=== PATIENT | female | born 1970 | race Caucasian/White ===

== ENCOUNTER → 2019-12-05 13:05 | Outpatient (BNVA) | payer OTHER, SELFPAY | PROVIDERS: PCP Internal Medicine; Referring Provider Internal Medicine; Visit Provider Internal Medicine Gastroenterology | DX: R10.32 Left lower quadrant pain (principal); R19.7 Diarrhea, unspecified; K59.00 Constipation, unspecified; K62.5 Hemorrhage of anus and rectum; K21.9 Gastro-esophageal reflux disease without esophagitis; K22.4 Dyskinesia of esophagus; M79.7 Fibromyalgia | CPT/HCPCS: 99212 ==

== ENCOUNTER 2019-12-11 10:09 | Outpatient (REF) | payer OTHER, SELFPAY | END 2019-12-11 10:10 | disposition home or self-care (01) | LOC: HO.MDS 10:09 | PROVIDERS: PCP Internal Medicine; Visit Provider Internal Medicine Pulmonary Disease | DX: J45.909 Unspecified asthma, uncomplicated (principal) | CPT/HCPCS: 96372 ==

== ENCOUNTER 2019-12-11 10:37 | Outpatient (REF) | payer OTHER, SELFPAY | END 2019-12-11 10:38 | disposition home or self-care (01) | LOC: HO.LAB 10:37 | PROVIDERS: PCP Internal Medicine; Visit Provider Internal Medicine Gastroenterology | DX: Z13.89 Encounter for screening for other disorder (principal) ==

== ENCOUNTER 2019-12-25 11:41 | Outpatient (REF) | payer OTHER, SELFPAY | END 2019-12-25 11:42 | disposition home or self-care (01) | LOC: HO.MDS 11:41 | PROVIDERS: Visit Provider Internal Medicine Pulmonary Disease | DX: J45.909 Unspecified asthma, uncomplicated (principal) | CPT/HCPCS: J2357 ==

== ENCOUNTER → 2019-12-29 09:12 | Outpatient (BNVA) | payer OTHER, SELFPAY | PROVIDERS: PCP Internal Medicine; Referring Provider Internal Medicine; Visit Provider Internal Medicine Gastroenterology | DX: K59.00 Constipation, unspecified (principal); K21.9 Gastro-esophageal reflux disease without esophagitis; K22.4 Dyskinesia of esophagus; R19.7 Diarrhea, unspecified; K86.2 Cyst of pancreas | CPT/HCPCS: 99212 ==

== ENCOUNTER 2020-01-09 | Outpatient (REF) | payer OTHER, SELFPAY | END 2020-01-09 00:01 | disposition home or self-care (01) | LOC: HO.MDS | PROVIDERS: Visit Provider Internal Medicine Pulmonary Disease | DX: J45.40 Moderate persistent asthma, uncomplicated (principal) | CPT/HCPCS: 96372; J2357 ==

== ENCOUNTER 2020-01-12 08:31 | Outpatient (REF) | payer OTHER, SELFPAY ==
[2020-01-12 10:13] LABS: Free T4 (Free Thyroxine) 0.95 ng/dL (0.71-1.85); Thyroid Stimulating Hormone 13.86 uIU/mL (0.32-4.0); Vitamin D 25-OH Total 12.8 ng/mL (>30)
== END 2020-01-12 08:32 | disposition home or self-care (01) ==
LOC: HO.LAB 08:31
PROVIDERS: PCP Internal Medicine; Visit Provider Internal Medicine
DX: E89.0 Postprocedural hypothyroidism (principal); E04.2 Nontoxic multinodular goiter; E55.9 Vitamin D deficiency, unspecified
CPT/HCPCS: 82306; 84439; 84443

== ENCOUNTER 2020-01-26 09:40 | Outpatient (REF) | payer OTHER, SELFPAY | END 2020-01-26 09:41 | disposition home or self-care (01) | LOC: HO.MDS 09:40 | PROVIDERS: Visit Provider Internal Medicine Pulmonary Disease | DX: Z13.89 Encounter for screening for other disorder (principal) ==

== ENCOUNTER 2020-01-29 | Outpatient (REF) | payer OTHER, SELFPAY | END 2020-01-29 00:01 | disposition home or self-care (01) | LOC: HO.MDS | PROVIDERS: PCP Internal Medicine; Visit Provider Internal Medicine Pulmonary Disease | DX: J45.40 Moderate persistent asthma, uncomplicated (principal) | CPT/HCPCS: 96372; J2357 ==

== ENCOUNTER 2020-02-11 | Outpatient (REF) | payer OTHER, SELFPAY | END 2020-02-11 00:01 | disposition home or self-care (01) | LOC: HO.MDS | PROVIDERS: Visit Provider Internal Medicine Pulmonary Disease | DX: J45.40 Moderate persistent asthma, uncomplicated (principal) | CPT/HCPCS: 96372; J2357 ==

== ENCOUNTER 2020-02-26 07:47 | Outpatient (REF) | payer OTHER, SELFPAY ==
[2020-02-26 09:43] LABS: CDIFF Ag Negative (Negative); CDIFF Internal ctrl Dots and bkg OK (V); CDiff Toxin Negative (Negative)
[2020-02-26 09:53] LABS: Free T4 (Free Thyroxine) < 0.40 ng/dL (0.71-1.85); Thyroid Stimulating Hormone 46.36 uIU/mL (0.32-4.0); Vitamin D 25-OH Total 11.5 ng/mL (>30)
[2020-02-26 17:08] LABS: Alanine Aminotransferase 24 U/L (0-31); Albumin Level 4.3 g/dL (3.5-5.0); Alkaline Phosphatase 64 U/L (39-117); Anion Gap 14 (12-20); Aspartate Amino Transferase 24 U/L (5-31); Bilirubin Total 0.3 mg/dL (0.0-1.0); Blood Urea Nitrogen 16 mg/dL (9-16); Calcium 8.9 mg/dL (8.4-10.2); Carbon Dioxide 26 mmol/L (22-29); Chloride 103 mmol/L (96-108); Cholesterol 253 mg/dL; Estimated Glomerular Filt Rate > 60; Glucose Random 83 mg/dL (60-115); HDL Cholesterol 60 mg/dL; LDL Cholesterol Calculated 162 mg/dl; Potassium 4.2 mmol/l (3.3-5.1); Sodium 139 mmol/L (135-145); Total Protein 7.4 g/dL (6.5-8.0); Triglycerides 159 mg/dL
[2020-02-26 17:46] LABS: Folate 11.6 ng/mL (> or = 4.0); Vitamin B12 343 pg/mL (200-900)
== END 2020-02-26 07:48 | disposition home or self-care (01) ==
LOC: HO.MDS 07:47
PROVIDERS: Absent Provider Internal Medicine Gastroenterology; PCP Internal Medicine; Referring Provider Internal Medicine; Visit Provider Internal Medicine Pulmonary Disease
DX: J45.40 Moderate persistent asthma, uncomplicated (principal); R19.7 Diarrhea, unspecified; E89.0 Postprocedural hypothyroidism; E55.9 Vitamin D deficiency, unspecified
CPT/HCPCS: 80053; 80061; 82306; 82607; 82746; 84439; 84443; 87045; 87046; 87324; 87449; 96372; J2357

== ENCOUNTER → 2020-03-02 15:14 | Outpatient (BNVA) | payer OTHER, SELFPAY | PROVIDERS: PCP Internal Medicine; Referring Provider Internal Medicine; Visit Provider Student in an Organized Health Care Education/Training Program | DX: Z76.89 Persons encountering health services in other specified circumstances (principal) ==

== ENCOUNTER → 2020-03-04 10:52 | Outpatient (BNVA) | payer OTHER, SELFPAY | PROVIDERS: PCP Internal Medicine; Referring Provider Internal Medicine; Visit Provider Internal Medicine Gastroenterology | DX: Z76.89 Persons encountering health services in other specified circumstances (principal) ==

== ENCOUNTER → 2020-04-05 08:55 | Outpatient (BNVA) | payer OTHER, SELFPAY | PROVIDERS: PCP Internal Medicine; Visit Provider Internal Medicine | DX: E89.0 Postprocedural hypothyroidism (principal); E04.2 Nontoxic multinodular goiter; E55.9 Vitamin D deficiency, unspecified | CPT/HCPCS: 99212 ==

== ENCOUNTER 2020-04-05 09:40 | Outpatient (REF) | payer OTHER, SELFPAY ==
[2020-04-05 10:59] LABS: Free T4 (Free Thyroxine) 1.98 ng/dL (0.71-1.85); Thyroid Stimulating Hormone 0.06 uIU/mL (0.32-4.0); Vitamin D 25-OH Total 15.8 ng/mL (>30)
[2020-04-06 07:57] LABS: Triiodothyronine T3 Total 146 ng/dL (76-181)
[2020-04-06 11:52] LABS: Immunoglobulin A 334 mg/dL (47-310)
[2020-04-07 11:32] LABS: Transglutaminase Ab IgG 3 U/mL
[2020-04-10 14:17] LABS: Endomysial IgA Antibody Negative (Negative)
== END 2020-04-05 09:41 | disposition home or self-care (01) ==
LOC: HO.10HDL 09:40
PROVIDERS: Visit Provider Internal Medicine
DX: E55.9 Vitamin D deficiency, unspecified (principal); E89.0 Postprocedural hypothyroidism; E04.2 Nontoxic multinodular goiter
CPT/HCPCS: 36415; 82306; 82784; 83516; 84439; 84443; 84480; 86255; 86256

== ENCOUNTER 2020-04-07 07:39 | Outpatient (REF) | payer OTHER, SELFPAY | END 2020-04-07 07:40 | disposition home or self-care (01) | LOC: HO.MDS 07:39 | PROVIDERS: PCP Internal Medicine; Visit Provider Internal Medicine Pulmonary Disease | DX: J45.40 Moderate persistent asthma, uncomplicated (principal) | CPT/HCPCS: 96372; J2357 ==

== ENCOUNTER 2020-04-21 07:27 | Outpatient (REF) | payer OTHER, SELFPAY | END 2020-04-21 07:28 | disposition home or self-care (01) | LOC: HO.MDS 07:27 | PROVIDERS: PCP Internal Medicine; Visit Provider Internal Medicine Pulmonary Disease | DX: J45.50 Severe persistent asthma, uncomplicated (principal) | CPT/HCPCS: 96372; J2357 ==

== ENCOUNTER 2020-04-21 08:13 | Outpatient (REF) | payer OTHER, SELFPAY ==
[2020-04-21 09:02] LABS: MANUAL DIFF FLAG NO
[2020-04-21 09:05] LABS: Basophils Percent Auto 0.3 % (0-2); Eosinophils Absolute Auto 0.2 X10*3/uL (0.0-0.4); Eosinophils Percent Auto 2.7 % (0-4); Hematocrit 43.1 % (37-47); Hemoglobin 14.4 g/dl (12.0-16.0); Imm Gran Abs Auto 0.02 X10*3/uL (0.00-0.03); Imm Gran Pct Auto 0.3 % (0.0-0.4); Lymphocytes Absolute Auto 1.9 X10*3/uL (1.2-4.9); Lymphocytes Percent Auto 24.6 % (20-40); Mean Corpuscular HGB Conc 33.4 g/dl (31.0-35.0); Mean Corpuscular Hemoglobin 30.6 pg (27.0-33.0); Mean Corpuscular Volume 91.5 fL (80-98); Mean Platelet Volume 10.4 fL (9.4-12.3); Monocytes Absolute Auto 0.5 X10*3/uL (0.1-1.2); Monocytes Percent Auto 6.9 % (2-11); Neutrophils Absolute Auto 5.1 X10*3/uL (2.0-8.3); Neutrophils Percent Auto 65.2 % (45-73); Platelet Count 287 X10*3/uL (160-400); Red Blood Count 4.71 X10*6/uL (4.20-5.50); Red Cell Distribution Width 12.1 % (11.0-16.0); White Blood Count 7.8 X10*3/uL (4.8-10.8)
[2020-04-21 09:48] LABS: Alanine Aminotransferase 22 U/L (0-31); Albumin Level 4.4 g/dL (3.5-5.0); Alkaline Phosphatase 62 U/L (39-117); Anion Gap 12 (12-20); Aspartate Amino Transferase 19 U/L (5-31); Bilirubin Total 0.3 mg/dL (0.0-1.0); Blood Urea Nitrogen 12 mg/dL (9-16); Carbon Dioxide 28 mmol/L (22-29); Chloride 104 mmol/L (96-108); Cholesterol 230 mg/dL; Estimated Glomerular Filt Rate > 60; Glucose Random 95 mg/dL (60-115); HDL Cholesterol 54 mg/dL; LDL Cholesterol Calculated 152 mg/dl; Potassium 4.1 mmol/L (3.3-5.1); Sodium 140 mmol/L (135-145); Total Protein 7.7 g/dL (6.5-8.0); Triglycerides 124 mg/dL
[2020-04-21 10:00] LABS: Calcium 9.6 mg/dL (8.4-10.2)
[2020-04-21 10:01] LABS: Estimated Average Glucose 100 mg/dL; Hemoglobin A1c % 5.1 %
[2020-04-21 10:06] LABS: Vitamin D 25-OH Total 14.2 ng/mL (>30)
[2020-04-22 19:33] LABS: Folate 14.7 ng/mL (> or = 4.0); Vitamin B12 416 pg/mL (200-900)
== END 2020-04-21 08:14 | disposition home or self-care (01) ==
LOC: HO.LAB 08:13
PROVIDERS: PCP Internal Medicine; Visit Provider Internal Medicine
DX: E89.0 Postprocedural hypothyroidism (principal); I10 Essential (primary) hypertension; E78.00 Pure hypercholesterolemia, unspecified
CPT/HCPCS: 36415; 80053; 80061; 82306; 82607; 82746; 83036; 85025

== ENCOUNTER → 2020-04-22 08:22 | Outpatient (BNVA) | payer OTHER, SELFPAY | PROVIDERS: PCP Internal Medicine; Visit Provider Internal Medicine Gastroenterology ==

== ENCOUNTER → 2020-04-26 08:44 | Outpatient (BNVA) | payer OTHER, SELFPAY | PROVIDERS: PCP Internal Medicine; Visit Provider Internal Medicine ==

== ENCOUNTER 2020-05-03 13:15 | Outpatient (REF) | payer OTHER, SELFPAY ==
--- NOTE | ~2020-05-03 | MM_ITS ---
EXAMINATION: MM SCREENING DIGITAL BREAST TOMOSYNTHESIS, BILATERAL CLINICAL INFORMATION: Screening. Asymptomatic. Reduction mammoplasty 2008. The lifetime risk of breast cancer based on the Tyrer-Cuzick Model is 6%. COMPARISON: Mammography: 10/15/2018, 10/02/2017, 09/05/2016 TECHNIQUE: Digital breast tomosynthesis is performed in both the craniocaudal and mediolateral oblique views along with computer-aided detection (CAD). Synthesized 2D images are generated from the tomosynthesis. FINDINGS: There are scattered areas of fibroglandular density (ACR BI-RADS breast composition Category b). There is inhomogeneous parenchymal pattern similar to prior studies. Smooth nodularity retroareolar right breast on CC tomography is stable from prior exams. There is no developing density or interval significant mass or architectural abnormality or abnormal calcifications. Skin contours are smooth. MM/MM tomosynthesis screening BI IMPRESSION: No significant changes from prior studies. ASSESSMENT: BI-RADS 2: Benign RECOMMENDATION: Routine annual mammography screening. This patient's information was entered into a reminder system with a target due date for their next mammogram.
== END 2020-05-03 13:16 | disposition home or self-care (01) ==
LOC: HO.MAMMO 13:15
PROVIDERS: PCP Internal Medicine; Visit Provider Internal Medicine
DX: Z12.31 Encounter for screening mammogram for malignant neoplasm of breast (principal)
CPT/HCPCS: 77063; 77067

== ENCOUNTER 2020-05-05 07:30 | Outpatient (REF) | payer OTHER, SELFPAY | END 2020-05-05 07:31 | disposition home or self-care (01) | LOC: HO.MDS 07:30 | PROVIDERS: Visit Provider Internal Medicine Pulmonary Disease | DX: J45.50 Severe persistent asthma, uncomplicated (principal) | CPT/HCPCS: 96372; J2357 ==

== ENCOUNTER 2020-05-19 07:30 | Outpatient (REF) | payer OTHER, SELFPAY | END 2020-05-19 07:31 | disposition home or self-care (01) | LOC: HO.MDS 07:30 | PROVIDERS: PCP Internal Medicine; Visit Provider Internal Medicine Pulmonary Disease | DX: J45.50 Severe persistent asthma, uncomplicated (principal) | CPT/HCPCS: 96372; J2357 ==

== ENCOUNTER 2020-06-03 07:33 | Outpatient (REF) | payer OTHER, SELFPAY | END 2020-06-03 07:34 | disposition home or self-care (01) | LOC: HO.MDS 07:33 | PROVIDERS: PCP Internal Medicine; Visit Provider Internal Medicine Pulmonary Disease | DX: J45.50 Severe persistent asthma, uncomplicated (principal) | CPT/HCPCS: 96372; J2357 ==

== ENCOUNTER 2020-06-17 07:30 | Outpatient (REF) | payer OTHER, SELFPAY | END 2020-06-17 07:31 | disposition home or self-care (01) | LOC: HO.MDS 07:30 | PROVIDERS: PCP Internal Medicine; Visit Provider Internal Medicine Pulmonary Disease | DX: J45.50 Severe persistent asthma, uncomplicated (principal) | CPT/HCPCS: 96372; J2357 ==

== ENCOUNTER 2020-06-18 13:35 | Outpatient (REF) | payer OTHER, SELFPAY ==
--- NOTE | ~2020-06-18 | XR_ITS ---
EXAMINATION: XR elbow LT 2V, XR elbow RT 2V CLINICAL INFORMATION: Reason for Exam M77.11 - Lateral epicondylitis, right elbow COMPARISON: None available at the time of this dictation. TECHNIQUE: Frontal lateral and oblique views of each elbow were obtained total 6 views. FINDINGS: There is no fracture or dislocation. Bone alignments are satisfactory. Surrounding soft tissues are normal. No osteolytic or osteoblastic lesion. XR/XR elbow LT 2V IMPRESSION: Normal radiograph of the elbows.
--- NOTE | ~2020-06-18 | XR_ITS ---
EXAMINATION: XR elbow LT 2V, XR elbow RT 2V CLINICAL INFORMATION: Reason for Exam M77.11 - Lateral epicondylitis, right elbow COMPARISON: None available at the time of this dictation. TECHNIQUE: Frontal lateral and oblique views of each elbow were obtained total 6 views. FINDINGS: There is no fracture or dislocation. Bone alignments are satisfactory. Surrounding soft tissues are normal. No osteolytic or osteoblastic lesion. XR/XR elbow RT 2V IMPRESSION: Normal radiograph of the elbows.
--- NOTE | ~2020-06-18 | XR_ITS ---
EXAMINATION: XR SHOULDER , RIGHT CLINICAL INFORMATION: Pain adhesive capsulitis. COMPARISON: None available at the time of this dictation. TECHNIQUE: AP external rotation, Grashey, scapular Y, and axillary views of the shoulder. FINDINGS: BONES: There is no fracture or dislocation, no osteolytic or osteoblastic lesion. JOINTS: Glenohumeral joint is properly positioned. There is mild degenerative osteoarthritis of the acromioclavicular joint. SOFT TISSUE AND INCLUDED LUNG: Normal. XR/XR shoulder RT min 2V IMPRESSION: Mild degenerative arthritis of AC joint. MRI could be utilized to assess for soft tissue derangements including possible adhesive capsulitis if clinically indicated.
--- NOTE | ~2020-06-18 | XR_ITS ---
EXAMINATION: XR SHOULDER , LEFT CLINICAL INFORMATION: Pain COMPARISON: None available at the time of this dictation. TECHNIQUE: AP external rotation, Grashey, scapular Y, and axillary views of the shoulder. FINDINGS: BONES: There is no fracture or dislocation, no osteolytic or osteoblastic lesion. JOINTS: Glenohumeral joint is properly positioned. There is mild degenerative osteoarthritis of the acromioclavicular joint. SOFT TISSUE AND INCLUDED LUNG: Normal. XR/XR shoulder LT min 2V IMPRESSION: Mild degenerative arthritis of AC joint. MRI could be utilized to assess for adhesive capsulitis.
[2020-06-18 15:23] LABS: Free T4 (Free Thyroxine) 1.01 ng/dL (0.71-1.85); Thyroid Stimulating Hormone 1.93 uIU/mL (0.32-4.0); Vitamin D 25-OH Total 11.2 ng/mL (>30)
[2020-06-19 09:01] LABS: Triiodothyronine T3 Total 89 ng/dL (76-181)
== END 2020-06-18 13:36 | disposition home or self-care (01) ==
LOC: HO.LAB 13:35
PROVIDERS: Absent Provider Internal Medicine; PCP Internal Medicine; Visit Provider Internal Medicine
DX: M77.11 Lateral epicondylitis, right elbow (principal); M77.12 Lateral epicondylitis, left elbow; M75.01 Adhesive capsulitis of right shoulder; M75.02 Adhesive capsulitis of left shoulder; E89.0 Postprocedural hypothyroidism; E04.2 Nontoxic multinodular goiter; E55.9 Vitamin D deficiency, unspecified
CPT/HCPCS: 36415; 73030; 73070; 82306; 84439; 84443; 84480

== ENCOUNTER → 2020-06-21 07:38 | Outpatient (BNVA) | payer OTHER, SELFPAY | PROVIDERS: PCP Internal Medicine; Visit Provider Internal Medicine ==

== ENCOUNTER → 2020-06-30 09:02 | Outpatient (BNVA) | payer OTHER, SELFPAY | PROVIDERS: PCP Internal Medicine; Visit Provider Orthopaedic Surgery | DX: M75.41 Impingement syndrome of right shoulder (principal); M75.42 Impingement syndrome of left shoulder | CPT/HCPCS: 20610; 99202; J1040 ==

== ENCOUNTER 2020-07-01 07:33 | Outpatient (REF) | payer OTHER, SELFPAY | END 2020-07-01 07:34 | disposition home or self-care (01) | LOC: HO.MDS 07:33 | PROVIDERS: PCP Internal Medicine; Visit Provider Internal Medicine Pulmonary Disease | DX: J45.50 Severe persistent asthma, uncomplicated (principal) | CPT/HCPCS: 96372; J2357 ==

== ENCOUNTER 2020-07-14 07:39 | Outpatient (REF) | payer OTHER, SELFPAY | END 2020-07-14 07:40 | disposition home or self-care (01) | LOC: HO.MDS 07:39 | PROVIDERS: PCP Internal Medicine; Visit Provider Internal Medicine Pulmonary Disease | DX: J45.50 Severe persistent asthma, uncomplicated (principal) | CPT/HCPCS: 96372; J2357 ==

== ENCOUNTER 2020-07-30 07:43 | Outpatient (REF) | payer OTHER, SELFPAY | END 2020-07-30 07:44 | disposition home or self-care (01) | LOC: HO.MDS 07:43 | PROVIDERS: PCP Internal Medicine; Visit Provider Internal Medicine Pulmonary Disease | DX: J45.50 Severe persistent asthma, uncomplicated (principal) | CPT/HCPCS: 96372; J2357 ==

== ENCOUNTER 2020-08-06 10:07 | Inpatient (IN) | payer OTHER, SELFPAY ==
[2020-08-06] VITALS (15 sets, daily range): BP systolic 145–214; BP diastolic 85–136; PULSE 62–88; RESP 15–22; TEMP 36.7–37.3; O2SAT 96–99; BMI 33.5; BMI 37.5
--- NOTE | ~2020-08-06 | CT_ITS ---
EXAMINATION: CT HEAD WITHOUT CONTRAST CLINICAL INFORMATION: Headache for 3 days. COMPARISON: None TECHNIQUE: Contiguous axial imaging was performed from the skull base to vertex without intravenous administration of contrast. This CT examination was performed using dose optimization techniques as appropriate, variously including the following: *Automated exposure control *Adjustment of mA and/or kV according to patient size (this includes techniques or standardized protocols for targeted exams where dose is matched to indication/reason for exam; i.e. extremities or head) *Use of iterative reconstruction technique DLP: 688 mGy-cm FINDINGS: There is no evidence of acute intracranial hemorrhage or territorial infarction. No abnormal mass effect or midline shift is seen. [place] to white matter differentiation is well preserved. No extra-axial fluid collections are identified. The ventricles are normal in size. There is no abnormal attenuation within the brain parenchyma. The osseous structures and soft tissues are normal. The mastoid air cells and visualized portions of the paranasal sinuses are well aerated. CT/CT head/brain wo con IMPRESSION: No acute intracranial process seen.
--- NOTE | ~2020-08-06 | CT_ITS ---
EXAMINATION: CT ABDOMEN AND PELVIS WITHOUT CONTRAST CLINICAL INFORMATION: Pain COMPARISON: Previous CT of the abdomen and pelvis January 2019 TECHNIQUE: Multidetector volumetric imaging was performed from the superior aspect of the liver through the pubic symphysis. Sagittal and coronal reformatted images were obtained on the technologist's workstation. This CT examination was performed using dose optimization techniques as appropriate, variously including the following: *Automated exposure control *Adjustment of mA and/or kV according to patient size (this includes techniques or standardized protocols for targeted exams where dose is matched to indication/reason for exam; i.e. extremities or head) *Use of iterative reconstruction technique DLP: 807 mGy-cm FINDINGS: LUNG BASES: The visualized lung bases are unremarkable. LIVER, GALLBLADDER, AND BILIARY TREE: The liver is normal in size, shape, and attenuation. No focal hepatic lesion or biliary ductal dilatation is present. The gallbladder has been removed. PANCREAS: There is fatty infiltration adjacent to the head of the pancreas. This is similar to previous exam January 2019. The pancreas is otherwise unremarkable. SPLEEN: Unremarkable. ADRENAL GLANDS: Unremarkable. KIDNEYS AND URETERS: There are small bilateral renal stones. Kidneys are otherwise unremarkable. BLADDER: Not optimally distended. GASTROINTESTINAL TRACT: The colon is relatively distended and filled with fluid and stool. There is a slight caliber change of the distal sigmoid colon. The distal sigmoid colon appears less dilated Question of mild wall thickening. Appearance is questionable colitis and partial large bowel obstruction. The stomach is slightly distended and fluid-filled. The distal thoracic esophagus is slightly distended and fluid-filled. The small bowel does not appear dilated. The appendix is not seen and has probably been removed. ABDOMINAL WALL: No significant hernia is appreciated. LYMPH NODES: There are small retroperitoneal lymph nodes. No enlarged lymph nodes are seen. VASCULAR: Unremarkable. PELVIC VISCERA: The uterus appears to have been removed. No pelvic mass is seen. OSSEOUS STRUCTURES: Unremarkable. CT/CT abdomen pelvis wo con IMPRESSION: Distended fluid and stool-filled colon. There is a slight caliber change of the distal sigmoid colon which does not appear as dilated as questionable wall thickening. Appearance is suggestive of colitis and partial obstruction. Small bilateral renal stones. Stranding of the fat adjacent to the head of the pancreas similar to previous exams..
--- NOTE | ~2020-08-06 | US_ITS ---
EXAMINATION: ULTRASOUND RENAL DOPPLER CLINICAL INFORMATION: Chest and hypertension COMPARISON: None TECHNIQUE: Routine grayscale imaging and Doppler evaluation of both kidneys and abdominal aorta was performed. FINDINGS: The right kidney measures 13.2 cm in length, 5.02 cm in AP and 5.1 cm wide. There is normal cortical thickness. No echogenic stones, cyst or hydronephrosis seen. Left kidney measures 12.1 cm in length, 5.52 cm in AP and 5.3 cm wide. There is mild hydronephrosis left pelvis. On renal Doppler evaluation, Right kidney: Proximal renal artery velocity measures 38.9 cm/second, mid segment measures 99.5 cm/second, distal segment measures 60.2 cm/second. Renal aortic ratio is 1.0. Average segmental resistive index is 0.6. No suggestion for renal artery stenosis. Mid abdominal aorta velocity measures 98.3 cm/second. Left kidney: Proximal renal artery velocity measures 95.2 cm/second, mid segment measures 43.6 cm/second, distal segment measures 70 cm/second. Renal aortic ratio is 0.96. Average resistive index measures 0.56. No suggestion for renal artery stenosis. US/US renal doppler IMPRESSION: Mild prominence of left renal pelvis question mild hydronephrosis was explained pelvis. Normal bilateral renal Doppler exam
--- NOTE | 2020-08-06 11:03 | ED_ITS ---
HPI - General Adult General Chief complaint: General Medical Stated complaint: HIGH BP Time Seen by Provider: 08/06/20 11:03 Source: patient and old records reviewed Mode of arrival: ambulatory Limitations: no limitations History of Present Illness HPI narrative: 49 yo female with asthma, IBS, HTN, HLD, GERD on metoprolol, lisinopril/HCTZ, hydralazine for her blood pressures no new changes and compliant with low salt diet comes in with c/o headaches and HTN up to 170s at home, no trauma, the entire head is painful, no AC therapy, no fevers, felt her L side of her body was hot and melty yesterday but no weakness, reported hx of TIA complaint: headache, HTN Onset (ago): week(s) Location: head Radiation: non-radiation Severity: severe Quality: aching, crushing, dull and constant Pain Consistency: constant Relieving factors: none Exacerbating factors: none Associated symptoms: other (weird feeling in left side of body) Treatments prior to arrival: none Related Data Home Medications Medication Instructions Recorded Confirmed benzonatate 200 mg capsule 200 mg PO TID PRN 12/05/19 06/21/20 fluticasone 232 mcg-salmeterol 14 1 inh INHALATION BID 12/05/19 06/21/20 mcg/actuation breath activated powdr montelukast 10 mg tablet 10 mg PO BEDTIME 12/05/19 06/21/20 albuterol sulfate 90 mcg/actuation 2 puff INHALATION Q4-6H PRN 12/15/19 06/21/20 aerosol inhaler loratadine 10 mg tablet 10 mg PO DAILY 12/15/19 06/21/20 Previous Rx's Medication Instructions Recorded famotidine 20 mg tablet 20 mg PO BEDTIME PRN 30 Days #30 12/31/19 tab hydralazine 25 mg tablet 25 mg PO BID #180 tab 02/17/20 lisinopril 20 1 tab PO DAILY #90 tab 02/17/20 mg-hydrochlorothiazide 25 mg tablet alprazolam 0.25 mg tablet 0.25 mg PO DAILY #2 tab 03/02/20 bisacodyl 5 mg tablet,delayed 5 mg PO ONCE 1 Days #2 tab 03/04/20 release peg 3350-electrolytes 236 240 ml PO Q10M #4000 ml 03/04/20 gram-22.74 gram-6.74 gram-5.86 gram solution omalizumab 150 mg/mL subcutaneous 300 mg SUBCUT Q2W #4 ml 03/25/20 syringe bisacodyl 5 mg tablet,delayed 10 mg PO ONCE 1 Days #2 tab 03/26/20 release polyethylene glycol 3350 17 238 g PO ONCE 1 Days #238 g 03/26/20 gram/dose oral powder metoprolol tartrate 50 mg tablet 50 mg PO BID #60 tab 04/19/20 omeprazole 20 mg capsule,delayed 20 mg PO DAILY 30 Days #30 cap 04/22/20 release polyethylene glycol 3350 17 17 g PO .COMPLEX 30 Days #238 g 04/22/20 gram/dose oral powder rifaximin 550 mg tablet 550 mg PO TID 14 Days #42 tab 04/22/20 levothyroxine 150 mcg tablet 150 mcg PO DAILY 30 Days #30 tab 05/20/20 amitriptyline 25 mg tablet 25 mg PO BEDTIME 30 Days #30 tab 05/23/20 cholecalciferol (vitamin D3) 50 50 mcg PO DAILY 30 Days #30 cap 06/21/20 mcg (2,000 unit) capsule ergocalciferol (vitamin D2) 1,250 1,250 mcg PO QWEEK 56 Days #8 cap 06/21/20 mcg (50,000 unit) capsule meloxicam 15 mg tablet 15 mg PO DAILY #20 tab 06/22/20 Allergies Allergy/AdvReac Type Severity Reaction Status Date / Time pineapple [PINEAPPLE] Allergy Severe ANAPHYLAXIS Verified 06/30/20 09:13 aspirin [ASA] Allergy Mild UPSET Verified 06/30/20 09:13 STOMACH levofloxacin [From Levaquin] Allergy Mild SWELLING,RASH, Verified 06/30/20 09:13 rash oxycodone [From Percocet] Allergy Mild SOB,RASH Verified 06/30/20 09:13 acetaminophen [Percocet] Allergy Unknown rash Verified 06/30/20 09:13 Iodinated Contrast Media Allergy Unknown SOB,RASH Verified 06/30/20 09:13 [IV Dye, Iodine Containing] Review of Systems Review of Systems: Constitutional : No Fever, No Chills, No Fatigue ENT/Mouth : No sore throat, No Rhinorrhea Eyes: No Eye Pain, No Swelling, No Redness Cardiovascular : No Chest Pain, No SOB, No Dyspnea on Exertion Respiratory : No Cough, No Sputum Gastrointestinal : No Nausea, No Vomiting, No Diarrhea, No abdominal Pain Genitourinary : No Dysuria, No Urinary Frequency, No Hematuria, Musculoskeletal : No joint pain, No Myalgias, No Joint Swelling Skin : No Skin Lesions, No rash Neuro : No Weakness, No Numbness, No Dizziness, positive Headache Psych : No Anxiety/Panic, No Depression Heme/Lymph: No Bruising, No Bleeding,No Lymphadenopathy Endocrine : No Polyuria, No Polydipsia All other systems reviewed and are negative [facility] Past Medical History Attestation statement: The following information was validated with the patient. Medical History Allergic rhinitis Asthma Constipation Esophageal spasm Fibromyalgia GERD (gastroesophageal reflux disease) History of MO (myocardial infarction) History of migraine headaches History of TIA (transient ischemic attack) Hypercholesterolemia Hypertension Hypothyroidism Kidney stones Multinodular thyroid Obesity (BMI 30-39.9) Ovarian cyst Pancreatic cyst Rectal bleeding Sciatic nerve pain Thyroid nodule Vitamin D deficiency Surgical History H/O lithotripsy H/O: hysterectomy History of cholecystectomy (~2003) History of colonoscopy (~11/16/19) History of kidney surgery History of thyroidectomy (~11/2018) Hx of appendectomy Hx of bilateral breast reduction surgery Family History Family History Father Family history of high blood pressure History of high cholesterol Mother History of diabetes mellitus Family history of high blood pressure Family history of asthma History of fibromyalgia Liver disease Social History Social History Household Members: Children Alcohol intake: never Patient Tobacco Use Status: Never used Tobacco Years Smoked: 3 Use of substances other than those prescribed or required for medical reasons: No Substance Use Type: Marijuana Advance Directives: No Advance Directives Information Provided: Yes Current occupational status: disabled Physical Exam Vital Signs: Vital Signs: Last Vital Signs Temp 98.2 F 08/06/20 10:57 Pulse 74 08/06/20 13:07 Resp 22 H 08/06/20 11:52 BP 169/101 H 08/06/20 13:07 Pulse Ox 98 08/06/20 10:57 Body Mass Index 33.5 Appearance: Alert. Oriented X3. in pain mild acute distress. Anxious Eyes: Pupils equal, round and reactive to light. ENT: Pharynx normal. Neck: Normal inspection. Neck supple. CVS: Normal heart rate and rhythm. Pulses normal. Respiratory: No respiratory distress. Breath sounds normal. Abdomen: Soft and non-tender. Skin: Skin warm and dry. Normal skin color. Normal skin turgor. Extremities: No lower extremity edema. No calf ttp Neuro: Oriented X 3. No motor deficit. No sensory deficit. normal neuro exam, normal gait Course Course Course Narrative: BP went down with labetalol to 160s still c/o headache and patient is crying possible headache causing pain at this time will try reglan/benadry/toradol for headache then reassess medications for headache given BP remains 184/105 with persistent headache no focal deficits at this time will need admission and repeat labetalol Medical Decision Making MDM Narrative Medical decision making narrative: 49 yo female with asthma, IBS, HTN, HLD, GERD on metoprolol, lisinopril/HCTZ, hydralazine for her blood pressures no new changes and compliant with low salt diet comes in with c/o headaches and HTN up to 170s at home, no trauma, the entire head is painful, no AC therapy, no fevers, felt her L side of her body was hot and melty yesterday but no [place], reported hx of TIA she has no focal deficits on my exam at this time she has no fevers, no AC therapy given duration and onset doubt NURSING PROFESSOR infection or SAH, could be headaches causing HTN or HTN causing headaches, labs, CT head, IV morphine/ativan for pain, dispo per results and findings, could increase her metoprolol to 75mg if necessary Lab Data Result diagrams: 08/06/20 11:43 08/06/20 11:43 Labs: Lab Results 08/06/20 08/06/20 08/06/20 Range/Units 11:43 11:43 11:43 WBC 9.3 (4.8-10.8) X10*3/uL RBC 4.61 (4.20-5.50) X10*6/uL Hgb 14.1 (12.0-16.0) g/dl Hct 42.0 (37-47) % MCV 91.1 (80-98) fL MCH 30.6 (27.0-33.0) pg MCHC 33.6 (31.0-35.0) g/dl RDW 13.2 (11.0-16.0) % Plt Count 260 (160-400) X10*3/uL MPV 9.9 (9.4-12.3) fL Immature Gran % (Auto) 0.3 (0.0-0.4) % Neut % (Auto) 76.0 H (45-73) % Lymph % (Auto) 15.8 L (20-40) % [place] % (Auto) 6.1 (2-11) % Eos % (Auto) 1.5 (0-4) % Baso % (Auto) 0.3 (0-2) % Lymph # (Auto) 1.5 (1.2-4.9) X10*3/uL [place] # (Auto) 0.6 (0.1-1.2) X10*3/uL Eos # (Auto) 0.1 (0.0-0.4) X10*3/uL Baso # (Auto) 0.0 (0.0-0.2) X10*3/uL Abs Immat Gran (auto) 0.03 (0.00-0.03) X10*3/uL Absolute Neuts (auto) 7.1 (2.0-8.3) X10*3/uL Absolute Nucleated RBC 0.000 (0.0-0.012) X10*3/uL Nucleated RBC % (auto) 0.0 (0.0-0.2) /100WBC PT 11.2 (10.8-13.0) SEC INR 0.9 (0.9-1.1) APTT 37.1 (24.1-38.0) SEC Sodium 140 (135-145) mmol/L Potassium 4.2 (3.3-5.1) mmol/L Chloride 105 (96-108) mmol/L Carbon Dioxide 28 (22-29) mmol/L Anion Gap 11 L (12-20) BUN 15 (9-16) mg/dL Creatinine 0.73 (0.5-1.4) mg/dL Estim Creat Clear Calc 102.5 Estimated GFR > 60 Random Glucose 102 (60-115) mg/dL Calcium 9.2 (8.4-10.2) mg/dL Magnesium 2.1 (1.6-2.6) mg/dL Total Bilirubin 0.5 (0.0-1.0) mg/dL Direct Bilirubin 0.2 (0.0-0.5) mg/dL AST 17 (5-31) U/L ALT 17 (0-31) U/L Alkaline Phosphatase 80 D (39-117) U/L Total Protein 7.7 (6.5-8.0) g/dL Albumin 4.4 (3.5-5.0) g/dL ECG Data Attestation: I personally reviewed and interpreted this ECG as follows: Interpretation: Rate: 69 Rhythm: NSR [place]: normal Normal P waves. Normal [place]OUNG. Normal QRS complex. ST T wave : normal no ROSANNE qTC: normal prior studies: no acute ischemia The study has been interpreted contemporaneously by me. . Critical Care Time Critical Care Time Critical Care Time: Yes Total Critical Care Time: 35 Attestation: repeat IV labetalol, repeat assessments I attest to this time spent taking care of the patient Discharge Plan Discharge Clinical Impression: Hypertensive urgency Headache Qualifiers: Headache type: unspecified Headache chronicity pattern: acute headache Intractability: intractable Qualified Code(s): R51.9 - Headache, unspecified Patient Disposition: Admitted As Inpatient
--- NOTE | 2020-08-06 11:11 | ECG_ITS ---
Test Reason : HIGH BP Blood Pressure : / mmHG Vent. Rate : 069 BPM Atrial Rate : 069 BPM P-R Int : 178 ms QRS Dur : 082 ms QT Int : 430 ms P-R-T Axes : 026 008 027 degrees QTc Int : 460 ms Normal sinus rhythm Normal ECG When compared with ECG of 11-MAR-2019 07:40, No significant change was found Referred By: Meg Hills Electronically Signed By:KAYLIN MCKEON MD
[2020-08-06 11:47] LABS: MANUAL DIFF FLAG NO
[2020-08-06 11:49] LABS: Basophils Percent Auto 0.3 % (0-2); Eosinophils Absolute Auto 0.1 X10*3/uL (0.0-0.4); Eosinophils Percent Auto 1.5 % (0-4); Hemoglobin 14.1 g/dl (12.0-16.0); Imm Gran Abs Auto 0.03 X10*3/uL (0.00-0.03); Imm Gran Pct Auto 0.3 % (0.0-0.4); Lymphocytes Absolute Auto 1.5 X10*3/uL (1.2-4.9); Lymphocytes Percent Auto 15.8 % (20-40); Mean Corpuscular HGB Conc 33.6 g/dl (31.0-35.0); Mean Corpuscular Hemoglobin 30.6 pg (27.0-33.0); Mean Corpuscular Volume 91.1 fL (80-98); Mean Platelet Volume 9.9 fL (9.4-12.3); Monocytes Absolute Auto 0.6 X10*3/uL (0.1-1.2); Monocytes Percent Auto 6.1 % (2-11); Neutrophils Absolute Auto 7.1 X10*3/uL (2.0-8.3); Platelet Count 260 X10*3/uL (160-400); Red Blood Count 4.61 X10*6/uL (4.20-5.50); Red Cell Distribution Width 13.2 % (11.0-16.0); White Blood Count 9.3 X10*3/uL (4.8-10.8)
[2020-08-06] MEDS: ondansetron HCL 4 MG/2 ML VIAL IVPUSH (11:52)
[2020-08-06] MEDS: Morphine Sulfate 4 MG/ML CARTRIDGE IVPUSH (11:52)
[2020-08-06] MEDS: LORazepam 2 MG/ML VIAL 0.5 MG IVPUSH (11:53)
[2020-08-06 11:58] LABS: INTERNATIONAL NORM RATIO 0.9 (0.9-1.1); Prothrombin Time 11.2 SEC (10.8-13.0)
[2020-08-06 12:00] LABS: Partial Thromboplastin Time 37.1 SEC (24.1-38.0)
[2020-08-06 12:10] LABS: Alanine Aminotransferase 17 U/L (0-31); Albumin Level 4.4 g/dL (3.5-5.0); Alkaline Phosphatase 80 U/L (39-117); Anion Gap 11 (12-20); Aspartate Amino Transferase 17 U/L (5-31); Bilirubin Direct 0.2 mg/dL (0.0-0.5); Bilirubin Total 0.5 mg/dL (0.0-1.0); Blood Urea Nitrogen 15 mg/dL (9-16); Calcium 9.2 mg/dL (8.4-10.2); Carbon Dioxide 28 mmol/L (22-29); Chloride 105 mmol/L (96-108); Creatinine Clr Calc Pharmacy 102.5; Estimated Glomerular Filt Rate > 60; Glucose Random 102 mg/dL (60-115); Magnesium 2.1 mg/dL (1.6-2.6); Potassium 4.2 mmol/L (3.3-5.1); Sodium 140 mmol/L (135-145); Total Protein 7.7 g/dL (6.5-8.0)
[2020-08-06] MEDS: Labetalol HCL 100 MG/20 ML VIAL 10 MG IVPUSH ×3 (13:07→17:16)
[2020-08-06] MEDS: diphenhydrAMINE HCL 50 MG/ML VIAL 25 MG IVPUSH (14:39)
[2020-08-06] MEDS: Ketorolac Tromethamine 30 MG/ML VIAL IVPUSH (14:40)
[2020-08-06] MEDS: Metoclopramide HCl 10 MG/2 ML VIAL IVPUSH (14:40)
[2020-08-06 16:09] LABS: IDNOW Serial# 9DD0AD1C
[2020-08-06 16:10] LABS: COVID-19 Test Negative (Negative)
--- NOTE | 2020-08-06 16:42 | PHA.MEDREC ---
Pharmacy Consult ? Medication Reconciliation Pharmacy has completed the medication reconciliation. Patient's report medications do not match with claim history. Called patient's pharmacy [facility] in [facility] to verify that the claim history. Patient reports see need refills for some of her medications that needs a new prescription. The following issues were found while completing a medication reconciliation, that need to be addressed. Patient reports taking the following medications but have not been filled recently: - Lisinopril/HCTZ last filled 01/20/2020 for 30 days - Hydralazine 25mg lasted filled 10/14/2019 for 90 days - [id number] last filled 10/14/2019 for 30 days - Fluticasone 232mcg/Salmeterol 14mcg Inhaler filled 09/2019, reports taking PRN Rose Robles, MylaD
--- NOTE | 2020-08-06 17:00 | PM.IMHP ---
History of Present Illness Date of Service: 08/06/20 Chief Complaint: Hypertension, headache 49-year-old female with past medical history of hypertension, fibromyalgia, hypothyroidism, history of DE, history of TIA among others who presents to the hospital with complaints of headache, elevated blood pressure. Patient reports that she started having a headache this all over her head about 3 days ago and has been checking her blood pressure which has been in 180s over 110s to 130s. Patient reports midsternal chest pain that is shooting in sensation, as well as epigastric pain that feels like burning. Each 1 started about 2 days ago, on and off, lasting about 10-20 minutes. Nonradiating. Patient denies any abdominal pain but has nausea no vomiting. No urinary symptoms. Patient has no fever or chills. She is complaining of mild shortness of breath with no orthopnea or PND. She is also complaining of numbness on the left side of her mouth, no slurred speech, numbness in her left arm. She is feeling generally weak with no specific weakness in arms or legs. She has no urinary symptoms and no lower extremity edema. Although patient reports compliance with her medication, pharmacy review showed that she has not filled any of her blood pressure medications since September of 2019 and some in December of 2019 with no refills. On arrival to the ED patient's blood pressure noted to be 206/127, temp of 99.1?, heart rate of 80, respiratory rate of 19, satting 99% on room air For WBC count of 9.3, hemoglobin of 14.1 otherwise unremarkable. EKG shows normal sinus rhythm with no significant change CT head shows no acute intracranial process Patient's past medical history as below long confirmed with patient Review of Systems Review of Systems: Yes all other systems are reviewed and are negative [facility] Medical History Allergic rhinitis Asthma Constipation Esophageal spasm Fibromyalgia GERD (gastroesophageal reflux disease) History of DE (myocardial infarction) History of migraine headaches History of TIA (transient ischemic attack) Hypercholesterolemia Hypertension Hypothyroidism Kidney stones Multinodular thyroid Obesity (BMI 30-39.9) Ovarian cyst Pancreatic cyst Rectal bleeding Sciatic nerve pain Thyroid nodule Vitamin D deficiency Family History Father Family history of high blood pressure History of high cholesterol Mother History of diabetes mellitus Family history of high blood pressure Family history of asthma History of fibromyalgia Liver disease Surgical History H/O lithotripsy H/O: hysterectomy History of cholecystectomy (~2003) History of colonoscopy (~11/16/19) History of kidney surgery History of thyroidectomy (~11/2018) Hx of appendectomy Hx of bilateral breast reduction surgery Social History Household Members: Children Alcohol intake: never Patient Tobacco Use Status: Never used Tobacco Years Smoked: 3 Use of substances other than those prescribed or required for medical reasons: No Substance Use Type: Marijuana Advance Directives: No Advance Directives Information Provided: Yes Current occupational status: disabled Meds Allergies Allergy/AdvReac Type Severity Reaction Status Date / Time pineapple [PINEAPPLE] Allergy Severe ANAPHYLAXIS Verified 06/30/20 09:13 aspirin [ASA] Allergy Mild UPSET Verified 06/30/20 09:13 STOMACH levofloxacin [From Levaquin] Allergy Mild SWELLING,RASH, Verified 06/30/20 09:13 rash oxycodone [From Percocet] Allergy Mild SOB,RASH Verified 06/30/20 09:13 acetaminophen [Percocet] Allergy Unknown rash Verified 06/30/20 09:13 Iodinated Contrast Media Allergy Unknown SOB,RASH Verified 06/30/20 09:13 [IV Dye, Iodine Containing] Active Medications: Current Medications Generic Name Dose Route Start Last Admin Trade Name Freq PRN Reason Stop Dose Admin Hydralazine HCl 5 mg 08/06/20 16:59 Hydralazine Hcl 20 Mg/Ml Vial IVPUSH Q6H PRN SBP>180, DBP >100 Protocol Pharmacy Consult 1 each 08/06/20 15:30 Consult Rx Perform Med Rec MISCELLANE ONCE PRN Consult order Home Medications Medication Instructions Recorded Confirmed Last Taken Type fluticasone 232 mcg-salmeterol 14 1 inh INHALATION BID PRN 12/05/19 08/06/20 Unknown History mcg/actuation breath activated powdr montelukast 10 mg tablet 10 mg PO BEDTIME 12/05/19 08/06/20 08/05/20 History albuterol sulfate 90 mcg/actuation 2 puff INHALATION Q4-6H PRN 12/15/19 08/06/20 Unknown History aerosol inhaler polyethylene glycol 3350 [Miralax] 17 g PO Q2D 08/06/20 08/06/20 08/05/20 History sucralfate 1 tab PO BID 08/06/20 08/06/20 08/05/20 History Physical Exam Vital Signs and Narrative: Vital Signs: Last Vital Signs Temp 98.2 F 08/06/20 16:39 Pulse 62 08/06/20 16:39 Resp 18 08/06/20 16:39 BP 188/108 H 08/06/20 16:39 Pulse Ox 96 08/06/20 16:39 Body Mass Index 33.5 Const: General: cooperative and no acute distress Orientation/consciousness: patient oriented x3 Eyes: Other: No visual defect General: appearance normal, both eyes and all related structures Visual Gupta: normal visual gupta by confrontation Resp: Effort & Inspection: normal respiratory effort and able to speak in complete sentences Cardio: Rate: regular rate Rhythm: regular rhythm GI: Palpation (GI): Soft to palpation Auscultation: normal bowel sounds Skin: General skin exam: no rashes or lesions noted Neuro: Other: Strength 5/5 in all extremities, no slurred speech, no neurological deficits noted General: patient oriented x3 Cognition (Neuro): normal cognition Extrem: General: Yes normal to inspection and Yes no pedal edema Results Labs CBC and Chem 7: 08/06/20 11:43 08/06/20 11:43 Labs: Laboratory Results - last 24 hr 08/06/20 08/06/20 08/06/20 11:43 11:43 11:43 MCV 91.1 MCH 30.6 MCHC 33.6 RDW 13.2 Plt Count 260 MPV 9.9 Immature Gran % (Auto) 0.3 Neut % (Auto) 76.0 H Lymph % (Auto) 15.8 L [place] % (Auto) 6.1 Eos % (Auto) 1.5 Baso % (Auto) 0.3 Lymph # (Auto) 1.5 [place] # (Auto) 0.6 Eos # (Auto) 0.1 Baso # (Auto) 0.0 Abs Immat Gran (auto) 0.03 Absolute Neuts (auto) 7.1 Absolute Nucleated RBC 0.000 Nucleated RBC % (auto) 0.0 PT 11.2 INR 0.9 APTT 37.1 Anion Gap 11 L Estim Creat Clear Calc 102.5 Estimated GFR > 60 Random Glucose 102 Calcium 9.2 Magnesium 2.1 Total Bilirubin 0.5 Direct Bilirubin 0.2 AST 17 ALT 17 Alkaline Phosphatase 80 D Total Protein 7.7 Albumin 4.4 COVID-19 ([place]) COVID-19 Clin Com 08/06/20 15:43 MCV MCH MCHC RDW Plt Count MPV Immature Gran % (Auto) Neut % (Auto) Lymph % (Auto) [place] % (Auto) Eos % (Auto) Baso % (Auto) Lymph # (Auto) [place] # (Auto) Eos # (Auto) Baso # (Auto) Abs Immat Gran (auto) Absolute Neuts (auto) Absolute Nucleated RBC Nucleated RBC % (auto) PT INR APTT Anion Gap Estim Creat Clear Calc Estimated GFR Random Glucose Calcium Magnesium Total Bilirubin Direct Bilirubin AST ALT Alkaline Phosphatase Total Protein Albumin COVID-19 ([place]) Negative COVID-19 Clin Com See Note Imaging Radiologist's Impressions: Impressions Head CT 08/06/20 11:11 IMPRESSION: No acute intracranial process seen. Assessment and Plan (1) Hypertensive urgency: Status: Acute (2) Headache: Qualifiers: Headache chronicity pattern: acute headache Headache type: unspecified Intractability: intractable Qualified Code(s): R51.9 - Headache, unspecified Status: Acute (3) Atypical chest pain: Status: Acute 49-year-old female with past medical history of hypertension who presents to the hospital with complaints of a headache and elevated blood pressure. # hypertensive urgency - most likely secondary to medication noncompliance as patient has not filled her medications since 2019 - CT of the head negative for any hemorrhagic stroke - patient is complaining of numbness around the mouth, discussed with Neurology, possibly a small ischemic event - at this time will try to bring her blood pressure to map of 100-110 - p.r.n. hydralazine - resume her home medications - will obtain troponin to rule out any cardiac damage - no RUBY # atypical chest pain - complaints of burning and stabbing in the midsternal and epigastric region - EKG shows no acute changes suggestive of ACS - will obtain troponin - monitor on telemetry # headache - secondary to hypertension - treat high blood pressure - Tylenol p.r.n. # hypothyroidism - continue levothyroxine # asthma - no acute exacerbation - continue home inhalers DVT prophylaxis: Lovenox
[2020-08-06] MEDS: hydrALAZINE HCl 20 MG/ML VIAL 5 MG IVPUSH (17:46)
[2020-08-06 18:10] LABS: B Type Natriuretic Peptide 33 pg/mL (<100); Troponin-I High Sensitivity < 3.5 ng/L (<3.5-17.0)
[2020-08-06] MEDS: hydrALAZINE HCl 25 MG TABLET PO (20:42)
[2020-08-06] MEDS: Acetaminophen 325 MG TABLET 650 MG PO (20:42)
[2020-08-06] MEDS: Metoprolol Tartrate 50 MG TABLET PO (20:42)
[2020-08-06] MEDS: Sucralfate 1 GM TABLET PO (20:42)
[2020-08-06] MEDS: Montelukast Sodium 10 MG TABLET PO (20:42)
[2020-08-06] MEDS: Enoxaparin Sodium 40 MG/0.4 ML SYRINGE SUBCUT (20:43)
[2020-08-06] MEDS: 0.9 % Sodium Chloride Flush 3 ML SYRINGE IVFLUSH (20:44)
[2020-08-07] VITALS (9 sets, daily range): BP systolic 144–179; BP diastolic 70–109; PULSE 67–77; RESP 16–18; TEMP 35.5–36.8; O2SAT 94–98
[2020-08-07] MEDS: Acetaminophen 325 MG TABLET 650 MG PO (02:56)
[2020-08-07] MEDS: Omeprazole 20 MG CAPSULE.DR PO (06:40)
[2020-08-07 06:45] LABS: MANUAL DIFF FLAG NO
[2020-08-07 06:59] LABS: Basophils Percent Auto 0.4 % (0-2); Eosinophils Absolute Auto 0.2 X10*3/uL (0.0-0.4); Hematocrit 42.5 % (37-47); Imm Gran Abs Auto 0.02 X10*3/uL (0.00-0.03); Imm Gran Pct Auto 0.3 % (0.0-0.4); Lymphocytes Absolute Auto 2.7 X10*3/uL (1.2-4.9); Lymphocytes Percent Auto 34.7 % (20-40); Mean Corpuscular HGB Conc 32.9 g/dl (31.0-35.0); Mean Corpuscular Hemoglobin 30.4 pg (27.0-33.0); Mean Corpuscular Volume 92.2 fL (80-98); Monocytes Absolute Auto 0.5 X10*3/uL (0.1-1.2); Monocytes Percent Auto 6.4 % (2-11); Neutrophils Absolute Auto 4.3 X10*3/uL (2.0-8.3); Neutrophils Percent Auto 56.2 % (45-73); Platelet Count 260 X10*3/uL (160-400); Red Blood Count 4.61 X10*6/uL (4.20-5.50); Red Cell Distribution Width 13.4 % (11.0-16.0); White Blood Count 7.7 X10*3/uL (4.8-10.8)
[2020-08-07 07:24] LABS: Anion Gap 15 (12-20); Blood Urea Nitrogen 13 mg/dL (9-16); Calcium 9.4 mg/dL (8.4-10.2); Carbon Dioxide 26 mmol/L (22-29); Chloride 102 mmol/L (96-108); Estimated Glomerular Filt Rate > 60; Glucose Random 87 mg/dL (60-115); Potassium 4.2 mmol/L (3.3-5.1); Sodium 139 mmol/L (135-145)
--- NOTE | 2020-08-07 08:31 | MHC.CM.PN ---
PATIENT IS FULLY INDEPENDENT WITH HER ADLS. SHE DROVE SELF HERE, AND WILL TRANSPORT SELF HOME AT DISCHARGE. NO DME FOR AMBULATION AND NO [facility] SERVICES. SHE DOES USE INHALERS, AND REPORTS THAT SHE HAS AMPLE SUPPLY. HCP IS HER MOTHER AND A COPY IS REQUESTED. CASE MANAGEMENT FOLLOWING FOR DISCHARGE NEEDS.
[2020-08-07] MEDS: Levothyroxine Sodium 150 MCG TABLET PO (08:39)
[2020-08-07] MEDS: Metoprolol Tartrate 50 MG TABLET PO ×2 (08:39→21:23)
[2020-08-07] MEDS: hydroCHLOROthiazide 25 MG TABLET PO (08:39)
[2020-08-07] MEDS: Sucralfate 1 GM TABLET PO ×2 (08:39→21:23)
[2020-08-07] MEDS: lisinopriL 20 MG TABLET PO (08:39)
[2020-08-07] MEDS: hydrALAZINE HCl 25 MG TABLET PO (08:39)
[2020-08-07] MEDS: hydrALAZINE HCl 20 MG/ML VIAL 5 MG IVPUSH ×2 (08:40→16:50)
[2020-08-07] MEDS: 0.9 % Sodium Chloride Flush 3 ML SYRINGE IVFLUSH ×2 (08:45→16:50)
[2020-08-07] MEDS: Butalb/Acetamin/Caff 50/325/40 TABLET 1 TAB PO ×2 (09:08→11:48)
[2020-08-07] MEDS: Morphine Sulfate 4 MG/ML CARTRIDGE IVPUSH (13:25)
[2020-08-07] MEDS: ondansetron HCL 4 MG/2 ML VIAL IVPUSH (13:28)
--- NOTE | 2020-08-07 13:59 | P.CNNE_ITS ---
History of Present Illness Data of Consult Service Date: 08/07/20 Primary Care Provider: Tommy Smith MD 49 years old woman with past medical history of migraine and hypertension who came to hospital with complaint of headache and high blood pressure. She said that she was having headache for few days and usually migraines were not that frequent. She checked her blood pressure and noted to be on 170-180 systolic range in came to hospital. At 1 point she was also having a numb feeling left side of her face and arm. Now she was feeling much more comfortable. There was no associated change in mental status cold or fever or chills. Review of Systems Review of Systems: No recent cold or flu-like illness. [facility] Past Medical History Medical History Allergic rhinitis Asthma Constipation Esophageal spasm Fibromyalgia GERD (gastroesophageal reflux disease) History of WI (myocardial infarction) History of migraine headaches History of TIA (transient ischemic attack) Hypercholesterolemia Hypertension Hypothyroidism Kidney stones Multinodular thyroid Obesity (BMI 30-39.9) Ovarian cyst Pancreatic cyst Rectal bleeding Sciatic nerve pain Thyroid nodule Vitamin D deficiency Family History Family History Father Family history of high blood pressure History of high cholesterol Mother History of diabetes mellitus Family history of high blood pressure Family history of asthma History of fibromyalgia Liver disease Surgical History Surgical History H/O lithotripsy H/O: hysterectomy History of cholecystectomy (~2003) History of colonoscopy (~11/16/19) History of kidney surgery History of thyroidectomy (~11/2018) Hx of appendectomy Hx of bilateral breast reduction surgery Social History Social History Household Members: None Housing: House Alcohol intake: never Patient Tobacco Use Status: Never used Tobacco Years Smoked: 3 Use of substances other than those prescribed or required for medical reasons: No Substance Use Type: Marijuana Currently Displaying Signs/Symptoms of Drug Intoxication Withdrawal: No Have you been hit, kicked, punched, or otherwise hurt by someone within the past year? If so, by whom?: No Do you feel safe in your current relationship?: No Current Relationship Is there a partner from a previous relationship who is making you feel unsafe now?: No Are you made to feel afraid or neglected: No Spiritual Healthcare Practices: n/a Yarsani Healthcare Practices: n/a Cultural Healthcare Practices: n/a Advance Directives: No Advance Directives Information Provided: Yes Do you have thoughts of harming others: None Do you have a plan to hurt others: No Plan Recently lost weight without trying: No Eating poorly because of decreased appetite: No Patient : No : No Poor oral hygiene: No service: No Current occupational status: disabled Meds Allergies Allergy/AdvReac Type Severity Reaction Status Date / Time pineapple [PINEAPPLE] Allergy Severe ANAPHYLAXIS Verified 06/30/20 09:13 aspirin [ASA] Allergy Mild UPSET Verified 06/30/20 09:13 STOMACH levofloxacin [From Levaquin] Allergy Mild SWELLING,RASH, Verified 06/30/20 09:13 rash oxycodone [From Percocet] Allergy Mild SOB,RASH Verified 06/30/20 09:13 acetaminophen [Percocet] Allergy Unknown rash Verified 06/30/20 09:13 Iodinated Contrast Media Allergy Unknown SOB,RASH Verified 06/30/20 09:13 [IV Dye, Iodine Containing] Active Medications: Current Medications Generic Name Dose Route Start Last Admin Trade Name Freq PRN Reason Stop Dose Admin Acetaminophen 650 mg 08/06/20 20:11 08/07/20 02:56 Acetaminophen 325 Mg Tablet PO 650 mg Q6H PRN Administration Pain, Mild (Pain Scale 1-3) Albuterol Sulfate 2 puff 08/06/20 20:11 Albuterol Sulfate 90 Mcg 8 Gm Inhaler INHALE Q4H PRN Wheezing Docusate Sodium 100 mg 08/06/20 20:11 Docusate Sodium 100 Mg Capsule PO DAILY PRN Constipation Enoxaparin Sodium 40 mg 08/06/20 21:00 08/06/20 20:43 Enoxaparin Sodium 40 Mg/0.4 Ml Syringe SUBCUT 40 mg Q24H MAURISIO Administration Ergocalciferol 1,250 mcg 08/08/20 09:00 Ergocalciferol (Vitamin D2) 1,250 Mcg Capsule PO Saha@0900 MAURISIO Famotidine 20 mg 08/06/20 20:11 Famotidine 20 Mg Tablet PO BEDTIME PRN acid reflux Fluticasone/Vilanterol 1 puff 08/06/20 08:00 08/07/20 11:48 Fluticasone/Vilanterol 100/25 Blst.W.Dev INHALE Not Given RDAILY [facility] Hydralazine HCl 5 mg 08/06/20 16:59 08/07/20 08:40 Hydralazine Hcl 20 Mg/Ml Vial IVPUSH 5 mg Q6H PRN Administration SBP>180, DBP >100 Protocol Hydralazine HCl 25 mg 08/06/20 21:00 08/07/20 08:39 Hydralazine Hcl 25 Mg Tablet PO 25 mg BID MAURISIO Administration Protocol Hydrochlorothiazide 25 mg 08/07/20 09:00 08/07/20 08:39 Hydrochlorothiazide 25 Mg Tablet PO 25 mg DAILY MAURISIO Administration Levothyroxine Sodium 150 mcg 08/07/20 09:00 08/07/20 08:39 Levothyroxine Sodium 150 Mcg Tablet PO 150 mcg DAILY@0600 MAURISIO Administration Lisinopril 20 mg 08/07/20 09:00 08/07/20 08:39 Lisinopril 20 Mg Tablet PO 20 mg DAILY MAURISIO Administration Metoprolol Tartrate 50 mg 08/06/20 21:00 08/07/20 08:39 Metoprolol Tartrate 50 Mg Tablet PO 50 mg BID MAURISIO Administration Protocol Montelukast Sodium 10 mg 08/06/20 21:00 08/06/20 20:42 Montelukast Sodium 10 Mg Tablet PO 10 mg BEDTIME MAURISIO Administration Omeprazole 20 mg 08/07/20 06:30 08/07/20 06:40 Omeprazole 20 Mg Capsule.Dr PO 20 mg DAILY@0630 [facility] Administration Ondansetron HCl 4 mg 08/06/20 20:11 08/07/20 13:28 Ondansetron Hcl 4 Mg/2 Ml Vial IVPUSH 4 mg Q8H PRN Administration Nausea and Vomiting Pharmacy Consult 1 each 08/06/20 15:30 Consult Rx Perform Med Rec MISCELLANE ONCE PRN Consult order Polyethylene Glycol 17 gm 08/07/20 09:00 08/07/20 08:46 Polyethylene Glycol 3350 17 Gm Powd.Pack PO Not Given Q48H [facility] Sodium Chloride 3 ml 08/07/20 00:00 08/07/20 08:45 0.9 % Sodium Chloride Flush 3 Ml Syringe IVFLUSH 3 ml QSHIFT [facility] Administration Sucralfate 1 gm 08/06/20 21:00 08/07/20 08:39 Sucralfate 1 Gm Tablet PO 1 gm BID MAURISIO Administration Home Medications Medication Instructions Recorded Confirmed Last Taken Type fluticasone 232 mcg-salmeterol 14 1 inh INHALATION BID PRN 12/05/19 08/06/20 Unknown History mcg/actuation breath activated powdr montelukast 10 mg tablet 10 mg PO BEDTIME 12/05/19 08/06/20 08/05/20 History albuterol sulfate 90 mcg/actuation 2 puff INHALATION Q4-6H PRN 12/15/19 08/06/20 Unknown History aerosol inhaler polyethylene glycol 3350 [Miralax] 17 g PO Q2D 08/06/20 08/06/20 08/05/20 History sucralfate 1 tab PO BID 08/06/20 08/06/20 08/05/20 History Physical Exam Vital Signs: Vital Signs: Last Vital Signs Temp 96.9 F 08/07/20 07:46 Pulse 77 08/07/20 07:46 Resp 18 08/07/20 07:46 BP 162/98 H 08/07/20 11:32 Pulse Ox 95 08/07/20 07:46 Body Mass Index 37.5 She was alert and awake with normal spontaneity of speech fluency comprehension and affect. Pupils were equal and reactive to light and extraocular muscles were intact. Visual guerrero are full to confrontation. Face was symmetrical. There was no pronator drift. Mvovaa-mz-krng testing was normal. Deep tendon reflexes were trace with flexor plantars. Results Labs CBC & Chem 7: 08/07/20 06:20 08/07/20 06:20 Labs: Short CBC 08/07/20 Range/Units 06:20 WBC 7.7 (4.8-10.8) X10*3/uL Hgb 14.0 (12.0-16.0) g/dl Hct 42.5 (37-47) % Plt Count 260 (160-400) X10*3/uL BMP 08/07/20 06:20 Sodium 139 Potassium 4.2 Chloride 102 Carbon Dioxide 26 BUN 13 Creatinine 0.73 Calcium 9.[address] was unremarkable. Assessment and Plan (1) Headache: Qualifiers: Headache chronicity pattern: acute headache Headache type: unspecified Intractability: intractable Qualified Code(s): R51.9 - Headache, unspecified Status: Acute 49 years old woman with obesity uncontrolled hypertension and migraine headaches. At this time she was comfortable with almost resolution of symptoms. Blood pressure was still high. I would recommend proper blood pressure controlled and sumatriptan 50 mg p.r.n. for headaches. Procedures Date of Service Date of Service: 08/07/20
--- NOTE | 2020-08-07 14:43 | P.DS_ITS ---
DS: Providers Provider Date of Service: 08/07/20 Date of admission: 08/06/20 16:58 Primary care physician: Tommy Smith MD Consults: 08/06/20 20:11 Consult to Neurology Routine Consulting Provider: [facility] Reason for consultation: hypertensive, numbness in face Has provider been notified: No DS: Diagnosis Discharge Diagnosis (1) Headache: Status: Acute DS: Medications Discharge Medications Home Medications: Home Medications Medication Instructions Recorded Confirmed fluticasone 232 mcg-salmeterol 14 1 inh INHALATION BID PRN 12/05/19 08/06/20 mcg/actuation breath activated powdr montelukast 10 mg tablet 10 mg PO BEDTIME 12/05/19 08/06/20 albuterol sulfate 90 mcg/actuation 2 puff INHALATION Q4-6H PRN 12/15/19 08/06/20 aerosol inhaler polyethylene glycol 3350 [Miralax] 17 g PO Q2D 08/06/20 08/06/20 sucralfate 1 tab PO BID 08/06/20 08/06/20 Previous Rx's Medication Instructions Recorded famotidine 20 mg tablet 20 mg PO BEDTIME PRN 30 Days #30 12/31/19 tab omalizumab 150 mg/mL subcutaneous 300 mg SUBCUT Q2W #4 ml 03/25/20 syringe omeprazole 20 mg capsule,delayed 20 mg PO DAILY 30 Days #30 cap 04/22/20 release levothyroxine 150 mcg tablet 150 mcg PO DAILY 30 Days #30 tab 05/20/20 ergocalciferol (vitamin D2) 1,250 1,250 mcg PO QWEEK 56 Days #8 cap 06/21/20 mcg (50,000 unit) capsule meloxicam 15 mg tablet 15 mg PO DAILY #20 tab 06/22/20 mheiusnlzu-qlzggfztivsvh-ccvx 1 cap PO Q8H PRN #30 cap 08/07/20 [Fioricet] hydralazine 25 mg PO BID #180 tab 08/07/20 lisinopril-hydrochlorothiazide 1 tab PO DAILY #90 tab 08/07/20 metoprolol tartrate 50 mg PO BID #60 tab 08/07/20 DS: Summary Hospital Course Hospital Course: 49-year-old female with past medical history of hypertension, fibromyalgia, hypothyroidism, history of [place], history of TIA among others who presents to the hospital with complaints of headache, elevated blood pressure. Patient reports that she started having a headache this all over her head about 3 days ago and has been checking her blood pressure which has been in 180s over 110s to 130s. Patient reports midsternal chest pain that is shooting in sensation, as well as epigastric pain that feels like burning. Each 1 started about 2 days ago, on and off, lasting about 10-20 minutes. Nonradiating. Patient denies any abdominal pain but has nausea no vomiting. No urinary symptoms. Patient has no fever or chills. She is complaining of mild shortness of breath with no orthopnea or PND. She is also complaining of numbness on the left side of her mouth, no slurred speech, numbness in her left arm. She is feeling generally weak with no specific weakness in arms or legs. She has no urinary symptoms and no lower extremity edema. Although patient reports compliance with her medication, pharmacy review showed that she has not filled any of her blood pressure medications since September of 2019 and some in December of 2019 with no refills. On arrival to the ED patient's blood pressure noted to be 206/127, temp of 99.1?, heart rate of 80, respiratory rate of 19, satting 99% on room air After confronting the patient about her medication she reports that she did not have enough medications and she was rationing her meds and not taking the full dosage. In regards to her hypertensive urgency patient was treated with her home medications and hydralazine p.r.n. with improvement in her blood pressure. Case was discussed with Neurology, recommended no further intervention in regards to imaging. Patient's blood pressure was better controlled with the home medications as well as p.r.n. hydralazine. Patient continued to have headache but will be sent home on Fioricet. No neurological deficits. Patient's blood pressure medication including hydralazine, combination pill hydrochlorothiazide/lisinopril as well as metoprolol were all refilled, sent to the pharmacy with 2 refills each. Patient also encouraged to follow-up with her PCP in 1 week which she says she will do. Patient will be sent home Time Spent with Patient Time attestation: Total time spent providing and/or coordinating discharge services: Discharge coordination time: Greater than 30 minutes Quality: Stroke Does the patient have a stroke diagnosis?: No Physical Exam Vital Signs: Vital Signs: Last Vital Signs Temp 96.9 F 08/07/20 07:46 Pulse 77 08/07/20 07:46 Resp 18 08/07/20 07:46 BP 162/98 H 08/07/20 11:32 Pulse Ox 95 08/07/20 07:46 Body Mass Index 37.5 Const: General: cooperative and no acute distress Orientation/consciousness: patient oriented x3 Resp: Effort & Inspection: normal respiratory effort Cardio: Rate: regular rate Rhythm: regular rhythm GI: Palpation (GI): Soft to palpation Auscultation: normal bowel sounds Skin: General skin exam: no rashes or lesions noted Neuro: Other: No neurological deficits General: patient oriented x3 Cognition (Neuro): normal cognition Extrem: General: Yes normal to inspection and Yes no pedal edema DS: Data Data Completed and Pending Labs on day of discharge: Laboratory Results - last 24 hr 08/06/20 08/06/20 08/07/20 15:43 17:29 06:20 WBC 7.7 RBC 4.61 Hgb 14.0 Hct 42.5 MCV 92.2 MCH 30.4 MCHC 32.9 RDW 13.4 Plt Count 260 MPV 10.0 Immature Gran % (Auto) 0.3 Neut % (Auto) 56.2 Lymph % (Auto) 34.7 Nuckolls % (Auto) 6.4 Eos % (Auto) 2.0 Baso % (Auto) 0.4 Lymph # (Auto) 2.7 Nuckolls # (Auto) 0.5 Eos # (Auto) 0.2 Baso # (Auto) 0.0 Abs Immat Gran (auto) 0.02 Absolute Neuts (auto) 4.3 Absolute Nucleated RBC 0.000 Nucleated RBC % (auto) 0.0 Sodium Potassium Chloride Carbon Dioxide Anion Gap BUN Creatinine Estim Creat Clear Calc Estimated GFR Random Glucose Calcium Troponin I High Sens < 3.5 B-Natriuretic Peptide 33 COVID-19 ([facility]) Negative COVID-19 Clin Com See Note 08/07/20 06:20 WBC RBC Hgb Hct MCV MCH MCHC RDW Plt Count MPV Immature Gran % (Auto) Neut % (Auto) Lymph % (Auto) Nuckolls % (Auto) Eos % (Auto) Baso % (Auto) Lymph # (Auto) Nuckolls # (Auto) Eos # (Auto) Baso # (Auto) Abs Immat Gran (auto) Absolute Neuts (auto) Absolute Nucleated RBC Nucleated RBC % (auto) Sodium 139 Potassium 4.2 Chloride 102 Carbon Dioxide 26 Anion Gap 15 BUN 13 Creatinine 0.73 Estim Creat Clear Calc 109.0 Estimated GFR > 60 Random Glucose 87 Calcium 9.4 Troponin I High Sens B-Natriuretic Peptide COVID-19 ([facility]) COVID-19 Clin Com Discharge Plan Discharge Patient Disposition: Home, Self-Care Discharge Diagnosis: Hypertensive urgency Referrals: Tommy Smith MD [Primary Care Provider] - 1 Week Discharge Medications: New ygikqjtmri-uyoyteynnifwr-xfsq [Fioricet] 50-300-40 mg capsule 1 cap PO Q8H PRN (Reason: headache) Qty: 30 RF: 0 Continued famotidine 20 mg tablet 20 mg PO BEDTIME PRN (Reason: acid reflux) 30 Days Qty: 30 RF: 3 omalizumab [Xolair] 150 mg/mL syringe 300 mg subcut Q2W Qty: 4 RF: 11 levothyroxine 150 mcg tablet 150 mcg PO DAILY 30 Days Qty: 30 RF: 11 meloxicam 15 mg tablet 15 mg PO DAILY Qty: 20 RF: 0 sucralfate 1 gram tablet 1 tab PO BID RF: 0 polyethylene glycol 3350 [Miralax] 17 gram/dose powder 17 g PO Q2D RF: 0 hydralazine 25 mg tablet 25 mg PO BID Qty: 180 RF: 2 metoprolol tartrate 50 mg tablet 50 mg PO BID Qty: 60 RF: 2 lisinopril-hydrochlorothiazide 20-25 mg tablet 1 tab PO DAILY Qty: 90 RF: 2 albuterol sulfate [ProAir HFA] 90 mcg/actuation HFA aerosol inhaler 2 puff inhalation Q4-6H PRN (Reason: Wheezing) RF: 0 fluticasone propion-salmeterol 232-14 mcg/actuation aerosol powdr breath activated 1 inh inhalation BID PRN (Reason: Wheezing) RF: 0 montelukast 10 mg tablet 10 mg PO BEDTIME RF: 0 ergocalciferol (vitamin D2) 1,250 mcg (50,000 unit) capsule 1,250 mcg PO QWEEK 56 Days Qty: 8 RF: 0 omeprazole 20 mg capsule,delayed release(DR/EC) 20 mg PO DAILY 30 Days Qty: 30 RF: 4 Discharge Orders: Discharge Order (Routine); Ordered 08/07/20 Ordered By: Ketan Rodriguez Diet: advance to usual diet Activity on Discharge: As tolerated Stand Alone Forms: Patient Portal Discharge page Care Plan Goals: Compliance with medications, recovery, avoid hospitalization Health Concerns: Hypertension Plan of Treatment: Continue home antihypertensives Assessment: In regards to hypertensions urgency, it is very crucial that you continue being compliant with your hypertension medications in regards to headache, please take Fioricet as needed
--- NOTE | 2020-08-07 14:54 | MHC.CM.PN ---
Addendum entered by Judith Walker 08/08/20 14:32: DISCHARGE CANCELLED Original Note: PATIENT IS DISCHARGED HOME WITH NO SERVICES HER CAR IS IN THE LOT.
--- NOTE | 2020-08-07 15:42 | PC.NURSE ---
0850 169/97 0900 167/100 0915 182/96 1130 162/98 alayna. c/o severe BROWNE today. Fioricet given at 0910 and 1150 with some eff. 1330 morphine 4mg and zofran given with eff. Neymar lunch. Does still c/o numbness around mouth area.
--- NOTE | 2020-08-07 16:04 | P.PNIM_ITS ---
Subjective Subjective Date of Service: 08/07/20 Interval History: At bedside. She continues to have a headache. Her blood pressure is slightly better but continues to be elevated. She denies any neurological symptoms including no numbness tingling, no weakness. I was planning on discharging the patient but as she continues to have elevated blood pressure discharge was canceled. Physical Exam Vital Signs: Vital Signs: Last Vital Signs Temp 98.1 F 08/07/20 15:23 Pulse 70 08/07/20 15:23 Resp 16 08/07/20 15:23 BP 179/103 H 08/07/20 15:23 Pulse Ox 98 08/07/20 15:23 Body Mass Index 37.5 Const: General: cooperative and no acute distress Orientation/consciou sness: patient oriented x3 Resp: Effort & Inspection: normal respiratory effort and able to speak in complete sentences Cardio: Rate: regular rate Rhythm: regular rhythm GI: Palpation (GI): Soft to palpation Auscultation: normal bowel sounds Neuro: General: patient oriented x3 Cognition (Neuro): normal cognition Extrem: General: Yes normal to inspection and Yes no pedal edema Objective Data Current Medications Generic Name Dose Route Start Last Admin Trade Name Freq PRN Reason Stop Dose Admin Acetaminophen 650 mg 08/06/20 20:11 08/07/20 02:56 Acetaminophen 325 Mg Tablet PO 650 mg Q6H PRN Administration Pain, Mild (Pain Scale 1-3) Albuterol Sulfate 2 puff 08/06/20 20:11 Albuterol Sulfate 90 Mcg 8 Gm Inhaler INHALE Q4H PRN Wheezing Docusate Sodium 100 mg 08/06/20 20:11 Docusate Sodium 100 Mg Capsule PO DAILY PRN Constipation Enoxaparin Sodium 40 mg 08/06/20 21:00 08/06/20 20:43 Enoxaparin Sodium 40 Mg/0.4 Ml Syringe SUBCUT 40 mg Q24H MAURISIO Administration Ergocalciferol 1,250 mcg 08/08/20 09:00 Ergocalciferol (Vitamin D2) 1,250 Mcg Capsule PO Saha@0900 MAURISIO Famotidine 20 mg 08/06/20 20:11 Famotidine 20 Mg Tablet PO BEDTIME PRN acid reflux Fluticasone/Vilanterol 1 puff 08/06/20 08:00 08/07/20 11:48 Fluticasone/Vilanterol 100/25 Blst.W.Dev INHALE Not Given RDAILY [facility] Hydralazine HCl 5 mg 08/06/20 16:59 08/07/20 08:40 Hydralazine Hcl 20 Mg/Ml Vial IVPUSH 5 mg Q6H PRN Administration SBP>180, DBP >100 Protocol Hydralazine HCl 25 mg 08/06/20 21:00 08/07/20 08:39 Hydralazine Hcl 25 Mg Tablet PO 25 mg BID MAURISIO Administration Protocol Hydrochlorothiazide 25 mg 08/07/20 09:00 08/07/20 08:39 Hydrochlorothiazide 25 Mg Tablet PO 25 mg DAILY MAURISIO Administration Levothyroxine Sodium 150 mcg 08/07/20 09:00 08/07/20 08:39 Levothyroxine Sodium 150 Mcg Tablet PO 150 mcg DAILY@0600 MAURISIO Administration Lisinopril 20 mg 08/07/20 09:00 08/07/20 08:39 Lisinopril 20 Mg Tablet PO 20 mg DAILY MAURISIO Administration Metoprolol Tartrate 50 mg 08/06/20 21:00 08/07/20 08:39 Metoprolol Tartrate 50 Mg Tablet PO 50 mg BID MAURISIO Administration Protocol Montelukast Sodium 10 mg 08/06/20 21:00 08/06/20 20:42 Montelukast Sodium 10 Mg Tablet PO 10 mg BEDTIME MAURISIO Administration Omeprazole 20 mg 08/07/20 06:30 08/07/20 06:40 Omeprazole 20 Mg Capsule.Dr PO 20 mg DAILY@0630 [facility] Administration Ondansetron HCl 4 mg 08/06/20 20:11 08/07/20 13:28 Ondansetron Hcl 4 Mg/2 Ml Vial IVPUSH 4 mg Q8H PRN Administration Nausea and Vomiting Pharmacy Consult 1 each 08/06/20 15:30 Consult Rx Perform Med Rec MISCELLANE ONCE PRN Consult order Polyethylene Glycol 17 gm 08/07/20 09:00 08/07/20 08:46 Polyethylene Glycol 3350 17 Gm Powd.Pack PO Not Given Q48H [facility] Sodium Chloride 3 ml 08/07/20 00:00 08/07/20 08:45 0.9 % Sodium Chloride Flush 3 Ml Syringe IVFLUSH 3 ml QSHIFT [facility] Administration Sucralfate 1 gm 08/06/20 21:00 08/07/20 08:39 Sucralfate 1 Gm Tablet PO 1 gm BID MAURISIO Administration Labs CBC & Chem 7: 08/07/20 06:20 08/07/20 06:20 Assessment and Plan (1) Hypertensive urgency: Status: Acute (2) Headache: Status: Acute Assessment and Plan: 49-year-old female with past medical history of hypertension who presents to the hospital with complaints of a headache and elevated blood pressure. # hypertensive urgency - most likely secondary to medication noncompliance as patient has not filled her medications since 2019 and reports to me that she has be rationing her meds - CT of the head negative for any hemorrhagic stroke - BP improving but continues to have elevated bp and headache - Will increase her home hydralazine to 50 mg and p.r.n. hydralazine - WIll also order renal doppler US # atypical chest pain - resolved - Came in with complaints of burning and stabbing in the midsternal and ep igastric region - EKG shows no acute changes suggestive of ACS - Troponin - Continue monitoring # headache - secondary to hypertension - Neurology consulted - will order sumatriptan PRN and fioricet PRN - treat high blood pressure # hypothyroidism - continue levothyroxine # asthma - no acute exacerbation - continue home inhalers DVT prophylaxis: Lovenox
[2020-08-07] MEDS: hydrALAZINE HCl 50 MG TABLET PO ×2 (16:50→21:23)
[2020-08-07] MEDS: SUMAtriptan succinate 50 MG TABLET PO (16:56)
[2020-08-07] MEDS: Montelukast Sodium 10 MG TABLET PO (21:23)
[2020-08-07] MEDS: Ketorolac Tromethamine 15 MG/ML VIAL IVPUSH (21:24)
[2020-08-07] MEDS: Enoxaparin Sodium 40 MG/0.4 ML SYRINGE SUBCUT (21:24)
--- NOTE | 2020-08-07 21:32 | PC.NURSE ---
Ptient c/o headache throughout shift. Patient medicated with PRN Imitrex as ordered. Patient states some relief for some time after medication administration. However, patient c/o reoccurring headache about 2 hours after medication administration. Patient states she has had migraines in the past, but this feels different and it is more of a strong pressure. Patient also expressing anxiety about headache reoccurring. MD made aware of headache and anxiety. Patient then medicated with PRN Toradol as ordered. Again at administration patient expressing concern about anxiety. Will continue to monitor.
[2020-08-07] MEDS: LORazepam 0.5 MG TABLET PO (22:36)
[2020-08-08] VITALS (7 sets, daily range): BP systolic 134–160; BP diastolic 81–112; PULSE 74–100; RESP 16–18; TEMP 36.3–36.7; O2SAT 96–99
[2020-08-08] MEDS: 0.9 % Sodium Chloride Flush 3 ML SYRINGE IVFLUSH ×4 (00:24→20:32)
[2020-08-08] MEDS: Ketorolac Tromethamine 15 MG/ML VIAL IVPUSH ×4 (05:42→23:04)
[2020-08-08] MEDS: Omeprazole 20 MG CAPSULE.DR PO (05:44)
[2020-08-08] MEDS: Levothyroxine Sodium 150 MCG TABLET PO (05:44)
[2020-08-08] MEDS: hydroCHLOROthiazide 25 MG TABLET PO (09:15)
[2020-08-08] MEDS: Sucralfate 1 GM TABLET PO ×2 (09:15→20:30)
[2020-08-08] MEDS: hydrALAZINE HCl 50 MG TABLET PO ×3 (09:15→20:31)
[2020-08-08] MEDS: Metoprolol Tartrate 50 MG TABLET PO ×2 (09:15→20:31)
[2020-08-08] MEDS: lisinopriL 20 MG TABLET PO (09:15)
[2020-08-08] MEDS: Ergocalciferol (Vitamin D2) 1,250 MCG CAPSULE 1250 MCG PO (09:28)
[2020-08-08] MEDS: ondansetron HCL 4 MG/2 ML VIAL IVPUSH (11:50)
[2020-08-08] MEDS: NaPROXEN 500 MG TABLET PO (12:35)
--- NOTE | 2020-08-08 13:01 | HO.PM.IMPN ---
Subjective Subjective Date of Service: 08/08/20 Interval History: Patient complaining of headache for 3 day, complains that entire head hurts describe it as pounding relieved with pain medications but then returns back, no visual symptoms complaining of left facial numbness, no speech impairment no dizziness Respiratory no cough, no sputum, no shortness of breath GI no nausea, no vomiting, no abdominal pain no urinary symptoms of urgency or frequency. Physical Exam Vital Signs: Vital Signs: Last Vital Signs Temp 97.3 F 08/08/20 08:00 Pulse 74 08/08/20 08:00 Resp 18 08/08/20 08:00 BP 160/90 H 08/08/20 11:59 Pulse Ox 96 08/08/20 08:00 Body Mass Index 37.5 General no acute distress. Neck is supple no JVD. CVS regular rate rhythm, Respiratory lungs clear to auscultation, no respiratory distress, no wheeze, no rhonchi. Gastrointestinal abdomen soft, nontender, bowel sounds audible, no guarding , no rigidity. Extremities no edema. Neuro nonfocal patient moving all 4 extremity, speech clear, no facial droop normal cranial nerve 2-12. No temporal paresthesias Skin no rash Objective Data Current Medications Generic Name Dose Route Start Last Admin Trade Name Freq PRN Reason Stop Dose Admin Acetaminophen 650 mg 08/06/20 20:11 08/07/20 02:56 Acetaminophen 325 Mg Tablet PO 650 mg Q6H PRN Administration Pain, Mild (Pain Scale 1-3) Acetaminophen/Butalbital/Caffeine 1 tab 08/08/20 12:18 Butalb/Acetamin/Caff 50/325/40 Tablet PO Q6H PRN Headache Albuterol Sulfate 2 puff 08/06/20 20:11 Albuterol Sulfate 90 Mcg 8 Gm Inhaler INHALE Q4H PRN Wheezing Docusate Sodium 100 mg 08/06/20 20:11 Docusate Sodium 100 Mg Capsule PO DAILY PRN Constipation Enoxaparin Sodium 40 mg 08/06/20 21:00 08/07/20 21:24 Enoxaparin Sodium 40 Mg/0.4 Ml Syringe SUBCUT 40 mg Q24H MAURISIO Administration Ergocalciferol 1,250 mcg 08/08/20 09:00 08/08/20 09:28 Ergocalciferol (Vitamin D2) 1,250 Mcg Capsule PO 1,250 mcg Saha@0900 MAURISIO Administration Famotidine 20 mg 08/06/20 20:11 Famotidine 20 Mg Tablet PO BEDTIME PRN acid reflux Fluticasone/Vilanterol 1 puff 08/06/20 08:00 08/08/20 10:55 Fluticasone/Vilanterol 100/25 Blst.W.Dev INHALE Not Given RDAILY [facility] Hydralazine HCl 5 mg 08/06/20 16:59 08/07/20 08:40 Hydralazine Hcl 20 Mg/Ml Vial IVPUSH 5 mg Q6H PRN Administration SBP>180, DBP >100 Protocol Hydralazine HCl 50 mg 08/08/20 15:00 Hydralazine Hcl 50 Mg Tablet PO TID [facility] Protocol Hydrochlorothiazide 25 mg 08/07/20 09:00 08/08/20 09:15 Hydrochlorothiazide 25 Mg Tablet PO 25 mg DAILY MAURISIO Administration Ketorolac Tromethamine 15 mg 08/07/20 20:44 08/08/20 11:50 Ketorolac Tromethamine 15 Mg/Ml Vial IVPUSH 15 mg Q6H PRN Administration Breakthrough Pain Levothyroxine Sodium 150 mcg 08/07/20 09:00 08/08/20 05:44 Levothyroxine Sodium 150 Mcg Tablet PO 150 mcg DAILY@0600 [facility] Administration Lisinopril 20 mg 08/07/20 09:00 08/08/20 09:15 Lisinopril 20 Mg Tablet PO 20 mg DAILY MAURISIO Administration Metoprolol Tartrate 50 mg 08/06/20 21:00 08/08/20 09:15 Metoprolol Tartrate 50 Mg Tablet PO 50 mg BID MAURISIO Administration Protocol Montelukast Sodium 10 mg 08/06/20 21:00 08/07/20 21:23 Montelukast Sodium 10 Mg Tablet PO 10 mg BEDTIME MAURISIO Administration Omeprazole 20 mg 08/07/20 06:30 08/08/20 05:44 Omeprazole 20 Mg Capsule.Dr PO 20 mg DAILY@0630 [facility] Administration Ondansetron HCl 4 mg 08/06/20 20:11 08/08/20 11:50 Ondansetron Hcl 4 Mg/2 Ml Vial IVPUSH 4 mg Q8H PRN Administration Nausea and Vomiting Pharmacy Consult 1 each 08/06/20 15:30 Consult Rx Perform Med Rec MISCELLANE ONCE PRN Consult order Polyethylene Glycol 17 gm 08/07/20 09:00 08/07/20 08:46 Polyethylene Glycol 3350 17 Gm Powd.Pack PO Not Given Q48H MAURISIO Sodium Chloride 3 ml 08/07/20 00:00 08/08/20 09:16 0.9 % Sodium Chloride Flush 3 Ml Syringe IVFLUSH 3 ml QSHIFT MAURISIO Administration Sucralfate 1 gm 08/06/20 21:00 08/08/20 09:15 Sucralfate 1 Gm Tablet PO 1 gm BID MAURISIO Administration Sumatriptan Succinate 50 mg 08/07/20 16:08 08/07/20 16:56 Sumatriptan Succinate 50 Mg Tablet PO 50 mg DAILY PRN Administration Headache Labs CBC & Chem 7: 08/07/20 06:20 08/07/20 06:20 Assessment and Plan (1) Hypertensive urgency: Status: Acute (2) Headache: Status: Acute (3) Hypothyroidism: Status: Acute Assessment and Plan: 49-year-old female with past medical history of hypertension who presents to the hospital with complaints of a headache and elevated blood pressure. # hypertensive urgency - most likely secondary to medication noncompliance as patient has not filled her medications since 2019 and reports to me that she has be rationing her meds - CT of the head negative for any hemorrhagic stroke - BP improving but continues to have elevated bp and headache will increase dose of hydralazine to 50 mg t.i.d. continue beta-raven lisinopril and hydrochlorothiazide - renal doppler US obtained report pending , will obtain nephrology consultation due to persistent elevated did blood pressure on 4 medications # atypical chest pain - resolved - Came in with complaints of burning and stabbing in the midsternal and epigastric region - EKG shows no acute changes suggestive of ACS - Troponin ,3.5 , no further workup warranted # headache - persistent headache despite improvement in blood pressure reading, seems like mixed headache -patient seen by Dr. Siegel he feels headache related to uncontrolled hypertension and migraine headache he recommend sumatriptan PRN Will place patient on as needed Naprosyn and fioricet , treat high blood pressure # hypothyroidism - continue levothyroxine # asthma - no acute exacerbation - continue home inhalers DVT prophylaxis: Lovenox
[2020-08-08] MEDS: Docusate Sodium 100 MG CAPSULE PO (15:46)
[2020-08-08] MEDS: polyethylene glycoL 3350 17 GM POWD.PACK PO (18:15)
[2020-08-08] MEDS: Mineral OiL enema 133 ML ENEMA PR (19:23)
--- NOTE | 2020-08-08 19:48 | PC.NURSE ---
pt was complained of pain in the abdominal area. Pt stated that the pain was due to constipation. She wanted to shower to relieve pain. Pt could not wait for doctors response. Pt took off tele monitor and entered shower. Pt was observed at all times till the monitor was able to be placed back on.
[2020-08-08] MEDS: Montelukast Sodium 10 MG TABLET PO (20:30)
[2020-08-08] MEDS: Enoxaparin Sodium 40 MG/0.4 ML SYRINGE SUBCUT (20:31)
--- NOTE | 2020-08-08 22:18 | PM.EVENT ---
Event Note Date of Service: 08/08/20 Event Note: Abd pain: Ct showed partial SBO and Colitis; s/w Ceftriaxone/Flagyl and General Suregry consult. NPO.
[2020-08-08] MEDS: metroNIDAZOLE/NS 500 MG/100 ML PIGGYBACK 100 MG IV (23:04)
[2020-08-09] VITALS (8 sets, daily range): BP systolic 96–151; BP diastolic 52–81; PULSE 70–108; RESP 16–18; TEMP 36–36.6; O2SAT 95–98; BMI 36.8
[2020-08-09] MEDS: cefTRIAXone sodium 1 GM in 0.9 % Sodium Chloride 50 ML IV ×2 (00:35→22:07)
[2020-08-09] MEDS: Dextrose 5 % and 0.9 % NaCl 1,000 ML 50 ML IVCONT ×2 (00:36→20:54)
[2020-08-09] MEDS: metroNIDAZOLE/NS 500 MG/100 ML PIGGYBACK 100 MG IV ×2 (06:40→14:38)
[2020-08-09] MEDS: Omeprazole 20 MG CAPSULE.DR PO (06:40)
[2020-08-09] MEDS: Levothyroxine Sodium 150 MCG TABLET PO (06:40)
--- NOTE | 2020-08-09 09:13 | P.CONGS_ITS ---
History of Present Illness Consult details Consult date: 08/09/20 Narrative: [age] year female admitted last 08/06/2020 because of hypertensive urgency, referred because of colitis with left-sided abdominal pain. She had complained as well of had a admission. She was actually supposed to be discharged last August 07 but she started to complain of abdominal pain mostly on the left side. A CAT scan was done yesterday which showed thickening when area of the left colon suggestive of colitis. There was some suggestion of stool back up proximally but no mass lesions is seen. She says she did start to have large amount of bowel movements overnight. She feels much better today. She still has some pain on the left side. Review of Systems Constitutional: Constitutional: Denies chills, Denies fever(s) and Reports headache(s) ENT: Reports headache(s) Cardiovascular: Cardiovascular: Denies chest pain, Denies dyspnea and Denies dyspnea on exertion Respiratory: Respiratory: Denies cough, Denies dyspnea and Denies dyspnea on exertion Gastrointestinal: Gastrointestinal: Denies hematochezia, Denies change in bowel habits and Reports constipation Genitourinary: Genitourinary: Denies hematuria Musculoskeletal: Musculoskeletal: Denies back pain and Denies limited range of motion Neurologic: Reports headache(s), Denies focal weakness and Denies convulsions Psychiatric: Psychiatric: Denies depression and Denies mood swings [facility] Past Medical History Medical History (Updated 08/09/20 @ 09:16 by Nelson Murguia MD) Allergic rhinitis Asthma Colitis Constipation Esophageal spasm Fibromyalgia GERD (gastroesophageal reflux disease) History of LA (myocardial infarction) History of migraine headaches History of TIA (transient ischemic attack) Hypercholesterolemia Hypertension Hypothyroidism Kidney stones Multinodular thyroid Obesity (BMI 30-39.9) Ovarian cyst Pancreatic cyst Rectal bleeding Sciatic nerve pain Thyroid nodule Vitamin D deficiency Family History Family History Father Family history of high blood pressure History of high cholesterol Mother History of diabetes mellitus Family history of high blood pressure Family history of asthma History of fibromyalgia Liver disease Surgical History Surgical History H/O lithotripsy H/O: hysterectomy History of cholecystectomy (~2003) History of colonoscopy (~11/16/19) History of kidney surgery History of thyroidectomy (~11/2018) Hx of appendectomy Hx of bilateral breast reduction surgery Social History Social History Household Members: None Housing: House Alcohol intake: never Patient Tobacco Use Status: Never used Tobacco Years Smoked: 3 Use of substances other than those prescribed or required for medical reasons: No Substance Use Type: Marijuana Currently Displaying Signs/Symptoms of Drug Intoxication Withdrawal: No Have you been hit, kicked, punched, or otherwise hurt by someone within the past year? If so, by whom?: No Do you feel safe in your current relationship?: No Current Relationship Is there a partner from a previous relationship who is making you feel unsafe now?: No Are you made to feel afraid or neglected: No Spiritual Healthcare Practices: n/a Quaker Healthcare Practices: n/a Cultural Healthcare Practices: n/a Advance Directives: No Advance Directives Information Provided: Yes Do you have thoughts of harming others: None Do you have a plan to hurt others: No Plan Recently lost weight without trying: No Eating poorly because of decreased appetite: No Patient : No : No Poor oral hygiene: No service: No Current occupational status: disabled Meds Allergies Allergy/AdvReac Type Severity Reaction Status Date / Time pineapple [PINEAPPLE] Allergy Severe ANAPHYLAXIS Verified 06/30/20 09:13 aspirin [ASA] Allergy Mild UPSET Verified 06/30/20 09:13 STOMACH levofloxacin [From Levaquin] Allergy Mild SWELLING,RASH, Verified 06/30/20 09:13 rash oxycodone [From Percocet] Allergy Mild SOB,RASH Verified 06/30/20 09:13 acetaminophen [Percocet] Allergy Unknown rash Verified 06/30/20 09:13 Iodinated Contrast Media Allergy Unknown SOB,RASH Verified 06/30/20 09:13 [IV Dye, Iodine Containing] Active Medications: Current Medications Generic Name Dose Route Start Last Admin Trade Name Freq PRN Reason Stop Dose Admin Acetaminophen 650 mg 08/06/20 20:11 08/07/20 02:56 Acetaminophen 325 Mg Tablet PO 650 mg Q6H PRN Administration Pain, Mild (Pain Scale 1-3) Acetaminophen/Butalbital/Caffeine 1 tab 08/08/20 12:18 Butalb/Acetamin/Caff 50/325/40 Tablet PO Q6H PRN Headache Albuterol Sulfate 2 puff 08/06/20 20:11 Albuterol Sulfate 90 Mcg 8 Gm Inhaler INHALE Q4H PRN Wheezing Docusate Sodium 100 mg 08/06/20 20:11 08/08/20 15:46 Docusate Sodium 100 Mg Capsule PO 100 mg DAILY PRN Administration Constipation Enoxaparin Sodium 40 mg 08/06/20 21:00 08/08/20 20:31 Enoxaparin Sodium 40 Mg/0.4 Ml Syringe SUBCUT 40 mg Q24H MAURISIO Administration Ergocalciferol 1,250 mcg 08/08/20 09:00 08/08/20 09:28 Ergocalciferol (Vitamin D2) 1,250 Mcg Capsule PO 1,250 mcg Saha@0900 MAURISIO Administration Famotidine 20 mg 08/06/20 20:11 Famotidine 20 Mg Tablet PO BEDTIME PRN acid reflux Fluticasone/Vilanterol 1 puff 08/06/20 08:00 08/09/20 07:52 Fluticasone/Vilanterol 100/25 Blst.W.Dev INHALE Not Given RDAILY [facility]ISIO Hydralazine HCl 5 mg 08/06/20 16:59 08/07/20 08:40 Hydralazine Hcl 20 Mg/Ml Vial IVPUSH 5 mg Q6H PRN Administration SBP>180, DBP >100 Protocol Hydralazine HCl 50 mg 08/08/20 15:00 08/08/20 20:31 Hydralazine Hcl 50 Mg Tablet PO 50 mg TID MAURISIO Administration Protocol Hydrochlorothiazide 25 mg 08/07/20 09:00 08/08/20 09:15 Hydrochlorothiazide 25 Mg Tablet PO 25 mg DAILY MAURISIO Administration Ceftriaxone Sodium 1 gm/ 50 mls @ 100 mls/hr 08/08/20 23:00 08/09/20 01:05 Sodium Chloride IV Infused Q24H MAURISIO Infusion Metronidazole 500 mg in 100 mls @ 100 mls/hr 08/08/20 23:00 08/09/20 08:13 Flagyl IV Infused Q8H MAURISIO Infusion Dextrose/Sodium Chloride 1,000 mls @ 50 mls/hr 08/08/20 22:30 08/09/20 01:06 D5ns IVCONT 50 mls/hr .Q20H MAURISIO Infusion Ketorolac Tromethamine 15 mg 08/07/20 20:44 08/08/20 18:15 Ketorolac Tromethamine 15 Mg/Ml Vial IVPUSH 15 mg Q6H PRN Administration Breakthrough Pain Levothyroxine Sodium 150 mcg 08/07/20 09:00 08/09/20 06:40 Levothyroxine Sodium 150 Mcg Tablet PO 150 mcg DAILY@0600 MAURISIO Administration Lisinopril 20 mg 08/07/20 09:00 08/08/20 09:15 Lisinopril 20 Mg Tablet PO 20 mg DAILY MAURISIO Administration Metoprolol Tartrate 50 mg 08/06/20 21:00 08/08/20 20:31 Metoprolol Tartrate 50 Mg Tablet PO 50 mg BID MAURISIO Administration Protocol Montelukast Sodium 10 mg 08/06/20 21:00 08/08/20 20:30 Montelukast Sodium 10 Mg Tablet PO 10 mg BEDTIME MAURISIO Administration Omeprazole 20 mg 08/07/20 06:30 08/09/20 06:40 Omeprazole 20 Mg Capsule.Dr PO 20 mg DAILY@0630 [facility] Administration Ondansetron HCl 4 mg 08/06/20 20:11 08/08/20 11:50 Ondansetron Hcl 4 Mg/2 Ml Vial IVPUSH 4 mg Q8H PRN Administration Nausea and Vomiting Pharmacy Consult 1 each 08/06/20 15:30 Consult Rx Perform Med Rec MISCELLANE ONCE PRN Consult order Polyethylene Glycol 17 gm 08/07/20 09:00 08/07/20 08:46 Polyethylene Glycol 3350 17 Gm Powd.Pack PO Not Given Q48H MAURISIO Sodium Chloride 3 ml 08/07/20 00:00 08/09/20 08:10 0.9 % Sodium Chloride Flush 3 Ml Syringe IVFLUSH Not Given QSHIFT [facility] Sucralfate 1 gm 08/06/20 21:00 08/08/20 20:30 Sucralfate 1 Gm Tablet PO 1 gm BID MAURISIO Administration Sumatriptan Succinate 50 mg 08/07/20 16:08 08/07/20 16:56 Sumatriptan Succinate 50 Mg Tablet PO 50 mg DAILY PRN Administration Headache Home Medications Medication Instructions Recorded Confirmed Last Taken Type fluticasone 232 mcg-salmeterol 14 1 inh INHALATION BID PRN 12/05/19 08/06/20 Unknown History mcg/actuation breath activated powdr montelukast 10 mg tablet 10 mg PO BEDTIME 12/05/19 08/06/20 08/05/20 History albuterol sulfate 90 mcg/actuation 2 puff INHALATION Q4-6H PRN 12/15/19 08/06/20 Unknown History aerosol inhaler polyethylene glycol 3350 [Miralax] 17 g PO Q2D 08/06/20 08/06/20 08/05/20 History sucralfate 1 tab PO BID 08/06/20 08/06/20 08/05/20 History Physical Exam Vital Signs: Vital Signs: Last Vital Signs Temp 96.8 F 08/09/20 07:49 Pulse 90 08/09/20 07:49 Resp 18 08/09/20 07:49 BP 96/52 L 08/09/20 07:49 Pulse Ox 95 08/09/20 07:49 Body Mass Index 37.5 Const: General: comfortable and no acute distress Orientation/conscious ness: patient oriented x3 Neck: Neck: Yes no lymphadenopathy Resp: Auscultation: clear to auscultation bilaterally Cardio: Rhythm: regular rhythm GI: Other: Mild tenderness on the left side of the ABS Palpation (GI): Soft to palpation and no guarding Neuro: General: patient oriented x3 Results Labs Result diagrams: 08/07/20 06:20 08/07/20 06:20 Labs: All other labs normal. Imaging Abdomen CT scan report/results: report reviewed and image reviewed CT scan - pelvis: report reviewed and image reviewed Assessment and Plan (1) Colitis: Status: Acute CT scan findings suggest colitis causing some partial obstruction. Another differential would be diverticulitis. There was no mass lesion that is seen. She is actually passing good amounts of gas stools already as well as gas. She feels much better. She is on antibiotics empirically. She has a very benign exam and clinically feels well. She can be started on clear liquids and we can gradually advance this as she tolerates it. She appears comfortable at this time. She has had a colonoscopy last October [address] Horton with note of diverticulosis of the sigmoid. A follow-up anoscopy was recommended for 5 years. Procedures Date of Service Date of Service: 08/09/20
--- NOTE | 2020-08-09 11:38 | MHC.CM.PN ---
EMR REVIEWED, ABD PAIN IMPROVING, BOWEL FX RETURNING, PT'S DIET WILL BE ADVANCED FROM CLEAR LIQUIDS TOLERATED, CM TO CONT TO FOLLOWD/C NEEDS. D/C PLAN: HOME SELF-CARE, SELF FOR TRANSPORT (CAR IN [facility] LOT)
[2020-08-09] MEDS: Sucralfate 1 GM TABLET PO ×2 (11:41→20:53)
--- NOTE | 2020-08-09 12:15 | HO.PM.IMPN ---
Subjective Subjective Date of Service: 08/09/20 Interval History: Patient complaining of left lower quadrant abdominal pain, no nausea vomiting had multiple bowel movements last night, headache has resolved noted to have low blood pressure this morning. [employer] no headache no dizziness CVS no chest pain, no palpitation GI as above Skin no rash Physical Exam Vital Signs: Vital Signs: Last Vital Signs Temp 96.9 F 08/09/20 11:59 Pulse 104 H 08/09/20 11:59 Resp 18 08/09/20 11:59 BP 98/67 08/09/20 11:59 Pulse Ox 98 08/09/20 11:59 Body Mass Index 37.5 General no acute distress. Neck is supple no JVD. CVS regular rate rhythm, Respiratory lungs clear to auscultation, no respiratory distress, no wheeze, no rhonchi. Gastrointestinal abdomen soft, mild left lower quadrant tenderness, nondistended, bowel sounds audible, no guarding , no rigidity. Extremities no edema. Neuro nonfocal Skin no rash Objective Data Current Medications Generic Name Dose Route Start Last Admin Trade Name Felipeq PRN Reason Stop Dose Admin Acetaminophen 650 mg 08/06/20 20:11 08/07/20 02:56 Acetaminophen 325 Mg Tablet PO 650 mg Q6H PRN Administration Pain, Mild (Pain Scale 1-3) Acetaminophen/Butalbital/Caffeine 1 tab 08/08/20 12:18 Butalb/Acetamin/Caff 50/325/40 Tablet PO Q6H PRN Headache Albuterol Sulfate 2 puff 08/06/20 20:11 Albuterol Sulfate 90 Mcg 8 Gm Inhaler INHALE Q4H PRN Wheezing Docusate Sodium 100 mg 08/06/20 20:11 08/08/20 15:46 Docusate Sodium 100 Mg Capsule PO 100 mg DAILY PRN Administration Constipation Enoxaparin Sodium 40 mg 08/06/20 21:00 08/08/20 20:31 Enoxaparin Sodium 40 Mg/0.4 Ml Syringe SUBCUT 40 mg Q24H MAURISIO Administration Ergocalciferol 1,250 mcg 08/08/20 09:00 08/08/20 09:28 Ergocalciferol (Vitamin D2) 1,250 Mcg Capsule PO 1,250 mcg Saha@0900 MAURISIO Administration Famotidine 20 mg 08/06/20 20:11 Famotidine 20 Mg Tablet PO BEDTIME PRN acid reflux Fluticasone/Vilanterol 1 puff 08/06/20 08:00 08/09/20 07:52 Fluticasone/Vilanterol 100/25 Blst.W.Dev INHALE Not Given RDAILY [facility] Hydralazine HCl 5 mg 08/06/20 16:59 08/07/20 08:40 Hydralazine Hcl 20 Mg/Ml Vial IVPUSH 5 mg Q6H PRN Administration SBP>180, DBP >100 Protocol Hydralazine HCl 50 mg 08/08/20 15:00 08/09/20 10:46 Hydralazine Hcl 50 Mg Tablet PO Not Given TID [facility] Protocol Ceftriaxone Sodium 1 gm/ 50 mls @ 100 mls/hr 08/08/20 23:00 08/09/20 01:05 Sodium Chloride IV Infused Q24H MAURISIO Infusion Metronidazole 500 mg in 100 mls @ 100 mls/hr 08/08/20 23:00 08/09/20 08:13 Flagyl IV Infused Q8H [facility] Infusion Dextrose/Sodium Chloride 1,000 mls @ 50 mls/hr 08/08/20 22:30 08/09/20 01:06 D5ns IVCONT 50 mls/hr .Q20H MAURISIO Infusion Ketorolac Tromethamine 15 mg 08/07/20 20:44 08/08/20 18:15 Ketorolac Tromethamine 15 Mg/Ml Vial IVPUSH 15 mg Q6H PRN Administration Breakthrough Pain Levothyroxine Sodium 150 mcg 08/07/20 09:00 08/09/20 06:40 Levothyroxine Sodium 150 Mcg Tablet PO 150 mcg DAILY@0600 MAURISIO Administration Lisinopril 20 mg 08/07/20 09:00 08/09/20 10:46 Lisinopril 20 Mg Tablet PO Not Given DAILY MAURISIO Metoprolol Tartrate 50 mg 08/06/20 21:00 08/09/20 10:46 Metoprolol Tartrate 50 Mg Tablet PO Not Given BID [facility] Protocol Montelukast Sodium 10 mg 08/06/20 21:00 08/08/20 20:30 Montelukast Sodium 10 Mg Tablet PO 10 mg BEDTIME MAURISIO Administration Omeprazole 20 mg 08/07/20 06:30 08/09/20 06:40 Omeprazole 20 Mg Capsule.Dr PO 20 mg DAILY@0630 MAURISIO Administration Ondansetron HCl 4 mg 08/06/20 20:11 08/08/20 11:50 Ondansetron Hcl 4 Mg/2 Ml Vial IVPUSH 4 mg Q8H PRN Administration Nausea and Vomiting Pharmacy Consult 1 each 08/06/20 15:30 Consult Rx Perform Med Rec MISCELLANE ONCE PRN Consult order Polyethylene Glycol 17 gm 08/07/20 09:00 08/09/20 11:33 Polyethylene Glycol 3350 17 Gm Powd.Pack PO Not Given Q48H MAURISIO Sodium Chloride 3 ml 08/07/20 00:00 08/09/20 08:10 0.9 % Sodium Chloride Flush 3 Ml Syringe IVFLUSH Not Given QSHIFT MAURISIO Sucralfate 1 gm 08/06/20 21:00 08/09/20 11:41 Sucralfate 1 Gm Tablet PO 1 gm BID MAURISIO Administration Sumatriptan Succinate 50 mg 08/07/20 16:08 08/07/20 16:56 Sumatriptan Succinate 50 Mg Tablet PO 50 mg DAILY PRN Administration Headache Labs CBC & Chem 7: 08/07/20 06:20 08/07/20 06:20 Assessment and Plan (1) Colitis: Status: Acute (2) Hypertensive urgency: Status: Acute (3) Headache: Status: Acute Assessment and Plan: 49-year-old female with past medical history of hypertension who presents to the hospital with complaints of a headache and elevated blood pressure. # acute colitis Last night patient developed abdominal pain CT abdomen obtained that showed distal mild colitis and possibility of partial small-bowel obstruction patient started on IV Flagyl and ceftriaxone this morning abdominal examination is benign, patient moving flatus and had bowel movements seen by Dr. Murguia, he agrees with current antibiotic and recommend clear liquid diet Clinically no concern for obstruction, will gradually advanced diet as tolerated follow labs. # hypertensive urgency - admitted with elevated blood pressure most likely secondary to medication noncompliance as patient has not filled her medications since 2019 - CT of the head negative for any hemorrhagic stroke - patient was started on, beta-blockers, lisinopril, hydrochlorothiazide and dose of hydralazine was increased yesterday due to persistently elevated blood pressure but this morning noted to have low blood pressure therefore all blood pressure medications are held likely due to diarrhea and NPO Will gradually reintroduce blood pressure medication will start from beta-blockers , then will introduce lisinopril and hydrochlorothiazide Patient was not on hydralazine at home, due to elevated blood pressure Doppler ultrasound was obtained that showed no renal artery stenosis Nephrology eval is pending for adjustmentment of blood pressure medication. # atypical chest pain - resolved - Came in with complaints of burning and stabbing in the midsternal and epigastric region - EKG shows no acute changes suggestive of ACS - Troponin ,3.5 , no further workup warranted # headache - resolved was likely tension headache, patient seen by Dr. Siegel he feels headache related to uncontrolled hypertension and migraine headache he recommend sumatriptan PRN # hypothyroidism - continue levothyroxine # asthma - no acute exacerbation - continue home inhalers DVT prophylaxis: Lovenox
[2020-08-09] MEDS: 0.9 % Sodium Chloride Flush 3 ML SYRINGE IVFLUSH (15:46)
[2020-08-09] MEDS: ondansetron HCL 4 MG/2 ML VIAL IVPUSH (15:51)
--- NOTE | 2020-08-09 16:31 | PC.NURSE ---
P patient reported small amt of blood on a toilet paper after wiping herself after BM,also developed # 8 left side abdominal pain I Dr. Parr notified E will monitor
[2020-08-09] MEDS: oxyCODONE HCl Immed Release 5 MG TABLET PO (17:13)
[2020-08-09] MEDS: Acetaminophen 325 MG TABLET 650 MG PO ×2 (17:14→23:59)
[2020-08-09] MEDS: Enoxaparin Sodium 40 MG/0.4 ML SYRINGE SUBCUT (20:52)
[2020-08-09] MEDS: Montelukast Sodium 10 MG TABLET PO (20:53)
[2020-08-09] MEDS: Metoprolol Tartrate 50 MG TABLET PO (20:53)
[2020-08-10] VITALS (8 sets, daily range): BP systolic 120–183; BP diastolic 70–99; PULSE 75–100; RESP 16–18; TEMP 36–36.6; O2SAT 97–100
[2020-08-10] MEDS: ondansetron HCL 4 MG/2 ML VIAL IVPUSH
[2020-08-10] MEDS: Omeprazole 20 MG CAPSULE.DR PO (06:05)
[2020-08-10] MEDS: Levothyroxine Sodium 150 MCG TABLET PO (06:05)
[2020-08-10] MEDS: Metoprolol Tartrate 50 MG TABLET PO ×2 (07:25→20:50)
[2020-08-10] MEDS: Sucralfate 1 GM TABLET PO ×2 (07:25→20:50)
[2020-08-10] MEDS: Acetaminophen 325 MG TABLET 650 MG PO ×2 (07:26→20:53)
[2020-08-10] MEDS: lisinopriL 20 MG TABLET PO (07:26)
[2020-08-10] MEDS: metroNIDAZOLE/NS 500 MG/100 ML PIGGYBACK 100 MG IV ×4 (07:26→23:44)
[2020-08-10 07:30] LABS: MANUAL DIFF FLAG NO
[2020-08-10 07:37] LABS: Basophils Percent Auto 0.2 % (0-2); Eosinophils Percent Auto 0.1 % (0-4); Hemoglobin 14.9 g/dl (12.0-16.0); Imm Gran Pct Auto 0.5 % (0.0-0.4); Lymphocytes Absolute Auto 2.2 X10*3/uL (1.2-4.9); Lymphocytes Percent Auto 11.1 % (20-40); Mean Corpuscular HGB Conc 33.9 g/dl (31.0-35.0); Mean Corpuscular Hemoglobin 30.5 pg (27.0-33.0); Mean Platelet Volume 10.9 fL (9.4-12.3); Monocytes Absolute Auto 1.5 X10*3/uL (0.1-1.2); Monocytes Percent Auto 7.6 % (2-11); Neutrophils Absolute Auto 15.9 X10*3/uL (2.0-8.3); Neutrophils Percent Auto 80.5 % (45-73); Platelet Count 278 X10*3/uL (160-400); Red Blood Count 4.89 X10*6/uL (4.20-5.50); Red Cell Distribution Width 13.2 % (11.0-16.0); White Blood Count 19.7 X10*3/uL (4.8-10.8)
[2020-08-10] MEDS: Fluticasone/Vilanterol 100/25 BLST.W.DEV 1 PUFF INHALE (08:08)
[2020-08-10 08:32] LABS: Anion Gap 17 (12-20); Calcium 9.1 mg/dL (8.4-10.2); Carbon Dioxide 23 mmol/L (22-29); Chloride 100 mmol/L (96-108); Creatinine Clr Calc Pharmacy 78.8; Estimated Glomerular Filt Rate 59; Glucose Random 91 mg/dL (60-115); Sodium 136 mmol/L (135-145)
[2020-08-10 08:57] LABS: Blood Urea Nitrogen 31 mg/dL (9-16)
--- NOTE | 2020-08-10 10:17 | PM.PNNEP ---
Subjective Subjective Date of Service: 08/10/20 Interval history: c/o abdominal discomfort BP noted Physical Exam Vital Signs: Vital Signs: Last Vital Signs Temp 97.7 F 08/10/20 07:19 Pulse 96 08/10/20 08:11 Resp 18 08/10/20 07:19 BP 183/99 H 08/10/20 07:19 Pulse Ox 99 08/10/20 07:19 Body Mass Index 36.8 Const: General: awake Orientation/consciousness: patient oriented x3 Neck: Neck: Yes supple Resp: Auscultation: no rhonchi Cardio: Palpation: no palpable S3 Heart sounds: no rubs GI: Palpation (GI): Soft to palpation and Tenderness to palpation present (GI) Neuro: General: patient oriented x3 Motor exam (neuro): No Asterixis during motor activity present Objective Data Labs CBC & Chem 7: 08/10/20 06:52 08/10/20 06:52 Labs: Laboratory Results - last 24 hr 08/10/20 08/10/20 06:52 06:52 WBC 19.7 H RBC 4.89 Hgb 14.9 Hct 44.0 MCV 90.0 MCH 30.5 MCHC 33.9 RDW 13.2 Plt Count 278 MPV 10.9 Immature Gran % (Auto) 0.5 H Neut % (Auto) 80.5 H Lymph % (Auto) 11.1 L [place] % (Auto) 7.6 Eos % (Auto) 0.1 Baso % (Auto) 0.2 Lymph # (Auto) 2.2 [place] # (Auto) 1.5 H Eos # (Auto) 0.0 Baso # (Auto) 0.0 Abs Immat Gran (auto) 0.10 H Absolute Neuts (auto) 15.9 H Absolute Nucleated RBC 0.000 Nucleated RBC % (auto) 0.0 Sodium 136 Potassium 4.0 Chloride 100 Carbon Dioxide 23 Anion Gap 17 BUN 31 H D Creatinine 1.00 Estim Creat Clear Calc 78.8 Estimated GFR 59 Random Glucose 91 Calcium 9.1 Assessment & Plan Assessment and plan (1) Hypertensive urgency: Status: Acute Assessment and Plan: Agree with current medications Can ADD PO Hydralazine 25 mg TID Avoid Intravenous anti hypertensives. Keep I > O Check PA/PRA. (Ordered) Time Spent With Patient Time: Total time spent is greater than 50% in coordination of care (as documented) at patient's floor/unit and/or counseling patient: Procedures Date of Service Date of Service: 08/10/20
[2020-08-10] MEDS: Morphine Sulfate 4 MG/ML CARTRIDGE 3 MG IVPUSH (11:05)
--- NOTE | 2020-08-10 12:20 | HO.PM.IMPN ---
Subjective Subjective Date of Service: 08/10/20 Interval History: seen and examined this AM having severe abdominal pain, mainly in the LLQ denies nausea/vomiting denies ortez ROS General - no fevers or chills Cardiovascular - no chest pain Respiratory - no shortness of breath or cough Abdominal- +abdominal pain, mucous and blood in BM Physical Exam Vital Signs: Vital Signs: Last Vital Signs Temp 96.8 F 08/10/20 11:29 Pulse 75 08/10/20 11:29 Resp 16 08/10/20 11:29 BP 123/77 08/10/20 11:29 Pulse Ox 100 08/10/20 11:29 Body Mass Index 36.8 Const: Other: General - no acute distress, appears comfortable Cardiovascular - regular rate and rhythm, S1-S2 Lungs - normal respiratory effort, clear to auscultation bilaterally, no wheezing Abdomen - +TTP LLQ without rebound or guarding Extremities - no edema bilaterally Neuro - awake and alert, no focal deficits Objective Data Current Medications Generic Name Dose Route Start Last Admin Trade Name Dora PRN Reason Stop Dose Admin Acetaminophen 650 mg 08/06/20 20:11 08/10/20 07:26 Acetaminophen 325 Mg Tablet PO 650 mg Q6H PRN Administration Pain, Mild (Pain Scale 1-3) Acetaminophen/Butalbital/Caffeine 1 tab 08/08/20 12:18 Butalb/Acetamin/Caff 50/325/40 Tablet PO Q6H PRN Headache Albuterol Sulfate 2 puff 08/06/20 20:11 Albuterol Sulfate 90 Mcg 8 Gm Inhaler INHALE Q4H PRN Wheezing Docusate Sodium 100 mg 08/06/20 20:11 08/08/20 15:46 Docusate Sodium 100 Mg Capsule PO 100 mg DAILY PRN Administration Constipation Enoxaparin Sodium 40 mg 08/06/20 21:00 08/09/20 20:52 Enoxaparin Sodium 40 Mg/0.4 Ml Syringe SUBCUT 40 mg Q24H MAURISIO Administration Ergocalciferol 1,250 mcg 08/08/20 09:00 08/08/20 09:28 Ergocalciferol (Vitamin D2) 1,250 Mcg Capsule PO 1,250 mcg Saha@0900 MAURISIO Administration Famotidine 20 mg 08/06/20 20:11 Famotidine 20 Mg Tablet PO BEDTIME PRN acid reflux Fluticasone/Vilanterol 1 puff 08/06/20 08:00 08/10/20 08:08 Fluticasone/Vilanterol 100/25 Blst.W.Dev INHALE 1 puff RDAILY MAURISIO Administration Ceftriaxone Sodium 1 gm/ 50 mls @ 100 mls/hr 08/08/20 23:00 08/09/20 22:43 Sodium Chloride IV Infused Q24H MAURISIO Infusion Dextrose/Sodium Chloride 1,000 mls @ 50 mls/hr 08/08/20 22:30 08/09/20 20:54 D5ns IVCONT 50 mls/hr .Q20H MAURISIO Administration Metronidazole 500 mg in 100 mls @ 100 mls/hr 08/10/20 00:00 08/10/20 08:49 Flagyl IV Infused Q8H MAURISIO Infusion Levothyroxine Sodium 150 mcg 08/07/20 09:00 08/10/20 06:05 Levothyroxine Sodium 150 Mcg Tablet PO 150 mcg DAILY@0600 MAURISIO Administration Lisinopril 20 mg 08/07/20 09:00 08/10/20 07:26 Lisinopril 20 Mg Tablet PO 20 mg DAILY MAURISIO Administration Metoprolol Tartrate 50 mg 08/06/20 21:00 08/10/20 07:25 Metoprolol Tartrate 50 Mg Tablet PO 50 mg BID MAURISIO Administration Protocol Montelukast Sodium 10 mg 08/06/20 21:00 08/09/20 20:53 Montelukast Sodium 10 Mg Tablet PO 10 mg BEDTIME MAURISIO Administration Morphine Sulfate 3 mg 08/10/20 10:54 08/10/20 11:05 Morphine Sulfate 4 Mg/Ml Cartridge IVPUSH 3 mg Q3H PRN Administration Pain, Severe (Pain Scale 7-10) Omeprazole 20 mg 08/07/20 06:30 08/10/20 06:05 Omeprazole 20 Mg Capsule.Dr PO 20 mg DAILY@0630 MAURISIO Administration Ondansetron HCl 4 mg 08/06/20 20:11 08/10/20 00:00 Ondansetron Hcl 4 Mg/2 Ml Vial IVPUSH 4 mg Q8H PRN Administration Nausea and Vomiting Pharmacy Consult 1 each 08/06/20 15:30 Consult Rx Perform Med Rec MISCELLANE ONCE PRN Consult order Sodium Chloride 3 ml 08/07/20 00:00 08/10/20 07:28 0.9 % Sodium Chloride Flush 3 Ml Syringe IVFLUSH Not Given QSHIFT MAURISIO Sucralfate 1 gm 08/06/20 21:00 08/10/20 07:25 Sucralfate 1 Gm Tablet PO 1 gm BID MAURISIO Administration Sumatriptan Succinate 50 mg 08/07/20 16:08 08/07/20 16:56 Sumatriptan Succinate 50 Mg Tablet PO 50 mg DAILY PRN Administration Headache Labs CBC & Chem 7: 08/10/20 06:52 08/10/20 06:52 Labs: Laboratory Results - last 24 hr 08/10/20 08/10/20 06:52 06:52 WBC 19.7 H RBC 4.89 Hgb 14.9 Hct 44.0 MCV 90.0 MCH 30.5 MCHC 33.9 RDW 13.2 Plt Count 278 MPV 10.9 Immature Gran % (Auto) 0.5 H Neut % (Auto) 80.5 H Lymph % (Auto) 11.[address] [place] % (Auto) 7.6 Eos % (Auto) 0.1 Baso % (Auto) 0.2 Lymph # (Auto) 2.2 [place] # (Auto) 1.5 H Eos # (Auto) 0.0 Baso # (Auto) 0.0 Abs Immat Gran (auto) 0.10 H Absolute Neuts (auto) 15.9 H Absolute Nucleated RBC 0.000 Nucleated RBC % (auto) 0.0 Sodium 136 Potassium 4.0 Chloride 100 Carbon Dioxide 23 Anion Gap 17 BUN 31 H D Creatinine 1.00 Estim Creat Clear Calc 78.8 Estimated GFR 59 Random Glucose 91 Calcium 9.1 Assessment and Plan (1) Colitis: Status: Acute (2) Hypertensive urgency: Status: Acute (3) Headache: Status: Acute Assessment and Plan: 49-year-old female with past medical history of hypertension who presents to the hospital with complaints of a headache and elevated blood pressure. 1. Acute Colitis iv rocephin and flagyl start IV morphine for pain, tylenol not working continue with clear liquids, slowly advance to full per gen surg recs 2. hypertensive urgency due to non-compliance with home meds BP improved with current regime but susequently dropped -- likely secondary to her colitis causing dehydration. This AM, rebounded to the 180s again and Bp meds restarted 3. atypical chest pain - resolved - Came in with complaints of burning and stabbing in the midsternal and epigastric region - EKG shows no acute changes suggestive of ACS - Troponin ,3.5 , no further workup warranted 4. headache - resolved was likely tension headache, patient seen by Dr. Siegel he feels headache related to uncontrolled hypertension and migraine headache he recommend sumatriptan PRN 5. hypothyroidism - continue levothyroxine 6. asthma - no acute exacerbation - continue home inhalers DVT prophylaxis: Lovenox
[2020-08-10] MEDS: Dextrose 5 % and 0.9 % NaCl 1,000 ML 50 ML IVCONT (14:01)
--- NOTE | 2020-08-10 14:04 | P.PNGS_ITS ---
Subjective Subjective Date of Service: 08/11/20 Interval history: States she is more tender in the epigastric area No nausea No fever Has flatus- says she has had loose stools since yesterday Physical Exam Vital Signs: Vital Signs: Last Vital Signs Temp 96.8 F 08/10/20 11:29 Pulse 75 08/10/20 11:29 Resp 16 08/10/20 11:29 BP 123/77 08/10/20 11:29 Pulse Ox 100 08/10/20 11:29 Body Mass Index 36.8 Const: Other: Laboratory Results - last 24 hr 08/10/20 08/10/20 06:52 06:52 WBC 19.7 H RBC 4.89 Hgb 14.9 Hct 44.0 MCV 90.0 MCH 30.5 MCHC 33.9 RDW 13.2 Plt Count 278 MPV 10.9 Immature Gran % (A uto) 0.5 H Neut % (Auto) 80.5 H Lymph % (Auto) 11.1 L [place] % (Auto) 7.6 Eos % (Auto) 0.1 Baso % (Auto) 0.2 Lymph # (Auto) 2.2 [place] # (Auto) 1.5 H Eos # (Auto) 0.0 Baso # (Auto) 0.0 Abs Immat Gran (au to) 0.10 H Absolute Neuts (au to) 15.9 H Absolute Nucleated RBC 0.000 Nucleated RBC % (a uto) 0.0 Sodium 136 Potassium 4.0 Chloride 100 Carbon Dioxide 23 Anion Gap 17 BUN 31 H D Creatinine 1.00 Estim Creat Clear Calc 78.8 Estimated GFR 59 Random Glucose 91 Calcium 9.1 Complains of pain Resp: Effort & Inspection: normal respiratory effort Cardio: Rhythm: regular rhythm GI: Other: Tender, seems to be mostly on the epigastric area Inspection: No distended Palpation (GI): Soft to palpation Progress Note: A&P Assessment and plan (1) Colitis: Status: Acute Assessment and Plan: CT suggestive of colitis in the sigmoid - no surrounding inflammatory changes Has had bowel movements Also with suggestion of pancreatitis on CT scan - inflammatory changes on the pancreatic head noted White count elevated Check LFTs and amylase lipase - ordered Stool for C diff Pain control Abdominal otherwise known toxic looking but asking for pain meds Fall Risk Details Current Medications: Current Medications Generic Name Dose Route Start Last Admin Trade Name Freq PRN Reason Stop Dose Admin Acetaminophen 650 mg 08/06/20 20:11 08/10/20 07:26 Acetaminophen 325 Mg Tablet PO 650 mg Q6H PRN Administration Pain, Mild (Pain Scale 1-3) Acetaminophen/Butalbital/Caffeine 1 tab 08/08/20 12:18 Butalb/Acetamin/Caff 50/325/40 Tablet PO Q6H PRN Headache Albuterol Sulfate 2 puff 08/06/20 20:11 Albuterol Sulfate 90 Mcg 8 Gm Inhaler INHALE Q4H PRN Wheezing Docusate Sodium 100 mg 08/06/20 20:11 08/08/20 15:46 Docusate Sodium 100 Mg Capsule PO 100 mg DAILY PRN Administration Constipation Enoxaparin Sodium 40 mg 08/06/20 21:00 08/09/20 20:52 Enoxaparin Sodium 40 Mg/0.4 Ml Syringe SUBCUT 40 mg Q24H MAURISIO Administration Ergocalciferol 1,250 mcg 08/08/20 09:00 08/08/20 09:28 Ergocalciferol (Vitamin D2) 1,250 Mcg Capsule PO 1,250 mcg Saha@0900 MAURISIO Administration Famotidine 20 mg 08/06/20 20:11 Famotidine 20 Mg Tablet PO BEDTIME PRN acid reflux Fluticasone/Vilanterol 1 puff 08/06/20 08:00 08/10/20 08:08 Fluticasone/Vilanterol 100/25 Blst.W.Dev INHALE 1 puff RDAILY MAURISIO Administration Ceftriaxone Sodium 1 gm/ 50 mls @ 100 mls/hr 08/08/20 23:00 08/09/20 22:43 Sodium Chloride IV Infused Q24H MAURISIO Infusion Dextrose/Sodium Chloride 1,000 mls @ 50 mls/hr 08/08/20 22:30 08/10/20 14:01 D5ns IVCONT 50 mls/hr .Q20H MAURISIO Administration Metronidazole 500 mg in 100 mls @ 100 mls/hr 08/10/20 00:00 08/10/20 08:49 Flagyl IV Infused Q8H MAURISIO Infusion Levothyroxine Sodium 150 mcg 08/07/20 09:00 08/10/20 06:05 Levothyroxine Sodium 150 Mcg Tablet PO 150 mcg DAILY@0600 MAURISIO Administration Lisinopril 20 mg 08/07/20 09:00 08/10/20 07:26 Lisinopril 20 Mg Tablet PO 20 mg DAILY MAURISIO Administration Metoprolol Tartrate 50 mg 08/06/20 21:00 08/10/20 07:25 Metoprolol Tartrate 50 Mg Tablet PO 50 mg BID MAURISIO Administration Protocol Montelukast Sodium 10 mg 08/06/20 21:00 08/09/20 20:53 Montelukast Sodium 10 Mg Tablet PO 10 mg BEDTIME MAURISIO Administration Morphine Sulfate 3 mg 08/10/20 10:54 08/10/20 11:05 Morphine Sulfate 4 Mg/Ml Cartridge IVPUSH 3 mg Q3H PRN Administration Pain, Severe (Pain Scale 7-10) Omeprazole 20 mg 08/07/20 06:30 08/10/20 06:05 Omeprazole 20 Mg Capsule.Dr PO 20 mg DAILY@0630 MAURISIO Administration Ondansetron HCl 4 mg 08/06/20 20:11 08/10/20 00:00 Ondansetron Hcl 4 Mg/2 Ml Vial IVPUSH 4 mg Q8H PRN Administration Nausea and Vomiting Pharmacy Consult 1 each 08/06/20 15:30 Consult Rx Perform Med Rec MISCELLANE ONCE PRN Consult order Sodium Chloride 3 ml 08/07/20 00:00 08/10/20 07:28 0.9 % Sodium Chloride Flush 3 Ml Syringe IVFLUSH Not Given QSHIFT [facility] Sucralfate 1 gm 08/06/20 21:00 08/10/20 07:25 Sucralfate 1 Gm Tablet PO 1 gm BID MAURISIO Administration Sumatriptan Succinate 50 mg 08/07/20 16:08 08/07/20 16:56 Sumatriptan Succinate 50 Mg Tablet PO 50 mg DAILY PRN Administration Headache Time Spent With Patient Time: Total time spent is greater than 50% in coordination of care (as documented) at patient's floor/unit and/or counseling patient: Time with patient: 25 - 35 minutes Procedures Date of Service Date of Service: 08/10/20
[2020-08-10 14:27] LABS: Alanine Aminotransferase 17 U/L (0-31); Albumin Level 3.9 g/dL (3.5-5.0); Alkaline Phosphatase 57 U/L (39-117); Amylase 65 U/L (28-100); Aspartate Amino Transferase 17 U/L (5-31); Bilirubin Direct 0.2 mg/dL (0.0-0.5); Bilirubin Total 0.4 mg/dL (0.0-1.0); Lipase 9 U/L (8-78); Total Protein 6.7 g/dL (6.5-8.0)
--- NOTE | 2020-08-10 15:25 | PM.EVENT ---
Event Note Date of Service: 08/10/20 Event Note: Patient seen and examined on afternoon rounds Looks comfortable, watching a movie Abdomen remained soft with some diffuse tenderness CT reviewed again with Dr. Estrada - likely colitis of the right colon transverse colon and proximal left colon Inflammatory changes around the pancreatic head appear similar to old CT scan Labs do not suggest pancreatitis Continue treatment for colitis Await stool for C diff Follow labs Will continue to follow closely Discussed plan with patient
[2020-08-10] MEDS: 0.9 % Sodium Chloride Flush 3 ML SYRINGE IVFLUSH ×3 (16:41→23:44)
[2020-08-10 18:50] LABS: CDIFF Ag Negative (Negative); CDIFF Internal ctrl Dots and bkg OK (V); CDiff Toxin Negative (Negative)
[2020-08-10] MEDS: Enoxaparin Sodium 40 MG/0.4 ML SYRINGE SUBCUT (20:49)
[2020-08-10] MEDS: Montelukast Sodium 10 MG TABLET PO (20:50)
[2020-08-10] MEDS: cefTRIAXone sodium 1 GM in 0.9 % Sodium Chloride 50 ML IV (22:28)
[2020-08-11] VITALS (8 sets, daily range): BP systolic 119–176; BP diastolic 56–95; PULSE 63–89; RESP 16–20; TEMP 35.9–36.7; O2SAT 97–99
[2020-08-11] MEDS: Omeprazole 20 MG CAPSULE.DR PO (06:08)
[2020-08-11] MEDS: Levothyroxine Sodium 150 MCG TABLET PO (06:08)
[2020-08-11 07:11] LABS: Hematocrit 37.3 % (37-47); Hemoglobin 12.4 g/dl (12.0-16.0); Mean Corpuscular HGB Conc 33.2 g/dl (31.0-35.0); Mean Corpuscular Hemoglobin 30.5 pg (27.0-33.0); Mean Corpuscular Volume 91.9 fL (80-98); Mean Platelet Volume 10.5 fL (9.4-12.3); Platelet Count 245 X10*3/uL (160-400); Red Blood Count 4.06 X10*6/uL (4.20-5.50); Red Cell Distribution Width 13.4 % (11.0-16.0); White Blood Count 12.7 X10*3/uL (4.8-10.8)
[2020-08-11 07:43] LABS: Anion Gap 10 (12-20); Blood Urea Nitrogen 15 mg/dL (9-16); Carbon Dioxide 25 mmol/L (22-29); Chloride 108 mmol/L (96-108); Creatinine Clr Calc Pharmacy 109.5; Estimated Glomerular Filt Rate > 60; Glucose Random 80 mg/dL (60-115); Potassium 3.7 mmol/L (3.3-5.1); Sodium 139 mmol/L (135-145)
--- NOTE | 2020-08-11 07:58 | PM.PNGS ---
Subjective Subjective Date of Service: 08/11/20 Interval history: Feels much better although says she still has some pain on the upper abdomen Slept better overnight Still having loose stools but says this is improving No fever Physical Exam Vital Signs: Vital Signs: Last Vital Signs Temp 96.9 F 08/11/20 07:24 Pulse 82 08/11/20 07:24 Resp 17 08/11/20 07:24 BP 119/71 08/11/20 07:24 Pulse Ox 98 08/11/20 07:24 Body Mass Index 36.8 Laboratory Results - last 24 hr 08/10/20 08/10/20 08/10/20 06:52 13:10 17:24 WBC RBC Hgb Hct MCV MCH MCHC RDW Plt Count MPV Absolute Nucleated RBC Nucleated RBC % (a uto) Sodium 136 Potassium 4.0 Chloride 100 Carbon Dioxide 23 Anion Gap 17 BUN 31 H D Creatinine 1.00 Estim Creat Clear Calc 78.8 Estimated GFR 59 Random Glucose 91 Calcium 9.1 Total Bilirubin 0.4 Direct Bilirubin 0.2 AST 17 ALT 17 Alkaline Phosphata se 57 D Total Protein 6.7 Albumin 3.9 Amylase 65 Lipase 9 C. difficile Toxin A&B Negative C. difficile Antig en Negative C. difficile Inter pret SEE NOTE 08/11/20 08/11/20 06:10 06:10 WBC 12.7 H RBC 4.06 L Hgb 12.4 Hct 37.3 MCV 91.9 MCH 30.5 MCHC 33.2 RDW 13.4 Plt Count 245 MPV 10.5 Absolute Nucleated RBC 0.000 Nucleated RBC % (a uto) 0.0 Sodium 139 Potassium 3.7 Chloride 108 Carbon Dioxide 25 Anion Gap 10 L BUN 15 D Creatinine 0.72 Estim Creat Clear Calc 109.5 Estimated GFR > 60 Random Glucose 80 Calcium Total Bilirubin Direct Bilirubin AST ALT Alkaline Phosphata se Total Protein Albumin Amylase Lipase C. difficile Toxin A&B C. difficile Antig en C. difficile Inter pret Const: General: comfortable and no acute distress Resp: Effort & Inspection: normal respiratory effort Cardio: Rhythm: regular rhythm GI: Other: Mild tenderness mostly in the upper abdomen Palpation (GI): Soft to palpation, not firm and no guarding Progress Note: A&P Assessment and plan (1) Colitis: Status: Acute Assessment and Plan: Clinically much improved Continue antibiotic C diff test negative Check other stool cultures Looks well today Would keep on clear liquids for now Fall Risk Details Current Medications: Current Medications Generic Name Dose Route Start Last Admin Trade Name Freq PRN Reason Stop Dose Admin Acetaminophen 650 mg 08/06/20 20:11 08/10/20 20:53 Acetaminophen 325 Mg Tablet PO 650 mg Q6H PRN Administration Pain, Mild (Pain Scale 1-3) Acetaminophen/Butalbital/Caffeine 1 tab 08/08/20 12:18 Butalb/Acetamin/Caff 50/325/40 Tablet PO Q6H PRN Headache Albuterol Sulfate 2 puff 08/06/20 20:11 Albuterol Sulfate 90 Mcg 8 Gm Inhaler INHALE Q4H PRN Wheezing Docusate Sodium 100 mg 08/06/20 20:11 08/08/20 15:46 Docusate Sodium 100 Mg Capsule PO 100 mg DAILY PRN Administration Constipation Enoxaparin Sodium 40 mg 08/06/20 21:00 08/10/20 20:49 Enoxaparin Sodium 40 Mg/0.4 Ml Syringe SUBCUT 40 mg Q24H MAURISIO Administration Ergocalciferol 1,250 mcg 08/08/20 09:00 08/08/20 09:28 Ergocalciferol (Vitamin D2) 1,250 Mcg Capsule PO 1,250 mcg Saha@0900 MAURISIO Administration Famotidine 20 mg 08/06/20 20:11 Famotidine 20 Mg Tablet PO BEDTIME PRN acid reflux Fluticasone/Vilanterol 1 puff 08/06/20 08:00 08/10/20 08:08 Fluticasone/Vilanterol 100/25 Blst.W.Dev INHALE 1 puff RDAILY [facility]ISIO Administration Ceftriaxone Sodium 1 gm/ 50 mls @ 100 mls/hr 08/08/20 23:00 08/10/20 23:12 Sodium Chloride IV Infused Q24H [facility]IO Infusion Dextrose/Sodium Chloride 1,000 mls @ 50 mls/hr 08/08/20 22:30 08/10/20 14:01 D5ns IVCONT 50 mls/hr .Q20H [facility]ISIO Administration Metronidazole 500 mg in 100 mls @ 100 mls/hr 08/10/20 00:00 08/11/20 01:03 Flagyl IV Infused Q8H [facility] Infusion Levothyroxine Sodium 150 mcg 08/07/20 09:00 08/11/20 06:08 Levothyroxine Sodium 150 Mcg Tablet PO 150 mcg DAILY@0600 [facility] Administration Lisinopril 20 mg 08/07/20 09:00 08/10/20 07:26 Lisinopril 20 Mg Tablet PO 20 mg DAILY [facility] Administration Metoprolol Tartrate 50 mg 08/06/20 21:00 08/10/20 20:50 Metoprolol Tartrate 50 Mg Tablet PO 50 mg BID MAURISIO Administration Protocol Montelukast Sodium 10 mg 08/06/20 21:00 08/10/20 20:50 Montelukast Sodium 10 Mg Tablet PO 10 mg BEDTIME [facility]IO Administration Morphine Sulfate 3 mg 08/10/20 10:54 08/10/20 11:05 Morphine Sulfate 4 Mg/Ml Cartridge IVPUSH 3 mg Q3H PRN Administration Pain, Severe (Pain Scale 7-10) Omeprazole 20 mg 08/07/20 06:30 08/11/20 06:08 Omeprazole 20 Mg Capsule.Dr PO 20 mg DAILY@0630 MA[facility]IO Administration Ondansetron HCl 4 mg 08/06/20 20:11 08/10/20 00:00 Ondansetron Hcl 4 Mg/2 Ml Vial IVPUSH 4 mg Q8H PRN Administration Nausea and Vomiting Pharmacy Consult 1 each 08/06/20 15:30 Consult Rx Perform Med Rec MISCELLANE ONCE PRN Consult order Sodium Chloride 3 ml 08/07/20 00:00 08/10/20 23:44 0.9 % Sodium Chloride Flush 3 Ml Syringe IVFLUSH 3 ml QSHIFT MAURISIO Administration Sucralfate 1 gm 08/06/20 21:00 08/10/20 20:50 Sucralfate 1 Gm Tablet PO 1 gm BID MAURISIO Administration Sumatriptan Succinate 50 mg 08/07/20 16:08 08/07/20 16:56 Sumatriptan Succinate 50 Mg Tablet PO 50 mg DAILY PRN Administration Headache Time Spent With Patient Time: Total time spent is greater than 50% in coordination of care (as documented) at patient's floor/unit and/or counseling patient: Time with patient: 15 - 24 minutes Progress Note: Quality Stroke Does the patient have a stroke diagnosis?: No VTE Prior VTE?: No VTE Risk Level:: Medical - moderate - high VTE Device Contraindication: N/A - Device Ordered VTE Drug Contraindication: N/A - Med Ordered Procedures Date of Service Date of Service: 08/11/20
[2020-08-11 08:00] LABS: Calcium 8.7 mg/dL (8.4-10.2)
[2020-08-11] MEDS: Fluticasone/Vilanterol 100/25 BLST.W.DEV 1 PUFF INHALE (08:10)
[2020-08-11] MEDS: Acetaminophen 325 MG TABLET 650 MG PO ×2 (08:34→19:48)
[2020-08-11] MEDS: Sucralfate 1 GM TABLET PO ×2 (08:35→22:03)
[2020-08-11] MEDS: Metoprolol Tartrate 50 MG TABLET PO ×2 (08:35→22:03)
[2020-08-11] MEDS: lisinopriL 20 MG TABLET PO (08:35)
[2020-08-11] MEDS: metroNIDAZOLE/NS 500 MG/100 ML PIGGYBACK 100 MG IV ×3 (08:36→22:59)
--- NOTE | 2020-08-11 09:36 | PM.PNNEP ---
Subjective Subjective Date of Service: 08/11/20 Interval history: Events noted Had BM BP better controlled Physical Exam Vital Signs: Vital Signs: Last Vital Signs Temp 96.9 F 08/11/20 07:24 Pulse 85 08/11/20 08:35 Resp 17 08/11/20 07:24 BP 119/71 08/11/20 08:35 Pulse Ox 98 08/11/20 07:24 Body Mass Index 36.8 Const: General: awake Orientation/consciousness: patient oriented x3 Neck: Neck: Yes supple Resp: Auscultation: no rhonchi Cardio: Palpation: no palpable S3 Heart sounds: no rubs GI: Palpation (GI): Soft to palpation and Tenderness to palpation present (GI) Neuro: General: patient oriented x3 Motor exam (neuro): No Asterixis during motor activity present Objective Data Labs CBC & Chem 7: 08/11/20 06:10 08/11/20 06:10 Labs: Laboratory Results - last 24 hr 08/10/20 08/10/20 08/11/20 13:10 17:24 06:10 WBC 12.7 H RBC 4.06 L Hgb 12.4 Hct 37.3 MCV 91.9 MCH 30.5 MCHC 33.2 RDW 13.4 Plt Count 245 MPV 10.5 Absolute Nucleated RBC 0.000 Nucleated RBC % (auto) 0.0 Sodium Potassium Chloride Carbon Dioxide Anion Gap BUN Creatinine Estim Creat Clear Calc Estimated GFR Random Glucose Calcium Total Bilirubin 0.4 Direct Bilirubin 0.2 AST 17 ALT 17 Alkaline Phosphatase 57 D Total Protein 6.7 Albumin 3.9 Amylase 65 Lipase 9 C. difficile Toxin A&B Negative C. difficile Antigen Negative C. difficile Interpret SEE NOTE 08/11/20 06:10 WBC RBC Hgb Hct MCV MCH MCHC RDW Plt Count MPV Absolute Nucleated RBC Nucleated RBC % (auto) Sodium 139 Potassium 3.7 Chloride 108 Carbon Dioxide 25 Anion Gap 10 L BUN 15 D Creatinine 0.72 Estim Creat Clear Calc 109.5 Estimated GFR > 60 Random Glucose 80 Calcium 8.7 Total Bilirubin Direct Bilirubin AST ALT Alkaline Phosphatase Total Protein Albumin Amylase Lipase C. difficile Toxin A&B C. difficile Antigen C. difficile Interpret Assessment & Plan Assessment and plan (1) Colitis: Status: Acute Assessment and Plan: HTN BP better controlled No change i meds today Avoid hypotension Keep IVF for now until she can take adequate PO Time Spent With Patient Time: Total time spent is greater than 50% in coordination of care (as documented) at patient's floor/unit and/or counseling patient: Procedures Date of Service Date of Service: 08/11/20
[2020-08-11] MEDS: Morphine Sulfate 4 MG/ML CARTRIDGE 3 MG IVPUSH (10:11)
[2020-08-11] MEDS: ondansetron HCL 4 MG/2 ML VIAL IVPUSH ×2 (10:20→13:59)
--- NOTE | 2020-08-11 10:56 | P.PNIM_ITS ---
Subjective Subjective Date of Service: 08/11/20 Interval History: seen and examined this AM she feels much better but still having pain ROS General - no fevers or chills Cardiovascular - no chest pain Respiratory - no shortness of breath or cough Abdominal- +abdominal pain and diarrhea Physical Exam Vital Signs: Vital Signs: Last Vital Signs Temp 96.9 F 08/11/20 07:24 Pulse 85 08/11/20 08:35 Resp 17 08/11/20 07:24 BP 119/71 08/11/20 08:35 Pulse Ox 98 08/11/20 07:24 Body Mass Index 36.8 Const: Other: General - no acute distress, appears comfortable Cardiovascular - regular rate and rhythm, S1-S2 Lungs - normal respiratory effort, clear to auscultation bilaterally, no wheezing Abdomen - +TTP LLQ without rebound or guarding Extremities - no edema bilaterally Neuro - awake and alert, no focal deficits Objective Data Current Medications Generic Name Dose Route Start Last Admin Trade Name Freq PRN Reason Stop Dose Admin Acetaminophen 650 mg 08/06/20 20:11 08/11/20 08:34 Acetaminophen 325 Mg Tablet PO 650 mg Q6H PRN Administration Pain, Mild (Pain Scale 1-3) Acetaminophen/Butalbital/Caffeine 1 tab 08/08/20 12:18 Butalb/Acetamin/Caff 50/325/40 Tablet PO Q6H PRN Headache Albuterol Sulfate 2 puff 08/06/20 20:11 Albuterol Sulfate 90 Mcg 8 Gm Inhaler INHALE Q4H PRN Wheezing Docusate Sodium 100 mg 08/06/20 20:11 08/08/20 15:46 Docusate Sodium 100 Mg Capsule PO 100 mg DAILY PRN Administration Constipation Enoxaparin Sodium 40 mg 08/06/20 21:00 08/10/20 20:49 Enoxaparin Sodium 40 Mg/0.4 Ml Syringe SUBCUT 40 mg Q24H MAURISIO Administration Ergocalciferol 1,250 mcg 08/08/20 09:00 08/08/20 09:28 Ergocalciferol (Vitamin D2) 1,250 Mcg Capsule PO 1,250 mcg Saha@0900 MAURISIO Administration Famotidine 20 mg 08/06/20 20:11 Famotidine 20 Mg Tablet PO BEDTIME PRN acid reflux Fluticasone/Vilanterol 1 puff 08/06/20 08:00 08/11/20 08:10 Fluticasone/Vilanterol 100/25 Blst.W.Dev INHALE 1 puff RDAILY MA[facility]ISIO Administration Ceftriaxone Sodium 1 gm/ 50 mls @ 100 mls/hr 08/08/20 23:00 08/10/20 23:12 Sodium Chloride IV Infused Q24H [facility] Infusion Dextrose/Sodium Chloride 1,000 mls @ 50 mls/hr 08/08/20 22:30 08/11/20 10:13 D5ns IVCONT Not Given .Q20H [facility]ISIO Metronidazole 500 mg in 100 mls @ 100 mls/hr 08/10/20 00:00 08/11/20 09:35 Flagyl IV Infused Q8H [facility] Infusion Levothyroxine Sodium 150 mcg 08/07/20 09:00 08/11/20 06:08 Levothyroxine Sodium 150 Mcg Tablet PO 150 mcg DAILY@0600 MAURISIO Administration Lisinopril 20 mg 08/07/20 09:00 08/11/20 08:35 Lisinopril 20 Mg Tablet PO 20 mg DAILY MAURISIO Administration Metoprolol Tartrate 50 mg 08/06/20 21:00 08/11/20 08:35 Metoprolol Tartrate 50 Mg Tablet PO 50 mg BID MAURISIO Administration Protocol Montelukast Sodium 10 mg 08/06/20 21:00 08/10/20 20:50 Montelukast Sodium 10 Mg Tablet PO 10 mg BEDTIME MAURISIO Administration Morphine Sulfate 3 mg 08/10/20 10:54 08/11/20 10:11 Morphine Sulfate 4 Mg/Ml Cartridge IVPUSH 3 mg Q3H PRN Administration Pain, Severe (Pain Scale 7-10) Omeprazole 20 mg 08/07/20 06:30 08/11/20 06:08 Omeprazole 20 Mg Capsule.Dr PO 20 mg DAILY@0630 MAURISIO Administration Ondansetron HCl 4 mg 08/06/20 20:11 08/11/20 10:20 Ondansetron Hcl 4 Mg/2 Ml Vial IVPUSH 4 mg Q8H PRN Administration Nausea and Vomiting Pharmacy Consult 1 each 08/06/20 15:30 Consult Rx Perform Med Rec MISCELLANE ONCE PRN Consult order Sodium Chloride 3 ml 08/07/20 00:00 08/11/20 08:41 0.9 % Sodium Chloride Flush 3 Ml Syringe IVFLUSH Not Given QSHIFT MAURISIO Sucralfate 1 gm 08/06/20 21:00 08/11/20 08:35 Sucralfate 1 Gm Tablet PO 1 gm BID MAURISIO Administration Sumatriptan Succinate 50 mg 08/07/20 16:08 08/07/20 16:56 Sumatriptan Succinate 50 Mg Tablet PO 50 mg DAILY PRN Administration Headache Labs CBC & Chem 7: 08/11/20 06:10 08/11/20 06:10 Labs: Laboratory Results - last 24 hr 08/10/20 08/10/20 08/11/20 13:10 17:24 06:10 WBC 12.7 H RBC 4.06 L Hgb 12.4 Hct 37.3 MCV 91.9 MCH 30.5 MCHC 33.2 RDW 13.4 Plt Count 245 MPV 10.5 Absolute Nucleated RBC 0.000 Nucleated RBC % (auto) 0.0 Sodium Potassium Chloride Carbon Dioxide Anion Gap BUN Creatinine Estim Creat Clear Calc Estimated GFR Random Glucose Calcium Total Bilirubin 0.4 Direct Bilirubin 0.2 AST 17 ALT 17 Alkaline Phosphatase 57 D Total Protein 6.7 Albumin 3.9 Amylase 65 Lipase 9 C. difficile Toxin A&B Negative C. difficile Antigen Negative C. difficile Interpret SEE NOTE 08/11/20 06:10 WBC RBC Hgb Hct MCV MCH MCHC RDW Plt Count MPV Absolute Nucleated RBC Nucleated RBC % (auto) Sodium 139 Potassium 3.7 Chloride 108 Carbon Dioxide 25 Anion Gap 10 L BUN 15 D Creatinine 0.72 Estim Creat Clear Calc 109.5 Estimated GFR > 60 Random Glucose 80 Calcium 8.7 Total Bilirubin Direct Bilirubin AST ALT Alkaline Phosphatase Total Protein Albumin Amylase Lipase C. difficile Toxin A&B C. difficile Antigen C. difficile Interpret Quality Stroke Does the patient have a stroke diagnosis?: No VTE Prior VTE?: No VTE Risk Level:: Medical - moderate - high VTE Device Contraindication: N/A - Device Ordered VTE Drug Contraindication: N/A - Med Ordered Assessment and Plan (1) Colitis: Status: Acute (2) Hypertensive urgency: Status: Acute (3) Headache: Status: Acute Assessment and Plan: 49-year-old female with past medical history of hypertension who presents to the hospital with complaints of a headache and elevated blood pressure. 1. Acute Colitis slowly improving c. diff negative, stool cultures pending, luekocytosis improving iv rocephin and flagyl continue iv fluids and iv pain control, will taper to oral pain meds as t oelrated continue with clear liquids, slowly advance to full per gen surg recs 2. hypertensive urgency due to non-compliance with home meds continue current regime 3. atypical chest pain - resolved - Came in with complaints of burning and stabbing in the midsternal and epigastric region - EKG shows no acute changes suggestive of ACS - Troponin ,3.5 , no further workup warranted 4. headache - resolved was likely tension headache, patient seen by Dr. Siegel he feels headache related to uncontrolled hypertension and migraine headache he recommend sumatriptan PRN 5. hypothyroidism - continue levothyroxine 6. asthma - no acute exacerbation - continue home inhalers DVT prophylaxis: Lovenox
[2020-08-11] MEDS: Dextrose 5 % and 0.9 % NaCl 1,000 ML 50 ML IVCONT (14:00)
--- NOTE | 2020-08-11 14:16 | MHC.CM.PN ---
PER PHYSICIAN ROUNDS, PLAN IS CONTINUE IV ABX AND PAIN MEDICATION, WITH A DC PLAN OF Sunday08/13/20
[2020-08-11] MEDS: cefTRIAXone sodium 1 GM in 0.9 % Sodium Chloride 50 ML IV (22:02)
[2020-08-11] MEDS: Montelukast Sodium 10 MG TABLET PO (22:03)
[2020-08-11] MEDS: Enoxaparin Sodium 40 MG/0.4 ML SYRINGE SUBCUT (22:03)
[2020-08-12] VITALS (21 sets, daily range): BP systolic 144–193; BP diastolic 74–108; PULSE 71–90; RESP 15–70; TEMP 36.2–36.9; O2SAT 96–99; BMI 36.8; BMI 38.6
[2020-08-12] MEDS: Morphine Sulfate 4 MG/ML CARTRIDGE 3 MG IVPUSH (00:05)
[2020-08-12] MEDS: ondansetron HCL 4 MG/2 ML VIAL IVPUSH ×2 (00:05→09:02)
[2020-08-12] MEDS: Omeprazole 20 MG CAPSULE.DR PO (05:48)
[2020-08-12] MEDS: Levothyroxine Sodium 150 MCG TABLET PO (05:48)
[2020-08-12] MEDS: metroNIDAZOLE/NS 500 MG/100 ML PIGGYBACK 100 MG IV ×3 (07:38→23:26)
[2020-08-12] MEDS: Sucralfate 1 GM TABLET PO ×2 (07:41→21:33)
[2020-08-12] MEDS: Acetaminophen 325 MG TABLET 650 MG PO (07:41)
[2020-08-12] MEDS: lisinopriL 20 MG TABLET PO (07:48)
[2020-08-12] MEDS: Metoprolol Tartrate 50 MG TABLET PO ×2 (07:48→21:33)
--- NOTE | 2020-08-12 08:21 | P.PNGS_ITS ---
Subjective Subjective Date of Service: 08/12/20 Interval history: Diarrhea better but still present Says she still has abdominal pain mostly on the No nausea or vomiting Physical Exam Vital Signs: Vital Signs: Last Vital Signs Temp 97.1 F 08/12/20 07:31 Pulse 73 08/12/20 07:48 Resp 20 08/12/20 07:31 BP 188/102 H 08/12/20 07:48 Pulse Ox 98 08/12/20 07:31 Body Mass Index 36.8 Const: General: no acute distress Resp: Effort & Inspection: normal respiratory effort Cardio: Rhythm: regular rhythm GI: Other: Soft, no guarding rebound but the still with tenderness on the left upper quadrant mostly Progress Note: A&P Assessment and plan (1) Colitis: Status: Acute Assessment and Plan: Diarrhea improving but still with pain GI consult? - stool studies to investigate etiology of colitis Keep on clear liquids White count improving She otherwise is not toxic looking Will continue to follow Fall Risk Details Current Medications: Current Medications Generic Name Dose Route Start Last Admin Trade Name Dora PRN Reason Stop Dose Admin Acetaminophen 650 mg 08/06/20 20:11 08/12/20 07:41 Acetaminophen 325 Mg Tablet PO 650 mg Q6H PRN Administration Pain, Mild (Pain Scale 1-3) Acetaminophen/Butalbital/Caffeine 1 tab 08/08/20 12:18 Butalb/Acetamin/Caff 50/325/40 Tablet PO Q6H PRN Headache Albuterol Sulfate 2 puff 08/06/20 20:11 Albuterol Sulfate 90 Mcg 8 Gm Inhaler INHALE Q4H PRN Wheezing Docusate Sodium 100 mg 08/06/20 20:11 08/08/20 15:46 Docusate Sodium 100 Mg Capsule PO 100 mg DAILY PRN Administration Constipation Enoxaparin Sodium 40 mg 08/06/20 21:00 08/11/20 22:03 Enoxaparin Sodium 40 Mg/0.4 Ml Syringe SUBCUT 40 mg Q24H MAURISIO Administration Ergocalciferol 1,250 mcg 08/08/20 09:00 08/08/20 09:28 Ergocalciferol (Vitamin D2) 1,250 Mcg Capsule PO 1,250 mcg Saha@0900 MAURISIO Administration Famotidine 20 mg 08/06/20 20:11 Famotidine 20 Mg Tablet PO BEDTIME PRN acid reflux Fluticasone/Vilanterol 1 puff 08/06/20 08:00 08/11/20 08:10 Fluticasone/Vilanterol 100/25 Blst.W.Dev INHALE 1 puff RDAILY [facility] Administration Ceftriaxone Sodium 1 gm/ 50 mls @ 100 mls/hr 08/08/20 23:00 08/11/20 22:58 Sodium Chloride IV Infused Q24H [facility] Infusion Metronidazole 500 mg in 100 mls @ 100 mls/hr 08/10/20 00:00 08/12/20 07:38 Flagyl IV 100 mls/hr Q8H [facility] Administration Levothyroxine Sodium 150 mcg 08/07/20 09:00 08/12/20 05:48 Levothyroxine Sodium 150 Mcg Tablet PO 150 mcg DAILY@0600 [facility] Administration Lisinopril 20 mg 08/07/20 09:00 08/12/20 07:48 Lisinopril 20 Mg Tablet PO 20 mg DAILY [facility] Administration Metoprolol Tartrate 50 mg 08/06/20 21:00 08/12/20 07:48 Metoprolol Tartrate 50 Mg Tablet PO 50 mg BID [facility] Administration Protocol Montelukast Sodium 10 mg 08/06/20 21:00 08/11/20 22:03 Montelukast Sodium 10 Mg Tablet PO 10 mg BEDTIME [facility] Administration Morphine Sulfate 3 mg 08/10/20 10:54 08/12/20 00:05 Morphine Sulfate 4 Mg/Ml Cartridge IVPUSH 3 mg Q3H PRN Administration Pain, Severe (Pain Scale 7-10) Omeprazole 20 mg 08/07/20 06:30 08/12/20 05:48 Omeprazole 20 Mg Capsule.Dr PO 20 mg DAILY@0630 [facility] Administration Ondansetron HCl 4 mg 08/06/20 20:11 08/12/20 00:05 Ondansetron Hcl 4 Mg/2 Ml Vial IVPUSH 4 mg Q8H PRN Administration Nausea and Vomiting Pharmacy Consult 1 each 08/06/20 15:30 Consult Rx Perform Med Rec MISCELLANE ONCE PRN Consult order Sodium Chloride 3 ml 08/07/20 00:00 08/12/20 07:41 0.9 % Sodium Chloride Flush 3 Ml Syringe IVFLUSH Not Given QSHIFT [facility] Sucralfate 1 gm 08/06/20 21:00 08/12/20 07:41 Sucralfate 1 Gm Tablet PO 1 gm BID MAURISIO Administration Sumatriptan Succinate 50 mg 08/07/20 16:08 08/07/20 16:56 Sumatriptan Succinate 50 Mg Tablet PO 50 mg DAILY PRN Administration Headache Time Spent With Patient Time: Total time spent is greater than 50% in coordination of care (as documented) at patient's floor/unit and/or counseling patient: Time with patient: 15 - 24 minutes Procedures Date of Service Date of Service: 08/12/20 Quality Stroke Does the patient have a stroke diagnosis?: No VTE Prior VTE?: No VTE Risk Level:: Medical - moderate - high VTE Device Contraindication: N/A - Device Ordered VTE Drug Contraindication: N/A - Med Ordered
[2020-08-12] MEDS: Fluticasone/Vilanterol 100/25 BLST.W.DEV 1 PUFF INHALE (08:26)
--- NOTE | 2020-08-12 09:00 | PM.PNNEP ---
Subjective Subjective Date of Service: 08/12/20 Interval history: Events noted HAs diarrhea Hungry No n/v Physical Exam Vital Signs: Vital Signs: Last Vital Signs Temp 97.1 F 08/12/20 07:31 Pulse 87 08/12/20 08:27 Resp 20 08/12/20 07:31 BP 188/102 H 08/12/20 07:48 Pulse Ox 98 08/12/20 07:31 Body Mass Index 36.8 Const: General: alert and awake Orientation/consciousness: patient oriented x3 Neck: Neck: Yes supple Resp: Auscultation: no rhonchi Cardio: Palpation: no palpable S3 Heart sounds: no rubs GI: Palpation (GI): Soft to palpation and Tenderness to palpation present (GI) Neuro: General: patient oriented x3 Motor exam (neuro): No Asterixis during motor activity present Objective Data Labs CBC & Chem 7: 08/11/20 06:10 08/11/20 06:10 Microbiology Microbiology Results: Microbiology 08/11/20 Unknown Stool Stool Culture - Preliminary No growth to date. Assessment & Plan Assessment and plan (1) Colitis: Status: Acute Assessment and Plan: HTN BP noted ADD NORVASC 5 mg DAILY check PA/PRA ( Pending) Avoid hypotension No need for IVF Time Spent With Patient Time: Total time spent is greater than 50% in coordination of care (as documented) at patient's floor/unit and/or counseling patient: Procedures Date of Service Date of Service: 08/12/20 Progress Note: Quality Stroke Does the patient have a stroke diagnosis?: No
--- NOTE | 2020-08-12 11:19 | P.PNIM_ITS ---
Subjective Subjective Date of Service: 08/12/20 Interval History: seen and examined this AM pain persists as does diarrhea - 3 bm, watery already this AM ROS General - no fevers or chills Cardiovascular - no chest pain Respiratory - no shortness of breath or cough Abdominal- +abdominal pain and diarrhea Physical Exam Vital Signs: Vital Signs: Last Vital Signs Temp 97.1 F 08/12/20 07:31 Pulse 87 08/12/20 08:27 Resp 20 08/12/20 07:31 BP 188/102 H 08/12/20 07:48 Pulse Ox 98 08/12/20 07:31 Body Mass Index 36.8 Const: Other: General - no acute distress, appears comfortable Cardiovascular - regular rate and rhythm, S1-S2 Lungs - normal respiratory effort, clear to auscultation bilaterally, no wheezing Abdomen - +TTP LLQ without rebound or guarding Extremities - no edema bilaterally Neuro - awake and alert, no focal deficits Objective Data Current Medications Generic Name Dose Route Start Last Admin Trade Name Freq PRN Reason Stop Dose Admin Acetaminophen 650 mg 08/06/20 20:11 08/12/20 07:41 Acetaminophen 325 Mg Tablet PO 650 mg Q6H PRN Administration Pain, Mild (Pain Scale 1-3) Acetaminophen/Butalbital/Caffeine 1 tab 08/08/20 12:18 Butalb/Acetamin/Caff 50/325/40 Tablet PO Q6H PRN Headache Albuterol Sulfate 2 puff 08/06/20 20:11 Albuterol Sulfate 90 Mcg 8 Gm Inhaler INHALE Q4H PRN Wheezing Docusate Sodium 100 mg 08/06/20 20:11 08/08/20 15:46 Docusate Sodium 100 Mg Capsule PO 100 mg DAILY PRN Administration Constipation Enoxaparin Sodium 40 mg 08/06/20 21:00 08/11/20 22:03 Enoxaparin Sodium 40 Mg/0.4 Ml Syringe SUBCUT 40 mg Q24H MAURISIO Administration Ergocalciferol 1,250 mcg 08/08/20 09:00 08/08/20 09:28 Ergocalciferol (Vitamin D2) 1,250 Mcg Capsule PO 1,250 mcg Saha@0900 MAURISIO Administration Famotidine 20 mg 08/06/20 20:11 Famotidine 20 Mg Tablet PO BEDTIME PRN acid reflux Fluticasone/Vilanterol 1 puff 08/06/20 08:00 08/12/20 08:26 Fluticasone/Vilanterol 100/25 Blst.W.Dev INHALE 1 puff RDAILY MAURISIO Administration Ceftriaxone Sodium 1 gm/ 50 mls @ 100 mls/hr 08/08/20 23:00 08/11/20 22:58 Sodium Chloride IV Infused Q24H MAURISIO Infusion Metronidazole 500 mg in 100 mls @ 100 mls/hr 08/10/20 00:00 08/12/20 08:57 Flagyl IV Infused Q8H [facility] Infusion Levothyroxine Sodium 150 mcg 08/07/20 09:00 08/12/20 05:48 Levothyroxine Sodium 150 Mcg Tablet PO 150 mcg DAILY@0600 MAURISIO Administration Lisinopril 20 mg 08/07/20 09:00 08/12/20 07:48 Lisinopril 20 Mg Tablet PO 20 mg DAILY MAURISOI Administration Metoprolol Tartrate 50 mg 08/06/20 21:00 08/12/20 07:48 Metoprolol Tartrate 50 Mg Tablet PO 50 mg BID MAURISIO Administration Protocol Montelukast Sodium 10 mg 08/06/20 21:00 08/11/20 22:03 Montelukast Sodium 10 Mg Tablet PO 10 mg BEDTIME MAURISIO Administration Morphine Sulfate 3 mg 08/10/20 10:54 08/12/20 00:05 Morphine Sulfate 4 Mg/Ml Cartridge IVPUSH 3 mg Q3H PRN Administration Pain, Severe (Pain Scale 7-10) Omeprazole 20 mg 08/07/20 06:30 08/12/20 05:48 Omeprazole 20 Mg Capsule.Dr PO 20 mg DAILY@0630 MAURISIO Administration Ondansetron HCl 4 mg 08/06/20 20:11 08/12/20 09:02 Ondansetron Hcl 4 Mg/2 Ml Vial IVPUSH 4 mg Q8H PRN Administration Nausea and Vomiting Pharmacy Consult 1 each 08/06/20 15:30 Consult Rx Perform Med Rec MISCELLANE ONCE PRN Consult order Sodium Chloride 3 ml 08/07/20 00:00 08/12/20 07:41 0.9 % Sodium Chloride Flush 3 Ml Syringe IVFLUSH Not Given QSHIFT [facility] Sucralfate 1 gm 08/06/20 21:00 08/12/20 07:41 Sucralfate 1 Gm Tablet PO 1 gm BID MAURISIO Administration Sumatriptan Succinate 50 mg 08/07/20 16:08 08/07/20 16:56 Sumatriptan Succinate 50 Mg Tablet PO 50 mg DAILY PRN Administration Headache Labs CBC & Chem 7: 08/11/20 06:10 08/11/20 06:10 Microbiology Microbiology Results: Microbiology 08/11/20 Unknown Stool Culture - Preliminary Stool No growth to date. Quality Stroke Does the patient have a stroke diagnosis?: No VTE Prior VTE?: No VTE Risk Level:: Medical - moderate - high VTE Device Contraindication: N/A - Device Ordered VTE Drug Contraindication: N/A - Med Ordered Assessment and Plan (1) Colitis: Status: Acute (2) Hypertensive urgency: Status: Acute (3) Headache: Status: Acute Assessment and Plan: 49-year-old female with past medical history of hypertension who presents to the hospital with complaints of a headache and elevated blood pressure. 1. Acute Colitis slowly improving c. diff negative, stool cultures pending, luekocytosis improving, will recheck labs this AM continue iv rocephin day #5 and flagyl day #3 will consult GI as her symptoms appear to be persisting longer than expected continue iv fluids and iv pain control, will taper to oral pain meds as tolerated continue with clear liquids, slowly advance to full per gen surg recs 2. hypertensive urgency due to non-compliance with home meds continue current regime 3. atypical chest pain - resolved - Came in with complaints of burning and stabbing in the midsternal and epiga stric region - EKG shows no acute changes suggestive of ACS - Troponin ,3.5 , no further workup warranted 4. headache - resolved was likely tension headache, patient seen by Dr. Siegel he feels headache related to uncontrolled hypertension and migraine headache he recommend sumatriptan PRN 5. hypothyroidism - continue levothyroxine 6. asthma - no acute exacerbation - continue home inhalers DVT prophylaxis: Lovenox
[2020-08-12 11:46] LABS: Hematocrit 36.3 % (37-47); Hemoglobin 12.2 g/dl (12.0-16.0); Mean Corpuscular HGB Conc 33.6 g/dl (31.0-35.0); Mean Corpuscular Hemoglobin 30.9 pg (27.0-33.0); Mean Corpuscular Volume 91.9 fL (80-98); Mean Platelet Volume 10.1 fL (9.4-12.3); Platelet Count 235 X10*3/uL (160-400); Red Blood Count 3.95 X10*6/uL (4.20-5.50); Red Cell Distribution Width 13.1 % (11.0-16.0); White Blood Count 10.3 X10*3/uL (4.8-10.8)
[2020-08-12] MEDS: amLODIPine Besylate 5 MG TABLET PO (12:37)
--- NOTE | 2020-08-12 12:47 | P.CNGI_ITS ---
History of Present Illness Data of Consult Service Date: 08/12/20 Requesting physician: Jay Draper Primary Care Provider: Tommy Smith MD HPI Reason for consult: Diarrhea 49 YF known to me from previous GI clinic visits seen at [facility] [place] [place] [facility] on 08/06/2020 with headaches elevated blood pressure. HPI narrative: 49 yo female with asthma, IBS, HTN, HLD, GERD on metoprolol, lisinopril/HCTZ, hydralazine for her blood pressures no new changes and compliant with low salt diet comes in with c/o headaches and HTN up to 170s at home, no trauma, the entire head is painful, no AC therapy, no fevers, felt her L side of her body was hot and melty yesterday but no weakness, reported hx of TIA Patient complains of chronic left upper quadrant pain which has become worse during her hospitalization. Pain is 6-10 x 10 in intensity, constant with intermittent worsening She has been sleeping on the left side and has been using warm compresses with minimal improvement. She complains of fever, chills, nausea and denies vomiting. She has a history of diarrhea followed by constipation. She has been having persistent diarrhea for the past 3-4 days with 6-7 watery bowel movements daily. She is also noted blood in the stool with some clots. Patient denies mouth ulcers, skin rash or joint pains. IMAGING STUDIES: 08/08/[address] SCAN SHOWED: GASTROINTESTINAL TRACT: The colon is relatively distended and filled with fluid and stool. There is a slight caliber change of the distal sigmoid colon. The distal sigmoid colon appears less dilated Question of mild wall thickening. Appearance is questionable colitis and partial large bowel obstruction. The stomach is slightly distended and fluid-filled. The distal thoracic esophagus is slightly distended and fluid-filled. The small bowel does not appear dilated. The appendix is not seen and has probably been removed. ABDOMINAL WALL: No significant hernia is appreciated. LYMPH NODES: There are small retroperitoneal lymph nodes. No enlarged lymph nodes are seen. PELVIC VISCERA: The uterus appears to have been removed. No pelvic mass is seen. IMPRESSION: Distended fluid and stool-filled colon. There is a slight caliber change of the distal sigmoid colon which does not appear as dilated as questionable wall thickening. Appearance is suggestive of colitis and partial obstruction. Small bilateral renal stones. Stranding of the fat adjacent to the head of the pancreas similar to previous exams. 01/[address] SCAN SHOWED: 2 mm small radiopaque calculi nonobstructive lower pole right kidney and mid pole left kidney. There are extrarenal kidney pelvises seen. Mild constipation without obstruction. No evidence of panniculitis or diverticulitis. Small hiatal hernia. Fatty lesion anterior body/tail of pancreas junction is stable. ENDOSCOPIC STUDIES: 11/18/19 COLONOSCOPY SHOWED: No polyps were detected Random bx obtained from the colon Moderate diverticulosis seen in the sigmoid colon Moderate hemorrhoids on retroflexed exam. Plan: Patient has an appointment on 12/05/19 in the GI Clinic with Sky Horton M.D.-. Repeat Colonoscopy interval based on path results in 5 years if colon bxs are normal. BIOPSIES SHOWED: A. Colon, random, biopsy: Colonic mucosa within normal limits; negative for active, chronic or microscopic colitis. B. Rectum, biopsy: Colonic mucosa within normal limits; negative for active, chronic or microscopic colitis. 09/2017 COLONOSCOPY SHOWED: Two adenomatous and one hyperplastic polyps removed Patchy erythmea in the descending colon - likely resolving infectious or ischemic colitis - possible source of rectal bleeding. Random biopsies obtained from the right and left colon which were normal. Mild diverticulosis seen in the sigmoid colon Small hemorrhoids on retroflexed exam. Plan: Patient has an appointment on 10/23/17 in the GI Clinic with Sky Horton M.D. Repeat Colonoscopy in 5 years if polyps are adenomatous 02/04/19 EGD SHOWED: Esophagus: GE junction at 32 cms, small hiatal hernia 32 to 35 cms. A 1 cms focal ulcer at GE junction - likely healing MW tear or esophagitis due to GERD. Stomach: Moderate erythema with healing erosions in the gastric body and hemorrhagic erosions in the antrum. Biopsies were obtained. Grade 3 flap valve on retroflexed examination of the cardia. Duodenum: Normal bulb and descending duodenum. Biopsies obtained from 3rd part of duodenum to check for celiac sprue. Had GB surgery several yrs ago. Review of Systems Constitutional: Constitutional: Reports chills, Reports fever(s), Reports headache(s) and Denies weight loss Eyes: Eyes: Denies eye discharge and Denies irritation ENT: Reports Normal hearing present, Denies dysphagia, Denies dizziness and Reports headache(s) Cardiovascular: Cardiovascular: Denies chest pain, Denies leg edema and Denies dyspnea on exertion Respiratory: Respiratory: Denies cough, Denies dyspnea on exertion and Denies wheezing Gastrointestinal: Gastrointestinal: Reports abdominal pain, Denies change in bowel habits, Denies dysphagia, Denies heartburn and Reports diarrhea Genitourinary: Genitourinary: Denies difficulty voiding and Denies dysuria Musculoskeletal: Musculoskeletal: Denies back pain and Denies arthralgias Integumentary/Breasts: Skin/Breast: Denies pruritus, Denies rash and Denies jaundice Neurologic: Reports Normal hearing present, Denies Abnormal speech present, Denies dizziness, Reports headache(s) and Denies seizure-like activity Psychiatric: Psychiatric: Denies anxiety, Denies depression and Denies panic attacks Endocrine: Endocrine: Denies cold intolerance, Denies flushing and Denies heat intolerance Hematologic/Lymphatic: Hematologic/Lymphatic: Denies easy bleeding and Denies easy bruising Allergic/Immunologic: Allergic/Immunologic: Denies wheezing PMFSH Past Medical History Medical History (Updated 08/09/20 @ 09:16 by Nelson Murguia MD) Allergic rhinitis Asthma Colitis Constipation Esophageal spasm Fibromyalgia GERD (gastroesophageal reflux disease) History of NM (myocardial infarction) History of migraine headaches History of TIA (transient ischemic attack) Hypercholesterolemia Hypertension Hypothyroidism Kidney stones Multinodular thyroid Obesity (BMI 30-39.9) Ovarian cyst Pancreatic cyst Rectal bleeding Sciatic nerve pain Thyroid nodule Vitamin D deficiency Family History Family History Father Family history of high blood pressure History of high cholesterol Mother History of diabetes mellitus Family history of high blood pressure Family history of asthma History of fibromyalgia Liver disease Surgical History Surgical History H/O lithotripsy H/O: hysterectomy History of cholecystectomy (~2003) History of colonoscopy (~11/16/19) History of kidney surgery History of thyroidectomy (~11/2018) Hx of appendectomy Hx of bilateral breast reduction surgery Social History Social History Household Members: None Housing: House Alcohol intake: never Patient Tobacco Use Status: Never used Tobacco Years Smoked: 3 Use of substances other than those prescribed or required for medical reasons: No Substance Use Type: Marijuana Currently Displaying Signs/Symptoms of Drug Intoxication Withdrawal: No Have you been hit, kicked, punched, or otherwise hurt by someone within the past year? If so, by whom?: No Do you feel safe in your current relationship?: No Current Relationship Is there a partner from a previous relationship who is making you feel unsafe now?: No Are you made to feel afraid or neglected: No Spiritual Healthcare Practices: n/a Mandaeism Healthcare Practices: n/a Cultural Healthcare Practices: n/a Advance Directives: No Advance Directives Information Provided: Yes Do you have thoughts of harming others: None Do you have a plan to hurt others: No Plan Recently lost weight without trying: No Eating poorly because of decreased appetite: No Patient : No : No Poor oral hygiene: No service: No Current occupational status: disabled Meds Allergies Allergy/AdvReac Type Severity Reaction Status Date / Time pineapple [PINEAPPLE] Allergy Severe ANAPHYLAXIS Verified 06/30/20 09:13 aspirin [ASA] Allergy Mild UPSET Verified 06/30/20 09:13 STOMACH levofloxacin [From Levaquin] Allergy Mild SWELLING,RASH, Verified 06/30/20 09:13 rash oxycodone [From Percocet] Allergy Mild SOB,RASH Verified 06/30/20 09:13 acetaminophen [Percocet] Allergy Unknown rash Verified 06/30/20 09:13 Iodinated Contrast Media Allergy Unknown SOB,RASH Verified 06/30/20 09:13 [IV Dye, Iodine Containing] Active Medications: Current Medications Generic Name Dose Route Start Last Admin Trade Name Freq PRN Reason Stop Dose Admin Acetaminophen 650 mg 08/06/20 20:11 08/12/20 07:41 Acetaminophen 325 Mg Tablet PO 650 mg Q6H PRN Administration Pain, Mild (Pain Scale 1-3) Acetaminophen/Butalbital/Caffeine 1 tab 08/08/20 12:18 Butalb/Acetamin/Caff 50/325/40 Tablet PO Q6H PRN Headache Albuterol Sulfate 2 puff 08/06/20 20:11 Albuterol Sulfate 90 Mcg 8 Gm Inhaler INHALE Q4H PRN Wheezing Amlodipine Besylate 5 mg 08/12/20 12:15 08/12/20 12:37 Amlodipine Besylate 5 Mg Tablet PO 5 mg DAILY MAURISIO Administration Protocol Docusate Sodium 100 mg 08/06/20 20:11 08/08/20 15:46 Docusate Sodium 100 Mg Capsule PO 100 mg DAILY PRN Administration Constipation Enoxaparin Sodium 40 mg 08/06/20 21:00 08/11/20 22:03 Enoxaparin Sodium 40 Mg/0.4 Ml Syringe SUBCUT 40 mg Q24H MAURISIO Administration Ergocalciferol 1,250 mcg 08/08/20 09:00 08/08/20 09:28 Ergocalciferol (Vitamin D2) 1,250 Mcg Capsule PO 1,250 mcg Saha@0900 MAURISIO Administration Famotidine 20 mg 08/06/20 20:11 Famotidine 20 Mg Tablet PO BEDTIME PRN acid reflux Fluticasone/Vilanterol 1 puff 08/06/20 08:00 08/12/20 08:26 Fluticasone/Vilanterol 100/25 Blst.W.Dev INHALE 1 puff RDAILY MAURISIO Administration Ceftriaxone Sodium 1 gm/ 50 mls @ 100 mls/hr 08/08/20 23:00 08/11/20 22:58 Sodium Chloride IV Infused Q24H MAURISIO Infusion Metronidazole 500 mg in 100 mls @ 100 mls/hr 08/10/20 00:00 08/12/20 08:57 Flagyl IV Infused Q8H MAURISIO Infusion Levothyroxine Sodium 150 mcg 08/07/20 09:00 08/12/20 05:48 Levothyroxine Sodium 150 Mcg Tablet PO 150 mcg DAILY@0600 MAURISIO Administration Lisinopril 20 mg 08/07/20 09:00 08/12/20 07:48 Lisinopril 20 Mg Tablet PO 20 mg DAILY MAURISIO Administration Metoprolol Tartrate 50 mg 08/06/20 21:00 08/12/20 07:48 Metoprolol Tartrate 50 Mg Tablet PO 50 mg BID MAURISIO Administration Protocol Montelukast Sodium 10 mg 08/06/20 21:00 08/11/20 22:03 Montelukast Sodium 10 Mg Tablet PO 10 mg BEDTIME MAURISIO Administration Morphine Sulfate 3 mg 08/10/20 10:54 08/12/20 00:05 Morphine Sulfate 4 Mg/Ml Cartridge IVPUSH 3 mg Q3H PRN Administration Pain, Severe (Pain Scale 7-10) Omeprazole 20 mg 08/07/20 06:30 08/12/20 05:48 Omeprazole 20 Mg Capsule.Dr PO 20 mg DAILY@0630 MAURISIO Administration Ondansetron HCl 4 mg 08/06/20 20:11 08/12/20 09:02 Ondansetron Hcl 4 Mg/2 Ml Vial IVPUSH 4 mg Q8H PRN Administration Nausea and Vomiting Pharmacy Consult 1 each 08/06/20 15:30 Consult Rx Perform Med Rec MISCELLANE ONCE PRN Consult order Sodium Chloride 3 ml 08/07/20 00:00 08/12/20 07:41 0.9 % Sodium Chloride Flush 3 Ml Syringe IVFLUSH Not Given QSHIFT MAURISIO Sucralfate 1 gm 08/06/20 21:00 08/12/20 07:41 Sucralfate 1 Gm Tablet PO 1 gm BID MAURISIO Administration Sumatriptan Succinate 50 mg 08/07/20 16:08 08/07/20 16:56 Sumatriptan Succinate 50 Mg Tablet PO 50 mg DAILY PRN Administration Headache Home Medications Medication Instructions Recorded Confirmed Last Taken Type fluticasone 232 mcg-salmeterol 14 1 inh INHALATION BID PRN 12/05/19 08/06/20 Unknown History mcg/actuation breath activated powdr montelukast 10 mg tablet 10 mg PO BEDTIME 12/05/19 08/06/20 08/05/20 History albuterol sulfate 90 mcg/actuation 2 puff INHALATION Q4-6H PRN 12/15/19 08/06/20 Unknown History aerosol inhaler polyethylene glycol 3350 [Miralax] 17 g PO Q2D 08/06/20 08/06/20 08/05/20 History sucralfate 1 tab PO BID 08/06/20 08/06/20 08/05/20 History Physical Exam Vital Signs: Vital Signs: Last Vital Signs Temp 97.1 F 08/12/20 11:28 Pulse 71 08/12/20 12:37 Resp 20 08/12/20 11:28 BP 166/98 H 08/12/20 12:37 Pulse Ox 99 08/12/20 11:28 Body Mass Index 36.8 Const: General: healthy appearing and no acute distress Nutritional Appearance: average body habitus Orientation/consciousness: patient oriented x3 Limitations: no limitations HENMT: Head: Yes normal to inspection Ears: hearing grossly normal bilaterally Mouth: Normal oral and palatal mucosa present Eyes: Sclerae: sclerae normal Pupils: Equal, round and reactive pupils present Neck: Neck: Yes normal visual inspection Chest: Chest palpation & inspection: normal inspection of the chest Resp: Effort & Inspection: normal respiratory effort Auscultation: clear to auscultation bilaterally Cardio: Palpation: normal PMI Rate: regular rate Rhythm: regular rhythm Heart sounds: S1 normal heart sound present, S2 normal heart sound present and no murmurs GI: Palpation (GI): Soft to palpation, Tenderness to palpation present (GI) (LUQ and LLQ) and No hepatosplenomegaly present Auscultation: normal bowel sounds Rectal Exam - Female: deferred Skin: General skin exam: no rashes or lesions noted Neuro: General: patient oriented x3, gait normal and moves all extremities Cranial nerves: Yes Equal, round and reactive pupils present and Yes Normal hearing present Speech: No Abnormal speech present Psych: Appearance: grossly normal Mental Status: mental status grossly normal Results Labs CBC & Chem 7: 08/12/20 11:33 08/11/20 06:10 Labs: Short CBC 08/12/20 Range/Units 11:33 WBC 10.3 (4.8-10.8) X10*3/uL Hgb 12.2 (12.0-16.0) g/dl Hct 36.3 L (37-47) % Plt Count 235 (160-400) X10*3/uL Microbiology Microbiology Results: Microbiology 08/11/20 Unknown Stool Stool Culture - Preliminary No growth to date. Assessment and Plan (1) Colitis: Status: Acute (2) IBS (irritable bowel syndrome): Qualifiers: Irritable bowel syndrome type: with both diarrhea and constipation Qualified Code(s): K58.2 - Mixed irritable bowel syndrome Status: Acute (3) Rectal bleeding: Status: Acute (4) GERD (gastroesophageal reflux disease): Qualifiers: Esophagitis presence: without esophagitis Qualified Code(s): K21.9 - Gastro-esophageal reflux disease without esophagitis Status: Acute (5) Constipation: Qualifiers: Constipation type: slow transit constipation Qualified Code(s): K59.01 - Slow transit constipation Status: Acute 49 yo female with asthma, IBS, HTN, HLD, GERD on metoprolol, lisinopril/HCTZ, hydralazine admitted with headache and elevated blood pressure. She has noted worsening left-sided abdominal and diarrhea for the past 3-[address] scan showed a distended colon filled with fluid and stool with a slight caliber change of the distal sigmoid colon. The distal sigmoid colon appe ared less dilated with a question of mild wall thickening suggestive of colitis. Changes on CT scan a likely due to ischemic colitis versus IBD. Patient has been followed in GI since 2016 for evaluation of abdominal pain, diarrhea alternating with constipation. Of note 10/2019 patient had a colonoscopy which showed diverticulosis and hemorrhoids, no polyps were detected. Biopsies were obtained from the colon which were normal. RECOMMENDATIONS: 1. Proceed with unprepped flexible sigmoidoscopy today for further evaluation. 2. Monitor H & H Procedures Date of Service Date of Service: 08/12/20
[2020-08-12] MEDS: 0.9 % Sodium Chloride Flush 3 ML SYRINGE IVFLUSH (15:26)
--- NOTE | 2020-08-12 17:02 | PM.OP ---
Brief Operative Note Date of Service: 08/12/20 Pre-op diagnosis: Abdominal pain, rectal bleeding, abnormal CT scan of colon Post-op diagnosis: other (Left sided colitis - likely ischemic, diverticulosis) Procedure: FLEXIBLE SIGMOIDOSCOPY TILL DISTAL TRANSVERSE COLON WITH BIOPSIES Consent: Indications for the procedure and potential complications of bleeding, perforation, reaction to medications and missed diagnosis were discussed with the patient and informed consent was obtained. Instrument: Olympus PCF H 190 L variable stiffness pediatric colonoscope Monitoring: Vital signs and clinical assessment, intermittent blood pressure monitoring, continuous EKG monitoring, Pulse oximetry and Carbon Dioxide monitoring were done throughout the procedure. Procedure: The patient was placed in the left lateral decubitis position and pre-procedure medications were administered. After a digital rectal examination of the ano-rectum, the video colonoscope was inserted into the rectum and advanced through the colon to the distal transverse colon. The colonoscope was slowly withdrawn in a retrograde panoramic fashion and the colon mucosa was carefully examined including a retroflexed view of the rectum. Findings and interventions are described below. Procedure Difficulty: Without difficulty Findings: Transverse Colon: Distal TC was examined and appeared normal Descending Colon: Edema and patchy erythema from 50 to 70 cms - random biopsies were obtained. Sigmoid Colon: Edema, erythema, submucosal hemorrhages and pseudomembranes with luminal narrowing from 35 to 50 cms - random biopsies were obtained. Moderate diverticulosis Rectum: Normal Ano-rectum: Perianal skin tags and hypertrophied anal papillae Colon preparation: Good Impression and Post Procedure Diagnosis: Colonoscopy Findings: Edema, erythema, submucosal hemorrhages and pseudomembranes with luminal narrowing from 35 to 50 cms - and Edema and patchy erythema from 50 to 70 cms suggestive of resolving ischemic colitis and less likely IBD No polyps detected Moderate diverticulosis seen in the sigmoid colon Plan: Await pathology results Continue IV antibiotics Advance diet to full liquid as tolerated Above findings were reviewed with the patient. Surgeon: Sky Horton MD Anesthesia: MAC (Maira Lemos CRNA & Dr Valdovinos) Was an Potato Chip Sacking Machine Operator used for this Procedure?: No Potato Chip Sacking Machine Operator: Eunice Villalobos Estimated blood loss (mL): 0 Pathology: other (A. TC bx, B. SC bx - rule out ischemic colitis) Condition: stable Disposition: PACU
--- NOTE | 2020-08-12 17:03 | MHC.SHP ---
Pre-Procedural Eval Section A The patient is an INPATIENT: Yes Changes since office visit: Yes New Medical Problems, Yes Changes in Medication and Yes Patient answered all questions; No Cold of Flu in the past 2 weeks The History & Physical has been completed within 30 days and I have reviewed it.: Yes Section B Chief Complaint: Hypertensive emergency Allergies: Allergies Allergy/AdvReac Type Severity Reaction Status Date / Time pineapple [PINEAPPLE] Allergy Severe ANAPHYLAXIS Verified 06/30/20 09:13 aspirin [ASA] Allergy Mild UPSET Verified 06/30/20 09:13 STOMACH levofloxacin [From Levaquin] Allergy Mild SWELLING,RASH, Verified 06/30/20 09:13 rash oxycodone [From Percocet] Allergy Mild SOB,RASH Verified 06/30/20 09:13 acetaminophen [Percocet] Allergy Unknown rash Verified 06/30/20 09:13 Iodinated Contrast Media Allergy Unknown SOB,RASH Verified 06/30/20 09:13 [IV Dye, Iodine Containing] Plan I have reviewed the history and physical and performed a pertinent physical examination on my patient. No changes have occurred unless specified.
--- NOTE | 2020-08-12 17:04 | P.CONAN_ITS ---
[facility] Active Problems Active Problems: All Active Problems (Updated 08/09/20 @ 09:16 by Nelson vega MD) Colitis (Acute) Atypical chest pain (Acute) Hypertensive urgency (Acute) Headache (Acute) Rotator cuff impingement syndrome (Acute) Lateral epicondylitis of both elbows (Acute) Adhesive capsulitis of both shoulders (Acute) Fall (Acute) IBS (irritable bowel syndrome) (Acute) Abdominal bloating (Acute) Tendinopathy of left rotator cuff (Acute) Obesity (BMI 30-39.9) (Acute) Hypercholesterolemia (Acute) Vitamin D deficiency (Acute) Multinodular thyroid (Acute) Pancreatic cyst (Acute) Constipation (Acute) Hypertension (Acute) Hypothyroidism (Acute) Asthma (Acute) Diarrhea (Acute) Rectal bleeding (Acute) Esophageal spasm (Acute) GERD (gastroesophageal reflux disease) (Acute) Fibromyalgia (Acute) Past Medical History Medical History Allergic rhinitis Asthma Colitis Constipation Esophageal spasm Fibromyalgia GERD (gastroesophageal reflux disease) History of CA (myocardial infarction) History of migraine headaches History of TIA (transient ischemic attack) Hypercholesterolemia Hypertension Hypothyroidism Kidney stones Multinodular thyroid Obesity (BMI 30-39.9) Ovarian cyst Pancreatic cyst Rectal bleeding Sciatic nerve pain Thyroid nodule Vitamin D deficiency Family History Family History Father Family history of high blood pressure History of high cholesterol Mother History of diabetes mellitus Family history of high blood pressure Family history of asthma History of fibromyalgia Liver disease Surgical History Surgical History H/O lithotripsy H/O: hysterectomy History of cholecystectomy (~2003) History of colonoscopy (~11/16/19) History of kidney surgery History of thyroidectomy (~11/2018) Hx of appendectomy Hx of bilateral breast reduction surgery Social History Social History Household Members: None Housing: House Alcohol intake: never Patient Tobacco Use Status: Never used Tobacco Years Smoked: 3 Use of substances other than those prescribed or required for medical reasons: No Substance Use Type: Marijuana Currently Displaying Signs/Symptoms of Drug Intoxication Withdrawal: No Have you been hit, kicked, punched, or otherwise hurt by someone within the past year? If so, by whom?: No Do you feel safe in your current relationship?: No Current Relationship Is there a partner from a previous relationship who is making you feel unsafe now?: No Are you made to feel afraid or neglected: No Spiritual Healthcare Practices: n/a Episcopal Healthcare Practices: n/a Cultural Healthcare Practices: n/a Are you DNR?: No Advance Directives: No Advance Directives Information Provided: Yes Do you have thoughts of harming others: None Do you have a plan to hurt others: No Plan Recently lost weight without trying: No Eating poorly because of decreased appetite: No Patient : No : No Poor oral hygiene: No service: No Current occupational status: disabled Meds Allergies Allergy/AdvReac Type Severity Reaction Status Date / Time pineapple [PINEAPPLE] Allergy Severe ANAPHYLAXIS Verified 06/30/20 09:13 aspirin [ASA] Allergy Mild UPSET Verified 06/30/20 09:13 STOMACH levofloxacin [From Levaquin] Allergy Mild SWELLING,RASH, Verified 06/30/20 09:13 rash oxycodone [From Percocet] Allergy Mild SOB,RASH Verified 06/30/20 09:13 acetaminophen [Percocet] Allergy Unknown rash Verified 06/30/20 09:13 Iodinated Contrast Media Allergy Unknown SOB,RASH Verified 06/30/20 09:13 [IV Dye, Iodine Containing] Active Medications: Current Medications Generic Name Dose Route Start Last Admin Trade Name Freq PRN Reason Stop Dose Admin Acetaminophen 650 mg 08/06/20 20:11 08/12/20 07:41 Acetaminophen 325 Mg Tablet PO 650 mg Q6H PRN Administration Pain, Mild (Pain Scale 1-3) Acetaminophen/Butalbital/Caffeine 1 tab 08/08/20 12:18 Butalb/Acetamin/Caff 50/325/40 Tablet PO Q6H PRN Headache Albuterol Sulfate 2 puff 08/06/20 20:11 Albuterol Sulfate 90 Mcg 8 Gm Inhaler INHALE Q4H PRN Wheezing Amlodipine Besylate 5 mg 08/12/20 12:15 08/12/20 12:37 Amlodipine Besylate 5 Mg Tablet PO 5 mg DAILY MAURISIO Administration Protocol Docusate Sodium 100 mg 08/06/20 20:11 08/08/20 15:46 Docusate Sodium 100 Mg Capsule PO 100 mg DAILY PRN Administration Constipation Enoxaparin Sodium 40 mg 08/06/20 21:00 08/11/20 22:03 Enoxaparin Sodium 40 Mg/0.4 Ml Syringe SUBCUT 40 mg Q24H MAURISIO Administration Ergocalciferol 1,250 mcg 08/08/20 09:00 08/08/20 09:28 Ergocalciferol (Vitamin D2) 1,250 Mcg Capsule PO 1,250 mcg Saha@0900 MAURISIO Administration Famotidine 20 mg 08/06/20 20:11 Famotidine 20 Mg Tablet PO BEDTIME PRN acid reflux Fluticasone/Vilanterol 1 puff 08/06/20 08:00 08/12/20 08:26 Fluticasone/Vilanterol 100/25 Blst.W.Dev INHALE 1 puff RDAILY [facility]ISIO Administration Ceftriaxone Sodium 1 gm/ 50 mls @ 100 mls/hr 08/08/20 23:00 08/11/20 22:58 Sodium Chloride IV Infused Q24H [facility] Infusion Metronidazole 500 mg in 100 mls @ 100 mls/hr 08/10/20 00:00 08/12/20 16:33 Flagyl IV Infused Q8H [facility] Infusion Levothyroxine Sodium 150 mcg 08/07/20 09:00 08/12/20 05:48 Levothyroxine Sodium 150 Mcg Tablet PO 150 mcg DAILY@0600 MAURISIO Administration Lisinopril 20 mg 08/07/20 09:00 08/12/20 07:48 Lisinopril 20 Mg Tablet PO 20 mg DAILY MAURISIO Administration Metoprolol Tartrate 50 mg 08/06/20 21:00 08/12/20 07:48 Metoprolol Tartrate 50 Mg Tablet PO 50 mg BID MAURISIO Administration Protocol Montelukast Sodium 10 mg 08/06/20 21:00 08/11/20 22:03 Montelukast Sodium 10 Mg Tablet PO 10 mg BEDTIME MAURISIO Administration Morphine Sulfate 3 mg 08/10/20 10:54 08/12/20 00:05 Morphine Sulfate 4 Mg/Ml Cartridge IVPUSH 3 mg Q3H PRN Administration Pain, Severe (Pain Scale 7-10) Omeprazole 20 mg 08/07/20 06:30 08/12/20 05:48 Omeprazole 20 Mg Capsule.Dr PO 20 mg DAILY@0630 MAURISIO Administration Ondansetron HCl 4 mg 08/06/20 20:11 08/12/20 09:02 Ondansetron Hcl 4 Mg/2 Ml Vial IVPUSH 4 mg Q8H PRN Administration Nausea and Vomiting Pharmacy Consult 1 each 08/06/20 15:30 Consult Rx Perform Med Rec MISCELLANE ONCE PRN Consult order Sodium Chloride 3 ml 08/07/20 00:00 08/12/20 15:26 0.9 % Sodium Chloride Flush 3 Ml Syringe IVFLUSH 3 ml QSHIFT MAURISIO Administration Sucralfate 1 gm 08/06/20 21:00 08/12/20 07:41 Sucralfate 1 Gm Tablet PO 1 gm BID MAURISIO Administration Sumatriptan Succinate 50 mg 08/07/20 16:08 08/07/20 16:56 Sumatriptan Succinate 50 Mg Tablet PO 50 mg DAILY PRN Administration Headache Home Medications Medication Instructions Recorded Confirmed Last Taken Type fluticasone 232 mcg-salmeterol 14 1 inh INHALATION BID PRN 12/05/19 08/06/20 Unknown History mcg/actuation breath activated pow montelukast 10 mg tablet 10 mg PO BEDTIME 12/05/19 08/06/20 08/05/20 History albuterol sulfate 90 mcg/actuation 2 puff INHALATION Q4-6H PRN 12/15/19 08/06/20 Unknown History aerosol inhaler polyethylene glycol 3350 [Miralax] 17 g PO Q2D 08/06/20 08/06/20 08/05/20 History sucralfate 1 tab PO BID 08/06/20 08/06/20 08/05/20 History Exam Exam Date and Time: August 12, 2020 1704 Height,Weight and Vital Signs: Height 5 ft 4 in Weight 97.5 kg Last Vital Signs Temp 98.3 F 08/12/20 16:29 Pulse 85 08/12/20 16:29 Resp 16 08/12/20 16:29 BP 170/95 H 08/12/20 16:29 Pulse Ox 98 08/12/20 16:29 Pertinent Lab Results Pertinent Lab Results: Laboratory Tests 08/06/20 08/06/20 08/06/20 11:43 11:43 11:43 WBC 9.3 RBC 4.61 Hgb 14.1 Hct 42.0 MCV 91.1 MCH 30.6 MCHC 33.6 RDW 13.2 Plt Count 260 MPV 9.9 Immature Gran % (Auto) 0.3 Neut % (Auto) 76.0 H Lymph % (Auto) 15.8 L [place] % (Auto) 6.1 Eos % (Auto) 1.5 Baso % (Auto) 0.3 Lymph # (Auto) 1.5 [place] # (Auto) 0.6 Eos # (Auto) 0.1 Baso # (Auto) 0.0 Abs Immat Gran (auto) 0.03 Absolute Neuts (auto) 7.1 Absolute Nucleated RBC 0.000 Nucleated RBC % (auto) 0.0 PT 11.2 INR 0.9 APTT 37.1 Sodium 140 Potassium 4.2 Chloride 105 Carbon Dioxide 28 Anion Gap 11 L BUN 15 Creatinine 0.73 Estim Creat Clear Calc 102.5 Estimated GFR > 60 Random Glucose 102 Calcium 9.2 Magnesium 2.1 Total Bilirubin 0.5 Direct Bilirubin 0.2 AST 17 ALT 17 Alkaline Phosphatase 80 D Troponin I High Sens B-Natriuretic Peptide Total Protein 7.7 Albumin 4.4 Amylase Lipase C. difficile Toxin A&B C. difficile Antigen C. difficile Interpret COVID-19 ([facility]) COVID-19 Clin Com 08/06/20 08/06/20 08/07/20 15:43 17:29 06:20 WBC 7.7 RBC 4.61 Hgb 14.0 Hct 42.5 MCV 92.2 MCH 30.4 MCHC 32.9 RDW 13.4 Plt Count 260 MPV 10.0 Immature Gran % (Auto) 0.3 Neut % (Auto) 56.2 Lymph % (Auto) 34.7 [place] % (Auto) 6.4 Eos % (Auto) 2.0 Baso % (Auto) 0.4 Lymph # (Auto) 2.7 [place] # (Auto) 0.5 Eos # (Auto) 0.2 Baso # (Auto) 0.0 Abs Immat Gran (auto) 0.02 Absolute Neuts (auto) 4.3 Absolute Nucleated RBC 0.000 Nucleated RBC % (auto) 0.0 PT INR APTT Sodium Potassium Chloride Carbon Dioxide Anion Gap BUN Creatinine Estim Creat Clear Calc Estimated GFR Random Glucose Calcium Magnesium Total Bilirubin Direct Bilirubin AST ALT Alkaline Phosphatase Troponin I High Sens < 3.5 B-Natriuretic Peptide 33 Total Protein Albumin Amylase Lipase C. difficile Toxin A&B C. difficile Antigen C. difficile Interpret COVID-19 ([facility]) Negative COVID-19 Clin Com See Note 08/07/20 08/10/20 08/10/20 06:20 06:52 06:52 WBC 19.7 H RBC 4.89 Hgb 14.9 Hct 44.0 MCV 90.0 MCH 30.5 MCHC 33.9 RDW 13.2 Plt Count 278 MPV 10.9 Immature Gran % (Auto) 0.5 H Neut % (Auto) 80.5 H Lymph % (Auto) 11.1 L [place] % (Auto) 7.6 Eos % (Auto) 0.1 Baso % (Auto) 0.2 Lymph # (Auto) 2.2 [place] # (Auto) 1.5 H Eos # (Auto) 0.0 Baso # (Auto) 0.0 Abs Immat Gran (auto) 0.10 H Absolute Neuts (auto) 15.9 H Absolute Nucleated RBC 0.000 Nucleated RBC % (auto) 0.0 PT INR APTT Sodium 139 136 Potassium 4.2 4.0 Chloride 102 100 Carbon Dioxide 26 23 Anion Gap 15 17 BUN 13 31 H D Creatinine 0.73 1.00 Estim Creat Clear Calc 109.0 78.8 Estimated GFR > 60 59 Random Glucose 87 91 Calcium 9.4 9.1 Magnesium Total Bilirubin Direct Bilirubin AST ALT Alkaline Phosphatase Troponin I High Sens B-Natriuretic Peptide Total Protein Albumin Amylase Lipase C. difficile Toxin A&B C. difficile Antigen C. difficile Interpret COVID-19 ([facility]) COVID-19 Clin Com 08/10/20 08/10/20 08/11/20 13:10 17:24 06:10 WBC 12.7 H RBC 4.06 L Hgb 12.4 Hct 37.3 MCV 91.9 MCH 30.5 MCHC 33.2 RDW 13.4 Plt Count 245 MPV 10.5 Immature Gran % (Auto) Neut % (Auto) Lymph % (Auto) [place] % (Auto) Eos % (Auto) Baso % (Auto) Lymph # (Auto) [place] # (Auto) Eos # (Auto) Baso # (Auto) Abs Immat Gran (auto) Absolute Neuts (auto) Absolute Nucleated RBC 0.000 Nucleated RBC % (auto) 0.0 PT INR APTT Sodium Potassium Chloride Carbon Dioxide Anion Gap BUN Creatinine Estim Creat Clear Calc Estimated GFR Random Glucose Calcium Magnesium Total Bilirubin 0.4 Direct Bilirubin 0.2 AST 17 ALT 17 Alkaline Phosphatase 57 D Troponin I High Sens B-Natriuretic Peptide Total Protein 6.7 Albumin 3.9 Amylase 65 Lipase 9 C. difficile Toxin A&B Negative C. difficile Antigen Negative C. difficile Interpret SEE NOTE COVID-19 ([facility]) COVID-19 Clin Com 08/11/20 08/12/20 06:10 11:33 WBC 10.3 RBC 3.95 L Hgb 12.2 Hct 36.3 L MCV 91.9 MCH 30.9 MCHC 33.6 RDW 13.1 Plt Count 235 MPV 10.1 Immature Gran % (Auto) Neut % (Auto) Lymph % (Auto) [place] % (Auto) Eos % (Auto) Baso % (Auto) Lymph # (Auto) [place] # (Auto) Eos # (Auto) Baso # (Auto) Abs Immat Gran (auto) Absolute Neuts (auto) Absolute Nucleated RBC 0.000 Nucleated RBC % (auto) 0.0 PT INR APTT Sodium 139 Potassium 3.7 Chloride 108 Carbon Dioxide 25 Anion Gap 10 L BUN 15 D Creatinine 0.72 Estim Creat Clear Calc 109.5 Estimated GFR > 60 Random Glucose 80 Calcium 8.7 Magnesium Total Bilirubin Direct Bilirubin AST ALT Alkaline Phosphatase Troponin I High Sens B-Natriuretic Peptide Total Protein Albumin Amylase Lipase C. difficile Toxin A&B C. difficile Antigen C. difficile Interpret COVID-19 ([facility]) COVID-19 Clin Com Airway Mallampati Class: II TM Dist: >3cm Neck ROM: Full
[2020-08-12] MEDS: fentaNYL citrate/PF 100 MCG/2 ML VIAL 50 MCG IVPUSH ×2 (17:40→17:55)
--- NOTE | 2020-08-12 18:15 | PC.NURSE ---
0755- Pt BP 188/102 manually. Pt given scheduled BP meds. Dr. Draper made aware. No new orders at this time.
--- NOTE | 2020-08-12 18:16 | PC.NURSE ---
1400- Pt having frequent episodes of diarrhea. Liquid mucousy stool, black with blood tinged color. Dr. Draper made aware. No new orders at this time.
[2020-08-12] MEDS: hydrALAZINE HCl 20 MG/ML VIAL 10 MG IVPUSH (19:51)
[2020-08-12] MEDS: Enoxaparin Sodium 40 MG/0.4 ML SYRINGE SUBCUT (21:33)
[2020-08-12] MEDS: Montelukast Sodium 10 MG TABLET PO (21:33)
[2020-08-12] MEDS: cefTRIAXone sodium 1 GM in 0.9 % Sodium Chloride 50 ML IV (22:37)
[2020-08-13] VITALS (10 sets, daily range): BP systolic 129–148; BP diastolic 70–96; PULSE 71–84; RESP 17–20; TEMP 36.1–37.2; O2SAT 96–98
[2020-08-13] MEDS: Levothyroxine Sodium 150 MCG TABLET PO (05:50)
[2020-08-13] MEDS: Omeprazole 20 MG CAPSULE.DR PO (05:50)
[2020-08-13] MEDS: metroNIDAZOLE/NS 500 MG/100 ML PIGGYBACK 100 MG IV ×2 (07:39→15:02)
[2020-08-13] MEDS: Metoprolol Tartrate 50 MG TABLET PO ×2 (07:40→20:13)
[2020-08-13] MEDS: Sucralfate 1 GM TABLET PO ×2 (07:40→20:13)
[2020-08-13] MEDS: amLODIPine Besylate 5 MG TABLET PO (07:41)
[2020-08-13] MEDS: 0.9 % Sodium Chloride Flush 3 ML SYRINGE IVFLUSH ×2 (07:41→15:02)
[2020-08-13] MEDS: lisinopriL 20 MG TABLET PO (07:41)
[2020-08-13] MEDS: Fluticasone/Vilanterol 100/25 BLST.W.DEV 1 PUFF INHALE (08:08)
[2020-08-13] MEDS: ondansetron HCL 4 MG/2 ML VIAL IVPUSH ×2 (08:27→16:09)
[2020-08-13] MEDS: Butalb/Acetamin/Caff 50/325/40 TABLET 1 TAB PO (08:29)
[2020-08-13 09:10] LABS: Hematocrit 38.1 % (37-47); Hemoglobin 12.9 g/dl (12.0-16.0)
--- NOTE | 2020-08-13 09:22 | PM.PNNEP ---
Subjective Subjective Date of Service: 08/13/20 Interval history: Events noted s/p Flex sigmoidoscopy Physical Exam Vital Signs: Vital Signs: Last Vital Signs Temp 96.9 F 08/13/20 07:18 Pulse 81 08/13/20 08:10 Resp 18 08/13/20 07:18 BP 148/82 H 08/13/20 07:41 Pulse Ox 96 08/13/20 07:18 Body Mass Index 38.6 Const: General: alert and awake Orientation/consciousness: patient oriented x3 Neck: Neck: Yes supple Resp: Auscultation: no rhonchi Cardio: Palpation: no palpable S3 Heart sounds: no rubs GI: Palpation (GI): Soft to palpation and Tenderness to palpation present (GI) Neuro: General: patient oriented x3 Motor exam (neuro): No Asterixis during motor activity present Objective Data Labs CBC & Chem 7: 08/13/20 08:19 08/11/20 06:10 Labs: Laboratory Results - last 24 hr 08/12/20 08/13/20 11:33 08:19 WBC 10.3 RBC 3.95 L Hgb 12.2 12.9 Hct 36.3 L 38.1 MCV 91.9 MCH 30.9 MCHC 33.6 RDW 13.1 Plt Count 235 MPV 10.1 Absolute Nucleated RBC 0.000 Nucleated RBC % (auto) 0.0 Microbiology Microbiology Results: Microbiology 08/11/20 Unknown Stool Stool Culture - Preliminary Normal so far. Assessment & Plan Assessment and plan (1) Colitis: Status: Acute Assessment and Plan: HTN BP betteer controlled Keep current meds check PA/PRA ( Pending) Avoid hypotension Ischemic Colitis Migraine Time Spent With Patient Time: Total time spent is greater than 50% in coordination of care (as documented) at patient's floor/unit and/or counseling patient: Procedures Date of Service Date of Service: 08/13/20 Progress Note: Quality Stroke Does the patient have a stroke diagnosis?: No
--- NOTE | 2020-08-13 09:33 | PM.PNGS ---
Subjective Subjective Date of Service: 08/13/20 Interval history: Underwent colonoscopy yesterday - tolerated this well still has pain on left side, although better says she continues to have loose stools Physical Exam Vital Signs: Vital Signs: Last Vital Signs Temp 96.9 F 08/13/20 07:18 Pulse 81 08/13/20 08:10 Resp 18 08/13/20 07:18 BP 148/82 H 08/13/20 07:41 Pulse Ox 96 08/13/20 07:18 Body Mass Index 38.6 Laboratory Results - last 24 hr 08/12/20 08/13/20 11:33 08:19 WBC 10.3 RBC 3.95 L Hgb 12.2 12.9 Hct 36.3 L 38.1 MCV 91.9 MCH 30.9 MCHC 33.6 RDW 13.1 Plt Count 235 MPV 10.1 Absolute Nucleated RBC 0.000 Nucleated RBC % (a uto) 0.0 Const: Other: anxious General: comfortable and no acute distress Resp: Effort & Inspection: normal respiratory effort Cardio: Rhythm: regular rhythm GI: Other: soft, some tenderness on left, no guarding or rebound Progress Note: A&P Assessment and plan (1) Colitis: Status: Acute Assessment and Plan: colonoscopy yesterday suggestive of resolving ischemic colitis in left colon WBC normal now still with some tenderness but slowly improving on clear liquids, slowly advance later today or tomorrow exam remains benign clinically stable Fall Risk Details Current Medications: Current Medications Generic Name Dose Route Start Last Admin Trade Name Felipeq PRN Reason Stop Dose Admin Acetaminophen 650 mg 08/06/20 20:11 08/12/20 07:41 Acetaminophen 325 Mg Tablet PO 650 mg Q6H PRN Administration Pain, Mild (Pain Scale 1-3) Acetaminophen/Butalbital/Caffeine 1 tab 08/08/20 12:18 08/13/20 08:29 Butalb/Acetamin/Caff 50/325/40 Tablet PO 1 tab Q6H PRN Administration Headache Albuterol Sulfate 2 puff 08/06/20 20:11 Albuterol Sulfate 90 Mcg 8 Gm Inhaler INHALE Q4H PRN Wheezing Amlodipine Besylate 5 mg 08/12/20 12:15 08/13/20 07:41 Amlodipine Besylate 5 Mg Tablet PO 5 mg DAILY MAURISIO Administration Protocol Docusate Sodium 100 mg 08/06/20 20:11 08/08/20 15:46 Docusate Sodium 100 Mg Capsule PO 100 mg DAILY PRN Administration Constipation Enoxaparin Sodium 40 mg 08/06/20 21:00 08/12/20 21:33 Enoxaparin Sodium 40 Mg/0.4 Ml Syringe SUBCUT 40 mg Q24H MAURISIO Administration Ergocalciferol 1,250 mcg 08/08/20 09:00 08/08/20 09:28 Ergocalciferol (Vitamin D2) 1,250 Mcg Capsule PO 1,250 mcg Saha@0900 MAURISIO Administration Famotidine 20 mg 08/06/20 20:11 Famotidine 20 Mg Tablet PO BEDTIME PRN acid reflux Fentanyl 50 mcg 08/12/20 17:38 08/12/20 17:55 Fentanyl Citrate/Pf 100 Mcg/2 Ml Vial IVPUSH 50 mcg Q5M PRN Administration Pain, Severe (Pain Scale 7-10) Fluticasone/Vilanterol 1 puff 08/06/20 08:00 08/13/20 08:08 Fluticasone/Vilanterol 100/25 Blst.W.Dev INHALE 1 puff RDAILY [facility] Administration Ceftriaxone Sodium 1 gm/ 50 mls @ 100 mls/hr 08/08/20 23:00 08/12/20 23:28 Sodium Chloride IV Infused Q24H [facility] Infusion Metronidazole 500 mg in 100 mls @ 100 mls/hr 08/10/20 00:00 08/13/20 07:39 Flagyl IV 100 mls/hr Q8H [facility] Administration Levothyroxine Sodium 150 mcg 08/07/20 09:00 08/13/20 05:50 Levothyroxine Sodium 150 Mcg Tablet PO 150 mcg DAILY@0600 [facility]URISIO Administration Lisinopril 20 mg 08/07/20 09:00 08/13/20 07:41 Lisinopril 20 Mg Tablet PO 20 mg DAILY MAURISIO Administration Metoprolol Tartrate 50 mg 08/06/20 21:00 08/13/20 07:40 Metoprolol Tartrate 50 Mg Tablet PO 50 mg BID MAURISIO Administration Protocol Montelukast Sodium 10 mg 08/06/20 21:00 08/12/20 21:33 Montelukast Sodium 10 Mg Tablet PO 10 mg BEDTIME [facility]ISIO Administration Morphine Sulfate 3 mg 08/10/20 10:54 08/12/20 00:05 Morphine Sulfate 4 Mg/Ml Cartridge IVPUSH 3 mg Q3H PRN Administration Pain, Severe (Pain Scale 7-10) Omeprazole 20 mg 08/07/20 06:30 08/13/20 05:50 Omeprazole 20 Mg Capsule.Dr PO 20 mg DAILY@0630 [facility] Administration Ondansetron HCl 4 mg 08/06/20 20:11 08/13/20 08:27 Ondansetron Hcl 4 Mg/2 Ml Vial IVPUSH 4 mg Q8H PRN Administration Nausea and Vomiting Pharmacy Consult 1 each 08/06/20 15:30 Consult Rx Perform Med Rec MISCELLANE ONCE PRN Consult order Sodium Chloride 3 ml 08/07/20 00:00 08/13/20 07:41 0.9 % Sodium Chloride Flush 3 Ml Syringe IVFLUSH 3 ml QSHIFT [facility] Administration Sucralfate 1 gm 08/06/20 21:00 08/13/20 07:40 Sucralfate 1 Gm Tablet PO 1 gm BID [facility] Administration Sumatriptan Succinate 50 mg 08/07/20 16:08 08/07/20 16:56 Sumatriptan Succinate 50 Mg Tablet PO 50 mg DAILY PRN Administration Headache Time Spent With Patient Time: Total time spent is greater than 50% in coordination of care (as documented) at patient's floor/unit and/or counseling patient: Time with patient: 15 - 24 minutes Procedures Date of Service Date of Service: 08/13/20 Quality Stroke Does the patient have a stroke diagnosis?: No VTE Prior VTE?: No VTE Risk Level:: Medical - moderate - high VTE Device Contraindication: N/A - Device Ordered VTE Drug Contraindication: N/A - Med Ordered
--- NOTE | 2020-08-13 10:56 | CONS_ITS ---
DATE OF SERVICE: 08/08/2020 REASON FOR CONSULTATION: I was called to see this patient to assist in the management of hypertension. HISTORY OF PRESENT ILLNESS: To summarize, Glorai is a 49-year-old woman with a history of longstanding hypertension with a history of fibromyalgia and hypothyroidism. She was admitted because of headache and hypertension. At the time of admission, she had a blood pressure of 206/127 on August 06. She was seen by Neurology for migraine. The CT of the head was unremarkable. The blood pressure has been difficult to control during this admission. She is on multiple medications. All the medications were reviewed. MEDICATIONS: Her home medications included fluticasone, albuterol, montelukast. In hospital, she was given IV hydralazine and currently all the current medications were reviewed. ALLERGIES: SHE IS ALLERGIC TO ASPIRIN, LEVOFLOX, OXYCODONE, ACETAMINOPHEN, AND IV CONTRAST DYES. REVIEW OF SYSTEMS: Positive for headache. No shortness of breath. No chest pain. No edema. No urinary symptoms. No fever. No rash. PHYSICAL EXAMINATION: GENERAL: Gloria is a 49-year-old woman, who is sleeping, arousable, comfortable, not in any distress. NECK: Supple. No JVD. LUNGS: Air entry equal. No rales. HEART: S1, S2 heard. No gallop. ABDOMEN: Soft, distended, mild tenderness. No rebound or guarding. NEUROLOGIC: Alert and awake. No asterixis. EXTREMITIES: No edema. No rash. No clubbing. VITAL SIGNS: All the blood pressure readings were reviewed. Today, blood pressure was 151/81 and is dropped to 96/52. Pulse 90 per minute. LABORATORY DATA: Hemoglobin 14.0, platelets 260. Serum electrolytes normal. CO2 of 26, potassium 4.2, BUN 13, creatinine 0.73. Urinalysis is pending; three years ago, there were no blood or protein by dipstick. CT abdomen and pelvis showed small bilateral renal stones, otherwise unremarkable. No obstruction. There was evidence suggestive of colitis versus partial obstruction. Renal ultrasonogram done earlier showed prominent renal pelvis with mild hydronephrosis. The Doppler was reportedly normal. No evidence of renal artery stenosis. IMPRESSION: 49-year-old woman with uncontrolled hypertension and migraine. Gloria has had difficult to control hypertension. There was no evidence of renal artery stenosis based on renal ultrasonogram and renal Doppler. There is no evidence of hypokalemia or alkalosis to suggest hyperaldosteronism. She probably has essential hypertension. Nevertheless, we will complete the workup. Current medications were reviewed. I agree with using lisinopril and hydralazine orally. I would avoid using intravenous agents and avoid rapid drops in blood pressure. We will keep her on a low-sodium diet. She needs weight loss and we will follow her along with the team. Contreras Deutsch MD BPA/MODL / [id number] MTDD
--- NOTE | 2020-08-13 11:05 | HO.PM.IMPN ---
Subjective Subjective Date of Service: 08/13/20 Interval History: seen and examined this AM very slow improvement oral intake still not great ROS General - no fevers or chills Cardiovascular - no chest pain Respiratory - no shortness of breath or cough Abdominal- +abdominal pain and diarrhea Physical Exam Vital Signs: Vital Signs: Last Vital Signs Temp 96.9 F 08/13/20 07:18 Pulse 81 08/13/20 08:10 Resp 18 08/13/20 07:18 BP 148/82 H 08/13/20 07:41 Pulse Ox 96 08/13/20 07:18 Body Mass Index 38.6 Const: Other: General - no acute distress, appears comfortable Cardiovascular - regular rate and rhythm, S1-S2 Lungs - normal respiratory effort, clear to auscultation bilaterally, no wheezing Abdomen - +TTP LLQ without rebound or guarding Extremities - no edema bilaterally Neuro - awake and alert, no focal deficits Objective Data Current Medications Generic Name Dose Route Start Last Admin Trade Name Freq PRN Reason Stop Dose Admin Acetaminophen 650 mg 08/06/20 20:11 08/12/20 07:41 Acetaminophen 325 Mg Tablet PO 650 mg Q6H PRN Administration Pain, Mild (Pain Scale 1-3) Acetaminophen/Butalbital/Caffeine 1 tab 08/08/20 12:18 08/13/20 08:29 Butalb/Acetamin/Caff 50/325/40 Tablet PO 1 tab Q6H PRN Administration Headache Albuterol Sulfate 2 puff 08/06/20 20:11 Albuterol Sulfate 90 Mcg 8 Gm Inhaler INHALE Q4H PRN Wheezing Amlodipine Besylate 5 mg 08/12/20 12:15 08/13/20 07:41 Amlodipine Besylate 5 Mg Tablet PO 5 mg DAILY MAURISIO Administration Protocol Docusate Sodium 100 mg 08/06/20 20:11 08/08/20 15:46 Docusate Sodium 100 Mg Capsule PO 100 mg DAILY PRN Administration Constipation Enoxaparin Sodium 40 mg 08/06/20 21:00 08/12/20 21:33 Enoxaparin Sodium 40 Mg/0.4 Ml Syringe SUBCUT 40 mg Q24H MAURISIO Administration Ergocalciferol 1,250 mcg 08/08/20 09:00 08/08/20 09:28 Ergocalciferol (Vitamin D2) 1,250 Mcg Capsule PO 1,250 mcg Saha@0900 [facility] Administration Famotidine 20 mg 08/06/20 20:11 Famotidine 20 Mg Tablet PO BEDTIME PRN acid reflux Fentanyl 50 mcg 08/12/20 17:38 08/12/20 17:55 Fentanyl Citrate/Pf 100 Mcg/2 Ml Vial IVPUSH 50 mcg Q5M PRN Administration Pain, Severe (Pain Scale 7-10) Fluticasone/Vilanterol 1 puff 08/06/20 08:00 08/13/20 08:08 Fluticasone/Vilanterol 100/25 Blst.W.Dev INHALE 1 puff RDAILY MAURISIO Administration Ceftriaxone Sodium 1 gm/ 50 mls @ 100 mls/hr 08/08/20 23:00 08/12/20 23:28 Sodium Chloride IV Infused Q24H MAURISIO Infusion Metronidazole 500 mg in 100 mls @ 100 mls/hr 08/10/20 00:00 08/13/20 09:32 Flagyl IV Infused Q8H [facility] Infusion Levothyroxine Sodium 150 mcg 08/07/20 09:00 08/13/20 05:50 Levothyroxine Sodium 150 Mcg Tablet PO 150 mcg DAILY@0600 MAURISIO Administration Lisinopril 20 mg 08/07/20 09:00 08/13/20 07:41 Lisinopril 20 Mg Tablet PO 20 mg DAILY MAURISIO Administration Metoprolol Tartrate 50 mg 08/06/20 21:00 08/13/20 07:40 Metoprolol Tartrate 50 Mg Tablet PO 50 mg BID MAURISIO Administration Protocol Montelukast Sodium 10 mg 08/06/20 21:00 08/12/20 21:33 Montelukast Sodium 10 Mg Tablet PO 10 mg BEDTIME MAURISIO Administration Morphine Sulfate 3 mg 08/10/20 10:54 08/12/20 00:05 Morphine Sulfate 4 Mg/Ml Cartridge IVPUSH 3 mg Q3H PRN Administration Pain, Severe (Pain Scale 7-10) Omeprazole 20 mg 08/07/20 06:30 08/13/20 05:50 Omeprazole 20 Mg Capsule.Dr PO 20 mg DAILY@0630 MAURISIO Administration Ondansetron HCl 4 mg 08/06/20 20:11 08/13/20 08:27 Ondansetron Hcl 4 Mg/2 Ml Vial IVPUSH 4 mg Q8H PRN Administration Nausea and Vomiting Pharmacy Consult 1 each 08/06/20 15:30 Consult Rx Perform Med Rec MISCELLANE ONCE PRN Consult order Sodium Chloride 3 ml 08/07/20 00:00 08/13/20 07:41 0.9 % Sodium Chloride Flush 3 Ml Syringe IVFLUSH 3 ml QSHIFT MAURISIO Administration Sucralfate 1 gm 08/06/20 21:00 08/13/20 07:40 Sucralfate 1 Gm Tablet PO 1 gm BID MAURISIO Administration Sumatriptan Succinate 50 mg 08/07/20 16:08 08/07/20 16:56 Sumatriptan Succinate 50 Mg Tablet PO 50 mg DAILY PRN Administration Headache Labs CBC & Chem 7: 08/13/20 08:19 08/11/20 06:10 Labs: Laboratory Results - last 24 hr 08/12/20 08/13/20 11:33 08:19 WBC 10.3 RBC 3.95 L Hgb 12.2 12.9 Hct 36.3 L 38.1 MCV 91.9 MCH 30.9 MCHC 33.6 RDW 13.1 Plt Count 235 MPV 10.1 Absolute Nucleated RBC 0.000 Nucleated RBC % (auto) 0.0 Microbiology Microbiology Results: Microbiology 08/11/20 Unknown Stool Culture - Preliminary Stool Normal so far. Quality Stroke Does the patient have a stroke diagnosis?: No VTE Prior VTE?: No VTE Risk Level:: Medical - moderate - high VTE Device Contraindication: N/A - Device Ordered VTE Drug Contraindication: N/A - Med Ordered Assessment and Plan (1) Colitis: Status: Acute (2) Hypertensive urgency: Status: Acute (3) Headache: Status: Acute Assessment and Plan: 49-year-old female with past medical history of hypertension who presents to the hospital with complaints of a headache and elevated blood pressure. 1. Acute Ischemic Colitis slowly improving c. diff negative, stool cultures negative so far, luekocytosis improving, will recheck labs this AM continue iv rocephin day #6 and flagyl day #4 GI / Gen surg input appreciated 2. hypertensive urgency due to non-compliance with home meds continue current regime 3. atypical chest pain - resolved - Came in with complaints of burning and stabbing in the midsternal and epigastric region - EKG shows no acute changes suggestive of ACS - Troponin ,3.5 , no further workup warranted 4. headache - resolved was likely tension headache, patient seen by Dr. Siegel he feels headache related to uncontrolled hypertension and migraine headache he recommend sumatriptan PRN 5. hypothyroidism - continue levothyroxine 6. asthma - no acute exacerbation - continue home inhalers DVT prophylaxis: Lovenox dispo: home next 1-2 days
[2020-08-13] MEDS: Famotidine/PF 20 MG/2 ML VIAL IVPUSH (11:35)
--- NOTE | 2020-08-13 12:18 | MHC.CM.PN ---
EMR REVIEWED, SIGMOIDOSCOPY ON 08/12/20 SHOWED ESCHEMIC COLITIS, PT STILL HAVING SOME BLEEDING, PLAN TO CONT IV ABX AND SLOWLY ADVANCE DIET TOLERATED, PT ADVANCED TO FULL LIQUIDS 08/12, NO D/C PLANNED FOR TODAY, CM TO CONT TO FOLLOW.
--- NOTE | 2020-08-13 14:17 | HO.POSTANES ---
Post Anesthesia Evaluation Post Anesthesia Evaluation Vital Signs: Vital Signs Temp Pulse Resp BP Pulse Ox 08/13/20 11:34 97.5 F 73 18 146/96 H 97 08/13/20 08:10 81 08/13/20 07:41 74 148/82 H 08/13/20 07:40 74 148/82 H 08/13/20 07:18 96.9 F 84 18 129/74 96 08/13/20 03:33 98.9 F 77 17 143/74 H 97 Anesthesia: Monitored Mental Status: Awake (Headache yesterday, resolved) Pain Control: Satisfactory Nausea/Vomiting: None Hydration: Adequate Anesthesia-Related Issues: No Anes. Related Issues
[2020-08-13] MEDS: Acetaminophen 325 MG TABLET 650 MG PO (15:03)
[2020-08-13] MEDS: Loperamide HCl 2 MG CAPSULE PO (16:09)
[2020-08-13] MEDS: Montelukast Sodium 10 MG TABLET PO (20:13)
[2020-08-13] MEDS: Enoxaparin Sodium 40 MG/0.4 ML SYRINGE SUBCUT (20:13)
[2020-08-13] MEDS: traMADoL HCL 50 MG TABLET PO (20:14)
[2020-08-13] MEDS: cefTRIAXone sodium 1 GM in 0.9 % Sodium Chloride 50 ML IV (22:48)
[2020-08-14] VITALS (9 sets, daily range): BP systolic 142–160; BP diastolic 84–93; PULSE 68–87; RESP 14–18; TEMP 35.7–37; O2SAT 95–98
[2020-08-14] MEDS: Acetaminophen 325 MG TABLET 650 MG PO ×3 (00:08→23:11)
[2020-08-14] MEDS: metroNIDAZOLE/NS 500 MG/100 ML PIGGYBACK 100 MG IV ×3 (00:10→15:14)
[2020-08-14] MEDS: Omeprazole 20 MG CAPSULE.DR PO (06:13)
[2020-08-14] MEDS: Levothyroxine Sodium 150 MCG TABLET PO (06:13)
[2020-08-14] MEDS: Fluticasone/Vilanterol 100/25 BLST.W.DEV 1 PUFF INHALE (07:57)
[2020-08-14] MEDS: Sucralfate 1 GM TABLET PO ×2 (07:58→20:22)
[2020-08-14] MEDS: Metoprolol Tartrate 50 MG TABLET PO ×2 (07:58→20:22)
[2020-08-14] MEDS: lisinopriL 20 MG TABLET PO (07:58)
[2020-08-14] MEDS: amLODIPine Besylate 5 MG TABLET PO (07:58)
[2020-08-14] MEDS: 0.9 % Sodium Chloride Flush 3 ML SYRINGE IVFLUSH ×2 (07:58→15:14)
--- NOTE | 2020-08-14 08:23 | HO.PM.IMPN ---
Subjective Subjective Date of Service: 08/14/20 Interval History: Seem in f/u for abdominal pain related to ischemic colitis, overall better but still has some pain, but still having diarrhea, says she had 4 episodes overnight Review of Systems Gen: no fever Resp: no sob, no cough CV: no chest, no CABRERA, no leg edema GI: No n/v, no abd pain Neuro: No confusion Physical Exam Vital Signs: Vital Signs: Last Vital Signs Temp 97.7 F 08/14/20 07:55 Pulse 82 08/14/20 07:58 Resp 18 08/14/20 07:55 BP 160/93 H 08/14/20 07:55 Pulse Ox 98 08/14/20 07:55 Body Mass Index 38.6 Const: Other: General: AO X 3, no acute distress Resp: CTA bilateral CVS: S1,S2,RRR GI: +BS, mild non-specific tenderness Skin: No rash Neuro: motor grossly intact Psych: appropriate affect Objective Data Current Medications Generic Name Dose Route Start Last Admin Trade Name Freq PRN Reason Stop Dose Admin Acetaminophen 650 mg 08/06/20 20:11 08/14/20 00:08 Acetaminophen 325 Mg Tablet PO 650 mg Q6H PRN Administration Pain, Mild (Pain Scale 1-3) Acetaminophen/Butalbital/Caffeine 1 tab 08/08/20 12:18 08/13/20 08:29 Butalb/Acetamin/Caff 50/325/40 Tablet PO 1 tab Q6H PRN Administration Headache Albuterol Sulfate 2 puff 08/06/20 20:11 Albuterol Sulfate 90 Mcg 8 Gm Inhaler INHALE Q4H PRN Wheezing Amlodipine Besylate 5 mg 08/12/20 12:15 08/14/20 07:58 Amlodipine Besylate 5 Mg Tablet PO 5 mg DAILY MAURISIO Administration Protocol Docusate Sodium 100 mg 08/06/20 20:11 08/08/20 15:46 Docusate Sodium 100 Mg Capsule PO 100 mg DAILY PRN Administration Constipation Enoxaparin Sodium 40 mg 08/06/20 21:00 08/13/20 20:13 Enoxaparin Sodium 40 Mg/0.4 Ml Syringe SUBCUT 40 mg Q24H MAURISIO Administration Ergocalciferol 1,250 mcg 08/08/20 09:00 08/08/20 09:28 Ergocalciferol (Vitamin D2) 1,250 Mcg Capsule PO 1,250 mcg Saha@0900 MAURISIO Administration Famotidine 20 mg 08/06/20 20:11 Famotidine 20 Mg Tablet PO BEDTIME PRN acid reflux Fentanyl 50 mcg 08/12/20 17:38 08/12/20 17:55 Fentanyl Citrate/Pf 100 Mcg/2 Ml Vial IVPUSH 50 mcg Q5M PRN Administration Pain, Severe (Pain Scale 7-10) Fluticasone/Vilanterol 1 puff 08/06/20 08:00 08/14/20 07:57 Fluticasone/Vilanterol 100/25 Blst.W.Dev INHALE 1 puff RDAILY MAURISIO Administration Ceftriaxone Sodium 1 gm/ 50 mls @ 100 mls/hr 08/08/20 23:00 08/13/20 23:53 Sodium Chloride IV Infused Q24H MAURISIO Infusion Metronidazole 500 mg in 100 mls @ 100 mls/hr 08/10/20 00:00 08/14/20 07:59 Flagyl IV 100 mls/hr Q8H MAURISIO Administration Levothyroxine Sodium 150 mcg 08/07/20 09:00 08/14/20 06:13 Levothyroxine Sodium 150 Mcg Tablet PO 150 mcg DAILY@0600 MAURISIO Administration Lisinopril 20 mg 08/07/20 09:00 08/14/20 07:58 Lisinopril 20 Mg Tablet PO 20 mg DAILY MAURISIO Administration Metoprolol Tartrate 50 mg 08/06/20 21:00 08/14/20 07:58 Metoprolol Tartrate 50 Mg Tablet PO 50 mg BID MAURISIO Administration Protocol Montelukast Sodium 10 mg 08/06/20 21:00 08/13/20 20:13 Montelukast Sodium 10 Mg Tablet PO 10 mg BEDTIME MAURISIO Administration Morphine Sulfate 3 mg 08/10/20 10:54 08/12/20 00:05 Morphine Sulfate 4 Mg/Ml Cartridge IVPUSH 3 mg Q3H PRN Administration Pain, Severe (Pain Scale 7-10) Omeprazole 20 mg 08/07/20 06:30 08/14/20 06:13 Omeprazole 20 Mg Capsule.Dr PO 20 mg DAILY@0630 MAURISIO Administration Ondansetron HCl 4 mg 08/06/20 20:11 08/13/20 16:09 Ondansetron Hcl 4 Mg/2 Ml Vial IVPUSH 4 mg Q8H PRN Administration Nausea and Vomiting Pharmacy Consult 1 each 08/06/20 15:30 Consult Rx Perform Med Rec MISCELLANE ONCE PRN Consult order Sodium Chloride 3 ml 08/07/20 00:00 08/14/20 07:58 0.9 % Sodium Chloride Flush 3 Ml Syringe IVFLUSH 3 ml QSHIFT MAURISIO Administration Sucralfate 1 gm 08/06/20 21:00 08/14/20 07:58 Sucralfate 1 Gm Tablet PO 1 gm BID MAURISIO Administration Sumatriptan Succinate 50 mg 08/07/20 16:08 08/07/20 16:56 Sumatriptan Succinate 50 Mg Tablet PO 50 mg DAILY PRN Administration Headache Labs CBC & Chem 7: 08/13/20 08:19 08/11/20 06:10 Labs: Laboratory Results - last 24 hr 08/13/20 08:19 Hgb 12.9 Hct 38.1 Microbiology Microbiology Results: Microbiology 08/11/20 Unknown Stool Culture - Final Stool Quality Stroke Does the patient have a stroke diagnosis?: No VTE Prior VTE?: No VTE Risk Level:: Medical - moderate - high VTE Device Contraindication: N/A - Device Ordered VTE Drug Contraindication: N/A - Med Ordered Assessment and Plan (1) Colitis: Status: Acute (2) Hypertensive urgency: Status: Acute (3) Headache: Status: Acute Assessment and Plan: 49-year-old female with past medical history of hypertension who presents to the hospital with complaints of a headache and elevated blood pressure. 1. Acute Ischemic Colitis slowly improving c. diff negative, stool cultures negative so far, luekocytosis improving, will recheck labs this AM continue iv rocephin day #6 and flagyl day #4 Colonoscopy 06/12 showed evidence of ischemic colits GI / Gen surg input appreciated Advance diet as britt 2. hypertensive urgency due to non-compliance with home meds continue current regime, BP is better now continue monitoring and adjust meds as needed 3. atypical chest pain - resolved - Came in with complaints of burning and stabbing in the midsternal and epigastric region - EKG shows no acute changes suggestive of ACS - Troponin ,3.5 , no further workup warranted 4. headache - resolved was likely tension headache, patient seen by Dr. Siegel he feels headache related to uncontrolled hypertension and migraine headache he recommend sumatriptan PRN 5. hypothyroidism - continue levothyroxine 6. asthma - no acute exacerbation - continue home inhalers DVT prophylaxis: Lovenox dispo: home next 1-2 days
--- NOTE | 2020-08-14 08:42 | PM.PNGS ---
Subjective Subjective Date of Service: 08/14/20 Interval history: Some abdominal pain but improved; passing loose stools Physical Exam Vital Signs: Vital Signs: Last Vital Signs Temp 97.7 F 08/14/20 07:55 Pulse 82 08/14/20 07:58 Resp 18 08/14/20 07:55 BP 160/93 H 08/14/20 07:55 Pulse Ox 98 08/14/20 07:55 Body Mass Index 38.6 Const: General: cooperative, comfortable and no acute distress Resp: Effort & Inspection: normal respiratory effort, no cough and no grunting Cardio: Rate: regular rate Rhythm: regular rhythm GI: Other: softly distended, mild tenderness in the left upper abdomen Percussion: Yes tympanic to percussion Skin: Other: warm and dry Progress Note: A&P Assessment and plan (1) Colitis: Status: Acute Assessment and Plan: 49 year old female with possible ischemic colitis; minimal abdominal pain, LUQ Supportive care. Advance diet Fall Risk Details Current Medications: Current Medications Generic Name Dose Route Start Last Admin Trade Name Freq PRN Reason Stop Dose Admin Acetaminophen 650 mg 08/06/20 20:11 08/14/20 00:08 Acetaminophen 325 Mg Tablet PO 650 mg Q6H PRN Administration Pain, Mild (Pain Scale 1-3) Acetaminophen/Butalbital/Caffeine 1 tab 08/08/20 12:18 08/13/20 08:29 Butalb/Acetamin/Caff 50/325/40 Tablet PO 1 tab Q6H PRN Administration Headache Albuterol Sulfate 2 puff 08/06/20 20:11 Albuterol Sulfate 90 Mcg 8 Gm Inhaler INHALE Q4H PRN Wheezing Amlodipine Besylate 5 mg 08/12/20 12:15 08/14/20 07:58 Amlodipine Besylate 5 Mg Tablet PO 5 mg DAILY MAURISIO Administration Protocol Docusate Sodium 100 mg 08/06/20 20:11 08/08/20 15:46 Docusate Sodium 100 Mg Capsule PO 100 mg DAILY PRN Administration Constipation Enoxaparin Sodium 40 mg 08/06/20 21:00 08/13/20 20:13 Enoxaparin Sodium 40 Mg/0.4 Ml Syringe SUBCUT 40 mg Q24H MAURISIO Administration Ergocalciferol 1,250 mcg 08/08/20 09:00 08/08/20 09:28 Ergocalciferol (Vitamin D2) 1,250 Mcg Capsule PO 1,250 mcg Saha@0900 MAURISIO Administration Famotidine 20 mg 08/06/20 20:11 Famotidine 20 Mg Tablet PO BEDTIME PRN acid reflux Fentanyl 50 mcg 08/12/20 17:38 08/12/20 17:55 Fentanyl Citrate/Pf 100 Mcg/2 Ml Vial IVPUSH 50 mcg Q5M PRN Administration Pain, Severe (Pain Scale 7-10) Fluticasone/Vilanterol 1 puff 08/06/20 08:00 08/14/20 07:57 Fluticasone/Vilanterol 100/25 Blst.W.Dev INHALE 1 puff RDAILY MAURISIO Administration Ceftriaxone Sodium 1 gm/ 50 mls @ 100 mls/hr 08/08/20 23:00 08/13/20 23:53 Sodium Chloride IV Infused Q24H MAURISIO Infusion Metronidazole 500 mg in 100 mls @ 100 mls/hr 08/10/20 00:00 08/14/20 07:59 Flagyl IV 100 mls/hr Q8H MAURISIO Administration Levothyroxine Sodium 150 mcg 08/07/20 09:00 08/14/20 06:13 Levothyroxine Sodium 150 Mcg Tablet PO 150 mcg DAILY@0600 MAURISIO Administration Lisinopril 20 mg 08/07/20 09:00 08/14/20 07:58 Lisinopril 20 Mg Tablet PO 20 mg DAILY MAURISIO Administration Metoprolol Tartrate 50 mg 08/06/20 21:00 08/14/20 07:58 Metoprolol Tartrate 50 Mg Tablet PO 50 mg BID MAURISIO Administration Protocol Montelukast Sodium 10 mg 08/06/20 21:00 08/13/20 20:13 Montelukast Sodium 10 Mg Tablet PO 10 mg BEDTIME MAURISIO Administration Morphine Sulfate 3 mg 08/10/20 10:54 08/12/20 00:05 Morphine Sulfate 4 Mg/Ml Cartridge IVPUSH 3 mg Q3H PRN Administration Pain, Severe (Pain Scale 7-10) Omeprazole 20 mg 08/07/20 06:30 08/14/20 06:13 Omeprazole 20 Mg Capsule.Dr PO 20 mg DAILY@0630 MAURISIO Administration Ondansetron HCl 4 mg 08/06/20 20:11 08/13/20 16:09 Ondansetron Hcl 4 Mg/2 Ml Vial IVPUSH 4 mg Q8H PRN Administration Nausea and Vomiting Pharmacy Consult 1 each 08/06/20 15:30 Consult Rx Perform Med Rec MISCELLANE ONCE PRN Consult order Sodium Chloride 3 ml 08/07/20 00:00 08/14/20 07:58 0.9 % Sodium Chloride Flush 3 Ml Syringe IVFLUSH 3 ml QSHIFT MAURISIO Administration Sucralfate 1 gm 08/06/20 21:00 08/14/20 07:58 Sucralfate 1 Gm Tablet PO 1 gm BID MAURISIO Administration Sumatriptan Succinate 50 mg 08/07/20 16:08 08/07/20 16:56 Sumatriptan Succinate 50 Mg Tablet PO 50 mg DAILY PRN Administration Headache Time Spent With Patient Time: Total time spent is greater than 50% in coordination of care (as documented) at patient's floor/unit and/or counseling patient: Time with patient: 15 - 24 minutes Procedures Date of Service Date of Service: 08/14/20 Quality Stroke Does the patient have a stroke diagnosis?: No VTE Prior VTE?: No VTE Risk Level:: Medical - moderate - high VTE Device Contraindication: N/A - Device Ordered VTE Drug Contraindication: N/A - Med Ordered
[2020-08-14 10:05] LABS: Hematocrit 37.4 % (37-47); Hemoglobin 12.9 g/dl (12.0-16.0); Mean Corpuscular HGB Conc 34.5 g/dl (31.0-35.0); Mean Corpuscular Hemoglobin 31.1 pg (27.0-33.0); Mean Corpuscular Volume 90.1 fL (80-98); Mean Platelet Volume 10.2 fL (9.4-12.3); Platelet Count 275 X10*3/uL (160-400); Red Blood Count 4.15 X10*6/uL (4.20-5.50); Red Cell Distribution Width 12.8 % (11.0-16.0); White Blood Count 10.2 X10*3/uL (4.8-10.8)
--- NOTE | 2020-08-14 16:13 | PM.PNNEP ---
Subjective Subjective Date of Service: 08/14/20 Interval history: BP is better controlled Physical Exam Vital Signs: Vital Signs: Last Vital Signs Temp 96.2 F L 08/14/20 15:54 Pulse 74 08/14/20 15:54 Resp 15 08/14/20 15:54 BP 142/84 H 08/14/20 15:54 Pulse Ox 97 08/14/20 15:54 Body Mass Index 38.6 Const: General: alert and awake Orientation/consciousness: patient oriented x3 Neck: Neck: Yes supple Resp: Auscultation: no rhonchi Cardio: Palpation: no palpable S3 Heart sounds: no rubs GI: Palpation (GI): Soft to palpation and Tenderness to palpation present (GI) Neuro: General: patient oriented x3 Motor exam (neuro): No Asterixis during motor activity present Objective Data Labs CBC & Chem 7: 08/14/20 09:25 08/11/20 06:10 Labs: Laboratory Results - last 24 hr 08/14/20 09:25 WBC 10.2 RBC 4.15 L Hgb 12.9 Hct 37.4 MCV 90.1 MCH 31.1 MCHC 34.5 RDW 12.8 Plt Count 275 MPV 10.2 Absolute Nucleated RBC 0.000 Nucleated RBC % (auto) 0.0 Microbiology Microbiology Results: Microbiology 08/11/20 Unknown Stool Stool Culture - Final Assessment & Plan Assessment and plan (1) Colitis: Status: Acute Assessment and Plan: 49-year-old woman with uncontrolled hypertension and migraine. Pt has had difficult to control hypertension. There was no evidence of renal artery stenosis based on renal ultrasonogram and renal Doppler. There is no evidence of hypokalemia or alkalosis to suggest hyperaldosteronism. She probably has essential hypertension. Current medications were reviewed. I changed lisinopril to Losartan 100 mg daily I would avoid using intravenous agents and avoid rapid drops in blood pressure. We will keep her on a low-sodium diet. She needs weight loss and we will follow her along with the team. Will follow PA/ PRA Time Spent With Patient Time: Total time spent is greater than 50% in coordination of care (as documented) at patient's floor/unit and/or counseling patient: Procedures Date of Service Date of Service: 08/14/20 Progress Note: Quality Stroke Does the patient have a stroke diagnosis?: No
[2020-08-14] MEDS: Enoxaparin Sodium 40 MG/0.4 ML SYRINGE SUBCUT (20:22)
[2020-08-14] MEDS: Montelukast Sodium 10 MG TABLET PO (20:22)
[2020-08-14] MEDS: cefTRIAXone sodium 1 GM in 0.9 % Sodium Chloride 50 ML IV (23:11)
[2020-08-15] VITALS (10 sets, daily range): BP systolic 132–154; BP diastolic 55–92; PULSE 73–96; RESP 15–20; TEMP 35.8–36.6; O2SAT 95–99
[2020-08-15] MEDS: metroNIDAZOLE/NS 500 MG/100 ML PIGGYBACK 100 MG IV ×4 (00:33→23:50)
[2020-08-15] MEDS: Levothyroxine Sodium 150 MCG TABLET PO (06:14)
[2020-08-15] MEDS: Omeprazole 20 MG CAPSULE.DR PO (06:14)
[2020-08-15] MEDS: 0.9 % Sodium Chloride Flush 3 ML SYRINGE IVFLUSH ×3 (07:45→21:06)
[2020-08-15] MEDS: Acetaminophen 325 MG TABLET 650 MG PO ×2 (07:54→15:21)
[2020-08-15] MEDS: Fluticasone/Vilanterol 100/25 BLST.W.DEV 1 PUFF INHALE (08:05)
--- NOTE | 2020-08-15 08:13 | PM.DS ---
DS: Providers Provider Date of Service: 08/28/20 Date of admission: 08/06/20 16:58 Primary care physician: Tommy Smith MD Consults: 08/06/20 20:11 Consult to Neurology Routine Consulting Provider: [facility] Reason for consultation: hypertensive, numbness in face Has provider been notified: No 08/08/20 13:08 Consult to Nephrology Routine Consulting Provider: Toby Aly Reason for consultation: uncontrolled bp Has provider been notified: No 08/08/20 22:14 Consult to General Surgery Routine Consulting Provider: Nelson Murguia Reason for consultation: Abd pain; Colitis; partial SBO 08/12/20 11:18 Consult to Gastroenterology Routine Consulting Provider: Sky Horton Reason for consultation: colitis, not improving on antibiotics DS: Diagnosis Discharge Diagnosis (1) Colitis: Status: Resolved DS: Medications Discharge Medications Home Medications: Home Medications Medication Instructions Recorded Confirmed fluticasone 232 mcg-salmeterol 14 1 inh INHALATION BID PRN 12/05/19 08/06/20 mcg/actuation breath activated powdr montelukast 10 mg tablet 10 mg PO BEDTIME 12/05/19 08/06/20 albuterol sulfate 90 mcg/actuation 2 puff INHALATION Q4-6H PRN 12/15/19 08/06/20 aerosol inhaler polyethylene glycol 3350 [Miralax] 17 g PO Q2D 08/06/20 08/06/20 sucralfate 1 tab PO BID 08/06/20 08/06/20 Previous Rx's Medication Instructions Recorded famotidine 20 mg tablet 20 mg PO BEDTIME PRN 30 Days #30 12/31/19 tab omalizumab 150 mg/mL subcutaneous 300 mg SUBCUT Q2W #4 ml 03/25/20 syringe omeprazole 20 mg capsule,delayed 20 mg PO DAILY 30 Days #30 cap 04/22/20 release levothyroxine 150 mcg tablet 150 mcg PO DAILY 30 Days #30 tab 05/20/20 ergocalciferol (vitamin D2) 1,250 1,250 mcg PO QWEEK 56 Days #8 cap 06/21/20 mcg (50,000 unit) capsule meloxicam 15 mg tablet 15 mg PO DAILY #20 tab 06/22/20 aciiqhejjj-pjdehvvqzsnoo-kmmw 1 cap PO Q8H PRN #30 cap 08/07/20 [Fioricet] hydralazine 25 mg PO BID #180 tab 08/07/20 lisinopril-hydrochlorothiazide 1 tab PO DAILY #90 tab 08/07/20 metoprolol tartrate 50 mg PO BID #60 tab 08/07/20 DS: Summary Hospital Course Hospital Course: 49-year-old female with past medical history of hypertension, fibromyalgia, hypothyroidism, history of MT, history of TIA among others who presents to the hospital with complaints of headache, elevated blood pressure. Patient reports that she started having a headache this all over her head about 3 days ago and has been checking her blood pressure which has been in 180s over 110s to 130s. Patient reports midsternal chest pain that is shooting in sensation, as well as epigastric pain that feels like burning. Each 1 started about 2 days ago, on and off, lasting about 10-20 minutes. Nonradiating. Patient denies any abdominal pain but has nausea no vomiting. No urinary symptoms. Patient has no fever or chills. She is complaining of mild shortness of breath with no orthopnea or PND. She is also complaining of numbness on the left side of her mouth, no slurred speech, numbness in her left arm. She is feeling generally weak with no specific weakness in arms or legs. She has no urinary symptoms and no lower extremity edema. Although patient reports compliance with her medication, pharmacy review showed that she has not filled any of her blood pressure medications since September of 2019 and some in December of 2019 with no refills. On arrival to the ED patient's blood pressure noted to be 206/127, temp of 99.1?, heart rate of 80, respiratory rate of 19, satting 99% on room air..Aparently she has not been taking her medication. After 2 days in the hospital, she developped abdominal pain and CT of the abdomen 08/18 showed partial SBO and colitis and that point was started on antibioitcs with Ceftriaxone and Flagyl and ultimately will have colonoscopy with finding consistent with ischemic colitis. Hospital course by problems: 1. Acute Ischemic Colitis--She has been emprically treated with Ceftriaxone for 7 days and flagyl for 5 days. She has no fever and no Leukocytosis. C dif was negative, she had diarrhea and this has significantly improved. She had colonoscopy by Dr. Horton on 06/12 with finding consistent with ischemic colitis. She has improved and diet has been advanced. She has sufficiencly been treated with ceftriaxone for 7 days and will complete course of flagyl for 7 days as well. 2. hypertensive urgency--Treated initially with IV medication, and is back on oral medication with Lisinopril 20 daily Metoprolol 50 bid and Norvasc 5 but will increase to 10 at discharge due to non-compliance with home meds. continue current regime, BP is better now continue monitoring and adjust meds as needed 3. atypical chest pain - resolved. Came in with complaints of burning and stabbing in the midsternal and epigastric region. EKG shows no acute changes suggestive of ACS. Troponin ,3.5 , no further workup warranted 4. Headache - resolved was likely tension headache, patient seen by Dr. Siegel he feels headache related to uncontrolled hypertension and migraine headache he recommend sumatriptan PRN 5. hypothyroidism - continue levothyroxine 6. asthma - no acute exacerbation. continue home inhalers Attending Attestation: Patient seen and examined independently and I was present during palomo portion of E/M service. Agree with Cuauhtemoc Mcguire NP's history, physical, assessment, and plan. Time Spent with Patient Time attestation: Total time spent providing and/or coordinating discharge services: Discharge coordination time: Greater than 30 minutes Quality: Stroke Does the patient have a stroke diagnosis?: No Physical Exam Vital Signs: Vital Signs: Last Vital Signs Temp 98 F 08/15/20 07:13 Pulse 96 08/15/20 08:06 Resp 19 08/15/20 07:13 BP 139/87 08/15/20 07:13 Pulse Ox 97 08/15/20 07:13 Body Mass Index 38.6 Const: Other: Constitutional Awake and Alert, No apparent distress Neck Supple, No lymphadenopathy Cardiovascular RRR, No M/R/G, S1 S2, No S3 S4, No pedal edema Respiratory Lungs clear, No respiratory distress Gastrointestinal Non tender, Non-distended Skin No rash Neurological Alert & oriented x3 Psychological Appropriate affect DS: Data Data Completed and Pending Pending studies at discharge: Pending at discharge 08/12/20 17:10 Surgical [PTH] Routine Labs on day of discharge: Laboratory Results - last 24 hr 08/14/20 09:25 WBC 10.2 RBC 4.15 L Hgb 12.9 Hct 37.4 MCV 90.1 MCH 31.1 MCHC 34.5 RDW 12.8 Plt Count 275 MPV 10.2 Absolute Nucleated RBC 0.000 Nucleated RBC % (auto) 0.0 Discharge Plan Discharge Anticipated Discharge Date/Time: 08/16/20 10:05 Patient Disposition: Home, Self-Care Discharge Diagnosis: Hypertensive urgency Ischemic colitis Referrals: Tommy Smith MD [Primary Care Provider] - 1 Week Discharge Medications: New trxatzacop-sddmqjybmadgp-ljpf [Fioricet] 50-300-40 mg capsule 1 cap PO Q8H PRN (Reason: pain) 5 Days Qty: 15 RF: 0 amlodipine 10 mg tablet 10 mg PO DAILY Qty: 30 RF: 0 Continued famotidine 20 mg tablet 20 mg PO BEDTIME PRN (Reason: acid reflux) 30 Days Qty: 30 RF: 3 omalizumab [Xolair] 150 mg/mL syringe 300 mg subcut Q2W Qty: 4 RF: 11 levothyroxine 150 mcg tablet 150 mcg PO DAILY 30 Days Qty: 30 RF: 11 sucralfate 1 gram tablet 1 tab PO BID RF: 0 polyethylene glycol 3350 [Miralax] 17 gram/dose powder 17 g PO Q2D RF: 0 metoprolol tartrate 50 mg tablet 50 mg PO BID Qty: 60 RF: 2 albuterol sulfate [ProAir HFA] 90 mcg/actuation HFA aerosol inhaler 2 puff inhalation Q4-6H PRN (Reason: Wheezing) RF: 0 fluticasone propion-salmeterol 232-14 mcg/actuation aerosol powdr breath activated 1 inh inhalation BID PRN (Reason: Wheezing) RF: 0 montelukast 10 mg tablet 10 mg PO BEDTIME RF: 0 omeprazole 20 mg capsule,delayed release(DR/EC) 20 mg PO DAILY 30 Days Qty: 30 RF: 4 Discontinued hydralazine 25 mg tablet 25 mg PO BID Qty: 180 RF: 1 lisinopril-hydrochlorothiazide 20-25 mg tablet 1 tab PO DAILY Qty: 90 RF: 1 meloxicam 15 mg tablet 15 mg PO DAILY Qty: 20 RF: 0 No Action betamethasone valerate 0.1 % cream 1 appl topical BID PRN (Reason: skin irritation) Qty: 45 RF: 0 hydroxyzine HCl 25 mg tablet 25 mg PO TID PRN (Reason: itching) Qty: 21 RF: 0 Discharge Orders: Discharge Order (Routine); Ordered 08/16/20 Ordered By: Vickie Mcguire Diet: advance to usual diet Activity on Discharge: As tolerated Stand Alone Forms: Patient Portal Discharge page Care Plan Goals: Compliance with medications, recovery, avoid hospitalization Health Concerns: Hypertension Ischemic colitis Plan of Treatment: Continue home antihypertensives Follow up with primary care provider as needed and if episodes of bleeding occur Assessment: In regards to hypertensions urgency, it is very crucial that you continue being compliant with your hypertension medications in regards to headache, please take Fioricet as needed I saw and examined the patient and discussed, management and disposition and discharge plan with SHALOM and I agree with Discharge planjoe as written by SHALOM, except as otherwise stated Discharge Date/Time: 08/16/20 12:17
--- NOTE | 2020-08-15 08:31 | P.PNIM_ITS ---
Subjective Subjective Date of Service: 08/15/20 Interval History: Seem in f/u for abdominal pain related to ischemic colitis, overall better still has some pain, diarrhea is better. Review of Systems Gen: no fever Resp: no sob, no cough CV: no chest, no CABRERA, no leg edema GI: No n/v, no abd pain Neuro: No confusion Physical Exam Vital Signs: Vital Signs: Last Vital Signs Temp 98 F 08/15/20 07:13 Pulse 96 08/15/20 08:06 Resp 19 08/15/20 07:13 BP 139/87 08/15/20 07:13 Pulse Ox 97 08/15/20 07:13 Body Mass Index 38.6 Const: Other: Constitutional Awake and Alert, No apparent distress Neck Supple, No lymphadenopathy Cardiovascular RRR, No M/R/G, S1 S2, No S3 S4, No pedal edema Respiratory Lungs clear, No respiratory distress Gastrointestinal mild tenderness, Non-distended Skin No rash Neurological Alert & oriented x3 Psychological Appropriate affect Objective Data Current Medications Generic Name Dose Route Start Last Admin Trade Name Freq PRN Reason Stop Dose Admin Acetaminophen 650 mg 08/06/20 20:11 08/15/20 07:54 Acetaminophen 325 Mg Tablet PO 650 mg Q6H PRN Administration Pain, Mild (Pain Scale 1-3) Acetaminophen/Butalbital/Caffeine 1 tab 08/08/20 12:18 08/13/20 08:29 Butalb/Acetamin/Caff 50/325/40 Tablet PO 1 tab Q6H PRN Administration Headache Albuterol Sulfate 2 puff 08/06/20 20:11 Albuterol Sulfate 90 Mcg 8 Gm Inhaler INHALE Q4H PRN Wheezing Amlodipine Besylate 5 mg 08/12/20 12:15 08/14/20 07:58 Amlodipine Besylate 5 Mg Tablet PO 5 mg DAILY MAURISIO Administration Protocol Docusate Sodium 100 mg 08/06/20 20:11 08/08/20 15:46 Docusate Sodium 100 Mg Capsule PO 100 mg DAILY PRN Administration Constipation Enoxaparin Sodium 40 mg 08/06/20 21:00 08/14/20 20:22 Enoxaparin Sodium 40 Mg/0.4 Ml Syringe SUBCUT 40 mg Q24H MAURISIO Administration Ergocalciferol 1,250 mcg 08/08/20 09:00 08/08/20 09:28 Ergocalciferol (Vitamin D2) 1,250 Mcg Capsule PO 1,250 mcg Saha@0900 MAURISIO Administration Famotidine 20 mg 08/06/20 20:11 Famotidine 20 Mg Tablet PO BEDTIME PRN acid reflux Fentanyl 50 mcg 08/12/20 17:38 08/12/20 17:55 Fentanyl Citrate/Pf 100 Mcg/2 Ml Vial IVPUSH 50 mcg Q5M PRN Administration Pain, Severe (Pain Scale 7-10) Fluticasone/Vilanterol 1 puff 08/06/20 08:00 08/15/20 08:05 Fluticasone/Vilanterol 100/25 Blst.W.Dev INHALE 1 puff RDAILY MAURISIO Administration Metronidazole 500 mg in 100 mls @ 100 mls/hr 08/10/20 00:00 08/15/20 07:45 Flagyl IV 100 mls/hr Q8H MAURISIO Administration Levothyroxine Sodium 150 mcg 08/07/20 09:00 08/15/20 06:14 Levothyroxine Sodium 150 Mcg Tablet PO 150 mcg DAILY@0600 [facility] Administration Lisinopril 20 mg 08/07/20 09:00 08/14/20 07:58 Lisinopril 20 Mg Tablet PO 20 mg DAILY MAURISIO Administration Metoprolol Tartrate 50 mg 08/06/20 21:00 08/14/20 20:22 Metoprolol Tartrate 50 Mg Tablet PO 50 mg BID MAURISIO Administration Protocol Montelukast Sodium 10 mg 08/06/20 21:00 08/14/20 20:22 Montelukast Sodium 10 Mg Tablet PO 10 mg BEDTIME MAURISIO Administration Morphine Sulfate 3 mg 08/10/20 10:54 08/12/20 00:05 Morphine Sulfate 4 Mg/Ml Cartridge IVPUSH 3 mg Q3H PRN Administration Pain, Severe (Pain Scale 7-10) Omeprazole 20 mg 08/07/20 06:30 08/15/20 06:14 Omeprazole 20 Mg Capsule.Dr PO 20 mg DAILY@0630 [facility] Administration Ondansetron HCl 4 mg 08/06/20 20:11 08/13/20 16:09 Ondansetron Hcl 4 Mg/2 Ml Vial IVPUSH 4 mg Q8H PRN Administration Nausea and Vomiting Pharmacy Consult 1 each 08/06/20 15:30 Consult Rx Perform Med Rec MISCELLANE ONCE PRN Consult order Sodium Chloride 3 ml 08/07/20 00:00 08/15/20 07:45 0.9 % Sodium Chloride Flush 3 Ml Syringe IVFLUSH 3 ml QSHIFT MAURISIO Administration Sucralfate 1 gm 08/06/20 21:00 08/14/20 20:22 Sucralfate 1 Gm Tablet PO 1 gm BID MAURISIO Administration Sumatriptan Succinate 50 mg 08/07/20 16:08 08/07/20 16:56 Sumatriptan Succinate 50 Mg Tablet PO 50 mg DAILY PRN Administration Headache Labs CBC & Chem 7: 08/14/20 09:25 08/11/20 06:10 Labs: Laboratory Results - last 24 hr 08/14/20 09:25 WBC 10.2 RBC 4.15 L Hgb 12.9 Hct 37.4 MCV 90.1 MCH 31.1 MCHC 34.5 RDW 12.8 Plt Count 275 MPV 10.2 Absolute Nucleated RBC 0.000 Nucleated RBC % (auto) 0.0 Microbiology Microbiology Results: Microbiology 08/11/20 Unknown Stool Culture - Final Stool Quality Stroke Does the patient have a stroke diagnosis?: No VTE Prior VTE?: No VTE Risk Level:: Medical - moderate - high VTE Device Contraindication: N/A - Device Ordered VTE Drug Contraindication: N/A - Med Ordered Assessment and Plan (1) Colitis: Status: Acute Assessment and Plan: 49-year-old female with past medical history of hypertension who presents to the hospital with complaints of a headache and elevated blood pressure. Acute Ischemic Colitis--She has been emprically treated with Ceftriaxone for 7 days and flagyl for 5 days. She has no fever and no Leukocytosis. C dif was negative, she had diarrhea and this has significantly improved. She had colonoscopy by Dr. Horton on 06/12 with finding consistent with ischemic colitis. She has improved and diet has been advanced. She has sufficiencly been treated with ceftriaxone for 7 days and will complete course of flagyl for 7 days as well. 2. hypertensive urgency--Treated initially with IV medication, and is back on oral medication with Lisinopril 20 daily Metoprolol 50 bid and Norvasc 5 but will increase to 10 today--Nephrology is recommending changing Lisinopril to losartan 20 daily. Compliance is greatly emphasized. Renal doppler was negative for REBECA 3. atypical chest pain - resolved - Came in with complaints of burning and stabbing in the midsternal and epigastric region - EKG shows no acute changes suggestive of ACS - Troponin ,3.5 , no further workup warranted 4. Headache - resolved was likely tension headache, patient seen by Dr. Siegel he feels headache related to uncontrolled hypertension and migraine headache he recommend sumatriptan PRN 5. hypothyroidism - continue levothyroxine 6. asthma - no acute exacerbation - continue home inhalers home later today if tolerate diet
[2020-08-15] MEDS: Metoprolol Tartrate 50 MG TABLET PO ×2 (09:13→21:05)
[2020-08-15] MEDS: amLODIPine Besylate 5 MG TABLET 10 MG PO (09:13)
[2020-08-15] MEDS: Losartan Potassium 50 MG TABLET 100 MG PO (09:13)
[2020-08-15] MEDS: Sucralfate 1 GM TABLET PO ×2 (09:13→21:05)
[2020-08-15] MEDS: Morphine Sulfate 4 MG/ML CARTRIDGE 3 MG IVPUSH (11:04)
[2020-08-15] MEDS: Ergocalciferol (Vitamin D2) 1,250 MCG CAPSULE 1250 MCG PO (11:08)
--- NOTE | 2020-08-15 17:41 | PC.NURSE ---
PT C/O ABDOMINAL PAIN 10 AFTER EATING EGGS AND TOAST THIS MORNING. MEDICATED WITH IV MORPHINE WITH GOOD EFFECT. DR AVALOS NOTIFIED
[2020-08-15] MEDS: traMADoL HCL 50 MG TABLET PO (21:05)
[2020-08-15] MEDS: Montelukast Sodium 10 MG TABLET PO (21:05)
[2020-08-15] MEDS: Enoxaparin Sodium 40 MG/0.4 ML SYRINGE SUBCUT (21:45)
[2020-08-16 04:00] VITALS: BP 149/89; PULSE 83; RESP 18; TEMP 36.2; O2SAT 98
[2020-08-16] MEDS: Levothyroxine Sodium 150 MCG TABLET PO (05:45)
[2020-08-16] MEDS: Omeprazole 20 MG CAPSULE.DR PO (05:45)
[2020-08-16] MEDS: 0.9 % Sodium Chloride Flush 3 ML SYRINGE IVFLUSH (07:25)
[2020-08-16] MEDS: metroNIDAZOLE/NS 500 MG/100 ML PIGGYBACK 100 MG IV (07:26)
[2020-08-16 08:00] VITALS: BP 150/90; PULSE 80; RESP 18; TEMP 36.1; O2SAT 97
[2020-08-16] MEDS: Fluticasone/Vilanterol 100/25 BLST.W.DEV 1 PUFF INHALE (08:02)
[2020-08-16 08:07] VITALS: PULSE 78; O2SAT 98
[2020-08-16] MEDS: Sucralfate 1 GM TABLET PO (08:32)
[2020-08-16] MEDS: Metoprolol Tartrate 50 MG TABLET PO (08:32)
[2020-08-16] MEDS: amLODIPine Besylate 5 MG TABLET 10 MG PO (08:33)
[2020-08-16] MEDS: Losartan Potassium 50 MG TABLET 100 MG PO (08:33)
--- NOTE | 2020-08-16 10:07 | P.DS_ITS ---
DS: Providers Provider Date of Service: 08/16/20 <Vickie Mcguire NP - Last Filed: 08/17/20 16:56> Date of admission: 08/06/20 16:58 <Vickie Mcguire NP - Last Filed: 08/17/20 16:56> Date of discharge: 08/16/20 <Vickie Mcguire NP - Last Filed: 08/17/20 16:56> Primary care physician: Tommy Smith MD <Vickie Mcguire NP - Last Filed: 08/17/20 16:56> Admitting clinician: Ketan Rodriguez <Vickie Mcguire NP - Last Filed: 08/17/20 16:56> Attending physician on admission: Ketan Rodriguez <Vickie Mcguire NP - Last Filed: 08/17/20 16:56> Consults: 08/06/20 20:11 Consult to Neurology Routine Consulting Provider: [facility] Reason for consultation: hypertensive, numbness in face Has provider been notified: No 08/08/20 13:08 Consult to Nephrology Routine Consulting Provider: Toby Aly Reason for consultation: uncontrolled bp Has provider been notified: No 08/08/20 22:14 Consult to General Surgery Routine Consulting Provider: Nelson Murguia Reason for consultation: Abd pain; Colitis; partial SBO 08/12/20 11:18 Consult to Gastroenterology Routine Consulting Provider: Sky Horton Reason for consultation: colitis, not improving on antibiotics <Vickie Mcguire NP - Last Filed: 08/17/20 16:56> Attending physician on discharge: Jay Draper <Vickie Mcguire NP - Last Filed: 08/17/20 16:56> Discharging clinician: Vickie Mcguire <Vickie Mcguire NP - Last Filed: 08/17/20 16:56> DS: Diagnosis Discharge Diagnosis (1) Colitis: Status: Acute <Vickie Mcguire NP - Last Filed: 08/17/20 16:56> DS: Medications Discharge Medications Home Medications: Home Medications Medication Instructions Recorded Confirmed fluticasone 232 mcg-salmeterol 14 1 inh INHALATION BID PRN 12/05/19 08/06/20 mcg/actuation breath activated powdr montelukast 10 mg tablet 10 mg PO BEDTIME 12/05/19 08/06/20 albuterol sulfate 90 mcg/actuation 2 puff INHALATION Q4-6H PRN 12/15/19 08/06/20 aerosol inhaler polyethylene glycol 3350 [Miralax] 17 g PO Q2D 08/06/20 08/06/20 sucralfate 1 tab PO BID 08/06/20 08/06/20 Previous Rx's Medication Instructions Recorded famotidine 20 mg tablet 20 mg PO BEDTIME PRN 30 Days #30 12/31/19 tab omalizumab 150 mg/mL subcutaneous 300 mg SUBCUT Q2W #4 ml 03/25/20 syringe omeprazole 20 mg capsule,delayed 20 mg PO DAILY 30 Days #30 cap 04/22/20 release levothyroxine 150 mcg tablet 150 mcg PO DAILY 30 Days #30 tab 05/20/20 ergocalciferol (vitamin D2) 1,250 1,250 mcg PO QWEEK 56 Days #8 cap 06/21/20 mcg (50,000 unit) capsule sqfpofhwkr-qydyvprmzyjqg-qyzd 1 cap PO Q8H PRN #30 cap 08/07/20 [Fioricet] metoprolol tartrate 50 mg PO BID #60 tab 08/07/20 amlodipine [Norvasc] 10 mg PO DAILY #30 tab 08/15/20 <Vickie Mcguire NP - Last Filed: 08/17/20 16:56> DS: Summary Hospital Course Hospital Course: 49-year-old female with past medical history of hypertension, fibromyalgia, hypothyroidism, history of RI, history of TIA among others who presents to the hospital with complaints of headache, elevated blood pressure. Patient reports that she started having a headache this all over her head about 3 days ago and has been checking her blood pressure which has been in 180s over 110s to 130s. Patient reports midsternal chest pain that is shooting in sensation, as well as epigastric pain that feels like burning. Each 1 started about 2 days ago, on and off, lasting about 10-20 minutes. Nonradiating. Patient denies any abdominal pain but has nausea no vomiting. No urinary symptoms. Patient has no fever or chills. She is complaining of mild shortness of breath with no orthopnea or PND. She is also complaining of numbness on the left side of her mouth, no slurred speech, numbness in her left arm. She is feeling generally weak with no specific weakness in arms or legs. She has no urinary symptoms and no lower extremity edema. Although patient reports compliance with her medication, pharmacy review showed that she has not filled any of her blood pressure medications since September of 2019 and some in December of 2019 with no refills. On arrival to the ED patient's blood pressure noted to be 206/127, temp of 99.1?, heart rate of 80, respiratory rate of 19, satting 99% on room air..Aparently she has not been taking her medication. After 2 days in the hospital, she developped abdominal pain and CT of the abdomen 08/18 showed partial SBO and colitis and that point was started on antibioitcs with Ceftriaxone and Flagyl and ultimately will have colonoscopy with finding consistent with ischemic colitis. Hospital course by problems: 1. Acute Ischemic Colitis--She has been emprically treated with Ceftriaxone for 7 days and flagyl for 5 days. She has no fever and no Leukocytosis. C dif was negative, she had diarrhea and this has significantly improved. She had colonoscopy by Dr. Horton on 06/12 with finding consistent with ischemic colitis. She has improved and diet has been advanced. She has sufficiencly been treated with ceftriaxone for 7 days and will complete course of flagyl for 7 days as well. 2. hypertensive urgency--Treated initially with IV medication, and is back on oral medication with Lisinopril 20 daily Metoprolol 50 bid and Norvasc 5 but will increase to 10 at discharge due to non-compliance with home meds. continue current regime, BP is better now continue monitoring and adjust meds as needed 3. atypical chest pain - resolved. Came in with complaints of burning and stabbing in the midsternal and epigastric region. EKG shows no acute changes suggestive of ACS. Troponin ,3.5 , no further workup warranted 4. Headache - resolved was likely tension headache, patient seen by Dr. Siegel he feels headache related to uncontrolled hypertension and migraine headache he recommend sumatriptan PRN 5. hypothyroidism - continue levothyroxine 6. asthma - no acute exacerbation. continue home inhalers Attending Attestation: Patient seen and examined independently and I was present during palomo portion of E/M service. Agree with Cuauhtemoc Mcguire NP's history, physical, assessment, and plan. <Vickie Mcguire NP - Last Filed: 08/17/20 16:56> Time Spent with Patient Time attestation: Total time spent providing and/or coordinating discharge services: <Vickie Mcguire NP - Last Filed: 08/17/20 16:56> Discharge coordination time: Greater than 30 minutes <Vickie Mcguire NP - Last Filed: 08/17/20 16:56> Quality: Stroke Does the patient have a stroke diagnosis?: No <Vickie Mcguire NP - Last Filed: 08/17/20 16:56> Physical Exam Vital Signs: Vital Signs: Last Vital Signs Temp 97.0 F 08/16/20 08:00 Pulse 78 08/16/20 08:07 Resp 18 08/16/20 08:00 BP 150/90 H 08/16/20 08:00 Pulse Ox 97 08/16/20 08:00 Body Mass Index 38.6 <Vickie Mcguire NP - Last Filed: 08/17/20 16:56> Appearing in no acute distress head is normocephalic atraumatic eyes pupils are PERRLA sclera is anicteric mouth throat mucous membranes are intact and moist neck is supple no lymphadenopathy, no JVD noted lung sounds are clear to auscultation heart regular rate rhythm, clear S1, S2 positive bowel sounds, abdomen is soft, nontender neuro patient is alert x3, no focal deficits <Vickie Mcguire NP - Last Filed: 08/17/20 16:56> DS: Data Data Completed and Pending Pending studies at discharge: Pending at discharge 08/12/20 17:10 Surgical [PTH] Routine <Vickie Mcguire NP - Last Filed: 08/17/20 16:56> Discharge Plan Discharge Anticipated Discharge Date/Time: 08/16/20 10:05 <Vickie Mcguire NP - Last Filed: 08/17/20 16:56> Patient Disposition: Home, Self-Care <Vickie Mcguire NP - Last Filed: 08/17/20 16:56> Discharge Diagnosis: Hypertensive urgency Ischemic colitis <Vickie Mcguire NP - Last Filed: 08/17/20 16:56> Hypertensive urgency Ischemic colitis <Jay Draper MD - Last Filed: 08/18/20 16:27> Referrals: Tommy Smith MD [Primary Care Provider] - 1 Week <Vickie Mcguire NP - Last Filed: 08/17/20 16:56> Discharge Medications: New lsegfvqbsn-pebkqpcjzvuvf-oboy [Fioricet] 50-300-40 mg capsule 1 cap PO Q8H PRN (Reason: pain) 5 Days Qty: 15 RF: 0 amlodipine 10 mg tablet 10 mg PO DAILY Qty: 30 RF: 0 Continued famotidine 20 mg tablet 20 mg PO BEDTIME PRN (Reason: acid reflux) 30 Days Qty: 30 RF: 3 omalizumab [Xolair] 150 mg/mL syringe 300 mg subcut Q2W Qty: 4 RF: 11 levothyroxine 150 mcg tablet 150 mcg PO DAILY 30 Days Qty: 30 RF: 11 sucralfate 1 gram tablet 1 tab PO BID RF: 0 polyethylene glycol 3350 [Miralax] 17 gram/dose powder 17 g PO Q2D RF: 0 metoprolol tartrate 50 mg tablet 50 mg PO BID Qty: 60 RF: 2 albuterol sulfate [ProAir HFA] 90 mcg/actuation HFA aerosol inhaler 2 puff inhalation Q4-6H PRN (Reason: Wheezing) RF: 0 fluticasone propion-salmeterol 232-14 mcg/actuation aerosol powdr breath activated 1 inh inhalation BID PRN (Reason: Wheezing) RF: 0 montelukast 10 mg tablet 10 mg PO BEDTIME RF: 0 ergocalciferol (vitamin D2) 1,250 mcg (50,000 unit) capsule 1,250 mcg PO QWEEK 56 Days Qty: 8 RF: 0 omeprazole 20 mg capsule,delayed release(DR/EC) 20 mg PO DAILY 30 Days Qty: 30 RF: 4 Discontinued hydralazine 25 mg tablet 25 mg PO BID Qty: 180 RF: 1 lisinopril-hydrochlorothiazide 20-25 mg tablet 1 tab PO DAILY Qty: 90 RF: 1 meloxicam 15 mg tablet 15 mg PO DAILY Qty: 20 RF: 0 <Vickie Mcguire NP - Last Filed: 08/17/20 16:56> Discharge Orders: Discharge Order (Routine); Ordered 08/16/20 Ordered By: Vickie Mcguire <Vickie Mcguire NP - Last Filed: 08/17/20 16:56> Diet: advance to usual diet <Vickie Mcguire NP - Last Filed: 08/17/20 16:56> advance to usual diet <Jay Draper MD - Last Filed: 08/18/20 16:27> Activity on Discharge: As tolerated <Vickie Mcguire NP - Last Filed: 08/17/20 16:56> As tolerated <Jay Draper MD - Last Filed: 08/18/20 16:27> Stand Alone Forms: Patient Portal Discharge page <Vickie Mcguire NP - Last Filed: 08/17/20 16:56> Care Plan Goals: Compliance with medications, recovery, avoid hospitalization <Vickie Mcguire NP - Last Filed: 08/17/20 16:56> Health Concerns: Hypertension Ischemic colitis <Vickie Mcguire NP - Last Filed: 08/17/20 16:56> Plan of Treatment: Continue home antihypertensives Follow up with primary care provider as needed and if episodes of bleeding occur <Vickie Mcguire NP - Last Filed: 08/17/20 16:56> Assessment: In regards to hypertensions urgency, it is very crucial that you continue being compliant with your hypertension medications in regards to headache, please take Fioricet as needed <Vickie Mcguire NP - Last Filed: 08/17/20 16:56> Discharge Date/Time: 08/16/20 12:17 <Vickie Mcguire NP - Last Filed: 08/17/20 16:56>
[2020-08-17 15:47] LABS: Renin 4.13 ng/mL/h (0.25-5.82)
== END 2020-08-16 12:17 | disposition home or self-care (01) | DRG 199 ==
LOC: HO.ED 15:32 → HO.EDOVER 17:03 → HO.IMC 19:23 → HO.S3 08-07 02:34
PROVIDERS: Hospitalist; Internal Medicine; Internal Medicine Gastroenterology; Internal Medicine Hypertension Specialist; Surgery; Admitting Provider Internal Medicine; Emergency Provider Emergency Medicine; PCP Internal Medicine; Visit Provider Family Medicine
PROC: 0DJD8ZZ Inspection of Lower Intestinal Tract, Via Natural or Artificial Opening Endoscopic (ICD-10-PCS; CPT 45330; principal; 2020-08-12 17:00)
DX: I16.0 Hypertensive urgency (principal); K55.039 Acute (reversible) ischemia of large intestine, extent unspecified; K57.31 Diverticulosis of large intestine without perforation or abscess with bleeding; E03.9 Hypothyroidism, unspecified; J45.909 Unspecified asthma, uncomplicated; I10 Essential (primary) hypertension; Z91.14 Patient's other noncompliance with medication regimen; I25.2 Old myocardial infarction; R07.89 Other chest pain; Z20.822 Contact with and (suspected) exposure to COVID-19; Z79.51 Long term (current) use of inhaled steroids; Z88.5 Allergy status to narcotic agent; Z88.6 Allergy status to analgesic agent; Z79.890 Hormone replacement therapy; Z79.899 Other long term (current) drug therapy
CPT/HCPCS: 36415; 70450; 74176; 80048; 80076; 82088; 82150; 83690; 83735; 83880; 84244; 84484; 85014; 85018; 85025; 85027; 85610; 85730; 87045; 87046; 87324; 87449; 87635; 88305; 93005; 93975; 94640; 99285; J0696; J1200; J1650; J1885; J2060; J2270; J2405; J2765; J3010

== ENCOUNTER 2020-08-27 16:15 | Outpatient (REF) | payer OTHER, SELFPAY ==
--- NOTE | ~2020-08-27 | US_ITS ---
EXAMINATION: US VENOUS WITH DOPPLER UPPER EXTREMITY, RIGHT CLINICAL INFORMATION: Pain in right forearm COMPARISON: None TECHNIQUE: Ultrasound of the upper extremity is performed using compression sonography and color and pulse Doppler flow with assessment of augmentation of flow. There is also imaging and Doppler assessment of the jugular and subclavian veins. Spectral analysis with color-flow imaging is performed. FINDINGS: Respiratory variation, normal compression, and augmented flow are noted throughout the upper extremity including the axillary, brachial, cubital, and radial and ulnar veins. There is normal flow in the internal jugular and subclavian veins. There is no visible deep or superficial thrombophlebitis. If the patient's symptoms progress, a followup ultrasound in 5 -7 days might be of value to exclude proximal propagation from a nonvisualized distal arm vein. Small fluid collection measuring 1.1 x 1.2 x 1.1 cm at the site of recent IV insertion. US/US venous duplex UE RT IMPRESSION: No DVT demonstrated in the right upper extremity
== END 2020-08-27 16:16 | disposition home or self-care (01) ==
LOC: HO.US 16:15
PROVIDERS: PCP Internal Medicine; Visit Provider Nurse Practitioner Family
DX: M79.631 Pain in right forearm (principal)
CPT/HCPCS: 93971

== ENCOUNTER 2020-08-31 08:37 | Outpatient (REF) | payer OTHER, SELFPAY | END 2020-08-31 08:38 | disposition home or self-care (01) | LOC: HO.MDS 08:37 | PROVIDERS: Visit Provider Internal Medicine Pulmonary Disease | DX: J45.50 Severe persistent asthma, uncomplicated (principal) | CPT/HCPCS: 20610; 96372; 99212; J1040 ==

== ENCOUNTER 2020-09-17 09:52 | Outpatient (REF) | payer OTHER, SELFPAY | END 2020-09-17 09:53 | disposition home or self-care (01) | LOC: HO.MDS 09:52 | PROVIDERS: PCP Internal Medicine; Visit Provider Internal Medicine Pulmonary Disease | DX: J45.50 Severe persistent asthma, uncomplicated (principal) | CPT/HCPCS: 96372; J2357 ==

== ENCOUNTER 2020-10-01 13:51 | Outpatient (REF) | payer OTHER, SELFPAY | END 2020-10-01 13:52 | disposition home or self-care (01) | LOC: HO.MDS 13:51 | PROVIDERS: PCP Internal Medicine; Visit Provider Internal Medicine Pulmonary Disease | DX: J45.50 Severe persistent asthma, uncomplicated (principal) | CPT/HCPCS: 96372; J2357 ==

== ENCOUNTER 2020-10-15 13:37 | Outpatient (REF) | payer OTHER, SELFPAY | END 2020-10-15 13:38 | disposition home or self-care (01) | LOC: HO.MDS 13:37 | PROVIDERS: PCP Internal Medicine; Visit Provider Internal Medicine Pulmonary Disease | DX: J45.40 Moderate persistent asthma, uncomplicated (principal) | CPT/HCPCS: 96372; J2357 ==

== ENCOUNTER → 2020-10-19 12:55 | Outpatient (BNVA) | payer OTHER, SELFPAY | PROVIDERS: Visit Provider Orthopaedic Surgery | DX: M75.42 Impingement syndrome of left shoulder (principal) | CPT/HCPCS: 99212 ==

== ENCOUNTER 2020-11-09 13:22 | Outpatient (REF) | payer OTHER, SELFPAY | END 2020-11-09 13:23 | disposition home or self-care (01) | LOC: HO.MDS 13:22 | PROVIDERS: PCP Internal Medicine; Visit Provider Internal Medicine Pulmonary Disease | DX: J45.50 Severe persistent asthma, uncomplicated (principal) | CPT/HCPCS: 96372; J2357 ==

== ENCOUNTER → 2020-11-18 08:54 | Outpatient (BNVA) | payer OTHER, SELFPAY | PROVIDERS: PCP Internal Medicine; Referring Provider Internal Medicine; Visit Provider Internal Medicine Gastroenterology | DX: Z13.89 Encounter for screening for other disorder (principal) | CPT/HCPCS: 99212 ==

== ENCOUNTER 2020-11-23 13:30 | Outpatient (REF) | payer OTHER, SELFPAY | END 2020-11-23 13:31 | disposition home or self-care (01) | LOC: HO.MDS 13:30 | PROVIDERS: PCP Internal Medicine; Visit Provider Internal Medicine Pulmonary Disease | DX: J45.50 Severe persistent asthma, uncomplicated (principal) | CPT/HCPCS: 96372; J2357 ==

== ENCOUNTER 2020-11-23 14:00 | Outpatient (RCR) | payer OTHER, SELFPAY ==
--- NOTE | 2020-10-28 14:39 | MHC.PT.EP ---
[facility] [place] Office [place] Office [place] Office [address] [phone] F: [phone] F: [phone] F: [phone] F: [phone] Physical Therapy Plan of Care Date of Evaluation: Date of Surgery: N/A Diagnosis: R RTC impingement syndrome Assessment: Pt is a 50 year old female who presents to therapy with signs and symptoms consistent with R frozen shoulder. Self reported limitations include intense pain in the shoulder, inability to put on shirts, brush her teeth, wash or brush her hair, cook and inability to do any of her usual hobbies which are making jewelry/writing. Upon examination, impairments include significant limitations in shoulder ROM in all planes, weakness in shoulder, limitations in cervical rotation/lateral flexion and muscle guarding. Pt will benefit from skilled PT due to her age, general disease prognosis and eagerness to use the shoulder. Pt will like benefit from stretching of the shoulder, strengthening exercises of the shoulder and pt education about general disease prognosis. Pt will be seen 2x/week for 5 weeks and will be reassessed at 5 weeks to see if further treatment is necessary. Frequency and Duration: The patient will be seen 2x/week for 5 weeks Short Term Goals: 1. Pt will be I in HEP in 2 weeks in order to maximize benefits of therapy. 2. Pt will increase R shoulder flexion ROM to at least 90 degrees in 2 weeks in order to be able to dress herself. 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 Pt will increase R shoulder flexion MMT to >3+/5 in 5 weeks in order to be able to cook or brush her hair. 2. Pt will demonstrate SPADI < 110 in 5 weeks in order to demonstrate ability to return to PLOF. Treatment Plan: Modalities to reduce pain, spasms and effusion. Manual therapy to restore motion and function. Therapeutic exercise to improve strength and flexibility. Neuromuscular re-education for posture and balance. Therapeutic activities to return to functional activities of daily living. Electronically signed by: Nohemy Michael PT Please sign and return to therapist. Thank you for your referral.
--- NOTE | 2020-12-02 15:09 | MHC.PT.DC ---
[facility] [place] Office [place] Office [place] Office [address]sie Pat[address] [facility] [phone] F: [phone] F: [phone] F: [phone] F: [phone] Physical Therapy Discharge Report Diagnosis: R RTC impingement syndrome Date of Surgery: N/A Date of Evaluation: 10/28/20 Date of Discharge: 12/02/20 Treatments to Date: 4 Cancellations to Date: 2 No Shows to Date: 5 Discharge Status: Visit Non-compliance Discharge Summary: Pt d/c secondary to noncompliance Electronically signed by: Nohemy Michael PT Please sign and return to therapist. Thank you for your referral.
== END 2020-12-02 15:09 | disposition home or self-care (01) ==
LOC: HO.PT 14:00
PROVIDERS: PCP Internal Medicine; Visit Provider Orthopaedic Surgery
DX: M75.40 Impingement syndrome of unspecified shoulder (principal)
CPT/HCPCS: 97110; 97140; 97162

== ENCOUNTER → 2020-11-25 10:42 | Outpatient (BNVA) | payer OTHER, SELFPAY | PROVIDERS: Visit Provider Orthopaedic Surgery | DX: M24.811 Other specific joint derangements of right shoulder, not elsewhere classified (principal) | CPT/HCPCS: 99212 ==

== ENCOUNTER 2020-12-09 13:19 | Outpatient (REF) | payer OTHER, SELFPAY | END 2020-12-09 13:20 | disposition home or self-care (01) | LOC: HO.MDS 13:19 | PROVIDERS: Visit Provider Internal Medicine Pulmonary Disease | DX: J45.50 Severe persistent asthma, uncomplicated (principal) | CPT/HCPCS: 96372; J2357 ==

== ENCOUNTER 2020-12-13 10:28 | Outpatient (REF) | payer OTHER, SELFPAY ==
--- NOTE | ~2020-12-13 | MM_ITS ---
EXAMINATION: MM DIAGNOSTIC DIGITAL BREAST TOMOSYNTHESIS, BILATERAL US DIAGNOSTIC ULTRASOUND BREAST, BILATERAL CLINICAL INFORMATION: 50-year-old with bilateral areas of palpable concern mid upper outer left breast, mid lower outer right breast and right axilla for approximately 2 months. Tenderness on right. Remote history reduction mammoplasty, 2008. The lifetime risk of breast cancer based on the Tyrer-Cuzick Model is 8%. COMPARISON: Mammography: 05/03/2020, 10/15/2018, 10/02/2017, 09/05/2016 TECHNIQUE: Digital breast tomosynthesis is performed in both the craniocaudal and mediolateral oblique views along with computer-aided detection (CAD). Synthesized 2D images are generated from the tomosynthesis. Additional right MLO view is provided. Ultrasound left and right breast is targeted to the areas of clinical concern. Patient is able to point to the areas of concern at time of imaging. Grayscale imaging and color Doppler are performed without and with harmonics. FINDINGS: There are scattered areas of fibroglandular density (ACR BI-RADS breast composition Category b). Breast parenchymal pattern is similar to prior studies. There is minor scarring consistent with the prior bilateral reduction mammoplasty. There is no interval mass or architectural abnormality or developing density. No abnormal calcifications. There is no skin thickening or coarsening of the Sam's ligaments. The axilla are unremarkable. Targeted ultrasound left breast demonstrates a benign cyst at site of palpable concern 2:00 position mid depth measuring 0.6 x 4.3 cm. There is no solid mass or architectural abnormality or focal duct ectasia. No skin thickening or edema tracking in soft tissue planes. Targeted ultrasound right breast demonstrates smooth tubular structure just beneath the skin at site of clinical concern inferior lateral right breast 8:00 position at margin of breast and chest wall measuring approximately 5 cm in length. There is no compressibility or solid component or associated color flow. Differential considerations include thrombosed superficial vein (Mondor's syndrome) or mild focal duct ectasia. Otherwise, there is no cystic or solid mass. No skin thickening or edema tracking in soft tissue plane. Additional imaging right axilla demonstrates no lymphadenopathy. Results are discussed with the patient at time of visit. [facility] to call report to PCP. MM/MM tomosynthesis diagnostic BI IMPRESSION: 1. No mammographic evidence of malignancy. No significant changes from prior studies. 2. Right ultrasound: 5 cm long avascular anechoic tubular noncompressible structure beneath skin in area of palpable concern and tenderness. Differential considerations include thrombosed superficial vein (Mondor's syndrome) or mild focal duct ectasia. No right axillary adenopathy. 3. Left ultrasound: Small cyst near side of palpable concern 0.6 cm. ASSESSMENT: BI-RADS 2: Benign RECOMMENDATION: 1. Patient should be managed as needed based on the clinical impression. Right breast symptoms could be managed with warm compresses and analgesics/ibuprofen. 2. Otherwise, routine annual screening mammography. This patient's information was entered into a reminder system with a target due date for their next mammogram.
== END 2020-12-13 10:29 | disposition home or self-care (01) ==
LOC: HO.MAMMO 10:28
PROVIDERS: Visit Provider Nurse Practitioner Family
DX: N63.25 Unspecified lump in the left breast, overlapping quadrants (principal); N63.15 Unspecified lump in the right breast, overlapping quadrants; N63.31 Unspecified lump in axillary tail of the right breast
CPT/HCPCS: 76642; 77062; 77066

== ENCOUNTER 2020-12-24 10:56 | Outpatient (REF) | payer OTHER, SELFPAY | END 2020-12-24 10:57 | disposition home or self-care (01) | LOC: HO.MDS 10:56 | PROVIDERS: Visit Provider Internal Medicine Pulmonary Disease | DX: J45.50 Severe persistent asthma, uncomplicated (principal) | CPT/HCPCS: 96372; J2357 ==

== ENCOUNTER 2021-01-07 09:33 | Outpatient (REF) | payer OTHER, SELFPAY | END 2021-01-07 09:34 | disposition home or self-care (01) | LOC: HO.MDS 09:33 | PROVIDERS: Visit Provider Internal Medicine Pulmonary Disease | DX: J45.50 Severe persistent asthma, uncomplicated (principal) | CPT/HCPCS: 96372; J2357 ==

== ENCOUNTER → 2021-01-17 09:44 | Outpatient (BNVA) | payer OTHER, SELFPAY | PROVIDERS: PCP Internal Medicine; Visit Provider Orthopaedic Surgery | DX: M75.121 Complete rotator cuff tear or rupture of right shoulder, not specified as traumatic (principal) | CPT/HCPCS: 99212 ==

== ENCOUNTER 2021-01-25 09:29 | Outpatient (REF) | payer OTHER, SELFPAY | END 2021-01-25 09:30 | disposition home or self-care (01) | LOC: HO.MDS 09:29 | PROVIDERS: Visit Provider Internal Medicine Pulmonary Disease | DX: J45.50 Severe persistent asthma, uncomplicated (principal) | CPT/HCPCS: 96372; J2357 ==

== ENCOUNTER → 2021-02-02 09:21 | Outpatient (BNVA) | payer OTHER, SELFPAY | PROVIDERS: Visit Provider Obstetrics & Gynecology ==

== ENCOUNTER → 2021-02-03 15:07 | Outpatient (BNVA) | payer OTHER, SELFPAY | PROVIDERS: PCP Internal Medicine; Referring Provider Nurse Practitioner Family; Visit Provider Internal Medicine Cardiovascular Disease | DX: Z01.810 Encounter for preprocedural cardiovascular examination (principal); I10 Essential (primary) hypertension | CPT/HCPCS: 99202 ==

== ENCOUNTER → 2021-02-07 08:32 | Outpatient (BNVA) | payer OTHER, SELFPAY | PROVIDERS: Visit Provider Physician Assistant | DX: M75.121 Complete rotator cuff tear or rupture of right shoulder, not specified as traumatic (principal); I10 Essential (primary) hypertension | CPT/HCPCS: 99212 ==

== ENCOUNTER 2021-02-07 09:30 | Outpatient (REF) | payer OTHER, SELFPAY ==
[2021-02-07 10:08] LABS: Hematocrit 45.6 % (37.0-47.0); Hemoglobin 14.9 g/dl (12.0-16.0); Mean Corpuscular HGB Conc 32.7 g/dl (31.0-35.0); Mean Corpuscular Hemoglobin 30.1 pg (27.0-33.0); Mean Corpuscular Volume 92.1 fL (80.0-98.0); Mean Platelet Volume 10.6 fL (9.4-12.3); Platelet Count 320 X10*3/uL (160-400); Red Blood Count 4.95 X10*6/uL (4.20-5.50); Red Cell Distribution Width 12.9 % (11.0-16.0); White Blood Count 8.8 X10*3/uL (4.8-10.8)
[2021-02-07 10:19] LABS: Prothrombin Time 11.4 SEC (9.9-13.0)
[2021-02-07 10:22] LABS: Partial Thromboplastin Time 35.7 SEC (24.1-38.0)
[2021-02-07 10:40] LABS: Anion Gap 16 (12-20); Blood Urea Nitrogen 22 mg/dL (9-16); Calcium 10.3 mg/dL (8.4-10.2); Carbon Dioxide 25 mmol/L (22-29); Chloride 103 mmol/L (96-108); Estimated Glomerular Filt Rate > 60; Glucose Random 91 mg/dL (60-115); Potassium 4.6 mmol/L (3.3-5.1); Sodium 139 mmol/L (135-145)
[2021-02-07 11:03] LABS: Thyroid Stimulating Hormone 23.74 uIU/mL (0.32-4.0)
== END 2021-02-07 09:31 | disposition home or self-care (01) ==
LOC: HO.10HDL 09:30
PROVIDERS: Visit Provider Nurse Practitioner Family
DX: Z01.818 Encounter for other preprocedural examination (principal)
CPT/HCPCS: 36415; 80048; 84443; 85027; 85610; 85730

== ENCOUNTER 2021-02-08 09:25 | Day surgery (SDC) | payer OTHER, SELFPAY ==
[2021-02-02 10:30] VITALS: BP 143/89; PULSE 87; RESP 20; O2SAT 99; BMI 39.8
--- NOTE | 2021-02-02 10:45 | HO.ANESPROP2 ---
Documented by User: Cristy Gunderson NP 02/07/21 10:36 HPI - Anesthesia Eval Consult details Narrative: 50yo F for Right Arthroscopic Rotator Cuff Repair PCP referred to cardiology for clearance d/t new RBBB Cardiac cleared - normal EKG upon review COUNTS INCLUDE 234 BEDS AT THE [facility] Active Problems Active Problems: All Active Problems (Updated 02/02/21 @ 10:24 by Ginger Valenzuela RN) Diarrhea (Acute) Tendinopathy of left rotator cuff (Acute) Abdominal bloating (Acute) Fall (Acute) Lateral epicondylitis of both elbows (Acute) Rotator cuff impingement syndrome (Acute) Rash (Acute) Rotator cuff impingement syndrome of left shoulder (Acute) Chronic constipation (Acute) Lump of axillary tail of right breast (Acute) Lump of right breast (Acute) Lump of left breast (Acute) Internal derangement of right shoulder (Acute) Complete rotator cuff tear or rupture of right shoulder, not specified as traumatic (Acute) Preoperative clearance (Acute) Abnormal finding on EKG (Acute) Right shoulder pain (Acute) Well woman exam (Acute) Right forearm pain (Acute) Obesity (BMI 30-39.9) (Acute) Hypercholesterolemia (Acute) Vitamin D deficiency (Acute) Multinodular thyroid (Acute) Pancreatic cyst (Acute) Hypertension (Acute) Asthma (Acute) Esophageal spasm (Acute) Fibromyalgia (Acute) Past Medical History Medical History Allergic rhinitis Asthma Colitis Constipation Esophageal spasm Fibromyalgia GERD (gastroesophageal reflux disease) History of migraine headaches History of TIA (transient ischemic attack) Hx of flexible sigmoidoscopy Hypercholesterolemia Hypertension Hypertensive urgency Hypothyroidism IBS (irritable bowel syndrome) Kidney stones Multinodular thyroid Obesity (BMI 30-39.9) Ovarian cyst Pancreatic cyst Rectal bleeding Right forearm pain Sciatic nerve pain Thyroid nodule Vitamin D deficiency Family History Family History Father Family history of high blood pressure History of high cholesterol Mother History of diabetes mellitus Family history of high blood pressure Family history of asthma History of fibromyalgia Liver disease Family history of problems with anesthesia: No Surgical History Surgical History H/O lithotripsy H/O: hysterectomy History of breast lump/mass excision History of cholecystectomy (~2003) History of colonoscopy (~11/16/19) History of esophagogastroduodenoscopy (EGD) History of kidney surgery History of thyroidectomy (~11/2018) Hx of appendectomy Hx of bilateral breast reduction surgery Hx of eye surgery Hx of hemorrhoidectomy Hx of tubal ligation History of Problems with Anesthesia: No Social History Social History Household Members: None Housing: House Are you a primary physician assistant primary care to a significant other at home: No Do you presently have visiting nurse or other home services: No Alcohol intake: never Patient Tobacco Use Status: Former Tobacco user Quit Date: 2013 Tobacco use type: Cigarette Years Smoked: 3 e-Cigarette/Vaping Use: Never Used Second Hand Smoke Exposure: No Use of substances other than those prescribed or required for medical reasons: Yes Substance Use Type: Marijuana Substance Use Type Other:: edibles/smokes occasionally-advised to hold Substance Use Frequency: Occasionally Have you been hit, kicked, punched, or otherwise hurt by someone within the past year? If so, by whom?: No Are you DNR?: No Advance Directives: No Advance Directives Information Provided: Yes (informational brochure given per patient request) Advance Directives on File: No Recently lost weight without trying: No Eating poorly because of decreased appetite: No Nutrition Risks: No Nutritional Risk Patient : No FDLMP: hysterectomy Poor oral hygiene: No service: No Current occupational status: disabled Current occupation: right handed Narrative Narrative: No recent illness No CP/SOB with ADL/grocery shopping Meds Allergies Allergy/AdvReac Type Severity Reaction Status Date / Time pineapple [PINEAPPLE] Allergy Severe ANAPHYLAXIS Verified 02/07/21 08:38 adhesive tape Allergy Intermediate Blister Verified 02/07/21 08:38 Iodinated Contrast Media Allergy Intermediate SOB,RASH Verified 02/07/21 08:38 [IV Dye, Iodine Containing] levofloxacin [From Levaquin] Allergy Intermediate swelling/ra Verified 02/07/21 08:38 sh oxycodone [From Percocet] Allergy Intermediate rash/SOB Verified 02/07/21 08:38 aspirin [ASA] AdvReac Mild UPSET Verified 02/07/21 08:38 STOMACH Home Medications Medication Instructions Recorded Confirmed Last Taken Type albuterol sulfate 90 mcg/actuation 2 puff INHALATION Q4-6H PRN 12/15/19 02/03/21 02/08/21 History aerosol inhaler (ProAir HFA) metoprolol tartrate 50 mg tablet 50 mg PO BEDTIME 02/01/21 02/03/21 02/08/21 History metoprolol tartrate 50 mg tablet 100 mg PO QAM 02/01/21 02/03/21 Unknown History polyethylene glycol 3350 17 17 g PO Q2D 02/02/21 02/03/21 Unknown History gram/dose oral powder (Miralax) Exam Exam Date and Time: February 02, 2021 1045 Height,Weight and Vital Signs: Height 5 ft 5 in Weight 108.5 kg Last Vital Signs Pulse 87 02/02/21 10:30 Resp 20 02/02/21 10:30 BP 143/89 H 02/02/21 10:30 Pulse Ox 99 02/02/21 10:30 Pertinent Lab Results Pertinent Lab Results: Laboratory Tests 08/11/20 02/07/21 06:10 09:34 WBC 8.8 Hgb 14.9 Hct 45.6 Plt Count 320 Sodium 139 Potassium 3.7 Chloride 108 Carbon Dioxide 25 BUN 15 D Creatinine 0.72 Narrative Narrative: EKG 01/2021 NSR ?RBBB Airway TM Dist: >3cm Neck ROM: Full Loose/Missing/Broken Teeth: No Heart: RRR Lungs: CTAB Assessment and Plan Assessment Anesthesia Assessment: Anesthesia Plan Discussed and PAT Visit Final Anesthetic Review Family History of Problems with Anesthesia: No History of Problems with Anesthesia: No Documented by User: Gerry Regalado MD 02/08/21 14:49 COUNTS INCLUDE 234 BEDS AT THE [facility] Past Medical History Medical History Allergic rhinitis Asthma Colitis Constipation Esophageal spasm Fibromyalgia GERD (gastroesophageal reflux disease) History of migraine headaches History of TIA (transient ischemic attack) Hx of flexible sigmoidoscopy Hypercholesterolemia Hypertension Hypertensive urgency Hypothyroidism IBS (irritable bowel syndrome) Kidney stones Multinodular thyroid Obesity (BMI 30-39.9) Ovarian cyst Pancreatic cyst Rectal bleeding Right forearm pain Sciatic nerve pain Thyroid nodule Vitamin D deficiency Family History Family History Father Family history of high blood pressure History of high cholesterol Mother History of diabetes mellitus Family history of high blood pressure Family history of asthma History of fibromyalgia Liver disease Surgical History Surgical History H/O lithotripsy H/O: hysterectomy History of breast lump/mass excision History of cholecystectomy (~2003) History of colonoscopy (~11/16/19) History of esophagogastroduodenoscopy (EGD) History of kidney surgery History of thyroidectomy (~11/2018) Hx of appendectomy Hx of bilateral breast reduction surgery Hx of eye surgery Hx of hemorrhoidectomy Hx of tubal ligation Social History Social History Household Members: None Housing: House Are you a primary physician assistant primary care to a significant other at home: No Do you presently have visiting nurse or other home services: No Alcohol intake: never Patient Tobacco Use Status: Former Tobacco user Quit Date: 2013 Tobacco use type: Cigarette Years Smoked: 3 e-Cigarette/Vaping Use: Never Used Second Hand Smoke Exposure: No Use of substances other than those prescribed or required for medical reasons: Yes Substance Use Type: Marijuana Substance Use Type Other:: edibles/smokes occasionally-advised to hold Substance Use Frequency: Occasionally Have you been hit, kicked, punched, or otherwise hurt by someone within the past year? If so, by whom?: No Are you DNR?: No Advance Directives: No Advance Directives Information Provided: Yes (informational brochure given per patient request) Advance Directives on File: No Recently lost weight without trying: No Eating poorly because of decreased appetite: No Nutrition Risks: No Nutritional Risk Patient : No FDLMP: hysterectomy Poor oral hygiene: No service: No Current occupational status: disabled Current occupation: right handed Meds Allergies Allergy/AdvReac Type Severity Reaction Status Date / Time pineapple [PINEAPPLE] Allergy Severe ANAPHYLAXIS Verified 02/07/21 08:38 adhesive tape Allergy Intermediate Blister Verified 02/07/21 08:38 Iodinated Contrast Media Allergy Intermediate SOB,RASH Verified 02/07/21 08:38 [IV Dye, Iodine Containing] levofloxacin [From Levaquin] Allergy Intermediate swelling/ra Verified 02/07/21 08:38 sh oxycodone [From Percocet] Allergy Intermediate rash/SOB Verified 02/07/21 08:38 aspirin [ASA] AdvReac Mild UPSET Verified 02/07/21 08:38 STOMACH Home Medications Medication Instructions Recorded Confirmed Last Taken Type albuterol sulfate 90 mcg/actuation 2 puff INHALATION Q4-6H PRN 12/15/19 02/03/21 02/08/21 History aerosol inhaler (ProAir HFA) metoprolol tartrate 50 mg tablet 50 mg PO BEDTIME 02/01/21 02/03/21 02/08/21 History metoprolol tartrate 50 mg tablet 100 mg PO QAM 02/01/21 02/03/21 Unknown History polyethylene glycol 3350 17 17 g PO Q2D 02/02/21 02/03/21 Unknown History gram/dose oral powder (Miralax) Exam Airway Mallampati Class: I Assessment and Plan Final Anesthetic Review NPO: Yes ASA Class: III Final Preanesthetic Review: No Changes in Pt Med Stat, Meds/Allgs Chart Reviewed, Consent Obtained/Reviewed and Anes Risks/Benef Reviewed Patient Risk: Intermediate Procedure Risk: Intermediate Anesthetic Plan Anesthetic Plan: GA and Regional Block Disposition: Standard PACU
[2021-02-08] VITALS (7 sets, daily range): BP systolic 133–147; BP diastolic 76–101; PULSE 72–81; RESP 15–18; TEMP 36.1–36.6; O2SAT 95–99
[2021-02-08] MEDS: Lactated Ringers 1,000 ML 100 ML IVCONT (10:30)
--- NOTE | 2021-02-08 12:40 | MHC.SHP ---
Pre-Procedural Eval Section A Date of Service: 02/08/21 The patient is an INPATIENT: No Changes since office visit: Yes Patient answered all questions; No Cold of Flu in the past 2 weeks, No New Medical Problems and No Changes in Medication The History & Physical has been completed within 30 days and I have reviewed it.: Yes Section B Chief Complaint: rotator cuff repair Allergies: Allergies Allergy/AdvReac Type Severity Reaction Status Date / Time pineapple [PINEAPPLE] Allergy Severe ANAPHYLAXIS Verified 02/07/21 08:38 adhesive tape Allergy Intermediate Blister Verified 02/07/21 08:38 Iodinated Contrast Media Allergy Intermediate SOB,RASH Verified 02/07/21 08:38 [IV Dye, Iodine Containing] levofloxacin [From Levaquin] Allergy Intermediate swelling/ra Verified 02/07/21 08:38 sh oxycodone [From Percocet] Allergy Intermediate rash/SOB Verified 02/07/21 08:38 aspirin [ASA] AdvReac Mild UPSET Verified 02/07/21 08:38 STOMACH Plan I have reviewed the history and physical and performed a pertinent physical examination on my patient. No changes have occurred unless specified.
--- NOTE | 2021-02-08 15:05 | PM.OP ---
Brief Operative Note Date of Service: 02/08/21 Pre-op diagnosis: right rtc cuff tear Post-op diagnosis: other (1) right retracted rotator cuff tear 2) SLAP tear 3) sub acromial bursitis) Procedure: biceps tenodesis circumerential labral debridement sub acromial bursectomy Implants: Mith and Nephw 5.0 knotless Surgeon: Giovani Stein MD Anesthesia: GETA and regional Was an Insurance Processing Clerk used for this Procedure?: Yes Insurance Processing Clerk: Gilmer Yarbrough Estimated blood loss (mL): 20 IV fluids (mL): 1,000 Pathology: other Condition: stable Disposition: PACU
--- NOTE | 2021-02-08 15:12 | P.OP_ITS ---
Operative Note Operative Note Date of Service: 02/08/21 Narrative: Pre-op diagnosis: right rtc cuff tear Post-op diagnosis: other (1) right retracted rotator cuff tear 2) SLAP tear 3) sub acromial bursitis) Procedure: biceps tenodesis circumerential labral debridement sub acromial bursectomy Implants: Mith and Nephw 5.0 knotless Surgeon: Giovani Stein MD Anesthesia: GETA and regional Was an Manager Credit Risk used for this Procedure?: Yes Manager Credit Risk: Gilmer Yarbrough Estimated blood loss (mL): 20 IV fluids (mL): 1,000 Pathology: other Condition: stable Disposition: PACU Procedure in detail: Patient was brought to the operative room placed in the beach chair position. All bony prominences were well padded she was prepped and draped in standard sterile fashion. Time-out was called to identify proper site proper procedure and proper surgeon IV antibiotics per weight were administered. I began by making a posterolateral stab incision and placed my blunt trocar atraumatically into the glenohumeral joint. I insufflated the joint and established an outside in anterosuperior portal. Immediately evident was a tear at the base of his a biceps attachment. This comprised the superior labrum and involved more than 50% of the tendon. The tendon quality was also poor and the decision was made to tenodese. Two FiberTapes were placed into the biceps tendon prior to tenotomy and then the tendon was attached adjacent to the bicipital groove proximally and just proximal to the subscapularis insertion. A 5.0 and Nephew knotless helical coil was used and I had excellent fixation of the biceps. The subscapularis was examined and intact. I used a shaver to circumferentially debride the labrum which was torn superiorly from approximately 06:00 o'clock to the 1 o'clock position. Once this was done I examined the cuff. There was a supraspinatus tear withsome posterior suff int act. I then entered the subacromial space and established an anterolateral portal. She had florid bursitis which was removed with a shaver and a cautery wand. Anteriorly the supraspinatus was retracted. Once I debrided the scar tissue and bursa I was left with a large gap. The torn tendon was of poor quality with deandre atrophy and retracted to the level of the glenoid. The tear was not mobile. I tried to release anteriorly and medially and posteriorly but I was left with wisps of tissue and not near enough to repair. The teres and the posterior portion of the infraspinatus was intact. The tear was unrepairable. I therefore removed all instrumentation and took my final photographs. Portals were closed with nylon patient was placed into a abduction sling extubated brought to recovery room stable condition there were no known complications.
== END 2021-02-08 17:15 | disposition home or self-care (01) ==
PROVIDERS: Visit Provider Orthopaedic Surgery
PROC: (CPT 29827; principal; 2021-02-08 13:10)
DX: M75.121 Complete rotator cuff tear or rupture of right shoulder, not specified as traumatic (principal); M75.51 Bursitis of right shoulder; S43.431A Superior glenoid labrum lesion of right shoulder, initial encounter; X58.XXXA Exposure to other specified factors, initial encounter; Y93.9 Activity, unspecified; Y92.9 Unspecified place or not applicable; Y99.9 Unspecified external cause status; J45.909 Unspecified asthma, uncomplicated; M79.7 Fibromyalgia; I25.2 Old myocardial infarction; I10 Essential (primary) hypertension; E55.9 Vitamin D deficiency, unspecified; K86.2 Cyst of pancreas; Z86.73 Personal history of transient ischemic attack (TIA), and cerebral infarction without residual deficits; Z88.8 Allergy status to other drugs, medicaments and biological substances; Z91.041 Radiographic dye allergy status
CPT/HCPCS: 29827; 29828; 29807; C1713; J0171; J0690; J1100; J2250; J2405; J3010

== ENCOUNTER → 2021-02-14 09:00 | Outpatient (BNVA) | payer OTHER, SELFPAY | PROVIDERS: PCP Internal Medicine; Visit Provider Physician Assistant | DX: M75.121 Complete rotator cuff tear or rupture of right shoulder, not specified as traumatic (principal) | CPT/HCPCS: 99212 ==

== ENCOUNTER → 2021-03-14 12:40 | Outpatient (BNVA) | payer OTHER, SELFPAY | PROVIDERS: PCP Internal Medicine; Visit Provider Physician Assistant | DX: Z47.89 Encounter for other orthopedic aftercare (principal) | CPT/HCPCS: 99212 ==

== ENCOUNTER → 2021-03-21 10:51 | Outpatient (BNVA) | payer OTHER, SELFPAY | PROVIDERS: Referring Provider Internal Medicine; Visit Provider Internal Medicine Gastroenterology | DX: K22.4 Dyskinesia of esophagus (principal) | CPT/HCPCS: 99212 ==

== ENCOUNTER 2021-03-25 10:43 | Outpatient (REF) | payer OTHER, SELFPAY ==
[2021-03-25 12:26] LABS: CDiff Gene PCR NEGATIVE (Negative)
== END 2021-03-25 10:44 | disposition home or self-care (01) ==
LOC: HO.LNP 10:43
PROVIDERS: Visit Provider Internal Medicine Gastroenterology
DX: R19.7 Diarrhea, unspecified (principal)
CPT/HCPCS: 87493

== ENCOUNTER → 2021-03-30 13:05 | Outpatient (BNVA) | payer OTHER, SELFPAY | PROVIDERS: PCP Internal Medicine; Visit Provider Internal Medicine | DX: E89.0 Postprocedural hypothyroidism (principal); E55.9 Vitamin D deficiency, unspecified | CPT/HCPCS: 99212 ==

== ENCOUNTER → 2021-04-04 13:04 | Outpatient (BNVA) | payer OTHER, SELFPAY | PROVIDERS: PCP Internal Medicine; Visit Provider Nurse Practitioner Family | DX: M79.7 Fibromyalgia (principal); M67.912 Unspecified disorder of synovium and tendon, left shoulder; M75.121 Complete rotator cuff tear or rupture of right shoulder, not specified as traumatic | CPT/HCPCS: 99212 ==

== ENCOUNTER 2021-04-15 10:41 | Outpatient (REF) | payer OTHER, SELFPAY ==
[2021-04-15 12:40] LABS: Free T4 (Free Thyroxine) 1.15 ng/dL (0.71-1.85); Thyroid Stimulating Hormone 2.26 uIU/mL (0.32-4.0)
== END 2021-04-15 10:42 | disposition home or self-care (01) ==
LOC: HO.MDS 10:41
PROVIDERS: Absent Provider Internal Medicine; PCP Internal Medicine; Visit Provider Internal Medicine Pulmonary Disease
DX: J45.50 Severe persistent asthma, uncomplicated (principal); E04.2 Nontoxic multinodular goiter; E89.0 Postprocedural hypothyroidism; E55.9 Vitamin D deficiency, unspecified
CPT/HCPCS: 36415; 82306; 84439; 84443; 96372; J2357

== ENCOUNTER → 2021-04-25 12:43 | Outpatient (BNVA) | payer OTHER, SELFPAY | PROVIDERS: PCP Internal Medicine; Visit Provider Physician Assistant | DX: Z47.89 Encounter for other orthopedic aftercare (principal); M75.02 Adhesive capsulitis of left shoulder | CPT/HCPCS: 99212 ==

== ENCOUNTER 2021-05-02 12:49 | Outpatient (REF) | payer OTHER, SELFPAY | END 2021-05-02 12:50 | disposition home or self-care (01) | LOC: HO.MDS 12:49 | PROVIDERS: Visit Provider Internal Medicine Pulmonary Disease | DX: J45.50 Severe persistent asthma, uncomplicated (principal) | CPT/HCPCS: 96372; J2357 ==

== ENCOUNTER → 2021-05-23 12:46 | Outpatient (BNVA) | payer OTHER, SELFPAY | PROVIDERS: PCP Internal Medicine; Visit Provider Physician Assistant | DX: M75.02 Adhesive capsulitis of left shoulder (principal); M67.912 Unspecified disorder of synovium and tendon, left shoulder | CPT/HCPCS: 99212 ==

== ENCOUNTER 2021-05-30 13:54 | Outpatient (REF) | payer OTHER, SELFPAY | END 2021-05-30 13:55 | disposition home or self-care (01) | LOC: HO.MDS 13:54 | PROVIDERS: Visit Provider Internal Medicine Pulmonary Disease | DX: J45.50 Severe persistent asthma, uncomplicated (principal) | CPT/HCPCS: J2357 ==

== ENCOUNTER 2021-06-20 12:18 | Outpatient (REF) | payer OTHER, SELFPAY | END 2021-06-20 12:19 | disposition home or self-care (01) | LOC: HO.MDS 12:18 | PROVIDERS: Visit Provider Internal Medicine Pulmonary Disease | DX: J45.50 Severe persistent asthma, uncomplicated (principal) | CPT/HCPCS: 96372; J2357 ==

== ENCOUNTER 2021-06-23 14:00 | Outpatient (RCR) | payer OTHER, SELFPAY ==
--- NOTE | 2021-02-14 15:21 | MHC.PT.EP ---
[facility] [place] Office [place] Office [place] Office [address] Elsie Patino [address] [phone] F: [phone] F: [phone] F: [phone] F: [phone] Physical Therapy Plan of Care Date of Evaluation: Date of Surgery: 02/08/21 Diagnosis: S/P RIGHT BICEPS TENODESIS, CIRCUMFERENTIAL LABRAL DEBRIDEMENT, SUB-ACROMIAL BURSECTOMY Assessment: 50 YO FEMALE REF TO PT S/P RT SH BICEPS TENODESIS ON 02/08/21; Pt IS Rt HAND DOMINANT AND PRESENTS TODAY IN HER Rt SH IMMOBILIZER. SHE RATED Rt SH PAIN 10/10 TODAY- SHE IS LIMITED W ADLs- Pt HAS POST OP FINDINGS OF LIMITED ROM Rt SH/ ELBOW, DECR STRENGTH, DECR POSTURE AWARENESS AND SCAP INSTAB, AND Rt SH PAIN. Pt IS A GOOD PT CANDIDATE TO GUIDE HER IN REHAB S/P Rt BICEPS TENODESIS AND EXISTING Rt SUPRASPINATUS TEAR. Frequency and Duration: The patient will be seen 2 x WK x 8 WKS Short Term Goals: Pt'S Rt SH PAIN DECR TO 5/10 IN 2 WKS Pt INDEP SELF CORRECT POSTURE IN 2 WKS ACHIEVE GRADUAL CHURCH OF Rt SH / ELBOW PROM IN 3 WKS Pt DEMON ADEQUATE SCAPULAR FUNCTION IN 2 WKS Skilled Nursing Goals: Pt DEMON FULL AROM Rt SH AND ELBOW AND INDEP W HEP/ PROGR THER EXER IN 8 WKS Pt RESUME REG ADLs TRINH'D IN 8 WKS Pt DEMON INCR STRENGTH Rt SH BY 1/2- 1 GRADE IN 8 WKS Treatment Plan: Modalities to reduce pain, spasms and effusion. Manual therapy to restore motion and function. Therapeutic exercise to improve strength and flexibility. Neuromuscular re-education for posture and balance. Therapeutic activities to return to functional activities of daily living. Electronically signed by: Magy De La TorrePT Please sign and return to therapist. Thank you for your referral.
--- NOTE | 2021-08-08 07:59 | MHC.PT.DC ---
[facility] [place] Office [place] Office [place] Office [address] Elsie Patino [address] [phone] F: [phone] F: [phone] F: [phone] F: [phone] Physical Therapy Discharge Report Diagnosis: S/P RIGHT BICEPS TENODESIS, CIRCUMFERENTIAL LABRAL DEBRIDEMENT, SUB-ACROMIAL BURSECTOMY Date of Surgery: 02/08/21 Date of Evaluation: 02/14/21 Date of Discharge: 08/08/21 Treatments to Date: 12 Cancellations to Date: 11 No Shows to Date: 7 Discharge Status: Improved Function Independent with HEP Patient Elected to Stop Discharge Summary: Pt HAS MADE GAINS IN PT (EVAL 02/14/21) S/P Rt SH SURGERY - SHE HAS A VERY THOROUGH HEP, AT LAST APPT, 45 DAYS AGO, SHE WAS OBSERVED TO HAVE ACCEPTABLE FUNCTIONAL MOBILITY IN RIGHT SHOULDER. AT LAST APPT, THERAPIST OBTAINED 156* Rt SH FLEX. Electronically signed by: Magy De La Torre,PT Please sign and return to therapist. Thank you for your referral.
== END 2021-08-08 08:00 | disposition home or self-care (01) ==
LOC: HO.PT 14:00
PROVIDERS: Visit Provider Physician Assistant
DX: M75.121 Complete rotator cuff tear or rupture of right shoulder, not specified as traumatic (principal)
CPT/HCPCS: 97110; 97140; 97162

== ENCOUNTER → 2021-06-30 10:46 | Outpatient (BNVA) | payer OTHER, SELFPAY | PROVIDERS: PCP Internal Medicine; Visit Provider Internal Medicine Gastroenterology | DX: K59.09 Other constipation (principal); K86.2 Cyst of pancreas; K22.4 Dyskinesia of esophagus; E55.9 Vitamin D deficiency, unspecified; R19.7 Diarrhea, unspecified | CPT/HCPCS: 99212 ==

== ENCOUNTER 2021-07-04 12:02 | Outpatient (REF) | payer OTHER, SELFPAY ==
[2021-07-04 11:27] LABS: Free T4 (Free Thyroxine) 1.01 ng/dL (0.71-1.85); Thyroid Stimulating Hormone 6.77 uIU/mL (0.32-4.0); Vitamin D 25-OH Total 40.8 ng/mL (>30)
== END 2021-07-04 12:03 | disposition home or self-care (01) ==
LOC: HO.MDS 12:02
PROVIDERS: Internal Medicine; Visit Provider Internal Medicine Pulmonary Disease
DX: J45.50 Severe persistent asthma, uncomplicated (principal); E04.2 Nontoxic multinodular goiter; E89.0 Postprocedural hypothyroidism; E55.9 Vitamin D deficiency, unspecified; M75.02 Adhesive capsulitis of left shoulder; M67.912 Unspecified disorder of synovium and tendon, left shoulder; I10 Essential (primary) hypertension; Z87.891 Personal history of nicotine dependence; Z47.1 Aftercare following joint replacement surgery; Z88.6 Allergy status to analgesic agent; Z91.041 Radiographic dye allergy status; Z88.8 Allergy status to other drugs, medicaments and biological substances; Z91.018 Allergy to other foods; Z79.899 Other long term (current) drug therapy
CPT/HCPCS: 36415; 82306; 84439; 84443; 96372; 99212; J2357

== ENCOUNTER → 2021-10-28 09:51 | Outpatient (BNVA) | payer OTHER, SELFPAY | PROVIDERS: PCP Internal Medicine; Visit Provider Internal Medicine Pulmonary Disease | DX: J45.50 Severe persistent asthma, uncomplicated (principal); Z91.09 Other allergy status, other than to drugs and biological substances | CPT/HCPCS: 99212 ==

== ENCOUNTER 2021-11-09 09:00 | Outpatient (REF) | payer OTHER, SELFPAY | END 2021-11-09 09:01 | disposition home or self-care (01) | LOC: HO.MDS 09:00 | PROVIDERS: Visit Provider Internal Medicine Pulmonary Disease | DX: J45.50 Severe persistent asthma, uncomplicated (principal) | CPT/HCPCS: 96372; J2357 ==

== ENCOUNTER → 2021-11-14 08:59 | Outpatient (BNVA) | payer OTHER, SELFPAY | PROVIDERS: PCP Internal Medicine; Visit Provider Orthopaedic Surgery | DX: M75.101 Unspecified rotator cuff tear or rupture of right shoulder, not specified as traumatic (principal) | CPT/HCPCS: 99212 ==

== ENCOUNTER 2021-11-23 13:11 | Outpatient (REF) | payer OTHER, SELFPAY | END 2021-11-23 13:12 | disposition home or self-care (01) | LOC: HO.MDS 13:11 | PROVIDERS: Visit Provider Internal Medicine Pulmonary Disease | DX: J45.50 Severe persistent asthma, uncomplicated (principal) | CPT/HCPCS: 96372; J2357 ==

== ENCOUNTER 2021-12-09 09:45 | Outpatient (REF) | payer OTHER, SELFPAY | END 2021-12-09 09:46 | disposition home or self-care (01) | LOC: HO.MDS 09:45 | PROVIDERS: Visit Provider Internal Medicine Pulmonary Disease | DX: J45.50 Severe persistent asthma, uncomplicated (principal) | CPT/HCPCS: 96372; J2357 ==

== ENCOUNTER 2021-12-20 09:07 | Outpatient (REF) | payer OTHER, SELFPAY ==
--- NOTE | ~2021-12-20 | MM_ITS ---
EXAMINATION: MM SCREENING DIGITAL BREAST TOMOSYNTHESIS, BILATERAL CLINICAL INFORMATION: Screening. Asymptomatic. Status post breast reduction surgery The lifetime risk of breast cancer based on the Tyrer-Cuzick Model is 8.2%. COMPARISON: Mammography: December 13, 2020 and studies dating back to August 05, 2015 TECHNIQUE: Digital breast tomosynthesis is performed in both the craniocaudal and mediolateral oblique views along with computer-aided detection (CAD). Synthesized 2D images are generated from the tomosynthesis. FINDINGS: The breasts are heterogeneously dense, which may obscure small masses (ACR BI-RADS breast composition Category c). There are no significant masses, abnormal calcifications, or other abnormalities. MM/MM tomosynthesis screening BI IMPRESSION: No significant changes from prior exam. ASSESSMENT: BI-RADS 1: Negative RECOMMENDATION: Routine annual mammography screening. This patient's information was entered into a reminder system with a target due date for their next mammogram.
== END 2021-12-20 09:08 | disposition home or self-care (01) ==
LOC: HO.MAMMO 09:07
PROVIDERS: PCP Internal Medicine; Visit Provider Internal Medicine
DX: Z12.31 Encounter for screening mammogram for malignant neoplasm of breast (principal)
CPT/HCPCS: 77063; 77067

== ENCOUNTER 2021-12-21 09:00 | Outpatient (RCR) | payer OTHER, SELFPAY ==
--- NOTE | 2021-12-21 12:53 | MHC.PT.EP ---
[facility] [place] Office [place] Office [place] Office [address] Elsie Patino [address] [phone] F: [phone] F: [phone] F: [phone] F: [phone] Physical Therapy Plan of Care Date of Evaluation: Date of Surgery: 01/30/21 Diagnosis: s/p R RTC repair 01/30/21. Her supraspinatus was inoperable during surgery. She did have labrum debrided and bicep tendon repaired. She had some PT which was challenging but then she had a in the family and stopped PT. She reports she cannot lift her arm very high, is painful, difficulty with ADLs. At times her arm gets numb and tingling in fingers. She has matutinal stiffness with pain in neck/R UT area. Assessment: Patient is 51 y.o female who presents to PT with Rx for R shoulder pain after having surgery 01/30/21 which included RTC repair, however, the supraspinatus was inoperable. She recently started having more pain, limited ROM, weakness and difficulty with ADLs; getting dressed, cooking, cleaning, bathing, lifting, reaching. She will benefit from skilled PT to address impairments and restore as much functional mobility as possible to improve her ADLs. Frequency and Duration: The patient will be seen 1x/week for 4 weeks Short Term Goals: 2 weeks Patient demonstrates consistency with HEP to self manage chronic symptoms. Patient reports reduction in pain level to 4/10 with lying down. Intermediate Goals: 4 weeks Patient presents with increased R shoulder flexion 170 degrees to reach to high cabinet at home. Patient presents with increased R shoulder ER 70 degrees to reach behind back for dressing and bathing. Treatment Plan: Modalities to reduce pain, spasms and effusion. Manual therapy to restore motion and function. Therapeutic exercise to improve strength and flexibility. Neuromuscular re-education for posture and balance. Therapeutic activities to return to functional activities of daily living. Electronically signed by: Haley Goyal, PT, DPT Please sign and return to therapist. Thank you for your referral.
== END 2022-01-23 11:31 | disposition home or self-care (01) ==
LOC: HO.PT 09:00
PROVIDERS: PCP Internal Medicine; Visit Provider Orthopaedic Surgery
DX: Z98.890 Other specified postprocedural states (principal)
CPT/HCPCS: 97110; 97162

== ENCOUNTER 2021-12-23 09:41 | Outpatient (REF) | payer OTHER, SELFPAY | END 2021-12-23 09:42 | disposition home or self-care (01) | LOC: HO.MDS 09:41 | PROVIDERS: Visit Provider Internal Medicine Pulmonary Disease | DX: J45.50 Severe persistent asthma, uncomplicated (principal) | CPT/HCPCS: 96372; J2357 ==

== ENCOUNTER → 2021-12-29 10:03 | Outpatient (BNVA) | payer OTHER, SELFPAY | PROVIDERS: PCP Internal Medicine; Visit Provider Internal Medicine Pulmonary Disease | DX: J45.50 Severe persistent asthma, uncomplicated (principal); Z91.09 Other allergy status, other than to drugs and biological substances | CPT/HCPCS: 99212 ==

== ENCOUNTER 2022-01-06 08:46 | Outpatient (REF) | payer OTHER, SELFPAY ==
[2022-01-06 09:03] LABS: MANUAL DIFF FLAG NO
[2022-01-06 09:10] LABS: Basophils Percent Auto 0.4 % (0-2); Eosinophils Absolute Auto 0.2 X10*3/uL (0.0-0.4); Eosinophils Percent Auto 2.4 % (0-4); Hematocrit 42.4 % (37.0-47.0); Hemoglobin 13.9 g/dl (12.0-16.0); Imm Gran Abs Auto 0.03 X10*3/uL (0.00-0.03); Imm Gran Pct Auto 0.4 % (0.0-0.4); Lymphocytes Absolute Auto 2.4 X10*3/uL (1.2-4.9); Lymphocytes Percent Auto 30.1 % (20-40); Mean Corpuscular HGB Conc 32.8 g/dl (31.0-35.0); Mean Corpuscular Volume 91.6 fL (80.0-98.0); Mean Platelet Volume 9.8 fL (9.4-12.3); Monocytes Absolute Auto 0.5 X10*3/uL (0.1-1.2); Monocytes Percent Auto 6.7 % (2-11); Neutrophils Absolute Auto 4.8 x10*3/uL (2.0-8.3); Platelet Count 277 X10*3/uL (160-400); Red Blood Count 4.63 X10*6/uL (4.20-5.50); Red Cell Distribution Width 13.8 % (11.0-16.0)
[2022-01-06 09:41] LABS: Alanine Aminotransferase 22 U/L (0-31); Albumin Level 4.5 g/dL (3.5-5.0); Alkaline Phosphatase 83 U/L (39-117); Anion Gap 15 (12-20); Aspartate Amino Transferase 20 U/L (5-31); Bilirubin Total 0.5 mg/dL (0.0-1.0); Blood Urea Nitrogen 13 mg/dL (9-16); Calcium 9.7 mg/dL (8.4-10.2); Carbon Dioxide 28 mmol/L (22-29); Chloride 102 mmol/L (96-108); Cholesterol 245 mg/dL; Estimated Glomerular Filt Rate > 60; Glucose Random 96 mg/dL (60-115); HDL Cholesterol 56 mg/dL; LDL Cholesterol Calculated 170 mg/dl; Potassium 4.3 mmol/L (3.3-5.1); Sodium 141 mmol/L (135-145); Triglycerides 97 mg/dL
[2022-01-06 10:02] LABS: Free T4 (Free Thyroxine) 0.98 ng/dL (0.71-1.85); Thyroid Stimulating Hormone 10.18 uIU/mL (0.32-4.0)
[2022-01-06 10:34] LABS: Folate 10.6 ng/mL (> or = 4.0); Vitamin B12 323 pg/mL (200-900)
[2022-01-06 12:47] LABS: Vitamin D 25-OH Total 30.7 ng/mL (>30)
== END 2022-01-06 08:47 | disposition home or self-care (01) ==
LOC: HO.LAB 08:46
PROVIDERS: PCP Internal Medicine; Visit Provider Internal Medicine
DX: E89.0 Postprocedural hypothyroidism (principal); E78.00 Pure hypercholesterolemia, unspecified
CPT/HCPCS: 36415; 80053; 80061; 82306; 82607; 82746; 83735; 84439; 84443; 85025

== ENCOUNTER 2022-01-06 09:03 | Outpatient (REF) | payer OTHER, SELFPAY | END 2022-01-06 09:04 | disposition home or self-care (01) | LOC: HO.MDS 09:03 | PROVIDERS: Visit Provider Internal Medicine Pulmonary Disease | DX: J45.50 Severe persistent asthma, uncomplicated (principal) | CPT/HCPCS: 96372; J2357 ==

== ENCOUNTER 2022-01-23 09:04 | Outpatient (REF) | payer OTHER, SELFPAY | END 2022-01-23 09:05 | disposition home or self-care (01) | LOC: HO.MDS 09:04 | PROVIDERS: Visit Provider Internal Medicine Pulmonary Disease | DX: J45.50 Severe persistent asthma, uncomplicated (principal) | CPT/HCPCS: J2357 ==

== ENCOUNTER 2022-01-30 08:16 | Outpatient (REF) | payer OTHER, SELFPAY ==
[2022-01-30 08:38] LABS: MANUAL DIFF FLAG NO
[2022-01-30 08:51] LABS: Basophils Percent Auto 0.4 % (0-2); Eosinophils Absolute Auto 0.1 X10*3/uL (0.0-0.4); Eosinophils Percent Auto 1.3 % (0-4); Hematocrit 42.6 % (37.0-47.0); Hemoglobin 14.4 g/dl (12.0-16.0); Imm Gran Abs Auto 0.03 X10*3/uL (0.00-0.03); Imm Gran Pct Auto 0.3 % (0.0-0.4); Lymphocytes Absolute Auto 2.2 X10*3/uL (1.2-4.9); Mean Corpuscular HGB Conc 33.8 g/dl (31.0-35.0); Mean Corpuscular Hemoglobin 31.1 pg (27.0-33.0); Monocytes Absolute Auto 0.7 X10*3/uL (0.1-1.2); Monocytes Percent Auto 7.1 % (2-11); Neutrophils Absolute Auto 6.5 x10*3/uL (2.0-8.3); Neutrophils Percent Auto 67.9 % (45-73); Platelet Count 327 X10*3/uL (160-400); Red Blood Count 4.63 X10*6/uL (4.20-5.50); Red Cell Distribution Width 13.2 % (11.0-16.0); White Blood Count 9.5 X10*3/uL (4.8-10.8)
[2022-01-30 09:15] LABS: Alanine Aminotransferase 21 U/L (0-31); Albumin Level 4.5 g/dL (3.5-5.0); Alkaline Phosphatase 92 U/L (39-117); Anion Gap 11 (12-20); Aspartate Amino Transferase 15 U/L (5-31); Bilirubin Total 0.3 mg/dL (0.0-1.0); Blood Urea Nitrogen 18 mg/dL (9-16); C Reactive Protein 0.19 mg/dL (< or = 0.50); Calcium 9.6 mg/dL (8.4-10.2); Carbon Dioxide 28 mmol/L (22-29); Chloride 106 mmol/L (96-108); Estimated Glomerular Filt Rate > 60; Glucose Random 98 mg/dL (60-115); Lipase 11 U/L (8-78); Potassium 4.3 mmol/L (3.3-5.1); Sodium 141 mmol/L (135-145); Total Protein 8.2 g/dL (6.5-8.0)
[2022-01-30 09:53] LABS: Folate 7.6 ng/mL (> or = 4.0); Vitamin B12 350 pg/mL (200-900)
[2022-01-30 19:58] LABS: CDiff Gene PCR NEGATIVE (Negative)
[2022-02-03 05:59] LABS: Zinc 83 mcg/dL (60-130)
== END 2022-01-30 08:17 | disposition home or self-care (01) ==
LOC: HO.LAB 08:16
PROVIDERS: PCP Internal Medicine; Visit Provider Internal Medicine Gastroenterology
DX: K58.0 Irritable bowel syndrome with diarrhea (principal); K22.4 Dyskinesia of esophagus; K86.2 Cyst of pancreas; R14.0 Abdominal distension (gaseous); R13.10 Dysphagia, unspecified; Z79.899 Other long term (current) drug therapy
CPT/HCPCS: 36415; 80053; 82607; 82746; 83690; 84630; 85025; 86140; 87493; 87507; 99212

== ENCOUNTER 2022-02-02 13:27 | Outpatient (REF) | payer OTHER, SELFPAY | END 2022-02-02 13:28 | disposition home or self-care (01) | LOC: HO.LNP 13:27 | PROVIDERS: Visit Provider Internal Medicine Gastroenterology | DX: Z13.89 Encounter for screening for other disorder (principal) | CPT/HCPCS: 87507 ==

== ENCOUNTER 2022-02-22 09:07 | Outpatient (REF) | payer OTHER, SELFPAY | END 2022-02-22 09:08 | disposition home or self-care (01) | LOC: HO.MDS 09:07 | PROVIDERS: Visit Provider Internal Medicine Pulmonary Disease | DX: J45.50 Severe persistent asthma, uncomplicated (principal) | CPT/HCPCS: 96372; J2357 ==

== ENCOUNTER 2022-03-01 11:05 | Outpatient (REF) | payer OTHER, SELFPAY ==
--- NOTE | ~2022-03-01 | XR_ITS ---
EXAMINATION: XR CHEST CLINICAL INFORMATION: Severe persistent asthma, uncomplicated COMPARISON: 06/05/2018 TECHNIQUE: 2 views of the chest were obtained. FINDINGS: Lung volumes are decreased from the prior study. Unchanged asymmetric elevation of the right hemidiaphragm. Mild diffuse coarse interstitial prominence. No focal consolidation or mass. No pleural effusion or pneumothorax. Normal heart size. Degenerative changes of the thoracic spine. XR/XR chest 2V IMPRESSION: Low lung volumes with mild diffuse coarse interstitial prominence. The appearance is consistent with the history of asthma. No focal consolidation to suggest acute consolidative pneumonia.
== END 2022-03-01 11:06 | disposition home or self-care (01) ==
LOC: HO.XRAY 11:05
PROVIDERS: PCP Internal Medicine; Visit Provider Internal Medicine Pulmonary Disease
DX: J45.50 Severe persistent asthma, uncomplicated (principal); Z91.09 Other allergy status, other than to drugs and biological substances
CPT/HCPCS: 71046; 99212

== ENCOUNTER 2022-03-09 09:03 | Outpatient (REF) | payer OTHER, SELFPAY | END 2022-03-09 09:04 | disposition home or self-care (01) | LOC: HO.MDS 09:03 | PROVIDERS: Visit Provider Internal Medicine Pulmonary Disease | DX: J45.50 Severe persistent asthma, uncomplicated (principal) | CPT/HCPCS: 96372; J2357 ==

== ENCOUNTER 2022-03-13 11:05 | Day surgery (SDC) | payer OTHER, SELFPAY ==
[2022-03-13 11:46] VITALS: BMI 33.7
[2022-03-13 11:51] VITALS: BP 123/89; PULSE 90; RESP 16; TEMP 36.4; O2SAT 96
[2022-03-13] MEDS: Lactated Ringers 1,000 ML 50 ML IVCONT (12:10)
--- NOTE | 2022-03-13 12:32 | MHC.SHP ---
Pre-Procedural Eval Section A Date of Service: 03/13/22 The patient is an INPATIENT: No The History & Physical has been completed within 30 days and I have reviewed it.: No Section B Chief Complaint: abdominal pain, diarrhea, rectal bleeding Details of Present Illness: as above Relevant Family History (Specify if Yes): No Relevant Social History: Tobacco Use (former smoker) Present Medications: see Short Stay Collaborative assessment Medical History: Significant History (Asthma Chronic constipation Colitis Constipation Esophageal spasm Fall Fibromyalgia GERD (gastroesophageal reflux disease) History of migraine headaches History of TIA (transient ischemic attack)) History of Previous Operations: Relevant previous surgery/procedure and date(s) (H/O lithotripsy H/O: hysterectomy History of arthroscopic surgery of shoulder History of breast lump/mass excision History of cholecystectomy (~2003) History of colonoscopy (~11/16/19) History of esophagogastroduodenoscopy (EGD)) Allergies: Allergies Allergy/AdvReac Type Severity Reaction Status Date / Time pineapple [PINEAPPLE] Allergy Severe ANAPHYLAXIS Verified 03/01/22 11:07 adhesive tape Allergy Intermediate Blister Verified 03/01/22 11:07 Iodinated Contrast Media Allergy Intermediate SOB,RASH Verified 03/01/22 11:07 [IV Dye, Iodine Containing] levofloxacin [From Levaquin] Allergy Intermediate swelling/ra Verified 03/01/22 11:07 sh oxycodone [From Percocet] Allergy Intermediate rash/SOB Verified 03/01/22 11:07 aspirin [ASA] AdvReac Mild UPSET Verified 03/01/22 11:07 STOMACH Review of Systems Sugical H&P ROS: Negative: Constitution, Cardiovascular and Respiratory and Yes, Specify: Gastrointestinal (abd pain and diarrhea) Exam Surgical H&P Exam: Normal: Heart, Normal: Lungs, Normal: Extremities and Normal: Abdomen Plan Diagnosis/Plan: Unchanged I have reviewed the history and physical and performed a pertinent physical examination on my patient. No changes have occurred unless specified. Time Spent With Patient Time: Total time managing care of this patient today ____ minutes.
--- NOTE | 2022-03-13 12:33 | P.CONAN_ITS ---
[facility] Active Problems Active Problems: All Active Problems (Updated 01/30/22 @ 08:12 by Sky Horton MD) Dysphagia (Acute) Diarrhea (Acute) Irritable bowel syndrome (Acute) Post-surgical hypothyroidism (Acute) History of repair of right rotator cuff (Acute) Environmental allergies (Acute) Depression (Acute) Adhesive capsulitis of left shoulder (Acute) Hypothyroidism (Acute) Diarrhea (Acute) Tendinopathy of left rotator cuff (Acute) Abdominal bloating (Acute) Complete rotator cuff tear or rupture of right shoulder, not specified as traumatic (Acute) Right forearm pain (Acute) Obesity (BMI 30-39.9) (Acute) Hypercholesterolemia (Acute) Vitamin D deficiency (Acute) Multinodular thyroid (Acute) Pancreatic cyst (Acute) Hypertension (Acute) Asthma (Acute) Esophageal spasm (Acute) Fibromyalgia (Acute) Past Medical History Medical History (Updated 01/30/22 @ 08:12 by Sky Horton MD) Abnormal finding on EKG Allergic rhinitis Asthma Chronic constipation Colitis Constipation Esophageal spasm Fall Fibromyalgia GERD (gastroesophageal reflux disease) History of migraine headaches History of TIA (transient ischemic attack) Hx of flexible sigmoidoscopy Hypercholesterolemia Hypertension Hypertensive urgency Hypothyroidism IBS (irritable bowel syndrome) Internal derangement of right shoulder Kidney stones Lateral epicondylitis of both elbows Lump of axillary tail of right breast Lump of left breast Lump of right breast Multinodular thyroid Obesity (BMI 30-39.9) Ovarian cyst Pancreatic cyst Rectal bleeding Rotator cuff impingement syndrome Rotator cuff impingement syndrome of left shoulder Sciatic nerve pain Thyroid nodule Vitamin D deficiency Well woman exam Family History Family History Father Family history of high blood pressure History of high cholesterol Mother History of diabetes mellitus Family history of high blood pressure Family history of asthma History of fibromyalgia Liver disease Family history of problems with anesthesia: No Surgical History Surgical History H/O lithotripsy H/O: hysterectomy History of arthroscopic surgery of shoulder History of breast lump/mass excision History of cholecystectomy (~2003) History of colonoscopy (~11/16/19) History of esophagogastroduodenoscopy (EGD) History of kidney surgery History of thyroidectomy (~11/2018) Hx of appendectomy Hx of bilateral breast reduction surgery Hx of eye surgery Hx of hemorrhoidectomy Hx of tubal ligation History of Problems with Anesthesia: No Social History Social History Household Members: None Housing: House Are you a primary care team coordinator scheduler to a significant other at home: No Do you presently have visiting nurse or other home services: No Alcohol intake: never Patient Tobacco Use Status: Former Tobacco user Quit Date: 2013 Tobacco use type: Cigarette Years Smoked: 3 e-Cigarette/Vaping Use: Never Used Second Hand Smoke Exposure: No Use of substances other than those prescribed or required for medical reasons: No Substance Use Type: Marijuana Are you DNR?: No Advance Directives: No Advance Directives Information Provided: Yes service: No Current occupational status: disabled Current occupation: right handed Cognitive needs: No Hearing needs: No Vision needs: Yes Meds Allergies Allergy/AdvReac Type Severity Reaction Status Date / Time pineapple [PINEAPPLE] Allergy Severe ANAPHYLAXIS Verified 03/01/22 11:07 adhesive tape Allergy Intermediate Blister Verified 03/01/22 11:07 Iodinated Contrast Media Allergy Intermediate SOB,RASH Verified 03/01/22 11:07 [IV Dye, Iodine Containing] levofloxacin [From Levaquin] Allergy Intermediate swelling/ra Verified 03/01/22 11:07 sh oxycodone [From Percocet] Allergy Intermediate rash/SOB Verified 03/01/22 11:07 aspirin [ASA] AdvReac Mild UPSET Verified 03/01/22 11:07 STOMACH Exam Exam Date and Time: March 13, 2022 1233 Height,Weight and Vital Signs: Height 5 ft 5 in Weight 92.079 kg Last Vital Signs Temp 97.6 F 03/13/22 11:51 Pulse 90 03/13/22 11:51 Resp 16 03/13/22 11:51 BP 123/89 03/13/22 11:51 Pulse Ox 96 03/13/22 11:51 O2 Del Method 03/13/22 11:51 Airway Mallampati Class: II TM Dist: >3cm Neck ROM: Full Heart: rrr Lungs: cta Assessment and Plan Assessment Anesthesia Assessment: Anesthesia Plan Discussed and Chart Reviewed Final Anesthetic Review Family History of Problems with Anesthesia: No History of Problems with Anesthesia: No NPO: Yes ASA Class: III Final Preanesthetic Review: No Changes in Pt Med Stat, Meds/Allgs Chart Reviewed and Consent Obtained/Reviewed Patient Risk: Intermediate Procedure Risk: Intermediate Anesthetic Plan Anesthetic Plan: MAC: Disposition: Standard PACU
[2022-03-13 13:25] VITALS: BP 112/90; PULSE 87; RESP 16; TEMP 36.4; O2SAT 96
--- NOTE | 2022-03-13 13:30 | P.BOP_ITS ---
Brief Operative Note Date of Service: 03/13/22 Pre-op diagnosis: Abdominal pain, chronic diarrhea Post-op diagnosis: other ( COLON POLYPS, DIVERTICULOSIS, HEMORRHOIDS) Procedure: COLONOSCOPY TILL CECUM WITH BIOPSIES Surgeon: Sky Horton MD Anesthesia: MAC Was an Patient Service Representative used for this Procedure?: No Estimated blood loss (mL): 0 Pathology: other (A: cecal polyp B: right colon random biopsy C: ascending colon polyp D: left colon biopsy to rule out microscopic colitis) Condition: stable Disposition: PACU
--- NOTE | 2022-03-13 13:30 | W.PM.OPN ---
Operative Note Operative Note Date of Service: 03/13/22 Narrative: Pre-op diagnosis: Abdominal pain, chronic diarrhea Post-op diagnosis:?other ( COLON POLYPS, DIVERTICULOSIS, HEMORRHOIDS) Surgeon: Sky Horton MD Anesthesia:?MAC COLONOSCOPY TILL CECUM WITH BIOPSIES Consent: Indications for the procedure and potential complications of bleeding, perforation, reaction to medications and missed diagnosis were discussed with the patient and informed consent was obtained. Instrument: Olympus PCF H 190 L variable stiffness pediatric colonoscope Monitoring: Vital signs and clinical assessment, intermittent blood pressure monitoring, continuous EKG monitoring, Pulse oximetry and Carbon Dioxide monitoring were done throughout the procedure. Colon withdrawl time was 24 minutes. Procedure: The patient was placed in the left lateral decubitis position and pre-procedure medications were administered. After a digital rectal examination of the ano-rectum, the video colonoscope was inserted into the rectum and advanced through the colon to the cecum. The colonoscope was slowly withdrawn in a retrograde panoramic fashion and the colon mucosa was carefully examined including a retroflexed view of the rectum. Findings and interventions are described below. Procedure Difficulty: Without difficulty Findings: Terminal Ileum: Not evaluated Cecum: A 4-5 mm sessile polyp removed with a cold snare Ascending Colon: Normal Transverse Colon: A 4-5 mm sessile polyp removed with a cold bx Descending Colon: moderate diverticulosis Sigmoid Colon: Moderate diverticulosis Rectum: Normal Ano-rectum: Moderate internal hemorrhoids, hypertrophied anal papillae and perianal skin tag Colon preparation: Good Impression and Post Procedure Diagnosis: Colonoscopy Findings: Two small polyps removed Moderate diverticulosis seen in the []colon Moderate hemorrhoids on retroflexed exam. Plan: Await pathology results Patient has an appointment on 03/16/22 in the GI [facility] with Sky Horton M.D.. Repeat Colonoscopy interval based on path results - in 5 years if polyps are adenomatous and 10 years if polyps are hyperplastic. Colon polyps and diverticulosis handouts were given in the discharge area
[2022-03-13 13:40] VITALS: BP 127/82; PULSE 79; RESP 16; TEMP 36.4; O2SAT 96
[2022-03-13] MEDS: ondansetron HCL 4 MG/2 ML VIAL IVPUSH (13:50)
[2022-03-13 13:55] VITALS: BP 122/79; PULSE 77; RESP 16; O2SAT 95
== END 2022-03-13 14:26 | disposition home or self-care (01) ==
PROVIDERS: PCP Internal Medicine; Visit Provider Internal Medicine Gastroenterology
PROC: 0DJD8ZZ Inspection of Lower Intestinal Tract, Via Natural or Artificial Opening Endoscopic (ICD-10-PCS; CPT 45378; principal; 2022-03-13 12:30)
DX: K62.5 Hemorrhage of anus and rectum (principal); D12.0 Benign neoplasm of cecum; D12.2 Benign neoplasm of ascending colon; K57.30 Diverticulosis of large intestine without perforation or abscess without bleeding; K64.8 Other hemorrhoids; K64.4 Residual hemorrhoidal skin tags; K62.89 Other specified diseases of anus and rectum; K58.0 Irritable bowel syndrome with diarrhea; R14.0 Abdominal distension (gaseous); R13.10 Dysphagia, unspecified; K22.4 Dyskinesia of esophagus; K21.9 Gastro-esophageal reflux disease without esophagitis; K86.2 Cyst of pancreas; I10 Essential (primary) hypertension; E55.9 Vitamin D deficiency, unspecified; M79.7 Fibromyalgia; E66.9 Obesity, unspecified; Z68.38 Body mass index [BMI] 38.0-38.9, adult; J45.909 Unspecified asthma, uncomplicated; Z79.51 Long term (current) use of inhaled steroids; Z79.899 Other long term (current) drug therapy; Z88.1 Allergy status to other antibiotic agents; Z88.8 Allergy status to other drugs, medicaments and biological substances; Z91.040 Latex allergy status; Z91.041 Radiographic dye allergy status; Z90.49 Acquired absence of other specified parts of digestive tract; Z87.442 Personal history of urinary calculi; Z86.73 Personal history of transient ischemic attack (TIA), and cerebral infarction without residual deficits; Z98.890 Other specified postprocedural states; Z87.891 Personal history of nicotine dependence
CPT/HCPCS: 45385; 45380; 88305; J2405

== ENCOUNTER → 2022-03-14 08:49 | Outpatient (BNVA) | payer OTHER, SELFPAY | PROVIDERS: PCP Internal Medicine; Visit Provider Obstetrics & Gynecology | DX: Z13.89 Encounter for screening for other disorder (principal) ==

== ENCOUNTER 2022-03-16 09:58 | Outpatient (REF) | payer OTHER, SELFPAY ==
--- NOTE | ~2022-03-16 | FL_ITS ---
EXAMINATION: FL BARIUM SWALLOW CLINICAL INFORMATION: R13.10 - Dysphagia, unspecified COMPARISON: Chest radiographs 03/01/2022, CT abdomen 08/08/2020, radiographs cervical spine 08/06/2019 TECHNIQUE: Barium swallow examination is performed using fluoroscopic evaluation in addition to multiple fluoroscopic spot views, including cine images during swallowing. The patient is imaged both upright and prone and using both thick and thin sulfate along with effervescent granules. Barium pill also used. Fluoroscopy time: 1.5 minutes DAP: 9.268 Gycm2 Images: 27 FINDINGS: Swallowing function is normal and there is no aspiration. The cervical esophagus has no web or diverticulum or stricture. The cervical thoracic junction appears normal. There are degenerative changes cervical spine with moderate bulky anterior bridging osteophytes C4-C5, C5-C6 and C6-C7. There is no delay in the swallowed bolus through this area. There is prompt transit of the barium pill from mouth to stomach. The thoracic esophagus shows normal motility with no obstruction, stricture, or ulceration. There is a normal esophageal vestibule. There is no hiatal hernia demonstrated. Spontaneous gastroesophageal reflux is seen during fluoroscopy to the level mid thoracic esophagus. A cursory view of the upper abdomen shows no gastric outlet obstruction. FL/FL barium swallow IMPRESSION: -Spontaneous gastroesophageal reflux to the level mid thoracic esophagus. -Bridging anterior osteophytes mid to lower cervical spine. Swelling function unremarkable. -No stricture, ulceration, or hiatal hernia.
== END 2022-03-16 09:59 | disposition home or self-care (01) ==
LOC: HO.XRAY 09:58
PROVIDERS: PCP Internal Medicine; Visit Provider Internal Medicine Gastroenterology
DX: R13.10 Dysphagia, unspecified (principal)
CPT/HCPCS: 74220; 99212

== ENCOUNTER 2022-03-23 09:08 | Outpatient (REF) | payer OTHER, SELFPAY | END 2022-03-23 09:09 | disposition home or self-care (01) | LOC: HO.MDS 09:08 | PROVIDERS: Visit Provider Internal Medicine Pulmonary Disease | DX: J45.50 Severe persistent asthma, uncomplicated (principal) | CPT/HCPCS: 96372; J2357 ==

== ENCOUNTER 2022-04-04 11:53 | Outpatient (REF) | payer OTHER, SELFPAY | END 2022-04-04 11:54 | disposition home or self-care (01) | LOC: HO.LNP 11:53 | PROVIDERS: Visit Provider Obstetrics & Gynecology | DX: N90.89 Other specified noninflammatory disorders of vulva and perineum (principal) | CPT/HCPCS: 56605; 88305; 88312 ==

== ENCOUNTER 2022-04-06 09:54 | Outpatient (REF) | payer OTHER, SELFPAY | END 2022-04-06 09:55 | disposition home or self-care (01) | LOC: HO.MDS 09:54 | PROVIDERS: Visit Provider Internal Medicine Pulmonary Disease | DX: J45.50 Severe persistent asthma, uncomplicated (principal); Z09 Encounter for follow-up examination after completed treatment for conditions other than malignant neoplasm; N90.4 Leukoplakia of vulva | CPT/HCPCS: 96372; 99212; J2357 ==

== ENCOUNTER → 2022-04-11 11:30 | Outpatient (BNVA) | payer OTHER, SELFPAY | PROVIDERS: PCP Internal Medicine; Visit Provider Nurse Practitioner Family | DX: M79.7 Fibromyalgia (principal) | CPT/HCPCS: 99212 ==

== ENCOUNTER 2022-04-20 08:39 | Outpatient (REF) | payer OTHER, SELFPAY ==
[2022-04-20 09:11] LABS: Appearance Urine Cloudy; Color Urine Yellow; Glucose Urine UA Negative (Negative); Leukocyte Esterase Urine Negative (Negative); Nitrite Urine Negative (Negative); Specific Gravity - Urine 1.025 (1.005-1.025); Urine Blood Negative (Negative); Urine Ketones Negative (Negative); Urine Protein Trace mg/dL (Neg-Trace)
[2022-04-20 09:30] LABS: Bacteria Urine Trace (None Seen); Hyaline Casts Urine 0-2 /LPF (0-2); Other Crystals Urine Present; WBC Urine 0-5 /HPF (0-5)
[2022-04-20 09:39] LABS: Alanine Aminotransferase 14 U/L (0-31); Albumin Level 4.1 g/dL (3.5-5.0); Alkaline Phosphatase 80 U/L (39-117); Anion Gap 14 (12-20); Aspartate Amino Transferase 13 U/L (5-31); Bilirubin Total 0.5 mg/dL (0.0-1.0); Blood Urea Nitrogen 12 mg/dL (9-16); Calcium 8.9 mg/dL (8.4-10.2); Carbon Dioxide 26 mmol/L (22-29); Chloride 106 mmol/L (96-108); Cholesterol 257 mg/dL; Estimated Glomerular Filt Rate > 60; Glucose Fasting 96 mg/dL (60-99); HDL Cholesterol 62 mg/dL; LDL Cholesterol Calculated 178 mg/dl; Potassium 4.3 mmol/L (3.3-5.1); Sodium 142 mmol/L (135-145); Total Protein 7.4 g/dL (6.5-8.0); Triglycerides 86 mg/dL
[2022-04-20 09:57] LABS: Free T4 (Free Thyroxine) 0.78 ng/dL (0.71-1.85); Thyroid Stimulating Hormone 49.91 uIU/mL (0.32-4.0)
== END 2022-04-20 08:40 | disposition home or self-care (01) ==
LOC: HO.LAB 08:39
PROVIDERS: Internal Medicine; PCP Internal Medicine; Visit Provider Internal Medicine
DX: E89.0 Postprocedural hypothyroidism (principal); J45.50 Severe persistent asthma, uncomplicated; E78.00 Pure hypercholesterolemia, unspecified; I10 Essential (primary) hypertension
CPT/HCPCS: 36415; 80053; 80061; 81001; 84439; 84443

== ENCOUNTER 2022-04-20 08:56 | Outpatient (REF) | payer OTHER, SELFPAY | END 2022-04-20 08:57 | disposition home or self-care (01) | LOC: HO.MDS 08:56 | PROVIDERS: Visit Provider Internal Medicine Pulmonary Disease | DX: J45.50 Severe persistent asthma, uncomplicated (principal) | CPT/HCPCS: 96372; J2357 ==

== ENCOUNTER → 2022-04-26 12:22 | Outpatient (BNVA) | payer OTHER, SELFPAY | PROVIDERS: PCP Internal Medicine; Visit Provider Obstetrics & Gynecology | DX: L28.0 Lichen simplex chronicus (principal) | CPT/HCPCS: 99212 ==

== ENCOUNTER → 2022-04-28 07:26 | Outpatient (BNVA) | payer OTHER, SELFPAY | PROVIDERS: PCP Internal Medicine; Referring Provider Internal Medicine; Visit Provider Internal Medicine Gastroenterology | DX: K59.09 Other constipation (principal); K58.0 Irritable bowel syndrome with diarrhea; R14.0 Abdominal distension (gaseous); K21.9 Gastro-esophageal reflux disease without esophagitis; K86.2 Cyst of pancreas; M79.7 Fibromyalgia; E55.9 Vitamin D deficiency, unspecified; Z90.49 Acquired absence of other specified parts of digestive tract | CPT/HCPCS: 99212 ==

== ENCOUNTER 2022-05-04 08:57 | Outpatient (REF) | payer OTHER, SELFPAY | END 2022-05-04 08:58 | disposition home or self-care (01) | LOC: HO.MDS 08:57 | PROVIDERS: PCP Internal Medicine; Visit Provider Internal Medicine Pulmonary Disease | DX: J45.50 Severe persistent asthma, uncomplicated (principal); Z91.09 Other allergy status, other than to drugs and biological substances; Z79.899 Other long term (current) drug therapy | CPT/HCPCS: 96372; 99212; J2357 ==

== ENCOUNTER → 2022-05-15 09:06 | Outpatient (BNVA) | payer OTHER, SELFPAY | PROVIDERS: PCP Internal Medicine; Visit Provider Internal Medicine | DX: E89.0 Postprocedural hypothyroidism (principal); E04.2 Nontoxic multinodular goiter | CPT/HCPCS: 99212 ==

== ENCOUNTER 2022-05-15 09:36 | Outpatient (REF) | payer OTHER, SELFPAY ==
[2022-05-15 11:24] LABS: Free T4 (Free Thyroxine) 1.04 ng/dL (0.71-1.85); Thyroid Stimulating Hormone 3.72 uIU/mL (0.32-4.0)
== END 2022-05-15 09:37 | disposition home or self-care (01) ==
LOC: HO.10HDL 09:36
PROVIDERS: Visit Provider Internal Medicine
DX: E89.0 Postprocedural hypothyroidism (principal)
CPT/HCPCS: 36415; 84439; 84443

== ENCOUNTER 2022-05-22 18:13 | Emergency (ER) | payer OTHER, SELFPAY ==
[2022-05-22 18:20] VITALS: BP 154/103; PULSE 110; RESP 18; TEMP 36.7; O2SAT 96; BMI 36.3
--- NOTE | 2022-05-22 18:22 | ECG_ITS ---
Test Reason : HYPERTENSION Blood Pressure : / mmHG Vent. Rate : 106 BPM Atrial Rate : 106 BPM P-R Int : 154 ms QRS Dur : 074 ms QT Int : 362 ms P-R-T Axes : 027 -20 032 degrees QTc Int : 480 ms Sinus tachycardia Inferior infarct , age undetermined Cannot rule out Anterior infarct , age undetermined Abnormal ECG When compared with ECG of 06-AUG-2020 12:16, Vent. rate has increased BY 37 BPM Minimal criteria for Anterior infarct are now Present Inferior infarct is now Present Referred By: Generic ED Physician Electronically Signed By:RUSS CASTILLO
--- NOTE | 2022-05-22 18:22 | ED_ITS ---
HPI - General Adult General Chief complaint: General Medical <SHALOM Tinoco - Last Filed: 06/04/22 11:41> Stated complaint: headache, BP is high, chest pain <SHALOM Tinoco - Last Filed: 06/04/22 11:41> Time Seen by Provider: 05/22/22 22:10 <SHALOM Tinoco - Last Filed: 06/04/22 11:41> Source: patient <Maximiliano Phelps MD - Last Filed: 05/23/22 00:14> Mode of arrival: ambulatory <Maximiliano Phelps MD - Last Filed: 05/23/22 00:14> Limitations: no limitations <Maximiliano Phelps MD - Last Filed: 05/23/22 00:14> History of Present Illness HPI narrative: Patient With history of fibromyalgia, hypertension, migraine comes in for a headache on the left side of the forehead similar that in the past with light sensitivity no nausea no vomiting feels pain in the left jaw also no chest pain or palpitation or shortness of breath feels pain same as in the past patient has a blood pressure elevated 154/103 usual blood pressure according to patient is 150/60s <Maximiliano Phelps MD - Last Filed: 05/23/22 00:14> Related Data Home medications: Previous Rx's Medication Instructions Recorded omalizumab 150 mg/mL subcutaneous 300 mg (2 mL) subcut Q2W #4 mL 03/25/20 syringe (Xolair) magnesium citrate 150 ml PO ONCE 1 day #150 mL 06/30/21 diclofenac sodium 75 mg 75 mg PO BID #60 tabs 07/08/21 tablet,delayed release amlodipine 10 mg tablet 10 mg PO DAILY #90 tabs 11/07/21 Ventolin HFA 90 mcg/actuation 2 puff inhalation Q4-6H PRN 12/29/21 aerosol inhaler (albuterol sulfate) shortness of breath or wheezing 30 days #1 ea metoprolol tartrate 50 mg tablet See Rx Instructions PO .COMPLEX 90 01/06/22 days #270 tabs ipratropium 0.5 mg-albuterol 3 mg 3 ml inhalation Q4-6H PRN wheezing 01/10/22 (2.5 mg base)/3 mL nebulization 30 days #180 mL soln Lactobacillus rhamnosus GG 15 1 cap PO DAILY 50 days #50 caps 03/03/22 billion cell sprinkle capsule (Culturelle) famotidine 20 mg tablet 20 mg PO BEDTIME PRN for acid 03/20/22 reflux 30 days #30 tabs sucralfate 1 gram tablet 1 g PO BID 30 days #60 tabs 03/20/22 fluticasone furoate 200 1 inh inhalation DAILY 30 days #60 03/27/22 mcg-vilanterol 25 mcg/dose ea inhalation powder (Breo Ellipta) umeclidinium 62.5 mcg/actuation 1 inh inhalation DAILY 30 days #30 03/27/22 blister powder for inhalation ea (Incruse Ellipta) pregabalin 50 mg capsule (Lyrica) See Rx Instructions .Route 04/11/22 .COMPLEX #53 caps amitriptyline 25 mg tablet 50 mg PO BEDTIME 30 days #60 tabs 04/28/22 cholecalciferol (vitamin D3) 50 50 mcg PO DAILY 30 days #30 caps 05/04/22 mcg (2,000 unit) capsule pantoprazole 40 mg tablet,delayed 40 mg PO QAM 30 days #30 tabs 05/04/22 release prednisone 10 mg tablet 10 mg PO DAILY #30 tabs 05/10/22 lgyqagyrke-xjsetzmkqygbx-icifmmfq 1 cap PO Q6H PRN headache #20 caps 05/23/22 50 mg-300 mg-40 mg capsule (Fioricet) clobetasol 0.05 % topical cream 1 appl topical BID 4 weeks #45 05/24/22 grams clotrimazole-betamethasone 1 1 appl topical BID 5 days #45 grams 05/24/22 %-0.05 % topical cream hydroxyzine HCl 25 mg tablet 25 mg PO TID PRN for itch #21 tabs 05/24/22 levothyroxine 175 mcg tablet 175 mcg PO DAILY 5 days #5 tabs 05/29/22 atorvastatin 10 mg tablet (Lipitor) 10 mg PO DAILY #30 tabs 05/31/22 sumatriptan succinate 50 mg tablet 50 mg PO .QD PRN migraine headache 05/31/22 (Imitrex) #10 tabs docusate sodium 100 mg capsule 100 mg PO BID #60 caps 06/04/22 <SHALOM Tinoco - Last Filed: 06/04/22 11:41> Allergies/adverse reactions: Allergies Allergy/AdvReac Type Severity Reaction Status Date / Time pineapple [PINEAPPLE] Allergy Severe ANAPHYLAXIS Verified 05/31/22 09:03 adhesive tape Allergy Intermediate Blister Verified 05/31/22 09:03 Iodinated Contrast Media Allergy Intermediate SOB,RASH Verified 05/31/22 09:03 [IV Dye, Iodine Containing] levofloxacin [From Levaquin] Allergy Intermediate swelling/ra Verified 05/31/22 09:03 sh oxycodone [From Percocet] Allergy Intermediate rash/SOB Verified 05/31/22 09:03 aspirin [ASA] AdvReac Mild UPSET Verified 05/31/22 09:03 STOMACH <SHALOM Tinoco - Last Filed: 06/04/22 11:41> Review of Systems Review of Systems: Yes all other systems are reviewed and are negative <Maximiliano Phelps MD - Last Filed: 05/23/22 00:14> [facility] Past Medical History Medical History: Medical History (Updated 05/31/22 @ 09:23 by Barak Junior MD) Abdominal bloating Abnormal finding on EKG Allergic rhinitis Asthma Chronic constipation Colitis Constipation Diarrhea Diarrhea Dysphagia Esophageal spasm Fall Fibromyalgia GERD (gastroesophageal reflux disease) History of migraine headaches History of TIA (transient ischemic attack) Hx of flexible sigmoidoscopy Hypercholesterolemia Hypertension Hypertensive urgency Hypothyroidism IBS (irritable bowel syndrome) Internal derangement of right shoulder Kidney stones Lateral epicondylitis of both elbows Lump of axillary tail of right breast Lump of left breast Lump of right breast Multinodular thyroid Ovarian cyst Pancreatic cyst Rectal bleeding Right forearm pain Rotator cuff impingement syndrome Rotator cuff impingement syndrome of left shoulder Sciatic nerve pain Tendinopathy of left rotator cuff Thyroid nodule Vitamin D deficiency Well woman exam <SHALOM Tinoco - Last Filed: 06/04/22 11:41> Surgical History: Surgical History H/O lithotripsy H/O: hysterectomy History of arthroscopic surgery of shoulder History of breast lump/mass excision History of cholecystectomy (~2003) History of colonoscopy (~11/16/19) History of esophagogastroduodenoscopy (EGD) History of kidney surgery History of thyroidectomy (~11/2018) Hx of appendectomy Hx of bilateral breast reduction surgery Hx of eye surgery Hx of hemorrhoidectomy Hx of tubal ligation <SHALOM Tinoco - Last Filed: 06/04/22 11:41> Family History Family History: Family History Father Family history of high blood pressure History of high cholesterol Mother History of diabetes mellitus Family history of high blood pressure Family history of asthma History of fibromyalgia Liver disease <SHALOM Tinoco - Last Filed: 06/04/22 11:41> Social History Social History: Social History Household Members: None Housing: House Are you a primary customer care associate to a significant other at home: No Do you presently have visiting nurse or other home services: No Alcohol intake: never Patient Tobacco Use Status: Former Tobacco user Quit Date: 2013 Tobacco use type: Cigarette Years Smoked: 3 e-Cigarette/Vaping Use: Never Used Second Hand Smoke Exposure: No Substance Use Type: Marijuana service: No Current occupational status: disabled Current occupation: right handed Cognitive needs: No Hearing needs: No Vision needs: Yes <SHALOM Tinoco - Last Filed: 06/04/22 11:41> Physical Exam ED Vital Signs: Vital Signs - 24 hr 05/22/22 18:20 05/22/22 22:00 Temperature 98.0 F 98.3 F Pulse Rate 110 H 100 Respiratory Rate 18 16 Blood Pressure 154/103 H 135/93 H Pulse Oximetry 96 97 Oxygen Delivery Method Room Air Room Air BMI result Body Mass Index 36.3 <SHALOM Tinoco - Last Filed: 06/04/22 11:41> Vital Signs - 24 hr 05/22/22 18:20 05/22/22 22:00 Temperature 98.0 F 98.3 F Pulse Rate 110 H 100 Respiratory Rate 18 16 Blood Pressure 154/103 H 135/93 H Pulse Oximetry 96 97 Oxygen Delivery Method Room Air Room Air BMI result Body Mass Index 36.3 <Maximiliano Phelps MD - Last Filed: 05/23/22 00:14> Appearance: Alert. Oriented X3. No acute distress. Eyes: PERRLA, No Nystagmus ENT: Pharynx normal. Oral Mucosa moist no temporal artery tenderness Neck: Normal inspection. Neck supple. CVS: Normal heart rate and rhythm. Pulses normal. Respiratory: No respiratory distress. Equal air entry bilateral, no wheezing/rales/rhonchi Abdomen: Soft and nontender. Bowel sounds are present, Skin: Skin warm and dry. Normal skin color. Normal skin turgor. Extremities: No lower extremity edema. No calf tenderness Neuro: Oriented X 3. No motor deficit. No sensory deficit.No cerebellar signs , cranial nerves II-XII intact <Maximiliano Phelps MD - Last Filed: 05/23/22 00:14> Course Course Course Narrative: RME: 31-year-old female presents to the ED for elevated blood pressure at home was systolic 160 with diastolic 114. patient states headache and chest painEKG ordered. negative for neuro deficits. <SHALOM Tinoco - Last Filed: 06/04/22 11:41> Medications Administered Discontinued Medications Generic Name Dose Route Start Last Admin Trade Name Freq PRN Reason Stop Dose Admin Acetaminophen/Butalbital/Caffeine 1 tab 05/22/22 22:17 05/22/22 22:32 Butalb/Acetamin/Caff 50/325/40 Tablet PO 05/22/22 22:18 1 tab ONCE ONE Administration Ibuprofen 600 mg 05/22/22 23:24 05/22/22 23:38 Ibuprofen 600 Mg Tablet PO 05/22/22 23:25 600 mg ONCE ONE Administration Sumatriptan Succinate 6 mg 05/22/22 22:17 05/22/22 22:33 Sumatriptan Succinate 6 Mg/0.5 Ml Vial SUBCUT 05/22/22 22:18 6 mg ONCE ONE Administration <SHALOM Tinoco - Last Filed: 06/04/22 11:41> Medications Administered Discontinued Medications Generic Name Dose Route Start Last Admin Trade Name Freq PRN Reason Stop Dose Admin Acetaminophen/Butalbital/Caffeine 1 tab 05/22/22 22:17 05/22/22 22:32 Butalb/Acetamin/Caff 50/325/40 Tablet PO 05/22/22 22:18 1 tab ONCE ONE Administration Ibuprofen 600 mg 05/22/22 23:24 05/22/22 23:38 Ibuprofen 600 Mg Tablet PO 05/22/22 23:25 600 mg ONCE ONE Administration Sumatriptan Succinate 6 mg 05/22/22 22:17 05/22/22 22:33 Sumatriptan Succinate 6 Mg/0.5 Ml Vial SUBCUT 05/22/22 22:18 6 mg ONCE ONE Administration <Maximiliano Phelps MD - Last Filed: 05/23/22 00:14> Medical Decision Making Medical Decision Making [facility] Narrative: Patient feeling much better after Imitrex and Fioricet headache almost gone discharge patient home on Imitrex and Fioricet <Maximiliano Phelps MD - Last Filed: 05/23/22 00:14> Lab Data [facility] Lab Attestation statement: I reviewed the patient's lab results. <Maximiliano Phelps MD - Last Filed: 05/23/22 00:14> Result Diagrams: 05/22/22 18:36 05/22/22 18:36 <SHALOM Tinoco - Last Filed: 06/04/22 11:41> Labs: Lab Results 05/22/22 05/22/22 05/22/22 Range/Units 18:36 18:36 18:36 WBC 10.1 (4.8-10.8) X10*3/uL RBC 4.61 (4.20-5.50) X10*6/uL Hgb 14.2 (12.0-16.0) g/dl Hct 42.7 (37.0-47.0) % MCV 92.6 (80.0-98.0) fL MCH 30.8 (27.0-33.0) pg MCHC 33.3 (31.0-35.0) g/dl RDW 13.9 (11.0-16.0) % Plt Count 312 (160-400) X10*3/uL MPV 9.6 (9.4-12.3) fL Immature Gran % (Auto) 0.6 H (0.0-0.4) % Neut % (Auto) 63.9 (45-73) % Lymph % (Auto) 26.6 (20-40) % [place] % (Auto) 6.3 (2-11) % Eos % (Auto) 2.1 (0-4) % Baso % (Auto) 0.5 (0-2) % Lymph # (Auto) 2.7 (1.2-4.9) X10*3/uL [place] # (Auto) 0.6 (0.1-1.2) X10*3/uL Eos # (Auto) 0.2 (0.0-0.4) X10*3/uL Baso # (Auto) 0.1 (0.0-0.2) X10*3/uL Abs Immat Gran (auto) 0.06 H (0.00-0.03) X10*3/uL Absolute Neuts (auto) 6.5 (2.0-8.3) x10*3/uL Absolute Nucleated RBC 0.000 (0.0-0.012) X10*3/uL Nucleated RBC % (auto) 0.0 (0.0-0.2) /100WBC PT 9.8 L (10.0-13.1) SEC INR 0.9 (0.9-1.1) Sodium 139 (135-145) mmol/L Potassium 3.8 (3.3-5.1) mmol/L Chloride 105 (96-108) mmol/L Carbon Dioxide 23 (22-29) mmol/L Anion Gap 15 (12-20) BUN 21 H (9-16) mg/dL Creatinine 0.71 (0.5-1.4) mg/dL Estim Creat Clear Calc 115.6 Estimated GFR > 60 Random Glucose 124 H (60-115) mg/dL Calcium 9.4 (8.4-10.2) mg/dL Total Bilirubin 0.3 (0.0-1.0) mg/dL AST 15 (5-31) U/L ALT 23 (0-31) U/L Alkaline Phosphatase 98 (39-117) U/L Troponin I High Sens (<3.5-17.0) ng/L Total Protein 7.4 (6.5-8.0) g/dL Albumin 4.1 (3.5-5.0) g/dL COVID-19 ([facility]) (Negative) COVID-19 Clin Com 05/22/22 05/22/22 Range/Units 18:36 18:36 WBC (4.8-10.8) X10*3/uL RBC (4.20-5.50) X10*6/uL Hgb (12.0-16.0) g/dl Hct (37.0-47.0) % MCV (80.0-98.0) fL MCH (27.0-33.0) pg MCHC (31.0-35.0) g/dl RDW (11.0-16.0) % Plt Count (160-400) X10*3/uL MPV (9.4-12.3) fL Immature Gran % (Auto) (0.0-0.4) % Neut % (Auto) (45-73) % Lymph % (Auto) (20-40) % [place] % (Auto) (2-11) % Eos % (Auto) (0-4) % Baso % (Auto) (0-2) % Lymph # (Auto) (1.2-4.9) X10*3/uL [place] # (Auto) (0.1-1.2) X10*3/uL Eos # (Auto) (0.0-0.4) X10*3/uL Baso # (Auto) (0.0-0.2) X10*3/uL Abs Immat Gran (auto) (0.00-0.03) X10*3/uL Absolute Neuts (auto) (2.0-8.3) x10*3/uL Absolute Nucleated RBC (0.0-0.012) X10*3/uL Nucleated RBC % (auto) (0.0-0.2) /100WBC PT (10.0-13.1) SEC INR (0.9-1.1) Sodium (135-145) mmol/L Potassium (3.3-5.1) mmol/L Chloride (96-108) mmol/L Carbon Dioxide (22-29) mmol/L Anion Gap (12-20) BUN (9-16) mg/dL Creatinine (0.5-1.4) mg/dL Estim Creat Clear Calc Estimated GFR Random Glucose (60-115) mg/dL Calcium (8.4-10.2) mg/dL Total Bilirubin (0.0-1.0) mg/dL AST (5-31) U/L ALT (0-31) U/L Alkaline Phosphatase (39-117) U/L Troponin I High Sens < 3.5 (<3.5-17.0) ng/L Total Protein (6.5-8.0) g/dL Albumin (3.5-5.0) g/dL COVID-19 ([facility]) Negative (Negative) COVID-19 Clin Com See Note <SHALOM Tinoco - Last Filed: 06/04/22 11:41> Lab Results 05/22/22 05/22/22 05/22/22 Range/Units 18:36 18:36 18:36 WBC 10.1 (4.8-10.8) X10*3/uL RBC 4.61 (4.20-5.50) X10*6/uL Hgb 14.2 (12.0-16.0) g/dl Hct 42.7 (37.0-47.0) % MCV 92.6 (80.0-98.0) fL MCH 30.8 (27.0-33.0) pg MCHC 33.3 (31.0-35.0) g/dl RDW 13.9 (11.0-16.0) % Plt Count 312 (160-400) X10*3/uL MPV 9.6 (9.4-12.3) fL Immature Gran % (Auto) 0.6 H (0.0-0.4) % Neut % (Auto) 63.9 (45-73) % Lymph % (Auto) 26.6 (20-40) % [place] % (Auto) 6.3 (2-11) % Eos % (Auto) 2.1 (0-4) % Baso % (Auto) 0.5 (0-2) % Lymph # (Auto) 2.7 (1.2-4.9) X10*3/uL [place] # (Auto) 0.6 (0.1-1.2) X10*3/uL Eos # (Auto) 0.2 (0.0-0.4) X10*3/uL Baso # (Auto) 0.1 (0.0-0.2) X10*3/uL Abs Immat Gran (auto) 0.06 H (0.00-0.03) X10*3/uL Absolute Neuts (auto) 6.5 (2.0-8.3) x10*3/uL Absolute Nucleated RBC 0.000 (0.0-0.012) X10*3/uL Nucleated RBC % (auto) 0.0 (0.0-0.2) /100WBC PT 9.8 L (10.0-13.1) SEC INR 0.9 (0.9-1.1) Sodium 139 (135-145) mmol/L Potassium 3.8 (3.3-5.1) mmol/L Chloride 105 (96-108) mmol/L Carbon Dioxide 23 (22-29) mmol/L Anion Gap 15 (12-20) BUN 21 H (9-16) mg/dL Creatinine 0.71 (0.5-1.4) mg/dL Estim Creat Clear Calc 115.6 Estimated GFR > 60 Random Glucose 124 H (60-115) mg/dL Calcium 9.4 (8.4-10.2) mg/dL Total Bilirubin 0.3 (0.0-1.0) mg/dL AST 15 (5-31) U/L ALT 23 (0-31) U/L Alkaline Phosphatase 98 (39-117) U/L Troponin I High Sens (<3.5-17.0) ng/L Total Protein 7.4 (6.5-8.0) g/dL Albumin 4.1 (3.5-5.0) g/dL COVID-19 ([facility]) (Negative) COVID-19 Clin Com 05/22/22 05/22/22 Range/Units 18:36 18:36 WBC (4.8-10.8) X10*3/uL RBC (4.20-5.50) X10*6/uL Hgb (12.0-16.0) g/dl Hct (37.0-47.0) % MCV (80.0-98.0) fL MCH (27.0-33.0) pg MCHC (31.0-35.0) g/dl RDW (11.0-16.0) % Plt Count (160-400) X10*3/uL MPV (9.4-12.3) fL Immature Gran % (Auto) (0.0-0.4) % Neut % (Auto) (45-73) % Lymph % (Auto) (20-40) % [place] % (Auto) (2-11) % Eos % (Auto) (0-4) % Baso % (Auto) (0-2) % Lymph # (Auto) (1.2-4.9) X10*3/uL [place] # (Auto) (0.1-1.2) X10*3/uL Eos # (Auto) (0.0-0.4) X10*3/uL Baso # (Auto) (0.0-0.2) X10*3/uL Abs Immat Gran (auto) (0.00-0.03) X10*3/uL Absolute Neuts (auto) (2.0-8.3) x10*3/uL Absolute Nucleated RBC (0.0-0.012) X10*3/uL Nucleated RBC % (auto) (0.0-0.2) /100WBC PT (10.0-13.1) SEC INR (0.9-1.1) Sodium (135-145) mmol/L Potassium (3.3-5.1) mmol/L Chloride (96-108) mmol/L Carbon Dioxide (22-29) mmol/L Anion Gap (12-20) BUN (9-16) mg/dL Creatinine (0.5-1.4) mg/dL Estim Creat Clear Calc Estimated GFR Random Glucose (60-115) mg/dL Calcium (8.4-10.2) mg/dL Total Bilirubin (0.0-1.0) mg/dL AST (5-31) U/L ALT (0-31) U/L Alkaline Phosphatase (39-117) U/L Troponin I High Sens < 3.5 (<3.5-17.0) ng/L Total Protein (6.5-8.0) g/dL Albumin (3.5-5.0) g/dL COVID-19 ([facility]) Negative (Negative) COVID-19 Clin Com See Note <Maximiliano Phelps MD - Last Filed: 05/23/22 00:14> Discharge Plan Discharge Clinical Impression: Headache, migraine <SHALOM Tinoco - Last Filed: 06/04/22 11:41> Patient Disposition: Home, Self-Care <SHALOM Tinoco - Last Filed: 06/04/22 11:41> Instructions: Migraine Headache (ED) <SHALOM Tinoco - Last Filed: 06/04/22 11:41> Additional Instructions: Take Imitrex 1 tablet at onset of headache may repeat another tablet in 2 hours maximum 2 tablets in 24 hours Take Fioricet 1 tablet every 6 hours as needed for headache Follow-up with PCP <SHALOM Tinoco - Last Filed: 06/04/22 11:41> Prescriptions: New itaexmfgbr-tyvpevlzufjec-sbsd [Fioricet] 50-300-40 mg capsule 1 cap PO Q6H PRN (Reason: headache) Qty: 20 0RF No Action omalizumab [Xolair] 150 mg/mL syringe 300 mg subcut Q2W Qty: 4 11RF diclofenac sodium 75 mg tablet,delayed release (DR/EC) 75 mg PO BID Qty: 60 2RF amlodipine 10 mg tablet 10 mg PO DAILY Qty: 90 1RF albuterol sulfate [Ventolin HFA] 90 mcg/actuation HFA aerosol inhaler 2 puff inhalation Q4-6H PRN (Reason: shortness of breath or wheezing) 30 Days Qty: 1 6RF metoprolol tartrate 50 mg tablet See Rx Instructions PO .COMPLEX 90 Days Qty: 270 1RF Rx Instructions: Take 2 tablets in the morning and 1 tablet at night PO; ipratropium-albuterol 0.5 mg-3 mg(2.5 mg base)/3 mL solution for nebulization 3 ml inhalation Q4-6H PRN (Reason: wheezing) 30 Days Qty: 180 3RF Culturelle 15 billion cell capsule, sprinkle 1 cap PO DAILY 50 Days Qty: 50 2RF famotidine 20 mg tablet 20 mg PO BEDTIME PRN (Reason: for acid reflux) 30 Days Qty: 30 1RF sucralfate 1 gram tablet 1 g PO BID 30 Days Qty: 60 3RF fluticasone furoate-vilanterol [Breo Ellipta] 200-25 mcg/dose blister with device 1 inh inhalation DAILY 30 Days Qty: 60 6RF Incruse Ellipta 62.5 mcg/actuation blister with device 1 inh inhalation DAILY 30 Days Qty: 30 6RF cholecalciferol (vitamin D3) 50 mcg (2,000 unit) capsule 50 mcg PO DAILY 30 Days Qty: 30 11RF pantoprazole 40 mg tablet,delayed release (DR/EC) 40 mg PO QAM 30 Days Qty: 30 1RF levothyroxine 175 mcg tablet 175 mcg PO DAILY 5 Days Qty: 5 0RF docusate sodium 100 mg capsule 100 mg PO BID Qty: 60 0RF atorvastatin [Lipitor] 10 mg tablet 10 mg PO DAILY Qty: 30 4RF sumatriptan succinate [Imitrex] 50 mg tablet 50 mg PO .QD PRN (Reason: migraine headache) Qty: 10 11RF Rx Instructions: do not exceed 2 doses per 24 hrs prednisone 10 mg tablet 10 mg PO DAILY Qty: 30 0RF Rx Instructions: Take 4 tablets for 3 days then, Take 3 tablets for 3 days then, Take 2 tablets 3 days then, Take 1 tablet 3 days and stop magnesium citrate Solution 150 ml PO ONCE 1 Days Qty: 150 0RF pregabalin [Lyrica] 50 mg capsule See Rx Instructions .ROUTE .COMPLEX Qty: 53 1RF Rx Instructions: take 1 capsule (50mg) po at bedtime for 1 week, then increase to 1 capsule (50mg) po BID as tolerated. amitriptyline 25 mg tablet 50 mg PO BEDTIME 30 Days Qty: 60 2RF hydroxyzine HCl 25 mg tablet 25 mg PO TID PRN (Reason: for itch) Qty: 21 0RF clotrimazole-betamethasone 1-0.05 % cream 1 appl topical BID 5 Days Qty: 45 0RF clobetasol 0.05 % cream 1 appl topical BID 28 Days Qty: 45 1RF Rx Instructions: Then maintenance therapy for 2-3 times per week <SHALOM Tinoco - Last Filed: 06/04/22 11:41> Interventions: ED Discharge Assessment Last Done: 05/23/22 00:20 <SHALOM Tinoco - Last Filed: 06/04/22 11:41> Discharge Date/Time: 05/23/22 00:24 <SHALOM Tinoco - Last Filed: 06/04/22 11:41>
[2022-05-22 18:42] LABS: Basophils Absolute Auto 0.1 X10*3/uL (0.0-0.2); Basophils Percent Auto 0.5 % (0-2); Eosinophils Absolute Auto 0.2 X10*3/uL (0.0-0.4); Eosinophils Percent Auto 2.1 % (0-4); Hematocrit 42.7 % (37.0-47.0); Hemoglobin 14.2 g/dl (12.0-16.0); Imm Gran Abs Auto 0.06 X10*3/uL (0.00-0.03); Imm Gran Pct Auto 0.6 % (0.0-0.4); Lymphocytes Absolute Auto 2.7 X10*3/uL (1.2-4.9); Lymphocytes Percent Auto 26.6 % (20-40); MANUAL DIFF FLAG NO; Mean Corpuscular HGB Conc 33.3 g/dl (31.0-35.0); Mean Corpuscular Hemoglobin 30.8 pg (27.0-33.0); Mean Corpuscular Volume 92.6 fL (80.0-98.0); Mean Platelet Volume 9.6 fL (9.4-12.3); Monocytes Absolute Auto 0.6 X10*3/uL (0.1-1.2); Monocytes Percent Auto 6.3 % (2-11); Neutrophils Absolute Auto 6.5 x10*3/uL (2.0-8.3); Neutrophils Percent Auto 63.9 % (45-73); Platelet Count 312 X10*3/uL (160-400); Red Blood Count 4.61 X10*6/uL (4.20-5.50); Red Cell Distribution Width 13.9 % (11.0-16.0); White Blood Count 10.1 X10*3/uL (4.8-10.8)
[2022-05-22 18:48] LABS: INTERNATIONAL NORM RATIO 0.9 (0.9-1.1); Prothrombin Time 9.8 SEC (10.0-13.1)
[2022-05-22 19:03] LABS: Alanine Aminotransferase 23 U/L (0-31); Albumin Level 4.1 g/dL (3.5-5.0); Alkaline Phosphatase 98 U/L (39-117); Anion Gap 15 (12-20); Aspartate Amino Transferase 15 U/L (5-31); Bilirubin Total 0.3 mg/dL (0.0-1.0); Blood Urea Nitrogen 21 mg/dL (9-16); Calcium 9.4 mg/dL (8.4-10.2); Carbon Dioxide 23 mmol/L (22-29); Chloride 105 mmol/L (96-108); Creatinine Clr Calc Pharmacy 115.6; Estimated Glomerular Filt Rate > 60; Glucose Random 124 mg/dL (60-115); Potassium 3.8 mmol/L (3.3-5.1); Sodium 139 mmol/L (135-145); Total Protein 7.4 g/dL (6.5-8.0)
[2022-05-22 19:07] LABS: COVID-19 Test Negative (Negative); IDNOW Serial# BCCEAD1C
[2022-05-22 19:16] LABS: Troponin-I High Sensitivity < 3.5 ng/L (<3.5-17.0)
[2022-05-22 22:00] VITALS: BP 135/93; PULSE 100; RESP 16; TEMP 36.8; O2SAT 97
[2022-05-22] MEDS: Butalb/Acetamin/Caff 50/325/40 TABLET 1 TAB PO (22:32)
[2022-05-22] MEDS: SUMAtriptan succinate 6 MG/0.5 ML VIAL SUBCUT (22:33)
--- NOTE | 2022-05-22 22:37 | PC.NURSE ---
pt a&o, denies any sob or chest pain, pt medicated per Mar. Light turn down and door closed for comfort.
--- NOTE | 2022-05-22 23:22 | PC.NURSE ---
pt pain level 10/10 still, provider to assess pt. Will medicated per order.
[2022-05-22] MEDS: Ibuprofen 600 MG TABLET PO (23:38)
[2022-05-23] VITALS: BP 150/94; PULSE 97; RESP 16; TEMP 36.8; O2SAT 98
--- NOTE | 2022-05-23 00:14 | MHC.EDTECH ---
pt 0000 rounding done ,vitals sign taken ,pt waiting for discharged paper work .
== END 2022-05-23 00:24 | disposition home or self-care (01) ==
PROVIDERS: Emergency Provider Internal Medicine; PCP Internal Medicine
DX: G43.909 Migraine, unspecified, not intractable, without status migrainosus (principal); R07.89 Other chest pain; I10 Essential (primary) hypertension; F17.210 Nicotine dependence, cigarettes, uncomplicated; Z20.822 Contact with and (suspected) exposure to COVID-19; Z20.828 Contact with and (suspected) exposure to other viral communicable diseases; Z71.6 Tobacco abuse counseling
CPT/HCPCS: 80053; 84484; 85025; 85610; 87635; 93005; 99284; J3030

== ENCOUNTER → 2022-05-24 11:17 | Outpatient (BNVA) | payer OTHER, SELFPAY | PROVIDERS: PCP Internal Medicine; Visit Provider Obstetrics & Gynecology | DX: L28.0 Lichen simplex chronicus (principal); B37.2 Candidiasis of skin and nail | CPT/HCPCS: 99212 ==

== ENCOUNTER 2022-05-24 15:01 | Outpatient (REF) | payer OTHER, SELFPAY | END 2022-05-24 15:02 | disposition home or self-care (01) | LOC: HO.MDS 15:01 | PROVIDERS: Visit Provider Internal Medicine Pulmonary Disease | DX: J45.50 Severe persistent asthma, uncomplicated (principal) | CPT/HCPCS: 96372; J2357 ==

== ENCOUNTER 2022-06-07 09:02 | Outpatient (REF) | payer OTHER, SELFPAY | END 2022-06-07 09:03 | disposition home or self-care (01) | LOC: HO.MDS 09:02 | PROVIDERS: Visit Provider Internal Medicine Pulmonary Disease | DX: J45.50 Severe persistent asthma, uncomplicated (principal) | CPT/HCPCS: 96372; J2357 ==

== ENCOUNTER 2022-06-21 09:04 | Outpatient (REF) | payer OTHER, SELFPAY | END 2022-06-21 09:05 | disposition home or self-care (01) | LOC: HO.MDS 09:04 | PROVIDERS: Visit Provider Internal Medicine Pulmonary Disease | DX: J45.50 Severe persistent asthma, uncomplicated (principal) | CPT/HCPCS: 96372; J2357 ==

== ENCOUNTER → 2022-06-27 11:01 | Outpatient (BNVA) | payer OTHER, SELFPAY | PROVIDERS: PCP Internal Medicine; Visit Provider Obstetrics & Gynecology | DX: L28.0 Lichen simplex chronicus (principal) | CPT/HCPCS: 99212 ==

== ENCOUNTER 2022-07-05 09:02 | Outpatient (REF) | payer OTHER, SELFPAY | END 2022-07-05 09:03 | disposition home or self-care (01) | LOC: HO.MDS 09:02 | PROVIDERS: Visit Provider Internal Medicine Pulmonary Disease | DX: J45.50 Severe persistent asthma, uncomplicated (principal) | CPT/HCPCS: 96372; J2357 ==

== ENCOUNTER 2022-08-18 13:34 | Outpatient (REF) | payer OTHER, SELFPAY | END 2022-08-18 13:35 | disposition home or self-care (01) | LOC: HO.MDS 13:34 | PROVIDERS: Visit Provider Internal Medicine Pulmonary Disease | DX: J45.50 Severe persistent asthma, uncomplicated (principal) | CPT/HCPCS: 96372; J2357 ==

== ENCOUNTER → 2022-08-21 09:20 | Outpatient (BNVA) | payer OTHER, SELFPAY | PROVIDERS: PCP Internal Medicine; Visit Provider Internal Medicine ==

== ENCOUNTER 2022-09-21 10:33 | Outpatient (REF) | payer OTHER, SELFPAY | END 2022-09-21 10:34 | disposition home or self-care (01) | LOC: HO.MDS 10:33 | PROVIDERS: Visit Provider Internal Medicine Pulmonary Disease | DX: J45.50 Severe persistent asthma, uncomplicated (principal) | CPT/HCPCS: 96372; J2357 ==

== ENCOUNTER 2022-09-28 11:44 | Outpatient (AMB) | payer OTHER, SELFPAY ==
[2022-09-28 11:46] VITALS: BP 132/90; PULSE 71; O2SAT 95; BMI 40.0
--- NOTE | 2022-09-28 11:46 | A.OFFPC_ITS ---
Vital Signs 09/28/22 11:46 Height 5 ft 6 in Weight 248 lb BMI 40.0 BP 132/90 H Blood Pressure Location Lt brachial Position Sitting Pulse 71 Pulse Source Pulse Oximeter Temp Source Skin Pulse Oximetry (%) 95 Oxygen Delivery Method Room Air Intake Visit Reasons: 3M F/U Hypercholesterolemia, migraine Management Scientist Required: No Allergies pineapple [PINEAPPLE] Allergy (Severe, Verified 09/28/22 12:09) ANAPHYLAXIS adhesive tape Allergy (Intermediate, Verified 09/28/22 12:09) Blister Iodinated Contrast Media [IV Dye, Iodine Containing] Allergy (Intermediate, Verified 09/28/22 12:09) SOB,RASH levofloxacin [From Levaquin] Allergy (Intermediate, Verified 09/28/22 12:09) swelling/rash oxycodone [From Percocet] Allergy (Intermediate, Verified 09/28/22 12:09) rash/SOB aspirin [ASA] Adverse Reaction (Mild, Verified 09/28/22 12:09) UPSET STOMACH Medication List - Last Reconciled 09/28/22 by NIKHIL Castaneda amitriptyline 50 mg (2 x 25 mg) PO BEDTIME 30 days amlodipine 10 mg PO DAILY atorvastatin (Lipitor) 10 mg PO DAILY rjzinqumlv-fiprprleofqyf-jtbf 50-300-40 mg (Fioricet) 1 cap PO Q6H PRN cholecalciferol (vitamin D3) 50 mcg PO DAILY 30 days clobetasol 0.05% 1 appl topical BID 4 weeks clotrimazole-betamethasone 1-0.05 % 1 appl topical BID 5 days diclofenac sodium 75 mg PO BID docusate sodium 100 mg PO BID famotidine 20 mg PO BEDTIME PRN 30 days fluticasone furoate-vilanterol 200-25 mcg/dose (Breo Ellipta) 1 inh inhalation DAILY 30 days hydroxyzine HCl 25 mg PO TID PRN ipratropium-albuterol 0.5 mg-3 mg(2.5 mg base)/3 mL 3 mL inhalation Q4-6H PRN levothyroxine 175 mcg PO DAILY 5 days magnesium citrate 150 mL PO ONCE 1 day metoprolol tartrate Take 2 tablets in the morning and 1 tablet at night PO; 90 days omalizumab (Xolair) 300 mg (2 mL) subcut Q2W pantoprazole 40 mg PO QAM 30 days polyethylene glycol 3350 (Gavilax) 17 grams PO BID 60 days pregabalin (Lyrica) take 1 capsule (50mg) po at bedtime for 1 week, then increase to 1 capsule (50mg) po BID as tolerated. sucralfate 1 g PO BID 30 days sumatriptan succinate (Imitrex) 50 mg PO .QD PRN umeclidinium 62.5 mcg/actuation (Incruse Ellipta) 1 inh inhalation DAILY 30 days Ventolin HFA 90 mcg/actuation (albuterol sulfate) 2 puffs inhalation Q4-6H PRN 30 days NS Tobacco use date assessed: 09/28/22 Dental Screening Dental Screen Date: 09/28/22 Did you have a dental visit in the last 12 months?: Yes Did you have a dental problem in the last 6 months where you did not have access to dental care?: No Was dental information given to patient?: Patient has dentist HPI 3M F/U Hypercholesterolemia, migraine HPI Details Patient is a 52-year-old female who presents today for a routine follow-up. Patient of Dr. Junior. Medical history significant for fibromyalgia, asthma, hypertension, hypercholesterolemia, GERD, obesity, migraine among o thers. Patient reports that she is compliant with medications and denies side effects. Patient was encouraged to complete blood work that was ordered by PCP. In addition, patient reports right elbow pain for the past 3 weeks, she reports receiving shots into her right elbow for tendinitis in the past, she reports that pain is constant. She did try Tylenol with no much improvement in pain. Denies injury. PENDING SALE TO [facility] Medical History Abdominal bloating Abnormal finding on EKG Allergic rhinitis Asthma Chronic constipation Colitis Constipation Diarrhea Diarrhea Dysphagia Esophageal spasm Fall Fibromyalgia GERD (gastroesophageal reflux disease) History of migraine headaches History of TIA (transient ischemic attack) Hx of flexible sigmoidoscopy Hypercholesterolemia Hypertension Hypertensive urgency Hypothyroidism IBS (irritable bowel syndrome) Internal derangement of right shoulder Kidney stones Lateral epicondylitis of both elbows Lump of axillary tail of right breast Lump of left breast Lump of right breast Multinodular thyroid Ovarian cyst Pancreatic cyst Rectal bleeding Right forearm pain Rotator cuff impingement syndrome Rotator cuff impingement syndrome of left shoulder Sciatic nerve pain Tendinopathy of left rotator cuff Thyroid nodule Vitamin D deficiency Well woman exam Surgical History H/O lithotripsy H/O: hysterectomy History of arthroscopic surgery of shoulder History of breast lump/mass excision History of cholecystectomy (~2003) History of colonoscopy (~11/16/19) History of esophagogastroduodenoscopy (EGD) History of kidney surgery History of thyroidectomy (~11/2018) Hx of appendectomy Hx of bilateral breast reduction surgery Hx of eye surgery Hx of hemorrhoidectomy Hx of tubal ligation Family History Father Family history of high blood pressure History of high cholesterol Mother History of diabetes mellitus Family history of high blood pressure Family history of asthma History of fibromyalgia Liver disease Social History Household Members: None Housing: House Are you a primary urgent care physician assistant to a significant other at home: No Do you presently have visiting nurse or other home services: No Alcohol intake: never Patient Tobacco Use Status: Former Tobacco user Quit Date: 2013 Tobacco use type: Cigarette Years Smoked: 3 e-Cigarette/Vaping Use: Never Used Second Hand Smoke Exposure: No Substance Use Type: Marijuana service: No Current occupational status: disabled Current occupation: right handed Cognitive needs: No Hearing needs: No Vision needs: Yes Female Reproductive History Menstrual Age of Menarche: 14 Questionnaire Thrive Questionnaire Date Thrive assessed: 05/10/22 AUDIT C Alcohol Use Questionnaire (AUDIT-C) 1. How often do you have a drink containing alcohol?: Never Total Score: 0 Score Reviewed/Action Taken: No INDRA-7 AMB Questionnaire INDRA-7 Date INDRA - 7 assessed: 04/19/22 Source: Developed by Drs. Rainer Caldwell, Ashanti Malone, Hank Dewitt and colleagues, with an educational mayco from [employer]. Review of Systems Const Denies body aches, Denies chills, Denies fever(s) and Denies headache(s) Eyes Denies change in vision ENT Denies dizziness, Denies otalgia, Denies headache(s), Denies nasal discharge, Denies sinus pain and Denies sore throat Card Denies chest pain, Denies edema, Denies lightheadedness and Denies dyspnea Resp Denies cough, Denies dyspnea and Denies wheezing GI Denies constipation, Denies diarrhea, Denies nausea and Denies vomiting Denies dysuria Musc Denies myalgias and Reports arthralgias Skin/Breast Denies rash Neuro Denies dizziness and Denies headache(s) Aller/Immun Denies wheezing Physical exam (Primary Care) Vital Signs: Last Vital Signs Pulse 71 09/28/22 11:46 BP 132/90 H 09/28/22 11:46 Pulse Ox 95 09/28/22 11:46 Oxygen Delivery Method Room Air 09/28/22 11:46 BMI result Body Mass Index 40.0 Tobacco/Smoking Status: Tobacco use Status Tobacco use date assessed 09/28/22 09/28/22 11:47 Patient Tobacco Use Status Former Tobacco user 09/28/22 11:47 Tobacco use type Cigarette 09/28/22 11:47 e-Cigarette/Vaping Use Never Used 09/28/22 11:47 Thrive Assessment: Date of Thrive Assessment Date Thrive assessed 05/10/22 09/28/22 11:47 Const General: cooperative and no acute distress Orientation/consciousness: patient oriented x3 HENMT Head: Yes normocephalic and Yes atraumatic Face and sinus: Yes sinuses nontender Mouth: oropharynx normal and moist mucous membranes Throat: Yes posterior oropharynx normal Eyes General: appearance normal, both eyes and all related structures Neck Neck: Yes normal visual inspection and Yes full ROM Resp Effort & Inspection: normal respiratory effort and able to speak in complete sentences Auscultation: clear to auscultation bilaterally, no crackles, no rales, no rhonchi and no wheezes Cardio Rate: regular rate Rhythm: regular rhythm Heart sounds: S1 normal heart sound present and S2 normal heart sound present Peripheral pulses: radial pulses present on the right GI Auscultation: normal bowel sounds Skin General skin exam: no rashes or lesions noted Neuro General: patient oriented x3 Gait exam (Neuro): Normal gait present Extrem General: Yes full ROM and No edema Right upper extremity: elbow/forearm Details: normal to inspection, tenderness (Posterior aspect), swelling (Very mild posterior aspect) and normal ROM; no unusual warmth, no ecchymosis and no crepitus Assessment and Plan Assessment & Plan (1) Right elbow pain: Code(s): M25.521 - Pain in right elbow Plan: Patient did have right elbow x-ray which was normal in 2020 Will refer to occupational therapy Will treat with diclofenac b.i.d. p.r.n. Follow-up if no improvement after OT (2) Migraine: Code(s): G43.909 - Migraine, unspecified, not intractable, without status migrainosus Plan: Stable with current medications Continue to follow-up with neurology (3) Hypercholesterolemia: Comment: no RX Code(s): E78.00 - Pure hypercholesterolemia, unspecified Plan: Patient was encouraged to complete her blood work Continue atorvastatin 10 mg daily Low-cholesterol diet and weight loss (4) Hypertension: Code(s): I10 - Essential (primary) hypertension Qualifiers: Hypertension type: essential hypertension Qualified Code(s): I10 - Essential (primary) hypertension Plan: Goal BP equal or less than 140/90 Continue amlodipine Low-sodium diet and weight loss (5) Obesity: Code(s): E66.9 - Obesity, unspecified Plan: Healthy food choices and exercise as tolerated Orders: Orders OT Evaluation and Treatment Today M25.521 - Pain in right elbow Medications: Changed From diclofenac sodium 75 mg PO BID 60 tabs 2RF M17.11 - Unilateral primary osteoarthritis, right knee, M75.40 - Impingement syndrome of unspecified shoulder To diclofenac sodium 75 mg PO BID PRN 60 tabs 0RF pain M17.11 - Unilateral primary osteoarthritis, right knee, M75.40 - Impingement syndrome of unspecified shoulder Coding Level of Care Code Est Pt Level 4 (76252) Diagnoses Right elbow pain M25.521 Migraine G43.909 Hypercholesterolemia E78.00 Hypertension I10 Hypertension type: essential hypertension Obesity E66.9
== END 2022-09-28 12:30 | disposition home or self-care (01) ==
PROVIDERS: PCP Internal Medicine; Visit Provider Nurse Practitioner Family
DX: M25.521 Pain in right elbow (principal); G43.909 Migraine, unspecified, not intractable, without status migrainosus; E78.00 Pure hypercholesterolemia, unspecified; I10 Essential (primary) hypertension; E66.9 Obesity, unspecified
CPT/HCPCS: 99214

== ENCOUNTER 2022-10-04 09:27 | Outpatient (REF) | payer OTHER, SELFPAY ==
[2022-10-04 11:24] LABS: Alanine Aminotransferase 19 U/L (0-31); Albumin Level 4.1 g/dL (3.5-5.0); Alkaline Phosphatase 68 U/L (39-117); Anion Gap 13 (12-20); Aspartate Amino Transferase 14 U/L (5-31); Bilirubin Total 0.4 mg/dL (0.0-1.0); Blood Urea Nitrogen 12 mg/dL (9-16); Calcium 9.7 mg/dL (8.4-10.2); Carbon Dioxide 26 mmol/L (22-29); Chloride 106 mmol/L (96-108); Cholesterol 186 mg/dL; Estimated Glomerular Filt Rate > 60; Glucose Random 97 mg/dL (60-115); HDL Cholesterol 54 mg/dL; LDL Cholesterol Calculated 115 mg/dl; Potassium 3.6 mmol/L (3.3-5.1); Sodium 141 mmol/L (135-145); Total Protein 8.1 g/dL (6.5-8.0); Triglycerides 87 mg/dL
[2022-10-04 11:38] LABS: Free T4 (Free Thyroxine) 0.98 ng/dL (0.71-1.85)
== END 2022-10-04 09:28 | disposition home or self-care (01) ==
LOC: HO.LAB 09:27
PROVIDERS: Absent Provider Internal Medicine; PCP Internal Medicine; Visit Provider Internal Medicine
DX: E78.00 Pure hypercholesterolemia, unspecified (principal); E04.2 Nontoxic multinodular goiter; E89.0 Postprocedural hypothyroidism
CPT/HCPCS: 36415; 80053; 80061; 84439; 84443

== ENCOUNTER 2022-10-11 08:01 | Outpatient (REF) | payer OTHER, SELFPAY | END 2022-10-11 08:02 | disposition home or self-care (01) | LOC: HO.MDS 08:01 | PROVIDERS: Visit Provider Internal Medicine Pulmonary Disease | DX: J45.50 Severe persistent asthma, uncomplicated (principal) | CPT/HCPCS: 96372; J2357 ==

== ENCOUNTER 2022-11-13 08:21 | Outpatient (REF) | payer OTHER, SELFPAY | END 2022-11-13 08:22 | disposition home or self-care (01) | LOC: HO.MDS 08:21 | PROVIDERS: PCP Internal Medicine; Visit Provider Internal Medicine Pulmonary Disease | DX: J45.50 Severe persistent asthma, uncomplicated (principal) | CPT/HCPCS: 96372; J2357 ==

== ENCOUNTER 2022-11-21 14:35 | Outpatient (AMB) | payer OTHER, SELFPAY ==
[2022-11-21 14:39] VITALS: BP 132/97; PULSE 115; O2SAT 96; BMI 39.1
--- NOTE | 2022-11-21 14:39 | A.OFFVIS_ITS ---
Intake Vital Signs 11/21/22 14:39 Height 5 ft 6 in Weight 242 lb 8.136 oz BMI 39.1 BP 132/97 H Blood Pressure Location Lt brachial Position Sitting Pulse 115 H Pulse Source Doppler Pulse Oximetry (%) 96 Oxygen Delivery Method Room Air Intake Visit Reasons: Asthma Allergies pineapple [PINEAPPLE] Allergy (Severe, Verified 11/21/22 14:41) ANAPHYLAXIS adhesive tape Allergy (Intermediate, Verified 11/21/22 14:41) Blister Iodinated Contrast Media [IV Dye, Iodine Containing] Allergy (Intermediate, Verified 11/21/22 14:41) SOB,RASH levofloxacin [From Levaquin] Allergy (Intermediate, Verified 11/21/22 14:41) swelling/rash oxycodone [From Percocet] Allergy (Intermediate, Verified 11/21/22 14:41) rash/SOB aspirin [ASA] Adverse Reaction (Mild, Verified 11/21/22 14:41) UPSET STOMACH HPI Asthma HPI Details 52-year-old lady with underlying severe persistent allergic asthma and environmental allergies she has been using Xolair, Symbicort and albuterol MDI, with good control of her underlying symptoms. She denies any recent exacerbations. Today she does complain of approximately 1 month history of slowly worsening orthopnea, paroxysmal nocturnal dyspnea, and some leg edema. [facility] Medical History Abdominal bloating Abnormal finding on EKG Allergic rhinitis Asthma Chronic constipation Colitis Constipation Diarrhea Diarrhea Dysphagia Esophageal spasm Fall Fibromyalgia GERD (gastroesophageal reflux disease) History of migraine headaches History of TIA (transient ischemic attack) Hx of flexible sigmoidoscopy Hypercholesterolemia Hypertension Hypertensive urgency Hypothyroidism IBS (irritable bowel syndrome) Internal derangement of right shoulder Kidney stones Lateral epicondylitis of both elbows Lump of axillary tail of right breast Lump of left breast Lump of right breast Multinodular thyroid Ovarian cyst Pancreatic cyst Rectal bleeding Right forearm pain Rotator cuff impingement syndrome Rotator cuff impingement syndrome of left shoulder Sciatic nerve pain Tendinopathy of left rotator cuff Thyroid nodule Vitamin D deficiency Well woman exam Surgical History H/O lithotripsy H/O: hysterectomy History of arthroscopic surgery of shoulder History of breast lump/mass excision History of cholecystectomy (~2003) History of colonoscopy (~11/16/19) History of esophagogastroduodenoscopy (EGD) History of kidney surgery History of thyroidectomy (~11/2018) Hx of appendectomy Hx of bilateral breast reduction surgery Hx of eye surgery Hx of hemorrhoidectomy Hx of tubal ligation Family History Father Family history of high blood pressure History of high cholesterol Mother History of diabetes mellitus Family history of high blood pressure Family history of asthma History of fibromyalgia Liver disease Social History Household Members: None Housing: House Are you a primary career counselor to a significant other at home: No Do you presently have visiting nurse or other home services: No Alcohol intake: never Patient Tobacco Use Status: Former Tobacco user Quit Date: 2013 Tobacco use type: Cigarette Years Smoked: 3 e-Cigarette/Vaping Use: Never Used Second Hand Smoke Exposure: No Substance Use Type: Marijuana service: No Current occupational status: disabled Current occupation: right handed Cognitive needs: No Hearing needs: No Vision needs: Yes Female Reproductive History Menstrual Age of Menarche: 14 Review of Systems Const Denies daytime sleepiness, Denies excessive sweating, Denies fatigue, Denies fever(s), Denies lethargy, Denies malaise, Denies night sweats, Denies snoring and Denies weight loss Eyes Denies blurry vision and Denies itchy eyes ENT Denies nasal congestion, Denies post nasal drip, Denies sinus pain, Denies sinus pressure and Denies other ( Thrush) Card Denies chest pain, Denies pedal edema, Denies dyspnea, Denies orthopnea and Denies paroxysmal nocturnal dyspnea Resp Denies cough, Denies hemoptysis, Denies excessive phlegm production, Denies dyspnea, Denies snoring and Denies wheezing GI Denies abdominal pain and Denies heartburn Musc Denies myalgias, Denies arthralgias and Denies joint swelling Skin/Breast Denies rash Neuro Denies memory loss and Denies seizure-like activity Psych Denies abnormal sleep pattern, Denies anxiety and Denies memory loss Endo Denies excessive sweating, Denies fatigue and Denies heat intolerance Chuy/Lymph Denies easy bruising Aller/Immun Denies itchy eyes, Denies seasonal rhinorrhea and Denies wheezing Physical Exam Vital Signs: Last Vital Signs Pulse 115 H 11/21/22 14:39 BP 132/97 H 11/21/22 14:39 Pulse Ox 96 11/21/22 14:39 Oxygen Delivery Method Room Air 11/21/22 14:39 BMI result Body Mass Index 39.1 Const General: no acute distress and alert Nutritional Appearance: obese Orientation/consciousness: Other orientation findings ( oriented) HEENT Head: Yes atraumatic Eyes General: appearance normal, both eyes and all related structures Sclerae: sclerae normal EOM: EOMs intact bilaterally Neck Neck: Yes supple Lymphatic: no lymphadenopathy noted Resp Effort & Inspection: normal respiratory effort and no use of accessory muscles Auscultation: clear to auscultation bilaterally Cardio Rate: regular rate Rhythm: regular rhythm Heart sounds: no gallops, no murmurs and no rubs Skin General skin exam: other ( warm) Extrem General: No clubbing, No cyanosis and No edema Assessment & Plan Assessment & Plan (1) Asthma: Code(s): J45.909 - Unspecified asthma, uncomplicated Qualifiers: Asthma severity: severe Asthma persistence: persistent Asthma complication type: unspecified Qualified Code(s): J45.50 - Severe persistent asthma, uncomplicated Plan: Well controlled on current regimen of Breo, albuterol MDI, and Xolair. Continue current regimen. (2) Environmental allergies: Code(s): Z91.09 - Other allergy status, other than to drugs and biological substances Plan: Well controlled on Xolair. Continue current regimen. (3) PND (paroxysmal nocturnal dyspnea): Code(s): R06.00 - Dyspnea, unspecified Plan: Patient with slowly worsening orthopnea, paroxysmal nocturnal dyspnea, and some lower extremity edema. Patient has been advised to discuss follow-up with her primary care provider later this week. Coding Level of Care Code Est Pt Level 4 (06785) Diagnoses Severe persistent asthma, unspecified whether complicated J45.50 Asthma severity: severe Asthma persistence: persistent Asthma complication type: unspecified Environmental allergies Z91.09 PND (paroxysmal nocturnal dyspnea) R06.00
== END 2022-11-21 15:03 | disposition home or self-care (01) ==
PROVIDERS: PCP Internal Medicine; Visit Provider Internal Medicine Pulmonary Disease
DX: J45.50 Severe persistent asthma, uncomplicated (principal); Z91.09 Other allergy status, other than to drugs and biological substances; R06.00 Dyspnea, unspecified
CPT/HCPCS: 99214

== ENCOUNTER → 2022-11-21 14:35 | Outpatient (BNVA) | payer OTHER, SELFPAY | PROVIDERS: PCP Internal Medicine; Visit Provider Internal Medicine Pulmonary Disease | DX: J45.50 Severe persistent asthma, uncomplicated (principal); R06.00 Dyspnea, unspecified; Z91.09 Other allergy status, other than to drugs and biological substances | CPT/HCPCS: 99212 ==

== ENCOUNTER 2022-11-27 10:25 | Outpatient (REF) | payer OTHER, SELFPAY | END 2022-11-27 10:26 | disposition home or self-care (01) | LOC: HO.MDS 10:25 | PROVIDERS: Visit Provider Internal Medicine Pulmonary Disease | DX: J45.50 Severe persistent asthma, uncomplicated (principal) | CPT/HCPCS: 96372; J2357 ==

== ENCOUNTER 2022-11-30 13:30 | Outpatient (AMB) | payer OTHER, SELFPAY ==
--- NOTE | 2022-11-30 13:31 | MHC.OFFVIS ---
Intake Vital Signs 11/30/22 13:35 Height 5 ft 6 in Weight 240 lb 4.862 oz BMI 38.8 BP 146/97 H Blood Pressure Location Lt brachial Position Sitting Pulse 87 Intake Visit Reasons: abdominal pain Intake Note: Gloria presents in the office as a follow up patient for abdominal pains. CC: She is having issues - she states she has issues with her thyroid. She is having issues with taking that medication and was told to take it with the stomach medications. 2 months ago she stopped taking her Pantoprazole and now she is unable to drink or eat anything. She is having severe pains in her stomach and severe acid reflux. She is scared because her hair has been falling out as well. Allergies pineapple [PINEAPPLE] Allergy (Severe, Verified 11/30/22 13:35) ANAPHYLAXIS adhesive tape Allergy (Intermediate, Verified 11/30/22 13:35) Blister Iodinated Contrast Media [IV Dye, Iodine Containing] Allergy (Intermediate, Verified 11/30/22 13:35) SOB,RASH levofloxacin [From Levaquin] Allergy (Intermediate, Verified 11/30/22 13:35) swelling/rash oxycodone [From Percocet] Allergy (Intermediate, Verified 11/30/22 13:35) rash/SOB aspirin [ASA] Adverse Reaction (Mild, Verified 11/30/22 13:35) UPSET STOMACH Medication List - Last Reconciled 11/30/22 by Sky Horton MD amitriptyline 50 mg (2 x 25 mg) PO BEDTIME 30 days amlodipine 10 mg PO DAILY atorvastatin (Lipitor) 10 mg PO DAILY budesonide-formoterol 160-4.5 mcg/actuation (Symbicort) 2 puffs inhalation BID wyyllaimma-pvorxgpvtspmy-scmz 50-300-40 mg (Fioricet) 1 cap PO Q6H PRN cholecalciferol (vitamin D3) 50 mcg PO DAILY 30 days clobetasol 0.05% 1 appl topical BID 4 weeks clotrimazole-betamethasone 1-0.05 % 1 appl topical BID 5 days diclofenac sodium 75 mg PO BID PRN docusate sodium 100 mg PO BID famotidine 20 mg PO BEDTIME PRN 30 days fluticasone furoate-vilanterol 200-25 mcg/dose (Breo Ellipta) 1 inh inhalation DAILY 30 days hydroxyzine HCl 25 mg PO TID PRN ipratropium-albuterol 0.5 mg-3 mg(2.5 mg base)/3 mL 3 mL inhalation Q4-6H PRN levothyroxine 175 mcg PO DAILY magnesium citrate 150 mL PO ONCE 1 day metoprolol tartrate Take 2 tablets in the morning and 1 tablet at night PO; 90 days omalizumab (Xolair) 300 mg (2 mL) subcut Q2W pantoprazole 40 mg PO QAM 30 days polyethylene glycol 3350 (Gavilax) 17 grams PO BID 60 days pregabalin (Lyrica) take 1 capsule (50mg) po at bedtime for 1 week, then increase to 1 capsule (50mg) po BID as tolerated. sucralfate 1 g PO BID 30 days sumatriptan succinate mg PO topiramate 50 mg PO BID umeclidinium 62.5 mcg/actuation (Incruse Ellipta) 1 inh inhalation DAILY 30 days Ventolin HFA 90 mcg/actuation (albuterol sulfate) 2 puffs inhalation Q4-6H PRN 30 days NS HPI abdominal pain HPI Details GI Clinic visit for this 52-year-old female for evaluation of diarrhea and abdominal bloating Pt had severe watery diarrhea which lasted for several weeks after her thyroid surgery. Pt was hospitalized at [facility] in 07/[address] with abd pain Abdominal CT scan showed a distended colon filled with fluid and stool with a slight caliber change of the distal sigmoid colon. The distal sigmoid colon appeared less dilated with a question of mild wall thickening suggestive of colitis.? Changes on CT scan a likely due to ischemic colitis versus IBD. LABS IN [facility]: 11/15 REVIEWED. ? Stool studies were negative for C Diff, calprotectin was normal and stool fat was elevated ? Stool electrolytes could not be performed since stool was formed ? Serum gastrin was elevated and normal on repeat testing after holding Omeprazole. ? IMAGING STUDIES: 03/16/22 BARIUM SWALLOW SHOWED: -Spontaneous gastroesophageal reflux to the level mid thoracic esophagus. -Bridging anterior osteophytes mid to lower cervical spine. Swelling function unremarkable. -No stricture, ulceration, or hiatal hernia. 01/[address] SCAN SHOWED: ? 2 mm small radiopaque calculi nonobstructive lower pole right kidney ? and mid pole left kidney. There are extrarenal kidney pelvises seen. ? Mild constipation without obstruction. No evidence of panniculitis or diverticulitis. Small hiatal hernia. ? Fatty lesion anterior body/tail of pancreas junction is stable. 02/15/2018:? ABD MRI SHOWED: Status post cholecystectomy.? No MRI evidence of intra or extrahepatic biliary obstruction, filling defects or stones. Pancreatic metrics incised are normal, no pancreatic mass found. ENDOSCOPIC STUDIES: 03/13/22 COLONOSCOPY SHOWED: Two small adenomatous polyps removed Moderate diverticulosis seen in the []colon Moderate hemorrhoids on retroflexed exam. Plan:? Repeat Colonoscopy in 5 yrs. 11/18/19 COLONOSCOPY SHOWED: ? No polyps were detected ? Random bx obtained from the colon ? Moderate diverticulosis seen in the sigmoid colon ? Moderate hemorrhoids on retroflexed exam. ? Plan: Patient has an appointment on 12/05/19 in the GI Clinic with Sky Horton M.D.-. ? Repeat Colonoscopy interval based on path results in 5 years if colon bxs are normal. ? BIOPSIES SHOWED: ? A. Colon, random, biopsy: Colonic mucosa within normal limits; negative for ? active, chronic or microscopic colitis. ? B. Rectum, biopsy: Colonic mucosa within normal limits; negative for active, chronic or microscopic colitis. ?09/2017 COLONOSCOPY SHOWED: ? Two adenomatous and one hyperplastic polyps removed ? Patchy erythmea in the descending colon - likely resolving infectious or ? ischemic colitis - possible source of rectal bleeding. ? Random biopsies obtained from the right and left colon which were normal. ? Mild diverticulosis seen in the sigmoid colon ? Small hemorrhoids on retroflexed exam. ? Plan: ? Patient has an appointment on 10/23/17 in the GI Clinic with Sky Horton M.D. ? Repeat Colonoscopy in 5 years if polyps are adenomatous ?02/04/19 EGD SHOWED: ? Esophagus: GE junction at 32 cms, small hiatal hernia 32 to 35 cms. A 1 cms focal ulcer at GE junction - likely healing MW tear or esophagitis due to GERD. ? Stomach: Moderate erythema with healing erosions in the gastric body and hemorrhagic erosions in the antrum. Biopsies were obtained. Grade 3 flap valve on retroflexed examination of the cardia. ? Duodenum: Normal bulb and descending duodenum. Biopsies obtained from 3rd part of duodenum to check for celiac sprue. BIOPSIES SHOWED: A. Small bowel, biopsy: Small bowel mucosa within normal limits; preserved villous architecture and no increase in intraepithelial lymphocytes. B. Stomach, antrum, biopsy: Gastric antral mucosa with mild chronic inactive gastritis; negative for Helicobacter pylori, intestinal metaplasia and dysplasia. C. Stomach, body, biopsy: Gastric body mucosa with mild chronic inactive gastritis; negative for Helicobacter pylori, intestinal metaplasia and dysplasia. D. Esophagus, proximal, biopsy: Squamous mucosa within normal limits; negative for inflammation, fungal organisms, intestinal metaplasia and dysplasia. TODAY'S VISIT: Gloria presents in the office as a follow up patient for abdominal pains. CC: She is having issues - she states she has issues with her thyroid. She is having issues with taking that medication and was told to take it with the stomach medications. 2 months ago she stopped taking her Pantoprazole and now she is unable to drink or eat anything. She is having severe pains in her stomach and severe acid reflux. She is scared because her hair has been falling out as well. Continues to have abdominal pain and bloating. Has a lot of abdominal pain. She was advised to take no medication for 2-3 hours after she takes her Levothyroxine and to take Pantoprazole later - and takes it at 2 pm. Complains of nausea and vomiting Has diarrhea with 4-5 watery stools per day - sometimes stool is like powder. Denies recent constipation. Had recurrent vomiting yesterday - containing white foamy saliva Notes increased burping, bloating and left sided abdominal pain. Seen by her billboard poster and advised she has fluid in her lungs PAST VISIT: When she goes to the bathroom to pee, she has the urge to defecate with passage of small dark stool. Still taking Omeprazole - Pantoprazole not available at the pharmacy yet - refill sent. Entire body hurts due to fibromyalgia. Started on a new medication for fibromyalgia Had 5 BMs yesterday - some bright red blood in the begining of the BM BMs also contained mucous. Then some dark stool 2 days before she was constipation with passage of hard stools Diarrhea before that. Abdominal bloating with visible distension Has been taking soup and crackers. Now taking some fruits and vegetables. Also notes dysphagia to solids and liquids - even drinking water. Continues to have heartburn - usually noon to 3 pm. Notes post prandial diarrhea since she had cholecystectomy several years ago. Phone conversation with the patient on 01/23/22: Has not been able to use the bathroom correctly Abdominal pain, a lot of diarrhea. Has abdominal pain whatever she eats. Also notes bloating. Has 6 to 7 watery BMs a day. Unable to schedule FU appt since she was in [place] after her Mom . Left sided abdominal pain and has lost 13 lbs. Has been taking her medications including her thyroid medications. Has tried teas. Able to sip apple juice and unable to tolerate water. Was having rectal bleeding 2-3 weeks ago (blood appeared separate from the stools) Denies any bleeding now. Unable to enjoy Thanksgiving dinner and was not able to eat. Denies recent antibiotic use. Pt advised to have stool test checked for GI pathogens. Patient follow up for abdominal bloating. Patient cc: Nauseas, abdominal pain/bloating, diarrhea/constipation. Denies any other GI issues. Had shoulder surgery for a rotator cuff tear and needs a shoulder replacement in the future. Continues to have constipation and diarrhea. Continues to have abdominal pain. Has incomplete evacuation. Had 10 BMs last week - Stool varies between soft to hard. 2 days a week, has less pain Taking medications and following her diet. Taking Miralax every 2 days and does not seem to be working. PAST VISIT Had a BM at 5 am this am - first BM was hard followed by diarrhea. Has constipation 3 times a week and diarrhea or soft stools rest of the time. Taking Dulcolax twice a day for constpation if she takes the pain medications. ?? ? Woke up at 3 am with abdominal pain and had the urge to have a BM - unable to go and felt the stool was stuck. ?? ? Has not used a suppository in the past. ?? ? Has diarrhea alternating with constipation or regular stools. Has a BM 2-3 times a week.? Takes Miralax every other day. ? Pt states Im still having the same sx and theyre getting worse. I did everything she told me to do and the pain is burning in my stomach. ? If i put anything in my stomach it feels like i ate at a buffet. Even if i drink it makes my stomach feel full. ? Not doing good. ? She went on a clear liquid diet for a day and took bisacodyl and Colyte -??[place] better after doing colon prep for a few days. ? Changed her eating habits - cut back on carbs and meats and drinking water constantly. ? No BMs for a 2-3 days.? Unable to go in the am. ? Pantera looks like she is . ? Has a BM in the afternoon which is like soft serve ice-cream or slimy and then has 1-2 additional BMs which are watery. ? Can have pain and the urge to use the bathroom - when she goes she passes either air, small amount of water or poop. ? Concerned that she is not emptying her rectum ? Avoids straining due to past surgery for hemorrhoids. ? Has abdominal pain.? Unable to eat too hot or too cold foods - eats food at room temperature ?PAST VISIT: ?Stool is different every day. ? Poop has a weird smell and sometimes smells like blood. ? Has 4 BMs a day - starts with hard stools followed by softer stool which become watery. ? ? ? Stool color varies from pale to dark and sometimes green. ? ? ? Has early satiety and nausea after eating ? Belly gets super bloated after eating. ? Hurts and belly gets awful. ? Has difficulty pushing the stool out and has stools have been more painful [facility] Medical History Abdominal bloating Abnormal finding on EKG Allergic rhinitis Asthma Chronic constipation Colitis Constipation Diarrhea Diarrhea Dysphagia Esophageal spasm Fall Fibromyalgia GERD (gastroesophageal reflux disease) History of migraine headaches History of TIA (transient ischemic attack) Hx of flexible sigmoidoscopy Hypercholesterolemia Hypertension Hypertensive urgency Hypothyroidism IBS (irritable bowel syndrome) Internal derangement of right shoulder Kidney stones Lateral epicondylitis of both elbows Lump of axillary tail of right breast Lump of left breast Lump of right breast Multinodular thyroid Ovarian cyst Pancreatic cyst Rectal bleeding Right forearm pain Rotator cuff impingement syndrome Rotator cuff impingement syndrome of left shoulder Sciatic nerve pain Tendinopathy of left rotator cuff Thyroid nodule Vitamin D deficiency Well woman exam Surgical History H/O lithotripsy H/O: hysterectomy History of arthroscopic surgery of shoulder History of breast lump/mass excision History of cholecystectomy (~2003) History of colonoscopy (~11/16/19) History of esophagogastroduodenoscopy (EGD) History of kidney surgery History of thyroidectomy (~11/2018) Hx of appendectomy Hx of bilateral breast reduction surgery Hx of eye surgery Hx of hemorrhoidectomy Hx of tubal ligation Family History Father Family history of high blood pressure History of high cholesterol Mother History of diabetes mellitus Family history of high blood pressure Family history of asthma History of fibromyalgia Liver disease Social History Household Members: None Housing: House Are you a primary acute care nursing assistant to a significant other at home: No Do you presently have visiting nurse or other home services: No Alcohol intake: never Patient Tobacco Use Status: Former Tobacco user Quit Date: 2013 Tobacco use type: Cigarette Years Smoked: 3 e-Cigarette/Vaping Use: Never Used Second Hand Smoke Exposure: No Substance Use Type: Marijuana service: No Current occupational status: disabled Current occupation: right handed Cognitive needs: No Hearing needs: No Vision needs: Yes Female Reproductive History Menstrual Age of Menarche: 14 Review of Systems Const All systems reviewed & are unremarkable except as noted in HPI and below Physical Exam Vital Signs: Last Vital Signs Pulse 87 11/30/22 13:35 BP 146/97 H 11/30/22 13:35 BMI result Body Mass Index 38.8 Const General: healthy appearing and no acute distress Nutritional Appearance: obese Orientation/consciousness: patient oriented x3 Limitations: no limitations HEENT Head: Yes normal to inspection Ears: hearing grossly normal bilaterally Eyes Sclerae: sclerae normal Pupils: Equal, round and reactive pupils present Neck Neck: Yes normal visual inspection Chest Chest palpation & inspection: normal inspection of the chest Resp Effort & Inspection: normal respiratory effort Auscultation: clear to auscultation bilaterally Cardio Palpation: normal PMI Rate: regular rate Rhythm: regular rhythm Heart sounds: S1 normal heart sound present, S2 normal heart sound present and no murmurs GI Palpation (GI): Soft to palpation, Tenderness to palpation present (GI) (Mild left sided abdominal tenderness) and No hepatosplenomegaly present Auscultation: normal bowel sounds Rectal Exam - Female: deferred Skin General skin exam: no rashes or lesions noted Neuro General: patient oriented x3, gait normal and moves all extremities Cranial nerves: Yes Equal, round and reactive pupils present Psych Appearance: grossly normal Mental Status: mental status grossly normal Assessment & Plan Assessment & Plan (1) GERD (gastroesophageal reflux disease): Code(s): K21.9 - Gastro-esophageal reflux disease without esophagitis (2) Irritable bowel syndrome: Code(s): K58.9 - Irritable bowel syndrome without diarrhea (3) Pancreatic cyst: Comment: 8 mm cystic lesion in the pancreas - stable since 2013. Plan is to continue to follow with imaging every 2 years. If size increases to > 1 cms,she will need further evaluation with EUS/MRCP. 02/[address] scan showed Fatty lesion anterior body/tail of pancreas junction is stable. Code(s): K86.2 - Cyst of pancreas (4) Esophageal spasm: Code(s): K22.4 - Dyskinesia of esophagus Plan 52 YF with htn, fibromyalgia, asthma, migraine BROWNE with long history of abdominal pain associated with diarrhea and bloating, constipation alternating with diarrhea with symptoms suggestive of outlet delay. Abdominal pain is likely due to IBS with constipation and diarrhea. Patient notes partial improvement in symptoms with senna, she has not used a suppository or enema in the past.? She tried dicyclomine in the past and was not helpful for abdominal pain. Patient had a colonoscopy on 11/18/19? for evaluation of rectal bleeding which revealed diverticulosis and no polyps.? Random biopsies obtained from the colon were negative for inflammation. 08/2020 Anorectal manometry with balloon expulsion testing at [facility] showed: IMPRESSIONS: Borderline anal hypertension and borderline anal hypocontractility (overall anal sphincter strength lower than average for gender) Abnormal balloon expulsion with normal manometric pattern of rectoanal coordination normal rectal propulsive force and normal anal relaxation with push) This is considered an inconclusive finding that can also be seen in normal controls according to the Wu classification. Mild rectal hypersensitivity suggestive of chronic constipation She complains of constipation x 2-3 days followed by soft/watery stools lasting for half a day. ?Patient was advised to take Miralax every other day for constipation and take Rifaximin x 14 days for suspected SIBO. Takes Miralax intermittently Pt was advised to go on a clear liquid diet and take Mag Citrate to clean out her colon. Then start taking Linzess for constipation. 01/30/22 - pt was advised stool studies, start a probiotic and increase sucralfate to 3-4 times daily 03/16/22 Pt was switched from Omeprazole to Pantoprazole 40 mg twice daily and started on Amitriptyline 25 mg at bedtime. 04/28/22 Amitriptyline dose was increased to 50 mg at bedtime Pt's wt gain is likely related to elevated TSH levels - repeat TSH planned in [address] Humphrey 11/30/22 Pt complains of left sided abd pain, bloating and worsening GERD symptoms after she was advised to take the Pantoprazole later in the day and stop sucralfate due to suspected drug interaction with Levothyroxine. Pt was advised to increase pantoprazole to 40 mg twice daily and amitriptyline to 75 mg at bedtime She will be scheduled for an EGD (last EGD in 2018 showed a small hiatal hernia and gastritis - no HP on bx). FU appt in 6 weeks Medications: Changed From amitriptyline 50 mg (2 x 25 mg) PO BEDTIME 30 days 60 tabs 2RF K58.9 - Irritable bowel syndrome without diarrhea To amitriptyline 75 mg (3 x 25 mg) PO BEDTIME 60 days 180 tabs 2RF K58.9 - Irritable bowel syndrome without diarrhea From pantoprazole 40 mg PO QAM 30 days 30 tabs 1RF K21.9 - Gastro-esophageal reflux disease without esophagitis To pantoprazole 40 mg PO BID 30 days 60 tabs 1RF K21.9 - Gastro-esophageal reflux disease without esophagitis Coding Level of Care Code Est Pt Level 4 (12722) Diagnoses GERD (gastroesophageal reflux disease) K21.9 Irritable bowel syndrome K58.9 Pancreatic cyst K86.2 Esophageal spasm K22.4 Time Spent (min) 32
[2022-11-30 13:35] VITALS: BP 146/97; PULSE 87; BMI 38.8
== END 2022-11-30 14:33 | disposition home or self-care (01) ==
PROVIDERS: PCP Internal Medicine; Visit Provider Internal Medicine Gastroenterology
DX: K21.9 Gastro-esophageal reflux disease without esophagitis (principal); K58.9 Irritable bowel syndrome, unspecified; K86.2 Cyst of pancreas; K22.4 Dyskinesia of esophagus
CPT/HCPCS: 99214

== ENCOUNTER → 2022-11-30 13:30 | Outpatient (BNVA) | payer OTHER, SELFPAY | PROVIDERS: PCP Internal Medicine; Visit Provider Internal Medicine Gastroenterology | DX: K21.9 Gastro-esophageal reflux disease without esophagitis (principal); K58.9 Irritable bowel syndrome, unspecified; K86.2 Cyst of pancreas; K22.4 Dyskinesia of esophagus; Z79.899 Other long term (current) drug therapy | CPT/HCPCS: 99212 ==

== ENCOUNTER 2022-12-11 10:20 | Outpatient (REF) | payer OTHER, SELFPAY | END 2022-12-11 10:21 | disposition home or self-care (01) | LOC: HO.MDS 10:20 | PROVIDERS: Visit Provider Internal Medicine Pulmonary Disease | DX: J45.50 Severe persistent asthma, uncomplicated (principal) | CPT/HCPCS: 96372; J2357 ==

== ENCOUNTER 2022-12-12 12:15 | Outpatient (REF) | payer OTHER, SELFPAY ==
[2022-12-12 14:48] LABS: Free T4 (Free Thyroxine) 0.42 ng/dL (0.71-1.85)
== END 2022-12-12 12:16 | disposition home or self-care (01) ==
LOC: HO.LAB 12:15
PROVIDERS: Absent Provider Internal Medicine Gastroenterology; PCP Internal Medicine; Visit Provider Internal Medicine
DX: E89.0 Postprocedural hypothyroidism (principal); K21.9 Gastro-esophageal reflux disease without esophagitis; R10.9 Unspecified abdominal pain
CPT/HCPCS: 36415; 84439

== ENCOUNTER 2022-12-18 08:19 | Emergency (ER) | payer OTHER, SELFPAY ==
[2022-12-18 08:33] VITALS: BP 191/134; PULSE 104; RESP 18; TEMP 36.2; O2SAT 97; BMI 34.9
[2022-12-18] MEDS: Ondansetron ODT 4 MG TAB.RAPDIS TRANSLINGU (08:40)
[2022-12-18 09:09] LABS: MANUAL DIFF FLAG NO
[2022-12-18 09:10] LABS: Basophils Absolute Auto 0.1 X10*3/uL (0.0-0.2); Basophils Percent Auto 0.5 % (0-2); Eosinophils Absolute Auto 0.2 X10*3/uL (0.0-0.4); Eosinophils Percent Auto 1.2 % (0-4); Hematocrit 46.1 % (37.0-47.0); Hemoglobin 15.9 g/dl (12.0-16.0); Imm Gran Abs Auto 0.04 X10*3/uL (0.00-0.03); Imm Gran Pct Auto 0.3 % (0.0-0.4); Lymphocytes Percent Auto 15.9 % (20-40); Mean Corpuscular HGB Conc 34.5 g/dl (31.0-35.0); Mean Corpuscular Hemoglobin 31.1 pg (27.0-33.0); Mean Corpuscular Volume 90.2 fL (80.0-98.0); Mean Platelet Volume 10.3 fL (9.4-12.3); Monocytes Absolute Auto 0.7 X10*3/uL (0.1-1.2); Monocytes Percent Auto 5.2 % (2-11); Neutrophils Absolute Auto 9.8 x10*3/uL (2.0-8.3); Neutrophils Percent Auto 76.9 % (45-73); Platelet Count 282 X10*3/uL (160-400); Red Blood Count 5.11 X10*6/uL (4.20-5.50); Red Cell Distribution Width 13.5 % (11.0-16.0); White Blood Count 12.8 X10*3/uL (4.8-10.8)
[2022-12-18 09:21] LABS: Appearance Urine Clear; Color Urine Yellow; Glucose Urine UA Negative (Negative); Leukocyte Esterase Urine Negative (Negative); Nitrite Urine Negative (Negative); PH 7.5 (5.0-9.0); Specific Gravity - Urine 1.015 (1.005-1.025); UMIC TRIGGER UACC YES; Urine Blood Negative (Negative); Urine Ketones Negative (Negative); Urine Protein 30 (1+) mg/dL (Neg-Trace)
[2022-12-18 09:22] LABS: Anion Gap 16 (12-20); Blood Urea Nitrogen 8 mg/dL (9-16); Calcium 9.7 mg/dL (8.4-10.2); Carbon Dioxide 23 mmol/L (22-29); Chloride 104 mmol/L (96-108); Creatinine Clr Calc Pharmacy 101.1; Estimated Glomerular Filt Rate > 60; Glucose Random 114 mg/dL (60-115); Potassium 3.4 mmol/L (3.3-5.1); Sodium 140 mmol/L (135-145)
[2022-12-18 09:37] LABS: Bacteria Urine Trace (None Seen); Hyaline Casts Urine 0-2 /LPF (0-2); RBC Urine 0-2 /HPF (0-2); WBC Urine 0-5 /HPF (0-5)
--- NOTE | 2022-12-18 13:40 | ED_ITS ---
HPI - Abdominal Pain General Chief Complaint: Abdominal Pain Stated Complaint: abd pain Time Seen by Provider: 12/18/22 13:28 Source: patient and family (, [place]) Mode of arrival: ambulatory Limitations: no limitations History of Present Illness HPI narrative: 52-year-old female with a history of hyperlipidemia, asthma, GERD, depression, migraines, IBS, fibromyalgia, hypothyroidism who presents emergency department for evaluation of abdominal pain, nausea, vomiting, weakness. The patient states that she had thyroid cancer and had her thyroid removed. 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 Patient states that she was taking omeprazole with her levothyroxine but her doctor changed her to pantoprazole and advised her to take her thyroid medicine at least 3 hours before taking her proton pump inhibitor. She states the since that time, over the past 3 months, she has had constant abdominal pain. She describes the pain is a burning sensation across her upper abdomen. She states that the pain is gotten worse over the past 2 days to the point where she is not able to eat or drink. She states that she vomits multiple times a day whenever she eats. She also states that she has had multiple episodes of diarrhea over the past 2 days. She states she is feeling weak and short of breath. She states that her pain is currently 10/10. Review of systems was negative for fever, chills, rhinorrhea, sore throat, cough, chest pain, frequency, urgency, dysuria Related Data Home Medications Medication Instructions Recorded Confirmed budesonide-formoterol HFA 160 2 puff inhalation BID 11/30/22 11/30/22 mcg-4.5 mcg/actuation aerosol inhaler (Symbicort) sumatriptan succinate 100 mg tablet mg PO 11/30/22 11/30/22 topiramate 50 mg tablet 50 mg PO BID 11/30/22 11/30/22 Previous Rx's Medication Instructions Recorded omalizumab 150 mg/mL subcutaneous 300 mg (2 mL) subcut Q2W #4 mL 03/25/20 syringe (Xolair) magnesium citrate 150 ml PO ONCE 1 day #150 mL 06/30/21 Ventolin HFA 90 mcg/actuation 2 puff inhalation Q4-6H PRN 12/29/21 aerosol inhaler (albuterol sulfate) shortness of breath or wheezing 30 days #1 ea metoprolol tartrate 50 mg tablet See Rx Instructions PO .COMPLEX 90 01/06/22 days #270 tabs famotidine 20 mg tablet 20 mg PO BEDTIME PRN for acid 03/20/22 reflux 30 days #30 tabs sucralfate 1 gram tablet 1 g PO BID 30 days #60 tabs 03/20/22 fluticasone furoate 200 1 inh inhalation DAILY 30 days #60 03/27/22 mcg-vilanterol 25 mcg/dose ea inhalation powder (Breo Ellipta) umeclidinium 62.5 mcg/actuation 1 inh inhalation DAILY 30 days #30 03/27/22 blister powder for inhalation ea (Incruse Ellipta) pregabalin 50 mg capsule (Lyrica) See Rx Instructions .Route 04/11/22 .COMPLEX #53 caps cholecalciferol (vitamin D3) 50 50 mcg PO DAILY 30 days #30 caps 05/04/22 mcg (2,000 unit) capsule [id number]-nhcbuzwzfuotg-fazdnebb 1 cap PO Q6H PRN headache #20 caps 05/23/22 50 mg-300 mg-40 mg capsule (Fioricet) clotrimazole-betamethasone 1 1 appl topical BID 5 days #45 grams 05/24/22 %-0.05 % topical cream hydroxyzine HCl 25 mg tablet 25 mg PO TID PRN for itch #21 tabs 05/24/22 atorvastatin 10 mg tablet (Lipitor) 10 mg PO DAILY #30 tabs 05/31/22 docusate sodium 100 mg capsule 100 mg PO BID #60 caps 06/04/22 polyethylene glycol 3350 17 17 g PO BID 60 days #2,040 grams 08/17/22 gram/dose oral powder (Gavilax) ipratropium 0.5 mg-albuterol 3 mg 3 ml inhalation Q4-6H PRN for 08/18/22 (2.5 mg base)/3 mL nebulization wheezing #180 mL soln diclofenac sodium 75 mg 75 mg PO BID PRN pain #60 tabs 09/28/22 tablet,delayed release levothyroxine 175 mcg tablet 175 mcg PO DAILY #90 tabs 10/16/22 amlodipine 10 mg tablet 10 mg PO DAILY #90 tabs 10/17/22 clobetasol 0.05 % topical cream 1 appl topical BID 4 weeks #45 10/17/22 grams amitriptyline 25 mg tablet 75 mg (3 x 25 mg) PO BEDTIME 60 11/30/22 days #180 tabs pantoprazole 40 mg tablet,delayed 40 mg PO BID 30 days #60 tabs 11/30/22 release aluminum hydrox-magnesium carb 254 10 ml PO QID PRN dyspepsia #355 mL 12/18/22 mg-237.5 mg/5 mL oral suspension (Gaviscon Extra Strength) morphine 15 mg immediate release 15 mg PO Q4-6H PRN pain #10 tabs 12/18/22 tablet omeprazole 20 mg capsule,delayed 40 mg (2 x 20 mg) PO DAILY 30 days 12/18/22 release #60 caps Allergies Allergy/AdvReac Type Severity Reaction Status Date / Time pineapple [PINEAPPLE] Allergy Severe ANAPHYLAXIS Verified 11/30/22 13:35 adhesive tape Allergy Intermediate Blister Verified 11/30/22 13:35 Iodinated Contrast Media Allergy Intermediate SOB,RASH Verified 11/30/22 13:35 [IV Dye, Iodine Containing] levofloxacin [From Levaquin] Allergy Intermediate swelling/ra Verified 11/30/22 13:35 sh oxycodone [From Percocet] Allergy Intermediate rash/SOB Verified 11/30/22 13:35 aspirin [ASA] AdvReac Mild UPSET Verified 11/30/22 13:35 STOMACH Review of Systems Review of Systems Yes all other systems are reviewed and are negative [facility] Past Medical History [facility] Narrative: Social history: She denies tobacco, alcohol and drug use. Medical History Abdominal bloating Abnormal finding on EKG Allergic rhinitis Asthma Chronic constipation Colitis Constipation Diarrhea Diarrhea Dysphagia Esophageal spasm Fall Fibromyalgia GERD (gastroesophageal reflux disease) History of migraine headaches History of TIA (transient ischemic attack) Hx of flexible sigmoidoscopy Hypercholesterolemia Hypertension Hypertensive urgency Hypothyroidism IBS (irritable bowel syndrome) Internal derangement of right shoulder Kidney stones Lateral epicondylitis of both elbows Lump of axillary tail of right breast Lump of left breast Lump of right breast Multinodular thyroid Ovarian cyst Pancreatic cyst Rectal bleeding Right forearm pain Rotator cuff impingement syndrome Rotator cuff impingement syndrome of left shoulder Sciatic nerve pain Tendinopathy of left rotator cuff Thyroid nodule Vitamin D deficiency Well woman exam Surgical History H/O lithotripsy H/O: hysterectomy History of arthroscopic surgery of shoulder History of breast lump/mass excision History of cholecystectomy (~2003) History of colonoscopy (~11/16/19) History of esophagogastroduodenoscopy (EGD) History of kidney surgery History of thyroidectomy (~11/2018) Hx of appendectomy Hx of bilateral breast reduction surgery Hx of eye surgery Hx of hemorrhoidectomy Hx of tubal ligation Family History Family History Father Family history of high blood pressure History of high cholesterol Mother History of diabetes mellitus Family history of high blood pressure Family history of asthma History of fibromyalgia Liver disease Social History Social History Household Members: None Housing: House Are you a primary caretaker to a significant other at home: No Do you presently have visiting nurse or other home services: No Alcohol intake: never Patient Tobacco Use Status: Former Tobacco user Quit Date: 2013 Tobacco use type: Cigarette Years Smoked: 3 Smoked in Last 30 Days: No e-Cigarette/Vaping Use: Never Used Second Hand Smoke Exposure: No Use of substances other than those prescribed or required for medical reasons: Yes Substance Use Type: Marijuana Advance Directives: No Advance Directives Information Provided: No service: No Current occupational status: disabled Current occupation: right handed Cognitive needs: No Hearing needs: No Vision needs: Yes Physical Exam ED Vital Signs: Vital Signs - 24 hr 12/18/22 08:33 12/18/22 14:43 Temperature 97.2 F Pulse Rate 104 H 98 Respiratory Rate 18 18 Blood Pressure 191/134 H 177/120 H Pulse Oximetry 97 99 Oxygen Delivery Method Room Air Room Air BMI result Body Mass Index 34.9 Vital signs revealed an elevated heart rate of 104 and elevated blood pressure of 191/134. Exam: General: Awake, alert , tear, in distress secondary to abdominal pain, elevated BMI 34.9. Head: Normocephalic, atraumatic EENT: PERRL, Lids normal, sclera normal, conjunctiva normal, nose normal , ears normal, throat without erythema or exudates Neck: Supple, no adenopathy, no trachea midline or C-spine tenderness Lung: breath sounds symmetric, no wheezing, rales or rhonchi Chest: symmetric movement, nontender Heart: regular rate and rhythm, normal S1, S2 no murmurs or rubs Abdomen: soft, moderate upper abdominal tenderness, nondistended, normal bowel sounds, no rebound, no involuntary guarding Back: no vertebral tenderness, no CVAT Extremities: no deformities, moves all extremities symmetrically Skin: no rashes, no lesion, normal color and warmth Neuro: Awake, alert, oriented, normal speech, moves all extremities symmetrically Psych: Pleasant, cooperative Medical Decision Making Medical Decision Making MDM Narrative: 52-year-old female with history of hyperlipidemia, asthma, GERD, depression, migraines, irritable bowel syndrome, fibromyalgia, thyroid cancer status post thyroidectomy with hypothyroidism, cholecystectomy, appendectomy who presents to emergency department for evaluation abdominal pain x3 months, worse x2 days with nausea, vomiting and diarrhea over the last 2 days, inability eat secondary to her symptoms. Patient attributes her pain to taking levothyroxine on empty stomach and not taking the medication with her proton pump inhibitor. Vital signs did reveal elevated heart rate and elevated blood pressure, most likely secondary to anxiety and pain. Exam did reveal upper abdominal tenderness with no rebound or involuntary guarding. The following evaluation was ordered: CBC, BMP, liver panel, lipase, urinalysis. Patient received Zofran 4 mg ODT in triage. I ordered normal saline x1 L, Zofran 4 mg IV, and morphine 4 mg IV for her pain. 16:48 Patient's laboratory evaluation was nondiagnostic. Patient got minimal relief the above treatment, she required 2nd dose of morphine 4 mg IV and and Phenergan 12.5 mg IV. Patient is currently feeling better. After discussion, patient felt that she did better on omeprazole therefore advised to stop pantoprazole and started her on omeprazole 40 mg daily. Patient was also prescribed extra-strength Gaviscon 10 cc 4 times a day as needed. I did tell her that she should take her levothyroxine on an empty stomach and not to take these 2 medications until at least 3 hours after her levothyroxine. Patient was also prescribed Zofran ODT 4 mg every 6-8 hours as needed for nausea and vomiting She was advised to take Tylenol for pain and for pain not relieved by Tylenol she was prescribed morphine. Differential Diagnosis Differential Diagnoses: The differential diagnosis associated with the presentation includes Differential diagnosis includes was not limited to gastritis, esophagitis, pancreatitis, viral syndrome Admission/Observation Consideration of admission/observation: Escalation of care including admission/observation considered Lab Data MDM Lab Attestation statement: I reviewed the patient's lab results. My interpretation patient's laboratory evaluation is as follows: WBC elevated 12,800, H&H normal. CMP was normal. Lipase mildly elevated 118. Urinalysis positive for protein, otherwise negative. Microscopic negative for infection. 12/18/22 08:57 12/18/22 08:57 Labs: Lab Results 12/18/22 Range/Units 08:57 WBC 12.8 H (4.8-10.8) X10*3/uL RBC 5.11 (4.20-5.50) X10*6/uL Hgb 15.9 (12.0-16.0) g/dl Hct 46.1 (37.0-47.0) % MCV 90.2 (80.0-98.0) fL MCH 31.1 (27.0-33.0) pg MCHC 34.5 (31.0-35.0) g/dl RDW 13.5 (11.0-16.0) % Plt Count 282 (160-400) X10*3/uL MPV 10.3 (9.4-12.3) fL Immature Gran % (Auto) 0.3 (0.0-0.4) % Neut % (Auto) 76.9 H (45-73) % Lymph % (Auto) 15.9 L (20-40) % [place] % (Auto) 5.2 (2-11) % Eos % (Auto) 1.2 (0-4) % Baso % (Auto) 0.5 (0-2) % Lymph # (Auto) 2.0 (1.2-4.9) X10*3/uL [place] # (Auto) 0.7 (0.1-1.2) X10*3/uL Eos # (Auto) 0.2 (0.0-0.4) X10*3/uL Baso # (Auto) 0.1 (0.0-0.2) X10*3/uL Abs Immat Gran (auto) 0.04 H (0.00-0.03) X10*3/uL Absolute Neuts (auto) 9.8 H (2.0-8.3) x10*3/uL Absolute Nucleated RBC 0.000 (0.0-0.012) X10*3/uL Nucleated RBC % (auto) 0.0 (0.0-0.2) /100WBC Sodium 140 (135-145) mmol/L Potassium 3.4 (3.3-5.1) mmol/L Chloride 104 (96-108) mmol/L Carbon Dioxide 23 (22-29) mmol/L Anion Gap 16 (12-20) BUN 8 L (9-16) mg/dL Creatinine 0.76 (0.5-1.4) mg/dL Estim Creat Clear Calc 101.1 Estimated GFR > 60 Random Glucose 114 (60-115) mg/dL Calcium 9.7 (8.4-10.2) mg/dL Total Bilirubin 0.6 (0.0-1.0) mg/dL Direct Bilirubin 0.2 (0.0-0.5) mg/dL AST 22 (5-31) U/L ALT 27 (0-31) U/L Alkaline Phosphatase 81 (39-117) U/L Total Protein 8.6 H (6.5-8.0) g/dL Albumin 4.5 (3.5-5.0) g/dL Lipase 118 H (8-78) U/L Urine Color Yellow Urine Appearance Clear Urine pH 7.5 (5.0-9.0) Ur Specific [place] 1.015 (1.005-1.025) Urine Protein 30 (1+) H (Neg-Trace) mg/dL Urine Glucose (UA) Negative (Negative) mg/dL Urine Ketones Negative (Negative) mg/dL Urine Blood Negative (Negative) Urine Nitrite Negative (Negative) Ur Leukocyte Esterase Negative (Negative) Urine RBC 0-2 (0-2) /HPF Urine WBC 0-5 (0-5) /HPF Ur Squamous Epith Cells 3-5 (0-2) /HPF Urine Bacteria Trace (None Seen) Hyaline Casts 0-2 (0-2) /LPF Independent Historian Clinical information obtained from an independent historian. History obtained from or confirmed by: Spouse Chronic Conditions Patient?s care impacted by: Hypertension and Other (Hypothyroidism) Medications Administered Discontinued Medications Generic Name Dose Route Start Last Admin Trade Name Freq PRN Reason Stop Dose Admin Sodium Chloride 1,000 mls @ 999 mls/hr 12/18/22 14:01 12/18/22 14:37 Ns IV 12/18/22 15:01 999 mls/hr .Q1H1M STA Administration Promethazine HCl 12.5 mg/ 50.5 mls @ 202 mls/hr 12/18/22 16:00 12/18/22 16:07 Sodium Chloride IV 12/18/22 16:01 202 mls/hr ONCE ONE Administration Morphine Sulfate 4 mg 12/18/22 14:01 12/18/22 14:39 Morphine Sulfate 4 Mg/Ml Cartridge IVPUSH 12/18/22 14:02 4 mg ONCE STA Administration Protocol Morphine Sulfate 4 mg 12/18/22 15:25 12/18/22 15:36 Morphine Sulfate 4 Mg/Ml Cartridge IVPUSH 12/18/22 15:26 4 mg ONCE STA Administration Protocol Ondansetron HCl 4 mg 12/18/22 08:33 12/18/22 08:40 Ondansetron Odt 4 Mg Tab.Rapdis TRANSLINGU 12/18/22 08:34 4 mg ONCE ONE Administration Ondansetron HCl 4 mg 12/18/22 14:01 12/18/22 14:37 Ondansetron Hcl 4 Mg/2 Ml Vial IVPUSH 12/18/22 14:02 4 mg ONCE ONE Administration Discharge Plan Discharge Clinical Impression: Gastritis Qualifiers: Gastritis type: unspecified gastritis Chronicity: acute Gastritis bleeding: w ithout bleeding Qualified Code(s): K29.00 - Acute gastritis without bleeding Nausea & vomiting Qualifiers: Vomiting type: unspecified Qualified Code(s): R11.2 - Nausea with vomiting, unspecified Patient Disposition: Home, Self-Care Instructions: Gastritis (ED) Additional Instructions: Your blood work was unremarkable. Stop the pantoprazole. Take Prilosec (omeprazole) 20 mg pills, 2 pill once a day for 1 month. This medication shuts off your acid production and lets the inflammation in your stomach and esophagus heal. You need to take this medication at least 3 hours after you take your levothyroxine. Take extra-strength Gaviscon 10 mL (2 tsp) 4 times a day as needed for abdominal pain. You need to take this medication at least 3 hours after you take your levothyroxine. Take Zofran ODT 4 mg pills, 1 pill dissolved in your mouth every 8 hours as needed for nausea and vomiting. Take Tylenol (acetaminophen) 500 mg, 2 pills every 6 hours as needed for pain. For pain not relieved by Tylenol take morphine 15 mg pills, 1 pill every 4 hours as needed for pain. This medication will make you sleepy, do not drive or work while taking this medication. Morphine is a narcotic medication and can be addicting. If you are concerned about addiction you can ask the pharmacist for less pills or do not get this prescription filled. Follow-up with your doctor in 2 days. Please return to the emergency department if your symptoms get worse or if you develop any symptoms that are concerning to you. Prescriptions: New omeprazole 20 mg capsule,delayed release(DR/EC) 40 mg PO DAILY 30 Days Qty: 60 0RF Gaviscon Extra Strength 254-237.5 mg/5 mL suspension 10 ml PO QID PRN (Reason: dyspepsia) Qty: 355 0RF morphine 15 mg tablet 15 mg PO Q4-6H PRN (Reason: pain) Qty: 10 0RF Rx Instructions: The patient may ask for partial fill; Partial Fill upon patient request. No Action omalizumab [Xolair] 150 mg/mL syringe 300 mg subcut Q2W Qty: 4 11RF albuterol sulfate [Ventolin HFA] 90 mcg/actuation HFA aerosol inhaler 2 puff inhalation Q4-6H PRN (Reason: shortness of breath or wheezing) 30 Days Qty: 1 6RF metoprolol tartrate 50 mg tablet See Rx Instructions PO .COMPLEX 90 Days Qty: 270 1RF Rx Instructions: Take 2 tablets in the morning and 1 tablet at night PO; famotidine 20 mg tablet 20 mg PO BEDTIME PRN (Reason: for acid reflux) 30 Days Qty: 30 1RF sucralfate 1 gram tablet 1 g PO BID 30 Days Qty: 60 3RF fluticasone furoate-vilanterol [Breo Ellipta] 200-25 mcg/dose blister with device 1 inh inhalation DAILY 30 Days Qty: 60 6RF Incruse Ellipta 62.5 mcg/actuation blister with device 1 inh inhalation DAILY 30 Days Qty: 30 6RF cholecalciferol (vitamin D3) 50 mcg (2,000 unit) capsule 50 mcg PO DAILY 30 Days Qty: 30 11RF docusate sodium 100 mg capsule 100 mg PO BID Qty: 60 0RF polyethylene glycol 3350 [Gavilax] 17 gram/dose powder 17 g PO BID 60 Days Qty: 2040 2RF ipratropium-albuterol 0.5 mg-3 mg(2.5 mg base)/3 mL solution for nebulization 3 ml inhalation Q4-6H PRN (Reason: for wheezing) Qty: 180 3RF levothyroxine 175 mcg tablet 175 mcg PO DAILY Qty: 90 1RF clobetasol 0.05 % cream 1 appl topical BID 28 Days Qty: 45 1RF Rx Instructions: Then maintenance therapy for 2-3 times per week amlodipine 10 mg tablet 10 mg PO DAILY Qty: 90 1RF sqnbbgbjwp-ztvbsznbyesjn-eewu [Fioricet] 50-300-40 mg capsule 1 cap PO Q6H PRN (Reason: headache) Qty: 20 0RF atorvastatin [Lipitor] 10 mg tablet 10 mg PO DAILY Qty: 30 4RF diclofenac sodium 75 mg tablet,delayed release (DR/EC) 75 mg PO BID PRN (Reason: pain) Qty: 60 0RF magnesium citrate Solution 150 ml PO ONCE 1 Days Qty: 150 0RF pregabalin [Lyrica] 50 mg capsule See Rx Instructions .ROUTE .COMPLEX Qty: 53 1RF Rx Instructions: take 1 capsule (50mg) po at bedtime for 1 week, then increase to 1 capsule (50mg) po BID as tolerated. hydroxyzine HCl 25 mg tablet 25 mg PO TID PRN (Reason: for itch) Qty: 21 0RF clotrimazole-betamethasone 1-0.05 % cream 1 appl topical BID 5 Days Qty: 45 0RF topiramate 50 mg tablet 50 mg PO BID sumatriptan succinate 100 mg tablet PO budesonide-formoterol [Symbicort] 160-4.5 mcg/actuation HFA aerosol inhaler 2 puff inhalation BID pantoprazole 40 mg tablet,delayed release (DR/EC) 40 mg PO BID 30 Days Qty: 60 1RF amitriptyline 25 mg tablet 75 mg PO BEDTIME 60 Days Qty: 180 2RF
[2022-12-18 14:08] LABS: Alanine Aminotransferase 27 U/L (0-31); Albumin Level 4.5 g/dL (3.5-5.0); Alkaline Phosphatase 81 U/L (39-117); Aspartate Amino Transferase 22 U/L (5-31); Bilirubin Direct 0.2 mg/dL (0.0-0.5); Bilirubin Total 0.6 mg/dL (0.0-1.0); Lipase 118 U/L (8-78); Total Protein 8.6 g/dL (6.5-8.0)
[2022-12-18] MEDS: 0.9 % Sodium Chloride 1,000 ML 999 ML IV (14:37)
[2022-12-18] MEDS: ondansetron HCL 4 MG/2 ML VIAL IVPUSH (14:37)
[2022-12-18] MEDS: Morphine Sulfate 4 MG/ML CARTRIDGE IVPUSH ×2 (14:39→15:36)
[2022-12-18 14:43] VITALS: BP 177/120; PULSE 98; RESP 18; O2SAT 99
[2022-12-18 17:47] VITALS: BP 154/96; PULSE 85; RESP 16; O2SAT 93
== END 2022-12-18 17:48 | disposition home or self-care (01) ==
PROVIDERS: Emergency Provider Emergency Medicine Emergency Medical Services; PCP Internal Medicine
DX: K29.00 Acute gastritis without bleeding (principal); R11.2 Nausea with vomiting, unspecified; R19.7 Diarrhea, unspecified; Z87.891 Personal history of nicotine dependence; Z79.899 Other long term (current) drug therapy
CPT/HCPCS: 36415; 80048; 80076; 81001; 83690; 85025; 96361; 96365; 96375; 96376; 99284; J2270; J2405; J2550

== ENCOUNTER 2022-12-21 07:30 | Outpatient (AMB) | payer OTHER, SELFPAY ==
--- NOTE | 2022-12-21 07:36 | MHC.OFFVIS ---
Intake Vital Signs 12/21/22 07:40 Height 5 ft 5 in Weight 210 lb BMI 34.9 BP 163/102 H Blood Pressure Location Lt brachial Position Sitting Pulse 98 Intake Visit Reasons: abdominal pain Intake Note: Patient follow up from ED for abdominal pain Patient cc: abdominal pain, 3 days with out any BM due constipation, and some swallowing problems. 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 Accompanied by: Spouse Allergies pineapple [PINEAPPLE] Allergy (Severe, Verified 12/21/22 07:37) ANAPHYLAXIS adhesive tape Allergy (Intermediate, Verified 12/21/22 07:37) Blister Iodinated Contrast Media [IV Dye, Iodine Containing] Allergy (Intermediate, Verified 12/21/22 07:37) SOB,RASH levofloxacin [From Levaquin] Allergy (Intermediate, Verified 12/21/22 07:37) swelling/rash oxycodone [From Percocet] Allergy (Intermediate, Verified 12/21/22 07:37) rash/SOB aspirin [ASA] Adverse Reaction (Mild, Verified 12/21/22 07:37) UPSET STOMACH Medication List - Last Reconciled 12/21/22 by Sky Horton MD aluminum hydrox-magnesium carb 254-237.5 mg/5 mL (Gaviscon Extra Strength) 10 mL PO QID PRN amitriptyline 75 mg (3 x 25 mg) PO BEDTIME 60 days amlodipine 10 mg PO DAILY atorvastatin (Lipitor) 10 mg PO DAILY budesonide-formoterol 160-4.5 mcg/actuation (Symbicort) 2 puffs inhalation BID [id number]-lixtdgnnsobls-wosp 50-300-40 mg (Fioricet) 1 cap PO Q6H PRN cholecalciferol (vitamin D3) 50 mcg PO DAILY 30 days clobetasol 0.05% 1 appl topical BID 4 weeks clotrimazole-betamethasone 1-0.05 % 1 appl topical BID 5 days diclofenac sodium 75 mg PO BID PRN docusate sodium 100 mg PO BID famotidine 20 mg PO BEDTIME PRN 30 days fluticasone furoate-vilanterol 200-25 mcg/dose (Breo Ellipta) 1 inh inhalation DAILY 30 days hydroxyzine HCl 25 mg PO TID PRN ipratropium-albuterol 0.5 mg-3 mg(2.5 mg base)/3 mL 3 mL inhalation Q4-6H PRN levothyroxine 175 mcg PO DAILY magnesium citrate 150 mL PO ONCE 1 day metoprolol tartrate Take 2 tablets in the morning and 1 tablet at night PO; 90 days morphine 15 mg PO Q4-6H PRN omalizumab (Xolair) 300 mg (2 mL) subcut Q2W omeprazole 40 mg (2 x 20 mg) PO DAILY 30 days polyethylene glycol 3350 (Gavilax) 17 grams PO BID 60 days pregabalin (Lyrica) take 1 capsule (50mg) po at bedtime for 1 week, then increase to 1 capsule (50mg) po BID as tolerated. sucralfate 1 g PO BID 30 days sumatriptan succinate mg PO topiramate 50 mg PO BID umeclidinium 62.5 mcg/actuation (Incruse Ellipta) 1 inh inhalation DAILY 30 days Ventolin HFA 90 mcg/actuation (albuterol sulfate) 2 puffs inhalation Q4-6H PRN 30 days NS HPI abdominal pain HPI Details GI Clinic visit for this 52-year-old female for evaluation of diarrhea and abdominal bloating Pt had severe watery diarrhea which lasted for several weeks after her thyroid surgery. Pt was seen at [facility] ED on 12/18/22 with worsening abd pain and labs showed an elevated lipase of 118 LABS IN [facility]: 11/15 REVIEWED. ? Stool studies were negative for C Diff, calprotectin was normal and stool fat was elevated ? Stool electrolytes could not be performed since stool was formed ? Serum gastrin was elevated and normal on repeat testing after holding Omeprazole. ?IMAGING STUDIES: 03/16/22 BARIUM SWALLOW SHOWED: -Spontaneous gastroesophageal reflux to the level mid thoracicesophagus. -Bridging anterior osteophytes mid to lower cervical spine. Swellingfunction unremarkable. -No stricture, ulceration, or hiatal hernia. 01/[address] SCAN SHOWED:? 2 mm small radiopaque calculi nonobstructive lower pole right kidney ? and mid pole left kidney. There are extrarenal kidney pelvises seen. ? Mild constipation without obstruction. No evidence of panniculitis or diverticulitis. Small hiatal hernia. ? Fatty lesion anterior body/tail of pancreas junction is stable. 02/15/2018:? ABD MRI SHOWED:Status post cholecystectomy.? No MRI evidence of intra or extrahepatic biliary obstruction, filling defects or stones. Pancreatic metrics incised are normal, no pancreatic mass found. ENDOSCOPIC STUDIES: 03/13/22 COLONOSCOPY SHOWED: Two small adenomatous polyps removed Moderate diverticulosis seen in the []colon Moderate hemorrhoids on retroflexed exam. Plan:? Repeat Colonoscopy in 5 yrs. 11/18/19 COLONOSCOPY SHOWED:? No polyps were detected ? Random bx obtained from the colon ? Moderate diverticulosis seen in the sigmoid colon ? Moderate hemorrhoids on retroflexed exam. ? Plan: Patient has an appointment on 12/05/19 in the GI Clinic with Sky Horton M.D.-. ? Repeat Colonoscopy interval based on path results in 5 years if colon bxs are normal. ? BIOPSIES SHOWED: ? A. Colon, random, biopsy: Colonic mucosa within normal limits; negative for ? active, chronic or microscopic colitis. ? B. Rectum, biopsy: Colonic mucosa within normal limits; negative for active, chronic or microscopic colitis. ?09/2017 COLONOSCOPY SHOWED: ? Two adenomatous and one hyperplastic polyps removed ? Patchy erythmea in the descending colon - likely resolving infectious or ? ischemic colitis - possible source of rectal bleeding. ? Random biopsies obtained from the right and left colon which were normal. ? Mild diverticulosis seen in the sigmoid colon ? Small hemorrhoids on retroflexed exam. ? Plan: ? Patient has an appointment on 10/23/17 in the GI Clinic with Sky Horton M.D. ? Repeat Colonoscopy in 5 years if polyps are adenomatous ?02/04/19 EGD SHOWED: ? Esophagus: GE junction at 32 cms, small hiatal hernia 32 to 35 cms. A 1 cms focal ulcer at GE junction - likely healing MW tear or esophagitis due to GERD. ? Stomach: Moderate erythema with healing erosions in the gastric body and hemorrhagic erosions in the antrum. Biopsies were obtained. Grade 3 flap valve on retroflexed examination of the cardia. ? Duodenum: Normal bulb and descending duodenum. Biopsies obtained from 3rd part of duodenum to check for celiac sprue. BIOPSIES SHOWED: A. Small bowel, biopsy: Small bowel mucosa within normal limits; preserved villous architecture and no increase in intraepithelial lymphocytes. B. Stomach, antrum, biopsy: Gastric antral mucosa with mild chronic inactive gastritis; negative for Helicobacter pylori, intestinal metaplasia and dysplasia. C. Stomach, body, biopsy: Gastric body mucosa with mild chronic inactive gastritis; negative for Helicobacter pylori, intestinal metaplasia and dysplasia. D. Esophagus, proximal, biopsy: Squamous mucosa within normal limits; negative for inflammation, fungal organisms, intestinal metaplasia and dysplasia. TODAY'S VISIT: Notes worsening burning upper abdominal pain radiating to the back with nausea and vomiting. Feels weak and tired. Only able to drink soups. Worsening pain, bloating and distension when she tries to eat and drink. No BM since 12/15/22 - had a small BM. Attributes to not eating and getting morphine in the ED on 12/18/22. Denies fever, chills and notes sweating. Taking Pantoprazole twice a day which is not helping. PAST VISIT: Gloria presents in the office as a follow up patient for abdominal pains. CC: She is having issues - she states she has issues with her thyroid. She is having issues with taking that medication and was told to take it with the stomach medications. 2 months ago she stopped taking her Pantoprazole and now she is unable to drink or eat anything. She is having severe pains in her stomach and severe acid reflux. She is scared because her hair has been falling out as well. Continues to have abdominal pain and bloating. Has a lot of abdominal pain. She was advised to take no medication for 2-3 hours after she takes her Levothyroxine and to take Pantoprazole later - and takes it at 2 pm. Complains of nausea and vomiting Has diarrhea with 4-5 watery stools per day - sometimes stool is like powder. Denies recent constipation. Had recurrent vomiting yesterday - containing white foamy saliva Notes increased burping, bloating and left sided abdominal pain. Seen by her test rack operator and advised she has fluid in her lungs When she goes to the bathroom to pee, she has the urge to defecate with passage of small dark stool. Still taking Omeprazole - Pantoprazole not available at the pharmacy yet - refill sent. Entire body hurts due to fibromyalgia. Started on a new medication for fibromyalgia [facility] Medical History Dysphagia Diarrhea Well woman exam Abnormal finding on EKG Hx of flexible sigmoidoscopy Internal derangement of right shoulder Lump of left breast Lump of right breast Lump of axillary tail of right breast Chronic constipation Rotator cuff impingement syndrome of left shoulder Right forearm pain Colitis Hypertensive urgency Rotator cuff impingement syndrome Lateral epicondylitis of both elbows Fall IBS (irritable bowel syndrome) Abdominal bloating Tendinopathy of left rotator cuff History of TIA (transient ischemic attack) Hypercholesterolemia Vitamin D deficiency Multinodular thyroid Pancreatic cyst Constipation Thyroid nodule Diarrhea Rectal bleeding Esophageal spasm GERD (gastroesophageal reflux disease) Hypertension Asthma Kidney stones History of migraine headaches Fibromyalgia Allergic rhinitis Sciatic nerve pain Ovarian cyst Hypothyroidism Surgical History History of arthroscopic surgery of shoulder Hx of eye surgery History of breast lump/mass excision Hx of hemorrhoidectomy Hx of tubal ligation History of esophagogastroduodenoscopy (EGD) History of colonoscopy (~11/16/19) H/O: hysterectomy History of thyroidectomy (~11/2018) History of kidney surgery Hx of bilateral breast reduction surgery Hx of appendectomy History of cholecystectomy (~2003) H/O lithotripsy Family History Father Family history of high blood pressure History of high cholesterol Mother History of diabetes mellitus Family history of high blood pressure Family history of asthma History of fibromyalgia Liver disease Social History Household Members: None Housing: House Are you a primary care coordinator to a significant other at home: No Do you presently have visiting nurse or other home services: No Alcohol intake: never Patient Tobacco Use Status: Former Tobacco user Quit Date: 2013 Tobacco use type: Cigarette Years Smoked: 3 e-Cigarette/Vaping Use: Never Used Second Hand Smoke Exposure: No Substance Use Type: Marijuana service: No Current occupational status: disabled Current occupation: right handed Cognitive needs: No Hearing needs: No Vision needs: Yes Female Reproductive History Menstrual Age of Menarche: 14 Review of Systems Const All systems reviewed & are unremarkable except as noted in HPI and below Physical Exam Vital Signs: Last Vital Signs Pulse 98 12/21/22 07:40 BP 163/102 H 12/21/22 07:40 BMI result Body Mass Index 34.9 Const General: healthy appearing Nutritional Appearance: obese Orientation/consciousness: patient oriented x3 Limitations: no limitations HEENT Head: Yes normal to inspection Ears: hearing grossly normal bilaterally Eyes Sclerae: sclerae normal Pupils: Equal, round and reactive pupils present Neck Neck: Yes normal visual inspection Chest Chest palpation & inspection: normal inspection of the chest Resp Effort & Inspection: normal respiratory effort Auscultation: clear to auscultation bilaterally Cardio Palpation: normal PMI Rate: regular rate Rhythm: regular rhythm Heart sounds: S1 normal heart sound present, S2 normal heart sound present and no murmurs GI Inspection: Yes obesity Palpation (GI): Soft to palpation, Tenderness to palpation present (GI) (moderate diffuse upper abdominal tenderness) and No hepatosplenomegaly present Auscultation: normal bowel sounds Rectal Exam - Female: deferred Skin General skin exam: no rashes or lesions noted Neuro General: patient oriented x3, gait normal and moves all extremities Cranial nerves: Yes Equal, round and reactive pupils present Psych Appearance: grossly normal Mental Status: mental status grossly normal Assessment & Plan Assessment & Plan (1) Abdominal pain: Code(s): R10.9 - Unspecified abdominal pain (2) Intermittent constipation: Code(s): K59.09 - Other constipation (3) Obesity: Code(s): E66.9 - Obesity, unspecified (4) GERD (gastroesophageal reflux disease): Code(s): K21.9 - Gastro-esophageal reflux disease without esophagitis (5) Irritable bowel syndrome: Code(s): K58.9 - Irritable bowel syndrome without diarrhea (6) Pancreatic cyst: Comment: 8 mm cystic lesion in the pancreas - stable since 2013. Plan is to continue to follow with imaging every 2 years. If size increases to > 1 cms,she will need further evaluation with EUS/MRCP. 02/[address] scan showed Fatty lesion anterior body/tail of pancreas junction is stable. Code(s): K86.2 - Cyst of pancreas (7) Esophageal spasm: Code(s): K22.4 - Dyskinesia of esophagus (8) Elevated lipase: Code(s): R74.8 - Abnormal levels of other serum enzymes (9) Acute pancreatitis: Code(s): K85.90 - Acute pancreatitis without necrosis or infection, unspecified Plan 52 YF with htn, fibromyalgia, asthma, migraine BROWNE with long history of abdominal pain associated with diarrhea and bloating, constipation alternating with diarrhea with symptoms suggestive of outlet delay. Abdominal pain is likely due to IBS with constipation and diarrhea. Patient notes partial improvement in symptoms with senna, she has not used a suppository or enema in the past.? She tried dicyclomine in the past and was not helpful for abdominal pain. Patient had a colonoscopy on 11/18/19? for evaluation of rectal bleeding which revealed diverticulosis and no polyps.? Random biopsies obtained from the colon were negative for inflammation. 08/2020 [place]orectal manometry with balloon expulsion [place] [facility] [place]: IMPRESSIONS: Borderline anal hypertension and borderline anal hypocontractility (overall anal sphincter strength lower than average for gender) Abnormal balloon expulsion with normal manometric pattern of rectoanal coordination normal rectal propulsive force and normal anal relaxation with push) This is considered an inconclusive finding that can also be seen in normal controls according to the Wu classification. Mild rectal hypersensitivity suggestive of chronic constipation She complains of constipation x 2-3 days followed by soft/watery stools lasting for half a day. ?Patient was advised to take Miralax every other day for constipation and take Rifaximin x 14 days for suspected SIBO. Takes Miralax intermittently Pt was advised to go on a clear liquid diet and take Mag Citrate to clean out her colon. Then start taking Linzess for constipation. 01/30/22 - pt was advised stool studies, start a probiotic and increase sucralfate to 3-4 times daily 03/16/22 Pt was switched from Omeprazole to Pantoprazole 40 mg twice daily and started on Amitriptyline 25 mg at bedtime. 04/28/22 Amitriptyline dose was increased to 50 mg at bedtime Pt's wt gain is likely related to elevated TSH levels - repeat TSH planned in [address] Humphrey 11/30/22 Pt complains of left sided abd pain, bloating and worsening GERD symptoms after she was advised to take the Pantoprazole later in the day and stop sucralfate due to suspected drug interaction with Levothyroxine. Pt was advised to increase pantoprazole to 40 mg twice daily and amitriptyline to 75 mg at bedtime She will be scheduled for an EGD (last EGD in 2019 showed a small hiatal hernia and gastritis - no HP on bx) - scheduled on 12/22/22. 12/21/22 Pt seen with worsening upper abdominal pain, nausea, vomiting and unable to tolerate PO food. Pt had an elevated lipase on 12/18/22 Pt advised to return to the ED for repeat labs, lipase and a CT scan with IV contrast. She will need to be admitted if lipase remains elevated for bowel rest and IVF Repeat lipase was normal. ABD CT SCAN SHOWED: PANCREAS: Edematous appearing pancreas with peripancreatic stranding. This appears more pronounced than the 08/08/2020 examination. No peripancreatic fluid collections. No dilatation of the main pancreatic duct. CT findings were reviewed with the patient. She was advised to proceed with EGD on 12/22/2022 as scheduled. Order placed for MRCP for FU of pancreatitis Of note pt is status post lap macy and had a normal triglyceride level a few months ago. Pt has a FU appt on 01/12/23 Orders: Orders Complete Blood Count Auto Diff Today R10.9 - Unspecified abdominal pain, R74.8 - Abnormal levels of other serum enzymes Lipase Today R10.9 - Unspecified abdominal pain, R74.8 - Abnormal levels of other serum enzymes TSH reflex Free T4 Today E89.0 - Postprocedural hypothyroidism Liver Panel Today R10.9 - Unspecified abdominal pain, R74.8 - Abnormal levels of other serum enzymes C Reactive Protein Today R10.9 - Unspecified abdominal pain, R74.8 - Abnormal levels of other serum enzymes Calcium Today R10.9 - Unspecified abdominal pain, R74.8 - Abnormal levels of other serum enzymes MR abdomen wo/w con Today K85.90 - Acute pancreatitis without necrosis or infection, unspecified, R74.8 - Abnormal levels of other serum enzymes Immunoglobulin G Subclasses Today R10.9 - Unspecified abdominal pain, R74.8 - Abnormal levels of other serum enzymes Coding Level of Care Code Est Pt Level 4 (66740) Diagnoses Abdominal pain R10.9 Intermittent constipation K59.09 Obesity E66.9 GERD (gastroesophageal reflux disease) K21.9 Irritable bowel syndrome K58.9 Pancreatic cyst K86.2 Esophageal spasm K22.4 Elevated lipase R74.8 Acute pancreatitis K85.90 Time Spent (min) 22
[2022-12-21 07:40] VITALS: BP 163/102; PULSE 98; BMI 34.9
== END 2022-12-21 08:18 | disposition home or self-care (01) ==
PROVIDERS: PCP Internal Medicine; Visit Provider Internal Medicine Gastroenterology
DX: R10.9 Unspecified abdominal pain (principal); K59.09 Other constipation; E66.9 Obesity, unspecified; K21.9 Gastro-esophageal reflux disease without esophagitis; K58.9 Irritable bowel syndrome, unspecified; K86.2 Cyst of pancreas; K22.4 Dyskinesia of esophagus; R74.8 Abnormal levels of other serum enzymes; K85.90 Acute pancreatitis without necrosis or infection, unspecified
CPT/HCPCS: 99214

== ENCOUNTER → 2022-12-21 07:30 | Outpatient (BNVA) | payer OTHER, SELFPAY | PROVIDERS: PCP Internal Medicine; Visit Provider Internal Medicine Gastroenterology | DX: K59.09 Other constipation (principal); R10.9 Unspecified abdominal pain; K21.9 Gastro-esophageal reflux disease without esophagitis; K58.9 Irritable bowel syndrome, unspecified; K86.2 Cyst of pancreas; K22.4 Dyskinesia of esophagus; K85.90 Acute pancreatitis without necrosis or infection, unspecified; R74.8 Abnormal levels of other serum enzymes; E66.9 Obesity, unspecified; Z68.34 Body mass index [BMI] 34.0-34.9, adult | CPT/HCPCS: 99212 ==

== ENCOUNTER 2022-12-21 08:19 | Emergency (ER) | payer OTHER, SELFPAY ==
--- NOTE | ~2022-12-21 | CT_ITS ---
EXAMINATION: CT ABDOMEN AND PELVIS WITHOUT CONTRAST CLINICAL INFORMATION: Epigastric pain. COMPARISON: 08/08/2020 TECHNIQUE: Multidetector volumetric imaging was performed from the superior aspect of the liver through the pubic symphysis. Sagittal and coronal reformatted images were obtained on the technologist's workstation. This CT examination was performed using dose optimization techniques as appropriate, variously including the following: *Automated exposure control *Adjustment of mA and/or kV according to patient size (this includes techniques or standardized protocols for targeted exams where dose is matched to indication/reason for exam; i.e. extremities or head) *Use of iterative reconstruction technique DLP: 987 mGy-cm FINDINGS: LUNG BASES: Small pericardial effusion. LIVER, GALLBLADDER, AND BILIARY TREE: The liver is decreased in attenuation. No focal hepatic lesion or biliary ductal dilatation is present. The gallbladder is surgically absent. PANCREAS: Edematous appearing pancreas with peripancreatic stranding. This appears more pronounced than the 08/08/2020 examination. No peripancreatic fluid collections. No dilatation of the main pancreatic duct. SPLEEN: Unremarkable. ADRENAL GLANDS: Unremarkable. KIDNEYS AND URETERS: The kidneys are symmetric in size. Bilateral nonobstructing renal calculi. No hydronephrosis, hydroureter, or calculi seen. No perinephric stranding. BLADDER: Decompressed. GASTROINTESTINAL TRACT: Small hiatal hernia. Small and large bowel loops are of normal caliber. No small bowel obstruction. Appendix may be surgically absent. ABDOMINAL WALL: No significant hernia is appreciated. LYMPH NODES: No pathologic lymphadenopathy. VASCULAR: Normal caliber abdominal aorta. PELVIC VISCERA: Uterus is surgically absent. OSSEOUS STRUCTURES: No destructive bone lesions. CT/CT abdomen pelvis wo IV con IMPRESSION: Findings may represent acute pancreatitis. Advise correlation with pancreatic enzymes. Bilateral nephrolithiasis. No hydronephrosis.
[2022-12-21 08:29] VITALS: BP 188/122; PULSE 105; RESP 20; TEMP 36.9; O2SAT 98; BMI 34.9
[2022-12-21 08:35] VITALS: BP 167/112; PULSE 105; RESP 18; TEMP 36.7; O2SAT 97
--- NOTE | 2022-12-21 08:52 | ED_ITS ---
HPI - Abdominal Pain General Chief Complaint: Abdominal Pain Stated Complaint: sent from for tests Time Seen by Provider: 12/21/22 08:29 Source: patient Mode of arrival: ambulatory Limitations: no limitations History of Present Illness HPI narrative: Patient was seen this past Sunday for epigastric pain that is getting worse. Related Data Home Medications Medication Instructions Recorded Confirmed budesonide-formoterol HFA 160 2 puff inhalation BID 11/30/22 12/21/22 mcg-4.5 mcg/actuation aerosol inhaler (Symbicort) sumatriptan succinate 100 mg tablet mg PO 11/30/22 12/21/22 topiramate 50 mg tablet 50 mg PO BID 11/30/22 12/21/22 Previous Rx's Medication Instructions Recorded omalizumab 150 mg/mL subcutaneous 300 mg (2 mL) subcut Q2W #4 mL 03/25/20 syringe (Xolair) magnesium citrate 150 ml PO ONCE 1 day #150 mL 06/30/21 Ventolin HFA 90 mcg/actuation 2 puff inhalation Q4-6H PRN 12/29/21 aerosol inhaler (albuterol sulfate) shortness of breath or wheezing 30 days #1 ea metoprolol tartrate 50 mg tablet See Rx Instructions PO .COMPLEX 90 01/06/22 days #270 tabs famotidine 20 mg tablet 20 mg PO BEDTIME PRN for acid 03/20/22 reflux 30 days #30 tabs sucralfate 1 gram tablet 1 g PO BID 30 days #60 tabs 03/20/22 fluticasone furoate 200 1 inh inhalation DAILY 30 days #60 03/27/22 mcg-vilanterol 25 mcg/dose ea inhalation powder (Breo Ellipta) umeclidinium 62.5 mcg/actuation 1 inh inhalation DAILY 30 days #30 03/27/22 blister powder for inhalation ea (Incruse Ellipta) pregabalin 50 mg capsule (Lyrica) See Rx Instructions .Route 04/11/22 .COMPLEX #53 caps cholecalciferol (vitamin D3) 50 50 mcg PO DAILY 30 days #30 caps 05/04/22 mcg (2,000 unit) capsule qjroenuoiw-avopxawxqnero-gqanpwab 1 cap PO Q6H PRN headache #20 caps 05/23/22 50 mg-300 mg-40 mg capsule (Fioricet) clotrimazole-betamethasone 1 1 appl topical BID 5 days #45 grams 05/24/22 %-0.05 % topical cream hydroxyzine HCl 25 mg tablet 25 mg PO TID PRN for itch #21 tabs 05/24/22 atorvastatin 10 mg tablet (Lipitor) 10 mg PO DAILY #30 tabs 05/31/22 docusate sodium 100 mg capsule 100 mg PO BID #60 caps 06/04/22 polyethylene glycol 3350 17 17 g PO BID 60 days #2,040 grams 08/17/22 gram/dose oral powder (Gavilax) ipratropium 0.5 mg-albuterol 3 mg 3 ml inhalation Q4-6H PRN for 08/18/22 (2.5 mg base)/3 mL nebulization wheezing #180 mL soln diclofenac sodium 75 mg 75 mg PO BID PRN pain #60 tabs 09/28/22 tablet,delayed release levothyroxine 175 mcg tablet 175 mcg PO DAILY #90 tabs 10/16/22 amlodipine 10 mg tablet 10 mg PO DAILY #90 tabs 10/17/22 clobetasol 0.05 % topical cream 1 appl topical BID 4 weeks #45 10/17/22 grams amitriptyline 25 mg tablet 75 mg (3 x 25 mg) PO BEDTIME 60 11/30/22 days #180 tabs aluminum hydrox-magnesium carb 254 10 ml PO QID PRN dyspepsia #355 mL 12/18/22 mg-237.5 mg/5 mL oral suspension (Gaviscon Extra Strength) morphine 15 mg immediate release 15 mg PO Q4-6H PRN pain #10 tabs 12/18/22 tablet omeprazole 20 mg capsule,delayed 40 mg (2 x 20 mg) PO DAILY 30 days 12/18/22 release #60 caps hyoscyamine sulfate 0.125 mg 0.125 mg PO QID PRN abdominal 12/21/22 tablet (Levsin) discomfort #20 tabs Allergies Allergy/AdvReac Type Severity Reaction Status Date / Time pineapple [PINEAPPLE] Allergy Severe ANAPHYLAXIS Verified 12/21/22 07:37 adhesive tape Allergy Intermediate Blister Verified 12/21/22 07:37 Iodinated Contrast Media Allergy Intermediate SOB,RASH Verified 12/21/22 07:37 [IV Dye, Iodine Containing] levofloxacin [From Levaquin] Allergy Intermediate swelling/ra Verified 12/21/22 07:37 sh oxycodone [From Percocet] Allergy Intermediate rash/SOB Verified 12/21/22 07:37 aspirin [ASA] AdvReac Mild UPSET Verified 12/21/22 07:37 STOMACH Review of Systems Review of Systems Yes all other systems are reviewed and are negative Denies Sensory deficit (Neuro) [facility] Past Medical History Medical History Dysphagia Diarrhea Well woman exam Abnormal finding on EKG Hx of flexible sigmoidoscopy Internal derangement of right shoulder Lump of left breast Lump of right breast Lump of axillary tail of right breast Chronic constipation Rotator cuff impingement syndrome of left shoulder Right forearm pain Colitis Hypertensive urgency Rotator cuff impingement syndrome Lateral epicondylitis of both elbows Fall IBS (irritable bowel syndrome) Abdominal bloating Tendinopathy of left rotator cuff History of TIA (transient ischemic attack) Hypercholesterolemia Vitamin D deficiency Multinodular thyroid Pancreatic cyst Constipation Thyroid nodule Diarrhea Rectal bleeding Esophageal spasm GERD (gastroesophageal reflux disease) Hypertension Asthma Kidney stones History of migraine headaches Fibromyalgia Allergic rhinitis Sciatic nerve pain Ovarian cyst Hypothyroidism Surgical History History of arthroscopic surgery of shoulder Hx of eye surgery History of breast lump/mass excision Hx of hemorrhoidectomy Hx of tubal ligation History of esophagogastroduodenoscopy (EGD) History of colonoscopy (~11/16/19) H/O: hysterectomy History of thyroidectomy (~11/2018) History of kidney surgery Hx of bilateral breast reduction surgery Hx of appendectomy History of cholecystectomy (~2003) H/O lithotripsy Family History Family History Father Family history of high blood pressure History of high cholesterol Mother History of diabetes mellitus Family history of high blood pressure Family history of asthma History of fibromyalgia Liver disease Social History Social History Household Members: None Housing: House Are you a primary animal caregiver to a significant other at home: No Do you presently have visiting nurse or other home services: No Alcohol intake: never Patient Tobacco Use Status: Former Tobacco user Quit Date: 2013 Tobacco use type: Cigarette Years Smoked: 3 e-Cigarette/Vaping Use: Never Used Second Hand Smoke Exposure: No Substance Use Type: Marijuana service: No Current occupational status: disabled Current occupation: right handed Cognitive needs: No Hearing needs: No Vision needs: Yes Physical Exam ED Vital Signs: Vital Signs - 24 hr 12/21/22 08:29 12/21/22 08:35 12/21/22 10:54 Temperature 98.4 F 98.1 F 98.3 F Pulse Rate 105 H 105 H 91 Respiratory Rate 20 18 16 Blood Pressure 188/122 H 167/112 H 172/87 H Pulse Oximetry 98 97 94 Oxygen Delivery Method Room Air Room Air Room Air BMI result Body Mass Index 34.9 Const Other: Obese anxious female Nutritional Appearance: obese Orientation/consciousness: oriented to person and patient oriented x3 Limitations: no limitations HENMT Head: Yes normal to inspection Ears: external ears normal General nose exam: Normal external nose present Mouth: Normal oral and palatal mucosa present and oropharynx normal Throat: Yes posterior oropharynx normal Eyes General: appearance normal, both eyes and all related structures Neck Neck: Yes normal visual inspection Chest Chest palpation & inspection: normal inspection of the chest Resp Auscultation: clear to auscultation bilaterally Cardio Jugular venous distension: no JVD Rate: regular rate Rhythm: regular rhythm Heart sounds: S1 normal heart sound present and S2 normal heart sound present GI Other: soft abdomen with some pain and guarding in the epigastric area Auscultation: normal bowel sounds General: Yes no CVA tenderness Back/Spine/Pelvis Back: no CVA tenderness Skin General skin exam: no rashes or lesions noted Neuro General: oriented to person and patient oriented x3 Cranial nerves: Yes CN's II-XII intact bilaterally Motor exam (neuro): 5/5 motor strength present throughout Sensory Exam: No Sensory deficit (Neuro) Extrem General: Yes normal to inspection Psych Appearance: grossly normal Course Reevaluation(s) Reevaluation #1: Patient medicated, no elevation of lipase, ct scan normal will dc home on levsin for spasms Time: 12:01 Medical Decision Making Differential Diagnosis Differential Diagnoses: The differential diagnosis associated with the presentation includes (pancreatitis, hepatitis, perforated bowel, abdominal abscess all considered) Admission/Observation Consideration of admission/observation: Escalation of care including admission/observation considered (upon arrival patient was considered for admission) Lab Data MDM Lab Attestation statement: I reviewed the patient's lab results. (no WBC elevation, lipase normal) 12/21/22 09:01 12/21/22 09:01 Labs: Lab Results 12/21/22 12/21/22 Range/Units 09:01 09:11 WBC 8.9 (4.8-10.8) X10*3/uL RBC 5.00 (4.20-5.50) X10*6/uL Hgb 15.3 (12.0-16.0) g/dl Hct 45.0 (37.0-47.0) % MCV 90.0 (80.0-98.0) fL MCH 30.6 (27.0-33.0) pg MCHC 34.0 (31.0-35.0) g/dl RDW 13.2 (11.0-16.0) % Plt Count 308 (160-400) X10*3/uL MPV 10.2 (9.4-12.3) fL Immature Gran % (Auto) 0.3 (0.0-0.4) % Neut % (Auto) 66.6 (45-73) % Lymph % (Auto) 23.3 (20-40) % [place] % (Auto) 5.5 (2-11) % Eos % (Auto) 3.9 (0-4) % Baso % (Auto) 0.4 (0-2) % Lymph # (Auto) 2.1 (1.2-4.9) X10*3/uL [place] # (Auto) 0.5 (0.1-1.2) X10*3/uL Eos # (Auto) 0.4 (0.0-0.4) X10*3/uL Baso # (Auto) 0.0 (0.0-0.2) X10*3/uL Abs Immat Gran (auto) 0.03 (0.00-0.03) X10*3/uL Absolute Neuts (auto) 6.0 (2.0-8.3) x10*3/uL Absolute Nucleated RBC 0.000 (0.0-0.012) X10*3/uL Nucleated RBC % (auto) 0.0 (0.0-0.2) /100WBC Sodium 141 (135-145) mmol/L Potassium 3.5 (3.3-5.1) mmol/L Chloride 102 (96-108) mmol/L Carbon Dioxide 25 (22-29) mmol/L Anion Gap 18 (12-20) BUN 14 (9-16) mg/dL Creatinine 0.80 (0.5-1.4) mg/dL Estim Creat Clear Calc 96.0 Estimated GFR > 60 Random Glucose 108 (60-115) mg/dL Calcium 10.2 (8.4-10.2) mg/dL Total Bilirubin 0.4 (0.0-1.0) mg/dL Direct Bilirubin 0.2 (0.0-0.5) mg/dL AST 23 (5-31) U/L ALT 25 (0-31) U/L Alkaline Phosphatase 77 (39-117) U/L Total Protein 8.6 H (6.5-8.0) g/dL Albumin 4.4 (3.5-5.0) g/dL Lipase 14 (8-78) U/L Urine Color Dark Yellow Urine Appearance Clear Urine pH 6.0 (5.0-9.0) Ur Specific Bryant 1.025 (1.005-1.025) Urine Protein 100 (2+) H (Neg-Trace) mg/dL Urine Glucose (UA) Negative (Negative) mg/dL Urine Ketones 40 (Negative) mg/dL Urine Blood Negative (Negative) Urine Nitrite Negative (Negative) Ur Leukocyte Esterase Negative (Negative) Urine RBC 3-5 H (0-2) /HPF Urine WBC 0-5 (0-5) /HPF Ur Squamous Epith Cells 11-20 (0-2) /HPF Urine Bacteria 1+ (None Seen) Hyaline Casts 3-5 (0-2) /LPF Independent Interpretation I performed an independent interpretation of an: CT Scan (normal pancreas, punctate stones in both kidneys with no hydronephrosis) Radiology Impression Discussion of test interpretation with radiology: I have reviewed the radiologist's reading. Independent Historian Clinical information obtained from an independent historian. History obtained from or confirmed by: Friend External Record Review External record reviewed: Prior outpatient labs and Prior outpatient radiology Prescription Management I considered prescription management with: Antibiotic (no source of infection seen) Medications Administered Discontinued Medications Generic Name Dose Route Start Last Admin Trade Name Freq PRN Reason Stop Dose Admin Diphenhydramine HCl 25 mg 12/21/22 08:57 12/21/22 09:21 Diphenhydramine Hcl 50 Mg/Ml Vial IVPUSH 12/21/22 08:58 25 mg ONCE ONE Administration Haloperidol Lactate 5 mg 12/21/22 08:57 12/21/22 09:22 Haloperidol Lactate 5 Mg/Ml Vial IVPUSH 12/21/22 08:58 5 mg ONCE ONE Administration Ketorolac Tromethamine 15 mg 12/21/22 08:57 12/21/22 09:22 Ketorolac Tromethamine 15 Mg/Ml Vial IVPUSH 12/21/22 08:58 15 mg ONCE ONE Administration Ondansetron HCl 4 mg 12/21/22 08:56 12/21/22 09:22 Ondansetron Hcl 4 Mg/2 Ml Vial IVPUSH 12/21/22 08:57 4 mg ONCE ONE Administration Pantoprazole Sodium 40 mg 12/21/22 08:57 12/21/22 09:22 Pantoprazole Sodium 40 Mg/10 Ml Vial IVPUSH 12/21/22 08:58 40 mg ONCE ONE Administration Discharge Plan Discharge Clinical Impression: Abdominal pain Patient Disposition: Home, Self-Care Instructions: Abdominal Pain (ED) Prescriptions: New hyoscyamine sulfate [Levsin] 0.125 mg tablet 0.125 mg PO QID PRN (Reason: abdominal discomfort) Qty: 20 0RF No Action omalizumab [Xolair] 150 mg/mL syringe 300 mg subcut Q2W Qty: 4 11RF albuterol sulfate [Ventolin HFA] 90 mcg/actuation HFA aerosol inhaler 2 puff inhalation Q4-6H PRN (Reason: shortness of breath or wheezing) 30 Days Qty: 1 6RF metoprolol tartrate 50 mg tablet See Rx Instructions PO .COMPLEX 90 Days Qty: 270 1RF Rx Instructions: Take 2 tablets in the morning and 1 tablet at night PO; famotidine 20 mg tablet 20 mg PO BEDTIME PRN (Reason: for acid reflux) 30 Days Qty: 30 1RF sucralfate 1 gram tablet 1 g PO BID 30 Days Qty: 60 3RF fluticasone furoate-vilanterol [Breo Ellipta] 200-25 mcg/dose blister with device 1 inh inhalation DAILY 30 Days Qty: 60 6RF Incruse Ellipta 62.5 mcg/actuation blister with device 1 inh inhalation DAILY 30 Days Qty: 30 6RF cholecalciferol (vitamin D3) 50 mcg (2,000 unit) capsule 50 mcg PO DAILY 30 Days Qty: 30 11RF docusate sodium 100 mg capsule 100 mg PO BID Qty: 60 0RF polyethylene glycol 3350 [Gavilax] 17 gram/dose powder 17 g PO BID 60 Days Qty: 2040 2RF ipratropium-albuterol 0.5 mg-3 mg(2.5 mg base)/3 mL solution for nebulization 3 ml inhalation Q4-6H PRN (Reason: for wheezing) Qty: 180 3RF levothyroxine 175 mcg tablet 175 mcg PO DAILY Qty: 90 1RF clobetasol 0.05 % cream 1 appl topical BID 28 Days Qty: 45 1RF Rx Instructions: Then maintenance therapy for 2-3 times per week amlodipine 10 mg tablet 10 mg PO DAILY Qty: 90 1RF omeprazole 20 mg capsule,delayed release(DR/EC) 40 mg PO DAILY 30 Days Qty: 60 0RF Gaviscon Extra Strength 254-237.5 mg/5 mL suspension 10 ml PO QID PRN (Reason: dyspepsia) Qty: 355 0RF morphine 15 mg tablet 15 mg PO Q4-6H PRN (Reason: pain) Qty: 10 0RF Rx Instructions: The patient may ask for partial fill; Partial Fill upon patient request. zbdllwybct-tsghzxfkxwolw-keit [Fioricet] 50-300-40 mg capsule 1 cap PO Q6H PRN (Reason: headache) Qty: 20 0RF atorvastatin [Lipitor] 10 mg tablet 10 mg PO DAILY Qty: 30 4RF diclofenac sodium 75 mg tablet,delayed release (DR/EC) 75 mg PO BID PRN (Reason: pain) Qty: 60 0RF magnesium citrate Solution 150 ml PO ONCE 1 Days Qty: 150 0RF pregabalin [Lyrica] 50 mg capsule See Rx Instructions .ROUTE .COMPLEX Qty: 53 1RF Rx Instructions: take 1 capsule (50mg) po at bedtime for 1 week, then increase to 1 capsule (50mg) po BID as tolerated. hydroxyzine HCl 25 mg tablet 25 mg PO TID PRN (Reason: for itch) Qty: 21 0RF clotrimazole-betamethasone 1-0.05 % cream 1 appl topical BID 5 Days Qty: 45 0RF topiramate 50 mg tablet 50 mg PO BID sumatriptan succinate 100 mg tablet PO budesonide-formoterol [Symbicort] 160-4.5 mcg/actuation HFA aerosol inhaler 2 puff inhalation BID amitriptyline 25 mg tablet 75 mg PO BEDTIME 60 Days Qty: 180 2RF Referrals: Po,Barak Fair MD [Primary Care Provider] - 5 days
[2022-12-21 09:04] LABS: MANUAL DIFF FLAG NO
[2022-12-21 09:08] LABS: Basophils Percent Auto 0.4 % (0-2); Eosinophils Absolute Auto 0.4 X10*3/uL (0.0-0.4); Eosinophils Percent Auto 3.9 % (0-4); Hemoglobin 15.3 g/dl (12.0-16.0); Imm Gran Abs Auto 0.03 X10*3/uL (0.00-0.03); Imm Gran Pct Auto 0.3 % (0.0-0.4); Lymphocytes Absolute Auto 2.1 X10*3/uL (1.2-4.9); Lymphocytes Percent Auto 23.3 % (20-40); Mean Corpuscular Hemoglobin 30.6 pg (27.0-33.0); Mean Platelet Volume 10.2 fL (9.4-12.3); Monocytes Absolute Auto 0.5 X10*3/uL (0.1-1.2); Monocytes Percent Auto 5.5 % (2-11); Neutrophils Percent Auto 66.6 % (45-73); Platelet Count 308 X10*3/uL (160-400); Red Cell Distribution Width 13.2 % (11.0-16.0); White Blood Count 8.9 X10*3/uL (4.8-10.8)
--- NOTE | 2022-12-21 09:10 | PC.NURSE ---
pt is alert and oriented, skin appropriate for ethnicity, respirations even and unlabored, pt reports entire upper abd pain for months but worse for the last three weeks, with nausea and vomiting intermittent denies diarrhea, pt is being followed by GI specialist, abd is soft but tender, also reporting flank/kidney pain.
[2022-12-21 09:19] LABS: Appearance Urine Clear; Color Urine Dark Yellow; Glucose Urine UA Negative (Negative); Leukocyte Esterase Urine Negative (Negative); Nitrite Urine Negative (Negative); Specific Gravity - Urine 1.025 (1.005-1.025); UMIC TRIGGER UACC YES; Urine Blood Negative (Negative); Urine Ketones 40 mg/dL (Negative); Urine Protein 100 (2+) mg/dL (Neg-Trace)
[2022-12-21 09:21] LABS: Alanine Aminotransferase 25 U/L (0-31); Albumin Level 4.4 g/dL (3.5-5.0); Alkaline Phosphatase 77 U/L (39-117); Anion Gap 18 (12-20); Aspartate Amino Transferase 23 U/L (5-31); Bilirubin Direct 0.2 mg/dL (0.0-0.5); Bilirubin Total 0.4 mg/dL (0.0-1.0); Blood Urea Nitrogen 14 mg/dL (9-16); Calcium 10.2 mg/dL (8.4-10.2); Carbon Dioxide 25 mmol/L (22-29); Chloride 102 mmol/L (96-108); Estimated Glomerular Filt Rate > 60; Glucose Random 108 mg/dL (60-115); Potassium 3.5 mmol/L (3.3-5.1); Sodium 141 mmol/L (135-145); Total Protein 8.6 g/dL (6.5-8.0)
[2022-12-21] MEDS: diphenhydrAMINE HCL 50 MG/ML VIAL 25 MG IVPUSH (09:21)
[2022-12-21] MEDS: Ketorolac Tromethamine 15 MG/ML VIAL IVPUSH (09:22)
[2022-12-21] MEDS: ondansetron HCL 4 MG/2 ML VIAL IVPUSH (09:22)
[2022-12-21] MEDS: Pantoprazole Sodium 40 MG/10 ML VIAL IVPUSH (09:22)
[2022-12-21] MEDS: Haloperidol Lactate 5 MG/ML VIAL IVPUSH (09:22)
[2022-12-21 09:23] LABS: Bacteria Urine 1+ (None Seen); WBC Urine 0-5 /HPF (0-5)
[2022-12-21 09:51] LABS: Lipase 14 U/L (8-78)
--- NOTE | 2022-12-21 10:24 | PC.NURSE ---
pt is currently asleep respirations even and unlabored
[2022-12-21 10:54] VITALS: BP 172/87; PULSE 91; RESP 16; TEMP 36.8; O2SAT 94
[2022-12-21 12:53] VITALS: BP 167/115; PULSE 106; RESP 18; O2SAT 96
[2022-12-21 16:03] LABS: Thyroid Stimulating Hormone 45.79 uIU/mL (0.32-4.0)
== END 2022-12-21 12:54 | disposition home or self-care (01) ==
PROVIDERS: Internal Medicine Gastroenterology; Emergency Provider Emergency Medicine; PCP Internal Medicine
DX: R10.13 Epigastric pain (principal); Z87.891 Personal history of nicotine dependence; Z79.899 Other long term (current) drug therapy
CPT/HCPCS: 36415; 74176; 80053; 81001; 82248; 83690; 84443; 85025; 96374; 96375; 99284; J1200; J1885; J2405

== ENCOUNTER 2022-12-22 12:03 | Day surgery (SDC) | payer OTHER, SELFPAY ==
--- NOTE | 2022-12-20 14:32 | HO.ANESPROP2 ---
HPI - Anesthesia Eval Consult details Narrative: 52yo F for Upper Endoscopy [facility] [place] ED 12/18/22 with gastritis PMFSH Active Problems Active Problems: All Active Problems (Updated 12/19/22 @ 00:01 by Nadia Hester) Abdominal pain (Acute) PND (paroxysmal nocturnal dyspnea) (Acute) Right elbow pain (Acute) Migraine (Acute) Skin candidiasis (Acute) Pruritic rash (Acute) Intermittent constipation (Acute) Lichen simplex chronicus (Acute) Obesity (Acute) GERD (gastroesophageal reflux disease) (Acute) Vulvar lesion (Acute) Irritable bowel syndrome (Acute) Post-surgical hypothyroidism (Acute) History of repair of right rotator cuff (Acute) Environmental allergies (Acute) Depression (Acute) Adhesive capsulitis of left shoulder (Acute) Complete rotator cuff tear or rupture of right shoulder, not specified as traumatic (Acute) Hypercholesterolemia (Acute) Vitamin D deficiency (Acute) Pancreatic cyst (Acute) Hypertension (Acute) Asthma (Acute) Esophageal spasm (Acute) Fibromyalgia (Acute) Past Medical History Medical History Abdominal bloating Abnormal finding on EKG Allergic rhinitis Asthma Chronic constipation Colitis Constipation Diarrhea Diarrhea Dysphagia Esophageal spasm Fall Fibromyalgia GERD (gastroesophageal reflux disease) History of migraine headaches History of TIA (transient ischemic attack) Hx of flexible sigmoidoscopy Hypercholesterolemia Hypertension Hypertensive urgency Hypothyroidism IBS (irritable bowel syndrome) Internal derangement of right shoulder Kidney stones Lateral epicondylitis of both elbows Lump of axillary tail of right breast Lump of left breast Lump of right breast Multinodular thyroid Ovarian cyst Pancreatic cyst Rectal bleeding Right forearm pain Rotator cuff impingement syndrome Rotator cuff impingement syndrome of left shoulder Sciatic nerve pain Tendinopathy of left rotator cuff Thyroid nodule Vitamin D deficiency Well woman exam Family History Family History Father Family history of high blood pressure History of high cholesterol Mother History of diabetes mellitus Family history of high blood pressure Family history of asthma History of fibromyalgia Liver disease Family history of problems with anesthesia: No Surgical History Surgical History H/O lithotripsy H/O: hysterectomy History of arthroscopic surgery of shoulder History of breast lump/mass excision History of cholecystectomy (~2003) History of colonoscopy (~11/16/19) History of esophagogastroduodenoscopy (EGD) History of kidney surgery History of thyroidectomy (~11/2018) Hx of appendectomy Hx of bilateral breast reduction surgery Hx of eye surgery Hx of hemorrhoidectomy Hx of tubal ligation History of Problems with Anesthesia: No Social History Social History Household Members: None Housing: House Are you a primary career and guidance counselor to a significant other at home: No Do you presently have visiting nurse or other home services: No Alcohol intake: never Patient Tobacco Use Status: Former Tobacco user Quit Date: 2013 Tobacco use type: Cigarette Years Smoked: 3 e-Cigarette/Vaping Use: Never Used Second Hand Smoke Exposure: No Substance Use Type: Marijuana service: No Current occupational status: disabled Current occupation: right handed Cognitive needs: No Hearing needs: No Vision needs: Yes Meds Allergies Allergy/AdvReac Type Severity Reaction Status Date / Time pineapple [PINEAPPLE] Allergy Severe ANAPHYLAXIS Verified 11/30/22 13:35 adhesive tape Allergy Intermediate Blister Verified 11/30/22 13:35 Iodinated Contrast Media Allergy Intermediate SOB,RASH Verified 11/30/22 13:35 [IV Dye, Iodine Containing] levofloxacin [From Levaquin] Allergy Intermediate swelling/ra Verified 11/30/22 13:35 sh oxycodone [From Percocet] Allergy Intermediate rash/SOB Verified 11/30/22 13:35 aspirin [ASA] AdvReac Mild UPSET Verified 11/30/22 13:35 STOMACH Home Medications Medication Instructions Recorded Confirmed Last Taken Type budesonide-formoterol HFA 160 2 puff inhalation BID 11/30/22 11/30/22 Unknown History mcg-4.5 mcg/actuation aerosol inhaler (Symbicort) sumatriptan succinate 100 mg tablet mg PO 11/30/22 11/30/22 Unknown History topiramate 50 mg tablet 50 mg PO BID 11/30/22 11/30/22 Unknown History Exam Exam Date and Time: December 20, 2022 1432 Pertinent Lab Results Pertinent Lab Results: Laboratory Tests 12/18/22 08:57 WBC 12.8 H Hgb 15.9 Hct 46.1 Plt Count 282 Sodium 140 Potassium 3.4 Chloride 104 Carbon Dioxide 23 BUN 8 L Creatinine 0.76 Narrative Narrative: EKG 04/2022 Vent. Rate : 106 BPM Atrial Rate : 106 BPM P-R Int : 154 ms QRS Dur : 074 ms QT Int : 362 ms P-R-T Axes : 027 -20 032 degrees QTc Int : 480 ms Sinus tachycardia Inferior infarct , age undetermined Cannot rule out Anterior infarct , age undetermined Abnormal ECG When compared with ECG of 06-AUG-2020 12:16, Vent. rate has increased BY 37 BPM Minimal criteria for Anterior infarct are now Present Inferior infarct is now Present Assessment and Plan Assessment Anesthesia Assessment: Chart Reviewed Final Anesthetic Review Family History of Problems with Anesthesia: No History of Problems with Anesthesia: No
[2022-12-20 14:35] VITALS: BMI 38.7
--- NOTE | 2022-12-22 13:41 | MHC.SHP ---
Pre-Procedural Eval Section A Date of Service: 12/22/22 The patient is an INPATIENT: No Changes since office visit: Yes Patient answered all questions; No Cold of Flu in the past 2 weeks, No New Medical Problems and No Changes in Medication The History & Physical has been completed within 30 days and I have reviewed it.: Yes Section B Chief Complaint: Gastro-esophageal reflux disease without esophagit Allergies: Allergies Allergy/AdvReac Type Severity Reaction Status Date / Time pineapple [PINEAPPLE] Allergy Severe ANAPHYLAXIS Verified 12/21/22 07:37 adhesive tape Allergy Intermediate Blister Verified 12/21/22 07:37 Iodinated Contrast Media Allergy Intermediate SOB,RASH Verified 12/21/22 07:37 [IV Dye, Iodine Containing] levofloxacin [From Levaquin] Allergy Intermediate swelling/ra Verified 12/21/22 07:37 sh oxycodone [From Percocet] Allergy Intermediate rash/SOB Verified 12/21/22 07:37 aspirin [ASA] AdvReac Mild UPSET Verified 12/21/22 07:37 STOMACH Plan Diagnosis/Plan: Unchanged I have reviewed the history and physical and performed a pertinent physical examination on my patient. No changes have occurred unless specified. Time Spent With Patient Time: Total time managing care of this patient today ____ minutes.
--- NOTE | 2022-12-22 13:52 | P.CONAN_ITS ---
[facility] Active Problems Active Problems: All Active Problems (Updated 12/21/22 @ 15:20 by Sky Horton MD) Acute pancreatitis (Acute) Elevated lipase (Acute) Abdominal pain (Acute) PND (paroxysmal nocturnal dyspnea) (Acute) Right elbow pain (Acute) Migraine (Acute) Skin candidiasis (Acute) Pruritic rash (Acute) Intermittent constipation (Acute) Lichen simplex chronicus (Acute) Obesity (Acute) GERD (gastroesophageal reflux disease) (Acute) Vulvar lesion (Acute) Irritable bowel syndrome (Acute) Post-surgical hypothyroidism (Acute) History of repair of right rotator cuff (Acute) Environmental allergies (Acute) Depression (Acute) Adhesive capsulitis of left shoulder (Acute) Complete rotator cuff tear or rupture of right shoulder, not specified as traumatic (Acute) Hypercholesterolemia (Acute) Vitamin D deficiency (Acute) Pancreatic cyst (Acute) Hypertension (Acute) Asthma (Acute) Esophageal spasm (Acute) Fibromyalgia (Acute) Past Medical History Medical History Dysphagia Diarrhea Well woman exam Abnormal finding on EKG Hx of flexible sigmoidoscopy Internal derangement of right shoulder Lump of left breast Lump of right breast Lump of axillary tail of right breast Chronic constipation Rotator cuff impingement syndrome of left shoulder Right forearm pain Colitis Hypertensive urgency Rotator cuff impingement syndrome Lateral epicondylitis of both elbows Fall IBS (irritable bowel syndrome) Abdominal bloating Tendinopathy of left rotator cuff History of TIA (transient ischemic attack) Hypercholesterolemia Vitamin D deficiency Multinodular thyroid Pancreatic cyst Constipation Thyroid nodule Diarrhea Rectal bleeding Esophageal spasm GERD (gastroesophageal reflux disease) Hypertension Asthma Kidney stones History of migraine headaches Fibromyalgia Allergic rhinitis Sciatic nerve pain Ovarian cyst Hypothyroidism Family History Family History Father Family history of high blood pressure History of high cholesterol Mother History of diabetes mellitus Family history of high blood pressure Family history of asthma History of fibromyalgia Liver disease Family history of problems with anesthesia: No Surgical History Surgical History History of arthroscopic surgery of shoulder Hx of eye surgery History of breast lump/mass excision Hx of hemorrhoidectomy Hx of tubal ligation History of esophagogastroduodenoscopy (EGD) History of colonoscopy (~11/16/19) H/O: hysterectomy History of thyroidectomy (~11/2018) History of kidney surgery Hx of bilateral breast reduction surgery Hx of appendectomy History of cholecystectomy (~2003) H/O lithotripsy History of Problems with Anesthesia: No Social History Social History Household Members: None Housing: House Are you a primary animal care worker to a significant other at home: No Do you presently have visiting nurse or other home services: No Alcohol intake: never Patient Tobacco Use Status: Former Tobacco user Quit Date: 2013 Tobacco use type: Cigarette Years Smoked: 3 e-Cigarette/Vaping Use: Never Used Second Hand Smoke Exposure: No Use of substances other than those prescribed or required for medical reasons: Unknown Substance Use Type: Marijuana Substance Use Type Other:: edibles Substance Use Frequency: Weekly Are you DNR?: No Advance Directives: No Advance Directives Information Provided: Yes service: No Current occupational status: disabled Current occupation: right handed Cognitive needs: No Hearing needs: No Vision needs: Yes Meds Allergies Allergy/AdvReac Type Severity Reaction Status Date / Time pineapple [PINEAPPLE] Allergy Severe ANAPHYLAXIS Verified 12/21/22 07:37 adhesive tape Allergy Intermediate Blister Verified 12/21/22 07:37 Iodinated Contrast Media Allergy Intermediate SOB,RASH Verified 12/21/22 07:37 [IV Dye, Iodine Containing] levofloxacin [From Levaquin] Allergy Intermediate swelling/ra Verified 12/21/22 07:37 sh oxycodone [From Percocet] Allergy Intermediate rash/SOB Verified 12/21/22 07:37 aspirin [ASA] AdvReac Mild UPSET Verified 12/21/22 07:37 STOMACH Active Medications: Current Medications Albuterol Sulfate (Albuterol Sulfate (0.083%) 2.5 Mg/3 Ml Vial.Neb) 2.5 mg INHALE ONCE PRN PRN Reason: Shortness of Breath/Wheezing Lactated Ringer's (Lr) 1,000 mls @ 100 mls/hr IVCONT .Q10H [facility] Home Medications Medication Instructions Recorded Confirmed Last Taken Type budesonide-formoterol HFA 160 2 puff inhalation BID 11/30/22 12/21/22 Unknown History mcg-4.5 mcg/actuation aerosol inhaler (Symbicort) sumatriptan succinate 100 mg tablet mg PO 11/30/22 12/21/22 Unknown History topiramate 50 mg tablet 50 mg PO BID 11/30/22 12/21/22 Unknown History Exam Exam Date and Time: December 22, 2022 1352 Height,Weight and Vital Signs: Height 5 ft 6 in Weight 108.862 kg Airway Mallampati Class: III TM Dist: >3cm Heart: rrr Lungs: clear Assessment and Plan Final Anesthetic Review Family History of Problems with Anesthesia: No History of Problems with Anesthesia: No NPO: Yes ASA Class: III Final Preanesthetic Review: No Changes in Pt Med Stat, Meds/Allgs Chart Reviewed, Consent Obtained/Reviewed and Anes Risks/Benef Reviewed Patient Risk: Intermediate Procedure Risk: Low Anesthetic Plan Anesthetic Plan: MAC: Disposition: Standard PACU
[2022-12-22 13:56] VITALS: BP 180/115; PULSE 77; RESP 20; TEMP 36.1; O2SAT 95
--- NOTE | 2022-12-22 14:26 | P.OP_ITS ---
Operative Note Operative Note Date of Service: 12/22/22 Narrative: FLEXIBLE TRANSORAL UPPER GASTROINTESTINAL ENDOSCOPY WITH BIOPSIES Pre-op diagnosis: GERD, abdominal pain Post-op diagnosis: GERD, hiatal hernia, gastritis, duodenal ulcers Endoscopist:? Sky Horton MD Anesthesia:?MAC Consent: Indications for the procedure and potential complications of bleeding, perforation, reaction to medications and missed diagnosis were discussed with the patient and informed consent was obtained. Instrument: Olympus GIF H 190 mid size upper endoscope Monitoring: Vital signs and clinical assessment, continuous EKG monitoring, Pulse oximetry, Carbon Dioxide monitoring and blood pressure monitoring were done throughout the procedure. Procedure: The patient was placed in the left lateral decubitis position and pre-procedure medications were administered and a bite block was placed. The endoscope was inserted into the mouth and advanced under direct vision to the third part of duodenum. A careful inspection was made as the upper endoscope was withdrawn including a retroflexed examination of the proximal stomach; Findings and interventions are described below. Findings: Larynx: Edema of arytenoid cartilages Esophagus: GE junction at 32 cms, hiatal hernia 32 to 36 cms. No esophagitis or Edward's. Biopsies were obtained from distal esophagus to check for esophagitis Stomach: Moderate diffuse gastric erythema. Biopsies were obtained from the gastric antrum and body. Grade 3 flap valve on retroflexed examination of the cardia. Duodenum: Two 2-3 mm superficial ulcers in the bulb and normal descending duodenum. Biopsies were obtained from 3rd part of the duodenum to check for celiac sprue Intervention: Biopsies as noted above Impression and Post Procedure Diagnosis: Endoscopy Findings: LARYNX: Changes suggestive of LPRD ESOPHAGUS: Hiatal hernia STOMACH: Diffuse gastritis DUODENUM: Two 2-3 mm superficial ulcers in the bulb and normal descending duod enum. Plan: Await pathology results Patient has an appointment on 01/12/23 in the GI [facility] with Sky Horton M.D. Above findings were reviewed with the patient and Hiatal Hernia and PUD handouts were given in the discharge area. BIOPSIES SHOWED: A. Small bowel, biopsy: Small bowel mucosa within normal limits; preserved villous architecture and no increased intraepithelial lymphocytes seen. B. Stomach, antrum, biopsy: Gastric antral mucosa with mild reactive gastropathy; negative for Helicobacter pylori, intestinal metaplasia and dysplasia. C. Duodenum, ulcer, biopsy: Superficial fragments of duodenal mucosa within normal limits; preserved villous architecture and no increased intraepithelial lymphocytes seen. D. Stomach, body, biopsy: Gastric body mucosa within normal limits; negative for Helicobacter pylori, intestinal metaplasia and dysplasia. E. Esophagus, distal, biopsy: Squamous mucosa within normal limits; negative for inflammation (including intraepithelial eosinophils), fungal organisms, intestinal metaplasia and dysplasia
[2022-12-22 14:56] VITALS: BP 179/95; PULSE 77; RESP 24; TEMP 36.4; O2SAT 93
[2022-12-22 15:11] VITALS: BP 171/105; PULSE 76; RESP 22; O2SAT 97
[2022-12-22 15:26] VITALS: BP 179/95; PULSE 77; RESP 22; TEMP 36.3; O2SAT 97
== END 2022-12-22 15:48 | disposition home or self-care (01) ==
PROVIDERS: PCP Internal Medicine; Visit Provider Internal Medicine Gastroenterology
PROC: 0DJ08ZZ Inspection of Upper Intestinal Tract, Via Natural or Artificial Opening Endoscopic (ICD-10-PCS; CPT 43235; principal; 2022-12-22 14:10)
DX: K26.9 Duodenal ulcer, unspecified as acute or chronic, without hemorrhage or perforation (principal); K29.60 Other gastritis without bleeding; K21.9 Gastro-esophageal reflux disease without esophagitis; K44.9 Diaphragmatic hernia without obstruction or gangrene; K59.09 Other constipation; I10 Essential (primary) hypertension; J45.909 Unspecified asthma, uncomplicated; E78.00 Pure hypercholesterolemia, unspecified; E55.9 Vitamin D deficiency, unspecified; M79.7 Fibromyalgia; Z79.51 Long term (current) use of inhaled steroids; Z79.899 Other long term (current) drug therapy; L23.1 Allergic contact dermatitis due to adhesives; Z88.1 Allergy status to other antibiotic agents; Z88.8 Allergy status to other drugs, medicaments and biological substances; Z91.041 Radiographic dye allergy status; Z88.5 Allergy status to narcotic agent; Z87.891 Personal history of nicotine dependence
CPT/HCPCS: 43239; 88305; 88342

== ENCOUNTER → 2022-12-22 12:03 | Outpatient (BNV) | payer OTHER, SELFPAY | PROVIDERS: PCP Internal Medicine; Visit Provider Internal Medicine Gastroenterology | DX: K21.9 Gastro-esophageal reflux disease without esophagitis (principal); K29.70 Gastritis, unspecified, without bleeding; K26.9 Duodenal ulcer, unspecified as acute or chronic, without hemorrhage or perforation | CPT/HCPCS: 43239 ==

== ENCOUNTER 2022-12-29 14:00 | Outpatient (REF) | payer OTHER, SELFPAY | END 2022-12-29 14:01 | disposition home or self-care (01) | LOC: HO.MDS 14:00 | PROVIDERS: Visit Provider Internal Medicine Pulmonary Disease | DX: J45.50 Severe persistent asthma, uncomplicated (principal) | CPT/HCPCS: 96372; J2357 ==

== ENCOUNTER 2023-01-05 08:27 | Outpatient (AMB) | payer OTHER, SELFPAY ==
--- NOTE | 2023-01-05 08:39 | A.OFFPC_ITS ---
Vital Signs 01/05/23 08:40 Height 5 ft 6 in Weight 239 lb BMI 38.6 BP 168/98 H Blood Pressure Location Lt brachial Position Sitting Pulse 80 Pulse Source Pulse Oximeter Pulse Oximetry (%) 98 Oxygen Delivery Method Room Air Intake Visit Reasons: 3mon f/u Allergies pineapple [PINEAPPLE] Allergy (Severe, Verified 01/05/23 08:40) ANAPHYLAXIS adhesive tape Allergy (Intermediate, Verified 01/05/23 08:40) Blister Iodinated Contrast Media [IV Dye, Iodine Containing] Allergy (Intermediate, Verified 01/05/23 08:40) SOB,RASH levofloxacin [From Levaquin] Allergy (Intermediate, Verified 01/05/23 08:40) swelling/rash oxycodone [From Percocet] Allergy (Intermediate, Verified 01/05/23 08:40) rash/SOB aspirin [ASA] Adverse Reaction (Mild, Verified 01/05/23 08:40) UPSET STOMACH Tobacco use date assessed: 09/28/22 Dental Screening Dental Screen Date: 01/05/23 Did you have a dental visit in the last 12 months?: Yes Did you have a dental problem in the last 6 months where you did not have access to dental care?: No Was dental information given to patient?: Patient has dentist HPI 3mon f/u HPI Details 52-year-old obese female with GERD hypot hyroidism hypercholesterol E hypertension asthma migraines and constipation coming in for follow-up. May 2022 last seen patient's colonoscopy is up-to-date February 2022. Review of the notes for the Xolair October receives Xolair. Patient also had endoscopy November 2022 showing normal. Patient has complained of diarrhea and abdominal bloating incidentally found right lower pole kidney stones and a fatty lesion in pancreas which is stable since 2013 if increase more than 1 cm will need MRCP. For the IBS. Patient also follows up with Pulmonary for the asthma Breo, albuterol and Xolair. concern on BP , on metoprolol, amlodipine. chest pain intermittent- while sitting no exertion venous no nausea no vomiting patient did indicate that when she stretches out her arms the pain is duplicated. Discussed about chest pains to be sure will get stress test. But discussed that most likely musculoskeletal as well as pulmonary problem. Patient is not sure about inhaler in will call back with the needs of the inhaler she is taking. Meanwhile incidentally found to have bilateral renal calculi will do an ultrasound to define the kidney stones and will get urology evaluation. Discussed about the thyroid that needs to be retested as she has been taking Carafate with it before changes in medication done. [facility] Medical History (Updated 01/05/23 @ 09:27 by Barak Junior MD) Dysphagia Diarrhea Well woman exam Abnormal finding on EKG Hx of flexible sigmoidoscopy Internal derangement of right shoulder Lump of left breast Lump of right breast Lump of axillary tail of right breast Chronic constipation Rotator cuff impingement syndrome of left shoulder Right forearm pain Colitis Hypertensive urgency Rotator cuff impingement syndrome Lateral epicondylitis of both elbows Fall IBS (irritable bowel syndrome) Abdominal bloating Tendinopathy of left rotator cuff History of TIA (transient ischemic attack) Hypercholesterolemia Vitamin D deficiency Multinodular thyroid Pancreatic cyst Constipation Thyroid nodule Diarrhea Rectal bleeding Esophageal spasm GERD (gastroesophageal reflux disease) Hypertension Asthma Kidney stones History of migraine headaches Fibromyalgia Allergic rhinitis Sciatic nerve pain Ovarian cyst Hypothyroidism Surgical History (Updated 12/29/22 @ 11:30 by Pat Jeffery) History of arthroscopic surgery of shoulder Hx of eye surgery History of breast lump/mass excision Hx of hemorrhoidectomy Hx of tubal ligation History of esophagogastroduodenoscopy (EGD) History of colonoscopy (~11/16/19) H/O: hysterectomy History of thyroidectomy (~11/2018) History of kidney surgery Hx of bilateral breast reduction surgery Hx of appendectomy History of cholecystectomy (~2003) H/O lithotripsy Family History Father Family history of high blood pressure History of high cholesterol Mother History of diabetes mellitus Family history of high blood pressure Family history of asthma History of fibromyalgia Liver disease Social History Household Members: None Housing: House Are you a primary critical care educator to a significant other at home: No Do you presently have visiting nurse or other home services: No Alcohol intake: never Patient Tobacco Use Status: Former Tobacco user Quit Date: 2013 Tobacco use type: Cigarette Years Smoked: 3 e-Cigarette/Vaping Use: Never Used Second Hand Smoke Exposure: No Substance Use Type: Marijuana service: No Current occupational status: disabled Current occupation: right handed Cognitive needs: No Hearing needs: No Vision needs: Yes Female Reproductive History Menstrual Age of Menarche: 14 Questionnaire PHQ-9 Over the last 2 weeks, how often have you been bothered by any of the following problems? 1. Little interest or pleasure in doing things: nearly every day 2. Feeling down, depressed, or hopeless: nearly every day 3. Trouble falling or staying asleep, or sleeping too much: nearly every day 4. Feeling tired or having little energy: nearly every day 5. Poor appetite or overeating: not at all 6. Feeling bad about yourself - or that you are a failure or have let yourself or your family down: nearly every day 7. Trouble concentrating on things, such as reading the newspaper or watching television: nearly every day 8. Moving or speaking so slowly that other people could have noticed. Or the opposite - being so fidgety or restless that you have been moving around a lot more than usual: not at all 9. Thoughts that you would be better off or of hurting yourself in some way: not at all Total score: 18 Depression Screening Interpretation: Positive Depression Screening Follow-up: Community Mental Health Worker F/U Depression Screening Done: Yes Source: Developed by Drs. Rainer Caldwell, Ashanti Malone, Hank arguelles nd colleagues, with an educational mayco from [employer]. Thrive Questionnaire Date Thrive assessed: 05/10/22 AUDIT C Alcohol Use Questionnaire (AUDIT-C) 1. How often do you have a drink containing alcohol?: Never Total Score: 0 Score Reviewed/Action Taken: No INDRA-7 AMB Questionnaire INDRA-7 Date INDRA - 7 assessed: 04/19/22 Source: Developed by Drs. Rainer Caldwell, Ashanti Malone, Hank Dewitt and colleagues, with an educational mayco from [employer]. Physical exam (Primary Care) Vital Signs: Last Vital Signs Pulse 80 01/05/23 08:40 BP 168/98 H 01/05/23 08:40 Pulse Ox 98 01/05/23 08:40 Oxygen Delivery Method Room Air 01/05/23 08:40 BMI result Body Mass Index 38.6 Tobacco/Smoking Status: Tobacco use Status Tobacco use date assessed 09/28/22 01/05/23 08:42 Patient Tobacco Use Status Former Tobacco user 01/05/23 08:42 Tobacco use type Cigarette 01/05/23 08:42 e-Cigarette/Vaping Use Never Used 01/05/23 08:42 PHQ-9: PHQ-9 Score PHQ-9: Total score 18 01/05/23 08:42 Depression Screening Interpretation: Positive Depression Screening Follow-up: Community Mental Health Worker F/U Thrive Assessment: Date of Thrive Assessment Date Thrive assessed 05/10/22 01/05/23 08:42 Const General: alert; No acute distress Eyes Conjunctivae: conjunctivae normal Resp Auscultation: clear to auscultation bilaterally Cardio Rate: regular rate Rhythm: regular rhythm GI Inspection: Yes normal to inspection Extrem General: Yes normal to inspection and No edema Assessment and Plan Assessment & Plan (1) Obesity: Code(s): E66.9 - Obesity, unspecified Plan: Diet and exercise (2) GERD (gastroesophageal reflux disease): Code(s): K21.9 - Gastro-esophageal reflux disease without esophagitis Plan: Avoid the foods that causes that usually spicy foods, tomato products, juices, coffee, soda and foods that your sensitive to. After eating do not lie down, allow 3-4 hours before in lie down. And keep the head of bed above 30 degrees to avoid the acid from going up. Patient follows up with Gastroenterology question of interaction with Carafate and levothyroxine and Carafate was discontinued presently on omeprazole and famotidine (3) Post-surgical hypothyroidism: Code(s): E89.0 - Postprocedural hypothyroidism Plan: TSH test in November very high question of absorption due to interaction with medication/thyroid medication. Discussed importance of taking thyroid medication by itself (4) Hypercholesterolemia: Comment: no RX Code(s): E78.00 - Pure hypercholesterolemia, unspecified Plan: Avoid fried foods, chicken skin, eggs, butter margarine, pastries and meat. Be it pork or beef they have a lot of cholesterol September 2022 last blood work LDL goal of less than 130 September 2022 tested 113 (5) Hypertension: Code(s): I10 - Essential (primary) hypertension Qualifiers: Hypertension type: essential hypertension Qualified Code(s): I10 - Essential (primary) hypertension Plan: Continue with blood pressure medication. Decrease salt intake and exercise patient is on amlodipine 10 mg once a day metoprolol 100 mg in the morning 50 mg in the afternoon. Blood pressure remains to be elevated would hold off on increasing the beta raven as the patient has asthma. Lisinopril 10 mg once a day started (6) Asthma: Code(s): J45.909 - Unspecified asthma, uncomplicated Qualifiers: Asthma severity: severe Asthma persistence: persistent Asthma complication type: unspecified Qualified Code(s): J45.50 - Severe persistent asthma, uncomplicated Plan: Patient will call back with clarification on her asthma medication Patient B's being followed up by Pulmonary on Xolair Ventolin Incruse and Breo (7) Intermittent constipation: Code(s): K59.09 - Other constipation Plan: Three rules for constipation 1. Diet need to have a high fiber diet less of meat 2. Increase oral fluids 3. Exercise patient has been prescribed MiraLax (8) Bilateral renal stones: Code(s): N20.0 - Calculus of kidney Plan: Increase oral fluids and ultrasound requested (9) Chest pain: Code(s): R07.9 - Chest pain, unspecified Plan: Will workup the chest pain. Low probability Orders: Orders Free T4 (Free Thyroxine) Today E89.0 - Postprocedural hypothyroidism CA stress test Today R07.9 - Chest pain, unspecified TSH reflex Free T4 12/12/22 E89.0 - Postprocedural hypothyroidism Thyroid Stimulating Hormone Today E89.0 - Postprocedural hypothyroidism US renal BI Today N20.0 - Calculus of kidney Referrals Urology Referral N20.0 - Calculus of kidney Medications: New lisinopril 10 mg PO DAILY 30 tabs 3RF I10 - Essential (primary) hypertension Refilled metoprolol tartrate Take 2 tablets in the morning and 1 tablet at night PO; 90 days 270 tabs 1RF Discontinued [id number] 50-300-40 mg (Fioricet) Discontinued Reason: Ancillary Entered New Order 1 cap PO Q6H PRN 20 caps 0RF headache morphine The patient may ask for partial fill; Partial Fill upon patient request. Discontinued Reason: Doctor's Order 15 mg PO Q4-6H PRN 10 tabs 0RF pain pregabalin (Lyrica) Discontinued Reason: Doctor's Order take 1 capsule (50mg) po at bedtime for 1 week, then increase to 1 capsule (50mg) po BID as tolerated. 53 caps 1RF sucralfate Discontinued Reason: Doctor's Order 1 g PO BID 30 days 60 tabs 3RF hydroxyzine HCl Discontinued Reason: Doctor's Order 25 mg PO TID PRN 21 tabs 0RF for itch R21 - Rash and other nonspecific skin eruption Coding Level of Care Code Est Pt Level 4 (83621) Diagnoses Obesity E66.9 GERD (gastroesophageal reflux disease) K21.9 Post-surgical hypothyroidism E89.0 Hypercholesterolemia E78.00 Essential hypertension I10 Hypertension type: essential hypertension Severe persistent asthma, unspecified whether complicated J45.50 Asthma severity: severe Asthma persistence: persistent Asthma complication type: unspecified Intermittent constipation K59.09 Bilateral renal stones N20.0 Chest pain R07.9 Additional Codes PHQ-9 - 21651 - PHQ-9 Billing: ([id number])
[2023-01-05 08:40] VITALS: BP 168/98; PULSE 80; O2SAT 98; BMI 38.6
== END 2023-01-05 09:33 | disposition home or self-care (01) ==
PROVIDERS: PCP Internal Medicine; Visit Provider Internal Medicine
DX: K21.9 Gastro-esophageal reflux disease without esophagitis (principal); J45.50 Severe persistent asthma, uncomplicated; E66.9 Obesity, unspecified; Z68.38 Body mass index [BMI] 38.0-38.9, adult; E89.0 Postprocedural hypothyroidism; E78.00 Pure hypercholesterolemia, unspecified; I10 Essential (primary) hypertension; K59.09 Other constipation; N20.0 Calculus of kidney; R07.9 Chest pain, unspecified
CPT/HCPCS: 99214

== ENCOUNTER 2023-01-12 07:33 | Outpatient (AMB) | payer OTHER, SELFPAY ==
--- NOTE | 2023-01-12 07:35 | MHC.OFFVIS ---
Intake Vital Signs 01/12/23 07:41 Height 5 ft 6 in Weight 210 lb BMI 33.9 BP 146/94 H Blood Pressure Location Lt brachial Position Sitting Pulse 90 Intake Visit Reasons: Follow up abd pain and GERD Intake Note: Patient follow up abdominal pain and GERD. Patient cc: abdominal pain with bloating, GERD, dysphagia and constipation. 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 Accompanied by: Self / Same As Patient Allergies pineapple [PINEAPPLE] Allergy (Severe, Verified 01/12/23 07:36) ANAPHYLAXIS adhesive tape Allergy (Intermediate, Verified 01/12/23 07:36) Blister Iodinated Contrast Media [IV Dye, Iodine Containing] Allergy (Intermediate, Verified 01/12/23 07:36) SOB,RASH levofloxacin [From Levaquin] Allergy (Intermediate, Verified 01/12/23 07:36) swelling/rash oxycodone [From Percocet] Allergy (Intermediate, Verified 01/12/23 07:36) rash/SOB aspirin [ASA] Adverse Reaction (Mild, Verified 01/12/23 07:36) UPSET STOMACH Medication List - Last Reconciled 01/12/23 by Sky Horton MD aluminum hydrox-magnesium carb 254-237.5 mg/5 mL (Gaviscon Extra Strength) 10 mL PO QID PRN amitriptyline 75 mg (3 x 25 mg) PO BEDTIME 60 days amlodipine 10 mg PO DAILY atorvastatin (Lipitor) 10 mg PO DAILY budesonide-formoterol 160-4.5 mcg/actuation (Symbicort) 2 puffs inhalation BID cholecalciferol (vitamin D3) 50 mcg PO DAILY 30 days clobetasol 0.05% 1 appl topical BID 4 weeks clotrimazole-betamethasone 1-0.05 % 1 appl topical BID 5 days diclofenac sodium 75 mg PO BID PRN docusate sodium 100 mg PO BID famotidine 20 mg PO BEDTIME PRN 30 days fluticasone furoate-vilanterol 200-25 mcg/dose (Breo Ellipta) 1 inh inhalation DAILY 30 days hyoscyamine sulfate (Levsin) 0.125 mg PO QID PRN ipratropium-albuterol 0.5 mg-3 mg(2.5 mg base)/3 mL 3 mL inhalation Q4-6H PRN levothyroxine 175 mcg PO DAILY lisinopril 10 mg PO DAILY magnesium citrate 150 mL PO ONCE 1 day metoprolol tartrate Take 2 tablets in the morning and 1 tablet at night PO; 90 days omalizumab (Xolair) 300 mg (2 mL) subcut Q2W omeprazole 40 mg (2 x 20 mg) PO DAILY 30 days polyethylene glycol 3350 (Gavilax) 17 grams PO BID 60 days umeclidinium 62.5 mcg/actuation (Incruse Ellipta) 1 inh inhalation DAILY 30 days Ventolin HFA 90 mcg/actuation (albuterol sulfate) 2 puffs inhalation Q4-6H PRN 30 days NS HPI Follow up abd pain and GERD HPI Details GI Clinic visit for this 52-year-old female for evaluation of diarrhea and abdominal bloating Pt had severe watery diarrhea which lasted for several weeks after her thyroid surgery. Pt [place] [facility] [place] with worsening abd pain and labs showed an elevated lipase of 118 LABS IN [facility]: 11/15 REVIEWED. ? Stool studies were negative for C Diff, calprotectin was normal and stool fat was elevated ? Stool electrolytes could not be performed since stool was formed ? Serum gastrin was elevated and normal on repeat testing after holding Omeprazole. ?IMAGING STUDIES: 03/16/22 BARIUM SWALLOW SHOWED: -Spontaneous gastroesophageal reflux to the level mid thoracicesophagus. -Bridging anterior osteophytes mid to lower cervical spine. Swellingfunction unremarkable. -No stricture, ulceration, or hiatal hernia. 01/[address] SCAN SHOWED:? 2 mm small radiopaque calculi nonobstructive lower pole right kidney? and mid pole left kidney. There are extrarenal kidney pelvises seen. ? Mild constipation without obstruction. No evidence of panniculitis or diverticulitis. Small hiatal hernia. ? Fatty lesion anterior body/tail of pancreas junction is stable. 02/15/2018:? ABD MRI SHOWED:Status post cholecystectomy.? No MRI evidence of intra or extrahepatic biliary obstruction, filling defects or stones.Pancreatic metrics incised are normal, no pancreatic mass found. ENDOSCOPIC STUDIES: 12/22/22 EGD SHOWED: Endoscopy Findings: LARYNX: Changes suggestive of LPRD ESOPHAGUS: Hiatal hernia STOMACH: Diffuse gastritis DUODENUM: Two 2-3 mm superficial ulcers in the bulb and normal descending duodenum. Plan: Above findings were reviewed with the patient and Hiatal Hernia and PUD handouts were given in the discharge area. BIOPSIES SHOWED: A. Small bowel, biopsy: Small bowel mucosa within normal limits; preserved villous architecture and no increased intraepithelial lymphocytes seen. B. Stomach, antrum, biopsy: Gastric antral mucosa with mild reactive gastropathy; negative for Helicobacter pylori, intestinal metaplasia and dysplasia. C. Duodenum, ulcer, biopsy: Superficial fragments of duodenal mucosa within normal limits; preserved villous architecture and no increased intraepithelial lymphocytes seen. D. Stomach, body, biopsy: Gastric body mucosa within normal limits; negative for Helicobacter pylori, intestinal metaplasia and dysplasia. E. Esophagus, distal, biopsy: Squamous mucosa within normal limits; negative for inflammation (including intraepithelial eosinophils), fungal organisms, intestinal metaplasia and dysplasia 03/13/22 COLONOSCOPY SHOWED: Two small adenomatous polyps removed Moderate diverticulosis seen in the []colon Moderate hemorrhoids on retroflexed exam. Plan:? Repeat Colonoscopy in 5 yrs. 11/18/19 COLONOSCOPY SHOWED:? No polyps were detected? Random bx obtained from the colon ? Moderate diverticulosis seen in the sigmoid colon ? Moderate hemorrhoids on retroflexed exam. ? Plan: Patient has an appointment on 12/05/19 in the GI Clinic with Sky Horton M.D.-. ? Repeat Colonoscopy interval based on path results in 5 years if colon bxs are normal. ? BIOPSIES SHOWED: ? A. Colon, random, biopsy: Colonic mucosa within normal limits; negative for active, chronic or microscopic colitis. ? B. Rectum, biopsy: Colonic mucosa within normal limits; negative for active, chronic or microscopic colitis. ?09/2017 COLONOSCOPY SHOWED: ? Two adenomatous and one hyperplastic polyps removed ? Patchy erythmea in the descending colon - likely resolving infectious or ? ischemic colitis - possible source of rectal bleeding. ? Random biopsies obtained from the right and left colon which were normal. ? Mild diverticulosis seen in the sigmoid colon ? Small hemorrhoids on retroflexed exam. ? Plan: ? Patient has an appointment on 10/23/17 in the GI Clinic with Sky Horton M.D. ? Repeat Colonoscopy in 5 years if polyps are adenomatous ?02/04/19 EGD SHOWED: ? Esophagus: GE junction at 32 cms, small hiatal hernia 32 to 35 cms. A 1 cms focal ulcer at GE junction - likely healing MW tear or esophagitis due to GERD. ? Stomach: Moderate erythema with healing erosions in the gastric body and hemorrhagic erosions in the antrum. Biopsies were obtained. Grade 3 flap valve on retroflexed examination of the cardia. ? Duodenum: Normal bulb and descending duodenum. Biopsies obtained from 3rd part of duodenum to check for celiac sprue. BIOPSIES SHOWED: A. Small bowel, biopsy: Small bowel mucosa within normal limits; preserved villous architecture and no increase in intraepithelial lymphocytes. B. Stomach, antrum, biopsy: Gastric antral mucosa with mild chronic inactive gastritis; negative for Helicobacter pylori, intestinal metaplasia and dysplasia. C. Stomach, body, biopsy: Gastric body mucosa with mild chronic inactive gastritis; negative for Helicobacter pylori, intestinal metaplasia and dysplasia. D. Esophagus, proximal, biopsy: Squamous mucosa within normal limits; negative for inflammation, fungal organisms, intestinal metaplasia and dysplasia. TODAY'S VISIT: Patient cc: abdominal pain with bloating, GERD, dysphagia and constipation. Just found out she has kidney stones in both kidneys EGD and bx results were reviewed with the patient Scheduled for an open MRI at [facility] during the last week of December TSH was elevated and waiting for an appt to see Endocrinology Notes worsening burning upper abdominal pain radiating to the back with nausea and vomiting. Feels weak and tired. Only able to drink soups. Worsening pain, bloating and distension when she tries to eat and drink. No BM since 12/15/22 - had a small BM. Attributes to not eating and getting morphine in the ED on 12/18/22. Denies fever, chills and notes sweating. Taking Pantoprazole twice a day which is not helping. PAST VISIT: Gloria presents in the office as a follow up patient for abdominal pains. CC: She is having issues - she states she has issues with her thyroid. She is having issues with taking that medication and was told to take it with the stomach medications. 2 months ago she stopped taking her Pantoprazole and now she is unable to drink or eat anything. She is having severe pains in her stomach and severe acid reflux. She is scared because her hair has been falling out as well. Continues to have abdominal pain and bloating. Has a lot of abdominal pain. She was advised to take no medication for 2-3 hours after she takes her Levothyroxine and to take Pantoprazole later - and takes it at 2 pm. Complains of nausea and vomiting Has diarrhea with 4-5 watery stools per day - sometimes stool is like powder. Denies recent constipation. Had recurrent vomiting yesterday - containing white foamy saliva Notes increased burping, bloating and left sided abdominal pain. 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 Still taking Omeprazole - Pantoprazole not available at the pharmacy yet - refill sent. Entire body hurts due to fibromyalgia. Started on a new medication for fibromyalgia [facility] Medical History (Updated 01/05/23 @ 09:27 by Barak Junior MD) Dysphagia Diarrhea Well woman exam Abnormal finding on EKG Hx of flexible sigmoidoscopy Internal derangement of right shoulder Lump of left breast Lump of right breast Lump of axillary tail of right breast Chronic constipation Rotator cuff impingement syndrome of left shoulder Right forearm pain Colitis Hypertensive urgency Rotator cuff impingement syndrome Lateral epicondylitis of both elbows Fall IBS (irritable bowel syndrome) Abdominal bloating Tendinopathy of left rotator cuff History of TIA (transient ischemic attack) Hypercholesterolemia Vitamin D deficiency Multinodular thyroid Pancreatic cyst Constipation Thyroid nodule Diarrhea Rectal bleeding Esophageal spasm GERD (gastroesophageal reflux disease) Hypertension Asthma Kidney stones History of migraine headaches Fibromyalgia Allergic rhinitis Sciatic nerve pain Ovarian cyst Hypothyroidism Surgical History (Updated 12/29/22 @ 11:30 by Pat Jeffery) History of arthroscopic surgery of shoulder Hx of eye surgery History of breast lump/mass excision Hx of hemorrhoidectomy Hx of tubal ligation History of esophagogastroduodenoscopy (EGD) History of colonoscopy (~11/16/19) H/O: hysterectomy History of thyroidectomy (~11/2018) History of kidney surgery Hx of bilateral breast reduction surgery Hx of appendectomy History of cholecystectomy (~2003) H/O lithotripsy Family History Father Family history of high blood pressure History of high cholesterol Mother History of diabetes mellitus Family history of high blood pressure Family history of asthma History of fibromyalgia Liver disease Social History Household Members: None Housing: House Are you a primary caretaker to a significant other at home: No Do you presently have visiting nurse or other home services: No Alcohol intake: never Patient Tobacco Use Status: Former Tobacco user Quit Date: 2013 Tobacco use type: Cigarette Years Smoked: 3 e-Cigarette/Vaping Use: Never Used Second Hand Smoke Exposure: No Substance Use Type: Marijuana service: No Current occupational status: disabled Current occupation: right handed Cognitive needs: No Hearing needs: No Vision needs: Yes Female Reproductive History Menstrual Age of Menarche: 14 Review of Systems Const All systems reviewed & are unremarkable except as noted in HPI and below Physical Exam Const General: healthy appearing and no acute distress Nutritional Appearance: obese Orientation/consciousness: patient oriented x3 Limitations: no limitations HEENT Head: Yes normal to inspection Ears: hearing grossly normal bilaterally Eyes Sclerae: sclerae normal Pupils: Equal, round and reactive pupils present Neck Neck: Yes normal visual inspection Chest Chest palpation & inspection: normal inspection of the chest Resp Effort & Inspection: normal respiratory effort Auscultation: clear to auscultation bilaterally Cardio Palpation: normal PMI Rate: regular rate Rhythm: regular rhythm Heart sounds: S1 normal heart sound present, S2 normal heart sound present and no murmurs GI Palpation (GI): Soft to palpation, Tenderness to palpation present (GI) (Mild LUQ tenderness without rebound) and No hepatosplenomegaly present Auscultation: normal bowel sounds Rectal Exam - Female: deferred Skin General skin exam: no rashes or lesions noted Neuro General: patient oriented x3, gait normal and moves all extremities Cranial nerves: Yes Equal, round and reactive pupils present Psych Appearance: grossly normal Mental Status: mental status grossly normal Assessment & Plan Assessment & Plan (1) Acute pancreatitis: Code(s): K85.90 - Acute pancreatitis without necrosis or infection, unspecified (2) Elevated lipase: Code(s): R74.8 - Abnormal levels of other serum enzymes (3) Abdominal pain: Code(s): R10.9 - Unspecified abdominal pain (4) GERD (gastroesophageal reflux disease): Code(s): K21.9 - Gastro-esophageal reflux disease without esophagitis (5) Irritable bowel syndrome: Code(s): K58.9 - Irritable bowel syndrome without diarrhea (6) Esophageal spasm: Code(s): K22.4 - Dyskinesia of esophagus Plan 52 YF with htn, fibromyalgia, asthma, migraine BROWNE with long history of abdominal pain associated with diarrhea and bloating, constipation alternating with diarrhea with symptoms suggestive of outlet delay. Abdominal pain is likely due to IBS with constipation and diarrhea. Patient notes partial improvement in symptoms with senna, she has not used a suppository or enema in the past.? She tried dicyclomine in the past and was not helpful for abdominal pain. Patient had a colonoscopy on 11/18/19? for evaluation of rectal bleeding which revealed diverticulosis and no polyps.? Random biopsies obtained from the colon were negative for inflammation. 08/2020 [place] [facility] [place] IMPRESSIONS: Borderline anal hypertension and borderline anal hypocontractility (overall anal sphincter strength lower than average for gender) Abnormal balloon expulsion with normal manometric pattern of rectoanal coordination normal rectal propulsive force and normal anal relaxation with push) This is considered an inconclusive finding that can also be seen in normal controls according to the Wu classification. Mild rectal hypersensitivity suggestive of chronic constipation She complains of constipation x 2-3 days followed by soft/watery stools lasting for half a day. ?Patient was advised to take Miralax every other day for constipation and take Rifaximin x 14 days for suspected SIBO. Takes Miralax intermittently Pt was advised to go on a clear liquid diet and take Mag Citrate to clean out her colon. Then start taking Linzess for constipation. 01/30/22 - pt was advised stool studies, start a probiotic and increase sucralfate to 3-4 times daily 03/16/22 Pt was switched from Omeprazole to Pantoprazole 40 mg twice daily and started on Amitriptyline 25 mg at bedtime. 04/28/22 Amitriptyline dose was increased to 50 mg at bedtime Pt's wt gain is likely related to elevated TSH levels - repeat TSH planned in [address] Humphrey 11/30/22 Pt complains of left sided abd pain, bloating and worsening GERD symptoms after she was advised to take the Pantoprazole later in the day and stop sucralfate due to suspected drug interaction with Levothyroxine. Pt was advised to increase pantoprazole to 40 mg twice daily and amitriptyline to 75 mg at bedtime She will be scheduled for an EGD (last EGD in 2018 showed a small hiatal hernia and gastritis - no HP on bx) - scheduled on 12/22/22. 12/21/22 Pt seen with worsening upper abdominal pain, nausea, vomiting and unable to tolerate PO food. Pt had an elevated lipase on 12/18/22 Pt advised to return to the ED for repeat labs, lipase and a CT scan with IV contrast. She will need to be admitted if lipase remains elevated for bowel rest and IVF Repeat lipase was normal. ABD CT SCAN SHOWED: PANCREAS: Edematous appearing pancreas with peripancreatic stranding. This appears more pronounced than the 08/08/2020 examination. No peripancreatic fluid collections. No dilatation of the main pancreatic duct. CT findings were reviewed with the patient. 12/22/22 EGD was performed in findings as noted above. Order placed for MRCP for FU of pancreatitis Of note pt is status post lap macy and had a normal triglyceride level a few months ago. Pt advised to schedule an appt with Endocrinology FU appt in 4 weeks to discuss MRI results Coding Level of Care Code Est Pt Level 3 (47674) Diagnoses Acute pancreatitis K85.90 Elevated lipase R74.8 Abdominal pain R10.9 GERD (gastroesophageal reflux disease) K21.9 Irritable bowel syndrome K58.9 Esophageal spasm K22.4 Time Spent (min) 15
[2023-01-12 07:41] VITALS: BP 146/94; PULSE 90; BMI 33.9
== END 2023-01-12 08:49 | disposition home or self-care (01) ==
PROVIDERS: PCP Internal Medicine; Visit Provider Internal Medicine Gastroenterology
DX: K85.90 Acute pancreatitis without necrosis or infection, unspecified (principal); R74.8 Abnormal levels of other serum enzymes; R10.9 Unspecified abdominal pain; K21.9 Gastro-esophageal reflux disease without esophagitis; K58.9 Irritable bowel syndrome, unspecified; K22.4 Dyskinesia of esophagus
CPT/HCPCS: 99213

== ENCOUNTER 2023-01-12 08:05 | Outpatient (REF) | payer OTHER, SELFPAY | END 2023-01-12 08:06 | disposition home or self-care (01) | LOC: HO.MDS 08:05 | PROVIDERS: Visit Provider Internal Medicine Pulmonary Disease | DX: J45.50 Severe persistent asthma, uncomplicated (principal) | CPT/HCPCS: 96372; 99212; J2357 ==

== ENCOUNTER 2023-01-26 14:01 | Outpatient (REF) | payer OTHER, SELFPAY | END 2023-01-26 14:02 | disposition home or self-care (01) | LOC: HO.MDS 14:01 | PROVIDERS: Visit Provider Internal Medicine Pulmonary Disease | DX: J45.50 Severe persistent asthma, uncomplicated (principal) | CPT/HCPCS: 96372; J2357 ==

== ENCOUNTER 2023-02-12 08:30 | Outpatient (REF) | payer OTHER, SELFPAY ==
--- NOTE | ~2023-02-12 | US_ITS ---
EXAMINATION: US RETROPERITONEAL LIMITED (RENAL ONLY) CLINICAL INFORMATION: Calculus of kidney. COMPARISON: CT abdomen and pelvis 12/21/2022. Ultrasound renal Doppler 08/08/2020. MRI abdomen with and without contrast 02/22/2018. Renal ultrasound 06/27/2017. TECHNIQUE: Real-time imaging of the kidneys. FINDINGS: RIGHT KIDNEY: 12.0 x 5.5 x 5.7 cm (SAG x AP x TRV). The kidney is normal in size, contour, and echogenicity. Renal cortical thickness is normal. No calculi or focal parenchymal lesions. Lower pole calculus seen at the time of the 12/21/2022 CT scan is not seen. No hydronephrosis. LEFT KIDNEY: 11.4 x 6.0 x 5.3 cm (SAG x AP x TRV). The kidney is normal in size, contour, and echogenicity. Renal cortical thickness is normal. No focal parenchymal lesions. There is an upper pole echogenic focus measuring 4 mm consistent with a stone. Two stones were seen on the prior CT scan. There is mild hydronephrosis present. Incidental note made of markedly echogenic liver consistent with hepatic steatosis. US/US renal BI IMPRESSION: 1. Left-sided nephrolithiasis with mild hydronephrosis. 2. Incidentally noted hepatic steatosis.
--- NOTE | 2023-02-12 09:13 | CA_ITS ---
Acquisition Time: 2023-02-12 09:41:26 Total Exercise Time: 00:05:00 Test Indications: CP Medications: SEE H Protocol: WINSTON Max HR: 150 BPM 88% of Pred: 170 BPM Max BP: 148/080 mmHG Max Work Load: 6.0 METS Exercise stress test exercise 5 min of Winston protocol (stage 2 2.2mph 11.5% greade) achieving 88% MPHR, with mild SOB, 7-8/10 baseline pressure. 10/10 at peak, without arrhythmias, with no signfiicant change in BPs, without EKG changes. Chest pain returned to baseline with rest.Test reviewed with Jesica Ashley. Referred By: Barak Junior Overread By: Ayah Man
== END 2023-02-12 08:31 | disposition home or self-care (01) ==
LOC: HO.US 08:30
PROVIDERS: PCP Internal Medicine; Visit Provider Internal Medicine
DX: R07.9 Chest pain, unspecified (principal); N20.0 Calculus of kidney
CPT/HCPCS: 76775; 93017; 99212

== ENCOUNTER → 2023-02-12 09:13 | Outpatient (BNV) | payer OTHER, SELFPAY | PROVIDERS: PCP Internal Medicine; Visit Provider Nurse Practitioner | DX: R07.9 Chest pain, unspecified (principal) | CPT/HCPCS: 93016; 93018 ==

== ENCOUNTER 2023-02-12 10:37 | Outpatient (AMB) | payer OTHER, SELFPAY ==
[2023-02-12 10:41] VITALS: BP 130/90; PULSE 93; BMI 38.7
--- NOTE | 2023-02-12 10:41 | MHC.OFFVIS ---
Intake Vital Signs 02/12/23 10:41 Height 5 ft 6 in Weight 240 lb 1.334 oz BMI 38.7 BP 130/90 H Blood Pressure Location Lt brachial Position Sitting Pulse 93 Pulse Source Pulse Oximeter Intake Visit Reasons: thyroid Intake Note: Patient present today for Thyroid follow up visit. Wood Preparation Supervisor Required: No Accompanied by: Self / Same As Patient Allergies pineapple [PINEAPPLE] Allergy (Severe, Verified 02/12/23 10:50) ANAPHYLAXIS adhesive tape Allergy (Intermediate, Verified 02/12/23 10:50) Blister Iodinated Contrast Media [IV Dye, Iodine Containing] Allergy (Intermediate, Verified 02/12/23 10:50) SOB,RASH levofloxacin [From Levaquin] Allergy (Intermediate, Verified 02/12/23 10:50) swelling/rash oxycodone [From Percocet] Allergy (Intermediate, Verified 02/12/23 10:50) rash/SOB aspirin [ASA] Adverse Reaction (Mild, Verified 02/12/23 10:50) UPSET STOMACH Medication List - Last Reconciled 02/12/23 by Rainer Vargas MD aluminum hydrox-magnesium carb 254-237.5 mg/5 mL (Gaviscon Extra Strength) 10 mL PO QID PRN amitriptyline 75 mg (3 x 25 mg) PO BEDTIME 60 days amlodipine 10 mg PO DAILY atorvastatin (Lipitor) 10 mg PO DAILY budesonide-formoterol 160-4.5 mcg/actuation (Symbicort) 2 puffs inhalation BID cholecalciferol (vitamin D3) 50 mcg PO DAILY 30 days clobetasol 0.05% 1 appl topical BID 4 weeks clotrimazole-betamethasone 1-0.05 % 1 appl topical BID 5 days diclofenac sodium 75 mg PO BID PRN docusate sodium 100 mg PO BID famotidine 20 mg PO BEDTIME PRN 30 days fluticasone furoate-vilanterol 200-25 mcg/dose (Breo Ellipta) 1 inh inhalation DAILY 30 days hyoscyamine sulfate (Levsin) 0.125 mg PO QID PRN ipratropium-albuterol 0.5 mg-3 mg(2.5 mg base)/3 mL 3 mL inhalation Q4-6H PRN levothyroxine 200 mcg PO DAILY lisinopril 10 mg PO DAILY magnesium citrate 150 mL PO ONCE 1 day metoprolol tartrate Take 2 tablets in the morning and 1 tablet at night PO; 90 days omalizumab (Xolair) 300 mg (2 mL) subcut Q2W omeprazole 40 mg (2 x 20 mg) PO DAILY 30 days polyethylene glycol 3350 (Gavilax) 17 grams PO BID 60 days umeclidinium 62.5 mcg/actuation (Incruse Ellipta) 1 inh inhalation DAILY 30 days Ventolin HFA 90 mcg/actuation (albuterol sulfate) 2 puffs inhalation Q4-6H PRN 30 days NS HPI HPI Comments History of Present Illness Details 52 YO Female with PMHx HTN, breast cancer in remission who is seen in F/U for postsurgical hypothyroidism after she underwent a total thyroidectomy 12/04/2018 for a multinodular thyroid. Patient last saw Dr. Humphrey on 08/21/2022 Surgery was uncomplicated, but the L inferior parathyroid gland did need to be re-implanted. 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 Postoperative course has been unremarkable, but she did recently develop severe hypothyroidism with TSH >40. She has admitted to poor compliance with her levothyroxine. Now she reports good compliance with levothyroxine 200 mcg PO daily for 1 wk . Most recent labs were at goal. Due now for repeat. She does complain of hair loss, fatigue, weight gain and confusion. She also has Vitamin D deficiency. S he has been compliant with her Vitamin D, and her levels are now at goal. Celiac panel was negative. Labs: Did not do recent labs. [facility] Medical History (Updated 01/05/23 @ 09:27 by Barak Juniro MD) Dysphagia Diarrhea Well woman exam Abnormal finding on EKG Hx of flexible sigmoidoscopy Internal derangement of right shoulder Lump of left breast Lump of right breast Lump of axillary tail of right breast Chronic constipation Rotator cuff impingement syndrome of left shoulder Right forearm pain Colitis Hypertensive urgency Rotator cuff impingement syndrome Lateral epicondylitis of both elbows Fall IBS (irritable bowel syndrome) Abdominal bloating Tendinopathy of left rotator cuff History of TIA (transient ischemic attack) Hypercholesterolemia Vitamin D deficiency Multinodular thyroid Pancreatic cyst Constipation Thyroid nodule Diarrhea Rectal bleeding Esophageal spasm GERD (gastroesophageal reflux disease) Hypertension Asthma Kidney stones History of migraine headaches Fibromyalgia Allergic rhinitis Sciatic nerve pain Ovarian cyst Hypothyroidism Surgical History History of arthroscopic surgery of shoulder Hx of eye surgery History of breast lump/mass excision Hx of hemorrhoidectomy Hx of tubal ligation History of esophagogastroduodenoscopy (EGD) History of colonoscopy (~11/16/19) H/O: hysterectomy History of thyroidectomy (~11/2018) History of kidney surgery Hx of bilateral breast reduction surgery Hx of appendectomy History of cholecystectomy (~2003) H/O lithotripsy Family History Father Family history of high blood pressure History of high cholesterol Mother History of diabetes mellitus Family history of high blood pressure Family history of asthma History of fibromyalgia Liver disease Social History Household Members: None Housing: House Are you a primary field care advocate to a significant other at home: No Do you presently have visiting nurse or other home services: No Alcohol intake: never Patient Tobacco Use Status: Former Tobacco user Quit Date: 2013 Tobacco use type: Cigarette Years Smoked: 3 e-Cigarette/Vaping Use: Never Used Second Hand Smoke Exposure: No Substance Use Type: Marijuana service: No Current occupational status: disabled Current occupation: right handed Cognitive needs: No Hearing needs: No Vision needs: Yes Female Reproductive History Menstrual Age of Menarche: 14 Physical Exam Vital Signs: Last Vital Signs Pulse 93 02/12/23 10:41 BP 130/90 H 02/12/23 10:41 BMI result Body Mass Index 38.7 Const Other: Healed scar status post thyroidectomy Assessment & Plan Assessment & Plan (1) Post-surgical hypothyroidism: Code(s): E89.0 - Postprocedural hypothyroidism Plan: This is a 52-year-old female with a history of post-surgical hypothyroidism. She is currently replaced with 200 mcg levothyroxine. Her most recent TSH level was elevatedpriorto dose increase to 200 ug Plan is to change the generic levothyroxine to branded Tirosint 200 ug which may be better absorbed. Will recheck TSH and free T4 in 6 weeks time and adjust Tirosint accordingly. Orders: Orders Thyroid Stimulating Hormone 6 Weeks E89.0 - Postprocedural hypothyroidism Free T4 (Free Thyroxine) 6 Weeks E89.0 - Postprocedural hypothyroidism Medications: New Tirosint (levothyroxine) 200 mcg PO DAILY 30 caps 5RF NS Discontinued levothyroxine Discontinued Reason: Doctor's Order 200 mcg PO DAILY 30 tabs 5RF Coding Level of Care Code Est Pt Level 3 (06658) Diagnoses Post-surgical hypothyroidism E89.0
== END 2023-02-12 11:21 | disposition home or self-care (01) ==
PROVIDERS: PCP Internal Medicine; Visit Provider Internal Medicine Endocrinology, Diabetes & Metabolism
DX: E89.0 Postprocedural hypothyroidism (principal)
CPT/HCPCS: 99213

== ENCOUNTER 2023-02-13 09:27 | Outpatient (REF) | payer OTHER, SELFPAY | END 2023-02-13 09:28 | disposition home or self-care (01) | LOC: HO.MDS 09:27 | PROVIDERS: Visit Provider Internal Medicine Pulmonary Disease | DX: J45.50 Severe persistent asthma, uncomplicated (principal) | CPT/HCPCS: 96372; J2357 ==

== ENCOUNTER 2023-03-07 12:15 | Outpatient (AMB) | payer OTHER, SELFPAY ==
--- NOTE | 2023-03-07 13:17 | A.OFFVIS_ITS ---
Intake Intake Visit Reasons: Kidney stones Intake Note: NEW Patient presents today to established treatment for Kidney Stones: Meds- None Allergies to Antibiotic- Levofloxacin, (Iodine) Blood Thinner- None Foot Gatherer Required: No Accompanied by: Self / Same As Patient Allergies pineapple [PINEAPPLE] Allergy (Severe, Verified 03/07/23 13:23) ANAPHYLAXIS adhesive tape Allergy (Intermediate, Verified 03/07/23 13:23) Blister Iodinated Contrast Media [IV Dye, Iodine Containing] Allergy (Intermediate, Verified 03/07/23 13:23) SOB,RASH levofloxacin [From Levaquin] Allergy (Intermediate, Verified 03/07/23 13:23) swelling/rash oxycodone [From Percocet] Allergy (Intermediate, Verified 03/07/23 13:23) rash/SOB aspirin [ASA] Adverse Reaction (Mild, Verified 03/07/23 13:23) UPSET STOMACH HPI HPI Comments History of Present Illness Details Gloria is a 52-year-old female who is here for evaluation for kidney stones. The patient states that she has had history of kidney stones and has had prior kidney stone treatments including shockwave lithotripsy. Past Medical history includes asthma, she is followed by Pulmonary, history of thyroid cancer status post thyroid removal, bowel condition. The patient complains of left kidney pain, denies blood in the urine. I have reviewed chart, imagin12/21/22-CTAP--left kidney stones and r ight punctate kidney stone 02/12/23- Renal US --Left kidney stones 4-5 mm I have discussed diet modification to increase fluids, low sodium and low oxalate diet, diet sheet provided. Discussed Left ESWL--risks to include but not limited to, blood in the urine, bruising to the skin, kidney hematoma, possible need for another procedure if a stone fragment obstructs the ureter while passing, possible need to repeat procedure if stone is not completely fragmented. UA- negative Plan:Left ESWL. Needs pulmonary clearance prior [facility] Medical History Dysphagia Diarrhea Well woman exam Abnormal finding on EKG Hx of flexible sigmoidoscopy Internal derangement of right shoulder Lump of left breast Lump of right breast Lump of axillary tail of right breast Chronic constipation Rotator cuff impingement syndrome of left shoulder Right forearm pain Colitis Hypertensive urgency Rotator cuff impingement syndrome Lateral epicondylitis of both elbows Fall IBS (irritable bowel syndrome) Abdominal bloating Tendinopathy of left rotator cuff History of TIA (transient ischemic attack) Hypercholesterolemia Vitamin D deficiency Multinodular thyroid Pancreatic cyst Constipation Thyroid nodule Diarrhea Rectal bleeding Esophageal spasm GERD (gastroesophageal reflux disease) Hypertension Asthma Kidney stones History of migraine headaches Fibromyalgia Allergic rhinitis Sciatic nerve pain Ovarian cyst Hypothyroidism Surgical History History of arthroscopic surgery of shoulder Hx of eye surgery History of breast lump/mass excision Hx of hemorrhoidectomy Hx of tubal ligation History of esophagogastroduodenoscopy (EGD) History of colonoscopy (~11/16/19) H/O: hysterectomy History of thyroidectomy (~11/2018) History of kidney surgery Hx of bilateral breast reduction surgery Hx of appendectomy History of cholecystectomy (~2003) H/O lithotripsy Family History Father Family history of high blood pressure History of high cholesterol Mother History of diabetes mellitus Family history of high blood pressure Family history of asthma History of fibromyalgia Liver disease Social History Household Members: None Housing: House Are you a primary childbirth and infant care teacher to a significant other at home: No Do you presently have visiting nurse or other home services: No Alcohol intake: never Patient Tobacco Use Status: Former Tobacco user Quit Date: 2013 Tobacco use type: Cigarette Years Smoked: 3 e-Cigarette/Vaping Use: Never Used Second Hand Smoke Exposure: No Substance Use Type: Marijuana service: No Current occupational status: disabled Current occupation: right handed Cognitive needs: No Hearing needs: No Vision needs: Yes Female Reproductive History Menstrual Age of Menarche: 14 Review of Systems Const All systems reviewed & are unremarkable except as noted in HPI and below Reports no additional complaints Eyes Reports no additional complaints ENT Reports no additional complaints Card Denies dyspnea Resp Denies cough and Denies dyspnea GI Reports no additional complaints Reports no additional complaints Musc Reports no additional complaints Skin/Breast Denies rash and Denies unusual bruising Neuro Reports no additional complaints Psych Reports no additional complaints Endo Reports no additional complaints Chuy/Lymph Reports no additional complaints Aller/Immun Reports no additional complaints Physical Exam Const General: cooperative, healthy appearing and no acute distress Orientation/consciousness: patient oriented x3 HEENT Head: Yes normal to inspection, Yes normocephalic and Yes atraumatic Eyes Conjunctivae: conjunctivae normal Neck Neck: Yes normal visual inspection and Yes trachea midline Chest Chest palpation & inspection: normal inspection of the chest Resp Effort & Inspection: normal respiratory effort Cardio Rate: regular rate GI Inspection: Yes normal to inspection Palpation (GI): Soft to palpation Skin General skin exam: no rashes or lesions noted Neuro General: patient oriented x3 Extrem General: No edema Psych Appearance: grossly normal Results AMB Urinalysis, Automated UA Leukoctes 0 Frederick/uL Last Edit by YANIRA Hernandez on 03/07/23 13:39 UA Nitrite Negative Last Edit by YANIRA Hernandez on 03/07/23 13:39 UA Urobilinogen 0.2 mg/dL Last Edit by YANIRA Hernandez on 03/07/23 13:3 9 UA Protein 0 mg/dL Last Edit by YANIRA Hernandez on 03/07/23 13:39 UA pH 6.5 Last Edit by YANIRA Hernandez on 03/07/23 13:39 UA Blood 0 Jose Maria/uL Last Edit by [facility] [employer] on 03/07/23 13:39 UA Specific [place] 1.005 Last Edit by YANIRA Hernandez on 03/07/23 13: 39 UA Ketone Negative Last Edit by YANIRA Hernandez on 03/07/23 13:39 UA Bilirubin 0 mg/dL Last Edit by YANIRA Hernandez on 03/07/23 13:39 UA Glucose 0 mg/dL Last Edit by YANIRA Hernandez on 03/07/23 13:39 Results Reviewed Results Reviewed: Laboratory Last Values Urine pH (Auto) 6.5 03/07/23 13:38 Specific [place] (Auto) 1.005 03/07/23 13:38 Urine Protein (Auto) 0 mg/dL 03/07/23 13:38 Glucose (UA)(Auto) 0 mg/dL 03/07/23 13:38 Urine Ketones (Auto) Negative 03/07/23 13:38 Urine Blood (Auto) 0 Jose Maria/uL 03/07/23 13:38 Urine Nitrite (Auto) Negative 03/07/23 13:38 Urine Bilirubin (Auto) 0 mg/dL 03/07/23 13:38 Urine Urobilinogen (Auto) 0.2 mg/dL 03/07/23 13:38 Leukocyte Esterase (Auto) 0 Frederick/uL 03/07/23 13:38 Date of Service: 02/12/23 EXAMINATION: US RETROPERITONEAL LIMITED (RENAL ONLY) CLINICAL INFORMATION: Calculus of kidney. COMPARISON: CT abdomen and pelvis 12/21/2022. Ultrasound renal Doppler 08/08/2020. MRI abdomen with and without contrast 02/22/2018. Renal ultrasound 06/27/2017. TECHNIQUE: Real-time imaging of the kidneys. FINDINGS: RIGHT KIDNEY: 12.0 x 5.5 x 5.7 cm (SAG x AP x TRV). The kidney is normal in size, contour, and echogenicity. Renal cortical thickness is normal. No calculi or focal parenchymal lesions. Lower pole calculus seen at the time of the 12/21/2022 CT scan is not seen. No hydronephrosis. LEFT KIDNEY: 11.4 x 6.0 x 5.3 cm (SAG x AP x TRV). The kidney is normal in size, contour, and echogenicity. Renal cortical thickness is normal. No focal parenchymal lesions. There is an upper pole echogenic focus measuring 4 mm consistent with a stone. Two stones were seen on the prior CT scan. There is mild hydronephrosis present. Incidental note made of markedly echogenic liver consistent with hepatic steatosis. IMPRESSION: 1. Left-sided nephrolithiasis with mild hydronephrosis. 2. Incidentally noted hepatic steatosis. Date of Service: 12/21/22 EXAMINATION: CT ABDOMEN AND PELVIS WITHOUT CONTRAST CLINICAL INFORMATION: Epigastric pain. COMPARISON: 08/08/2020 TECHNIQUE: Multidetector volumetric imaging was performed from the superior aspect of the liver through the pubic symphysis. Sagittal and coronal reformatted images were obtained on the technologist's workstation. This CT examination was performed using dose optimization techniques as appropriate, variously including the following: *Automated exposure control *Adjustment of mA and/or kV according to patient size (this includes techniques or standardized protocols for targeted exams where dose is matched to indication/reason for exam; i.e. extremities or head) *Use of iterative reconstruction technique DLP: 987 mGy-cm FINDINGS: LUNG BASES: Small pericardial effusion. LIVER, GALLBLADDER, AND BILIARY TREE: The liver is decreased in attenuation. No focal hepatic lesion or biliary ductal dilatation is present. The gallbladder is surgically absent. PANCREAS: Edematous appearing pancreas with peripancreatic stranding. This appears more pronounced than the 08/08/2020 examination. No peripancreatic fluid collections. No dilatation of the main pancreatic duct. SPLEEN: Unremarkable. ADRENAL GLANDS: Unremarkable. KIDNEYS AND URETERS: The kidneys are symmetric in size. Bilateral nonobstructing renal calculi. No hydronephrosis, hydroureter, or calculi seen. No perinephric stranding. BLADDER: Decompressed. GASTROINTESTINAL TRACT: Small hiatal hernia. Small and large bowel loops are of normal caliber. No small bowel obstruction. Appendix may be surgically absent. ABDOMINAL WALL: No significant hernia is appreciated. LYMPH NODES: No pathologic lymphadenopathy. VASCULAR: Normal caliber abdominal aorta. PELVIC VISCERA: Uterus is surgically absent. OSSEOUS STRUCTURES: No destructive bone lesions. IMPRESSION: Findings may represent acute pancreatitis. Advise correlation with pancreatic enzymes. Bilateral nephrolithiasis. No hydronephrosis. Assessment & Plan Assessment & Plan (1) Bilateral renal stones: Code(s): N20.0 - Calculus of kidney Plan Left ESWL. Needs pulmonary clearance prior Orders: Orders AMB Urinalysis Automated Today Z13.9 - Encounter for screening, unspecified Patient Instructions: The patient had an opportunity to ask questions regarding treatment plan. All questions were answered. Imaging, Laboratory studies and physical exam results were discussed and reviewed in detail. No major barriers to understanding were identified. The patient expressed understanding and agreement with the above treatment plan. The patient is aware they should contact our office by phone for worsening of their current condition or the appearance of new symptoms. Compliance is encouraged with any medications and followup testing that is ordered. It is a privilege to be allowed the opportunity to participate in the urologic care of your patient. If you have any questions or concerns regarding treatment for the above conditions please do not hesitate to contact me. The office telephone contact is [phone]. This note is constructed in part using voice recognition software. While every effort has been made to ensure accuracy latex ribbon machine operator errors may have been included. Yours sincerely, Blanca Lujan MD Coding Level of Care Code New Pt Level 4 (74092) Diagnoses Bilateral renal stones N20.0
== END 2023-03-07 13:56 | disposition home or self-care (01) ==
PROVIDERS: PCP Internal Medicine; Visit Provider Urology
DX: Z13.9 Encounter for screening, unspecified (principal); N20.0 Calculus of kidney
CPT/HCPCS: 99204

== ENCOUNTER → 2023-03-07 12:15 | Outpatient (BNVA) | payer OTHER, SELFPAY | PROVIDERS: PCP Internal Medicine; Visit Provider Urology | DX: N20.0 Calculus of kidney (principal) | CPT/HCPCS: 81003; 99202 ==

== ENCOUNTER 2023-03-15 08:45 | Outpatient (AMB) | payer OTHER, SELFPAY ==
[2023-03-15 08:47] VITALS: BP 132/96; BMI 36.8
--- NOTE | 2023-03-15 08:47 | MHC.OFFVIS ---
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 Required: No Information Interpreted: non-clinical & clinical Portfolio Analyst: Portfolio Analyst Present (Keturah DOYLE) Accompanied by: Self / Same As Patient Allergies pineapple [PINEAPPLE] Allergy (Severe, Verified 03/15/23 08:57) ANAPHYLAXIS adhesive tape Allergy (Intermediate, Verified 03/15/23 08:57) Blister Iodinated Contrast Media [IV Dye, Iodine Containing] Allergy (Intermediate, Verified 03/15/23 08:57) SOB,RASH levofloxacin [From Levaquin] Allergy (Intermediate, Verified 03/15/23 08:57) swelling/rash oxycodone [From Percocet] Allergy (Intermediate, Verified 03/15/23 08:57) rash/SOB aspirin [ASA] Adverse Reaction (Mild, Verified 03/15/23 08:57) UPSET STOMACH Post menopausal: Yes HPI HPI Comments History of Present Illness Details Presenting for annual exam. Complaining of bilateral pelvic pain last few months with no associated urinary or GI symptoms, in addition, the patient is complaining of left breast tender lump Last Pap/HPV was negative in 09/06 Last Mammogram was BI-RADS 1 in 12/17 Last Colonoscopy was in 03/20 [facility] Medical History Dysphagia Diarrhea Well woman exam Abnormal finding on EKG Hx of flexible sigmoidoscopy Internal derangement of right shoulder Lump of left breast Lump of right breast Lump of axillary tail of right breast Chronic constipation Rotator cuff impingement syndrome of left shoulder Right forearm pain Colitis Hypertensive urgency Rotator cuff impingement syndrome Lateral epicondylitis of both elbows Fall IBS (irritable bowel syndrome) Abdominal bloating Tendinopathy of left rotator cuff History of TIA (transient ischemic attack) Hypercholesterolemia Vitamin D deficiency Multinodular thyroid Pancreatic cyst Constipation Thyroid nodule Diarrhea Rectal bleeding Esophageal spasm GERD (gastroesophageal reflux disease) Hypertension Asthma Kidney stones History of migraine headaches Fibromyalgia Allergic rhinitis Sciatic nerve pain Ovarian cyst Hypothyroidism Surgical History History of arthroscopic surgery of shoulder Hx of eye surgery History of breast lump/mass excision Hx of hemorrhoidectomy Hx of tubal ligation History of esophagogastroduodenoscopy (EGD) History of colonoscopy (~11/16/19) H/O: hysterectomy History of thyroidectomy (~11/2018) History of kidney surgery Hx of bilateral breast reduction surgery Hx of appendectomy History of cholecystectomy (~2003) H/O lithotripsy Family History Father Family history of high blood pressure History of high cholesterol Mother History of diabetes mellitus Family history of high blood pressure Family history of asthma History of fibromyalgia Liver disease Social History (Updated 03/15/23 @ 08:59 by Keturah Marcos CMA) Household Members: Spouse Household Members Other:: daughter Housing: Apartment Are you a primary direct care provider to a significant other at home: No Do you presently have visiting nurse or other home services: No Alcohol intake: current Alcohol intake frequency: holidays/special occasions only Patient Tobacco Use Status: Former Tobacco user Quit Date: 2013 Tobacco use type: Cigarette Years Smoked: 15 e-Cigarette/Vaping Use: Never Used Second Hand Smoke Exposure: No Substance Use Type: Marijuana service: No Current occupational status: disabled Current occupation: right handed Sexual orientation: Straight/Heterosexual Gender identity: Female Cognitive needs: No Hearing needs: No Vision needs: Yes Female Reproductive History Menstrual Age of Menarche: 14 Total pregnancies: 8 Full term: 4 Number of Living Children: 4 Ab spontaneous: 4 Date of Mammogram: 12/20/21 Review of Systems Const All systems reviewed & are unremarkable except as noted in HPI and below Card Reports as per HPI and Reports no additional complaints Resp Reports as per HPI and Reports no additional complaints GI Reports as per HPI and Reports no additional complaints Reports as per HPI Physical Exam Vital Signs: Last Vital Signs BP 132/96 H 03/15/23 08:47 BMI result Body Mass Index 36.8 Const General: cooperative, healthy appearing and comfortable Chest Chest palpation & inspection: normal inspection of the chest Breast/axilla palpation: normal palpation of the breasts (Right breast within normal, left breast lump1 o'clock 8 cm from the nipple ) General: Yes bladder normal to palpation External Female Exam: No lesion Speculum Exam - Vagina: normal appearance of the vagina, normal vaginal discharge and not erythematous Speculum Exam - Cervix: Cervix absent Bimanual exam- vagina & uterus: bladder normal to palpation and uterus absent Bimanual Exam- Adnexa, other: Other (No masses detected) Assessment & Plan Assessment & Plan (1) Well woman exam: Code(s): Z01.419 - Encounter for gynecological examination (general) (routine) without abnormal findings Plan: Co testing not indicated, the patient is status post total abdominal hysterectomy for endometrial hyperplasia no 8. Counseled the patient about the recommended dietary allowance of 1200 mg of Calcium & 600 IU of vitamin D. Mammogram ordered. The patient was instructed to perform monthly self-breast exams and schedule annual exam in a year. All questions answered and the patient verbalized understanding. (2) Breast lump on left side at 1 o'clock position: Comment: 8 cm from the nipple Code(s): N63.21 - Unspecified lump in the left breast, upper outer quadrant Plan: Discussed with the patient the finding on Breast exam (breast lump) .The differential diagnosis includes but not limited to lump/cyst/pre cancer/cancer or dense breast tissue. The work up includes breast US and diagnostic mammogram and referred the patient for surgical breast consult. (3) Pelvic pain: Code(s): R10.2 - Pelvic and perineal pain Plan: Urine dip done in the office was negative. pelvic ultrasound ordered. Discussed with the patient the differential diagnosis of pelvic pain including but not limited to adnexal, pathology, GI the (Irritable bowel syndrome, diverticulitis, others), musculoskeletal, myofascial pain abdominal wall , adhesions, endometriosis, psychological and others causes. Will check results and treat accordingly. All questions answered, the patient verbalized understanding. Instructed the patient to schedule follow-up appointment in 2 weeks Orders: Orders MM tomosynthesis diagnostic BI Today N63.21 - Unspecified lump in the left breast, upper outer quadrant US breast LT complete Today N63.21 - Unspecified lump in the left breast, upper outer quadrant US pelvic and transvaginal Today R10.2 - Pelvic and perineal pain Referrals General Surgery Referral N63.21 - Unspecified lump in the left breast, upper outer quadrant Coding Level of Care Code Est Pt Prev Care 40-64y(85759) Diagnoses Well woman exam Z01.419 Breast lump on left side at 1 o'clock position N63.21 Pelvic pain R10.2
== END 2023-03-15 09:20 | disposition home or self-care (01) ==
LOC: HO.HWS 08:45
PROVIDERS: PCP Internal Medicine; Visit Provider Obstetrics & Gynecology
DX: Z01.419 Encounter for gynecological examination (general) (routine) without abnormal findings (principal); N63.21 Unspecified lump in the left breast, upper outer quadrant; R10.2 Pelvic and perineal pain
CPT/HCPCS: 99396

== ENCOUNTER → 2023-03-15 08:45 | Outpatient (BNVA) | payer OTHER, SELFPAY | PROVIDERS: PCP Internal Medicine; Visit Provider Obstetrics & Gynecology | DX: Z01.419 Encounter for gynecological examination (general) (routine) without abnormal findings (principal); N63.21 Unspecified lump in the left breast, upper outer quadrant; R10.2 Pelvic and perineal pain | CPT/HCPCS: 99396 ==

== ENCOUNTER 2023-03-19 13:17 | Outpatient (REF) | payer OTHER, SELFPAY ==
--- NOTE | ~2023-03-19 | MM_ITS ---
EXAMINATION: MM DIAGNOSTIC DIGITAL BREAST TOMOSYNTHESIS, BILATERAL US BREAST LIMITED, LEFT MAMMOGRAPHY: CLINICAL INFORMATION: 52-year-old female complaining of palpable focus of abnormality in the left breast at the 1:00 axis. Patient has history of bilateral reduction mammoplasty. No history of breast CA. COMPARISON: Mammography: 12/20/2021, 12/13/2020, 05/03/2020, 10/15/2018, 10/02/2017, 09/05/2016 TECHNIQUE: Digital breast tomosynthesis is performed in both the craniocaudal and mediolateral oblique views along with computer-aided detection (CAD). Synthesized 2D images are generated from the tomosynthesis. In addition to standard views, 3-D spot compression views CC and MLO of the palpable region in the left breast 1:00 axis were also performed. FINDINGS: There are scattered areas of fibroglandular density (ACR BI-RADS breast composition Category b). There are bilateral small circumscribed nodules in both breasts, presumably cysts or other benign entities. These are waxing and waning over time. Subjacent to the BB marker on the CC spot compression view is a rounded isodense circumscribed mass measuring 0.7 cm and possibly related to the region of palpable concern. This can also be seen on the MLO spot compression view. This will be investigated with ultrasound. Otherwise, no suspicious masses, suspicious calcifications, or areas of architectural distortion are identified in either breast. Stable somewhat tubular pattern of the underlying parenchyma. ULTRASOUND: CLINICAL INFORMATION: As above. COMPARISON: 12/13/2020 left breast ultrasound, with palpable abnormality in similar location. TECHNIQUE: Targeted sonographic evaluation was performed using a high frequency linear transducer. Left breast was scanned throughout the upper outer quadrant. Selected archived documentation. FINDINGS: LEFT BREAST: There is a mixture of fatty and fibroglandular tissue. No suspicious mass is seen. There is no pathologic acoustic shadowing. There is a simple cyst at the 2:00 axis, 12 cm from the nipple, measuring 6 x 6 x 3 cm, essentially unchanged from 12/13/2020. This appears to represent the palpable focus of concern. Finding is benign. No suspicious findings are identified. MM/MM tomosynthesis diagnostic BI IMPRESSION: There are no findings suspicious for malignancy in either breast. There are no changes from the prior studies. Palpable focus in the 1:00 axis of the left breast appears to relate to a 6 mm, unchanged oval simple cyst in the 2:00 axis, 12 cm from the nipple. This is benign. No further follow-up recommended. Recommend the patient resume routine annual screening. OVERALL ASSESSMENT: Mammography: BI-RADS 2 - Benign Findings Ultrasound: BI-RADS 2 - Benign Findings RECOMMENDATION: 1 year F/U This patient's information was entered into a reminder system with a target due date for their next mammogram.
== END 2023-03-19 13:18 | disposition home or self-care (01) ==
LOC: HO.MAMMO 13:17
PROVIDERS: PCP Internal Medicine; Visit Provider Obstetrics & Gynecology
DX: N63.21 Unspecified lump in the left breast, upper outer quadrant (principal)
CPT/HCPCS: 76642; 77062; 77066

== ENCOUNTER → 2023-03-19 13:30 | Outpatient (BNV) | payer OTHER, SELFPAY | PROVIDERS: PCP Internal Medicine; Visit Provider Radiology Diagnostic Radiology | DX: N63.21 Unspecified lump in the left breast, upper outer quadrant (principal) | CPT/HCPCS: 76642; 77062; 77066 ==

== ENCOUNTER 2023-03-22 08:28 | Outpatient (AMB) | payer OTHER, SELFPAY ==
--- NOTE | 2023-03-22 08:35 | A.OFFVIS_ITS ---
Intake Vital Signs 03/22/23 08:38 Height 5 ft 6 in Weight 224 lb 13.944 oz BMI 36.3 BP 132/83 Blood Pressure Location Lt brachial Position Sitting Pulse 80 Intake Visit Reasons: S/p egd Intake Note: Gloria presents in the office as a follow up egd. CC: She states that she is still having bloating, stomach pains, issues with the pancreas and colon. She states she now has a hernia and ulcers. She is unable to eat or drink because it feels like she feels like acid. She is having nausea as we speak and she is also dealing with her thyroid issues as well. Certified Family Mediator Required: No Allergies pineapple [PINEAPPLE] Allergy (Severe, Verified 05/31/23 08:12) ANAPHYLAXIS adhesive tape Allergy (Intermediate, Verified 05/31/23 08:12) Blister Iodinated Contrast Media [IV Dye, Iodine Containing] Allergy (Intermediate, Verified 05/31/23 08:12) SOB,RASH levofloxacin [From Levaquin] Allergy (Intermediate, Verified 05/31/23 08:12) swelling/rash oxycodone [From Percocet] Allergy (Intermediate, Verified 05/31/23 08:12) rash/SOB aspirin [ASA] Adverse Reaction (Mild, Verified 05/31/23 08:12) UPSET STOMACH Medication List - Last Reconciled 03/22/23 by Sky Horton MD aluminum hydrox-magnesium carb 254-237.5 mg/5 mL (Gaviscon Extra Strength) 10 mL PO QID PRN amitriptyline 75 mg (3 x 25 mg) PO BEDTIME 60 days amlodipine 10 mg PO DAILY atorvastatin (Lipitor) 10 mg PO DAILY budesonide-formoterol 160-4.5 mcg/actuation (Symbicort) 2 puffs inhalation BID cholecalciferol (vitamin D3) 50 mcg PO DAILY 30 days clobetasol 0.05% 1 appl topical BID 4 weeks clotrimazole-betamethasone 1-0.05 % 1 appl topical BID 5 days diclofenac sodium 75 mg PO BID PRN docusate sodium 100 mg PO BID famotidine 20 mg PO BEDTIME PRN 30 days fluticasone furoate-vilanterol 200-25 mcg/dose (Breo Ellipta) 1 inh inhalation DAILY 30 days hyoscyamine sulfate (Levsin) 0.125 mg PO QID PRN ipratropium-albuterol 0.5 mg-3 mg(2.5 mg base)/3 mL 3 mL inhalation Q4-6H PRN levothyroxine 200 mcg PO DAILY lisinopril 10 mg PO DAILY metoprolol tartrate Take 2 tablets in the morning and 1 tablet at night PO; 90 days omalizumab (Xolair) 300 mg (2 mL) subcut Q2W omeprazole 40 mg (2 x 20 mg) PO DAILY 30 days polyethylene glycol 3350 (Gavilax) 17 grams PO BID 60 days Tirosint (levothyroxine) 200 mcg PO DAILY NS umeclidinium 62.5 mcg/actuation (Incruse Ellipta) 1 inh inhalation DAILY 30 days Ventolin HFA 90 mcg/actuation (albuterol sulfate) 2 puffs inhalation Q4-6H PRN 30 days NS HPI S/p egd HPI Details GI Clinic visit for this 52-year-old female for evaluation of diarrhea and abdominal bloating Pt had severe watery diarrhea which lasted for several weeks after her thyroid surgery. Pt was seen at [facility] ED on 12/18/22 with worsening abd pain and labs showed an elevated lipase of 118 [facility]: 11/15 REVIEWED. ? Stool studies were negative for C Diff, calprotectin was normal and stool fat was elevated ? Stool electrolytes could not be performed since stool was formed ? Serum gastrin was elevated and normal on repeat testing after holding Omeprazole. ?IMAGING STUDIES: 03/16/22 BARIUM SWALLOW SHOWED: -Spontaneous gastroesophageal reflux to the level mid thoracicesophagus. -Bridging anterior osteophytes mid to lo wer cervical spine. Swellingfunction unremarkable. -No stricture, ulceration, or hiatal her iman. 01/[address] SCAN SHOWED:? 2 mm small radiopaque calculi nonobstructive lower pole right kidney? and mid pole left kidney. There are extrarenal kidney pelvises seen.? Mild constipation without obstruction. No evidence of panniculitis or diverticulitis. Small hiatal hernia. ? Fatty lesion anterior body/tail of pancreas junction is stable. 02/15/2018:? ABD MRI SHOWED: Status post cholecystectomy.? No MRI evidence of intra or extrahepatic biliary obstruction, filling defects or stones.Pancreatic metrics incised are normal, no pancreatic mass found. ENDOSCOPIC STUDIES: 12/22/22 EGD SHOWED: Endoscopy Findings: LARYNX: Changes suggestive of LPRD ESOPHAGUS: Hiatal hernia STOMACH: Diffuse gastritis DUODENUM: Two 2-3 mm superficial ulcers in the bulb and normal descending duodenum. Plan: Above findings were reviewed with the patient and Hiatal Hernia and PUD handouts were given in the discharge area. BIOPSIES SHOWED: A. Small bowel, biopsy: Small bowel mucosa within normal limits; preserved villous architecture and no increased intraepithelial lymphocytes seen. B. Stomach, antrum, biopsy: Gastric antral mucosa with mild reactive gastrop athy; negative for Helicobacter pylori, intestinal metaplasia and dysplasia. C. Duodenum, ulcer, biopsy: Superficial fragments of duodenal mucosa within normal limits; preserved villous architecture and no increased intraepithelial lymphocytes seen. D. Stomach, body, biopsy: Gastric body mucosa within normal limits; negative for Helicobacter pylori, intestinal metaplasia and dysplasia. E. Esophagus, distal, biopsy: Squamous mucosa within normal limits; negative for inflammation (including intraepithelial eosinophils), fungal organisms, intestinal metaplasia and dysplasia 03/13/22 COLONOSCOPY SHOWED: Two small adenomatous polyps removed Moderate diverticulosis seen in the []colon Moderate hemorrhoids on retroflexed exam. Plan:? Repeat Colonoscopy in 5 yrs. 11/18/19 COLONOSCOPY SHOWED:? No aguilar yps were detected? Random bx obtained from the colon? Moderate diverticulosis seen in the sigmoid colon ? Moderate hemorrhoids on retroflexed exam. ? Plan: Patient has an appointment on 12/05/19 in the GI Clinic with Sky Horton M.D.-. ? Repeat Colonoscopy interval based on path results in 5 years if colon bxs are normal. ? BIOPSIES SHOWED: ? A. Colon, random, biopsy: Colonic mucosa within normal limits; negative for active, chronic or microscopic colitis. ? B. Rectum, biopsy: Colonic mucosa within normal limits; negative for active, chronic or microscopic colitis. ?09/2017 COLONOSCOPY SHOWED: ? Two adenomatous and one hyperplastic polyps removed ? Patchy erythmea in the descending colon - likely resolving infectious or ? ischemic colitis - possible source of rectal bleeding. ? Random biopsies obtained from the right and left colon which were normal. ? Mild diverticulosis seen in the sigmoid colon ? Small hemorrhoids on retroflexed exam. ? Plan: ? Patient has an appointment on 10/23/17 in the GI Clinic with Sky Horton M.D. ? Repeat Colonoscopy in 5 years if polyps are adenomatous ?02/04/19 EGD SHOWED: ? Esophagus: GE junction at 32 cms, small hiatal hernia 32 to 35 cms. A 1 cms focal ulcer at GE junction - likely healing MW tear or esophagitis due to GERD. ? Stomach: Moderate erythema with healing erosions in the gastric body and hemorrhagic erosions in the antrum. Biopsies were obtained. Grade 3 flap valve on retroflexed examination of the cardia. ? Duodenum: Normal bulb and descending duodenum. Biopsies obtained from 3rd part of duodenum to check for celiac sprue. BIOPSIES SHOWED: A. Small bowel, biopsy: Small bowel mucosa within normal limits; preserved villous architecture and no increase in intraepithelial lymphocytes. B. Stomach, antrum, biopsy: Gastric antral mucosa with mild chronic inactive gastritis; negative for Helicobacter pylori, intestinal metaplasia and dysplasia. C. Stomach, body, biopsy: Gastric body mucosa with mild chronic inactive gastritis; negative for Helicobacter pylori, intestinal metaplasia and dysplasia. D. Esophagus, proximal, biopsy: Squamous mucosa within normal limits; negative for inflammation, fungal organisms, intestinal metaplasia and dysplasia. TODAY'S VISIT: CC: She states that she is still having bloating, stomach pains, issues with the pancreas and colon. She states she now has a hernia and ulcers. She is unable to eat or drink because it feels like she feels like acid. She is having nausea as we speak and she is also dealing with her thyroid issues as well. Patient cc: abdominal pain with bloating, GERD, dysphagia and constipation. Just found out she has kidney stones in both kidneys Pt went for an open MRI and unable to have it done due to anxiety attack. She would like an antianxiety medication before the MRI I cant live with this pain any more Abd pain is getting worse. Pain gets worse when she eats or drinks anything. Pain is burning and associated with bloating and distension. Eating better. Eating fruits after freezing them a little bit. Getting excruciating HAs when she gets heartbutn. Taking Omeprazole twice a day. Has been having diarrhea for the past month and no constipation. Goes to pee and has a BM. Having 4 BMs a day with incomplete evacuation. BMs vary between watery and pudding like stools, very stinky, sometimes black and sometimes sarah color and like sand Not eating a lot. PAST VISIT: Notes worsening burning upper abdominal pain radiating to the back with nausea and vomiting. Feels weak and tired. Only able to drink soups. Worsening pain, bloating and distension when she tries to eat and drink. No BM since 12/15/22 - had a small BM. Attributes to not eating and getting morphine in the ED on 12/18/22. Denies fever, chills and notes sweating. Taking Pantoprazole twice a day which is not helping. EGD and bx results were reviewed with the patient Scheduled for an open MRI at [facility] during the last week of December TSH was elevated and waiting for an appt to see Endocrinology Gloria presents in the office as a follow up patient for abdominal pains. CC: She is having issues - she states she has issues with her thyroid. She is having issues with taking that medication and was told to take it with the stomach medications. 2 months ago she stopped taking her Pantoprazole and now she is unable to drink or eat anything. She is having severe pains in her stomach and severe acid reflux. She is scared because her hair has been falling out as well. Continues to have abdominal pain and bloating. Has a lot of abdominal pain. She was advised to take no medication for 2-3 hours after she takes her Levothyroxine and to take Pantoprazole later - and takes it at 2 pm. Complains of nausea and vomiting Has diarrhea with 4-5 watery stools per day - sometimes stool is like powder. Denies recent constipation. Had recurrent vomiting yesterday - containing white foamy saliva Notes increased burping, bloating and left sided abdominal pain. Seen by her lan engineer and advised she has fluid in her lungs When she goes to the bathroom to pee, she has the urge to defecate with passage of small dark stool. Still taking Omeprazole - Pantoprazole not available at the pharmacy yet - refill sent. Entire body hurts due to fibromyalgia. Started on a new medication for fibromyalgia PENDING SALE TO [facility] Medical History (Updated 05/31/23 @ 09:43 by Blanca Lujan MD) Dysphagia Diarrhea Well woman exam Abnormal finding on EKG Hx of flexible sigmoidoscopy Internal derangement of right shoulder Lump of left breast Lump of right breast Lump of axillary tail of right breast Chronic constipation Rotator cuff impingement syndrome of left shoulder Right forearm pain Colitis Hypertensive urgency Rotator cuff impingement syndrome Lateral epicondylitis of both elbows Fall IBS (irritable bowel syndrome) Abdominal bloating Tendinopathy of left rotator cuff History of TIA (transient ischemic attack) Hypercholesterolemia Vitamin D deficiency Multinodular thyroid Pancreatic cyst Constipation Thyroid nodule Diarrhea Rectal bleeding Esophageal spasm GERD (gastroesophageal reflux disease) Hypertension Asthma Kidney stones History of migraine headaches Fibromyalgia Allergic rhinitis Sciatic nerve pain Ovarian cyst Hypothyroidism Surgical History History of arthroscopic surgery of shoulder Hx of eye surgery History of breast lump/mass excision Hx of hemorrhoidectomy Hx of tubal ligation History of esophagogastroduodenoscopy (EGD) History of colonoscopy (~11/16/19) H/O: hysterectomy History of thyroidectomy (~11/2018) History of kidney surgery Hx of bilateral breast reduction surgery Hx of appendectomy History of cholecystectomy (~2003) H/O lithotripsy Family History Father Family history of high blood pressure History of high cholesterol Mother History of diabetes mellitus Family history of high blood pressure Family history of asthma History of fibromyalgia Liver disease Maternal Grandfather Colon cancer Family/Other Breast cancer Social History Household Members: Spouse Household Members Other:: daughter Housing: Apartment Are you a primary aged or disabled care worker to a significant other at home: No Do you presently have visiting nurse or other home services: No Alcohol intake: never Patient Tobacco Use Status: Former Tobacco user Quit Date: 2013 Tobacco use type: Cigarette Years Smoked: 15 e-Cigarette/Vaping Use: Never Used Second Hand Smoke Exposure: No Substance Use Type: Marijuana service: No Current occupational status: disabled Current occupation: right handed Sexual orientation: Straight/Heterosexual Gender identity: Female Cognitive needs: No Hearing needs: No Vision needs: Yes Female Reproductive History Menstrual Age of Menarche: 14 Review of Systems Const All systems reviewed & are unremarkable except as noted in HPI and below Physical Exam Vital Signs: Last Vital Signs Pulse 80 03/22/23 08:38 BP 132/83 03/22/23 08:38 BMI result Body Mass Index 36.3 Const General: no acute distress Nutritional Appearance: obese Orientation/consciousness: patient oriented x3 Limitations: no limitations HEENT Head: Yes normal to inspection Ears: hearing grossly normal bilaterally Eyes Sclerae: sclerae normal Pupils: Equal, round and reactive pupils present Neck Neck: Yes normal visual inspection Chest Chest palpation & inspection: normal inspection of the chest Resp Effort & Inspection: normal respiratory effort Auscultation: clear to auscultation bilaterally Cardio Palpation: normal PMI Rate: regular rate Rhythm: regular rhythm Heart sounds: S1 normal heart sound present, S2 normal heart sound present and no murmurs GI Palpation (GI): Soft to palpation, nontender and No hepatosplenomegaly present Auscultation: normal bowel sounds Rectal Exam - Female: deferred Skin General skin exam: no rashes or lesions noted Neuro General: patient oriented x3, gait normal and moves all extremities Cranial nerves: Yes Equal, round and reactive pupils present Psych Appearance: grossly normal Mental Status: mental status grossly normal Assessment & Plan Assessment & Plan (1) Acute pancreatitis: Code(s): K85.90 - Acute pancreatitis without necrosis or infection, unspecified (2) Elevated lipase: Code(s): R74.8 - Abnormal levels of other serum enzymes (3) Abdominal pain: Code(s): R10.9 - Unspecified abdominal pain (4) Intermittent constipation: Code(s): K59.09 - Other constipation (5) GERD (gastroesophageal reflux disease): Code(s): K21.9 - Gastro-esophageal reflux disease without esophagitis (6) Irritable bowel syndrome: Code(s): K58.9 - Irritable bowel syndrome without diarrhea (7) Pancreatic cyst: Comment: 8 mm cystic lesion in the pancreas - stable since 2013. Plan is to continue to follow with imaging every 2 years. If size increases to > 1 cms,she will need further evaluation with EUS/MRCP. 02/[address] scan showed Fatty lesion anterior body/tail of pancreas junction is stable. Code(s): K86.2 - Cyst of pancreas (8) Chronic diarrhea: Code(s): K52.9 - Noninfective gastroenteritis and colitis, unspecified Plan 52 YF with htn, fibromyalgia, asthma, migraine BROWNE with long history of abdominal pain associated with diarrhea and bloating, constipation alternating with diarrhea with symptoms suggestive of outlet delay. Abdominal pain is likely due to IBS with constipation and diarrhea. Patient notes partial improvement in symptoms with senna, she has not used a suppository or enema in the past.? She tried dicyclomine in the past and was not helpful for abdominal pain. Patient had a colonoscopy on 11/18/19? for evaluation of rectal bleeding which revealed diverticulosis and no polyps.? Random biopsies obtained from the colon were negative for inflammation. 08/2020 Anorectal manometry with balloon expulsion testing at [facility] [place] showed: IMPRESSIONS: Borderline anal hypertension and borderline anal hypocontractility (overall anal sphincter strength lower than average for gender) Abnormal balloon expulsion with normal manometric pattern of rectoanal coordination normal rectal propulsive force and normal anal relaxation with push) This is considered an inconclusive finding that can also be seen in normal c ontrols according to the Wu classification. Mild rectal hypersensitivity suggestive of chronic constipation She complains of constipation x 2-3 days followed by soft/watery stools lasting for half a day. ?Patient was advised to take Miralax every other day for constipation and take Rifaximin x 14 days for suspected SIBO. Takes Miralax intermittently Pt was advised to go on a clear liquid diet and take Mag Citrate to clean out her colon. Then start taking Linzess for constipation. 01/30/22 - pt was advised stool studies, start a probiotic and increase sucralfate to 3-4 times daily 03/16/22 Pt was switched from Omeprazole to Pantoprazole 40 mg twice daily and started on Amitriptyline 25 mg at bedtime. 04/28/22 Amitriptyline dose was increased to 50 mg at bedtime Pt's wt gain is likely related to elevated TSH levels - repeat TSH planned in [address] Humphrey 11/30/22 Pt complains of left sided abd pain, bloating and worsening GERD symptoms after she was advised to take the Pantoprazole later in the day and stop sucralfate due to suspected drug interaction with Levothyroxine. Pt was advised to increase pantoprazole to 40 mg twice daily and amitriptyline to 75 mg at bedtime She will be scheduled for an EGD (last EGD in 2018 showed a small hiatal hernia and gastritis - no HP on bx) - scheduled on 12/22/22. 12/21/22 Pt seen with worsening upper abdominal pain, nausea, vomiting and unable to tolerate PO food. Pt had an elevated lipase on 12/18/22 Pt advised to return to the ED for repeat labs, lipase and a CT scan with IV contrast. She will need to be admitted if lipase remains elevated for bowel rest and IVF Repeat lipase was normal. ABD CT SCAN SHOWED: PANCREAS: Edematous appearing pancreas with peripancreatic stranding. This appears more pronounced than the 08/08/2020 examination. No peripancreatic fluid collections. No dilatation of the main pancreatic duct. CT findings were reviewed with the patient. 12/22/22 EGD was performed in findings as noted above. Order placed for MRCP for FU of pancreatitis Of note pt is status post lap macy and had a normal triglyceride level a few months ago. Pt advised to schedule an appt with Endocrinology 03/22/23 Pt went for an open MRI and unable to have it done due to anxiety attack. She would like an antianxiety medication before the MRI FU appt in 6 weeks Orders: Orders Gastrin 03/22/23 K52.9 - Noninfective gastroenteritis and colitis, unspecified C Reactive Protein 03/23/23 K52.9 - Noninfective gastroenteritis and colitis, unspecified CDiff Gene PCR 03/22/23 K52.9 - Noninfective gastroenteritis and colitis, unspecified Pancreatic Elastase-1 03/22/23 K52.9 - Noninfective gastroenteritis and colitis, unspecified Lipase 03/22/23 K52.9 - Noninfective gastroenteritis and colitis, unspecified GI Panel 03/22/23 K52.9 - Noninfective gastroenteritis and colitis, unspecified Fecal Fat Qualitative 03/22/23 K52.9 - Noninfective gastroenteritis and colitis, unspecified Ova and Parasite 03/22/23 K52.9 - Noninfective gastroenteritis and colitis, unspecified Medications: Changed From famotidine 20 mg PO BEDTIME 30 days PRN 30 tabs 1RF for acid reflux To famotidine 20 mg PO BEDTIME PRN 90 tabs 1RF for acid reflux 90 days From omeprazole 40 mg (2 x 20 mg) PO DAILY 30 days 60 caps 0RF To omeprazole 40 mg (2 x 20 mg) PO DAILY 180 caps 1RF 90 days Discontinued hyoscyamine sulfate Discontinued Reason: Patient no longer taking 0.125 mg PO QID PRN 20 tabs 0RF abdominal discomfort Coding Level of Care Code Est Pt Level 4 (16288) Diagnoses Acute pancreatitis K85.90 Elevated lipase R74.8 Abdominal pain R10.9 Intermittent constipation K59.09 GERD (gastroesophageal reflux disease) K21.9 Irritable bowel syndrome K58.9 Pancreatic cyst K86.2 Chronic diarrhea K52.9 Time Spent (min) 21
[2023-03-22 08:38] VITALS: BP 132/83; PULSE 80; BMI 36.3
== END 2023-03-22 09:34 | disposition home or self-care (01) ==
PROVIDERS: PCP Internal Medicine; Visit Provider Internal Medicine Gastroenterology
DX: K85.90 Acute pancreatitis without necrosis or infection, unspecified (principal); K58.2 Mixed irritable bowel syndrome; K21.9 Gastro-esophageal reflux disease without esophagitis; K86.2 Cyst of pancreas
CPT/HCPCS: 99214

== ENCOUNTER 2023-03-22 13:10 | Outpatient (REF) | payer OTHER, SELFPAY ==
--- NOTE | ~2023-03-22 | US_ITS ---
EXAMINATION: US PELVIS CLINICAL INFORMATION: Pelvic pain. COMPARISON: Pelvic ultrasound dated 09/19/2019; CT abdomen and pelvis dated 12/21/2022.. TECHNIQUE: Ultrasound of the pelvis is performed using both transabdominal and transvaginal transducers along with Doppler. Transvaginal imaging is performed due to inadequate visualization transabdominally. FINDINGS: Uterus: The uterus is surgically absent. The bilateral ovaries are nonvisualized. No adnexal mass is seen. There is no pelvic ascites or fluid collection. US/US pelvic and transvaginal IMPRESSION: 1. The uterus is surgically absent. 2. The bilateral ovaries are nonvisualized. 3. Otherwise, unremarkable examination.
[2023-03-22 13:56] LABS: MANUAL DIFF FLAG NO
[2023-03-22 14:48] LABS: Basophils Percent Auto 0.3 % (0-2); Eosinophils Absolute Auto 0.1 X10*3/uL (0.0-0.4); Eosinophils Percent Auto 1.1 % (0-4); Hematocrit 43.4 % (37.0-47.0); Hemoglobin 14.5 g/dl (12.0-16.0); Imm Gran Abs Auto 0.03 X10*3/uL (0.00-0.03); Imm Gran Pct Auto 0.3 % (0.0-0.4); Lymphocytes Absolute Auto 2.3 X10*3/uL (1.2-4.9); Lymphocytes Percent Auto 25.2 % (20-40); Mean Corpuscular HGB Conc 33.4 g/dl (31.0-35.0); Mean Corpuscular Hemoglobin 31.2 pg (27.0-33.0); Mean Corpuscular Volume 93.3 fL (80.0-98.0); Mean Platelet Volume 10.8 fL (9.4-12.3); Monocytes Absolute Auto 0.6 X10*3/uL (0.1-1.2); Neutrophils Percent Auto 66.1 % (45-73); Platelet Count 282 X10*3/uL (160-400); Red Blood Count 4.65 X10*6/uL (4.20-5.50); Red Cell Distribution Width 13.4 % (11.0-16.0); White Blood Count 9.1 X10*3/uL (4.8-10.8)
[2023-03-22 15:35] LABS: Alanine Aminotransferase 26 U/L (0-31); Albumin Level 4.1 g/dL (3.5-5.0); Alkaline Phosphatase 74 U/L (39-117); Aspartate Amino Transferase 20 U/L (5-31); Bilirubin Direct 0.1 mg/dL (0.0-0.5); Bilirubin Total 0.3 mg/dL (0.0-1.0); C Reactive Protein 0.16 mg/dL (< or = 0.50); Calcium 9.5 mg/dL (8.4-10.2); Lipase 9 U/L (8-78); Total Protein 7.8 g/dL (6.5-8.0)
[2023-03-22 15:50] LABS: TSH reflex Free T4 0.71 uIU/mL (0.32-4.0)
[2023-03-22 16:02] LABS: Folate 8.1 ng/mL (> or = 4.0)
[2023-03-23 14:14] LABS: Immunoglobulin A 373 mg/dL (47-310)
[2023-03-23 15:28] LABS: Immunoglobulin G Subclass 1 590 mg/dL (382-929); Immunoglobulin G Subclass 2 375 mg/dL (241-700); Immunoglobulin G Subclass 3 16 mg/dL (22-178); Immunoglobulin G Subclass 4 166.8 mg/dL (4-86); Immunoglobulin G Total 1214 mg/dL (600-1640)
[2023-03-24 17:08] LABS: Gastrin 183 pg/mL (<=100)
== END 2023-03-22 13:11 | disposition home or self-care (01) ==
LOC: HO.US 13:10
PROVIDERS: Internal Medicine Gastroenterology; PCP Internal Medicine; Referring Provider Internal Medicine Endocrinology, Diabetes & Metabolism; Visit Provider Obstetrics & Gynecology
DX: K21.9 Gastro-esophageal reflux disease without esophagitis (principal); R10.2 Pelvic and perineal pain; E89.0 Postprocedural hypothyroidism; R14.0 Abdominal distension (gaseous); K85.90 Acute pancreatitis without necrosis or infection, unspecified; K59.09 Other constipation; K58.0 Irritable bowel syndrome with diarrhea; K86.2 Cyst of pancreas; K52.9 Noninfective gastroenteritis and colitis, unspecified; K58.1 Irritable bowel syndrome with constipation; R74.8 Abnormal levels of other serum enzymes; Z79.899 Other long term (current) drug therapy
CPT/HCPCS: 36415; 76830; 76856; 80076; 82310; 82746; 82784; 82941; 83690; 84443; 85025; 86140; 99212

== ENCOUNTER 2023-03-23 09:59 | Outpatient (REF) | payer OTHER, SELFPAY ==
[2023-03-23 11:05] LABS: C Reactive Protein 0.25 mg/dL (< or = 0.50); Lipase 10 U/L (8-78)
== END 2023-03-23 10:00 | disposition home or self-care (01) ==
LOC: HO.LAB 09:59
PROVIDERS: PCP Internal Medicine; Visit Provider Internal Medicine Gastroenterology
DX: K21.9 Gastro-esophageal reflux disease without esophagitis (principal); R10.9 Unspecified abdominal pain; K52.9 Noninfective gastroenteritis and colitis, unspecified; R74.8 Abnormal levels of other serum enzymes
CPT/HCPCS: 36415; 83690; 86140

== ENCOUNTER 2023-03-26 10:43 | Outpatient (AMB) | payer OTHER, SELFPAY ==
--- NOTE | 2023-03-26 10:45 | MHC.OFFVIS ---
Intake Vital Signs 03/26/23 10:53 Height 5 ft 6 in Weight 226 lb BMI 36.5 BP 144/85 H Blood Pressure Location Rt brachial Position Sitting Pulse 120 H Intake Visit Reasons: lump in the left breast, upper outer quadrant Intake Note: Patient is seen in office for evaluation and treatment of a left breast lump. Pt c/o; reports pain, reports discomfort, report Hx breast reduction 2008. Manager Credit Collections Required: No Education Officer: Education Officer offered & declined Accompanied by: Self / Same As Patient Allergies pineapple [PINEAPPLE] Allergy (Severe, Verified 03/26/23 10:50) ANAPHYLAXIS adhesive tape Allergy (Intermediate, Verified 03/26/23 10:50) Blister Iodinated Contrast Media [IV Dye, Iodine Containing] Allergy (Intermediate, Verified 03/26/23 10:50) SOB,RASH levofloxacin [From Levaquin] Allergy (Intermediate, Verified 03/26/23 10:50) swelling/rash oxycodone [From Percocet] Allergy (Intermediate, Verified 03/26/23 10:50) rash/SOB aspirin [ASA] Adverse Reaction (Mild, Verified 03/26/23 10:50) UPSET STOMACH Medication List - Last Reconciled 03/26/23 by Nelson Murguia MD aluminum hydrox-magnesium carb 254-237.5 mg/5 mL (Gaviscon Extra Strength) 10 mL PO QID PRN amitriptyline 75 mg (3 x 25 mg) PO BEDTIME 60 days amlodipine 10 mg PO DAILY atorvastatin (Lipitor) 10 mg PO DAILY budesonide-formoterol 160-4.5 mcg/actuation (Symbicort) 2 puffs inhalation BID cholecalciferol (vitamin D3) 50 mcg PO DAILY 30 days clobetasol 0.05% 1 appl topical BID 4 weeks clotrimazole-betamethasone 1-0.05 % 1 appl topical BID 5 days diclofenac sodium 75 mg PO BID PRN docusate sodium 100 mg PO BID famotidine 20 mg PO BEDTIME PRN 90 days fluticasone furoate-vilanterol 200-25 mcg/dose (Breo Ellipta) 1 inh inhalation DAILY 30 days ipratropium-albuterol 0.5 mg-3 mg(2.5 mg base)/3 mL 3 mL inhalation Q4-6H PRN levothyroxine 200 mcg PO DAILY lisinopril 10 mg PO DAILY lorazepam 1 mg PO ONCE PRN metoprolol tartrate Take 2 tablets in the morning and 1 tablet at night PO; 90 days omalizumab (Xolair) 300 mg (2 mL) subcut Q2W omeprazole 40 mg (2 x 20 mg) PO DAILY 90 days polyethylene glycol 3350 (Gavilax) 17 grams PO BID 60 days Tirosint (levothyroxine) 200 mcg PO DAILY NS umeclidinium 62.5 mcg/actuation (Incruse Ellipta) 1 inh inhalation DAILY 30 days Ventolin HFA 90 mcg/actuation (albuterol sulfate) 2 puffs inhalation Q4-6H PRN 30 days NS HPI lump in the left breast, upper outer quadrant HPI Details 52-year-old female referred for a lump on the left breast. She says that she has felt what she thinks is a lump on her left breast in the upper part. She says that he has noticed this for almost 3 months now. She also has had this history of pain on both breasts diffusely is left more than the right for years now. She has a history of breast reduction surgery. She had menarche at age of 10. Her 1st was the age of 18. She had 8 pregnancies and 4 of these were carried 2 full-term. She mentions 1 of her sisters daughters had breast cancer at age of 30. She also says that maternal aunt had breast cancer in her 50s [facility] Medical History Dysphagia Diarrhea Well woman exam Abnormal finding on EKG Hx of flexible sigmoidoscopy Internal derangement of right shoulder Lump of left breast Lump of right breast Lump of axillary tail of right breast Chronic constipation Rotator cuff impingement syndrome of left shoulder Right forearm pain Colitis Hypertensive urgency Rotator cuff impingement syndrome Lateral epicondylitis of both elbows Fall IBS (irritable bowel syndrome) Abdominal bloating Tendinopathy of left rotator cuff History of TIA (transient ischemic attack) Hypercholesterolemia Vitamin D deficiency Multinodular thyroid Pancreatic cyst Constipation Thyroid nodule Diarrhea Rectal bleeding Esophageal spasm GERD (gastroesophageal reflux disease) Hypertension Asthma Kidney stones History of migraine headaches Fibromyalgia Allergic rhinitis Sciatic nerve pain Ovarian cyst Hypothyroidism Surgical History History of arthroscopic surgery of shoulder Hx of eye surgery History of breast lump/mass excision Hx of hemorrhoidectomy Hx of tubal ligation History of esophagogastroduodenoscopy (EGD) History of colonoscopy (~11/16/19) H/O: hysterectomy History of thyroidectomy (~11/2018) History of kidney surgery Hx of bilateral breast reduction surgery Hx of appendectomy History of cholecystectomy (~2003) H/O lithotripsy Family History Father Family history of high blood pressure History of high cholesterol Mother History of diabetes mellitus Family history of high blood pressure Family history of asthma History of fibromyalgia Liver disease Maternal Grandfather Colon cancer Family/Other Breast cancer Social History Household Members: Spouse Household Members Other:: daughter Housing: Apartment Are you a primary healthcare receptionist to a significant other at home: No Do you presently have visiting nurse or other home services: No Alcohol intake: current Alcohol intake frequency: holidays/special occasions only Patient Tobacco Use Status: Former Tobacco user Quit Date: 2013 Tobacco use type: Cigarette Years Smoked: 15 e-Cigarette/Vaping Use: Never Used Second Hand Smoke Exposure: No Substance Use Type: Marijuana service: No Current occupational status: disabled Current occupation: right handed Sexual orientation: Straight/Heterosexual Gender identity: Female Cognitive needs: No Hearing needs: No Vision needs: Yes Female Reproductive History Menstrual Age of Menarche: 10 Total pregnancies: 4 Number of Living Children: 4 Ab spontaneous: 4 Review of Systems Const Denies chills and Denies fever(s) Card Denies chest pain, Denies dyspnea and Denies dyspnea on exertion Resp Denies cough, Denies dyspnea and Denies dyspnea on exertion GI Denies hematochezia and Denies change in bowel habits Denies hematuria Musc Denies back pain and Denies limited range of motion Neuro Denies focal weakness and Denies convulsions Psych Denies depression and Denies mood swings Physical Exam Vital Signs: Last Vital Signs Pulse 120 H 03/26/23 10:53 BP 144/85 H 03/26/23 10:53 BMI result Body Mass Index 36.5 Const General: comfortable and no acute distress Orientation/consciousness: patient oriented x3 Neck Neck: Yes no lymphadenopathy Chest Other: No palpable breast masses, no axillary lymphadenopathy, she has a reduction scar on both breasts Resp Auscultation: clear to auscultation bilaterally Cardio Rhythm: regular rhythm GI Palpation (GI): Soft to palpation, nontender and no guarding Neuro General: patient oriented x3 Assessment & Plan Assessment & Plan (1) Breast lump on left side at 1 o'clock position: Comment: 8 cm from the nipple Code(s): N63.21 - Unspecified lump in the left breast, upper outer quadrant Plan: She describes having a lump on the left breast in the upper part. I do not particularly feel his at this time. She was sent for an ultrasound and mammogram. This does not reveal any suspicious findings. There may be a small simple cyst on the area where she is pointing to but this appears benign I have recommended for her to make sure that she continues with regular screening mammograms. I explained to her about the findings She can follow up on a p.r.n. basis I also asked her to make sure that she knows of whether her niece with a breast cancer had genetic testing or not. If this was positive, I would recommend proceeding with genetic testing for the patient as well. Coding Level of Care Code Est Pt Level 3 (99009) Diagnoses Breast lump on left side at 1 o'clock position N63.21
[2023-03-26 10:53] VITALS: BP 144/85; PULSE 120; BMI 36.5
== END 2023-03-26 11:36 | disposition home or self-care (01) ==
PROVIDERS: PCP Internal Medicine; Referring Provider Obstetrics & Gynecology; Visit Provider Surgery
DX: N63.21 Unspecified lump in the left breast, upper outer quadrant (principal)
CPT/HCPCS: 99213

== ENCOUNTER → 2023-03-26 10:43 | Outpatient (BNVA) | payer OTHER, SELFPAY | PROVIDERS: PCP Internal Medicine; Referring Provider Obstetrics & Gynecology; Visit Provider Surgery | DX: N63.21 Unspecified lump in the left breast, upper outer quadrant (principal) | CPT/HCPCS: 99212 ==

== ENCOUNTER 2023-04-03 09:11 | Outpatient (REF) | payer OTHER, SELFPAY | END 2023-04-03 09:12 | disposition home or self-care (01) | LOC: HO.MDS 09:11 | PROVIDERS: Visit Provider Internal Medicine Pulmonary Disease | DX: J45.50 Severe persistent asthma, uncomplicated (principal); Z01.811 Encounter for preprocedural respiratory examination; Z91.09 Other allergy status, other than to drugs and biological substances | CPT/HCPCS: 96372; 99212; J2357 ==

== ENCOUNTER 2023-04-03 10:30 | Outpatient (AMB) | payer OTHER, SELFPAY ==
--- NOTE | 2023-04-03 10:33 | A.OFFVIS_ITS ---
Intake Vital Signs 04/03/23 10:34 Height 5 ft 6 in Weight 227 lb 1.218 oz BMI 36.6 BP 118/82 Blood Pressure Location Rt brachial Position Sitting Pulse 102 H Pulse Source Doppler Pulse Oximetry (%) 96 Oxygen Delivery Method Room Air Intake Visit Reasons: Left ESWL on 04/04/23-urology/Asthma Allergies pineapple [PINEAPPLE] Allergy (Severe, Verified 04/03/23 10:37) ANAPHYLAXIS adhesive tape Allergy (Intermediate, Verified 04/03/23 10:37) Blister Iodinated Contrast Media [IV Dye, Iodine Containing] Allergy (Intermediate, Verified 04/03/23 10:37) SOB,RASH levofloxacin [From Levaquin] Allergy (Intermediate, Verified 04/03/23 10:37) swelling/rash oxycodone [From Percocet] Allergy (Intermediate, Verified 04/03/23 10:37) rash/SOB aspirin [ASA] Adverse Reaction (Mild, Verified 04/03/23 10:37) UPSET STOMACH HPI Left ESWL on 04/04/23-urology/Asthma HPI Details 52-year-old lady with underlying severe persistent allergic asthma and environmental allergies she has been using Xolair, Symbicort and albuterol MDI, with good control of her underlying symptoms. She denies any recent exacerbations. Patient has had COVID approximately 1 months prior, now she has recovered to baseline. She is scheduled for lithotripsy. [facility] Medical History Dysphagia Diarrhea Well woman exam Abnormal finding on EKG Hx of flexible sigmoidoscopy Internal derangement of right shoulder Lump of left breast Lump of right breast Lump of axillary tail of right breast Chronic constipation Rotator cuff impingement syndrome of left shoulder Right forearm pain Colitis Hypertensive urgency Rotator cuff impingement syndrome Lateral epicondylitis of both elbows Fall IBS (irritable bowel syndrome) Abdominal bloating Tendinopathy of left rotator cuff History of TIA (transient ischemic attack) Hypercholesterolemia Vitamin D deficiency Multinodular thyroid Pancreatic cyst Constipation Thyroid nodule Diarrhea Rectal bleeding Esophageal spasm GERD (gastroesophageal reflux disease) Hypertension Asthma Kidney stones History of migraine headaches Fibromyalgia Allergic rhinitis Sciatic nerve pain Ovarian cyst Hypothyroidism Surgical History History of arthroscopic surgery of shoulder Hx of eye surgery History of breast lump/mass excision Hx of hemorrhoidectomy Hx of tubal ligation History of esophagogastroduodenoscopy (EGD) History of colonoscopy (~11/16/19) H/O: hysterectomy History of thyroidectomy (~11/2018) History of kidney surgery Hx of bilateral breast reduction surgery Hx of appendectomy History of cholecystectomy (~2003) H/O lithotripsy Family History Father Family history of high blood pressure History of high cholesterol Mother History of diabetes mellitus Family history of high blood pressure Family history of asthma History of fibromyalgia Liver disease Maternal Grandfather Colon cancer Family/Other Breast cancer Social History Household Members: Spouse Household Members Other:: daughter Housing: Apartment Are you a primary healthcare applications analyst to a significant other at home: No Do you presently have visiting nurse or other home services: No Alcohol intake: current Alcohol intake frequency: holidays/special occasions only Patient Tobacco Use Status: Former Tobacco user Quit Date: 2013 Tobacco use type: Cigarette Years Smoked: 15 e-Cigarette/Vaping Use: Never Used Second Hand Smoke Exposure: No Substance Use Type: Marijuana service: No Current occupational status: disabled Current occupation: right handed Sexual orientation: Straight/Heterosexual Gender identity: Female Cognitive needs: No Hearing needs: No Vision needs: Yes Female Reproductive History Menstrual Age of Menarche: 10 Review of Systems Const Denies daytime sleepiness, Denies excessive sweating, Denies fatigue, Denies fever(s), Denies lethargy, Denies malaise, Denies night sweats, Denies snoring and Denies weight loss Eyes Denies blurry vision and Denies itchy eyes ENT Denies nasal congestion, Denies post nasal drip, Denies sinus pain, Denies sinus pressure and Denies other ( Thrush) Card Denies chest pain, Denies pedal edema, Denies dyspnea, Denies orthopnea and Denies paroxysmal nocturnal dyspnea Resp Denies cough, Denies hemoptysis, Denies excessive phlegm production, Denies dyspnea, Denies snoring and Denies wheezing GI Denies abdominal pain and Denies heartburn Musc Denies myalgias, Denies arthralgias and Denies joint swelling Skin/Breast Denies rash Neuro Denies memory loss and Denies seizure-like activity Psych Denies abnormal sleep pattern, Denies anxiety and Denies memory loss Endo Denies excessive sweating, Denies fatigue and Denies heat intolerance Chuy/Lymph Denies easy bruising Aller/Immun Denies itchy eyes, Denies seasonal rhinorrhea and Denies wheezing Physical Exam Vital Signs: Last Vital Signs Pulse 102 H 04/03/23 10:34 BP 118/82 04/03/23 10:34 Pulse Ox 96 04/03/23 10:34 Oxygen Delivery Method Room Air 04/03/23 10:34 BMI result Body Mass Index 36.6 Const General: no acute distress and alert Nutritional Appearance: obese Orientation/consciousness: Other orientation findings ( oriented) HEENT Head: Yes atraumatic Eyes General: appearance normal, both eyes and all related structures Sclerae: sclerae normal EOM: EOMs intact bilaterally Neck Neck: Yes supple Lymphatic: no lymphadenopathy noted Resp Effort & Inspection: normal respiratory effort and no use of accessory muscles Auscultation: clear to auscultation bilaterally Cardio Rate: regular rate Rhythm: regular rhythm Heart sounds: no gallops, no murmurs and no rubs Skin General skin exam: other ( warm) Extrem General: No clubbing, No cyanosis and No edema Assessment & Plan Assessment & Plan (1) Asthma: Code(s): J45.909 - Unspecified asthma, uncomplicated Qualifiers: Asthma severity: severe Asthma persistence: persistent Asthma complication type: unspecified Qualified Code(s): J45.50 - Severe persistent asthma, uncomplicated Plan: Well controlled on Xolair, Breo, duo nebs, and albuterol MDI. Continue current regimen. (2) Environmental allergies: Code(s): Z91.09 - Other allergy status, other than to drugs and biological substances Plan: Well controlled on Xolair. Continue current regimen. (3) Encounter for preoperative pulmonary examination: Code(s): Z01.811 - Encounter for preprocedural respiratory examination Plan: At this time patient is at low risk for pulmonary perioperative complications for the proposed lithotripsy either under general anesthesia, or monitored anesthesia care. Coding Level of Care Code Est Pt Level 4 (34074) Diagnoses Severe persistent asthma, unspecified whether complicated J45.50 Asthma severity: severe Asthma persistence: persistent Asthma complication type: unspecified Environmental allergies Z91.09 Encounter for preoperative pulmonary examination Z01.811
[2023-04-03 10:34] VITALS: BP 118/82; PULSE 102; O2SAT 96; BMI 36.6
== END 2023-04-03 10:49 | disposition home or self-care (01) ==
PROVIDERS: PCP Internal Medicine; Visit Provider Internal Medicine Pulmonary Disease
DX: J45.50 Severe persistent asthma, uncomplicated (principal); Z91.09 Other allergy status, other than to drugs and biological substances; Z01.811 Encounter for preprocedural respiratory examination
CPT/HCPCS: 99214

== ENCOUNTER 2023-04-04 06:57 | Day surgery (SDC) | payer OTHER, SELFPAY ==
[2023-04-02 10:13] VITALS: BMI 38.6
--- NOTE | 2023-04-03 09:11 | P.CONAN_ITS ---
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 (Acute) Chronic diarrhea (Acute) Pelvic pain (Acute) Breast lump on left side at 1 o'clock position (Acute) Chest pain (Acute) Bilateral renal stones (Acute) Acute pancreatitis (Acute) Elevated lipase (Acute) Abdominal pain (Acute) PND (paroxysmal nocturnal dyspnea) (Acute) Right elbow pain (Acute) Migraine (Acute) Skin candidiasis (Acute) Pruritic rash (Acute) Intermittent constipation (Acute) Lichen simplex chronicus (Acute) Obesity (Acute) GERD (gastroesophageal reflux disease) (Acute) Vulvar lesion (Acute) Irritable bowel syndrome (Acute) Post-surgical hypothyroidism (Acute) History of repair of right rotator cuff (Acute) Environmental allergies (Acute) Depression (Acute) Adhesive capsulitis of left shoulder (Acute) Complete rotator cuff tear or rupture of right shoulder, not specified as traumatic (Acute) Hypercholesterolemia (Acute) Vitamin D deficiency (Acute) Pancreatic cyst (Acute) Hypertension (Acute) Asthma (Acute) Esophageal spasm (Acute) Fibromyalgia (Acute) Past Medical History Medical History Dysphagia Diarrhea Well woman exam Abnormal finding on EKG Hx of flexible sigmoidoscopy Internal derangement of right shoulder Lump of left breast Lump of right breast Lump of axillary tail of right breast Chronic constipation Rotator cuff impingement syndrome of left shoulder Right forearm pain Colitis Hypertensive urgency Rotator cuff impingement syndrome Lateral epicondylitis of both elbows Fall IBS (irritable bowel syndrome) Abdominal bloating Tendinopathy of left rotator cuff History of TIA (transient ischemic attack) Hypercholesterolemia Vitamin D deficiency Multinodular thyroid Pancreatic cyst Constipation Thyroid nodule Diarrhea Rectal bleeding Esophageal spasm GERD (gastroesophageal reflux disease) Hypertension Asthma Kidney stones History of migraine headaches Fibromyalgia Allergic rhinitis Sciatic nerve pain Ovarian cyst Hypothyroidism Family History Family History Father Family history of high blood pressure History of high cholesterol Mother History of diabetes mellitus Family history of high blood pressure Family history of asthma History of fibromyalgia Liver disease Maternal Grandfather Colon cancer Family/Other Breast cancer Family history of problems with anesthesia: No Surgical History Surgical History History of arthroscopic surgery of shoulder Hx of eye surgery History of breast lump/mass excision Hx of hemorrhoidectomy Hx of tubal ligation History of esophagogastroduodenoscopy (EGD) History of colonoscopy (~11/16/19) H/O: hysterectomy History of thyroidectomy (~11/2018) History of kidney surgery Hx of bilateral breast reduction surgery Hx of appendectomy History of cholecystectomy (~2003) H/O lithotripsy History of Problems with Anesthesia: No Social History Social History Household Members: Spouse Household Members Other:: daughter Housing: Apartment Are you a primary home health care physician to a significant other at home: No Do you presently have visiting nurse or other home services: No Alcohol intake: current Alcohol intake frequency: holidays/special occasions only Patient Tobacco Use Status: Former Tobacco user Quit Date: 2013 Tobacco use type: Cigarette Years Smoked: 15 e-Cigarette/Vaping Use: Never Used Second Hand Smoke Exposure: No Substance Use Type: Marijuana service: No Current occupational status: disabled Current occupation: right handed Sexual orientation: Straight/Heterosexual Gender identity: Female Cognitive needs: No Hearing needs: No Vision needs: Yes Meds Allergies Allergy/AdvReac Type Severity Reaction Status Date / Time pineapple [PINEAPPLE] Allergy Severe ANAPHYLAXIS Verified 03/26/23 10:50 adhesive tape Allergy Intermediate Blister Verified 03/26/23 10:50 Iodinated Contrast Media Allergy Intermediate SOB,RASH Verified 03/26/23 10:50 [IV Dye, Iodine Containing] levofloxacin [From Levaquin] Allergy Intermediate swelling/ra Verified 03/26/23 10:50 sh oxycodone [From Percocet] Allergy Intermediate rash/SOB Verified 03/26/23 10:50 aspirin [ASA] AdvReac Mild UPSET Verified 03/26/23 10:50 STOMACH Home Medications Medication Instructions Recorded Confirmed Last Taken Type budesonide-formoterol HFA 160 2 puff inhalation BID 11/30/22 03/26/23 Unknown History mcg-4.5 mcg/actuation aerosol inhaler (Symbicort) levothyroxine 175 mcg tablet 200 mcg PO DAILY 03/22/23 03/26/23 Unknown History Exam Height,Weight and Vital Signs: Height 5 ft 6 in Weight 108.409 kg Pertinent Lab Results Pertinent Lab Results: Laboratory Tests 12/21/22 03/22/23 09:01 13:55 WBC 9.1 Hgb 14.5 Hct 43.4 Plt Count 282 Sodium 141 Potassium 3.5 Chloride 102 Carbon Dioxide 25 BUN 14 Creatinine 0.80 Narrative Narrative: Exercise Stress 01/2023 Protocol: [place] Max HR: 150 BPM 88% of Pred: 170 BPM Max BP: 148/080 mmHG Max Work Load: 6.0 METS Exercise stress test exercise 5 min of Winston protocol (stage 2 2.2mph 11.5% greade) achieving 88% MPHR, with mild SOB, 7-8/10 baseline pressure. 10/10 at peak, without arrhythmias, with no signfiicant change in BPs, without EKG changes. Chest pain returned to baseline with rest.Test reviewed with Jesica Ashley. EKG 04/2022 Vent. Rate : 106 BPM Atrial Rate : 106 BPM P-R Int : 154 ms QRS Dur : 074 ms QT Int : 362 ms P-R-T Axes : 027 -20 032 degrees QTc Int : 480 ms Sinus tachycardia Inferior infarct , age undetermined Cannot rule out Anterior infarct , age undetermined Abnormal ECG When compared with ECG of 06-AUG-2020 12:16, Vent. rate has increased BY 37 BPM Minimal criteria for Anterior infarct are now Present Inferior infarct is now Present Assessment and Plan Assessment Anesthesia Assessment: Chart Reviewed Final Anesthetic Review Family History of Problems with Anesthesia: No History of Problems with Anesthesia: No
--- NOTE | ~2023-04-04 | XR_ITS ---
EXAMINATION: XR ABDOMEN KUB CLINICAL INDICATION: Pre-ESWL. COMPARISON: Renal ultrasound dated 02/12/2023; CT abdomen and pelvis dated 12/21/2022. TECHNIQUE: 3 AP views of the abdomen and pelvis are submitted. FINDINGS: The bowel gas pattern is normal with no evidence of ileus or obstruction. A 4 mm calculus is redemonstrated at the lower pole of the right kidney. There are right upper quadrant surgical clips. The bones are unremarkable. XR/XR KUB IMPRESSION: A 4 mm right renal lower pole calculus is redemonstrated.
[2023-04-04 07:14] VITALS: BMI 38.4
[2023-04-04 07:32] VITALS: BP 148/100; PULSE 103; RESP 16; TEMP 36.3; O2SAT 97
[2023-04-04] MEDS: Lactated Ringers 500 ML 999 ML IV (07:34)
--- NOTE | 2023-04-04 08:06 | HO.ANESPROP2 ---
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 (Acute) Chronic diarrhea (Acute) Pelvic pain (Acute) Breast lump on left side at 1 o'clock position (Acute) Chest pain (Acute) Bilateral renal stones (Acute) Acute pancreatitis (Acute) Elevated lipase (Acute) Abdominal pain (Acute) PND (paroxysmal nocturnal dyspnea) (Acute) Right elbow pain (Acute) Migraine (Acute) Skin candidiasis (Acute) Pruritic rash (Acute) Intermittent constipation (Acute) Lichen simplex chronicus (Acute) Obesity (Acute) GERD (gastroesophageal reflux disease) (Acute) Vulvar lesion (Acute) Irritable bowel syndrome (Acute) Post-surgical hypothyroidism (Acute) History of repair of right rotator cuff (Acute) Environmental allergies (Acute) Depression (Acute) Adhesive capsulitis of left shoulder (Acute) Complete rotator cuff tear or rupture of right shoulder, not specified as traumatic (Acute) Hypercholesterolemia (Acute) Vitamin D deficiency (Acute) Pancreatic cyst (Acute) Hypertension (Acute) Asthma (Acute) Esophageal spasm (Acute) Fibromyalgia (Acute) Past Medical History Medical History Dysphagia Diarrhea Well woman exam Abnormal finding on EKG Hx of flexible sigmoidoscopy Internal derangement of right shoulder Lump of left breast Lump of right breast Lump of axillary tail of right breast Chronic constipation Rotator cuff impingement syndrome of left shoulder Right forearm pain Colitis Hypertensive urgency Rotator cuff impingement syndrome Lateral epicondylitis of both elbows Fall IBS (irritable bowel syndrome) Abdominal bloating Tendinopathy of left rotator cuff History of TIA (transient ischemic attack) Hypercholesterolemia Vitamin D deficiency Multinodular thyroid Pancreatic cyst Constipation Thyroid nodule Diarrhea Rectal bleeding Esophageal spasm GERD (gastroesophageal reflux disease) Hypertension Asthma Kidney stones History of migraine headaches Fibromyalgia Allergic rhinitis Sciatic nerve pain Ovarian cyst Hypothyroidism Functional capacity: independent ambulation Family History Family History Father Family history of high blood pressure History of high cholesterol Mother History of diabetes mellitus Family history of high blood pressure Family history of asthma History of fibromyalgia Liver disease Maternal Grandfather Colon cancer Family/Other Breast cancer Family history of problems with anesthesia: No Surgical History Surgical History History of arthroscopic surgery of shoulder Hx of eye surgery History of breast lump/mass excision Hx of hemorrhoidectomy Hx of tubal ligation History of esophagogastroduodenoscopy (EGD) History of colonoscopy (~11/16/19) H/O: hysterectomy History of thyroidectomy (~11/2018) History of kidney surgery Hx of bilateral breast reduction surgery Hx of appendectomy History of cholecystectomy (~2003) H/O lithotripsy History of Problems with Anesthesia: No Social History Social History Household Members: Spouse Household Members Other:: daughter Housing: Apartment Are you a primary animal care provider to a significant other at home: No Do you presently have visiting nurse or other home services: No Alcohol intake: current Alcohol intake frequency: does not drink Patient Tobacco Use Status: Former Tobacco user Quit Date: 2013 Tobacco use type: Cigarette Years Smoked: 15 e-Cigarette/Vaping Use: Never Used Second Hand Smoke Exposure: No Use of substances other than those prescribed or required for medical reasons: Yes Substance Use Type: Marijuana Are you DNR?: No Advance Directives: No Advance Directives Information Provided: Yes Advance Directives on File: No service: No Current occupational status: disabled Current occupation: right handed Sexual orientation: Straight/Heterosexual Gender identity: Female Cognitive needs: No Hearing needs: No Vision needs: Yes Meds Allergies Allergy/AdvReac Type Severity Reaction Status Date / Time pineapple [PINEAPPLE] Allergy Severe ANAPHYLAXIS Verified 04/03/23 10:37 adhesive tape Allergy Intermediate Blister Verified 04/03/23 10:37 Iodinated Contrast Media Allergy Intermediate SOB,RASH Verified 04/03/23 10:37 [IV Dye, Iodine Containing] levofloxacin [From Levaquin] Allergy Intermediate swelling/ra Verified 04/03/23 10:37 sh oxycodone [From Percocet] Allergy Intermediate rash/SOB Verified 04/03/23 10:37 aspirin [ASA] AdvReac Mild UPSET Verified 04/03/23 10:37 STOMACH Active Medications: Current Medications Albuterol Sulfate (Albuterol Sulfate (0.083%) 2.5 Mg/3 Ml Vial.Neb) 2.5 mg INHALE ONCE PRN PRN Reason: Shortness of Breath/Wheezing Lactated Ringer's (Lr) 1,000 mls @ 100 mls/hr IVCONT .Q10H MAURISIO Home Medications Medication Instructions Recorded Confirmed Last Taken Type budesonide-formoterol HFA 160 2 puff inhalation BID 11/30/22 03/26/23 Unknown History mcg-4.5 mcg/actuation aerosol inhaler (Symbicort) levothyroxine 175 mcg tablet 200 mcg PO DAILY 03/22/23 03/26/23 Unknown History Exam Height,Weight and Vital Signs: Height 5 ft 6 in Weight 108.04 kg Last Vital Signs Temp 97.4 F 04/04/23 07:32 Pulse 103 H 04/04/23 07:32 Resp 16 04/04/23 07:32 BP 148/100 H 04/04/23 07:32 Pulse Ox 97 04/04/23 07:32 O2 Del Method Room Air 04/04/23 07:32 Airway Mallampati Class: III TM Dist: >3cm Neck ROM: Full Heart: RRR Lungs: CTA Assessment and Plan Assessment Anesthesia Assessment: Anesthesia Plan Discussed Final Anesthetic Review Family History of Problems with Anesthesia: No History of Problems with Anesthesia: No NPO: Yes ASA Class: III Final Preanesthetic Review: Meds/Allgs Chart Reviewed, Consent Obtained/Reviewed and Anes Risks/Benef Reviewed Patient Risk: Low Procedure Risk: Low Anesthetic Plan Anesthetic Plan: GA Disposition: Standard PACU
[2023-04-04] MEDS: Lactated Ringers 1,000 ML 100 ML IVCONT (08:35)
--- NOTE | 2023-04-04 08:43 | MHC.SHP ---
Pre-Procedural Eval Section A - 24 Hr Update-Section A only Date of Service: 04/04/23 The patient is an INPATIENT: No The patient has been examined within 24 hours of the surgical procedure. The History & Physical has been completed within 30 days and I have reviewed it.: Yes Section B - Complete if H&P > 30 days Chief Complaint: Calculus of kidney Allergies: Allergies Allergy/AdvReac Type Severity Reaction Status Date / Time pineapple [PINEAPPLE] Allergy Severe ANAPHYLAXIS Verified 04/03/23 10:37 adhesive tape Allergy Intermediate Blister Verified 04/03/23 10:37 Iodinated Contrast Media Allergy Intermediate SOB,RASH Verified 04/03/23 10:37 [IV Dye, Iodine Containing] levofloxacin [From Levaquin] Allergy Intermediate swelling/ra Verified 04/03/23 10:37 sh oxycodone [From Percocet] Allergy Intermediate rash/SOB Verified 04/03/23 10:37 aspirin [ASA] AdvReac Mild UPSET Verified 04/03/23 10:37 STOMACH Plan Diagnosis/Plan: Unchanged I have reviewed the history and physical and performed a pertinent physical examination on my patient. No changes have occurred unless specified. Left ESWL. Discussed risks to include but not limited to, blood in the urine, bruising to the skin, kidney hematoma, possible need for another procedure if a stone fragment obstructs the ureter while passing, possible need to repeat procedure if stone is not completely fragmented. Time Spent With Patient Time: Total time managing care of this patient today ____ minutes.
--- NOTE | 2023-04-04 09:22 | W.PM.OPN ---
Operative Note Operative Note Date of Service: 04/04/23 Narrative: PreOperative Diagnosis:? ? Left Renal stone Post Operative Diagnosis:?Left? Renal stone Procedure:?Left? ESWL Surgeon:?Dr Blanca Lujan Anesthesia:? General Indications for procedure: The patient understands there is a risk of bruising or hematoma to the kidney, infection, and stone migration following the procedure and subsequent intervention may be required.? - Imaging Left kidney stone mid- upper pole 4x6 mm stone Procedure: After informed consent was verified the patient was brought to the operating room and placed in a supine position.? Anesthesia was performed per protocol. Safety pause time-out was performed. Imaging was displayed in the room and laterality confirmed. ESWL was performed.?The stone was visualized on ultrasound.? Shockwave lithotripsy was performed, after the first 300 shocks a pause for 3 minutes was done.? A total of 2500 shocks to a maximum of power of 18 with a maximum rate of 120 hertz.? Some fragmentation of the stone was appreciated. The patient tolerated the procedure well and was transferred to the recovery area upon completion. Complications: None
[2023-04-04 09:25] VITALS: BP 139/96; PULSE 107; RESP 16; TEMP 36.1; O2SAT 94
[2023-04-04 09:40] VITALS: BP 164/88; PULSE 87; RESP 18; O2SAT 98
--- NOTE | 2023-04-04 11:18 | HO.POSTANES ---
Post Anesthesia Evaluation Post Anesthesia Evaluation Date of Service: 04/04/23 Vital Signs: Vital Signs Temp Pulse Resp BP Pulse Ox O2 Del Method 04/04/23 09:40 87 18 164/88 H 98 Room Air 04/04/23 09:25 97 F 107 H 16 139/96 H 94 Room Air 04/04/23 07:32 97.4 F 103 H 16 148/100 H 97 Room Air Anesthesia: General LMA Mental Status: Awake Pain Control: Satisfactory Nausea/Vomiting: None Hydration: Adequate Anesthesia-Related Issues: No Anes. Related Issues
== END 2023-04-04 10:58 | disposition home or self-care (01) ==
PROVIDERS: PCP Internal Medicine; Visit Provider Urology
PROC: (CPT 50590; principal; 2023-04-04 08:40)
DX: N20.0 Calculus of kidney (principal); Z87.442 Personal history of urinary calculi; I10 Essential (primary) hypertension; E78.00 Pure hypercholesterolemia, unspecified
CPT/HCPCS: 50590; 74018; J0131; J0690; J1940; J2250; J2405; J2704; J3010

== ENCOUNTER → 2023-04-04 06:57 | Outpatient (BNV) | payer OTHER, SELFPAY | PROVIDERS: PCP Internal Medicine; Visit Provider Urology | DX: N20.0 Calculus of kidney (principal) | CPT/HCPCS: 50590 ==

== ENCOUNTER 2023-04-25 08:51 | Outpatient (AMB) | payer OTHER, SELFPAY ==
[2023-04-25 08:55] VITALS: BP 148/82; PULSE 94; O2SAT 98; BMI 36.0
--- NOTE | 2023-04-25 08:55 | A.OFFPC_ITS ---
Vital Signs 04/25/23 08:55 Height 5 ft 6 in Weight 223 lb BMI 36.0 BP 148/82 H Blood Pressure Location Lt brachial Position Sitting Pulse 94 Pulse Source Pulse Oximeter Pulse Oximetry (%) 98 Oxygen Delivery Method Room Air Intake Visit Reasons: 3 month f/u Allergies pineapple [PINEAPPLE] Allergy (Severe, Verified 04/25/23 08:55) ANAPHYLAXIS adhesive tape Allergy (Intermediate, Verified 04/25/23 08:55) Blister Iodinated Contrast Media [IV Dye, Iodine Containing] Allergy (Intermediate, Verified 04/25/23 08:55) SOB,RASH levofloxacin [From Levaquin] Allergy (Intermediate, Verified 04/25/23 08:55) swelling/rash oxycodone [From Percocet] Allergy (Intermediate, Verified 04/25/23 08:55) rash/SOB aspirin [ASA] Adverse Reaction (Mild, Verified 04/25/23 08:55) UPSET STOMACH Tobacco use date assessed: 04/25/23 Dental Screening Dental Screen Date: 04/25/23 Did you have a dental visit in the last 12 months?: Yes Did you have a dental problem in the last 6 months where you did not have access to dental care?: No Was dental information given to patient?: Patient has dentist HPI 3 month f/u HPI Details 52-year-old obese female with postsurgic al hypothyroidism hypercholesterolemia hypertension GERD asthma coming in for follow-up last seen in December 2022. Up-to-date with colonoscopy mammogram is due review of the notes patient had an MR of the abdomen without contrast March 2023 no mass lesions pancreas is unremarkable without obvious acute pancreatitis or pseudocyst MRCP is within normal limits in March also had left ESWL for left renal stone by Dr.Archer plaza. Patient also had a follow-up with surgeon regarding the lump in the left breast in which an ultrasound and mammogram was requested negative results as for the postsurgical hypothyroidism patient follows up with endocrinology plan of changing generic levothyroxine to the branded Tirosint 200 mcg which may be better absorbed. [facility] Medical History Dysphagia Diarrhea Well woman exam Abnormal finding on EKG Hx of flexible sigmoidoscopy Internal derangement of right shoulder Lump of left breast Lump of right breast Lump of axillary tail of right breast Chronic constipation Rotator cuff impingement syndrome of left shoulder Right forearm pain Colitis Hypertensive urgency Rotator cuff impingement syndrome Lateral epicondylitis of both elbows Fall IBS (irritable bowel syndrome) Abdominal bloating Tendinopathy of left rotator cuff History of TIA (transient ischemic attack) Hypercholesterolemia Vitamin D deficiency Multinodular thyroid Pancreatic cyst Constipation Thyroid nodule Diarrhea Rectal bleeding Esophageal spasm GERD (gastroesophageal reflux disease) Hypertension Asthma Kidney stones History of migraine headaches Fibromyalgia Allergic rhinitis Sciatic nerve pain Ovarian cyst Hypothyroidism Surgical History History of arthroscopic surgery of shoulder Hx of eye surgery History of breast lump/mass excision Hx of hemorrhoidectomy Hx of tubal ligation History of esophagogastroduodenoscopy (EGD) History of colonoscopy (~11/16/19) H/O: hysterectomy History of thyroidectomy (~11/2018) History of kidney surgery Hx of bilateral breast reduction surgery Hx of appendectomy History of cholecystectomy (~2003) H/O lithotripsy Family History Father Family history of high blood pressure History of high cholesterol Mother History of diabetes mellitus Family history of high blood pressure Family history of asthma History of fibromyalgia Liver disease Maternal Grandfather Colon cancer Family/Other Breast cancer Social History Household Members: Spouse Household Members Other:: daughter Housing: Apartment Are you a primary health care assistant to a significant other at home: No Do you presently have visiting nurse or other home services: No Alcohol intake: current Alcohol intake frequency: does not drink Patient Tobacco Use Status: Former Tobacco user Quit Date: 2013 Tobacco use type: Cigarette Years Smoked: 15 e-Cigarette/Vaping Use: Never Used Second Hand Smoke Exposure: No Substance Use Type: Marijuana service: No Current occupational status: disabled Current occupation: right handed Sexual orientation: Straight/Heterosexual Gender identity: Female Cognitive needs: No Hearing needs: No Vision needs: Yes Female Reproductive History Menstrual Age of Menarche: 10 Questionnaire PHQ-9 Over the last 2 weeks, how often have you been bothered by any of the following problems? 1. Little interest or pleasure in doing things: nearly every day 2. Feeling down, depressed, or hopeless: nearly every day 3. Trouble falling or staying asleep, or sleeping too much: nearly every day 4. Feeling tired or having little energy: nearly every day 5. Poor appetite or overeating: not at all 6. Feeling bad about yourself - or that you are a failure or have let yourself or your family down: nearly every day 7. Trouble concentrating on things, such as reading the newspaper or watching television: nearly every day 8. Moving or speaking so slowly that other people could have noticed. Or the opposite - being so fidgety or restless that you have been moving around a lot more than usual: not at all 9. Thoughts that you would be better off or of hurting yourself in some way: not at all Total score: 18 Depression Screening Interpretation: Positive Depression Screening Follow-up: Community Mental Health Worker F/U Depression Screening Done: Yes Source: Developed by Drs. Rainer Caldwell, Ashanti Malone, Hank Dewitt and colleagues, with an educational mayco from [employer]. Thrive Questionnaire Date Thrive assessed: 04/25/23 I am a: Patient What is your living situation today?: I have a steady place to live Within the past 12 months, did the food you bought not last and you didn't have the money to get more?: Never true Within the past 12 months, did you worry whether your food would run out before you got money to buy more?: Never true Do you have trouble paying for medicines?: No Do you have trouble getting transportation to medical appointments?: No Do you have trouble paying your heating and electricity bill?: No Do you have trouble taking care of your child, family member or friend?: No Do you have trouble with day-to-day activities such as bathing, preparing meals, shopping, managing finances, etc.?: No Are you currently unemployed and looking for a job?: No Are you interested in more education?: No Currently or been in a relationship where the following occur: no concerns reported THRIVE Score: 0 AUDIT C Alcohol Use Questionnaire (AUDIT-C) 1. How often do you have a drink containing alcohol?: Never Total Score: 0 Score Reviewed/Action Taken: No INDRA-7 AMB Questionnaire INDRA-7 Date INDRA - 7 assessed: 04/25/23 Feeling nervous, anxious, or on edge: 0 = Not at all Not being able to stop or control worryin = Not at all Worrying too much about different things: 0 = Not at all Trouble relaxin = Not at all Being so restless that it is hard to sit still: 0 = Not at all Becoming easily annoyed or irritable: 0 = Not at all Feeling afraid as if something awful might happen: 0 = Not at all Total INDRA-7 score (0-4 normal; 5-9 mild; 10-14 moderate; 15-21 severe): 0 Source: Developed by Drs. Rainer Caldwell, Ashanti Malone, Hank Dewitt and colleagues, with an educational mayco from [employer]. Physical exam (Primary Care) Vital Signs: Last Vital Signs Pulse 94 04/25/23 08:55 BP 148/82 H 04/25/23 08:55 Pulse Ox 98 04/25/23 08:55 Oxygen Delivery Method Room Air 04/25/23 08:55 BMI result Body Mass Index 36.0 Tobacco/Smoking Status: Tobacco use Status Tobacco use date assessed 04/25/23 04/25/23 09:01 Patient Tobacco Use Status Former Tobacco user 04/25/23 09:01 Tobacco use type Cigarette 04/25/23 09:01 e-Cigarette/Vaping Use Never Used 04/25/23 09:01 PHQ-9: PHQ-9 Score PHQ-9: Total score 18 04/25/23 09:01 Depression Screening Interpretation: Positive Depression Screening Follow-up: Community Mental Health Worker F/U Thrive Assessment: Date of Thrive Assessment Date Thrive assessed 04/25/23 04/25/23 09:01 Currently or been in a relationship where the following occur: no concerns reported Const General: alert; No acute distress Eyes Conjunctivae: conjunctivae normal Resp Auscultation: clear to auscultation bilaterally Cardio Rate: regular rate Rhythm: regular rhythm GI Inspection: Yes normal to inspection Extrem General: Yes normal to inspection and No edema Assessment and Plan Assessment & Plan (1) Bilateral renal stones: Code(s): N20.0 - Calculus of kidney Plan: Left ESWL March 2023 (2) Abdominal pain: Code(s): R10.9 - Unspecified abdominal pain Plan: MRI done revealing negative results (3) Obesity: Code(s): E66.9 - Obesity, unspecified Plan: Diet and exercise (4) GERD (gastroesophageal reflux disease): Code(s): K21.9 - Gastro-esophageal reflux disease without esophagitis Plan: Avoid the foods that causes that usually spicy foods, tomato products, juices, coffee, soda and foods that your sensitive to. After eating do not lie down, allow 3-4 hours before in lie down. And keep the head of bed above 30 degrees to avoid the acid from going up. (5) Post-surgical hypothyroidism: Code(s): E89.0 - Postprocedural hypothyroidism Plan: Patient follows up with endocrinology and has been placed on the branded Tirosint 200 mcg once a day (6) Hypertension: Code(s): I10 - Essential (primary) hypertension Qualifiers: Hypertension type: essential hypertension Qualified Code(s): I10 - Essential (primary) hypertension Plan: Continue with blood pressure medication. Decrease salt intake and exercise on amlodipine 10 mg once a day lisinopril 10 mg once a day metoprolol tartrate (7) Asthma: Code(s): J45.909 - Unspecified asthma, uncomplicated Qualifiers: Asthma severity: severe Asthma persistence: persistent Asthma complication type: unspecified Qualified Code(s): J45.50 - Severe persistent asthma, uncomplicated Plan: Continue with the inhalers follows up with Pulmonary Medications: Changed From metoprolol tartrate Take 2 tablets in the morning and 1 tablet at night PO; 90 days 270 tabs 1RF I10 - Essential (primary) hypertension To metoprolol tartrate 100 mg PO BID 180 tabs 1RF 90 days I10 - Essential (primary) hypertension Coding Level of Care Code Est Pt Level 4 (62873) Diagnoses Bilateral renal stones N20.0 Abdominal pain R10.9 Obesity E66.9 GERD (gastroesophageal reflux disease) K21.9 Post-surgical hypothyroidism E89.0 Essential hypertension I10 Hypertension type: essential hypertension Severe persistent asthma, unspecified whether complicated J45.50 Asthma severity: severe Asthma persistence: persistent Asthma complication type: unspecified Additional Codes PHQ-9 - 68560 - PHQ-9 Billing: ([id number])
== END 2023-04-25 09:30 | disposition home or self-care (01) ==
PROVIDERS: PCP Internal Medicine; Visit Provider Internal Medicine
DX: N20.0 Calculus of kidney (principal); J45.50 Severe persistent asthma, uncomplicated; E66.9 Obesity, unspecified; Z68.36 Body mass index [BMI] 36.0-36.9, adult; R10.9 Unspecified abdominal pain; K21.9 Gastro-esophageal reflux disease without esophagitis; E89.0 Postprocedural hypothyroidism; I10 Essential (primary) hypertension
CPT/HCPCS: 99214

== ENCOUNTER 2023-05-03 10:51 | Outpatient (AMB) | payer OTHER, SELFPAY ==
--- NOTE | 2023-05-03 11:05 | MHC.OFFVIS ---
Intake Vital Signs 05/03/23 11:06 Height 5 ft 6 in Weight 218 lb BMI 35.2 BP 141/104 H Blood Pressure Location Lt brachial Position Sitting Pulse 105 H Intake Visit Reasons: 6 week follow up Abdominal pain Intake Note: Patient follow up for Abdominal pain and lab results. Patient cc: N/V, abdominal pain with bloating, acid reflex with burning sensation, between constipation and diarrhea, and some swallowing problems. 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 Required: No Accompanied by: Self / Same As Patient Allergies pineapple [PINEAPPLE] Allergy (Severe, Verified 05/31/23 08:12) ANAPHYLAXIS adhesive tape Allergy (Intermediate, Verified 05/31/23 08:12) Blister Iodinated Contrast Media [IV Dye, Iodine Containing] Allergy (Intermediate, Verified 05/31/23 08:12) SOB,RASH levofloxacin [From Levaquin] Allergy (Intermediate, Verified 05/31/23 08:12) swelling/rash oxycodone [From Percocet] Allergy (Intermediate, Verified 05/31/23 08:12) rash/SOB aspirin [ASA] Adverse Reaction (Mild, Verified 05/31/23 08:12) UPSET STOMACH HPI 6 week follow up Abdominal pain HPI Details GI Clinic visit for this 52-year-old female for evaluation of diarrhea and abdominal bloating Pt had severe watery diarrhea which lasted for several weeks after her thyroid surgery. Pt was seen at [facility] on 12/18/22 with worsening abd pain and labs showed an elevated lipase of 118 LABS IN [facility]: 11/15 REVIEWED. ? Stool studies were negative for C Diff, calprotectin was normal and stool fat was elevated ? Stool electrolytes could not be performed since stool was formed ? Serum gastrin was elevated and normal on repeat testing after holding Omeprazole. ?IMAGING STUDIES: 03/16/22 BARIUM SWALLOW SHOWED: -Spontaneous gastroesophageal reflux to the level mid thoracicesophagus. -Bridging anterior osteophytes mid to lower cervical spine. Swellingfunction unremarkable. -No stricture, ulceration, or hiatal hernia. 01/[address] SCAN SHOWED:? 2 mm small radiopaque calculi nonobstructive lower pole right kidney? and mid pole left kidney. There are extrarenal kidney pelvises seen.? Mild constipation without obstruction. No evidence of panniculitis or diverticulitis. Small hiatal hernia.? Fatty lesion anterior body/tail of pancreas junction is stable. 02/15/2018:? ABD MRI SHOWED:Status post cholecystectomy.? No MRI evidence of intra or extrahepatic biliary obstruction, filling defects or stones.Pancreatic metrics incised are normal, no pancreatic mass found ENDOSCOPIC STUDIES: 12/22/22 EGD SHOWED:Endoscopy Findings: LARYNX: Changes suggestive of LPRD ESOPHAGUS: Hiatal hernia STOMACH: Diffuse gastritis DUODENUM: Two 2-3 mm superficial ulcers in the bulb and normal descending duodenum. Plan: Above findings were reviewed with the patient and Hiatal Hernia and PUD handouts were given in the discharge area. BIOPSIES SHOWED: A. Small bowel, biopsy: Small bowel mucosa within normal limits; preserved villous architecture and no increased intraepithelial lymphocytes seen. B. Stomach, antrum, biopsy: Gastric antral mucosa with mild reactive gastropathy; negative for Helicobacter pylori, intestinal metaplasia and dysplasia. C. Duodenum, ulcer, biopsy: Superficial fragments of duodenal mucosa within normal limits; preserved villous architecture and no increased intraepithelial lymphocytes seen. D. Stomach, body, biopsy: Gastric body mucosa within normal limits; negative for Helicobacter pylori, intestinal metaplasia and dysplasia. E. Esophagus, distal, biopsy: Squamous mucosa within normal limits; negative for inflammation (including intraepithelial eosinophils), fungal organisms, intestinal metaplasia and dysplasia 03/13/22 COLONOSCOPY SHOWED:Two small adenomatous polyps removed Moderate diverticulosis seen in the []colon Moderate hemorrhoids on retroflexed exam. Plan:? Repeat Colonoscopy in 5 yrs. 11/18/19 COLONOSCOPY SHOWED:? No polyps were detected? Random bx obtained from the colon? Moderate diverticulosis seen in the sigmoid colon? Moderate hemorrhoids on retroflexed exam. ? Plan: Patient has an appointment on 12/05/19 in the GI Clinic with Sky Horton M.D.-. ? Repeat Colonoscopy interval based on path results in 5 years if colon bxs are normal. ? BIOPSIES SHOWED: ? A. Colon, random, biopsy: Colonic mucosa within normal limits; negative for active, chronic or microscopic colitis. ? B. Rectum, biopsy: Colonic mucosa within normal limits; negative for active, chronic or microscopic colitis. ?09/2017 COLONOSCOPY SHOWED: ? Two adenomatous and one hyperplastic polyps removed ? Patchy erythmea in the descending colon - likely resolving infectious or ? ischemic colitis - possible source of rectal bleeding. ? Random biopsies obtained from the right and left colon which were normal. ? Mild diverticulosis seen in the sigmoid colon ? Small hemorrhoids on retroflexed exam. ? Plan: ? Patient has an appointment on 10/23/17 in the GI Clinic with Sky Horton M.D. ? Repeat Colonoscopy in 5 years if polyps are adenomatous ?02/04/19 EGD SHOWED: ? Esophagus: GE junction at 32 cms, small hiatal hernia 32 to 35 cms. A 1 cms focal ulcer at GE junction - likely healing MW tear or esophagitis due to GERD. ? Stomach: Moderate erythema with healing erosions in the gastric body and hemorrhagic erosions in the antrum. Biopsies were obtained. Grade 3 flap valve on retroflexed examination of the cardia. ? Duodenum: Normal bulb and descending duodenum. Biopsies obtained from 3rd part of duodenum to check for celiac sprue. BIOPSIES SHOWED: A. Small bowel, biopsy: Small bowel mucosa within normal limits; preserved villous architecture and no increase in intraepithelial lymphocytes. B. Stomach, antrum, biopsy: Gastric antral mucosa with mild chronic inactive gastritis; negative for Helicobacter pylori, intestinal metaplasia and dysplasia. C. Stomach, body, biopsy: Gastric body mucosa with mild chronic inactive gastritis; negative for Helicobacter pylori, intestinal metaplasia and dysplasia. D. Esophagus, proximal, biopsy: Squamous mucosa within normal limits; negative for inflammation, fungal organisms, intestinal metaplasia and dysplasia. TODAY'S VISIT: Patient cc: N/V, abdominal pain with bloating, acid reflex with burning sensation, between constipation and diarrhea, and some swallowing problems. Lab and MRI results reviewed. Vaguely recall being treated with steroids in the past (? 2006). Complains of nausea and postprandial vomiting. Has been loosing weight. Unable to go to gatherings since she always has pain. She states she now has a hernia and ulcers. She is unable to eat or drink because it feels like a lot of acid. She is having nausea as we speak and she is also dealing with her thyroid issues as well. PAST VISITS: Patient cc: abdominal pain with bloating, GERD, dysphagia and constipation. Just found out she has kidney stones in both kidneys Pt went for an open MRI and unable to have it done due to anxiety attack. She would like an antianxiety medication before the MRI I cant live with this pain any more Abd pain is getting worse. Pain gets worse when she eats or drinks anything. Pain is burning and associated with bloating and distension. Eating better. Eating fruits after freezing them a little bit. Getting excruciating HAs when she gets heartbutn. Taking Omeprazole twice a day. Has been having diarrhea for the past month and no constipation. Goes to [facility] and has a BM. Having 4 BMs a day with incomplete evacuation. BMs vary between watery and pudding like stools, very stinky, sometimes black and sometimes sarah color and like sand Not eating a lot and has lost 6 lbs over the past month. Notes worsening burning upper abdominal pain radiating to the back with nausea and vomiting. Feels weak and tired. Only able to drink soups. Worsening pain, bloating and distension when she tries to eat and drink. No BM since 12/15/22 - had a small BM. Attributes to not eating and getting morphine in the ED on 12/18/22. Denies fever, chills and notes sweating. Taking Pantoprazole twice a day which is not helping. EGD and bx results were reviewed with the patient Scheduled for an open MRI at [facility] during the last week of December TSH was elevated and waiting for an appt to see Endocrinology Gloria presents in the office as a follow up patient for abdominal pains. CC: She is having issues - she states she has issues with her thyroid. She is having issues with taking that medication and was told to take it with the stomach medications. 2 months ago she stopped taking her Pantoprazole and now she is unable to drink or eat anything. She is having severe pains in her stomach and severe acid reflux. She is scared because her hair has been falling out as well. Continues to have abdominal pain and bloating. Has a lot of abdominal pain. She was advised to take no medication for 2-3 hours after she takes her Levothyroxine and to take Pantoprazole later - and takes it at 2 pm. Complains of nausea and vomiting Has diarrhea with 4-5 watery stools per day - sometimes stool is like powder. Denies recent constipation. Had recurrent vomiting yesterday - containing white foamy saliva Notes increased burping, bloating and left sided abdominal pain. Seen by her pre parole counseling aide and advised she has fluid in her lungs When she goes to the bathroom to pee, she has the urge to defecate with passage of small dark stool. Still taking Omeprazole - Pantoprazole not available at the pharmacy yet - refill sent. Entire body hurts due to fibromyalgia. Started on a new medication for fibromyalgia [facility] Medical History (Updated 05/31/23 @ 09:43 by Blanca Lujan MD) Dysphagia Diarrhea Well woman exam Abnormal finding on EKG Hx of flexible sigmoidoscopy Internal derangement of right shoulder Lump of left breast Lump of right breast Lump of axillary tail of right breast Chronic constipation Rotator cuff impingement syndrome of left shoulder Right forearm pain Colitis Hypertensive urgency Rotator cuff impingement syndrome Lateral epicondylitis of both elbows Fall IBS (irritable bowel syndrome) Abdominal bloating Tendinopathy of left rotator cuff History of TIA (transient ischemic attack) Hypercholesterolemia Vitamin D deficiency Multinodular thyroid Pancreatic cyst Constipation Thyroid nodule Diarrhea Rectal bleeding Esophageal spasm GERD (gastroesophageal reflux disease) Hypertension Asthma Kidney stones History of migraine headaches Fibromyalgia Allergic rhinitis Sciatic nerve pain Ovarian cyst Hypothyroidism Surgical History History of arthroscopic surgery of shoulder Hx of eye surgery History of breast lump/mass excision Hx of hemorrhoidectomy Hx of tubal ligation History of esophagogastroduodenoscopy (EGD) History of colonoscopy (~11/16/19) H/O: hysterectomy History of thyroidectomy (~11/2018) History of kidney surgery Hx of bilateral breast reduction surgery Hx of appendectomy History of cholecystectomy (~2003) H/O lithotripsy Family History Father Family history of high blood pressure History of high cholesterol Mother History of diabetes mellitus Family history of high blood pressure Family history of asthma History of fibromyalgia Liver disease Maternal Grandfather Colon cancer Family/Other Breast cancer Social History Household Members: Spouse Household Members Other:: daughter Housing: Apartment Are you a primary care companion to a significant other at home: No Do you presently have visiting nurse or other home services: No Alcohol intake: never Patient Tobacco Use Status: Former Tobacco user Quit Date: 2013 Tobacco use type: Cigarette Years Smoked: 15 e-Cigarette/Vaping Use: Never Used Second Hand Smoke Exposure: No Substance Use Type: Marijuana service: No Current occupational status: disabled Current occupation: right handed Sexual orientation: Straight/Heterosexual Gender identity: Female Cognitive needs: No Hearing needs: No Vision needs: Yes Female Reproductive History Menstrual Age of Menarche: 10 Review of Systems Const All systems reviewed & are unremarkable except as noted in HPI and below Physical Exam Vital Signs: Last Vital Signs Pulse 105 H 05/03/23 11:06 BP 141/104 H 05/03/23 11:06 BMI result Body Mass Index 35.2 Const General: no acute distress Nutritional Appearance: obese Orientation/consciousness: patient oriented x3 Limitations: no limitations HEENT Head: Yes normal to inspection Ears: hearing grossly normal bilaterally Eyes Sclerae: sclerae normal Pupils: Equal, round and reactive pupils present Neck Neck: Yes normal visual inspection Chest Chest palpation & inspection: normal inspection of the chest Resp Effort & Inspection: normal respiratory effort Auscultation: clear to auscultation bilaterally Cardio Palpation: normal PMI Rate: regular rate Rhythm: regular rhythm Heart sounds: S1 normal heart sound present, S2 normal heart sound present and no murmurs GI Palpation (GI): Soft to palpation, nontender and No hepatosplenomegaly present Auscultation: normal bowel sounds Rectal Exam - Female: deferred Skin General skin exam: no rashes or lesions noted Neuro General: patient oriented x3, gait normal and moves all extremities Cranial nerves: Yes Equal, round and reactive pupils present Psych Appearance: grossly normal Mental Status: mental status grossly normal Assessment & Plan Assessment & Plan (1) 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 Abdominal pain is likely due to IBS with constipation and diarrhea. Patient notes partial improvement in symptoms with senna, she has not used a suppository or enema in the past.? She tried dicyclomine in the past and was not helpful for abdominal pain. Patient had a colonoscopy on 11/18/19? for evaluation of rectal bleeding which revealed diverticulosis and no polyps.? Random biopsies obtained from the colon were negative for inflammation. 08/2020 Anorectal manometry with balloon expulsion testing at [facility] [place] showed: IMPRESSIONS: Borderline anal hypertension and borderline anal hypocontractility (overall anal sphincter strength lower than average for gender) Abnormal balloon expulsion with normal manometric pattern of rectoanal coordination normal rectal propulsive force and normal anal relaxation with push) This is considered an inconclusive finding that can also be seen in normal controls according to the Wu classification. Mild rectal hypersensitivity suggestive of chronic constipation She complains of constipation x 2-3 days followed by soft/watery stools lasting for half a day. ?Patient was advised to take Miralax every other day for constipation and take Rifaximin x 14 days for suspected SIBO. Takes Miralax intermittently Pt was advised to go on a clear liquid diet and take Mag Citrate to clean out her colon. Then start taking Linzess for constipation. 01/30/22 - pt was advised stool studies, start a probiotic and increase sucralfate to 3-4 times daily 03/16/22 Pt was switched from Omeprazole to Pantoprazole 40 mg twice daily and started on Amitriptyline 25 mg at bedtime. 04/28/22 Amitriptyline dose was increased to 50 mg at bedtime Pt's wt gain is likely related to elevated TSH levels - repeat TSH planned in [address] Humphrey 11/30/22 Pt complains of left sided abd pain, bloating and worsening GERD symptoms after she was advised to take the Pantoprazole later in the day and stop sucralfate due to suspected drug interaction with Levothyroxine. Pt was advised to increase pantoprazole to 40 mg twice daily and amitriptyline to 75 mg at bedtime She will be scheduled for an EGD (last EGD in 2019 showed a small hiatal hernia and gastritis - no HP on bx) - scheduled on 12/22/22. 12/21/22 Pt seen with worsening upper abdominal pain, nausea, vomiting and unable to tolerate PO food. Pt had an elevated lipase on 12/18/22 Pt advised to return to the ED for repeat labs, lipase and a CT scan with IV contrast. She will need to be admitted if lipase remains elevated for bowel rest and IVF Repeat lipase was normal. ABD CT SCAN SHOWED: PANCREAS: Edematous appearing pancreas with peripancreatic stranding. This appears more pronounced than the 08/08/2020 examination. No peripancreatic fluid collections. No dilatation of the main pancreatic duct. CT findings were reviewed with the patient. 12/22/22 EGD was performed in findings as noted above. Order placed for MRCP for FU of pancreatitis Of note pt is status post lap macy and had a normal triglyceride level a few months ago. Pt advised to schedule an appt with Endocrinology 05/03/23 Lab and MRI results reviewed. Vaguely recall being treated with steroids in the past (? 2006). Complains of nausea and postprandial vomiting. Has been loosing weight. IgG4 level was elevated at 166.8 Additional lab, urine and stool test were ordered and not done yet - pt advised to complete FU appt in 6 weeks ADDENDUM: 05/17/23 Pt called an lab results reviewed: Having watery stools for the past two weeks with bowel accidents Notes post prandial diarrhea which is very smelly. Stool appears greasy and sometime pale with white dots. No one is sick at home. Having 1 meal a day (rice, beans, chicken, eggs and toast) and keeps loosing weight. Started on antibiotics for suspected SIBO and has been taking it without improvement in symptoms. Pt with long hx of Abd pain, diarrhea alternating with constipation initially diagnosed with IBS Enlarged pancreas on past CT and MRI showed a normal pancreas Elevated Ig G4 levels without other clinical signs of Ig G4 related disease Pt requesting a 2nd opinion and referred to Dr Alegre (regarding possible treatment for ? 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
[2023-05-03 11:06] VITALS: BP 141/104; PULSE 105; BMI 35.2
== END 2023-05-03 12:57 | disposition home or self-care (01) ==
PROVIDERS: PCP Internal Medicine; Visit Provider Internal Medicine Gastroenterology
DX: R76.8 Other specified abnormal immunological findings in serum (principal)
CPT/HCPCS: 99214

== ENCOUNTER → 2023-05-03 10:51 | Outpatient (BNVA) | payer OTHER, SELFPAY | PROVIDERS: PCP Internal Medicine; Visit Provider Internal Medicine Gastroenterology | DX: R76.8 Other specified abnormal immunological findings in serum (principal) | CPT/HCPCS: 99212 ==

== ENCOUNTER 2023-05-08 11:07 | Outpatient (REF) | payer OTHER, SELFPAY ==
[2023-05-08 13:05] LABS: Estimated Average Glucose 105 mg/dL; Hemoglobin A1c % 5.3 % (<6.0)
[2023-05-08 13:09] LABS: Appearance Urine Cloudy; Color Urine Dark Yellow; Glucose Urine UA Negative (Negative); Leukocyte Esterase Urine Negative (Negative); Nitrite Urine Negative (Negative); PH 5.5 (5.0-9.0); Specific Gravity - Urine 1.025 (1.005-1.025); Urine Blood Negative (Negative); Urine Ketones 15 mg/dL (Negative); Urine Protein Trace mg/dL (Neg-Trace)
[2023-05-08 13:12] LABS: Bacteria Urine Trace (None Seen); Hyaline Casts Urine 0-2 /LPF (0-2); RBC Urine 0-2 /HPF (0-2); WBC Urine 0-5 /HPF (0-5)
[2023-05-08 13:13] LABS: Amylase 73 U/L (28-100)
[2023-05-09 20:57] LABS: Complement C3 194 mg/dL (83-193)
[2023-05-10 21:43] LABS: Prot Elec - Alpha1 0.4 g/dL (0.2-0.3); Prot Elec - Beta 1 0.5 g/dL (0.4-0.6); Prot Elec - Beta 2 0.7 g/dL (0.2-0.5); Prot Elec - Gamma 1.2 g/dL (0.8-1.7); Prot Elec - Total Protein 7.7 g/dL (6.1-8.1)
[2023-05-11 08:59] LABS: Carbohydrate Antigen 19-9 21 U/mL (<34)
[2023-05-16 18:14] LABS: IgE Antibody (Anti-IgE IgG) 4860 ng/mL (<168)
[2023-05-16 19:48] LABS: Pancreatic Elastase-1 393 mcg/g
== END 2023-05-08 11:08 | disposition home or self-care (01) ==
LOC: HO.LAB 11:07
PROVIDERS: Absent Provider Internal Medicine Endocrinology, Diabetes & Metabolism; PCP Internal Medicine; Visit Provider Internal Medicine Gastroenterology
DX: R76.8 Other specified abnormal immunological findings in serum (principal)
CPT/HCPCS: 36415; 81001; 82150; 82378; 82656; 83036; 83520; 84165; 86160; 86301

== ENCOUNTER 2023-05-10 01:41 | Emergency (ER) | payer OTHER, SELFPAY ==
--- NOTE | 2023-05-10 | ECG_ITS ---
Test Reason : ABD PAIN Blood Pressure : / mmHG Vent. Rate : 084 BPM Atrial Rate : 084 BPM P-R Int : 164 ms QRS Dur : 080 ms QT Int : 380 ms P-R-T Axes : 018 -14 028 degrees QTc Int : 449 ms Normal sinus rhythm Inferior infarct (cited on or before 22-MAY-2022) Abnormal ECG When compared with ECG of 22-MAY-2022 18:40, No significant change was found Referred By: Generic ED Physician Electronically Signed By:KAYLIN MCKEON MD
--- NOTE | ~2023-05-10 | CT_ITS ---
EXAMINATION: CT ABDOMEN AND PELVIS WITHOUT CONTRAST CLINICAL INFORMATION: Abdominal pain and distention. COMPARISON: None available. TECHNIQUE: Multidetector volumetric imaging was performed from the superior aspect of the liver through the pubic symphysis. Sagittal and coronal reformatted images were obtained on the technologist's workstation. This CT examination was performed using dose optimization techniques as appropriate, variously including the following: *Automated exposure control *Adjustment of mA and/or kV according to patient size (this includes techniques or standardized protocols for targeted exams where dose is matched to indication/reason for exam; i.e. extremities or head) *Use of iterative reconstruction technique DLP: 862 mGy-cm FINDINGS: LUNG BASES: The visualized lung bases are unremarkable. LIVER, GALLBLADDER, AND BILIARY TREE: The liver is normal in size, shape, and attenuation. No focal hepatic lesion or biliary ductal dilatation is present. There has been a prior cholecystectomy. PANCREAS: Unremarkable. SPLEEN: Unremarkable. ADRENAL GLANDS: Unremarkable. KIDNEYS AND URETERS: The kidneys are normal in size, shape, and attenuation. There are scattered bilateral renal calculi measuring up to 5 mm lower pole right kidney. There is no hydronephrosis. BLADDER: Unremarkable. GASTROINTESTINAL TRACT: There is a small hiatal hernia. The large and small bowel are within normal limits. The appendix is not seen. ABDOMINAL WALL: No significant hernia is appreciated. LYMPH NODES: Normal. VASCULAR: Unremarkable. PELVIC VISCERA: Unremarkable. OSSEOUS STRUCTURES: There is diffuse thoracolumbar disc degenerative change with prominent posterior osteophytes of the lower thoracic spine with spinal canal narrowing at multiple levels.. CT/CT abdomen pelvis wo IV con IMPRESSION: 1. No acute intra-abdominal abnormality. 2. Bilateral nonobstructing renal calculi. 3. Diffuse thoracolumbar disc degenerative change with prominent posterior osteophytes of the lower thoracic spine with spinal canal narrowing at multiple levels. Fleischner guidelines were followed.
[2023-05-10 01:54] VITALS: BP 137/90; PULSE 95; RESP 17; TEMP 36.7; O2SAT 99; BMI 33.7
[2023-05-10 02:22] LABS: MANUAL DIFF FLAG NO
[2023-05-10 02:23] LABS: Basophils Percent Auto 0.3 % (0-2); Eosinophils Absolute Auto 0.2 X10*3/uL (0.0-0.4); Eosinophils Percent Auto 1.6 % (0-4); Hematocrit 40.9 % (37.0-47.0); Hemoglobin 14.1 g/dl (12.0-16.0); Imm Gran Abs Auto 0.04 X10*3/uL (0.00-0.03); Imm Gran Pct Auto 0.4 % (0.0-0.4); Lymphocytes Absolute Auto 2.6 X10*3/uL (1.2-4.9); Lymphocytes Percent Auto 27.2 % (20-40); Mean Corpuscular HGB Conc 34.5 g/dl (31.0-35.0); Mean Corpuscular Hemoglobin 30.6 pg (27.0-33.0); Mean Corpuscular Volume 88.7 fL (80.0-98.0); Monocytes Absolute Auto 0.8 X10*3/uL (0.1-1.2); Monocytes Percent Auto 8.4 % (2-11); Neutrophils Absolute Auto 5.9 x10*3/uL (2.0-8.3); Neutrophils Percent Auto 62.1 % (45-73); Platelet Count 248 X10*3/uL (160-400); Red Blood Count 4.61 X10*6/uL (4.20-5.50); Red Cell Distribution Width 12.8 % (11.0-16.0); White Blood Count 9.5 X10*3/uL (4.8-10.8)
[2023-05-10 02:39] LABS: Alanine Aminotransferase 36 U/L (0-31); Albumin Level 4.1 g/dL (3.5-5.0); Alkaline Phosphatase 84 U/L (39-117); Anion Gap 14 (12-20); Aspartate Amino Transferase 33 U/L (5-31); Bilirubin Total 0.2 mg/dL (0.0-1.0); Blood Urea Nitrogen 15 mg/dL (9-16); Calcium 9.7 mg/dL (8.4-10.2); Carbon Dioxide 22 mmol/L (22-29); Chloride 109 mmol/L (96-108); Creatinine Clr Calc Pharmacy 121.5; Estimated Glomerular Filt Rate > 60; Glucose Random 96 mg/dL (60-115); Lipase 8 U/L (8-78); Potassium 3.6 mmol/L (3.3-5.1); Sodium 141 mmol/L (135-145); Total Protein 7.6 g/dL (6.5-8.0)
[2023-05-10 02:50] LABS: Troponin-I High Sensitivity < 2.7 ng/L (<3.5-17.0)
[2023-05-10 03:23] VITALS: BP 152/102; PULSE 91; RESP 18; TEMP 36.8; O2SAT 98
[2023-05-10 03:31] LABS: Appearance Urine Cloudy; Color Urine Dark Yellow; Glucose Urine UA Negative (Negative); Leukocyte Esterase Urine Negative (Negative); Nitrite Urine Negative (Negative); PH 5.5 (5.0-9.0); Specific Gravity - Urine 1.025 (1.005-1.025); UMIC TRIGGER UACC YES; Urine Blood Trace (Negative); Urine Ketones Trace mg/dL (Negative); Urine Protein Negative (Neg-Trace)
--- NOTE | 2023-05-10 03:31 | MHC.EDTECH ---
Patient changed into hospital attire,ambulated to the bathroom with a steady gait,urine sample collected and sent to lab.Hourly rounds and vitals completed. Call tyler in reach
[2023-05-10 03:44] LABS: Bacteria Urine 1+ (None Seen); Calcium Oxalate Crystals Urine Present; Hyaline Casts Urine 0-2 /LPF (0-2); RBC Urine 0-2 /HPF (0-2); WBC Urine 0-5 /HPF (0-5)
--- NOTE | 2023-05-10 04:09 | ED_ITS ---
HPI - Abdominal Pain General Chief Complaint: Abdominal Pain Stated Complaint: Abd pain Time Seen by Provider: 05/10/23 04:08 Source: patient Mode of arrival: ambulatory Limitations: no limitations History of Present Illness HPI narrative: Patient's history of chronic abdominal pain with IBS and pancreatitis history comes here for 5 hours of diffuse abdominal pain associated with nausea and vomiting patient had a bowel movement in the ER which has been simin like since yesterday. Patient feel abdominal bloated patient been followed by purchasing assistant patient has stool sample tested 2 days ago had history of high fat in the stool before Related Data Home Medications Medication Instructions Recorded Confirmed budesonide-formoterol HFA 160 2 puff inhalation BID 11/30/22 03/26/23 mcg-4.5 mcg/actuation aerosol inhaler (Symbicort) levothyroxine 175 mcg tablet 200 mcg PO DAILY 03/22/23 03/26/23 Previous Rx's Medication Instructions Recorded omalizumab 150 mg/mL subcutaneous 300 mg (2 mL) subcut Q2W #4 mL 03/25/20 syringe (Xolair) Ventolin HFA 90 mcg/actuation 2 puff inhalation Q4-6H PRN 12/29/21 aerosol inhaler (albuterol sulfate) shortness of breath or wheezing 30 days #1 ea fluticasone furoate 200 1 inh inhalation DAILY 30 days #60 03/27/22 mcg-vilanterol 25 mcg/dose ea inhalation powder (Breo Ellipta) umeclidinium 62.5 mcg/actuation 1 inh inhalation DAILY 30 days #30 03/27/22 blister powder for inhalation ea (Incruse Ellipta) cholecalciferol (vitamin D3) 50 50 mcg PO DAILY 30 days #30 caps 05/04/22 mcg (2,000 unit) capsule clotrimazole-betamethasone 1 1 appl topical BID 5 days #45 grams 05/24/22 %-0.05 % topical cream atorvastatin 10 mg tablet (Lipitor) 10 mg PO DAILY #30 tabs 05/31/22 docusate sodium 100 mg capsule 100 mg PO BID #60 caps 06/04/22 polyethylene glycol 3350 17 17 g PO BID 60 days #2,040 grams 08/17/22 gram/dose oral powder (Gavilax) ipratropium 0.5 mg-albuterol 3 mg 3 ml inhalation Q4-6H PRN for 08/18/22 (2.5 mg base)/3 mL nebulization wheezing #180 mL soln diclofenac sodium 75 mg 75 mg PO BID PRN pain #60 tabs 09/28/22 tablet,delayed release clobetasol 0.05 % topical cream 1 appl topical BID 4 weeks #45 10/17/22 grams amitriptyline 25 mg tablet 75 mg (3 x 25 mg) PO BEDTIME 60 11/30/22 days #180 tabs aluminum hydrox-magnesium carb 254 10 ml PO QID PRN dyspepsia #355 mL 12/18/22 mg-237.5 mg/5 mL oral suspension (Gaviscon Extra Strength) lisinopril 10 mg tablet 10 mg PO DAILY #30 tabs 01/05/23 Tirosint 200 mcg capsule 200 mcg PO DAILY #30 caps 02/12/23 (levothyroxine) famotidine 20 mg tablet 20 mg PO BEDTIME PRN for acid 03/22/23 reflux 90 days #90 tabs omeprazole 20 mg capsule,delayed 40 mg (2 x 20 mg) PO DAILY 90 days 03/22/23 release #180 caps lorazepam 1 mg tablet 1 mg PO ONCE PRN anxiety #2 tabs 03/23/23 tramadol 50 mg tablet 50 mg PO Q8H PRN pain #10 tabs 04/04/23 amlodipine 10 mg tablet 10 mg PO DAILY #90 tabs 04/18/23 metoprolol tartrate 100 mg tablet 100 mg PO BID 90 days #180 tabs 04/25/23 Allergies Allergy/AdvReac Type Severity Reaction Status Date / Time pineapple [PINEAPPLE] Allergy Severe ANAPHYLAXIS Verified 05/10/23 01:54 adhesive tape Allergy Intermediate Blister Verified 05/10/23 01:54 Iodinated Contrast Media Allergy Intermediate SOB,RASH Verified 05/10/23 01:54 [IV Dye, Iodine Containing] levofloxacin [From Levaquin] Allergy Intermediate swelling/ra Verified 05/10/23 01:54 sh oxycodone [From Percocet] Allergy Intermediate rash/SOB Verified 05/10/23 01:54 aspirin [ASA] AdvReac Mild UPSET Verified 05/10/23 01:54 STOMACH Review of Systems Review of Systems Yes all other systems are reviewed and are negative PMFSH Past Medical History Medical History Dysphagia Diarrhea Well woman exam Abnormal finding on EKG Hx of flexible sigmoidoscopy Internal derangement of right shoulder Lump of left breast Lump of right breast Lump of axillary tail of right breast Chronic constipation Rotator cuff impingement syndrome of left shoulder Right forearm pain Colitis Hypertensive urgency Rotator cuff impingement syndrome Lateral epicondylitis of both elbows Fall IBS (irritable bowel syndrome) Abdominal bloating Tendinopathy of left rotator cuff History of TIA (transient ischemic attack) Hypercholesterolemia Vitamin D deficiency Multinodular thyroid Pancreatic cyst Constipation Thyroid nodule Diarrhea Rectal bleeding Esophageal spasm GERD (gastroesophageal reflux disease) Hypertension Asthma Kidney stones History of migraine headaches Fibromyalgia Allergic rhinitis Sciatic nerve pain Ovarian cyst Hypothyroidism Surgical History History of arthroscopic surgery of shoulder Hx of eye surgery History of breast lump/mass excision Hx of hemorrhoidectomy Hx of tubal ligation History of esophagogastroduodenoscopy (EGD) History of colonoscopy (~11/16/19) H/O: hysterectomy History of thyroidectomy (~11/2018) History of kidney surgery Hx of bilateral breast reduction surgery Hx of appendectomy History of cholecystectomy (~2003) H/O lithotripsy Family History Family History Father Family history of high blood pressure History of high cholesterol Mother History of diabetes mellitus Family history of high blood pressure Family history of asthma History of fibromyalgia Liver disease Maternal Grandfather Colon cancer Family/Other Breast cancer Social History Social History Household Members: Spouse Household Members Other:: daughter Housing: Apartment Are you a primary childcare provider to a significant other at home: No Do you presently have visiting nurse or other home services: No Alcohol intake: never Patient Tobacco Use Status: Former Tobacco user Quit Date: 2013 Tobacco use type: Cigarette Years Smoked: 15 Smoked in Last 30 Days: No e-Cigarette/Vaping Use: Never Used Second Hand Smoke Exposure: No Use of substances other than those prescribed or required for medical reasons: Yes Substance Use Type: Marijuana Advance Directives: No Advance Directives Information Provided: Yes Patient : No service: No Current occupational status: disabled Current occupation: right handed Sexual orientation: Straight/Heterosexual Gender identity: Female Cognitive needs: No Hearing needs: No Vision needs: Yes Physical Exam ED Vital Signs: Vital Signs - 24 hr 05/10/23 01:54 05/10/23 03:23 05/10/23 05:00 Temperature 98.1 F 98.2 F Pulse Rate 95 91 Respiratory Rate 17 18 18 Blood Pressure 137/90 H 152/102 H Pulse Oximetry 99 98 Oxygen Delivery Method Room Air Room Air 05/10/23 06:08 Temperature 97.8 F Pulse Rate 80 Respiratory Rate 18 Blood Pressure 144/97 H Pulse Oximetry 98 Oxygen Delivery Method Room Air BMI result Body Mass Index 33.7 Appearance: Alert. Oriented X3. In moderate distress. Eyes: PERRLA, No Nystagmus ENT: Pharynx normal. Oral Mucosa moist Neck: Normal inspection. Neck supple. CVS: Normal heart rate and rhythm. Pulses normal. Respiratory: No respiratory distress. Equal air entry bilateral, no wheezing/rales/rhonchi Abdomen: Soft and diffuse tenderness mid abdomen no hernia palpable. Bowel sounds are present, no mass palpable, no CVA tenderness Skin: Skin warm and dry. Normal skin color. Normal skin turgor. Extremities: No lower extremity edema. No calf tenderness Neuro: Oriented X 3. Medical Decision Making Lab Data MDM Lab Attestation statement: I reviewed the patient's lab results. 05/10/23 02:18 05/10/23 02:18 Labs: Lab Results 05/10/23 05/10/23 Range/Units 02:18 03:23 WBC 9.5 (4.8-10.8) X10*3/uL RBC 4.61 (4.20-5.50) X10*6/uL Hgb 14.1 (12.0-16.0) g/dl Hct 40.9 (37.0-47.0) % MCV 88.7 (80.0-98.0) fL MCH 30.6 (27.0-33.0) pg MCHC 34.5 (31.0-35.0) g/dl RDW 12.8 (11.0-16.0) % Plt Count 248 (160-400) X10*3/uL MPV 10.0 (9.4-12.3) fL Immature Gran % (Auto) 0.4 (0.0-0.4) % Neut % (Auto) 62.1 (45-73) % Lymph % (Auto) 27.2 (20-40) % Falls % (Auto) 8.4 (2-11) % Eos % (Auto) 1.6 (0-4) % Baso % (Auto) 0.3 (0-2) % Lymph # (Auto) 2.6 (1.2-4.9) X10*3/uL Falls # (Auto) 0.8 (0.1-1.2) X10*3/uL Eos # (Auto) 0.2 (0.0-0.4) X10*3/uL Baso # (Auto) 0.0 (0.0-0.2) X10*3/uL Abs Immat Gran (auto) 0.04 H (0.00-0.03) X10*3/uL Absolute Neuts (auto) 5.9 (2.0-8.3) x10*3/uL Absolute Nucleated RBC 0.000 (0.0-0.012) X10*3/uL Nucleated RBC % (auto) 0.0 (0.0-0.2) /100WBC Sodium 141 (135-145) mmol/L Potassium 3.6 (3.3-5.1) mmol/L Chloride 109 H (96-108) mmol/L Carbon Dioxide 22 (22-29) mmol/L Anion Gap 14 (12-20) BUN 15 (9-16) mg/dL Creatinine 0.62 (0.5-1.4) mg/dL Estim Creat Clear Calc 121.5 Estimated GFR > 60 Random Glucose 96 (60-115) mg/dL Calcium 9.7 (8.4-10.2) mg/dL Total Bilirubin 0.2 (0.0-1.0) mg/dL AST 33 H (5-31) U/L ALT 36 H (0-31) U/L Alkaline Phosphatase 84 (39-117) U/L Troponin I High Sens < 2.7 (<3.5-17.0) ng/L Total Protein 7.6 (6.5-8.0) g/dL Albumin 4.1 (3.5-5.0) g/dL Lipase 8 (8-78) U/L Urine Color Dark Yellow Urine Appearance Cloudy Urine pH 5.5 (5.0-9.0) Ur Specific [place] 1.025 (1.005-1.025) Urine Protein Negative (Neg-Trace) mg/dL Urine Glucose (UA) Negative (Negative) mg/dL Urine Ketones Trace (Negative) mg/dL Urine Blood Trace H (Negative) Urine Nitrite Negative (Negative) Ur Leukocyte Esterase Negative (Negative) Urine RBC 0-2 (0-2) /HPF Urine WBC 0-5 (0-5) /HPF Ur Squamous Epith Cells 6-10 (0-2) /HPF Calcium Oxalate Crystal Present Urine Bacteria 1+ (None Seen) Hyaline Casts 0-2 (0-2) /LPF Medications Administered Discontinued Medications Generic Name Dose Route Start Last Admin Trade Name Freq PRN Reason Stop Dose Admin Sodium Chloride 1,000 mls @ 999 mls/hr 05/10/23 04:34 05/10/23 06:02 Ns IV 05/10/23 05:34 Infused .Q1H1M ONE Infusion Morphine Sulfate 4 mg 05/10/23 04:34 05/10/23 05:00 Morphine Sulfate 4 Mg/Ml Cartridge IVPUSH 05/10/23 04:35 4 mg ONCE ONE Administration Protocol Ondansetron HCl 4 mg 05/10/23 04:34 05/10/23 05:00 Ondansetron Hcl 4 Mg/2 Ml Vial IVPUSH 05/10/23 04:35 4 mg ONCE ONE Administration Discharge Plan Discharge Clinical Impression: Irritable bowel syndrome Patient Disposition: Home, Self-Care Instructions: Irritable Bowel Syndrome (ED) Additional Instructions: Avoid fried food Food restrictions as advised follow fodmap diet Follow-up with your purchasing assistant Take dicyclomine as prescribed by purchasing assistant Prescriptions: No Action omalizumab [Xolair] 150 mg/mL syringe 300 mg subcut Q2W Qty: 4 11RF albuterol sulfate [Ventolin HFA] 90 mcg/actuation HFA aerosol inhaler 2 puff inhalation Q4-6H PRN (Reason: shortness of breath or wheezing) 30 Days Qty: 1 6RF fluticasone furoate-vilanterol [Breo Ellipta] 200-25 mcg/dose blister with device 1 inh inhalation DAILY 30 Days Qty: 60 6RF Incruse Ellipta 62.5 mcg/actuation blister with device 1 inh inhalation DAILY 30 Days Qty: 30 6RF cholecalciferol (vitamin D3) 50 mcg (2,000 unit) capsule 50 mcg PO DAILY 30 Days Qty: 30 11RF docusate sodium 100 mg capsule 100 mg PO BID Qty: 60 0RF polyethylene glycol 3350 [Gavilax] 17 gram/dose powder 17 g PO BID 60 Days Qty: 2040 2RF ipratropium-albuterol 0.5 mg-3 mg(2.5 mg base)/3 mL solution for nebulization 3 ml inhalation Q4-6H PRN (Reason: for wheezing) Qty: 180 3RF clobetasol 0.05 % cream 1 appl topical BID 28 Days Qty: 45 1RF Rx Instructions: Then maintenance therapy for 2-3 times per week lorazepam 1 mg tablet 1 mg PO ONCE PRN (Reason: anxiety) Qty: 2 0RF Rx Instructions: Take 30 mins before procedure, may repeat x 1 if needed amlodipine 10 mg tablet 10 mg PO DAILY Qty: 90 1RF Gaviscon Extra Strength 254-237.5 mg/5 mL suspension 10 ml PO QID PRN (Reason: dyspepsia) Qty: 355 0RF tramadol 50 mg tablet 50 mg PO Q8H PRN (Reason: pain) Qty: 10 0RF atorvastatin [Lipitor] 10 mg tablet 10 mg PO DAILY Qty: 30 4RF metoprolol tartrate 100 mg tablet 100 mg PO BID 90 Days Qty: 180 1RF diclofenac sodium 75 mg tablet,delayed release (DR/EC) 75 mg PO BID PRN (Reason: pain) Qty: 60 0RF lisinopril 10 mg tablet 10 mg PO DAILY Qty: 30 3RF clotrimazole-betamethasone 1-0.05 % cream 1 appl topical BID 5 Days Qty: 45 0RF levothyroxine 175 mcg tablet 200 mcg PO DAILY omeprazole 20 mg capsule,delayed release(DR/EC) 40 mg PO DAILY 90 Days Qty: 180 1RF famotidine 20 mg tablet 20 mg PO BEDTIME PRN (Reason: for acid reflux) 90 Days Qty: 90 1RF budesonide-formoterol [Symbicort] 160-4.5 mcg/actuation HFA aerosol inhaler 2 puff inhalation BID amitriptyline 25 mg tablet 75 mg PO BEDTIME 60 Days Qty: 180 2RF levothyroxine [Tirosint] 200 mcg capsule 200 mcg PO DAILY Qty: 30 5RF
[2023-05-10 05:00] VITALS: RESP 18
[2023-05-10] MEDS: 0.9 % Sodium Chloride 1,000 ML 999 ML IV (05:00)
[2023-05-10] MEDS: ondansetron HCL 4 MG/2 ML VIAL IVPUSH (05:00)
[2023-05-10] MEDS: Morphine Sulfate 4 MG/ML CARTRIDGE IVPUSH (05:00)
[2023-05-10 06:08] VITALS: BP 144/97; PULSE 80; RESP 18; TEMP 36.6; O2SAT 98
--- NOTE | 2023-05-10 06:09 | MHC.EDTECH ---
Hourly rounds and vitals completed,call tyler in reach
== END 2023-05-10 06:50 | disposition home or self-care (01) ==
PROVIDERS: Emergency Provider Internal Medicine; PCP Internal Medicine
DX: K58.9 Irritable bowel syndrome, unspecified (principal); R10.30 Lower abdominal pain, unspecified; R11.2 Nausea with vomiting, unspecified; Z79.899 Other long term (current) drug therapy
CPT/HCPCS: 36415; 74176; 80053; 81001; 83690; 84484; 85025; 93005; 96361; 96374; 96375; 99284; 99285; J2270; J2405

== ENCOUNTER → 2023-05-10 02:10 | Outpatient (BNV) | payer OTHER, SELFPAY | PROVIDERS: Emergency Provider Internal Medicine; PCP Internal Medicine; Visit Provider Internal Medicine Cardiovascular Disease | DX: R10.9 Unspecified abdominal pain (principal) | CPT/HCPCS: 93010 ==

== ENCOUNTER 2023-05-14 13:37 | Outpatient (REF) | payer OTHER, SELFPAY ==
[2023-05-14 13:37] VITALS: BP 150/105; PULSE 83; RESP 20; TEMP 36.4; O2SAT 97
[2023-05-14] MEDS: Omalizumab 150 MG/ML SYRINGE 300 MG SUBCUT (13:42)
== END 2023-05-14 13:38 | disposition home or self-care (01) ==
LOC: HO.MDS 13:37
PROVIDERS: Visit Provider Internal Medicine Pulmonary Disease
DX: J45.50 Severe persistent asthma, uncomplicated (principal)
CPT/HCPCS: 96372; J2357

== ENCOUNTER 2023-05-14 14:32 | Outpatient (REF) | payer OTHER, SELFPAY ==
--- NOTE | ~2023-05-14 | US_ITS ---
EXAMINATION: US RETROPERITONEAL LIMITED (RENAL ONLY) CLINICAL INFORMATION: Calculus of kidney. COMPARISON: CT abdomen and pelvis 05/10/2023. X-ray KUB 04/04/2023. Renal ultrasound 02/12/2023 and 08/08/2020. MRI abdomen 02/14/2018. TECHNIQUE: Real-time imaging of the kidneys. FINDINGS: RIGHT KIDNEY: 12.6 x 4.8 x 5.7 cm (SAG x AP x TRV). The kidney is normal in size, contour, and echogenicity. Renal cortical thickness is normal. No focal parenchymal lesions. Nonobstructing 5 mm stone. LEFT KIDNEY: 11.7 x 5.7 x 4.7 cm (SAG x AP x TRV). The kidney is normal in size, contour, and echogenicity. Renal cortical thickness is normal. No focal parenchymal lesions. Mild hydronephrosis. No proximal obstructing stone. Nonobstructing 3 mm stone is noted. US/US renal BI IMPRESSION: * Mild left hydronephrosis. No proximal obstructing stone. * Bilateral nonobstructing nephrolithiasis.
== END 2023-05-14 14:33 | disposition home or self-care (01) ==
LOC: HO.US 14:32
PROVIDERS: PCP Internal Medicine; Visit Provider Urology
DX: N20.0 Calculus of kidney (principal)
CPT/HCPCS: 76775

== ENCOUNTER 2023-05-31 08:10 | Outpatient (AMB) | payer OTHER, SELFPAY ==
--- NOTE | 2023-05-31 08:10 | A.OFFVIS_ITS ---
Intake Intake Visit Reasons: Post op/US follow up Intake Note: Patient presents today for a telehealth follow up on: Post op/US Meds- None Allergies to Antibiotic- Levofloxacin Blood Thinner- None Cable Supervisor Required: No Allergies pineapple [PINEAPPLE] Allergy (Severe, Verified 05/31/23 08:12) ANAPHYLAXIS adhesive tape Allergy (Intermediate, Verified 05/31/23 08:12) Blister Iodinated Contrast Media [IV Dye, Iodine Containing] Allergy (Intermediate, Verified 05/31/23 08:12) SOB,RASH levofloxacin [From Levaquin] Allergy (Intermediate, Verified 05/31/23 08:12) swelling/rash oxycodone [From Percocet] Allergy (Intermediate, Verified 05/31/23 08:12) rash/SOB aspirin [ASA] Adverse Reaction (Mild, Verified 05/31/23 08:12) UPSET STOMACH Medication List - Last Reconciled 05/31/23 by Blanca Lujan MD aluminum hydrox-magnesium carb 254-237.5 mg/5 mL (Gaviscon Extra Strength) 10 mL PO QID PRN amitriptyline 75 mg (3 x 25 mg) PO BEDTIME 60 days amlodipine 10 mg PO DAILY atorvastatin (Lipitor) 10 mg PO DAILY budesonide-formoterol 160-4.5 mcg/actuation (Symbicort) 2 puffs inhalation BID cholecalciferol (vitamin D3) 50 mcg PO DAILY 30 days clobetasol 0.05% 1 appl topical BID 4 weeks clotrimazole-betamethasone 1-0.05 % 1 appl topical BID 5 days diclofenac sodium 75 mg PO BID PRN docusate sodium 100 mg PO BID famotidine 20 mg PO BEDTIME PRN 90 days fluticasone furoate-vilanterol 200-25 mcg/dose (Breo Ellipta) 1 inh inhalation DAILY 30 days ipratropium-albuterol 0.5 mg-3 mg(2.5 mg base)/3 mL 3 mL inhalation Q4-6H PRN levothyroxine 200 mcg PO DAILY lisinopril 10 mg PO DAILY lorazepam 1 mg PO ONCE PRN metoprolol tartrate 100 mg PO BID 90 days omalizumab (Xolair) 300 mg (2 mL) subcut Q2W omeprazole 40 mg (2 x 20 mg) PO DAILY 90 days polyethylene glycol 3350 (Gavilax) 17 grams PO BID 60 days pyridoxine (vitamin B6) 100 mg PO DAILY Tirosint (levothyroxine) 200 mcg PO DAILY NS tramadol 50 mg PO Q8H PRN umeclidinium 62.5 mcg/actuation (Incruse Ellipta) 1 inh inhalation DAILY 30 days Ventolin HFA 90 mcg/actuation (albuterol sulfate) 2 puffs inhalation Q4-6H PRN 30 days NS HPI HPI Comments History of Present Illness Details 05/31/2023--Gloria is being followed for k idney stones. She had left ESWL on 04/04/2023. She presents for telehealth visit. Video attempted. The patient states she still gets intermittent pain in the left kidney area. She also states her urine appears dark and she thinks it may have blood. The patient is concerned as to her continuing to make kidney stones. She states she is being evaluated for a pancreatic problem. I have discussed recent renal ultrasound and CT scan results. Renal ultrasound 05/14/2023--3 mm left kidney stone, 5mm right kidney stone. CT scan 05/10/2023 bilateral punctate stones largest 4 mm right kidney. Plan discussed will start vitamin B6 100 mg daily, refer to nephrology for workup due to kidney stones. In regards to her complains regarding her urine I will have the nurses reach out to her to have her leave a urine specimen at the lab so that I can evaluate this. We will monitor kidneys renal ultrasound in 6 months. Review of chart: 03/07/2023--Gloria is a 52-year-old femal e who is here for evaluation for kidney stones. The patient states that she has had history of kidney stones and has had prior kidney stone treatments including shockwave lithotripsy. Past Medical history includes asthma, she is followed by Pulmonary, history of thyroid cancer status post thyroid removal, bowel condition. The patient complains of left kidney pain, denies blood in the urine. I have reviewed chart, imagin12/21/22-CTAP--left kidney stones and r ight punctate kidney stone 02/12/23- Renal US --Left kidney stones 4-5 mm I have discussed diet modification to increase fluids, low sodium and low oxalate diet, diet sheet provided. Discussed Left ESWL--risks to include but not limited to, blood in the urine, bruising to the skin, kidney hematoma, possible need for another procedure if a stone fragment obstructs the ureter while passing, possible need to repeat procedure if stone is not completely fragmented. UA- negative. Plan:Left ESWL. Needs pulmonary clearance prior 05/31/2023--Plan discussed will start hiren min B6 100 mg daily, refer to nephrology for workup due to kidney stones. In regards to her complains regarding her urine I will have the nurses reach out to her to have her leave a urine specimen at the lab so that I can evaluate this. We will monitor kidneys renal ultrasound in 6 months. [facility] Medical History (Updated 05/31/23 @ 09:43 by Blanca Lujan MD) Dysphagia Diarrhea Well woman exam Abnormal finding on EKG Hx of flexible sigmoidoscopy Internal derangement of right shoulder Lump of left breast Lump of right breast Lump of axillary tail of right breast Chronic constipation Rotator cuff impingement syndrome of left shoulder Right forearm pain Colitis Hypertensive urgency Rotator cuff impingement syndrome Lateral epicondylitis of both elbows Fall IBS (irritable bowel syndrome) Abdominal bloating Tendinopathy of left rotator cuff History of TIA (transient ischemic attack) Hypercholesterolemia Vitamin D deficiency Multinodular thyroid Pancreatic cyst Constipation Thyroid nodule Diarrhea Rectal bleeding Esophageal spasm GERD (gastroesophageal reflux disease) Hypertension Asthma Kidney stones History of migraine headaches Fibromyalgia Allergic rhinitis Sciatic nerve pain Ovarian cyst Hypothyroidism Surgical History History of arthroscopic surgery of shoulder Hx of eye surgery History of breast lump/mass excision Hx of hemorrhoidectomy Hx of tubal ligation History of esophagogastroduodenoscopy (EGD) History of colonoscopy (~11/16/19) H/O: hysterectomy History of thyroidectomy (~11/2018) History of kidney surgery Hx of bilateral breast reduction surgery Hx of appendectomy History of cholecystectomy (~2003) H/O lithotripsy Family History Father Family history of high blood pressure History of high cholesterol Mother History of diabetes mellitus Family history of high blood pressure Family history of asthma History of fibromyalgia Liver disease Maternal Grandfather Colon cancer Family/Other Breast cancer Social History Household Members: Spouse Household Members Other:: daughter Housing: Apartment Are you a primary care analyst to a significant other at home: No Do you presently have visiting nurse or other home services: No Alcohol intake: never Patient Tobacco Use Status: Former Tobacco user Quit Date: 2013 Tobacco use type: Cigarette Years Smoked: 15 e-Cigarette/Vaping Use: Never Used Second Hand Smoke Exposure: No Substance Use Type: Marijuana service: No Current occupational status: disabled Current occupation: right handed Sexual orientation: Straight/Heterosexual Gender identity: Female Cognitive needs: No Hearing needs: No Vision needs: Yes Female Reproductive History Menstrual Age of Menarche: 10 Results Reviewed Results Reviewed: Date of Service: 05/14/23 EXAMINATION: US RETROPERITONEAL LIMITED (RENAL ONLY) CLINICAL INFORMATION: Calculus of kidney. COMPARISON: CT abdomen and pelvis 05/10/2023. X-ray KUB 04/04/2023. Renal ultrasound 02/12/2023 and 08/08/2020. MRI abdomen 02/14/2018. TECHNIQUE: Real-time imaging of the kidneys. FINDINGS: RIGHT KIDNEY: 12.6 x 4.8 x 5.7 cm (SAG x AP x TRV). The kidney is normal in size, contour, and echogenicity. Renal cortical thickness is normal. No focal parenchymal lesions. Nonobstructing 5 mm stone. LEFT KIDNEY: 11.7 x 5.7 x 4.7 cm (SAG x AP x TRV). The kidney is normal in size, contour, and echogenicity. Renal cortical thickness is normal. No focal parenchymal lesions. Mild hydronephrosis. No proximal obstructing stone. Nonobstructing 3 mm stone is noted. IMPRESSION: * Mild left hydronephrosis. No proximal obstructing stone. * Bilateral nonobstructing nephrolithiasis. Date of Service: 05/10/23 EXAMINATION: CT ABDOMEN AND PELVIS WITHOUT CONTRAST CLINICAL INFORMATION: Abdominal pain and distention. COMPARISON: None available. TECHNIQUE: Multidetector volumetric imaging was performed from the superior aspect of the liver through the pubic symphysis. Sagittal and coronal reformatted images were obtained on the technologist's workstation. This CT examination was performed using dose optimization techniques as appropriate, variously including the following: *Automated exposure control *Adjustment of mA and/or kV according to patient size (this includes techniques or standardized protocols for targeted exams where dose is matched to indication/reason for exam; i.e. extremities or head) *Use of iterative reconstruction technique DLP: 862 mGy-cm FINDINGS: LUNG BASES: The visualized lung bases are unremarkable. LIVER, GALLBLADDER, AND BILIARY TREE: The liver is normal in size, shape, and attenuation. No focal hepatic lesion or biliary ductal dilatation is present. There has been a prior cholecystectomy. PANCREAS: Unremarkable. SPLEEN: Unremarkable. ADRENAL GLANDS: Unremarkable. KIDNEYS AND URETERS: The kidneys are normal in size, shape, and attenuation. There are scattered bilateral renal calculi measuring up to 5 mm lower pole right kidney. There is no hydronephrosis. BLADDER: Unremarkable. GASTROINTESTINAL TRACT: There is a small hiatal hernia. The large and small bowel are within normal limits. The appendix is not seen. ABDOMINAL WALL: No significant hernia is appreciated. LYMPH NODES: Normal. VASCULAR: Unremarkable. PELVIC VISCERA: Unremarkable. OSSEOUS STRUCTURES: There is diffuse thoracolumbar disc degenerative change with prominent posterior osteophytes of the lower thoracic spine with spinal canal narrowing at multiple levels.. IMPRESSION: 1. No acute intra-abdominal abnormality. 2. Bilateral nonobstructing renal calculi. 3. Diffuse thoracolumbar disc degenerative change with prominent posterior osteophytes of the lower thoracic spine with spinal canal narrowing at multiple levels. Assessment & Plan Assessment & Plan (1) Kidney stones: Code(s): N20.0 - Calculus of kidney Plan Plan discussed will start vitamin B6 100 mg daily, refer to nephrology for workup due to kidney stones. In regards to her complains regarding her urine I will have the nurses reach out to her to have her leave a urine specimen at the lab so that I can evaluate this. We will monitor kidneys renal ultrasound in 6 months. Orders: Orders 2 US renal BI 6 Months N20.0 - Calculus of kidney Referrals Nephrology Referral N20.0 - Calculus of kidney Medications: New pyridoxine (vitamin B6) 100 mg PO DAILY 90 tabs 3RF Patient Instructions: The patient had an opportunity to ask questions regarding treatment plan. All questions were answered. Imaging, Laboratory studies were discussed and reviewed in detail. No major barriers to understanding were identified. The patient expressed understanding and agreement with the above treatment plan. The patient is aware they should contact our office by phone for worsening of their current condition or the appearance of new symptoms. Compliance is encouraged with any medications and followup testing that is ordered. It is a privilege to be allowed the opportunity to participate in the urologic care of your patient. If you have any questions or concerns regarding treatment for the above conditions please do not hesitate to contact me. The office t elephone contact is [phone]. This note is constructed in part using voice recognition software. While every effort has been made to ensure accuracy carpet cleaner errors may have been included. Yours sincerely, Blanca Lujan MD Telehealth Telehealth Location of provider rendering services: practice address Location of patient: address on file Patient Identification confirmed using: Name, : Yes Telehealth method: voice only Patient verbally consented to treatment: Yes Patient verbally consented to billing insurance company: Yes Patient informed of any privacy concerns related to visit: Yes Minutes spent on Phone/Video with Pt.: 18 Coding Level of Care Code Tele Est Pt Level 4 (99829) Diagnoses Kidney stones N20.0
== END 2023-05-31 09:54 | disposition home or self-care (01) ==
LOC: HO.HUSH 08:10
PROVIDERS: PCP Internal Medicine; Visit Provider Urology
DX: N20.0 Calculus of kidney (principal)
CPT/HCPCS: 99024

== ENCOUNTER → 2023-05-31 08:10 | Outpatient (BNVA) | payer OTHER, SELFPAY | PROVIDERS: PCP Internal Medicine; Visit Provider Urology ==

== ENCOUNTER 2023-06-01 09:45 | Outpatient (REF) | payer OTHER, SELFPAY ==
[2023-06-01 11:37] LABS: MANUAL DIFF FLAG NO
[2023-06-01 11:44] LABS: Basophils Percent Auto 0.4 % (0-2); Eosinophils Absolute Auto 0.2 X10*3/uL (0.0-0.4); Eosinophils Percent Auto 2.1 % (0-4); Hematocrit 45.7 % (37.0-47.0); Hemoglobin 15.5 g/dl (12.0-16.0); Imm Gran Abs Auto 0.03 X10*3/uL (0.00-0.03); Imm Gran Pct Auto 0.4 % (0.0-0.4); Lymphocytes Absolute Auto 1.8 X10*3/uL (1.2-4.9); Lymphocytes Percent Auto 25.7 % (20-40); Mean Corpuscular HGB Conc 33.9 g/dl (31.0-35.0); Mean Corpuscular Hemoglobin 30.5 pg (27.0-33.0); Mean Corpuscular Volume 89.8 fL (80.0-98.0); Mean Platelet Volume 10.5 fL (9.4-12.3); Monocytes Absolute Auto 0.4 X10*3/uL (0.1-1.2); Monocytes Percent Auto 6.1 % (2-11); Neutrophils Absolute Auto 4.6 x10*3/uL (2.0-8.3); Neutrophils Percent Auto 65.3 % (45-73); Platelet Count 288 X10*3/uL (160-400); Red Blood Count 5.09 X10*6/uL (4.20-5.50); Red Cell Distribution Width 12.5 % (11.0-16.0)
[2023-06-01 12:25] LABS: Erythrocyte Sedimentation Rate 19 MM/HR (0-20)
[2023-06-01 12:54] LABS: Rheumatoid Factor < 13.0 IU/mL (<15.0)
[2023-06-01 12:55] LABS: Alanine Aminotransferase 23 U/L (0-31); Albumin Level 4.2 g/dL (3.5-5.0); Alkaline Phosphatase 79 U/L (39-117); Anion Gap 13 (12-20); Aspartate Amino Transferase 19 U/L (5-31); Bilirubin Total 0.4 mg/dL (0.0-1.0); Blood Urea Nitrogen 16 mg/dL (9-16); C Reactive Protein 0.23 mg/dL (< or = 0.50); Calcium 9.7 mg/dL (8.4-10.2); Carbon Dioxide 25 mmol/L (22-29); Chloride 108 mmol/L (96-108); Estimated Glomerular Filt Rate > 60; Glucose Random 99 mg/dL (60-115); Potassium 3.7 mmol/L (3.3-5.1); Sodium 142 mmol/L (135-145); Total Protein 8.2 g/dL (6.5-8.0)
[2023-06-01 13:09] LABS: Free T4 (Free Thyroxine) 1.31 ng/dL (0.71-1.85)
[2023-06-01 13:15] LABS: Ferritin 309 ng/mL (10-250); Thyroid Stimulating Hormone 0.08 uIU/mL (0.32-4.0); Vitamin D 25-OH Total 28.5 ng/mL (>30)
[2023-06-01 13:21] LABS: Folate 9.8 ng/mL (> or = 4.0); Vitamin B12 372 pg/mL (200-900)
[2023-06-01 13:44] LABS: Appearance Urine Cloudy; Color Urine Dark Yellow; Glucose Urine UA Negative (Negative); Leukocyte Esterase Urine Negative (Negative); Nitrite Urine Negative (Negative); Specific Gravity - Urine 1.025 (1.005-1.025); UMIC TRIGGER UA YES; Urine Blood Trace (Negative); Urine Ketones Negative (Negative); Urine Protein Negative (Neg-Trace)
[2023-06-01 14:27] LABS: Bacteria Urine 3+ (None Seen); Hyaline Casts Urine 0-2 /LPF (0-2); RBC Urine 0-2 /HPF (0-2); WBC Urine 0-5 /HPF (0-5)
[2023-06-04 11:43] LABS: Anti Nuclear Antibody Screen NEGATIVE (NEGATIVE)
[2023-06-04 21:03] LABS: Myeloperoxidase Antibody <1.0 AI; Proteinase 3 PR3 Antibodies <1.0 AI
[2023-06-04 21:29] LABS: Lyme Abs Screen <0.90 index
[2023-06-05 04:38] LABS: IgA 467 mg/dL (47-310); IgG 1483 mg/dL (600-1640); IgM 66 mg/dL (50-300)
[2023-06-05 12:43] LABS: Cyclic Citrullinated Peptide <16 UNITS
[2023-06-05 13:04] LABS: Mitochondrial Antibodies NEGATIVE (NEGATIVE)
[2023-06-05 14:39] LABS: Angiotensin Converting Enzyme 45.3 U/L (9-67)
[2023-06-05 15:53] LABS: Zinc 79 mcg/dL (60-130)
[2023-06-05 16:58] LABS: A. Phagocytophilum Ab IgG <1:64 (<1:64); A. Phagocytophilum Ab IgM <1:20 (<1:20); E. Chaffeensis Ab IgG <1:64 (<1:64); E. Chaffeensis Ab IgM <1:20 (<1:20)
[2023-06-05 18:30] LABS: Nicotinamide <20 ng/mL; Vit B3 - Nicotinic Acid <20 ng/mL
[2023-06-05 18:49] LABS: Vitamin B5 (Pantothenic Acid) <40 ng/mL (<275)
[2023-06-06 10:19] LABS: Vitamin K1 302 pg/mL (130-1500)
[2023-06-06 12:17] LABS: Vitamin B1 8 nmol/L (8-30)
[2023-06-06 13:18] LABS: Metanephrine, Free 50 pg/mL (<=57); Normetanephrines, Free 173 pg/mL (<=148); Total Metanephrine, Free 223 pg/mL (<=205)
[2023-06-06 13:47] LABS: Liver Kidney Microsomal Ab <=20.0 U (<=20.0)
[2023-06-06 16:03] LABS: Vitamin B6 6.7 ng/mL (2.1-21.7)
[2023-06-06 16:29] LABS: Vitamin A 37 mcg/dL (38-98)
[2023-06-07 04:44] LABS: Alpha-Tocopherol 10.7 mg/L (5.7-19.9); Beta-Gamma Tocopherol 1.5 mg/L (<=4.3)
[2023-06-07 11:03] LABS: Vitamin C 0.7 mg/dL (0.3-2.7)
[2023-06-07 13:13] LABS: Smooth Muscle Antibody <20 U (<20)
[2023-06-08 16:44] LABS: Aldolase 4.2 U/L (<=8.1)
[2023-06-09 13:43] LABS: Histamine Plasma <1.5 ng/mL (< OR = 1.8); Soluble Liver Ag Autoantibody <20.1 U (0.0-20.0)
[2023-06-12 16:43] LABS: Hu Antibody Screen, IFA Serum NEGATIVE (NEGATIVE)
== END 2023-06-01 09:46 | disposition home or self-care (01) ==
LOC: HO.LAB 09:45
PROVIDERS: Absent Provider Urology; PCP Internal Medicine; Referring Provider Internal Medicine Endocrinology, Diabetes & Metabolism; Visit Provider Internal Medicine Gastroenterology
DX: K52.9 Noninfective gastroenteritis and colitis, unspecified (principal); R76.8 Other specified abnormal immunological findings in serum; R79.82 Elevated C-reactive protein (CRP); D82.4 Hyperimmunoglobulin E [IgE] syndrome; K75.81 Nonalcoholic steatohepatitis (NASH); R79.89 Other specified abnormal findings of blood chemistry; N20.0 Calculus of kidney; E89.0 Postprocedural hypothyroidism; Z91.018 Allergy to other foods
CPT/HCPCS: 36415; 80053; 81001; 82085; 82164; 82180; 82306; 82550; 82607; 82728; 82746; 82784; 83088; 83520; 83835; 84181; 84207; 84425; 84439; 84443; 84446; 84590; 84591; 84597; 84630; 85025; 85652; 86003; 86015; 86021; 86038; 86140; 86200; 86255; 86256; 86376; 86381; 86431; 86617; 86618; 86666; 87086; 99212

== ENCOUNTER 2023-06-01 09:45 | Outpatient (AMB) | payer OTHER, SELFPAY ==
--- NOTE | 2023-06-01 09:47 | A.OFFVIS_ITS ---
Vital Signs 06/01/23 09:51 Height 5 ft 5 in Weight 211 lb 10.3 oz BMI 35.2 BP 152/97 H Blood Pressure Location Lt brachial Position Sitting Pulse 99 Intake Visit Reasons: Clifford Patient - 2nd opinion Intake Note: Gloria presents in the office as a Dr horton patient for a 2nd opinion. CC: She states that everything is still going on and she is having pains, bloating, tingling in the stomach. She has nausea and vomiting. Constantly when she spits she has thick saliva. She has lost a lot of weight due to this condition. 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: No Allergies pineapple [PINEAPPLE] Allergy (Severe, Verified 06/14/23 08:12) ANAPHYLAXIS adhesive tape Allergy (Intermediate, Verified 06/14/23 08:12) Blister Iodinated Contrast Media [IV Dye, Iodine Containing] Allergy (Intermediate, Verified 06/14/23 08:12) SOB,RASH levofloxacin [From Levaquin] Allergy (Intermediate, Verified 06/14/23 08:12) swelling/rash oxycodone [From Percocet] Allergy (Intermediate, Verified 06/14/23 08:12) rash/SOB aspirin [ASA] Adverse Reaction (Mild, Verified 06/14/23 08:12) UPSET STOMACH HPI HPI Clifford Patient - 2nd opinion: Details: 52 yr old f here for f/u--second opinion, normally sees Dr Horton Symptoms started when she was 31 yrs old that she recalls burning upper abdomen, bloating, nausea, vomiting, abn bowel habit she had her gallbladder removed due to stones, she felt good for few years but the symptoms all came back Now she has tingling in her upper abdomen, with pain and going up to her throat the pain can go into the left arm she has a lot of headaches as well she has bad taste in mouth sometimes can be worse with food and water she can have nausea, vomiting as well she can have post prandial diarrhea, no blood in stool stool is stinky no greasiness to the stool, once was like that not now she takes tylenol, not on nsaids non smoker, non drinker, mother had liver and kidney problems LABS: rasied igG4, marked raised IgE and IgA, nml renal function, mild raised AST,ALT --nml panc elastase Multiple imaging studies on file incl MRI and CT scans, most recent CT 04/21 with nml Liver, pancreas, degen thoracolumbar changes EXAM: GENERAL: The patient is well developed and nontoxic. VITAL SIGNS:see workflow HEENT: Nonicteric sclerae, PERRLA, EOMI. Oropharynx clear. Moist mucous membranes. Conjunctivae appear well perfused. No thyroid mass. CHEST: Chest wall is nontender. HEART: Regular rate and rhythm without murmurs. LUNGS: Clear to auscultation bilaterally. ABDOMEN: Soft, positive bowel sounds, nontender, no organomegaly.no flank tenderness SKIN: No rash, no excessive bruising, petechiae, or purpura. NEUROLOGIC: Cranial nerves II-XII intact without motor/sensory deficit. Psych: normal affect A/P: 1/ Multiple GI sx for prolonged duration with marked raised IgE ,IgA, abn LFT e.g IgG4 disorder, Hyper IgE, CTD, mast cell d/o, PLAN: 1/ repeat EGD and colonoscopy with bx for amyloid, iGG4, mast cell --PCR for T whipplei, flow cytometry 2/ check RAST testing 3/ might need immunology referral 4/ check lyme and paraneoplastic ab 5/ other tests to consider duplex r/o MALS 6/ might need pain referral r/o radiculopathy spinal orgin [facility] Medical History (Updated 06/01/23 @ 10:18 by Saritha Alegre MD) Dysphagia Diarrhea Well woman exam Abnormal finding on EKG Hx of flexible sigmoidoscopy Internal derangement of right shoulder Lump of left breast Lump of right breast Lump of axillary tail of right breast Chronic constipation Rotator cuff impingement syndrome of left shoulder Right forearm pain Colitis Hypertensive urgency Rotator cuff impingement syndrome Lateral epicondylitis of both elbows Fall IBS (irritable bowel syndrome) Abdominal bloating Tendinopathy of left rotator cuff History of TIA (transient ischemic attack) Hypercholesterolemia Vitamin D deficiency Multinodular thyroid Pancreatic cyst Constipation Thyroid nodule Diarrhea Rectal bleeding Esophageal spasm GERD (gastroesophageal reflux disease) Hypertension Asthma Kidney stones History of migraine headaches Fibromyalgia Allergic rhinitis Sciatic nerve pain Ovarian cyst Hypothyroidism Surgical History History of arthroscopic surgery of shoulder Hx of eye surgery History of breast lump/mass excision Hx of hemorrhoidectomy Hx of tubal ligation History of esophagogastroduodenoscopy (EGD) History of colonoscopy (~11/16/19) H/O: hysterectomy History of thyroidectomy (~11/2018) History of kidney surgery Hx of bilateral breast reduction surgery Hx of appendectomy History of cholecystectomy (~2003) H/O lithotripsy Family History Father Family history of high blood pressure History of high cholesterol Mother History of diabetes mellitus Family history of high blood pressure Family history of asthma History of fibromyalgia Liver disease Maternal Grandfather Colon cancer Family/Other Breast cancer Social History Household Members: Spouse Household Members Other:: daughter Housing: Apartment Are you a primary technical healthcare consultant to a significant other at home: No Do you presently have visiting nurse or other home services: No Alcohol intake: never Patient Tobacco Use Status: Former Tobacco user Quit Date: 2013 Tobacco use type: Cigarette Years Smoked: 15 e-Cigarette/Vaping Use: Never Used Second Hand Smoke Exposure: No Substance Use Type: Marijuana service: No Current occupational status: disabled Current occupation: right handed Sexual orientation: Straight/Heterosexual Gender identity: Female Cognitive needs: No Hearing needs: No Vision needs: Yes Female Reproductive History Menstrual Age of Menarche: 10 Physical Exam Vital Signs: Last Vital Signs Pulse 99 06/01/23 09:51 BP 152/97 H 06/01/23 09:51 BMI result Body Mass Index 35.2 Assessment & Plan Assessment & Plan (1) Chronic diarrhea: Code(s): K52.9 - Noninfective gastroenteritis and colitis, unspecified Category: Medical Plan: PLAN: 1/ repeat EGD and colonoscopy with bx for amyloid, iGG4, mast cell --PCR for T whipplei, flow cytometry 2/ check RAST testing 3/ might need immunology referral 4/ check lyme and paraneoplastic ab 5/ other tests to consider duplex r/o MALS 6/ might need pain referral r/o radiculopathy spinal orgin (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: Code(s): R76.8 - Other specified abnormal immunological findings in serum Category: Medical Plan: PLAN: 1/ repeat EGD and colonoscopy with bx for amyloid, iGG4, mast cell --PCR for T whipplei, flow cytometry 2/ check RAST testing 3/ might need immunology referral 4/ check lyme and paraneoplastic ab 5/ other tests to consider duplex r/o MALS 6/ might need pain referral r/o radiculopathy spinal orgin (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 - Hyperimmunoglobulin E [IgE] syndrome Category: Medical Plan: PLAN: 1/ repeat EGD and colonoscopy with bx for amyloid, iGG4, mast cell --PCR for T whipplei, flow cytometry 2/ check RAST testing 3/ might need immunology referral 4/ check lyme and paraneoplastic ab 5/ other tests to consider duplex r/o MALS 6/ might need pain referral r/o radiculopathy spinal orgin Orders: Orders Vitamin D 25-OH Total 06/01/23 R76.8 - Other specified abnormal immunological findings in serum, K52.9 - Noninfective gastroenteritis and colitis, unspecified, D82.4 - Hyperimmunoglobulin E [IgE] syndrome Vitamin C 06/01/23 R76.8 - Other specified abnormal immunological findings in serum, K52.9 - Noninfective gastroenteritis and colitis, unspecified, D82.4 - Hyperimmunoglobulin E [IgE] syndrome Vitamin B6 06/01/23 R76.8 - Other specified abnormal immunological findings in serum, K52.9 - Noninfective gastroenteritis and colitis, unspecified, D82.4 - Hyperimmunoglobulin E [IgE] syndrome Vitamin B5 (Pantothenic Acid) 06/01/23 R76.8 - Other specified abnormal immunological findings in serum, K52.9 - Noninfective gastroenteritis and colitis, unspecified, D82.4 - Hyperimmunoglobulin E [IgE] syndrome Histamine Plasma 06/01/23 R76.8 - Other specified abnormal immunological fi ndings in serum, K52.9 - Noninfective gastroenteritis and colitis, unspecified, D82.4 - Hyperimmunoglobulin E [IgE] syndrome Tryptase 06/01/23 R19.7 - Diarrhea, unspecified, R76.8 - Other specified abnormal immunological findings in serum, K52.9 - Noninfective gastroenteritis and colitis, unspecified, D82.4 - Hyperimmunoglobulin E [IgE] syndrome Angiotensin Converting Enzyme 06/01/23 R76.8 - Other specified abnormal immunological findings in serum, K52.9 - Noninfective gastroenteritis and colitis, unspecified, D82.4 - Hyperimmunoglobulin E [IgE] syndrome ANCA Vasculitides 06/01/23 R76.8 - Other specified abnormal immunological findings in serum, K52.9 - Noninfective gastroenteritis and colitis, unspecified, D82.4 - Hyperimmunoglobulin E [IgE] syndrome C Reactive Protein 06/01/23 R76.8 - Other specified abnormal immunological findings in serum, K52.9 - Noninfective gastroenteritis and colitis, unspecified, D82.4 - Hyperimmunoglobulin E [IgE] syndrome Comprehensive Met. Panel 06/01/23 K75.81 - Nonalcoholic steatohepatitis (JOSEPH), R76.8 - Other specified abnormal immunological findings in serum, K52.9 - Noninfective gastroenteritis and colitis, unspecified, D82.4 - Hyperimmunoglobulin E [IgE] syndrome Creatine Kinase Total 06/01/23 R76.8 - Other specified abnormal immunological findings in serum, K52.9 - Noninfective gastroenteritis and colitis, unspecified, D82.4 - Hyperimmunoglobulin E [IgE] syndrome Erythrocyte Sedimentation Rate 06/01/23 R76.8 - Other specified abnormal immunological findings in serum, K52.9 - Noninfective gastroenteritis and colitis, unspecified, D82.4 - Hyperimmunoglobulin E [IgE] syndrome Lyme IgG/IgM w/reflex to WB 06/01/23 R76.8 - Other specified abnormal immunological findings in serum, K52.9 - Noninfective gastroenteritis and col itis, unspecified, D82.4 - Hyperimmunoglobulin E [IgE] syndrome Ehrlichia Anaplasma Ab Panel 06/01/23 R76.8 - Other specified abnormal immunological findings in serum, K52.9 - Noninfective gastroenteritis and colitis, unspecified, D82.4 - Hyperimmunoglobulin E [IgE] syndrome Lactoferrin, Fecal, Quant. 06/01/23 K51.50 - Left sided colitis without complications, R76.8 - Other specified abnormal immunological findings in serum, K52.9 - Noninfective gastroenteritis and colitis, unspecified, D82.4 - Hyperimmunoglobulin E [IgE] syndrome HU Antibody 06/01/23 R76.8 - Other specified abnormal immunological findings in serum, K52.9 - Noninfective gastroenteritis and colitis, unspecified, D82.4 - Hyperimmunoglobulin E [IgE] syndrome Aldolase 06/01/23 D82.4 - Hyperimmunoglobulin E [IgE] syndrome Zinc 06/01/23 R76.8 - Other specified abnormal immunological findings in serum, K52.9 - Noninfective gastroenteritis and colitis, unspecified, D82.4 - Hyperimmunoglobulin E [IgE] syndrome Vitamin E 06/01/23 R76.8 - Other specified abnormal immunological findings in serum, K52.9 - Noninfective gastroenteritis and colitis, unspecified, D82.4 - Hyperimmunoglobulin E [IgE] syndrome Vitamin K1 06/01/23 R76.8 - Other specified abnormal immunological findings in serum, K52.9 - Noninfective gastroenteritis and colitis, unspecified, D82.4 - Hyperimmunoglobulin E [IgE] syndrome Vitamin B3 (Niacin) 06/01/23 R76.8 - Other specified abnormal immunological findings in serum, K52.9 - Noninfective gastroenteritis and colitis, unspecified, D82.4 - Hyperimmunoglobulin E [IgE] syndrome Vitamin B1 06/01/23 R76.8 - Other specified abnormal immunological findings in serum, K52.9 - Noninfective gastroenteritis and colitis, unspecified, D82.4 - Hyperimmunoglobulin E [IgE] syndrome Vitamin B12 and Folate 06/01/23 R76.8 - Other specified abnormal immunological findings in serum, K52.9 - Noninfective gastroenteritis and colitis, unspecified, D82.4 - Hyperimmunoglobulin E [IgE] syndrome Ferritin 06/01/23 R76.8 - Other specified abnormal immunological findings in serum, K52.9 - Noninfective gastroenteritis and colitis, unspecified, D82.4 - Hyperimmunoglobulin E [IgE] syndrome Immunoglobulins,IgG IgA IgM 06/01/23 R76.8 - Other specified abnormal immunological findings in serum, K52.9 - Noninfective gastroenteritis and colitis, unspecified, D82.4 - Hyperimmunoglobulin E [IgE] syndrome Soluble Liver Ag Autoantibody 06/01/23 R76.8 - Other specified abnormal i mmunological findings in serum, K52.9 - Noninfective gastroenteritis and colitis, unspecified, D82.4 - Hyperimmunoglobulin E [IgE] syndrome Smooth Muscle Antibody 06/01/23 R76.8 - Other specified abnormal immunological findings in serum, K52.9 - Noninfective gastroenteritis and colitis, unspecified, D82.4 - Hyperimmunoglobulin E [IgE] syndrome JUAN Reflex Titer and Pattern 06/01/23 R79.82 - Elevated C-reactive protein (CRP), R76.8 - Other specified abnormal immunological findings in serum, K52.9 - Noninfective gastroenteritis and colitis, unspecified, D82.4 - Hyperimmunoglobulin E [IgE] syndrome Complete Blood Count Auto Diff 06/01/23 R76.8 - Other specified abnormal immunological findings in serum, K52.9 - Noninfective gastroenteritis and colitis, unspecified, D82.4 - Hyperimmunoglobulin E [IgE] syndrome GI Panel 06/01/23 R19.7 - Diarrhea, unspecified, R76.8 - Other specified abn ormal immunological findings in serum, K52.9 - Noninfective gastroenteritis and colitis, unspecified, D82.4 - Hyperimmunoglobulin E [IgE] syndrome Giardia Ag Stool EIA 06/01/23 R76.8 - Other specified abnormal immunological findings in serum, K52.9 - Noninfective gastroenteritis and colitis, unspecified, D82.4 - Hyperimmunoglobulin E [IgE] syndrome Metanephrines, Plasma 06/01/23 R76.8 - Other specified abnormal immunological findings in serum, K52.9 - Noninfective gastroenteritis and colitis, unspecified, D82.4 - Hyperimmunoglobulin E [IgE] syndrome Mitochondrial Antibody 06/01/23 R79.89 - Other specified abnormal findings of blood chemistry, R76.8 - Other specified abnormal immunological findings in serum, K52.9 - Noninfective gastroenteritis and colitis, unspecified, D82.4 - Hyperimmunoglobulin E [IgE] syndrome Vitamin A 06/01/23 R76.8 - Other specified abnormal immunological findings in serum, K52.9 - Noninfective gastroenteritis and colitis, unspecified, D82.4 - Hyperimmunoglobulin E [IgE] syndrome Liver Kidney Microsomal Ab 06/01/23 R76.8 - Other specified abnormal immunological findings in serum, K52.9 - Noninfective gastroenteritis and colitis, unspecified, D82.4 - Hyperimmunoglobulin E [IgE] syndrome Rast Allergen 06/01/23 Z91.018 - Allergy to other foods, R76.8 - Other specified abnormal immunological findings in serum, K52.9 - Noninfective gastroenteritis and colitis, unspecified, D82.4 - Hyperimmunoglobulin E [IgE] syndrome Rheumatoid Factor 06/01/23 R76.8 - Other specified abnormal immunological findings in serum, K52.9 - Noninfective gastroenteritis and colitis, unspecifi ed, D82.4 - Hyperimmunoglobulin E [IgE] syndrome Cyclic Citrullinated Peptide 06/01/23 R76.8 - Other specified abnormal immunological findings in serum, K52.9 - Noninfective gastroenteritis and colitis, unspecified, D82.4 - Hyperimmunoglobulin E [IgE] syndrome Medications: New sodium,potassium,mag sulfates 17.5-3.13-1.6 gram (Suprep Bowel Prep Kit) DILUTE; drink 1/2 at 6-8 pm and half at 11 PM- 1AM 354 mL 0RF
[2023-06-01 09:51] VITALS: BP 152/97; PULSE 99; BMI 35.2
== END 2023-06-01 10:34 | disposition home or self-care (01) ==
PROVIDERS: PCP Internal Medicine; Visit Provider Internal Medicine Gastroenterology
DX: K52.9 Noninfective gastroenteritis and colitis, unspecified (principal); R76.8 Other specified abnormal immunological findings in serum; D82.4 Hyperimmunoglobulin E [IgE] syndrome
CPT/HCPCS: 99214

== ENCOUNTER 2023-06-04 12:28 | Outpatient (AMB) | payer OTHER, SELFPAY ==
--- NOTE | 2023-06-04 13:01 | MHC.OFFVIS ---
Intake Vital Signs 06/04/23 13:02 Height 5 ft 5 in Weight 216 lb 14.958 oz BMI 36.1 BP 132/92 H Blood Pressure Location Rt brachial Position Sitting Pulse 88 Pulse Source Palpation Intake Visit Reasons: f/u post-surgical hypothyroidism Intake Note: Patient presents today for Post-Surgical Hypothyroidism follow up. Mammography Technician Required: No Accompanied by: Self / Same As Patient Allergies pineapple [PINEAPPLE] Allergy (Severe, Verified 06/04/23 13:06) ANAPHYLAXIS adhesive tape Allergy (Intermediate, Verified 06/04/23 13:06) Blister Iodinated Contrast Media [IV Dye, Iodine Containing] Allergy (Intermediate, Verified 06/04/23 13:06) SOB,RASH levofloxacin [From Levaquin] Allergy (Intermediate, Verified 06/04/23 13:06) swelling/rash oxycodone [From Percocet] Allergy (Intermediate, Verified 06/04/23 13:06) rash/SOB aspirin [ASA] Adverse Reaction (Mild, Verified 06/04/23 13:06) UPSET STOMACH Medication List - Last Reconciled 06/04/23 by Judith Fisher RN aluminum hydrox-magnesium carb 254-237.5 mg/5 mL (Gaviscon Extra Strength) 10 mL PO QID PRN amitriptyline 75 mg (3 x 25 mg) PO BEDTIME 60 days amlodipine 10 mg PO DAILY atorvastatin (Lipitor) 10 mg PO DAILY budesonide-formoterol 160-4.5 mcg/actuation (Symbicort) 2 puffs inhalation BID cholecalciferol (vitamin D3) 50 mcg PO DAILY 30 days clobetasol 0.05% 1 appl topical BID 4 weeks clotrimazole-betamethasone 1-0.05 % 1 appl topical BID 5 days diclofenac sodium 75 mg PO BID PRN docusate sodium 100 mg PO BID famotidine 20 mg PO BEDTIME PRN 90 days fluticasone furoate-vilanterol 200-25 mcg/dose (Breo Ellipta) 1 inh inhalation DAILY 30 days ipratropium-albuterol 0.5 mg-3 mg(2.5 mg base)/3 mL 3 mL inhalation Q4-6H PRN levothyroxine 200 mcg PO DAILY lisinopril 10 mg PO DAILY lorazepam 1 mg PO ONCE PRN metoprolol tartrate 100 mg PO BID 90 days omalizumab (Xolair) 300 mg (2 mL) subcut Q2W omeprazole 40 mg (2 x 20 mg) PO DAILY 90 days polyethylene glycol 3350 (Gavilax) 17 grams PO BID 60 days pyridoxine (vitamin B6) 100 mg PO DAILY pyridoxine (vitamin B6) 100 mg PO DAILY sodium,potassium,mag sulfates 17.5-3.13-1.6 gram (Suprep Bowel Prep Kit) DILUTE; drink 1/2 at 6-8 pm and half at 11 PM- 1AM sumatriptan succinate 100 mg PO DIRECTED Tirosint (levothyroxine) 200 mcg PO DAILY NS topiramate 50 mg PO BID tramadol 50 mg PO Q8H PRN umeclidinium 62.5 mcg/actuation (Incruse Ellipta) 1 inh inhalation DAILY 30 days Ventolin HFA 90 mcg/actuation (albuterol sulfate) 2 puffs inhalation Q4-6H PRN 30 days NS HPI HPI Comments History of Present Illness Details 52 YO Female with PMHx HTN, breast cancer in remission who is seen in F/U for postsurgical hypothyroidism after she underwent a total thyroidectomy 12/04/2018 for a multinodular thyroid. Patient last saw Dr. Humphrey on 08/21/2022 Surgery was uncomplicated, but the L inferior parathyroid gland did need to be re-implanted. 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 Postoperative course has been unremarkable, but she did recently develop severe hypothyroidism with TSH >40. She has admitted to poor compliance with her levothyroxine. Now she reports good compliance with levothyroxine 200 mcg PO daily for 1 wk . Most recent labs were at goal. Due now for repeat. She does complain of hair loss, fatigue, weight gain and confusion. She also has Vitamin D deficiency. S he has been compliant with her Vitamin D, and her levels are now at goal. Celiac panel was negative. Labs: Did not do recent labs. [facility] Medical History (Updated 06/01/23 @ 10:18 by Saritha Alegre MD) Dysphagia Diarrhea Well woman exam Abnormal finding on EKG Hx of flexible sigmoidoscopy Internal derangement of right shoulder Lump of left breast Lump of right breast Lump of axillary tail of right breast Chronic constipation Rotator cuff impingement syndrome of left shoulder Right forearm pain Colitis Hypertensive urgency Rotator cuff impingement syndrome Lateral epicondylitis of both elbows Fall IBS (irritable bowel syndrome) Abdominal bloating Tendinopathy of left rotator cuff History of TIA (transient ischemic attack) Hypercholesterolemia Vitamin D deficiency Multinodular thyroid Pancreatic cyst Constipation Thyroid nodule Diarrhea Rectal bleeding Esophageal spasm GERD (gastroesophageal reflux disease) Hypertension Asthma Kidney stones History of migraine headaches Fibromyalgia Allergic rhinitis Sciatic nerve pain Ovarian cyst Hypothyroidism Surgical History History of arthroscopic surgery of shoulder Hx of eye surgery History of breast lump/mass excision Hx of hemorrhoidectomy Hx of tubal ligation History of esophagogastroduodenoscopy (EGD) History of colonoscopy (~11/16/19) H/O: hysterectomy History of thyroidectomy (~11/2018) History of kidney surgery Hx of bilateral breast reduction surgery Hx of appendectomy History of cholecystectomy (~2003) H/O lithotripsy Family History Father Family history of high blood pressure History of high cholesterol Mother History of diabetes mellitus Family history of high blood pressure Family history of asthma History of fibromyalgia Liver disease Maternal Grandfather Colon cancer Family/Other Breast cancer Social History Household Members: Spouse Household Members Other:: daughter Housing: Apartment Are you a primary child care center assistant director to a significant other at home: No Do you presently have visiting nurse or other home services: No Alcohol intake: never Patient Tobacco Use Status: Former Tobacco user Quit Date: 2013 Tobacco use type: Cigarette Years Smoked: 15 e-Cigarette/Vaping Use: Never Used Second Hand Smoke Exposure: No Substance Use Type: Marijuana service: No Current occupational status: disabled Current occupation: right handed Sexual orientation: Straight/Heterosexual Gender identity: Female Cognitive needs: No Hearing needs: No Vision needs: Yes Female Reproductive History Menstrual Age of Menarche: 10 Physical Exam Vital Signs: Last Vital Signs Pulse 88 06/04/23 13:02 BP 132/92 H 06/04/23 13:02 BMI result Body Mass Index 36.1 Const Other: Healed scar status post thyroidectomy Assessment & Plan Assessment & Plan (1) Post-surgical hypothyroidism: Code(s): E89.0 - Postprocedural hypothyroidism Plan: This is a 52-year-old female with a history of post-surgical hypothyroidism. She is currently replaced with 200 mcgTirosint . Her most recent TSH level was suppressed could be due to weight loss recently Plan is to decrease Tirosint to 175 ug Will recheck TSH and free T4 in 6 weeks time and adjust Tirosint accordingly. Orders: Orders Free T4 (Free Thyroxine) 6 Weeks E89.0 - Postprocedural hypothyroidism Thyroid Stimulating Hormone 6 Weeks E89.0 - Postprocedural hypothyroidism Medications: New Tirosint (levothyroxine) 175 mcg PO DAILY 30 caps 5RF NS Discontinued Tirosint (levothyroxine) Discontinued Reason: Doctor's Order 200 mcg PO DAILY 30 caps 5RF NS levothyroxine Discontinued Reason: Doctor's Order 200 mcg PO DAILY Coding Level of Care Code Est Pt Level 3 (58576) Diagnoses Post-surgical hypothyroidism E89.0
[2023-06-04 13:02] VITALS: BP 132/92; PULSE 88; BMI 36.1
== END 2023-06-04 13:25 | disposition home or self-care (01) ==
PROVIDERS: PCP Internal Medicine; Visit Provider Internal Medicine Endocrinology, Diabetes & Metabolism
DX: E89.0 Postprocedural hypothyroidism (principal)
CPT/HCPCS: 99213

== ENCOUNTER → 2023-06-04 12:28 | Outpatient (BNVA) | payer OTHER, SELFPAY | PROVIDERS: PCP Internal Medicine; Visit Provider Internal Medicine Endocrinology, Diabetes & Metabolism | DX: E89.0 Postprocedural hypothyroidism (principal) | CPT/HCPCS: 99212 ==

== ENCOUNTER 2023-06-14 08:09 | Outpatient (AMB) | payer OTHER, SELFPAY ==
--- NOTE | 2023-06-14 08:13 | A.OFFVIS_ITS ---
Vital Signs 06/14/23 08:26 Height 5 ft 5 in Weight 210 lb BMI 34.9 BP 129/71 Blood Pressure Location Lt brachial Position Sitting Pulse 77 Intake Visit Reasons: abdominal pain Intake Note: Patient follow up for diarrhea ad abdominal pain Patient cc: abdominal pain/bloating, between diarrhea and constipation, Nauseas and Vomit, acid reflex with burning sensation and some swallowing problems. Also patient have lab/ CT and Renal US results Member Service Representative Required: No Accompanied by: Self / Same As Patient Allergies pineapple (PINEAPPLE) Allergy (Severe, Verified 10/29/24 09:37) ANAPHYLAXIS adhesive tape Allergy (Intermediate, Verified 10/29/24 09:37) Blister Iodinated Contrast Media (IV Dye, Iodine Containing) Allergy (Intermediate, Verified 10/29/24 09:37) SOB,RASH levofloxacin (From Levaquin) Allergy (Intermediate, Verified 10/29/24 09:37) swelling/rash oxycodone (From Percocet) Allergy (Intermediate, Verified 10/29/24 09:37) rash/SOB aspirin (ASA) Adverse Reaction (Mild, Verified 10/29/24 09:37) UPSET STOMACH Medication List - Last Reconciled 06/14/23 by Sky Horton MD aluminum hydrox-magnesium carb 254-237.5 mg/5 mL (Gaviscon Extra Strength) 10 mL PO QID PRN amitriptyline 75 mg (3 x 25 mg) PO BEDTIME 60 days amlodipine 10 mg PO DAILY atorvastatin (Lipitor) 10 mg PO DAILY budesonide-formoterol 160-4.5 mcg/actuation (Symbicort) 2 puffs inhalation BID cholecalciferol (vitamin D3) 50 mcg PO DAILY 30 days clobetasol 0.05% 1 appl topical BID 4 weeks clotrimazole-betamethasone 1-0.05 % 1 appl topical BID 5 days diclofenac sodium 75 mg PO BID PRN docusate sodium 100 mg PO BID famotidine 20 mg PO BEDTIME PRN 90 days fluticasone furoate-vilanterol 200-25 mcg/dose (Breo Ellipta) 1 inh inhalation DAILY 30 days ipratropium-albuterol 0.5 mg-3 mg(2.5 mg base)/3 mL 3 mL inhalation Q4-6H PRN lisinopril 10 mg PO DAILY lorazepam 1 mg PO ONCE PRN metoprolol tartrate 100 mg PO BID 90 days omalizumab (Xolair) 300 mg (2 mL) subcut Q2W omeprazole 40 mg (2 x 20 mg) PO DAILY 90 days polyethylene glycol 3350 (Gavilax) 17 grams PO BID 60 days pyridoxine (vitamin B6) 100 mg PO DAILY pyridoxine (vitamin B6) 100 mg PO DAILY sodium,potassium,mag sulfates 17.5-3.13-1.6 gram (Suprep Bowel Prep Kit) DILUTE; drink 1/2 at 6-8 pm and half at 11 PM- 1AM sumatriptan succinate 100 mg PO DIRECTED Tirosint (levothyroxine) 175 mcg PO DAILY NS topiramate 50 mg PO BID tramadol 50 mg PO Q8H PRN umeclidinium 62.5 mcg/actuation (Incruse Ellipta) 1 inh inhalation DAILY 30 days Ventolin HFA 90 mcg/actuation (albuterol sulfate) 2 puffs inhalation Q4-6H PRN 30 days NS HPI HPI abdominal pain: Details: GI Clinic visit for this 52-year-old female for evaluation of diarrhea and abdominal bloating Pt had severe watery diarrhea which lasted for several weeks after her thyroid surgery. Pt was seen at [facility] on 12/18/22 with worsening abd pain and labs showed an elevated lipase of 118 LABS IN [facility]: 11/15 REVIEWED. ? Stool studies were negative for C Diff, calprotectin was normal and stool fat was elevated ? Stool electrolytes could not be performed since stool was formed ? Serum gastrin was elevated and normal on repeat testing after holding Omeprazole. ?IMAGING STUDIES: 03/16/22 BARIUM SWALLOW SHOWED: -Spontaneous gastroesophageal reflux to the level mid thoracicesophagus. -Bridging anterior osteophytes mid to lower cervical spine. Swellingfunction unremarkable. -No stricture, ulceration, or hiatal hernia. 01/[address] SCAN SHOWED:? 2 mm small radiopaque calculi nonobstructive lower pole right kidney? and mid pole left kidney. There are extrarenal kidney pelvises seen.? Mild constipation without obstruction. No evidence of panniculitis or diverticulitis. Small hiatal hernia.? Fatty lesion anterior body/tail of pancreas junction is stable. 02/15/2018:? ABD MRI SHOWED:Status post cholecystectomy.? No MRI evidence of intra or extrahepatic biliary obstruction, filling defects or stones.Pancreatic metrics incised are normal, no pancreatic mass found ENDOSCOPIC STUDIES: 12/22/22 EGD SHOWED:Endoscopy Findings:LARYNX: Changes suggestive of LPRD ESOPHAGUS: Hiatal hernia STOMACH: Diffuse gastritis DUODENUM: Two 2-3 mm superficial ulcers in the bulb and normal descending duodenum. Plan: Above findings were reviewed with the patient and Hiatal Hernia and PUD handouts were given in the discharge area. BIOPSIES SHOWED: A. Small bowel, biopsy: Small bowel mucosa within normal limits; preserved villous architecture and no increased intraepithelial lymphocytes seen. B. Stomach, antrum, biopsy: Gastric antral mucosa with mild reactive gastropathy; negative for Helicobacter pylori, intestinal metaplasia and dysplasia. C. Duodenum, ulcer, biopsy: Superficial fragments of duodenal mucosa within normal limits; preserved villous architecture and no increased intraepithelial lymphocytes seen. D. Stomach, body, biopsy: Gastric body mucosa within normal limits; negative for Helicobacter pylori, intestinal metaplasia and dysplasia. E. Esophagus, distal, biopsy: Squamous mucosa within normal limits; negative for inflammation (including intraepithelial eosinophils), fungal organisms, intestinal metaplasia and dysplasia 03/13/22 COLONOSCOPY SHOWED:Two small adenomatous polyps removed Moderate diverticulosis seen in the sigmoid colon Moderate hemorrhoids on retroflexed exam. Plan:? Repeat Colonoscopy in 5 yrs. 11/18/19 COLONOSCOPY SHOWED:? No polyps were detected? Random bx obtained from the colon? Moderate diverticulosis seen in the sigmoid colon? Moderate hemorrhoids on retroflexed exam.? Plan: Patient has an appointment on 12/05/19 in the GI Clinic with Mindy Alberto. ? Repeat Colonoscopy interval based on path results in 5 years if colon bxs are normal. ? BIOPSIES SHOWED: ? A. Colon, random, biopsy: Colonic mucosa within normal limits; negative for active, chronic or microscopic colitis. ? B. Rectum, biopsy: Colonic mucosa within normal limits; negative for active, chronic or microscopic colitis. ?09/2017 COLONOSCOPY SHOWED: ? Two adenomatous and one hyperplastic polyps removed ? Patchy erythmea in the descending colon - likely resolving infectious or ? ischemic colitis - possible source of rectal bleeding. ? Random biopsies obtained from the right and left colon which were normal. ? Mild diverticulosis seen in the sigmoid colon ? Small hemorrhoids on retroflexed exam. ? Plan: ? Patient has an appointment on 10/23/17 in the GI Clinic with Sky Horton M.D. ? Repeat Colonoscopy in 5 years if polyps are adenomatous ?02/04/19 EGD SHOWED: ? Esophagus: GE junction at 32 cms, small hiatal hernia 32 to 35 cms. A 1 cms focal ulcer at GE junction - likely healing MW tear or esophagitis due to GERD. ? Stomach: Moderate erythema with healing erosions in the gastric body and hemorrhagic erosions in the antrum. Biopsies were obtained. Grade 3 flap valve on retroflexed examination of the cardia. ? Duodenum: Normal bulb and descending duodenum. Biopsies obtained from 3rd part of duodenum to check for celiac sprue. BIOPSIES SHOWED: A. Small bowel, biopsy: Small bowel mucosa within normal limits; preserved villous architecture and no increase in intraepithelial lymphocytes. B. Stomach, antrum, biopsy: Gastric antral mucosa with mild chronic inactive gastritis; negative for Helicobacter pylori, intestinal metaplasia and dysplasia. C. Stomach, body, biopsy: Gastric body mucosa with mild chronic inactive gastritis; negative for Helicobacter pylori, intestinal metaplasia and dysplasia. D. Esophagus, proximal, biopsy: Squamous mucosa within normal limits; negative for inflammation, fungal organisms, intestinal metaplasia and dysplasia. TODAY'S VISIT: Patient cc: abdominal pain/bloating, between diarrhea and constipation, Nauseas and Vomit, acid reflex with burning sensation and some swallowing problems Loosing weight too fast, loosing hair, cant keep anything in her stomach. Unable to eat without vomiting or diarrhea. Constant abdominal pain. Has diarrhea alternating with constipation. No BM x 3 days Advised GFD. Pt states she tried a GFD in the past ? for 1-2 years and willing to try it again. PAST VISITS: Lab and MRI results reviewed. Vaguely recall being treated with steroids in the past (? 2006). Complains of nausea and postprandial vomiting. Has been loosing weight. Unable to go to gatherings since she always has pain. She states she now has a hernia and ulcers. She is unable to eat or drink because it feels like a lot of acid. She is having nausea as we speak and she is also dealing with her thyroid issues as well. Patient cc: abdominal pain with bloating, GERD, dysphagia and constipation. Just found out she has kidney stones in both kidneys Pt went for an open MRI and unable to have it done due to anxiety attack. She would like an antianxiety medication before the MRI I cant live with this pain any more Abd pain is getting worse. Pain gets worse when she eats or drinks anything. Pain is burning and associated with bloating and distension. Eating better. Eating fruits after freezing them a little bit. Getting excruciating HAs when she gets heartbutn. Taking Omeprazole twice a day. Has been having diarrhea for the past month and no constipation. Goes to pee and has a BM. Having 4 BMs a day with incomplete evacuation. BMs vary between watery and pudding like stools, very stinky, sometimes black and sometimes sarah color and like sand Not eating a lot and has lost 6 lbs over the past month. Notes worsening burning upper abdominal pain radiating to the back with nausea and vomiting. Feels weak and tired. Only able to drink soups. Worsening pain, bloating and distension when she tries to eat and drink. No BM since 12/15/22 - had a small BM. Attributes to not eating and getting morphine in the ED on 12/18/22. Denies fever, chills and notes sweating. Taking Pantoprazole twice a day which is not helping. EGD and bx results were reviewed with the patient Scheduled for an open MRI at [facility] during the last week of December TSH was elevated and waiting for an appt to see Endocrinology Gloria presents in the office as a follow up patient for abdominal pains. CC: She is having issues - she states she has issues with her thyroid. She is having issues with taking that medication and was told to take it with the stomach medications. 2 months ago she stopped taking her Pantoprazole and now she is unable to drink or eat anything. She is having severe pains in her stomach and severe acid reflux. She is scared because her hair has been falling out as well. Continues to have abdominal pain and bloating. Has a lot of abdominal pain. She was advised to take no medication for 2-3 hours after she takes her Levothyroxine and to take Pantoprazole later - and takes it at 2 pm. Complains of nausea and vomiting Has diarrhea with 4-5 watery stools per day - sometimes stool is like powder. Denies recent constipation. Had recurrent vomiting yesterday - containing white foamy saliva Notes increased burping, bloating and left sided abdominal pain. Seen by her import coordinator and advised she has fluid in her lungs When she goes to the bathroom to pee, she has the urge to defecate with passage of small dark stool. Still taking Omeprazole - Pantoprazole not available at the pharmacy yet - refill sent. Entire body hurts due to fibromyalgia. Started on a new medication for fibromyalgia [facility] Medical History Migraines Dysphagia Hx of flexible sigmoidoscopy Internal derangement of right shoulder Lump of left breast Chronic constipation Rotator cuff impingement syndrome of left shoulder Colitis Rotator cuff impingement syndrome Lateral epicondylitis of both elbows IBS (irritable bowel syndrome) Tendinopathy of left rotator cuff History of TIA (transient ischemic attack) Hypercholesterolemia Vitamin D deficiency Multinodular thyroid Pancreatic cyst Thyroid nodule GERD (gastroesophageal reflux disease) Hypertension Asthma Kidney stones Fibromyalgia Allergic rhinitis Sciatic nerve pain Ovarian cyst Hypothyroidism Surgical History History of carpal tunnel release (09/25/24) History of arthroscopic surgery of shoulder Hx of eye surgery History of breast lump/mass excision Hx of hemorrhoidectomy Hx of tubal ligation History of esophagogastroduodenoscopy (EGD) History of colonoscopy (~11/16/19) H/O: hysterectomy History of thyroidectomy (~11/2018) History of kidney surgery Hx of bilateral breast reduction surgery Hx of appendectomy History of cholecystectomy (~2003) H/O lithotripsy (04/30/24) Family History Father Family history of high blood pressure History of high cholesterol Mother History of diabetes mellitus Family history of high blood pressure Family history of asthma History of fibromyalgia Liver disease Maternal Grandfather Colon cancer Family/Other Breast cancer Maternal Aunt Breast cancer Family/Other Breast cancer Social History Household Members: Spouse Household Members Other:: daughter Housing: Apartment Are you a primary cna caregiver to a significant other at home: No Do you presently have visiting nurse or other home services: No Alcohol intake: never Patient Tobacco Use Status: Former Tobacco user Tobacco use type: Cigarette Years Smoked: 15 e-Cigarette/Vaping Use: Never Used Second Hand Smoke Exposure: Yes Substance Use Type: Marijuana service: No Current occupational status: disabled Current occupation: right handed Sexual orientation: Straight/Heterosexual Gender identity: Female Cognitive needs: No Hearing needs: No Vision needs: Yes Female Reproductive History Menstrual Age of Menarche: 10 Physical Exam Vital Signs: Last Vital Signs Pulse 77 06/14/23 08:26 BP 129/71 06/14/23 08:26 BMI result Body Mass Index 34.9 Const General: healthy appearing, no acute distress and anxious Nutritional Appearance: obese Orientation/consciousness: patient oriented x3 Limitations: no limitations HEENT Head: Yes normal to inspection Ears: hearing grossly normal bilaterally Eyes Sclerae: sclerae normal Pupils: Equal, round and reactive pupils present Neck Neck: Yes normal visual inspection Chest Chest palpation & inspection: normal inspection of the chest Resp Effort & Inspection: normal respiratory effort Auscultation: clear to auscultation bilaterally Cardio Palpation: normal PMI Rate: regular rate Rhythm: regular rhythm Heart sounds: S1 normal heart sound present, S2 normal heart sound present and no murmurs GI Palpation (GI): Soft to palpation, nontender and No hepatosplenomegaly present Auscultation: normal bowel sounds Rectal Exam - Female: deferred Skin General skin exam: no rashes or lesions noted Neuro General: patient oriented x3, gait normal and moves all extremities Cranial nerves: Yes Equal, round and reactive pupils present Psych Appearance: grossly normal Mental Status: mental status grossly normal Assessment & Plan Assessment & Plan (1) Irritable bowel syndrome: Code(s): K58.9 - Irritable bowel syndrome, unspecified Category: Medical (2) GERD (gastroesophageal reflux disease): Code(s): K21.9 - Gastro-esophageal reflux disease without esophagitis Category: Medical (3) Intermittent constipation: Code(s): K59.09 - Other constipation Category: Medical (4) Abdominal pain: Code(s): R10.9 - Unspecified abdominal pain Category: Medical (5) Elevated lipase: Code(s): R74.8 - Abnormal levels of other serum enzymes Category: Medical (6) 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 Abdominal pain is likely due to IBS with constipation and diarrhea. Patient notes partial improvement in symptoms with senna, she has not used a suppository or enema in the past.? She tried dicyclomine in the past and was not helpful for abdominal pain. Patient had a colonoscopy on 11/18/19? for evaluation of rectal bleeding which revealed diverticulosis and no polyps.? Random biopsies obtained from the colon were negative for inflammation. 08/2020 Anorectal manometry with balloon expulsion testing at [facility] showed: IMPRESSIONS: Borderline anal hypertension and borderline anal hypocontractility (overall anal sphincter strength lower than average for gender) Abnormal balloon expulsion with normal manometric pattern of rectoanal coordination normal rectal propulsive force and normal anal relaxation with push) This is considered an inconclusive finding that can also be seen in normal controls according to the Wu classification. Mild rectal hypersensitivity suggestive of chronic constipation She complains of constipation x 2-3 days followed by soft/watery stools lasting for half a day. ?Patient was advised to take Miralax every other day for constipation and take Rifaximin x 14 days for suspected SIBO. Takes Miralax intermittently Pt was advised to go on a clear liquid diet and take Mag Citrate to clean out her colon. Then start taking Linzess for constipation. 01/30/22 - pt was advised stool studies, start a probiotic and increase sucralfate to 3-4 times daily 03/16/22 Pt was switched from Omeprazole to Pantoprazole 40 mg twice daily and started on Amitriptyline 25 mg at bedtime. 04/28/22 Amitriptyline dose was increased to 50 mg at bedtime Pt's wt gain is likely related to elevated TSH levels - repeat TSH planned in [address] Humphrey 11/30/22 Pt complains of left sided abd pain, bloating and worsening GERD symptoms after she was advised to take the Pantoprazole later in the day and stop sucralfate due to suspected drug interaction with Levothyroxine. Pt was advised to increase pantoprazole to 40 mg twice daily and amitriptyline to 75 mg at bedtime She will be scheduled for an EGD (last EGD in 2018 showed a small hiatal hernia and gastritis - no HP on bx) - scheduled on 12/22/22. 12/21/22 Pt seen with worsening upper abdominal pain, nausea, vomiting and unable to tolerate PO food. Pt had an elevated lipase on 12/18/22 Pt advised to return to the ED for repeat labs, lipase and a CT scan with IV contrast. She will need to be admitted if lipase remains elevated for bowel rest and IVF Repeat lipase was normal. ABD CT SCAN SHOWED: PANCREAS: Edematous appearing pancreas with peripancreatic stranding. This appears more pronounced than the 08/08/2020 examination. No peripancreatic fluid collections. No dilatation of the main pancreatic duct. CT findings were reviewed with the patient. 12/22/22 EGD was performed in findings as noted above. Order placed for MRCP for FU of pancreatitis Of note pt is status post lap macy and had a normal triglyceride level a few months ago. Pt advised to schedule an appt with Endocrinology 05/03/23 Lab and MRI results reviewed. Vaguely recall being treated with steroids in the past (? 2006). Complains of nausea and postprandial vomiting. Has been loosing weight. IgG4 level was elevated at 166.8 Additional lab, urine and stool test were ordered and not done yet - pt advised to complete ADDENDUM: 05/17/23 Pt called an lab results reviewed: Having watery stools for the past two weeks with bowel accidents Notes post prandial diarrhea which is very smelly. Stool appears greasy and sometime pale with white dots. No one is sick at home. Having 1 meal a day (rice, beans, chicken, eggs and toast) and keeps loosing weight. Started on antibiotics for suspected SIBO and has been taking it without improvement in symptoms. Pt with long hx of Abd pain, diarrhea alternating with constipation initially diagnosed with IBS Enlarged pancreas on past CT and MRI showed a normal pancreas Elevated Ig G4 levels without other clinical signs of Ig G4 related disease 06/01/[address] Alegre for a 2nd opinion and additional labs were ordered and pt scheduled for EGD and colon 06/14/23 Loosing weight too fast, loosing hair, cant keep anything in her stomach. Unable to eat without vomiting or diarrhea. Constant abdominal pain. Has diarrhea alternating with constipation. No BM x 3 days Advised GFD - states she tried a GFD in the past ? for 1-2 years and willing to try it again. 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
[2023-06-14 08:26] VITALS: BP 129/71; PULSE 77; BMI 34.9
== END 2023-06-14 10:58 | disposition home or self-care (01) ==
PROVIDERS: PCP Internal Medicine; Visit Provider Internal Medicine Gastroenterology
DX: K58.9 Irritable bowel syndrome, unspecified (principal); K21.9 Gastro-esophageal reflux disease without esophagitis; K59.09 Other constipation; R10.9 Unspecified abdominal pain; R74.8 Abnormal levels of other serum enzymes; R76.8 Other specified abnormal immunological findings in serum; K63.8219 Small intestinal bacterial overgrowth, unspecified; R19.7 Diarrhea, unspecified
CPT/HCPCS: 99499

== ENCOUNTER → 2023-06-14 08:09 | Outpatient (BNVA) | payer OTHER, SELFPAY | PROVIDERS: PCP Internal Medicine; Visit Provider Internal Medicine Gastroenterology ==

== ENCOUNTER 2023-07-05 08:21 | Outpatient (AMB) | payer OTHER, SELFPAY ==
--- NOTE | 2023-07-05 08:22 | MHC.OFFVIS ---
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 Required: No Information Interpreted: non-clinical & clinical Accompanied by: Self / Same As Patient Allergies pineapple [PINEAPPLE] Allergy (Severe, Verified 07/05/23 08:24) ANAPHYLAXIS adhesive tape Allergy (Intermediate, Verified 07/05/23 08:24) Blister Iodinated Contrast Media [IV Dye, Iodine Containing] Allergy (Intermediate, Verified 07/05/23 08:24) SOB,RASH levofloxacin [From Levaquin] Allergy (Intermediate, Verified 07/05/23 08:24) swelling/rash oxycodone [From Percocet] Allergy (Intermediate, Verified 07/05/23 08:24) rash/SOB aspirin [ASA] Adverse Reaction (Mild, Verified 07/05/23 08:24) UPSET STOMACH Post menopausal: Yes HPI Comments Details: Presenting for follow-up ultrasound for pelvic pain. Urine dip last visit in 03/21 was negative. The patient described bilateral lower pelvic pain radiating to the flank, no nausea or vomiting, no fever or chills , no vaginal bleeding 03/22/2023 pelvic ultrasound showed the following: Uterus: The uterus is surgically absent. The bilateral ovaries are nonvisualized. No adnexal mass is seen. There is no pelvic ascites or fluid collection. On 05/10/2023 CT scan of abdomen pelvis showed the following: IMPRESSION: 1. No acute intra-abdominal abnormality. 2. Bilateral nonobstructing renal calculi. 3. Diffuse thoracolumbar disc degenerative change with prominent posterior osteophytes of the lower thoracic spine with spinal canal narrowing at multiple levels. The pelvic viscera portion of the CT scan was unremarkable On 05/25/2023 renal ultrasound showed the following: IMPRESSION: * Mild left hydronephrosis. No proximal obstructing stone. * Bilateral nonobstructing nephrolithiasis. The patient has an appointment with Urology today [facility] Medical History Dysphagia Diarrhea Well woman exam Abnormal finding on EKG Hx of flexible sigmoidoscopy Internal derangement of right shoulder Lump of left breast Lump of right breast Lump of axillary tail of right breast Chronic constipation Rotator cuff impingement syndrome of left shoulder Right forearm pain Colitis Hypertensive urgency Rotator cuff impingement syndrome Lateral epicondylitis of both elbows Fall IBS (irritable bowel syndrome) Abdominal bloating Tendinopathy of left rotator cuff History of TIA (transient ischemic attack) Hypercholesterolemia Vitamin D deficiency Multinodular thyroid Pancreatic cyst Constipation Thyroid nodule Diarrhea Rectal bleeding Esophageal spasm GERD (gastroesophageal reflux disease) Hypertension Asthma Kidney stones History of migraine headaches Fibromyalgia Allergic rhinitis Sciatic nerve pain Ovarian cyst Hypothyroidism Surgical History History of arthroscopic surgery of shoulder Hx of eye surgery History of breast lump/mass excision Hx of hemorrhoidectomy Hx of tubal ligation History of esophagogastroduodenoscopy (EGD) History of colonoscopy (~11/16/19) H/O: hysterectomy History of thyroidectomy (~11/2018) History of kidney surgery Hx of bilateral breast reduction surgery Hx of appendectomy History of cholecystectomy (~2003) H/O lithotripsy Family History Father Family history of high blood pressure History of high cholesterol Mother History of diabetes mellitus Family history of high blood pressure Family history of asthma History of fibromyalgia Liver disease Maternal Grandfather Colon cancer Family/Other Breast cancer Social History Household Members: Spouse Household Members Other:: daughter Housing: Apartment Are you a primary assistant child care teacher to a significant other at home: No Do you presently have visiting nurse or other home services: No Alcohol intake: never Patient Tobacco Use Status: Former Tobacco user Quit Date: 2013 Tobacco use type: Cigarette Years Smoked: 15 e-Cigarette/Vaping Use: Never Used Second Hand Smoke Exposure: No Substance Use Type: Marijuana service: No Current occupational status: disabled Current occupation: right handed Sexual orientation: Straight/Heterosexual Gender identity: Female Cognitive needs: No Hearing needs: No Vision needs: Yes Female Reproductive History Menstrual Age of Menarche: 10 Review of Systems Const All systems reviewed & are unremarkable except as noted in HPI and below Reports as per HPI and Reports no additional complaints GI Reports no additional complaints Reports no additional complaints Physical Exam Vital Signs: Last Vital Signs BP 110/70 07/05/23 08:24 BMI result Body Mass Index 34.8 Assessment & Plan Assessment & Plan (1) Pelvic pain: Comment: Bilateral nonobstructing renal calculi with left hydronephrosis Code(s): R10.2 - Pelvic and perineal pain Category: Medical Plan: Discussed with the patient the results the pelvic ultrasound, renal ultrasound and CT scan showing bilateral nonobstructing kidney stones with left hydronephrosis, recommended follow-up with Urology, if kidney stones are treated and pelvic pain persists to contact our office for further management. All questions answered, the patient verbalized understand Coding Level of Care Code Est Pt Level 3 (75847) Diagnoses Pelvic pain R10.2
[2023-07-05 08:24] VITALS: BP 110/70; BMI 34.8
== END 2023-07-05 08:32 | disposition home or self-care (01) ==
LOC: HO.HWS 08:21
PROVIDERS: PCP Internal Medicine; Visit Provider Obstetrics & Gynecology
DX: R10.2 Pelvic and perineal pain (principal)
CPT/HCPCS: 99213

== ENCOUNTER → 2023-07-05 08:21 | Outpatient (BNVA) | payer OTHER, SELFPAY | PROVIDERS: PCP Internal Medicine; Visit Provider Obstetrics & Gynecology | DX: R10.2 Pelvic and perineal pain (principal) | CPT/HCPCS: 99212 ==

== ENCOUNTER 2023-07-05 09:45 | Outpatient (AMB) | payer OTHER, SELFPAY ==
[2023-07-05 10:10] VITALS: BP 128/92; PULSE 93; O2SAT 96; BMI 35.8
--- NOTE | 2023-07-05 10:10 | HO.NEPHOV_ITS ---
Vital Signs 07/05/23 10:10 Height 5 ft 5 in Weight 215 lb BMI 35.8 BP 128/92 H Blood Pressure Location Rt brachial Position Sitting Pulse 93 Pulse Source Pulse Oximeter Pulse Oximetry (%) 96 Oxygen Delivery Method Room Air Intake Visit Reasons: Internal referral- DX Kidney stones/ Confirmed Help Desk Analyst Required: No Accompanied by: Self / Same As Patient Allergies pineapple [PINEAPPLE] Allergy (Severe, Verified 07/05/23 10:12) ANAPHYLAXIS adhesive tape Allergy (Intermediate, Verified 07/05/23 10:12) Blister Iodinated Contrast Media [IV Dye, Iodine Containing] Allergy (Intermediate, Verified 07/05/23 10:12) SOB,RASH levofloxacin [From Levaquin] Allergy (Intermediate, Verified 07/05/23 10:12) swelling/rash oxycodone [From Percocet] Allergy (Intermediate, Verified 07/05/23 10:12) rash/SOB aspirin [ASA] Adverse Reaction (Mild, Verified 07/05/23 10:12) UPSET STOMACH HPI Comments Details: Ivonne is a 52-year-old woman with a history of renal stones. She is multiple medical problems including migraine. She has been on Topamax for quite some time. Recently she had imaging studies which showed 5 mm stone on the right kidney and and a 3 mm stone in the left kidney. There was mild left-sided hydronephrosis She has been followed by urologist as well She complains of back pain. She has some burning while urinating. No hematuria. She has not passed any kidney stones. No fever no rash. No edema. [facility] Medical History Dysphagia Diarrhea Well woman exam Abnormal finding on EKG Hx of flexible sigmoidoscopy Internal derangement of right shoulder Lump of left breast Lump of right breast Lump of axillary tail of right breast Chronic constipation Rotator cuff impingement syndrome of left shoulder Right forearm pain Colitis Hypertensive urgency Rotator cuff impingement syndrome Lateral epicondylitis of both elbows Fall IBS (irritable bowel syndrome) Abdominal bloating Tendinopathy of left rotator cuff History of TIA (transient ischemic attack) Hypercholesterolemia Vitamin D deficiency Multinodular thyroid Pancreatic cyst Constipation Thyroid nodule Diarrhea Rectal bleeding Esophageal spasm GERD (gastroesophageal reflux disease) Hypertension Asthma Kidney stones History of migraine headaches Fibromyalgia Allergic rhinitis Sciatic nerve pain Ovarian cyst Hypothyroidism Surgical History History of arthroscopic surgery of shoulder Hx of eye surgery History of breast lump/mass excision Hx of hemorrhoidectomy Hx of tubal ligation History of esophagogastroduodenoscopy (EGD) History of colonoscopy (~11/16/19) H/O: hysterectomy History of thyroidectomy (~11/2018) History of kidney surgery Hx of bilateral breast reduction surgery Hx of appendectomy History of cholecystectomy (~2003) H/O lithotripsy Family History Father Family history of high blood pressure History of high cholesterol Mother History of diabetes mellitus Family history of high blood pressure Family history of asthma History of fibromyalgia Liver disease Maternal Grandfather Colon cancer Family/Other Breast cancer Social History Household Members: Spouse Household Members Other:: daughter Housing: Apartment Are you a primary care transition coordinator to a significant other at home: No Do you presently have visiting nurse or other home services: No Alcohol intake: never Patient Tobacco Use Status: Former Tobacco user Quit Date: 2013 Tobacco use type: Cigarette Years Smoked: 15 e-Cigarette/Vaping Use: Never Used Second Hand Smoke Exposure: No Substance Use Type: Marijuana service: No Current occupational status: disabled Current occupation: right handed Sexual orientation: Straight/Heterosexual Gender identity: Female Cognitive needs: No Hearing needs: No Vision needs: Yes Female Reproductive History Menstrual Age of Menarche: 10 Physical Exam Vital Signs: Last Vital Signs Pulse 93 07/05/23 10:10 BP 128/92 H 07/05/23 10:10 Pulse Ox 96 07/05/23 10:10 Oxygen Delivery Method Room Air 07/05/23 10:10 BMI result Body Mass Index 35.8 Const General: comfortable Nutritional Appearance: well nourished Orientation/consciousness: patient oriented x3 HEENT Head: No normal to inspection Mouth: moist mucous membranes Neck Neck: Yes supple and Yes no JVD Resp Auscultation: clear to auscultation bilaterally, no rales and rub present Cardio Jugular venous distension: no JVD Palpation: no palpable S3 and no palpable S4 Heart sounds: no rubs GI Palpation (GI): Soft to palpation and nontender Percussion: No Fluid wave present General: Yes no CVA tenderness Back/Spine/Pelvis Back: no CVA tenderness Skin General skin exam: no rashes or lesions noted Neuro General: patient oriented x3 Extrem General: Yes no pedal edema and No clubbing Results Reviewed Results Reviewed: 05/14/2023 RIGHT KIDNEY: 12.6 x 4.8 x 5.7 cm (SAG x AP x TRV). The kidney is normal in size, contour, and echogenicity. Renal cortical thickness is normal. No focal parenchymal lesions. Nonobstructing 5 mm stone. LEFT KIDNEY: 11.7 x 5.7 x 4.7 cm (SAG x AP x TRV). The kidney is normal in size, contour, and echogenicity. Renal cortical thickness is normal. No focal parenchymal lesions. Mild hydronephrosis. No proximal obstructing stone. Nonobstructing 3 mm stone is noted. US/US renal BI IMPRESSION: * Mild left hydronephrosis. No proximal obstructing stone. * Bilateral nonobstructing nephrolithiasis. Nephrology Results: Hgb 15.5 g/dl (12.0-16.0) 06/01/23 WBC 7.0 X10*3/uL (4.8-10.8) 06/01/23 Plt Count 288 X10*3/uL (160-400) 06/01/23 Sodium 142 mmol/L (135-145) 06/01/23 Potassium 3.7 mmol/L (3.3-5.1) 06/01/23 Chloride 108 mmol/L (96-108) 06/01/23 Carbon Dioxide 25 mmol/L (22-29) 06/01/23 BUN 16 mg/dL (9-16) 06/01/23 Creatinine 0.62 mg/dL (0.5-1.4) 06/01/23 Calcium 9.7 mg/dL (8.4-10.2) 06/01/23 Urine Protein Negative mg/dL (Neg-Trace) 06/01/23 Renal US 05/14/23 Assessment & Plan Assessment & Plan (1) Kidney stones: Code(s): N20.0 - Calculus of kidney Category: Medical Plan 52-year-old woman with a history of migraine who has been on Topamax has had multiple renal stones. I have initiated a workup for nephrolithiasis including a 24 urine collection. Topamax could be a contributing factor by inhibiting carbonic anhydrase and can precipitate forming stones. Recommendation Discontinue Topamax. Stay on low-sodium diet. Increase p.o. fluid intake to maintain urine output of 2 L. Increase citrate ingestion. She could take Tylenol p.r.n. for back pain. Returned to the office after the baseline workup is completed and further management will be based on the outcome of the 24 hour urine collection. Orders: Orders Oxalate, 24 Hr Today N20.0 - Calculus of kidney Calcium, 24 Hr Ur Today N20.0 - Calculus of kidney Citric Acid 24hr Urine Today N20.0 - Calculus of kidney Uric Acid, 24Hr Urine Group Today N20.0 - Calculus of kidney Creatinine, 24 Hr Group Today N20.0 - Calculus of kidney Vitamin D 25-OH (D2 and D3) Today N20.0 - Calculus of kidney Parathyroid Hormone Intact Today N20.0 - Calculus of kidney Sodium, 24Hr Urine Group Today N20.0 - Calculus of kidney Uric Acid Today N20.0 - Calculus of kidney Medications: Discontinued tramadol Discontinued Reason: Doctor's Order 50 mg PO Q8H PRN 10 tabs 0RF pain Coding Level of Care Code New Pt Level 4 (54330) Diagnoses Kidney stones N20.0
== END 2023-07-05 10:48 | disposition home or self-care (01) ==
PROVIDERS: PCP Internal Medicine; Visit Provider Internal Medicine Hypertension Specialist
DX: N20.0 Calculus of kidney (principal)
CPT/HCPCS: 99204

== ENCOUNTER → 2023-07-05 09:45 | Outpatient (BNVA) | payer OTHER, SELFPAY | PROVIDERS: PCP Internal Medicine; Visit Provider Internal Medicine Hypertension Specialist | DX: N20.0 Calculus of kidney (principal) | CPT/HCPCS: 99202 ==

== ENCOUNTER 2023-07-12 12:00 | Outpatient (REF) | payer OTHER, SELFPAY ==
[2023-07-12 13:54] LABS: Free T4 (Free Thyroxine) 0.79 ng/dL (0.71-1.85); Thyroid Stimulating Hormone 1.71 uIU/mL (0.32-4.0)
[2023-07-12 13:54] LABS: Total Volume 24 Hour Urine 1225 mL
[2023-07-12 14:37] LABS: Creatinine, 24Hr Urine 1.7 G/Day (1.0-2.0); Creatinine, mg/dL 134.94; Sodium 24 Hr Urine 118.8 mmol/Day (40-220)
[2023-07-12 14:43] LABS: Creatinine, 24Hr Urine 1.6 G/Day (1.0-2.0); Creatinine, mg/dL 132.87; Uric Acid, 24 Hr Urine 606.4 mg/Day (250-750); Uric Acid, mg/dL 49.5 mg/dL
[2023-07-13 18:39] LABS: Calcium, 24 Hr Urine 130 mg/24 h; Calcium/Creatinine Ratio 81 mg/g creat (30-275)
[2023-07-16 16:13] LABS: Vitamin D 25-OH, D2 <4 ng/mL; Vitamin D 25-OH, D3 19 ng/mL; Vitamin D 25-OH, Total 19 ng/mL (30-100)
[2023-07-17 04:54] LABS: 24hr Urine Total Volume 1225 mL; Oxalic Acid 24 Urine 49.9 mg/24 h (3.6-38.0)
[2023-07-22 22:13] LABS: Citric Acid, 24hr Urine 590 mg/24 h (100-1300); Citric Acid/Creat Ratio 24U 364 mg/g creat (180-1070)
== END 2023-07-12 12:01 | disposition home or self-care (01) ==
LOC: HO.10HDL 12:00
PROVIDERS: Internal Medicine Endocrinology, Diabetes & Metabolism; Visit Provider Internal Medicine Hypertension Specialist
DX: N20.0 Calculus of kidney (principal); E89.0 Postprocedural hypothyroidism
CPT/HCPCS: 36415; 82306; 82340; 82507; 83945; 83970; 84300; 84439; 84443; 84560

== ENCOUNTER 2023-07-24 11:44 | Outpatient (AMB) | payer OTHER, SELFPAY ==
[2023-07-24 11:47] VITALS: BP 134/92; BMI 36.3
--- NOTE | 2023-07-24 11:47 | HO.NEPHOV ---
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: No Accompanied by: Self / Same As Patient Allergies pineapple [PINEAPPLE] Allergy (Severe, Verified 07/24/23 11:49) ANAPHYLAXIS adhesive tape Allergy (Intermediate, Verified 07/24/23 11:49) Blister Iodinated Contrast Media [IV Dye, Iodine Containing] Allergy (Intermediate, Verified 07/24/23 11:49) SOB,RASH levofloxacin [From Levaquin] Allergy (Intermediate, Verified 07/24/23 11:49) swelling/rash oxycodone [From Percocet] Allergy (Intermediate, Verified 07/24/23 11:49) rash/SOB aspirin [ASA] Adverse Reaction (Mild, Verified 07/24/23 11:49) UPSET STOMACH HPI Comments Details: Ivonne is a 52-year-old woman with a history of renal stones. She is multiple medical problems including migraine. She has been on Topamax for quite some time. Recently she had imaging studies which showed 5 mm stone on the right kidney and and a 3 mm stone in the left kidney. There was mild left-sided hydronephrosis She has been followed by urologist as well She complains of back pain. She has some burning while urinating. No hematuria. She has not passed any kidney stones. No fever no rash. No edema. [facility] Medical History Dysphagia Diarrhea Well woman exam Abnormal finding on EKG Hx of flexible sigmoidoscopy Internal derangement of right shoulder Lump of left breast Lump of right breast Lump of axillary tail of right breast Chronic constipation Rotator cuff impingement syndrome of left shoulder Right forearm pain Colitis Hypertensive urgency Rotator cuff impingement syndrome Lateral epicondylitis of both elbows Fall IBS (irritable bowel syndrome) Abdominal bloating Tendinopathy of left rotator cuff History of TIA (transient ischemic attack) Hypercholesterolemia Vitamin D deficiency Multinodular thyroid Pancreatic cyst Constipation Thyroid nodule Diarrhea Rectal bleeding Esophageal spasm GERD (gastroesophageal reflux disease) Hypertension Asthma Kidney stones History of migraine headaches Fibromyalgia Allergic rhinitis Sciatic nerve pain Ovarian cyst Hypothyroidism Surgical History History of arthroscopic surgery of shoulder Hx of eye surgery History of breast lump/mass excision Hx of hemorrhoidectomy Hx of tubal ligation History of esophagogastroduodenoscopy (EGD) History of colonoscopy (~11/16/19) H/O: hysterectomy History of thyroidectomy (~11/2018) History of kidney surgery Hx of bilateral breast reduction surgery Hx of appendectomy History of cholecystectomy (~2003) H/O lithotripsy Family History Father Family history of high blood pressure History of high cholesterol Mother History of diabetes mellitus Family history of high blood pressure Family history of asthma History of fibromyalgia Liver disease Maternal Grandfather Colon cancer Family/Other Breast cancer Social History Household Members: Spouse Household Members Other:: daughter Housing: Apartment Are you a primary rn care transition to a significant other at home: No Do you presently have visiting nurse or other home services: No Alcohol intake: never Patient Tobacco Use Status: Former Tobacco user Quit Date: 2013 Tobacco use type: Cigarette Years Smoked: 15 e-Cigarette/Vaping Use: Never Used Second Hand Smoke Exposure: No Substance Use Type: Marijuana service: No Current occupational status: disabled Current occupation: right handed Sexual orientation: Straight/Heterosexual Gender identity: Female Cognitive needs: No Hearing needs: No Vision needs: Yes Female Reproductive History Menstrual Age of Menarche: 10 Physical Exam Vital Signs: Last Vital Signs BP 134/92 H 07/24/23 11:47 BMI result Body Mass Index 36.3 Results Reviewed Nephrology Results: Hgb 15.5 g/dl (12.0-16.0) 06/01/23 WBC 7.0 X10*3/uL (4.8-10.8) 06/01/23 Plt Count 288 X10*3/uL (160-400) 06/01/23 Sodium 142 mmol/L (135-145) 06/01/23 Potassium 3.7 mmol/L (3.3-5.1) 06/01/23 Chloride 108 mmol/L (96-108) 06/01/23 Carbon Dioxide 25 mmol/L (22-29) 06/01/23 BUN 16 mg/dL (9-16) 06/01/23 Creatinine 0.62 mg/dL (0.5-1.4) 06/01/23 Calcium 9.7 mg/dL (8.4-10.2) 06/01/23 PTH Intact 52.0 pg/mL (8.7-77.1) 07/12/23 Urine Protein Negative mg/dL (Neg-Trace) 06/01/23 Assessment & Plan Assessment & Plan (1) Kidney stones: Code(s): N20.0 - Calculus of kidney Category: Medical Plan 52-year-old woman with a history of migraine who has been on Topamax has had multiple renal stones. I have initiated a workup for nephrolithiasis including a 24 urine collection. Topamax could be a contributing factor by inhibiting carbonic anhydrase and can precipitate forming stones. Discontinue Topamax. Stay on low-sodium diet. Increase p.o. fluid intake to maintain urine output of 2 L. Increase citrate ingestion. Decrease Oxalate intake- Gave instructions She could take Tylenol p.r.n. for back pain. Mild left hydro on sonogram in April 2023 Shall obtain a follow up sonogram Orders: Orders US renal BI 3 Months N20.0 - Calculus of kidney Coding Level of Care Code Est Pt Level 4 (85780) Diagnoses Kidney stones N20.0
== END 2023-07-24 12:07 | disposition home or self-care (01) ==
PROVIDERS: PCP Internal Medicine; Visit Provider Internal Medicine Hypertension Specialist
DX: N20.0 Calculus of kidney (principal)
CPT/HCPCS: 99214

== ENCOUNTER → 2023-07-24 11:44 | Outpatient (BNVA) | payer OTHER, SELFPAY | PROVIDERS: PCP Internal Medicine; Visit Provider Internal Medicine Hypertension Specialist | DX: N20.0 Calculus of kidney (principal) | CPT/HCPCS: 99212 ==

== ENCOUNTER 2023-08-02 08:29 | Outpatient (AMB) | payer OTHER, SELFPAY ==
--- NOTE | 2023-08-02 08:46 | A.OFFVIS_ITS ---
Vital Signs 08/02/23 08:51 Height 5 ft 5 in Weight 198 lb BMI 32.9 BP 141/100 H Blood Pressure Location Lt brachial Position Sitting Pulse 103 H Intake Visit Reasons: diarrhea Intake Note: Patient follow up for diarrhea. Patient cc: abdominal pain/bloating, GERD with burning sensation,between diarrhea and constipation, water is coming with burps and she can not breath when that happened to her, also she is not eating well due the abdominal pain/loosing weight. 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: No Accompanied by: Self / Same As Patient Allergies pineapple (PINEAPPLE) Allergy (Severe, Verified 10/30/24 08:35) ANAPHYLAXIS adhesive tape Allergy (Intermediate, Verified 10/30/24 08:35) Blister Iodinated Contrast Media (IV Dye, Iodine Containing) Allergy (Intermediate, Verified 10/30/24 08:35) SOB,RASH levofloxacin (From Levaquin) Allergy (Intermediate, Verified 10/30/24 08:35) swelling/rash oxycodone (From Percocet) Allergy (Intermediate, Verified 10/30/24 08:35) rash/SOB aspirin (ASA) Adverse Reaction (Mild, Verified 10/30/24 08:35) UPSET STOMACH Medication List - Last Reconciled 08/02/23 by Sky Horton MD aluminum hydrox-magnesium carb 254-237.5 mg/5 mL (Gaviscon Extra Strength) 10 mL PO QID PRN amlodipine 10 mg PO DAILY atorvastatin (Lipitor) 10 mg PO DAILY budesonide-formoterol 160-4.5 mcg/actuation (Symbicort) 2 puffs inhalation BID cholecalciferol (vitamin D3) (Vitamin D3) 50 mcg PO DAILY clobetasol 0.05% 1 appl topical BID 4 weeks clotrimazole-betamethasone 1-0.05 % 1 appl topical BID 5 days diclofenac sodium 75 mg PO BID PRN docusate sodium 100 mg PO BID famotidine 20 mg PO BEDTIME PRN 90 days fluticasone furoate-vilanterol 200-25 mcg/dose (Breo Ellipta) 1 inh inhalation DAILY 30 days ipratropium-albuterol 0.5 mg-3 mg(2.5 mg base)/3 mL 3 mL inhalation Q4-6H PRN lisinopril 10 mg PO DAILY lorazepam 1 mg PO ONCE PRN metoprolol tartrate 100 mg PO BID 90 days omalizumab (Xolair) 300 mg (2 mL) subcut Q2W omeprazole 40 mg (2 x 20 mg) PO DAILY polyethylene glycol 3350 (Gavilax) 17 grams PO BID 60 days pyridoxine (vitamin B6) 100 mg PO DAILY sodium,potassium,mag sulfates 17.5-3.13-1.6 gram (Suprep Bowel Prep Kit) DILUTE; drink 1/2 at 6-8 pm and half at 11 PM- 1AM Tirosint (levothyroxine) 175 mcg PO DAILY NS umeclidinium 62.5 mcg/actuation (Incruse Ellipta) 1 inh inhalation DAILY 30 days Ventolin HFA 90 mcg/actuation (albuterol sulfate) 2 puffs inhalation Q4-6H PRN 30 days NS HPI HPI diarrhea: Details: GI Clinic visit for this 52-year-old female for evaluation of diarrhea and abdominal bloating Pt had severe watery diarrhea which lasted for several weeks after her thyroid surgery. [place] [facility] [place] with worsening abd pain and labs showed an elevated lipase of 118 LABS [facility]: 11/15 REVIEWED. ? Stool studies were negative for C Diff, calprotectin was normal and stool fat was elevated ? Stool electrolytes could not be performed since stool was formed ? Serum gastrin was elevated and normal on repeat testing after holding Omeprazole. ?IMAGING STUDIES: 03/16/22 BARIUM SWALLOW SHOWED: -Spontaneous gastroesophageal reflux to the level mid thoracicesophagus. -Bridging anterior osteophytes mid to lower cervical spine. Swellingfunction unremarkable. -No stricture, ulceration, or hiatal hernia. 01/[address] SCAN SHOWED:? 2 mm small radiopaque calculi nonobstructive lower pole right kidney? and mid pole left kidney. There are extrarenal kidney pelvises seen.? Mild constipation without obstruction. No evidence of panniculitis or diverticulitis. Small hiatal hernia.? Fatty lesion anterior body/tail of pancreas junction is stable. 02/15/2018:? ABD MRI SHOWED:Status post cholecystectomy.? No MRI evidence of intra or extrahepatic biliary obstruction, filling defects or stones.Pancreatic metrics incised are normal, no pancreatic mass found ENDOSCOPIC STUDIES: 12/22/22 EGD SHOWED:Endoscopy Findings:LARYNX: Changes suggestive of LPRD ESOPHAGUS: Hiatal hernia STOMACH: Diffuse gastritis DUODENUM: Two 2-3 mm superficial ulcers in the bulb and normal descending duodenum. Plan: Above findings were reviewed with the patient and Hiatal Hernia and PUD handouts were given in the discharge area. BIOPSIES SHOWED: A. Small bowel, biopsy: Small bowel mucosa within normal limits; preserved villous architecture and no increased intraepithelial lymphocytes seen. B. Stomach, antrum, biopsy: Gastric antral mucosa with mild reactive gastropathy; negative for Helicobacter pylori, intestinal metaplasia and dysplasia. C. Duodenum, ulcer, biopsy: Superficial fragments of duodenal mucosa within normal limits; preserved villous architecture and no increased intraepithelial lymphocytes seen. D. Stomach, body, biopsy: Gastric body mucosa within normal limits; negative for Helicobacter pylori, intestinal metaplasia and dysplasia. E. Esophagus, distal, biopsy: Squamous mucosa within normal limits; negative for inflammation (including intraepithelial eosinophils), fungal organisms, intestinal metaplasia and dysplasia 03/13/22 COLONOSCOPY SHOWED: Two small adenomatous polyps removed Moderate diverticulosis seen in the sigmoid colon Moderate hemorrhoids on retroflexed exam. Plan:? Repeat Colonoscopy in 5 yrs. 11/18/19 COLONOSCOPY SHOWED:? No polyps were detected? Random bx obtained from the colon? Moderate diverticulosis seen in the sigmoid colon? Moderate hemorrhoids on retroflexed exam.? Plan: Patient has an appointment on 12/05/19 in the GI Clinic with Sky Horton. Repeat Colonoscopy interval based on path results in 5 years if colon bxs are normal BIOPSIES SHOWED: ? A. Colon, random, biopsy: Colonic mucosa within normal limits; negative f or active, chronic or microscopic colitis. ? B. Rectum, biopsy: Colonic mucosa within normal limits; negative for active, chronic or microscopic colitis. ?09/2017 COLONOSCOPY SHOWED: ? Two adenomatous and one hyperplastic polyps removed ? Patchy erythmea in the descending colon - likely resolving infectious or ? ischemic colitis - possible source of rectal bleeding. ? Random biopsies obtained from the right and left colon which were normal. ? Mild diverticulosis seen in the sigmoid colon ? Small hemorrhoids on retroflexed exam. ? Plan: ? Patient has an appointment on 10/23/17 in the GI Clinic with Sky Horton M.D. ? Repeat Colonoscopy in 5 years if polyps are adenomatous ?02/04/19 EGD SHOWED: ? Esophagus: GE junction at 32 cms, small hiatal hernia 32 to 35 cms. A 1 cms focal ulcer at GE junction - likely healing MW tear or esophagitis due to GERD. ? Stomach: Moderate erythema with healing erosions in the gastric body and hemorrhagic erosions in the antrum. Biopsies were obtained. Grade 3 flap valve on retroflexed examination of the cardia. ? Duodenum: Normal bulb and descending duodenum. Biopsies obtained from 3rd part of duodenum to check for celiac sprue. BIOPSIES SHOWED: A. Small bowel, biopsy: Small bowel mucosa within normal limits; preserved villous architecture and no increase in intraepithelial lymphocytes. B. Stomach, antrum, biopsy: Gastric antral mucosa with mild chronic inactive gastritis; negative for Helicobacter pylori, intestinal metaplasia and dysplasia. C. Stomach, body, biopsy: Gastric body mucosa with mild chronic inactive gastritis; negative for Helicobacter pylori, intestinal metaplasia and dysplasia. D. Esophagus, proximal, biopsy: Squamous mucosa within normal limits; negative for inflammation, fungal organisms, intestinal metaplasia and dysplasia. TODAY'S VISIT: Patient cc: abdominal pain/bloating, GERD with burning sensation,between diarrhea and constipation, water is coming with burps and she can not breath when that happened to her, also she is not eating well due the abdominal pain/loosing weight. Denies any change in symptoms Constantly burping associated with regurgitation of liquids and feels like she is drowning Taking Omeprazole and is working a little bit. Hardly eat since has nausea and abdominal pain when she eats Horrible nausea Has diarrhea alternating with constipation. Denies having a normal BM in years Unable to sleep at night due to regurgitation. Sleeping side ways with the pillow elevated. PAST VISITS: Nauseas and Vomit, acid reflex with burning sensation and some swallowing problems Loosing weight too fast, loosing hair, cant keep anything in her stomach. Unable to eat without vomiting or diarrhea. Constant abdominal pain. Has diarrhea alternating with constipation. No BM x 3 days Advised GFD. Pt states she tried a GFD in the past ? for 1-2 years and willing to try it again. PAST VISITS: Lab and MRI results reviewed. Vaguely recall being treated with steroids in the past (? 2006). Complains of nausea and postprandial vomiting. Has been loosing weight. Unable to go to gatherings since she always has pain. She states she now has a hernia and ulcers. She is unable to eat or drink because it feels like a lot of acid. She is having nausea as we speak and she is also dealing with her thyroid issues as well. Pt went for an open MRI and unable to have it done due to anxiety attack. She would like an antianxiety medication before the MRI I cant live with this pain any more Abd pain is getting worse. Pain gets worse when she eats or drinks anything. Pain is burning and associated with bloating and distension. Eating better. Eating fruits after freezing them a little bit. Getting excruciating HAs when she gets heartbutn. Taking Omeprazole twice a day. Has been having diarrhea for the past month and no constipation. Goes to pee and has a BM. Having 4 BMs a day with incomplete evacuation. BMs vary between watery and pudding like stools, very stinky, sometimes black and sometimes sarah color and like sand Not eating a lot and has lost 6 lbs over the past month. Notes worsening burning upper abdominal pain radiating to the back with nausea and vomiting. Feels weak and tired. Only able to drink soups. Worsening pain, bloating and distension when she tries to eat and drink. No BM since 12/15/22 - had a small BM. Attributes to not eating and getting morphine in the ED on 12/18/22. Denies fever, chills and notes sweating. Taking Pantoprazole twice a day which is not helping. EGD and bx results were reviewed with the patient Scheduled for an open MRI at [facility] during the last week of December TSH was elevated and waiting for an appt to see Endocrinology Gloria presents in the office as a follow up patient for abdominal pains. CC: She is having issues - she states she has issues with her thyroid. She is having issues with taking that medication and was told to take it with the stomach medications. 2 months ago she stopped taking her Pantoprazole and now she is unable to drink or eat anything. She is having severe pains in her stomach and severe acid reflux. She is scared because her hair has been falling out as wel [facility] Medical History Migraines Dysphagia Hx of flexible sigmoidoscopy Internal derangement of right shoulder Lump of left breast Chronic constipation Rotator cuff impingement syndrome of left shoulder Colitis Rotator cuff impingement syndrome Lateral epicondylitis of both elbows IBS (irritable bowel syndrome) Tendinopathy of left rotator cuff History of TIA (transient ischemic attack) Hypercholesterolemia Vitamin D deficiency Multinodular thyroid Pancreatic cyst Thyroid nodule GERD (gastroesophageal reflux disease) Hypertension Asthma Kidney stones Fibromyalgia Allergic rhinitis Sciatic nerve pain Ovarian cyst Hypothyroidism Surgical History History of carpal tunnel release (09/25/24) History of arthroscopic surgery of shoulder Hx of eye surgery History of breast lump/mass excision Hx of hemorrhoidectomy Hx of tubal ligation History of esophagogastroduodenoscopy (EGD) History of colonoscopy (~11/16/19) H/O: hysterectomy History of thyroidectomy (~11/2018) History of kidney surgery Hx of bilateral breast reduction surgery Hx of appendectomy History of cholecystectomy (~2003) H/O lithotripsy (04/30/24) Family History Father Family history of high blood pressure History of high cholesterol Mother History of diabetes mellitus Family history of high blood pressure Family history of asthma History of fibromyalgia Liver disease Maternal Grandfather Colon cancer Family/Other Breast cancer Maternal Aunt Breast cancer Family/Other Breast cancer Social History Household Members: Spouse Household Members Other:: daughter Housing: Apartment Are you a primary care connector to a significant other at home: No Do you presently have visiting nurse or other home services: No Alcohol intake: never Patient Tobacco Use Status: Former Tobacco user Tobacco use type: Cigarette Years Smoked: 15 e-Cigarette/Vaping Use: Never Used Second Hand Smoke Exposure: Yes Substance Use Type: Marijuana service: No Current occupational status: disabled Current occupation: right handed Sexual orientation: Straight/Heterosexual Gender identity: Female Cognitive needs: No Hearing needs: No Vision needs: Yes Female Reproductive History Menstrual Age of Menarche: 10 Review of Systems Const All systems reviewed & are unremarkable except as noted in HPI and below Physical Exam Vital Signs: Last Vital Signs Pulse 103 H 08/02/23 08:51 BP 141/100 H 08/02/23 08:51 BMI result Body Mass Index 32.9 Const General: healthy appearing and no acute distress Nutritional Appearance: obese Orientation/consciousness: patient oriented x3 Limitations: no limitations HEENT Head: Yes normal to inspection Ears: hearing grossly normal bilaterally Eyes Sclerae: sclerae normal Pupils: Equal, round and reactive pupils present Neck Neck: Yes normal visual inspection Chest Chest palpation & inspection: normal inspection of the chest Resp Effort & Inspection: normal respiratory effort Auscultation: clear to auscultation bilaterally Cardio Palpation: normal PMI Rate: regular rate Rhythm: regular rhythm Heart sounds: S1 normal heart sound present, S2 normal heart sound present and no murmurs GI Palpation (GI): Soft to palpation, nontender and No hepatosplenomegaly present Auscultation: normal bowel sounds Rectal Exam - Female: deferred Skin General skin exam: no rashes or lesions noted Neuro General: patient oriented x3, gait normal and moves all extremities Cranial nerves: Yes Equal, round and reactive pupils present Psych Appearance: grossly normal Mental Status: mental status grossly normal Assessment & Plan Assessment & Plan (1) Elevated immunoglobulin A: Code(s): R76.8 - Other specified abnormal immunological findings in serum Category: Medical (2) Abdominal pain: Code(s): R10.9 - Unspecified abdominal pain Category: Medical (3) 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: Code(s): R76.8 - Other specified abnormal immunological findings in serum Category: Medical Plan 52 YF with htn, fibromyalgia, asthma, migraine BROWNE with long history of abdominal pain associated with diarrhea and bloating, constipation alternating with diarrhea with symptoms suggestive of outlet delay. Abdominal pain is likely due to IBS with constipation and diarrhea. Patient notes partial improvement in symptoms with senna, she has not used a suppository or enema in the past.? She tried dicyclomine in the past and was not helpful for abdominal pain. Patient had a colonoscopy on 11/18/19? for evaluation of rectal bleeding which revealed diverticulosis and no polyps.? Random biopsies obtained from the colon were negative for inflammation. 08/2020 Anorectal manometry with balloon expulsion testing [place] [facility] [place] showed: IMPRESSIONS: Borderline anal hypertension and borderline anal hypocontractility (overall anal sphincter strength lower than average for gender) Abnormal balloon expulsion with normal manometric pattern of rectoanal coordination normal rectal propulsive force and normal anal relaxation with push) This is considered an inconclusive finding that can also be seen in normal controls according to the Wu classification. Mild rectal hypersensitivity suggestive of chronic constipation She complains of constipation x 2-3 days followed by soft/watery stools lasting for half a day. ?Patient was advised to take Miralax every other day for constipation and take Rifaximin x 14 days for suspected SIBO. Takes Miralax intermittently Pt was advised to go on a clear liquid diet and take Mag Citrate to clean out her colon. Then start taking Linzess for constipation. 01/30/22 - pt was advised stool studies, start a probiotic and increase sucralfate to 3-4 times daily 03/16/22 Pt was switched from Omeprazole to Pantoprazole 40 mg twice daily and started on Amitriptyline 25 mg at bedtime. 04/28/22 Amitriptyline dose was increased to 50 mg at bedtime Pt's wt gain is likely related to elevated TSH levels - repeat TSH planned in [address] Humphrey 11/30/22 Pt complains of left sided abd pain, bloating and worsening GERD symptoms after she was advised to take the Pantoprazole later in the day and stop sucralfate due to suspected drug interaction with Levothyroxine. Pt was advised to increase pantoprazole to 40 mg twice daily and amitriptyline to 75 mg at bedtime She will be scheduled for an EGD (last EGD in 2018 showed a small hiatal hernia and gastritis - no HP on bx) - scheduled on 12/22/22. 12/21/22 Pt seen with worsening upper abdominal pain, nausea, vomiting and unable to tolerate PO food. Pt had an elevated lipase on 12/18/22 Pt advised to return to the ED for repeat labs, lipase and a CT scan with IV contrast. She will need to be admitted if lipase remains elevated for bowel rest and IVF Repeat lipase was normal. ABD CT SCAN SHOWED: PANCREAS: Edematous appearing pancreas with peripancreatic stranding. This appears more pronounced than the 08/08/2020 examination. No peripancreatic fluid collections. No dilatation of the main pancreatic duct. CT findings were reviewed with the patient. 10/27/23 EGD was performed in findings as noted above. Order placed for MRCP for FU of pancreatitis Of note pt is status post lap macy and had a normal triglyceride level a few months ago. Pt advised to schedule an appt with Endocrinology 05/03/23 Lab and MRI results reviewed. Vaguely recall being treated with steroids in the past (? 2006). Complains of nausea and postprandial vomiting. Has been loosing weight. IgG4 level was elevated at 166.8 Additional lab, urine and stool test were ordered and not done yet - pt advised to complete FU appt in 6 weeks ADDENDUM: 05/17/23 Pt called an lab results reviewed: Having watery stools for the past two weeks with bowel accidents Notes post prandial diarrhea which is very smelly. Stool appears greasy and sometime pale with white dots. No one is sick at home. Having 1 meal a day (rice, beans, chicken, eggs and toast) and keeps loosing weight. Started on antibiotics for suspected SIBO and has been taking it without improvement in symptoms. Pt with long hx of Abd pain, diarrhea alternating with constipation initially diagnosed with IBS Enlarged pancreas on past CT and MRI showed a normal pancreas Elevated Ig G4 levels without other clinical signs of Ig G4 related disease 06/01/[address] Alegre for a 2nd opinion and additional labs were ordered and pt scheduled for EGD and colon 06/14/23 Loosing weight too fast, loosing hair, cant keep anything in her stomach. Unable to eat without vomiting or diarrhea. Constant abdominal pain. Has diarrhea alternating with constipation. No BM x 3 days Advised GFD - states she tried a GFD in the past ? for 1-2 years and willing to try it again. 08/02/23 Constantly burping associated with regurgitation of liquids and feels like she is drowning Taking Omeprazole and is working a little bit. Hardly eat since has nausea and abdominal pain when she eats Ref to Hem Onc for evaluation of elevated Ig A levels FU appt in 6 weeks Orders: Orders Metanephrines, Plasma 08/03/23 R10.9 - Unspecified abdominal pain, R76.8 - Other specified abnormal immunological findings in serum Ferritin 08/03/23 R10.9 - Unspecified abdominal pain Immunoglobulin G Subclasses 08/03/23 R76.8 - Other specified abnormal immunological findings in serum, R10.9 - Unspecified abdominal pain C Reactive Protein 08/03/23 R10.9 - Unspecified abdominal pain Referrals Hematology & Oncology Referral R76.8 - Other specified abnormal immunological findings in serum Medications: New pantoprazole 40 mg PO DAILY 30 tabs 3RF 30 days Discontinued omeprazole Discontinued Reason: Ancillary Entered New Order 40 mg (2 x 20 mg) PO DAILY 180 caps 1RF Coding Level of Care Code Est Pt Level 4 (82459) Diagnoses Elevated immunoglobulin A R76.8 Abdominal pain R10.9 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 R76.8 Time Spent (min) 19
[2023-08-02 08:51] VITALS: BP 141/100; PULSE 103; BMI 32.9
== END 2023-08-02 09:26 | disposition home or self-care (01) ==
PROVIDERS: PCP Internal Medicine; Visit Provider Internal Medicine Gastroenterology
DX: R76.8 Other specified abnormal immunological findings in serum (principal); R10.9 Unspecified abdominal pain
CPT/HCPCS: 99499

== ENCOUNTER → 2023-08-02 08:29 | Outpatient (BNVA) | payer OTHER, SELFPAY | PROVIDERS: PCP Internal Medicine; Visit Provider Internal Medicine Gastroenterology ==

== ENCOUNTER 2023-08-03 08:29 | Outpatient (REF) | payer OTHER, SELFPAY ==
[2023-08-03 09:48] LABS: C Reactive Protein 0.17 mg/dL (< or = 0.50); Uric Acid 4.6 mg/dL (2.4-5.7)
[2023-08-03 10:04] LABS: Ferritin 233 ng/mL (10-250)
[2023-08-06 16:48] LABS: Immunoglobulin G Subclass 1 590 mg/dL (382-929); Immunoglobulin G Subclass 2 410 mg/dL (241-700); Immunoglobulin G Subclass 3 18 mg/dL (22-178); Immunoglobulin G Subclass 4 202.1 mg/dL (4-86); Immunoglobulin G Total 1295 mg/dL (600-1640)
[2023-08-11 06:49] LABS: Metanephrine, Free 30 pg/mL (<=57); Normetanephrines, Free 92 pg/mL (<=148); Total Metanephrine, Free 122 pg/mL (<=205)
== END 2023-08-03 08:30 | disposition home or self-care (01) ==
LOC: HO.LAB 08:29
PROVIDERS: Internal Medicine Hypertension Specialist; PCP Internal Medicine; Visit Provider Internal Medicine Gastroenterology
DX: N20.0 Calculus of kidney (principal); R10.9 Unspecified abdominal pain; R76.8 Other specified abnormal immunological findings in serum
CPT/HCPCS: 36415; 82728; 82784; 83835; 84550; 86140

== ENCOUNTER 2023-08-22 09:30 | Outpatient (AMB) | payer OTHER, SELFPAY ==
--- NOTE | 2023-08-22 09:36 | A.OFFVIS_ITS ---
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 Allergies pineapple [PINEAPPLE] Allergy (Severe, Verified 08/02/23 08:45) ANAPHYLAXIS adhesive tape Allergy (Intermediate, Verified 08/02/23 08:45) Blister Iodinated Contrast Media [IV Dye, Iodine Containing] Allergy (Intermediate, Verified 08/02/23 08:45) SOB,RASH levofloxacin [From Levaquin] Allergy (Intermediate, Verified 08/02/23 08:45) swelling/rash oxycodone [From Percocet] Allergy (Intermediate, Verified 08/02/23 08:45) rash/SOB aspirin [ASA] Adverse Reaction (Mild, Verified 08/02/23 08:45) UPSET STOMACH Medication List - Last Reconciled 08/22/23 by Chepe Aragon MD aluminum hydrox-magnesium carb 254-237.5 mg/5 mL (Gaviscon Extra Strength) 10 mL PO QID PRN amlodipine 10 mg PO DAILY atorvastatin (Lipitor) 10 mg PO DAILY budesonide-formoterol 160-4.5 mcg/actuation (Symbicort) 2 puffs inhalation BID cholecalciferol (vitamin D3) (Vitamin D3) 50 mcg PO DAILY clobetasol 0.05% 1 appl topical BID 4 weeks clotrimazole-betamethasone 1-0.05 % 1 appl topical BID 5 days diclofenac sodium 75 mg PO BID PRN docusate sodium 100 mg PO BID famotidine 20 mg PO BEDTIME PRN 90 days fluticasone furoate-vilanterol 200-25 mcg/dose (Breo Ellipta) 1 inh inhalation DAILY 30 days ipratropium-albuterol 0.5 mg-3 mg(2.5 mg base)/3 mL 3 mL inhalation Q4-6H PRN lisinopril 10 mg PO DAILY lorazepam 1 mg PO ONCE PRN metoprolol tartrate 100 mg PO BID 90 days omalizumab (Xolair) 300 mg (2 mL) subcut Q2W pantoprazole 40 mg PO DAILY 30 days polyethylene glycol 3350 (Gavilax) 17 grams PO BID 60 days pyridoxine (vitamin B6) 100 mg PO DAILY sodium,potassium,mag sulfates 17.5-3.13-1.6 gram (Suprep Bowel Prep Kit) DILUTE; drink 1/2 at 6-8 pm and half at 11 PM- 1AM Tirosint (levothyroxine) 175 mcg PO DAILY NS umeclidinium 62.5 mcg/actuation (Incruse Ellipta) 1 inh inhalation DAILY 30 days Ventolin HFA 90 mcg/actuation (albuterol sulfate) 2 puffs inhalation Q4-6H PRN 30 days NS HPI Comments Details: Gloria is here for evaluation of chest pain. Previously seen by Dr. Mooney in 2020. She states she gets random episodes of chest pain with and without exertion. Mostly in the left side. At the time, she also feels numbness in the left arm left side of the face. Not documented to have any coronary disease. Seems somewhat atypical without any clear-cut exertional type patterns and she actually feels his more at rest than during exertion. Many comorbidities listed and also with polypharmacy. [facility] Medical History Dysphagia Diarrhea Well woman exam Abnormal finding on EKG Hx of flexible sigmoidoscopy Internal derangement of right shoulder Lump of left breast Lump of right breast Lump of axillary tail of right breast Chronic constipation Rotator cuff impingement syndrome of left shoulder Right forearm pain Colitis Hypertensive urgency Rotator cuff impingement syndrome Lateral epicondylitis of both elbows Fall IBS (irritable bowel syndrome) Abdominal bloating Tendinopathy of left rotator cuff History of TIA (transient ischemic attack) Hypercholesterolemia Vitamin D deficiency Multinodular thyroid Pancreatic cyst Constipation Thyroid nodule Diarrhea Rectal bleeding Esophageal spasm GERD (gastroesophageal reflux disease) Hypertension Asthma Kidney stones History of migraine headaches Fibromyalgia Allergic rhinitis Sciatic nerve pain Ovarian cyst Hypothyroidism Surgical History History of arthroscopic surgery of shoulder Hx of eye surgery History of breast lump/mass excision Hx of hemorrhoidectomy Hx of tubal ligation History of esophagogastroduodenoscopy (EGD) History of colonoscopy (~11/16/19) H/O: hysterectomy History of thyroidectomy (~11/2018) History of kidney surgery Hx of bilateral breast reduction surgery Hx of appendectomy History of cholecystectomy (~2003) H/O lithotripsy Family History Father Family history of high blood pressure History of high cholesterol Mother History of diabetes mellitus Family history of high blood pressure Family history of asthma History of fibromyalgia Liver disease Maternal Grandfather Colon cancer Family/Other Breast cancer Social History Household Members: Spouse Household Members Other:: daughter Housing: Apartment Are you a primary professional healthcare representative to a significant other at home: No Do you presently have visiting nurse or other home services: No Alcohol intake: never Patient Tobacco Use Status: Former Tobacco user Tobacco use type: Cigarette Years Smoked: 15 e-Cigarette/Vaping Use: Never Used Second Hand Smoke Exposure: No Substance Use Type: Marijuana service: No Current occupational status: disabled Current occupation: right handed Sexual orientation: Straight/Heterosexual Gender identity: Female Cognitive needs: No Hearing needs: No Vision needs: Yes Female Reproductive History Menstrual Age of Menarche: 10 Review of Systems Const Denies weakness ENT Denies dizziness Card Denies chest pain, Denies chest pain with activity, Denies syncope, Denies rapid heart rate, Denies pedal edema, Denies edema, Denies leg edema, Denies lighthea dedness, Denies palpitations, Denies dyspnea, Denies dyspnea on exertion and Denies orthopnea Resp Denies cough, Denies dyspnea and Denies dyspnea on exertion GI Denies hematochezia and Denies change in stool character Musc Denies abnormal gait, Denies muscle cramps, Denies muscle weakness, Denies numbness, Denies radiating pain into limb and Denies tingling Neuro Denies abnormal gait, Denies dizziness, Denies syncope, Denies numbness, Denies tingling and Denies weakness Endo Denies palpitations Physical Exam Vital Signs: Last Vital Signs Pulse 89 08/22/23 09:37 BP 142/78 H 08/22/23 09:37 BMI result Body Mass Index 34.5 Const General: comfortable and no acute distress Orientation/consciousness: patient oriented x3 HEENT Other: Unremarkable Head: Yes normal to inspection Neck Neck: Yes normal visual inspection Chest Chest palpation & inspection: normal inspection of the chest Resp Auscultation: clear to auscultation bilaterally Cardio Palpation: normal PMI Heart sounds: S1 normal heart sound present, S2 normal heart sound present, no gallops, no murmurs and no rubs GI Palpation (GI): Soft to palpation Back/Spine/Pelvis Other: unremarkable Skin General skin exam: no rashes or lesions noted Neuro General: patient oriented x3 Extrem General: Yes normal to inspection Psych Mental Status: mental status grossly normal Assessment & Plan Assessment & Plan (1) Precordial chest pain: Code(s): R07.2 - Precordial pain Category: Medical Plan In the baseline EKG, underlying rhythm is sinus at 84/Min; cannot exclude old inferior infarct but can also be from body habitus; normal MT and corrected QT. Overall, atypical symptoms but seems recurrent. Will pursue further workup with an echocardiogram/stress test. Follow-up after the above. Total time spent including review of data, counseling, documentation, coordination of care-31 minutes. Orders: Orders CA echo transthoracic complete Today R07.2 - Precordial pain CA echo stress exercise Today R07.2 - Precordial pain Coding Level of Care Code Est Pt Level 4 (86712) Diagnoses Precordial chest pain R07.2
[2023-08-22 09:37] VITALS: BP 142/78; PULSE 89; BMI 34.5
== END 2023-08-22 10:05 | disposition home or self-care (01) ==
PROVIDERS: PCP Internal Medicine; Visit Provider Internal Medicine
DX: R07.2 Precordial pain (principal)
CPT/HCPCS: 99214

== ENCOUNTER → 2023-08-22 09:30 | Outpatient (BNVA) | payer OTHER, SELFPAY | PROVIDERS: PCP Internal Medicine; Visit Provider Internal Medicine | DX: R07.2 Precordial pain (principal) | CPT/HCPCS: 99212 ==

== ENCOUNTER → 2023-08-28 09:00 | Outpatient (BNV) | payer OTHER, SELFPAY | PROVIDERS: PCP Internal Medicine; Visit Provider Internal Medicine Medical Oncology | DX: D47.2 Monoclonal gammopathy (principal) | CPT/HCPCS: 99204; 99213 ==

== ENCOUNTER 2023-08-28 10:21 | Outpatient (AMB) | payer OTHER, SELFPAY ==
[2023-08-28 10:23] VITALS: BP 134/68; PULSE 75; O2SAT 98; BMI 35.4
--- NOTE | 2023-08-28 10:23 | A.OFFPC_ITS ---
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 Research Test Engine Operator Required: No Allergies pineapple [PINEAPPLE] Allergy (Severe, Verified 08/28/23 10:45) ANAPHYLAXIS adhesive tape Allergy (Intermediate, Verified 08/28/23 10:45) Blister Iodinated Contrast Media [IV Dye, Iodine Containing] Allergy (Intermediate, Verified 08/28/23 10:45) SOB,RASH levofloxacin [From Levaquin] Allergy (Intermediate, Verified 08/28/23 10:45) swelling/rash oxycodone [From Percocet] Allergy (Intermediate, Verified 08/28/23 10:45) rash/SOB aspirin [ASA] Adverse Reaction (Mild, Verified 08/28/23 10:45) UPSET STOMACH Medication List - Last Reconciled 08/28/23 by Francisca Logan PA-C aluminum hydrox-magnesium carb 254-237.5 mg/5 mL (Gaviscon Extra Strength) 10 mL PO QID PRN amlodipine 10 mg PO DAILY atorvastatin (Lipitor) 10 mg PO DAILY budesonide-formoterol 160-4.5 mcg/actuation (Symbicort) 2 puffs inhalation BID cholecalciferol (vitamin D3) (Vitamin D3) 50 mcg PO DAILY clobetasol 0.05% 1 appl topical BID 4 weeks clotrimazole-betamethasone 1-0.05 % 1 appl topical BID 5 days diclofenac sodium 75 mg PO BID PRN docusate sodium 100 mg PO BID famotidine 20 mg PO BEDTIME PRN 90 days fluticasone furoate-vilanterol 200-25 mcg/dose (Breo Ellipta) 1 inh inhalation DAILY 30 days ipratropium-albuterol 0.5 mg-3 mg(2.5 mg base)/3 mL 3 mL inhalation Q4-6H PRN lisinopril 10 mg PO DAILY lorazepam 1 mg PO ONCE PRN metoprolol tartrate 100 mg PO BID 90 days omalizumab (Xolair) 300 mg (2 mL) subcut Q2W pantoprazole 40 mg PO DAILY 30 days polyethylene glycol 3350 (Gavilax) 17 grams PO BID 60 days pyridoxine (vitamin B6) 100 mg PO DAILY sodium,potassium,mag sulfates 17.5-3.13-1.6 gram (Suprep Bowel Prep Kit) DILUTE; drink 1/2 at 6-8 pm and half at 11 PM- 1AM Tirosint (levothyroxine) 175 mcg PO DAILY NS umeclidinium 62.5 mcg/actuation (Incruse Ellipta) 1 inh inhalation DAILY 30 days Ventolin HFA 90 mcg/actuation (albuterol sulfate) 2 puffs inhalation Q4-6H PRN 30 days NS Tobacco use date assessed: 04/25/23 Dental Screening Dental Screen Date: 04/25/23 HPI Left Hand Pain HPI Details 52-year-old obese female with past medic al history of postsurgical hypothyroidism, asthma, hypertension, hypercholesterolemia, and GERD last seen by Dr. Junior 04/25/2023 coming in today for an acute problem. In review of the notes, patient was recently seen by cardiology for atypical chest pain and stress echo and transthoracic echo ordered.? Patient is also followed by Gastroenterology 08/02/2023 for IBS an elevated IgG 4 levels started on pantoprazole and referred to Hematology Oncology. Patient was also seen by Nephrology 07/05/2023 for kidney stone and left-sided hydronephrosis.? Advised to discontinue Topamax, increase fluid intake and follow up.? Patient is also followed by Endocrinology for postsurgical hypothyroidism, increased Tirosint due to suppressed levels of TSH.? Today she comes in for acute on chronic left hand pain. History of injury to the left hand 7 years ago with increasing pain and swelling over the last 4 months. Pain sometimes radiates through the wrist to the elbow. The pain is primarily located over the base of the thumb, thumb and the index finger. She does occasionally have numbness and tingling in those 2 digits which is intermittent. She does not identify an inciting event, and does not have any alleviating or provoking factors. She does endorse some pain with movement of the thumb as well as limited mobility. She has never had x-rays of the left hand. She denies any fevers, body aches,or chills. She has been taking Tylenol as needed for pain and is not able to take NSAIDs. [facility] Medical History Dysphagia Diarrhea Well woman exam Abnormal finding on EKG Hx of flexible sigmoidoscopy Internal derangement of right shoulder Lump of left breast Lump of right breast Lump of axillary tail of right breast Chronic constipation Rotator cuff impingement syndrome of left shoulder Right forearm pain Colitis Hypertensive urgency Rotator cuff impingement syndrome Lateral epicondylitis of both elbows Fall IBS (irritable bowel syndrome) Abdominal bloating Tendinopathy of left rotator cuff History of TIA (transient ischemic attack) Hypercholesterolemia Vitamin D deficiency Multinodular thyroid Pancreatic cyst Constipation Thyroid nodule Diarrhea Rectal bleeding Esophageal spasm GERD (gastroesophageal reflux disease) Hypertension Asthma Kidney stones History of migraine headaches Fibromyalgia Allergic rhinitis Sciatic nerve pain Ovarian cyst Hypothyroidism Surgical History History of arthroscopic surgery of shoulder Hx of eye surgery History of breast lump/mass excision Hx of hemorrhoidectomy Hx of tubal ligation History of esophagogastroduodenoscopy (EGD) History of colonoscopy (~11/16/19) H/O: hysterectomy History of thyroidectomy (~11/2018) History of kidney surgery Hx of bilateral breast reduction surgery Hx of appendectomy History of cholecystectomy (~2003) H/O lithotripsy Family History Father Family history of high blood pressure History of high cholesterol Mother History of diabetes mellitus Family history of high blood pressure Family history of asthma History of fibromyalgia Liver disease Maternal Grandfather Colon cancer Family/Other Breast cancer Social History Household Members: Spouse Household Members Other:: daughter Housing: Apartment Are you a primary rn palliative care to a significant other at home: No Do you presently have visiting nurse or other home services: No Alcohol intake: never Patient Tobacco Use Status: Former Tobacco user Tobacco use type: Cigarette Years Smoked: 15 e-Cigarette/Vaping Use: Never Used Second Hand Smoke Exposure: No Substance Use Type: Marijuana service: No Current occupational status: disabled Current occupation: right handed Sexual orientation: Straight/Heterosexual Gender identity: Female Cognitive needs: No Hearing needs: No Vision needs: Yes Female Reproductive History Menstrual Age of Menarche: 10 Questionnaire Thrive Questionnaire Date Thrive assessed: 04/25/23 I am a: Patient What is your living situation today?: I have a steady place to live Within the past 12 months, did the food you bought not last and you didn't have the money to get more?: Never true Within the past 12 months, did you worry whether your food would run out before you got money to buy more?: Never true Do you have trouble paying for medicines?: No Do you have trouble getting transportation to medical appointments?: No Do you have trouble paying your heating and electricity bill?: No Do you have trouble taking care of your child, family member or friend?: No Do you have trouble with day-to-day activities such as bathing, preparing meals, shopping, managing finances, etc.?: No Are you currently unemployed and looking for a job?: No Are you interested in more education?: No THRIVE Score: 0 AUDIT C Alcohol Use Questionnaire (AUDIT-C) 1. How often do you have a drink containing alcohol?: Never Total Score: 0 Score Reviewed/Action Taken: No INDRA-7 AMB Questionnaire INDRA-7 Date INDRA - 7 assessed: 04/25/23 Source: Developed by Drs. Rainer Caldwell, Ashanti Malone, Hank Dewitt and colleagues, with an educational mayco from [employer]. Review of Systems Const Denies body aches, Denies chills and Denies fever(s) Eyes Reports no additional complaints ENT Reports no additional complaints Card Reports no additional complaints and Denies chest pain Resp Reports no additional complaints Musc Details: Left hand pain and swelling that radiates to the wrist and elbow occasionally. Mild numbness and tingling intermittently. Neuro Reports no additional complaints Physical exam (Primary Care) Vital Signs: Last Vital Signs Pulse 75 08/28/23 10:23 BP 134/68 08/28/23 10:23 Pulse Ox 98 08/28/23 10:23 Oxygen Delivery Method Room Air 08/28/23 10:23 BMI result Body Mass Index 35.4 Tobacco/Smoking Status: Tobacco use Status Tobacco use date assessed 04/25/23 08/28/23 10:29 Patient Tobacco Use Status Former Tobacco user 08/28/23 10:29 Tobacco use type Cigarette 07/02/24 10:29 e-Cigarette/Vaping Use Never Used 08/28/23 10:29 Thrive Assessment: Date of Thrive Assessment Date Thrive assessed 04/25/23 08/28/23 10:29 Const General: cooperative, healthy appearing, comfortable and no acute distress Orientation/consciousness: patient oriented x3 HENMT Head: Yes normal to inspection Eyes General: appearance normal, both eyes and all related structures Conjunctivae: conjunctivae normal Neck Neck: Yes normal visual inspection Resp Effort & Inspection: normal respiratory effort Auscultation: clear to auscultation bilaterally, no crackles, no rales, no rhonchi and no wheezes Cardio Rate: regular rate Rhythm: regular rhythm Skin General skin exam: no rashes or lesions noted Neuro General: patient oriented x3, gait normal and moves all extremities Extrem Other: Tenderness and mild swelling over left thenar eminence and limited mobility with passive and active range of motion of left thumb. No redness or warmth of hands, wrists, or elbows bilaterally. Psych Appearance: grossly normal Mental Status: mental status grossly normal Speech and movement: Normal speech and movement present Insight: Good insight present (Psych) Judgement: Good judgement present (Psych) Assessment and Plan Assessment & Plan (1) Hand pain: Code(s): M79.643 - Pain in unspecified hand Qualifiers: Laterality: left Qualified Code(s): M79.642 - Pain in left hand Plan: No evidence of infection in the hand or thumb at this time. No redness or warmth and around the hand. No history of gout. X-ray of the left hand ordered and Prednisone taper sent to pharmacy to help with inflammation. Patient agrees to reach out or follow-up if hand becomes swollen, warm, red as this may be an infectious process. We will follow up with patient after x-ray or sooner if symptoms worsen. Orders: Orders XR hand LT min 3V Today M79.643 - Pain in unspecified hand Medications: New prednisone Take 4 tablets on 1st and 2nd day. Take 3 tablets on 3rd and 4th day. Take 2 tablets on 5th and 6 day period and take 1 tablet on days 7 and 8. 10 mg PO DIRECTED 20 tabs 0RF Coding Level of Care Code Est Pt Level 4 (69227) Diagnoses Pain of left hand M79.642 Laterality: left
== END 2023-08-28 11:03 | disposition home or self-care (01) ==
PROVIDERS: PCP Internal Medicine
DX: M79.642 Pain in left hand (principal)
CPT/HCPCS: 99214

== ENCOUNTER → 2023-09-11 09:13 | Outpatient (REF) | payer OTHER, SELFPAY ==
--- NOTE | 2023-09-11 09:16 | CA_ITS ---
Transthoracic Echocardiogram Patient (Last, First, Middle): Gloria Norton, Gender: Female Date of : 1970 Age: 53 Procedure Date: 09/11/2023 Procedure Type: Transthoracic Echocardiogram Location: OP Height: 165.1 cm Weight: 90.27 kg BSA: 1.97 m2 Heart Rate: 84 bpm BP: 125 / 85 mmHg Story Writer: KAI Burgess MD: Chepe Aragon MD Branch Operation Evaluation Manager: Mainor Mooney MD Symptoms: R07.2 - Precordial pain Study Quality: Adequate ECG Rhythm: Sinus tachycardia Conclusions: - 1. Normal LV ejection fraction of 60 65% with mild LVH with impaired relaxation filling pattern 2. Normal cardiac valvular Doppler 3. No gross pericardial effusion Findings Left Ventricle Normal left ventricular size and systolic function. There is mildly increased left ventricular wall thickness. The visually estimated ejection fraction is between 60-65%. Spectral Doppler is indicative of an impaired relaxation filling pattern. E/E prime ratio is between 8 and 15 consistent with indeterminate filling pressures. There is moderate septal asymmetric hypertrophy. Right Ventricle The right ventricle was not well visualized. Atria The left atrium is normal in size. Interatrial shunt cannot be excluded. The right atrium was not well visualized. Aortic Valve The aortic valve was not well visualized. There is no aortic valve stenosis. There is no aortic valve regurgitation. Mitral Valve Likely normal mitral valve structure and function. There is trace mitral valve regurgitation. There is no mitral valve stenosis. Pulmonic Valve The pulmonic valve was not well visualized. Tricuspid Valve The tricuspid valve was not well visualized. Tricuspid regurgitation envelope is inadequate for calculation of right ventricular systolic pressure. Great Vessels The aorta was not well visualized. The pulmonary artery was not well visualized. There is no dilatation of the ascending aorta measuring 3.00 cm. Venous The inferior vena cava was not well visualized. Pericardium/Pleural There is no evidence of pericardial effusion. Prior Study Comparison No significant change compared to prior study dated: 06/12/2018. Measurements 2D Linear Measurements IVSd: 1.54 0.6-0.9/0.6-1.0 cm LVIDd: 3.07 3.9-5.3/4.2-5.9 cm LVIDd Index: 1.56 2.4-3.2/2.2-3.1 cm/m2 LVIDs: 2.28 2.0-3.6 cm LVPWd: 1.33 0.7-1.1 cm LA Diam: 3.20 2.7-3.8/3.0-4.0 cm LAIDs Index: 1.62 1.5-2.3 cm/m2 LV Mass: 187.88 67-162/88-224 g LV Mass Index: 95.37 43-95/49-115 g/m2 LVOT Diam: 2.10 3.0+(-)1.3 cm 2D Systolic Function EF 4C: 63.90 >55% EF 2C: 64.40 >55% EF BiP: 64.30 >55% Mitral Valve E'Lateral: 6.42 E'Medial: 6.09 Aortic Valve AoV Pk Watson: 1.08 AoV Mn Watson: 0.77 AoV VTI: 0.20 AoV Pk Grad: 5.00 Aov Mn Grad: 3.00 NATE Cont.VTI: 3.36 LVOT LVOT Pk Watson: 1.03 LVOT Mn Watson: 0.73 LVOT VTI: 0.19 LVOT Pk Grad: 4.00 LVOT Mn Grad: 2.00 LVOT Diam: 2.10 LVOT Area: 3.46 Diastolic Function E'Medial: 6.09 E' Laterial: 6.42 Right Ventricle TAPSE (mm): 10.60 TVS' Watson: 9.03 Tricuspid Valve RA Press: 8.00 Great Vessels Aorta Sinus of Valsalva: 3.10 2.0-3.5 cm Ao Asc: 3.00 2.1-3.4 cm Pulmonary Valve PV Pk Watson: 0.83 Peak PV Grad: 3.00 Updated in Other Vendor System with Status of Final Mainor Mooney MD electronically signed on 09/11/2023 4:40:55 PM with status of Final
== END ==
LOC: HO.CARD 09:13
PROVIDERS: PCP Internal Medicine; Visit Provider Internal Medicine
DX: R07.2 Precordial pain (principal)
CPT/HCPCS: 93306

== ENCOUNTER → 2023-09-11 09:16 | Outpatient (BNV) | payer OTHER, SELFPAY | PROVIDERS: PCP Internal Medicine; Visit Provider Internal Medicine Cardiovascular Disease | DX: I42.2 Other hypertrophic cardiomyopathy (principal) | CPT/HCPCS: 93306 ==

== ENCOUNTER 2023-09-12 11:01 | Outpatient (REF) | payer OTHER, SELFPAY ==
[2023-09-12 12:18] LABS: Creatinine, mg/dL 38.28
[2023-09-12 13:48] LABS: Creatinine, 24Hr Urine 0.7 G/Day (1.0-2.0); Total Volume 24 Hour Urine 1850 mL
== END 2023-09-12 11:02 | disposition home or self-care (01) ==
LOC: HO.LNP 11:01
PROVIDERS: Visit Provider Internal Medicine Hypertension Specialist
DX: N20.0 Calculus of kidney (principal)
CPT/HCPCS: 82570

== ENCOUNTER 2023-09-14 08:41 | Outpatient (REF) | payer OTHER, SELFPAY ==
--- NOTE | ~2023-09-14 | XR_ITS ---
EXAMINATION: XR HAND, LEFT CLINICAL INFORMATION: Left hand injury 7 years ago. COMPARISON: None available. TECHNIQUE: PA, lateral, and oblique views of the left hand. FINDINGS: Mild multifocal osteoarthritis the left hand is characterized by marginal osteophytes and mild joint space narrowing, most notably in the DIP joints as well as the thumb CMC joint. No erosions. Bone mineralization is normal. Mild periostitis is noted at the thumb metacarpal, chronic in appearance Soft tissues are unremarkable. No soft tissue calcifications. XR/XR hand LT min 3V IMPRESSION: Mild multifocal osteoarthritis in the left hand, most notably at the DIP joints. No acute osseous findings.
== END 2023-09-14 08:42 | disposition home or self-care (01) ==
LOC: HO.XRAY 08:41
PROVIDERS: PCP Internal Medicine
DX: M79.642 Pain in left hand (principal)
CPT/HCPCS: 73130

== ENCOUNTER 2023-10-03 12:37 | Outpatient (AMB) | payer OTHER, SELFPAY ==
--- NOTE | 2023-10-03 12:53 | A.OFFVIS_ITS ---
Vital Signs 10/03/23 12:56 Height 5 ft 5 in Weight 215 lb BMI 35.8 Intake Visit Reasons: Vaginal rash Social And Human Services Assistant Required: No Information Interpreted: non-clinical & clinical Entry Level: Entry Level Present Accompanied by: Self / Same As Patient Allergies pineapple [PINEAPPLE] Allergy (Severe, Verified 10/03/23 12:58) ANAPHYLAXIS adhesive tape Allergy (Intermediate, Verified 10/03/23 12:58) Blister Iodinated Contrast Media [IV Dye, Iodine Containing] Allergy (Intermediate, Verified 10/03/23 12:58) SOB,RASH levofloxacin [From Levaquin] Allergy (Intermediate, Verified 10/03/23 12:58) swelling/rash oxycodone [From Percocet] Allergy (Intermediate, Verified 10/03/23 12:58) rash/SOB aspirin [ASA] Adverse Reaction (Mild, Verified 10/03/23 12:58) UPSET STOMACH HPI Comments Details: Presenting complaining of bilateral inguinal and suprapubic skin irritation and itching no vaginal discharge , no foul odor , no vulvovaginal irritation or itching PFSH Medical History Dysphagia Diarrhea Well woman exam Abnormal finding on EKG Hx of flexible sigmoidoscopy Internal derangement of right shoulder Lump of left breast Lump of right breast Lump of axillary tail of right breast Chronic constipation Rotator cuff impingement syndrome of left shoulder Right forearm pain Colitis Hypertensive urgency Rotator cuff impingement syndrome Lateral epicondylitis of both elbows Fall IBS (irritable bowel syndrome) Abdominal bloating Tendinopathy of left rotator cuff History of TIA (transient ischemic attack) Hypercholesterolemia Vitamin D deficiency Multinodular thyroid Pancreatic cyst Constipation Thyroid nodule Diarrhea Rectal bleeding Esophageal spasm GERD (gastroesophageal reflux disease) Hypertension Asthma Kidney stones History of migraine headaches Fibromyalgia Allergic rhinitis Sciatic nerve pain Ovarian cyst Hypothyroidism Surgical History History of arthroscopic surgery of shoulder Hx of eye surgery History of breast lump/mass excision Hx of hemorrhoidectomy Hx of tubal ligation History of esophagogastroduodenoscopy (EGD) History of colonoscopy (~11/16/19) H/O: hysterectomy History of thyroidectomy (~11/2018) History of kidney surgery Hx of bilateral breast reduction surgery Hx of appendectomy History of cholecystectomy (~2003) H/O lithotripsy Family History Father Family history of high blood pressure History of high cholesterol Mother History of diabetes mellitus Family history of high blood pressure Family history of asthma History of fibromyalgia Liver disease Maternal Grandfather Colon cancer Family/Other Breast cancer Social History Household Members: Spouse Household Members Other:: daughter Housing: Apartment Are you a primary manager home healthcare to a significant other at home: No Do you presently have visiting nurse or other home services: No Alcohol intake: never Patient Tobacco Use Status: Former Tobacco user Tobacco use type: Cigarette Years Smoked: 15 e-Cigarette/Vaping Use: Never Used Second Hand Smoke Exposure: No Substance Use Type: Marijuana service: No Current occupational status: disabled Current occupation: right handed Sexual orientation: Straight/Heterosexual Gender identity: Female Cognitive needs: No Hearing needs: No Vision needs: Yes Female Reproductive History Menstrual Age of Menarche: 10 Review of Systems Const All systems reviewed & are unremarkable except as noted in HPI and below Physical Exam Vital Signs: BMI result Body Mass Index 35.8 General: Yes no CVA tenderness External Female Exam: normal external appearance and normal appearance of the urethra Speculum Exam - Vagina: normal appearance of the vagina, normal palpation, no lesions and no masses Speculum Exam - Cervix: normal appearance of the cervix, normal palpation, no lesions, no masses and nontender Bimanual exam- vagina & uterus: normal bimanual exam, normal palpation, uterine size normal, normal palpation, uterine shape normal, No Cervical tenderness present and non-tender Bimanual Exam- Adnexa, other: normal adnexae Back/Spine/Pelvis Back: no CVA tenderness Skin Other: Bilateral inguinal fungal screen infection and suprapubic Assessment & Plan Assessment & Plan (1) Skin candidiasis: Comment: Of bilateral inguinal and suprapubic area Code(s): B37.2 - Candidiasis of skin and nail Category: Medical Plan: The patient was instructed to keep the area dry, use hair blower after showering, use baby powder without Talc and Desitin cream in addition to applying lotrisone cream BID x5 days Medications: New clotrimazole-betamethasone 1-0.05 % 1 appl topical BID 5 days 45 grams 0RF Coding Level of Care Code Est Pt Level 3 (45816) Diagnoses Skin candidiasis B37.2
[2023-10-03 12:56] VITALS: BMI 35.8
== END 2023-10-03 13:39 | disposition home or self-care (01) ==
PROVIDERS: PCP Internal Medicine; Visit Provider Obstetrics & Gynecology
DX: B37.2 Candidiasis of skin and nail (principal)
CPT/HCPCS: 99213

== ENCOUNTER → 2023-10-03 12:37 | Outpatient (BNVA) | payer OTHER, SELFPAY | PROVIDERS: PCP Internal Medicine; Visit Provider Obstetrics & Gynecology | DX: B37.2 Candidiasis of skin and nail (principal) | CPT/HCPCS: 99212 ==

== ENCOUNTER 2023-10-04 12:31 | Outpatient (AMB) | payer OTHER, SELFPAY ==
[2023-10-04 12:54] VITALS: BP 122/88; PULSE 66; BMI 36.1
--- NOTE | 2023-10-04 12:54 | MHC.OFFVIS ---
Vital Signs 10/04/23 12:54 Height 5 ft 5 in Weight 217 lb 2.485 oz BMI 36.1 BP 122/88 Blood Pressure Location Lt brachial Position Sitting Pulse 66 Pulse Source Pulse Oximeter Intake Visit Reasons: f/u post-surgical hypothyroidism-confirmed Intake Note: Patient present today for post surgical Hypothyroidism follow up visit. Occupational Health Technician Required: No Occupational Health Technician Services: Occupational Health Technician Offered & Declined Accompanied by: Self / Same As Patient Allergies pineapple [PINEAPPLE] Allergy (Severe, Verified 10/04/23 12:58) ANAPHYLAXIS adhesive tape Allergy (Intermediate, Verified 10/04/23 12:58) Blister Iodinated Contrast Media [IV Dye, Iodine Containing] Allergy (Intermediate, Verified 10/04/23 12:58) SOB,RASH levofloxacin [From Levaquin] Allergy (Intermediate, Verified 10/04/23 12:58) swelling/rash oxycodone [From Percocet] Allergy (Intermediate, Verified 10/04/23 12:58) rash/SOB aspirin [ASA] Adverse Reaction (Mild, Verified 10/04/23 12:58) UPSET STOMACH Medication List - Last Reconciled 10/04/23 by Rainer Vargas MD aluminum hydrox-magnesium carb 254-237.5 mg/5 mL (Gaviscon Extra Strength) 10 mL PO QID PRN amlodipine 10 mg PO DAILY atorvastatin (Lipitor) 10 mg PO DAILY budesonide-formoterol 160-4.5 mcg/actuation (Symbicort) 2 puffs inhalation BID cholecalciferol (vitamin D3) (Vitamin D3) 50 mcg PO DAILY clobetasol 0.05% 1 appl topical BID 4 weeks clotrimazole-betamethasone 1-0.05 % 1 appl topical BID 5 days clotrimazole-betamethasone 1-0.05 % 1 appl topical BID 5 days diclofenac sodium 75 mg PO BID PRN docusate sodium 100 mg PO BID famotidine 20 mg PO BEDTIME PRN 90 days fluticasone furoate-vilanterol 200-25 mcg/dose (Breo Ellipta) 1 inh inhalation DAILY 30 days ipratropium-albuterol 0.5 mg-3 mg(2.5 mg base)/3 mL 3 mL inhalation Q4-6H PRN lisinopril 10 mg PO DAILY lorazepam 1 mg PO ONCE PRN metoprolol tartrate 100 mg PO BID 90 days omalizumab (Xolair) 300 mg (2 mL) subcut Q2W pantoprazole 40 mg PO DAILY 30 days polyethylene glycol 3350 (Gavilax) 17 grams PO BID 60 days prednisone 10 mg PO DIRECTED pyridoxine (vitamin B6) 100 mg PO DAILY sodium,potassium,mag sulfates 17.5-3.13-1.6 gram (Suprep Bowel Prep Kit) DILUTE; drink 1/2 at 6-8 pm and half at 11 PM- 1AM Tirosint (levothyroxine) 175 mcg PO DAILY NS umeclidinium 62.5 mcg/actuation (Incruse Ellipta) 1 inh inhalation DAILY 30 days Ventolin HFA 90 mcg/actuation (albuterol sulfate) 2 puffs inhalation Q4-6H PRN 30 days NS HPI Comments Details: 53 YO Female with PMHx HTN, breast cancer in remission who is seen in F/U for postsurgical hypothyroidism after she underwent a total thyroidectomy 12/04/2018 for a multinodular thyroid. Surgery was uncomplicated, but the L inferior parathyroid gland did need to be re-implanted. 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 Postoperative course has been unremarkable, but she did recently develop severe hypothyroidism with TSH >40. She has admitted to poor compliance with her levothyroxine. Now she reports good compliance with levothyroxine 200 mcg PO daily for 1 wk . Most recent labs were at goal. Due now for repeat. She does complain of hair loss, fatigue, weight gain and confusion. She also has Vitamin D deficiency. S he has been compliant with her Vitamin D, and her levels are now at goal. Celiac panel was negative. Labs: Did not do recent labs. [facility] Medical History Dysphagia Diarrhea Well woman exam Abnormal finding on EKG Hx of flexible sigmoidoscopy Internal derangement of right shoulder Lump of left breast Lump of right breast Lump of axillary tail of right breast Chronic constipation Rotator cuff impingement syndrome of left shoulder Right forearm pain Colitis Hypertensive urgency Rotator cuff impingement syndrome Lateral epicondylitis of both elbows Fall IBS (irritable bowel syndrome) Abdominal bloating Tendinopathy of left rotator cuff History of TIA (transient ischemic attack) Hypercholesterolemia Vitamin D deficiency Multinodular thyroid Pancreatic cyst Constipation Thyroid nodule Diarrhea Rectal bleeding Esophageal spasm GERD (gastroesophageal reflux disease) Hypertension Asthma Kidney stones History of migraine headaches Fibromyalgia Allergic rhinitis Sciatic nerve pain Ovarian cyst Hypothyroidism Surgical History History of arthroscopic surgery of shoulder Hx of eye surgery History of breast lump/mass excision Hx of hemorrhoidectomy Hx of tubal ligation History of esophagogastroduodenoscopy (EGD) History of colonoscopy (~11/16/19) H/O: hysterectomy History of thyroidectomy (~11/2018) History of kidney surgery Hx of bilateral breast reduction surgery Hx of appendectomy History of cholecystectomy (~2003) H/O lithotripsy Family History Father Family history of high blood pressure History of high cholesterol Mother History of diabetes mellitus Family history of high blood pressure Family history of asthma History of fibromyalgia Liver disease Maternal Grandfather Colon cancer Family/Other Breast cancer Social History Household Members: Spouse Household Members Other:: daughter Housing: Apartment Are you a primary day care attendant to a significant other at home: No Do you presently have visiting nurse or other home services: No Alcohol intake: never Patient Tobacco Use Status: Former Tobacco user Tobacco use type: Cigarette Years Smoked: 15 e-Cigarette/Vaping Use: Never Used Second Hand Smoke Exposure: No Substance Use Type: Marijuana service: No Current occupational status: disabled Current occupation: right handed Sexual orientation: Straight/Heterosexual Gender identity: Female Cognitive needs: No Hearing needs: No Vision needs: Yes Female Reproductive History Menstrual Age of Menarche: 10 Physical Exam Vital Signs: Last Vital Signs Pulse 66 10/04/23 12:54 BP 122/88 10/04/23 12:54 BMI result Body Mass Index 36.1 Const Other: Healed scar status post thyroidectomy Assessment & Plan Assessment & Plan (1) Post-surgical hypothyroidism: Code(s): E89.0 - Postprocedural hypothyroidism Category: Medical Plan: This is a 52-year-old female with a history of post-surgical hypothyroidism. She is currently replaced with 175 mcgTirosint . Plan is to continue the current management. At this point, patient returned to the care of her primary care provider returned back to endocrinology as needed Coding Level of Care Code Est Pt Level 3 (10763) Diagnoses Post-surgical hypothyroidism E89.0
== END 2023-10-04 14:06 | disposition home or self-care (01) ==
PROVIDERS: PCP Internal Medicine; Visit Provider Internal Medicine Endocrinology, Diabetes & Metabolism
DX: E89.0 Postprocedural hypothyroidism (principal)
CPT/HCPCS: 99213

== ENCOUNTER → 2023-10-04 12:31 | Outpatient (BNVA) | payer OTHER, SELFPAY | PROVIDERS: PCP Internal Medicine; Visit Provider Internal Medicine Endocrinology, Diabetes & Metabolism | DX: E89.0 Postprocedural hypothyroidism (principal) | CPT/HCPCS: 99212 ==

== ENCOUNTER 2023-10-22 11:01 | Outpatient (REF) | payer OTHER, SELFPAY ==
--- NOTE | ~2023-10-22 | US_ITS ---
EXAMINATION: US BILATERAL KIDNEYS CLINICAL INFORMATION: Calculus of kidney. COMPARISON: Renal ultrasound 05/14/2023 TECHNIQUE: Real-time imaging of the kidneys. FINDINGS: RIGHT KIDNEY: 12.9 x 5.8 x 7.1 cm (SAG x AP x TRV). The kidney is normal in size, contour, and echogenicity. Renal cortical thickness is normal. No focal parenchymal lesions or hydronephrosis. 1.0 cm lower pole nonobstructive calculus. LEFT KIDNEY: 12.2 x 6.1 x 5.0 cm (SAG x AP x TRV). The kidney is normal in size, contour, and echogenicity. Renal cortical thickness is normal. There is mild lower pole caliectasis versus a parapelvic cyst which appears similar to prior. 7 mm nonobstructing calculus in the mid kidney. US/US renal BI IMPRESSION: Nonobstructing bilateral renal calculi. Mild left lower pole caliectasis versus a parapelvic cyst appears similar to prior. Electronically signed by: Jim Mendez MD 10/31/2023 04:13 PM EDT
== END 2023-10-22 11:02 | disposition home or self-care (01) ==
LOC: HO.US 11:01
PROVIDERS: PCP Internal Medicine; Visit Provider Internal Medicine Hypertension Specialist
DX: N20.0 Calculus of kidney (principal)
CPT/HCPCS: 76775

== ENCOUNTER → 2023-11-06 10:44 | Outpatient (REF) | payer OTHER, SELFPAY ==
--- NOTE | 2023-11-06 10:47 | CA_ITS ---
Acquisition Time: 2023-11-06 10:40:54 Total Exercise Time: 00:05:56 Test Indications: Chest Pain Medications: SEE H Protocol: ANDRES Max HR: 187 BPM 110% of Pred: 169 BPM Max BP: 204/110 mmHG Max Work Load: 7.0 METS Exercise stress test exercise 5 min 56 sec of Andres protocol achieivng approx 88% MPHR, with 3/10. chest tightnessbaseline, 5/10 at peak, with mild SOB, without arrhythmias, with resting HTN, hypertnesive response, with brisk HR response, without EKG changes. Echo images obtained by tech at rest and immediately post peak exercise,. Definity contrast used. Chest pain, blood pressure, and breathing returned to baseline,Test reviewed with Dr. Ross. Referred By: Chepe Aragon Overread By: Ayah Man
== END ==
LOC: HO.CARD 10:44
PROVIDERS: PCP Internal Medicine; Visit Provider Internal Medicine
DX: R07.2 Precordial pain (principal)
CPT/HCPCS: 93350; Q9957

== ENCOUNTER → 2023-11-06 10:47 | Outpatient (BNV) | payer OTHER, SELFPAY | PROVIDERS: PCP Internal Medicine; Visit Provider Nurse Practitioner | DX: I10 Essential (primary) hypertension (principal); R07.9 Chest pain, unspecified | CPT/HCPCS: 93016; 93018; 93350; 93352 ==

== ENCOUNTER 2023-11-15 08:45 | Outpatient (REF) | payer OTHER, SELFPAY ==
[2023-11-15 12:34] LABS: TSH reflex Free T4 0.51 uIU/mL (0.32-4.0); Thyroid Stimulating Hormone 0.51 uIU/mL (0.32-4.0)
== END 2023-11-15 08:46 | disposition home or self-care (01) ==
LOC: HO.LAB 08:45
PROVIDERS: Absent Provider Internal Medicine Gastroenterology; PCP Internal Medicine; Referring Provider Internal Medicine Gastroenterology; Visit Provider Nurse Practitioner Family
DX: E89.0 Postprocedural hypothyroidism (principal)
CPT/HCPCS: 36415; 84443; 93005; 99212

== ENCOUNTER 2023-11-15 08:45 | Outpatient (AMB) | payer OTHER, SELFPAY ==
--- NOTE | 2023-11-15 08:57 | MHC.OFFVIS ---
Vital Signs 11/15/23 08:59 Height 5 ft 5 in Weight 220 lb BMI 36.6 BP 152/100 H Blood Pressure Location Lt brachial Position Sitting Pulse 88 Intake Visit Reasons: 3 month follow up Intake Note: Patient follow up for abdominal pain Patient cc: adominal pain with bloating, Nauseas, GERD, everything that she ate she will vomit or get diarrhea, and difficulty swallowing. [employer] Required: No Accompanied by: Self / Same As Patient Allergies pineapple (PINEAPPLE) Allergy (Severe, Verified 06/04/25 11:37) ANAPHYLAXIS adhesive tape Allergy (Intermediate, Verified 06/04/25 11:37) Blister Iodinated Contrast Media (IV Dye, Iodine Containing) Allergy (Intermediate, Verified 06/04/25 11:37) SOB,RASH levofloxacin (From Levaquin) Allergy (Intermediate, Verified 06/04/25 11:37) swelling/rash oxycodone (From Percocet) Allergy (Intermediate, Verified 06/04/25 11:37) rash/SOB aspirin (ASA) Adverse Reaction (Mild, Verified 06/04/25 11:37) UPSET STOMACH Medication List - Last Reconciled 11/15/23 by Sky Horton MD aluminum hydrox-magnesium carb 254-237.5 mg/5 mL (Gaviscon Extra Strength) 10 mL PO QID PRN amlodipine 10 mg PO DAILY atorvastatin (Lipitor) 10 mg PO DAILY budesonide-formoterol 160-4.5 mcg/actuation (Symbicort) 2 puffs inhalation BID cholecalciferol (vitamin D3) (Vitamin D3) 50 mcg PO DAILY clobetasol 0.05% 1 appl topical BID 4 weeks clotrimazole-betamethasone 1-0.05 % 1 appl topical BID 5 days clotrimazole-betamethasone 1-0.05 % 1 appl topical BID 5 days diclofenac sodium 75 mg PO BID PRN docusate sodium 100 mg PO BID famotidine 20 mg PO BEDTIME PRN 90 days fluticasone furoate-vilanterol 200-25 mcg/dose (Breo Ellipta) 1 inh inhalation DAILY 30 days ipratropium-albuterol 0.5 mg-3 mg(2.5 mg base)/3 mL 3 mL inhalation Q4-6H PRN lisinopril 10 mg PO DAILY lorazepam 1 mg PO ONCE PRN metoprolol tartrate 100 mg PO BID 90 days omalizumab (Xolair) 300 mg (2 mL) subcut Q2W omeprazole 20 mg PO BID polyethylene glycol 3350 (Gavilax) 17 grams PO BID 60 days pyridoxine (vitamin B6) 100 mg PO DAILY sodium,potassium,mag sulfates 17.5-3.13-1.6 gram (Suprep Bowel Prep Kit) DILUTE; drink 1/2 at 6-8 pm and half at 11 PM- 1AM Tirosint (levothyroxine) 175 mcg PO DAILY NS topiramate 50 mg PO BID umeclidinium 62.5 mcg/actuation (Incruse Ellipta) 1 inh inhalation DAILY 30 days Ventolin HFA 90 mcg/actuation (albuterol sulfate) 2 puffs inhalation Q4-6H PRN 30 days NS HPI HPI 3 month follow up: Details: GI Clinic visit for this 52-year-old female for evaluation of diarrhea and abdominal bloating Pt had severe watery diarrhea which lasted for several weeks after her thyroid surgery. Pt was seen at [facility] on 12/18/22 with worsening abd pain and labs showed an elevated lipase of 118 TODAY'S VISIT: Patient reports adominal pain with bloating, Nauseas, GERD, everything that she ate she will vomit or get diarrhea, and difficulty swallowing. Not good, stomach hurts, intermittent watery diarrhea which is yellow in color Watery diarrhea for a few days and then constipation Has diarrhea 4 days per week (5 times a day) and constipation for the rest of the week Has not had a normal BM in the past several months Takes soups when she has the diarrhea and avoids taking solids. Continues to have constant nausea, bloating and burping. PAST VISITS: Denies any change in symptoms Constantly burping associated with regurgitation of liquids and feels like she is drowning Taking Omeprazole and is working a little bit. Hardly eat since has nausea and abdominal pain when she eats Horrible nausea Has diarrhea alternating with constipation. Denies having a normal BM in years Unable to sleep at night due to regurgitation. Sleeping side ways with the pillow elevated. Patient cc: abdominal pain/bloating, GERD with burning sensation,between diarrhea and constipation, water is coming with burps and she can not breath when that happened to her, also she is not eating well due the abdominal pain/loosing weight. Nauseas and Vomit, acid reflex with burning sensation and some swallowing problems Loosing weight too fast, loosing hair, cant keep anything in her stomach. Unable to eat without vomiting or diarrhea. Constant abdominal pain. Has diarrhea alternating with constipation. No BM x 3 days Advised GFD. Pt states she tried a GFD in the past ? for 1-2 years and willing to try it again LABS IN [facility]: 11/15 REVIEWED. ? Stool studies were negative for C Diff, calprotectin was normal and stool fat was elevated ? Stool electrolytes could not be performed since stool was formed ? Serum gastrin was elevated and normal on repeat testing after holding Omeprazole. ?IMAGING STUDIES: 03/16/22 BARIUM SWALLOW SHOWED: -Spontaneous gastroesophageal reflux to the level mid thoracicesophagus. -Bridging anterior osteophytes mid to lower cervical spine. Swellingfunction unremarkable. -No stricture, ulceration, or hiatal hernia. 01/[address] SCAN SHOWED:? 2 mm small radiopaque calculi nonobstructive lower pole right kidney? and mid pole left kidney. There are extrarenal kidney pelvises seen.? Mild constipation without obstruction. No evidence of panniculitis or diverticulitis. Small hiatal hernia.? Fatty lesion anterior body/tail of pancreas junction is stable. 02/15/2018:? ABD MRI SHOWED:Status post cholecystectomy.? No MRI evidence of intra or extrahepatic biliary obstruction, filling defects or stones.Pancreatic metrics incised are normal, no pancreatic mass found ENDOSCOPIC STUDIES: 12/22/22 EGD SHOWED:Endoscopy Findings:LARYNX: Changes suggestive of LPRD ESOPHAGUS: Hiatal hernia STOMACH: Diffuse gastritis DUODENUM: Two 2-3 mm superficial ulcers in the bulb and normal descending duodenum. Plan: Above findings were reviewed with the patient and Hiatal Hernia and PUD handouts were given in the discharge area. . [facility] Medical History Migraines Dysphagia Hx of flexible sigmoidoscopy Internal derangement of right shoulder Lump of left breast Chronic constipation Rotator cuff impingement syndrome of left shoulder Colitis Rotator cuff impingement syndrome Lateral epicondylitis of both elbows IBS (irritable bowel syndrome) Tendinopathy of left rotator cuff Multinodular thyroid Thyroid nodule GERD (gastroesophageal reflux disease) Allergic rhinitis Sciatic nerve pain Ovarian cyst Surgical History History of ureteroscopy Hx of cystoscopy History of carpal tunnel release (09/25/24) History of arthroscopic surgery of shoulder Hx of eye surgery History of breast lump/mass excision Hx of hemorrhoidectomy Hx of tubal ligation History of esophagogastroduodenoscopy (EGD) History of colonoscopy (~11/16/19) H/O: hysterectomy History of thyroidectomy (~11/2018) Hx of bilateral breast reduction surgery Hx of appendectomy History of cholecystectomy (~2003) H/O lithotripsy (04/30/24) Family History Father Family history of high blood pressure History of high cholesterol Mother History of diabetes mellitus Family history of high blood pressure Family history of asthma History of fibromyalgia Liver disease Maternal Grandfather Colon cancer Family/Other Breast cancer Maternal Aunt Breast cancer Family/Other Breast cancer Social History Household Members: Spouse Household Members Other:: daughter Housing: Apartment Are you a primary resident care assistant to a significant other at home: No Do you presently have visiting nurse or other home services: No Alcohol intake: never Patient Tobacco Use Status: Former Tobacco user Tobacco use type: Cigarette Years Smoked: 15 e-Cigarette/Vaping Use: Never Used Second Hand Smoke Exposure: Yes Substance Use Type: Marijuana service: No Current occupational status: disabled Current occupation: right handed Sexual orientation: Straight/Heterosexual Gender identity: Female Cognitive needs: No Hearing needs: No Vision needs: Yes Female Reproductive History Menstrual Age of Menarche: 10 Review of Systems Const All systems reviewed & are unremarkable except as noted in HPI and below Physical Exam Vital Signs: Last Vital Signs Pulse 88 11/15/23 08:59 BP 152/100 H 11/15/23 08:59 BMI result Body Mass Index 36.6 Const General: healthy appearing, no acute distress and anxious Nutritional Appearance: obese Orientation/consciousness: patient oriented x3 HEENT Head: Yes normal to inspection Ears: hearing grossly normal bilaterally Eyes Sclerae: sclerae normal Pupils: Equal, round and reactive pupils present Neck Neck: Yes normal visual inspection Chest Chest palpation & inspection: normal inspection of the chest Resp Effort & Inspection: normal respiratory effort Auscultation: clear to auscultation bilaterally Cardio Palpation: normal PMI Rate: regular rate Rhythm: regular rhythm Heart sounds: S1 normal heart sound present, S2 normal heart sound present and no murmurs GI Palpation (GI): Soft to palpation, nontender and No hepatosplenomegaly present Auscultation: normal bowel sounds Rectal Exam - Female: deferred Skin General skin exam: no rashes or lesions noted Neuro General: patient oriented x3, gait normal and moves all extremities Cranial nerves: Yes Equal, round and reactive pupils present Psych Appearance: grossly normal Mental Status: mental status grossly normal Assessment & Plan Assessment & Plan (1) Irritable bowel syndrome: Code(s): K58.9 - Irritable bowel syndrome, unspecified Category: Medical (2) GERD (gastroesophageal reflux disease): Code(s): K21.9 - Gastro-esophageal reflux disease without esophagitis Category: Medical (3) Elevated lipase: Code(s): R74.8 - Abnormal levels of other serum enzymes Category: Medical (4) Chronic diarrhea: Code(s): K52.9 - Noninfective gastroenteritis and colitis, unspecified Category: Medical (5) 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 Abdominal pain is likely due to IBS with constipation and diarrhea. Patient notes partial improvement in symptoms with senna, she has not used a suppository or enema in the past.? She tried dicyclomine in the past and was not helpful for abdominal pain. Patient had a colonoscopy on 11/18/19? for evaluation of rectal bleeding which revealed diverticulosis and no polyps.? Random biopsies obtained from the colon were negative for inflammation. 08/2020 Anorectal manometry with balloon expulsion testing at [facility] [place] showed: IMPRESSIONS: Borderline anal hypertension and borderline anal hypocontractility (overall anal sphincter strength lower than average for gender) Abnormal balloon expulsion with normal manometric pattern of rectoanal coordination normal rectal propulsive force and normal anal relaxation with push) This is considered an inconclusive finding that can also be seen in normal controls according to the Wu classification. Mild rectal hypersensitivity suggestive of chronic constipation She complains of constipation x 2-3 days followed by soft/watery stools lasting for half a day. ?Patient was advised to take Miralax every other day for constipation and take Rifaximin x 14 days for suspected SIBO. Takes Miralax intermittently Pt was advised to go on a clear liquid diet and take Mag Citrate to clean out her colon. Then start taking Linzess for constipation. 01/30/22 - pt was advised stool studies, start a probiotic and increase sucralfate to 3-4 times daily 03/16/22 Pt was switched from Omeprazole to Pantoprazole 40 mg twice daily and started on Amitriptyline 25 mg at bedtime. 04/28/22 Amitriptyline dose was increased to 50 mg at bedtime Pt's wt gain is likely related to elevated TSH levels - repeat TSH planned in [address] Humphrey 11/30/22 Pt complains of left sided abd pain, bloating and worsening GERD symptoms after she was advised to take the Pantoprazole later in the day and stop sucralfate due to suspected drug interaction with Levothyroxine. Pt was advised to increase pantoprazole to 40 mg twice daily and amitriptyline to 75 mg at bedtime She will be scheduled for an EGD (last EGD in 2018 showed a small hiatal hernia and gastritis - no HP on bx) - scheduled on 12/22/22. 12/21/22 Pt seen with worsening upper abdominal pain, nausea, vomiting and unable to tolerate PO food. Pt had an elevated lipase on 12/18/22 Pt advised to return to the ED for repeat labs, lipase and a CT scan with IV contrast. She will need to be admitted if lipase remains elevated for bowel rest and IVF Repeat lipase was normal. ABD CT SCAN SHOWED: PANCREAS: Edematous appearing pancreas with peripancreatic stranding. This appears more pronounced than the 08/08/2020 examination. No peripancreatic fluid collections. No dilatation of the main pancreatic duct. CT findings were reviewed with the patient. 12/22/22 EGD was performed in findings as noted above. Order placed for MRCP for FU of pancreatitis Of note pt is status post lap macy and had a normal triglyceride level a few months ago. Pt advised to schedule an appt with Endocrinology 05/03/23 Lab and MRI results reviewed. Vaguely recall being treated with steroids in the past (? 2006). Complains of nausea and postprandial vomiting. Has been loosing weight. IgG4 level was elevated at 166.8 Additional lab, urine and stool test were ordered and not done yet - pt advised to complete FU appt in 6 weeks ADDENDUM: 05/17/23 Pt called an lab results reviewed: Having watery stools for the past two weeks with bowel accidents Notes post prandial diarrhea which is very smelly. Stool appears greasy and sometime pale with white dots. No one is sick at home. Having 1 meal a day (rice, beans, chicken, eggs and toast) and keeps loosing weight. Started on antibiotics for suspected SIBO and has been taking it without improvement in symptoms. Pt with long hx of Abd pain, diarrhea alternating with constipation initially diagnosed with IBS Enlarged pancreas on past CT and MRI showed a normal pancreas Elevated Ig G4 levels without other clinical signs of Ig G4 related disease 06/01/[address] Alegre for a 2nd opinion and additional labs were ordered and pt scheduled for EGD and colon 11/15/23 Not good, stomach hurts, intermittent watery diarrhea which is yellow in color Watery diarrhea for a few days and then constipation Has diarrhea 4 days per week (5 times a day) and constipation for the rest of the week Has not had a normal BM in the past several months Takes soups when she has the diarrhea and avoids taking solids. Continues to have constant nausea, bloating and burping. 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
[2023-11-15 08:59] VITALS: BP 152/100; PULSE 88; BMI 36.6
== END 2023-11-15 11:16 | disposition home or self-care (01) ==
PROVIDERS: PCP Internal Medicine; Visit Provider Internal Medicine Gastroenterology
DX: K58.9 Irritable bowel syndrome, unspecified (principal); K21.9 Gastro-esophageal reflux disease without esophagitis; R74.8 Abnormal levels of other serum enzymes; K52.9 Noninfective gastroenteritis and colitis, unspecified; R76.8 Other specified abnormal immunological findings in serum; K63.8219 Small intestinal bacterial overgrowth, unspecified; R19.7 Diarrhea, unspecified
CPT/HCPCS: 99499

== ENCOUNTER 2023-11-15 08:45 | Outpatient (AMB) | payer OTHER, SELFPAY ==
[2023-11-15 08:47] VITALS: BP 144/92; PULSE 106; BMI 36.6
--- NOTE | 2023-11-15 08:47 | A.OFFVIS_ITS ---
Vital Signs 11/15/23 08:47 Height 5 ft 5 in Weight 220 lb 0.341 oz BMI 36.6 BP 144/92 H Blood Pressure Location Lt brachial Position Sitting Pulse 106 H Pulse Source Monitor Intake Visit Reasons: 3m follow up Allergies pineapple [PINEAPPLE] Allergy (Severe, Verified 11/15/23 08:56) ANAPHYLAXIS adhesive tape Allergy (Intermediate, Verified 11/15/23 08:56) Blister Iodinated Contrast Media [IV Dye, Iodine Containing] Allergy (Intermediate, Verified 11/15/23 08:56) SOB,RASH levofloxacin [From Levaquin] Allergy (Intermediate, Verified 11/15/23 08:56) swelling/rash oxycodone [From Percocet] Allergy (Intermediate, Verified 11/15/23 08:56) rash/SOB aspirin [ASA] Adverse Reaction (Mild, Verified 11/15/23 08:56) UPSET STOMACH Medication List - Last Reconciled 11/15/23 by RYAN JonesC aluminum hydrox-magnesium carb 254-237.5 mg/5 mL (Gaviscon Extra Strength) 10 mL PO QID PRN amlodipine 10 mg PO DAILY atorvastatin (Lipitor) 10 mg PO DAILY budesonide-formoterol 160-4.5 mcg/actuation (Symbicort) 2 puffs inhalation BID cholecalciferol (vitamin D3) (Vitamin D3) 50 mcg PO DAILY clobetasol 0.05% 1 appl topical BID 4 weeks clotrimazole-betamethasone 1-0.05 % 1 appl topical BID 5 days clotrimazole-betamethasone 1-0.05 % 1 appl topical BID 5 days diclofenac sodium 75 mg PO BID PRN docusate sodium 100 mg PO BID famotidine 20 mg PO BEDTIME PRN 90 days fluticasone furoate-vilanterol 200-25 mcg/dose (Breo Ellipta) 1 inh inhalation DAILY 30 days ipratropium-albuterol 0.5 mg-3 mg(2.5 mg base)/3 mL 3 mL inhalation Q4-6H PRN lisinopril 10 mg PO DAILY lorazepam 1 mg PO ONCE PRN metoprolol tartrate 100 mg PO BID 90 days omalizumab (Xolair) 300 mg (2 mL) subcut Q2W omeprazole 20 mg PO BID polyethylene glycol 3350 (Gavilax) 17 grams PO BID 60 days pyridoxine (vitamin B6) 100 mg PO DAILY sodium,potassium,mag sulfates 17.5-3.13-1.6 gram (Suprep Bowel Prep Kit) DILUTE; drink 1/2 at 6-8 pm and half at 11 PM- 1AM Tirosint (levothyroxine) 175 mcg PO DAILY NS topiramate 50 mg PO BID umeclidinium 62.5 mcg/actuation (Incruse Ellipta) 1 inh inhalation DAILY 30 days Ventolin HFA 90 mcg/actuation (albuterol sulfate) 2 puffs inhalation Q4-6H PRN 30 days NS HPI HPI 3m follow up: Details: Gloria is a 53-year-old female with past medical history of obesity, hypertension, hyperlipidemia who reported chest discomfort on last visit. She underwent a stress test and echocardiogram and now presents for follow-up. Today she reports that she still has episodes where her chest feels tight. This can happen at rest and with activity. She reports having high anxiety and stress levels. She is actually tearful at this visit. She has some shortness of breath with exertion which is not new. No shortness of breath at rest, PND, orthopnea or edema. She has been noticing some heart palpitations and feels that her heart rate is fast all the time. This is causing her much concern. She tells me that twice when having intercourse with her she lost her vision for less than a minute. This is making her very afraid. She says she had a TIA years ago. She has had no weakness of her extremities or mobility issues. [facility] Medical History (Updated 11/15/23 @ 11:14 by Lisa Lilly, [employer]) Dysphagia Diarrhea Well woman exam Abnormal finding on EKG Hx of flexible sigmoidoscopy Internal derangement of right shoulder Lump of left breast Lump of right breast Lump of axillary tail of right breast Chronic constipation Rotator cuff impingement syndrome of left shoulder Right forearm pain Colitis Hypertensive urgency Rotator cuff impingement syndrome Lateral epicondylitis of both elbows Fall IBS (irritable bowel syndrome) Abdominal bloating Tendinopathy of left rotator cuff History of TIA (transient ischemic attack) Hypercholesterolemia Vitamin D deficiency Multinodular thyroid Pancreatic cyst Constipation Thyroid nodule Diarrhea Rectal bleeding Esophageal spasm GERD (gastroesophageal reflux disease) Hypertension Asthma Kidney stones History of migraine headaches Fibromyalgia Allergic rhinitis Sciatic nerve pain Ovarian cyst Hypothyroidism Surgical History History of arthroscopic surgery of shoulder Hx of eye surgery History of breast lump/mass excision Hx of hemorrhoidectomy Hx of tubal ligation History of esophagogastroduodenoscopy (EGD) History of colonoscopy (~11/16/19) H/O: hysterectomy History of thyroidectomy (~11/2018) History of kidney surgery Hx of bilateral breast reduction surgery Hx of appendectomy History of cholecystectomy (~2003) H/O lithotripsy Family History Father Family history of high blood pressure History of high cholesterol Mother History of diabetes mellitus Family history of high blood pressure Family history of asthma History of fibromyalgia Liver disease Maternal Grandfather Colon cancer Family/Other Breast cancer Social History Household Members: Spouse Household Members Other:: daughter Housing: Apartment Are you a primary care nurse rn to a significant other at home: No Do you presently have visiting nurse or other home services: No Alcohol intake: never Patient Tobacco Use Status: Former Tobacco user Tobacco use type: Cigarette Years Smoked: 15 e-Cigarette/Vaping Use: Never Used Second Hand Smoke Exposure: No Substance Use Type: Marijuana service: No Current occupational status: disabled Current occupation: right handed Sexual orientation: Straight/Heterosexual Gender identity: Female Cognitive needs: No Hearing needs: No Vision needs: Yes Female Reproductive History Menstrual Age of Menarche: 10 Review of Systems Const All systems reviewed & are unremarkable except as noted in HPI and below Eyes Reports change in vision (twice during intercourse) ENT Denies dizziness Card Reports chest pain, Denies chest pain at rest, Denies chest pain with activity, Reports rapid heart rate, Denies pedal edema, Denies edema, Denies leg edema, Denies lightheadedness, Denies palpitations, Reports dyspnea, Denies dyspnea on exertion and Denies orthopnea Resp Denies cough, Reports dyspnea and Denies dyspnea on exertion GI Denies hematochezia and Denies change in stool character Musc Denies abnormal gait, Denies limited range of motion, Denies muscle cramps, Denies muscle weakness, Reports numbness (numb feeling on left side at times - no weakness or mobility issues), Denies radiating pain into limb, Denies stiffness and Denies tingling Neuro Denies abnormal gait, Denies dizziness, Reports numbness (numb feeling on left side at times - no weakness or mobility issues) and Denies tingling Endo Denies palpitations Physical Exam Vital Signs: Last Vital Signs Pulse 106 H 11/15/23 08:47 BP 144/92 H 11/15/23 08:47 BMI result Body Mass Index 36.6 Office Procedures EKG Details: Today, read by me, sinus tachycardia, rate 106, QTC 475 milliseconds [id number], Complete Assessment & Plan Assessment & Plan (1) Precordial chest pain: Code(s): R07.2 - Precordial pain Category: Medical Plan: Atypical sounding chest discomfort that is occurring at rest and with activity. EKG done last visit showed sinus rhythm with average heart rate 84. Echocardiogram done 09/11/2023 showing EF 60-65%, mild LVH, impaired relaxation, no valve abnormalities. Exercise stress echocardiogram done 11/06/2023 with exercise 6 minutes, report of mild chest tightness, no EKG or echo evidence of ischemia. Test results reviewed with her. Offered reassurance. She admits to being highly anxious over her health condition. Offered reassurance that current symptom is not likely to be cardiac in nature. (2) Palpitations: Code(s): R00.2 - Palpitations Category: Medical Plan: Patient reports heart palpitations like her heart is going fast all the time. EKG done today is showing sinus tachycardia, rate 106. She has normal [place], QRS and QTC intervals. She is on metoprolol tartrate 100 mg b.i.d.. Will check a Holter monitor to assess average heart rates and rhythm. TSH being checked today. She does describe TIA in the past. She also reports vision change during intercourse x2. Will be assessing for presence of PAF. (3) Hypertension: Code(s): I10 - Essential (primary) hypertension Category: Medical Qualifiers: Hypertension type: essential hypertension Qualified Code(s): I10 - Essential (primary) hypertension Plan: Elevated at this visit. Patient admits to being anxious and is tearful. This can account for the elevated blood pressure at this time. No medication changes made. (4) Alteration in vision: Code(s): H54.7 - Unspecified visual loss Category: Medical Plan: Patient reports brief loss of vision x2 during intercourse with her . She has not had vision changes at any other times. No speech or mobility issues. Carotid bruit not noted on exam however carotid pulsation is audible will check a carotid ultrasound to ensure no significant stenosis. Will forward this note to her PCP (5) [place] of T[place] (transient ischemic attack): [place] [facility] [place]-no residual Code(s): Z86.73 - Personal history of transient ischemic attack (TIA), and cerebral infarction without residual deficits Category: Medical Plan: As above (6) Preop cardiovascular exam: Code(s): Z01.810 - Encounter for preprocedural cardiovascular examination Category: Medical Plan: Preop for upper and lower endoscopy on 11/22/2023. She can proceed with a low to intermediate cardiac risk. Holter does not need to be completed prior to this test. Call/consult Cardiology if needed. Plan Time spent on chart review, documentation, interview and assessment Orders: Orders ECG 5 day holter monitor Today R00.2 - Palpitations US carotid duplex BI Today H54.7 - Unspecified visual loss, Z86.73 - Personal history of transient ischemic attack (TIA), and cerebral infarction without residual deficits Coding Level of Care Code Est Pt Level 4 (69587) Diagnoses Precordial chest pain R07.2 Palpitations R00.2 Essential hypertension I10 Hypertension type: essential hypertension Alteration in vision H54.7 History of TIA (transient ischemic attack) Z86.73 Preop cardiovascular exam Z01.810 CPT Codes EKG - CPT: [id number], Complete ([id number])
== END 2023-11-15 09:35 | disposition home or self-care (01) ==
PROVIDERS: PCP Internal Medicine; Visit Provider Nurse Practitioner Family
DX: R07.2 Precordial pain (principal); R00.2 Palpitations; I10 Essential (primary) hypertension; H54.7 Unspecified visual loss; Z86.73 Personal history of transient ischemic attack (TIA), and cerebral infarction without residual deficits; Z01.810 Encounter for preprocedural cardiovascular examination
CPT/HCPCS: 93010; 99214

== ENCOUNTER 2023-11-22 10:16 | Day surgery (SDC) | payer OTHER, SELFPAY ==
--- NOTE | 2023-10-09 11:30 | HO.ANESPROP2 ---
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 (Acute) Chronic diarrhea (Acute) Pelvic pain (Acute) Breast lump on left side at 1 o'clock position (Acute) Chest pain (Acute) Bilateral renal stones (Acute) Acute pancreatitis (Acute) Elevated lipase (Acute) Abdominal pain (Acute) PND (paroxysmal nocturnal dyspnea) (Acute) Right elbow pain (Acute) Migraine (Acute) Skin candidiasis (Acute) Pruritic rash (Acute) Intermittent constipation (Acute) Lichen simplex chronicus (Acute) Obesity (Acute) GERD (gastroesophageal reflux disease) (Acute) Vulvar lesion (Acute) Irritable bowel syndrome (Acute) Post-surgical hypothyroidism (Acute) History of repair of right rotator cuff (Acute) Environmental allergies (Acute) Depression (Acute) Adhesive capsulitis of left shoulder (Acute) Complete rotator cuff tear or rupture of right shoulder, not specified as traumatic (Acute) Hypercholesterolemia (Acute) Vitamin D deficiency (Acute) Pancreatic cyst (Acute) Hypertension (Acute) Asthma (Acute) Esophageal spasm (Acute) Fibromyalgia (Acute) Past Medical History Medical History Dysphagia Diarrhea Well woman exam Abnormal finding on EKG Hx of flexible sigmoidoscopy Internal derangement of right shoulder Lump of left breast Lump of right breast Lump of axillary tail of right breast Chronic constipation Rotator cuff impingement syndrome of left shoulder Right forearm pain Colitis Hypertensive urgency Rotator cuff impingement syndrome Lateral epicondylitis of both elbows Fall IBS (irritable bowel syndrome) Abdominal bloating Tendinopathy of left rotator cuff History of TIA (transient ischemic attack) Hypercholesterolemia Vitamin D deficiency Multinodular thyroid Pancreatic cyst Constipation Thyroid nodule Diarrhea Rectal bleeding Esophageal spasm GERD (gastroesophageal reflux disease) Hypertension Asthma Kidney stones History of migraine headaches Fibromyalgia Allergic rhinitis Sciatic nerve pain Ovarian cyst Hypothyroidism Family History Family History Father Family history of high blood pressure History of high cholesterol Mother History of diabetes mellitus Family history of high blood pressure Family history of asthma History of fibromyalgia Liver disease Maternal Grandfather Colon cancer Family/Other Breast cancer Family history of problems with anesthesia: No Surgical History Surgical History History of arthroscopic surgery of shoulder Hx of eye surgery History of breast lump/mass excision Hx of hemorrhoidectomy Hx of tubal ligation History of esophagogastroduodenoscopy (EGD) History of colonoscopy (~11/16/19) H/O: hysterectomy History of thyroidectomy (~11/2018) History of kidney surgery Hx of bilateral breast reduction surgery Hx of appendectomy History of cholecystectomy (~2003) H/O lithotripsy History of Problems with Anesthesia: No Social History Social History Household Members: Spouse Household Members Other:: daughter Housing: Apartment Are you a primary rn care transition to a significant other at home: No Do you presently have visiting nurse or other home services: No Alcohol intake: never Patient Tobacco Use Status: Former Tobacco user Tobacco use type: Cigarette Years Smoked: 15 e-Cigarette/Vaping Use: Never Used Second Hand Smoke Exposure: No Substance Use Type: Marijuana service: No Current occupational status: disabled Current occupation: right handed Sexual orientation: Straight/Heterosexual Gender identity: Female Cognitive needs: No Hearing needs: No Vision needs: Yes Meds Allergies Allergy/AdvReac Type Severity Reaction Status Date / Time pineapple [PINEAPPLE] Allergy Severe ANAPHYLAXIS Verified 10/04/23 12:58 adhesive tape Allergy Intermediate Blister Verified 10/04/23 12:58 Iodinated Contrast Media Allergy Intermediate SOB,RASH Verified 10/04/23 12:58 [IV Dye, Iodine Containing] levofloxacin [From Levaquin] Allergy Intermediate swelling/ra Verified 10/04/23 12:58 sh oxycodone [From Percocet] Allergy Intermediate rash/SOB Verified 10/04/23 12:58 aspirin [ASA] AdvReac Mild UPSET Verified 10/04/23 12:58 STOMACH Home Medications ?Medication ?Instructions ?Recorded ?Confirmed ?Last Taken ?Type budesonide-formoterol HFA 160 2 puff inhalation BID 11/30/22 08/28/23 Unknown History mcg-4.5 mcg/actuation aerosol inhaler (Symbicort) Exam Pertinent Lab Results Pertinent Lab Results: Laboratory Tests 08/28/23 10:12 WBC 9.0 Hgb 14.8 Hct 43.8 Plt Count 284 Sodium 141 Potassium 3.9 Chloride 108 Carbon Dioxide 24 BUN 15 Creatinine 0.77 Narrative Narrative: ECHO 08/2023 Conclusions: - 1. Normal LV ejection fraction of 60 65% with mild LVH with impaired relaxation filling pattern 2. Normal cardiac valvular Doppler 3. No gross pericardial effusion EKG 05/2023 Vent. Rate : 084 BPM Atrial Rate : 084 BPM P-R Int : 164 ms QRS Dur : 080 ms QT Int : 380 ms P-R-T Axes : 018 -14 028 degrees QTc Int : 449 ms Normal sinus rhythm Inferior infarct (cited on or before 22-MAY-2022) Abnormal ECG When compared with ECG of 22-MAY-2022 18:40, No significant change was found Assessment and Plan Assessment Anesthesia Assessment: Chart Reviewed Final Anesthetic Review Family History of Problems with Anesthesia: No History of Problems with Anesthesia: No
--- NOTE | 2023-11-21 11:47 | HO.ANESPROP2 ---
Documented by User: Cristy Gunderson NP 11/21/23 11:48 HPI - Anesthesia Eval Consult details Narrative: 53yo F for Upper Endoscopy and Colonoscopy FOR[facility], [facility] Active Problems Active Problems: All Active Problems Preop cardiovascular exam (Acute) History of TIA (transient ischemic attack) (Acute) Alteration in vision (Acute) Palpitations (Acute) Thumb tendonitis (Acute) MGUS (monoclonal gammopathy of unknown significance) (Acute) Hand pain (Acute) Precordial chest pain (Acute) Elevated immunoglobulin A (Acute) Hyper-IgE syndrome (Acute) Kidney stones (Acute) Acute diarrhea (Acute) Small intestinal bacterial overgrowth (Acute) Encounter for preoperative pulmonary examination (Acute) 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 (Acute) Chronic diarrhea (Acute) Pelvic pain (Acute) Breast lump on left side at 1 o'clock position (Acute) Chest pain (Acute) Bilateral renal stones (Acute) Acute pancreatitis (Acute) Elevated lipase (Acute) Abdominal pain (Acute) PND (paroxysmal nocturnal dyspnea) (Acute) Right elbow pain (Acute) Migraine (Acute) Skin candidiasis (Acute) Pruritic rash (Acute) Intermittent constipation (Acute) Lichen simplex chronicus (Acute) Obesity (Acute) GERD (gastroesophageal reflux disease) (Acute) Vulvar lesion (Acute) Irritable bowel syndrome (Acute) Post-surgical hypothyroidism (Acute) History of repair of right rotator cuff (Acute) Environmental allergies (Acute) Depression (Acute) Adhesive capsulitis of left shoulder (Acute) Complete rotator cuff tear or rupture of right shoulder, not specified as traumatic (Acute) Hypercholesterolemia (Acute) Vitamin D deficiency (Acute) Pancreatic cyst (Acute) Hypertension (Acute) Asthma (Acute) Esophageal spasm (Acute) Fibromyalgia (Acute) Past Medical History Medical History Dysphagia Diarrhea Well woman exam Abnormal finding on EKG Hx of flexible sigmoidoscopy Internal derangement of right shoulder Lump of left breast Lump of right breast Lump of axillary tail of right breast Chronic constipation Rotator cuff impingement syndrome of left shoulder Right forearm pain Colitis Hypertensive urgency Rotator cuff impingement syndrome Lateral epicondylitis of both elbows Fall IBS (irritable bowel syndrome) Abdominal bloating Tendinopathy of left rotator cuff History of TIA (transient ischemic attack) Hypercholesterolemia Vitamin D deficiency Multinodular thyroid Pancreatic cyst Constipation Thyroid nodule Diarrhea Rectal bleeding Esophageal spasm GERD (gastroesophageal reflux disease) Hypertension Asthma Kidney stones History of migraine headaches Fibromyalgia Allergic rhinitis Sciatic nerve pain Ovarian cyst Hypothyroidism Family History Family History Father Family history of high blood pressure History of high cholesterol Mother History of diabetes mellitus Family history of high blood pressure Family history of asthma History of fibromyalgia Liver disease Maternal Grandfather Colon cancer Family/Other Breast cancer Family history of problems with anesthesia: No Surgical History Surgical History History of arthroscopic surgery of shoulder Hx of eye surgery History of breast lump/mass excision Hx of hemorrhoidectomy Hx of tubal ligation History of esophagogastroduodenoscopy (EGD) History of colonoscopy (~11/16/19) H/O: hysterectomy History of thyroidectomy (~11/2018) History of kidney surgery Hx of bilateral breast reduction surgery Hx of appendectomy History of cholecystectomy (~2003) H/O lithotripsy History of Problems with Anesthesia: No Social History Social History Household Members: Spouse Household Members Other:: daughter Housing: Apartment Are you a primary rn palliative care to a significant other at home: No Do you presently have visiting nurse or other home services: No Alcohol intake: never Patient Tobacco Use Status: Former Tobacco user Tobacco use type: Cigarette Years Smoked: 15 e-Cigarette/Vaping Use: Never Used Second Hand Smoke Exposure: No Substance Use Type: Marijuana Have you been hit, kicked, punched, or otherwise hurt by someone within the past year? If so, by whom?: No Are you DNR?: No Advance Directives: No Advance Directives Information Provided: Yes Nutrition Risks: No Nutritional Risk service: No Current occupational status: disabled Current occupation: right handed Sexual orientation: Straight/Heterosexual Gender identity: Female Cognitive needs: No Hearing needs: No Vision needs: Yes Meds Allergies Allergy/AdvReac Type Severity Reaction Status Date / Time pineapple [PINEAPPLE] Allergy Severe ANAPHYLAXIS Verified 11/15/23 08:56 adhesive tape Allergy Intermediate Blister Verified 11/15/23 08:56 Iodinated Contrast Media Allergy Intermediate SOB,RASH Verified 11/15/23 08:56 [IV Dye, Iodine Containing] levofloxacin [From Levaquin] Allergy Intermediate swelling/ra Verified 11/15/23 08:56 sh oxycodone [From Percocet] Allergy Intermediate rash/SOB Verified 11/15/23 08:56 aspirin [ASA] AdvReac Mild UPSET Verified 11/15/23 08:56 STOMACH Home Medications ?Medication ?Instructions ?Recorded ?Confirmed ?Last Taken ?Type budesonide-formoterol HFA 160 2 puff inhalation BID 11/30/22 11/15/23 Unknown History mcg-4.5 mcg/actuation aerosol inhaler (Symbicort) omeprazole 20 mg capsule,delayed 20 mg PO BID 11/15/23 11/15/23 11/22/23 History release topiramate 50 mg tablet 50 mg PO BID 11/15/23 11/15/23 Unknown History levothyroxine 175 mcg tablet 175 mcg PO DAILY 11/22/23 11/22/23 11/22/23 History Assessment and Plan Assessment Anesthesia Assessment: Chart Reviewed Final Anesthetic Review Family History of Problems with Anesthesia: No History of Problems with Anesthesia: No Documented by User: May Cardona MD 11/22/23 11:46 PMFSH Past Medical History Medical History Dysphagia Diarrhea Well woman exam Abnormal finding on EKG Hx of flexible sigmoidoscopy Internal derangement of right shoulder Lump of left breast Lump of right breast Lump of axillary tail of right breast Chronic constipation Rotator cuff impingement syndrome of left shoulder Right forearm pain Colitis Hypertensive urgency Rotator cuff impingement syndrome Lateral epicondylitis of both elbows Fall IBS (irritable bowel syndrome) Abdominal bloating Tendinopathy of left rotator cuff History of TIA (transient ischemic attack) Hypercholesterolemia Vitamin D deficiency Multinodular thyroid Pancreatic cyst Constipation Thyroid nodule Diarrhea Rectal bleeding Esophageal spasm GERD (gastroesophageal reflux disease) Hypertension Asthma Kidney stones History of migraine headaches Fibromyalgia Allergic rhinitis Sciatic nerve pain Ovarian cyst Hypothyroidism Family History Family History Father Family history of high blood pressure History of high cholesterol Mother History of diabetes mellitus Family history of high blood pressure Family history of asthma History of fibromyalgia Liver disease Maternal Grandfather Colon cancer Family/Other Breast cancer Surgical History Surgical History History of arthroscopic surgery of shoulder Hx of eye surgery History of breast lump/mass excision Hx of hemorrhoidectomy Hx of tubal ligation History of esophagogastroduodenoscopy (EGD) History of colonoscopy (~11/16/19) H/O: hysterectomy History of thyroidectomy (~11/2018) History of kidney surgery Hx of bilateral breast reduction surgery Hx of appendectomy History of cholecystectomy (~2003) H/O lithotripsy Social History Social History Household Members: Spouse Household Members Other:: daughter Housing: Apartment Are you a primary rn palliative care to a significant other at home: No Do you presently have visiting nurse or other home services: No Alcohol intake: never Patient Tobacco Use Status: Former Tobacco user Tobacco use type: Cigarette Years Smoked: 15 e-Cigarette/Vaping Use: Never Used Second Hand Smoke Exposure: No Substance Use Type: Marijuana Have you been hit, kicked, punched, or otherwise hurt by someone within the past year? If so, by whom?: No Are you DNR?: No Advance Directives: No Advance Directives Information Provided: Yes Nutrition Risks: No Nutritional Risk service: No Current occupational status: disabled Current occupation: right handed Sexual orientation: Straight/Heterosexual Gender identity: Female Cognitive needs: No Hearing needs: No Vision needs: Yes Meds Allergies Allergy/AdvReac Type Severity Reaction Status Date / Time pineapple [PINEAPPLE] Allergy Severe ANAPHYLAXIS Verified 11/15/23 08:56 adhesive tape Allergy Intermediate Blister Verified 11/15/23 08:56 Iodinated Contrast Media Allergy Intermediate SOB,RASH Verified 11/15/23 08:56 [IV Dye, Iodine Containing] levofloxacin [From Levaquin] Allergy Intermediate swelling/ra Verified 11/15/23 08:56 sh oxycodone [From Percocet] Allergy Intermediate rash/SOB Verified 11/15/23 08:56 aspirin [ASA] AdvReac Mild UPSET Verified 11/15/23 08:56 STOMACH Home Medications ?Medication ?Instructions ?Recorded ?Confirmed ?Last Taken ?Type budesonide-formoterol HFA 160 2 puff inhalation BID 11/30/22 11/15/23 Unknown History mcg-4.5 mcg/actuation aerosol inhaler (Symbicort) omeprazole 20 mg capsule,delayed 20 mg PO BID 11/15/23 11/15/23 11/22/23 History release topiramate 50 mg tablet 50 mg PO BID 11/15/23 11/15/23 Unknown History levothyroxine 175 mcg tablet 175 mcg PO DAILY 11/22/23 11/22/23 11/22/23 History Exam Airway Mallampati Class: II TM Dist: >3cm Neck ROM: Full Heart: rrr Lungs: cta Assessment and Plan Assessment Anesthesia Assessment: Anesthesia Plan Discussed Final Anesthetic Review NPO: Yes ASA Class: III Final Preanesthetic Review: No Changes in Pt Med Stat, Meds/Allgs Chart Reviewed, Consent Obtained/Reviewed and Anes Risks/Benef Reviewed Patient Risk: Intermediate Procedure Risk: Low Anesthetic Plan Anesthetic Plan: MAC: Disposition: Standard PACU
[2023-11-22 10:45] VITALS: BP 159/92; PULSE 80; RESP 20; TEMP 36.1; O2SAT 97; BMI 35.7
[2023-11-22] MEDS: Lactated Ringers 1,000 ML 100 ML IVCONT (11:06)
--- NOTE | 2023-11-22 11:59 | P.HPSUR_ITS ---
Pre-Procedural Eval Section A - 24 Hr Update-Section A only Date of Service: 11/22/23 Section B - Complete if H&P > 30 days Chief Complaint: Other specified abnormal immunological findings in Relevant Family History (Specify if Yes): No Relevant Social History: None Present Medications: see Short Stay Collaborative assessment Medical History: Significant History (Dysphagia Diarrhea Well woman exam Abno rmal finding on EKG Hx of flexible sigmoidoscopy Internal derangement of right shoulder Lump of left breast Lump of right breast Lump of axillary tail of right breast Chronic constipation Rotator cuff impingement syndrome of left shoulder Right forearm pain Col) History of Previous Operations: Relevant previous surgery/procedure and date(s) (History of arthroscopic surgery of shoulder Hx of eye surgery History of breast lump/mass excision Hx of hemorrhoidectomy Hx of tubal ligation History of esophagogastroduodenoscopy (EGD) History of colonoscopy (~11/16/19) H/O: hyste rectomy History of thyroidectomy (~11/2018) History of kidney surger) Allergies: Allergies Allergy/AdvReac Type Severity Reaction Status Date / Time pineapple [PINEAPPLE] Allergy Severe ANAPHYLAXIS Verified 11/15/23 08:56 adhesive tape Allergy Intermediate Blister Verified 11/15/23 08:56 Iodinated Contrast Media Allergy Intermediate SOB,RASH Verified 11/15/23 08:56 [IV Dye, Iodine Containing] levofloxacin [From Levaquin] Allergy Intermediate swelling/ra Verified 11/15/23 08:56 sh oxycodone [From Percocet] Allergy Intermediate rash/SOB Verified 11/15/23 08:56 aspirin [ASA] AdvReac Mild UPSET Verified 11/15/23 08:56 STOMACH Review of Systems Sugical H&P ROS: Negative: Constitution, Cardiovascular, Respiratory, Neurological, Psychiatric, Hem-Onc, Allergic/Immunologic, Gastrointestinal, Genitourinary, Musculoskeletal, Integumentary, Endocrine and Eyes/Ears/Nose/Throat Exam Surgical H&P Exam: Normal: HEENT, Normal: Heart, Normal: Lungs, Normal: Extremities, Normal: Abdomen, Normal: Skin and Normal: Neurological Plan Diagnosis/Plan: Unchanged I have reviewed the history and physical and performed a pertinent physical examination on my patient. No changes have occurred unless specified. Time Spent With Patient Time: Total time managing care of this patient today ____ minutes.
--- NOTE | 2023-11-22 12:44 | HO.OPN-COLON ---
Colonoscopy Operative Note Operative Note Date of Service: 11/22/23 Narrative: Operative Information Procedure Description: EGD, Colonoscopy Indication: abn bowel habit, abdominal pain Anesthesia: MAC FLEXIBLE TRANSORAL UPPER GASTROINTESTINAL ENDOSCOPY AND COLONOSCOPY PROCEDURE NOTE UPPER ENDOSCOPY Consent: Indications for the procedure and potential complications of bleeding, perforation, reaction to medications and missed diagnosis were discussed with the patient and informed consent was obtained. Instrument: Olympus GIF H 190 J mid size upper endoscope Monitoring: Vital signs and clinical assessment, continuous EKG monitoring, Pulse oximetry, Carbon Dioxide monitoring and blood pressure monitoring were done throughout the procedure. Procedure: The patient was placed in the left lateral decubitis position and pre-procedure medications were administered and a bite block was placed. The endoscope was inserted into the mouth and advanced under direct vision to the third part of duodenum. A careful inspection was made as the upper endoscope was withdrawn including a retroflexed examination of the proximal stomach; Findings and interventions are described below. Findings: Larynx:normal Esophagus: GE junction at 32 cm, diaphragm hiatus at 35 cm, consistent with 3 cm sliding hiatal hernia, erosive esophagitis noted, LA grade A --esophageal inlet patch noted Stomach: Patchy erythema. Biopsies were obtained. Grade 2 flap valve on retroflexed examination of the cardia. Duodenum: Normal bulb and descending duodenum, bx taken Intervention: Biopsies as noted above, COLONOSCOPY Instrument: Olympus variable stiffness pediatric scope 190L Colonoscopy Monitoring: Vital signs and clinical assessment, continuous EKG monitoring, Pulse oximetry, Carbon Dioxide monitoring and blood pressure monitoring were done throughout the procedure. Colon withdrawal time was 10 minutes. Procedure: The patient was placed in the left lateral decubitis position and pre-procedure medications were administered. After a digital rectal examination of the ano-rectum, the video colonoscope was inserted into the rectum and advanced through the colon to the cecum/TI. The colonoscope was slowly withdrawn in a retrograde panoramic fashion and the colon mucosa was carefully examined including a retroflexed view of the rectum. Findings and interventions are described below. Procedure Difficulty:moderate Findings: Terminal Ileum-normal, random bx taken Random colon bx taken Cecum:normal Ascending Colon: normal Transverse Colon -normal Descending Colon:normal Sigmoid Colon: normal Rectum: Retroflexion with small internal hemorrhoids, grade I with skin tags Anorectum - normal Colon preparation: [place] Bowel Preparation Scale Right colon; 1-2 Transverse colon: 2 Left colon; 1-2 (0 = Unprepared colon segment with mucosa not seen due to solid stool that cannot be cleared. 1 = Portion of mucosa of the colon segment seen, but other areas of the colon segment not well seen due to staining, residual stool and/or opaque liquid. 2 = Minor amount of residual staining, small fragments of stool and/or opaque liquid, but mucosa of colon segment seen well. 3 = Entire mucosa of colon segment seen well with no residual staining, small fragments of stool or opaque liquid) Impression and Post Procedure Diagnosis: Endoscopy Findings: Colonoscopy Findings: internal hemorrhoids with skin tags Plan: Await Pathology results Repeat Colonoscopy in 1 year due to areas of fair prep or earlier if clinically indicated High fiber diet leaflet avoid straining at stool, epsom salts and sitz bath, anusol supps or cream reflux precautions if H pylori pos then treat Above findings were reviewed with the patient and relevant handouts were provided if indicated.
[2023-11-22 13:10] VITALS: BP 120/80; PULSE 75; RESP 16; TEMP 36.1; O2SAT 97
[2023-11-22 13:25] VITALS: BP 141/98; PULSE 80; RESP 16; TEMP 36.1; O2SAT 98
[2023-11-22 14:09] LABS: CDiff Gene PCR NEGATIVE (Negative)
[2023-11-22 14:56] LABS: Adenovirus F 40/41 Not Detected (Not Detect.); Astrovirus Not Detected (Not Detect.); Campylobacter Not Detected (Not Detect.); Cryptosporidium Not Detected (Not Detect.); Cyclospora cayetanensis Not Detected (Not Detect.); E. coli EAEC Not Detected (Not Detect.); E. coli EPEC Not Detected (Not Detect.); E. coli ETEC Not Detected (Not Detect.); E. coli STEC Not Detected (Not Detect.); Entamoeba histolytica Not Detected (Not Detect.); Giardia lamblia Not Detected (Not Detect.); Norovirus GI/GII Not Detected (Not Detect.); Plesiomonas shigelloides Not Detected (Not Detect.); Rotavirus A Not Detected (Not Detect.); Salmonella Not Detected (Not Detect.); Sapovirus Not Detected (Not Detect.); Shigella sp./EIEC Not Detected (Not Detect.); Vibrio Not Detected (Not Detect.); Vibrio Cholerae Not Detected (Not Detect.); Yersinia enterocolitica Not Detected (Not Detect.)
[2023-11-28 14:23] LABS: Lactoferrin, Fecal, Quant. <6.25 mcg/mL (<7.25)
== END 2023-11-22 13:56 | disposition home or self-care (01) ==
PROVIDERS: PCP Internal Medicine; Visit Provider Internal Medicine Gastroenterology
PROC: (CPT 43249; principal; 2023-11-22 13:50)
DX: K29.70 Gastritis, unspecified, without bleeding (principal); K22.10 Ulcer of esophagus without bleeding; K44.9 Diaphragmatic hernia without obstruction or gangrene; R76.8 Other specified abnormal immunological findings in serum; K52.9 Noninfective gastroenteritis and colitis, unspecified; K21.9 Gastro-esophageal reflux disease without esophagitis; D82.4 Hyperimmunoglobulin E [IgE] syndrome; K64.0 First degree hemorrhoids; K64.4 Residual hemorrhoidal skin tags; I10 Essential (primary) hypertension; E78.00 Pure hypercholesterolemia, unspecified; J45.909 Unspecified asthma, uncomplicated; Z79.02 Long term (current) use of antithrombotics/antiplatelets; Z79.899 Other long term (current) drug therapy; Z86.010 Personal history of colon polyps; Z87.891 Personal history of nicotine dependence
CPT/HCPCS: 43249; 43239; 45380; 83631; 87493; 87507; 88305; 88313; 88341; 88342; C1726; J1596; J2704

== ENCOUNTER → 2023-11-22 10:16 | Outpatient (BNV) | payer OTHER, SELFPAY | PROVIDERS: PCP Internal Medicine; Visit Provider Internal Medicine Gastroenterology | DX: R19.4 Change in bowel habit (principal); K64.8 Other hemorrhoids; K64.4 Residual hemorrhoidal skin tags; K20.90 Esophagitis, unspecified without bleeding; Q39.8 Other congenital malformations of esophagus; K29.70 Gastritis, unspecified, without bleeding | CPT/HCPCS: 43239; 45380 ==

== ENCOUNTER 2023-11-23 13:40 | Outpatient (AMB) | payer OTHER, SELFPAY ==
--- NOTE | 2023-11-23 13:47 | MHC.OFFVIS ---
Vital Signs 11/23/23 13:48 Height 5 ft 5 in Weight 200 lb BMI 33.3 Handedness Right Intake Visit Reasons: New Prob - left hand pain Intake Note: Gloria is a 53 year old right hand dominant female who presents today for a new problem visit with complaints of left hand pain that started approximately 7 years ago. Patient reports her left thumb was hyper-extended, popped it back in herself but no proper treatment was given to her she says. She reports over the last 2 year her symptoms have been exacerbating. She said she was advised to take anti-inflammatory but these did not give her relief. Patient reports stabbing/sharp pain at base of her thumb and entire thumb of left hand that is radiating up into her elbow. She expresses the base of her thumb swells up and gets very hot. She reports her thumb locks a lot. Patient does not want to get an injection without knowing what is going on inside her thumb. She would be willing to try a brace. Allergies pineapple [PINEAPPLE] Allergy (Severe, Verified 11/23/23 13:49) ANAPHYLAXIS adhesive tape Allergy (Intermediate, Verified 11/23/23 13:49) Blister Iodinated Contrast Media [IV Dye, Iodine Containing] Allergy (Intermediate, Verified 11/23/23 13:49) SOB,RASH levofloxacin [From Levaquin] Allergy (Intermediate, Verified 11/23/23 13:49) swelling/rash oxycodone [From Percocet] Allergy (Intermediate, Verified 11/23/23 13:49) rash/SOB aspirin [ASA] Adverse Reaction (Mild, Verified 11/23/23 13:49) UPSET STOMACH HPI HPI New Prob - left hand pain: Details: Patient is a 53-year-old female who presents for evaluation of the left hand and thumb pain, ongoing for approximately 2-1/2 years. The patient reports that this pain is primarily at the base of her left thumb, but does radiate into the radial styloid and circumferentially around the left wrist. The patient also states that occasionally this pain radiates into the left elbow. The patient reports that the base of her left thumb does get red and swollen occasionally. Patient states that this makes it difficult for her to lift anything in her left hand. The patient also endorses bilateral hand numbness and tingling, ongoing for approximately 9 years. The patient reports that these symptoms are intermittent, but daily, and worse at night. The patient states that this symptoms affect all fingers, primarily the thumb, middle finger, and small finger. No other acute complaints or concerns at this time [facility] Medical History Dysphagia Diarrhea Well woman exam Abnormal finding on EKG Hx of flexible sigmoidoscopy Internal derangement of right shoulder Lump of left breast Lump of right breast Lump of axillary tail of right breast Chronic constipation Rotator cuff impingement syndrome of left shoulder Right forearm pain Colitis Hypertensive urgency Rotator cuff impingement syndrome Lateral epicondylitis of both elbows Fall IBS (irritable bowel syndrome) Abdominal bloating Tendinopathy of left rotator cuff History of TIA (transient ischemic attack) Hypercholesterolemia Vitamin D deficiency Multinodular thyroid Pancreatic cyst Constipation Thyroid nodule Diarrhea Rectal bleeding Esophageal spasm GERD (gastroesophageal reflux disease) Hypertension Asthma Kidney stones History of migraine headaches Fibromyalgia Allergic rhinitis Sciatic nerve pain Ovarian cyst Hypothyroidism Surgical History History of arthroscopic surgery of shoulder Hx of eye surgery History of breast lump/mass excision Hx of hemorrhoidectomy Hx of tubal ligation History of esophagogastroduodenoscopy (EGD) History of colonoscopy (~11/16/19) H/O: hysterectomy History of thyroidectomy (~11/2018) History of kidney surgery Hx of bilateral breast reduction surgery Hx of appendectomy History of cholecystectomy (~2003) H/O lithotripsy Family History Father Family history of high blood pressure History of high cholesterol Mother History of diabetes mellitus Family history of high blood pressure Family history of asthma History of fibromyalgia Liver disease Maternal Grandfather Colon cancer Family/Other Breast cancer Social History Household Members: Spouse Household Members Other:: daughter Housing: Apartment Are you a primary personal care home administrator to a significant other at home: No Do you presently have visiting nurse or other home services: No Alcohol intake: never Patient Tobacco Use Status: Former Tobacco user Tobacco use type: Cigarette Years Smoked: 15 e-Cigarette/Vaping Use: Never Used Second Hand Smoke Exposure: No Substance Use Type: Marijuana service: No Current occupational status: disabled Current occupation: right handed Sexual orientation: Straight/Heterosexual Gender identity: Female Cognitive needs: No Hearing needs: No Vision needs: Yes Female Reproductive History Menstrual Age of Menarche: 10 Review of Systems Const All systems reviewed & are unremarkable except as noted in HPI and below Physical Exam Vital Signs: BMI result Body Mass Index 33.3 Extrem Other: Patient is alert, oriented, and in no acute distress. Neuro: Diminished sensation of the tip of the left thumb Normal sensation of the tips of all other digits of the left hand at this time Vascular: Cap refill brisk Pain: Patient reports significant tenderness to palpation about the basal joint of the left thumb Patient also reports tenderness to palpation of the radial styloid Patient reports more minor tenderness to palpation diffusely throughout the left wrist, but states that it is more focal at the radial styloid and left 1st CMC joint ROM: Patient has limited range of motion about the thumb due to pain, but there is no mechanical obstruction noted on passive range of motion Patient is able to flex and extend all other digits of the left hand fully without difficulty Skin: No lacerations or abrasions. General: Mild edema noted about the left basal joint No ecchymosis, erythema, or evidence of infection. Positive Gabriel test on the left Psych: Appears grossly normal Affect normal Attitude cooperative Results Reviewed Results Reviewed: X-rays obtained in the office today and independently reviewed by me, Dale Roa PA-C, demonstrate [id number] arthritis of the 1st CMC joint of the left hand. Assessment & Plan Assessment & Plan (1) Hand pain: Code(s): M79.643 - Pain in unspecified hand Category: Medical Qualifiers: Laterality: left Qualified Code(s): M79.642 - Pain in left hand (2) De Quervain's tenosynovitis, left: Code(s): M65.4 - Radial styloid tenosynovitis [de Quervain] Category: Medical (3) Arthritis of carpometacarpal (CMC) joint of left thumb: Code(s): M18.12 - Unilateral primary osteoarthritis of first carpometacarpal joint, left hand Category: Medical (4) Numbness and tingling in both hands: Code(s): R20.0 - Anesthesia of skin; R20.2 - Paresthesia of skin Category: Medical Plan 1. CMC arthritis of left thumb 2. De Quervain tenosynovitis, left Patient is educated about this condition Patient is educated about the treatment options available Patient is educated that the mainstay of treatment for both basal joint arthritis and de Quervain tenosynovitis are injections, but the patient states that she would like to avoid all injections at this time Patient is provided with Coban to wrap around the left thumb and wrist, and is informed that we will call her when we have a comfort cool thumb spica brace in her size Patient is amenable to this plan Patient is also referred to occupational hand therapy for range of motion, strengthening, stabilization of the left hand Patient will follow-up as needed with any acute concerns 3. Bilateral hand numbness and tingling Symptoms intermittent, but daily, worse at night At this time, the patient is referred for EMG and nerve conduction study to assess the health of bilateral upper extremities Patient is amenable to this plan Patient will follow-up after nerve conduction study for results review and discussion of further treatment options, sooner with any acute concerns Orders: Orders OT Evaluation and Treatment Today M79.642 - Pain in left hand NE electromyogram (EMG) Today R20.0 - Anesthesia of skin, R20.2 - Paresthesia of skin NE nerve conduction velocity Today R20.0 - Anesthesia of skin, R20.2 - Paresthesia of skin Coding Level of Care Code New Pt Level 3 (32305) Diagnoses Pain of left hand M79.642 Laterality: left De Quervain's tenosynovitis, left M65.4 Arthritis of carpometacarpal (CMC) joint of left thumb M18.12 Numbness and tingling in both hands R20.0; R20.2
[2023-11-23 13:48] VITALS: BMI 33.3
== END 2023-11-23 14:26 | disposition home or self-care (01) ==
PROVIDERS: PCP Internal Medicine
DX: M65.4 Radial styloid tenosynovitis [de Quervain] (principal); M18.12 Unilateral primary osteoarthritis of first carpometacarpal joint, left hand; R20.0 Anesthesia of skin; R20.2 Paresthesia of skin
CPT/HCPCS: 99203

== ENCOUNTER → 2023-11-23 13:40 | Outpatient (BNVA) | payer OTHER, SELFPAY | PROVIDERS: PCP Internal Medicine | DX: M79.642 Pain in left hand (principal); M65.4 Radial styloid tenosynovitis [de Quervain]; M18.12 Unilateral primary osteoarthritis of first carpometacarpal joint, left hand; R20.2 Paresthesia of skin; R20.0 Anesthesia of skin | CPT/HCPCS: 99202 ==

== ENCOUNTER 2023-11-26 09:38 | Outpatient (REF) | payer OTHER, SELFPAY ==
--- NOTE | ~2023-11-26 | US_ITS ---
EXAMINATION: US EXTRACRANIAL CAROTID DUPLEX, BILATERAL CLINICAL INFORMATION: Unspecified visual loss COMPARISON: None available. TECHNIQUE: Real-time ultrasound and Doppler techniques (integrating B-mode 2-D vascular images, Doppler spectral analysis and color-flow Doppler imaging) were utilized to interrogate the extracranial carotid arteries, the vertebral arteries and proximal subclavian arteries bilaterally. The degree of stenosis is determined by criteria similar to NASCET. FINDINGS: Right Side: 1. There is no atherosclerotic plaque seen in the bifurcation/proximal ICA region. 2. The common carotid artery PSV proximally is 72 cm/s and distally 76 cm/s. 3. The proximal internal carotid artery velocities are 70 cm/s systolic and 27 cm/s diastolic. 4. The proximal external carotid artery PSV is 91 cm/s. 5. The vertebral artery shows antegrade flow. 6. The subclavian artery waveforms are normal. Left Side: 1. There is mild atherosclerotic plaque seen in the bifurcation/proximal ICA region. 2. The common carotid artery PSV proximally is 92 cm/s and distally 93 cm/s. 3. The proximal internal carotid artery velocities are 62 cm/s systolic and 23 cm/s diastolic. 4. The proximal external carotid artery PSV is 65 cm/s. 5. The vertebral artery shows antegrade flow. 6. The subclavian artery waveforms are normal. US/US carotid duplex BI IMPRESSION: 1. RIGHT: Normal right internal carotid artery without atherosclerotic plaque or hemodynamically significant stenosis. 2. LEFT: Minimal, non-hemodynamically significant stenosis of the proximal left internal carotid artery corresponding to a 0-49% stenosis by velocity criteria. Electronically signed by: Alonzo Draper DO 11/26/2023 04:52 PM EDT
== END 2023-11-26 09:39 | disposition home or self-care (01) ==
LOC: HO.US 09:38
PROVIDERS: PCP Internal Medicine; Visit Provider Nurse Practitioner Family
DX: H54.7 Unspecified visual loss (principal); Z86.73 Personal history of transient ischemic attack (TIA), and cerebral infarction without residual deficits
CPT/HCPCS: 93880

== ENCOUNTER → 2023-12-04 10:27 | Outpatient (REF) | payer OTHER, SELFPAY ==
--- NOTE | 2023-12-04 10:30 | HM_ITS ---
* Total monitoring time 5 days. * Underlying rhythm is sinus with an average rate of 93/Min. * No significant ectopy or tachyarrhythmias. * No significant pauses or AV blocks. * Patient marker used in association with sinus rhythm and sinus tachycardia. * Symptoms in patient diary including tiredness, fatigue, dizziness, lightheaded, headache correlates with sinus rhythm. MTDD
== END ==
LOC: HO.CARD 10:27
PROVIDERS: PCP Internal Medicine; Visit Provider Nurse Practitioner Family
DX: R00.2 Palpitations (principal)
CPT/HCPCS: 93242

== ENCOUNTER → 2023-12-04 10:30 | Outpatient (BNV) | payer OTHER, SELFPAY | PROVIDERS: PCP Internal Medicine; Visit Provider Internal Medicine | DX: R00.0 Tachycardia, unspecified (principal) | CPT/HCPCS: 93244 ==

== ENCOUNTER 2023-12-11 08:51 | Emergency (ER) | payer OTHER, SELFPAY ==
--- NOTE | ~2023-12-11 | CT_ITS ---
EXAMINATION: CT HEAD WITHOUT CONTRAST CLINICAL INFORMATION: Severe headache, blurred vision COMPARISON: None available. TECHNIQUE: Contiguous axial imaging was performed from the skull base to vertex without intravenous administration of contrast. This CT examination was performed using dose optimization techniques as appropriate, variously including the following: *Automated exposure control *Adjustment of mA and/or kV according to patient size (this includes techniques or standardized protocols for targeted exams where dose is matched to indication/reason for exam; i.e. extremities or head) *Use of iterative reconstruction technique DLP: Except 87 mGy-cm FINDINGS: The ventricles and sulci are normal in size and configuration. No acute hemorrhage, mass effect or shift is evident. Cedillo-white differentiation is maintained. In the posterior fossa, the brainstem, cerebellum and fourth ventricle image normally. The orbits and calvarium are intact. The paranasal sinuses and mastoid air cells are well pneumatized and clear. CT/CT head/brain wo IV con IMPRESSION: 1. Unremarkable noncontrast brain CT. No acute hemorrhage, mass effect or shift. Electronically signed by: Rolando Ch MD 12/11/2023 10:52 AM EDT
--- NOTE | ~2023-12-11 | CT_ITS ---
EXAMINATION: Mastoid CT without contrast CLINICAL INFORMATION: Ear pain and bilateral mastoid pain COMPARISON: CT head same date TECHNIQUE: Contiguous axial imaging of the head was performed without the administration of IV contrast. Axial multidetector volumetric images were also obtained through the facial bones without contrast from the frontal sinuses through the mandible. Multiplanar reconstructed images in coronal and sagittal orientations were submitted. DOSE: 247 mGy-cm FINDINGS: MAXILLOFACIAL: The right mastoid air cells are clear. The right external auditory canal and middle ear is clear. The right middle ear ossicles are well delineated. The scutum is preserved. The attic is well aerated. The left mastoid air cells are clear. The left external auditory canal and middle ear is clear. The left middle ear ossicles are preserved as is the scutum. The left attic is well aerated. Bony structures are intact. No evidence for mass effect on the right or left internal auditory canals. The sphenoid sinuses clear. There is mild mucoperiosteal thickening in the ethmoid sinuses. The frontal sinuses are clear. There is minimal mucosal thickening within the inferior right maxillary sinus. The right and left TMJs appear normal. Zygomatic arches are intact. Orbits and retrobulbar regions are intact. CT/CT mastoid IMPRESSION: Unremarkable exam. Electronically signed by: Bentley Renner MD 12/11/2023 04:40 PM EDT
[2023-12-11 09:22] VITALS: BP 189/105; PULSE 90; RESP 16; TEMP 36.9; O2SAT 100; BMI 36.2
[2023-12-11 09:53] LABS: MANUAL DIFF FLAG NO
[2023-12-11 09:54] LABS: Basophils Absolute Auto 0.1 X10*3/uL (0.0-0.2); Basophils Percent Auto 0.7 % (0-2); Eosinophils Absolute Auto 0.2 X10*3/uL (0.0-0.4); Eosinophils Percent Auto 2.9 % (0-4); Hematocrit 43.4 % (37.0-47.0); Hemoglobin 14.9 g/dl (12.0-16.0); Imm Gran Abs Auto 0.02 X10*3/uL (0.00-0.03); Imm Gran Pct Auto 0.2 % (0.0-0.4); Lymphocytes Absolute Auto 2.2 X10*3/uL (1.2-4.9); Lymphocytes Percent Auto 26.9 % (20-40); Mean Corpuscular HGB Conc 34.3 g/dl (31.0-35.0); Mean Corpuscular Hemoglobin 31.3 pg (27.0-33.0); Mean Corpuscular Volume 91.2 fL (80.0-98.0); Mean Platelet Volume 9.7 fL (9.4-12.3); Monocytes Absolute Auto 0.6 X10*3/uL (0.1-1.2); Monocytes Percent Auto 6.7 % (2-11); Neutrophils Absolute Auto 5.1 x10*3/uL (2.0-8.3); Neutrophils Percent Auto 62.6 % (45-73); Platelet Count 286 X10*3/uL (160-400); Red Blood Count 4.76 X10*6/uL (4.20-5.50); Red Cell Distribution Width 12.7 % (11.0-16.0); White Blood Count 8.2 X10*3/uL (4.8-10.8)
--- NOTE | 2023-12-11 10:04 | ED_ITS ---
HPI - Ear Problem General Chief complaint: Ear Problems Stated complaint: Discomfort both ears Time Seen by Provider: 12/11/23 12:48 Source: patient, RN notes reviewed and old records reviewed Mode of arrival: ambulatory Limitations: no limitations History of Present Illness ED Provider: MCKENNA RICHARDS PA-C HPI Narrative: 53 year old female with pmhx significant for HTN and migraines presents to the ED today for evaluation of bilateral ear pain (left x2 years and right x1 week). Admits to clear drainage from the ears. Reports associated right frontal headache and scalp tenderness which started at the same time as her right ear pain. Endorses intermittent blurred vision as well. Trialing Tylenol at home without improvement. Denies trauma/ injury. Admits to recent elevated blood pressures. 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 Currently takes amlodipine, metoprolol and lisinopril for this. Reports taking these medications this morning. Denies dizziness, hearing changes, fever, chills, eye pain, chest pain, sob, palptiations. No hx of DM. Related Data Home Medications ?Medication ?Instructions ?Recorded ?Confirmed budesonide-formoterol HFA 160 2 puff inhalation BID 11/30/22 11/15/23 mcg-4.5 mcg/actuation aerosol inhaler (Symbicort) omeprazole 20 mg capsule,delayed 20 mg PO BID 11/15/23 11/15/23 release topiramate 50 mg tablet 50 mg PO BID 11/15/23 11/15/23 levothyroxine 175 mcg tablet 175 mcg PO DAILY 11/22/23 11/22/23 Previous Rx's ?Medication ?Instructions ?Recorded omalizumab 150 mg/mL subcutaneous 300 mg (2 mL) subcut Q2W #4 mL 03/25/20 syringe (Xolair) Ventolin HFA 90 mcg/actuation 2 puff inhalation Q4-6H PRN 12/29/21 aerosol inhaler (albuterol sulfate) shortness of breath or wheezing 30 days #1 ea fluticasone furoate 200 1 inh inhalation DAILY 30 days #60 03/27/22 mcg-vilanterol 25 mcg/dose ea inhalation powder (Breo Ellipta) umeclidinium 62.5 mcg/actuation 1 inh inhalation DAILY 30 days #30 03/27/22 blister powder for inhalation ea (Incruse Ellipta) atorvastatin 10 mg tablet (Lipitor) 10 mg PO DAILY #30 tabs 05/31/22 docusate sodium 100 mg capsule 100 mg PO BID #60 caps 06/04/22 ipratropium 0.5 mg-albuterol 3 mg 3 ml inhalation Q4-6H PRN for 08/18/22 (2.5 mg base)/3 mL nebulization wheezing #180 mL soln lorazepam 1 mg tablet 1 mg PO ONCE PRN anxiety #2 tabs 03/23/23 pyridoxine (vitamin B6) 100 mg 100 mg PO DAILY #90 tabs 05/31/23 tablet cholecalciferol (vitamin D3) 50 50 mcg PO DAILY #90 caps 07/24/23 mcg (2,000 unit) capsule (Vitamin D3) amlodipine 10 mg tablet 10 mg PO DAILY #90 tabs 09/16/23 famotidine 20 mg tablet 20 mg PO BEDTIME PRN for acid 10/03/23 reflux 90 days #90 tabs lisinopril 10 mg tablet 10 mg PO DAILY #90 tabs 10/03/23 metoprolol tartrate 100 mg tablet 100 mg PO BID 90 days #180 tabs 10/03/23 Tirosint 175 mcg capsule 175 mcg PO DAILY #30 caps 11/12/23 (levothyroxine) boklrllz-pjkrnbpde-cshhysuvt 3.5 4 drp otic (ear) right Q8H 7 days 12/11/23 mg-10,000 unit/mL-1 % ear #10 mL drops,susp Allergies Allergy/AdvReac Type Severity Reaction Status Date / Time pineapple [PINEAPPLE] Allergy Severe ANAPHYLAXIS Verified 12/11/23 09:30 adhesive tape Allergy Intermediate Blister Verified 12/11/23 09:30 Iodinated Contrast Media Allergy Intermediate SOB,RASH Verified 12/11/23 09:30 [IV Dye, Iodine Containing] levofloxacin [From Levaquin] Allergy Intermediate swelling/ra Verified 12/11/23 09:30 sh oxycodone [From Percocet] Allergy Intermediate rash/SOB Verified 12/11/23 09:30 aspirin [ASA] AdvReac Mild UPSET Verified 12/11/23 09:30 STOMACH Review of Systems 2 Review of Systems: Constitutional: No fever, chills, fatigue, night sweats, weight changes ENT/Mouth: No hearing loss, nasal congestion, sinus pain, rhinorrhea, sore throat, +b/l ear pain/ drainage Eyes: No eye pain, swelling, redness,discharge, +blurred vision Cardio: No chest pain, palpitations, CABRERA, orthopnea, peripheral edema Pulm: No SOB, cough, sputum, wheezing, dyspnea, hemoptysis GI: No nausea, vomiting, hematemesis, abdominal pain, diarrhea, constipation, hematochezia, melena : No irregular bleeding, dysuria, frequency, urgency, hesitancy, hematuria, flank pain, urinary flow changes, urinary incontinence or retention MSK: No back pain, neck pain, joint pain, myalgias Skin: No lesions, rashes Neuro: No weakness, numbness, paresthesias, LOC, dizziness, +headache Psych: No anxiety/panic, depression, SI/HI, AH/VH All other systems reviewed and are negative. [facility], [facility] Past Medical History Attestation statement: The following information was validated with the patient. Source: old records reviewed and nursing notes reviewed Medical History Dysphagia Diarrhea Well woman exam Abnormal finding on EKG Hx of flexible sigmoidoscopy Internal derangement of right shoulder Lump of left breast Lump of right breast Lump of axillary tail of right breast Chronic constipation Rotator cuff impingement syndrome of left shoulder Right forearm pain Colitis Hypertensive urgency Rotator cuff impingement syndrome Lateral epicondylitis of both elbows Fall IBS (irritable bowel syndrome) Abdominal bloating Tendinopathy of left rotator cuff History of TIA (transient ischemic attack) Hypercholesterolemia Vitamin D deficiency Multinodular thyroid Pancreatic cyst Constipation Thyroid nodule Diarrhea Rectal bleeding Esophageal spasm GERD (gastroesophageal reflux disease) Hypertension Asthma Kidney stones History of migraine headaches Fibromyalgia Allergic rhinitis Sciatic nerve pain Ovarian cyst Hypothyroidism Surgical History History of arthroscopic surgery of shoulder Hx of eye surgery History of breast lump/mass excision Hx of hemorrhoidectomy Hx of tubal ligation History of esophagogastroduodenoscopy (EGD) History of colonoscopy (~11/16/19) H/O: hysterectomy History of thyroidectomy (~11/2018) History of kidney surgery Hx of bilateral breast reduction surgery Hx of appendectomy History of cholecystectomy (~2003) H/O lithotripsy Family History Family History Father Family history of high blood pressure History of high cholesterol Mother History of diabetes mellitus Family history of high blood pressure Family history of asthma History of fibromyalgia Liver disease Maternal Grandfather Colon cancer Family/Other Breast cancer Social History Social History Household Members: Spouse Household Members Other:: daughter Housing: Apartment Are you a primary caregivers homecare to a significant other at home: No Do you presently have visiting nurse or other home services: No Alcohol intake: never Patient Tobacco Use Status: Former Tobacco user Tobacco use type: Cigarette Years Smoked: 15 e-Cigarette/Vaping Use: Never Used Second Hand Smoke Exposure: No Substance Use Type: Marijuana Advance Directives: No Advance Directives Information Provided: Yes service: No Current occupational status: disabled Current occupation: right handed Sexual orientation: Straight/Heterosexual Gender identity: Female Cognitive needs: No Hearing needs: No Vision needs: Yes Physical Exam 2 Vital Signs: Vital Signs: Last Vital Signs Temp 97.3 F 12/11/23 16:40 Pulse 76 12/11/23 16:40 Resp 16 12/11/23 16:40 BP 147/91 H 12/11/23 16:40 Pulse Ox 96 12/11/23 16:40 O2 Del Method Room Air 12/11/23 16:40 BMI result Body Mass Index 36.2 hypertensive, vitals wnl General: Well appearing, in no acute distress. Skin: Warm, dry, intact. No rashes or lesions. Head: Normocephalic, atraumatic. EENT: Conjunctiva clear. PERRLA. EOM intact w/o entrapment or pain. Moist mucous membranes. +hearing intact, ?bilateral mastoid tenderness without overlying erythema or warmth. Bilateral TMs intact without perforation or visible drainage in the canals. Right distal, superior EAC is erythematous. Neck: Supple without LAD? Cardiac: Chest wall symmetric. RRR Lungs: Normal respiratory effort without accessory muscle use. CTA bilaterally. Ext: Upper and lower extremities atraumatic, without tenderness, deformity, swelling or erythema. Full ROM throughout. Neuro: AOx3. Normal speech. Ambulating with steady gait. Psych: Appropriate mood and affect. Responds appropriately to questions. Course Course Course Narrative: This is a Rapid Medical Examination (RME) performed by Rocco Hyatt PA-C in triage. Full HPI, ROS, assessment and treatment plan per primary provider in the Main ED. 53 yo female presenting for evaluation of bilateral ear pain, L x2 years and R x1 week with reports of bilateral clear drainage. +bilateral mastoid tenderness on exam without overlying erythema or warmth. Bilateral TMs intact without perforation or visible drainage in the canals. Right distal, superior EAC is erythematous. BP elevated 189/100. c/o headache and blurred vision. Plan: CT head/mastoid, labs Reevaluation(s) Reevaluation #1: 1602 -- CBC without leukocytosis or left shift. No anemia. H&H stable. Inflammatory markers including ESR and CRP WNL > giant cell arteritis unlikely. Chemistry without acute electrolyte abnormality requiring intervention. She tested negative for strep throat. CT head without intracranial bleed or mass. > patient treated with migraine cocktail (Toradol, Reglan, Benadryl). CT mastoid pending - low suspicion for mastoiditis. Exam is more consistent with an otitis externa. > hypertensive to 189/105 on arrival. 10mg amolidpine administered with improvement to 147/91. > migraine cocktail administered w/ improvement in BROWNE. 1633 -- patient states that she can no longer wait for her CT results. discussed risks of her leaving the ED without receiving these results, including but not limited to, worsening pain, infection, and even . she verbalizes understanding and would like to sign out AMA. exam consistent with otitis externa - will send ciprodex to pharmacy for treatment. Discussed worrisome signs and symptoms and when to return to the ED. Medications Administered Discontinued Medications Generic Name Dose Route Start Last Admin Trade Name Felipeq PRN Reason Stop Dose Admin Amlodipine Besylate 10 mg 12/11/23 13:53 12/11/23 14:02 Amlodipine Besylate 10 Mg Tablet PO 12/11/23 13:54 10 mg ONCE ONE Administration Protocol Diphenhydramine HCl 50 mg 12/11/23 13:14 12/11/23 13:28 Diphenhydramine Hcl 50 Mg/Ml Vial IVPUSH 12/11/23 13:15 50 mg ONCE ONE Administration Ketorolac Tromethamine 15 mg 12/11/23 13:14 12/11/23 13:30 Ketorolac Tromethamine 15 Mg/Ml Vial IVPUSH 12/11/23 13:15 15 mg ONCE ONE Administration Metoclopramide HCl 10 mg 12/11/23 13:14 12/11/23 13:29 Metoclopramide Hcl 10 Mg/2 Ml Vial IVPUSH 12/11/23 13:15 10 mg ONCE ONE Administration Medical Decision Making Medical Decision Making [facility] Narrative: 53 year old female with pmhx significant for HTN and migraines presents to the ED today for evaluation of bilateral ear pain (left x2 years and right x1 week). Hypertensive, afebrile. On exam, hearing intact, ?bilateral mastoid tenderness without overlying erythema or warmth. Bilateral TMs intact without perforation or visible drainage in the canals. Right distal, superior EAC is erythematous. Differential diagnosis includes hypertension, hypertensive urgency, hypertensive emergency, otitis externa, otitis media, mastoiditis, giant cell arteritis, general headache, tension headache, migraine, sinusitis, strep throat Plan for labs, imaging, pain control, re-evaluation. Differential Diagnosis Differential Diagnoses: The differential diagnosis associated with the presentation includes as above Admission/Observation not indicated. Lab Data [facility] Lab Attestation statement: I reviewed the patient's lab results. as above. 12/11/23 09:50 12/11/23 09:50 Labs: Lab Results 12/11/23 12/11/23 Range/Units 09:50 13:23 WBC 8.2 (4.8-10.8) X10*3/uL RBC 4.76 (4.20-5.50) X10*6/uL Hgb 14.9 (12.0-16.0) g/dl Hct 43.4 (37.0-47.0) % MCV 91.2 (80.0-98.0) fL MCH 31.3 (27.0-33.0) pg MCHC 34.3 (31.0-35.0) g/dl RDW 12.7 (11.0-16.0) % Plt Count 286 (160-400) X10*3/uL MPV 9.7 (9.4-12.3) fL Immature Gran % (Auto) 0.2 (0.0-0.4) % Neut % (Auto) 62.6 (45-73) % Lymph % (Auto) 26.9 (20-40) % [place] % (Auto) 6.7 (2-11) % Eos % (Auto) 2.9 (0-4) % Baso % (Auto) 0.7 (0-2) % Lymph # (Auto) 2.2 (1.2-4.9) X10*3/uL [place] # (Auto) 0.6 (0.1-1.2) X10*3/uL Eos # (Auto) 0.2 (0.0-0.4) X10*3/uL Baso # (Auto) 0.1 (0.0-0.2) X10*3/uL Abs Immat Gran (auto) 0.02 (0.00-0.03) X10*3/uL Absolute Neuts (auto) 5.1 (2.0-8.3) x10*3/uL Absolute Nucleated RBC 0.000 (0.0-0.012) X10*3/uL Nucleated RBC % (auto) 0.0 (0.0-0.2) /100WBC ESR 20 (0-20) MM/HR Sodium 141 (135-145) mmol/L Potassium 4.0 (3.3-5.1) mmol/L Chloride 106 (96-108) mmol/L Carbon Dioxide 26 (22-29) mmol/L Anion Gap 13 (12-20) BUN 12 (9-16) mg/dL Creatinine 0.74 (0.5-1.4) mg/dL Estim Creat Clear Calc 104.6 Estimated GFR > 60 Random Glucose 85 (60-115) mg/dL Calcium 9.9 (8.4-10.2) mg/dL C-Reactive Protein < 0.10 (< or = 0.50) mg/dL S. pyogenes GrpA SAWYER Negative (Negative) Independent Interpretation I performed an independent interpretation of an: CT Scan Interpretation: ct head/ brain without mass or bleed, agree with radiologist's interpretation. Radiology Impression Discussion of test interpretation with radiology: I have reviewed the radiologist's reading. Radiologist Impression: EXAMINATION: CT HEAD WITHOUT CONTRAST CLINICAL INFORMATION: Severe headache, blurred vision COMPARISON: None available. TECHNIQUE: Contiguous axial imaging was performed from the skull base to vertex without intravenous administration of contrast. This CT examination was performed using dose optimization techniques as appropriate, variously including the following: *Automated exposure control *Adjustment of mA and/or kV according to patient size (this includes techniques or standardized protocols for targeted exams where dose is matched to indication/reason for exam; i.e. extremities or head) *Use of iterative reconstruction technique DLP: Except 87 mGy-cm FINDINGS: The ventricles and sulci are normal in size and configuration. No acute hemorrhage, mass effect or shift is evident. Cedillo-white differentiation is maintained. In the posterior fossa, the brainstem, cerebellum and fourth ventricle image normally. The orbits and calvarium are intact. The paranasal sinuses and mastoid air cells are well pneumatized and clear. CT/CT head/brain wo IV con IMPRESSION: 1. Unremarkable noncontrast brain CT. No acute hemorrhage, mass effect or shift. Electronically signed by: Rolando Ch MD 12/11/2023 10:52 AM EDT RP EXAMINATION: Mastoid CT without contrast CLINICAL INFORMATION: Ear pain and bilateral mastoid pain COMPARISON: CT head same date TECHNIQUE: Contiguous axial imaging of the head was performed without the administration of IV contrast. Axial multidetector volumetric images were also obtained through the facial bones without contrast from the frontal sinuses through the mandible. Multiplanar reconstructed images in coronal and sagittal orientations were submitted. DOSE: 247 mGy-cm FINDINGS: MAXILLOFACIAL: The right mastoid air cells are clear. The right external auditory canal and middle ear is clear. The right middle ear ossicles are well delineated. The scutum is preserved. The attic is well aerated. The left mastoid air cells are clear. The left external auditory canal and middle ear is clear. The left middle ear ossicles are preserved as is the scutum. The left attic is well aerated. Bony structures are intact. No evidence for mass effect on the right or left internal auditory canals. The sphenoid sinuses clear. There is mild mucoperiosteal thickening in the ethmoid sinuses. The frontal sinuses are clear. There is minimal mucosal thickening within the inferior right maxillary sinus. The right and left TMJs appear normal. Zygomatic arches are intact. Orbits and retrobulbar regions are intact. CT/CT mastoid IMPRESSION: Unremarkable exam. Electronically signed by: Bentley Renner MD 12/11/2023 04:40 PM EDT External Record Review External record reviewed: Inpatient record Prescription Management I considered prescription management with: Pain Medication and Antibiotic (ciprodex) Chronic Conditions Patient?s care impacted by: Hypertension Social Determinants Patient?s care significantly limited by Social Determinants of Health including: Other Social Determinant of Health Critical Care Time Critical Care Time Critical Care Time: No Discharge Plan Discharge Clinical Impression: Acute otitis externa of right ear Patient Disposition: Left Against Medical Advice Instructions: Otitis Externa (ED) Additional Instructions: Your blood work today is reassuring. The CT scan of your head does not show bleed or mass. You were choosing to leave the ED today prior to obtaining results of your mastoid CT. Your current physical exam findings are consistent with an external ear infection of your right ear. I have sent combination antibiotic/steroid ear drops to your pharmacy for you to use over the next week. You have also been provided with a referral to an ear, nose, and throat doctor. you may call them to establish care. they will not call you. Return with new or worsening symptoms. In the case of an emergency call 911. Prescriptions: New sskmilib-pkunqknnd-SF 3.5-10,000-1 mg/mL-unit/mL-% drops,suspension 4 drp otic (ear) right Q8H 7 Days Qty: 10 0RF No Action omalizumab [Xolair] 150 mg/mL syringe 300 mg subcut Q2W Qty: 4 11RF albuterol sulfate [Ventolin HFA] 90 mcg/actuation HFA aerosol inhaler 2 puff inhalation Q4-6H PRN (Reason: shortness of breath or wheezing) 30 Days Qty: 1 6RF fluticasone furoate-vilanterol [Breo Ellipta] 200-25 mcg/dose blister with device 1 inh inhalation DAILY 30 Days Qty: 60 6RF Incruse Ellipta 62.5 mcg/actuation blister with device 1 inh inhalation DAILY 30 Days Qty: 30 6RF docusate sodium 100 mg capsule 100 mg PO BID Qty: 60 0RF ipratropium-albuterol 0.5 mg-3 mg(2.5 mg base)/3 mL solution for nebulization 3 ml inhalation Q4-6H PRN (Reason: for wheezing) Qty: 180 3RF lorazepam 1 mg tablet 1 mg PO ONCE PRN (Reason: anxiety) Qty: 2 0RF Rx Instructions: Take 30 mins before procedure, may repeat x 1 if needed cholecalciferol (vitamin D3) [Vitamin D3] 50 mcg (2,000 unit) capsule 50 mcg PO DAILY Qty: 90 3RF amlodipine 10 mg tablet 10 mg PO DAILY Qty: 90 1RF famotidine 20 mg tablet 20 mg PO BEDTIME PRN (Reason: for acid reflux) 90 Days Qty: 90 1RF metoprolol tartrate 100 mg tablet 100 mg PO BID 90 Days Qty: 180 1RF lisinopril 10 mg tablet 10 mg PO DAILY Qty: 90 1RF levothyroxine [Tirosint] 175 mcg capsule 175 mcg PO DAILY Qty: 30 1RF levothyroxine 175 mcg tablet 175 mcg PO DAILY atorvastatin [Lipitor] 10 mg tablet 10 mg PO DAILY Qty: 30 4RF pyridoxine (vitamin B6) 100 mg tablet 100 mg PO DAILY Qty: 90 3RF topiramate 50 mg tablet 50 mg PO BID omeprazole 20 mg capsule,delayed release(DR/EC) 20 mg PO BID budesonide-formoterol [Symbicort] 160-4.5 mcg/actuation HFA aerosol inhaler 2 puff inhalation BID Referrals: Derrick Rivera [Physician] - Po,Barak Fair MD [Primary Care Provider] - Stand Alone Forms: Against Medical Advice Interventions: ED Discharge Assessment Last Done: 12/11/23 16:40 Discharge Date/Time: 12/11/23 16:40 Print Language: Uzbek
[2023-12-11 10:13] LABS: Anion Gap 13 (12-20); Blood Urea Nitrogen 12 mg/dL (9-16); Calcium 9.9 mg/dL (8.4-10.2); Carbon Dioxide 26 mmol/L (22-29); Chloride 106 mmol/L (96-108); Creatinine Clr Calc Pharmacy 104.6; Estimated Glomerular Filt Rate > 60; Glucose Random 85 mg/dL (60-115); Sodium 141 mmol/L (135-145)
[2023-12-11] MEDS: diphenhydrAMINE HCL 50 MG/ML VIAL IVPUSH (13:28)
[2023-12-11] MEDS: Metoclopramide HCl 10 MG/2 ML VIAL IVPUSH (13:29)
[2023-12-11] MEDS: Ketorolac Tromethamine 15 MG/ML VIAL IVPUSH (13:30)
[2023-12-11 13:38] LABS: IDNOW Serial# 58CA691E; Strep A Nucleic Acid Negative (Negative)
[2023-12-11 13:42] LABS: C Reactive Protein < 0.10 mg/dL (< or = 0.50)
[2023-12-11] MEDS: amLODIPine Besylate 10 MG TABLET PO (14:02)
[2023-12-11 14:15] LABS: Erythrocyte Sedimentation Rate 20 MM/HR (0-20)
[2023-12-11 14:17] VITALS: BP 147/91; PULSE 76; RESP 16; TEMP 36.3; O2SAT 96
[2023-12-11 16:40] VITALS: BP 147/91; PULSE 76; RESP 16; TEMP 36.3; O2SAT 96
== END 2023-12-11 16:40 | disposition left against medical advice (07) ==
PROVIDERS: Physician Assistant Medical; Emergency Provider Emergency Medicine Emergency Medical Services; PCP Internal Medicine
DX: H60.501 Unspecified acute noninfective otitis externa, right ear (principal); H92.03 Otalgia, bilateral; R51.9 Headache, unspecified; H53.8 Other visual disturbances; Z79.899 Other long term (current) drug therapy; Z87.891 Personal history of nicotine dependence
CPT/HCPCS: 36415; 70450; 70481; 80048; 85025; 85652; 86140; 87651; 96374; 96375; 99283; 99284; J1200; J1885; J2765

== ENCOUNTER 2023-12-12 10:30 | Outpatient (REF) | payer OTHER, SELFPAY | END 2023-12-12 10:31 | disposition home or self-care (01) | LOC: HO.US 10:30 | PROVIDERS: PCP Internal Medicine; Visit Provider Urology | DX: Z13.89 Encounter for screening for other disorder (principal) ==

== ENCOUNTER 2023-12-19 09:02 | Outpatient (REF) | payer OTHER, SELFPAY ==
--- NOTE | 2023-12-19 09:05 | EMG_ITS ---
Chief complaint: Left worse than right hand pain Reason for referral: Evaluate for Carpal Tunnel Syndrome Referred by: Dale RAUSCH Procedure done: Bilateral upper extremities NCS/EMG Precautions and/or limitations: None The limb temperature was monitored continuously and remained between 32-36 degrees C during the performance of the NCS. ?Stim Site NR Onset (ms) Norm Onset (ms) Peak (ms) Norm Peak (ms) O-P Amp (?V) Norm O-P Amp Site1 Site2 Delta-0 (ms) Dist (cm) Watson (m/s) Norm Watson (m/s) Left Median Anti Sensory (2nd Digit) Wrist ? 2.5 3.2 <3.6 35.0 >10 Wrist 2nd Digit 2.5 14.0 56 Right Median Anti Sensory (2nd Digit) Wrist ? 2.4 3.4 <3.6 30.4 >10 Wrist 2nd Digit 2.4 14.0 58 Left Ulnar Anti Sensory (5th Digit) Wrist ? 2.6 3.3 <3.7 25.2 >15.0 Wrist 5th Digit 2.6 14.0 54 Right Ulnar Anti Sensory (5th Digit) Wrist ? 2.2 2.8 <3.7 25.7 >15.0 Wrist 5th Digit 2.2 14.0 64 Motor Summary Table ?Stim Site NR Onset (ms) Norm Onset (ms) O-P Amp (mV) Norm O-P Amp iAmp (mV) Amp (1st) (%) Site1 Site2 Delta-0 (ms) Dist (cm) Watson (m/s) Norm Watson (m/s) Left Median Motor (Abd Poll Brev) Wrist ? 3.1 <3.9 11.3 >4.5 13.5 100.0 Elbow Wrist 4.0 20.5 51 >45 Elbow ? 7.1 10.3 12.4 91.2 Right Median Motor (Abd Poll Brev) Wrist ? 3.4 <3.9 15.8 >4.5 18.5 100.0 Elbow Wrist 4.1 22.0 54 >45 Elbow ? 7.5 14.3 17.2 90.5 Left Ulnar Motor (Abd Dig Minimi) Wrist ? 2.9 <3.0 7.0 >5 8.6 100.0 B Elbow Wrist 3.3 17.5 53 >45 B Elbow ? 6.2 6.7 8.0 95.7 A Elbow B Elbow 1.4 10.0 71 >45 A Elbow ? 7.6 7.5 9.2 107.1 Right Ulnar Motor (Abd Dig Minimi) Wrist ? 2.7 <3.0 8.1 >5 10.3 100.0 B Elbow Wrist 3.6 18.5 51 >45 B Elbow ? 6.3 8.3 10.4 102.5 A Elbow B Elbow 1.5 10.0 67 >45 A Elbow ? 7.8 9.0 11.2 111.1 Comparison Summary Table ?Stim Site NR Peak (ms) Norm Peak (ms) P-T Amp (?V) Site1 Site2 Delta-P (ms) Norm Delta (ms) Right Median/Radial Dig I Comparison (Digit 1 - 10cm) Median ? 2.8 <2.9 31.6 Median Radial 0.5 Radial ? 2.3 <2.8 18.7 EMG ?Side Muscle Nerve Root Ins Act Fibs Psw Amp Dur Poly Recrt Int Pat Comment Right 1stDorInt Ulnar C8-T1 Nml Nml Nml Nml Nml 0 Nml Complete Right FlexCarRad Median C6-7 Nml Nml Nml Nml Nml 0 Nml Complete Right Biceps Musculocut C5-6 Nml Nml Nml Nml Nml 0 Nml Complete Right Triceps Radial C6-7-8 Nml Nml Nml Nml Nml 0 Nml Complete Right Deltoid Axillary C5-6 Nml Nml Nml Nml Nml 0 Nml Complete Left 1stDorInt Ulnar C8-T1 Nml Nml Nml Nml Nml 0 Nml Complete Left FlexCarRad Median C6-7 Nml Nml Nml Nml Nml 0 Nml Complete Left Biceps Musculocut C5-6 Nml Nml Nml Nml Nml 0 Nml Complete Left Triceps Radial C6-7-8 Nml Nml Nml Nml Nml 0 Nml Complete Left Deltoid Axillary C5-6 Nml Nml Nml Nml Nml 0 Nml Complete FINDINGS: All motor and sensory nerves tested showed normal latencies, amplitudes and conduction velocities. Concentric needle EMG was performed in selected muscles of the bilateral upper extremities. Study did not reveal signs of electric abnormalities as shown in the table above. IMPRESSION: 1. This is a normal study. 2. There is no electrodiagnostic evidence for median neuropathy, ulnar neuropathy, brachial plexopathy, or cervical radiculopathy. Thank you for your kind referral. Jacqueline Hope MD, CHASITY Board Certified, [place] [employer] and [employer] (ABPMR) Board Certified, [place] Board [employer] Electro[employer]ostic [employer] (ABEM) CODIN [phone] x 2 MTDD
== END 2023-12-19 09:03 | disposition home or self-care (01) ==
LOC: HO.NEURO 09:02
PROVIDERS: PCP Internal Medicine
DX: R20.0 Anesthesia of skin (principal); R20.2 Paresthesia of skin
CPT/HCPCS: 95886; 95911

== ENCOUNTER → 2023-12-19 09:05 | Outpatient (BNV) | payer OTHER, SELFPAY | PROVIDERS: PCP Internal Medicine; Visit Provider Physical Medicine & Rehabilitation | DX: M79.641 Pain in right hand (principal); M79.642 Pain in left hand; R20.0 Anesthesia of skin; R20.2 Paresthesia of skin | CPT/HCPCS: 95886; 95911 ==

== ENCOUNTER 2024-01-07 09:02 | Outpatient (AMB) | payer OTHER, SELFPAY ==
--- NOTE | 2024-01-07 09:05 | MHC.OFFVIS ---
Vital Signs 01/07/24 09:11 Height 5 ft 5 in Weight 227 lb 1.218 oz BMI 37.8 BP 144/88 H Blood Pressure Location Lt brachial Position Sitting Pulse 97 Pulse Source Pulse Oximeter Intake Visit Reasons: f/u post-surgical hypothyroidism-confirmed Intake Note: Patient present today for post surgical Hypothyroidism follow up visit. Patient c/o she has been experiencing more fatigue and problems with vision. Multimedia Coordinator Required: No Accompanied by: Grandchild Allergies pineapple [PINEAPPLE] Allergy (Severe, Verified 01/07/24 09:13) ANAPHYLAXIS adhesive tape Allergy (Intermediate, Verified 01/07/24 09:13) Blister Iodinated Contrast Media [IV Dye, Iodine Containing] Allergy (Intermediate, Verified 01/07/24 09:13) SOB,RASH levofloxacin [From Levaquin] Allergy (Intermediate, Verified 01/07/24 09:13) swelling/rash oxycodone [From Percocet] Allergy (Intermediate, Verified 01/07/24 09:13) rash/SOB aspirin [ASA] Adverse Reaction (Mild, Verified 01/07/24 09:13) UPSET STOMACH Medication List - Last Reconciled 01/07/24 by Rainer Vargas MD amlodipine 10 mg PO DAILY atorvastatin (Lipitor) 10 mg PO DAILY budesonide-formoterol 160-4.5 mcg/actuation (Symbicort) 2 puffs inhalation BID cholecalciferol (vitamin D3) (Vitamin D3) 50 mcg PO DAILY docusate sodium 100 mg PO BID famotidine 20 mg PO BEDTIME PRN 90 days fluticasone furoate-vilanterol 200-25 mcg/dose (Breo Ellipta) 1 inh inhalation DAILY 30 days ipratropium-albuterol 0.5 mg-3 mg(2.5 mg base)/3 mL 3 mL inhalation Q4-6H PRN levothyroxine 175 mcg PO DAILY lisinopril 10 mg PO DAILY lorazepam 1 mg PO ONCE PRN metoprolol tartrate 100 mg PO BID 90 days qulwplbe-zzrjmeijl-JS 3.5-10,000-1 mg/mL-unit/mL-% 4 drps otic (ear) right Q8H 7 days omalizumab (Xolair) 300 mg (2 mL) subcut Q2W omeprazole 20 mg PO BID pyridoxine (vitamin B6) 100 mg PO DAILY Tirosint (levothyroxine) 175 mcg PO DAILY NS topiramate 50 mg PO BID umeclidinium 62.5 mcg/actuation (Incruse Ellipta) 1 inh inhalation DAILY 30 days Ventolin HFA 90 mcg/actuation (albuterol sulfate) 2 puffs inhalation Q4-6H PRN 30 days NS HPI Comments Details: 53 YO Female with PMHx HTN, breast cancer in remission who is seen in F/U for postsurgical hypothyroidism after she underwent a total thyroidectomy 12/04/2018 for a multinodular thyroid. Surgery was uncomplicated, but the L inferior parathyroid gland did need to be re-implanted. 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 Postoperative course has been unremarkable, but she did recently develop severe hypothyroidism with TSH >40. She has admitted to poor compliance with her levothyroxine. Now she reports good compliance with levothyroxine 200 mcg PO daily for 1 wk . Most recent labs were at goal. Due now for repeat. She does complain of hair loss, fatigue, weight gain and confusion. She also has Vitamin D deficiency. S he has been compliant with her Vitamin D, and her levels are now at goal. Celiac panel was negative. Labs: Did not do recent labs. [facility] Medical History (Updated 12/26/23 @ 08:51 by Tara Calhoun MD) Dysphagia Diarrhea Well woman exam Abnormal finding on EKG Hx of flexible sigmoidoscopy Internal derangement of right shoulder Lump of left breast Lump of right breast Lump of axillary tail of right breast Chronic constipation Rotator cuff impingement syndrome of left shoulder Right forearm pain Colitis Hypertensive urgency Rotator cuff impingement syndrome Lateral epicondylitis of both elbows Fall IBS (irritable bowel syndrome) Abdominal bloating Tendinopathy of left rotator cuff History of TIA (transient ischemic attack) Hypercholesterolemia Vitamin D deficiency Multinodular thyroid Pancreatic cyst Constipation Thyroid nodule Diarrhea Rectal bleeding Esophageal spasm GERD (gastroesophageal reflux disease) Hypertension Asthma Kidney stones History of migraine headaches Fibromyalgia Allergic rhinitis Sciatic nerve pain Ovarian cyst Hypothyroidism Surgical History History of arthroscopic surgery of shoulder Hx of eye surgery History of breast lump/mass excision Hx of hemorrhoidectomy Hx of tubal ligation History of esophagogastroduodenoscopy (EGD) History of colonoscopy (~09/20/20) H/O: hysterectomy History of thyroidectomy (~11/2018) History of kidney surgery Hx of bilateral breast reduction surgery Hx of appendectomy History of cholecystectomy (~2003) H/O lithotripsy Family History Father Family history of high blood pressure History of high cholesterol Mother History of diabetes mellitus Family history of high blood pressure Family history of asthma History of fibromyalgia Liver disease Maternal Grandfather Colon cancer Family/Other Breast cancer Social History Household Members: Spouse Household Members Other:: daughter Housing: Apartment Are you a primary manager wound care to a significant other at home: No Do you presently have visiting nurse or other home services: No Alcohol intake: never Patient Tobacco Use Status: Former Tobacco user Tobacco use type: Cigarette Years Smoked: 15 e-Cigarette/Vaping Use: Never Used Second Hand Smoke Exposure: No Substance Use Type: Marijuana service: No Current occupational status: disabled Current occupation: right handed Sexual orientation: Straight/Heterosexual Gender identity: Female Cognitive needs: No Hearing needs: No Vision needs: Yes Female Reproductive History Menstrual Age of Menarche: 10 Physical Exam Const Other: Healed scar status post thyroidectomy Assessment & Plan Assessment & Plan (1) Post-surgical hypothyroidism: Code(s): E89.0 - Postprocedural hypothyroidism Category: Medical Plan: This is a 52-year-old female with a history of post-surgical hypothyroidism. She is currently replaced with 175 mcgTirosint . She appears to be clinically and biochemically euthyroid Plan is to continue the current management. At this point, patient returned to the care of her primary care provider returned back to endocrinology as needed. She should discuss with her primary care provider her issues about fatigue and visual changes which are probably not related to thyroid assuming the thyroid function studies checked today are normal Orders: Orders Free T4 (Free Thyroxine) Today E89.0 - Postprocedural hypothyroidism Thyroid Stimulating Hormone Today E89.0 - Postprocedural hypothyroidism Coding Level of Care Code Est Pt Level 3 (07637) Diagnoses Post-surgical hypothyroidism E89.0
[2024-01-07 09:11] VITALS: BP 144/88; PULSE 97; BMI 37.8
== END 2024-01-07 09:22 | disposition home or self-care (01) ==
PROVIDERS: PCP Internal Medicine; Visit Provider Internal Medicine Endocrinology, Diabetes & Metabolism
DX: E89.0 Postprocedural hypothyroidism (principal)
CPT/HCPCS: 99213

== ENCOUNTER 2024-01-07 09:02 | Outpatient (REF) | payer OTHER, SELFPAY ==
[2024-01-07 11:59] LABS: Free T4 (Free Thyroxine) 1.77 ng/dL (0.71-1.85); Thyroid Stimulating Hormone 0.36 uIU/mL (0.32-4.0)
== END 2024-01-07 09:03 | disposition home or self-care (01) ==
LOC: HO.LAB 09:02
PROVIDERS: PCP Internal Medicine; Visit Provider Internal Medicine Endocrinology, Diabetes & Metabolism
DX: E89.0 Postprocedural hypothyroidism (principal)
CPT/HCPCS: 36415; 84439; 84443; 99212

== ENCOUNTER 2024-01-17 11:00 | Outpatient (AMB) | payer OTHER, SELFPAY ==
--- NOTE | 2024-01-17 11:05 | A.OFFVIS_ITS ---
Vital Signs 01/17/24 11:10 Height 5 ft 5 in Weight 227 lb BMI 37.8 BP 152/90 H Blood Pressure Location Lt brachial Position Sitting Pulse 89 Intake Visit Reasons: s/p double (GERD) Intake Note: Patient follow up for diarrhea/ EGD-Colonoscopy results Patient cc: abdominal pain/bloating, diarrhea, swallowing problem, acid reflex with burning sensation. Remote Encoding Operations Supervisor Required: No Accompanied by: Self / Same As Patient Allergies pineapple (PINEAPPLE) Allergy (Severe, Verified 06/04/25 11:37) ANAPHYLAXIS adhesive tape Allergy (Intermediate, Verified 06/04/25 11:37) Blister Iodinated Contrast Media (IV Dye, Iodine Containing) Allergy (Intermediate, Verified 06/04/25 11:37) SOB,RASH levofloxacin (From Levaquin) Allergy (Intermediate, Verified 06/04/25 11:37) swelling/rash oxycodone (From Percocet) Allergy (Intermediate, Verified 06/04/25 11:37) rash/SOB aspirin (ASA) Adverse Reaction (Mild, Verified 06/04/25 11:37) UPSET STOMACH Medication List - Last Reconciled 01/17/24 by Sky Horton MD amlodipine 10 mg PO DAILY atorvastatin (Lipitor) 10 mg PO DAILY budesonide-formoterol 160-4.5 mcg/actuation (Symbicort) 2 puffs inhalation BID cholecalciferol (vitamin D3) (Vitamin D3) 50 mcg PO DAILY docusate sodium 100 mg PO BID famotidine 20 mg PO BEDTIME PRN 90 days fluticasone furoate-vilanterol 200-25 mcg/dose (Breo Ellipta) 1 inh inhalation D AILY 30 days ipratropium-albuterol 0.5 mg-3 mg(2.5 mg base)/3 mL 3 mL inhalation Q4-6H PRN lisinopril 10 mg PO DAILY lorazepam 1 mg PO ONCE PRN metoprolol tartrate 100 mg PO BID 90 days obquiyoi-snalyzoot-MJ 3.5-10,000-1 mg/mL-unit/mL-% 4 drps otic (ear) right Q8H 7 days omalizumab (Xolair) 300 mg (2 mL) subcut Q2W omeprazole 20 mg PO BID pyridoxine (vitamin B6) 100 mg PO DAILY Tirosint (levothyroxine) 175 mcg PO DAILY NS topiramate 50 mg PO BID umeclidinium 62.5 mcg/actuation (Incruse Ellipta) 1 inh inhalation DAILY 30 days Ventolin HFA 90 mcg/actuation (albuterol sulfate) 2 puffs inhalation Q4-6H PRN 30 days NS HPI HPI s/p double (GERD): Details: GI Clinic visit for this 52-year-old female for evaluation of diarrhea and abdominal bloating Pt had severe watery diarrhea which lasted for several weeks after her thyroid surgery. Pt was seen at [facility] ED on 12/18/22 with worsening abd pain and labs showed an elevated lipase of 118 TODAY'S VISIT: Patient reports abdominal pain/bloating, diarrhea, swallowing problem, acid reflex with burning sensation. EGD and colon results were reviewed. Not feeling good - stomach has been hurting more and more. Continues to have diarrhea 5-6 times a day - has diarrhea when she goes to pee Every time she eats, she has to go to the bathroom Noted difficulty swallowing while drinking a smoothie. Poopo is sarah - coffee grain material in the poop on toilet paper - green Had a lot of pain that day. Has gained weight - attributes to thyroid issues. Has to see the nurse every 2 weeks to have her blood pressure checked. PAST VISITS: Not good, stomach hurts, intermittent watery diarrhea which is yellow in color Watery diarrhea for a few days and then constipation Has diarrhea 4 days per week (5 times a day) and constipation for the rest of the week Has not had a normal BM in the past several months Takes soups when she has the diarrhea and avoids taking solids. Continues to have constant nausea, bloating and burping. PAST VISITS: Denies any change in symptoms Constantly burping associated with regurgitation of liquids and feels like she is drowning Taking Omeprazole and is working a little bit. Hardly eat since has nausea and abdominal pain when she eats Horrible nausea Has diarrhea alternating with constipation. Denies having a normal BM in years Unable to sleep at night due to regurgitation. Sleeping side ways with the pillow elevated. Patient cc: abdominal pain/bloating, GERD with burning sensation,between diarrhea and constipation, water is coming with burps and she can not breath when that happened to her, also she is not eating well due the abdominal pain/loosing weight. Nauseas and Vomit, acid reflex with burning sensation and some swallowing problems Loosing weight too fast, loosing hair, cant keep anything in her stomach. Unable to eat without vomiting or diarrhea. Constant abdominal pain. Has diarrhea alternating with constipation. No BM x 3 days Advised GFD. Pt states she tried a GFD in the past ? for 1-2 years and willing to try it again [facility] [place] (f. [employer]: 11/15 REVIEWED. ? Stool studies were negative for C Diff, calprotectin was normal and stool fat was elevated ? Stool electrolytes could not be performed since stool was formed ? Serum gastrin was elevated and normal on repeat testing after holding Omeprazole. ?IMAGING STUDIES: 03/16/22 BARIUM SWALLOW SHOWED: -Spontaneous gastroesophageal reflux to the level mid thoracicesophagus. -Bridging anterior osteophytes mid to lower cervical spine. Swellingfunction unremarkable. -No stricture, ulceration, or hiatal hernia. 01/[address] SCAN SHOWED:? 2 mm small radiopaque calculi nonobstructive lower pole right kidney? and mid pole left kidney. There are extrarenal kidney pelvises seen.? Mild constipation without obstruction. No evidence of panniculitis or diverticulitis. Small hiatal hernia.? Fatty lesion anterior body/tail of pancreas junction is stable. 02/15/2018:? ABD MRI SHOWED:Status post cholecystectomy.? No MRI evidence of intra or extrahepatic biliary obstruction, filling defects or stones.Pancreatic metrics incised are normal, no pancreatic mass found ENDOSCOPIC STUDIES: 11/22/23 EGD AND COLON SHOWED: Endoscopy Findings: Esophagus: GE junction at 32 cm, diaphragm hiatus at 35 cm, consistent with 3 cm sliding hiatal hernia, erosive esophagitis noted, LA grade A --esophageal inlet patch noted Stomach: Patchy erythema. Biopsies were obtained. Grade 2 flap valve on retroflexed examination of the cardia. Duodenum: Normal bulb and descending duodenum, bx taken Colonoscopy Findings: internal hemorrhoids with skin tags Plan: Await Pathology results Repeat Colonoscopy in 1 year due to areas of fair prep or earlier if clinically indicated High fiber diet leaflet avoid straining at stool, epsom salts and sitz bath, anusol supps or cream reflux precautions if H pylori pos then treat amyloids, IGG4 staining and mast cells was negative 12/22/22 EGD SHOWED: Endoscopy Findings:LARYNX: Changes suggestive of LPRD ESOPHAGUS: Hiatal hernia STOMACH: Diffuse gastritis DUODENUM: Two 2-3 mm superficial ulcers in the bulb and normal descending duodenum. Plan: Above findings were reviewed with the patient and Hiatal Hernia and PUD handouts were given in the discharge area [facility] Medical History Migraines Dysphagia Hx of flexible sigmoidoscopy Internal derangement of right shoulder Lump of left breast Chronic constipation Rotator cuff impingement syndrome of left shoulder Colitis Rotator cuff impingement syndrome Lateral epicondylitis of both elbows IBS (irritable bowel syndrome) Tendinopathy of left rotator cuff Multinodular thyroid Thyroid nodule GERD (gastroesophageal reflux disease) Allergic rhinitis Sciatic nerve pain Ovarian cyst Surgical History History of ureteroscopy Hx of cystoscopy History of carpal tunnel release (09/25/24) History of arthroscopic surgery of shoulder Hx of eye surgery History of breast lump/mass excision Hx of hemorrhoidectomy Hx of tubal ligation History of esophagogastroduodenoscopy (EGD) History of colonoscopy (~11/16/19) H/O: hysterectomy History of thyroidectomy (~11/2018) Hx of bilateral breast reduction surgery Hx of appendectomy History of cholecystectomy (~2003) H/O lithotripsy (04/30/24) Family History Father Family history of high blood pressure History of high cholesterol Mother History of diabetes mellitus Family history of high blood pressure Family history of asthma History of fibromyalgia Liver disease Maternal Grandfather Colon cancer Family/Other Breast cancer Maternal Aunt Breast cancer Family/Other Breast cancer Social History Household Members: Spouse Household Members Other:: daughter Housing: Apartment Are you a primary childcare provider to a significant other at home: No Do you presently have visiting nurse or other home services: No Alcohol intake: never Patient Tobacco Use Status: Former Tobacco user Tobacco use type: Cigarette Years Smoked: 15 e-Cigarette/Vaping Use: Never Used Second Hand Smoke Exposure: Yes Substance Use Type: Marijuana service: No Current occupational status: disabled Current occupation: right handed Sexual orientation: Straight/Heterosexual Gender identity: Female Cognitive needs: No Hearing needs: No Vision needs: Yes Female Reproductive History Menstrual Age of Menarche: 10 Review of Systems Const All systems reviewed & are unremarkable except as noted in HPI and below Physical Exam Vital Signs: Last Vital Signs Pulse 89 01/17/24 11:10 BP 152/90 H 01/17/24 11:10 BMI result Body Mass Index 37.8 Const General: no acute distress and anxious Nutritional Appearance: obese Orientation/consciousness: patient oriented x3 Limitations: no limitations HEENT Head: Yes normal to inspection Ears: hearing grossly normal bilaterally Eyes Sclerae: sclerae normal Pupils: Equal, round and reactive pupils present Neck Neck: Yes normal visual inspection Chest Chest palpation & inspection: normal inspection of the chest Resp Effort & Inspection: normal respiratory effort Auscultation: clear to auscultation bilaterally Cardio Palpation: normal PMI Rate: regular rate Rhythm: regular rhythm Heart sounds: S1 normal heart sound present, S2 normal heart sound present and no murmurs GI Palpation (GI): Soft to palpation, nontender and No hepatosplenomegaly present Auscultation: normal bowel sounds Rectal Exam - Female: deferred Skin General skin exam: no rashes or lesions noted Neuro General: patient oriented x3, gait normal and moves all extremities Cranial nerves: Yes Equal, round and reactive pupils present Psych Appearance: grossly normal Mental Status: mental status grossly normal Assessment & Plan Assessment & Plan (1) Pancreatic cyst: Comment: 8 mm cystic lesion in the pancreas - stable since 2013. Plan is to continue to follow with imaging every 2 years. If size increases to > 1 cms,she will need further evaluation with EUS/MRCP. 02/[address] scan showed Fatty lesion anterior body/tail of pancreas junction is stable. 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 Abdominal pain is likely due to IBS with constipation and diarrhea. Patient notes partial improvement in symptoms with senna, she has not used a suppository or enema in the past.? She tried dicyclomine in the past and was not helpful for abdominal pain. Patient had a colonoscopy on 11/18/19? for evaluation of rectal bleeding which revealed diverticulosis and no polyps.? Random biopsies obtained from the colon were negative for inflammation. 08/2020 Anorectal manometry with balloon expulsion testing at [facility] showed: IMPRESSIONS: Borderline anal hypertension and borderline anal hypocontractility (overall anal sphincter strength lower than average for gender) Abnormal balloon expulsion with normal manometric pattern of rectoanal coordination normal rectal propulsive force and normal anal relaxation with push) This is considered an inconclusive finding that can also be seen in normal controls according to the Wu classification. Mild rectal hypersensitivity suggestive of chronic constipation She complains of constipation x 2-3 days followed by soft/watery stools lasting for half a day. ?Patient was advised to take Miralax every other day for constipation and take Rifaximin x 14 days for suspected SIBO. Takes Miralax intermittently Pt was advised to go on a clear liquid diet and take Mag Citrate to clean out her colon. Then start taking Linzess for constipation. 01/30/22 - pt was advised stool studies, start a probiotic and increase sucralfate to 3-4 times daily 03/16/22 Pt was switched from Omeprazole to Pantoprazole 40 mg twice daily and started on Amitriptyline 25 mg at bedtime. 04/28/22 Amitriptyline dose was increased to 50 mg at bedtime Pt's wt gain is likely related to elevated TSH levels - repeat TSH planned in [address] Humphrey 11/30/22 Pt complains of left sided abd pain, bloating and worsening GERD symp toms after she was advised to take the Pantoprazole later in the day and stop sucralfate due to suspected drug interaction with Levothyroxine. Pt was advised to increase pantoprazole to 40 mg twice daily and amitriptyline to 75 mg at bedtime She will be scheduled for an EGD (last EGD in 2018 showed a small hiatal hernia and gastritis - no HP on bx) - scheduled on 12/22/22. 12/21/22 Pt seen with worsening upper abdominal pain, nausea, vomiting and unable to tolerate PO food. Pt had an elevated lipase on 12/18/22 Pt advised to return to the ED for repeat labs, lipase and a CT scan with IV contrast. She will need to be admitted if lipase remains elevated for bowel rest and IVF Repeat lipase was normal. ABD CT SCAN SHOWED: PANCREAS: Edematous appearing pancreas with peripancreatic stranding. This appears more pronounced than the 08/08/2020 examination. No peripancreatic fluid collections. No dilatation of the main pancreatic duct. CT findings were reviewed with the patient. 12/22/22 EGD was performed in findings as noted above. Order placed for MRCP for FU of pancreatitis Of note pt is status post lap macy and had a normal triglyceride level a few months ago. Pt advised to schedule an appt with Endocrinology 05/03/23 Lab and MRI results reviewed. Vaguely recall being treated with steroids in the past (? 2006). Complains of nausea and postprandial vomiting. Has been loosing weight. IgG4 level was elevated at 166.8 Additional lab, urine and stool test were ordered and not done yet - pt advised to complete ADDENDUM: 05/17/23 Pt called an lab results reviewed: Having watery stools for the past two weeks with bowel accidents Notes post prandial diarrhea which is very smelly. Stool appears greasy and sometime pale with white dots. No one is sick at home. Having 1 meal a day (rice, beans, chicken, eggs and toast) and keeps loosing weight. Started on antibiotics for suspected SIBO and has been taking it without impro vement in symptoms. Pt with long hx of Abd pain, diarrhea alternating with constipation initially diagnosed with IBS Enlarged pancreas on past CT and MRI showed a normal pancreas Elevated Ig G4 levels without other clinical signs of Ig G4 related disease 06/01/[address] Alegre for a 2nd opinion and additional labs were ordered and pt scheduled for EGD and colon 11/15/23 Not good, stomach hurts, intermittent watery diarrhea which is yellow in color Watery diarrhea for a few days and then constipation Has diarrhea 4 days per week (5 times a day) and constipation for the rest of the week Has not had a normal BM in the past several months Takes soups when she has the diarrhea and avoids taking solids. Continues to have constant nausea, bloating and burping. 11/22/23 EGD and Colon performed by Dr Alegre showed: EGD: Esophagus: GE junction at 32 cm, diaphragm hiatus at 35 cm, consistent with 3 cm sliding hiatal hernia, erosive esophagitis noted, LA grade A --esophageal inlet patch noted Balloon dilation was performed Stomach: Patchy erythema. Biopsies were obtained. Grade 2 flap valve on retroflexed examination of the cardia. Duodenum: Normal bulb and descending duodenum, bx taken Colonoscopy Findings: internal hemorrhoids with skin tags Plan: Await Pathology results Repeat Colonoscopy in 1 year due to areas of fair prep or earlier if clinically indicated High fiber diet leaflet avoid straining at stool, epsom salts and sitz bath, anusol supps or cream reflux precautions if H pylori pos then treat 01/17/24 EGD and colon results were reviewed with the patient Continues to have diarrhea 5-6 times a day - has diarrhea when she goes to pee Every time she eats, she has to go to the bathroom Noted difficulty swallowing while drinking a smoothie. Poopo is sarah - coffee grain material in the poop on toilet paper - green Had a lot of pain that day. Has gained weight - attributes to thyroid issues. 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
[2024-01-17 11:10] VITALS: BP 152/90; PULSE 89; BMI 37.8
== END 2024-01-17 12:59 | disposition home or self-care (01) ==
PROVIDERS: PCP Internal Medicine; Visit Provider Internal Medicine Gastroenterology
DX: K86.2 Cyst of pancreas (principal); K58.9 Irritable bowel syndrome, unspecified; K21.9 Gastro-esophageal reflux disease without esophagitis; R10.9 Unspecified abdominal pain; R74.8 Abnormal levels of other serum enzymes; K52.9 Noninfective gastroenteritis and colitis, unspecified; R76.8 Other specified abnormal immunological findings in serum; K63.8219 Small intestinal bacterial overgrowth, unspecified
CPT/HCPCS: 99499

== ENCOUNTER 2024-01-21 11:17 | Outpatient (AMB) | payer OTHER, SELFPAY ==
--- NOTE | 2024-01-21 11:18 | HO.NEPHOV_ITS ---
Vital Signs 01/21/24 11:19 Height 5 ft 5 in Weight 225 lb BMI 37.4 BP 148/98 H Blood Pressure Location Lt brachial Position Sitting Intake Visit Reasons: 6 mon follow up/ LVM Wheel Roller Required: No Accompanied by: Self / Same As Patient Allergies pineapple [PINEAPPLE] Allergy (Severe, Verified 01/21/24 11:20) ANAPHYLAXIS adhesive tape Allergy (Intermediate, Verified 01/21/24 11:20) Blister Iodinated Contrast Media [IV Dye, Iodine Containing] Allergy (Intermediate, Verified 01/21/24 11:20) SOB,RASH levofloxacin [From Levaquin] Allergy (Intermediate, Verified 01/21/24 11:20) swelling/rash oxycodone [From Percocet] Allergy (Intermediate, Verified 01/21/24 11:20) rash/SOB aspirin [ASA] Adverse Reaction (Mild, Verified 01/21/24 11:20) UPSET STOMACH HPI Comments Details: Ivonne is a 52-year-old woman with a history of renal stones. She is multiple medical problems including migraine. She has been on Topamax for quite some time. Recently she had imaging studies which showed 5 mm stone on the right kidney and and a 3 mm stone in the left kidney. There was mild left-sided hydronephrosis She has been followed by urologist as well She complains of back pain. She has some burning while urinating. No hematuria. She has not passed any kidney stones. No fever no rash. No edema. 01/21/24 c/o back pain on and off NO urinary symptoms follow up in Feb 2024 with [facility] Medical History (Updated 12/26/23 @ 08:51 by Tara Calhoun MD) Dysphagia Diarrhea Well woman exam Abnormal finding on EKG Hx of flexible sigmoidoscopy Internal derangement of right shoulder Lump of left breast Lump of right breast Lump of axillary tail of right breast Chronic constipation Rotator cuff impingement syndrome of left shoulder Right forearm pain Colitis Hypertensive urgency Rotator cuff impingement syndrome Lateral epicondylitis of both elbows Fall IBS (irritable bowel syndrome) Abdominal bloating Tendinopathy of left rotator cuff History of TIA (transient ischemic attack) Hypercholesterolemia Vitamin D deficiency Multinodular thyroid Pancreatic cyst Constipation Thyroid nodule Diarrhea Rectal bleeding Esophageal spasm GERD (gastroesophageal reflux disease) Hypertension Asthma Kidney stones History of migraine headaches Fibromyalgia Allergic rhinitis Sciatic nerve pain Ovarian cyst Hypothyroidism Surgical History History of arthroscopic surgery of shoulder Hx of eye surgery History of breast lump/mass excision Hx of hemorrhoidectomy Hx of tubal ligation History of esophagogastroduodenoscopy (EGD) History of colonoscopy (~11/16/19) H/O: hysterectomy History of thyroidectomy (~11/2018) History of kidney surgery Hx of bilateral breast reduction surgery Hx of appendectomy History of cholecystectomy (~2003) H/O lithotripsy Family History Father Family history of high blood pressure History of high cholesterol Mother History of diabetes mellitus Family history of high blood pressure Family history of asthma History of fibromyalgia Liver disease Maternal Grandfather Colon cancer Family/Other Breast cancer Social History Household Members: Spouse Household Members Other:: daughter Housing: Apartment Are you a primary patient care technician instructor to a significant other at home: No Do you presently have visiting nurse or other home services: No Alcohol intake: never Patient Tobacco Use Status: Former Tobacco user Tobacco use type: Cigarette Years Smoked: 15 e-Cigarette/Vaping Use: Never Used Second Hand Smoke Exposure: No Substance Use Type: Marijuana service: No Current occupational status: disabled Current occupation: right handed Sexual orientation: Straight/Heterosexual Gender identity: Female Cognitive needs: No Hearing needs: No Vision needs: Yes Female Reproductive History Menstrual Age of Menarche: 10 Physical Exam Vital Signs: Last Vital Signs BP 148/98 H 01/21/24 11:19 BMI result Body Mass Index 37.4 Comfortable Neck supple no JVD. Lungs entry equal no rales. Heart S1-S2 heard no gallop or rub. Abdomen soft nontender. Neuro alert awake oriented. No asterixis. Extremities no edema. Results Reviewed Nephrology Results: Hgb 15.1 g/dl (12.0-16.0) 12/26/23 WBC 8.7 X10*3/uL (4.8-10.8) 12/26/23 Plt Count 274 X10*3/uL (160-400) 12/26/23 Sodium 142 mmol/L (135-145) 12/26/23 Potassium 3.8 mmol/L (3.3-5.1) 12/26/23 Chloride 107 mmol/L (96-108) 12/26/23 Carbon Dioxide 25 mmol/L (22-29) 12/26/23 BUN 16 mg/dL (9-16) 12/26/23 Creatinine 0.75 mg/dL (0.5-1.4) 12/26/23 Calcium 9.5 mg/dL (8.4-10.2) 12/26/23 Assessment & Plan Assessment & Plan (1) Kidney stones: Code(s): N20.0 - Calculus of kidney Category: Medical Plan 52-year-old woman with a history of migraine who has been on Topamax has had multiple renal stones. I have initiated a workup for nephrolithiasis including a 24 urine collection. Topamax could be a contributing factor by inhibiting carbonic anhydrase and can precipitate forming stones. Discontinue Topamax. Stay on low-sodium diet. Increase p.o. fluid intake to maintain urine output of 2 L. Increase citrate ingestion. Decrease Oxalate intake- Gave instructions She could take Tylenol p.r.n. for back pain. Mild left hydro on sonogram in April 2023 follow up sonogram in Sep was unremarkable Follow up with in Feb with [facility] Coding Level of Care Code Est Pt Level 4 (83962) Diagnoses Kidney stones N20.0
[2024-01-21 11:19] VITALS: BP 148/98; BMI 37.4
== END 2024-01-21 11:34 | disposition home or self-care (01) ==
PROVIDERS: PCP Internal Medicine; Visit Provider Internal Medicine Hypertension Specialist
DX: N20.0 Calculus of kidney (principal)
CPT/HCPCS: 99214

== ENCOUNTER → 2024-01-21 11:17 | Outpatient (BNVA) | payer OTHER, SELFPAY | PROVIDERS: PCP Internal Medicine; Visit Provider Internal Medicine Hypertension Specialist | DX: N20.0 Calculus of kidney (principal) | CPT/HCPCS: 99212 ==

== ENCOUNTER 2024-01-31 14:50 | Outpatient (AMB) | payer OTHER, SELFPAY ==
--- NOTE | 2024-01-31 14:55 | A.OFFPC_ITS ---
Vital Signs 01/31/24 14:56 Height 5 ft 5 in Weight 222 lb 8 oz BMI 37.0 BP 150/100 H Blood Pressure Location Lt brachial Position Sitting Pulse 83 Pulse Source Pulse Oximeter Pulse Oximetry (%) 97 Oxygen Delivery Method Room Air Intake Visit Reasons: LiquidOnEarLotsOfPainHeadaches Intake Note: Patient is here today for follow up on Fluid in right ear and headaches. Undercar Specialist Required: No Molder Foam Rubber: Not Required per policy Accompanied by: Self / Same As Patient Allergies pineapple [PINEAPPLE] Allergy (Severe, Verified 01/31/24 15:07) ANAPHYLAXIS adhesive tape Allergy (Intermediate, Verified 01/31/24 15:07) Blister Iodinated Contrast Media [IV Dye, Iodine Containing] Allergy (Intermediate, Verified 01/31/24 15:07) SOB,RASH levofloxacin [From Levaquin] Allergy (Intermediate, Verified 01/31/24 15:07) swelling/rash oxycodone [From Percocet] Allergy (Intermediate, Verified 01/31/24 15:07) rash/SOB aspirin [ASA] Adverse Reaction (Mild, Verified 01/31/24 15:07) UPSET STOMACH Medication List - Last Reconciled 01/31/24 by Donis Barron PA-C amlodipine 10 mg PO DAILY atorvastatin (Lipitor) 10 mg PO DAILY budesonide-formoterol 160-4.5 mcg/actuation (Symbicort) 2 puffs inhalation BID cholecalciferol (vitamin D3) (Vitamin D3) 50 mcg PO DAILY docusate sodium 100 mg PO BID famotidine 20 mg PO BEDTIME PRN 90 days fluticasone furoate-vilanterol 200-25 mcg/dose (Breo Ellipta) 1 inh inhalation DAILY 30 days ipratropium-albuterol 0.5 mg-3 mg(2.5 mg base)/3 mL 3 mL inhalation Q4-6H PRN szfbyl-vwrkgkdb-jmocfak 10,000-32,000 -42,000 unit (Zenpep) 1 cap PO TID 30 days lisinopril 10 mg PO DAILY lorazepam 1 mg PO ONCE PRN metoprolol tartrate 100 mg PO BID 90 days omalizumab (Xolair) 300 mg (2 mL) subcut Q2W omeprazole 20 mg PO BID pyridoxine (vitamin B6) 100 mg PO DAILY rabeprazole 20 mg PO DAILY 90 days Tirosint (levothyroxine) 175 mcg PO DAILY NS topiramate 50 mg PO BID umeclidinium 62.5 mcg/actuation (Incruse Ellipta) 1 inh inhalation DAILY 30 days Ventolin HFA 90 mcg/actuation (albuterol sulfate) 2 puffs inhalation Q4-6H PRN 30 days NS Tobacco use date assessed: 01/31/24 Dental Screening Dental Screen Date: 04/25/23 HPI LiquidOnEarLotsOfPainHeadaches HPI Details The patient is a 53-year-old female presenting with chronic pain, depression, and persistent ear issues. She has a history of fibromyalgia, which has significantly worsened over the past three years, coinciding with the of her niece and mother, leading to severe depression and anxiety. The fibromyalgia results in chronic pain throughout her body, including headaches and muscle pain, and she reports multiple unsuccessful medication trials, including gabapentin and other unspecified treatments, without sustained relief. The patient's depression, compounded by considerable personal loss, exacerbates her pain and disrupts her sleep. Her chronic ear issue began approximately two years ago, characterized by bilateral ear pain, pressure, and chronic drainage varying in color. Previous CT imaging of her head and mastoid regions did not uncover specific pathologies, and past antibiotic treatments provided minimal relief. She reports a history of otitis externa without improvement. She has a history of hypertension, which remains poorly controlled despite current medications including amlodipine, lisinopril, and metoprolol. This may be exacerbated by her chronic pain. She also reports a family history of cardiovascular diseases, including her mother's from hypertension-related complications and her father's pacemaker implantation. Additional medical issues include IBS, diagnosed due to persistent gastrointestinal symptoms and previous diagnosis of Crohn's disease, though not currently confirmed in records. The patient mentions GERD, treated with various medications, resulting in ongoing dyspeptic symptoms. She also has hypothyroidism, contributing to weight management challenges. [facility] Medical History (Updated 02/04/24 @ 07:34 by Donis Barron PA-C) Dysphagia Diarrhea Well woman exam Abnormal finding on EKG Hx of flexible sigmoidoscopy Internal derangement of right shoulder Lump of left breast Lump of right breast Lump of axillary tail of right breast Chronic constipation Rotator cuff impingement syndrome of left shoulder Right forearm pain Colitis Hypertensive urgency Rotator cuff impingement syndrome Lateral epicondylitis of both elbows Fall IBS (irritable bowel syndrome) Abdominal bloating Tendinopathy of left rotator cuff History of TIA (transient ischemic attack) Hypercholesterolemia Vitamin D deficiency Multinodular thyroid Pancreatic cyst Constipation Thyroid nodule Diarrhea Rectal bleeding Esophageal spasm GERD (gastroesophageal reflux disease) Hypertension Asthma Kidney stones History of migraine headaches Fibromyalgia Allergic rhinitis Sciatic nerve pain Ovarian cyst Hypothyroidism Surgical History History of arthroscopic surgery of shoulder Hx of eye surgery History of breast lump/mass excision Hx of hemorrhoidectomy Hx of tubal ligation History of esophagogastroduodenoscopy (EGD) History of colonoscopy (~11/16/19) H/O: hysterectomy History of thyroidectomy (~11/2018) History of kidney surgery Hx of bilateral breast reduction surgery Hx of appendectomy History of cholecystectomy (~2003) H/O lithotripsy Family History Father Family history of high blood pressure History of high cholesterol Mother History of diabetes mellitus Family history of high blood pressure Family history of asthma History of fibromyalgia Liver disease Maternal Grandfather Colon cancer Family/Other Breast cancer Social History Household Members: Spouse Household Members Other:: daughter Housing: Apartment Are you a primary home health care respiratory therapist to a significant other at home: No Do you presently have visiting nurse or other home services: No Alcohol intake: never Patient Tobacco Use Status: Former Tobacco user Tobacco use type: Cigarette Years Smoked: 15 e-Cigarette/Vaping Use: Never Used Second Hand Smoke Exposure: Yes Substance Use Type: Marijuana service: No Current occupational status: disabled Current occupation: right handed Sexual orientation: Straight/Heterosexual Gender identity: Female Cognitive needs: No Hearing needs: No Vision needs: Yes Female Reproductive History Menstrual Age of Menarche: 10 Questionnaire Thrive Questionnaire Date Thrive assessed: 04/25/23 INDRA-7 AMB Questionnaire INDRA-7 Date INDRA - 7 assessed: 04/25/23 Source: Developed by Drs. Rainer Caldwell, Ashanti Malone, Hank Dewitt and colleagues, with an educational mayco from [employer]. Review of Systems Const Denies headache(s) Eyes Denies loss of vision ENT Denies vertigo, Denies dizziness, Denies headache(s), Reports neck pain and Denies sore throat Card Denies chest pain, Denies leg edema and Denies lightheadedness Resp Denies cough, Denies hemoptysis and Denies wheezing GI Denies abdominal pain, Denies melena, Denies constipation, Denies diarrhea and Denies vomiting Denies urinary frequency, Denies dysuria and Denies urinary urgency Musc Reports back pain, Denies arthralgias, Denies joint swelling, Reports muscle weakness, Reports neck pain, Denies numbness, Reports stiffness and Denies tingling Neuro Denies Abnormal speech present, Denies behavioral changes, Denies vertigo, Denies dizziness, Denies headache(s), Denies loss of vision, Denies memory loss, Denies numbness and Denies tingling Psych Denies anxiety, Denies behavioral changes, Denies depression, Denies memory loss and Denies panic attacks Chuy/Lymph Denies easy bleeding and Denies easy bruising Aller/Immun Denies wheezing Physical exam (Primary Care) Vital Signs: Last Vital Signs Pulse 83 01/31/24 14:56 BP 150/100 H 01/31/24 14:56 Pulse Ox 97 01/31/24 14:56 Oxygen Delivery Method Room Air 01/31/24 14:56 BMI result Body Mass Index 37.0 Tobacco/Smoking Status: Tobacco use Status Tobacco use date assessed 01/31/24 01/31/24 14:58 Patient Tobacco Use Status Former Tobacco user 01/31/24 14:58 Tobacco use type Cigarette 01/31/24 14:58 e-Cigarette/Vaping Use Never Used 01/31/24 14:58 Thrive Assessment: Date of Thrive Assessment Date Thrive assessed 04/25/23 01/31/24 14:58 Const General: healthy appearing, no acute distress, alert and awake Nutritional Appearance: well nourished Orientation/consciousness: oriented to person, oriented to place and oriented to time HENMT Ears: TM's normal bilaterally General nose exam: Normal nasal mucous membranes and turbinates present Eyes Conjunctivae: conjunctivae normal Sclerae: sclerae normal Pupils: Equal, round and reactive pupils present Neck Neck: Yes no lymphadenopathy and Yes no JVD Thyroid: Thyroid normal Carotids: no bruits Resp Effort & Inspection: normal respiratory effort and not tachypneic Auscultation: no crackles, no rales, no rhonchi and no wheezes Cardio Rate: regular rate Rhythm: regular rhythm Heart sounds: no murmurs and normal S1 and S2 GI Palpation (GI): Soft to palpation, nontender, no hepatomegaly and no splenomegaly Auscultation: normal bowel sounds Skin General skin exam: no rashes or lesions noted and dry skin Neuro General: oriented to person, oriented to place and oriented to time Cranial nerves: Yes Equal, round and reactive pupils present Speech: No Abnormal speech present Gait exam (Neuro): Normal gait present Motor exam (neuro): no tremor noted Extrem Right upper extremity: full ROM Left upper extremity: full ROM Right lower extremity: full ROM; no edema Left lower extremity: full ROM; no edema Psych Mental Status: mental status grossly normal Speech and movement: Normal speech and movement present Affect: normal affect Attitude: cooperative Thought process: Normal thought process present Coding Level of Care Code Est Pt Level 4 (76605) Diagnoses Essential hypertension I10 Hypertension type: essential hypertension Severe persistent asthma, unspecified whether complicated J45.50 Asthma complication type: unspecified Asthma persistence: persistent Asthma severity: severe Fibromyalgia M79.7 Congestion of both ears H93.8X3 Laterality: bilateral Disorder of both eustachian tubes H69.93 Laterality: bilateral MDD (major depressive disorder), recurrent episode, moderate F33.1 Abrasion of nose, initial encounter S00.31XA Encounter type: initial encounter Assessment & Plan Assessment & Plan (1) Hypertension: Code(s): I10 - Essential (primary) hypertension Category: Medical Qualifiers: Hypertension type: essential hypertension Qualified Code(s): I10 - Essential (primary) hypertension Plan: Patient's blood pressure elevated today in office. Seems to been elevated at previous MD visits. Will increase her lisinopril dose for better blood pressure control. Blood pressure elevations likely secondary to her chronic pain and anxiety. Will work on these issues as well. (2) Asthma: Code(s): J45.909 - Unspecified asthma, uncomplicated Category: Medical Qualifiers: Asthma complication type: unspecified Asthma persistence: persistent Asthma severity: severe Qualified Code(s): J45.50 - Severe persistent asthma, uncomplicated (3) Fibromyalgia: Code(s): M79.7 - Fibromyalgia Category: Medical Plan: As per HPI patient continues to have chronic pain in the setting of uncontrolled anxiety and depression. Will work on her mental health by trying to get her into cognitive behavioral therapy. She seems to be going through grief at this moment as she had mentioned to family deaths recently. Also will trial a muscle relaxer (tizanidine) on an as needed basis for her muscular pain. (4) Ear congestion: Code(s): H93.8X9 - Other specified disorders of ear, unspecified ear Category: Medical Qualifiers: Laterality: bilateral Qualified Code(s): H93.8X3 - Other specified disorders of ear, bilateral Plan: Physical exam of bilateral ears benign. Seems that she is having some kind of a Eustachian tube dysfunction. Advised on antihistamine therapy, Eustachian tube dysfunction exercises and will try a alternative nasal spray. (5) Eustachian tube disorder: Code(s): H69.90 - Unspecified Eustachian tube disorder, unspecified ear Category: Medical Qualifiers: Laterality: bilateral Qualified Code(s): H69.93 - Unspecified Eustach viktoria tube disorder, bilateral Plan: As above (6) MDD (major depressive disorder), recurrent episode, moderate: Code(s): F33.1 - Major depressive disorder, recurrent, moderate Category: Medical Plan: As per HPI patient's seems to be suffering with depression. She is willing to speak with a mental health therapist and eventually a psychiatrist in near future. (7) Nasal abrasion: Code(s): S00.31XA - Abrasion of nose, initial encounter Category: Medical Qualifiers: Encounter type: initial encounter Qualified Code(s): S00.31XA - Abrasion of nose, initial encounter Plan: As below Plan - Continue current management for fibromyalgia and initiate trial of tizanidine as a muscle relaxant for pain control. - Recommend mental health therapy for depression and anxiety management. - ENT referral provided for further evaluation of chronic ear issues. - Prescribe nasal ipratropium spray and an antibiotic ointment for nasal scabbing. - Adjust lisinopril dosage as part of hypertension management. - Suggest dietary modifications and antacid therapy for GERD symptoms. - Continuous monitoring of thyroid levels, adjusting therapy as needed. - No ear drops to be used unless advised by ENT specialist. Orders: Referrals Counseling Referral F33.1 - Major depressive disorder, recurrent, moderate Medications: New lisinopril 30 mg PO DAILY 30 days 30 tabs 2RF I10 - Essential (primary) hypertension tizanidine 2 mg PO BID 30 days PRN 60 tabs 0RF muscle spasticity M79.7 - Fibromyalgia mupirocin 2% 1 appl topical BID 30 days 22 grams 0RF S00.31XA - Abrasion of nose, initial encounter ipratropium bromide administer into each nostril 2 sprays intranasal TID 30 days 15 mL 3RF H69.93 - Unspecified Eustachian tube disorder, bilateral
[2024-01-31 14:56] VITALS: BP 150/100; PULSE 83; O2SAT 97; BMI 37.0
== END 2024-01-31 15:41 | disposition home or self-care (01) ==
PROVIDERS: PCP Physician Assistant; Visit Provider Physician Assistant
DX: I10 Essential (primary) hypertension (principal); F33.1 Major depressive disorder, recurrent, moderate; J45.50 Severe persistent asthma, uncomplicated; M79.7 Fibromyalgia; H93.8X3 Other specified disorders of ear, bilateral; H69.93 Unspecified Eustachian tube disorder, bilateral; S00.31XA Abrasion of nose, initial encounter

== ENCOUNTER → 2024-01-31 14:50 | Outpatient (BNVA) | payer OTHER, SELFPAY | PROVIDERS: PCP Physician Assistant; Visit Provider Physician Assistant | DX: I10 Essential (primary) hypertension (principal); J45.50 Severe persistent asthma, uncomplicated; M79.7 Fibromyalgia; H93.8X3 Other specified disorders of ear, bilateral; H69.93 Unspecified Eustachian tube disorder, bilateral; F33.1 Major depressive disorder, recurrent, moderate; S00.31XA Abrasion of nose, initial encounter | CPT/HCPCS: 99212 ==

== ENCOUNTER 2024-02-13 15:00 | Outpatient (AMB) | payer OTHER, SELFPAY ==
--- NOTE | 2024-02-13 15:01 | MHC.OFFVIS ---
Vital Signs 02/13/24 15:03 Height 5 ft 5 in Weight 231 lb BMI 38.4 BP 122/86 Blood Pressure Location Rt brachial Position Sitting Pulse 100 Pulse Source Doppler Pulse Oximetry (%) 96 Oxygen Delivery Method Room Air Intake Visit Reasons: Asthma Allergies pineapple [PINEAPPLE] Allergy (Severe, Verified 01/31/24 15:07) ANAPHYLAXIS adhesive tape Allergy (Intermediate, Verified 01/31/24 15:07) Blister Iodinated Contrast Media [IV Dye, Iodine Containing] Allergy (Intermediate, Verified 01/31/24 15:07) SOB,RASH levofloxacin [From Levaquin] Allergy (Intermediate, Verified 01/31/24 15:07) swelling/rash oxycodone [From Percocet] Allergy (Intermediate, Verified 01/31/24 15:07) rash/SOB aspirin [ASA] Adverse Reaction (Mild, Verified 01/31/24 15:07) UPSET STOMACH HPI HPI Asthma: Details: 53-year-old lady with underlying severe persistent allergic asthma and environmental allergies she has been using Xolair, Incruse, and albuterol MDI, now with slowly worsening control. Though, she denies acute exacerbations. [facility], [facility] Medical History (Updated 02/11/24 @ 15:33 by Pravin Odonnell MD) Dysphagia Diarrhea Well woman exam Abnormal finding on EKG Hx of flexible sigmoidoscopy Internal derangement of right shoulder Lump of left breast Lump of right breast Lump of axillary tail of right breast Chronic constipation Rotator cuff impingement syndrome of left shoulder Right forearm pain Colitis Hypertensive urgency Rotator cuff impingement syndrome Lateral epicondylitis of both elbows Fall IBS (irritable bowel syndrome) Abdominal bloating Tendinopathy of left rotator cuff History of TIA (transient ischemic attack) Hypercholesterolemia Vitamin D deficiency Multinodular thyroid Pancreatic cyst Constipation Thyroid nodule Diarrhea Rectal bleeding Esophageal spasm GERD (gastroesophageal reflux disease) Hypertension Asthma Kidney stones History of migraine headaches Fibromyalgia Allergic rhinitis Sciatic nerve pain Ovarian cyst Hypothyroidism Surgical History History of arthroscopic surgery of shoulder Hx of eye surgery History of breast lump/mass excision Hx of hemorrhoidectomy Hx of tubal ligation History of esophagogastroduodenoscopy (EGD) History of colonoscopy (~11/16/19) H/O: hysterectomy History of thyroidectomy (~11/2018) History of kidney surgery Hx of bilateral breast reduction surgery Hx of appendectomy History of cholecystectomy (~2003) H/O lithotripsy Family History Father Family history of high blood pressure History of high cholesterol Mother History of diabetes mellitus Family history of high blood pressure Family history of asthma History of fibromyalgia Liver disease Maternal Grandfather Colon cancer Family/Other Breast cancer Social History Household Members: Spouse Household Members Other:: daughter Housing: Apartment Are you a primary healthcare consulting manager to a significant other at home: No Do you presently have visiting nurse or other home services: No Alcohol intake: never Patient Tobacco Use Status: Former Tobacco user Tobacco use type: Cigarette Years Smoked: 15 e-Cigarette/Vaping Use: Never Used Second Hand Smoke Exposure: Yes Substance Use Type: Marijuana service: No Current occupational status: disabled Current occupation: right handed Sexual orientation: Straight/Heterosexual Gender identity: Female Cognitive needs: No Hearing needs: No Vision needs: Yes Female Reproductive History Menstrual Age of Menarche: 10 Review of Systems Const Denies daytime sleepiness, Denies excessive sweating, Denies fatigue, Denies fever(s), Denies lethargy, Denies malaise, Denies night sweats, Denies snoring and Denies weight loss Eyes Denies blurry vision and Denies itchy eyes ENT Denies nasal congestion, Denies post nasal drip, Denies sinus pain, Denies sinus pressure and Denies other ( Thrush) Card Denies chest pain, Denies pedal edema, Denies dyspnea, Denies orthopnea and Denies paroxysmal nocturnal dyspnea Resp Denies cough, Denies hemoptysis, Denies excessive phlegm production, Denies dyspnea, Denies snoring and Denies wheezing GI Denies abdominal pain and Denies heartburn Musc Denies myalgias, Denies arthralgias and Denies joint swelling Skin/Breast Denies rash Neuro Denies memory loss and Denies seizure-like activity Psych Denies abnormal sleep pattern, Denies anxiety and Denies memory loss Endo Denies excessive sweating, Denies fatigue and Denies heat intolerance Chuy/Lymph Denies easy bruising Aller/Immun Denies itchy eyes, Denies seasonal rhinorrhea and Denies wheezing Physical Exam Vital Signs: Last Vital Signs Pulse 100 02/13/24 15:03 BP 122/86 02/13/24 15:03 Pulse Ox 96 02/13/24 15:03 Oxygen Delivery Method Room Air 02/13/24 15:03 BMI result Body Mass Index 38.4 Const General: no acute distress and alert Nutritional Appearance: not obese Orientation/consciousness: Other orientation findings ( oriented) HEENT Head: Yes atraumatic Eyes General: appearance normal, both eyes and all related structures Sclerae: sclerae normal EOM: EOMs intact bilaterally Neck Neck: Yes supple Lymphatic: no lymphadenopathy noted Resp Effort & Inspection: normal respiratory effort and no use of accessory muscles Auscultation: clear to auscultation bilaterally Cardio Rate: regular rate Rhythm: regular rhythm Heart sounds: no gallops, no murmurs and no rubs Skin General skin exam: other ( warm) Extrem General: No clubbing, No cyanosis and No edema Assessment & Plan Assessment & Plan (1) Severe persistent asthma: Code(s): J45.50 - Severe persistent asthma, uncomplicated Category: Medical Plan: Worsening control on Xolair, Incruse, and albuterol MDI. Will change Incruse to Trelegy. (2) Environmental allergies: Code(s): Z91.09 - Other allergy status, other than to drugs and biological substances Category: Medical Plan: Well controlled on Xolair. Continue current regimen. Medications: New ufrqoutqrqb-hgeyhdzmw-bjekjffc 200-62.5-25 mcg (Trelegy Ellipta) 1 inh inhalation DAILY 1 ea 6RF Discontinued umeclidinium 62.5 mcg/actuation (Incruse Ellipta) Discontinued Reason: Doctor's Order 1 inh inhalation DAILY 30 days 30 ea 6RF Coding Level of Care Code Est Pt Level 4 (86992) Diagnoses Severe persistent asthma J45.50 Environmental allergies Z91.09
[2024-02-13 15:03] VITALS: BP 122/86; PULSE 100; O2SAT 96; BMI 38.4
== END 2024-02-13 15:29 | disposition home or self-care (01) ==
PROVIDERS: PCP Internal Medicine; Visit Provider Internal Medicine Pulmonary Disease
DX: J45.50 Severe persistent asthma, uncomplicated (principal); Z91.09 Other allergy status, other than to drugs and biological substances
CPT/HCPCS: 99214

== ENCOUNTER → 2024-02-13 15:00 | Outpatient (BNVA) | payer OTHER, SELFPAY | PROVIDERS: PCP Internal Medicine; Visit Provider Internal Medicine Pulmonary Disease | DX: J45.50 Severe persistent asthma, uncomplicated (principal); Z91.09 Other allergy status, other than to drugs and biological substances | CPT/HCPCS: 99212 ==

== ENCOUNTER 2024-02-18 14:31 | Outpatient (AMB) | payer OTHER, SELFPAY ==
--- NOTE | 2024-02-18 14:31 | A.OFFVIS_ITS ---
Vital Signs 02/18/24 14:32 Height 5 ft 5 in Weight 228 lb 6.382 oz BMI 38.0 BP 134/90 H Blood Pressure Location Lt brachial Position Sitting Pulse 76 Pulse Source Monitor Intake Visit Reasons: 2-3m follow up Airways Control Specialist Required: No Allergies pineapple [PINEAPPLE] Allergy (Severe, Verified 02/18/24 14:34) ANAPHYLAXIS adhesive tape Allergy (Intermediate, Verified 02/18/24 14:34) Blister Iodinated Contrast Media [IV Dye, Iodine Containing] Allergy (Intermediate, Verified 02/18/24 14:34) SOB,RASH levofloxacin [From Levaquin] Allergy (Intermediate, Verified 02/18/24 14:34) swelling/rash oxycodone [From Percocet] Allergy (Intermediate, Verified 02/18/24 14:34) rash/SOB aspirin [ASA] Adverse Reaction (Mild, Verified 02/18/24 14:34) UPSET STOMACH Medication List - Last Reconciled 02/18/24 by YOSSI Jones amlodipine 10 mg PO DAILY atorvastatin (Lipitor) 10 mg PO DAILY cholecalciferol (vitamin D3) (Vitamin D3) 50 mcg PO DAILY diphenhydramine HCl (Benadryl Allergy) 25 mg orally one tablet this evening and one tablet tomorrow am; docusate sodium 100 mg PO BID famotidine 20 mg PO BEDTIME PRN 90 days [id number]-[id number]-hddghecw 200-62.5-25 mcg (Trelegy Ellipta) 1 inh inhalatio n DAILY ipratropium bromide 2 sprays intranasal TID 30 days ipratropium-albuterol 0.5 mg-3 mg(2.5 mg base)/3 mL 3 mL inhalation Q4-6H PRN [id number]-ilblocx 10,000-32,000 -42,000 unit (Zenpep) 1 cap PO TID 30 days lisinopril 30 mg PO DAILY 30 days lorazepam 1 mg PO ONCE PRN metoprolol tartrate 100 mg PO BID 90 days mupirocin 2% 1 appl topical BID 30 days omalizumab (Xolair) 300 mg (2 mL) subcut Q2W omeprazole 20 mg PO BID prednisone 20 mg orally one tablet this evening and one tablet tomorrow am; pyridoxine (vitamin B6) 100 mg PO DAILY rabeprazole 20 mg PO DAILY 90 days Tirosint (levothyroxine) 175 mcg PO DAILY NS tizanidine 2 mg PO BID PRN 30 days topiramate 50 mg PO BID Ventolin HFA 90 mcg/actuation (albuterol sulfate) 2 puffs inhalation Q4-6H PRN 30 days NS HPI HPI 2-3m follow up: Details: Gloria is a 53-year-old female with past medical history of obesity, hypertension, hyperlipidemia who has undergone evaluation for chest discomfort and heart palpitations without significant findings. On last visit she reported 2 episodes of brief vision loss and underwent a carotid ultrasound which showed no significant stenosis. Today she reports that she did notice heart palpitations when she wore the heart monitor. She will feel her heart beating strong and fast. She has not had any very rapid rates or irregular rhythms, fluttering noted. She states her palpitations are preceded by discomfort in her mid chest. She tells me she has fibromyalgia and believes this may be contributing to her chest discomfort. No chest discomfort or palpitations brought on by physical activity. No concerning shortness of breath, no PND, orthopnea or edema. No presyncope, syncope, falls. She does state that she has had her episodes of visual loss 15-20 times since last visit. She states the last episode happened 5 days ago and lasted approximately 20 seconds. The episodes can occur at any time and have no associated symptoms. She describes it occurring in both eyes simultaneously. She reports having high anxiety and stress levels and states she can not do an MRI. She has a contrast dye allergy and will need to be premedicated prior to a CT scan. Discussed ER evaluation and she declines. She says she had a TIA years ago. She has had no weakness of her extremities or mobility issues. [facility] Medical History Dysphagia Diarrhea Well woman exam Abnormal finding on EKG Hx of flexible sigmoidoscopy Internal derangement of right shoulder Lump of left breast Lump of right breast Lump of axillary tail of right breast Chronic constipation Rotator cuff impingement syndrome of left shoulder Right forearm pain Colitis Hypertensive urgency Rotator cuff impingement syndrome Lateral epicondylitis of both elbows Fall IBS (irritable bowel syndrome) Abdominal bloating Tendinopathy of left rotator cuff History of TIA (transient ischemic attack) Hypercholesterolemia Vitamin D deficiency Multinodular thyroid Pancreatic cyst Constipation Thyroid nodule Diarrhea Rectal bleeding Esophageal spasm GERD (gastroesophageal reflux disease) Hypertension Asthma Kidney stones History of migraine headaches Fibromyalgia Allergic rhinitis Sciatic nerve pain Ovarian cyst Hypothyroidism Surgical History History of arthroscopic surgery of shoulder Hx of eye surgery History of breast lump/mass excision Hx of hemorrhoidectomy Hx of tubal ligation History of esophagogastroduodenoscopy (EGD) History of colonoscopy (~11/16/19) H/O: hysterectomy History of thyroidectomy (~11/2018) History of kidney surgery Hx of bilateral breast reduction surgery Hx of appendectomy History of cholecystectomy (~2003) H/O lithotripsy Family History Father Family history of high blood pressure History of high cholesterol Mother History of diabetes mellitus Family history of high blood pressure Family history of asthma History of fibromyalgia Liver disease Maternal Grandfather Colon cancer Family/Other Breast cancer Social History Household Members: Spouse Household Members Other:: daughter Housing: Apartment Are you a primary healthcare liaison to a significant other at home: No Do you presently have visiting nurse or other home services: No Alcohol intake: never Patient Tobacco Use Status: Former Tobacco user Tobacco use type: Cigarette Years Smoked: 15 e-Cigarette/Vaping Use: Never Used Second Hand Smoke Exposure: Yes Substance Use Type: Marijuana service: No Current occupational status: disabled Current occupation: right handed Sexual orientation: Straight/Heterosexual Gender identity: Female Cognitive needs: No Hearing needs: No Vision needs: Yes Female Reproductive History Menstrual Age of Menarche: 10 Review of Systems Const All systems reviewed & are unremarkable except as noted in HPI and below Eyes Reports change in vision and Reports loss of vision (intermittent episodes) ENT Denies dizziness Card Denies chest pain, Denies chest pain at rest, Denies chest pain with activity, Denies rapid heart rate, Denies pedal edema, Denies edema, Denies leg edema, Denies lightheadedness, Reports palpitations, Denies dyspnea, Denies dyspnea on exertion and Denies orthopnea Resp Denies cough, Denies dyspnea and Denies dyspnea on exertion GI Denies hematochezia and Denies change in stool character Musc Denies abnormal gait, Denies limited range of motion, Denies muscle cramps, Denies muscle weakness, Denies numbness, Denies radiating pain into limb, Denies stiffness and Denies tingling Neuro Denies abnormal gait, Denies dizziness, Reports loss of vision (intermittent episodes), Denies numbness and Denies tingling Endo Reports palpitations Physical Exam Vital Signs: Last Vital Signs Pulse 76 02/18/24 14:32 BP 134/90 H 02/18/24 14:32 BMI result Body Mass Index 38.0 Const General: cooperative, healthy appearing, comfortable and no acute distress Orientation/consciousness: patient oriented x3 Neck Neck: Yes normal visual inspection and Yes no JVD Carotids: normal carotid upstroke Resp Effort & Inspection: normal respiratory effort Auscultation: clear to auscultation bilaterally, no crackles, no rales, no rhonchi and no wheezes Cardio Jugular venous distension: no JVD Rate: regular rate Rhythm: regular rhythm Heart sounds: S1 normal heart sound present, S2 normal heart sound present, no murmurs and no rubs Neuro General: patient oriented x3 Extrem General: Yes normal to inspection, No no pedal edema and No calf tenderness Psych Appearance: grossly normal Mental Status: mental status grossly normal Speech and movement: Normal speech and movement present Office Procedures EKG Details: Today, read by me SR, rate 76, QTc 456ms [id number], Complete Assessment & Plan Assessment & Plan (1) Alteration in vision: Code(s): H54.7 - Unspecified visual loss Category: Medical Plan: On last visit, 11/15/2023, Patient reports brief loss of vision x2 during intercourse with her . No speech or mobility issues. Carotid bruit not noted on exam. A carotid ultrasound was done on 11/26/2023 showing normal right ICA, minimal, non hemodynamically significant stenosis of the proximal left ICA, 0-49% stenosis. Today she reports that since her last visit she has had 15-20 more episodes of brief vision loss. She says her vision goes black in each eye, last episode occurring 5 days ago and lasting 20 seconds. She has not sought any medical attention for this since I last saw her. To me, her description sounds like amaurosis fugax. The urgency of this issue was discussed with her in detail and she states understanding. The risk of CVA, permanent vision loss reviewed. Recommended ER evaluation with imaging today and she declines. She is very anxious and tearful. Stat outpatient MRA of the head and neck was ordered however patient refuses. She says with her anxiety she absolutely can not do an MRI/MRA. I did offer to order an anti anxiety medication but she did not feel it would be helpful. Will plan for a CTA of the head and neck ideally to be done today however she has a contrast dye allergy. I will order the test to be done stat, tomorrow a.m. and plan for allergy premedication prior to testing. She is agreeable to this plan. Test ordered and does need to go through the insurance prior authorization prior to it being scheduled. I requested the test to be done tomorrow a.m.. Informed her that if she has another episode she is to seek emergency medical care [facility]OL[facility]. Will plan to call her with test results once available. (2) AF (amaurosis fugax): Code(s): G45.3 - Amaurosis fugax Category: Medical Plan: Suspected as above. (3) History of TIA (transient ischemic attack): Comment: 07/2020 @ [facility] [place]-due to uncontrolled HTN per patient-no residual Code(s): Z86.73 - Personal history of transient ischemic attack (TIA), and cerebral infarction without residual deficits Category: Medical Plan: As above (4) Palpitations: Code(s): R00.2 - Palpitations Category: Medical Plan: Reports of heart palpitations like her heart is going fast. She is on metop rolol tartrate 100 mg b.i.d.. EKG done last visit showed sinus tachycardia, rate 106. She has normal OH, QRS and QTC intervals. Labs done 01/07/2024 showed TSH 0.36, free T4 1.77. Holter monitor done on 12/04/2023 for 5 days showed sinus rhythm with average heart rate 93, no significant ectopy seen. Test results reviewed with her. She continues to report rapid heartbeats. No fluttering or irregular beats suggestive of AFib. She does describe TIA in the past and now with reports of intermittent vision loss. CTA of the head and neck ordered as above. Pending results. She may need further testing for the occurrence of PAF. At this time it seems that she has symptoms with sinus rhythm/sinus tachycardia. She may even have inappropriate sinus tach however it is unclear as she is on a large dose of metoprolol. Reviewed good hydration, getting adequate rest, limiting caffeine and anxiety control. (5) Precordial chest pain: Code(s): R07.2 - Precordial pain Category: Medical Plan: Reports of Atypical sounding chest discomfort that is occurring at rest and with activity. Echocardiogram done 09/11/2023 showing EF 60-65%, mild LVH, impaired relaxation, no valve abnormalities. Exercise stress echocardiogram done 11/06/2023 with exercise 6 minutes, report of mild chest tightness, no EKG or echo evidence of ischemia. Her EKGs have not shown any signs of ischemia. Today she reports that her chest discomfort precedes her heart palpitations. She also has issues with fibromyalgia which may be contributing to precordial chest pain. Test results reviewed with her again. Offered reassurance. (6) Hypertension: Code(s): I10 - Essential (primary) hypertension Category: Medical Qualifiers: Hypertension type: essential hypertension Qualified Code(s): I10 - Essential (primary) hypertension Plan: Mild elevation today. No med changes made at this time. Plan Time spent on chart review, documentation, interview and assessment Orders: Orders AMB EKG-In Office Today R00.2 - Palpitations CT angio head neck Today G45.3 - Amaurosis fugax Medications: New prednisone 20 mg orally one tablet this evening and one tablet tomorrow am; 2 tabs 0RF premedication - contast allergy diphenhydramine HCl (Benadryl Allergy) 25 mg orally one tablet this evening and one tablet tomorrow am; 2 tabs 0RF Premedication - contrast allergy Coding Level of Care Code Est Pt Level 4 (26554) Complex EM visit Add On G2211 Diagnoses Alteration in vision H54.7 AF (amaurosis fugax) G45.3 History of TIA (transient ischemic attack) Z86.73 Palpitations R00.2 Precordial chest pain R07.2 Essential hypertension I10 Hypertension type: essential hypertension CPT Codes EKG - CPT: 23490-[id number], Complete ([id number]) Time Spent (min) 36
[2024-02-18 14:32] VITALS: BP 134/90; PULSE 76; BMI 38.0
== END 2024-02-18 15:29 | disposition home or self-care (01) ==
PROVIDERS: PCP Internal Medicine; Visit Provider Nurse Practitioner Family
DX: G45.3 Amaurosis fugax (principal); Z86.73 Personal history of transient ischemic attack (TIA), and cerebral infarction without residual deficits; R00.2 Palpitations; R07.2 Precordial pain; I10 Essential (primary) hypertension
CPT/HCPCS: 93010; 99214; G2211

== ENCOUNTER → 2024-02-18 14:31 | Outpatient (BNVA) | payer OTHER, SELFPAY | PROVIDERS: PCP Internal Medicine; Visit Provider Nurse Practitioner Family | DX: H54.7 Unspecified visual loss (principal); G45.3 Amaurosis fugax; R00.2 Palpitations; R07.2 Precordial pain; I10 Essential (primary) hypertension; Z86.73 Personal history of transient ischemic attack (TIA), and cerebral infarction without residual deficits | CPT/HCPCS: 93005; 99212 ==

== ENCOUNTER 2024-02-19 13:13 | Outpatient (REF) | payer OTHER, SELFPAY ==
--- NOTE | ~2024-02-19 | CT_ITS ---
EXAMINATION: CTA head and neck with and without contrast CLINICAL INFORMATION: Amaurosis fugax COMPARISON: CT head on 12/11/2023 TECHNIQUE: Test bolus sequences followed by intravenous administration of 70 mL of Omnipaque 350 contrast. Helical imaging was performed in the axial plane from the skull vertex to the thoracic inlet. Delayed postcontrast imaging of the head was also performed. The data was processed at the genetic technologist workstation for generation of MIP sequences. Angled MIPs and volume rendered reformatted images were also generated at an offline 3D workstation. Stenoses are assessed in accordance with NASCET criteria unless otherwise indicated. This CT examination was performed using dose optimization techniques as appropriate, variously including the following: *Automated exposure control *Adjustment of mA and/or kV according to patient size (this includes techniques or standardized protocols for targeted exams where dose is matched to indication/reason for exam; i.e. extremities or head) *Use of iterative reconstruction technique DLP: 2514 mGy-cm FINDINGS: BRAIN: No acute intracranial hemorrhage or infarct. The pinon-white matter differentiation is preserved. No midline shift or hydrocephalus. No acute extra-axial fluid collections. The osseous structures are unremarkable. No orbital pathology. The paranasal sinuses and mastoid air cells are clear. CTA NECK: Common origin of the innominate and left common carotid arteries, normal variant. The innominate and bilateral subclavian arteries are patent. The origins and cervical segments of the common carotid arteries as well as the common carotid artery bifurcations are patent bilaterally. The cervical segments of the internal carotid arteries are also patent bilaterally. The origins and cervical segments of the vertebral arteries are patent bilaterally. No hemodynamically significant stenosis, dissection, or aneurysm. The visualized branches of the external carotid arteries are unremarkable. CTA HEAD: Anterior circulation: The petrous, cavernous, and supraclinoid segments of the internal carotid arteries are patent bilaterally. The major branches of the anterior and middle cerebral arteries as well as anterior communicating artery complex are patent. No large vessel occlusion, saccular aneurysm, or dissection. Posterior circulation: The intracranial vertebral arteries are patent bilaterally. The basilar artery is normal in course and caliber. The posterior cerebral and superior cerebellar arteries arise normally from the basilar summit. No aneurysm. On delayed imaging, the venous structures demonstrate normal contrast opacification. No filling defect. No abnormal intracranial enhancement. Soft tissues: No suspicious neck mass or cervical adenopathy. Lungs: Clear. Bones: No acute osseous abnormality. No lytic or blastic osseous lesions. Degenerative changes of the visualized spine. CT/CT angio head neck IMPRESSION: 1. CT head demonstrates no acute intracranial hemorrhage or edematous infarct. 2. CTA head demonstrates no large vessel occlusion, saccular aneurysm, or dissection. 3. CTA neck demonstrates no hemodynamically significant stenosis, dissection, or aneurysm. Electronically signed by: Samanta Hampton MD 02/19/2024 03:18 PM EVAN [facility]ODRUFF
[2024-02-19] MEDS: iohexoL 350 MG/ML 100 ML INFUS..BTL IV (14:48)
--- NOTE | 2024-02-19 14:54 | HE.PHANOTE ---
RE OMNIPAQ AND IODINATED CONTRAST MEDIA ALLERGY SPOKE TO JC IN CT SCAN. PT WAS PREMEDICATED FOR ALLERGY BY PROVIDER. TOLERATED DOSE WELL. ADMINISTRATION OF UNVERIFIED ORDER WAS VERIFIED TO ALLOW FOR DOCUMENTATION BY NURSING.
[2024-02-22 07:16] LABS: Creatinine POC 0.8 mg/dL (0.5-1.4); GFR POC > 60
== END 2024-02-19 13:14 | disposition home or self-care (01) ==
LOC: HO.CT 13:13
PROVIDERS: PCP Internal Medicine; Visit Provider Nurse Practitioner Family
DX: G45.3 Amaurosis fugax (principal)
CPT/HCPCS: 70496; 70498; 82565; Q9967

== ENCOUNTER 2024-03-03 11:22 | Outpatient (AMB) | payer OTHER, SELFPAY ==
--- NOTE | 2024-03-02 17:32 | A.OFFVIS_ITS ---
Intake Visit Reasons: 7m/US Intake Note: Patient is Present for Follow Up US Urology Medication: Vitamin B6 Antibiotic Allergies: Levofloxacin Blood Thinners: None Livestock Breeder Required: No Accompanied by: Self / Same As Patient Allergies pineapple [PINEAPPLE] Allergy (Severe, Verified 03/03/24 11:42) ANAPHYLAXIS adhesive tape Allergy (Intermediate, Verified 03/03/24 11:42) Blister Iodinated Contrast Media [IV Dye, Iodine Containing] Allergy (Intermediate, Verified 03/03/24 11:42) SOB,RASH levofloxacin [From Levaquin] Allergy (Intermediate, Verified 03/03/24 11:42) swelling/rash oxycodone [From Percocet] Allergy (Intermediate, Verified 03/03/24 11:42) rash/SOB aspirin [ASA] Adverse Reaction (Mild, Verified 03/03/24 11:42) UPSET STOMACH HPI Comments Details: 03/03/24--Gloria is being followed for kidney stones. She had left ESWL on 04/04/2023. LV 05/31/23 --she was referred to Nephrology Renal US 10/22/23--IR RIGHT KIDNEY: No focal parenchymal lesions or hydronephrosis. 1.0 cm lower pole nonobstructive calculus. LEFT KIDNEY: mild lower pole caliectasis versus a parapelvic cyst which appears similar to prior. 7 mm nonobstructing calculus in the mid kidney. Review of chart: 05/31/2023--Gloria is being followed for kidney stones. She had left ESWL on 04/04/2023. She presents for telehealth visit. Video attempted. The patient states she still gets intermittent pain in the left kidney area. She also states her urine appears dark and she thinks it may have blood. The patient is concerned as to her continuing to make kidney stones. She states she is being evaluated for a pancreatic problem. I have discussed recent renal ultrasound and CT scan results. Renal ultrasound 05/14/2023--3 mm left kidney stone, 5mm r ight kidney stone. CT scan 05/10/2023 bilateral punctate stones largest 4 mm right kidney. Plan discussed will start vitamin B6 100 mg daily, refer to nephrology for workup due to kidney stones. In regards to her complains regarding her urine I will have the nurses reach out to her to have her leave a urine specimen at the lab so that I can evaluate this. We will monitor kidneys renal ultrasound in 6 months. 03/07/2023--Gloria is a 52-year-old female who is here for evaluation for kidney stones. The patient states that she has had history of kidney stones and has had prior kidney stone treatments including shockwave lithotripsy. Past Medical history includes asthma, she is followed by Pulmonary, history of thyroid cancer status post thyroid removal, bowel condition. The patient complains of left kidney pain, denies blood in the urine. I have reviewed chart, imagin12/21/22-CTAP--left kidney stones and right punctate kidney stone 02/12/23- Renal US --Left kidney stones 4-5 mm I have discussed diet modification to increase fluids, low sodium and low oxalate diet, diet sheet provided. Discussed Left ESWL--risks to include but not limited to, blood in the urine, bruising to the skin, kidney hematoma, possible need for another procedure if a stone fragment obstructs the ureter while passing, possible need to repeat procedure if stone is not completely fragmented. UA- negative. Plan:Left ESWL. Needs pulmonary clearance prior 05/31/2023--Plan discussed will start vitamin B6 100 mg daily, refer to nephrology for workup due to kidney stones. In regards to her complains regarding her urine I will have the nurses reach out to her to have her leave a urine specimen at the lab so that I can evaluate this. We will monitor kidneys renal ultrasound in 6 months. [facility] Medical History Dysphagia Diarrhea Well woman exam Abnormal finding on EKG Hx of flexible sigmoidoscopy Internal derangement of right shoulder Lump of left breast Lump of right breast Lump of axillary tail of right breast Chronic constipation Rotator cuff impingement syndrome of left shoulder Right forearm pain Colitis Hypertensive urgency Rotator cuff impingement syndrome Lateral epicondylitis of both elbows Fall IBS (irritable bowel syndrome) Abdominal bloating Tendinopathy of left rotator cuff History of TIA (transient ischemic attack) Hypercholesterolemia Vitamin D deficiency Multinodular thyroid Pancreatic cyst Constipation Thyroid nodule Diarrhea Rectal bleeding Esophageal spasm GERD (gastroesophageal reflux disease) Hypertension Asthma Kidney stones History of migraine headaches Fibromyalgia Allergic rhinitis Sciatic nerve pain Ovarian cyst Hypothyroidism Surgical History History of arthroscopic surgery of shoulder Hx of eye surgery History of breast lump/mass excision Hx of hemorrhoidectomy Hx of tubal ligation History of esophagogastroduodenoscopy (EGD) History of colonoscopy (~11/16/19) H/O: hysterectomy History of thyroidectomy (~11/2018) History of kidney surgery Hx of bilateral breast reduction surgery Hx of appendectomy History of cholecystectomy (~2003) H/O lithotripsy Family History Father Family history of high blood pressure History of high cholesterol Mother History of diabetes mellitus Family history of high blood pressure Family history of asthma History of fibromyalgia Liver disease Maternal Grandfather Colon cancer Family/Other Breast cancer Social History Household Members: Spouse Household Members Other:: daughter Housing: Apartment Are you a primary health care aide to a significant other at home: No Do you presently have visiting nurse or other home services: No Alcohol intake: never Patient Tobacco Use Status: Former Tobacco user Tobacco use type: Cigarette Years Smoked: 15 e-Cigarette/Vaping Use: Never Used Second Hand Smoke Exposure: Yes Substance Use Type: Marijuana service: No Current occupational status: disabled Current occupation: right handed Sexual orientation: Straight/Heterosexual Gender identity: Female Cognitive needs: No Hearing needs: No Vision needs: Yes Female Reproductive History Menstrual Age of Menarche: 10 Results AMB Urinalysis, Automated UA Leukoctes 0 [place]/uL Last Edit by YANIRA Steen on 03/03/24 11:48 UA Nitrite Negative Last Edit by YANIRA Steen on 03/03/24 11:48 UA Urobilinogen 0.2 mg/dL Last Edit by YANIRA Steen on 03/03/24 11:4 8 UA Protein 15 mg/dL Last Edit by YANIRA Steen on 03/03/24 11:48 UA pH 6.0 Last Edit by YANIRA Steen on 03/03/24 11:48 UA Blood 0 [place]/uL Last Edit by YANIRA Steen on 03/03/24 11:48 UA Specific [place] 1.020 Last Edit by YANIRA Steen on 03/03/24 11: 48 UA Ketone Negative Last Edit by YANIRA Steen on 03/03/24 11:48 UA Bilirubin 0 mg/dL Last Edit by YANIRA Steen on 03/03/24 11:48 UA Glucose 0 mg/dL Last Edit by YANIRA Steen on 03/03/24 11:48 Results Reviewed Results Reviewed: Date of Service: 10/22/23 US BILATERAL KIDNEYS CLINICAL INFORMATION: Calculus of kidney. COMPARISON: Renal ultrasound 05/14/2023 TECHNIQUE: Real-time imaging of the kidneys. FINDINGS: RIGHT KIDNEY: 12.9 x 5.8 x 7.1 cm (SAG x AP x TRV). The kidney is normal in size, contour, and echogenicity. Renal cortical thickness is normal. No focal parenchymal lesions or hydronephrosis. 1.0 cm lower pole nonobstructive calculus. LEFT KIDNEY: 12.2 x 6.1 x 5.0 cm (SAG x AP x TRV). The kidney is normal in size, contour, and echogenicity. Renal cortical thickness is normal. There is mild lower pole caliectasis versus a parapelvic cyst which appears similar to prior. 7 mm nonobstructing calculus in the mid kidney. IMPRESSION: Nonobstructing bilateral renal calculi. Mild left lower pole caliectasis versus a parapelvic cyst appears similar to prior. Date of Service: 05/14/23 EXAMINATION: US RETROPERITONEAL LIMITED (RENAL ONLY) CLINICAL INFORMATION: Calculus of kidney. COMPARISON: CT abdomen and pelvis 05/10/2023. X-ray KUB 04/04/2023. Renal ultrasound 02/12/2023 and 08/08/2020. MRI abdomen 02/14/2018. TECHNIQUE: Real-time imaging of the kidneys. FINDINGS: RIGHT KIDNEY: 12.6 x 4.8 x 5.7 cm (SAG x AP x TRV). The kidney is normal in size, contour, and echogenicity. Renal cortical thickness is normal. No focal parenchymal lesions. Nonobstructing 5 mm stone. LEFT KIDNEY: 11.7 x 5.7 x 4.7 cm (SAG x AP x TRV). The kidney is normal in size, contour, and echogenicity. Renal cortical thickness is normal. No focal parenchymal lesions. Mild hydronephrosis. No proximal obstructing stone. Nonobstructing 3 mm stone is noted. IMPRESSION: * Mild left hydronephrosis. No proximal obstructing stone. * Bilateral nonobstructing nephrolithiasis. Date of Service: 05/10/23 EXAMINATION: CT ABDOMEN AND PELVIS WITHOUT CONTRAST CLINICAL INFORMATION: Abdominal pain and distention. COMPARISON: None available. TECHNIQUE: Multidetector volumetric imaging was performed from the superior aspect of the liver through the pubic symphysis. Sagittal and coronal reformatted images were obtained on the technologist's workstation. This CT examination was performed using dose optimization techniques as appropriate, variously including the following: *Automated exposure control *Adjustment of mA and/or kV according to patient size (this includes techniques or standardized protocols for targeted exams where dose is matched to indication/reason for exam; i.e. extremities or head) *Use of iterative reconstruction technique DLP: 862 mGy-cm FINDINGS: LUNG BASES: The visualized lung bases are unremarkable. LIVER, GALLBLADDER, AND BILIARY TREE: The liver is normal in size, shape, and attenuation. No focal hepatic lesion or biliary ductal dilatation is present. There has been a prior cholecystectomy. PANCREAS: Unremarkable. SPLEEN: Unremarkable. ADRENAL GLANDS: Unremarkable. KIDNEYS AND URETERS: The kidneys are normal in size, shape, and attenuation. There are scattered bilateral renal calculi measuring up to 5 mm lower pole right kidney. There is no hydronephrosis. BLADDER: Unremarkable. GASTROINTESTINAL TRACT: There is a small hiatal hernia. The large and small bowel are within normal limits. The appendix is not seen. ABDOMINAL WALL: No significant hernia is appreciated. LYMPH NODES: Normal. VASCULAR: Unremarkable. PELVIC VISCERA: Unremarkable. OSSEOUS STRUCTURES: There is diffuse thoracolumbar disc degenerative change with prominent posterior osteophytes of the lower thoracic spine with spinal canal narrowing at multiple levels.. IMPRESSION: 1. No acute intra-abdominal abnormality. 2. Bilateral nonobstructing renal calculi. 3. Diffuse thoracolumbar disc degenerative change with prominent posterior osteophytes of the lower thoracic spine with spinal canal narrowing at multiple levels. Assessment & Plan Assessment & Plan Orders: Orders AMB Urinalysis Automated Today Z13.9 - Encounter for screening, unspecified Coding
== END 2024-03-03 12:14 | disposition home or self-care (01) ==
PROVIDERS: PCP Internal Medicine; Visit Provider Urology
DX: Z13.9 Encounter for screening, unspecified (principal)

== ENCOUNTER → 2024-03-03 11:22 | Outpatient (BNVA) | payer OTHER, SELFPAY | PROVIDERS: PCP Internal Medicine; Visit Provider Urology | DX: N20.0 Calculus of kidney (principal) | CPT/HCPCS: 81003; 99212 ==

== ENCOUNTER → 2024-03-10 10:03 | Outpatient (REF) | payer OTHER, SELFPAY | LOC: HO.CARD 10:03 | PROVIDERS: PCP Internal Medicine; Visit Provider Nurse Practitioner Family | DX: R00.2 Palpitations (principal); H54.7 Unspecified visual loss | CPT/HCPCS: 93270 ==

== ENCOUNTER → 2024-03-10 10:06 | Outpatient (BNV) | payer OTHER, SELFPAY | PROVIDERS: PCP Internal Medicine; Visit Provider Internal Medicine Cardiovascular Disease | DX: R00.0 Tachycardia, unspecified (principal) | CPT/HCPCS: 93272 ==

== ENCOUNTER 2024-03-11 10:26 | Outpatient (REF) | payer OTHER, SELFPAY ==
--- NOTE | ~2024-03-11 | XR_ITS ---
CLINICAL HISTORY: S99.922A - Unspecified injury of left foot, initial encounter 3 view left foot Comparison: None Findings: No fractures or dislocations. Posterior and plantar calcaneal enthesophytes are present. No radiopaque foreign body. IMPRESSION: 1. No acute osseous abnormality is identified. This document has been electronically signed by: Raina Dias on 03/19/2024 09:52:10
[2024-03-11 12:05] LABS: Hematocrit 43.1 % (37.0-47.0); Hemoglobin 14.9 g/dl (12.0-16.0); Mean Corpuscular HGB Conc 34.6 g/dl (31.0-35.0); Mean Corpuscular Hemoglobin 31.1 pg (27.0-33.0); Platelet Count 266 X10*3/uL (160-400); Red Blood Count 4.79 X10*6/uL (4.20-5.50); Red Cell Distribution Width 13.3 % (11.0-16.0); White Blood Count 9.7 X10*3/uL (4.8-10.8)
[2024-03-11 12:43] LABS: Anion Gap 14 (12-20); Blood Urea Nitrogen 12 mg/dL (9-16); Carbon Dioxide 26 mmol/L (22-29); Chloride 104 mmol/L (96-108); Estimated Glomerular Filt Rate > 60; Glucose Random 112 mg/dL (60-115); Iron 78 mcg/dL (30-160); Percent Iron Saturation 27 % (15-50); Potassium 3.7 mmol/L (3.3-5.1); Sodium 140 mmol/L (135-145); Total Iron Binding Capacity 292 mcg/dL (228-428); Unsaturated Iron Binding 214 ug/dL
[2024-03-11 12:58] LABS: TSH reflex Free T4 20.67 uIU/mL (0.32-4.0)
[2024-03-11 14:53] LABS: Free T4 (Free Thyroxine) 0.82 ng/dL (0.71-1.85)
== END 2024-03-11 10:27 | disposition home or self-care (01) ==
LOC: HO.XRAY 10:26
PROVIDERS: PCP Internal Medicine; Visit Provider Physician Assistant
DX: S99.922A Unspecified injury of left foot, initial encounter (principal); R23.3 Spontaneous ecchymoses; I10 Essential (primary) hypertension; M79.7 Fibromyalgia; F33.1 Major depressive disorder, recurrent, moderate; E89.0 Postprocedural hypothyroidism; D50.9 Iron deficiency anemia, unspecified; X58.XXXA Exposure to other specified factors, initial encounter; Y93.9 Activity, unspecified; Y92.9 Unspecified place or not applicable; Y99.9 Unspecified external cause status
CPT/HCPCS: 36415; 73620; 80048; 83540; 84439; 84443; 85027; 90471; 96127; 99212

== ENCOUNTER 2024-03-11 10:26 | Outpatient (AMB) | payer OTHER, SELFPAY ==
--- NOTE | 2024-03-11 10:27 | MHC.PC.OV ---
Vital Signs 03/11/24 10:46 Height 5 ft 5 in Weight 210 lb BMI 34.9 BP 178/120 H Blood Pressure Location Lt brachial Position Sitting Pulse 100 Pulse Source Palpation Temp 97.1 F Temp Source Temporal Artery Scan Intake Visit Reasons: 4 week f/u Industrial Hygienist Required: No Accompanied by: Self / Same As Patient Allergies pineapple [PINEAPPLE] Allergy (Severe, Verified 03/11/24 10:47) ANAPHYLAXIS adhesive tape Allergy (Intermediate, Verified 03/11/24 10:47) Blister Iodinated Contrast Media [IV Dye, Iodine Containing] Allergy (Intermediate, Verified 03/11/24 10:47) SOB,RASH levofloxacin [From Levaquin] Allergy (Intermediate, Verified 03/11/24 10:47) swelling/rash oxycodone [From Percocet] Allergy (Intermediate, Verified 03/11/24 10:47) rash/SOB aspirin [ASA] Adverse Reaction (Mild, Verified 03/11/24 10:47) UPSET STOMACH Tobacco use date assessed: 03/11/24 Dental Screening Dental Screen Date: 03/11/24 Did you have a dental visit in the last 12 months?: Yes Did you have a dental problem in the last 6 months where you did not have access to dental care?: No Was dental information given to patient?: Patient has dentist HPI 4 week f/u HPI Details The patient is a 53-year-old female presenting with chronic pain, depression, and persistent ear issues. She has a history of fibromyalgia, which has significantly worsened over the past three years, coinciding with the of her niece and mother, leading to severe depression and anxiety. The fibromyalgia results in chronic pain throughout her body, including headaches and muscle pain, and she reports multiple unsuccessful medication trials, including gabapentin and other unspecified treatments, without sustained relief. The patient's depression, compounded by considerable personal loss, exacerbates her pain and disrupts her sleep. Concern--> reports having easy bruisability lately. She does show me a bruise over her right foot and a few small bruises over her hand. She does have thyroid disease and has not been taking her thyroid medication over the last few weeks. Will recheck TSH. She also reports injuring her right great toe recently working in her basement. She does have some decreased range of motion and ecchymosis of the right great toe on physical exam today She has a history of hypertension, which remains poorly controlled despite current medications including amlodipine, lisinopril, and metoprolol. This may be exacerbated by her chronic pain. She also reports a family history of cardiovascular diseases, including her mother's from hypertension-related complications and her father's pacemaker implantation. We have increased her lisinopril to 30 mg though seems blood pressure still remain high. PLAN: Will start maximal dose of lisinopril and add on hydrochlorothiazide for better blood pressure control. Is followed by craft demonstrator and currently has a 30 day Holter monitor on to evaluate for arrhythmia. [facility] Medical History Dysphagia Diarrhea Well woman exam Abnormal finding on EKG Hx of flexible sigmoidoscopy Internal derangement of right shoulder Lump of left breast Lump of right breast Lump of axillary tail of right breast Chronic constipation Rotator cuff impingement syndrome of left shoulder Right forearm pain Colitis Hypertensive urgency Rotator cuff impingement syndrome Lateral epicondylitis of both elbows Fall IBS (irritable bowel syndrome) Abdominal bloating Tendinopathy of left rotator cuff History of TIA (transient ischemic attack) Hypercholesterolemia Vitamin D deficiency Multinodular thyroid Pancreatic cyst Constipation Thyroid nodule Diarrhea Rectal bleeding Esophageal spasm GERD (gastroesophageal reflux disease) Hypertension Asthma Kidney stones History of migraine headaches Fibromyalgia Allergic rhinitis Sciatic nerve pain Ovarian cyst Hypothyroidism Surgical History History of arthroscopic surgery of shoulder Hx of eye surgery History of breast lump/mass excision Hx of hemorrhoidectomy Hx of tubal ligation History of esophagogastroduodenoscopy (EGD) History of colonoscopy (~11/16/19) H/O: hysterectomy History of thyroidectomy (~11/2018) History of kidney surgery Hx of bilateral breast reduction surgery Hx of appendectomy History of cholecystectomy (~2003) H/O lithotripsy Family History Father Family history of high blood pressure History of high cholesterol Mother History of diabetes mellitus Family history of high blood pressure Family history of asthma History of fibromyalgia Liver disease Maternal Grandfather Colon cancer Family/Other Breast cancer Social History Household Members: Spouse Household Members Other:: daughter Housing: Apartment Are you a primary urgent care physician assistant to a significant other at home: No Do you presently have visiting nurse or other home services: No Alcohol intake: never Patient Tobacco Use Status: Former Tobacco user Tobacco use type: Cigarette Years Smoked: 15 e-Cigarette/Vaping Use: Never Used Second Hand Smoke Exposure: Yes Substance Use Type: Marijuana service: No Current occupational status: disabled Current occupation: right handed Sexual orientation: Straight/Heterosexual Gender identity: Female Cognitive needs: No Hearing needs: No Vision needs: Yes Female Reproductive History Menstrual Age of Menarche: 10 Questionnaire PHQ-9 Over the last 2 weeks, how often have you been bothered by any of the following problems? 1. Little interest or pleasure in doing things: nearly every day 2. Feeling down, depressed, or hopeless: nearly every day 3. Trouble falling or staying asleep, or sleeping too much: nearly every day 4. Feeling tired or having little energy: nearly every day 5. Poor appetite or overeating: not at all 6. Feeling bad about yourself - or that you are a failure or have let yourself or your family down: nearly every day 7. Trouble concentrating on things, such as reading the newspaper or watching television: nearly every day 8. Moving or speaking so slowly that other people could have noticed. Or the opposite - being so fidgety or restless that you have been moving around a lot more than usual: not at all 9. Thoughts that you would be better off or of hurting yourself in some way: not at all Total score: 18 Depression Screening Interpretation: Positive Depression Screening Follow-up: Existing condition and Community Mental Health Worker F/U Depression Screening Done: Yes 48239 - PHQ-9 Billing: Yes Source: Developed by Drs. Rainer Caldwell, Ashanti Malone, Hank Dewitt and colleagues, with an educational mayco from [employer]. Thrive Questionnaire Date Thrive assessed: 03/11/24 I am a: Patient What is your living situation today?: I have a steady place to live Within the past 12 months, did the food you bought not last and you didn't have the money to get more?: Never true Within the past 12 months, did you worry whether your food would run out before you got money to buy more?: Never true Do you have trouble paying for medicines?: No Do you have trouble getting transportation to medical appointments?: No Do you have trouble paying your heating and electricity bill?: No Do you have trouble taking care of your child, family member or friend?: No Do you have trouble with day-to-day activities such as bathing, preparing meals, shopping, managing finances, etc.?: No Are you currently unemployed and looking for a job?: No Are you interested in more education?: No Please select the resources that you would like help with: None Currently or been in a relationship where the following occur: No concerns reported THRIVE Score: 0 AUDIT C Alcohol Use Questionnaire (AUDIT-C) 1. How often do you have a drink containing alcohol?: Never 3. How often do you have six or more drinks on one occasion?: Never Total Score: 0 Score Reviewed/Action Taken: No INDRA-7 AMB Questionnaire INDRA-7 Date INDRA - 7 assessed: 03/11/24 Feeling nervous, anxious, or on edge: 0 = Not at all Not being able to stop or control worryin = Not at all Worrying too much about different things: 0 = Not at all Trouble relaxin = Not at all Being so restless that it is hard to sit still: 0 = Not at all Becoming easily annoyed or irritable: 0 = Not at all Feeling afraid as if something awful might happen: 0 = Not at all Total INDRA-7 score (0-4 normal; 5-9 mild; 10-14 moderate; 15-21 severe): 0 Source: Developed by Drs. Rainer Caldwell, Ashanti Malone, Hank Dewitt and colleagues, with an educational mayco from [employer]. INDRA-7 Assessment Billing INDRA-7 Assessment Tool: INDRA-7 Assessment 19628 Physical exam (Primary Care) Vital Signs: Last Vital Signs Temp 97.1 F 03/11/24 10:46 Pulse 100 03/11/24 10:46 BP 178/120 H 03/11/24 10:46 BMI result Body Mass Index 34.9 Tobacco/Smoking Status: Tobacco use Status Tobacco use date assessed 03/11/24 03/11/24 10:49 Patient Tobacco Use Status Former Tobacco user 03/11/24 10:27 Tobacco use type Cigarette 03/11/24 10:27 e-Cigarette/Vaping Use Never Used 03/11/24 10:27 PHQ-9: PHQ-9 Score PHQ-9: Total score 18 03/12/24 10:52 Depression Screening Interpretation: Positive Depression Screening Follow-up: Existing condition and Community Mental Health Worker F/U Thrive Assessment: Date of Thrive Assessment Date Thrive assessed 03/11/24 03/11/24 10:49 Currently or been in a relationship where the following occur: No concerns reported Office Procedures Flu Questionnaire Does the patient have a severe egg allergy?: No Immunizations Fluarix Triv [id number] (PF) 45 mcg (15 mcg x 3)/0.5 mL IM syringe Performing Provider: Donis Barron PA-C [facility] Documented (not given) by: EMY Martinez on 03/11/24 10:51 Reason Not Given: Patient Refused Coding Level of Care Code Est Pt Level 4 (19414) Diagnoses Injury of left great toe, initial encounter S99.922A Encounter type: initial encounter Easy bruisability R23.3 Essential hypertension I10 Hypertension type: essential hypertension Fibromyalgia M79.7 MDD (major depressive disorder), recurrent episode, moderate F33.1 Additional Codes INDRA-7 Assessment Billing - INDRA-7 Assessment Tool: INDRA-7 Assessment 54715 ([id number]) PHQ-9 - 26151 - PHQ-9 Billing: Yes ([id number]) Assessment & Plan Assessment & Plan (1) Injury of left great toe: Code(s): S99.922A - Unspecified injury of left foot, initial encounter Category: Medical Qualifiers: Encounter type: initial encounter Qualified Code(s): S99.922A - Unspecified injury of left foot, initial encounter Plan: Will get x-ray to evaluate for a broken toe. (2) Easy bruisability: Code(s): R23.3 - Spontaneous ecchymoses Category: Medical Plan: Unclear etiology to patient's easy bruisability though could be related to her thyroid disease. Will recheck her TSH. (3) Hypertension: Code(s): I10 - Essential (primary) hypertension Category: Medical Qualifiers: Hypertension type: essential hypertension Qualified Code(s): I10 - Essential (primary) hypertension Plan: Patient's blood pressure elevated today in office. Seems to been elevated at previous MD visits. Will increase her lisinopril dose for better blood pressure control. Blood pressure elevations likely secondary to her chronic pain and anxiety. Will work on these issues as well. (4) Fibromyalgia: Code(s): M79.7 - Fibromyalgia Category: Medical Plan: As per HPI patient continues to have chronic pain in the setting of uncontrolled anxiety and depression. Will work on her mental health by trying to get her into cognitive behavioral therapy. She seems to be going through grief at this moment as she had mentioned to family deaths recently. We have trialed tizanidine for her pain though has not been effective. She is willing to try alternative muscle relaxer to help her pain. (5) MDD (major depressive disorder), recurrent episode, moderate: Code(s): F33.1 - Major depressive disorder, recurrent, moderate Category: Medical Plan: As per HPI patient's seems to be suffering with depression. She is willing to speak with a mental health therapist and eventually a psychiatrist in near future. Orders: Orders Influenza [id number] Immunization 03/11/24 Z23 - Encounter for immunization TSH reflex Free T4 03/11/24 E89.0 - Postprocedural hypothyroidism XR foot LT 2V 03/11/24 S99.922A - Unspecified injury of left foot, initial encounter Complete Blood Count no Diff 03/11/24 E89.0 - Postprocedural hypothyroidism IRON PROFILE 03/11/24 D50.9 - Iron deficiency anemia, unspecified, E89.0 - Postprocedural hypothyroidism Basic Metabolic Panel 03/11/24 E89.0 - Postprocedural hypothyroidism Medications: New baclofen 10 mg PO BID 20 tabs 0RF 10 days M79.7 - Fibromyalgia hydrochlorothiazide 12.5 mg PO DAILY 90 tabs 1RF 90 days I10 - Essential (primary) hypertension lisinopril 40 mg PO DAILY 90 tabs 1RF 90 days I10 - Essential (primary) hypertension Discontinued lisinopril Discontinued Reason: Doctor's Order 30 mg PO DAILY 30 days 30 tabs 2RF I10 - Essential (primary) hypertension tizanidine Discontinued Reason: Doctor's Order 2 mg PO BID 30 days PRN 60 tabs 3RF muscle spasticity M79.7 - Fibromyalgia
[2024-03-11 10:46] VITALS: BP 178/120; PULSE 100; TEMP 36.2; BMI 34.9
== END 2024-03-11 11:35 | disposition home or self-care (01) ==
PROVIDERS: PCP Physician Assistant; Visit Provider Physician Assistant
DX: S99.922A Unspecified injury of left foot, initial encounter (principal); R23.3 Spontaneous ecchymoses; F33.1 Major depressive disorder, recurrent, moderate; I10 Essential (primary) hypertension; M79.7 Fibromyalgia

== ENCOUNTER → 2024-03-11 11:58 | Outpatient (BNV) | payer OTHER, SELFPAY | PROVIDERS: PCP Internal Medicine; Visit Provider Radiology Vascular & Interventional Radiology | DX: S99.922A Unspecified injury of left foot, initial encounter (principal) | CPT/HCPCS: 73620 ==

== ENCOUNTER 2024-04-17 07:31 | Outpatient (AMB) | payer OTHER, SELFPAY ==
--- NOTE | 2024-04-17 07:42 | A.OFFVIS_ITS ---
Vital Signs 04/17/24 07:49 Height 5 ft 5 in Weight 224 lb 13.944 oz BMI 37.4 BP 171/107 H Blood Pressure Location Lt brachial Position Sitting Pulse 80 Intake Visit Reasons: 3 mo f/u GERD, abd pain and diarrhea Intake Note: Patient 3 mo f/u GERD, abd pain and diarrhea. Patient cc: nauseas with vomiting, abdominal pain with bloating and headaches, acid reflex with burning sensation, between constipation with some accident on her self with diarrhea and some swallowing difficulty. 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 Accompanied by: Self / Same As Patient Allergies pineapple (PINEAPPLE) Allergy (Severe, Verified 06/04/25 11:37) ANAPHYLAXIS adhesive tape Allergy (Intermediate, Verified 06/04/25 11:37) Blister Iodinated Contrast Media (IV Dye, Iodine Containing) Allergy (Intermediate, Verified 06/04/25 11:37) SOB,RASH levofloxacin (From Levaquin) Allergy (Intermediate, Verified 06/04/25 11:37) swelling/rash oxycodone (From Percocet) Allergy (Intermediate, Verified 06/04/25 11:37) rash/SOB aspirin (ASA) Adverse Reaction (Mild, Verified 06/04/25 11:37) UPSET STOMACH Medication List - Last Reconciled 04/17/24 by Sky Horton MD amlodipine 10 mg PO DAILY atorvastatin (Lipitor) 10 mg PO DAILY baclofen 10 mg PO BID 10 days cholecalciferol (vitamin D3) (Vitamin D3) 50 mcg PO DAILY diphenhydramine HCl (Benadryl Allergy) 25 mg orally one tablet this evening and one tablet tomorrow am; docusate sodium 100 mg PO BID famotidine 20 mg PO BEDTIME PRN tsibhneaocz-orioudpoi-uxxxecbe 200-62.5-25 mcg (Trelegy Ellipta) 1 inh inhalat ion DAILY hydrochlorothiazide 12.5 mg PO DAILY 90 days ipratropium bromide 2 sprays intranasal TID 30 days ipratropium-albuterol 0.5 mg-3 mg(2.5 mg base)/3 mL 3 mL inhalation Q4-6H PRN lisinopril 40 mg PO DAILY 90 days lisinopril 40 mg PO DAILY 90 days lorazepam 1 mg PO ONCE PRN metoprolol tartrate 100 mg PO BID 90 days mupirocin 2% 1 appl topical BID 30 days omalizumab (Xolair) 300 mg (2 mL) subcut Q2W omeprazole 40 mg (2 x 20 mg) PO DAILY pyridoxine (vitamin B6) 100 mg PO DAILY rabeprazole 20 mg PO DAILY 90 days Tirosint (levothyroxine) 175 mcg PO DAILY 90 days NS topiramate 50 mg PO BID Ventolin HFA 90 mcg/actuation (albuterol sulfate) 2 puffs inhalation Q4-6H PRN 30 days NS HPI HPI 3 mo f/u GERD, abd pain and diarrhea: Details: GI Clinic visit for this 53-year-old female for evaluation of diarrhea and abdominal bloating Pt had severe watery diarrhea which lasted for several weeks after her thyroid surgery. Pt was seen at [facility] ED on 12/18/22 with worsening abd pain and labs showed an elevated lipase of 118 TODAY'S VISIT: Patient cc: nauseas with vomiting, abdominal pain with bloating and headaches, acid reflex with burning sensation, between constipation with some accident on her self with diarrhea and some swallowing difficulty. Having BROWNE - gets pounding HAs when she has axid reflux. Had a 30 day heart monitor. Lost her paternal aunt a month ago - (had a stroke and a heart attack last year and was bedridden. Also had stomach issues and a feeding tube) Pt is not feeling well for the past year. Has bad diarrhea 4 - 5 times - watery stool followed by soft stool and then watery stool again. Takes Gatorade and pedialyte. Had abd pain after she had ketchup. Has nasty burps and whole mouth barajas when they come up. Taking Omeprazole twice a day for GERD Epigastric pain radiating to LUQ and back. PAST EGD and colon results were reviewed. Not feeling good - stomach has been hurting more and more. Continues to have diarrhea 5-6 times a day - has diarrhea when she goes to pee Every time she eats, she has to go to the bathroom Noted difficulty swallowing while drinking a smoothie. Poop is sarah - coffee grain material in the poop on toilet paper - green Had a lot of pain that day. Has gained weight - attributes to thyroid issues. Has to see the nurse every 2 weeks to have her blood pressure checked. PAST VISITS: Not good, stomach hurts, intermittent watery diarrhea which is yellow in color Watery diarrhea for a few days and then constipation Has diarrhea 4 days per week (5 times a day) and constipation for the rest of the week Has not had a normal BM in the past several months Takes soups when she has the diarrhea and avoids taking solids. Continues to have constant nausea, bloating and burping. PAST VISITS: Denies any change in symptoms Constantly burping associated with regurgitation of liquids and feels like she is drowning Taking Omeprazole and is working a little bit. Hardly eat since has nausea and abdominal pain when she eats Horrible nausea Has diarrhea alternating with constipation. Denies having a normal BM in years Unable to sleep at night due to regurgitation. Sleeping side ways with the pillow elevated. Patient cc: abdominal pain/bloating, GERD with burning sensation,between diarrhea and constipation, water is coming with burps and she can not breath when that happened to her, also she is not eating well due the abdominal pain/loosing weight. Nauseas and Vomit, acid reflex with burning sensation and some swallowing p roblems Loosing weight too fast, loosing hair, cant keep anything in her stomach. Unable to eat without vomiting or diarrhea. Constant abdominal pain. Has diarrhea alternating with constipation. No BM x 3 days Advised GFD. Pt states she tried a GFD in the past ? for 1-2 years and willing to try it again LABS IN Molecular Imaging: 11/15 REVIEWED. ? Stool studies were negative for C Diff, calprotectin was normal and stool fat was elevated ? Stool electrolytes could not be performed since stool was formed ? Serum gastrin was elevated and normal on repeat testing after holding Omeprazole. ?IMAGING STUDIES: 03/16/22 BARIUM SWALLOW SHOWED: -Spontaneous gastroesophageal reflux to the level mid thoracicesophagus. -Bridging anterior osteophytes mid to lower cervical spine. Swellingfunction unremarkable. -No stricture, ulceration, or hiatal hernia. 01/[address] SCAN SHOWED:? 2 mm small radiopaque calculi nonobstructive lower pole right kidney? and mid pole left kidney. There are extrarenal kidney pelvises seen.? Mild constipation without obstruction. No evidence of panniculitis or diverticulitis. Small hiatal hernia.? Fatty lesion anterior body/tail of pancreas junction is stable. 02/15/2018:? ABD MRI SHOWED:Status post cholecystectomy.? No MRI evidence of intra or extrahepatic biliary obstruction, filling defects or stones.Pancreatic metrics incised are normal, no pancreatic mass found ENDOSCOPIC STUDIES: 11/22/23 EGD AND COLON SHOWED: Endoscopy Findings: Esophagus: GE junction at 32 cm, diaphragm hiatus at 35 cm, consistent with 3 cm sliding hiatal hernia, erosive esophagitis noted, LA grade A --esophageal inlet patch noted Stomach: Patchy erythema. Biopsies were obtained. Grade 2 flap valve on retroflexed examination of the cardia. Duodenum: Normal bulb and descending duodenum, bx taken Colonoscopy Findings: internal hemorrhoids with skin tags Plan: Await Pathology results Repeat Colonoscopy in 1 year due to areas of fair prep or earlier if clinically indicated High fiber diet leaflet avoid straining at stool, epsom salts and sitz bath, anusol supps or cream reflux precautions if H pylori pos then treat amyloids, IGG4 staining and mast cells was negative 12/22/22 EGD SHOWED: Endoscopy Findings:LARYNX: Changes suggestive of LPRD ESOPHAGUS: Hiatal hernia STOMACH: Diffuse gastritis DUODENUM: Two 2-3 mm superficial ulcers in the bulb and normal descending duodenum. Plan: Above findings were reviewed with the patient and Hiatal Hernia and PUD handouts were given in the discharge area [facility] Medical History Migraines Dysphagia Hx of flexible sigmoidoscopy Internal derangement of right shoulder Lump of left breast Chronic constipation Rotator cuff impingement syndrome of left shoulder Colitis Rotator cuff impingement syndrome Lateral epicondylitis of both elbows IBS (irritable bowel syndrome) Tendinopathy of left rotator cuff Multinodular thyroid Thyroid nodule GERD (gastroesophageal reflux disease) Allergic rhinitis Sciatic nerve pain Ovarian cyst Surgical History History of ureteroscopy Hx of cystoscopy History of carpal tunnel release (09/25/24) History of arthroscopic surgery of shoulder Hx of eye surgery History of breast lump/mass excision Hx of hemorrhoidectomy Hx of tubal ligation History of esophagogastroduodenoscopy (EGD) History of colonoscopy (~11/16/19) H/O: hysterectomy History of thyroidectomy (~11/2018) Hx of bilateral breast reduction surgery Hx of appendectomy History of cholecystectomy (~2003) H/O lithotripsy (04/30/24) Family History Father Family history of high blood pressure History of high cholesterol Mother History of diabetes mellitus Family history of high blood pressure Family history of asthma History of fibromyalgia Liver disease Maternal Grandfather Colon cancer Family/Other Breast cancer Maternal Aunt Breast cancer Family/Other Breast cancer Social History Household Members: Spouse Household Members Other:: daughter Housing: Apartment Are you a primary child adolescent care to a significant other at home: No Do you presently have visiting nurse or other home services: No Alcohol intake: never Patient Tobacco Use Status: Former Tobacco user Tobacco use type: Cigarette Years Smoked: 15 e-Cigarette/Vaping Use: Never Used Second Hand Smoke Exposure: Yes Substance Use Type: Marijuana service: No Current occupational status: disabled Current occupation: right handed Sexual orientation: Straight/Heterosexual Gender identity: Female Cognitive needs: No Hearing needs: No Vision needs: Yes Female Reproductive History Menstrual Age of Menarche: 10 Review of Systems Const All systems reviewed & are unremarkable except as noted in HPI and below Physical Exam Vital Signs: Last Vital Signs Pulse 80 04/17/24 07:49 BP 171/107 H 04/17/24 07:49 BMI result Body Mass Index 37.4 Const General: healthy appearing and no acute distress Nutritional Appearance: obese Orientation/consciousness: patient oriented x3 Limitations: no limitations HEENT Head: Yes normal to inspection Ears: hearing grossly normal bilaterally Eyes Sclerae: sclerae normal Pupils: Equal, round and reactive pupils present Neck Neck: Yes normal visual inspection Chest Chest palpation & inspection: normal inspection of the chest Resp Effort & Inspection: normal respiratory effort Auscultation: clear to auscultation bilaterally Cardio Palpation: normal PMI Rate: regular rate Rhythm: regular rhythm Heart sounds: S1 normal heart sound present, S2 normal heart sound present and no murmurs GI Palpation (GI): Soft to palpation, Tenderness to palpation present (GI) (moderate epigastric tenderness without rebound) and No hepatosplenomegaly present Auscultation: normal bowel sounds Rectal Exam - Female: deferred Skin General skin exam: no rashes or lesions noted Neuro General: patient oriented x3, gait normal and moves all extremities Cranial nerves: Yes Equal, round and reactive pupils present Psych Appearance: grossly normal Mental Status: mental status grossly normal Assessment & Plan Assessment & Plan (1) Small intestinal bacterial overgrowth: Code(s): K63.8219 - Small intestinal bacterial overgrowth, unspecified Category: Medical (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: Code(s): R76.8 - Other specified abnormal immunological findings in serum Category: Medical (3) Chronic diarrhea: Code(s): K52.9 - Noninfective gastroenteritis and colitis, unspecified Category: Medical (4) Elevated lipase: Code(s): R74.8 - Abnormal levels of other serum enzymes Category: Medical (5) Abdominal pain: Code(s): R10.9 - Unspecified abdominal pain Category: Medical (6) Intermittent constipation: Code(s): K59.09 - Other constipation Category: Medical (7) GERD (gastroesophageal reflux disease): Code(s): K21.9 - Gastro-esophageal reflux disease without esophagitis Category: Medical (8) Irritable bowel syndrome: Code(s): K58.9 - Irritable bowel syndrome, unspecified Category: Medical (9) Pancreatic cyst: Comment: 8 mm cystic lesion in the pancreas - stable since 2013. Plan is to continue to follow with imaging every 2 years. If size increases to > 1 cms,she will need further evaluation with EUS/MRCP. 02/[address] scan showed Fatty lesion anterior body/tail of pancreas junction is stable. Code(s): K86.2 - Cyst of pancreas Category: Medical (10) Nausea: Code(s): R11.0 - Nausea Category: Medical Plan 53 YF with htn, fibromyalgia, asthma, migraine BROWNE with long history of abdominal pain associated with diarrhea and bloating, constipation alternating with diarrhea with symptoms suggestive of outlet delay. Abdominal pain is likely due to IBS with constipation and diarrhea. Patient notes partial improvement in symptoms with senna, she has not used a suppository or enema in the past.? She tried dicyclomine in the past and was not helpful for abdominal pain. Patient had a colonoscopy on 11/18/19? for evaluation of rectal bleeding which revealed diverticulosis and no polyps.? Random biopsies obtained from the colon were negative for inflammation. 08/2020 Anorectal manometry with balloon expulsion testing at [facility] showed: IMPRESSIONS: Borderline anal hypertension and borderline anal hypocontractility (overall anal sphincter strength lower than average for gender) Abnormal balloon expulsion with normal manometric pattern of rectoanal coordination normal rectal propulsive force and normal anal relaxation with push) This is considered an inconclusive finding that can also be seen in normal controls according to the Wu classification. Mild rectal hypersensitivity suggestive of chronic constipation She complains of constipation x 2-3 days followed by soft/watery stools lasting for half a day. ?Patient was advised to take Miralax every other day for constipation and take Rifaximin x 14 days for suspected SIBO. Takes Miralax intermittently Pt was advised to go on a clear liquid diet and take Mag Citrate to clean out her colon. Then start taking Linzess for constipation. 01/30/22 - pt was advised stool studies, start a probiotic and increase sucralfate to 3-4 times daily 03/16/22 Pt was switched from Omeprazole to Pantoprazole 40 mg twice daily and started on Amitriptyline 25 mg at bedtime. 04/28/22 Amitriptyline dose was increased to 50 mg at bedtime Pt's wt gain is likely related to elevated TSH levels - repeat TSH planned in [address] Humphrey 11/30/22 Pt complains of left sided abd pain, bloating and worsening GERD symptoms after she was advised to take the Pantoprazole later in the day and stop sucralfate due to suspected drug interaction with Levothyroxine. Pt was advised to increase pantoprazole to 40 mg twice daily and amitriptyline to 75 mg at bedtime She will be scheduled for an EGD (last EGD in 2018 showed a small hiatal hernia and gastritis - no HP on bx) - scheduled on 12/22/22. 12/21/22 Pt seen with worsening upper abdominal pain, nausea, vomiting and unable to tolerate PO food. Pt had an elevated lipase on 12/18/22 Pt advised to return to the ED for repeat labs, lipase and a CT scan with IV contrast. She will need to be admitted if lipase remains elevated for bowel rest and IVF Repeat lipase was normal. ABD CT SCAN SHOWED: PANCREAS: Edematous appearing pancreas with peripancreatic stranding. This appears more pronounced than the 08/08/2020 examination. No peripancreatic fluid collections. No dilatation of the main pancreatic duct. CT findings were reviewed with the patient. 12/22/22 EGD was performed in findings as noted above. Order placed for MRCP for FU of pancreatitis Of note pt is status post lap macy and had a normal triglyceride level a few months ago. Pt advised to schedule an appt with Endocrinology 05/03/23 Lab and MRI results reviewed. Vaguely recall being treated with steroids in the past (? 2006). Complains of nausea and postprandial vomiting. Has been loosing weight. IgG4 level was elevated at 166.8 Additional lab, urine and stool test were ordered and not done yet - pt advised to complete FU appt in 6 weeks ADDENDUM: 05/17/23 Pt called an lab results reviewed: Having watery stools for the past two weeks with bowel accidents Notes post prandial diarrhea which is very smelly. Stool appears greasy and sometime pale with white dots. No one is sick at home. Having 1 meal a day (rice, beans, chicken, eggs and toast) and keeps loosing weight. Started on antibiotics for suspected SIBO and has been taking it without improvement in symptoms. Pt with long hx of Abd pain, diarrhea alternating with constipation initially diagnosed with IBS Enlarged pancreas on past CT and MRI showed a normal pancreas Elevated Ig G4 levels without other clinical signs of Ig G4 related disease 06/01/[address] Alegre for a 2nd opinion and additional labs were ordered and pt scheduled for EGD and colon 11/15/23 Not good, stomach hurts, intermittent watery diarrhea which is yellow in color Watery diarrhea for a few days and then constipation Has diarrhea 4 days per week (5 times a day) and constipation for the rest of the week Has not had a normal BM in the past several months Takes soups when she has the diarrhea and avoids taking solids. Continues to have constant nausea, bloating and burping. 11/22/23 EGD and Colon performed by Dr Alegre showed: EGD: Esophagus: GE junction at 32 cm, diaphragm hiatus at 35 cm, consistent with 3 cm sliding hiatal hernia, erosive esophagitis noted, LA grade A --esophageal inlet patch noted Balloon dilation was performed Stomach: Patchy erythema. Biopsies were obtained. Grade 2 flap valve on retroflexed examination of the cardia. Duodenum: Normal bulb and descending duodenum, bx taken Colonoscopy Findings: internal hemorrhoids with skin tags Plan: Await Pathology results Repeat Colonoscopy in 1 year due to areas of fair prep or earlier if clinically indicated High fiber diet leaflet avoid straining at stool, epsom salts and sitz bath, anusol supps or cream reflux precautions if H pylori pos then treat 01/17/24 EGD and colon results were reviewed with the patient Continues to have diarrhea 5-6 times a day - has diarrhea when she goes to pee Every time she eats, she has to go to the bathroom Noted difficulty swallowing while drinking a smoothie. Poopo is sarah - coffee grain material in the poop on toilet paper - green Had a lot of pain that day. Has gained weight - attributes to thyroid issues. Pt advised a trail of pancreatic enzymes and Rabeprazole 04/17/24 [place] of antibiotics for suspected SIBO Going to [place] in April (GS is graduating from the [employer]) FU in 3 months Medications: New amoxicillin-pot clavulanate 875-125 mg 1 tab PO Q12H 20 tabs 0RF 10 days K63.8219 - Small intestinal bacterial overgrowth, unspecified ondansetron 4 mg PO Q8H PRN 30 tabs 1RF nausea and vomiting 30 days R11.0 - Nausea Refilled lisinopril 40 mg PO DAILY 90 tabs 1RF 90 days I10 - Essential (primary) hypertension Coding Level of Care Code Est Pt Level 4 (56217) Diagnoses Small intestinal bacterial overgrowth K63.8219 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
[2024-04-17 07:49] VITALS: BP 171/107; PULSE 80; BMI 37.4
== END 2024-04-17 08:21 | disposition home or self-care (01) ==
PROVIDERS: PCP Internal Medicine; Visit Provider Internal Medicine Gastroenterology
DX: K63.8219 Small intestinal bacterial overgrowth, unspecified (principal); R76.8 Other specified abnormal immunological findings in serum; K52.9 Noninfective gastroenteritis and colitis, unspecified; R74.8 Abnormal levels of other serum enzymes; R10.9 Unspecified abdominal pain; K59.09 Other constipation; K21.9 Gastro-esophageal reflux disease without esophagitis; K58.9 Irritable bowel syndrome, unspecified; K86.2 Cyst of pancreas; R11.0 Nausea
CPT/HCPCS: 99499

== ENCOUNTER 2024-04-17 07:31 | Outpatient (AMB) | payer OTHER, SELFPAY ==
--- OUTSIDE RECORDS SUMMARY | 2024-04-17 07:33 | XMS_ITS | Encounter Summary ---
Author Organization [facility] Address [address] [place] [address] Care Team Providers Care Game Technician Name Role Phone Tommy Smith MD Primary Care Provider Joanne vailable Reason for Visit * Reason Onset Date Comments APPOINTMENT 02/05/2019 Encounter Details Date Type Department Care Team Description 02/05/2019 Telephone Internal Medicine - [address], [address] [place] [address] Tommy Smith MD APPOINTMENT Social History Tobacco Use Types Packs/Day Years Used Date Smoking Tobacco: Former Smokeless Tobacco: Never Alcohol Use Standard Drinks/Week Comments Not Asked 0 (1 standard drink = 0.6 oz pur e alcohol) Sex Assigned at Date Recorded Not on file documented as of this encounter Miscellaneous Notes * Telephone Encounter - Edelmira Baez - 02/05/2019 2:32 PM EST Pt called re: message left to reschedule cx appt from Alfredo-Called and spoke with Violet for next Consult time. Patient thought appt was with Percy Vargas.P.A. She was unaware he left. documented in this encounter Plan of Treatment Not on file documented as of this encounter Visit Diagnoses Not on filedocumented in this encounter Care Teams Game Technician Relationship Specialty Start Date End Date Tommy Smith MD PCP - General Internal Medicine 06/28/18 documented as of this encounter
--- OUTSIDE RECORDS SUMMARY | 2024-04-17 07:33 | XMS_ITS | Encounter Summary ---
Author Organization [facility] Address [address] [place] [address] Care Team Providers Care Cytopathologist Name Role Phone Tommy Smith MD Primary Care Provider Joanne vailable Reason for Visit * Reason Comments E-prescribe Rx Request Encounter Details Date Type Department Care Team Description 09/12/2020 Refill Pulmonology - [place] [address] [facility] [address] [place] [phone] Nguyen Morrison MD [address] [place] [phone] E-prescribe Rx Request Social History Tobacco Use Types Packs/Day Years Used Date Smoking Tobacco: Former Smokeless Tobacco: Never Alcohol Use Standard Drinks/Week Comments Not Asked 0 (1 standard drink = 0.6 oz pur e alcohol) Sex Assigned at Date Recorded Not on file documented as of this encounter Miscellaneous Notes * Telephone Encounter - Becca Nayak - 11/03/2020 1:26 PM EDT Patient would like script to be: E-PRESCRIBED/FAXED TO PHARMACY WHEN WAS THE PATIENT'S LAST APPOINTMENT WITH THE PRESCRIBING PROVIDER? 06/28/2018 Does patient have an upcoming appointment? No. Spoke with patient 11/03/20 she informed me that she is now [place] and does not wish to schedule here. (THE MEDICATION REQUESTED IS ON THE MED LIST ABOVE) All of the medications requested were on the CURRENT MEDS list Did you check the Pharmacy information above?: YES Patient wants: 30 -day supply Is this a mail order prescription request ? NO Patients current insurance carrier is: Payor: [employer] FFS / Plan: [employer]ok / Product Type: MEDICAID RISK documented in this encounter Plan of Treatment Not on file documented as of this encounter Visit Diagnoses Diagnosis Moderate persistent asthma without complication Unspecified asthma Cough Allergic rhinitis, unspecified seasonality, unspecified trigger documented in this encounter Care Teams Cytopathologist Relationship Specialty Start Date End Date Tommy Smith MD PCP - General Internal Medicine 06/28/18 documented as of this encounter
--- OUTSIDE RECORDS SUMMARY | 2024-04-17 07:33 | XMS_ITS | Encounter Summary ---
Author Organization [facility] Address [address] [place] [address] Care Team Providers Care Furs Salesperson Name Role Phone Tommy Smith MD Primary Care Provider Joanne vailable Reason for Visit * Reason Comments E-prescribe Rx Request Encounter Details Date Type Department Care Team Description 01/14/2019 Refill Pulmonology - [place] [address] [facility] [address] [place] [phone] Wil Vargas PA-C [address] [facility] [address] [place] [phone] E-prescribe Rx Request Social History Tobacco Use Types Packs/Day Years Used Date Smoking Tobacco: Former Smokeless Tobacco: Never Alcohol Use Standard Drinks/Week Comments Not Asked 0 (1 standard drink = 0.6 oz pur e alcohol) Sex Assigned at Date Recorded Not on file documented as of this encounter Miscellaneous Notes * Telephone Encounter - Nuvia Taylor - 01/14/2019 3:50 PM EST Patient would like script to be: E-PRESCRIBED/FAXED TO PHARMACY When was the patients last office visit in Adult Medicine?: 06/28/18 with Sam When was the last time the patient saw their PCP? Unknown Does patient have an upcoming appointment? Yes 02/04/[address] mcdonald (THE MEDICATION IS NOT ON THE MED LIST AND IS IDENTIFIED BELOW): {MED LIST:16273) Med name: benzonatate (TESSALON) 200 MG capsule Dosage: 200 mg # of tablets: 30 Local pharmacy with request for 30 -day supply Instructions: Take 1 Cap by mouth 3 times daily as needed for Cough for up to 30 days. Did you check the pharmacy information above?: YES Patients current insurance carrier: Payor: [employer] FFS / Plan: [employer] / Product Type: MEDICAID RISK documented in this encounter Plan of Treatment Not on file documented as of this encounter Visit Diagnoses Diagnosis Moderate persistent asthma without complication Unspecified asthma Cough Allergic rhinitis, unspecified seasonality, unspecified trigger documented in this encounter Care Teams Furs Salesperson Relationship Specialty Start Date End Date Tommy Smith MD PCP - General Internal Medicine 06/28/18 documented as of this encounter
--- OUTSIDE RECORDS SUMMARY | 2024-04-17 07:33 | XMS_ITS | Encounter Summary ---
Author Organization [facility] Address [address] [place] [address] Care Team Providers Care Multimedia Editor Name Role Phone Tommy Smith MD Primary Care Provider Joanne vailable Reason for Visit * Reason Comments E-prescribe Rx Request Encounter Details Date Type Department Care Team Description 09/14/2020 Refill Pulmonology - [place] [address] [facility] [address] [place] [phone] Nguyen Morrison MD [address] [place] [phone] E-prescribe Rx Request Social History Tobacco Use Types Packs/Day Years Used Date Smoking Tobacco: Former Smokeless Tobacco: Never Alcohol Use Standard Drinks/Week Comments Not Asked 0 (1 standard drink = 0.6 oz pur e alcohol) Sex Assigned at Date Recorded Not on file documented as of this encounter Miscellaneous Notes * Telephone Encounter - Nuvia Garcia - 09/15/2020 2:03 PM EDT Disregard this request. Patient is seeing another provider. documented in this encounter Plan of Treatment Not on file documented as of this encounter Visit Diagnoses Diagnosis Moderate persistent asthma without complication Unspecified asthma Cough Allergic rhinitis, unspecified seasonality, unspecified trigger documented in this encounter Care Teams Multimedia Editor Relationship Specialty Start Date End Date Tommy Smith MD PCP - General Internal Medicine 06/28/18 documented as of this encounter
--- OUTSIDE RECORDS SUMMARY | 2024-04-17 07:33 | XMS_ITS | Encounter Summary ---
Author Organization [facility] Address [address] [place] [address] Care Team Providers Care Monitor Technician Name Role Phone Tommy Smith MD Primary Care Provider Joanne vailable Reason for Visit * Reason Comments E-prescribe Rx Request Encounter Details Date Type Department Care Team Description 11/12/2020 Refill Pulmonology - [place] [address] [facility] [address] [place] [address] Nguyen Morrison MD [address] [place] [phone] E-prescribe Rx Request Social History Tobacco Use Types Packs/Day Years Used Date Smoking Tobacco: Former Smokeless Tobacco: Never Alcohol Use Standard Drinks/Week Comments Not Asked 0 (1 standard drink = 0.6 oz pur e alcohol) Sex Assigned at Date Recorded Not on file documented as of this encounter Miscellaneous Notes * Telephone Encounter - Isaura Montalvo - 11/12/2020 3:24 PM EDT Patient would like script to be: E-PRESCRIBED/FAXED TO PHARMACY WHEN WAS THE PATIENT'S LAST APPOINTMENT IN ADULT MEDICINE? 06/05/18 WHEN WAS THE LAST TIME THE PATIENT SAW THEIR PCP? Same as above Does patient have an upcoming appointment? NO (THE MEDICATION REQUESTED IS ON THE MED LIST ABOVE) All of the medications requested were on the CURRENT MEDS list Did you check the Pharmacy information above?: YES Patient wants: 30 -day supply Is this a mail order prescription request ? NO If the refill is from a FAXED refill request what is the RX # listed on the fax? N/A Patients current insurance carrier is: Payor: [employer] FFS / Plan: [employer] / Product Type: MEDICAID RISK documented in this encounter Plan of Treatment Not on file documented as of this encounter Visit Diagnoses Diagnosis Moderate persistent asthma without complication Unspecified asthma Cough Allergic rhinitis, unspecified seasonality, unspecified trigger documented in this encounter Care Teams Monitor Technician Relationship Specialty Start Date End Date Tommy Smith MD PCP - General Internal Medicine 06/28/18 documented as of this encounter
--- OUTSIDE RECORDS SUMMARY | 2024-04-17 07:33 | XMS_ITS | Encounter Summary ---
Author Organization [facility] Address [address] [place] [address] Care Team Providers Care Senior Clinical Data Coordinator Name Role Phone Tommy Smith MD Primary Care Provider Joanne vailable Reason for Visit * Reason Comments E-prescribe Rx Request Encounter Details Date Type Department Care Team Description 10/07/2020 Refill Pulmonology - [place] [address] [facility] [address] [place] [phone] Nguyen Morrison MD [address] [place] [phone] E-prescribe Rx Request Social History Tobacco Use Types Packs/Day Years Used Date Smoking Tobacco: Former Smokeless Tobacco: Never Alcohol Use Standard Drinks/Week Comments Not Asked 0 (1 standard drink = 0.6 oz pur e alcohol) Sex Assigned at Date Recorded Not on file documented as of this encounter Plan of Treatment Not on file documented as of this encounter Visit Diagnoses Diagnosis Moderate persistent asthma without complication Unspecified asthma Cough Allergic rhinitis, unspecified seasonality, unspecified trigger documented in this encounter Care Teams Senior Clinical Data Coordinator Relationship Specialty Start Date End Date Tommy Smith MD PCP - General Internal Medicine 06/28/18 documented as of this encounter
--- OUTSIDE RECORDS SUMMARY | 2024-04-17 07:33 | XMS_ITS | Encounter Summary ---
Author Organization [facility] Address [address] [facility] [place] [address] Care Team Providers Care Aircraft Captain Name Role Phone Naomi Bains MD Primary Care Provider Tommy Sellers MD Primary Care Provider Joanne vailable Encounter Details Date Type Department Care Team Description 06/10/2018 Release of Information Medical Records [address] [place] [id number] Abstract, Provider Social History Tobacco Use Types Packs/Day Years [...] on filedocumented in this encounter Care Teams Aircraft Captain Relationship Specialty Start Date End Date Naomi Bains MD PCP - General Family Practice 05/27/18 06/27/18 Tommy Smith MD PCP - General Internal Medicine 06/28/18 documented as of this encounter
[2024-04-17 09:06] VITALS: BP 148/110; PULSE 88; BMI 37.3
--- NOTE | 2024-04-17 09:06 | A.OFFVIS_ITS ---
Vital Signs 04/17/24 09:06 Height 5 ft 5 in Weight 224 lb BMI 37.3 BP 148/110 H Blood Pressure Location Lt brachial Position Sitting Pulse 88 Pulse Source Pulse Oximeter Intake Visit Reasons: 2 mth f/up [facility] Required: No Allergies pineapple [PINEAPPLE] Allergy (Severe, Verified 04/17/24 09:08) ANAPHYLAXIS adhesive tape Allergy (Intermediate, Verified 04/17/24 09:08) Blister Iodinated Contrast Media [IV Dye, Iodine Containing] Allergy (Intermediate, Verified 04/17/24 09:08) SOB,RASH levofloxacin [From Levaquin] Allergy (Intermediate, Verified 04/17/24 09:08) swelling/rash oxycodone [From Percocet] Allergy (Intermediate, Verified 04/17/24 09:08) rash/SOB aspirin [ASA] Adverse Reaction (Mild, Verified 04/17/24 09:08) UPSET STOMACH Medication List - Last Reconciled 04/17/24 by Lisa Lilly NP-C amlodipine 10 mg PO DAILY atorvastatin (Lipitor) 10 mg PO DAILY baclofen 10 mg PO BID 10 days cholecalciferol (vitamin D3) (Vitamin D3) 50 mcg PO DAILY diphenhydramine HCl (Benadryl Allergy) 25 mg orally one tablet this evening and one tablet tomorrow am; docusate sodium 100 mg PO BID famotidine 20 mg PO BEDTIME PRN [id number] 200-62.5-25 mcg (Trelegy Ellipta) 1 inh inhalation DAILY hydrochlorothiazide 12.5 mg PO DAILY 90 days ipratropium bromide 2 sprays intranasal TID 30 days ipratropium-albuterol 0.5 mg-3 mg(2.5 mg base)/3 mL 3 mL inhalation Q4-6H PRN lisinopril 40 mg PO DAILY 90 days lorazepam 1 mg PO ONCE PRN metoprolol tartrate 100 mg PO BID 90 days mupirocin 2% 1 appl topical BID 30 days omalizumab (Xolair) 300 mg (2 mL) subcut Q2W omeprazole 40 mg (2 x 20 mg) PO DAILY pyridoxine (vitamin B6) 100 mg PO DAILY rabeprazole 20 mg PO DAILY 90 days topiramate 50 mg PO BID Ventolin HFA 90 mcg/actuation (albuterol sulfate) 2 puffs inhalation Q4-6H PRN 30 days NS HPI HPI 2 mth f/up: Details: Gloria is a 53-year-old female with past medical history of obesity, hypertension, hyperlipidemia who has undergone evaluation for chest discomfort and heart palpitations without significant findings who has been reporting episodes of brief vision loss and blurred vision. She did undergo a carotid ultrasound and CTA of the head and neck without acute findings. Today she reports that she is still having issues with her vision. She still notices brief loss of vision in both eyes lasting seconds, now occurring daily. She says her vision seems more blurry overall. She has been under high stress and recently lost her aunt and had to travel to [place] for her services. She wore a cardiac event monitor and mailed it back in last week. She recalls noticing heart palpitations when she had the monitor on. She has random vague chest discomfort which she believes is related to her fibromyalgia. No chest discomfort or palpitations brought on by physical activity. No concerning shortness of breath, no PND, orthopnea or edema. No presyncope, syncope, falls. She has had no weakness of her extremities or mobility issues. She is very concerned as she has been without her thyroid medication for the last 2 months. She has tells me the recycling specialist will no longer see her. She has not been able to get an appointment with the eye doctor. [facility] Medical History (Updated 04/17/24 @ 12:18 by Lisa Lilly, RETURNER-C) Hypothyroidism Dysphagia Diarrhea Well woman exam Abnormal finding on EKG Hx of flexible sigmoidoscopy Internal derangement of right shoulder Lump of left breast Lump of right breast Lump of axillary tail of right breast Chronic constipation Rotator cuff impingement syndrome of left shoulder Right forearm pain Colitis Hypertensive urgency Rotator cuff impingement syndrome Lateral epicondylitis of both elbows Fall IBS (irritable bowel syndrome) Abdominal bloating Tendinopathy of left rotator cuff History of TIA (transient ischemic attack) Hypercholesterolemia Vitamin D deficiency Multinodular thyroid Pancreatic cyst Constipation Thyroid nodule Diarrhea Rectal bleeding Esophageal spasm GERD (gastroesophageal reflux disease) Hypertension Asthma Kidney stones History of migraine headaches Fibromyalgia Allergic rhinitis Sciatic nerve pain Ovarian cyst Surgical History History of arthroscopic surgery of shoulder Hx of eye surgery History of breast lump/mass excision Hx of hemorrhoidectomy Hx of tubal ligation History of esophagogastroduodenoscopy (EGD) History of colonoscopy (~11/16/19) H/O: hysterectomy History of thyroidectomy (~11/2018) History of kidney surgery Hx of bilateral breast reduction surgery Hx of appendectomy History of cholecystectomy (~2003) H/O lithotripsy Family History Father Family history of high blood pressure History of high cholesterol Mother History of diabetes mellitus Family history of high blood pressure Family history of asthma History of fibromyalgia Liver disease Maternal Grandfather Colon cancer Family/Other Breast cancer Social History Household Members: Spouse Household Members Other:: daughter Housing: Apartment Are you a primary care management assistant to a significant other at home: No Do you presently have visiting nurse or other home services: No Alcohol intake: never Patient Tobacco Use Status: Former Tobacco user Tobacco use type: Cigarette Years Smoked: 15 e-Cigarette/Vaping Use: Never Used Second Hand Smoke Exposure: Yes Substance Use Type: Marijuana service: No Current occupational status: disabled Current occupation: right handed Sexual orientation: Straight/Heterosexual Gender identity: Female Cognitive needs: No Hearing needs: No Vision needs: Yes Female Reproductive History Menstrual Age of Menarche: 10 Review of Systems Const All systems reviewed & are unremarkable except as noted in HPI and below Reports headache(s) and Reports malaise Eyes Details: brief loss of vision - episodes daily Reports blurry vision ENT Denies dizziness and Reports headache(s) Card Details: palpitations Denies chest pain, Denies chest pain at rest, Denies chest pain with activity, Denies rapid heart rate, Denies pedal edema, Denies edema, Denies leg edema, Denies lightheadedness, Denies palpitations, Denies dyspnea, Denies dyspnea on exertion and Denies orthopnea Resp Denies cough, Denies dyspnea and Denies dyspnea on exertion GI Denies hematochezia and Denies change in stool character Musc Denies abnormal gait, Denies limited range of motion, Denies muscle cramps, Denies muscle weakness, Denies numbness, Denies radiating pain into limb, Denies stiffness and Denies tingling Neuro Denies abnormal gait, Denies dizziness, Reports headache(s), Denies numbness and Denies tingling Endo Denies palpitations Physical Exam Vital Signs: Last Vital Signs Pulse 88 04/17/24 09:06 BP 148/110 H 04/17/24 09:06 BMI result Body Mass Index 37.3 Const General: cooperative, healthy appearing, comfortable and no acute distress Orientation/consciousness: patient oriented x3 HEENT Head: Yes normal to inspection Neck Neck: Yes normal visual inspection Carotids: normal carotid upstroke Resp Effort & Inspection: normal respiratory effort Auscultation: clear to auscultation bilaterally, no rales, no rhonchi and no wheezes Cardio Rate: regular rate Rhythm: regular rhythm Heart sounds: S1 normal heart sound present, S2 normal heart sound present, no gallops, no murmurs and no rubs Neuro General: patient oriented x3 Extrem General: Yes normal to inspection and No no pedal edema Psych Appearance: grossly normal Mental Status: mental status grossly normal Speech and movement: Normal speech and movement present Assessment & Plan Assessment & Plan (1) Alteration in vision: Code(s): H54.7 - Unspecified visual loss Category: Medical Plan: On visit, 11/15/2023 she reported an episode of brief visual loss, each eye, lasting seconds. No speech or mobility issues. A carotid ultrasound was done on 11/26/2023 showing normal right ICA, minimal, non hemodynamically significant stenosis of the proximal left ICA, 0-49% stenosis. On last visit she reported increasing number of episodes. There was concern this may be amaurosis fugax and A CTA of the head and neck was done 02/19/2024 showing no acute abnormalities. Once those results were reviewed with her it was recommended th at she follow-up with her family engagement specialist. Today she reports that she has not seen her family engagement specialist yet. She said no one has called her yet with an appointment. Her episodes and now are occurring daily and she says her vision is blurry. She says she has seen Dr. Smith in the past. Will reach out to his office and fax this note from today, requesting that patient be evaluated soon for her reported eye symptoms. Informed her that if she has any new or concerning symptoms she should seek emergency medical care [facility]. (2) History of TIA (transient ischemic attack): Comment: 07/2020 @ [facility] [place]due to uncontrolled HTN per patient-no residual Code(s): Z86.73 - Personal history of transient ischemic attack (TIA), and cerebral infarction without residual deficits Category: Medical Plan: As above (3) Palpitations: Code(s): R00.2 - Palpitations Category: Medical Plan: Prior Reports of heart palpitations like her heart is going fast. She is on metoprolol tartrate 100 mg b.i.d.. EKG done last visit showed sinus tachycardia, rate 106. She has normal [place], QRS and QTC intervals. Labs done 01/07/2024 showed TSH 0.36, free T4 1.77. Holter monitor done on 12/04/2023 for 5 days showed sinus rhythm with average heart rate 93, no significant ectopy seen. Today she reports that she has had ongoing episodes of heart palpitations. She recently wore a cardiac event monitor and had palpitations while wearing it. Those test results are not available at this visit. Plan to call her when results are reviewed. Will have her continue on current metoprolol dose. Reviewed good hydration, getting adequate rest, limiting caffeine and anxiety control. (4) Precordial chest pain: Code(s): R07.2 - Precordial pain Category: Medical Plan: Prior Reports of Atypical sounding chest discomfort that is occurring at rest and with activity. Echocardiogram done 09/11/2023 showing EF 60-65%, mild LVH, impaired relaxation, no valve abnormalities. Exercise stress echocardiogram done 11/06/2023 with exercise 6 minutes, report of mild chest tightness, no EKG or echo evidence of ischemia. Her EKGs have not shown any signs of ischemia. Today she reports no anginal sounding chest discomfort. She also has issues with fibromyalgia which may be contributing to precordial chest pain. No further testing needed at this time. (5) Hypertension: Code(s): I10 - Essential (primary) hypertension Category: Medical Qualifiers: Hypertension type: essential hypertension Qualified Code(s): I10 - Essential (primary) hypertension Plan: Elevated at this visit. She tells me that she has been under high stress with the loss of a family member and recent travel. She also is very worried that she is off her thyroid medication for the last 2 months. She has been taking her meds as directed. Will continue metoprolol, amlodipine, lisinopril. Will increase hydrochlorothiazide to 25 mg daily. (6) Hypothyroidism: Code(s): E03.9 - Hypothyroidism, unspecified Category: Medical Qualifiers: Hypothyroidism type: postoperative Qualified Code(s): E89.0 - Postprocedural hypothyroidism Plan: Patient tells me she has a history of thyroidectomy. She says she has been wi thout her thyroid medication for 2 months since she is no longer following with Dr. Vargas for endocrinology. Labs done on 03/11/2024 showed TSH 20.67. Will forward this note and send message to her PCP regarding restart of her thyroid medication. Plan Time spent on chart review, documentation, interview and assessment Coding Level of Care Code Est Pt Level 4 (34056) Complex EM visit Add On G2211 Diagnoses Alteration in vision H54.7 History of TIA (transient ischemic attack) Z86.73 Palpitations R00.2 Precordial chest pain R07.2 Essential hypertension I10 Hypertension type: essential hypertension Postoperative hypothyroidism E89.0 Hypothyroidism type: postoperative Time Spent (min) 30
== END 2024-04-17 09:46 | disposition home or self-care (01) ==
PROVIDERS: PCP Internal Medicine; Visit Provider Nurse Practitioner Family
DX: H54.7 Unspecified visual loss (principal); Z86.73 Personal history of transient ischemic attack (TIA), and cerebral infarction without residual deficits; R00.2 Palpitations; R07.2 Precordial pain; I10 Essential (primary) hypertension; E89.0 Postprocedural hypothyroidism
CPT/HCPCS: 99214; G2211

== ENCOUNTER → 2024-04-17 07:31 | Outpatient (BNVA) | payer OTHER, SELFPAY | PROVIDERS: PCP Internal Medicine; Visit Provider Internal Medicine Gastroenterology | DX: Z13.89 Encounter for screening for other disorder (principal) | CPT/HCPCS: 99212 ==

== ENCOUNTER 2024-04-23 09:15 | Outpatient (AMB) | payer OTHER, SELFPAY ==
[2024-04-23 09:17] VITALS: BP 160/110; PULSE 76; O2SAT 97; BMI 37.0
--- NOTE | 2024-04-23 09:17 | A.OFFPC_ITS ---
Vital Signs 04/23/24 09:17 04/23/24 10:04 Height 5 ft 5 in Weight 222 lb 6 oz BMI 37.0 BP 160/110 H 150/90 H Blood Pressure Location Lt brachial Position Sitting Pulse 76 Pulse Source Pulse Oximeter Pulse Oximetry (%) 97 Oxygen Delivery Method Room Air Intake Visit Reasons: 6 Week F/U Java Flex Developer Required: No Accompanied by: Self / Same As Patient Allergies pineapple [PINEAPPLE] Allergy (Severe, Verified 04/23/24 09:34) ANAPHYLAXIS adhesive tape Allergy (Intermediate, Verified 04/23/24 09:34) Blister Iodinated Contrast Media [IV Dye, Iodine Containing] Allergy (Intermediate, Verified 04/23/24 09:34) SOB,RASH levofloxacin [From Levaquin] Allergy (Intermediate, Verified 04/23/24 09:34) swelling/rash oxycodone [From Percocet] Allergy (Intermediate, Verified 04/23/24 09:34) rash/SOB aspirin [ASA] Adverse Reaction (Mild, Verified 04/23/24 09:34) UPSET STOMACH Medication List - Last Reconciled 04/23/24 by Donis Barron PA-C amlodipine 10 mg PO DAILY amoxicillin-pot clavulanate 875-125 mg 1 tab PO Q12H 10 days atorvastatin (Lipitor) 10 mg PO DAILY baclofen 10 mg PO BID 10 days cholecalciferol (vitamin D3) (Vitamin D3) 50 mcg PO DAILY diphenhydramine HCl (Benadryl Allergy) 25 mg orally one tablet this evening and one tablet tomorrow am; docusate sodium 100 mg PO BID famotidine 20 mg PO BEDTIME PRN lliqhrgdedc-chtetrzob-frkkukxn 200-62.5-25 mcg (Trelegy Ellipta) 1 inh inhalation DAILY hydrochlorothiazide 25 mg PO DAILY ipratropium bromide 2 sprays intranasal TID 30 days ipratropium-albuterol 0.5 mg-3 mg(2.5 mg base)/3 mL 3 mL inhalation Q4-6H PRN levothyroxine (Tirosint) 175 mcg PO DAILY lisinopril 40 mg PO DAILY 90 days lorazepam 1 mg PO ONCE PRN metoprolol tartrate 100 mg PO BID 90 days mupirocin 2% 1 appl topical BID 30 days omalizumab (Xolair) 300 mg (2 mL) subcut Q2W omeprazole 40 mg (2 x 20 mg) PO DAILY ondansetron 4 mg PO Q8H PRN 30 days pyridoxine (vitamin B6) 100 mg PO DAILY rabeprazole 20 mg PO DAILY 90 days topiramate 50 mg PO BID Ventolin HFA 90 mcg/actuation (albuterol sulfate) 2 puffs inhalation Q4-6H PRN 30 days NS Tobacco use date assessed: 04/23/24 Dental Screening Dental Screen Date: 04/23/24 Did you have a dental visit in the last 12 months?: Yes Did you have a dental problem in the last 6 months where you did not have access to dental care?: No Was dental information given to patient?: Patient has dentist HPI 6 Week F/U HPI Details The patient is a 53-year-old female presenting for 6 week follow-up visit. Patient has a past medical history significant for hypothyroidism, major depressive disorder, obesity, GERD, irritable bowel syndrome, hypertension Concern--> vision issues--> The patient also details significant issues with her vision, necessitating urgent ophthalmological evaluation following transient vision loss and blurry vision episodes. Previous surgical intervention for strabismus is noteworthy. CT head and neck in January of 2024 without any vascular issues She has a history of fibromyalgia, which has significantly worsened over the past three years, coinciding with the of her niece and mother, leading to severe depression and anxiety. The fibromyalgia results in chronic pain throughout her body, including headaches and muscle pain, and she reports multiple unsuccessful medication trials, including gabapentin and other unspecified treatments, without sustained relief. The patient's depression, compounded by considerable personal loss, exacerbates her pain and disrupts her sleep. Hypothyroidism: Most recent TSH elevated at 20. She does report she has been out of thyroid medication for quite some time. Has lost follow up with her resolution specialist. She was on levothyroxine tablets in the past though had absorption issues due to her GI gastritis. She was changed to capsules which were much more effective. Now needs prior authorization through insurance explaining this so that she can get capsules of her levothyroxine. Nephrolithiasis: Kidney stone management remains a concern, with hematuria persisting despite pending analytic results and imminent lithotripsy. Recent diagnostic evaluations, including 24-hour urine collection and Holter monitor application, have not yet been concluded with tangible results. She has a history of hypertension, which remains poorly controlled despite current medications including amlodipine, lisinopril, and metoprolol. This may be exacerbated by her chronic pain. She also reports a family history of cardiovascular diseases, including her mother's from hypertension-related complications and her father's pacemaker implantation. Her lisinopril and hydrochlorothiazide has been increased to maximal doses. Laboratory Tests 01/07/24 03/11/24 09:43 11:52 RBC 4.79 TSH 0.36 20.67 H PFSH Medical History Hypothyroidism Dysphagia Diarrhea Well woman exam Abnormal finding on EKG Hx of flexible sigmoidoscopy Internal derangement of right shoulder Lump of left breast Lump of right breast Lump of axillary tail of right breast Chronic constipation Rotator cuff impingement syndrome of left shoulder Right forearm pain Colitis Hypertensive urgency Rotator cuff impingement syndrome Lateral epicondylitis of both elbows Fall IBS (irritable bowel syndrome) Abdominal bloating Tendinopathy of left rotator cuff History of TIA (transient ischemic attack) Hypercholesterolemia Vitamin D deficiency Multinodular thyroid Pancreatic cyst Constipation Thyroid nodule Diarrhea Rectal bleeding Esophageal spasm GERD (gastroesophageal reflux disease) Hypertension Asthma Kidney stones History of migraine headaches Fibromyalgia Allergic rhinitis Sciatic nerve pain Ovarian cyst Surgical History History of arthroscopic surgery of shoulder Hx of eye surgery History of breast lump/mass excision Hx of hemorrhoidectomy Hx of tubal ligation History of esophagogastroduodenoscopy (EGD) History of colonoscopy (~11/16/19) H/O: hysterectomy History of thyroidectomy (~11/2018) History of kidney surgery Hx of bilateral breast reduction surgery Hx of appendectomy History of cholecystectomy (~2003) H/O lithotripsy Family History Father Family history of high blood pressure History of high cholesterol Mother History of diabetes mellitus Family history of high blood pressure Family history of asthma History of fibromyalgia Liver disease Maternal Grandfather Colon cancer Family/Other Breast cancer Social History Household Members: Spouse Household Members Other:: daughter Housing: Apartment Are you a primary manager respiratory care to a significant other at home: No Do you presently have visiting nurse or other home services: No Alcohol intake: never Patient Tobacco Use Status: Former Tobacco user Tobacco use type: Cigarette Years Smoked: 15 e-Cigarette/Vaping Use: Never Used Second Hand Smoke Exposure: Yes Substance Use Type: Marijuana service: No Current occupational status: disabled Current occupation: right handed Sexual orientation: Straight/Heterosexual Gender identity: Female Cognitive needs: No Hearing needs: No Vision needs: Yes Female Reproductive History Menstrual Age of Menarche: 10 Questionnaire PHQ-9 Over the last 2 weeks, how often have you been bothered by any of the following problems? 1. Little interest or pleasure in doing things: nearly every day 2. Feeling down, depressed, or hopeless: nearly every day 3. Trouble falling or staying asleep, or sleeping too much: nearly every day 4. Feeling tired or having little energy: nearly every day 5. Poor appetite or overeating: not at all 6. Feeling bad about yourself - or that you are a failure or have let yourself or your family down: nearly every day 7. Trouble concentrating on things, such as reading the newspaper or watching television: nearly every day 8. Moving or speaking so slowly that other people could have noticed. Or the opposite - being so fidgety or restless that you have been moving around a lot more than usual: not at all 9. Thoughts that you would be better off or of hurting yourself in some way: not at all Total score: 18 Depression Screening Interpretation: Positive Depression Screening Follow-up: Existing condition and Community Mental Health Worker F/U Depression Screening Done: Yes 84766 - PHQ-9 Billing: Yes Source: Developed by Drs. Rainer Caldwell, Ashanti Malone, Hank Dewitt and colleagues, with an educational mayco from [employer]. Thrive Questionnaire Date Thrive assessed: 04/23/24 I am a: Patient What is your living situation today?: I have a steady place to live Within the past 12 months, did the food you bought not last and you didn't have the money to get more?: Never true Within the past 12 months, did you worry whether your food would run out before you got money to buy more?: Never true Do you have trouble paying for medicines?: No Do you have trouble getting transportation to medical appointments?: No Do you have trouble paying your heating and electricity bill?: No Do you have trouble taking care of your child, family member or friend?: No Do you have trouble with day-to-day activities such as bathing, preparing meals, shopping, managing finances, etc.?: No Are you currently unemployed and looking for a job?: No Are you interested in more education?: No Please select the resources that you would like help with: None Currently or been in a relationship where the following occur: No concerns reported THRIVE Score: 0 AUDIT C Alcohol Use Questionnaire (AUDIT-C) 1. How often do you have a drink containing alcohol?: Never 3. How often do you have six or more drinks on one occasion?: Never Total Score: 0 INDRA-7 AMB Questionnaire INDRA-7 Date INDRA - 7 assessed: 04/23/24 Feeling nervous, anxious, or on edge: 0 = Not at all Not being able to stop or control worryin = Not at all Worrying too much about different things: 0 = Not at all Trouble relaxin = Not at all Being so restless that it is hard to sit still: 0 = Not at all Becoming easily annoyed or irritable: 0 = Not at all Feeling afraid as if something awful might happen: 0 = Not at all Total INDRA-7 score (0-4 normal; 5-9 mild; 10-14 moderate; 15-21 severe): 0 Source: Developed by Drs. Rainer Caldwell, Ashanti Malone, Hank Dewitt and colleagues, with an educational mayco from [employer]. INDRA-7 Assessment Billing INDRA-7 Assessment Tool: INDRA-7 Assessment 77771 Review of Systems Const Denies headache(s) Eyes Denies loss of vision ENT Denies vertigo, Denies dizziness, Denies headache(s) and Denies sore throat Card Denies chest pain, Denies leg edema and Denies lightheadedness Resp Denies cough, Denies hemoptysis and Denies wheezing GI Denies abdominal pain, Denies melena, Denies constipation, Denies diarrhea and Denies vomiting Denies urinary frequency, Denies dysuria and Denies urinary urgency Musc Denies arthralgias, Denies joint swelling, Denies numbness and Denies tingling Neuro Denies Abnormal speech present, Denies behavioral changes, Denies vertigo, Denies dizziness, Denies headache(s), Denies loss of vision, Denies memory loss, Denies numbness and Denies tingling Psych Denies anxiety, Denies behavioral changes, Denies depression, Denies memory loss and Denies panic attacks Chuy/Lymph Denies easy bleeding and Denies easy bruising Aller/Immun Denies wheezing Physical exam (Primary Care) Vital Signs: Last Vital Signs Pulse 76 04/23/24 09:17 BP 150/90 H 04/23/24 10:04 Pulse Ox 97 04/23/24 09:17 Oxygen Delivery Method Room Air 04/23/24 09:17 BMI result Body Mass Index 37.0 Tobacco/Smoking Status: Tobacco use Status Tobacco use date assessed 04/23/24 04/23/24 09:20 Patient Tobacco Use Status Former Tobacco user 04/23/24 09:20 Tobacco use type Cigarette 04/23/24 09:20 e-Cigarette/Vaping Use Never Used 04/23/24 09:20 PHQ-9: PHQ-9 Score PHQ-9: Total score 18 04/23/24 10:06 Depression Screening Interpretation: Positive Depression Screening Follow-up: Ex isting condition and Community Mental Health Worker F/U Thrive Assessment: Date of Thrive Assessment Date Thrive assessed 04/23/24 04/23/24 09:20 Currently or been in a relationship where the following occur: No concerns reported Const General: healthy appearing, no acute distress, alert and awake Nutritional Appearance: well nourished Orientation/consciousness: oriented to person, oriented to place and oriented to time HENMT Ears: TM's normal bilaterally General nose exam: Normal nasal mucous membranes and turbinates present Eyes Conjunctivae: conjunctivae normal Sclerae: sclerae normal Pupils: Equal, round and reactive pupils present Neck Neck: Yes no lymphadenopathy and Yes no JVD Thyroid: Thyroid normal Carotids: no bruits Resp Effort & Inspection: normal respiratory effort and not tachypneic Auscultation: no crackles, no rales, no rhonchi and no wheezes Cardio Rate: regular rate Rhythm: regular rhythm Heart sounds: no murmurs and normal S1 and S2 GI Palpation (GI): Soft to palpation, nontender, no hepatomegaly and no splenomegaly Auscultation: normal bowel sounds Skin General skin exam: no rashes or lesions noted and dry skin Neuro General: oriented to person, oriented to place and oriented to time Cranial nerves: Yes Equal, round and reactive pupils present Speech: No Abnormal speech present Gait exam (Neuro): Normal gait present Motor exam (neuro): no tremor noted Extrem Right upper extremity: full ROM Left upper extremity: full ROM Right lower extremity: full ROM; no edema Left lower extremity: full ROM; no edema Psych Mental Status: mental status grossly normal Speech and movement: Normal speech and movement present Affect: normal affect Attitude: cooperative Thought process: Normal thought process present Coding Level of Care Code Est Pt Level 4 (67991) Diagnoses Blurred vision, bilateral H53.8 Alteration in vision H54.7 Essential hypertension I10 Hypertension type: essential hypertension Postoperative hypothyroidism E89.0 Hypothyroidism type: postoperative Additional Codes INDRA-7 Assessment Billing - INDRA-7 Assessment Tool: INDRA-7 Assessment 26989 ([id number]) PHQ-9 - 87969 - PHQ-9 Billing: Yes ([id number]) Assessment & Plan Assessment & Plan (1) Blurred vision, bilateral: Code(s): H53.8 - Other visual disturbances Category: Medical (2) Alteration in vision: Code(s): H54.7 - Unspecified visual loss Category: Medical Plan: Patient reports acute vision loss particularly when exerting herself. She has not seen an eye doctor in quite some time and would like an urgent evaluation for this. She is seeing a delivery associate. CT head and neck----> 1. CT head demonstrates no acute intracranial hemorrhage or edematous infarct. 2. CTA head demonstrates no large vessel occlusion, saccular aneurysm, or dissection. 3. CTA neck demonstrates no hemodynamically significant stenosis, dissection, or aneurysm. (3) Hypertension: Code(s): I10 - Essential (primary) hypertension Category: Medical Qualifiers: Hypertension type: essential hypertension Qualified Code(s): I10 - Essential (primary) hypertension Plan: Elevated at this visit. She tells me that she has been under high stress with the loss of a family member and recent travel. She also is very worried that she is off her thyroid medication for the last 2 months. She has been taking her meds as directed. Will continue metoprolol, amlodipine, lisinopril. Will increase hydrochlorothiazide to 25 mg daily. (4) Hypothyroidism: Code(s): E03.9 - Hypothyroidism, unspecified Category: Medical Qualifiers: Hypothyroidism type: postoperative Qualified Code(s): E89.0 - Postprocedural hypothyroidism Plan: Patient has lost followed up with her resolution specialist. Repeat testing of her thyroid showing TSH of 20. She does seem some symptomatic with the easy bruising and fatigue ect.. Now needs PCP to fill her thyroid medication. She was on capsules of levothyroxine as she was not able to absorb tablets of levothyroxine due to her gastritis and GERD. Has been having trouble getting capsules due to needing prior authorization for the capsules of levothyroxine. Plan Time spent on chart review, documentation, interview and assessment Orders: Referrals Ophthalmology Referral H53.8 - Other visual disturbances
[2024-04-23 10:04] VITALS: BP 150/90
--- OUTSIDE RECORDS SUMMARY | 2024-04-23 10:21 | XMS_ITS | Encounter Summary ---
Author Organization [facility] Address [address] [place] [address] Care Team Providers Care Slicer Machine Operator Name Role Phone Tommy Smith MD Primary Care Provider Joanne vailable Reason for Visit * Reason Comments E-prescribe Rx Request Encounter Details Date Type Department Care Team Description 08/11/2019 Refill Pulmonology - [place] [address] [place] [address] Nguyen Morrison MD [address] [place] [address] E-prescribe Rx Request Social History Tobacco Use Types Packs/Day Years Used Date Smoking Tobacco: Former Smokeless Tobacco: Never Alcohol Use Standard Drinks/Week Comments Not Asked 0 (1 standard drink = 0.6 oz pur e alcohol) Sex Assigned at Date Recorded Not on file documented as of this encounter Miscellaneous Notes * Telephone Encounter - Nuvia Taylor - 08/20/2019 9:14 AM EDT Patient would like script to be: E-PRESCRIBED/FAXED TO PHARMACY When was the patients last office visit in Adult Medicine?: 06/28/2018 WITH BRITTANY When was the last time the patient saw their PCP? N/A Does patient have an upcoming appointment? Yes 08/28/[address] GREGG (THE MEDICATION IS NOT ON THE MED LIST AND IS IDENTIFIED BELOW): {MED LIST:01442) Med name: benzonatate (TESSALON) 200 MG capsule Dosage: 200 MG # of tablets: 30 CAP Local pharmacy with request for 30 -day supply Instructions: TAKE 1 CAP BY MOUTH 3 TIMES DAILY NEEDED FOR COUGH Did you check the pharmacy information above?: YES Patients current insurance carrier: Payor: Ayannah FFS / Plan: [employer] / Product Type: MEDICAID RISK documented in this encounter Plan of Treatment Not on file documented as of this encounter Visit Diagnoses Diagnosis Moderate persistent asthma without complication Unspecified asthma Cough Allergic rhinitis, unspecified seasonality, unspecified trigger documented in this encounter Care Teams Slicer Machine Operator Relationship Specialty Start Date End Date Tommy Smith MD PCP - General Internal Medicine 06/28/18 documented as of this encounter
--- OUTSIDE RECORDS SUMMARY | 2024-04-23 10:21 | XMS_ITS | Clinical Summary ---
Author Organization [facility] Facility Address [address] [place] [address], [place] [address] Care Team Providers Care Computer Processing Scheduler Name Role Phone Naomi Bains MD Primary Care Provider [phone] Family History Medical History Relation Comments Hypertension Father Diabetes Mother Heart disease Mother Hypertension Mother Relation Status Comments Father Unknown Mother Unknown Social History Tobacco Use Types Packs/Day Years Used Date Smoking Tobacco: Former Alcohol Use Standard Drinks/Week Comments No 0 (1 standard drink = 0.6 oz pur e alcohol) Comments Unknown Sex and Gender Information Value Date Recorded Sex Assigned at Not on file Legal Sex Female 5:07 PM EST Gender Identity Not on file Sexual Orientation Not on file Plan of Treatment Health Maintenance Due Date Last Done Comments Breast Cancer Screening 1972 Pneumococcal Vaccine: Pediat rics (0 to 5 Years) and At-Risk Patients (6 to 64 Years) (1 of 2 - PCV) 1978 Hepatitis B Vaccine (1 of 3 - 19+ 3-dose series) 08/29 Colorectal Cancer Screening: Annual FOBT 2021 Colorectal Cancer Screening: Colonoscopy 2021 Colorectal Cancer Screening: Sigmoidoscopy 2021 Influenza Vaccine (#1) 2023 [place] [address] [facility] MEDICAID [facility] MEDICAID Care Teams Computer Processing Scheduler Relationship Specialty Start Date End Date Naomi Bains MD [address] [place] [id number] PCP - General 03/08/20
--- OUTSIDE RECORDS SUMMARY | 2024-04-23 10:21 | XMS_ITS | Clinical Summary ---
Author Organization [facility] Address [address] [place] [address] Care Team Providers Care Landmen Name Role Phone Tommy Smith MD Primary Care Provider Joanne vailable Allergies Active Allergy Reactions Severity Noted Date Comments Aspirin 11/13/2012 Abdominal discomfort Levofloxacin 11/13/2012 Medications Medication Sig Dispensed Refills Start Date End Date Status Loratadine (CLARITIN) 10 MG CAPS Take by mouth. 0 Active amlodipine (NORVASC) 10 MG tablet Take 10 mg by mouth daily. 0 Active Fluticasone Propionate (FLONASE NA) by Nasal route. 0 Active ALBUTEROL SULFATE 108 (90 BASE) MCG/ACT AERS Inhale 2 Puffs into the lungs every 4 hours as needed. 0 Active metoprolol (LOPRESSOR) 100 MG tablet Take 100 mg by mouth 2 times daily. 0 Active omeprazole (PRILOSEC) 20 MG capsule Take 20 mg by mouth daily. 0 Active pravastatin (PRAVACHOL) 40 MG tablet Take 40 mg by mouth daily. 0 Active fluticasone (FLOVENT HFA) 220 MCG/ACT inhaler Inhale 1 Puff into the lungs 2 times daily. 0 Active tramadol (ULTRAM) 50 MG tabletIndications:Mo derate persistent asthma without complication,Cough,A llergic rhinitis, unspecified seasonality, unspecified trigger Take 50 mg by mouth every 6 hours as needed. 0 Active hydrALAZINE (APRESOLINE) 25 MG tabletIndications:Mo derate persistent asthma without complication,Cough,A llergic rhinitis, unspecified seasonality, unspecified trigger Take 25 mg by mouth 2 times daily. 0 Active fluticasone-salmeter ol (ADVAIR DISKUS) 500-50 MCG/DOSE diskus inhalerIndications:M oderate persistent asthma without complication,Cough,A llergic rhinitis, unspecified seasonality, unspecified trigger Inhale 1 Puff into the lungs every 12 hours for 90 days. Rinse mouth with water 1 Inhaler 5 06/05/2018 Active predniSONE (DELTASONE) 20 MG tabletIndications:Mo derate persistent asthma without complication,Cough,A llergic rhinitis, unspecified seasonality, unspecified trigger 40mg PO QD for 4 days, then 20mg PO QD x 3 days 11 Tab 0 06/05/2018 Active ALBUTEROL SULFATE (VENTOLIN HFA) 108 (90 BASE) MCG/ACT Aero SolnIndications:Mode rate persistent asthma without complication,Cough,A llergic rhinitis, unspecified seasonality, unspecified trigger Inhale 2 Puffs into the lungs 4 times daily as needed for Wheezing or Shortness of Breath. 1 Inhaler 6 06/05/2018 Active fluticasone 50 MCG/ACT nasal sprayIndications:Mod erate persistent asthma without complication,Cough,A llergic rhinitis, unspecified seasonality, unspecified trigger TAKE 2 PUFFS EACH NOSTRIL ONCE PER DAY 1 Bottle 3 08/12/2018 Active benzonatate (TESSALON) 200 MG capsuleIndications:M oderate persistent asthma without complication,Cough,A llergic rhinitis, unspecified seasonality, unspecified trigger TAKE 1 CAP BY MOUTH 3 TIMES DAILY NEEDED FOR COUGH 30 Cap 3 08/20/2019 Active montelukast (SINGULAIR) 10 MG tabletIndications:Mo derate persistent asthma without complication,Cough,A llergic rhinitis, unspecified seasonality, unspecified trigger TAKE 1 TABLET BY MOUTH AT BEDTIME 30 tablet 5 11/12/2020 Active Active Problems Problem Noted Date H/O: hysterectomy 06/05/2018 Hypertension 11/13/2012 Hyperlipidemia LDL goal < 130 11/13/2012 Overview: IMO update Allergic rhinitis, cause unspecified Asthma 11/13/2012 Fatty liver 11/13/2012 Calculus of kidney 11/13/2012 Hemidiaphragmatic eventration, right Migraines 11/13/2012 Social History Tobacco Use Types Packs/Day Years Used Date Smoking Tobacco: Former Smokeless Tobacco: Never Alcohol Use Standard Drinks/Week Comments Not Asked 0 (1 standard drink = 0.6 oz pur e alcohol) Sex Assigned at Date Recorded Not on file Last Filed Vital Signs Vital Sign Reading Time Taken Comments Blood Pressure 130/90 06/28/2018 9:08 AM EDT Pulse 126 06/28/2018 9:08 AM EDT Temperature - - Respiratory Rate 12 06/28/2018 9:08 AM EDT Oxygen Saturation 92% 06/28/2018 9:08 AM EDT Inhaled Oxygen Concentration - - Weight 97.6 kg (215 lb 3.2 oz) 06/28/2018 9:08 A M EDT Height 163.8 cm (5' 4.5 ) 06/28/2018 9:08 AM EDT Body Mass Index 36.37 06/28/2018 9:08 AM EDT Plan of Treatment Health Maintenance Due Date Last Done Comments Covid-19 Vaccine (#1) 03/01/1973 DTAP/TDAP/TD (1 - Tdap) 08/30/1991 PNEUMOCOCCAL VACCINE FOR HIG H RISK PATIENTS (#1) 08/30/1991 CHOLESTEROL SCREENING 1992 CERVICAL CANCER SCREENING 1993 BASELINE HEALTH EXAM 40-64 2012 MAMMOGRAM 2012 COLON CANCER SCREENING 2022 SHINGLES VACCINE (1 of 2) 2022 INFLUENZA (#1) 2023 BMI CHECK/ADVISE 02/27/2024 06/28/2018, 06/05/2018 DEPRESSION SCREENING/FOLLOWUP 02/27/2024 SOCIAL NEEDS SCREENING 02/27/2024 Care Teams Landmen Relationship Specialty Start Date End Date Tommy Smith MD PCP - General Internal Medicine 06/28/18
--- OUTSIDE RECORDS SUMMARY | 2024-04-23 10:21 | XMS_ITS | Encounter Summary ---
Author Organization [facility] Address [address] [place] [address] Care Team Providers Care Information Writer Name Role Phone Tommy Smith MD Primary Care Provider Joanne vailable Reason for Visit * Reason Comments E-prescribe Rx Request Encounter Details Date Type Department Care Team Description 01/14/2019 Refill Pulmonology - [place] [address] [place] [phone] Wil Vargas PA-C [address] [place] [phone] E-prescribe Rx Request Social History Tobacco Use [...] MED LIST AND IS IDENTIFIED BELOW): {MED LIST:73825) Med name: benzonatate (TESSALON) 200 MG capsule Dosage: 200 mg # of tablets: 30 Local pharmacy with request for 30 -day supply Instructions: Take 1 Cap by mouth 3 times daily as needed for Cough for up to 30 days. Did you check the pharmacy information above?: YES Patients current insurance carrier: Payor: [employer] / Plan: [employer] / Product Type: MEDICAID RISK documented in this encounter Plan of Treatment Not on file documented as of this encounter Visit Diagnoses Diagnosis Moderate persistent asthma without complication Unspecified asthma Cough Allergic rhinitis, unspecified seasonality, unspecified trigger documented in this encounter Care Teams Information Writer Relationship Specialty Start Date End Date Tommy Smith MD PCP - General Internal Medicine 06/28/18 documented as of this encounter
--- OUTSIDE RECORDS SUMMARY | 2024-04-23 10:21 | XMS_ITS | Encounter Summary ---
Author Organization [facility] Address [address] [place] [address] Care Team Providers Care Clarity Specialists Name Role Phone Tommy Smith MD Primary Care Provider Joanne vailable Reason for Visit * Reason Onset Date Comments APPOINTMENT 02/05/2019 Encounter Details Date Type Department Care Team Description 02/05/2019 Telephone Internal Medicine - [address], [address] [place] [address] Tommy Smith MD APPOINTMENT Social History Tobacco [...] on filedocumented in this encounter Care Teams Clarity Specialists Relationship Specialty Start Date End Date Tommy Smith MD PCP - General Internal Medicine 06/28/18 documented as of this encounter
--- OUTSIDE RECORDS SUMMARY | 2024-04-23 10:21 | XMS_ITS | Encounter Summary ---
Author Organization [facility] Address [address] [place] [address] Care Team Providers Care Manager Welding Name Role Phone Tommy Smith MD Primary Care Provider Joanne vailable Reason for Visit * Reason Comments E-prescribe Rx Request Encounter Details Date Type Department Care Team Description 10/07/2020 Refill Pulmonology - [place] [address] [facility] [address] [place] [phone] Nguyen Morrison MD [address] [place] [phone] E-prescribe Rx Request Social History Tobacco Use [...] trigger documented in this encounter Care Teams Manager Welding Relationship Specialty Start Date End Date Tommy Smith MD PCP - General Internal Medicine 06/28/18 documented as of this encounter
--- OUTSIDE RECORDS SUMMARY | 2024-04-23 10:22 | XMS_ITS | Encounter Summary ---
Author Organization [facility] Address [address] [place] [address] Care Team Providers Care Route Sales Person Name Role Phone Tommy Smith MD Primary Care Provider Joanne vailable Reason for Visit * Reason Comments E-prescribe Rx Request Encounter Details Date Type Department Care Team Description 09/12/2020 Refill Pulmonology - [place] [address] [facility] [address] [place] [phone] Nguyen Morrison MD [address] [place] [phone] E-prescribe Rx Request Social History Tobacco Use [...] she is now seeing a [place]Antonia [place] and does not wish to schedule here. (THE MEDICATION REQUESTED IS ON THE MED LIST ABOVE) All of the medications requested were on the CURRENT MEDS list Did you check the Pharmacy information above?: YES Patient wants: 30 -day supply Is this a mail order prescription request ? NO Patients current insurance carrier is: Payor: [employer]FS / Plan: [employer] / Product Type: MEDICAID RISK documented in this encounter Plan of Treatment Not on file documented as of this encounter Visit Diagnoses Diagnosis Moderate persistent asthma without complication Unspecified asthma Cough Allergic rhinitis, unspecified seasonality, unspecified trigger documented in this encounter Care Teams Route Sales Person Relationship Specialty Start Date End Date Tommy Smith MD PCP - General Internal Medicine 06/28/18 documented as of this encounter
--- OUTSIDE RECORDS SUMMARY | 2024-04-23 10:22 | XMS_ITS | Encounter Summary ---
Author Organization [facility] Address [address] [place] [address] Care Team Providers Care Conduit Reamer Operator Name Role Phone Tommy Smith MD Primary Care Provider Joanne vailable Reason for Visit * Reason Comments E-prescribe Rx Request Encounter Details Date Type Department Care Team Description 08/11/2019 Refill Pulmonology - [place] [address] [facility] [address] [place] [phone] Wil Vargas PA-C [address] [facility] [address] [place] [phone] E-prescribe Rx Request Social History Tobacco Use Types Packs/Day Years Used Date Smoking Tobacco: Former Smokeless Tobacco: Never Alcohol Use Standard Drinks/Week Comments Not Asked 0 (1 standard drink = 0.6 oz pur e alcohol) Sex Assigned at Date Recorded Not on file documented as of this encounter Miscellaneous Notes * Telephone Encounter - Elena Naik - 08/19/2019 2:46 PM EDT Sabrina- 06/28/18 Next- 08/28/[address] uFentes. * Telephone Encounter - Garima Uriarte - 08/19/2019 2:08 PM EDT Patient would like script to be: E-PRESCRIBED/FAXED TO PHARMACY WHEN WAS THE PATIENT'S LAST APPOINTMENT WITH THE PRESCRIBING PROVIDER? 06/28/18 Does patient have an upcoming appointment? Yes 08/28/19 (THE MEDICATION REQUESTED IS ON THE MED LIST ABOVE) All of the medications requested were on the CURRENT MEDS list Did you check the Pharmacy information above?: YES Patient wants: 30 -day supply Is this a mail order prescription request ? NO Patients current insurance carrier is: Payor: [employer] FFS / Plan: [employer] / Product Type: MEDICAID RISK * Telephone Encounter - Elena Naik - 08/13/2019 3:38 PM EDT Patient needs an appt before medication can be refilled, please schedule. Thank you * Telephone Encounter - Brenda Howard - 08/13/2019 2:31 PM EDT Sabrina 06.28.2018 No upcoming 90 day documented in this encounter Plan of Treatment Not on file documented as of this encounter Visit Diagnoses Diagnosis Moderate persistent asthma without complication Unspecified asthma Cough Allergic rhinitis, unspecified seasonality, unspecified trigger documented in this encounter Care Teams Conduit Reamer Operator Relationship Specialty Start Date End Date Tommy Smith MD PCP - General Internal Medicine 06/28/18 documented as of this encounter
== END 2024-04-23 10:13 | disposition home or self-care (01) ==
PROVIDERS: PCP Physician Assistant; Visit Provider Physician Assistant
DX: H53.8 Other visual disturbances (principal); H54.7 Unspecified visual loss; I10 Essential (primary) hypertension; E89.0 Postprocedural hypothyroidism

== ENCOUNTER → 2024-04-23 09:15 | Outpatient (BNVA) | payer OTHER, SELFPAY | PROVIDERS: PCP Physician Assistant; Visit Provider Physician Assistant | DX: H53.8 Other visual disturbances (principal); H54.7 Unspecified visual loss; I10 Essential (primary) hypertension; E89.0 Postprocedural hypothyroidism | CPT/HCPCS: 96127; 99212 ==

== ENCOUNTER → 2024-04-30 06:10 | Outpatient (BNV) | payer OTHER, SELFPAY | PROVIDERS: PCP Internal Medicine; Visit Provider Radiology Diagnostic Radiology | DX: N20.0 Calculus of kidney (principal) | CPT/HCPCS: 74018 ==

== ENCOUNTER 2024-04-30 07:46 | Day surgery (SDC) | payer OTHER, SELFPAY ==
[2024-04-28 11:45] VITALS: BMI 37.3
--- NOTE | ~2024-04-30 | XR_ITS ---
EXAMINATION: XR ABDOMEN KUB CLINICAL INDICATION: left renal stone COMPARISON: April 04, 2023. TECHNIQUE: AP view of the abdomen. FINDINGS: There is gas throughout the intestine. There is stool in the right hemicolon and rectum. No intestinal dilatation. No air-fluid levels. Vascular clips in the right upper quadrant and right mid abdomen likely prior cholecystectomy. Multilevel thoracolumbar spondylosis. XR/XR KUB IMPRESSION: No intestinal obstruction pattern. Electronically signed by: Shaheed Bryant MD 04/30/2024 08:15 AM EVAN WOODRUFF
[2024-04-30 08:20] VITALS: BP 147/90; PULSE 69; RESP 16; TEMP 36.3; O2SAT 95; BMI 36.6
[2024-04-30] MEDS: Lactated Ringers 1,000 ML 100 ML IVCONT (08:45)
[2024-04-30] MEDS: Lactated Ringers 500 ML 999 ML IV (08:45)
--- NOTE | 2024-04-30 09:11 | HO.ANESPROP2 ---
Documented by User: Cristy Gunderson NP 04/29/24 10:15 HPI - Anesthesia Eval Consult details Narrative: 53yo F for Left Lithotripsy ESW Follows [facility] Cardiology for palps, atypical CP - all w/u negative. Per last office visit note, pt having vision problems - negative carotid US and head CTA. Awaiting opthamology visit. PMFSH Active Problems Active Problems: All Active Problems Blurred vision, bilateral (Acute) Nausea (Acute) Easy bruisability (Acute) Injury of left great toe (Acute) Severe persistent asthma (Acute) Nasal abrasion (Acute) MDD (major depressive disorder), recurrent episode, moderate (Acute) Eustachian tube disorder (Acute) Ear congestion (Acute) Numbness and tingling in both hands (Acute) Arthritis of carpometacarpal (CMC) joint of left thumb (Acute) De Quervain's tenosynovitis, left (Acute) Preop cardiovascular exam (Acute) Alteration in vision (Acute) Palpitations (Acute) Thumb tendonitis (Acute) MGUS (monoclonal gammopathy of unknown significance) (Acute) Hand pain (Acute) Precordial chest pain (Acute) Elevated immunoglobulin A (Acute) Hyper-IgE syndrome (Acute) Acute diarrhea (Acute) Small intestinal bacterial overgrowth (Acute) Encounter for preoperative pulmonary examination (Acute) 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 (Acute) Chronic diarrhea (Acute) Pelvic pain (Acute) Breast lump on left side at 1 o'clock position (Acute) Chest pain (Acute) Bilateral renal stones (Acute) Acute pancreatitis (Acute) Elevated lipase (Acute) Abdominal pain (Acute) PND (paroxysmal nocturnal dyspnea) (Acute) Right elbow pain (Acute) Migraine (Acute) Skin candidiasis (Acute) Pruritic rash (Acute) Intermittent constipation (Acute) Lichen simplex chronicus (Acute) Obesity (Acute) GERD (gastroesophageal reflux disease) (Acute) Vulvar lesion (Acute) Irritable bowel syndrome (Acute) Post-surgical hypothyroidism (Acute) History of repair of right rotator cuff (Acute) Environmental allergies (Acute) Depression (Acute) Adhesive capsulitis of left shoulder (Acute) Complete rotator cuff tear or rupture of right shoulder, not specified as traumatic (Acute) Hypothyroidism (Acute) History of TIA (transient ischemic attack) (Acute) Kidney stones (Acute) Hypercholesterolemia (Acute) Vitamin D deficiency (Acute) Pancreatic cyst (Acute) Hypertension (Acute) Asthma (Acute) Esophageal spasm (Acute) Fibromyalgia (Acute) Past Medical History Medical History (Updated 04/29/24 @ 09:33 by Libby Pérez RN) Dysphagia Well woman exam Abnormal finding on EKG Hx of flexible sigmoidoscopy Internal derangement of right shoulder Lump of left breast Lump of right breast Lump of axillary tail of right breast Chronic constipation Rotator cuff impingement syndrome of left shoulder Right forearm pain Colitis Hypertensive urgency Rotator cuff impingement syndrome Lateral epicondylitis of both elbows Fall IBS (irritable bowel syndrome) Abdominal bloating Tendinopathy of left rotator cuff History of TIA (transient ischemic attack) Hypercholesterolemia Vitamin D deficiency Multinodular thyroid Pancreatic cyst Thyroid nodule Diarrhea Rectal bleeding Esophageal spasm GERD (gastroesophageal reflux disease) Hypertension Asthma Kidney stones History of migraine headaches Fibromyalgia Allergic rhinitis Sciatic nerve pain Ovarian cyst Hypothyroidism Family History Family History Father Family history of high blood pressure History of high cholesterol Mother History of diabetes mellitus Family history of high blood pressure Family history of asthma History of fibromyalgia Liver disease Maternal Grandfather Colon cancer Family/Other Breast cancer Family history of problems with anesthesia: No Surgical History Surgical History History of arthroscopic surgery of shoulder Hx of eye surgery History of breast lump/mass excision Hx of hemorrhoidectomy Hx of tubal ligation History of esophagogastroduodenoscopy (EGD) History of colonoscopy (~11/16/19) H/O: hysterectomy History of thyroidectomy (~11/2018) History of kidney surgery Hx of bilateral breast reduction surgery Hx of appendectomy History of cholecystectomy (~2003) H/O lithotripsy History of Problems with Anesthesia: No Social History Social History Household Members: Spouse Household Members Other:: daughter Housing: Apartment Are you a primary acute care registered nurse to a significant other at home: No Do you presently have visiting nurse or other home services: No Alcohol intake: never Patient Tobacco Use Status: Former Tobacco user Tobacco use type: Cigarette Years Smoked: 15 e-Cigarette/Vaping Use: Never Used Second Hand Smoke Exposure: Yes Use of substances other than those prescribed or required for medical reasons: Yes Substance Use Type: Marijuana Substance Use Type Other:: LAST USED 2 DAYS AGO; 3X/WK Advance Directives: No Advance Directives Information Provided: Yes service: No Current occupational status: disabled Current occupation: right handed Sexual orientation: Straight/Heterosexual Gender identity: Female Cognitive needs: No Hearing needs: No Vision needs: Yes Meds Allergies Allergy/AdvReac Type Severity Reaction Status Date / Time pineapple [PINEAPPLE] Allergy Severe ANAPHYLAXIS Verified 04/30/24 08:47 adhesive tape Allergy Intermediate Blister Verified 04/30/24 08:47 Iodinated Contrast Media Allergy Intermediate SOB,RASH Verified 04/30/24 08:47 [IV Dye, Iodine Containing] levofloxacin [From Levaquin] Allergy Intermediate swelling/ra Verified 04/30/24 08:47 sh oxycodone [From Percocet] Allergy Intermediate rash/SOB Verified 04/30/24 08:47 aspirin [ASA] AdvReac Mild UPSET Verified 04/30/24 08:47 STOMACH Home Medications ?Medication ?Instructions ?Recorded ?Confirmed ?Last Taken ?Type topiramate 50 mg tablet 50 mg PO BID 11/15/23 04/30/24 Unknown History Exam Height,Weight and Vital Signs: Height 5 ft 5 in Weight 101.605 kg Pertinent Lab Results Pertinent Lab Results: Laboratory Tests 03/11/24 11:52 WBC 9.7 Hgb 14.9 Hct 43.1 Plt Count 266 Sodium 140 Potassium 3.7 Chloride 104 Carbon Dioxide 26 BUN 12 Creatinine 0.72 Narrative Narrative: EKG 01/2024 NSR @ 76 Low volt QRS Stress ECHO 10/2023 Protocol: [place] Max HR: 187 BPM 110% of Pred: 169 BPM Max BP: 204/110 mmHG Max Work Load: 7.0 METS Exercise stress test exercise 5 min 56 sec of Winston protocol achieivng approx 88% MPHR, with 3/10. chest tightnessbaseline, 5/10 at peak, with mild SOB, without arrhythmias, with resting HTN, hypertnesive response, with brisk HR response, without EKG changes. Echo images obtained by tech at rest and immediately post peak exercise,. Definity contrast used. Chest pain, blood pressure, and breathing returned to baseline,Test reviewed with Dr. Ross. Exercise echocardiogram was reviewed. At rest, there is normal LVEF and wall motion. With peak exercise, there is appropriate augmentation of wall thickening and contractility. There is normal decrease in end-systolic volumes. No clear evidence of exercise induced diastolic dysfunction or pulmonary hypertension. Overall, normal study. ECHO 08/2023 Conclusions: - 1. Normal LV ejection fraction of 60 65% with mild LVH with impaired relaxation filling pattern 2. Normal cardiac valvular Doppler 3. No gross pericardial effusion carotid ultrasound was done on 11/26/2023 showing normal right ICA, minimal, non hemodynamically significant stenosis of the proximal left ICA, 0-49% stenosis. CTA of the head and neck was done 02/19/2024 showing no acute abnormalities Assessment and Plan Assessment Anesthesia Assessment: Chart Reviewed Final Anesthetic Review Family History of Problems with Anesthesia: No History of Problems with Anesthesia: No Documented by User: Libby Munoz DO 04/30/24 09:13 [facility] Past Medical History Medical History (Updated 04/29/24 @ 09:33 by Libby Pérez RN) Dysphagia Well woman exam Abnormal finding on EKG Hx of flexible sigmoidoscopy Internal derangement of right shoulder Lump of left breast Lump of right breast Lump of axillary tail of right breast Chronic constipation Rotator cuff impingement syndrome of left shoulder Right forearm pain Colitis Hypertensive urgency Rotator cuff impingement syndrome Lateral epicondylitis of both elbows Fall IBS (irritable bowel syndrome) Abdominal bloating Tendinopathy of left rotator cuff History of TIA (transient ischemic attack) Hypercholesterolemia Vitamin D deficiency Multinodular thyroid Pancreatic cyst Thyroid nodule Diarrhea Rectal bleeding Esophageal spasm GERD (gastroesophageal reflux disease) Hypertension Asthma Kidney stones History of migraine headaches Fibromyalgia Allergic rhinitis Sciatic nerve pain Ovarian cyst Hypothyroidism Family History Family History Father Family history of high blood pressure History of high cholesterol Mother History of diabetes mellitus Family history of high blood pressure Family history of asthma History of fibromyalgia Liver disease Maternal Grandfather Colon cancer Family/Other Breast cancer Family history of problems with anesthesia: No Surgical History Surgical History History of arthroscopic surgery of shoulder Hx of eye surgery History of breast lump/mass excision Hx of hemorrhoidectomy Hx of tubal ligation History of esophagogastroduodenoscopy (EGD) History of colonoscopy (~11/16/19) H/O: hysterectomy History of thyroidectomy (~11/2018) History of kidney surgery Hx of bilateral breast reduction surgery Hx of appendectomy History of cholecystectomy (~2003) H/O lithotripsy History of Problems with Anesthesia: No Social History Social History Household Members: Spouse Household Members Other:: daughter Housing: Apartment Are you a primary acute care registered nurse to a significant other at home: No Do you presently have visiting nurse or other home services: No Alcohol intake: never Patient Tobacco Use Status: Former Tobacco user Tobacco use type: Cigarette Years Smoked: 15 e-Cigarette/Vaping Use: Never Used Second Hand Smoke Exposure: Yes Use of substances other than those prescribed or required for medical reasons: Yes Substance Use Type: Marijuana Substance Use Type Other:: LAST USED 2 DAYS AGO; 3X/WK Advance Directives: No Advance Directives Information Provided: Yes service: No Current occupational status: disabled Current occupation: right handed Sexual orientation: Straight/Heterosexual Gender identity: Female Cognitive needs: No Hearing needs: No Vision needs: Yes Meds Allergies Allergy/AdvReac Type Severity Reaction Status Date / Time pineapple [PINEAPPLE] Allergy Severe ANAPHYLAXIS Verified 04/30/24 08:47 adhesive tape Allergy Intermediate Blister Verified 04/30/24 08:47 Iodinated Contrast Media Allergy Intermediate SOB,RASH Verified 04/30/24 08:47 [IV Dye, Iodine Containing] levofloxacin [From Levaquin] Allergy Intermediate swelling/ra Verified 04/30/24 08:47 sh oxycodone [From Percocet] Allergy Intermediate rash/SOB Verified 04/30/24 08:47 aspirin [ASA] AdvReac Mild UPSET Verified 04/30/24 08:47 STOMACH Home Medications ?Medication ?Instructions ?Recorded ?Confirmed ?Last Taken ?Type topiramate 50 mg tablet 50 mg PO BID 11/15/23 04/30/24 Unknown History Exam Exam Date and Time: 04/30/24 0912 Height,Weight and Vital Signs: Vital Signs Temperature 97.3 F 04/30/24 08:20 Pulse Rate 69 04/30/24 08:20 Respiratory Rate 16 04/30/24 08:20 Blood Pressure 147/90 H 04/30/24 08:20 Pulse Oximetry 95 04/30/24 08:20 Oxygen Delivery Method Room Air 04/30/24 08:20 Temperature 97.3 F 04/30/24 08:20 Pulse Rate 69 04/30/24 08:20 Respiratory Rate 16 04/30/24 08:20 Blood Pressure 147/90 H 04/30/24 08:20 Pulse Oximetry 95 04/30/24 08:20 Oxygen Delivery Method Room Air 04/30/24 08:20 Height 5 ft 5 in Weight 101.605 kg Airway Mallampati Class: II TM Dist: >3cm Neck ROM: Full Loose/Missing/Broken Teeth: No (patient denies any loose or broken teeth) Heart: S1S2 Lungs: CTAB Assessment and Plan Assessment Anesthesia Assessment: Anesthesia Plan Discussed and Chart Reviewed Final Anesthetic Review Family History of Problems with Anesthesia: No History of Problems with Anesthesia: No NPO: Yes ASA Class: III Final Preanesthetic Review: No Changes in Pt Med Stat, Meds/Allgs Chart Reviewed, Consent Obtained/Reviewed and Anes Risks/Benef Reviewed Patient Risk: Intermediate Procedure Risk: Low Anesthetic Plan Anesthetic Plan: MAC: and Agree w/ Assess. and Plan Disposition: Standard PACU
--- NOTE | 2024-04-30 09:19 | W.PM.OPN ---
Operative Note Operative Note Date of Service: 04/30/24 Narrative: PreOperative Diagnosis:? ? Left Renal stone Post Operative Diagnosis:?Left? Renal stone Procedure:?Left? ESWL Surgeon:?Dr Blanca Lujan Anesthesia:? Monitored IV Sedation Indications for procedure: The patient understands there is a risk of bruising or hematoma to the kidney, infection, and stone migration following the procedure and subsequent intervention may be required.? - Imaging 9 x 9 mm stone left kidney lower pole Procedure: After informed consent was verified the patient was brought to the operating room and placed in a supine position.? Anesthesia was performed per protocol. Safety pause time-out was performed. Imaging was displayed in the room and laterality confirmed. ESWL was performed.?The stone was visualized on both fluoroscopy and ultrasound.? Shockwave lithotripsy was performed, with a maximum rate of 120 hertz. After the first 300 shocks a pause for 3 minutes was completed.? A total of 2500 shocks to a maximum of power of 20 (after 1200 shocks) with a maximum rate of 120 hertz.? Some fragmentation of the stone was appreciated. The patient tolerated the procedure well and was transferred to the recovery area upon completion. Complications: None
--- NOTE | 2024-04-30 09:19 | MHC.SHP ---
Pre-Procedural Eval Section A - 24 Hr Update-Section A only Date of Service: 04/30/24 The patient is an INPATIENT: No The patient has been examined within 24 hours of the surgical procedure. The History & Physical has been completed within 30 days and I have reviewed it.: Yes Section B - Complete if H&P > 30 days Chief Complaint: Calculus of kidney Allergies: Allergies Allergy/AdvReac Type Severity Reaction Status Date / Time pineapple [PINEAPPLE] Allergy Severe ANAPHYLAXIS Verified 04/30/24 08:47 adhesive tape Allergy Intermediate Blister Verified 04/30/24 08:47 Iodinated Contrast Media Allergy Intermediate SOB,RASH Verified 04/30/24 08:47 [IV Dye, Iodine Containing] levofloxacin [From Levaquin] Allergy Intermediate swelling/ra Verified 04/30/24 08:47 sh oxycodone [From Percocet] Allergy Intermediate rash/SOB Verified 04/30/24 08:47 aspirin [ASA] AdvReac Mild UPSET Verified 04/30/24 08:47 STOMACH Plan Diagnosis/Plan: Unchanged I have reviewed the history and physical and performed a pertinent physical examination on my patient. No changes have occurred unless specified. Left ESWL. Discussed risks to include but not limited to, blood in the urine, bruising to the skin, kidney hematoma, possible need for another procedure if a stone fragment obstructs the ureter while passing, possible need to repeat procedure if stone is not completely fragmented. Time Spent With Patient Time: Total time managing care of this patient today ____ minutes.
[2024-04-30] MEDS: ceFAZolin Sodium/Dextrose,Iso 2 GM/50 ML PIGGYBACK IV (09:25)
[2024-04-30 09:57] VITALS: BP 127/87; PULSE 64; RESP 24; TEMP 36.1; O2SAT 94
[2024-04-30 10:02] VITALS: BP 137/89; PULSE 63; RESP 19; O2SAT 96
[2024-04-30] MEDS: Haloperidol Lactate 5 MG/ML VIAL 1 MG IVPUSH (10:15)
[2024-04-30 10:17] VITALS: BP 155/97; PULSE 67; RESP 18; TEMP 36.1; O2SAT 99
== END 2024-04-30 11:18 | disposition home or self-care (01) ==
PROVIDERS: PCP Internal Medicine; Visit Provider Urology
PROC: (CPT 50590; principal; 2024-04-30 09:50)
DX: N20.0 Calculus of kidney (principal); Z87.442 Personal history of urinary calculi; I10 Essential (primary) hypertension; J45.909 Unspecified asthma, uncomplicated; R14.0 Abdominal distension (gaseous); K21.9 Gastro-esophageal reflux disease without esophagitis; K22.4 Dyskinesia of esophagus; Z86.73 Personal history of transient ischemic attack (TIA), and cerebral infarction without residual deficits; M79.7 Fibromyalgia; Z79.51 Long term (current) use of inhaled steroids; Z79.899 Other long term (current) drug therapy; Z88.1 Allergy status to other antibiotic agents; Z91.041 Radiographic dye allergy status; Z88.5 Allergy status to narcotic agent; L23.1 Allergic contact dermatitis due to adhesives; Z90.49 Acquired absence of other specified parts of digestive tract; Z98.890 Other specified postprocedural states; Z87.891 Personal history of nicotine dependence
CPT/HCPCS: 50590; 74018; J0131; J0690; J1100; J1630; J1885; J1940; J2003; J2250; J2405; J2704

== ENCOUNTER → 2024-04-30 07:46 | Outpatient (BNV) | payer OTHER, SELFPAY | PROVIDERS: PCP Internal Medicine; Visit Provider Urology | DX: N20.0 Calculus of kidney (principal) | CPT/HCPCS: 50590 ==

== ENCOUNTER 2024-05-01 13:19 | Outpatient (AMB) | payer OTHER, SELFPAY ==
[2024-05-01 13:31] VITALS: BP 148/92; PULSE 98; O2SAT 98; BMI 37.6
--- NOTE | 2024-05-01 13:31 | MHC.OFFVIS ---
Vital Signs 05/01/24 13:31 Height 5 ft 5 in Weight 225 lb 15.581 oz BMI 37.6 BP 148/92 H Blood Pressure Location Rt brachial Position Sitting Pulse 98 Pulse Source Doppler Pulse Oximetry (%) 98 Oxygen Delivery Method Room Air Intake Visit Reasons: Asthma Allergies pineapple [PINEAPPLE] Allergy (Severe, Verified 04/30/24 08:47) ANAPHYLAXIS adhesive tape Allergy (Intermediate, Verified 04/30/24 08:47) Blister Iodinated Contrast Media [IV Dye, Iodine Containing] Allergy (Intermediate, Verified 04/30/24 08:47) SOB,RASH levofloxacin [From Levaquin] Allergy (Intermediate, Verified 04/30/24 08:47) swelling/rash oxycodone [From Percocet] Allergy (Intermediate, Verified 04/30/24 08:47) rash/SOB aspirin [ASA] Adverse Reaction (Mild, Verified 04/30/24 08:47) UPSET STOMACH HPI HPI Asthma: Details: 53-year-old lady with underlying severe persistent allergic asthma and environmental allergies. After the last office visit patient continued on Xolair, however her insurance did not cover her inhaled bronchodilators, thus her symptoms are suboptimally controlled. She also has been complain of sleep issues that started after her insurance stopped covering her thyroid medication. [facility] Medical History (Updated 04/29/24 @ 09:33 by Libby Pérez RN) Dysphagia Well woman exam Abnormal finding on EKG Hx of flexible sigmoidoscopy Internal derangement of right shoulder Lump of left breast Lump of right breast Lump of axillary tail of right breast Chronic constipation Rotator cuff impingement syndrome of left shoulder Right forearm pain Colitis Hypertensive urgency Rotator cuff impingement syndrome Lateral epicondylitis of both elbows Fall IBS (irritable bowel syndrome) Abdominal bloating Tendinopathy of left rotator cuff History of TIA (transient ischemic attack) Hypercholesterolemia Vitamin D deficiency Multinodular thyroid Pancreatic cyst Thyroid nodule Diarrhea Rectal bleeding Esophageal spasm GERD (gastroesophageal reflux disease) Hypertension Asthma Kidney stones History of migraine headaches Fibromyalgia Allergic rhinitis Sciatic nerve pain Ovarian cyst Hypothyroidism Surgical History History of arthroscopic surgery of shoulder Hx of eye surgery History of breast lump/mass excision Hx of hemorrhoidectomy Hx of tubal ligation History of esophagogastroduodenoscopy (EGD) History of colonoscopy (~11/16/19) H/O: hysterectomy History of thyroidectomy (~11/2018) History of kidney surgery Hx of bilateral breast reduction surgery Hx of appendectomy History of cholecystectomy (~2003) H/O lithotripsy Family History Father Family history of high blood pressure History of high cholesterol Mother History of diabetes mellitus Family history of high blood pressure Family history of asthma History of fibromyalgia Liver disease Maternal Grandfather Colon cancer Family/Other Breast cancer Social History Household Members: Spouse Household Members Other:: daughter Housing: Apartment Are you a primary healthcare recruiter to a significant other at home: No Do you presently have visiting nurse or other home services: No Alcohol intake: never Patient Tobacco Use Status: Former Tobacco user Tobacco use type: Cigarette Years Smoked: 15 e-Cigarette/Vaping Use: Never Used Second Hand Smoke Exposure: Yes Substance Use Type: Marijuana service: No Current occupational status: disabled Current occupation: right handed Sexual orientation: Straight/Heterosexual Gender identity: Female Cognitive needs: No Hearing needs: No Vision needs: Yes Female Reproductive History Menstrual Age of Menarche: 10 Review of Systems Const Reports daytime sleepiness, Denies excessive sweating, Reports fatigue, Denies fever(s), Reports lethargy, Denies malaise, Denies night sweats, Denies snoring and Denies weight loss Eyes Denies blurry vision and Denies itchy eyes ENT Denies nasal congestion, Denies post nasal drip, Denies sinus pain, Denies sinus pressure and Denies other ( Thrush) Card Denies chest pain, Denies pedal edema, Denies dyspnea, Denies orthopnea and Denies paroxysmal nocturnal dyspnea Resp Denies cough, Denies hemoptysis, Denies excessive phlegm production, Denies dyspnea, Denies snoring and Denies wheezing GI Denies abdominal pain and Denies heartburn Musc Denies myalgias, Denies arthralgias and Denies joint swelling Skin/Breast Denies rash Neuro Denies memory loss and Denies seizure-like activity Psych Denies abnormal sleep pattern, Denies anxiety and Denies memory loss Endo Denies excessive sweating, Reports fatigue and Denies heat intolerance Chuy/Lymph Denies easy bruising Aller/Immun Denies itchy eyes, Denies seasonal rhinorrhea and Denies wheezing Physical Exam Vital Signs: Last Vital Signs Pulse 98 05/01/24 13:31 BP 148/92 H 05/01/24 13:31 Pulse Ox 98 05/01/24 13:31 Oxygen Delivery Method Room Air 05/01/24 13:31 BMI result Body Mass Index 37.6 Const General: no acute distress and alert Nutritional Appearance: obese Orientation/consciousness: Other orientation findings ( oriented) HEENT Head: Yes atraumatic Eyes General: appearance normal, both eyes and all related structures Sclerae: sclerae normal EOM: EOMs intact bilaterally Neck Neck: Yes supple Lymphatic: no lymphadenopathy noted Resp Effort & Inspection: normal respiratory effort and no use of accessory muscles Auscultation: clear to auscultation bilaterally Cardio Rate: regular rate Rhythm: regular rhythm Heart sounds: no gallops, no murmurs and no rubs Skin General skin exam: other ( warm) Extrem General: No clubbing, No cyanosis and No edema Assessment & Plan Assessment & Plan (1) Severe persistent asthma: Code(s): J45.50 - Severe persistent asthma, uncomplicated Category: Medical Plan: Suboptimal control of inhaled bronchodilators. Continue Xolair, restart AirDuo. Continue duo nebs and albuterol MDI (2) Environmental allergies: Code(s): Z91.09 - Other allergy status, other than to drugs and biological substances Category: Medical Plan: Well controlled on Xolair. Continue current regimen. Coding Level of Care Code Est Pt Level 4 (78118) Diagnoses Severe persistent asthma J45.50 Environmental allergies Z91.09
--- OUTSIDE RECORDS SUMMARY | 2024-05-01 16:08 | XMS_ITS | Clinical Summary ---
Author Organization [facility] Address [address] [place] [address], [place] [address] Care Team Providers Care Union Representative Name Role Phone Naomi Bains MD Primary Care Provider Family History Medical History Relation Comments Hypertension [...] Influenza Vaccine (#1) 2023 [place] [address] [facility] MEDICAID [facility] MEDICAID Care Teams Union Representative Relationship Specialty Start Date End Date Naomi Bains MD [address] [place] [id number] PCP - General 03/08/20
--- OUTSIDE RECORDS SUMMARY | 2024-05-01 16:08 | XMS_ITS | Encounter Summary ---
Author Organization [facility] Address [address] [facility] [place] [address] Care Team Providers Care Sound Cutter Name Role Phone Tej Fitch MD Primary Care Provider [phone] Radha Camarillo Primary Care Provider Nikki Bullock Primary Care Provi carlos Naomi Bond MD Primary Care Provider U Tommy Sellers MD Primary Care Provider Joanne vailable Encounter Details Date Type Department Care Team Description 07/10/2012 Elevator Starter Report Medical Records [address] [place] [address] Marcel Arriaga MD Social History Tobacco Use Types Packs/Day Years Used Date Smoking Tobacco: Never Assessed Sex Assigned at Date Recorded Not on file documented as of this encounter Plan of Treatment Not on file documented as of this encounter Visit Diagnoses Not on filedocumented in this encounter Care Teams Sound Cutter Relationship Specialty Start Date End Date Tej Fitch MD [address] [id number] PCP - General 12/12/07 11/03/12 Radha Camarillo [address] [place] [id number] PCP - General Family Practice 11/04/12 11/25/13 Nikki Mayfield FNP [address] [place] [id number] PCP - General Family Practice 11/26/13 05/26/18 Naomi Bains MD [address] [place] [id number] PCP - General Family Practice 05/27/18 06/27/18 Tommy Smith MD [address] [place] [id number] PCP - General Internal Medicine 06/28/18 documented as of this encounter
--- OUTSIDE RECORDS SUMMARY | 2024-05-01 16:08 | XMS_ITS | Clinical Summary ---
Author Organization [facility] Address [address] [facility] [place] [address] Care Team Providers Care Automotive Salesperson Name Role Phone Tommy Smith MD [...] 02/27/2024 SOCIAL NEEDS SCREENING 02/27/2024 Care Teams Automotive Salesperson Relationship Specialty Start Date End Date Tommy Smith MD PCP - General Internal Medicine 06/28/18
--- OUTSIDE RECORDS SUMMARY | 2024-05-01 16:08 | XMS_ITS | Encounter Summary ---
Author Organization [facility] Address [address] [facility] [place] [address] Care Team Providers Care Stonecutter Assistant Name Role Phone Naomi Bains MD Primary Care Provider Tommy Sellers MD Primary Care Provider Joanne vailable Encounter Details Date Type Department Care Team Description 06/10/2018 Release of Information Medical Records [address] [place] [id number] Abstract, Provider Social History Tobacco Use Types [...] on filedocumented in this encounter Care Teams Stonecutter Assistant Relationship Specialty Start Date End Date Naomi Bains MD PCP - General Family Practice 05/27/18 06/27/18 Tommy Smith MD PCP - General Internal Medicine 06/28/18 documented as of this encounter
--- OUTSIDE RECORDS SUMMARY | 2024-05-01 16:08 | XMS_ITS | Encounter Summary ---
Author Organization [facility] Address [address] [facility] [place] [address] Care Team Providers Care Supervisor Electronic Coils Name Role Phone Tommy Smith MD Primary Care Provider Joanne vailable Reason for Visit * Reason Comments E-prescribe Rx Request Encounter Details Date Type Department Care Team Description 08/11/2019 Refill Pulmonology - [place] [address] [facility] [address] [place] [address] Nguyen Morrison MD [address] [place] [address] E-prescribe Rx Request Social History [...] MED LIST AND IS IDENTIFIED BELOW): {MED LIST:03433) Med name: benzonatate (TESSALON) 200 MG capsule Dosage: 200 MG # of tablets: 30 CAP Local pharmacy with request for 30 -day supply Instructions: TAKE 1 CAP BY MOUTH 3 TIMES DAILY NEEDED FOR COUGH Did you check the pharmacy information above?: YES Patients current insurance carrier: Payor: [employer] FFS / Plan: [employer] / Product Type: MEDICAID RISK documented in this encounter Plan of Treatment Not on file documented as of this encounter Visit Diagnoses Diagnosis Moderate persistent asthma without complication Unspecified asthma Cough Allergic rhinitis, unspecified seasonality, unspecified trigger documented in this encounter Care Teams Supervisor Electronic Coils Relationship Specialty Start Date End Date Tommy Smith MD PCP - General Internal Medicine 06/28/18 documented as of this encounter
--- OUTSIDE RECORDS SUMMARY | 2024-05-01 16:08 | XMS_ITS | Encounter Summary ---
Author Organization [facility] Address [address] [facility] [place] [address] Care Team Providers Care Rumper Name Role Phone Tommy Smith MD Primary Care Provider Joanne vailable Reason for Visit * Reason Comments E-prescribe Rx Request Encounter Details Date Type Department Care Team Description 10/07/2020 Refill Pulmonology - [place] [address] [facility] [address] [place] [phone] Nguyen Morrison MD [address] [place] [phone] E-prescribe Rx Request Social History Tobacco Use [...] trigger documented in this encounter Care Teams Rumper Relationship Specialty Start Date End Date Tommy Smith MD PCP - General Internal Medicine 06/28/18 documented as of this encounter
--- OUTSIDE RECORDS SUMMARY | 2024-05-01 16:08 | XMS_ITS | Encounter Summary ---
Author Organization [facility] Address [address] [place] [address] Care Team Providers Care Garage Mechanic Name Role Phone Tommy Smith MD Primary Care Provider Joanne vailable Reason for Visit * Reason Onset Date Comments APPOINTMENT 11/03/2020 Encounter Details Date Type Department Care Team Description 11/03/2020 Telephone Pulmonology - [place] [address] [facility] [address] [place] [address] Tommy Smith MD APPOINTMENT Social History Tobacco Use Types Packs/Day Years Used Date Smoking Tobacco: Former Smokeless Tobacco: Never Alcohol Use Standard Drinks/Week Comments Not Asked 0 (1 standard drink = 0.6 oz pur e alcohol) Sex Assigned at Date Recorded Not on file documented as of this encounter Miscellaneous Notes * Telephone Encounter - Becca Nayak - 11/03/2020 1:24 PM EDT Spoke to patient, last seen in this office was 06/28/2018 (Wil Vargas). She has informed me that she is now seeing another DrAntonia In [place] so does not wish to schedule an appointment here. documented in this encounter Plan of Treatment Not on file documented as of this encounter Visit Diagnoses Not on filedocumented in this encounter Care Teams Garage Mechanic Relationship Specialty Start Date End Date Tommy Smith MD PCP - General Internal Medicine 06/28/18 documented as of this encounter
== END 2024-05-01 14:01 | disposition home or self-care (01) ==
PROVIDERS: PCP Internal Medicine; Visit Provider Internal Medicine Pulmonary Disease
DX: J45.50 Severe persistent asthma, uncomplicated (principal); Z91.09 Other allergy status, other than to drugs and biological substances
CPT/HCPCS: 99214

== ENCOUNTER → 2024-05-01 13:19 | Outpatient (BNVA) | payer OTHER, SELFPAY | PROVIDERS: PCP Internal Medicine; Visit Provider Internal Medicine Pulmonary Disease | DX: J45.50 Severe persistent asthma, uncomplicated (principal); Z91.09 Other allergy status, other than to drugs and biological substances; Z87.891 Personal history of nicotine dependence | CPT/HCPCS: 99212 ==

== ENCOUNTER 2024-05-20 15:34 | Outpatient (AMB) | payer OTHER, SELFPAY ==
[2024-05-20 15:42] VITALS: BP 142/90; PULSE 114; O2SAT 97; BMI 37.8
--- NOTE | 2024-05-20 15:42 | A.OFFVIS_ITS ---
Vital Signs 05/20/24 15:42 Height 5 ft 5 in Weight 227 lb 1.218 oz BMI 37.8 BP 142/90 H Blood Pressure Location Rt brachial Position Sitting Pulse 114 H Pulse Source Pulse Oximeter Pulse Oximetry (%) 97 Oxygen Delivery Method Room Air Intake Visit Reasons: Hypothyroidism Intake Note: Patient present here today for a follow-up on Hypothyroidism: Lipcoat Sprayer Required: No Accompanied by: Self / Same As Patient Allergies pineapple [PINEAPPLE] Allergy (Severe, Verified 05/20/24 15:44) ANAPHYLAXIS adhesive tape Allergy (Intermediate, Verified 05/20/24 15:44) Blister Iodinated Contrast Media [IV Dye, Iodine Containing] Allergy (Intermediate, Verified 05/20/24 15:44) SOB,RASH levofloxacin [From Levaquin] Allergy (Intermediate, Verified 05/20/24 15:44) swelling/rash oxycodone [From Percocet] Allergy (Intermediate, Verified 05/20/24 15:44) rash/SOB aspirin [ASA] Adverse Reaction (Mild, Verified 05/20/24 15:44) UPSET STOMACH Medication List - Last Reconciled 05/20/24 by Irina Beckford MD amlodipine 10 mg PO DAILY atorvastatin (Lipitor) 10 mg PO DAILY baclofen 10 mg PO BID 10 days cholecalciferol (vitamin D3) (Vitamin D3) 50 mcg PO DAILY diphenhydramine HCl (Benadryl Allergy) 25 mg orally one tablet this evening and one tablet tomorrow am; docusate sodium 100 mg PO BID famotidine 20 mg PO BEDTIME PRN fluticasone propion-salmeterol 232-14 mcg/actuation (AirDuo RespiClick) 1 inh inhalation BID hydrochlorothiazide 25 mg PO DAILY ipratropium bromide 2 sprays intranasal TID 30 days ipratropium-albuterol 0.5 mg-3 mg(2.5 mg base)/3 mL 3 mL inhalation Q4-6H PRN levothyroxine (Tirosint) 175 mcg PO DAILY lisinopril 40 mg PO DAILY 90 days lorazepam 1 mg PO ONCE PRN metoprolol tartrate 100 mg PO BID 90 days mupirocin 2% 1 appl topical BID 30 days omalizumab (Xolair) 300 mg (2 mL) subcut Q2W omeprazole 40 mg (2 x 20 mg) PO DAILY ondansetron 4 mg PO Q8H PRN 30 days pyridoxine (vitamin B6) 100 mg PO DAILY topiramate 50 mg PO BID tramadol 50 mg PO Q8H PRN Ventolin HFA 90 mcg/actuation (albuterol sulfate) 2 puffs inhalation Q4-6H PRN 30 days NS HPI Comments Details: 53 YO Female with PMHx HTN, breast cancer in remission who is seen in F/U for postsurgical hypothyroidism after she underwent a total thyroidectomy 12/04/2018 for a multinodular thyroid. HPI from prior visits Surgery was uncomplicated, but the L inferior parathyroid gland did need to be re-implanted. 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 Interval history Has been out of levothyroxine 175 mcg daily for the past 4 months Apparently insurance has not approved her capsule prescription which is why she has been out , per pharmacy she needs a PA and her PCP staff was under the impression she doesnt need PA She couldnt tolerate the tablets in the past due to severe acid reflux and indigestion , she does not get these symptoms with the capsule Currently complaining of severe tiredness, sleepiness, weight gain, constipation ,sometimes loose stools. HAir loss . Physical exam General: sitting comfortably in no acute distress HEENT: normocephalic/atraumatic, Neck: supple, symmetrical Cardiac: normal heart sounds Pulm: normal breath sounds B/L, no added breath sounds Abd: not distended, no tenderness Extremities: no edema, no signs of myxedema Laboratory Tests 03/11/24 11:52 TSH 20.67 H Free T4 0.82 PFSH Medical History Dysphagia Well woman exam Abnormal finding on EKG Hx of flexible sigmoidoscopy Internal derangement of right shoulder Lump of left breast Lump of right breast Lump of axillary tail of right breast Chronic constipation Rotator cuff impingement syndrome of left shoulder Right forearm pain Colitis Hypertensive urgency Rotator cuff impingement syndrome Lateral epicondylitis of both elbows Fall IBS (irritable bowel syndrome) Abdominal bloating Tendinopathy of left rotator cuff History of TIA (transient ischemic attack) Hypercholesterolemia Vitamin D deficiency Multinodular thyroid Pancreatic cyst Thyroid nodule Diarrhea Rectal bleeding Esophageal spasm GERD (gastroesophageal reflux disease) Hypertension Asthma Kidney stones History of migraine headaches Fibromyalgia Allergic rhinitis Sciatic nerve pain Ovarian cyst Hypothyroidism Surgical History History of arthroscopic surgery of shoulder Hx of eye surgery History of breast lump/mass excision Hx of hemorrhoidectomy Hx of tubal ligation History of esophagogastroduodenoscopy (EGD) History of colonoscopy (~11/16/19) H/O: hysterectomy History of thyroidectomy (~11/2018) History of kidney surgery Hx of bilateral breast reduction surgery Hx of appendectomy History of cholecystectomy (~2003) H/O lithotripsy Family History Father Family history of high blood pressure History of high cholesterol Mother History of diabetes mellitus Family history of high blood pressure Family history of asthma History of fibromyalgia Liver disease Maternal Grandfather Colon cancer Family/Other Breast cancer Social History Household Members: Spouse Household Members Other:: daughter Housing: Apartment Are you a primary medical care manager to a significant other at home: No Do you presently have visiting nurse or other home services: No Alcohol intake: never Patient Tobacco Use Status: Former Tobacco user Tobacco use type: Cigarette Years Smoked: 15 e-Cigarette/Vaping Use: Never Used Second Hand Smoke Exposure: Yes Substance Use Type: Marijuana service: No Current occupational status: disabled Current occupation: right handed Sexual orientation: Straight/Heterosexual Gender identity: Female Cognitive needs: No Hearing needs: No Vision needs: Yes Female Reproductive History Menstrual Age of Menarche: 10 Physical Exam Vital Signs: Last Vital Signs Pulse 114 H 05/20/24 15:42 BP 142/90 H 05/20/24 15:42 Pulse Ox 97 05/20/24 15:42 Oxygen Delivery Method Room Air 05/20/24 15:42 BMI result Body Mass Index 37.8 Assessment & Plan Assessment & Plan (1) Post-surgical hypothyroidism: Code(s): E89.0 - Postprocedural hypothyroidism Category: Medical Plan: 53-year-old female with postsurgical hypothyroidism who has been out of her medication for the past 4 months, used to be on levothyroxine 175 mcg previously. She has not tolerated the levothyroxine tablets in the past, due to worsening acid reflux with a history of gastritis and she could not tolerate taking the tablets. She does well with the capsules. Apparently there has been issues with the insurance approval which is why she has been out of her medication. I explained to her that we will try to get PA done as soon as possible. Last set of labs from February 2024 as expected showed TSH elevated at 20. Free T4 0.82. Plan: -represcribed levothyroxine 175 mcg capsule daily -TSH and free T4 to be done in 6 weeks after starting the medication -follow up in 8 weeks Plan See above Orders: Orders Thyroid Stimulating Hormone 6 Weeks E89.0 - Postprocedural hypothyroidism Free T4 (Free Thyroxine) 6 Weeks E89.0 - Postprocedural hypothyroidism Medications: Refilled levothyroxine (Tirosint) 175 mcg PO DAILY 90 caps 3RF E89.0 - Postprocedural hypothyroidism Coding Level of Care Code Est Pt Level 3 (22462) Diagnoses Post-surgical hypothyroidism E89.0
--- OUTSIDE RECORDS SUMMARY | 2024-05-20 19:23 | XMS_ITS | Clinical Summary ---
Author Organization [facility] Facility Address [address] [place] [address], [place] [address] Care Team Providers Care Project Manager Finance Name Role Phone Naomi Bains MD Primary [...] Influenza Vaccine (#1) 2023 [place] [id number] [facility] MEDICAID [facility] MEDICAID Care Teams Project Manager Finance Relationship Specialty Start Date End Date Naomi Bains MD [address] [place] [phone] PCP - General 03/08/20
== END 2024-05-20 16:15 | disposition home or self-care (01) ==
LOC: HO.ENCR 15:35
PROVIDERS: PCP Internal Medicine; Visit Provider Student in an Organized Health Care Education/Training Program
DX: E89.0 Postprocedural hypothyroidism (principal)
CPT/HCPCS: 99213

== ENCOUNTER → 2024-05-20 15:34 | Outpatient (BNVA) | payer OTHER, SELFPAY | PROVIDERS: PCP Internal Medicine; Visit Provider Student in an Organized Health Care Education/Training Program | DX: E89.0 Postprocedural hypothyroidism (principal) | CPT/HCPCS: 99212 ==

== ENCOUNTER 2024-05-21 09:13 | Outpatient (AMB) | payer OTHER, SELFPAY ==
[2024-05-21 09:25] VITALS: BP 144/100; BMI 37.8
--- NOTE | 2024-05-21 09:25 | A.OFFVIS_ITS ---
Vital Signs 05/21/24 09:25 Height 5 ft 5 in Weight 227 lb BMI 37.8 BP 144/100 H Intake Visit Reasons: CODE ENFORCEMENT OFFICER annual exam/DO NOT RS Nuclear Medicine Tech Required: No Information Interpreted: non-clinical & clinical Railroad Police Officer: Railroad Police Officer Present (Keturah DOYLE) Accompanied by: Self / Same As Patient Allergies pineapple [PINEAPPLE] Allergy (Severe, Verified 05/21/24 09:33) ANAPHYLAXIS adhesive tape Allergy (Intermediate, Verified 05/21/24 09:33) Blister Iodinated Contrast Media [IV Dye, Iodine Containing] Allergy (Intermediate, Verified 05/21/24 09:33) SOB,RASH levofloxacin [From Levaquin] Allergy (Intermediate, Verified 05/21/24 09:33) swelling/rash oxycodone [From Percocet] Allergy (Intermediate, Verified 05/21/24 09:33) rash/SOB aspirin [ASA] Adverse Reaction (Mild, Verified 05/21/24 09:33) UPSET STOMACH Post menopausal: Yes HPI Comments Details: Presenting for annual exam. Complaining of pelvic pain more on the left side no associated urinary or GI symptoms no vaginal discharge or bleeding. In addition the patient is complaining of left breast lump of few weeks' duration Last Pap/HPV was negative in 09/14, the patient is status post hysterectomy for endometrial hyperplasia in Last Mammogram was BI-RADS 2 in 03/21 Last Colonoscopy in 11/19 , the recommendation was to repeat in 1 year [facility] Medical History (Updated 05/21/24 @ 09:44 by Giuseppe Garduno MD) Well woman exam Dysphagia Abnormal finding on EKG Hx of flexible sigmoidoscopy Internal derangement of right shoulder Lump of left breast Lump of right breast Lump of axillary tail of right breast Chronic constipation Rotator cuff impingement syndrome of left shoulder Right forearm pain Colitis Hypertensive urgency Rotator cuff impingement syndrome Lateral epicondylitis of both elbows Fall IBS (irritable bowel syndrome) Abdominal bloating Tendinopathy of left rotator cuff History of TIA (transient ischemic attack) Hypercholesterolemia Vitamin D deficiency Multinodular thyroid Pancreatic cyst Thyroid nodule Diarrhea Rectal bleeding Esophageal spasm GERD (gastroesophageal reflux disease) Hypertension Asthma Kidney stones History of migraine headaches Fibromyalgia Allergic rhinitis Sciatic nerve pain Ovarian cyst Hypothyroidism Surgical History History of arthroscopic surgery of shoulder Hx of eye surgery History of breast lump/mass excision Hx of hemorrhoidectomy Hx of tubal ligation History of esophagogastroduodenoscopy (EGD) History of colonoscopy (~11/16/19) H/O: hysterectomy History of thyroidectomy (~11/2018) History of kidney surgery Hx of bilateral breast reduction surgery Hx of appendectomy History of cholecystectomy (~2003) H/O lithotripsy Family History Father Family history of high blood pressure History of high cholesterol Mother History of diabetes mellitus Family history of high blood pressure Family history of asthma History of fibromyalgia Liver disease Maternal Grandfather Colon cancer Family/Other Breast cancer Social History Household Members: Spouse Household Members Other:: daughter Housing: Apartment Are you a primary manager care to a significant other at home: No Do you presently have visiting nurse or other home services: No Alcohol intake: never Patient Tobacco Use Status: Former Tobacco user Tobacco use type: Cigarette Years Smoked: 15 e-Cigarette/Vaping Use: Never Used Second Hand Smoke Exposure: Yes Substance Use Type: Marijuana service: No Current occupational status: disabled Current occupation: right handed Sexual orientation: Straight/Heterosexual Gender identity: Female Cognitive needs: No Hearing needs: No Vision needs: Yes Female Reproductive History Menstrual Age of Menarche: 10 Menopause type: surgical Date of last pap smear: 09/16/19 Date of Mammogram: 03/19/23 Review of Systems Const All systems reviewed & are unremarkable except as noted in HPI and below Card Reports as per HPI and Reports no additional complaints Resp Reports as per HPI and Reports no additional complaints GI Reports as per HPI and Reports no additional complaints Reports as per HPI Physical Exam Vital Signs: BMI result Body Mass Index 37.8 Const General: cooperative, healthy appearing and comfortable Chest Chest palpation & inspection: normal inspection of the chest and normal palpation of entire chest wall Breast/axilla inspection: inspection of breasts abnormal (R breast wnl, L breast 0.5 cm lump tender 3 o'clock 3 cm from the nipple) General: Yes bladder normal to palpation External Female Exam: No lesion Speculum Exam - Vagina: normal appearance of the vagina, normal vaginal discharge and not erythematous Speculum Exam - Cervix: Cervix absent Bimanual exam- vagina & uterus: bladder normal to palpation and uterus absent Bimanual Exam- Adnexa, other: Other (No masses detected) Assessment & Plan Assessment & Plan (1) Well woman exam: Code(s): Z01.419 - Encounter for gynecological examination (general) (routine) without abnormal findings Category: Medical Plan: Co testing not indicated since the patient is status post hysterectomy for benign disease with no history of abnormal Pap smears. Counseled the patient about the recommended dietary allowance of 1200 mg of Calcium & 600 IU of vitamin D. The patient was referred to GI for screening colonoscopy . The patient was instructed to perform monthly self-breast exams and schedule annual exam in a year. All questions answered and the patient verbalized understanding. (2) Pelvic pain: Comment: Bilateral nonobstructing renal calculi with left hydronephrosis Code(s): R10.2 - Pelvic and perineal pain Category: Medical Plan: Pelvic ultrasound ordered. Discussed with the patient the differential diagnosis of pelvic pain including but not limited to adnexal, uterine masses, pelvic infections (PID), GI the (Irritable bowel syndrome, diverticulitis, others), musculoskeletal, myofascial pain abdominal wall , adhesions, endometriosis, psychological and others causes. Will check results and treat accordingly. All questions answered, the patient verbalized understanding. Instructed the patient to schedule an ultrasound and a follow-up appointment in 2 weeks. All questions answered, the patient verbalized understanding and agreed with the plan. (3) Breast lump on left side at 3 o'clock position: Comment: L breast 0.5 cm lump tender 3 o'clock 3 cm from the nipple Code(s): N63.25 - Unspecified lump in the left breast, overlapping quadrants Category: Medical Plan: Discussed with the patient the finding on Breast exam (breast lump) .The differential diagnosis includes but not limited to lump/cyst/pre cancer/cancer or dense breast tissue. The work up includes breast US and diagnostic mammogram and referred the patient for surgical breast consult. Orders: Orders MM tomosynthesis screening BI Today Z12.31 - Encounter for screening mammogram for malignant neoplasm of breast MM tomosynthesis diagnostic BI Today N63.25 - Unspecified lump in the left breast, overlapping quadrants US breast LT limited Today N63.25 - Unspecified lump in the left breast, overlapping quadrants US pelvic and transvaginal Today R10.2 - Pelvic and perineal pain Referrals Gastroenterology Referral Z12.11 - Encounter for screening for malignant neoplasm of colon General Surgery Referral N63.25 - Unspecified lump in the left breast, overlapping quadrants Coding Level of Care Code Est Pt Level 3 (33490) Est Pt Prev Care 40-64y(54842) Diagnoses Well woman exam Z01.419 Pelvic pain R10.2 Breast lump on left side at 3 o'clock position N63.25
--- OUTSIDE RECORDS SUMMARY | 2024-05-21 10:07 | XMS_ITS | Clinical Summary ---
Author Organization [facility] Facility Address [address] [place] [address], [place] [address] Care Team Providers Care Mobility Developer Name Role Phone Naomi Bains MD Primary Care Provider [phone] Family History Medical History Relation Comments Hypertension [...] Influenza Vaccine (#1) [address]23 [place] [id number] [facility] MEDICAID [facility] MEDICAID Care Teams Mobility Developer Relationship Specialty Start Date End Date Naomi Bains MD [address] [place] [phone] PCP - General 03/08/20
== END 2024-05-21 10:06 | disposition home or self-care (01) ==
LOC: HO.HWS 09:14
PROVIDERS: PCP Internal Medicine; Visit Provider Obstetrics & Gynecology
DX: Z01.419 Encounter for gynecological examination (general) (routine) without abnormal findings (principal); R10.2 Pelvic and perineal pain; N63.25 Unspecified lump in the left breast, overlapping quadrants
CPT/HCPCS: 99213; 99396; 99459

== ENCOUNTER → 2024-05-21 09:13 | Outpatient (BNVA) | payer OTHER, SELFPAY | PROVIDERS: PCP Internal Medicine; Visit Provider Obstetrics & Gynecology | DX: Z01.419 Encounter for gynecological examination (general) (routine) without abnormal findings (principal); R10.2 Pelvic and perineal pain; N63.25 Unspecified lump in the left breast, overlapping quadrants | CPT/HCPCS: 99212; 99396; 99459 ==

== ENCOUNTER 2024-06-04 08:18 | Outpatient (REF) | payer OTHER, SELFPAY ==
--- NOTE | ~2024-06-04 | US_ITS ---
EXAMINATION: US KIDNEY BILATERAL HISTORY: N20.0 - Calculus of kidney TECHNIQUE: Real-time grayscale ultrasound imaging of the kidneys was performed and images were reviewed. COMPARISON: Comparison is made with the prior examination dated 10/22/2023. FINDINGS: Right kidney: The right kidney measures 12.9 x 6.3 x 5.4 cm. Renal parenchymal echotexture and thickness are normal. There are no masses. There is fullness of the renal pelvis without hydronephrosis. No calculi are identified. Left Kidney: The left kidney measures 13.4 x 6.6 x 5.6 cm. Renal parenchymal echotexture and thickness are normal. There are no masses. Again seen is mild hydronephrosis. No calculi are identified. Imaging of the urinary bladder demonstrates bilateral ureteral jets. US/US renal BI IMPRESSION: Mild fullness of the right renal pelvis. Mild left hydronephrosis. No calculi are identified. Electronically signed by: Rainer Munson MD 06/04/2024 10:10 AM EDT
--- OUTSIDE RECORDS SUMMARY | 2024-06-04 08:30 | XMS_ITS | Clinical Summary ---
Author Organization [facility] Facility Address [address] [place] [address], [place] [address] Care Team Providers Care Asphalt Tamping Machine Operator Name Role Phone Naomi Bains MD Primary [...] Colorectal Cancer Screening: Sigmoidoscopy 2021 Influenza Vaccine (Season Ended) [address] [place] [address] [facility] MEDICAID [facility] MEDICAID Care Teams Asphalt Tamping Machine Operator Relationship Specialty Start Date End Date Naomi Bains MD [address] [place] [phone] PCP - General 03/08/20
== END 2024-06-04 08:19 | disposition home or self-care (01) ==
LOC: HO.US 08:18
PROVIDERS: PCP Internal Medicine; Visit Provider Urology
DX: N20.0 Calculus of kidney (principal)
CPT/HCPCS: 76775

== ENCOUNTER → 2024-06-04 08:26 | Outpatient (BNV) | payer OTHER, SELFPAY | PROVIDERS: PCP Internal Medicine; Visit Provider Radiology Diagnostic Radiology | DX: N13.30 Unspecified hydronephrosis (principal) | CPT/HCPCS: 76775 ==

== ENCOUNTER 2024-06-13 15:42 | Outpatient (AMB) | payer OTHER, SELFPAY ==
--- NOTE | 2024-06-13 14:23 | A.OFFVIS_ITS ---
Intake Visit Reasons: ESWL, follow up/KUB Intake Note: Patient is Present for a Follow Up/ESWL/KUB Urology Medication: Vitamin B6 Antibiotic Allergies: Levofloxacin Blood Thinners: None Newspaper Or Periodical Editor Required: No Accompanied by: Self / Same As Patient Allergies pineapple [PINEAPPLE] Allergy (Severe, Verified 06/13/24 16:10) ANAPHYLAXIS adhesive tape Allergy (Intermediate, Verified 06/13/24 16:10) Blister Iodinated Contrast Media [IV Dye, Iodine Containing] Allergy (Intermediate, Verified 06/13/24 16:10) SOB,RASH levofloxacin [From Levaquin] Allergy (Intermediate, Verified 06/13/24 16:10) swelling/rash oxycodone [From Percocet] Allergy (Intermediate, Verified 06/13/24 16:10) rash/SOB aspirin [ASA] Adverse Reaction (Mild, Verified 06/13/24 16:10) UPSET STOMACH HPI Comments Details: 06/13/24-- s/p ESWL--04/30/24 for approximately 9x9mm left lower pole stone renal US 06/04/24-- no renal calculi History of Present Illness Urinary Symptoms Review Results - Ultrasound indicates successful stone passage Discussion Notes We discussed the post-procedural state, confirming that the ultrasound shows successful passage of the stones, as expected. I explained that while medical evidence confirms progress, she might still experience symptoms such as mild hematuria. We plan for a 24-hour urine collection to determine any modifications needed in her diet to prevent future stones. During her follow-up, it is important to bring in any stones she might pass for further analysis. We also discussed the possibility that some stones might still be in the bladder, continuing her symptoms. I will see her again in about 10 weeks for re- evaluation and to plan further management based on additional data from the urine collection and stone analysis. We reviewed the urine collection process, including [employer] pickup services and written documentation requirements at length to ensure compliance. Plan For the management of nephrolithiasis, I will continue observing the resolution of symptoms, particularly hematuria, which should subside with time. A 24-hour urine collection will help identify dietary modifications needed to prevent futu re stones. During her follow-up, the analysis of any passed stones she collects will provide insights into their characteristics. Evaluating the possibility of stones in the bladder is part of the plan. A re-evaluation in ten weeks will help assess her progress and adjust the treatment plan accordingly. Patient Instructions Patient was informed and verbally consented to the use of an ambient scribe for clinic note documentation during this visit. 03/03/24--Gloria is being followed for kidney stones. She had left ESWL on 04/04/2023. LV 05/31/23 --she was referred to Nephrology Renal US 10/22/23-- RIGHT KIDNEY: No focal parenchymal lesions or hydronephrosis. 1.0 cm lower pole nonobstructive calculus. LEFT KIDNEY: mild lower pole caliectasis versus a parapelvic cyst which appears similar to prior. 7 mm nonobstructing calculus in the mid kidney. 05/31/2023--Gloria is being followed for kidney stones. She had left ESWL on 04/04/2023. She presents for telehealth visit. Video attempted. The patient states she still gets intermittent pain in the left kidney area. She also states her urine appears dark and she thinks it may have blood. The patient is concerned as to her continuing to make kidney stones. She states she is being evaluated for a pancreatic problem. I have discussed recent renal ultrasound and CT scan results. Renal ultrasound 05/14/2023--3 mm left kidney stone, 5mm right kidney stone. CT scan 05/10/2023 bilateral punctate stones largest 4 mm right kidney. Plan discussed will start vitamin B6 100 mg daily, refer to nephrology for workup due to kidney stones. In regards to her complains regarding her urine I will have the nurses reach out to her to have her leave a urine specimen at the lab so that I can evaluate this. We will monitor kidneys renal ultrasound in 6 months. 03/07/2023--Gloria is a 52-year-old female who is here for evaluation for kidney stones. The patient states that she has had history of kidney stones and has had prior kidney stone treatments including shockwave lithotripsy. Past Medical history includes asthma, she is followed by Pulmonary, history of thyroid cancer status post thyroid removal, bowel condition. The patient complains of left kidney pain, denies blood in the urine. I have reviewed chart, imagin12/21/22-CTAP--left kidney stones and right punctate kidney stone 02/12/23- Renal US --Left kidney stones 4-5 mm I have discussed diet modification to increase fluids, low sodium and low oxalate diet, diet sheet provided. Discussed Left ESWL--risks to include but not limited to, blood in the urine, bruising to the skin, kidney hematoma, possible need for another procedure if a stone fragment obstructs the ureter while passing, possible need to repeat procedure if stone is not completely fragmented. UA- negative. Plan:Left ESWL. Needs pulmonary clearance prior 05/31/2023--Plan discussed will start vitamin B6 100 mg daily, refer to nephrology for workup due to kidney stones. In regards to her complains regarding her urine I will have the nurses reach out to her to have her leave a urine specimen at the lab so that I can evaluate this. We will monitor kidneys renal ultrasound in 6 months. [facility] Medical History Well woman exam Dysphagia Abnormal finding on EKG Hx of flexible sigmoidoscopy Internal derangement of right shoulder Lump of left breast Lump of right breast Lump of axillary tail of right breast Chronic constipation Rotator cuff impingement syndrome of left shoulder Right forearm pain Colitis Hypertensive urgency Rotator cuff impingement syndrome Lateral epicondylitis of both elbows Fall IBS (irritable bowel syndrome) Abdominal bloating Tendinopathy of left rotator cuff History of TIA (transient ischemic attack) Hypercholesterolemia Vitamin D deficiency Multinodular thyroid Pancreatic cyst Thyroid nodule Diarrhea Rectal bleeding Esophageal spasm GERD (gastroesophageal reflux disease) Hypertension Asthma Kidney stones History of migraine headaches Fibromyalgia Allergic rhinitis Sciatic nerve pain Ovarian cyst Hypothyroidism Surgical History History of arthroscopic surgery of shoulder Hx of eye surgery History of breast lump/mass excision Hx of hemorrhoidectomy Hx of tubal ligation History of esophagogastroduodenoscopy (EGD) History of colonoscopy (~11/16/19) H/O: hysterectomy History of thyroidectomy (~11/2018) History of kidney surgery Hx of bilateral breast reduction surgery Hx of appendectomy History of cholecystectomy (~2003) H/O lithotripsy Family History Father Family history of high blood pressure History of high cholesterol Mother History of diabetes mellitus Family history of high blood pressure Family history of asthma History of fibromyalgia Liver disease Maternal Grandfather Colon cancer Family/Other Breast cancer Social History Household Members: Spouse Household Members Other:: daughter Housing: Apartment Are you a primary manager home healthcare to a significant other at home: No Do you presently have visiting nurse or other home services: No Alcohol intake: never Patient Tobacco Use Status: Former Tobacco user Tobacco use type: Cigarette Years Smoked: 15 e-Cigarette/Vaping Use: Never Used Second Hand Smoke Exposure: Yes Substance Use Type: Marijuana service: No Current occupational status: disabled Current occupation: right handed Sexual orientation: Straight/Heterosexual Gender identity: Female Cognitive needs: No Hearing needs: No Vision needs: Yes Female Reproductive History Menstrual Age of Menarche: 10 Results AMB Urinalysis, Automated UA Leukoctes 0 Frederick/uL Last Edit by Nandini Herrera on 06/13/24 16:38 UA Nitrite Negative Last Edit by Nandini Herrera on 06/13/24 16:38 UA Urobilinogen 0.2 mg/dL Last Edit by Nandini Herrera on 06/13/24 16:38 UA Protein 15 mg/dL Last Edit by Nandini Herrera on 06/13/24 16:38 UA pH 5.5 Last Edit by Nandini Herrera on 06/13/24 16:38 UA Blood 200 Jose Maria/uL Last Edit by Nandini Herrera on 06/13/24 16:38 UA Specific Grawn 1.020 Last Edit by Nandini Herrera on 06/13/24 16:38 UA Ketone Negative Last Edit by Nandini Herrera on 06/13/24 16:38 UA Bilirubin 0 mg/dL Last Edit by Nandini Herrera on 06/13/24 16:38 UA Glucose 0 mg/dL Last Edit by Nandini Herrera on 06/13/24 16:38 Results Reviewed Results Reviewed: Date of Service: 06/04/24 EXAMINATION: US KIDNEY BILATERAL HISTORY: N20.0 - Calculus of kidney TECHNIQUE: Real-time grayscale ultrasound imaging of the kidneys was performed and images were reviewed. COMPARISON: Comparison is made with the prior examination dated 10/22/2023. FINDINGS: Right kidney: The right kidney measures 12.9 x 6.3 x 5.4 cm. Renal parenchymal echotexture and thickness are normal. There are no masses. There is fullness of the renal pelvis without hydronephrosis. No calculi are identified. Left Kidney: The left kidney measures 13.4 x 6.6 x 5.6 cm. Renal parenchymal echotexture and thickness are normal. There are no masses. Again seen is mild hydronephrosis. No calculi are identified. Imaging of the urinary bladder demonstrates bilateral ureteral jets. IMPRESSION: Mild fullness of the right renal pelvis. Mild left hydronephrosis. No calculi are identified. Date of Service: 10/22/23 US BILATERAL KIDNEYS CLINICAL INFORMATION: Calculus of kidney. COMPARISON: Renal ultrasound 05/14/2023 TECHNIQUE: Real-time imaging of the kidneys. FINDINGS: RIGHT KIDNEY: 12.9 x 5.8 x 7.1 cm (SAG x AP x TRV). The kidney is normal in size, contour, and echogenicity. Renal cortical thickness is normal. No focal parenchymal lesions or hydronephrosis. 1.0 cm lower pole nonobstructive calculus. LEFT KIDNEY: 12.2 x 6.1 x 5.0 cm (SAG x AP x TRV). The kidney is normal in size, contour, and echogenicity. Renal cortical thickness is normal. There is mild lower pole caliectasis versus a parapelvic cyst which appears similar to prior. 7 mm nonobstructing calculus in the mid kidney. IMPRESSION: Nonobstructing bilateral renal calculi. Mild left lower pole caliectasis versus a parapelvic cyst appears similar to prior. Date of Service: 05/14/23 EXAMINATION: US RETROPERITONEAL LIMITED (RENAL ONLY) CLINICAL INFORMATION: Calculus of kidney. COMPARISON: CT abdomen and pelvis 05/10/2023. X-ray KUB 04/04/2023. Renal ultrasound 02/12/2023 and 08/08/2020. MRI abdomen 02/14/2018. TECHNIQUE: Real-time imaging of the kidneys. FINDINGS: RIGHT KIDNEY: 12.6 x 4.8 x 5.7 cm (SAG x AP x TRV). The kidney is normal in size, contour, and echogenicity. Renal cortical thickness is normal. No focal parenchymal lesions. Nonobstructing 5 mm stone. LEFT KIDNEY: 11.7 x 5.7 x 4.7 cm (SAG x AP x TRV). The kidney is normal in size, contour, and echogenicity. Renal cortical thickness is normal. No focal parenchymal lesions. Mild hydronephrosis. No proximal obstructing stone. Nonobstructing 3 mm stone is noted. IMPRESSION: * Mild left hydronephrosis. No proximal obstructing stone. * Bilateral nonobstructing nephrolithiasis. Date of Service: 05/10/23 EXAMINATION: CT ABDOMEN AND PELVIS WITHOUT CONTRAST CLINICAL INFORMATION: Abdominal pain and distention. COMPARISON: None available. TECHNIQUE: Multidetector volumetric imaging was performed from the superior aspect of the liver through the pubic symphysis. Sagittal and coronal reformatted images were obtained on the technologist's workstation. This CT examination was performed using dose optimization techniques as appropriate, variously including the following: *Automated exposure control *Adjustment of mA and/or kV according to patient size (this includes techniques or standardized protocols for targeted exams where dose is matched to indication/reason for exam; i.e. extremities or head) *Use of iterative reconstruction technique DLP: 862 mGy-cm FINDINGS: LUNG BASES: The visualized lung bases are unremarkable. LIVER, GALLBLADDER, AND BILIARY TREE: The liver is normal in size, shape, and attenuation. No focal hepatic lesion or biliary ductal dilatation is present. There has been a prior cholecystectomy. PANCREAS: Unremarkable. SPLEEN: Unremarkable. ADRENAL GLANDS: Unremarkable. KIDNEYS AND URETERS: The kidneys are normal in size, shape, and attenuation. There are scattered bilateral renal calculi measuring up to 5 mm lower pole right kidney. There is no hydronephrosis. BLADDER: Unremarkable. GASTROINTESTINAL TRACT: There is a small hiatal hernia. The large and small bowel are within normal limits. The appendix is not seen. ABDOMINAL WALL: No significant hernia is appreciated. LYMPH NODES: Normal. VASCULAR: Unremarkable. PELVIC VISCERA: Unremarkable. OSSEOUS STRUCTURES: There is diffuse thoracolumbar disc degenerative change with prominent posterior osteophytes of the lower thoracic spine with spinal canal narrowing at multiple levels.. IMPRESSION: 1. No acute intra-abdominal abnormality. 2. Bilateral nonobstructing renal calculi. 3. Diffuse thoracolumbar disc degenerative change with prominent posterior osteophytes of the lower thoracic spine with spinal canal narrowing at multiple levels. Assessment & Plan Assessment & Plan Orders: Orders AMB Urinalysis Automated Today Z13.9 - Encounter for screening, unspecified Coding
--- OUTSIDE RECORDS SUMMARY | 2024-06-13 15:45 | XMS_ITS | Clinical Summary ---
Author Organization [facility] Facility Address [address] [place] [address] Care Team Providers Care Strategic Debriefing Specialist Name Role Phone Naomi Bains MD Primary Care Provider [phone] Family History Medical History Relation Comments Hypertension [...] Last Done Comments Breast Cancer Screening 1972 Hepatitis B Vaccine (1 of 3 - 19+ 3-dose series) 08/29 Pneumococcal Vaccine: 50+ Years (1 of 2 - PCV) 992 Colorectal Cancer Screening: Annual FOBT 2021 Colorectal Cancer Screening: Colonoscopy 2021 Colorectal Cancer Screening: Sigmoidoscopy 2021 Influenza Vaccine (Season Ended) [address] [place] [id number] [facility] Medicaid [facility] Medicaid Care Teams Strategic Debriefing Specialist Relationship Specialty Start Date End Date Naomi Bains MD [address] [place] [address] PCP - General 03/08/20
== END 2024-06-13 16:26 | disposition home or self-care (01) ==
LOC: HO.HUSH 15:43
PROVIDERS: PCP Internal Medicine; Visit Provider Urology
DX: Z13.9 Encounter for screening, unspecified (principal)

== ENCOUNTER → 2024-06-13 15:42 | Outpatient (BNVA) | payer OTHER, SELFPAY | PROVIDERS: PCP Internal Medicine; Visit Provider Urology | DX: N20.0 Calculus of kidney (principal); Z98.890 Other specified postprocedural states | CPT/HCPCS: 81003; 99212 ==

== ENCOUNTER 2024-06-19 13:19 | Outpatient (AMB) | payer OTHER, SELFPAY ==
[2024-06-19 13:32] VITALS: BP 148/87; PULSE 107; O2SAT 100; BMI 36.6
--- NOTE | 2024-06-19 13:32 | A.OFFVIS_ITS ---
Vital Signs 06/19/24 13:32 Height 5 ft 5 in Weight 220 lb BMI 36.6 BP 148/87 H Blood Pressure Location Lt brachial Position Sitting Pulse 107 H Pulse Source Doppler Pulse Oximetry (%) 100 Oxygen Delivery Method Room Air Intake Visit Reasons: asthma Allergies pineapple [PINEAPPLE] Allergy (Severe, Verified 06/19/24 13:37) ANAPHYLAXIS adhesive tape Allergy (Intermediate, Verified 06/19/24 13:37) Blister Iodinated Contrast Media [IV Dye, Iodine Containing] Allergy (Intermediate, Verified 06/19/24 13:37) SOB,RASH levofloxacin [From Levaquin] Allergy (Intermediate, Verified 06/19/24 13:37) swelling/rash oxycodone [From Percocet] Allergy (Intermediate, Verified 06/19/24 13:37) rash/SOB aspirin [ASA] Adverse Reaction (Mild, Verified 06/19/24 13:37) UPSET STOMACH HPI HPI asthma: Details: 53-year-old lady with underlying severe persistent allergic asthma and environmental allergies. She has been using Xolair, however recently she was not able to obtain her AirDuo and her symptom control suboptimal. Though, she denies acute exacerbations. Patient also complains of underlying obstructive sleep apnea symptoms and is interested in further evaluation. [facility] Medical History Well woman exam Dysphagia Abnormal finding on EKG Hx of flexible sigmoidoscopy Internal derangement of right shoulder Lump of left breast Lump of right breast Lump of axillary tail of right breast Chronic constipation Rotator cuff impingement syndrome of left shoulder Right forearm pain Colitis Hypertensive urgency Rotator cuff impingement syndrome Lateral epicondylitis of both elbows Fall IBS (irritable bowel syndrome) Abdominal bloating Tendinopathy of left rotator cuff History of TIA (transient ischemic attack) Hypercholesterolemia Vitamin D deficiency Multinodular thyroid Pancreatic cyst Thyroid nodule Diarrhea Rectal bleeding Esophageal spasm GERD (gastroesophageal reflux disease) Hypertension Asthma Kidney stones History of migraine headaches Fibromyalgia Allergic rhinitis Sciatic nerve pain Ovarian cyst Hypothyroidism Surgical History History of arthroscopic surgery of shoulder Hx of eye surgery History of breast lump/mass excision Hx of hemorrhoidectomy Hx of tubal ligation History of esophagogastroduodenoscopy (EGD) History of colonoscopy (~11/16/19) H/O: hysterectomy History of thyroidectomy (~11/2018) History of kidney surgery Hx of bilateral breast reduction surgery Hx of appendectomy History of cholecystectomy (~2003) H/O lithotripsy Family History Father Family history of high blood pressure History of high cholesterol Mother History of diabetes mellitus Family history of high blood pressure Family history of asthma History of fibromyalgia Liver disease Maternal Grandfather Colon cancer Family/Other Breast cancer Social History Household Members: Spouse Household Members Other:: daughter Housing: Apartment Are you a primary rn progressive care unit to a significant other at home: No Do you presently have visiting nurse or other home services: No Alcohol intake: never Patient Tobacco Use Status: Former Tobacco user Tobacco use type: Cigarette Years Smoked: 15 e-Cigarette/Vaping Use: Never Used Second Hand Smoke Exposure: Yes Substance Use Type: Marijuana service: No Current occupational status: disabled Current occupation: right handed Sexual orientation: Straight/Heterosexual Gender identity: Female Cognitive needs: No Hearing needs: No Vision needs: Yes Female Reproductive History Menstrual Age of Menarche: 10 Review of Systems Const Denies daytime sleepiness, Denies excessive sweating, Denies fatigue, Denies fever(s), Denies lethargy, Denies malaise, Denies night sweats, Denies snoring and Denies weight loss Eyes Denies blurry vision and Denies itchy eyes ENT Denies nasal congestion, Denies post nasal drip, Denies sinus pain, Denies sinus pressure and Denies other ( Thrush) Card Denies chest pain, Denies pedal edema, Denies dyspnea, Denies orthopnea and Denies paroxysmal nocturnal dyspnea Resp Reports cough, Denies hemoptysis, Denies excessive phlegm production, Denies dyspnea, Denies snoring and Denies wheezing GI Denies abdominal pain and Denies heartburn Musc Denies myalgias, Denies arthralgias and Denies joint swelling Skin/Breast Denies rash Neuro Denies memory loss and Denies seizure-like activity Psych Denies abnormal sleep pattern, Denies anxiety and Denies memory loss Endo Denies excessive sweating, Denies fatigue and Denies heat intolerance Chuy/Lymph Denies easy bruising Aller/Immun Denies itchy eyes, Denies seasonal rhinorrhea and Denies wheezing Physical Exam Vital Signs: Last Vital Signs Pulse 107 H 06/19/24 13:32 BP 148/87 H 06/19/24 13:32 Pulse Ox 100 06/19/24 13:32 Oxygen Delivery Method Room Air 06/19/24 13:32 BMI result Body Mass Index 36.6 Const General: no acute distress and alert Nutritional Appearance: obese Orientation/consciousness: Other orientation findings ( oriented) HEENT Head: Yes atraumatic Eyes General: appearance normal, both eyes and all related structures Sclerae: sclerae normal EOM: EOMs intact bilaterally Neck Neck: Yes supple Lymphatic: no lymphadenopathy noted Resp Effort & Inspection: normal respiratory effort and no use of accessory muscles Auscultation: clear to auscultation bilaterally Cardio Rate: regular rate Rhythm: regular rhythm Heart sounds: no gallops, no murmurs and no rubs Skin General skin exam: other ( warm) Extrem General: No clubbing, No cyanosis and No edema Assessment & Plan Assessment & Plan (1) JULISA (obstructive sleep apnea): Code(s): G47.33 - Obstructive sleep apnea (adult) (pediatric) Category: Medical Plan: Unrestful sleep, fatigue, daytime somnolence. Hoffman Sleepiness Scale score of 15. Will obtain home sleep study. (2) Severe persistent asthma: Code(s): J45.50 - Severe persistent asthma, uncomplicated Category: Medical Plan: Suboptimal control as patient was not able to obtain AirDuo, will switch to Symbicort. Continue Xolair, duo nebs, and albuterol MDI. (3) Environmental allergies: Code(s): Z91.09 - Other allergy status, other than to drugs and biological substances Category: Medical Plan: Significantly improved control on Xolair. Continue current regimen. Orders: Orders RT home sleep study 07/19/24 G47.33 - Obstructive sleep apnea (adult) (pediatric) Medications: New budesonide-formoterol 160-4.5 mcg/actuation (Symbicort) 2 puffs inhalation BID 10.2 grams 6RF Discontinued fluticasone propion-salmeterol 232-14 mcg/actuation (AirDuo RespiClick) Discontinued Reason: Doctor's Order 1 inh inhalation BID 1 ea 6RF Coding Level of Care Code Est Pt Level 4 (38731) Complex EM visit Add On G2211 Diagnoses JULISA (obstructive sleep apnea) G47.33 Severe persistent asthma J45.50 Environmental allergies Z91.09
--- OUTSIDE RECORDS SUMMARY | 2024-06-19 15:40 | XMS_ITS | Encounter Summary ---
Author Organization [facility] Address [address] [facility] [place] [address] Care Team Providers Care Public Interviewer Name Role Phone Naomi Bains MD Primary Care Provider Tommy Sellers MD Primary Care Provider Joanne vailable Encounter Details Date Type Department Care Team Description 06/10/2018 Release of Information Medical Records [address] [place] [id number] Abstract, Provider Social History Tobacco Use Types [...] on filedocumented in this encounter Care Teams Public Interviewer Relationship Specialty Start Date End Date Naomi Bains MD PCP - General Family Practice 05/27/18 06/27/18 Tommy Smith MD PCP - General Internal Medicine 06/28/18 documented as of this encounter
--- OUTSIDE RECORDS SUMMARY | 2024-06-19 15:40 | XMS_ITS | Encounter Summary ---
Author Organization [facility] Address [address] [place] [address] Care Team Providers Care Heel Dipper Name Role Phone Tommy Smith MD Primary Care Provider Joanne vailable Reason for Visit * Reason Onset Date Comments APPOINTMENT 02/05/2019 Encounter Details Date Type Department Care Team Description 02/05/2019 Telephone Internal Medicine - [address], [address] [place] [address] Tommy Smith MD APPOINTMENT Social History Tobacco [...] on filedocumented in this encounter Care Teams Heel Dipper Relationship Specialty Start Date End Date Tommy Smith MD PCP - General Internal Medicine 06/28/18 documented as of this encounter
--- OUTSIDE RECORDS SUMMARY | 2024-06-19 15:40 | XMS_ITS | Clinical Summary ---
Author Organization [facility] Address [address] [facility] [place] [address] Care Team Providers Care Efficiency Analyst Name Role Phone Tommy Smith MD Primary [...] 2022 SHINGLES VACCINE (1 of 2) 2022 BMI CHECK/ADVISE 02/27/2024 06/28/2018, 06/05/2018 DEPRESSION SCREENING/FOLLOWUP 02/27/2024 SOCIAL NEEDS SCREENING 02/27/2024 INFLUENZA (Season Ended) 2024 Care Teams Efficiency Analyst Relationship Specialty Start Date End Date Tommy Smith MD PCP - General Internal Medicine 06/28/18
--- OUTSIDE RECORDS SUMMARY | 2024-06-19 15:40 | XMS_ITS | Clinical Summary ---
Author Organization [facility] Facility Address [address] [place] [address] Care Team Providers Care Photographer Aerial Name Role Phone Naomi Bains MD Primary [...] Influenza Vaccine (Season Ended) [address] [place] [id number] [facility] Medicaid [facility] Medicaid Care Teams Photographer Aerial Relationship Specialty Start Date End Date Naomi Bains MD [address] [place] [address] PCP - General 03/08/20
--- OUTSIDE RECORDS SUMMARY | 2024-06-19 15:40 | XMS_ITS | Encounter Summary ---
Author Organization [facility] Address [address] [place] [address] Care Team Providers Care Lay Up Operator Name Role Phone Tommy Smith MD Primary Care Provider Joanne vailable Reason for Visit * Reason Comments E-prescribe Rx Request Encounter Details Date Type Department Care Team Description 08/11/2019 Refill Pulmonology - [place] [address] [facility] [address] [place] [phone] Wil Vargas PA-C [address] [facility] [address] [place] [phone] E-prescribe Rx Request Social History Tobacco Use [...] Sabrina- 06/28/18 Next- 08/28/[address] Fuentes. * Telephone Encounter - Garima Uriarte - [...] NO Patients current insurance carrier is: Payor: [employer] FFS / Plan: [employer] / Product Type: MEDICAID RISK * Telephone [...] trigger documented in this encounter Care Teams Lay Up Operator Relationship Specialty Start Date End Date Tommy Smith MD PCP - General Internal Medicine 06/28/18 documented as of this encounter
--- OUTSIDE RECORDS SUMMARY | 2024-06-19 15:40 | XMS_ITS | Encounter Summary ---
Author Organization [facility] Address [address] [facility] [address] Care Team Providers Care Sofa Inspector Name Role Phone Tej Fitch MD Primary Care Provider [phone] Radha Camarillo Primary Care Provider Nikki Bullock Primary Care Provi carlos Naomi Bond MD Primary Care Provider U Tommy Sellers MD Primary Care Provider Joanne vailable Encounter Details Date Type Department Care Team Description 07/10/2012 Liner Checker Report Medical Records [address] [place] [address] Marcel Arriaga MD Social History Tobacco Use Types Packs/Day Years Used Date Smoking Tobacco: Never Assessed Sex Assigned at Date Recorded Not on file documented as of this encounter Plan of Treatment Not on file documented as of this encounter Visit Diagnoses Not on filedocumented in this encounter Care Teams Sofa Inspector Relationship Specialty Start Date End Date Tej Fitch MD [address] [phone] PCP - General 12/12/07 11/03/12 Radha Camarillo [address] [place] [address] PCP - General Family Practice 11/04/12 11/25/13 Nikki Mayfield FNP [address] [place] [address] PCP - General Family Practice 11/26/13 05/26/18 Naomi Bains MD [address] [place] [address] PCP - General Family Practice 05/27/18 06/27/18 Tommy Smith MD [address] [place] [address] PCP - General Internal Medicine 06/28/18 documented as of this encounter
--- OUTSIDE RECORDS SUMMARY | 2024-06-19 15:40 | XMS_ITS | Encounter Summary ---
Author Organization [facility] Address [address] [place] [address] Care Team Providers Care Driller And Broacher Name Role Phone Tommy Smith MD Primary Care Provider Joanne vailable Reason for Visit * Reason Onset Date Comments APPOINTMENT 11/03/2020 Encounter Details Date Type Department Care Team Description 11/03/2020 Telephone Pulmonology - [place] [address] [facility] [address] [place] [address] Tommy Smith MD APPOINTMENT Social [...] she is now seeing another DrAntonia In [place] so does not wish to schedule an appointment here. documented in this encounter Plan of Treatment Not on file documented as of this encounter Visit Diagnoses Not on filedocumented in this encounter Care Teams Driller And Broacher Relationship Specialty Start Date End Date Tommy Smith MD PCP - General Internal Medicine 06/28/18 documented as of this encounter
--- OUTSIDE RECORDS SUMMARY | 2024-06-19 15:40 | XMS_ITS | Encounter Summary ---
Author Organization [facility] Address [address] [facility] [place] [address] Care Team Providers Care Electronic Train Control Technician Name Role Phone Tommy Smith MD Primary Care Provider Joanne vailable Reason for Visit * Reason Comments E-prescribe Rx Request Encounter Details Date Type Department Care Team Description 09/14/2020 Refill Pulmonology - [place] [address] [facility] [address] [place] [phone] Nguyen Morrison MD [address] [place] [phone] E-prescribe Rx Request Social History Tobacco Use [...] trigger documented in this encounter Care Teams Electronic Train Control Technician Relationship Specialty Start Date End Date Tommy Smith MD PCP - General Internal Medicine 06/28/18 documented as of this encounter
--- OUTSIDE RECORDS SUMMARY | 2024-06-19 15:40 | XMS_ITS | Encounter Summary ---
Author Organization [facility] Address [address] [place] [address] Care Team Providers Care Oracle Manufacturing Consultant Name Role Phone Tommy Smith MD Primary Care Provider Joanne vailable Reason for Visit * Reason Comments E-prescribe Rx Request Encounter Details Date Type Department Care Team Description 09/12/2020 Refill Pulmonology - [place] [address] [facility] [address] [place] [phone] Nguyen Morrison MD [address] [place] [phone] E-prescribe Rx Request Social History Tobacco Use [...] she is now seeing a DrAntonia In [place] and does not wish to schedule here. (THE MEDICATION REQUESTED IS ON THE MED LIST ABOVE) All of the medications requested were on the CURRENT MEDS list Did you check the Pharmacy information above?: YES Patient wants: 30 -day supply Is this a mail order prescription request ? NO Patients current insurance carrier is: Payor: [employer] FFS / Plan: [employer] / Product Type: MEDICAID RISK documented in this encounter Plan of Treatment Not on file documented as of this encounter Visit Diagnoses Diagnosis Moderate persistent asthma without complication Unspecified asthma Cough Allergic rhinitis, unspecified seasonality, unspecified trigger documented in this encounter Care Teams Oracle Manufacturing Consultant Relationship Specialty Start Date End Date Tommy Smith MD PCP - General Internal Medicine 06/28/18 documented as of this encounter
== END 2024-06-19 13:52 | disposition home or self-care (01) ==
LOC: HO.HPS 13:19
PROVIDERS: PCP Internal Medicine; Visit Provider Internal Medicine Pulmonary Disease
DX: G47.33 Obstructive sleep apnea (adult) (pediatric) (principal); J45.50 Severe persistent asthma, uncomplicated; Z91.09 Other allergy status, other than to drugs and biological substances
CPT/HCPCS: 99214; G2211

== ENCOUNTER → 2024-06-19 13:19 | Outpatient (BNVA) | payer OTHER, SELFPAY | PROVIDERS: PCP Internal Medicine; Visit Provider Internal Medicine Pulmonary Disease | DX: G47.33 Obstructive sleep apnea (adult) (pediatric) (principal); J45.50 Severe persistent asthma, uncomplicated; Z87.891 Personal history of nicotine dependence; Z91.09 Other allergy status, other than to drugs and biological substances | CPT/HCPCS: 99212 ==

== ENCOUNTER 2024-06-23 10:37 | Outpatient (AMB) | payer OTHER, SELFPAY ==
--- NOTE | 2024-06-23 10:47 | A.OFFPC_ITS ---
Vital Signs 3 06/23/24 10:55 Height 5 ft 5 in Weight 218 lb BMI 36.3 BP 138/86 Blood Pressure Location Lt brachial Position Sitting Intake Visit Reasons: f/u hypothyroid Intake Note: Patient here for a follow up Hypothyroid Screen Roller Required: No Accompanied by: Self / Same As Patient Allergies pineapple [PINEAPPLE] Allergy (Severe, Verified 06/23/24 11:17) ANAPHYLAXIS adhesive tape Allergy (Intermediate, Verified 06/23/24 11:17) Blister Iodinated Contrast Media [IV Dye, Iodine Containing] Allergy (Intermediate, Verified 06/23/24 11:17) SOB,RASH levofloxacin [From Levaquin] Allergy (Intermediate, Verified 06/23/24 11:17) swelling/rash oxycodone [From Percocet] Allergy (Intermediate, Verified 06/23/24 11:17) rash/SOB aspirin [ASA] Adverse Reaction (Mild, Verified 06/23/24 11:17) UPSET STOMACH Medication List - Last Reconciled 06/23/24 by Donis Barron PA-C amlodipine 10 mg PO DAILY atorvastatin (Lipitor) 10 mg PO DAILY budesonide-formoterol 160-4.5 mcg/actuation (Symbicort) 2 puffs inhalation BID cholecalciferol (vitamin D3) (Vitamin D3) 50 mcg PO DAILY diphenhydramine HCl (Benadryl Allergy) 25 mg orally one tablet this evening and one tablet tomorrow am; docusate sodium 100 mg PO BID famotidine 20 mg PO BEDTIME PRN hydrochlorothiazide 25 mg PO DAILY ipratropium bromide 2 sprays intranasal TID 30 days ipratropium-albuterol 0.5 mg-3 mg(2.5 mg base)/3 mL 3 mL inhalation Q4-6H PRN levothyroxine (Tirosint) 175 mcg PO DAILY lisinopril 40 mg PO DAILY 90 days lorazepam 1 mg PO ONCE PRN metoprolol tartrate 100 mg PO BID 90 days mupirocin 2% 1 appl topical BID 30 days omalizumab (Xolair) 300 mg (2 mL) subcut Q2W omeprazole 40 mg (2 x 20 mg) PO DAILY ondansetron 4 mg PO Q8H PRN 30 days pyridoxine (vitamin B6) 100 mg PO DAILY topiramate 50 mg PO BID tramadol 50 mg PO Q8H PRN Ventolin HFA 90 mcg/actuation (albuterol sulfate) 2 puffs inhalation Q4-6H PRN 30 days NS Tobacco use date assessed: 04/23/24 Dental Screening Dental Screen Date: 04/23/24 HPI f/u hypothyroid 2 HPI0 Details The patient is a 53-year-old female presenting for a follow-up visit week follow-up visit. Patient has a past medical history significant for hypothyroidism, major depressive disorder, obesity, GERD, irritable bowel syndrome, hypertension Concern--> Left hand pain: Patient reports Left hand pain and dysfunction are paramount, where she recalls a mild arthritis diagnosis in the left hand and tendinitis for both hands from August last year. Persistent swelling and restriction in functionality lead to difficulty grasping, with episodes of dropping objects. Attempts at physical therapy have been ceased due to previous inadequate outcomes tied to shoulder pain and ineffective brace fit requiring patient-mediated resolution. Chronic shoulder pain stems from a lack of completed operative intervention along with a year since effective cortisone management, equating to exacerbated concerns for untreated discomfort. .. Asthma: a two-week persistent, non-productive cough has evolved, contributing to somnolence and forced reliance on specifically formulated [id number] remedies for cough relief. Ear discomfort, particularly on the right, accompanies the cough, revealing previous intervention for swimmer?s ear, but current similar blockage sensations, including periodic clear drainage, remain distressing contributors to her visit priority. .. Hypertension: Patient's blood pressure acceptable today in office. She continues on multiple different antihypertensives including amlodipine, lisinopril, hydrochlorothiazide and metoprolol. She has a history of fibromyalgia, which has significantly worsened over the past three years, coinciding with the of her niece and mother, leading to severe depression and anxiety. The fibromyalgia results in chronic pain throughout her body, including headaches and muscle pain, and she reports multiple unsuccessful medication trials, including gabapentin and other unspecified treatments, without sustained relief. The patient's depression, compounded by considerable personal loss, exacerbates her pain and disrupts her sleep. Hypothyroidism: Most recent TSH elevated at 20. She has establish care with endocrinology in his recently started new dose levothyroxine capsules . She was on levothyroxine tablets in the past though had absorption issues due to her GI gastritis. She was changed to capsules which were much more effective. Now needs prior authorization through insurance explaining this so that she can get capsules of her levothyroxine. [facility] Medical History Well woman exam Dysphagia Abnormal finding on EKG Hx of flexible sigmoidoscopy Internal derangement of right shoulder Lump of left breast Lump of right breast Lump of axillary tail of right breast Chronic constipation Rotator cuff impingement syndrome of left shoulder Right forearm pain Colitis Hypertensive urgency Rotator cuff impingement syndrome Lateral epicondylitis of both elbows Fall IBS (irritable bowel syndrome) Abdominal bloating Tendinopathy of left rotator cuff History of TIA (transient ischemic attack) Hypercholesterolemia Vitamin D deficiency Multinodular thyroid Pancreatic cyst Thyroid nodule Diarrhea Rectal bleeding Esophageal spasm GERD (gastroesophageal reflux disease) Hypertension Asthma Kidney stones History of migraine headaches Fibromyalgia Allergic rhinitis Sciatic nerve pain Ovarian cyst Hypothyroidism Surgical History History of arthroscopic surgery of shoulder Hx of eye surgery History of breast lump/mass excision Hx of hemorrhoidectomy Hx of tubal ligation History of esophagogastroduodenoscopy (EGD) History of colonoscopy (~11/16/19) H/O: hysterectomy History of thyroidectomy (~11/2018) History of kidney surgery Hx of bilateral breast reduction surgery Hx of appendectomy History of cholecystectomy (~2003) H/O lithotripsy Family History Father Family history of high blood pressure History of high cholesterol Mother History of diabetes mellitus Family history of high blood pressure Family history of asthma History of fibromyalgia Liver disease Maternal Grandfather Colon cancer Family/Other Breast cancer Social History Household Members: Spouse Household Members Other:: daughter Housing: Apartment Are you a primary pediatric critical care nurse to a significant other at home: No Do you presently have visiting nurse or other home services: No Alcohol intake: never Patient Tobacco Use Status: Former Tobacco user Tobacco use type: Cigarette Years Smoked: 15 e-Cigarette/Vaping Use: Never Used Second Hand Smoke Exposure: Yes Substance Use Type: Marijuana service: No Current occupational status: disabled Current occupation: right handed Sexual orientation: Straight/Heterosexual Gender identity: Female Cognitive needs: No Hearing needs: No Vision needs: Yes Female Reproductive History Menstrual Age of Menarche: 10 Questionnaire PHQ-9 Over the last 2 weeks, how often have you been bothered by any of the following problems? 1. Little interest or pleasure in doing things: not at all 2. Feeling down, depressed, or hopeless: not at all 3. Trouble falling or staying asleep, or sleeping too much: not at all 4. Feeling tired or having little energy: not at all 5. Poor appetite or overeating: not at all 6. Feeling bad about yourself - or that you are a failure or have let yourself or your family down: not at all 7. Trouble concentrating on things, such as reading the newspaper or watching television: not at all 8. Moving or speaking so slowly that other people could have noticed. Or the opposite - being so fidgety or restless that you have been moving around a lot more than usual: not at all 9. Thoughts that you would be better off or of hurting yourself in some way: not at all Total score: 0 Depression Screening Interpretation: Negative Depression Screening Done: Yes Source: Developed by Drs. Rainer Caldwell, Ashanti Malone, Hank Dewitt and colleagues, with an educational mayco from [employer]. Thrive Questionnaire Date Thrive assessed: 04/23/24 I am a: Patient What is your living situation today?: I choose not to answer this question Within the past 12 months, did the food you bought not last and you didn't have the money to get more?: I choose not to answer this question Within the past 12 months, did you worry whether your food would run out before you got money to buy more?: I choose not to answer this question Do you have trouble paying for medicines?: I choose not to answer this question Do you have trouble getting transportation to medical appointments?: I choose not to answer this question Do you have trouble paying your heating and electricity bill?: I choose not to answer this question Do you have trouble taking care of your child, family member or friend?: I choose not to answer this question Do you have trouble with day-to-day activities such as bathing, preparing meals, shopping, managing finances, etc.?: I choose not to answer this question Are you currently unemployed and looking for a job?: I choose not to answer this question Are you interested in more education?: I choose not to answer this question Please select the resources that you would like help with: None Currently or been in a relationship where the following occur: I choose not to answer THRIVE Score: 0 AUDIT C Alcohol Use Questionnaire (AUDIT-C) 1. How often do you have a drink containing alcohol?: Never Total Score: 0 INDRA-7 AMB Questionnaire INDRA-7 Date INDRA - 7 assessed: 04/23/24 Feeling nervous, anxious, or on edge: 0 = Not at all Not being able to stop or control worryin = Not at all Worrying too much about different things: 0 = Not at all Trouble relaxin = Not at all Being so restless that it is hard to sit still: 0 = Not at all Becoming easily annoyed or irritable: 0 = Not at all Feeling afraid as if something awful might happen: 0 = Not at all Total INDRA-7 score (0-4 normal; 5-9 mild; 10-14 moderate; 15-21 severe): 0 Source: Developed by Drs. Rainer Caldwell, Ashanti Malone, Hank Dewitt and colleagues, with an educational mayco from [employer]. Physical exam (Primary Care) Vital Signs: Last Vital Signs BP 138/86 06/23/24 10:55 BMI result Body Mass Index 36.3 BMI Assessment/Plan discussion: High BMI High, discussed plan: lifestyle, weight reduction, dietary and physical activity Tobacco/Smoking Status: Tobacco use Status Tobacco use date assessed 04/23/24 06/23/24 10:53 Patient Tobacco Use Status Former Tobacco user 06/23/24 10:53 Tobacco use type Cigarette 06/23/24 10:53 e-Cigarette/Vaping Use Never Used 06/23/24 10:53 PHQ-9: PHQ-9 Score PHQ-9: Total score 0 06/23/24 11:41 Depression Screening Interpretation: Negative Thrive Assessment: Date of Thrive Assessment Date Thrive assessed 04/23/24 06/23/24 10:53 Currently or been in a relationship where the following occur: I choose not to answer Extrem Hand/finger images: 2 1. NOTED MILD EDEMA HAS COMPARED TO RIGHT THENAR REGION, TENDERNESS TO PALPATION IN THIS REGION WELL. Coding Level of Care Code Est Pt Level 4 (25351) Diagnoses Arthritis of carpometacarpal (CMC) joint of left thumb M18.12 Severe persistent asthma with acute exacerbation J45.51 Asthma complication type: with acute exacerbation Dysfunction of left eustachian tube H69.92 Laterality: left Essential hypertension I10 Hypertension type: essential hypertension Postoperative hypothyroidism E89.0 Hypothyroidism type: postoperative Assessment & Plan Assessment & Plan (1) Arthritis of carpometacarpal (CMC) joint of left thumb: Code(s): M18.12 - Unilateral primary osteoarthritis of first carpometacarpal joint, left hand Category: Medical Plan: Appropriate analgesic and anti-inflammatory routes planned, MRI sanctioned to correlate structural integrity and define hand pain alleviation tactics. Did discuss the possible need of occupational therapy to help her hand strength and dexterity though she declines at this time (2) Severe persistent asthma: Code(s): J45.50 - Severe persistent asthma, uncomplicated Category: Medical Qualifiers: Asthma complication type: with acute exacerbation Qualified Code(s): J 45.51 - Severe persistent asthma with (acute) exacerbation Plan: Implementation of corticosteroid regimen amid inhaler reassignment taking shape against inflammatory backdrop, bolstered by non-immunologic flare context. (3) Eustachian tube dysfunction: Code(s): H69.90 - Unspecified Eustachian tube disorder, unspecified ear Category: Medical Qualifiers: Laterality: left Qualified Code(s): H69.92 - Unspecified Eustachian tube disorder, left ear Plan: Steroid administration alluded to systolic concerns, fortified by existing nasal passage aids aimed at fluid management equilibrium. (4) Hypertension: Code(s): I10 - Essential (primary) hypertension Category: Medical Qualifiers: Hypertension type: essential hypertension Qualified Code(s): I10 - Essential (primary) hypertension Plan: Patient's blood pressure acceptable today in office. At last visit we increased her hydrochlorothiazide to 25 mg.. Will continue metoprolol, amlodipine, lisinopril and hydrochlorothiazide with goal blood pressure to be below 140/90. (5) Hypothyroidism: Code(s): E03.9 - Hypothyroidism, unspecified Category: Medical Qualifiers: Hypothyroidism type: postoperative Qualified Code(s): E89.0 - Postprocedural hypothyroidism Plan: She has reestablish care with endocrinology. She has recently started capsules of levothyroxine which she reports some sores better in her GI system Most recent TSH was 20. She does seem some symptomatic with the easy bruising and fatigue ect.. Now needs PCP to fill her thyroid medication. She was on capsules of levothyroxine as she was not able to absorb tablets of levothyroxine due to her gastritis and GERD. Orders: Orders 2 MR wrist LT wo con 06/23/24 Donis Barron PA-C M18.12 - Unilateral primary osteoarthritis of first carpometacarpal joint, left hand NE nerve conduction velocity 06/23/24 SHALOM Thomas R20.0 - Anesthesia of skin, R20.2 - Paresthesia of skin MR hand LT wo con 06/23/24 Donis Barron PA-C M18.12 - Unilateral primary osteoarthritis of first carpometacarpal joint, left hand NE electromyogram (EMG) 06/23/24 SHALOM Thomas R20.0 - Anesthesia of skin, R20.2 - Paresthesia of skin Referrals 2 Orthopedics Referral Donis Barron PA-C M18.12 - Unilateral primary osteoarthritis of first carpometacarpal joint, left hand Medications: New 2 prednisone take 3 tabs x 3 days , take 2 tabs x 3 days , take 1 tabs x 3 days. 10 mg PO DIRECTED 18 tabs 0RF 9 days Donis Barron PA-C J45.50 - Severe persistent asthma, uncomplicated diclofenac sodium 50 mg PO DAILY 30 tabs 0RF 30 days Donis Barron PA-C M18.12 - Unilateral primary osteoarthritis of first carpometacarpal joint, left hand
[2024-06-23 10:55] VITALS: BP 138/86; BMI 36.3
--- OUTSIDE RECORDS SUMMARY | 2024-06-23 12:34 | XMS_ITS | Encounter Summary ---
Author Organization [facility] Address [address] [place] [address] Care Team Providers Care Dual Hose Cementer Name Role Phone Tommy Smith MD Primary Care Provider Joanne vailable Reason for Visit * Reason Comments E-prescribe Rx Request Encounter Details Date Type Department Care Team Description 01/14/2019 Refill Pulmonology - [place] [address] [facility] [address] [place] [phone] Wil Vargas PA-C [address] [facility] [address] [place] [phone] E-prescribe Rx Request Social History Tobacco Use [...] MED LIST AND IS IDENTIFIED BELOW): {MED LIST:56933) Med name: benzonatate (TESSALON) 200 MG capsule Dosage: 200 mg # of tablets: 30 Local pharmacy with request for 30 -day supply Instructions: Take 1 Cap by mouth 3 times daily as needed for Cough for up to 30 days. Did you check the pharmacy information above?: YES Patients current insurance carrier: Payor: [employer] FFS / Plan: [employer] / Product Type: MEDICAID RISK documented in this encounter Plan of Treatment Not on file documented as of this encounter Visit Diagnoses Diagnosis Moderate persistent asthma without complication Unspecified asthma Cough Allergic rhinitis, unspecified seasonality, unspecified trigger documented in this encounter Care Teams Dual Hose Cementer Relationship Specialty Start Date End Date Tommy Smith MD PCP - General Internal Medicine 06/28/18 documented as of this encounter
--- OUTSIDE RECORDS SUMMARY | 2024-06-23 12:34 | XMS_ITS | Encounter Summary ---
Author Organization [facility] Address [address] [place] [address] Care Team Providers Care Practice Specialist Name Role Phone Tommy Smith MD Primary Care Provider Joanne vailable Reason for Visit * Reason Comments E-prescribe Rx Request Encounter Details Date Type Department Care Team Description 11/12/2020 Refill Pulmonology - [place] [address] [facility] [address] [place] [address] Nguyen Morrison MD [address] [place] [phone] E-prescribe Rx Request Social History Tobacco Use [...] N/A Patients current insurance carrier is: Payor: [employer] FFS / Plan: [employer] / Product Type: MEDICAID RISK documented in this encounter Plan of Treatment Not on file documented as of this encounter Visit Diagnoses Diagnosis Moderate persistent asthma without complication Unspecified asthma Cough Allergic rhinitis, unspecified seasonality, unspecified trigger documented in this encounter Care Teams Practice Specialist Relationship Specialty Start Date End Date Tommy Smith MD PCP - General Internal Medicine 06/28/18 documented as of this encounter
--- OUTSIDE RECORDS SUMMARY | 2024-06-23 12:34 | XMS_ITS | Clinical Summary ---
Author Organization [facility] Address [address] [facility] [place] [address] Care Team Providers Care Manager Continuous Improvement Name Role Phone Tommy Smith MD Primary [...] 02/27/2024 INFLUENZA (Season Ended) 2024 Care Teams Manager Continuous Improvement Relationship Specialty Start Date End Date Tommy Smith MD PCP - General Internal Medicine 06/28/18
--- OUTSIDE RECORDS SUMMARY | 2024-06-23 12:34 | XMS_ITS | Clinical Summary ---
Author Organization [facility] Address [address] [place] [id number] Care Team Providers Care Hogshead Dumper Name Role Phone Naomi Bains MD Primary [...] Vaccine (Season Ended) [address] [place] [id number] [facility] Medicaid [facility] Medicaid Care Teams Hogshead Dumper Relationship Specialty Start Date End Date Naomi Bains MD [address] [place] [id number] PCP - General 03/08/20
--- OUTSIDE RECORDS SUMMARY | 2024-06-23 12:34 | XMS_ITS | Encounter Summary ---
Author Organization [facility] Address [address] [facility] [place] [address] Care Team Providers Care Home School Teacher Name Role Phone Tommy Smith MD Primary Care Provider Joanne vailable Reason for Visit * Reason Comments E-prescribe Rx Request Encounter Details Date Type Department Care Team Description 09/12/2020 Refill Pulmonology - [place] [address] [facility] [address] [place] [phone] Nguyen Morrison MD [address] [place] [phone] E-prescribe Rx Request Social History Tobacco Use [...] she is now seeing a DrAntonia In [place] and does not wish to schedule here. (THE MEDICATION REQUESTED IS ON THE MED LIST ABOVE) All of the medications requested were on the CURRENT MEDS list Did you check the Pharmacy information above?: YES Patient wants: 30 -day supply Is this a mail order prescription request ? NO Patients current insurance carrier is: Payor: [employer] FFS / Plan: [employer] / Product Type: MEDICAID RISK documented in this encounter Plan of Treatment Not on file documented as of this encounter Visit Diagnoses Diagnosis Moderate persistent asthma without complication Unspecified asthma Cough Allergic rhinitis, unspecified seasonality, unspecified trigger documented in this encounter Care Teams Home School Teacher Relationship Specialty Start Date End Date Tommy Smith MD PCP - General Internal Medicine 06/28/18 documented as of this encounter
--- OUTSIDE RECORDS SUMMARY | 2024-06-23 12:34 | XMS_ITS | Encounter Summary ---
Author Organization [facility] Address [address] [facility] [place] [address] Care Team Providers Care Circular Sawyer Stone Name Role Phone Tommy Smith MD Primary Care Provider Joanne vailable Reason for Visit * Reason Comments E-prescribe Rx Request Encounter Details Date Type Department Care Team Description 09/14/2020 Refill Pulmonology - [place] [address] [facility] [address] [place] [phone] Nguyen Morrison MD [address] [place] [phone] E-prescribe Rx Request Social History Tobacco Use [...] trigger documented in this encounter Care Teams Circular Sawyer Stone Relationship Specialty Start Date End Date Tommy Smith MD PCP - General Internal Medicine 06/28/18 documented as of this encounter
== END 2024-06-23 11:42 | disposition home or self-care (01) ==
LOC: HO.HMCH 10:38
PROVIDERS: PCP Physician Assistant; Visit Provider Physician Assistant
DX: M18.12 Unilateral primary osteoarthritis of first carpometacarpal joint, left hand (principal); J45.51 Severe persistent asthma with (acute) exacerbation; H69.92 Unspecified Eustachian tube disorder, left ear; I10 Essential (primary) hypertension; E89.0 Postprocedural hypothyroidism

== ENCOUNTER → 2024-06-23 10:37 | Outpatient (BNVA) | payer OTHER, SELFPAY | PROVIDERS: PCP Physician Assistant; Visit Provider Physician Assistant | DX: M18.12 Unilateral primary osteoarthritis of first carpometacarpal joint, left hand (principal); J45.51 Severe persistent asthma with (acute) exacerbation; H69.92 Unspecified Eustachian tube disorder, left ear; I10 Essential (primary) hypertension; E89.0 Postprocedural hypothyroidism; Z79.899 Other long term (current) drug therapy | CPT/HCPCS: 99212 ==

== ENCOUNTER 2024-06-25 10:31 | Outpatient (REF) | payer OTHER, SELFPAY ==
--- NOTE | ~2024-06-25 | US_ITS ---
EXAMINATION: US PELVIS TRANSABDOMINAL AND TRANSVAGINAL HISTORY: R10.2 - Pelvic and perineal pain COMPARISON: Comparison is made with the prior examination dated 03/22/2023. TECHNIQUE: Transabdominal and endovaginal real-time 2D pinon-scale ultrasound was performed. FINDINGS: Uterus: The uterus is surgically absent. Right ovary: The right ovary is not identified. Left ovary: The left ovary is not identified. Pelvic fluid: none. US/US pelvic and transvaginal IMPRESSION: Status post hysterectomy. The ovaries are not identified. Electronically signed by: Rainer Munson MD 06/26/2024 07:12 AM EDT
--- OUTSIDE RECORDS SUMMARY | 2024-06-25 11:53 | XMS_ITS | Encounter Summary ---
Author Organization [facility] Address [address] [place] [address] Care Team Providers Care Cut Press Operator Name Role Phone Tommy Smith MD Primary Care Provider Joanne vailable Reason for Visit * Reason Onset Date Comments APPOINTMENT 11/03/2020 Encounter Details Date Type Department Care Team Description 11/03/2020 Telephone Pulmonology - [place] [address] [facility] [address] [place] [address] Tommy Smith MD APPOINTMENT Social [...] she is now seeing another DrAntonia In [place] so does not wish to schedule an appointment here. documented in this encounter Plan of Treatment Not on file documented as of this encounter Visit Diagnoses Not on filedocumented in this encounter Care Teams Cut Press Operator Relationship Specialty Start Date End Date Tommy Smith MD PCP - General Internal Medicine 06/28/18 documented as of this encounter
--- OUTSIDE RECORDS SUMMARY | 2024-06-25 11:53 | XMS_ITS | Encounter Summary ---
Author Organization [facility] Address [address] [facility] [place] [address] Care Team Providers Care Director Water And Waste Services Name Role Phone Tommy Smith MD Primary Care Provider Joanne vailable Reason for Visit * Reason Comments E-prescribe Rx Request Encounter Details Date Type Department Care Team Description 10/07/2020 Refill Pulmonology - [place] [address] [facility] [address] [place] [phone] Nguyen Morrison MD [address] [place] [phone] E-prescribe Rx Request Social History Tobacco Use [...] trigger documented in this encounter Care Teams Director Water And Waste Services Relationship Specialty Start Date End Date Tommy Smith MD PCP - General Internal Medicine 06/28/18 documented as of this encounter
--- OUTSIDE RECORDS SUMMARY | 2024-06-25 11:53 | XMS_ITS | Encounter Summary ---
Author Organization [facility] Address [address] [place] [address] Care Team Providers Care Supervisory Examiner Name Role Phone Tommy Smith MD Primary Care Provider Joanne vailable Reason for Visit * Reason Comments E-prescribe Rx Request Encounter Details Date Type Department Care Team Description 08/11/2019 Refill Pulmonology - [place] [address] [facility] [address] [place] [phone] Wil Vargas PA-C [address] [facility] [address] [place] [phone] E-prescribe Rx Request Social History Tobacco Use [...] NO Patients current insurance carrier is: Payor: [employer] FFS / Plan: [employer] / Product Type: MEDICAID RISK * Telephone [...] trigger documented in this encounter Care Teams Supervisory Examiner Relationship Specialty Start Date End Date Tommy Smith MD PCP - General Internal Medicine 06/28/18 documented as of this encounter
--- OUTSIDE RECORDS SUMMARY | 2024-06-25 11:53 | XMS_ITS | Clinical Summary ---
Author Organization [facility] Address [address] [place] [address] Care Team Providers Care Attendant Campground Name Role Phone Naomi Bains MD Primary [...] Vaccine (Season Ended) [address] [place] [id number] [facility] Medicaid [facility] Medicaid Care Teams Attendant Campground Relationship Specialty Start Date End Date Naomi Bains MD [address] [place] [address] PCP - General 03/08/20
--- OUTSIDE RECORDS SUMMARY | 2024-06-25 11:53 | XMS_ITS | Encounter Summary ---
Author Organization [facility] Address [address] [place] [address] Care Team Providers Care Regional Marketing Director Name Role Phone Tommy Smith MD Primary Care Provider Joanne vailable Reason for Visit * Reason Comments E-prescribe Rx Request Encounter Details Date Type Department Care Team Description 09/14/2020 Refill Pulmonology - [place] 175 [facility] [address] [place] [phone] Nguyen Morrison MD [address] [place] [phone] E-prescribe Rx Request Social History Tobacco Use [...] trigger documented in this encounter Care Teams Regional Marketing Director Relationship Specialty Start Date End Date Tommy Smith MD PCP - General Internal Medicine 06/28/18 documented as of this encounter
--- OUTSIDE RECORDS SUMMARY | 2024-06-25 11:53 | XMS_ITS | Encounter Summary ---
Author Organization [facility] Address [address] [place] [address] Care Team Providers Care Architectural Representative Name Role Phone Tommy Smith MD Primary Care Provider Joanne vailable Reason for Visit * Reason Onset Date Comments APPOINTMENT 02/05/2019 Encounter Details Date Type Department Care Team Description 02/05/2019 Telephone Internal Medicine - [address], [address] [place] [address] Tommy Smith MD APPOINTMENT Social History Tobacco [...] on filedocumented in this encounter Care Teams Architectural Representative Relationship Specialty Start Date End Date Tommy Smith MD PCP - General Internal Medicine 06/28/18 documented as of this encounter
--- OUTSIDE RECORDS SUMMARY | 2024-06-25 11:53 | XMS_ITS | Clinical Summary ---
Author Organization [facility] Address [address] [facility] [place] [address] Care Team Providers Care Ceramic Worker Name Role Phone Tommy Smith MD Primary [...] 02/27/2024 INFLUENZA (Season Ended) 2024 Care Teams Ceramic Worker Relationship Specialty Start Date End Date Tommy Smith MD PCP - General Internal Medicine 06/28/18
--- OUTSIDE RECORDS SUMMARY | 2024-06-25 11:53 | XMS_ITS | Encounter Summary ---
Author Organization [facility] Address [address] [place] [address] Care Team Providers Care Program Clerk Name Role Phone Tej Fitch MD Primary Care Provider [phone] Radha Camarillo Primary Care Provider Nikki Bullock Primary Care Provi carlos Naomi Bond MD Primary Care Provider U Tommy Sellers MD Primary Care Provider Joanne vailable Encounter Details Date Type Department Care Team Description 07/10/2012 Packager Or Packer And Weigher Report Medical Records [address] [place] [address] Marcel Arriaga MD Social History Tobacco Use Types Packs/Day Years Used Date Smoking Tobacco: Never Assessed Sex Assigned at Date Recorded Not on file documented as of this encounter Plan of Treatment Not on file documented as of this encounter Visit Diagnoses Not on filedocumented in this encounter Care Teams Program Clerk Relationship Specialty Start Date End Date Tej Fitch MD [address] [id number] PCP - General 12/12/07 11/03/12 Radha Camarillo [address] [place] [address] PCP - General Family Practice 11/04/12 11/25/13 Nikki Mayfield FNP [address] [place] [address] PCP - General Family Practice 11/26/13 05/26/18 Naomi Bains MD [address] [place] [address] PCP - General Family Practice 05/27/18 06/27/18 Tommy Smith MD [address] [place] [address] PCP - General Internal Medicine 06/28/18 documented as of this encounter
== END 2024-06-25 10:32 | disposition home or self-care (01) ==
LOC: HO.US 10:31
PROVIDERS: PCP Internal Medicine; Visit Provider Obstetrics & Gynecology
DX: R10.2 Pelvic and perineal pain (principal)
CPT/HCPCS: 76830; 76856

== ENCOUNTER → 2024-06-25 10:35 | Outpatient (BNV) | payer OTHER, SELFPAY | PROVIDERS: PCP Internal Medicine; Visit Provider Radiology Diagnostic Radiology | DX: R10.2 Pelvic and perineal pain (principal) | CPT/HCPCS: 76830; 76856 ==

== ENCOUNTER → 2024-06-26 13:00 | Outpatient (BNV) | payer OTHER, SELFPAY | PROVIDERS: PCP Internal Medicine; Visit Provider Internal Medicine | DX: N63.25 Unspecified lump in the left breast, overlapping quadrants (principal) | CPT/HCPCS: 76642; 77062; 77066 ==

== ENCOUNTER 2024-06-26 13:29 | Outpatient (REF) | payer OTHER, SELFPAY ==
--- NOTE | ~2024-06-26 | MM_ITS ---
EXAMINATION: MM DIAGNOSTIC DIGITAL BREAST TOMOSYNTHESIS, BILATERAL Limited left breast ultrasound. CLINICAL INFORMATION: Left palpable lumps. COMPARISON: Mammography: Comparison is made with relevant prior exams. TECHNIQUE: Digital breast mammography with tomosynthesis is performed in both the craniocaudal and mediolateral oblique views along with computer-aided detection (CAD). FINDINGS: There are scattered areas of fibroglandular density (ACR BI-RADS breast composition Category b). Bilateral reduction mammoplasty changes. Right: There are no significant masses, abnormal calcifications, or other abnormalities. Left: BB markers in the upper outer breast posterior depth without underlying abnormality at site of palpable lumps. No suspicious masses calcifications or other abnormal findings. Targeted color Doppler ultrasound scanning in the area the patient's palpable lumps demonstrates a previously seen hypoechoic oval solid mass versus complicated cyst at 2:00 12 cm from the nipple measuring 5 x 6 x 2 mm which is not significantly changed from prior ultrasounds dating back to 12/13/2020 and therefore benign. Otherwise scanning in the upper outer quadrant in the area the patient's palpable lumps demonstrates normal fibroglandular breast tissue. Results are provided to the patient at time of visit by the technologist. MM/MM tomosynthesis diagnostic BI IMPRESSION: Right: Benign. Left: 1. Solid mass versus complicated cyst at 2:00 12 cm from nipple not significantly changed from prior ultrasounds dating back for 2020 and therefore benign. 2. No other mammographic or sonographic abnormality to correlate with the patient's palpable lumps in the upper outer quadrant. Recommend clinical evaluation and follow-up. ASSESSMENT: BI-RADS BI-RADS 2 - Benign Findings RECOMMENDATION: 1. Patient should be managed based on the clinical impression. 2. Otherwise, routine annual screening mammography. This patient's information was entered into a reminder system with a target due date for their next mammogram. Electronically signed by: Ariane Sims DO 06/26/2024 02:50 PM EDT
--- OUTSIDE RECORDS SUMMARY | 2024-06-26 15:50 | XMS_ITS | Clinical Summary ---
Author Organization [facility] Address [address] [place] [address] Care Team Providers Care Training And Development Coordinator Name Role Phone Naomi Bains MD Primary [...] (Season Ended) [address] [place] [id number] [facility] [place] [address] [facility] [place] [address] Care Teams Training And Development Coordinator Relationship Specialty Start Date End Date Naomi Bains MD [address] [place] [address] PCP - General 03/08/20
== END 2024-06-26 13:30 | disposition home or self-care (01) ==
LOC: HO.MAMMO 13:29
PROVIDERS: PCP Internal Medicine; Visit Provider Obstetrics & Gynecology
DX: N63.25 Unspecified lump in the left breast, overlapping quadrants (principal)
CPT/HCPCS: 76642; 77062; 77066

== ENCOUNTER 2024-07-07 09:40 | Outpatient (AMB) | payer OTHER, SELFPAY ==
[2024-07-07 09:35] VITALS: BP 136/100; BMI 37.1
--- NOTE | 2024-07-07 09:35 | HO.NEPHOV_ITS ---
Vital Signs 07/07/24 09:35 Height 5 ft 5 in Weight 223 lb BMI 37.1 BP 136/100 H Blood Pressure Location Lt brachial Position Sitting Intake Visit Reasons: Kidney stones/Conf Firer Kiln Required: No Accompanied by: Self / Same As Patient Allergies pineapple [PINEAPPLE] Allergy (Severe, Verified 07/07/24 09:36) ANAPHYLAXIS adhesive tape Allergy (Intermediate, Verified 07/07/24 09:36) Blister Iodinated Contrast Media [IV Dye, Iodine Containing] Allergy (Intermediate, Verified 07/07/24 09:36) SOB,RASH levofloxacin [From Levaquin] Allergy (Intermediate, Verified 07/07/24 09:36) swelling/rash oxycodone [From Percocet] Allergy (Intermediate, Verified 07/07/24 09:36) rash/SOB aspirin [ASA] Adverse Reaction (Mild, Verified 07/07/24 09:36) UPSET STOMACH HPI Comments Details: Ivonne is a middle aged woman with a history of renal stones. She is multiple medical problems including migraine. She has been on Topamax for quite some time. Recently she had imaging studies which showed 5 mm stone on the right kidney and and a 3 mm stone in the left kidney. There was mild left-sided hydronephrosis She has been followed by urologist as well She complains of back pain. She has some burning while urinating. No hematuria. She has not passed any kidney stones. No fever no rash. No edema. 01/21/24 ;c/o back pain on and off ;NO urinary symptoms ; follow up in Feb 2024 with USG 07/07/24 Still with back pain ; s/p ESWL in April 2024 Says she is not taking Topiramate anymore [facility] Medical History Well woman exam Dysphagia Abnormal finding on EKG Hx of flexible sigmoidoscopy Internal derangement of right shoulder Lump of left breast Lump of right breast Lump of axillary tail of right breast Chronic constipation Rotator cuff impingement syndrome of left shoulder Right forearm pain Colitis Hypertensive urgency Rotator cuff impingement syndrome Lateral epicondylitis of both elbows Fall IBS (irritable bowel syndrome) Abdominal bloating Tendinopathy of left rotator cuff History of TIA (transient ischemic attack) Hypercholesterolemia Vitamin D deficiency Multinodular thyroid Pancreatic cyst Thyroid nodule Diarrhea Rectal bleeding Esophageal spasm GERD (gastroesophageal reflux disease) Hypertension Asthma Kidney stones History of migraine headaches Fibromyalgia Allergic rhinitis Sciatic nerve pain Ovarian cyst Hypothyroidism Surgical History History of arthroscopic surgery of shoulder Hx of eye surgery History of breast lump/mass excision Hx of hemorrhoidectomy Hx of tubal ligation History of esophagogastroduodenoscopy (EGD) History of colonoscopy (~11/16/19) H/O: hysterectomy History of thyroidectomy (~11/2018) History of kidney surgery Hx of bilateral breast reduction surgery Hx of appendectomy History of cholecystectomy (~2003) H/O lithotripsy Family History Father Family history of high blood pressure History of high cholesterol Mother History of diabetes mellitus Family history of high blood pressure Family history of asthma History of fibromyalgia Liver disease Maternal Grandfather Colon cancer Family/Other Breast cancer Social History Household Members: Spouse Household Members Other:: daughter Housing: Apartment Are you a primary critical care nurse practitioner to a significant other at home: No Do you presently have visiting nurse or other home services: No Alcohol intake: never Patient Tobacco Use Status: Former Tobacco user Tobacco use type: Cigarette Years Smoked: 15 e-Cigarette/Vaping Use: Never Used Second Hand Smoke Exposure: Yes Substance Use Type: Marijuana service: No Current occupational status: disabled Current occupation: right handed Sexual orientation: Straight/Heterosexual Gender identity: Female Cognitive needs: No Hearing needs: No Vision needs: Yes Female Reproductive History Menstrual Age of Menarche: 10 Physical Exam Vital Signs: Last Vital Signs BP 136/100 H 07/07/24 09:35 BMI result Body Mass Index 37.1 Comfortable Neck supple no JVD. Lungs entry equal no rales. Heart S1-S2 heard no gallop or rub. Abdomen soft nontender. Neuro alert awake oriented. No asterixis. Extremities no edema. Results Reviewed Nephrology Results: Hgb 13.7 g/dl (12.0-16.0) 06/24/24 WBC 8.0 X10*3/uL (4.8-10.8) 06/24/24 Plt Count 282 X10*3/uL (160-400) 06/24/24 Sodium 140 mmol/L (135-145) 06/24/24 Potassium 3.9 mmol/L (3.3-5.1) 06/24/24 Chloride 107 mmol/L (96-108) 06/24/24 Carbon Dioxide 24 mmol/L (22-29) 06/24/24 BUN 16 mg/dL (9-16) 06/24/24 Creatinine 0.64 mg/dL (0.5-1.4) 06/24/24 Calcium 9.2 mg/dL (8.4-10.2) 06/24/24 Assessment & Plan Assessment & Plan (1) Kidney stones: Code(s): N20.0 - Calculus of kidney Category: Medical (2) Hypertension: Code(s): I10 - Essential (primary) hypertension Category: Medical Qualifiers: Hypertension type: essential hypertension Qualified Code(s): I10 - Essential (primary) hypertension Plan Middle aged woman with a history of migraine who has been on Topamax has had multiple renal stones. Topamax could be a contributing factor by inhibiting carbonic anhydrase and can precipitate forming stones. Discontinued Topamax. Stay on low-sodium diet. Increase p.o. fluid intake to maintain urine output of 2 L. Increase citrate ingestion. Decrease Oxalate intake- (Gave instructions) She could take Tylenol p.r.n. for back pain. Mild left hydro on sonogram in April 2023 REpeat USG in May 2024 shows mild fullness follow up sonogram in Sep was unremarkable Follow up with HTN Meds reviewed Discussed weight loss Waiting to start CPAP in August Orders: Orders UA and rflx microscopic 6 Months I10 - Essential (primary) hypertension Basic Metabolic Panel 6 Months I10 - Essential (primary) hypertension Coding Level of Care Code Est Pt Level 4 (21213) Diagnoses Kidney stones N20.0 Essential hypertension I10 Hypertension type: essential hypertension
--- OUTSIDE RECORDS SUMMARY | 2024-07-07 10:00 | XMS_ITS | Clinical Summary ---
Author Organization [facility] Facility Address [address] [place] [address] Care Team Providers Care Skein Winder Name Role Phone Naomi Bains MD Primary Care Provider [phone] Family History Medical History Relation Comments Hypertension [...] Vaccine (Season Ended) [address] [place] [id number] [facility] Medicaid [facility] Medicaid Care Teams Skein Winder Relationship Specialty Start Date End Date Naomi Bains MD [address] [place] [address] PCP - General 03/08/20
--- OUTSIDE RECORDS SUMMARY | 2024-07-07 10:00 | XMS_ITS | Clinical Summary ---
Author Organization [facility] Address [address] [facility] [place] [address] Care Team Providers Care Toe Puller Name Role Phone Tommy Smith MD Primary [...] 02/27/2024 INFLUENZA (Season Ended) 2024 Care Teams Toe Puller Relationship Specialty Start Date End Date Tommy Smith MD PCP - General Internal Medicine 06/28/18
--- OUTSIDE RECORDS SUMMARY | 2024-07-07 10:00 | XMS_ITS | Encounter Summary ---
Author Organization [facility] Address [address] [facility] [place] [address] Care Team Providers Care Concrete Inspector Name Role Phone Tommy Smith MD Primary Care Provider Joanne vailable Reason for Visit * Reason Comments E-prescribe Rx Request Encounter Details Date Type Department Care Team Description 09/14/2020 Refill Pulmonology - [place] 175 [facility] [address] [place] [phone] Nguyen Morrison MD [address] [place] [phone] E-prescribe Rx Request Social History Tobacco Use [...] trigger documented in this encounter Care Teams Concrete Inspector Relationship Specialty Start Date End Date Tommy Smith MD PCP - General Internal Medicine 06/28/18 documented as of this encounter
--- OUTSIDE RECORDS SUMMARY | 2024-07-07 10:00 | XMS_ITS | Encounter Summary ---
Author Organization [facility] Address [address] [place] [address] Care Team Providers Care Carpet Measurer Name Role Phone Tommy Smith MD Primary Care Provider Joanne vailable Reason for Visit * Reason Onset Date Comments APPOINTMENT 02/05/2019 Encounter Details Date Type Department Care Team Description 02/05/2019 Telephone Internal Medicine - [address], [address] [place] [address] Tommy Smith MD APPOINTMENT Social History Tobacco [...] cx appt from Alfredo-Called and spoke with Violte for next Consult time. Patient thought appt was with Percy Vargas.P.A. She was unaware he left. documented in this encounter Plan of Treatment Not on file documented as of this encounter Visit Diagnoses Not on filedocumented in this encounter Care Teams Carpet Measurer Relationship Specialty Start Date End Date Tommy Smith MD PCP - General Internal Medicine 06/28/18 documented as of this encounter
--- OUTSIDE RECORDS SUMMARY | 2024-07-07 10:00 | XMS_ITS | Encounter Summary ---
Author Organization [facility] Address [address] [place] [address] Care Team Providers Care Float Remover Name Role Phone Tommy Smith MD Primary Care Provider Joanne vailable Reason for Visit * Reason Comments E-prescribe Rx Request Encounter Details Date Type Department Care Team Description 08/11/2019 Refill Pulmonology - [place] 175 [facility] [address] [place] [phone] Nguyen Morrison MD [address] [place] [address] E-prescribe Rx Request Social History [...] MED LIST AND IS IDENTIFIED BELOW): {MED LIST:65133) Med name: benzonatate (TESSALON) 200 MG capsule Dosage: 200 MG # of tablets: 30 CAP Local pharmacy with request for 30 -day supply Instructions: TAKE 1 CAP BY MOUTH 3 TIMES DAILY NEEDED FOR COUGH Did you check the pharmacy information above?: YES Patients current insurance carrier: Payor: [employer] FFS / Plan: amBX / Product Type: MEDICAID RISK documented in this encounter Plan of Treatment Not on file documented as of this encounter Visit Diagnoses Diagnosis Moderate persistent asthma without complication Unspecified asthma Cough Allergic rhinitis, unspecified seasonality, unspecified trigger documented in this encounter Care Teams Float Remover Relationship Specialty Start Date End Date Tommy Smith MD PCP - General Internal Medicine 06/28/18 documented as of this encounter
--- OUTSIDE RECORDS SUMMARY | 2024-07-07 10:00 | XMS_ITS | Encounter Summary ---
Author Organization [facility] Address [address] [facility] [place] [address] Care Team Providers Care Peanut Sorter Name Role Phone Tommy Smith MD Primary Care Provider Jonane vailable Reason for Visit * Reason Comments E-prescribe Rx Request Encounter Details Date Type Department Care Team Description 10/07/2020 Refill Pulmonology - [place] 175 [facility] [address] [place] [phone] Nguyen Morrison MD [address] [place] [phone] E-prescribe Rx Request Social History Tobacco Use [...] trigger documented in this encounter Care Teams Peanut Sorter Relationship Specialty Start Date End Date Tommy Smith MD PCP - General Internal Medicine 06/28/18 documented as of this encounter
--- OUTSIDE RECORDS SUMMARY | 2024-07-07 10:00 | XMS_ITS | Encounter Summary ---
Author Organization [facility] Address [address] [facility] [place] [address] Care Team Providers Care Warehouse Assistant Name Role Phone Tej Fitch MD Primary Care Provider [phone] Radha Camarillo Primary Care Provider Nikki Bullock Primary Care Provi carlos Naomi Bond MD Primary Care Provider U Tommy Sellers MD Primary Care Provider Joanne vailable Encounter Details Date Type Department Care Team Description 07/10/2012 Web Portal Developer Report Medical Records [address] [place] [address] Marcel Arriaga MD Social History Tobacco Use Types Packs/Day Years Used Date Smoking Tobacco: Never Assessed Sex Assigned at Date Recorded Not on file documented as of this encounter Plan of Treatment Not on file documented as of this encounter Visit Diagnoses Not on filedocumented in this encounter Care Teams Warehouse Assistant Relationship Specialty Start Date End Date Tej Fitch MD [address] [phone] PCP - General 12/12/07 11/03/12 Radha Camarillo [address] [place] [address] PCP - General Family Practice 11/04/12 11/25/13 Nikki Mayfield FNP [address] [place] [address] PCP - General Family Practice 11/26/13 05/26/18 Naomi Bains MD [address] [place] [address] PCP - General Family Practice 05/27/18 06/27/18 Tommy Smith MD [address] [place] [address] PCP - General Internal Medicine 06/28/18 documented as of this encounter
== END 2024-07-07 09:53 | disposition home or self-care (01) ==
LOC: HO.HKA 09:40
PROVIDERS: PCP Physician Assistant; Visit Provider Internal Medicine Hypertension Specialist
DX: N20.0 Calculus of kidney (principal); I10 Essential (primary) hypertension
CPT/HCPCS: 99214

== ENCOUNTER → 2024-07-07 09:40 | Outpatient (BNVA) | payer OTHER, SELFPAY | PROVIDERS: PCP Physician Assistant; Visit Provider Internal Medicine Hypertension Specialist | DX: N20.0 Calculus of kidney (principal); I10 Essential (primary) hypertension | CPT/HCPCS: 99212 ==

== ENCOUNTER 2024-07-08 08:22 | Outpatient (AMB) | payer OTHER, SELFPAY ==
--- NOTE | 2024-07-08 08:31 | A.OFFVIS_ITS ---
Vital Signs 07/08/24 08:54 Height 5 ft 5 in Weight 225 lb 2 oz BMI 37.5 BP 165/99 H Blood Pressure Location Lt brachial Position Sitting Pulse 95 Intake Visit Reasons: lump in the left breast 3 o'clock Intake Note: Patient is seen in office for evaluation of a left breast lump @ 3 o'clock. Pt c/o: felt multiple lumps in the left breast, increase in quantity, painful, denies redness, discoloration, discharge, had breast reduction in the past, yes to breast feeding with no complications, first child age of 18 yrs old, yes fm hx breast cancer us/mm:06/26/24 Heel Seat Trimmer Required: No Candy Department Manager: Candy Department Manager Present Accompanied by: Self / Same As Patient Allergies pineapple [PINEAPPLE] Allergy (Severe, Verified 07/08/24 08:53) ANAPHYLAXIS adhesive tape Allergy (Intermediate, Verified 07/08/24 08:53) Blister Iodinated Contrast Media [IV Dye, Iodine Containing] Allergy (Intermediate, Verified 07/08/24 08:53) SOB,RASH levofloxacin [From Levaquin] Allergy (Intermediate, Verified 07/08/24 08:53) swelling/rash oxycodone [From Percocet] Allergy (Intermediate, Verified 07/08/24 08:53) rash/SOB aspirin [ASA] Adverse Reaction (Mild, Verified 07/08/24 08:53) UPSET STOMACH Medication List - Last Reconciled 07/08/24 by Jeffrey Raines MD amlodipine 10 mg PO DAILY atorvastatin (Lipitor) 10 mg PO DAILY budesonide-formoterol 160-4.5 mcg/actuation (Symbicort) 2 puffs inhalation BID cholecalciferol (vitamin D3) (Vitamin D3) 50 mcg PO DAILY diclofenac sodium 50 mg PO DAILY 30 days diphenhydramine HCl (Benadryl Allergy) 25 mg orally one tablet this evening and one tablet tomorrow am; docusate sodium 100 mg PO BID famotidine 20 mg PO BEDTIME PRN hydrochlorothiazide 25 mg PO DAILY ipratropium bromide 2 sprays intranasal TID 30 days ipratropium-albuterol 0.5 mg-3 mg(2.5 mg base)/3 mL 3 mL inhalation Q4-6H PRN levothyroxine (Tirosint) 175 mcg PO DAILY lisinopril 40 mg PO DAILY 90 days lorazepam 1 mg PO ONCE PRN metoprolol tartrate 100 mg PO BID 90 days mupirocin 2% 1 appl topical BID 30 days omalizumab (Xolair) 300 mg (2 mL) subcut Q2W omeprazole 40 mg (2 x 20 mg) PO DAILY ondansetron 4 mg PO Q8H PRN 30 days prednisone 10 mg PO DIRECTED 9 days pyridoxine (vitamin B6) 100 mg PO DAILY tramadol 50 mg PO Q8H PRN Ventolin HFA 90 mcg/actuation (albuterol sulfate) 2 puffs inhalation Q4-6H PRN 30 days NS HPI Comments Details: 53-year-old female patient presenting for evaluation of a palpable lump noted in the left breast in the 03:00 location. She 1st noted the lump several months ago on self-examination and noted tenderness with palpation. This was confirmed on a recent polymerization supervisor exam by Dr. Garduno. The lump was noted in the 3 o'clock position approximately 3 cm from the nipple. She underwent mammogram and ultrasound on 06/26/2024. This revealed bilateral reduction mammoplasty changes with no significant masses, abnormal calcifications or other abnormalities in the right side. On the left side a BB marker in the left upper outer breast posterior depth without underlying abnormality at the site of the palpable lumps. A targeted ultrasound in the area of the palpable lump demonstrated a previously seen hypoechoic oval solid mass versus complicated cyst in the 2 o'clock position approximately 12 cm from the nipple measuring 5 x 6 x 2 mm with out significant change since 12/13/2020. This was felt to be benign. Patient reports bilateral reduction mammoplasties performed in 2008. This was complicated by wound separation in the right breast without infection. Reports tenderness in both breasts with palpation. She also has occasional whitish discharge crustiness in bilateral nipples. She is 8 para 4 menarche age 10, 1st at 18. Family history is significant for a maternal aunt with breast cancer as well as a niece. [facility] Medical History Well woman exam Dysphagia Abnormal finding on EKG Hx of flexible sigmoidoscopy Internal derangement of right shoulder Lump of left breast Lump of right breast Lump of axillary tail of right breast Chronic constipation Rotator cuff impingement syndrome of left shoulder Right forearm pain Colitis Hypertensive urgency Rotator cuff impingement syndrome Lateral epicondylitis of both elbows Fall IBS (irritable bowel syndrome) Abdominal bloating Tendinopathy of left rotator cuff History of TIA (transient ischemic attack) Hypercholesterolemia Vitamin D deficiency Multinodular thyroid Pancreatic cyst Thyroid nodule Diarrhea Rectal bleeding Esophageal spasm GERD (gastroesophageal reflux disease) Hypertension Asthma Kidney stones History of migraine headaches Fibromyalgia Allergic rhinitis Sciatic nerve pain Ovarian cyst Hypothyroidism Surgical History History of arthroscopic surgery of shoulder Hx of eye surgery History of breast lump/mass excision Hx of hemorrhoidectomy Hx of tubal ligation History of esophagogastroduodenoscopy (EGD) History of colonoscopy (~11/16/19) H/O: hysterectomy History of thyroidectomy (~11/2018) History of kidney surgery Hx of bilateral breast reduction surgery Hx of appendectomy History of cholecystectomy (~2003) H/O lithotripsy Family History Father Family history of high blood pressure History of high cholesterol Mother History of diabetes mellitus Family history of high blood pressure Family history of asthma History of fibromyalgia Liver disease Maternal Grandfather Colon cancer Family/Other Breast cancer Maternal Aunt Breast cancer Family/Other Breast cancer Social History Household Members: Spouse Household Members Other:: daughter Housing: Apartment Are you a primary career placement specialist to a significant other at home: No Do you presently have visiting nurse or other home services: No Alcohol intake: never Patient Tobacco Use Status: Former Tobacco user Tobacco use type: Cigarette Years Smoked: 15 e-Cigarette/Vaping Use: Never Used Second Hand Smoke Exposure: Yes Substance Use Type: Marijuana service: No Current occupational status: disabled Current occupation: right handed Sexual orientation: Straight/Heterosexual Gender identity: Female Cognitive needs: No Hearing needs: No Vision needs: Yes Female Reproductive History Menstrual Age of Menarche: 10 Age of menopause: 31 Total pregnancies: 7 Number of Living Children: 4 Ab spontaneous: 3 Review of Systems Const All systems reviewed & are unremarkable except as noted in HPI and below Physical Exam Vital Signs: Last Vital Signs Pulse 95 07/08/24 08:54 BP 165/99 H 07/08/24 08:54 BMI result Body Mass Index 37.5 Const General: cooperative and no acute distress Nutritional Appearance: well nourished Orientation/consciousness: patient oriented x3 Limitations: no limitations HEENT Head: Yes normocephalic and Yes atraumatic Ears: hearing grossly normal bilaterally Chest Other: Bilateral reduction mammoplasty scars which are all well healed. There is thickening of the scar bilaterally especially in the inframammary crease. Right breast: Diffuse fibrocystic change with tenderness but no suspicious skin changes, nipple discharge, palpable mass or enlarged lymph nodes Left breast: Diffuse fibrocystic change with slightly increased tenderness compared to the right side. Area described by the patient in the 3 o'clock position appears fibrocystic without a discrete mass noted. Site is very tender to palpation but no evidence of abscess or cyst formation. No other suspicious palpable mass, skin change, nipple discharge or enlarged lymph nodes. Resp Effort & Inspection: normal respiratory effort, no audible wheezes, no cough and no respiratory distress Cardio Jugular venous distension: no JVD GI Inspection: Yes normal to inspection Skin Other: Warm, dry, no rash Neuro General: patient oriented x3 Extrem General: Yes no clubbing, cyanosis or edema Assessment & Plan Assessment & Plan (1) Breast lump on left side at 3 o'clock position: Comment: L breast 0.5 cm lump tender 3 o'clock 3 cm from the nipple Code(s): N63.25 - Unspecified lump in the left breast, overlapping quadrants Category: Medical Plan 53-year-old female patient with a palpable breast lump noted in the 3 o'clock position of the left breast approximately 3 cm from the nipple noted on self- examination but confirmed on physical examination as well. Recent workup with mammogram and ultrasound revealed no suspicious changes. A stable cyst/nodule noted in the 2 o'clock position approximately 12 cm from the nipple has not changed since 2020 when 1st noted. This was felt to be benign. On examination bilateral breast tenderness is elicited on examination with bilateral fi brocystic change noted diffusely. Some of this may be scar tissue from the prior reduction mammoplasty although most appears to be mainly fibrocystic change. No suspicious findings were noted on my examination. I recommended continued self-examination and yearly mammograms. She is welcome to return as needed. Coding Level of Care Code New Pt Level 4 (03705) Diagnoses Breast lump on left side at 3 o'clock position N63.25
--- OUTSIDE RECORDS SUMMARY | 2024-07-08 08:33 | XMS_ITS | Clinical Summary ---
Author Organization [facility] Address [address] [place] [id number] Care Team Providers Care Catering Cook Name Role Phone Naomi Bains MD Primary [...] Vaccine (Season Ended) [address] [place] [id number] [facility] Medicaid [facility] Medicaid Care Teams Catering Cook Relationship Specialty Start Date End Date Naomi Bains MD [address] [place] [id number] PCP - General 03/08/20
--- OUTSIDE RECORDS SUMMARY | 2024-07-08 08:34 | XMS_ITS | Encounter Summary ---
Author Organization [facility] Address [address] [facility] [place] [address] Care Team Providers Care Hotel Front Office Manager Name Role Phone Naomi Bains MD Primary Care Provider Tommy Sellers MD Primary Care Provider Joanne vailable Encounter Details Date Type Department Care Team Description 06/10/2018 Release of Information Medical Records [address] [place] [id number] Abstract, Provider Social History Tobacco Use Types [...] on filedocumented in this encounter Care Teams Hotel Front Office Manager Relationship Specialty Start Date End Date Naomi Bains MD PCP - General Family Practice 05/27/18 06/27/18 Tommy Smith MD PCP - General Internal Medicine 06/28/18 documented as of this encounter
--- OUTSIDE RECORDS SUMMARY | 2024-07-08 08:34 | XMS_ITS | Encounter Summary ---
Author Organization [facility] Address [address] [facility] [place] [address] Care Team Providers Care Real Estate Professor Name Role Phone Tommy Smith MD Primary Care Provider Joanne vailable Reason for Visit * Reason Comments E-prescribe Rx Request Encounter Details Date Type Department Care Team Description 01/14/2019 Refill Pulmonology - [place] [address] [facility] [address] [place] [phone] Wil Vargas PA-C [address] [facility] [address] [place] [phone] E-prescribe Rx Request Social History Tobacco Use [...] MED LIST AND IS IDENTIFIED BELOW): {MED LIST:68361) Med name: benzonatate (TESSALON) 200 MG capsule Dosage: 200 mg # of tablets: 30 Local pharmacy with request for 30 -day supply Instructions: Take 1 Cap by mouth 3 times daily as needed for Cough for up to 30 days. Did you check the pharmacy information above?: YES Patients current insurance carrier: Payor: [employer] FFS / Plan: [employer] / Product Type: MEDICAID RISK documented in this encounter Plan of Treatment Not on file documented as of this encounter Visit Diagnoses Diagnosis Moderate persistent asthma without complication Unspecified asthma Cough Allergic rhinitis, unspecified seasonality, unspecified trigger documented in this encounter Care Teams Real Estate Professor Relationship Specialty Start Date End Date Tommy Smith MD PCP - General Internal Medicine 06/28/18 documented as of this encounter
--- OUTSIDE RECORDS SUMMARY | 2024-07-08 08:34 | XMS_ITS | Encounter Summary ---
Author Organization [facility] Address [address] [facility] [place] [address] Care Team Providers Care Claims Adjudicator Name Role Phone Tommy Smith MD Primary Care Provider Joanne vailable Reason for Visit * Reason Onset Date Comments APPOINTMENT 11/03/2020 Encounter Details Date Type Department Care Team Description 11/03/2020 Telephone Pulmonology - [place] [address] [facility] [address] [place] [address] Tommy Smith MD APPOINTMENT Social [...] she is now seeing another Dr[place]ia [place] so does not wish to schedule an appointment here. documented in this encounter Plan of Treatment Not on file documented as of this encounter Visit Diagnoses Not on filedocumented in this encounter Care Teams Claims Adjudicator Relationship Specialty Start Date End Date Tommy Smith MD PCP - General Internal Medicine 06/28/18 documented as of this encounter
--- OUTSIDE RECORDS SUMMARY | 2024-07-08 08:34 | XMS_ITS | Encounter Summary ---
Author Organization [facility] Address [address] [place] [address] Care Team Providers Care Machining Manager Name Role Phone Tommy Smith MD Primary Care Provider Joanne vailable Reason for Visit * Reason Comments E-prescribe Rx Request Encounter Details Date Type Department Care Team Description 11/12/2020 Refill Pulmonology - [place] [address] [facility] [address] [place] [address] Nguyen Morrison MD [address] [place] [phone] E-prescribe Rx Request Social History Tobacco Use [...] N/A Patients current insurance carrier is: Payor: [employer] FFS / Plan: [employer]/ [employer] / Product Type: MEDICAID RISK documented in this encounter Plan of Treatment Not on file documented as of this encounter Visit Diagnoses Diagnosis Moderate persistent asthma without complication Unspecified asthma Cough Allergic rhinitis, unspecified seasonality, unspecified trigger documented in this encounter Care Teams Machining Manager Relationship Specialty Start Date End Date Tommy Smith MD PCP - General Internal Medicine 06/28/18 documented as of this encounter
--- OUTSIDE RECORDS SUMMARY | 2024-07-08 08:34 | XMS_ITS | Encounter Summary ---
Author Organization [facility] Address [address] [place] [address] Care Team Providers Care Tennis Coach Name Role Phone Tommy Smith MD Primary Care Provider Joanne vailable Reason for Visit * Reason Comments E-prescribe Rx Request Encounter Details Date Type Department Care Team Description 08/11/2019 Refill Pulmonology - [place] [address] [facility] [address] [place] [phone] Wil Vargas PA-C [address] [facility] [address] [place] [phone] E-prescribe Rx Request Social History Tobacco Use [...] Sabrina- 06/28/18 Next- 08/28/[address] Fuentse. * Telephone Encounter - Garima Uriarte - [...] NO Patients current insurance carrier is: Payor: [employer] FFS / Plan: [employer] / Product Type: MEDICAID RISK * Telephone [...] trigger documented in this encounter Care Teams Tennis Coach Relationship Specialty Start Date End Date Tommy Smith MD PCP - General Internal Medicine 06/28/18 documented as of this encounter
--- OUTSIDE RECORDS SUMMARY | 2024-07-08 08:34 | XMS_ITS | Encounter Summary ---
Author Organization [facility] Address [address] [place] [address] Care Team Providers Care Commercial Collections Specialist Name Role Phone Tommy Smith MD Primary Care Provider Joanne vailable Reason for Visit * Reason Comments E-prescribe Rx Request Encounter Details Date Type Department Care Team Description 09/14/2020 Refill Pulmonology - [place] [address] [facility] [address] [place] [phone] Nguyen Morrison MD [address] [place] [phone] E-prescribe Rx Request Social History Tobacco Use [...] trigger documented in this encounter Care Teams Commercial Collections Specialist Relationship Specialty Start Date End Date Tommy Smith MD PCP - General Internal Medicine 06/28/18 documented as of this encounter
--- OUTSIDE RECORDS SUMMARY | 2024-07-08 08:34 | XMS_ITS | Encounter Summary ---
Author Organization [facility] Address [address] [place] [address] Care Team Providers Care Continuous Towel Roller Name Role Phone Tommy Smith MD Primary Care Provider Joanne vailable Reason for Visit * Reason Onset Date Comments APPOINTMENT 02/05/2019 Encounter Details Date Type Department Care Team Description 02/05/2019 Telephone Internal Medicine - [address], [address] [place] [address] Tommy Smith MD APPOINTMENT Social History Tobacco [...] on filedocumented in this encounter Care Teams Continuous Towel Roller Relationship Specialty Start Date End Date Tommy Smith MD PCP - General Internal Medicine 06/28/18 documented as of this encounter
[2024-07-08 08:54] VITALS: BP 165/99; PULSE 95; BMI 37.5
== END 2024-07-08 09:49 | disposition home or self-care (01) ==
LOC: HO.HGS 08:23
PROVIDERS: PCP Internal Medicine; Referring Provider Obstetrics & Gynecology; Visit Provider Surgery
DX: N63.25 Unspecified lump in the left breast, overlapping quadrants (principal)
CPT/HCPCS: 99204

== ENCOUNTER → 2024-07-08 08:22 | Outpatient (BNVA) | payer OTHER, SELFPAY | PROVIDERS: PCP Internal Medicine; Referring Provider Obstetrics & Gynecology; Visit Provider Surgery | DX: N63.25 Unspecified lump in the left breast, overlapping quadrants (principal) | CPT/HCPCS: 99202 ==

== ENCOUNTER 2024-07-22 08:53 | Outpatient (AMB) | payer OTHER, SELFPAY ==
[2024-07-22 08:58] VITALS: BP 152/110; PULSE 91; O2SAT 96; BMI 37.8
--- NOTE | 2024-07-22 08:58 | MHC.OFFVIS ---
Vital Signs 07/22/24 08:58 Height 5 ft 5 in Weight 227 lb 1.218 oz BMI 37.8 BP 152/110 H Blood Pressure Location Lt brachial Position Sitting Pulse 91 Pulse Source Pulse Oximeter Pulse Oximetry (%) 96 Oxygen Delivery Method Room Air Intake Visit Reasons: Hypothyroidism Intake Note: Patient present today for Hypothyroidism office visit. Simulation Engineer Required: No Accompanied by: Self / Same As Patient Allergies pineapple [PINEAPPLE] Allergy (Severe, Verified 07/22/24 09:02) ANAPHYLAXIS adhesive tape Allergy (Intermediate, Verified 07/22/24 09:02) Blister Iodinated Contrast Media [IV Dye, Iodine Containing] Allergy (Intermediate, Verified 07/22/24 09:02) SOB,RASH levofloxacin [From Levaquin] Allergy (Intermediate, Verified 07/22/24 09:02) swelling/rash oxycodone [From Percocet] Allergy (Intermediate, Verified 07/22/24 09:02) rash/SOB aspirin [ASA] Adverse Reaction (Mild, Verified 07/22/24 09:02) UPSET STOMACH HPI Comments Details: 53 YO Female with PMHx HTN, breast cancer in remission who is seen in F/U for postsurgical hypothyroidism after she underwent a total thyroidectomy 12/04/2018 for a multinodular thyroid. HPI from prior visits Surgery was uncomplicated, but the L inferior parathyroid gland did need to be re-implanted. 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 Interval history Now on levothyroxine 175 mcg daily for the past 8 weeks Forgot to do blood work She couldnt tolerate the tablets in the past due to severe acid reflux and indigestion , she does not get these symptoms with the capsule Reports improved tiredness, sleepiness, constipation improved. Physical exam General: sitting comfortably in no acute distress HEENT: normocephalic/atraumatic, Neck: supple, symmetrical Cardiac: normal heart sounds Pulm: normal breath sounds B/L, no added breath sounds Abd: not distended, no tenderness Extremities: no edema, no signs of myxedema Laboratory Tests 03/11/24 11:52 TSH 20.67 H Free T4 0.82 PFSH Medical History Well woman exam Dysphagia Abnormal finding on EKG Hx of flexible sigmoidoscopy Internal derangement of right shoulder Lump of left breast Lump of right breast Lump of axillary tail of right breast Chronic constipation Rotator cuff impingement syndrome of left shoulder Right forearm pain Colitis Hypertensive urgency Rotator cuff impingement syndrome Lateral epicondylitis of both elbows Fall IBS (irritable bowel syndrome) Abdominal bloating Tendinopathy of left rotator cuff History of TIA (transient ischemic attack) Hypercholesterolemia Vitamin D deficiency Multinodular thyroid Pancreatic cyst Thyroid nodule Diarrhea Rectal bleeding Esophageal spasm GERD (gastroesophageal reflux disease) Hypertension Asthma Kidney stones History of migraine headaches Fibromyalgia Allergic rhinitis Sciatic nerve pain Ovarian cyst Hypothyroidism Surgical History History of arthroscopic surgery of shoulder Hx of eye surgery History of breast lump/mass excision Hx of hemorrhoidectomy Hx of tubal ligation History of esophagogastroduodenoscopy (EGD) History of colonoscopy (~11/16/19) H/O: hysterectomy History of thyroidectomy (~11/2018) History of kidney surgery Hx of bilateral breast reduction surgery Hx of appendectomy History of cholecystectomy (~2003) H/O lithotripsy Family History Father Family history of high blood pressure History of high cholesterol Mother History of diabetes mellitus Family history of high blood pressure Family history of asthma History of fibromyalgia Liver disease Maternal Grandfather Colon cancer Family/Other Breast cancer Maternal Aunt Breast cancer Family/Other Breast cancer Social History Household Members: Spouse Household Members Other:: daughter Housing: Apartment Are you a primary child care cook to a significant other at home: No Do you presently have visiting nurse or other home services: No Alcohol intake: never Patient Tobacco Use Status: Former Tobacco user Tobacco use type: Cigarette Years Smoked: 15 e-Cigarette/Vaping Use: Never Used Second Hand Smoke Exposure: Yes Substance Use Type: Marijuana service: No Current occupational status: disabled Current occupation: right handed Sexual orientation: Straight/Heterosexual Gender identity: Female Cognitive needs: No Hearing needs: No Vision needs: Yes Female Reproductive History Menstrual Age of Menarche: 10 Assessment & Plan Assessment & Plan (1) Post-surgical hypothyroidism: Code(s): E89.0 - Postprocedural hypothyroidism Category: Medical Plan: 53-year-old female with postsurgical hypothyroidism who had been out of her medication for 4 months, now back on levothyroxine 175 mcg capsule daily. Reports improved symptoms.. She has not tolerated the levothyroxine tablets in the past, due to worsening acid reflux with a history of gastritis and she could not tolerate taking the tablets. She does well with the capsules. Last set of labs from February 2024 as expected showed TSH elevated at 20. Free T4 0.82. This was when she was out of the medication. She is due for blood work, forgot to do it prior to this appointment. Plan: -continue levothyroxine 175 mcg capsule daily -TSH and free T4 to be done now, we will reach out with the results -follow up in 5 months Plan See above Coding Level of Care Code Est Pt Level 3 (93956) Diagnoses Post-surgical hypothyroidism E89.0
--- OUTSIDE RECORDS SUMMARY | 2024-07-22 09:17 | XMS_ITS | Clinical Summary ---
Author Organization [facility] Facility Address [address] [place] [address] Care Team Providers Care Retail Equipment Associate Name Role Phone Naomi Bains MD Primary [...] Vaccine (Season Ended) 2024 [place] [id number] [facility] Medicaid [facility] Medicaid Care Teams Retail Equipment Associate Relationship Specialty Start Date End Date Naomi Bains MD [address] [place] [address] PCP - General 03/08/20
== END 2024-07-22 09:20 | disposition home or self-care (01) ==
LOC: HO.ENCR 08:54
PROVIDERS: PCP Internal Medicine; Visit Provider Student in an Organized Health Care Education/Training Program
DX: E89.0 Postprocedural hypothyroidism (principal)
CPT/HCPCS: 99213

== ENCOUNTER 2024-07-22 09:32 | Outpatient (REF) | payer OTHER, SELFPAY ==
[2024-07-22 11:06] LABS: Free T4 (Free Thyroxine) 0.75 ng/dL (0.71-1.85); Thyroid Stimulating Hormone 22.65 uIU/mL (0.32-4.0)
== END 2024-07-22 09:33 | disposition home or self-care (01) ==
LOC: HO.10HDL 09:32
PROVIDERS: Visit Provider Student in an Organized Health Care Education/Training Program
DX: E89.0 Postprocedural hypothyroidism (principal)
CPT/HCPCS: 36415; 84439; 84443; 99212

== ENCOUNTER 2024-08-04 09:18 | Outpatient (AMB) | payer OTHER, SELFPAY ==
[2024-08-04 09:20] VITALS: BP 146/102; BMI 37.8
--- NOTE | 2024-08-04 09:20 | MHC.OFFVIS ---
Vital Signs 08/04/24 09:20 Height 5 ft 5 in Weight 227 lb BMI 37.8 BP 146/102 H Intake Visit Reasons: ultrasound results Allergies pineapple [PINEAPPLE] Allergy (Severe, Verified 07/22/24 09:02) ANAPHYLAXIS adhesive tape Allergy (Intermediate, Verified 07/22/24 09:02) Blister Iodinated Contrast Media [IV Dye, Iodine Containing] Allergy (Intermediate, Verified 07/22/24 09:02) SOB,RASH levofloxacin [From Levaquin] Allergy (Intermediate, Verified 07/22/24 09:02) swelling/rash oxycodone [From Percocet] Allergy (Intermediate, Verified 07/22/24 09:02) rash/SOB aspirin [ASA] Adverse Reaction (Mild, Verified 07/22/24 09:02) UPSET STOMACH HPI Comments Details: Presenting for follow-up regarding her pelvic pain. Still complaining of left breast pain The following workup was done so far: Urinalysis was negative Pelvic ultrasound showed the following: IMPRESSION: Status post hysterectomy. The ovaries are not identified. Left breast diagnostic mammogram with ultrasound showed the following: IMPRESSION: Right: Benign. Left: 1. Solid mass versus complicated cyst at 2:00 12 cm from nipple not significantly changed from prior ultrasounds dating back for 2020 and therefore benign. 2. No other mammographic or sonographic abnormality to correlate with the patient's palpable lumps in the upper outer quadrant. Recommend clinical evaluation and follow-up. ASSESSMENT: BI-RADS BI-RADS 2 - Benign Findings The patient had a consult with Dr. Raines [facility] Medical History Well woman exam Dysphagia Abnormal finding on EKG Hx of flexible sigmoidoscopy Internal derangement of right shoulder Lump of left breast Lump of right breast Lump of axillary tail of right breast Chronic constipation Rotator cuff impingement syndrome of left shoulder Right forearm pain Colitis Hypertensive urgency Rotator cuff impingement syndrome Lateral epicondylitis of both elbows Fall IBS (irritable bowel syndrome) Abdominal bloating Tendinopathy of left rotator cuff History of TIA (transient ischemic attack) Hypercholesterolemia Vitamin D deficiency Multinodular thyroid Pancreatic cyst Thyroid nodule Diarrhea Rectal bleeding Esophageal spasm GERD (gastroesophageal reflux disease) Hypertension Asthma Kidney stones History of migraine headaches Fibromyalgia Allergic rhinitis Sciatic nerve pain Ovarian cyst Hypothyroidism Surgical History History of arthroscopic surgery of shoulder Hx of eye surgery History of breast lump/mass excision Hx of hemorrhoidectomy Hx of tubal ligation History of esophagogastroduodenoscopy (EGD) History of colonoscopy (~11/16/19) H/O: hysterectomy History of thyroidectomy (~11/2018) History of kidney surgery Hx of bilateral breast reduction surgery Hx of appendectomy History of cholecystectomy (~2003) H/O lithotripsy Family History Father Family history of high blood pressure History of high cholesterol Mother History of diabetes mellitus Family history of high blood pressure Family history of asthma History of fibromyalgia Liver disease Maternal Grandfather Colon cancer Family/Other Breast cancer Maternal Aunt Breast cancer Family/Other Breast cancer Social History Household Members: Spouse Household Members Other:: daughter Housing: Apartment Are you a primary career law clerk to a significant other at home: No Do you presently have visiting nurse or other home services: No Alcohol intake: never Patient Tobacco Use Status: Former Tobacco user Tobacco use type: Cigarette Years Smoked: 15 e-Cigarette/Vaping Use: Never Used Second Hand Smoke Exposure: Yes Substance Use Type: Marijuana service: No Current occupational status: disabled Current occupation: right handed Sexual orientation: Straight/Heterosexual Gender identity: Female Cognitive needs: No Hearing needs: No Vision needs: Yes Female Reproductive History Menstrual Age of Menarche: 10 Physical Exam Vital Signs: Last Vital Signs BP 146/102 H 08/04/24 09:20 BMI result Body Mass Index 37.8 Assessment & Plan Assessment & Plan (1) Pelvic pain: Code(s): R10.2 - Pelvic and perineal pain Category: Medical Plan: Discussed with the patient the results of the workup done including negative urine dip and pelvic ultrasound. Differential diagnosis of storage receipt poster causes that have not be ruled out yet include but not limited to endometriosis, pelvic adhesions , or others. Recommended for the patient to see her PCP for further workup for non storage receipt poster causes; if the all the results are negative and the patient's pelvic pain is persistent, instructions given to patient to call back for further testing. Meanwhile, instructions were given the patient to go to emergency room or call in case of fever above 100.4, heavy vaginal bleeding, persistence or worsening of her pelvic pain. All questions answered, the patient verbalized understanding. (2) Breast lump on left side at 1 o'clock position: Code(s): N63.21 - Unspecified lump in the left breast, upper outer quadrant Category: Medical Plan: Will reschedule follow-up appointment Dr. Raines, regarding breast pain, the the patient is interested in surgical management in order to resolve her left breast pain. Coding Level of Care Code Est Pt Level 3 (24557) Diagnoses Pelvic pain R10.2 Breast lump on left side at 1 o'clock position N63.21
--- OUTSIDE RECORDS SUMMARY | 2024-08-04 09:43 | XMS_ITS | Clinical Summary ---
Author Organization [facility] Facility Address [address] [place] [id number] Care Team Providers Care Drying Oven Tender Name Role Phone Naomi Bains MD Primary [...] Influenza Vaccine (Season Ended) 2024 [facility] [place] [id number] [facility] Medicaid [facility] Medicaid Care Teams Drying Oven Tender Relationship Specialty Start Date End Date Naomi Bains MD [address] [place] [id number] PCP - General 03/08/20
== END 2024-08-04 09:42 | disposition home or self-care (01) ==
LOC: HO.HWS 09:18
PROVIDERS: PCP Physician Assistant; Visit Provider Obstetrics & Gynecology
DX: R10.2 Pelvic and perineal pain (principal); N63.21 Unspecified lump in the left breast, upper outer quadrant
CPT/HCPCS: 99213

== ENCOUNTER → 2024-08-04 09:18 | Outpatient (BNVA) | payer OTHER, SELFPAY | PROVIDERS: PCP Physician Assistant; Visit Provider Obstetrics & Gynecology | DX: R10.2 Pelvic and perineal pain (principal); N63.21 Unspecified lump in the left breast, upper outer quadrant; Z90.710 Acquired absence of both cervix and uterus | CPT/HCPCS: 99212 ==

== ENCOUNTER 2024-08-14 07:54 | Outpatient (AMB) | payer OTHER, SELFPAY ==
--- OUTSIDE RECORDS SUMMARY | 2024-08-14 07:58 | XMS_ITS | Clinical Summary ---
Author Organization [facility] Facility Address [address] [place] [id number] Care Team Providers Care Soa Integration Developer Name Role Phone Naomi Bains MD [...] (Season Ended) 2024 [facility] [place] [id number] [facility] Medicaid [facility] Medicaid Care Teams Soa Integration Developer Relationship Specialty Start Date End Date Naomi Bains MD [address] [place] [id number] PCP - General 03/08/20
--- NOTE | 2024-08-14 08:06 | MHC.OFFVIS ---
Vital Signs 08/14/24 08:07 Height 5 ft 5 in Weight 200 lb BMI 33.3 BP 148/95 H Blood Pressure Location Lt brachial Position Sitting Pulse 94 Pulse Oximetry (%) 96 Oxygen Delivery Method Room Air Intake Visit Reasons: 3 mo Intake Note: Patient 3 month follow up for abdominal pain. Patient cc: sharp abdominal pain on her left side with bloating and burning sensation and a lump, between diarrhea and constipation with headaches as soon she do BM, acid reflux and swallowing difficulty. 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 Accompanied by: Self / Same As Patient Allergies pineapple (PINEAPPLE) Allergy (Severe, Verified 09/22/24 08:44) ANAPHYLAXIS adhesive tape Allergy (Intermediate, Verified 09/22/24 08:44) Blister Iodinated Contrast Media (IV Dye, Iodine Containing) Allergy (Intermediate, Verified 09/22/24 08:44) SOB,RASH levofloxacin (From Levaquin) Allergy (Intermediate, Verified 09/22/24 08:44) swelling/rash oxycodone (From Percocet) Allergy (Intermediate, Verified 09/22/24 08:44) rash/SOB aspirin (ASA) Adverse Reaction (Mild, Verified 09/22/24 08:44) UPSET STOMACH Medication List - Last Reconciled 08/14/24 by Sky Horton MD amlodipine 10 mg PO DAILY atorvastatin (Lipitor) 10 mg PO DAILY budesonide-formoterol 160-4.5 mcg/actuation (Symbicort) 2 puffs inhalation BID cholecalciferol (vitamin D3) (Vitamin D3) 50 mcg PO DAILY diclofenac sodium 50 mg PO DAILY 30 days diphenhydramine HCl (Benadryl Allergy) 25 mg orally one tablet this evening and one tablet tomorrow am; docusate sodium 100 mg PO BID famotidine 20 mg PO BEDTIME PRN hydrochlorothiazide 25 mg PO DAILY ipratropium bromide 2 sprays intranasal TID 30 days ipratropium-albuterol 0.5 mg-3 mg(2.5 mg base)/3 mL 3 mL inhalation Q4-6H PRN levothyroxine (Tirosint) 200 mcg PO DAILY lisinopril 40 mg PO DAILY 90 days lorazepam 1 mg PO ONCE PRN metoprolol tartrate 100 mg PO BID 90 days mupirocin 2% 1 appl topical BID 30 days omalizumab (Xolair) 300 mg (2 mL) subcut Q2W omeprazole 40 mg (2 x 20 mg) PO DAILY ondansetron 4 mg PO Q8H PRN 30 days pyridoxine (vitamin B6) 100 mg PO DAILY tramadol 50 mg PO Q8H PRN Ventolin HFA 90 mcg/actuation (albuterol sulfate) 2 puffs inhalation Q4-6H PRN 30 days NS vonoprazan (Voquezna) 20 mg PO DAILY 8 weeks HPI HPI 3 mo: Details: GI Clinic visit for this 53-year-old female for evaluation of diarrhea and abdominal bloating Pt had severe watery diarrhea which lasted for several weeks after her thyroid surgery. Pt was seen at [facility] ED on 12/18/22 with worsening abd pain and labs showed an elevated lipase of 118 TODAY'S VISIT: Patient cc: Patient cc: sharp abdominal pain on her left side with bloating and burning sensation and a lump, between diarhea and constipation, acid reflux and swallowing difficulty. Has to use the bathroom 15 or 20 min after eating. Has HAs during a BM and feels dizzy and BROWNE lasts 2-3 hours Has diarrhea alternating with constipation alternating with mushy stools. Has diarrhea 50% of the time and constipation 50% of the time. Notes LUQ (stabbing and burning) with a visible lump - not related to eating Pain improves with SL hyoscyamine. Notes HB in the am - has to take her thyroid medication first and wait 2 hrs and then takes the rest of her medication. Complains of dysphagia to solids and liquids and even her saliva. PAST VISITS: Having BROWNE - gets pounding HAs when she has acid reflux. Had a 30 day heart monitor. Lost her paternal aunt a month ago - (had a stroke and a heart attack last year and was bedridden). Also had stomach issues and a feeding tube) Pt is not feeling well for the past year. Has bad diarrhea 4 - 5 times - watery stool followed by soft stool and then watery stool again. Takes Gatorade and pedialyte. Had abd pain after she had ketchup. Has nasty burps and whole mouth barajas when they come up. Taking Omeprazole twice a day for GERD Epigastric pain radiating to LUQ and back. PAST VISITS: EGD and colon results were reviewed. Not feeling good - stomach has been hurting more and more. Continues to have diarrhea 5-6 times a day - has diarrhea when she goes to pee Every time she eats, she has to go to the bathroom Noted difficulty swallowing while drinking a smoothie. Poop is sarah - coffee grain material in the poop on toilet paper - green Had a lot of pain that day. Has gained weight - attributes to thyroid issues. Has to see the nurse every 2 weeks to have her blood pressure checked. PAST VISITS: Not good, stomach hurts, intermittent watery diarrhea which is yellow in color Watery diarrhea for a few days and then constipation Has diarrhea 4 days per week (5 times a day) and constipation for the rest of the week Has not had a normal BM in the past several months Takes soups when she has the diarrhea and avoids taking solids. Continues to have constant nausea, bloating and burping. PAST VISITS: Denies any change in symptoms Constantly burping associated with regurgitation of liquids and feels like she is drowning Taking Omeprazole and is working a little bit. Hardly eat since has nausea and abdominal pain when she eats Horrible nausea Has diarrhea alternating with constipation. Denies having a normal BM in years Unable to sleep at night due to regurgitation. Sleeping side ways with the pillow elevated. Patient cc: abdominal pain/bloating, GERD with burning sensation,between diarrhea and constipation, water is coming with burps and she can not breath when that happened to her, also she is not eating well due the abdominal pain/loosing weight. Nauseas and Vomit, acid reflex with burning sensation and some swallowing problems Loosing weight too fast, loosing hair, cant keep anything in her stomach. Unable to eat without vomiting or diarrhea. Constant abdominal pain. Has diarrhea alternating with constipation. No BM x 3 days Advised GFD. Pt states she tried a GFD in the past ? for 1-2 years and willing to try it again LABS [email or web address]: 11/15 REVIEWED. ? Stool studies were negative for C Diff, calprotectin was normal and stool fat was elevated ? Stool electrolytes could not be performed since stool was formed ? Serum gastrin was elevated and normal on repeat testing after holding Omeprazole. ?IMAGING STUDIES: 03/16/22 BARIUM SWALLOW SHOWED: -Spontaneous gastroesophageal reflux to the level mid thoracicesophagus. -Bridging anterior osteophytes mid to lower cervical spine. Swellingfunction unremarkable. -No stricture, ulceration, or hiatal hernia. 01/[address] SCAN SHOWED:? 2 mm small radiopaque calculi nonobstructive lower pole right kidney? and mid pole left kidney. There are extrarenal kidney pelvises seen.? Mild constipation without obstruction. No evidence of panniculitis or diverticulitis. Small hiatal hernia.? Fatty lesion anterior body/tail of pancreas junction is stable. 02/15/2018:? ABD MRI SHOWED:Status post cholecystectomy.? No MRI evidence of intra or extrahepatic biliary obstruction, filling defects or stones.Pancreatic metrics incised are normal, no pancreatic mass found ENDOSCOPIC STUDIES: 11/22/23 EGD AND COLON SHOWED: Endoscopy Findings: Esophagus: GE junction at 32 cm, diaphragm hiatus at 35 cm, consistent with 3 cm sliding hiatal hernia, erosive esophagitis noted, LA grade A --esophageal inlet patch noted Stomach: Patchy erythema. Biopsies were obtained. Grade 2 flap valve on retroflexed examination of the cardia. Duodenum: Normal bulb and descending duodenum, bx taken Colonoscopy Findings: internal hemorrhoids with skin tags Plan: Await Pathology results Repeat Colonoscopy in 1 year due to areas of fair prep or earlier if clinically indicated High fiber diet leaflet avoid straining at stool, epsom salts and sitz bath, anusol supps or cream reflux precautions if H pylori pos then treat amyloids, IGG4 staining and mast cells was negative 12/22/22 EGD SHOWED: Endoscopy Findings:LARYNX: Changes suggestive of LPRD ESOPHAGUS: Hiatal hernia STOMACH: Diffuse gastritis DUODENUM: Two 2-3 mm superficial ulcers in the bulb and normal descending duodenum. Plan: Above findings were reviewed with the patient and Hiatal Hernia and PUD handouts were given in the discharge area [facility] Medical History (Updated 09/30/24 @ 15:20 by Pravin Odonnell MD) Well woman exam Dysphagia Abnormal finding on EKG Hx of flexible sigmoidoscopy Internal derangement of right shoulder Lump of left breast Lump of right breast Lump of axillary tail of right breast Chronic constipation Rotator cuff impingement syndrome of left shoulder Right forearm pain Colitis Hypertensive urgency Rotator cuff impingement syndrome Lateral epicondylitis of both elbows Fall IBS (irritable bowel syndrome) Abdominal bloating Tendinopathy of left rotator cuff History of TIA (transient ischemic attack) Hypercholesterolemia Vitamin D deficiency Multinodular thyroid Pancreatic cyst Thyroid nodule Diarrhea Rectal bleeding Esophageal spasm GERD (gastroesophageal reflux disease) Hypertension Asthma Kidney stones History of migraine headaches Fibromyalgia Allergic rhinitis Sciatic nerve pain Ovarian cyst Hypothyroidism Surgical History (Updated 10/02/24 @ 14:48 by Daija Genao RN) History of carpal tunnel release (09/25/24) History of arthroscopic surgery of shoulder Hx of eye surgery History of breast lump/mass excision Hx of hemorrhoidectomy Hx of tubal ligation History of esophagogastroduodenoscopy (EGD) History of colonoscopy (~11/16/19) H/O: hysterectomy History of thyroidectomy (~11/2018) History of kidney surgery Hx of bilateral breast reduction surgery Hx of appendectomy History of cholecystectomy (~2003) H/O lithotripsy (04/30/24) Family History Father Family history of high blood pressure History of high cholesterol Mother History of diabetes mellitus Family history of high blood pressure Family history of asthma History of fibromyalgia Liver disease Maternal Grandfather Colon cancer Family/Other Breast cancer Maternal Aunt Breast cancer Family/Other Breast cancer Social History Household Members: Spouse Household Members Other:: daughter Housing: Apartment Are you a primary healthcare administration intern to a significant other at home: No Do you presently have visiting nurse or other home services: No Alcohol intake: never Patient Tobacco Use Status: Former Tobacco user Tobacco use type: Cigarette Years Smoked: 15 e-Cigarette/Vaping Use: Never Used Second Hand Smoke Exposure: Yes Substance Use Type: Marijuana service: No Current occupational status: disabled Current occupation: right handed Sexual orientation: Straight/Heterosexual Gender identity: Female Cognitive needs: No Hearing needs: No Vision needs: Yes Female Reproductive History Menstrual Age of Menarche: 10 Review of Systems Const All systems reviewed & are unremarkable except as noted in HPI and below Physical Exam Vital Signs: Last Vital Signs Pulse 94 08/14/24 08:07 BP 148/95 H 08/14/24 08:07 Pulse Ox 96 08/14/24 08:07 Oxygen Delivery Method Room Air 08/14/24 08:07 BMI result Body Mass Index 33.3 Const General: healthy appearing and no acute distress Nutritional Appearance: obese Orientation/consciousness: patient oriented x3 Limitations: no limitations HEENT Head: Yes normal to inspection Ears: hearing grossly normal bilaterally Eyes Sclerae: sclerae normal Pupils: Equal, round and reactive pupils present Neck Neck: Yes normal visual inspection Chest Chest palpation & inspection: normal inspection of the chest Resp Effort & Inspection: normal respiratory effort Auscultation: clear to auscultation bilaterally Cardio Palpation: normal PMI Rate: regular rate Rhythm: regular rhythm Heart sounds: S1 normal heart sound present, S2 normal heart sound present and no murmurs GI Palpation (GI): Soft to palpation, nontender and No hepatosplenomegaly present Auscultation: normal bowel sounds Rectal Exam - Female: deferred Skin General skin exam: no rashes or lesions noted Neuro General: patient oriented x3, gait normal and moves all extremities Cranial nerves: Yes Equal, round and reactive pupils present Psych Appearance: grossly normal Mental Status: mental status grossly normal Assessment & Plan Assessment & Plan (1) Esophageal spasm: Code(s): K22.4 - Dyskinesia of esophagus Category: Medical (2) Pancreatic cyst: Comment: 8 mm cystic lesion in the pancreas - stable since 2013. Plan is to continue to follow with imaging every 2 years. If size increases to > 1 cms,she will need further evaluation with EUS/MRCP. 02/[address] scan showed Fatty lesion anterior body/tail of pancreas junction is stable. Code(s): K86.2 - Cyst of pancreas Category: Medical (3) GERD (gastroesophageal reflux disease): Code(s): K21.9 - Gastro-esophageal reflux disease without esophagitis Category: Medical (4) Intermittent constipation: Code(s): K59.09 - Other constipation Category: Medical (5) Abdominal pain: Code(s): R10.9 - Unspecified abdominal pain Category: Medical (6) Chronic diarrhea: Code(s): K52.9 - Noninfective gastroenteritis and colitis, unspecified Category: Medical (7) Small intestinal bacterial overgrowth: Code(s): K63.8219 - Small intestinal bacterial overgrowth, unspecified Category: Medical Plan 53 YF with htn, fibromyalgia, asthma, migraine BROWNE with long history of abdominal pain associated with diarrhea and bloating, constipation alternating with diarrhea with symptoms suggestive of outlet delay. Abdominal pain is likely due to IBS with constipation and diarrhea. Patient notes partial improvement in symptoms with senna, she has not used a suppository or enema in the past.? She tried dicyclomine in the past and was not helpful for abdominal pain. Patient had a colonoscopy on 11/18/19? for evaluation of rectal bleeding which revealed diverticulosis and no polyps.? Random biopsies obtained from the colon were negative for inflammation. 08/2020 Anorectal manometry with balloon expulsion testing at [facility] showed: IMPRESSIONS: Borderline anal hypertension and borderline anal hypocontractility (overall anal sphincter strength lower than average for gender) Abnormal balloon expulsion with normal manometric pattern of rectoanal coordination normal rectal propulsive force and normal anal relaxation with push) This is considered an inconclusive finding that can also be seen in normal controls according to the Wu classification. Mild rectal hypersensitivity suggestive of chronic constipation She complains of constipation x 2-3 days followed by soft/watery stools lasting for half a day. Patient was advised to take Miralax every other day for constipation and take Rifaximin x 14 days for suspected SIBO. Takes Miralax intermittently Pt was advised to go on a clear liquid diet and take Mag Citrate to clean out her colon. Then start taking Linzess for constipation. 01/30/22 - pt was advised stool studies, start a probiotic and increase sucralfate to 3-4 times daily 03/16/22 Pt was switched from Omeprazole to Pantoprazole 40 mg twice daily and started on Amitriptyline 25 mg at bedtime. 04/28/22 Amitriptyline dose was increased to 50 mg at bedtime Pt's wt gain is likely related to elevated TSH levels - repeat TSH planned in [address] Humphrey 11/30/22 Pt complains of left sided abd pain, bloating and worsening GERD symptoms after she was advised to take the Pantoprazole later in the day and stop sucralfate due to suspected drug interaction with Levothyroxine. Pt was advised to increase pantoprazole to 40 mg twice daily and amitriptyline to 75 mg at bedtime She will be scheduled for an EGD (last EGD in 2018 showed a small hiatal hernia and gastritis - no HP on bx) - scheduled on 12/22/22. 12/21/22 Pt seen with worsening upper abdominal pain, nausea, vomiting and unable to tolerate PO food. Pt had an elevated lipase on 12/18/22 Pt advised to return to the ED for repeat labs, lipase and a CT scan with IV contrast. She will need to be admitted if lipase remains elevated for bowel rest and IVF Repeat lipase was normal. ABD CT SCAN SHOWED: PANCREAS: Edematous appearing pancreas with peripancreatic stranding. This appears more pronounced than the 08/08/2020 examination. No peripancreatic fluid collections. No dilatation of the main pancreatic duct. CT findings were reviewed with the patient. 12/22/22 EGD was performed in findings as noted above. Order placed for MRCP for FU of pancreatitis Of note pt is status post lap macy and had a normal triglyceride level a few months ago. Pt advised to schedule an appt with Endocrinology 05/03/23 Lab and MRI results reviewed. Vaguely recall being treated with steroids in the past (? 2006). Complains of nausea and postprandial vomiting. Has been loosing weight. IgG4 level was elevated at 166.8 Additional lab, urine and stool test were ordered and not done yet - pt advised to complete ADDENDUM: 05/17/23 Pt called an lab results reviewed: Having watery stools for the past two weeks with bowel accidents Notes post prandial diarrhea which is very smelly. Stool appears greasy and sometime pale with white dots. No one is sick at home. Having 1 meal a day (rice, beans, chicken, eggs and toast) and keeps loosing weight. Started on antibiotics for suspected SIBO and has been taking it without improvement in symptoms. Pt with long hx of Abd pain, diarrhea alternating with constipation initially diagnosed with IBS Enlarged pancreas on past CT and MRI showed a normal pancreas Elevated Ig G4 levels without other clinical signs of Ig G4 related disease 06/01/[address] Alegre for a 2nd opinion and additional labs were ordered and pt scheduled for EGD and colon 04/17/24 Ida of antibiotics for suspected SIBO Going to [place] in April (GS is graduating from the [employer]) 08/14/24 LUQ (stabbing and burning) with a visible lump - not related to eating and diarrhea alternating with constipation alternating with mushy stools. Pt advised to schedule an upper endoscopy (GERD, dysphagia & abd pain) and colonoscopy (sub-optimal prep on pst colonoscopy). FU in 3 month - scheduled 10/30/24 Orders: Orders Calprotectin, Fecal 08/14/24 R10.9 - Unspecified abdominal pain Immunoglobulin G 08/14/24 R10.9 - Unspecified abdominal pain Lipase 08/14/24 R10.9 - Unspecified abdominal pain Medications: New polyethylene glycol 3350 (Miralax) Mix Miralax with 64 oz(8 cups) of Crystal light. Take 2 tablets of Dulcolax qt 12 pm. Wait to have your 1st bowel movement, then begin drinking Miralax. Drink a glass of Miralax every 10-15 minutes until you are finished. You will drink at least another 4 cups of clear liquid of your choice over the next 2 hours. Please drink as many clear liquids as possible You may have clear liquids up to four hours before your procedure 17 grams PO DAILY 238 grams 0RF colon prep 1 day vonoprazan (Voquezna) 20 mg PO DAILY 56 tabs 0RF 8 weeks K21.9 - Gastro-esophageal reflux disease without esophagitis bisacodyl (Dulcolax (bisacodyl)) Take 2 tablets at 12 pm starting 5 days colonoscopy appointment 10 mg (2 x 5 mg) PO ONCE 10 tabs 0RF colon prep 5 days Coding Level of Care Code Est Pt Level 4 (58354) Diagnoses Esophageal spasm K22.4 Pancreatic cyst K86.2 GERD (gastroesophageal reflux disease) K21.9 Intermittent constipation K59.09 Abdominal pain R10.9 Chronic diarrhea K52.9 Small intestinal bacterial overgrowth K63.8219 Time Spent (min) 24
[2024-08-14 08:07] VITALS: BP 148/95; PULSE 94; O2SAT 96; BMI 33.3
== END 2024-08-14 09:58 | disposition home or self-care (01) ==
LOC: HO.HGI 07:55
PROVIDERS: PCP Internal Medicine; Visit Provider Internal Medicine Gastroenterology
DX: K22.4 Dyskinesia of esophagus (principal); K86.2 Cyst of pancreas; K21.9 Gastro-esophageal reflux disease without esophagitis; K59.09 Other constipation; R10.9 Unspecified abdominal pain; K52.9 Noninfective gastroenteritis and colitis, unspecified; K63.8219 Small intestinal bacterial overgrowth, unspecified
CPT/HCPCS: 99214

== ENCOUNTER → 2024-08-14 07:54 | Outpatient (BNVA) | payer OTHER, SELFPAY | PROVIDERS: PCP Internal Medicine; Visit Provider Internal Medicine Gastroenterology | DX: K22.4 Dyskinesia of esophagus (principal); K86.2 Cyst of pancreas; K21.9 Gastro-esophageal reflux disease without esophagitis; K59.09 Other constipation; K52.9 Noninfective gastroenteritis and colitis, unspecified; R10.9 Unspecified abdominal pain; K63.8219 Small intestinal bacterial overgrowth, unspecified | CPT/HCPCS: 99212 ==

== ENCOUNTER 2024-08-15 08:56 | Outpatient (AMB) | payer OTHER, SELFPAY ==
--- NOTE | 2024-08-15 08:57 | A.OFFVIS_ITS ---
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 Allergies pineapple (PINEAPPLE) Allergy (Severe, Verified 08/14/24 08:06) ANAPHYLAXIS adhesive tape Allergy (Intermediate, Verified 08/14/24 08:06) Blister Iodinated Contrast Media (IV Dye, Iodine Containing) Allergy (Intermediate, Verified 08/14/24 08:06) SOB,RASH levofloxacin (From Levaquin) Allergy (Intermediate, Verified 08/14/24 08:06) swelling/rash oxycodone (From Percocet) Allergy (Intermediate, Verified 08/14/24 08:06) rash/SOB aspirin (ASA) Adverse Reaction (Mild, Verified 08/14/24 08:06) UPSET STOMACH Medication List - Last Reconciled 08/15/24 by Lisa Lilly NP-C amlodipine 10 mg PO DAILY atorvastatin (Lipitor) 10 mg PO DAILY bisacodyl (Dulcolax (bisacodyl)) 10 mg (2 x 5 mg) PO ONCE 5 days budesonide-formoterol 160-4.5 mcg/actuation (Symbicort) 2 puffs inhalation BID cholecalciferol (vitamin D3) (Vitamin D3) 50 mcg PO DAILY diclofenac sodium 50 mg PO DAILY 30 days diphenhydramine HCl (Benadryl Allergy) 25 mg orally one tablet this evening and one tablet tomorrow am; docusate sodium 100 mg PO BID famotidine 20 mg PO BEDTIME PRN hydrochlorothiazide 25 mg PO DAILY ipratropium bromide 2 sprays intranasal TID 30 days ipratropium-albuterol 0.5 mg-3 mg(2.5 mg base)/3 mL 3 mL inhalation Q4-6H PRN levothyroxine (Tirosint) 200 mcg PO DAILY lisinopril 40 mg PO DAILY 90 days lorazepam 1 mg PO ONCE PRN metoprolol tartrate 100 mg PO BID 90 days mupirocin 2% 1 appl topical BID 30 days omalizumab (Xolair) 300 mg (2 mL) subcut Q2W omeprazole 40 mg (2 x 20 mg) PO DAILY ondansetron 4 mg PO Q8H PRN 30 days polyethylene glycol 3350 (Miralax) 17 grams PO DAILY 1 day pyridoxine (vitamin B6) 100 mg PO DAILY tramadol 50 mg PO Q8H PRN Ventolin HFA 90 mcg/actuation (albuterol sulfate) 2 puffs inhalation Q4-6H PRN 30 days NS vonoprazan (Voquezna) 20 mg PO DAILY 8 weeks HPI HPI 4 mth f/up: Details: Gloria is a 53-year-old female with past medical history of obesity, hypertension, hyperlipidemia who has undergone evaluation for chest discomfort and heart palpitations without significant findings who has been reporting episodes of brief vision loss and blurred vision. She did undergo a carotid ultrasound and CTA of the head and neck without acute findings. Today she reports that she is still having issues with her vision. She still notices brief loss of vision in both eyes lasting seconds, especially during physical activity. She says she has seen Dr. Smith and he is ordering an MRI and an exercise stress test for her. Her vision is normal at this time. She does get periodic heart palpitations and did notice palpitations when she w ore the cardiac event monitor. She has random chest discomfort which occurs at rest she believes is related to her fibromyalgia. No chest discomfort or palpitations brought on by physical activity. No concerning shortness of breath, no PND, orthopnea or edema. No presyncope, syncope, falls. She has had no weakness of her extremities or mobility issues. Taking all meds as directed. [facility] Medical History Well woman exam Dysphagia Abnormal finding on EKG Hx of flexible sigmoidoscopy Internal derangement of right shoulder Lump of left breast Lump of right breast Lump of axillary tail of right breast Chronic constipation Rotator cuff impingement syndrome of left shoulder Right forearm pain Colitis Hypertensive urgency Rotator cuff impingement syndrome Lateral epicondylitis of both elbows Fall IBS (irritable bowel syndrome) Abdominal bloating Tendinopathy of left rotator cuff History of TIA (transient ischemic attack) Hypercholesterolemia Vitamin D deficiency Multinodular thyroid Pancreatic cyst Thyroid nodule Diarrhea Rectal bleeding Esophageal spasm GERD (gastroesophageal reflux disease) Hypertension Asthma Kidney stones History of migraine headaches Fibromyalgia Allergic rhinitis Sciatic nerve pain Ovarian cyst Hypothyroidism Surgical History History of arthroscopic surgery of shoulder Hx of eye surgery History of breast lump/mass excision Hx of hemorrhoidectomy Hx of tubal ligation History of esophagogastroduodenoscopy (EGD) History of colonoscopy (~11/16/19) H/O: hysterectomy History of thyroidectomy (~11/2018) History of kidney surgery Hx of bilateral breast reduction surgery Hx of appendectomy History of cholecystectomy (~2003) H/O lithotripsy Family History Father Family history of high blood pressure History of high cholesterol Mother History of diabetes mellitus Family history of high blood pressure Family history of asthma History of fibromyalgia Liver disease Maternal Grandfather Colon cancer Family/Other Breast cancer Maternal Aunt Breast cancer Family/Other Breast cancer Social History Household Members: Spouse Household Members Other:: daughter Housing: Apartment Are you a primary family member caretaker to a significant other at home: No Do you presently have visiting nurse or other home services: No Alcohol intake: never Patient Tobacco Use Status: Former Tobacco user Tobacco use type: Cigarette Years Smoked: 15 e-Cigarette/Vaping Use: Never Used Second Hand Smoke Exposure: Yes Substance Use Type: Marijuana service: No Current occupational status: disabled Current occupation: right handed Sexual orientation: Straight/Heterosexual Gender identity: Female Cognitive needs: No Hearing needs: No Vision needs: Yes Female Reproductive History Menstrual Age of Menarche: 10 Review of Systems Const All systems reviewed & are unremarkable except as noted in HPI and below Denies chills, Denies fatigue, Denies fever(s), Denies frequent falls, Denies weakness, Denies weight gain and Denies weight loss Eyes Reports blurry vision and Reports loss of vision (brief episodes - still occurring) ENT Denies dizziness Card Denies chest pain, Denies leg edema, Denies lightheadedness, Denies palpitations, Denies dyspnea, Denies dyspnea on exertion, Denies orthopnea and Denies other (loss of consciousness) Resp Denies cough, Denies dyspnea and Denies dyspnea on exertion GI Denies hematochezia and Denies change in stool character Musc Denies abnormal gait, Denies muscle weakness, Denies numbness, Denies radiating pain into limb and Denies tingling Neuro Denies abnormal gait, Denies dizziness, Denies frequent falls, Reports loss of vision (brief episodes - still occurring), Denies numbness, Denies tingling and Denies weakness Endo Denies fatigue and Denies palpitations Physical Exam Vital Signs: Last Vital Signs Pulse 94 08/15/24 09:02 BP 120/80 08/15/24 09:02 BMI result Body Mass Index 37.0 Const General: cooperative, healthy appearing, comfortable and no acute distress Orientation/consciousness: patient oriented x3 Neck Neck: Yes normal visual inspection and Yes no JVD Resp Effort & Inspection: normal respiratory effort Auscultation: clear to auscultation bilaterally, no rales, no rhonchi and no wheezes Cardio Rate: regular rate Rhythm: regular rhythm Heart sounds: S1 normal heart sound present, S2 normal heart sound present, no gallops, no murmurs and no rubs Neuro General: patient oriented x3 Extrem General: Yes normal to inspection, No no pedal edema and No calf tenderness Psych Appearance: grossly normal Mental Status: mental status grossly normal Speech and movement: Normal speech and movement present Assessment & Plan Assessment & Plan (1) Alteration in vision: Code(s): H54.7 - Unspecified visual loss Category: Medical Plan: On visit, 11/15/2023 she reported an episode of brief visual loss, each eye, lasting seconds. No speech or mobility issues. A carotid ultrasound was done on 11/26/2023 showing normal right ICA, minimal, non hemodynamically significant stenosis of the proximal left ICA, 0-49% stenosis. On follow-up she reported recurrent episodes which were concerning for amaurosis fugax and CTA of the head and neck was done 02/19/2024 showing no acute abnormalities. She was instructed to to follow with her up software engineer web applications Dr. Smith, whom she has seen recently. She tells me he has ordered an MRI and an exercise stress test for her. A prior stress test was normal. A cardiac event monitor showed no PAF. Further cardiac testing will be added as needed/requested. Informed her that if she has any new or concerning symptoms she should seek emergency medical care HAROLDO. (2) History of TIA (transient ischemic attack): [place] [facility] [place]-no residual Code(s): Z86.73 - Personal history of transient ischemic attack (TIA), and cerebral infarction without residual deficits Category: Medical Plan: As above (3) Palpitations: Code(s): R00.2 - Palpitations Category: Medical Plan: Reports of intermittent heart palpitations without significant findings. She has been on metoprolol at 100 mg b.i.d. and continues to report symptoms. EKG done on prior visit showed sinus tachycardia, rate 106, normal [place], QRS and QTC intervals. Holter monitor done on 12/04/2023 for 5 days showed sinus rhythm with average heart rate 93, no significant ectopy seen. Cardiac event monitor 03/10/2024, worn for 14.5 days showed sinus rhythm with frequent sinus tachycardia, average rate 86 beats per minute, no significant arrhythmia. Labs done 07/22/2024 shows TSH 22.65. She is on levothyroxine. Her symptom is most likely related to sinus tachycardia. There has been no evidence of atrial fibrillation or any other significant arrhythmia. Offered reassurance. Reviewed good hydration, getting adequate rest, limiting caffeine and anxiety control. (4) Precordial chest pain: Code(s): R07.2 - Precordial pain Category: Medical Plan: Prior Reports of Atypical sounding chest discomfort. Cardiac testing with Echocardiogram done 09/11/2023 showing EF 60-65%, mild LVH, impaired relaxation, no valve abnormalities. Exercise stress echocardiogram done 11/06/2023 with exercise 6 minutes, report of mild chest tightness, no EKG or echo evidence of ischemia. Her EKGs have not shown any signs of ischemia. She has issues with fibromyalgia which may be contributing to periodic precordial chest pain. (5) Hypertension: Code(s): I10 - Essential (primary) hypertension Category: Medical Qualifiers: Hypertension type: essential hypertension Qualified Code(s): I10 - Essential (primary) hypertension Plan: Blood pressure goal less than 130/80. Well controlled at this time. Labs 06/24/2024 showed potassium 3.9, creatinine 0.64. Continue metoprolol, amlodipine, lisinopril, hydrochlorothiazide. (6) Hypothyroidism: Code(s): E03.9 - Hypothyroidism, unspecified Category: Medical Qualifiers: Hypothyroidism type: postoperative Qualified Code(s): E89.0 - Postprocedural hypothyroidism Plan: Patient tells me she has a history of thyroidectomy. TSH has been elevated as she had been without her medication. She is now back on levothyroxine. Plan I discussed with the patient the findings of the cardiac event monitor, which showed sinus tachycardia but no arrhythmias. We reviewed the importance of continuing metoprolol and avoiding stimulants to manage symptoms. I advised follow-up with the quality control specialist for further evaluation of vision issues, including an MRI and exercise test. We also discussed the need to monitor thyroid levels and manage dysfunction to prevent exacerbation of cardiac symptoms. A follow-up appointment was scheduled for six months, with instructions to return sooner if new symptoms develop. Patient Instructions: - Continue taking metoprolol 100 mg twice daily. - Avoid caffeine and ensure adequate sleep. - Follow up with the quality control specialist for vision issues. - Monitor thyroid levels and manage dysfunction. - Return for follow-up in six months or sooner if new symptoms arise. Patient was informed and verbally consented to the use of an ambient scribe for clinic note documentation during this visit. Visit time spent on chart review, interview, assessment, orders, documentation. Coding Level of Care Code Est Pt Level 4 (71015) Complex EM visit Add On G2211 Diagnoses Alteration in vision H54.7 History of TIA (transient ischemic attack) Z86.73 Palpitations R00.2 Precordial chest pain R07.2 Essential hypertension I10 Hypertension type: essential hypertension Postoperative hypothyroidism E89.0 Hypothyroidism type: postoperative Time Spent (min) 32
[2024-08-15 09:02] VITALS: BP 120/80; PULSE 94; BMI 37.0
--- OUTSIDE RECORDS SUMMARY | 2024-08-15 09:03 | XMS_ITS | Clinical Summary ---
Author Organization [facility] Facility Address [address] [place] [id number] Care Team Providers Care Appliance Technician Name Role Phone Naomi Bains MD Primary [...] Influenza Vaccine (Season Ended) 2024 Insurance [facility] [id number] [facility] Medicaid [facility] Medicaid Care Teams Appliance Technician Relationship Specialty Start Date End Date Naomi Bains MD [address] [place] [phone] PCP - General 03/08/20
== END 2024-08-15 09:42 | disposition home or self-care (01) ==
LOC: HO.HCS 08:57
PROVIDERS: PCP Internal Medicine; Visit Provider Nurse Practitioner Family
DX: H54.7 Unspecified visual loss (principal); Z86.73 Personal history of transient ischemic attack (TIA), and cerebral infarction without residual deficits; R00.2 Palpitations; R07.2 Precordial pain; I10 Essential (primary) hypertension; E89.0 Postprocedural hypothyroidism
CPT/HCPCS: 99214; G2211

== ENCOUNTER → 2024-08-15 08:56 | Outpatient (BNVA) | payer OTHER, SELFPAY | PROVIDERS: PCP Internal Medicine; Visit Provider Nurse Practitioner Family | DX: R00.2 Palpitations (principal); R07.2 Precordial pain; I10 Essential (primary) hypertension; H54.3 Unqualified visual loss, both eyes; E89.0 Postprocedural hypothyroidism; Z86.73 Personal history of transient ischemic attack (TIA), and cerebral infarction without residual deficits | CPT/HCPCS: 99212 ==

== ENCOUNTER 2024-08-20 08:10 | Outpatient (REF) | payer OTHER, SELFPAY ==
--- NOTE | 2024-08-20 08:14 | EMG_ITS ---
Chief complaint: Bilateral hand numbness EMG done by pr 11/2023 normal bilateral upper extremity. Reason for referral: Evaluate for Carpal Tunnel Syndrome Referred by: Dale RAUSCH Procedure done: Bilateral upper extremities NCS/EMG Precautions and/or limitations: None The limb temperature was monitored continuously and remained between 32-36 degrees C during the performance of the NCS. Nerve Conduction Studies Anti Sensory Summary Table ?Stim Site NR Onset (ms) Norm Onset (ms) Peak (ms) Norm Peak (ms) O-P Amp (?V) Norm O-P Amp Site1 Site2 Delta-0 (ms) Dist (cm) Watson (m/s) Norm Watson (m/s) Left Median Anti Sensory (2nd Digit) Wrist ? 2.9 3.5 <3.6 22.4 >10 Wrist 2nd Digit 2.9 14.0 48 Right Median Anti Sensory (2nd Digit) Wrist ? 3.0 3.7 <3.6 24.5 >10 Wrist 2nd Digit 3.0 14.0 47 Left Ulnar Anti Sensory (5th Digit) Wrist ? 1.5 2.8 <3.7 17.5 >15.0 Wrist 5th Digit 1.5 14.0 93 Right Ulnar Anti Sensory (5th Digit) Wrist ? 2.4 3.1 <3.7 19.3 >15.0 Wrist 5th Digit 2.4 14.0 58 Motor Summary Table ?Stim Site NR Onset (ms) Norm Onset (ms) O-P Amp (mV) Norm O-P Amp iAmp (mV) Amp (1st) (%) Site1 Site2 Delta-0 (ms) Dist (cm) Watson (m/s) Norm Watson (m/s) Left Median Motor (Abd Poll Brev) Wrist ? 3.4 <3.9 10.2 >4.5 12.2 100.0 Elbow Wrist 3.7 21.0 57 >45 Elbow ? 7.1 8.3 10.0 81.4 Right Median Motor (Abd Poll Brev) Wrist ? 3.6 <3.9 14.2 >4.5 17.2 100.0 Elbow Wrist 3.9 20.0 51 >45 Elbow ? 7.5 13.6 16.5 95.8 Left Ulnar Motor (Abd Dig Minimi) Wrist ? 3.0 <3.0 5.7 >5 6.9 100.0 B Elbow Wrist 3.1 16.0 52 >45 B Elbow ? 6.1 7.0 8.6 122.8 A Elbow B Elbow 1.5 10.0 67 >45 A Elbow ? 7.6 6.5 8.4 114.0 Right Ulnar Motor (Abd Dig Minimi) Wrist ? 2.9 <3.0 6.8 >5 8.6 100.0 B Elbow Wrist 3.4 17.0 50 >45 B Elbow ? 6.3 6.6 8.4 97.1 A Elbow B Elbow 1.4 10.0 71 >45 A Elbow ? 7.7 6.1 7.9 89.7 Comparison Summary Table ?Stim Site NR Peak (ms) Norm Peak (ms) P-T Amp (?V) Site1 Site2 Delta-P (ms) Norm Delta (ms) Left Median/Radial Dig I Comparison (Digit 1 - 10cm) Median ? 2.7 <2.9 444.0 Median Radial 0.0 Radial ? 2.7 <2.8 16.6 Right Median/Radial Dig I Comparison (Digit 1 - 10cm) Median ? 3.0 <2.9 1434.1 Median Radial 0.8 Radial ? 2.2 <2.8 11.1 EMG ?Side Muscle Nerve Root Ins Act Fibs Psw Amp Dur Poly Recrt Int Pat Comment Right 1stDorInt Ulnar C8-T1 Nml Nml Nml Nml Nml 0 Nml Complete Right FlexCarRad Median C6-7 Nml Nml Nml Nml Nml 0 Nml Complete Right Biceps Musculocut C5-6 Nml Nml Nml Nml Nml 0 Nml Complete Right Triceps Radial C6-7-8 Nml Nml Nml Nml Nml 0 Nml Complete Right Deltoid Axillary C5-6 Nml Nml Nml Nml Nml 0 Nml Complete Left 1stDorInt Ulnar C8-T1 Nml Nml Nml Nml Nml 0 Nml Complete Left FlexCarRad Median C6-7 Nml Nml Nml Nml Nml 0 Nml Complete Left Biceps Musculocut C5-6 Nml Nml Nml Nml Nml 0 Nml Complete Left Triceps Radial C6-7-8 Nml Nml Nml Nml Nml 0 Nml Complete Left Deltoid Axillary C5-6 Nml Nml Nml Nml Nml 0 Nml Complete FINDINGS: Right median sensory nerve showed prolonged peak latency. Significant interlatency difference between right median and radial sensory nerves. All other nerves tested were within normal. Concentric needle EMG was performed in selected muscles of the bilateral upper extremities. Study did not reveal signs of electric abnormalities as shown in the table above. IMPRESSION: 1. This is an abnormal study. 2. There is electrodiagnostic evidence for right mild median neuropathy at the wrist, consistent with carpal tunnel syndrome. 3. There is no electrodiagnostic evidence for ulnar neuropathy, brachial plexopathy, or cervical radiculopathy. 4. There is no electrodiagnostic evidence yet for left median neuropathy. Thank you for your kind referral. Jacqueline Hope MD, CHASITY Board Certified, [place] [employer] and Rehabilitation (ABPMR) Board Certified, [place] Board of Electrodiagnostic Medicine (ABEM) CODIN [phone] x 2 MTDD
--- OUTSIDE RECORDS SUMMARY | 2024-08-20 08:22 | XMS_ITS | Clinical Summary ---
Author Organization [facility] Facility Address [address] [place] [address] Care Team Providers Care Cover Seamer Name Role Phone Naomi Bains MD Primary Care Provider [phone] Family History Medical History Relation Comments Hypertension [...] Influenza Vaccine (Season Ended) 2024 [place] [id number] [facility] Medicaid [facility] Medicaid Care Teams Cover Seamer Relationship Specialty Start Date End Date Naomi Bains MD [address] [place] [phone] PCP - General 03/08/20
== END 2024-08-20 08:11 | disposition home or self-care (01) ==
LOC: HO.NEURO 08:10
PROVIDERS: PCP Physician Assistant
DX: N20.0 Calculus of kidney (principal); N20.2 Calculus of kidney with calculus of ureter
CPT/HCPCS: 95886; 95911

== ENCOUNTER → 2024-08-20 08:14 | Outpatient (BNV) | payer OTHER, SELFPAY | PROVIDERS: PCP Physician Assistant; Visit Provider Physical Medicine & Rehabilitation | DX: G56.01 Carpal tunnel syndrome, right upper limb (principal); R20.0 Anesthesia of skin; R20.2 Paresthesia of skin | CPT/HCPCS: 95886; 95911 ==

== ENCOUNTER 2024-08-22 11:25 | Outpatient (AMB) | payer OTHER, SELFPAY ==
--- NOTE | 2024-08-22 11:46 | A.OFFVIS_ITS ---
Intake Visit Reasons: Follow up Intake Note: Patient is Present for a 10w follow up 24 hr urine Urology Medication: Vitamin B6 Antibiotic Allergies: Levofloxacin Blood Thinners: None Train System Operator Required: No Accompanied by: Self / Same As Patient Allergies pineapple (PINEAPPLE) Allergy (Severe, Verified 08/22/24 11:46) ANAPHYLAXIS adhesive tape Allergy (Intermediate, Verified 08/22/24 11:46) Blister Iodinated Contrast Media (IV Dye, Iodine Containing) Allergy (Intermediate, Verified 08/22/24 11:46) SOB,RASH levofloxacin (From Levaquin) Allergy (Intermediate, Verified 08/22/24 11:46) swelling/rash oxycodone (From Percocet) Allergy (Intermediate, Verified 08/22/24 11:46) rash/SOB aspirin (ASA) Adverse Reaction (Mild, Verified 08/22/24 11:46) UPSET STOMACH HPI Comments Details: 08/22/24--Discussed 24 hour urine results collected:03/31/24 Total volume 1.49 L, Calcium 162 mg; Oxalate 41 mg, Citrate 1028 mg, Sodium 131. Instructed on i mportance of fluid intake. History of Present Illness - The patient is a 53-year-old female presenting with nephrolithiasis. - She has a history of nephrolithiasis with a recent 24-hour urine collection showing normal calcium but elevated oxalate levels, likely due to dietary intake. - She experiences right-sided flank pain and hematuria - A renal ultrasound in May indicated mild fullness of the renal pelvis without renal stones. - discussed plan for CT scan to check for ureteral stones. Results - Labs: 24-hour urine collection in March showed normal urine calcium levels and slightly elevated urine oxalate levels, urine volume less than 2 L. - Imaging: Ultrasound in May showed mild fullness of the right renal pelvis. Discussion Notes I discussed with the patient the results of her 24-hour urine collection, which showed normal calcium levels but elevated oxalate levels, likely due to dietary factors. I advised her to continue increasing her fluid intake and to be mindful of her diet. We also reviewed her ultrasound results, which showed mild fullness of the renal pelvis but no stones. Given her symptoms of right-sided flank pain and hematuria, I recommended a CT scan to check for ureteral stones. We will follow up with a telehealth appointment to review the CT scan and urine results. 06/13/24-- s/p ESWL--04/30/24 for approximately 9x9mm left lower pole stone renal US 06/04/24-- no renal calculi Discussion Notes We discussed the post-procedural state, confirming that the ultrasound results, no renal stones visualized. I explained she might still experience symptoms such as mild hematuria. We plan for a 24-hour urine collection to determine any modifications needed in her diet to prevent future stones. During her follow-up, it is important to bring in any stones she might pass for further analysis. We also discussed the possibility that some stones might still be in the bladder, continuing her symptoms. I will see her again in about 10 weeks for re- evaluation and to plan further management based on additional data from the urine collection and stone analysis. We reviewed the urine collection process, including [employer] pickup services and written documentation requirements at length to ensure compliance. 03/03/24--Gloria is being followed for kidney stones. She had left ESWL on 04/04/2023. LV 05/31/23 --she was referred to Nephrology Renal US 10/22/23-- RIGHT KIDNEY: No focal parenchymal lesions or hydronephrosis. 1.0 cm lower pole nonobstructive calculus. LEFT KIDNEY: mild lower pole caliectasis versus a parapelvic cyst which appears similar to prior. 7 mm nonobstructing calculus in the mid kidney. 05/31/2023--Gloria is being followed for kidney stones. She had left ESWL on 04/04/2023. She presents for telehealth visit. Video attempted. The patient states she still gets intermittent pain in the left kidney area. She also states her urine appears dark and she thinks it may have blood. The patient is concerned as to her continuing to make kidney stones. She states she is being evaluated for a pancreatic problem. I have discussed recent renal ultrasound and CT scan results. Renal ultrasound 05/14/2023--3 mm left kidney stone, 5mm right kidney stone. CT scan 05/10/2023 bilateral punctate stones largest 4 mm right kidney. Plan discussed will start vitamin B6 100 mg daily, refer to nephrology for workup due to kidney stones. In regards to her complains regarding her urine I will have the nurses reach out to her to have her leave a urine specimen at the lab so that I can evaluate this. We will monitor kidneys renal ultrasound in 6 months. 03/07/2023--Gloria is a 52-year-old female who is here for evaluation for kidney stones. The patient states that she has had history of kidney stones and has had prior kidney stone treatments including shockwave lithotripsy. Past Medical history includes asthma, she is followed by Pulmonary, history of thyroid cancer status post thyroid removal, bowel condition. The patient complains of left kidney pain, denies blood in the urine. I have reviewed chart, imagin12/21/22-CTAP--left kidney stones and right punctate kidney stone 02/12/23- Renal US --Left kidney stones 4-5 mm I have discussed diet modification to increase fluids, low sodium and low oxalate diet, diet sheet provided. Discussed Left ESWL--risks to include but not limited to, blood in the urine, bruising to the skin, kidney hematoma, possible need for another procedure if a stone fragment obstructs the ureter while passing, possible need to repeat procedure if stone is not completely fragmented. UA- negative. Plan:Left ESWL. Needs pulmonary clearance prior 05/31/2023--Plan discussed will start vitamin B6 100 mg daily, refer to nephrology for workup due to kidney stones. In regards to her complains regarding her urine I will have the nurses reach out to her to have her leave a urine specimen at the lab so that I can evaluate this. We will monitor kidneys renal ultrasound in 6 months. [facility] Medical History Well woman exam Dysphagia Abnormal finding on EKG Hx of flexible sigmoidoscopy Internal derangement of right shoulder Lump of left breast Lump of right breast Lump of axillary tail of right breast Chronic constipation Rotator cuff impingement syndrome of left shoulder Right forearm pain Colitis Hypertensive urgency Rotator cuff impingement syndrome Lateral epicondylitis of both elbows Fall IBS (irritable bowel syndrome) Abdominal bloating Tendinopathy of left rotator cuff History of TIA (transient ischemic attack) Hypercholesterolemia Vitamin D deficiency Multinodular thyroid Pancreatic cyst Thyroid nodule Diarrhea Rectal bleeding Esophageal spasm GERD (gastroesophageal reflux disease) Hypertension Asthma Kidney stones History of migraine headaches Fibromyalgia Allergic rhinitis Sciatic nerve pain Ovarian cyst Hypothyroidism Surgical History History of arthroscopic surgery of shoulder Hx of eye surgery History of breast lump/mass excision Hx of hemorrhoidectomy Hx of tubal ligation History of esophagogastroduodenoscopy (EGD) History of colonoscopy (~11/16/19) H/O: hysterectomy History of thyroidectomy (~11/2018) History of kidney surgery Hx of bilateral breast reduction surgery Hx of appendectomy History of cholecystectomy (~2003) H/O lithotripsy Family History Father Family history of high blood pressure History of high cholesterol Mother History of diabetes mellitus Family history of high blood pressure Family history of asthma History of fibromyalgia Liver disease Maternal Grandfather Colon cancer Family/Other Breast cancer Maternal Aunt Breast cancer Family/Other Breast cancer Social History Household Members: Spouse Household Members Other:: daughter Housing: Apartment Are you a primary pharmacist critical care to a significant other at home: No Do you presently have visiting nurse or other home services: No Alcohol intake: never Patient Tobacco Use Status: Former Tobacco user Tobacco use type: Cigarette Years Smoked: 15 e-Cigarette/Vaping Use: Never Used Second Hand Smoke Exposure: Yes Substance Use Type: Marijuana service: No Current occupational status: disabled Current occupation: right handed Sexual orientation: Straight/Heterosexual Gender identity: Female Cognitive needs: No Hearing needs: No Vision needs: Yes Female Reproductive History Menstrual Age of Menarche: 10 Review of Systems Const All systems reviewed & are unremarkable except as noted in HPI and below Reports no additional complaints Eyes Reports no additional complaints ENT Reports no additional complaints Card Reports no additional complaints Resp Reports no additional complaints GI Reports no additional complaints Reports as per HPI Musc Reports no additional complaints Skin/Breast Reports system reviewed and no additional complaints, except as documented Neuro Reports no additional complaints Psych Reports no additional complaints Endo Reports no additional complaints Chuy/Lymph Reports no additional complaints Aller/Immun Reports no additional complaints Results AMB Urinalysis, Automated UA Leukoctes 0 Frederick/uL Last Edit by EMY Neri on 08/22/24 16:26 UA Nitrite Negative Last Edit by EMY Neri on 08/22/24 16:26 UA Urobilinogen 0.2 mg/dL Last Edit by EMY Neri on 08/22/24 16:2 6 UA Protein 15 mg/dL Last Edit by Darlene Mauricio [facility] on 08/22/24 16:26 UA pH 6.0 Last Edit by Darlene Mauricio [facility] on 08/22/24 16:26 UA Blood 0 Jose Maria/uL Last Edit by Darlene Mauricio [facility] on 08/22/24 16:26 UA Specific Henry 1.015 Last Edit by Darlene Mauricio [facility] on 08/22/24 16: 26 UA Ketone Negative Last Edit by Darlene Mauricio [facility] on 08/22/24 16:26 UA Bilirubin 0 mg/dL Last Edit by Darlene Mauricio [facility] on 08/22/24 16:26 UA Glucose 0 mg/dL Last Edit by Darlene Mauricio [facility] on 08/22/24 16:26 Results Reviewed Results Reviewed: Laboratory Last Values Urine pH (Auto) 6.0 08/22/24 13:58 Specific Henry (Auto) 1.015 08/22/24 13:58 Urine Protein (Auto) 15 mg/dL 08/22/24 13:58 Glucose (UA)(Auto) 0 mg/dL 08/22/24 13:58 Urine Ketones (Auto) Negative 08/22/24 13:58 Urine Blood (Auto) 0 Jose Maria/uL 08/22/24 13:58 Urine Nitrite (Auto) Negative 08/22/24 13:58 Urine Bilirubin (Auto) 0 mg/dL 08/22/24 13:58 Urine Urobilinogen (Auto) 0.2 mg/dL 08/22/24 13:58 Leukocyte Esterase (Auto) 0 Frederick/uL 08/22/24 13:58 Date of Service: 06/04/24 EXAMINATION: US KIDNEY BILATERAL HISTORY: N20.0 - Calculus of kidney TECHNIQUE: Real-time grayscale ultrasound imaging of the kidneys was performed and images were reviewed. COMPARISON: Comparison is made with the prior examination dated 10/22/2023. FINDINGS: Right kidney: The right kidney measures 12.9 x 6.3 x 5.4 cm. Renal parenchymal echotexture and thickness are normal. There are no masses. There is fullness of the renal pelvis without hydronephrosis. No calculi are identified. Left Kidney: The left kidney measures 13.4 x 6.6 x 5.6 cm. Renal parenchymal echotexture and thickness are normal. There are no masses. Again seen is mild hydronephrosis. No calculi are identified. Imaging of the urinary bladder demonstrates bilateral ureteral jets. IMPRESSION: Mild fullness of the right renal pelvis. Mild left hydronephrosis. No calculi are identified. Date of Service: 10/22/23 US BILATERAL KIDNEYS CLINICAL INFORMATION: Calculus of kidney. COMPARISON: Renal ultrasound 05/14/2023 TECHNIQUE: Real-time imaging of the kidneys. FINDINGS: RIGHT KIDNEY: 12.9 x 5.8 x 7.1 cm (SAG x AP x TRV). The kidney is normal in size, contour, and echogenicity. Renal cortical thickness is normal. No focal parenchymal lesions or hydronephrosis. 1.0 cm lower pole nonobstructive calculus. LEFT KIDNEY: 12.2 x 6.1 x 5.0 cm (SAG x AP x TRV). The kidney is normal in size, contour, and echogenicity. Renal cortical thickness is normal. There is mild lower pole caliectasis versus a parapelvic cyst which appears similar to prior. 7 mm nonobstructing calculus in the mid kidney. IMPRESSION: Nonobstructing bilateral renal calculi. Mild left lower pole caliectasis versus a parapelvic cyst appears similar to prior. Date of Service: 05/14/23 EXAMINATION: US RETROPERITONEAL LIMITED (RENAL ONLY) CLINICAL INFORMATION: Calculus of kidney. COMPARISON: CT abdomen and pelvis 05/10/2023. X-ray KUB 04/04/2023. Renal ultrasound 02/12/2023 and 08/08/2020. MRI abdomen 02/14/2018. TECHNIQUE: Real-time imaging of the kidneys. FINDINGS: RIGHT KIDNEY: 12.6 x 4.8 x 5.7 cm (SAG x AP x TRV). The kidney is normal in size, contour, and echogenicity. Renal cortical thickness is normal. No focal parenchymal lesions. Nonobstructing 5 mm stone. LEFT KIDNEY: 11.7 x 5.7 x 4.7 cm (SAG x AP x TRV). The kidney is normal in size, contour, and echogenicity. Renal cortical thickness is normal. No focal parenchymal lesions. Mild hydronephrosis. No proximal obstructing stone. Nonobstructing 3 mm stone is noted. IMPRESSION: * Mild left hydronephrosis. No proximal obstructing stone. * Bilateral nonobstructing nephrolithiasis. Date of Service: 05/10/23 EXAMINATION: CT ABDOMEN AND PELVIS WITHOUT CONTRAST CLINICAL INFORMATION: Abdominal pain and distention. COMPARISON: None available. TECHNIQUE: Multidetector volumetric imaging was performed from the superior aspect of the liver through the pubic symphysis. Sagittal and coronal reformatted images were obtained on the technologist's workstation. This CT examination was performed using dose optimization techniques as appropriate, variously including the following: *Automated exposure control *Adjustment of mA and/or kV according to patient size (this includes techniques or standardized protocols for targeted exams where dose is matched to indication/reason for exam; i.e. extremities or head) *Use of iterative reconstruction technique DLP: 862 mGy-cm FINDINGS: LUNG BASES: The visualized lung bases are unremarkable. LIVER, GALLBLADDER, AND BILIARY TREE: The liver is normal in size, shape, and attenuation. No focal hepatic lesion or biliary ductal dilatation is present. There has been a prior cholecystectomy. PANCREAS: Unremarkable. SPLEEN: Unremarkable. ADRENAL GLANDS: Unremarkable. KIDNEYS AND URETERS: The kidneys are normal in size, shape, and attenuation. There are scattered bilateral renal calculi measuring up to 5 mm lower pole right kidney. There is no hydronephrosis. BLADDER: Unremarkable. GASTROINTESTINAL TRACT: There is a small hiatal hernia. The large and small bowel are within normal limits. The appendix is not seen. ABDOMINAL WALL: No significant hernia is appreciated. LYMPH NODES: Normal. VASCULAR: Unremarkable. PELVIC VISCERA: Unremarkable. OSSEOUS STRUCTURES: There is diffuse thoracolumbar disc degenerative change with prominent posterior osteophytes of the lower thoracic spine with spinal canal narrowing at multiple levels.. IMPRESSION: 1. No acute intra-abdominal abnormality. 2. Bilateral nonobstructing renal calculi. 3. Diffuse thoracolumbar disc degenerative change with prominent posterior osteophytes of the lower thoracic spine with spinal canal narrowing at multiple levels. Assessment & Plan Assessment & Plan (1) Hydronephrosis, right: Code(s): N13.30 - Unspecified hydronephrosis Category: Medical (2) Kidney stones: Code(s): N20.0 - Calculus of kidney Category: Medical Plan Plan - Increase fluid intake to achieve a daily urine output of 2 to 2.5 liters. - Adjust diet to lower oxalate intake. - Conduct a CT scan to investigate the presence of ureteral stones due to symptoms of flank pain and hematuria. - Prescribe tamsulosin 0.4 mg to facilitate stone passage, advising nighttime administration to reduce dizziness risk. - Plan a telehealth follow-up to discuss CT. Orders: Orders CT kidney stone 08/22/24 N13.30 - Unspecified hydronephrosis AMB Post Void Residual by ultrasound 08/22/24 N13.30 - Unspecified hydronephrosis AMB Urinalysis Automated 08/22/24 Z13.9 - Encounter for screening, unspecified Medications: New tamsulosin (Flomax) 0.4 mg PO BEDTIME 20 caps 0RF to help pass stones Patient Instructions: The patient had an opportunity to ask questions regarding treatment plan. The patient expressed understanding and agreement with the above treatment plan. The patient is aware they should contact our office by phone for worsening of their current condition or the appearance of new symptoms. Compliance is encouraged with any medications and followup testing that is ordered. It is a privilege to be allowed the opportunity to participate in the urologic care of your patient. If you have any questions or concerns regarding treatment for the above conditions please do not hesitate to contact me. The office telephone contact is [phone]. This note is constructed in part using voice recognition software. While every effort has been made to ensure accuracy machine room engineer errors may have been included. Yours sincerely, Blanca Lujan MD Scribe Plan - Not visible on output: Patient was informed and verbally consented to the use of an ambient scribe for clinic note documentation during this visit. Coding Level of Care Code Est Pt Level 4 (48149) Diagnoses Hydronephrosis, right N13.30 Kidney stones N20.0
--- OUTSIDE RECORDS SUMMARY | 2024-08-22 12:39 | XMS_ITS | Clinical Summary ---
Author Organization [facility] Facility Address [address] [place] [id number] Care Team Providers Care Razor Grinder Name Role Phone Naomi Bains MD Primary [...] Influenza Vaccine (Season Ended) 2024 [place] [id number] [facility] Medicaid [facility] Medicaid Care Teams Razor Grinder Relationship Specialty Start Date End Date Naomi Bains MD [address] [place] [id number] PCP - General 03/08/20
== END 2024-08-22 12:36 | disposition home or self-care (01) ==
LOC: HO.HUSH 11:25
PROVIDERS: PCP Internal Medicine; Visit Provider Urology
DX: Z13.9 Encounter for screening, unspecified (principal)
CPT/HCPCS: 99214

== ENCOUNTER → 2024-08-22 11:25 | Outpatient (BNVA) | payer OTHER, SELFPAY | PROVIDERS: PCP Internal Medicine; Visit Provider Urology | DX: N13.30 Unspecified hydronephrosis (principal); N20.0 Calculus of kidney | CPT/HCPCS: 81003; 99212 ==

== ENCOUNTER 2024-08-25 08:43 | Outpatient (AMB) | payer OTHER, SELFPAY ==
--- OUTSIDE RECORDS SUMMARY | 2024-08-25 08:53 | XMS_ITS | Clinical Summary ---
Author Organization [facility] Facility Address [address] [place] [id number] Care Team Providers Care Oyster Culturist Name Role Phone Naomi Bains MD Primary [...] Ended) 2024 Insurance [facility] [id number] [facility] Medicaid [facility] Medicaid Care Teams Oyster Culturist Relationship Specialty Start Date End Date Naomi Bains MD [address] [place] [id number] PCP - General 03/08/20
--- NOTE | 2024-08-25 08:54 | A.OFFPC_ITS ---
Vital Signs 08/25/24 08:56 Height 5 ft 5 in Weight 226 lb BMI 37.6 BP 132/64 Blood Pressure Location Lt brachial Pulse 94 Pulse Source Pulse Oximeter Temp 97.3 F Temp Source Temporal Artery Scan Pulse Oximetry (%) 96 Oxygen Delivery Method Room Air Intake Visit Reasons: Follow Up Varnisher Required: No Accompanied by: Self / Same As Patient Allergies pineapple (PINEAPPLE) Allergy (Severe, Verified 08/25/24 09:14) ANAPHYLAXIS adhesive tape Allergy (Intermediate, Verified 08/25/24 09:14) Blister Iodinated Contrast Media (IV Dye, Iodine Containing) Allergy (Intermediate, Verified 08/25/24 09:14) SOB,RASH levofloxacin (From Levaquin) Allergy (Intermediate, Verified 08/25/24 09:14) swelling/rash oxycodone (From Percocet) Allergy (Intermediate, Verified 08/25/24 09:14) rash/SOB aspirin (ASA) Adverse Reaction (Mild, Verified 08/25/24 09:14) UPSET STOMACH Medication List - Last Reconciled 08/25/24 by Donis Barron PA-C amlodipine 10 mg PO DAILY atorvastatin (Lipitor) 10 mg PO DAILY bisacodyl (Dulcolax (bisacodyl)) 10 mg (2 x 5 mg) PO ONCE 5 days budesonide-formoterol 160-4.5 mcg/actuation (Symbicort) 2 puffs inhalation BID cholecalciferol (vitamin D3) (Vitamin D3) 50 mcg PO DAILY diclofenac sodium 50 mg PO DAILY 30 days diphenhydramine HCl (Benadryl Allergy) 25 mg orally one tablet this evening and one tablet tomorrow am; docusate sodium 100 mg PO BID famotidine 20 mg PO BEDTIME PRN hydrochlorothiazide 25 mg PO DAILY ipratropium bromide 2 sprays intranasal TID 30 days ipratropium-albuterol 0.5 mg-3 mg(2.5 mg base)/3 mL 3 mL inhalation Q4-6H PRN levothyroxine (Tirosint) 200 mcg PO DAILY lisinopril 40 mg PO DAILY 90 days lorazepam 1 mg PO ONCE PRN metoprolol tartrate 100 mg PO BID 90 days mupirocin 2% 1 appl topical BID 30 days omalizumab (Xolair) 300 mg (2 mL) subcut Q2W omeprazole 40 mg (2 x 20 mg) PO DAILY ondansetron 4 mg PO Q8H PRN 30 days polyethylene glycol 3350 (Miralax) 17 grams PO DAILY 1 day pyridoxine (vitamin B6) 100 mg PO DAILY tamsulosin (Flomax) 0.4 mg PO BEDTIME tramadol 50 mg PO Q8H PRN Ventolin HFA 90 mcg/actuation (albuterol sulfate) 2 puffs inhalation Q4-6H PRN 30 days NS vonoprazan (Voquezna) 20 mg PO DAILY 8 weeks Tobacco use date assessed: 08/25/24 Dental Screening Dental Screen Date: 04/23/24 HPI Follow Up HPI Details The patient is a 53-year-old female presenting for a follow-up visit week follow-up visit. Patient has a past medical history significant for hypothyroidism, major depressive disorder, obesity, GERD, irritable bowel syndrome, hypertension Left hand pain: Patient reports Left hand pain and dysfunction are paramount, where she recalls a mild arthritis diagnosis in the left hand and tendinitis for both hands from August last year. Persistent swelling and restriction in functionality lead to difficulty grasping, with episodes of dropping objects. Attempts at physical therapy have been ceased due to previous inadequate outcomes tied to shoulder pain and ineffective brace fit requiring patient-mediated resolution. Chronic shoulder pain stems from a lack of completed operative intervention along with a year since effective cortisone management, equating to exacerbated concerns for untreated discomfort. Hypertension: Patient's blood pressure acceptable today in office. She continues on multiple different antihypertensives including amlodipine, lisinopril, hydrochlorothiazide and metoprolol. She has a history of fibromyalgia, which has significantly worsened over the past three years, coinciding with the of her niece and mother, leading to severe depression and anxiety. The fibromyalgia results in chronic pain throughout her body, including headaches and muscle pain, and she reports multiple unsuccessful medication trials, including gabapentin and other unspecified treatments, without sustained relief. The patient's depression, compounded by considerable personal loss, exacerbates her pain and disrupts her sleep. Hypothyroidism: Now followed by endocrinology in [place]. TSH remains el evated. She was changed to capsules which were much more effective. Her levothyroxine was 175 mcg the TSH remains to be elevated, unclear if this is a an absorption issue due to her GI dysfunctions. She will start taking her PPI therapy at night to see if we can get better absorption of her levothyroxine. Her levothyroxine capsules were increased to 200 mcg though patient reports pharmacy has not had the 200 mcg. [facility] Medical History Well woman exam Dysphagia Abnormal finding on EKG Hx of flexible sigmoidoscopy Internal derangement of right shoulder Lump of left breast Lump of right breast Lump of axillary tail of right breast Chronic constipation Rotator cuff impingement syndrome of left shoulder Right forearm pain Colitis Hypertensive urgency Rotator cuff impingement syndrome Lateral epicondylitis of both elbows Fall IBS (irritable bowel syndrome) Abdominal bloating Tendinopathy of left rotator cuff History of TIA (transient ischemic attack) Hypercholesterolemia Vitamin D deficiency Multinodular thyroid Pancreatic cyst Thyroid nodule Diarrhea Rectal bleeding Esophageal spasm GERD (gastroesophageal reflux disease) Hypertension Asthma Kidney stones History of migraine headaches Fibromyalgia Allergic rhinitis Sciatic nerve pain Ovarian cyst Hypothyroidism Surgical History History of arthroscopic surgery of shoulder Hx of eye surgery History of breast lump/mass excision Hx of hemorrhoidectomy Hx of tubal ligation History of esophagogastroduodenoscopy (EGD) History of colonoscopy (~11/16/19) H/O: hysterectomy History of thyroidectomy (~11/2018) History of kidney surgery Hx of bilateral breast reduction surgery Hx of appendectomy History of cholecystectomy (~2003) H/O lithotripsy Family History Father Family history of high blood pressure History of high cholesterol Mother History of diabetes mellitus Family history of high blood pressure Family history of asthma History of fibromyalgia Liver disease Maternal Grandfather Colon cancer Family/Other Breast cancer Maternal Aunt Breast cancer Family/Other Breast cancer Social History Household Members: Spouse Household Members Other:: daughter Housing: Apartment Are you a primary chronic care nurse to a significant other at home: No Do you presently have visiting nurse or other home services: No Alcohol intake: never Patient Tobacco Use Status: Former Tobacco user Tobacco use type: Cigarette Years Smoked: 15 e-Cigarette/Vaping Use: Never Used Second Hand Smoke Exposure: Yes Substance Use Type: Marijuana service: No Current occupational status: disabled Current occupation: right handed Sexual orientation: Straight/Heterosexual Gender identity: Female Cognitive needs: No Hearing needs: No Vision needs: Yes Female Reproductive History Menstrual Age of Menarche: 10 Questionnaire Thrive Questionnaire Date Thrive assessed: 06/23/24 I am a: Patient What is your living situation today?: I choose not to answer this question Within the past 12 months, did the food you bought not last and you didn't have the money to get more?: I choose not to answer this question Within the past 12 months, did you worry whether your food would run out before you got money to buy more?: I choose not to answer this question Do you have trouble paying for medicines?: I choose not to answer this question Do you have trouble getting transportation to medical appointments?: I choose not to answer this question Do you have trouble paying your heating and electricity bill?: I choose not to answer this question Do you have trouble taking care of your child, family member or friend?: I choose not to answer this question Do you have trouble with day-to-day activities such as bathing, preparing meals, shopping, managing finances, etc.?: I choose not to answer this question Are you currently unemployed and looking for a job?: I choose not to answer this question Are you interested in more education?: I choose not to answer this question Please select the resources that you would like help with: None Currently or been in a relationship where the following occur: I choose not to answer THRIVE Score: 0 INDRA-7 AMB Questionnaire INDRA-7 Date INDRA - 7 assessed: 04/23/24 Source: Developed by Drs. Rainer Caldwell, Ashanti Malone, Hank Dewitt and colleagues, with an educational mayco from [employer]. Review of Systems Const Denies headache(s) Eyes Denies loss of vision ENT Denies vertigo, Denies dizziness, Denies headache(s) and Denies sore throat Card Denies chest pain, Denies leg edema and Denies lightheadedness Resp Denies cough, Denies hemoptysis and Denies wheezing GI Denies abdominal pain, Denies melena, Denies constipation, Denies diarrhea and Denies vomiting Denies urinary frequency, Denies dysuria and Denies urinary urgency Musc Reports back pain, Denies arthralgias, Reports joint swelling, Denies numbness, Reports radiating pain into limb and Denies tingling Neuro Denies Abnormal speech present, Denies behavioral changes, Denies vertigo, Denies dizziness, Denies headache(s), Denies loss of vision, Denies memory loss, Denies numbness and Denies tingling Psych Denies anxiety, Denies behavioral changes, Denies depression, Denies memory loss and Denies panic attacks Chuy/Lymph Denies easy bleeding and Denies easy bruising Aller/Immun Denies wheezing Physical exam (Primary Care) Vital Signs: Last Vital Signs Temp 97.3 F 08/25/24 08:56 Pulse 94 08/25/24 08:56 BP 132/64 08/25/24 08:56 Pulse Ox 96 08/25/24 08:56 Oxygen Delivery Method Room Air 08/25/24 08:56 BMI result Body Mass Index 37.6 Tobacco/Smoking Status: Tobacco use Status Tobacco use date assessed 08/25/24 08/25/24 09:00 Patient Tobacco Use Status Former Tobacco user 08/25/24 09:00 Tobacco use type Cigarette 08/25/24 09:00 e-Cigarette/Vaping Use Never Used 08/25/24 09:00 Thrive Assessment: Date of Thrive Assessment Date Thrive assessed 06/23/24 08/25/24 09:00 Currently or been in a relationship where the following occur: I choose not to answer Const General: healthy appearing, no acute distress, alert and awake Nutritional Appearance: well nourished Orientation/consciousness: oriented to person, oriented to place and oriented to time HENWY Ears: TM's normal bilaterally General nose exam: Normal nasal mucous membranes and turbinates present Eyes Conjunctivae: conjunctivae normal Sclerae: sclerae normal Pupils: Equal, round and reactive pupils present Neck Neck: Yes no lymphadenopathy and Yes no JVD Thyroid: Thyroid normal Carotids: no bruits Resp Effort & Inspection: normal respiratory effort and not tachypneic Auscultation: no crackles, no rales, no rhonchi and no wheezes Cardio Rate: regular rate Rhythm: regular rhythm Heart sounds: no murmurs and normal S1 and S2 GI Palpation (GI): Soft to palpation, nontender, no hepatomegaly and no splenomegaly Auscultation: normal bowel sounds Skin General skin exam: no rashes or lesions noted and dry skin Neuro General: oriented to person, oriented to place and oriented to time Cranial nerves: Yes Equal, round and reactive pupils present Speech: No Abnormal speech present Gait exam (Neuro): Normal gait present Motor exam (neuro): no tremor noted Extrem Right upper extremity: full ROM Left upper extremity: full ROM Right lower extremity: full ROM; no edema Left lower extremity: full ROM; no edema Psych Mental Status: mental status grossly normal Speech and movement: Normal speech and movement present Affect: normal affect Attitude: cooperative Thought process: Normal thought process present Coding Level of Care Code Est Pt Level 4 (97197) Diagnoses Arthritis of carpometacarpal (CMC) joint of left thumb M18.12 Essential hypertension I10 Hypertension type: essential hypertension Postoperative hypothyroidism E89.0 Hypothyroidism type: postoperative Right carpal tunnel syndrome G56.01 Assessment & Plan Assessment & Plan (1) Arthritis of carpometacarpal (CMC) joint of left thumb: Code(s): M18.12 - Unilateral primary osteoarthritis of first carpometacarpal joint, left hand Category: Medical Plan: X-ray showing evidence of arthritis in his left hand, EMG without evidence of neuropathy in the left. Did have mild neuropathy in the right wrist consistent with carpal tunnel. She has upcoming appointment with Orthopedics to discuss treatment options. Did discuss the possible need of occupational therapy to help her hand strength and dexterity though she declines at this time (2) Hypertension: Code(s): I10 - Essential (primary) hypertension Category: Medical Qualifiers: Hypertension type: essential hypertension Qualified Code(s): I10 - Essential (primary) hypertension Plan: Patient's blood pressure acceptable today in office. At last visit we increased her hydrochlorothiazide to 25 mg.. Will continue metoprolol, amlodipine, lisinopril and hydrochlorothiazide with goal blood pressure to be below 140/90. (3) Hypothyroidism: Code(s): E03.9 - Hypothyroidism, unspecified Category: Medical Qualifiers: Hypothyroidism type: postoperative Qualified Code(s): E89.0 - Postprocedural hypothyroidism Plan: She has reestablish care with endocrinology. Her TSH remains even more elevated even on higher dose of levothyroxine 75 mcg. She was prescribed 200 mcg levothyroxine capsules though per patient was not available at the pharmacy. Advised to change her PPI therapy to nighttime dosing to see if we can get better absorption of her levothyroxine capsules. (4) Right carpal tunnel syndrome: Code(s): G56.01 - Carpal tunnel syndrome, right upper limb Category: Medical Plan: As above patient's most recent EMG showing mild carpal tunnel syndrome in the right side. Medications: Refilled levothyroxine (Tirosint) Brand name only, no substitution allowed DAW0 200 mcg PO DAILY 90 caps 2RF
[2024-08-25 08:56] VITALS: BP 132/64; PULSE 94; TEMP 36.3; O2SAT 96; BMI 37.6
== END 2024-08-25 09:36 | disposition home or self-care (01) ==
LOC: HO.HMCH 08:44
PROVIDERS: PCP Physician Assistant; Visit Provider Physician Assistant
DX: M18.12 Unilateral primary osteoarthritis of first carpometacarpal joint, left hand (principal); I10 Essential (primary) hypertension; E89.0 Postprocedural hypothyroidism; G56.01 Carpal tunnel syndrome, right upper limb

== ENCOUNTER → 2024-08-25 08:43 | Outpatient (BNVA) | payer OTHER, SELFPAY | PROVIDERS: PCP Physician Assistant; Visit Provider Physician Assistant | DX: K21.9 Gastro-esophageal reflux disease without esophagitis (principal); F32.A Depression, unspecified; E66.9 Obesity, unspecified; K58.9 Irritable bowel syndrome, unspecified; I10 Essential (primary) hypertension; M77.8 Other enthesopathies, not elsewhere classified; M79.7 Fibromyalgia; F41.9 Anxiety disorder, unspecified; M18.12 Unilateral primary osteoarthritis of first carpometacarpal joint, left hand; E89.0 Postprocedural hypothyroidism; G56.01 Carpal tunnel syndrome, right upper limb; Z68.37 Body mass index [BMI] 37.0-37.9, adult | CPT/HCPCS: 99212 ==

== ENCOUNTER 2024-09-09 09:44 | Outpatient (AMB) | payer OTHER, SELFPAY ==
[2024-09-09 09:50] VITALS: BMI 37.6
--- NOTE | 2024-09-09 09:50 | MHC.OFFVIS ---
Vital Signs 09/09/24 09:50 Height 5 ft 5 in Weight 226 lb BMI 37.6 Intake Visit Reasons: OV- Bilateral UE EMG review Intake Note: Gloria is a 53 year old right hand dominant female who presents today for a Bilateral Upper Extremity EMG Review. At her last visit she was referred to OT and was supposed to receive a comfort cool brace but we did not have her size at that time. Patient declined injections at her last visit. Patient reports her discomfort has gotten worse since her nerve conduction study. IMPRESSION: 1. This is an abnormal study. 2. There is electrodiagnostic evidence for right mild median neuropathy at the wrist, consistent with carpal tunnel syndrome. 3. There is no electrodiagnostic evidence for ulnar neuropathy, brachial plexopathy, or cervical radiculopathy. 4. There is no electrodiagnostic evidence yet for left median neuropathy. Allergies pineapple (PINEAPPLE) Allergy (Severe, Verified 09/09/24 09:54) ANAPHYLAXIS adhesive tape Allergy (Intermediate, Verified 09/09/24 09:54) Blister Iodinated Contrast Media (IV Dye, Iodine Containing) Allergy (Intermediate, Verified 09/09/24 09:54) SOB,RASH levofloxacin (From Levaquin) Allergy (Intermediate, Verified 09/09/24 09:54) swelling/rash oxycodone (From Percocet) Allergy (Intermediate, Verified 09/09/24 09:54) rash/SOB aspirin (ASA) Adverse Reaction (Mild, Verified 09/09/24 09:54) UPSET STOMACH HPI HPI OV- Bilateral UE EMG review: Details: Gloria is a 53 year old right hand dominant female who presents today for a Bilateral Upper Extremity EMG Review. At her last visit she was referred to OT and was supposed to receive a comfort cool brace but we did not have her size at that time. Patient declined injections at her last visit. Patient reports her discomfort has gotten worse since her nerve conduction study. IMPRESSION: 1. This is an abnormal study. 2. There is electrodiagnostic evidence for right mild median neuropathy at the wrist, consistent with carpal tunnel syndrome. 3. There is no electrodiagnostic evidence for ulnar neuropathy, brachial plexopathy, or cervical radiculopathy. 4. There is no electrodiagnostic evidence yet for left median neuropathy. [facility] Medical History Well woman exam Dysphagia Abnormal finding on EKG Hx of flexible sigmoidoscopy Internal derangement of right shoulder Lump of left breast Lump of right breast Lump of axillary tail of right breast Chronic constipation Rotator cuff impingement syndrome of left shoulder Right forearm pain Colitis Hypertensive urgency Rotator cuff impingement syndrome Lateral epicondylitis of both elbows Fall IBS (irritable bowel syndrome) Abdominal bloating Tendinopathy of left rotator cuff History of TIA (transient ischemic attack) Hypercholesterolemia Vitamin D deficiency Multinodular thyroid Pancreatic cyst Thyroid nodule Diarrhea Rectal bleeding Esophageal spasm GERD (gastroesophageal reflux disease) Hypertension Asthma Kidney stones History of migraine headaches Fibromyalgia Allergic rhinitis Sciatic nerve pain Ovarian cyst Hypothyroidism Surgical History History of arthroscopic surgery of shoulder Hx of eye surgery History of breast lump/mass excision Hx of hemorrhoidectomy Hx of tubal ligation History of esophagogastroduodenoscopy (EGD) History of colonoscopy (~11/16/19) H/O: hysterectomy History of thyroidectomy (~11/2018) History of kidney surgery Hx of bilateral breast reduction surgery Hx of appendectomy History of cholecystectomy (~2003) H/O lithotripsy Family History Father Family history of high blood pressure History of high cholesterol Mother History of diabetes mellitus Family history of high blood pressure Family history of asthma History of fibromyalgia Liver disease Maternal Grandfather Colon cancer Family/Other Breast cancer Maternal Aunt Breast cancer Family/Other Breast cancer Social History Household Members: Spouse Household Members Other:: daughter Housing: Apartment Are you a primary daycare assistant to a significant other at home: No Do you presently have visiting nurse or other home services: No Alcohol intake: never Patient Tobacco Use Status: Former Tobacco user Tobacco use type: Cigarette Years Smoked: 15 e-Cigarette/Vaping Use: Never Used Second Hand Smoke Exposure: Yes Substance Use Type: Marijuana service: No Current occupational status: disabled Current occupation: right handed Sexual orientation: Straight/Heterosexual Gender identity: Female Cognitive needs: No Hearing needs: No Vision needs: Yes Female Reproductive History Menstrual Age of Menarche: 10 Physical Exam Vital Signs: BMI result Body Mass Index 37.6 Assessment & Plan Assessment & Plan (1) Right carpal tunnel syndrome: Code(s): G56.01 - Carpal tunnel syndrome, right upper limb Category: Medical Plan History of Present Illness The patient is a 54-year-old female presenting with right-sided carpal tunnel syndrome. She reports persistent numbness, tingling, and pain in her right hand, which have been ongoing since the EMG and nerve conduction study confirmed the diagnosis. The symptoms have been severe enough to require support for daily activities, such as using a brace. The patient also reports pain and swelling in the right hand, which she associates with possible arthritis. Previous x-rays from 2023 indicated some arthritic changes in the joints of the hand. The pain is exacerbated by certain movements and has been persistent since the last evaluation. Additionally, there is a suspicion of tendinitis contributing to her symptoms, particularly affecting the thumb and extending to the elbow. The patient describes the pain as similar to arthritis but more pronounced with certain activities. Review of Systems - Neurological: Reports numbness and tingling in the right hand. Denies numbness in the left hand. - Musculoskeletal: Reports pain and swelling in the right hand. Denies pain in the left hand. Physical Exam - Musculoskeletal: Examination of the right hand showed tenderness and swelling. - Neurological: Positive findings for numbness and tingling in the right hand in the median nerve distribution Results - EMG and nerve conduction study: Confirmed right-sided carpal tunnel syndrome. - X-rays (2023): Indicated possible arthritic changes in the hand joints. Plan The plan for managing the patient's right-sided carpal tunnel syndrome includes considering surgical intervention, as it is the recommended treatment for progressive symptoms. The patient expressed interest in proceeding with surgery, and arrangements were made to schedule the procedure. Post-operative care instructions were provided, including maintaining a clean and dry dressing for the first five days and avoiding heavy lifting for four weeks. For the suspected arthritis and tendinitis, the patient was advised to consider occupational therapy to improve range of motion and manage symptoms. A steroid injection was discussed as a potential treatment option, but the patient declined due to previous experiences with injections. I educated the patient about the condition. I discussed both operative and nonoperative treatment options. The patient would like to proceed with surgery. The risks and benefits of operative treatment were discussed with the patient and the patient wishes to proceed with surgery. These risks include, but are not limited to, risk of damage to blood vessels, nerves, tendons, infection, recurrence, incomplete relief of preoperative symptoms, persistent pain, possible need for further surgery, and the risks associated with regional blocks and/or anesthesia. Plan is to take the patient to the operating room at some point in the next few weeks for the following procedures: 1. Right carpal tunnel release under local All of the preoperative paperwork including the consent was discussed today. All of the patient's questions were answered in the clinic today. The patient understands that they will be in contact with our surgical services manager to discuss scheduling their procedure. Patient denies diabetes, blood thinners, asthma, heart issues, lung issues, kidney issues, or current smoking. Discussion Notes I discussed with the patient the diagnosis of right-sided carpal tunnel syndrome confirmed by EMG and nerve conduction study. We reviewed the treatment options, including surgical intervention, which the patient agreed to proceed with. I explained the post-operative care, emphasizing the importance of keeping the dressing clean and dry and avoiding heavy lifting for four weeks. For the suspected arthritis and tendinitis, I suggested occupational therapy and discussed the option of a steroid injection, which the patient declined. Coding Level of Care Code Est Pt Level 4 (48099) Diagnoses Right carpal tunnel syndrome G56.01
--- OUTSIDE RECORDS SUMMARY | 2024-09-09 10:26 | XMS_ITS | Clinical Summary ---
Author Organization [facility] Facility Address [address] [place] [address], [place] [address] Care Team Providers Care Director Of Pulmonary Unit Name Role Phone Naomi Bains MD Primary [...] Cancer Screening: Sigmoidoscopy 2021 Influenza Vaccine (#1) 2024 [facility] [place] [id number] [facility] Medicaid [facility] Medicaid Care Teams Director Of Pulmonary Unit Relationship Specialty Start Date End Date Naomi Bains MD [address] [place] [id number] PCP - General 03/08/20
== END 2024-09-09 10:38 | disposition home or self-care (01) ==
LOC: HO.HOS 09:45
PROVIDERS: PCP Physician Assistant
DX: G56.01 Carpal tunnel syndrome, right upper limb (principal)
CPT/HCPCS: 99214

== ENCOUNTER → 2024-09-09 09:44 | Outpatient (BNVA) | payer OTHER, SELFPAY | PROVIDERS: PCP Physician Assistant | DX: G56.01 Carpal tunnel syndrome, right upper limb (principal); R20.0 Anesthesia of skin; R20.2 Paresthesia of skin; M79.641 Pain in right hand | CPT/HCPCS: 99212 ==

== ENCOUNTER 2024-09-12 08:02 | Outpatient (REF) | payer OTHER, SELFPAY ==
--- NOTE | ~2024-09-12 | CT_ITS ---
EXAMINATION: CT ABDOMEN PELVIS WITHOUT IV CONTRAST HISTORY: N13.30 - Unspecified hydronephrosis COMPARISON: Comparison is made with prior examinations dated 05/10/2023 and 12/21/2022. TECHNIQUE: CT scan of the abdomen and pelvis was performed without contrast using standard departmental protocol. Coronal and sagittal reformatted images were generated and reviewed. Oral contrast material was not administered per department protocol. This CT exam was performed with one or more of the following dose reduction techniques: automated exposure control, adjustment of the mA and/or kV according to patient size, use of iterative reconstruction technique. DLP: 712 mGy-cm FINDINGS: LOWER CHEST: The visualized lung bases are clear. There is no pleural effusion. CARDIOVASCULATURE: The heart is normal in size. There is no pericardial effusion. LIVER: The liver is normal in size and contour. The liver has an unremarkable unenhanced appearance. GALLBLADDER / BILE DUCTS: The gallbladder is surgically absent. There is no intra or extrahepatic biliary ductal dilatation. SPLEEN: The spleen is normal in size and has an unremarkable unenhanced appearance. PANCREAS: The pancreas has an unremarkable unenhanced appearance. ADRENAL GLANDS: Unremarkable. KIDNEYS/RETROPERITONEUM: There is a nonobstructing 5 mm calculus at the lower pole of the right kidney. There are probable punctate nonobstructing calculi in the interpolar region of the left kidney. There are extrarenal pelves bilaterally. Findings are similar in appearance to the prior studies. There is no hydronephrosis or hydroureter. No ureteral calculi are identified. LYMPH NODES: No retroperitoneal lymphadenopathy is identified in the abdomen or pelvis. VASCULATURE: The abdominal aorta is normal in caliber. MESENTERY/PERITONEUM: No free fluid. No masses. There is no free intraperitoneal gas. STOMACH: There is a small hiatal hernia. There is a large amount of debris in the stomach. SMALL BOWEL: The small bowel is normal in caliber. COLON: The colon is unremarkable. APPENDIX: The appendix is surgically absent. URINARY BLADDER/PELVIC ORGANS: The urinary bladder is unremarkable. The patient is status post hysterectomy. BONES / SOFT TISSUES: No suspicious bony or soft tissue abnormalities. CT/CT kidney stone IMPRESSION: Bilateral nephrolithiasis as described. Bilateral extrarenal pelves without evidence of hydronephrosis or ureteral obstruction. Electronically signed by: Rainer Munson MD 09/12/2024 09:50 AM EDT RP
--- OUTSIDE RECORDS SUMMARY | 2024-09-12 08:06 | XMS_ITS | Clinical Summary ---
Author Organization [facility] Address [address] [place] [id number] Phone Care Team Providers Care First Calender Worker Name Role Phone Unavailable Primary Care Provider Unavailabl e Social History Tobacco Use Types Packs/Day Years Used Date Smoking Tobacco: Never Assessed Education Answer Date Recorded Are you interested in more education? Not on melissa e 07/09/2022 Are you concerned about learning? Not on file 07/09/2022 No 07/09/2022 No 07/09/2022 Digital Access Answer Date Recorded No 07/23/2022 No 07/23/2022 No 07/23/2022 Reliable internet access at home? Not on file 07/23/2022 Device with a working camera? Not on file Comments Unknown Sex and Gender Information Value Date Recorded Sex Assigned at Not on file Legal Sex Female 6:24 PM EST Gender Identity Not on file Sexual Orientation Not on file Plan of Treatment Not on file Medical Devices Not on file Additional Source Comments The information contained in this document represents components of the legal health record. It is not the complete legal health record.[facility]
--- OUTSIDE RECORDS SUMMARY | 2024-09-12 08:06 | XMS_ITS | Clinical Summary ---
Author Organization [facility] Address [address] [place] [address], [place] [address] Care Team Providers Care Ticket Dispatcher Name Role Phone Naomi Bains MD Primary [...] 2021 Influenza Vaccine (#1) 2024 [place] [facility] [place] [id number] [facility] Medicaid [facility] Medicaid Care Teams Ticket Dispatcher Relationship Specialty Start Date End Date Naomi Bains MD [address] [place] [phone] PCP - General 03/08/20
[2024-09-12 09:36] LABS: Free T4 (Free Thyroxine) 0.44 ng/dL (0.71-1.85); Thyroid Stimulating Hormone 52.36 uIU/mL (0.32-4.0)
== END 2024-09-12 08:03 | disposition home or self-care (01) ==
LOC: HO.LAB 08:02
PROVIDERS: Absent Provider Internal Medicine Gastroenterology; PCP Physician Assistant; Visit Provider Student in an Organized Health Care Education/Training Program
DX: E89.0 Postprocedural hypothyroidism (principal); N13.30 Unspecified hydronephrosis; N20.0 Calculus of kidney; Z90.710 Acquired absence of both cervix and uterus; Z90.49 Acquired absence of other specified parts of digestive tract
CPT/HCPCS: 36415; 74176; 84439; 84443

== ENCOUNTER → 2024-09-12 08:53 | Outpatient (BNV) | payer OTHER, SELFPAY | PROVIDERS: Absent Provider Internal Medicine Gastroenterology; PCP Physician Assistant; Visit Provider Radiology Diagnostic Radiology | DX: N20.0 Calculus of kidney (principal) | CPT/HCPCS: 74176 ==

== ENCOUNTER 2024-09-16 09:33 | Outpatient (AMB) | payer OTHER, SELFPAY ==
--- NOTE | 2024-09-16 09:44 | MHC.OFFVIS ---
Vital Signs 09/16/24 09:59 Height 5 ft 5 in Weight 229 lb 2 oz BMI 38.1 BP 171/102 H Blood Pressure Location Lt brachial Position Sitting Pulse 88 Intake Visit Reasons: breast pain Intake Note: Patient is seen in office for follow up visit, breast pain. Pt c/o: bilateral breast pain near the axilla, since she had breast reduction, constant pain, worse when closing her arms us/mm: 06/26/24 L.OV: 07/08/24 (PRN) Radial Drill Press Set Up Operator Required: No Auto Body Painter: Auto Body Painter Present Accompanied by: Self / Same As Patient Allergies pineapple (PINEAPPLE) Allergy (Severe, Verified 09/16/24 09:47) ANAPHYLAXIS adhesive tape Allergy (Intermediate, Verified 09/16/24 09:47) Blister Iodinated Contrast Media (IV Dye, Iodine Containing) Allergy (Intermediate, Verified 09/16/24 09:47) SOB,RASH levofloxacin (From Levaquin) Allergy (Intermediate, Verified 09/16/24 09:47) swelling/rash oxycodone (From Percocet) Allergy (Intermediate, Verified 09/16/24 09:47) rash/SOB aspirin (ASA) Adverse Reaction (Mild, Verified 09/16/24 09:47) UPSET STOMACH Medication List - Last Reconciled 09/16/24 by Jeffrey Raines MD amlodipine 10 mg PO DAILY atorvastatin (Lipitor) 10 mg PO DAILY bisacodyl (Dulcolax (bisacodyl)) 10 mg (2 x 5 mg) PO ONCE 5 days budesonide-formoterol 160-4.5 mcg/actuation (Symbicort) 2 puffs inhalation BID cholecalciferol (vitamin D3) (Vitamin D3) 50 mcg PO DAILY diclofenac sodium 50 mg PO DAILY 30 days diphenhydramine HCl (Benadryl Allergy) 25 mg orally one tablet this evening and one tablet tomorrow am; docusate sodium 100 mg PO BID famotidine 20 mg PO BEDTIME PRN hydrochlorothiazide 25 mg PO DAILY ipratropium bromide 2 sprays intranasal TID 30 days ipratropium-albuterol 0.5 mg-3 mg(2.5 mg base)/3 mL 3 mL inhalation Q4-6H PRN levothyroxine (Tirosint) 200 mcg PO DAILY lisinopril 40 mg PO DAILY 90 days lorazepam 1 mg PO ONCE PRN metoprolol tartrate 100 mg PO BID 90 days mupirocin 2% 1 appl topical BID 30 days omalizumab (Xolair) 300 mg (2 mL) subcut Q2W omeprazole 40 mg (2 x 20 mg) PO DAILY ondansetron 4 mg PO Q8H PRN 30 days polyethylene glycol 3350 (Miralax) 17 grams PO DAILY 1 day pyridoxine (vitamin B6) 100 mg PO DAILY tamsulosin (Flomax) 0.4 mg PO BEDTIME tramadol 50 mg PO Q8H PRN Ventolin HFA 90 mcg/actuation (albuterol sulfate) 2 puffs inhalation Q4-6H PRN 30 days NS vonoprazan (Voquezna) 20 mg PO DAILY 8 weeks HPI Comments Details: 54-year-old female patient returning for re-evaluation of a palpable lump noted in the left breast in the 03:00 location. She was previously evaluated on 07/08/2024 for similar painful lesion of the left breast. Examination at that time revealed mainly fibrocystic change with no discrete mass. She reports continued pain in the left breast but also has some pain in the right breast as well. She underwent mammogram and ultrasound on 06/26/2024 which revealed bilateral reduction mammoplasty changes with no significant masses, abnormal calcifications or other abnormalities in the right side. On the left side a BB marker in the left upper outer breast posterior depth without underlying abnormality at the site of the palpable lumps. A targeted ultrasound in the area of the palpable lump demonstrated a previously seen hypoechoic oval solid mass versus complicated cyst in the 2 o'clock position approximately 12 cm from the nipple measuring 5 x 6 x 2 mm without significant change since 12/13/2020. This was felt to be benign. Patient reports bilateral reduction mammoplasties performed in 2008. This was complicated by wound separation in the right breast without infection. Reports tenderness in both breasts with palpation. She is 8 para 4 menarche age 10, 1st at 18. Family history is significant for a maternal aunt with breast cancer as well as a niece. [facility] Medical History Well woman exam Dysphagia Abnormal finding on EKG Hx of flexible sigmoidoscopy Internal derangement of right shoulder Lump of left breast Lump of right breast Lump of axillary tail of right breast Chronic constipation Rotator cuff impingement syndrome of left shoulder Right forearm pain Colitis Hypertensive urgency Rotator cuff impingement syndrome Lateral epicondylitis of both elbows Fall IBS (irritable bowel syndrome) Abdominal bloating Tendinopathy of left rotator cuff History of TIA (transient ischemic attack) Hypercholesterolemia Vitamin D deficiency Multinodular thyroid Pancreatic cyst Thyroid nodule Diarrhea Rectal bleeding Esophageal spasm GERD (gastroesophageal reflux disease) Hypertension Asthma Kidney stones History of migraine headaches Fibromyalgia Allergic rhinitis Sciatic nerve pain Ovarian cyst Hypothyroidism Surgical History History of arthroscopic surgery of shoulder Hx of eye surgery History of breast lump/mass excision Hx of hemorrhoidectomy Hx of tubal ligation History of esophagogastroduodenoscopy (EGD) History of colonoscopy (~11/16/19) H/O: hysterectomy History of thyroidectomy (~11/2018) History of kidney surgery Hx of bilateral breast reduction surgery Hx of appendectomy History of cholecystectomy (~2003) H/O lithotripsy Family History Father Family history of high blood pressure History of high cholesterol Mother History of diabetes mellitus Family history of high blood pressure Family history of asthma History of fibromyalgia Liver disease Maternal Grandfather Colon cancer Family/Other Breast cancer Maternal Aunt Breast cancer Family/Other Breast cancer Social History Household Members: Spouse Household Members Other:: daughter Housing: Apartment Are you a primary child care lead teacher to a significant other at home: No Do you presently have visiting nurse or other home services: No Alcohol intake: never Patient Tobacco Use Status: Former Tobacco user Tobacco use type: Cigarette Years Smoked: 15 e-Cigarette/Vaping Use: Never Used Second Hand Smoke Exposure: Yes Substance Use Type: Marijuana service: No Current occupational status: disabled Current occupation: right handed Sexual orientation: Straight/Heterosexual Gender identity: Female Cognitive needs: No Hearing needs: No Vision needs: Yes Female Reproductive History Menstrual Age of Menarche: 10 Review of Systems Const All systems reviewed & are unremarkable except as noted in HPI and below Physical Exam Vital Signs: Last Vital Signs Pulse 88 09/16/24 09:59 BP 171/102 H 09/16/24 09:59 BMI result Body Mass Index 38.1 Const General: cooperative and no acute distress Orientation/consciousness: patient oriented x3 Limitations: no limitations HEENT Head: Yes normocephalic and Yes atraumatic Ears: hearing grossly normal bilaterally Chest Other: Bilateral reduction mammoplasty scars which are all well healed. There is thickening of the scar bilaterally especially in the inframammary crease. Right breast: Diffuse fibrocystic change with tenderness but no suspicious skin changes, nipple discharge, palpable mass or enlarged lymph nodes Left breast: Diffuse fibrocystic change with slightly increased tenderness compared to the right side. An area of density is palpable today in the 3 o'clock position close to the axilla which is exquisitely tender to palpation measuring approximately 2 cm in diameter, mobile within the breast tissue. No overlying skin changes are appreciated. No palpable lymph nodes are appreciated. Chest/axillae images:  1. 2 cm palpable mass in the 3 o'clock position left breast Resp Effort & Inspection: normal respiratory effort, no audible wheezes, no cough and no respiratory distress Cardio Jugular venous distension: no JVD GI Inspection: Yes normal to inspection Skin Other: Warm, dry, no rash Neuro General: patient oriented x3 Extrem General: Yes no clubbing, cyanosis or edema Assessment & Plan Assessment & Plan (1) Breast lump on left side at 3 o'clock position: Comment: L breast 0.5 cm lump tender 3 o'clock 3 cm from the nipple Code(s): N63.25 - Unspecified lump in the left breast, overlapping quadrants Category: Medical Plan 54-year-old female patient presenting with a palpable lump in the left breast at the 3 o'clock position in the lateral portion of the breast almost into the axilla. This is exquisitely tender to palpation. The patient has requested excision of this lump and after review of the procedure, risks and alternatives, she consents to the lumpectomy left breast. This will be scheduled as a short-stay surgery at her earliest convenience. Coding Level of Care Code Est Pt Level 4 (62236) Diagnoses Breast lump on left side at 3 o'clock position N63.25
[2024-09-16 09:59] VITALS: BP 171/102; PULSE 88; BMI 38.1
--- OUTSIDE RECORDS SUMMARY | 2024-09-16 10:11 | XMS_ITS | Clinical Summary ---
Author Organization [facility] Address [address] [place] [id number] Phone Care Team Providers Care Creative Strategist Name Role Phone Unavailable Primary Care Provider [...] It is not the complete legal health record.[facility]
--- OUTSIDE RECORDS SUMMARY | 2024-09-16 10:11 | XMS_ITS | Clinical Summary ---
Author Organization [facility] Address [address] [place] [address], [place] [address] Care Team Providers Care Fashion Stylist Name Role Phone Naomi Bains MD Primary [...] Vaccine (#1) 2024 [facility] [place] [id number] [facility] Medicaid [facility] Medicaid Care Teams Fashion Stylist Relationship Specialty Start Date End Date Naomi Bains MD [address] [place] [phone] PCP - General 03/08/20
== END 2024-09-16 10:12 | disposition home or self-care (01) ==
LOC: HO.HGS 09:34
PROVIDERS: PCP Physician Assistant; Visit Provider Surgery
DX: N63.25 Unspecified lump in the left breast, overlapping quadrants (principal)
CPT/HCPCS: 99214

== ENCOUNTER → 2024-09-16 09:33 | Outpatient (BNVA) | payer OTHER, SELFPAY | PROVIDERS: PCP Physician Assistant; Visit Provider Surgery | DX: N64.4 Mastodynia (principal); N63.25 Unspecified lump in the left breast, overlapping quadrants | CPT/HCPCS: 99212 ==

== ENCOUNTER 2024-09-22 08:38 | Outpatient (AMB) | payer OTHER, SELFPAY ==
--- NOTE | 2024-09-22 08:42 | A.OFFVIS_ITS ---
Intake Visit Reasons: CT results Intake Note: Patient is present via telehealth for CT results * Abdomen & Pelvis CT 09/12 Urology Medication: Vitamin B6 Antibiotic Allergies: Levofloxacin Blood Thinners: None Spring Coiler Hand Required: No Accompanied by: Self / Same As Patient Allergies pineapple (PINEAPPLE) Allergy (Severe, Verified 11/07/24 09:53) ANAPHYLAXIS adhesive tape Allergy (Intermediate, Verified 11/07/24 09:53) Blister Iodinated Contrast Media (IV Dye, Iodine Containing) Allergy (Intermediate, Verified 11/07/24 09:53) SOB,RASH levofloxacin (From Levaquin) Allergy (Intermediate, Verified 11/07/24 09:53) swelling/rash oxycodone (From Percocet) Allergy (Intermediate, Verified 11/07/24 09:53) rash/SOB aspirin (ASA) Adverse Reaction (Mild, Verified 11/07/24 09:53) UPSET STOMACH Medication List - Last Reconciled 09/22/24 by Blanca Lujan MD amlodipine 10 mg PO DAILY atorvastatin (Lipitor) 10 mg PO DAILY bisacodyl (Dulcolax (bisacodyl)) 10 mg (2 x 5 mg) PO ONCE 5 days budesonide-formoterol 160-4.5 mcg/actuation (Symbicort) 2 puffs inhalation BID cholecalciferol (vitamin D3) (Vitamin D3) 50 mcg PO DAILY diclofenac sodium 50 mg PO DAILY 30 days diphenhydramine HCl (Benadryl Allergy) 25 mg orally one tablet this evening and one tablet tomorrow am; docusate sodium 100 mg PO BID famotidine 20 mg PO BEDTIME PRN hydrochlorothiazide 25 mg PO DAILY ipratropium bromide 2 sprays intranasal TID 30 days ipratropium-albuterol 0.5 mg-3 mg(2.5 mg base)/3 mL 3 mL inhalation Q4-6H PRN levothyroxine (Tirosint) 200 mcg PO DAILY lisinopril 40 mg PO DAILY 90 days lorazepam 1 mg PO ONCE PRN metoprolol tartrate 100 mg PO BID 90 days mupirocin 2% 1 appl topical BID 30 days omalizumab (Xolair) 300 mg (2 mL) subcut Q2W omeprazole 40 mg (2 x 20 mg) PO DAILY ondansetron 4 mg PO Q8H PRN 30 days polyethylene glycol 3350 (Miralax) 17 grams PO DAILY 1 day pyridoxine (vitamin B6) 100 mg PO DAILY tamsulosin (Flomax) 0.4 mg PO BEDTIME tramadol 50 mg PO Q8H PRN Ventolin HFA 90 mcg/actuation (albuterol sulfate) 2 puffs inhalation Q4-6H PRN 30 days NS vonoprazan (Voquezna) 20 mg PO DAILY 8 weeks HPI Comments Details: 09/22/24-- History of Present Illness - The patient is a 54-year-old female presenting with nephrolithiasis and associated discomfort. - A 5 mm stone was identified in the right kidney via CT scan, which was not visible on the previous ultrasound. - The patient reports ongoing discomfort on the right side. - 24 hr urine Calcium excretion was within normal limits, but oxalate levels were slightly elevated at 41 mg, above the normal range of 20-40 mg. - The patient has been advised to monitor dietary intake of oxalate-rich foods and to consider vitamin B6 supplementation to manage oxalate levels. Results - CT scan: 5 mm stone in the right kidney Plan - Plan to set up ESWLithotripsy for the right kidney - Encourage increased fluid intake to reach 2 to 2.5 liters daily to aid in stone prevention. - Advise dietary modifications to reduce oxalate intake, including limiting nuts, green leafy vegetables, and dark chocolate. - Prescribe vitamin B6 to help manage oxalate levels, with the option to purchase [id number] if not covered by insurance. 08/22/24--Discussed 24 hour urine results collected:03/31/24 Total volume 1.49 L, Calcium 162 mg; Oxalate 41 mg, Citrate 1028 mg, Sodium 131. Instructed on importance of fluid intake. History of Present Illness - The patient is a 53-year-old female presenting with nephrolithiasis. - She has a history of nephrolithiasis with a recent 24-hour urine collection showing normal calcium but elevated oxalate levels, likely due to dietary intake. - She experiences right-sided flank pain and hematuria - A renal ultrasound in May indicated mild fullness of the renal pelvis without renal stones. - discussed plan for CT scan to check for ureteral stones. Results - Labs: 24-hour urine collection in March showed normal urine calcium levels and slightly elevated urine oxalate levels, urine volume less than 2 L. - Imaging: Ultrasound in May showed mild fullness of the right renal pelvis. Discussion Notes I discussed with the patient the results of her 24-hour urine collection, which showed normal calcium levels but elevated oxalate levels, likely due to dietary factors. I advised her to continue increasing her fluid intake and to be mindful of her diet. We also reviewed her ultrasound results, which showed mild fullness of the renal pelvis but no stones. Given her symptoms of right-sided flank pain and hematuria, I recommended a CT scan to check for ureteral stones. We will follow up with a telehealth appointment to review the CT scan and urine results. 06/13/24-- s/p ESWL--04/30/24 for approximately 9x9mm left lower pole stone renal US 06/04/24-- no renal calculi Discussion Notes We discussed the post-procedural state, confirming that the ultrasound results, no renal stones visualized. I explained she might still experience symptoms such as mild hematuria. We plan for a 24-hour urine collection to determine any modifications needed in her diet to prevent future stones. During her follow-up, it is important to bring in any stones she might pass for further analysis. We also discussed the possibility that some stones might still be in the bladder, continuing her symptoms. I will see her again in about 10 weeks for re- evaluation and to plan further management based on additional data from the urine collection and stone analysis. We reviewed the urine collection process, including [employer] pickup services and written documentation requirements at length to ensure compliance. 03/03/24--Gloria is being followed for kidney stones. She had left ESWL on 04/04/2023. LV 05/31/23 --she was referred to Nephrology Renal US 10/22/23-- RIGHT KIDNEY: No focal parenchymal lesions or hydronephrosis. 1.0 cm lower pole nonobstructive calculus. LEFT KIDNEY: mild lower pole caliectasis versus a parapelvic cyst which appears similar to prior. 7 mm nonobstructing calculus in the mid kidney. 05/31/2023--Gloria is being followed for kidney stones. She had left ESWL on 04/04/2023. She presents for telehealth visit. Video attempted. The patient states she still gets intermittent pain in the left kidney area. She also states her urine appears dark and she thinks it may have blood. The patient is concerned as to her continuing to make kidney stones. She states she is being evaluated for a pancreatic problem. I have discussed recent renal ultrasound and CT scan results. Renal ultrasound 05/14/2023--3 mm left kidney stone, 5mm right kidney stone. CT scan 05/10/2023 bilateral punctate stones largest 4 mm right kidney. Plan discussed will start vitamin B6 100 mg daily, refer to nephrology for workup due to kidney stones. In regards to her complains regarding her urine I will have the nurses reach out to her to have her leave a urine specimen at the lab so that I can evaluate this. We will monitor kidneys renal ultrasound in 6 months. 03/07/2023--Gloria is a 52-year-old female who is here for evaluation for kidney stones. The patient states that she has had history of kidney stones and has had prior kidney stone treatments including shockwave lithotripsy. Past Medical history includes asthma, she is followed by Pulmonary, history of thyroid cancer status post thyroid removal, bowel condition. The patient complains of left kidney pain, denies blood in the urine. I have reviewed chart, imagin12/21/22-CTAP--left kidney stones and right punctate kidney stone 02/12/23- Renal US --Left kidney stones 4-5 mm I have discussed diet modification to increase fluids, low sodium and low oxalate diet, diet sheet provided. Discussed Left ESWL--risks to include but not limited to, blood in the urine, bruising to the skin, kidney hematoma, possible need for another procedure if a stone fragment obstructs the ureter while passing, possible need to repeat procedure if stone is not completely fragmented. UA- negative. Plan:Left ESWL. Needs pulmonary clearance prior 05/31/2023--Plan discussed will start vitamin B6 100 mg daily, refer to nephrology for workup due to kidney stones. In regards to her complains regarding her urine I will have the nurses reach out to her to have her leave a urine specimen at the lab so that I can evaluate this. We will monitor kidneys renal ultrasound in 6 months. [facility] Medical History At high risk for breast cancer Atypical ductal hyperplasia of left breast Migraines Dysphagia Hx of flexible sigmoidoscopy Internal derangement of right shoulder Lump of left breast Chronic constipation Rotator cuff impingement syndrome of left shoulder Colitis Rotator cuff impingement syndrome Lateral epicondylitis of both elbows IBS (irritable bowel syndrome) Tendinopathy of left rotator cuff History of TIA (transient ischemic attack) Hypercholesterolemia Vitamin D deficiency Multinodular thyroid Pancreatic cyst Thyroid nodule GERD (gastroesophageal reflux disease) Hypertension Asthma Kidney stones Fibromyalgia Allergic rhinitis Sciatic nerve pain Ovarian cyst Hypothyroidism Surgical History History of carpal tunnel release (09/25/24) History of arthroscopic surgery of shoulder Hx of eye surgery History of breast lump/mass excision Hx of hemorrhoidectomy Hx of tubal ligation History of esophagogastroduodenoscopy (EGD) History of colonoscopy (~11/16/19) H/O: hysterectomy History of thyroidectomy (~11/2018) History of kidney surgery Hx of bilateral breast reduction surgery Hx of appendectomy History of cholecystectomy (~2003) H/O lithotripsy (04/30/24) Family History Father Family history of high blood pressure History of high cholesterol Mother History of diabetes mellitus Family history of high blood pressure Family history of asthma History of fibromyalgia Liver disease Maternal Grandfather Colon cancer Family/Other Breast cancer Maternal Aunt Breast cancer Family/Other Breast cancer Social History Household Members: Spouse Household Members Other:: daughter Housing: Apartment Are you a primary care professional to a significant other at home: No Do you presently have visiting nurse or other home services: No Alcohol intake: never Patient Tobacco Use Status: Former Tobacco user Tobacco use type: Cigarette Years Smoked: 15 e-Cigarette/Vaping Use: Never Used Second Hand Smoke Exposure: Yes Substance Use Type: Marijuana service: No Current occupational status: disabled Current occupation: right handed Sexual orientation: Straight/Heterosexual Gender identity: Female Cognitive needs: No Hearing needs: No Vision needs: Yes Female Reproductive History Menstrual Age of Menarche: 10 Review of Systems Const All systems reviewed & are unremarkable except as noted in HPI and below Reports no additional complaints Eyes Reports no additional complaints ENT Reports no additional complaints Card Reports no additional complaints Resp Reports no additional complaints GI Reports no additional complaints Reports as per HPI Musc Reports no additional complaints Skin/Breast Reports system reviewed and no additional complaints, except as documented Neuro Reports no additional complaints Psych Reports no additional complaints Endo Reports no additional complaints Chuy/Lymph Reports no additional complaints Aller/Immun Reports no additional complaints Telehealth Telehealth Telehealth Platform: Telephone Location of provider rendering services: practice address Location of patient: address on file Patient Identification confirmed using: Name, : Yes Telehealth method: voice only Patient verbally consented to treatment: Yes Patient verbally consented to billing insurance company: Yes Patient informed of any privacy concerns related to visit: Yes Minutes spent on Phone/Video with Pt.: 15 Results Reviewed Results Reviewed: Date of Service: 09/12/24 EXAMINATION: CT ABDOMEN PELVIS WITHOUT IV CONTRAST HISTORY: N13.30 - Unspecified hydronephrosis COMPARISON: Comparison is made with prior examinations dated 05/10/2023 and 12/21/2022. TECHNIQUE: CT scan of the abdomen and pelvis was performed without contrast using standard departmental protocol. Coronal and sagittal reformatted images were generated and reviewed. Oral contrast material was not administered per department protocol. This CT exam was performed with one or more of the following dose reduction techniques: automated exposure control, adjustment of the mA and/or kV according to patient size, use of iterative reconstruction technique. DLP: 712 mGy-cm FINDINGS: LOWER CHEST: The visualized lung bases are clear. There is no pleural effusion. CARDIOVASCULATURE: The heart is normal in size. There is no pericardial effusion. LIVER: The liver is normal in size and contour. The liver has an unremarkable unenhanced appearance. GALLBLADDER / BILE DUCTS: The gallbladder is surgically absent. There is no intra or extrahepatic biliary ductal dilatation. SPLEEN: The spleen is normal in size and has an unremarkable unenhanced appearance. PANCREAS: The pancreas has an unremarkable unenhanced appearance. ADRENAL GLANDS: Unremarkable. KIDNEYS/RETROPERITONEUM: There is a nonobstructing 5 mm calculus at the lower pole of the right kidney. There are probable punctate nonobstructing calculi in the interpolar region of the left kidney. There are extrarenal pelves bilaterally. Findings are similar in appearance to the prior studies. There is no hydronephrosis or hydroureter. No ureteral calculi are identified. LYMPH NODES: No retroperitoneal lymphadenopathy is identified in the abdomen or pelvis. VASCULATURE: The abdominal aorta is normal in caliber. MESENTERY/PERITONEUM: No free fluid. No masses. There is no free intraperitoneal gas. STOMACH: There is a small hiatal hernia. There is a large amount of debris in the stomach. SMALL BOWEL: The small bowel is normal in caliber. COLON: The colon is unremarkable. APPENDIX: The appendix is surgically absent. URINARY BLADDER/PELVIC ORGANS: The urinary bladder is unremarkable. The patient is status post hysterectomy. BONES / SOFT TISSUES: No suspicious bony or soft tissue abnormalities. IMPRESSION: Bilateral nephrolithiasis as described. Bilateral extrarenal pelves without evidence of hydronephrosis or ureteral obstruction. Date of Service: 06/04/24 EXAMINATION: US KIDNEY BILATERAL HISTORY: N20.0 - Calculus of kidney TECHNIQUE: Real-time grayscale ultrasound imaging of the kidneys was performed and images were reviewed. COMPARISON: Comparison is made with the prior examination dated 10/22/2023. FINDINGS: Right kidney: The right kidney measures 12.9 x 6.3 x 5.4 cm. Renal parenchymal echotexture and thickness are normal. There are no masses. There is fullness of the renal pelvis without hydronephrosis. No calculi are identified. Left Kidney: The left kidney measures 13.4 x 6.6 x 5.6 cm. Renal parenchymal echotexture and thickness are normal. There are no masses. Again seen is mild hydronephrosis. No calculi are identified. Imaging of the urinary bladder demonstrates bilateral ureteral jets. IMPRESSION: Mild fullness of the right renal pelvis. Mild left hydronephrosis. No calculi are identified. Date of Service: 10/22/23 US BILATERAL KIDNEYS CLINICAL INFORMATION: Calculus of kidney. COMPARISON: Renal ultrasound 05/14/2023 TECHNIQUE: Real-time imaging of the kidneys. FINDINGS: RIGHT KIDNEY: 12.9 x 5.8 x 7.1 cm (SAG x AP x TRV). The kidney is normal in size, contour, and echogenicity. Renal cortical thickness is normal. No focal parenchymal lesions or hydronephrosis. 1.0 cm lower pole nonobstructive calculus. LEFT KIDNEY: 12.2 x 6.1 x 5.0 cm (SAG x AP x TRV). The kidney is normal in size, contour, and echogenicity. Renal cortical thickness is normal. There is mild lower pole caliectasis versus a parapelvic cyst which appears similar to prior. 7 mm nonobstructing calculus in the mid kidney. IMPRESSION: Nonobstructing bilateral renal calculi. Mild left lower pole caliectasis versus a parapelvic cyst appears similar to prior. Date of Service: 05/14/23 EXAMINATION: US RETROPERITONEAL LIMITED (RENAL ONLY) CLINICAL INFORMATION: Calculus of kidney. COMPARISON: CT abdomen and pelvis 05/10/2023. X-ray KUB 04/04/2023. Renal ultrasound 02/12/2023 and 08/08/2020. MRI abdomen 02/14/2018. TECHNIQUE: Real-time imaging of the kidneys. FINDINGS: RIGHT KIDNEY: 12.6 x 4.8 x 5.7 cm (SAG x AP x TRV). The kidney is normal in size, contour, and echogenicity. Renal cortical thickness is normal. No focal parenchymal lesions. Nonobstructing 5 mm stone. LEFT KIDNEY: 11.7 x 5.7 x 4.7 cm (SAG x AP x TRV). The kidney is normal in size, contour, and echogenicity. Renal cortical thickness is normal. No focal parenchymal lesions. Mild hydronephrosis. No proximal obstructing stone. Nonobstructing 3 mm stone is noted. IMPRESSION: * Mild left hydronephrosis. No proximal obstructing stone. * Bilateral nonobstructing nephrolithiasis. Date of Service: 05/10/23 EXAMINATION: CT ABDOMEN AND PELVIS WITHOUT CONTRAST CLINICAL INFORMATION: Abdominal pain and distention. COMPARISON: None available. TECHNIQUE: Multidetector volumetric imaging was performed from the superior aspect of the liver through the pubic symphysis. Sagittal and coronal reformatted images were obtained on the technologist's workstation. This CT examination was performed using dose optimization techniques as appropriate, variously including the following: *Automated exposure control *Adjustment of mA and/or kV according to patient size (this includes techniques or standardized protocols for targeted exams where dose is matched to indication/reason for exam; i.e. extremities or head) *Use of iterative reconstruction technique DLP: 862 mGy-cm FINDINGS: LUNG BASES: The visualized lung bases are unremarkable. LIVER, GALLBLADDER, AND BILIARY TREE: The liver is normal in size, shape, and attenuation. No focal hepatic lesion or biliary ductal dilatation is present. There has been a prior cholecystectomy. PANCREAS: Unremarkable. SPLEEN: Unremarkable. ADRENAL GLANDS: Unremarkable. KIDNEYS AND URETERS: The kidneys are normal in size, shape, and attenuation. There are scattered bilateral renal calculi measuring up to 5 mm lower pole right kidney. There is no hydronephrosis. BLADDER: Unremarkable. GASTROINTESTINAL TRACT: There is a small hiatal hernia. The large and small bowel are within normal limits. The appendix is not seen. ABDOMINAL WALL: No significant hernia is appreciated. LYMPH NODES: Normal. VASCULAR: Unremarkable. PELVIC VISCERA: Unremarkable. OSSEOUS STRUCTURES: There is diffuse thoracolumbar disc degenerative change with prominent posterior osteophytes of the lower thoracic spine with spinal canal narrowing at multiple levels.. IMPRESSION: 1. No acute intra-abdominal abnormality. 2. Bilateral nonobstructing renal calculi. 3. Diffuse thoracolumbar disc degenerative change with prominent posterior osteophytes of the lower thoracic spine with spinal canal narrowing at multiple levels. Assessment & Plan Assessment & Plan (1) Kidney stones: Code(s): N20.0 - Calculus of kidney Category: Medical (2) Hyperoxaluria: Code(s): R82.992 - Hyperoxaluria Category: Medical Plan Vit B6, Right ESWL Discussed risks to include but not limited to, blood in the urine, bruising to the skin, kidney hematoma, possible need for another procedure if a stone fragment obstructs the ureter while passing, possible need to repeat procedure if stone is not completely fragmented. Medications: New pyridoxine (vitamin B6) 100 mg PO DAILY 90 tabs 3RF Discontinued pyridoxine (vitamin B6) Discontinued Reason: Duplicate 100 mg PO DAILY 90 tabs 3RF Scribe Plan - Not visible on output: Patient was informed and verbally consented to the use of an ambient scribe for clinic note documentation during this visit. Coding Level of Care Code Tele Est Pt Level 4 (37365) Diagnoses Kidney stones N20.0 Hyperoxaluria R82.992
--- OUTSIDE RECORDS SUMMARY | 2024-09-22 08:59 | XMS_ITS | Clinical Summary ---
Author Organization [facility] Address [address] [place] [phone] Phone Care Team Providers Care Cashier General Name Role Phone Unavailable Primary Care Provider [...] It is not the complete legal health record.[facility]
--- OUTSIDE RECORDS SUMMARY | 2024-09-22 08:59 | XMS_ITS | Clinical Summary ---
Author Organization [facility] Facility Address [address] [place] [address], [place] [address] Care Team Providers Care Intake Man Name Role Phone Naomi Bains MD Primary [...] Vaccine (#1) 2024 [facility] [place] [id number] [facility] Medicaid [facility] Medicaid Care Teams Intake Man Relationship Specialty Start Date End Date Naomi Bains MD [address] [place] [id number] PCP - General 03/08/20
--- OUTSIDE RECORDS SUMMARY | 2024-09-22 08:59 | XMS_ITS | Encounter Summary ---
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 [address] [place] [address] Marcel Arriaga MD Social History Tobacco Use Types Packs/Day Years Used Date Smoking Tobacco: Never Assessed Sex Assigned at Date Recorded Not on file documented as of this encounter Plan of Treatment Not on file documented as of this encounter Visit Diagnoses Not on filedocumented in this encounter Care Teams Respiratory Care Assistant Relationship Specialty Start Date End Date Tej Fitch MD [address] [phone] PCP - General 12/12/07 11/03/12 Radha Camarillo [address] [place] [id number] PCP - General Family Practice 11/04/12 11/25/13 Nikki Mayfield FNP [address] [place] [id number] PCP - General Family Practice 11/26/13 05/26/18 Naomi Bains MD [address] [place] [id number] PCP - General Family Practice 05/27/18 06/27/18 Tommy Smith MD [address] [place] [id number] PCP - General Internal Medicine 06/28/18 documented as of this encounter
== END 2024-09-22 13:54 | disposition home or self-care (01) ==
LOC: HO.HUSH 08:38
PROVIDERS: PCP Physician Assistant; Visit Provider Urology
DX: N20.0 Calculus of kidney (principal); R82.992 Hyperoxaluria
CPT/HCPCS: 99214

== ENCOUNTER 2024-09-25 10:06 | Day surgery (SDC) | payer OTHER, SELFPAY ==
[2024-09-25 10:40] VITALS: BP 181/109; PULSE 79; RESP 16; TEMP 36.8; O2SAT 98; BMI 37.6
--- NOTE | 2024-09-25 11:58 | MHC.SHP ---
Pre-Procedural Eval Section A - 24 Hr Update-Section A only Date of Service: 09/25/24 The patient is an INPATIENT: No Changes since office visit: No Cold of Flu in the past 2 weeks, No New Medical Problems, No Changes in Medication and No Patient answered all questions The patient has been examined within 24 hours of the surgical procedure. The History & Physical has been completed within 30 days and I have reviewed it.: Yes Section B - Complete if H&P > 30 days Chief Complaint: Carpal tunnel syndrome, right upper limb Allergies: Allergies Allergy/AdvReac Type Severity Reaction Status Date / Time pineapple (PINEAPPLE) Allergy Severe ANAPHYLAXIS Verified 09/22/24 08:44 adhesive tape Allergy Intermediate Blister Verified 09/22/24 08:44 Iodinated Contrast Media (IV Allergy Intermediate SOB,RASH Verified 09/22/24 08:44 Dye, Iodine Containing) levofloxacin (From Levaquin) Allergy Intermediate swelling/ra Verified 09/22/24 08:44 sh oxycodone (From Percocet) Allergy Intermediate rash/SOB Verified 09/22/24 08:44 aspirin (ASA) AdvReac Mild UPSET Verified 09/22/24 08:44 STOMACH Plan Diagnosis/Plan: Unchanged I have reviewed the history and physical and performed a pertinent physical examination on my patient. No changes have occurred unless specified. Time Spent With Patient Time: Total time managing care of this patient today ____ minutes.
--- NOTE | 2024-09-25 11:58 | W.PM.OPN ---
Operative Note Operative Note Date of Service: 09/25/24 Narrative: Preop diagnosis: 1. Right Carpal tunnel syndrome Postop diagnosis: same Procedure: 1. Right Carpal tunnel release Surgeon: Teri Castanon MD Embossed Or Impressed Lettering Painter: Dale RAUSCH Anesthesia: local block using 1% lidocaine with epinephrine Findings: Thickened transverse carpal ligament. EBL: Less than 5 mL Specimens: None Complications: None Disposition: Brought to recovery room in stable condition Plan: Follow-up for 10-14 days for wound check and suture removal Indications: The patient is 54 years old, with right carpal tunnel syndrome that has been unresponsive to nonoperative management. The risks and benefits of operative treatment including but not limited to risk of damage to blood vessels, nerves, tendons, infection, persistent pain, persistent symptoms, or possible need for additional surgery were discussed with the patient and the patient wishes to proceed with surgery. Procedure: Once consent was obtained a local block was performed using a combination of 1% lidocaine with epinephrine. The patient was then brought back to the operating suite and placed on the operative table in supine position. The right upper extremity was prepped and draped in a standard surgical fashion. Once assured that we had a good block, a 2.0 cm longitudinal incision was made centered over the carpal tunnel. The incision was made through the skin to the subcutaneous tissues using a #15 blade. Dissection was made down to the level of the transverse carpal ligament with care being taken to protect the palmar cutaneous nerve. Once the transverse carpal ligament was clearly visualized, a longitudinal incision was made in the transverse carpal ligament 1st using a #15 blade, then using tenotomy scissors under direct visualization. Care was taken to look for and protect the motor branch of the median nerve when seen in this area. Once satisfied with our carpal tunnel release the wound was copiously irrigated with normal saline and hemostasis was obtained with a brief period of local pressure. The skin edges were reapproximated with some 5.0 nylon suture material and a sterile dressing was applied. The patient appears to have tolerated the procedure well and with no complications. All digits were well vascularized at the conclusion of the case.
[2024-09-25 13:09] VITALS: BP 162/106; PULSE 115
== END 2024-09-25 13:35 | disposition home or self-care (01) ==
PROVIDERS: PCP Physician Assistant; Visit Provider Orthopaedic Surgery
PROC: (CPT 64721; principal; 2024-09-25 12:00)
DX: G56.01 Carpal tunnel syndrome, right upper limb (principal); G47.33 Obstructive sleep apnea (adult) (pediatric); M79.631 Pain in right forearm; M79.7 Fibromyalgia; I10 Essential (primary) hypertension; E78.00 Pure hypercholesterolemia, unspecified; J45.909 Unspecified asthma, uncomplicated; E55.9 Vitamin D deficiency, unspecified; Z86.73 Personal history of transient ischemic attack (TIA), and cerebral infarction without residual deficits; L23.1 Allergic contact dermatitis due to adhesives; Z88.1 Allergy status to other antibiotic agents; Z88.5 Allergy status to narcotic agent; Z88.6 Allergy status to analgesic agent; Z91.041 Radiographic dye allergy status; Z98.890 Other specified postprocedural states; Z87.891 Personal history of nicotine dependence
CPT/HCPCS: 64721; J0165; J2003

== ENCOUNTER → 2024-09-25 10:06 | Outpatient (BNV) | payer OTHER, SELFPAY | PROVIDERS: PCP Physician Assistant; Visit Provider Orthopaedic Surgery | DX: G56.01 Carpal tunnel syndrome, right upper limb (principal) | CPT/HCPCS: 64721 ==

== ENCOUNTER 2024-09-30 14:29 | Outpatient (AMB) | payer OTHER, SELFPAY ==
--- NOTE | 2024-09-30 14:31 | MHC.OFFVIS ---
Vital Signs 09/30/24 14:32 Height 5 ft 5 in Weight 227 lb BMI 37.8 BP 146/97 H Blood Pressure Location Lt brachial Position Sitting Pulse 92 Pulse Source Pulse Oximeter Pulse Oximetry (%) 96 Oxygen Delivery Method Room Air Intake Visit Reasons: , mass excision 10/06 Allergies pineapple (PINEAPPLE) Allergy (Severe, Verified 09/22/24 08:44) ANAPHYLAXIS adhesive tape Allergy (Intermediate, Verified 09/22/24 08:44) Blister Iodinated Contrast Media (IV Dye, Iodine Containing) Allergy (Intermediate, Verified 09/22/24 08:44) SOB,RASH levofloxacin (From Levaquin) Allergy (Intermediate, Verified 09/22/24 08:44) swelling/rash oxycodone (From Percocet) Allergy (Intermediate, Verified 09/22/24 08:44) rash/SOB aspirin (ASA) Adverse Reaction (Mild, Verified 09/22/24 08:44) UPSET STOMACH HPI HPI , mass excision 10/06: Details: 53-year-old lady with underlying severe persistent allergic asthma and environmental allergies. She has been using Xolair, Symbicort, duo nebs, and albuterol MDI with good control. She has not completed her sleep study yet. She denies recent exacerbations. [facility] Medical History Well woman exam Dysphagia Abnormal finding on EKG Hx of flexible sigmoidoscopy Internal derangement of right shoulder Lump of left breast Lump of right breast Lump of axillary tail of right breast Chronic constipation Rotator cuff impingement syndrome of left shoulder Right forearm pain Colitis Hypertensive urgency Rotator cuff impingement syndrome Lateral epicondylitis of both elbows Fall IBS (irritable bowel syndrome) Abdominal bloating Tendinopathy of left rotator cuff History of TIA (transient ischemic attack) Hypercholesterolemia Vitamin D deficiency Multinodular thyroid Pancreatic cyst Thyroid nodule Diarrhea Rectal bleeding Esophageal spasm GERD (gastroesophageal reflux disease) Hypertension Asthma Kidney stones History of migraine headaches Fibromyalgia Allergic rhinitis Sciatic nerve pain Ovarian cyst Hypothyroidism Surgical History History of arthroscopic surgery of shoulder Hx of eye surgery History of breast lump/mass excision Hx of hemorrhoidectomy Hx of tubal ligation History of esophagogastroduodenoscopy (EGD) History of colonoscopy (~11/16/19) H/O: hysterectomy History of thyroidectomy (~11/2018) History of kidney surgery Hx of bilateral breast reduction surgery Hx of appendectomy History of cholecystectomy (~2003) H/O lithotripsy Family History Father Family history of high blood pressure History of high cholesterol Mother History of diabetes mellitus Family history of high blood pressure Family history of asthma History of fibromyalgia Liver disease Maternal Grandfather Colon cancer Family/Other Breast cancer Maternal Aunt Breast cancer Family/Other Breast cancer Social History Household Members: Spouse Household Members Other:: daughter Housing: Apartment Are you a primary managed care liaison to a significant other at home: No Do you presently have visiting nurse or other home services: No Alcohol intake: never Patient Tobacco Use Status: Former Tobacco user Tobacco use type: Cigarette Years Smoked: 15 e-Cigarette/Vaping Use: Never Used Second Hand Smoke Exposure: Yes Substance Use Type: Marijuana service: No Current occupational status: disabled Current occupation: right handed Sexual orientation: Straight/Heterosexual Gender identity: Female Cognitive needs: No Hearing needs: No Vision needs: Yes Female Reproductive History Menstrual Age of Menarche: 10 Review of Systems Const Denies daytime sleepiness, Denies excessive sweating, Denies fatigue, Denies fever(s), Denies lethargy, Denies malaise, Denies night sweats, Denies snoring and Denies weight loss Eyes Denies blurry vision and Denies itchy eyes ENT Denies nasal congestion, Denies post nasal drip, Denies sinus pain, Denies sinus pressure and Denies other ( Thrush) Card Denies chest pain, Denies pedal edema, Denies dyspnea, Denies orthopnea and Denies paroxysmal nocturnal dyspnea Resp Denies cough, Denies hemoptysis, Denies excessive phlegm production, Denies dyspnea, Denies snoring and Denies wheezing GI Denies abdominal pain and Denies heartburn Musc Denies myalgias, Denies arthralgias and Denies joint swelling Skin/Breast Denies rash Neuro Denies memory loss and Denies seizure-like activity Psych Denies abnormal sleep pattern, Denies anxiety and Denies memory loss Endo Denies excessive sweating, Denies fatigue and Denies heat intolerance Chuy/Lymph Denies easy bruising Aller/Immun Denies itchy eyes, Denies seasonal rhinorrhea and Denies wheezing Physical Exam Vital Signs: Last Vital Signs Pulse 92 09/30/24 14:32 BP 146/97 H 09/30/24 14:32 Pulse Ox 96 09/30/24 14:32 Oxygen Delivery Method Room Air 09/30/24 14:32 BMI result Body Mass Index 37.8 Const General: no acute distress and alert Nutritional Appearance: obese Orientation/consciousness: Other orientation findings ( oriented) HEENT Head: Yes atraumatic Eyes General: appearance normal, both eyes and all related structures Sclerae: sclerae normal EOM: EOMs intact bilaterally Neck Neck: Yes supple Lymphatic: no lymphadenopathy noted Resp Effort & Inspection: normal respiratory effort and no use of accessory muscles Auscultation: clear to auscultation bilaterally Cardio Rate: regular rate Rhythm: regular rhythm Heart sounds: no gallops, no murmurs and no rubs Skin General skin exam: other ( warm) Extrem General: No clubbing, No cyanosis and No edema Assessment & Plan Assessment & Plan (1) Severe persistent asthma: Code(s): J45.50 - Severe persistent asthma, uncomplicated Category: Medical Qualifiers: Asthma complication type: with acute exacerbation Qualified Code(s): J45.51 - Severe persistent asthma with (acute) exacerbation Plan: Well controlled on current regimen of Xolair, Symbicort, duo nebs, and albuterol MDI. Continue current regimen. (2) JULISA (obstructive sleep apnea): Code(s): G47.33 - Obstructive sleep apnea (adult) (pediatric) Category: Medical Plan: Sleep study is pending. (3) Environmental allergies: Code(s): Z91.09 - Other allergy status, other than to drugs and biological substances Category: Medical Plan: Well controlled on Xolair. Continue current regimen. (4) Preop pulmonary/respiratory exam: Code(s): Z01.811 - Encounter for preprocedural respiratory examination Category: Medical Plan: At this time patient is at low risk for pulmonary perioperative complications for the proposed breast mass excision under general anesthesia. Coding Level of Care Code Est Pt Level 4 (59486) Complex EM visit Add On G2211 Diagnoses Severe persistent asthma with acute exacerbation J45.51 Asthma complication type: with acute exacerbation JULISA (obstructive sleep apnea) G47.33 Environmental allergies Z91.09 Preop pulmonary/respiratory exam Z01.811
[2024-09-30 14:32] VITALS: BP 146/97; PULSE 92; O2SAT 96; BMI 37.8
--- OUTSIDE RECORDS SUMMARY | 2024-09-30 15:08 | XMS_ITS | Clinical Summary ---
Author Organization Formerly [facility] Address [address] [place] [id number] Phone Care Team Providers Care Security Checker Name Role Phone Unavailable Primary Care Provider [...] It is not the complete legal health record.[facility]
--- OUTSIDE RECORDS SUMMARY | 2024-09-30 15:08 | XMS_ITS | Clinical Summary ---
Author Organization [facility] Facility Address [address] [place] [address], [place] [address] Care Team Providers Care Meat Department Manager Name Role Phone Naomi Bains MD [...] 2021 Influenza Vaccine (#1) 2024 [place] [id number] [facility] Medicaid [facility] Medicaid Care Teams Meat Department Manager Relationship Specialty Start Date End Date Naomi Bains MD PCP - General 03/08/20
== END 2024-09-30 14:54 | disposition home or self-care (01) ==
LOC: HO.HPS 14:30
PROVIDERS: PCP Physician Assistant; Visit Provider Internal Medicine Pulmonary Disease
DX: J45.51 Severe persistent asthma with (acute) exacerbation (principal); G47.33 Obstructive sleep apnea (adult) (pediatric); Z91.09 Other allergy status, other than to drugs and biological substances; Z01.811 Encounter for preprocedural respiratory examination
CPT/HCPCS: 99214

== ENCOUNTER → 2024-09-30 14:29 | Outpatient (BNVA) | payer OTHER, SELFPAY | PROVIDERS: PCP Physician Assistant; Visit Provider Internal Medicine Pulmonary Disease | DX: Z01.811 Encounter for preprocedural respiratory examination (principal); J45.51 Severe persistent asthma with (acute) exacerbation; G47.33 Obstructive sleep apnea (adult) (pediatric); Z91.09 Other allergy status, other than to drugs and biological substances | CPT/HCPCS: 99212 ==

== ENCOUNTER 2024-10-06 07:43 | Day surgery (SDC) | payer OTHER, SELFPAY ==
--- OUTSIDE RECORDS SUMMARY | 2024-08-21 09:05 | XMS_ITS | Clinical Summary ---
Author Organization [facility] Facility Address [address] [place] [id number] Care Team Providers Care Acid Painter Name Role Phone Naomi Bains MD Primary [...] Influenza Vaccine (Season Ended) 2024 [place] [id number] [facility] Medicaid [facility] Medicaid Care Teams Acid Painter Relationship Specialty Start Date End Date Naomi Bains MD [address] [place] [phone] PCP - General 03/08/20
[2024-10-02 14:41] VITALS: BMI 37.8
--- NOTE | 2024-10-03 10:13 | HO.ANESPROP2 ---
Documented by User: Cristy Gunderson NP 10/03/24 10:24 HPI - Anesthesia Eval Consult details Narrative: 54yo F for Upper Endoscopy and Colonoscopy Pt also being worked up for mass excision under GA - medically and pulmo optimized Follows [facility] Cardiology for palps and unspecified visual disturbance - all testing negative as below PMFSH Active Problems Active Problems: All Active Problems Preop pulmonary/respiratory exam (Acute) Right carpal tunnel syndrome (Acute) Hydronephrosis, right (Acute) Eustachian tube dysfunction (Acute) JULISA (obstructive sleep apnea) (Acute) Breast lump on left side at 3 o'clock position (Acute) Blurred vision, bilateral (Acute) Nausea (Acute) Easy bruisability (Acute) Injury of left great toe (Acute) Severe persistent asthma (Acute) Nasal abrasion (Acute) MDD (major depressive disorder), recurrent episode, moderate (Acute) Eustachian tube disorder (Acute) Ear congestion (Acute) Numbness and tingling in both hands (Acute) Arthritis of carpometacarpal (CMC) joint of left thumb (Acute) De Quervain's tenosynovitis, left (Acute) Preop cardiovascular exam (Acute) Alteration in vision (Acute) Palpitations (Acute) Thumb tendonitis (Acute) MGUS (monoclonal gammopathy of unknown significance) (Acute) Hand pain (Acute) Precordial chest pain (Acute) Elevated immunoglobulin A (Acute) Hyper-IgE syndrome (Acute) Acute diarrhea (Acute) Small intestinal bacterial overgrowth (Acute) Encounter for preoperative pulmonary examination (Acute) 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 (Acute) Chronic diarrhea (Acute) Pelvic pain (Acute) Breast lump on left side at 1 o'clock position (Acute) Chest pain (Acute) Bilateral renal stones (Acute) Acute pancreatitis (Acute) Elevated lipase (Acute) Abdominal pain (Acute) PND (paroxysmal nocturnal dyspnea) (Acute) Right elbow pain (Acute) Migraine (Acute) Skin candidiasis (Acute) Pruritic rash (Acute) Intermittent constipation (Acute) Lichen simplex chronicus (Acute) Obesity (Acute) GERD (gastroesophageal reflux disease) (Acute) Vulvar lesion (Acute) Irritable bowel syndrome (Acute) Post-surgical hypothyroidism (Acute) History of repair of right rotator cuff (Acute) Environmental allergies (Acute) Depression (Acute) Adhesive capsulitis of left shoulder (Acute) Complete rotator cuff tear or rupture of right shoulder, not specified as traumatic (Acute) Well woman exam (Acute) Hypothyroidism (Acute) History of TIA (transient ischemic attack) (Acute) Kidney stones (Acute) Hypercholesterolemia (Acute) Vitamin D deficiency (Acute) Pancreatic cyst (Acute) Hypertension (Acute) Asthma (Acute) Esophageal spasm (Acute) Fibromyalgia (Acute) Past Medical History Medical History (Updated 09/30/24 @ 15:20 by Pravin Odonnell MD) Well woman exam Dysphagia Abnormal finding on EKG Hx of flexible sigmoidoscopy Internal derangement of right shoulder Lump of left breast Lump of right breast Lump of axillary tail of right breast Chronic constipation Rotator cuff impingement syndrome of left shoulder Right forearm pain Colitis Hypertensive urgency Rotator cuff impingement syndrome Lateral epicondylitis of both elbows Fall IBS (irritable bowel syndrome) Abdominal bloating Tendinopathy of left rotator cuff History of TIA (transient ischemic attack) Hypercholesterolemia Vitamin D deficiency Multinodular thyroid Pancreatic cyst Thyroid nodule Diarrhea Rectal bleeding Esophageal spasm GERD (gastroesophageal reflux disease) Hypertension Asthma Kidney stones History of migraine headaches Fibromyalgia Allergic rhinitis Sciatic nerve pain Ovarian cyst Hypothyroidism Family History Family History Father Family history of high blood pressure History of high cholesterol Mother History of diabetes mellitus Family history of high blood pressure Family history of asthma History of fibromyalgia Liver disease Maternal Grandfather Colon cancer Family/Other Breast cancer Maternal Aunt Breast cancer Family/Other Breast cancer Family history of problems with anesthesia: No Surgical History Surgical History (Updated 10/02/24 @ 14:48 by Daija Genao RN) History of carpal tunnel release (09/25/24) History of arthroscopic surgery of shoulder Hx of eye surgery History of breast lump/mass excision Hx of hemorrhoidectomy Hx of tubal ligation History of esophagogastroduodenoscopy (EGD) History of colonoscopy (~11/16/19) H/O: hysterectomy History of thyroidectomy (~11/2018) History of kidney surgery Hx of bilateral breast reduction surgery Hx of appendectomy History of cholecystectomy (~2003) H/O lithotripsy (04/30/24) History of Problems with Anesthesia: No Social History Social History Household Members: Spouse Household Members Other:: daughter Housing: Apartment Are you a primary child care center administrator to a significant other at home: No Do you presently have visiting nurse or other home services: No Alcohol intake: never Patient Tobacco Use Status: Former Tobacco user Tobacco use type: Cigarette Years Smoked: 15 e-Cigarette/Vaping Use: Never Used Second Hand Smoke Exposure: Yes Use of substances other than those prescribed or required for medical reasons: Yes Substance Use Type: Marijuana Are you DNR?: No Advance Directives: No Advance Directives Information Provided: Yes Patient : No : No Poor oral hygiene: No service: No Current occupational status: disabled Current occupation: right handed Sexual orientation: Straight/Heterosexual Gender identity: Female Cognitive needs: No Hearing needs: No Vision needs: Yes Meds Allergies Allergy/AdvReac Type Severity Reaction Status Date / Time pineapple (PINEAPPLE) Allergy Severe ANAPHYLAXIS Verified 09/22/24 08:44 adhesive tape Allergy Intermediate Blister Verified 09/22/24 08:44 Iodinated Contrast Media (IV Allergy Intermediate SOB,RASH Verified 09/22/24 08:44 Dye, Iodine Containing) levofloxacin (From Levaquin) Allergy Intermediate swelling/ra Verified 09/22/24 08:44 sh oxycodone (From Percocet) Allergy Intermediate rash/SOB Verified 09/22/24 08:44 aspirin (ASA) AdvReac Mild UPSET Verified 09/22/24 08:44 STOMACH Exam Height,Weight and Vital Signs: Height 5 ft 5 in Weight 102.965 kg Pertinent Lab Results Pertinent Lab Results: Laboratory Tests 06/24/24 09:03 WBC 8.0 Hgb 13.7 Hct 40.5 Plt Count 282 Sodium 140 Potassium 3.9 Chloride 107 Carbon Dioxide 24 BUN 16 Creatinine 0.64 Narrative Narrative: EKG 01/2024 NSR @ 76 Low volt QRS Echocardiogram done 09/11/2023 showing EF 60-65%, mild LVH, impaired relaxation, no valve abnormalities. Exercise stress echocardiogram done 11/06/2023 with exercise 6 minutes, report of mild chest tightness, no EKG or echo evidence of ischemia. carotid ultrasound was done on 11/26/2023 showing normal right ICA, minimal, non hemodynamically significant stenosis of the proximal left ICA, 0-49% stenosis. CTA of the head and neck was done 02/19/2024 showing no acute abnormalities Holter 02/2024 Conclusion: 1. Baseline rhythm is normal sinus rhythm with no significant pauses 2. No significant arrhythmias noted 3. Frequent sinus tachycardia noted with 42% of time heart rate about 100 beats per minute 4. Patient reported multiple events with symptoms of chest pressure, lightheadedness correlating with sinus tachycardia Assessment and Plan Assessment Anesthesia Assessment: Chart Reviewed Final Anesthetic Review Family History of Problems with Anesthesia: No History of Problems with Anesthesia: No Documented by User: Britt Valdovinos MD 10/06/24 09:04 [facility] Past Medical History Medical History (Updated 09/30/24 @ 15:20 by Pravin Odonnell MD) Well woman exam Dysphagia Abnormal finding on EKG Hx of flexible sigmoidoscopy Internal derangement of right shoulder Lump of left breast Lump of right breast Lump of axillary tail of right breast Chronic constipation Rotator cuff impingement syndrome of left shoulder Right forearm pain Colitis Hypertensive urgency Rotator cuff impingement syndrome Lateral epicondylitis of both elbows Fall IBS (irritable bowel syndrome) Abdominal bloating Tendinopathy of left rotator cuff History of TIA (transient ischemic attack) Hypercholesterolemia Vitamin D deficiency Multinodular thyroid Pancreatic cyst Thyroid nodule Diarrhea Rectal bleeding Esophageal spasm GERD (gastroesophageal reflux disease) Hypertension Asthma Kidney stones History of migraine headaches Fibromyalgia Allergic rhinitis Sciatic nerve pain Ovarian cyst Hypothyroidism Family History Family History Father Family history of high blood pressure History of high cholesterol Mother History of diabetes mellitus Family history of high blood pressure Family history of asthma History of fibromyalgia Liver disease Maternal Grandfather Colon cancer Family/Other Breast cancer Maternal Aunt Breast cancer Family/Other Breast cancer Surgical History Surgical History (Updated 10/02/24 @ 14:48 by Daija Genao RN) History of carpal tunnel release (09/25/24) History of arthroscopic surgery of shoulder Hx of eye surgery History of breast lump/mass excision Hx of hemorrhoidectomy Hx of tubal ligation History of esophagogastroduodenoscopy (EGD) History of colonoscopy (~11/16/19) H/O: hysterectomy History of thyroidectomy (~11/2018) History of kidney surgery Hx of bilateral breast reduction surgery Hx of appendectomy History of cholecystectomy (~2003) H/O lithotripsy (04/30/24) Social History Social History Household Members: Spouse Household Members Other:: daughter Housing: Apartment Are you a primary child care center administrator to a significant other at home: No Do you presently have visiting nurse or other home services: No Alcohol intake: never Patient Tobacco Use Status: Former Tobacco user Tobacco use type: Cigarette Years Smoked: 15 e-Cigarette/Vaping Use: Never Used Second Hand Smoke Exposure: Yes Use of substances other than those prescribed or required for medical reasons: Yes Substance Use Type: Marijuana Are you DNR?: No Advance Directives: No Advance Directives Information Provided: Yes Patient : No : No Poor oral hygiene: No service: No Current occupational status: disabled Current occupation: right handed Sexual orientation: Straight/Heterosexual Gender identity: Female Cognitive needs: No Hearing needs: No Vision needs: Yes Meds Allergies Allergy/AdvReac Type Severity Reaction Status Date / Time pineapple (PINEAPPLE) Allergy Severe ANAPHYLAXIS Verified 09/22/24 08:44 adhesive tape Allergy Intermediate Blister Verified 09/22/24 08:44 Iodinated Contrast Media (IV Allergy Intermediate SOB,RASH Verified 09/22/24 08:44 Dye, Iodine Containing) levofloxacin (From Levaquin) Allergy Intermediate swelling/ra Verified 09/22/24 08:44 sh oxycodone (From Percocet) Allergy Intermediate rash/SOB Verified 09/22/24 08:44 aspirin (ASA) AdvReac Mild UPSET Verified 09/22/24 08:44 STOMACH Exam Airway Mallampati Class: III TM Dist: >3cm Neck ROM: Full Assessment and Plan Assessment Anesthesia Assessment: Anesthesia Plan Discussed Final Anesthetic Review NPO: Yes ASA Class: III Final Preanesthetic Review: No Changes in Pt Med Stat, Meds/Allgs Chart Reviewed, Consent Obtained/Reviewed and Anes Risks/Benef Reviewed Patient Risk: Intermediate Procedure Risk: Low Anesthetic Plan Anesthetic Plan: TIVA Disposition: Standard PACU
--- NOTE | 2024-10-06 07:33 | MHC.SHP ---
Pre-Procedural Eval Section A - 24 Hr Update-Section A only Date of Service: 10/06/24 The patient is an INPATIENT: No The patient has been examined within 24 hours of the surgical procedure. The History & Physical has been completed within 30 days and I have reviewed it.: No Section B - Complete if H&P > 30 days Chief Complaint: Colon cancer screening, GERD, dysphagia Relevant Family History (Specify if Yes): Yes Relevant Social History: Tobacco Use (Former smoker) Present Medications: see Short Stay Collaborative assessment Medical History: Significant History (GERD (gastroesophageal reflux disease) Hypertension Asthma Kidney stones History of migraine headaches Fibromyalgia Allergic rhinitis Sciatic nerve pain Ovarian cyst Hypothyroidism) History of Previous Operations: Relevant previous surgery/procedure and date(s) (History of carpal tunnel release (09/25/24) History of arthroscopic surgery of shoulder Hx of eye surgery History of breast lump/mass excision Hx of hemorrhoidectomy Hx of tubal ligation History of esophagogastroduodenoscopy (EGD) History of colonoscopy (~11/16/19) H/O: hysterectomy History of thyro) Allergies: Allergies Allergy/AdvReac Type Severity Reaction Status Date / Time pineapple (PINEAPPLE) Allergy Severe ANAPHYLAXIS Verified 09/22/24 08:44 adhesive tape Allergy Intermediate Blister Verified 09/22/24 08:44 Iodinated Contrast Media (IV Allergy Intermediate SOB,RASH Verified 09/22/24 08:44 Dye, Iodine Containing) levofloxacin (From Levaquin) Allergy Intermediate swelling/ra Verified 09/22/24 08:44 sh oxycodone (From Percocet) Allergy Intermediate rash/SOB Verified 09/22/24 08:44 aspirin (ASA) AdvReac Mild UPSET Verified 09/22/24 08:44 STOMACH Review of Systems Sugical H&P ROS: Negative: Constitution, Cardiovascular, Respiratory and Gastrointestinal Exam Surgical H&P Exam: Normal: Heart, Normal: Lungs, Normal: Extremities and Normal: Abdomen Plan Diagnosis/Plan: Unchanged I have reviewed the history and physical and performed a pertinent physical examination on my patient. No changes have occurred unless specified. Time Spent With Patient Time: Total time managing care of this patient today ____ minutes.
[2024-10-06 08:10] VITALS: BMI 36.9
[2024-10-06 08:12] VITALS: BP 130/95; PULSE 88; RESP 16; TEMP 36.4; O2SAT 96
[2024-10-06] MEDS: Lactated Ringers 1,000 ML 100 ML IVCONT (08:33)
--- NOTE | 2024-10-06 09:22 | P.OPN-COLO_ITS ---
Colonoscopy Operative Note Operative Note Date of Service: 10/06/24 Narrative: FLEXIBLE TRANSORAL UPPER GASTROINTESTINAL ENDOSCOPY WITH BIOPSIES AND ESOPHAGEAL BALLOON DILATION AND COLONOSCOPY TILL CECUM WITH BIOPSIES AND SNARE POLYPECTOMY Pre-op diagnosis: Surveillance for colon polyps, GERD, dysphagia Post-op diagnosis: GERD, Gastritis, Colon Polyps, Diverticulosis, hemorrhoids Endoscopist:? Sky Horton MD Anesthesia:?MAC UPPER ENDOSCOPY Consent: Indications for the procedure and potential complications of bleeding, perforation, reaction to medications and missed diagnosis were discussed with the patient and informed consent was obtained. Instrument: Olympus GIF H 190 mid size upper endoscope Monitoring: Vital signs and clinical assessment, continuous EKG monitoring, Pulse oximetry, Carbon Dioxide monitoring and blood pressure monitoring were done throughout the procedure. Procedure: The patient was placed in the left lateral decubitis position and pre-procedure medications were administered and a bite block was placed. The endoscope was inserted into the mouth and advanced under direct vision to the third part of duodenum. A careful inspection was made as the upper endoscope was withdrawn including a retroflexed examination of the proximal stomach; Findings and interventions are described below. Findings: Larynx: Normal Esophagus: GE junction at 30 cms,hiatal hernia 30 to 35 cms . Tortuous esophagus without stricture or ring. No esophagitis or Edward's. Empiric balloon dilation of LES was performed with a 20 mm CRE balloon x 60 seconds Balloon dilation of UES was performed with an 18 mm CRE balloon x 60 seconds Stomach: Moderate diffuse gastric erythema - biopsies were obtained from the gastric body and antrum. Grade 3 flap valve on retroflexed examination of the cardia. Duodenum: Normal bulb and descending duodenum Biopsies were obtained from descending duodenum to check for celiac sprue Intervention: Biopsies as noted above COLONOSCOPY PROCEDURE NOTE Instrument: Olympus PCF H 190 L variable stiffness pediatric colonoscope Monitoring: Vital signs and clinical assessment, intermittent blood pressure monitoring, continuous EKG monitoring, Pulse oximetry and Carbon Dioxide monitoring were done throughout the procedure. Please see anesthesia flowsheet. Colon withdrawl time was 22 minutes. Procedure: The patient was placed in the left lateral decubitis position and pre-procedure medications were administered. After a digital rectal examination of the ano-rectum, the video colonoscope was inserted into the rectum and advanced through the colon to the cecum. The colonoscope was slowly withdrawn in a retrograde panoramic fashion and the colon mucosa was carefully examined including a retroflexed view of the rectum. Findings and interventions are described below. Procedure Difficulty: without difficulty Findings: Terminal Ileum: Not evaluated Cecum: Normal Ascending Colon: Normal Transverse Colon: A 4-5 mm sessile polyp -removed with a cold snare. Residual polyp was removed with a cold biopsy Descending Colon: Normal Sigmoid Colon: Two 3-5 mm sessile polyps - removed with a cold snare. Moderate diverticulosis Rectum: Normal Ano-rectum: Moderate internal hemorrhoids and hypertrophied anal papillae Colon preparation: Good after copious irrigation. [place] Bowel Preparation Scale Right colon; 2 Transverse colon: 2 Left colon; 2 (0 = Unprepared colon segment with mucosa not seen due to solid stool that cannot be cleared. 1 = Portion of mucosa of the colon segment seen, but other areas of the colon segment not well seen due to staining, residual stool and/or opaque liquid. 2 = Minor amount of residual staining, small fragments of stool and/or opaque liquid, but mucosa of colon segment seen well. 3 = Entire mucosa of colon segment seen well with no residual staining, small fragments of stool or opaque liquid) Impression and Post Procedure Diagnosis: Endoscopy Findings: ESOPHAGUS: Hiatal hernia, tortuous esophagus without stricture or ring. No esophagitis or Edward's. Empiric balloon dilation of LES to 20 mm (60 F) with a CRE balloon Balloon dilation of UES to 18 mm (54 F) with a CRE balloon STOMACH: Diffuse gastritis DUODENUM: Normal - biopsies obtained to check for celiac sprue Colonoscopy Findings: Three small polyps were removed Random biopsies were obtained from right and left colon to check for microscopic colitis. Moderate diverticulosis seen in the sigmoid colon Moderate hemorrhoids on retroflexed exam. Plan: Pt has a FU appointment on 10/30/[address] Horton Repeat Colonoscopy in 3-5 years if polyps are adenomatous and 10 year if polyps are hyperplastic. A summary of above findings and relevant handouts were given to the patient. BIOPSIES SHOWED: A. Small bowel, biopsy: Small bowel mucosa within normal limits; preserved villous architecture and no increased intraepithelial lymphocytes seen. B. Stomach, antrum, biopsy: Gastric antral mucosa with reactive gastropathy and patchy mild chronic inflammation; negative for Helicobacter pylori, intestinal metaplasia and dysplasia. C. Stomach, body, biopsy: Gastric body mucosa within normal limits; negative for Helicobacter pylori, intestinal metaplasia and dysplasia. D. Colon, right, biopsy: Colonic mucosa within normal limits; negative for active, chronic or microscopic colitis. E. Colon, transverse, polypectomy: Clinically polypoid colonic mucosa noted; negative for a hyperplastic or neoplastic process. F. Colon, left, biopsy: Colonic mucosa within normal limits; negative for active, chronic or microscopic colitis. G. Colon, sigmoid, polypectomy x2: Tubular adenoma (2); negative for high-grade dysplasia Pt placed on the colonoscopy recall list for repeat colonoscopy in 5 years.
[2024-10-06 10:20] VITALS: BP 126/81; PULSE 92; RESP 18; TEMP 36.1; O2SAT 97
[2024-10-06 10:35] VITALS: BP 176/108; PULSE 89; RESP 20; O2SAT 97
[2024-10-06 10:46] VITALS: BP 171/11; PULSE 82; RESP 18; TEMP 36.6; O2SAT 96
== END 2024-10-06 11:24 | disposition home or self-care (01) ==
PROVIDERS: PCP Physician Assistant; Visit Provider Internal Medicine Gastroenterology
PROC: (CPT 45385; principal; 2024-10-06 09:20)
DX: Z12.11 Encounter for screening for malignant neoplasm of colon (principal); Z86.0101 Personal history of adenomatous and serrated colon polyps; D12.5 Benign neoplasm of sigmoid colon; K63.5 Polyp of colon; K57.30 Diverticulosis of large intestine without perforation or abscess without bleeding; K64.8 Other hemorrhoids; K62.89 Other specified diseases of anus and rectum; R14.0 Abdominal distension (gaseous); K59.09 Other constipation; K52.9 Noninfective gastroenteritis and colitis, unspecified; K63.8219 Small intestinal bacterial overgrowth, unspecified; R13.10 Dysphagia, unspecified; K21.9 Gastro-esophageal reflux disease without esophagitis; K22.89 Other specified disease of esophagus; K22.4 Dyskinesia of esophagus; K29.50 Unspecified chronic gastritis without bleeding; K44.9 Diaphragmatic hernia without obstruction or gangrene; K86.2 Cyst of pancreas; I16.0 Hypertensive urgency; I10 Essential (primary) hypertension; J45.51 Severe persistent asthma with (acute) exacerbation; Z91.09 Other allergy status, other than to drugs and biological substances; M79.7 Fibromyalgia; E89.0 Postprocedural hypothyroidism; Z87.442 Personal history of urinary calculi; G43.909 Migraine, unspecified, not intractable, without status migrainosus; G47.33 Obstructive sleep apnea (adult) (pediatric); Z79.51 Long term (current) use of inhaled steroids; Z79.899 Other long term (current) drug therapy; Z88.1 Allergy status to other antibiotic agents; Z88.5 Allergy status to narcotic agent; L23.1 Allergic contact dermatitis due to adhesives; Z91.041 Radiographic dye allergy status; Z90.49 Acquired absence of other specified parts of digestive tract; Z88.6 Allergy status to analgesic agent; Z98.890 Other specified postprocedural states; Z87.891 Personal history of nicotine dependence
CPT/HCPCS: 45385; 45380; 43249; 43239; 88305; 88313; 88342; C1726; J2003; J2704

== ENCOUNTER → 2024-10-06 07:43 | Outpatient (BNV) | payer OTHER, SELFPAY | PROVIDERS: PCP Physician Assistant; Visit Provider Internal Medicine Gastroenterology | DX: Z12.11 Encounter for screening for malignant neoplasm of colon (principal); K63.5 Polyp of colon; K57.90 Diverticulosis of intestine, part unspecified, without perforation or abscess without bleeding; K64.9 Unspecified hemorrhoids; K22.89 Other specified disease of esophagus; K21.9 Gastro-esophageal reflux disease without esophagitis; K29.70 Gastritis, unspecified, without bleeding | CPT/HCPCS: 43239; 43249; 45385 ==

== ENCOUNTER 2024-10-08 08:25 | Outpatient (AMB) | payer OTHER, SELFPAY ==
[2024-10-08 08:30] VITALS: BMI 36.8
--- NOTE | 2024-10-08 08:30 | MHC.OFFVIS ---
Vital Signs 10/08/24 08:30 Height 5 ft 5 in Weight 221 lb BMI 36.8 Intake Visit Reasons: PO-Rt CTR 09/25/24 Intake Note: Gloria is a 54 year old right hand dominant female who presents today for their first post-operative visit status post right carpel tunnel release DOS: 09/25/24, by Dr. Castanon. Patient reports she continues having some numbness and tingling. She is taking Ibuprofen as needed. Sutures removed and steri strips applied. Allergies pineapple (PINEAPPLE) Allergy (Severe, Verified 10/08/24 08:30) ANAPHYLAXIS adhesive tape Allergy (Intermediate, Verified 10/08/24 08:30) Blister Iodinated Contrast Media (IV Dye, Iodine Containing) Allergy (Intermediate, Verified 10/08/24 08:30) SOB,RASH levofloxacin (From Levaquin) Allergy (Intermediate, Verified 10/08/24 08:30) swelling/rash oxycodone (From Percocet) Allergy (Intermediate, Verified 10/08/24 08:30) rash/SOB aspirin (ASA) Adverse Reaction (Mild, Verified 10/08/24 08:30) UPSET STOMACH HPI HPI PO-Rt CTR 09/25/24: Details: Gloria is a 54 year old right hand dominant female who presents today for their first post-operative visit status post right carpel tunnel release DOS: 09/25/24, by Dr. Castanon. Patient reports she continues having some numbness and tingling, but this has improved significantly from previous evaluation. She is taking Ibuprofen as needed. Sutures removed and steri strips applied. [facility] Medical History (Updated 09/30/24 @ 15:20 by Pravin Odonnell MD) Well woman exam Dysphagia Abnormal finding on EKG Hx of flexible sigmoidoscopy Internal derangement of right shoulder Lump of left breast Lump of right breast Lump of axillary tail of right breast Chronic constipation Rotator cuff impingement syndrome of left shoulder Right forearm pain Colitis Hypertensive urgency Rotator cuff impingement syndrome Lateral epicondylitis of both elbows Fall IBS (irritable bowel syndrome) Abdominal bloating Tendinopathy of left rotator cuff History of TIA (transient ischemic attack) Hypercholesterolemia Vitamin D deficiency Multinodular thyroid Pancreatic cyst Thyroid nodule Diarrhea Rectal bleeding Esophageal spasm GERD (gastroesophageal reflux disease) Hypertension Asthma Kidney stones History of migraine headaches Fibromyalgia Allergic rhinitis Sciatic nerve pain Ovarian cyst Hypothyroidism Surgical History (Updated 10/07/24 @ 15:45 by Pat Jeffery) History of carpal tunnel release (09/25/24) History of arthroscopic surgery of shoulder Hx of eye surgery History of breast lump/mass excision Hx of hemorrhoidectomy Hx of tubal ligation History of esophagogastroduodenoscopy (EGD) History of colonoscopy (~11/16/19) H/O: hysterectomy History of thyroidectomy (~11/2018) History of kidney surgery Hx of bilateral breast reduction surgery Hx of appendectomy History of cholecystectomy (~2003) H/O lithotripsy (04/30/24) Family History Father Family history of high blood pressure History of high cholesterol Mother History of diabetes mellitus Family history of high blood pressure Family history of asthma History of fibromyalgia Liver disease Maternal Grandfather Colon cancer Family/Other Breast cancer Maternal Aunt Breast cancer Family/Other Breast cancer Social History Household Members: Spouse Household Members Other:: daughter Housing: Apartment Are you a primary care advocate to a significant other at home: No Do you presently have visiting nurse or other home services: No Alcohol intake: never Patient Tobacco Use Status: Former Tobacco user Tobacco use type: Cigarette Years Smoked: 15 e-Cigarette/Vaping Use: Never Used Second Hand Smoke Exposure: Yes Substance Use Type: Marijuana service: No Current occupational status: disabled Current occupation: right handed Sexual orientation: Straight/Heterosexual Gender identity: Female Cognitive needs: No Hearing needs: No Vision needs: Yes Female Reproductive History Menstrual Age of Menarche: 10 Review of Systems Const All systems reviewed & are unremarkable except as noted in HPI and below Physical Exam Vital Signs: BMI result Body Mass Index 36.8 Extrem Other: Neuro: Decreased sensation in the median nerve distribution of the right hand. Normal sensation to all other digits in the right hand today. Normal sensation in the tips of all digits of the left hand today. No thenar or intrinsic wasting. Good APB muscle firing and good finger cross. Vascular: Capillary refill brisk. ROM: Patient can make a fist and extend all their digits. Skin: Well approximated and well healing incision site noted on the volar right wrist No lacerations or abrasions noted. General: No ecchymosis. No erythema or evidence of infection. Assessment & Plan Assessment & Plan (1) Right carpal tunnel syndrome: Code(s): G56.01 - Carpal tunnel syndrome, right upper limb Category: Medical Plan 1. Status post right carpal tunnel release DOS 09/25/2024 Patient appears to be recovering very well postoperatively Patient is educated about the typical recovery course At this time, incision appears to be healing quite well, no signs of active or ongoing infection Patient is educated that it can take approximately 9 months for full sensation to return to the right hand after surgery Patient understands this is amenable to this plan Follow-up as needed Coding Level of Care Code Global (62811) Diagnoses Right carpal tunnel syndrome G56.01
--- OUTSIDE RECORDS SUMMARY | 2024-10-08 08:36 | XMS_ITS | Clinical Summary ---
Author Organization [facility] Address [address] [place] [phone] Phone Care Team Providers Care Cocoa Room Operator Name Role Phone Unavailable Primary Care Provider [...] It is not the complete legal health record.[facility]
--- OUTSIDE RECORDS SUMMARY | 2024-10-08 08:36 | XMS_ITS | Clinical Summary ---
Author Organization [facility] Facility Address [address] [place] [address], [place] [address] Care Team Providers Care Box Car Bracer Name Role Phone Naomi Bains MD Primary [...] 2024 [facility] [id number] [facility] Medicaid [facility] Medicaid Care Teams Box Car Bracer Relationship Specialty Start Date End Date Naomi Bains MD [address] [place] [phone] PCP - General 03/08/20
== END 2024-10-08 09:00 | disposition home or self-care (01) ==
LOC: HO.HOS 08:26
PROVIDERS: PCP Physician Assistant
DX: G56.01 Carpal tunnel syndrome, right upper limb (principal)
CPT/HCPCS: 99024

== ENCOUNTER → 2024-10-08 08:25 | Outpatient (BNVA) | payer OTHER, SELFPAY | PROVIDERS: PCP Physician Assistant | DX: G56.01 Carpal tunnel syndrome, right upper limb (principal); Z98.890 Other specified postprocedural states | CPT/HCPCS: 99212 ==

== ENCOUNTER 2024-10-29 09:00 | Day surgery (SDC) | payer OTHER, SELFPAY ==
[2024-10-23 13:18] VITALS: BMI 38.1
--- NOTE | 2024-10-24 08:08 | P.CONAN_ITS ---
Documented by User: Cristy Gunderson NP 10/28/24 09:16 HPI - Anesthesia Eval Consult details Narrative: 54yo F for Left Breast Lumpectomy s/p EGD and colo 09/2024 with TIVA Medically and pulmo optimized Follows [facility] Cardiology for palps and unspecified visual disturbance - all testi ng negative as below PMFSH Active Problems Active Problems: All Active Problems Preop pulmonary/respiratory exam (Acute) Right carpal tunnel syndrome (Acute) Hydronephrosis, right (Acute) Eustachian tube dysfunction (Acute) JULISA (obstructive sleep apnea) (Acute) Breast lump on left side at 3 o'clock position (Acute) Blurred vision, bilateral (Acute) Nausea (Acute) Easy bruisability (Acute) Injury of left great toe (Acute) Severe persistent asthma (Acute) Nasal abrasion (Acute) MDD (major depressive disorder), recurrent episode, moderate (Acute) Eustachian tube disorder (Acute) Ear congestion (Acute) Numbness and tingling in both hands (Acute) Arthritis of carpometacarpal (CMC) joint of left thumb (Acute) De Quervain's tenosynovitis, left (Acute) Preop cardiovascular exam (Acute) Alteration in vision (Acute) Palpitations (Acute) Thumb tendonitis (Acute) MGUS (monoclonal gammopathy of unknown significance) (Acute) Hand pain (Acute) Precordial chest pain (Acute) Elevated immunoglobulin A (Acute) Hyper-IgE syndrome (Acute) Acute diarrhea (Acute) Small intestinal bacterial overgrowth (Acute) Encounter for preoperative pulmonary examination (Acute) 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 (Acute) Chronic diarrhea (Acute) Pelvic pain (Acute) Breast lump on left side at 1 o'clock position (Acute) Chest pain (Acute) Bilateral renal stones (Acute) Acute pancreatitis (Acute) Elevated lipase (Acute) Abdominal pain (Acute) PND (paroxysmal nocturnal dyspnea) (Acute) Right elbow pain (Acute) Migraine (Acute) Skin candidiasis (Acute) Pruritic rash (Acute) Intermittent constipation (Acute) Lichen simplex chronicus (Acute) Obesity (Acute) GERD (gastroesophageal reflux disease) (Acute) Vulvar lesion (Acute) Irritable bowel syndrome (Acute) Post-surgical hypothyroidism (Acute) History of repair of right rotator cuff (Acute) Environmental allergies (Acute) Depression (Acute) Adhesive capsulitis of left shoulder (Acute) Well woman exam (Acute) Complete rotator cuff tear or rupture of right shoulder, not specified as traumatic (Acute) Esophageal spasm (Acute) Hypothyroidism (Acute) History of TIA (transient ischemic attack) (Acute) Kidney stones (Acute) Hypercholesterolemia (Acute) Vitamin D deficiency (Acute) Pancreatic cyst (Acute) Hypertension (Acute) Asthma (Acute) Fibromyalgia (Acute) Past Medical History Medical History Migraines Dysphagia Hx of flexible sigmoidoscopy Internal derangement of right shoulder Lump of left breast Chronic constipation Rotator cuff impingement syndrome of left shoulder Colitis Rotator cuff impingement syndrome Lateral epicondylitis of both elbows IBS (irritable bowel syndrome) Tendinopathy of left rotator cuff History of TIA (transient ischemic attack) Hypercholesterolemia Vitamin D deficiency Multinodular thyroid Pancreatic cyst Thyroid nodule GERD (gastroesophageal reflux disease) Hypertension Asthma Kidney stones Fibromyalgia Allergic rhinitis Sciatic nerve pain Ovarian cyst Hypothyroidism Family History Family History Father Family history of high blood pressure History of high cholesterol Mother History of diabetes mellitus Family history of high blood pressure Family history of asthma History of fibromyalgia Liver disease Maternal Grandfather Colon cancer Family/Other Breast cancer Maternal Aunt Breast cancer Family/Other Breast cancer Family history of problems with anesthesia: No Surgical History Surgical History History of carpal tunnel release (09/25/24) History of arthroscopic surgery of shoulder Hx of eye surgery History of breast lump/mass excision Hx of hemorrhoidectomy Hx of tubal ligation History of esophagogastroduodenoscopy (EGD) History of colonoscopy (~11/16/19) H/O: hysterectomy History of thyroidectomy (~11/2018) History of kidney surgery Hx of bilateral breast reduction surgery Hx of appendectomy History of cholecystectomy (~2003) H/O lithotripsy (04/30/24) History of Problems with Anesthesia: No Social History Social History Household Members: Spouse Household Members Other:: daughter Housing: Apartment Are you a primary animal caretaker supervisor to a significant other at home: No Do you presently have visiting nurse or other home services: No Alcohol intake: never Patient Tobacco Use Status: Former Tobacco user Tobacco use type: Cigarette Years Smoked: 15 e-Cigarette/Vaping Use: Never Used Second Hand Smoke Exposure: Yes Use of substances other than those prescribed or required for medical reasons: No Substance Use Type: Marijuana Have you been hit, kicked, punched, or otherwise hurt by someone within the past year? If so, by whom?: No Spiritual Healthcare Practices: no Cheondoism Healthcare Practices: no Cultural Healthcare Practices: no Are you DNR?: No Advance Directives on File: No FDLMP: n/a Poor oral hygiene: No service: No Current occupational status: disabled Current occupation: right handed Sexual orientation: Straight/Heterosexual Gender identity: Female Cognitive needs: No Hearing needs: No Vision needs: Yes Meds Allergies Allergy/AdvReac Type Severity Reaction Status Date / Time pineapple (PINEAPPLE) Allergy Severe ANAPHYLAXIS Verified 10/29/24 09:37 adhesive tape Allergy Intermediate Blister Verified 10/29/24 09:37 Iodinated Contrast Media (IV Allergy Intermediate SOB,RASH Verified 10/29/24 09:37 Dye, Iodine Containing) levofloxacin (From Levaquin) Allergy Intermediate swelling/ra Verified 10/29/24 09:37 sh oxycodone (From Percocet) Allergy Intermediate rash/SOB Verified 10/29/24 09:37 aspirin (ASA) AdvReac Mild UPSET Verified 10/29/24 09:37 STOMACH Exam Height,Weight and Vital Signs: Height 5 ft 5 in Weight 103.873 kg Pertinent Lab Results Pertinent Lab Results: Laboratory Tests 06/24/24 09:03 WBC 8.0 Hgb 13.7 Hct 40.5 Plt Count 282 Sodium 140 Potassium 3.9 Chloride 107 Carbon Dioxide 24 BUN 16 Creatinine 0.64 Narrative Narrative: EKG 01/2024 NSR @ 76 Low volt QRS Echocardiogram done 09/11/2023 showing EF 60-65%, mild LVH, impaired relaxation, no valve abnormalities. Exercise stress echocardiogram done 11/06/2023 with exercise 6 minutes, report of mild chest tightness, no EKG or echo evidence of ischemia. carotid ultrasound was done on 11/26/2023 showing normal right ICA, minimal, non hemodynamically significant stenosis of the proximal left ICA, 0-49% stenosis. CTA of the head and neck was done 02/19/2024 showing no acute abnormalities Holter 02/2024 Conclusion: 1. Baseline rhythm is normal sinus rhythm with no significant pauses 2. No significant arrhythmias noted 3. Frequent sinus tachycardia noted with 42% of time heart rate about 100 beats per minute 4. Patient reported multiple events with symptoms of chest pressure, lightheadedness correlating with sinus tachycardia Assessment and Plan Assessment Anesthesia Assessment: Chart Reviewed Final Anesthetic Review Family History of Problems with Anesthesia: No History of Problems with Anesthesia: No Documented by User: May Cardona MD 10/29/24 10:59 [facility] Past Medical History Medical History Migraines Dysphagia Hx of flexible sigmoidoscopy Internal derangement of right shoulder Lump of left breast Chronic constipation Rotator cuff impingement syndrome of left shoulder Colitis Rotator cuff impingement syndrome Lateral epicondylitis of both elbows IBS (irritable bowel syndrome) Tendinopathy of left rotator cuff History of TIA (transient ischemic attack) Hypercholesterolemia Vitamin D deficiency Multinodular thyroid Pancreatic cyst Thyroid nodule GERD (gastroesophageal reflux disease) Hypertension Asthma Kidney stones Fibromyalgia Allergic rhinitis Sciatic nerve pain Ovarian cyst Hypothyroidism Family History Family History Father Family history of high blood pressure History of high cholesterol Mother History of diabetes mellitus Family history of high blood pressure Family history of asthma History of fibromyalgia Liver disease Maternal Grandfather Colon cancer Family/Other Breast cancer Maternal Aunt Breast cancer Family/Other Breast cancer Surgical History Surgical History History of carpal tunnel release (09/25/24) History of arthroscopic surgery of shoulder Hx of eye surgery History of breast lump/mass excision Hx of hemorrhoidectomy Hx of tubal ligation History of esophagogastroduodenoscopy (EGD) History of colonoscopy (~11/16/19) H/O: hysterectomy History of thyroidectomy (~11/2018) History of kidney surgery Hx of bilateral breast reduction surgery Hx of appendectomy History of cholecystectomy (~2003) H/O lithotripsy (04/30/24) Social History Social History Household Members: Spouse Household Members Other:: daughter Housing: Apartment Are you a primary animal caretaker supervisor to a significant other at home: No Do you presently have visiting nurse or other home services: No Alcohol intake: never Patient Tobacco Use Status: Former Tobacco user Tobacco use type: Cigarette Years Smoked: 15 e-Cigarette/Vaping Use: Never Used Second Hand Smoke Exposure: Yes Use of substances other than those prescribed or required for medical reasons: No Substance Use Type: Marijuana Have you been hit, kicked, punched, or otherwise hurt by someone within the past year? If so, by whom?: No Spiritual Healthcare Practices: no Cheondoism Healthcare Practices: no Cultural Healthcare Practices: no Are you DNR?: No Advance Directives on File: No FDLMP: n/a Poor oral hygiene: No service: No Current occupational status: disabled Current occupation: right handed Sexual orientation: Straight/Heterosexual Gender identity: Female Cognitive needs: No Hearing needs: No Vision needs: Yes Meds Allergies Allergy/AdvReac Type Severity Reaction Status Date / Time pineapple (PINEAPPLE) Allergy Severe ANAPHYLAXIS Verified 10/29/24 09:37 adhesive tape Allergy Intermediate Blister Verified 10/29/24 09:37 Iodinated Contrast Media (IV Allergy Intermediate SOB,RASH Verified 10/29/24 09:37 Dye, Iodine Containing) levofloxacin (From Levaquin) Allergy Intermediate swelling/ra Verified 10/29/24 09:37 sh oxycodone (From Percocet) Allergy Intermediate rash/SOB Verified 10/29/24 09:37 aspirin (ASA) AdvReac Mild UPSET Verified 10/29/24 09:37 STOMACH Exam Airway Mallampati Class: II TM Dist: >3cm Heart: rrr Lungs: cta Assessment and Plan Assessment Anesthesia Assessment: Anesthesia Plan Discussed Final Anesthetic Review NPO: Yes ASA Class: III Final Preanesthetic Review: No Changes in Pt Med Stat, Meds/Allgs Chart Reviewed, Consent Obtained/Reviewed and Anes Risks/Benef Reviewed Patient Risk: Intermediate Procedure Risk: Intermediate Anesthetic Plan Anesthetic Plan: GA and Agree w/ Assess. and Plan Disposition: Standard PACU
[2024-10-29] VITALS (13 sets, daily range): BP systolic 130–164; BP diastolic 85–110; PULSE 56–80; RESP 16–22; TEMP 36.6–36.8; O2SAT 93–97; BMI 37.5
[2024-10-29] MEDS: Lactated Ringers 1,000 ML 100 ML IVCONT (09:35)
--- NOTE | 2024-10-29 10:33 | PC.NURSE ---
dr. steward aware of bp results and that patient took all of her cardiac medications. okay to proceed. no interventions at this time.
--- NOTE | 2024-10-29 10:49 | P.HPSUR_ITS ---
Pre-Procedural Eval Section A - 24 Hr Update-Section A only Date of Service: 10/29/24 The patient is an INPATIENT: No Changes since office visit: Yes Patient answered all questions; No Cold of Flu in the past 2 weeks, No New Medical Problems and No Changes in Medication The patient has been examined within 24 hours of the surgical procedure. The History & Physical has been completed within 30 days and I have reviewed it.: No Section B - Complete if H&P > 30 days Chief Complaint: Unspecified lump in the left breast, overlapping Details of Present Illness: No change in symptoms, continues to feel a lump in the upper outer quadrant left breast Relevant Family History (Specify if Yes): No Relevant Social History: None Present Medications: see Short Stay Collaborative assessment Medical History: No relevant PMH History of Previous Operations: No relevant previous surgery Allergies: Allergies Allergy/AdvReac Type Severity Reaction Status Date / Time pineapple (PINEAPPLE) Allergy Severe ANAPHYLAXIS Verified 10/29/24 09:37 adhesive tape Allergy Intermediate Blister Verified 10/29/24 09:37 Iodinated Contrast Media (IV Allergy Intermediate SOB,RASH Verified 10/29/24 09:37 Dye, Iodine Containing) levofloxacin (From Levaquin) Allergy Intermediate swelling/ra Verified 10/29/24 09:37 sh oxycodone (From Percocet) Allergy Intermediate rash/SOB Verified 10/29/24 09:37 aspirin (ASA) AdvReac Mild UPSET Verified 10/29/24 09:37 STOMACH Review of Systems Sugical H&P ROS: Negative: Constitution, Cardiovascular, Respiratory, Neurologic al, Psychiatric, Hem-Onc, Allergic/Immunologic, Gastrointestinal, Genitourinary, Musculoskeletal and Integumentary Exam Surgical H&P Exam: Normal: HEENT, Normal: Heart, Normal: Lungs, Normal: Extremities, Normal: Abdomen and Normal: Skin Plan Diagnosis/Plan: Unchanged I have reviewed the history and physical and performed a pertinent physical examination on my patient. No changes have occurred unless specified. Time Spent With Patient Time: Total time managing care of this patient today ____ minutes.
--- NOTE | 2024-10-29 12:02 | P.OP_ITS ---
Operative Note Operative Note Date of Service: 10/29/24 Narrative: Preoperative diagnosis: Left breast lump Postoperative diagnosis: Same Procedure: Left breast lumpectomy Surgeon: Jeffrey Raines MD Telephone Operator Chief: Duke Barnes PA-C, Ophelia Casey MS-3 Anesthesia: General LMA Indications for procedure: 54-year-old female patient presenting with a persistently palpable lump in the left breast at the upper outer quadrant, 02:00 which appears to have increased in size. Workup with mammogram and ultrasound reveal a complicated cyst or solid density not significantly changed from prior studies felt to be a benign finding (BI-RADS 2). The patient has requested excision of this lesion. Operative findings: Fibrocystic tissue with multiple small cysts noted in the upper outer quadrant left breast at approximately 02:00 Specimen: Left breast lumpectomy Estimated blood loss: Less than 2 mL Complications: None Procedure details: Patient was brought to the OR and placed in a supine position. After administering general anesthesia the patient's left breast was prepped with ChloraPrep and draped in a sterile fashion. A surgical time-out was called the consent confirmed. Patient received preoperative antibiotics and Venodyne boots were in place. Local anesthesia consisting of 0.5% Sensorcaine and lidocaine was infiltrated over the palpable mass in a curvilinear fashion. Incision was then carried down through subcutaneous tissue. Superior and inferior skin flaps were then created using electrocautery. A core of tissue around the palpable mass was then excised down to chest wall. The lesion was completely excised and sent to pathology for further examination. Hemostasis was assured using electrocautery. Deep breast tissue was reapproximated using interrupted 3-0 Polysorb sutures. Superficial breast tissue and dermis were then reapproximated using interrupted 3-0 Polysorb sutures. Skin was closed using a running subcuticular 4-0 Polysorb suture. Steri-Strips, 4 x 4 gauze and Tegaderm were then applied. The patient tolerated the procedure well. Sponge, instrument, and needle counts reported as correct. The patient was transferred to PACU in stable condition.
== END 2024-10-29 13:50 | disposition home or self-care (01) ==
PROVIDERS: PCP Physician Assistant; Visit Provider Surgery
PROC: (CPT 19301; principal; 2024-10-29 10:30)
DX: N63.21 Unspecified lump in the left breast, upper outer quadrant (principal); N60.92 Unspecified benign mammary dysplasia of left breast; N60.12 Diffuse cystic mastopathy of left breast; N83.209 Unspecified ovarian cyst, unspecified side; I10 Essential (primary) hypertension; Z86.73 Personal history of transient ischemic attack (TIA), and cerebral infarction without residual deficits; M79.7 Fibromyalgia; E78.00 Pure hypercholesterolemia, unspecified; J45.51 Severe persistent asthma with (acute) exacerbation; G47.33 Obstructive sleep apnea (adult) (pediatric); E04.2 Nontoxic multinodular goiter; E55.9 Vitamin D deficiency, unspecified; K21.9 Gastro-esophageal reflux disease without esophagitis; K86.2 Cyst of pancreas; Z87.442 Personal history of urinary calculi; Z79.899 Other long term (current) drug therapy; L23.1 Allergic contact dermatitis due to adhesives; Z91.041 Radiographic dye allergy status; Z88.1 Allergy status to other antibiotic agents; Z88.5 Allergy status to narcotic agent; Z88.6 Allergy status to analgesic agent; Z98.890 Other specified postprocedural states; Z87.891 Personal history of nicotine dependence
CPT/HCPCS: 19301; 88307; 88341; 88342; J0690; J1100; J1171; J2003; J2250; J2405; J2704; J3010

== ENCOUNTER → 2024-10-29 09:00 | Outpatient (BNV) | payer OTHER, SELFPAY | PROVIDERS: PCP Physician Assistant; Visit Provider Surgery | DX: N63.21 Unspecified lump in the left breast, upper outer quadrant (principal) | CPT/HCPCS: 19301 ==

== ENCOUNTER 2024-10-30 08:28 | Outpatient (AMB) | payer OTHER, SELFPAY ==
--- NOTE | 2024-10-30 08:36 | A.OFFVIS_ITS ---
Vital Signs 10/30/24 08:39 Height 5 ft 5 in Weight 224 lb 13.944 oz BMI 37.4 BP 132/81 Blood Pressure Location Lt brachial Position Sitting Pulse 79 Pulse Oximetry (%) 98 Oxygen Delivery Method Room Air Intake Visit Reasons: s/p double Intake Note: Patient post op follow up/ no fecal or lab results. Patient cc: diarrhea, abdominal pain, swallowing difficulties and mild acid reflux. Agency Sales Development Associate Required: No Accompanied by: Self / Same As Patient Allergies pineapple (PINEAPPLE) Allergy (Severe, Verified 01/09/25 07:34) ANAPHYLAXIS adhesive tape Allergy (Intermediate, Verified 01/09/25 07:34) Blister Iodinated Contrast Media (IV Dye, Iodine Containing) Allergy (Intermediate, Verified 01/09/25 07:34) SOB,RASH levofloxacin (From Levaquin) Allergy (Intermediate, Verified 01/09/25 07:34) swelling/rash oxycodone (From Percocet) Allergy (Intermediate, Verified 01/09/25 07:34) rash/SOB aspirin (ASA) Adverse Reaction (Mild, Verified 01/09/25 07:34) UPSET STOMACH Medication List - Last Reconciled 10/30/24 by Sky Horton MD acetaminophen-codeine 300-30 mg 1 tab PO Q6H PRN amlodipine 10 mg PO DAILY atorvastatin (Lipitor) 10 mg PO DAILY budesonide-formoterol 160-4.5 mcg/actuation (Symbicort) 2 puffs inhalation BID cholecalciferol (vitamin D3) (Vitamin D3) 50 mcg PO DAILY diclofenac sodium 50 mg PO DAILY 30 days diphenhydramine HCl (Benadryl Allergy) 25 mg orally one tablet this evening and one tablet tomorrow am; docusate sodium 100 mg PO BID famotidine 20 mg PO BEDTIME PRN hydrochlorothiazide 25 mg PO DAILY ipratropium bromide 2 sprays intranasal TID 30 days ipratropium-albuterol 0.5 mg-3 mg(2.5 mg base)/3 mL 3 mL inhalation Q4-6H PRN levothyroxine (Tirosint) 200 mcg PO DAILY lisinopril 40 mg PO DAILY 90 days lorazepam 1 mg PO ONCE PRN metoprolol tartrate 100 mg PO BID 90 days mupirocin 2% 1 appl topical BID 30 days omalizumab (Xolair) 300 mg (2 mL) subcut Q2W omeprazole 40 mg (2 x 20 mg) PO DAILY ondansetron 4 mg PO Q8H PRN 30 days pyridoxine (vitamin B6) 100 mg PO DAILY tamsulosin (Flomax) 0.4 mg PO BEDTIME tramadol 50 mg PO Q8H PRN Ventolin HFA 90 mcg/actuation (albuterol sulfate) 2 puffs inhalation Q4-6H PRN 30 days NS vonoprazan (Voquezna) 20 mg PO DAILY 8 weeks HPI HPI s/p double: Details: GI Clinic visit for this 54-year-old female for evaluation of diarrhea and abdominal bloating Pt had severe watery diarrhea which lasted for several weeks after her thyroid surgery. Pt was seen at [facility] on 12/18/22 with worsening abd pain and labs showed an elevated lipase of 118 TODAY'S VISIT: Patient cc: Patient cc: diarrhea, abdominal pain, swallowing difficulties and mild acid reflux. EGD and colon results were reviewed. Notes stabbing pains in the throat and upper abdomen simultaneously since she had the EGD, Notes hoarseness Has to use the bathroom 15 or 20 min after eating. Has HAs during a BM and feels dizzy and BROWNE lasts 2-3 hours Has diarrhea alternating with constipation alternating with mushy stools. Has diarrhea 50% of the time and constipation 50% of the time. Notes LUQ (stabbing and burning) with a visible lump - not related to eating Pain improves with SL hyoscyamine. Notes HB in the am - has to take her thyroid medication first and wait 2 hrs and then takes the rest of her medication. Complains of dysphagia to solids and liquids and even her saliva. PAST VISITS: Having BROWNE - gets pounding HAs when she has acid reflux. Had a 30 day heart monitor. Lost her paternal aunt a month ago - (had a stroke and a heart attack last year and was bedridden). Also had stomach issues and a feeding tube) Pt is not feeling well for the past year. Has bad diarrhea 4 - 5 times - watery stool followed by soft stool and then watery stool again. Takes Gatorade and pedialyte. Had abd pain after she had ketchup. Has nasty burps and whole mouth barajas when they come up. Taking Omeprazole twice a day for GERD Epigastric pain radiating to LUQ and back. PAST VISITS: EGD and colon results were reviewed. Not feeling good - stomach has been hurting more and more. Continues to have diarrhea 5-6 times a day - has diarrhea when she goes to pee Every time she eats, she has to go to the bathroom Noted difficulty swallowing while drinking a smoothie. Poop is sarah - coffee grain material in the poop on toilet paper - green Had a lot of pain that day. Has gained weight - attributes to thyroid issues. Has to see the nurse every 2 weeks to have her blood pressure checked. PAST VISITS: Not good, stomach hurts, intermittent watery diarrhea which is yellow in color Watery diarrhea for a few days and then constipation Has diarrhea 4 days per week (5 times a day) and constipation for the rest of the week Has not had a normal BM in the past several months Takes soups when she has the diarrhea and avoids taking solids. Continues to have constant nausea, bloating and burping. PAST VISITS: Denies any change in symptoms Constantly burping associated with regurgitation of liquids and feels like she is drowning Taking Omeprazole and is working a little bit. Hardly eat since has nausea and abdominal pain when she eats Horrible nausea Has diarrhea alternating with constipation. Denies having a normal BM in years Unable to sleep at night due to regurgitation. Sleeping side ways with the pillow elevated. Patient cc: abdominal pain/bloating, GERD with burning sensation,between diarrhea and constipation, water is coming with burps and she can not breath when that happened to her, also she is not eating well due the abdominal pain/loosing weight. Nauseas and Vomit, acid reflex with burning sensation and some swallowing problems Loosing weight too fast, loosing hair, cant keep anything in her stomach. Unable to eat without vomiting or diarrhea. Constant abdominal pain. Has diarrhea alternating with constipation. No BM x 3 days Advised GFD. Pt states she tried a GFD in the past ? for 1-2 years and willing to try it again LABS [facility] 11/15 REVIEWED. ? Stool studies were negative for C Diff, calprotectin was normal and stool fat was elevated ? Stool electrolytes could not be performed since stool was formed ? Serum gastrin was elevated and normal on repeat testing after holding Omeprazole. ?IMAGING STUDIES: 03/16/22 BARIUM SWALLOW SHOWED: -Spontaneous gastroesophageal reflux to the level mid thoracicesophagus. -Bridging anterior osteophytes mid to lower cervical spine. Swellingfunction unremarkable. -No stricture, ulceration, or hiatal hernia. 01/[address] SCAN SHOWED:? 2 mm small radiopaque calculi nonobstructive lower pole right kidney? and mid pole left kidney. There are extrarenal kidney pelvises seen.? Mild constipation without obstruction. No evidence of panniculitis or diverticulitis. Small hiatal hernia.? Fatty lesion anterior body/tail of pancreas junction is stable. 02/15/2018:? ABD MRI SHOWED:Status post cholecystectomy.? No MRI evidence of intra or extrahepatic biliary obstruction, filling defects or stones.Pancreatic metrics incised are normal, no pancreatic mass found ENDOSCOPIC STUDIES: 11/22/23 EGD AND COLON SHOWED: Endoscopy Findings: Esophagus: GE junction at 32 cm, diaphragm hiatus at 35 cm, consistent with 3 cm sliding hiatal hernia, erosive esophagitis noted, LA grade A --esophageal inlet patch noted Stomach: Patchy erythema. Biopsies were obtained. Grade 2 flap valve on retroflexed examination of the cardia. Duodenum: Normal bulb and descending duodenum, bx taken Colonoscopy Findings: internal hemorrhoids with skin tags Plan: Await Pathology results Repeat Colonoscopy in 1 year due to areas of fair prep or earlier if clinically indicated High fiber diet leaflet avoid straining at stool, epsom salts and sitz bath, anusol supps or cream reflux precautions if H pylori pos then treat amyloids, IGG4 staining and mast cells was negative 12/22/22 EGD SHOWED: Endoscopy Findings:LARYNX: Changes suggestive of LPRD ESOPHAGUS: Hiatal hernia STOMACH: Diffuse gastritis DUODENUM: Two 2-3 mm superficial ulcers in the bulb and normal descending duodenum. Plan: Above findings were reviewed with the patient and Hiatal Hernia and PUD handouts were given in the discharge [facility] Medical History At high risk for breast cancer Atypical ductal hyperplasia of left breast Migraines Dysphagia Hx of flexible sigmoidoscopy Internal derangement of right shoulder Lump of left breast Chronic constipation Rotator cuff impingement syndrome of left shoulder Colitis Rotator cuff impingement syndrome Lateral epicondylitis of both elbows IBS (irritable bowel syndrome) Tendinopathy of left rotator cuff History of TIA (transient ischemic attack) Hypercholesterolemia Vitamin D deficiency Multinodular thyroid Pancreatic cyst Thyroid nodule GERD (gastroesophageal reflux disease) Hypertension Asthma Kidney stones Fibromyalgia Allergic rhinitis Sciatic nerve pain Ovarian cyst Hypothyroidism Surgical History History of carpal tunnel release (09/25/24) History of arthroscopic surgery of shoulder Hx of eye surgery History of breast lump/mass excision Hx of hemorrhoidectomy Hx of tubal ligation History of esophagogastroduodenoscopy (EGD) History of colonoscopy (~11/16/19) H/O: hysterectomy History of thyroidectomy (~11/2018) History of kidney surgery Hx of bilateral breast reduction surgery Hx of appendectomy History of cholecystectomy (~2003) H/O lithotripsy (04/30/24) Family History Father Family history of high blood pressure History of high cholesterol Mother History of diabetes mellitus Family history of high blood pressure Family history of asthma History of fibromyalgia Liver disease Maternal Grandfather Colon cancer Family/Other Breast cancer Maternal Aunt Breast cancer Family/Other Breast cancer Social History Household Members: Spouse Household Members Other:: daughter Housing: Apartment Are you a primary care manager to a significant other at home: No Do you presently have visiting nurse or other home services: No Alcohol intake: never Patient Tobacco Use Status: Former Tobacco user Tobacco use type: Cigarette Years Smoked: 15 e-Cigarette/Vaping Use: Never Used Second Hand Smoke Exposure: Yes Substance Use Type: Marijuana service: No Current occupational status: disabled Current occupation: right handed Sexual orientation: Straight/Heterosexual Gender identity: Female Cognitive needs: No Hearing needs: No Vision needs: Yes Female Reproductive History Menstrual Age of Menarche: 10 Review of Systems Const All systems reviewed & are unremarkable except as noted in HPI and below Physical Exam Vital Signs: Last Vital Signs Pulse 79 10/30/24 08:39 BP 132/81 10/30/24 08:39 Pulse Ox 98 10/30/24 08:39 Oxygen Delivery Method Room Air 10/30/24 08:39 BMI result Body Mass Index 37.4 Const General: healthy appearing and no acute distress Nutritional Appearance: obese Orientation/consciousness: patient oriented x3 HEENT Head: Yes normal to inspection Ears: hearing grossly normal bilaterally Eyes Sclerae: sclerae normal Pupils: Equal, round and reactive pupils present Neck Neck: Yes normal visual inspection Chest Chest palpation & inspection: normal inspection of the chest Resp Effort & Inspection: normal respiratory effort Auscultation: clear to auscultation bilaterally Cardio Palpation: normal PMI Rate: regular rate Rhythm: regular rhythm Heart sounds: S1 normal heart sound present, S2 normal heart sound present and no murmurs GI Palpation (GI): Soft to palpation, Tenderness to palpation present (GI) (Mild to moderate epigastric/LUQ tenderness) and No hepatosplenomegaly present Auscultation: normal bowel sounds Rectal Exam - Female: deferred Skin General skin exam: no rashes or lesions noted Neuro General: patient oriented x3, gait normal and moves all extremities Cranial nerves: Yes Equal, round and reactive pupils present Psych Appearance: grossly normal Mental Status: mental status grossly normal Assessment & Plan Assessment & Plan (1) Pancreatic cyst: Comment: 8 mm cystic lesion in the pancreas - stable since 2013. Plan is to continue to follow with imaging every 2 years. If size increases to > 1 cms,she will need further evaluation with EUS/MRCP. 02/[address] scan showed Fatty lesion anterior body/tail of pancreas junction is stable. Code(s): K86.2 - Cyst of pancreas Category: Medical (2) Irritable bowel syndrome: Code(s): K58.9 - Irritable bowel syndrome, unspecified Category: Medical (3) GERD (gastroesophageal reflux disease): Code(s): K21.9 - Gastro-esophageal reflux disease without esophagitis Category: Medical (4) Elevated lipase: Code(s): R74.8 - Abnormal levels of other serum enzymes Category: Medical (5) Small intestinal bacterial overgrowth: Code(s): K63.8219 - Small intestinal bacterial overgrowth, unspecified Category: Medical (6) Early satiety: Code(s): R68.81 - Early satiety Category: Medical Plan 54 YF with htn, fibromyalgia, asthma, obesity, migraine BROWNE with long history of abdominal pain associated with diarrhea and bloating, constipation alternating with diarrhea with symptoms suggestive of outlet delay. Abdominal pain is likely due to IBS with constipation and diarrhea. Patient notes partial improvement in symptoms with senna, she has not used a suppository or enema in the past.? She tried dicyclomine in the past and was not helpful for abdominal pain. Patient had a colonoscopy on 11/18/19? for evaluation of rectal bleeding which revealed diverticulosis and no polyps.? Random biopsies obtained from the colon were negative for inflammation. 08/2020 Anorectal manometry with balloon expulsion testing at [facility] showed: IMPRESSIONS: Borderline anal hypertension and borderline anal hypocontractility (overall anal sphincter strength lower than average for gender) Abnormal balloon expulsion with normal manometric pattern of rectoanal coordination normal rectal propulsive force and normal anal relaxation with push) This is considered an inconclusive finding that can also be seen in normal controls according to the Wu classification. Mild rectal hypersensitivity suggestive of chronic constipation She complains of constipation x 2-3 days followed by soft/watery stools lasting for half a day. Patient was advised to take Miralax every other day for constipation and take Rifaximin x 14 days for suspected SIBO. Takes Miralax intermittently Pt was advised to go on a clear liquid diet and take Mag Citrate to clean out her colon. Then start taking Linzess for constipation. 01/30/22 - pt was advised stool studies, start a probiotic and increase sucralfate to 3-4 times daily 03/16/22 Pt was switched from Omeprazole to Pantoprazole 40 mg twice daily and started on Amitriptyline 25 mg at bedtime. 04/28/22 Amitriptyline dose was increased to 50 mg at bedtime Pt's wt gain is likely related to elevated TSH levels - repeat TSH planned in [address] Humphrey 11/30/22 Pt complains of left sided abd pain, bloating and worsening GERD symptoms after she was advised to take the Pantoprazole later in the day and stop sucralfate due to suspected drug interaction with Levothyroxine. Pt was advised to increase pantoprazole to 40 mg twice daily and amitriptyline to 75 mg at bedtime She will be scheduled for an EGD (last EGD in 2018 showed a small hiatal hernia and gastritis - no HP on bx) - scheduled on 12/22/22. 12/21/22 Pt seen with worsening upper abdominal pain, nausea, vomiting and unable to tolerate PO food. Pt had an elevated lipase on 12/18/22 Pt advised to return to the ED for repeat labs, lipase and a CT scan with IV contrast. She will need to be admitted if lipase remains elevated for bowel rest and IVF Repeat lipase was normal. ABD CT SCAN SHOWED: PANCREAS: Edematous appearing pancreas with peripancreatic stranding. This appears more pronounced than the 08/08/2020 examination. No peripancreatic fluid collections. No dilatation of the main pancreatic duct. 12/22/22 EGD was performed in findings as noted above. Order placed for MRCP for FU of pancreatitis Of note pt is status post lap macy and had a normal triglyceride level a few months ago. 05/03/23 Lab and MRI results reviewed. Vaguely recall being treated with steroids in the past (? 2006). Complains of nausea and postprandial vomiting. Has been loosing weight. IgG4 level was elevated at 166.8 Additional lab, urine and stool test were ordered and not done yet - pt advised to complete ADDENDUM: 05/17/23 Pt called an lab results reviewed: Having watery stools for the past two weeks with bowel accidents Notes post prandial diarrhea which is very smelly. Stool appears greasy and sometime pale with white dots. No one is sick at home. Having 1 meal a day (rice, beans, chicken, eggs and toast) and keeps loosing weight. Started on antibiotics for suspected SIBO and has been taking it without improvement in symptoms. Pt with long hx of Abd pain, diarrhea alternating with constipation initially diagnosed with IBS Enlarged pancreas on past CT and MRI showed a normal pancreas Elevated Ig G4 levels without other clinical signs of Ig G4 related disease 06/01/[address] Alegre for a 2nd opinion and additional labs were ordered and pt scheduled for EGD and colon 06/14/23 Loosing weight too fast, loosing hair, cant keep anything in her stomach. Unable to eat without vomiting or diarrhea. Constant abdominal pain. Has diarrhea alternating with constipation. No BM x 3 days Advised GFD - states she tried a GFD in the past ? for 1-2 years and willing to try it again. 08/02/23 Constantly burping associated with regurgitation of liquids and feels like she is drowning Taking Omeprazole and is working a little bit. Hardly eat since has nausea and abdominal pain when she eats Ref to Hem Onc for evaluation of elevated Ig A levels 04/17/24 [place] of antibiotics for suspected SIBO Going to [place] in April (GS is graduating from the [employer]) 08/14/24 LUQ (stabbing and burning) with a visible lump - not related to eating and diarrhea alternating with constipation alternating with mushy stools. Pt advised to schedule an upper endoscopy (GERD, dysphagia & abd pain) and colonoscopy (sub-optimal prep on pst colonoscopy). 10/30/24 EGD and colon results were reviewed. Notes stabbing pains in the throat and upper abdomen simultaneously since she had the EGD, Notes hoarseness Pt advised to take a probiotic daily and schedule a gastric emptying study. FU in 3 month - Orders: Orders NM gastric emptying study 10/30/24 R68.81 - Early satiety Medications: New Bifidobacterium longum (Align (B.longum)) 1 capsule orally daily; 30.0 caps 3RF 30 days K58.9 - Irritable bowel syndrome, unspecified Coding Level of Care Code Est Pt Level 4 (79016) Diagnoses Pancreatic cyst K86.2 Irritable bowel syndrome K58.9 GERD (gastroesophageal reflux disease) K21.9 Elevated lipase R74.8 Small intestinal bacterial overgrowth K63.8219 Early satiety R68.81 Time Spent (min) 24
[2024-10-30 08:39] VITALS: BP 132/81; PULSE 79; O2SAT 98; BMI 37.4
--- OUTSIDE RECORDS SUMMARY | 2024-10-30 08:57 | XMS_ITS | Clinical Summary ---
Author Organization [facility] Facility Address [address] [place] [address], [place] [address] Care Team Providers Care Litigation Support Analyst Name Role Phone Naomi Bains MD Primary [...] 2021 Influenza Vaccine (#1) 2024 Insurance [place] [id number] [facility] Medicaid [facility] Medicaid Care Teams Litigation Support Analyst Relationship Specialty Start Date End Date Naomi Bains MD [address] [place] [id number] PCP - General 03/08/20
--- OUTSIDE RECORDS SUMMARY | 2024-10-30 08:57 | XMS_ITS | Clinical Summary ---
Author Organization [facility] Address [address] [place] [id number] Phone Care Team Providers Care It Application Administrator Name Role Phone Unavailable Primary Care Provider [...] It is not the complete legal health record.[facility]
== END 2024-10-30 09:19 | disposition home or self-care (01) ==
LOC: HO.HGI 08:29
PROVIDERS: PCP Internal Medicine; Visit Provider Internal Medicine Gastroenterology
DX: K86.2 Cyst of pancreas (principal); K58.9 Irritable bowel syndrome, unspecified; K21.9 Gastro-esophageal reflux disease without esophagitis; R74.8 Abnormal levels of other serum enzymes; K63.8219 Small intestinal bacterial overgrowth, unspecified; R68.81 Early satiety
CPT/HCPCS: 99214

== ENCOUNTER → 2024-10-30 08:28 | Outpatient (BNVA) | payer OTHER, SELFPAY | PROVIDERS: PCP Internal Medicine; Visit Provider Internal Medicine Gastroenterology | DX: K21.9 Gastro-esophageal reflux disease without esophagitis (principal); R74.8 Abnormal levels of other serum enzymes; R68.81 Early satiety; K63.8219 Small intestinal bacterial overgrowth, unspecified; K86.2 Cyst of pancreas; K58.9 Irritable bowel syndrome, unspecified | CPT/HCPCS: 99212 ==

== ENCOUNTER 2024-11-07 09:41 | Outpatient (AMB) | payer OTHER, SELFPAY ==
--- NOTE | 2024-11-07 09:44 | MHC.OFFVIS ---
Vital Signs 11/07/24 09:54 Height 5 ft 5 in Weight 181 lb BMI 30.1 BP 117/73 Blood Pressure Location Lt brachial Position Sitting Pulse 63 Intake Visit Reasons: s/p left breast lumpectomy Intake Note: Patient is seen in office for post op assessment post left breast lumpectomy. Pt c/o: admits to sore and tender surgery:10/29/24 Retort Press Operator Required: No Accompanied by: Self / Same As Patient Allergies pineapple (PINEAPPLE) Allergy (Severe, Verified 11/07/24 09:53) ANAPHYLAXIS adhesive tape Allergy (Intermediate, Verified 11/07/24 09:53) Blister Iodinated Contrast Media (IV Dye, Iodine Containing) Allergy (Intermediate, Verified 11/07/24 09:53) SOB,RASH levofloxacin (From Levaquin) Allergy (Intermediate, Verified 11/07/24 09:53) swelling/rash oxycodone (From Percocet) Allergy (Intermediate, Verified 11/07/24 09:53) rash/SOB aspirin (ASA) Adverse Reaction (Mild, Verified 11/07/24 09:53) UPSET STOMACH HPI Comments Details: 54-year-old female patient found to have a palpable mass in the left breast at the 03:00 location with the associated pain. Subsequent mammogram and ultrasound performed on 06/26/2024 revealed bilateral reduction mammoplasty changes with no significant mass or abnormal calcification or other abnormalities in the right breast. On the left side a BB marker in the left upper outer breast posterior depth without underlying abnormality the site of palpable lumps. A targeted ultrasound in the area of the palpable lump demonstrated a previously seen hypoechoic oval solid mass versus complicated cyst in his who o'clock position approximately 12 cm from the nipple measuring 5 x 6 x 2 mm without significant change since 12/13/2020. Patient underwent bilateral reduction mammoplasties in 2008. She developed a wound separation in the right breast without infection. Because of the persistent palpable lump on clinical breast examination, the decision was made to proceed to excision of the palpable lump of the left breast performed on 10/29/2024. Subsequent pathology revealed a small focus of atypical ductal hyperplasia small focus completely excised. There was also fibrocystic change with the usual ductal hyperplasia, apocrine metaplasia, duct ectasia, fibroadenomatous changes, focal columnar cell changes, and dense hyalinized stromal fibrosis. There was no evidence of malignancy. The patient tolerated the procedure well and reports mild discomfort at the incision site. She is 8 para 4 menarche age 10, 1st at 18. Family history is significant for a maternal aunt with breast cancer as well as a niece. Her [facility] remaining lifetime risk of breast cancer was calculated at 29.3%, placing her at high risk for breast cancer. [facility] Medical History At high risk for breast cancer Atypical ductal hyperplasia of left breast Migraines Dysphagia Hx of flexible sigmoidoscopy Internal derangement of right shoulder Lump of left breast Chronic constipation Rotator cuff impingement syndrome of left shoulder Colitis Rotator cuff impingement syndrome Lateral epicondylitis of both elbows IBS (irritable bowel syndrome) Tendinopathy of left rotator cuff History of TIA (transient ischemic attack) Hypercholesterolemia Vitamin D deficiency Multinodular thyroid Pancreatic cyst Thyroid nodule GERD (gastroesophageal reflux disease) Hypertension Asthma Kidney stones Fibromyalgia Allergic rhinitis Sciatic nerve pain Ovarian cyst Hypothyroidism Surgical History History of carpal tunnel release (09/25/24) History of arthroscopic surgery of shoulder Hx of eye surgery History of breast lump/mass excision Hx of hemorrhoidectomy Hx of tubal ligation History of esophagogastroduodenoscopy (EGD) History of colonoscopy (~11/16/19) H/O: hysterectomy History of thyroidectomy (~11/2018) History of kidney surgery Hx of bilateral breast reduction surgery Hx of appendectomy History of cholecystectomy (~2003) H/O lithotripsy (04/30/24) Family History Father Family history of high blood pressure History of high cholesterol Mother History of diabetes mellitus Family history of high blood pressure Family history of asthma History of fibromyalgia Liver disease Maternal Grandfather Colon cancer Family/Other Breast cancer Maternal Aunt Breast cancer Family/Other Breast cancer Social History Household Members: Spouse Household Members Other:: daughter Housing: Apartment Are you a primary respiratory care technician to a significant other at home: No Do you presently have visiting nurse or other home services: No Alcohol intake: never Patient Tobacco Use Status: Former Tobacco user Tobacco use type: Cigarette Years Smoked: 15 e-Cigarette/Vaping Use: Never Used Second Hand Smoke Exposure: Yes Substance Use Type: Marijuana service: No Current occupational status: disabled Current occupation: right handed Sexual orientation: Straight/Heterosexual Gender identity: Female Cognitive needs: No Hearing needs: No Vision needs: Yes Female Reproductive History Menstrual Age of Menarche: 10 Review of Systems Const All systems reviewed & are unremarkable except as noted in HPI and below Physical Exam Vital Signs: Last Vital Signs Pulse 63 11/07/24 09:54 BP 117/73 11/07/24 09:54 BMI result Body Mass Index 30.1 Const General: cooperative and no acute distress Orientation/consciousness: patient oriented x3 Limitations: no limitations HEENT Head: Yes normocephalic and Yes atraumatic Ears: hearing grossly normal bilaterally Chest Chest/axillae images:  1. Well-healed incision in the upper outer quadrant left breast with no underlying hematoma or seroma. Resp Effort & Inspection: normal respiratory effort, no audible wheezes, no cough and no respiratory distress Cardio Jugular venous distension: no JVD GI Inspection: Yes normal to inspection Skin Other: Warm, dry, no rash Neuro General: patient oriented x3 Extrem General: Yes no clubbing, cyanosis or edema Assessment & Plan Assessment & Plan (1) Atypical ductal hyperplasia of left breast: Code(s): N60.92 - Unspecified benign mammary dysplasia of left breast Category: Medical (2) At high risk for breast cancer: Code(s): Z91.89 - Other specified personal risk factors, not elsewhere classified Category: Medical Plan 54-year-old female patient recently diagnosed with atypical ductal hyperplasia of the left breast. She tolerated the lumpectomy with only mild discomfort in the upper outer quadrant. Her Tyrer-Cuzick score was calculated at 29.3% placing her at high risk for breast cancer. I recommended obtaining breast MRI. She has previously been evaluated by Dr. Calhoun I therefore recommended she follow up with Dr. Calhoun for possible antiestrogen therapy for the atypical ductal hyperplasia. I recommended alternating mammogram and breast MRIs every 6 months with twice yearly breast examinations. She expressed understanding and agrees with the plan. She will follow up in 6 months. Orders: Orders MR breast BI wo/w con Today N60.92 - Unspecified benign mammary dysplasia of left breast, Z91.89 - Other specified personal risk factors, not elsewhere classified Referrals Hematology & Oncology Referral N60.92 - Unspecified benign mammary dysplasia of left breast, Z91.89 - Other specified personal risk factors, not elsewhere classified Coding Level of Care Code Global (14139) Diagnoses Atypical ductal hyperplasia of left breast N60.92 At high risk for breast cancer Z91.89
[2024-11-07 09:54] VITALS: BP 117/73; PULSE 63; BMI 30.1
--- OUTSIDE RECORDS SUMMARY | 2024-11-07 10:50 | XMS_ITS | Clinical Summary ---
Author Organization [facility] Address [address] [place] [phone] Phone Care Team Providers Care Targeteer Name Role Phone Unavailable Primary Care Provider [...] It is not the complete legal health record.[facility]
--- OUTSIDE RECORDS SUMMARY | 2024-11-07 10:50 | XMS_ITS | Clinical Summary ---
Author Organization [facility] Facility Address [address] [place] [address], [place] [address] Care Team Providers Care Laundry Operator Name Role Phone Naomi Bains MD [...] 2021 Influenza Vaccine (#1) 2024 [place] [id number] [facility] Medicaid [facility] Medicaid Care Teams Laundry Operator Relationship Specialty Start Date End Date Naomi Bains MD [address] [place] [phone] PCP - General 03/08/20
== END 2024-11-07 10:00 | disposition home or self-care (01) ==
LOC: HO.HGS 09:42
PROVIDERS: PCP Physician Assistant; Visit Provider Surgery
DX: N60.92 Unspecified benign mammary dysplasia of left breast (principal); Z91.89 Other specified personal risk factors, not elsewhere classified
CPT/HCPCS: 99024

== ENCOUNTER → 2024-11-07 09:41 | Outpatient (BNVA) | payer OTHER, SELFPAY | PROVIDERS: PCP Physician Assistant; Visit Provider Surgery | DX: Z91.89 Other specified personal risk factors, not elsewhere classified (principal); N60.92 Unspecified benign mammary dysplasia of left breast | CPT/HCPCS: 99212 ==

== ENCOUNTER 2024-11-17 08:45 | Outpatient (REF) | payer OTHER, SELFPAY ==
[2024-11-17 11:32] LABS: Free T4 (Free Thyroxine) < 0.42 ng/dL (0.71-1.85); Thyroid Stimulating Hormone 41.41 uIU/mL (0.32-4.0)
== END 2024-11-17 08:46 | disposition home or self-care (01) ==
LOC: HO.LAB 08:45
PROVIDERS: Absent Provider Student in an Organized Health Care Education/Training Program; PCP Physician Assistant; Visit Provider Physician Assistant
DX: E89.0 Postprocedural hypothyroidism (principal); I10 Essential (primary) hypertension; N60.92 Unspecified benign mammary dysplasia of left breast; D82.4 Hyperimmunoglobulin E [IgE] syndrome; Z91.09 Other allergy status, other than to drugs and biological substances; Z79.890 Hormone replacement therapy; Z79.899 Other long term (current) drug therapy
CPT/HCPCS: 36415; 84439; 84443; 99212

== ENCOUNTER 2024-11-17 08:45 | Outpatient (AMB) | payer OTHER, SELFPAY ==
--- NOTE | 2024-11-17 08:48 | MHC.PC.OV ---
Vital Signs 11/17/24 08:50 Height 5 ft 5 in Weight 226 lb 2 oz BMI 37.6 BP 140/82 H Blood Pressure Location Lt brachial Position Sitting Pulse 85 Pulse Source Pulse Oximeter Temp 97.1 F Temp Source Temporal Artery Scan Pulse Oximetry (%) 93 Oxygen Delivery Method Room Air Intake Visit Reasons: 3 months Intake Note: Patient is here to follow up on JULISA, GERD, IBS, HTN. Handhole Machine Operator Required: No Nursing Home Aide: Not Required per policy Accompanied by: Self / Same As Patient Allergies pineapple (PINEAPPLE) Allergy (Severe, Verified 11/17/24 09:01) ANAPHYLAXIS adhesive tape Allergy (Intermediate, Verified 11/17/24 09:01) Blister Iodinated Contrast Media (IV Dye, Iodine Containing) Allergy (Intermediate, Verified 11/17/24 09:01) SOB,RASH levofloxacin (From Levaquin) Allergy (Intermediate, Verified 11/17/24 09:01) swelling/rash oxycodone (From Percocet) Allergy (Intermediate, Verified 11/17/24 09:01) rash/SOB aspirin (ASA) Adverse Reaction (Mild, Verified 11/17/24 09:01) UPSET STOMACH Medication List - Last Reconciled 11/17/24 by Donis Barron PA-C amlodipine 10 mg PO DAILY atorvastatin (Lipitor) 10 mg PO DAILY Bifidobacterium longum (Align (B.longum)) 1 capsule orally daily; 30 days budesonide-formoterol 160-4.5 mcg/actuation (Symbicort) 2 puffs inhalation BID cholecalciferol (vitamin D3) (Vitamin D3) 50 mcg PO DAILY diclofenac sodium 50 mg PO DAILY 30 days diphenhydramine HCl (Benadryl Allergy) 25 mg orally one tablet this evening and one tablet tomorrow am; docusate sodium 100 mg PO BID famotidine 20 mg PO BEDTIME PRN hydrochlorothiazide 25 mg PO DAILY ipratropium bromide 2 sprays intranasal TID 30 days ipratropium-albuterol 0.5 mg-3 mg(2.5 mg base)/3 mL 3 mL inhalation Q4-6H PRN levothyroxine (Tirosint) 200 mcg PO DAILY lisinopril 40 mg PO DAILY 90 days lorazepam 1 mg PO ONCE PRN metoprolol tartrate 100 mg PO BID 90 days mupirocin 2% 1 appl topical BID 30 days omalizumab (Xolair) 300 mg (2 mL) subcut Q2W omeprazole 40 mg (2 x 20 mg) PO DAILY ondansetron 4 mg PO Q8H PRN 30 days pyridoxine (vitamin B6) 100 mg PO DAILY tamsulosin (Flomax) 0.4 mg PO BEDTIME tramadol 50 mg PO Q8H PRN Ventolin HFA 90 mcg/actuation (albuterol sulfate) 2 puffs inhalation Q4-6H PRN 30 days NS vonoprazan (Voquezna) 20 mg PO DAILY 8 weeks Tobacco use date assessed: 11/17/24 Dental Screening Dental Screen Date: 04/23/24 HPI 3 months HPI Details The patient is a 53-year-old female presenting for a follow-up visit week follow-up visit. Patient has a past medical history significant for hypothyroidism, major depressive disorder, obesity, GERD, irritable bowel syndrome, hypertension . Concern--> The patient suspects obstructive sleep apnea due to symptoms of excessive daytime sleepiness and has been advised to undergo a sleep study. She has not been tested recently, although it was suggested previously. Left breast atypical ductal hyperplasia: Recently found to have a solid mass in her left breast, she has a high-risk for breast cancer. She is followed by general surgeon and oncologist and will be going for breast MRI and genetic testing. Hypertension: Patient's blood pressure slightly elevated today in office, we can attribute this to her current breast pain. Reports at home diastolic blood pressures remain elevated. She continues on multiple different antihypertensives including amlodipine, lisinopril, hydrochlorothiazide and metoprolol. She has a history of fibromyalgia, which has significantly worsened over the past three years, coinciding with the of her niece and mother, leading to severe depression and anxiety. The fibromyalgia results in chronic pain throughout her body, including headaches and muscle pain, and she reports multiple unsuccessful medication trials, including gabapentin and other unspecified treatments, without sustained relief. The patient's depression, compounded by considerable personal loss, exacerbates her pain and disrupts her sleep. Hypothyroidism: Now followed by endocrinology in [place]. TSH remains elevated. She was changed to capsules which were much more effective. Her levothyroxine was 175 mcg the TSH remains to be elevated, unclear if this is a an absorption issue due to her GI dysfunctions. She will start taking her PPI therapy at night to see if we can get better absorption of her levothyroxine. Her levothyroxine capsules were increased to 200 mcg though patient reports pharmacy has not had the 200 mcg. [facility] Medical History At high risk for breast cancer Atypical ductal hyperplasia of left breast Migraines Dysphagia Hx of flexible sigmoidoscopy Internal derangement of right shoulder Lump of left breast Chronic constipation Rotator cuff impingement syndrome of left shoulder Colitis Rotator cuff impingement syndrome Lateral epicondylitis of both elbows IBS (irritable bowel syndrome) Tendinopathy of left rotator cuff History of TIA (transient ischemic attack) Hypercholesterolemia Vitamin D deficiency Multinodular thyroid Pancreatic cyst Thyroid nodule GERD (gastroesophageal reflux disease) Hypertension Asthma Kidney stones Fibromyalgia Allergic rhinitis Sciatic nerve pain Ovarian cyst Hypothyroidism Surgical History History of carpal tunnel release (09/25/24) History of arthroscopic surgery of shoulder Hx of eye surgery History of breast lump/mass excision Hx of hemorrhoidectomy Hx of tubal ligation History of esophagogastroduodenoscopy (EGD) History of colonoscopy (~11/16/19) H/O: hysterectomy History of thyroidectomy (~11/2018) History of kidney surgery Hx of bilateral breast reduction surgery Hx of appendectomy History of cholecystectomy (~2003) H/O lithotripsy (04/30/24) Family History Father Family history of high blood pressure History of high cholesterol Mother History of diabetes mellitus Family history of high blood pressure Family history of asthma History of fibromyalgia Liver disease Maternal Grandfather Colon cancer Family/Other Breast cancer Maternal Aunt Breast cancer Family/Other Breast cancer Social History Household Members: Spouse Household Members Other:: daughter Housing: Apartment Are you a primary palliative care physician to a significant other at home: No Do you presently have visiting nurse or other home services: No Alcohol intake: never Patient Tobacco Use Status: Former Tobacco user Tobacco use type: Cigarette Years Smoked: 15 e-Cigarette/Vaping Use: Never Used Second Hand Smoke Exposure: Yes Substance Use Type: Marijuana service: No Current occupational status: disabled Current occupation: right handed Sexual orientation: Straight/Heterosexual Gender identity: Female Cognitive needs: No Hearing needs: No Vision needs: Yes Female Reproductive History Menstrual Age of Menarche: 10 Questionnaire Thrive Questionnaire Date Thrive assessed: 06/23/24 I am a: Patient What is your living situation today?: I choose not to answer this question Within the past 12 months, did the food you bought not last and you didn't have the money to get more?: I choose not to answer this question Within the past 12 months, did you worry whether your food would run out before you got money to buy more?: I choose not to answer this question Do you have trouble paying for medicines?: I choose not to answer this question Do you have trouble getting transportation to medical appointments?: I choose not to answer this question Do you have trouble paying your heating and electricity bill?: I choose not to answer this question Do you have trouble taking care of your child, family member or friend?: I choose not to answer this question Do you have trouble with day-to-day activities such as bathing, preparing meals, shopping, managing finances, etc.?: I choose not to answer this question Are you currently unemployed and looking for a job?: I choose not to answer this question Are you interested in more education?: I choose not to answer this question Please select the resources that you would like help with: None Currently or been in a relationship where the following occur: I choose not to answer THRIVE Score: 0 INDRA-7 AMB Questionnaire INDRA-7 Date INDRA - 7 assessed: 04/23/24 Source: Developed by Drs. Rainer Caldwell, Ashanti Malone, Hank Dewitt and colleagues, with an educational mayco from [employer]. Review of Systems Const Denies headache(s) Eyes Denies loss of vision ENT Denies vertigo, Denies dizziness, Denies headache(s) and Denies sore throat Card Denies chest pain, Denies leg edema and Denies lightheadedness Resp Denies cough, Denies hemoptysis and Denies wheezing GI Denies abdominal pain, Denies melena, Denies constipation, Denies diarrhea and Denies vomiting Denies urinary frequency, Denies dysuria and Denies urinary urgency Musc Denies arthralgias, Denies joint swelling, Denies numbness and Denies tingling Neuro Denies Abnormal speech present, Denies behavioral changes, Denies vertigo, Denies dizziness, Denies headache(s), Denies loss of vision, Denies memory loss, Denies numbness and Denies tingling Psych Denies anxiety, Denies behavioral changes, Denies depression, Denies memory loss and Denies panic attacks Chuy/Lymph Denies easy bleeding and Denies easy bruising Aller/Immun Denies wheezing Physical exam (Primary Care) Vital Signs: Last Vital Signs Temp 97.1 F 11/17/24 08:50 Pulse 85 11/17/24 08:50 BP 140/82 H 11/17/24 08:50 Pulse Ox 93 11/17/24 08:50 Oxygen Delivery Method Room Air 11/17/24 08:50 BMI result Body Mass Index 37.6 BMI Assessment/Plan discussion: High BMI High, discussed plan: lifestyle, weight reduction, dietary and physical activity Tobacco/Smoking Status: Tobacco use Status Tobacco use date assessed 11/17/24 11/17/24 08:55 Patient Tobacco Use Status Former Tobacco user 11/17/24 08:55 Tobacco use type Cigarette 11/17/24 08:55 e-Cigarette/Vaping Use Never Used 11/17/24 08:55 Thrive Assessment: Date of Thrive Assessment Date Thrive assessed 06/23/24 11/17/24 08:55 Currently or been in a relationship where the following occur: I choose not to answer Const General: healthy appearing, no acute distress, alert and awake Nutritional Appearance: well nourished Orientation/consciousness: oriented to person, oriented to place and oriented to time HENMT Ears: TM's normal bilaterally General nose exam: Normal nasal mucous membranes and turbinates present Eyes Conjunctivae: conjunctivae normal Sclerae: sclerae normal Pupils: Equal, round and reactive pupils present Neck Neck: Yes no lymphadenopathy and Yes no JVD Thyroid: Thyroid normal Carotids: no bruits Resp Effort & Inspection: normal respiratory effort and not tachypneic Auscultation: crackles, no rales, no rhonchi and no wheezes Cardio Rate: regular rate Rhythm: regular rhythm Heart sounds: no murmurs and normal S1 and S2 GI Palpation (GI): Soft to palpation, nontender, no hepatomegaly and no splenomegaly Auscultation: normal bowel sounds Skin General skin exam: no rashes or lesions noted and dry skin Neuro General: oriented to person, oriented to place and oriented to time Cranial nerves: Yes Equal, round and reactive pupils present Speech: No Abnormal speech present Gait exam (Neuro): Normal gait present Motor exam (neuro): no tremor noted Extrem Right upper extremity: full ROM Left upper extremity: full ROM Right lower extremity: full ROM; no edema Left lower extremity: full ROM; no edema Psych Mental Status: mental status grossly normal Speech and movement: Normal speech and movement present Affect: normal affect Attitude: cooperative Thought process: Normal thought process present Coding Level of Care Code Est Pt Level 4 (92441) Diagnoses Essential hypertension I10 Hypertension type: essential hypertension Postoperative hypothyroidism E89.0 Hypothyroidism type: postoperative Atypical ductal hyperplasia of left breast N60.92 Environmental allergies 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 Patient continues on highest dose of lisinopril, hydrochlorothiazide and amlodipine. We attributes her high blood pressures due to recent plain secondary to breast biopsy Will continue metoprolol, amlodipine, lisinopril and hydrochlorothiazide with goal blood pressure to be below 140/90. (2) Hypothyroidism: Code(s): E03.9 - Hypothyroidism, unspecified Category: Medical Qualifiers: Hypothyroidism type: postoperative Qualified Code(s): E89.0 - Postprocedural hypothyroidism Plan: She has reestablish care with endocrinology. Her TSH remains even more elevated even on higher dose of levothyroxine 75 mcg. She was prescribed 200 mcg levothyroxine capsules though per patient was not available at the pharmacy. Advised to change her PPI therapy to nighttime dosing to see if we can get better absorption of her levothyroxine capsules. (3) Atypical ductal hyperplasia of left breast: Code(s): N60.92 - Unspecified benign mammary dysplasia of left breast Category: Medical Plan: A muscle relaxant, cyclobenzaprine, will be prescribed to alleviate musculoskeletal pain, with caution advised regarding concurrent use with tramadol. (4) Environmental allergies: Code(s): Z91.09 - Other allergy status, other than to drugs and biological substances Category: Medical Plan: Noticed slight crackles on pulmonary exam today The patient will resume regular Xolair injections to manage allergic rhinitis and associated respiratory symptoms. 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 She is due for her Xolair injection Orders: Orders RT home sleep study Today G47.33 - Obstructive sleep apnea (adult) (pediatric) Medications: New cyclobenzaprine 10 mg PO BEDTIME 15 tabs 0RF 15 days N60.92 - Unspecified benign mammary dysplasia of left breast
[2024-11-17 08:50] VITALS: BP 140/82; PULSE 85; TEMP 36.2; O2SAT 93; BMI 37.6
--- OUTSIDE RECORDS SUMMARY | 2024-11-17 10:08 | XMS_ITS | Clinical Summary ---
Author Organization [facility] Address [address] [place] [address] Phone Care Team Providers Care Wire Transfer Clerk Name Role Phone Unavailable Primary Care Provider [...] It is not the complete legal health record.[facility]
--- OUTSIDE RECORDS SUMMARY | 2024-11-17 10:08 | XMS_ITS | Clinical Summary ---
Author Organization [facility] Facility Address [address] [place] [address], [place] [address] Care Team Providers Care Principal Biostatistician Name Role Phone Naomi Bains MD Primary [...] Vaccine (#1) 2024 [facility] [place] [id number] [facility] Medicaid [facility] Medicaid Care Teams Principal Biostatistician Relationship Specialty Start Date End Date Naomi Bains MD [address] [place] [phone] PCP - General 03/08/20
== END 2024-11-17 09:28 | disposition home or self-care (01) ==
LOC: HO.HMCH 08:46
PROVIDERS: PCP Physician Assistant; Visit Provider Physician Assistant
DX: I10 Essential (primary) hypertension (principal); E89.0 Postprocedural hypothyroidism; N60.92 Unspecified benign mammary dysplasia of left breast; Z91.09 Other allergy status, other than to drugs and biological substances; D82.4 Hyperimmunoglobulin E [IgE] syndrome

== ENCOUNTER → 2024-11-26 05:40 | Outpatient (BNV) | payer OTHER, SELFPAY | PROVIDERS: PCP Physician Assistant; Visit Provider Radiology Diagnostic Radiology | DX: N20.0 Calculus of kidney (principal) | CPT/HCPCS: 74018 ==

== ENCOUNTER 2024-11-26 06:13 | Day surgery (SDC) | payer OTHER, SELFPAY ==
[2024-11-24 11:05] VITALS: BMI 37.5
--- NOTE | 2024-11-24 14:37 | HO.ANESPROP2 ---
Documented by User: Cristy Gunderson NP 11/24/24 14:38 HPI - Anesthesia Eval Consult details Narrative: 54yo F for Right Lithotripsy ESW s/p Left Breast Lumpectomy 10/2024 with GA-LMA 4 s/p EGD and colo 09/2024 with TIVA Medically and pulmo optimized prior to lumpectomy [place] [facility] [place] and unspecified visual disturbance - all testing negative as below PMFSH Active Problems Active Problems: All Active Problems Atypical ductal hyperplasia of left breast (Acute) Hyperoxaluria (Acute) At high risk for breast cancer (Acute) Atypical ductal hyperplasia of left breast (Acute) Early satiety (Acute) Preop pulmonary/respiratory exam (Acute) Right carpal tunnel syndrome (Acute) Hydronephrosis, right (Acute) Eustachian tube dysfunction (Acute) JULISA (obstructive sleep apnea) (Acute) Breast lump on left side at 3 o'clock position (Acute) Blurred vision, bilateral (Acute) Nausea (Acute) Easy bruisability (Acute) Injury of left great toe (Acute) Severe persistent asthma (Acute) Nasal abrasion (Acute) MDD (major depressive disorder), recurrent episode, moderate (Acute) Eustachian tube disorder (Acute) Ear congestion (Acute) Numbness and tingling in both hands (Acute) Arthritis of carpometacarpal (CMC) joint of left thumb (Acute) De Quervain's tenosynovitis, left (Acute) Preop cardiovascular exam (Acute) Alteration in vision (Acute) Palpitations (Acute) Thumb tendonitis (Acute) MGUS (monoclonal gammopathy of unknown significance) (Acute) Hand pain (Acute) Precordial chest pain (Acute) Elevated immunoglobulin A (Acute) Hyper-IgE syndrome (Acute) Acute diarrhea (Acute) Small intestinal bacterial overgrowth (Acute) Encounter for preoperative pulmonary examination (Acute) 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 (Acute) Chronic diarrhea (Acute) Pelvic pain (Acute) Breast lump on left side at 1 o'clock position (Acute) Chest pain (Acute) Bilateral renal stones (Acute) Acute pancreatitis (Acute) Elevated lipase (Acute) Abdominal pain (Acute) PND (paroxysmal nocturnal dyspnea) (Acute) Right elbow pain (Acute) Migraine (Acute) Skin candidiasis (Acute) Pruritic rash (Acute) Intermittent constipation (Acute) Lichen simplex chronicus (Acute) Obesity (Acute) GERD (gastroesophageal reflux disease) (Acute) Vulvar lesion (Acute) Irritable bowel syndrome (Acute) Post-surgical hypothyroidism (Acute) History of repair of right rotator cuff (Acute) Environmental allergies (Acute) Depression (Acute) Adhesive capsulitis of left shoulder (Acute) Well woman exam (Acute) Complete rotator cuff tear or rupture of right shoulder, not specified as traumatic (Acute) Esophageal spasm (Acute) Hypothyroidism (Acute) History of TIA (transient ischemic attack) (Acute) Kidney stones (Acute) Hypercholesterolemia (Acute) Vitamin D deficiency (Acute) Pancreatic cyst (Acute) Hypertension (Acute) Asthma (Acute) Fibromyalgia (Acute) Past Medical History Medical History At high risk for breast cancer Atypical ductal hyperplasia of left breast Migraines Dysphagia Hx of flexible sigmoidoscopy Internal derangement of right shoulder Lump of left breast Chronic constipation Rotator cuff impingement syndrome of left shoulder Colitis Rotator cuff impingement syndrome Lateral epicondylitis of both elbows IBS (irritable bowel syndrome) Tendinopathy of left rotator cuff History of TIA (transient ischemic attack) Hypercholesterolemia Vitamin D deficiency Multinodular thyroid Pancreatic cyst Thyroid nodule GERD (gastroesophageal reflux disease) Hypertension Asthma Kidney stones Fibromyalgia Allergic rhinitis Sciatic nerve pain Ovarian cyst Hypothyroidism Family History Family History Father Family history of high blood pressure History of high cholesterol Mother History of diabetes mellitus Family history of high blood pressure Family history of asthma History of fibromyalgia Liver disease Maternal Grandfather Colon cancer Family/Other Breast cancer Maternal Aunt Breast cancer Family/Other Breast cancer Family history of problems with anesthesia: No Surgical History Surgical History History of carpal tunnel release (09/25/24) History of arthroscopic surgery of shoulder Hx of eye surgery History of breast lump/mass excision Hx of hemorrhoidectomy Hx of tubal ligation History of esophagogastroduodenoscopy (EGD) History of colonoscopy (~11/16/19) H/O: hysterectomy History of thyroidectomy (~11/2018) History of kidney surgery Hx of bilateral breast reduction surgery Hx of appendectomy History of cholecystectomy (~2003) H/O lithotripsy (04/30/24) History of Problems with Anesthesia: No Social History Social History Household Members: Spouse Household Members Other:: daughter Housing: Apartment Are you a primary hospice home care coordinator to a significant other at home: No Do you presently have visiting nurse or other home services: No Alcohol intake: never Patient Tobacco Use Status: Former Tobacco user Tobacco use type: Cigarette Years Smoked: 15 e-Cigarette/Vaping Use: Never Used Second Hand Smoke Exposure: Yes Substance Use Type: Marijuana Have you been hit, kicked, punched, or otherwise hurt by someone within the past year? If so, by whom?: No Are you DNR?: No Advance Directives: No Advance Directives Information Provided: Yes service: No Current occupational status: disabled Current occupation: right handed Sexual orientation: Straight/Heterosexual Gender identity: Female Cognitive needs: No Hearing needs: No Vision needs: Yes Meds Allergies Allergy/AdvReac Type Severity Reaction Status Date / Time pineapple (PINEAPPLE) Allergy Severe ANAPHYLAXIS Verified 11/17/24 09:01 adhesive tape Allergy Intermediate Blister Verified 11/17/24 09:01 Iodinated Contrast Media (IV Allergy Intermediate SOB,RASH Verified 11/17/24 09:01 Dye, Iodine Containing) levofloxacin (From Levaquin) Allergy Intermediate swelling/ra Verified 11/17/24 09:01 sh oxycodone (From Percocet) Allergy Intermediate rash/SOB Verified 11/17/24 09:01 aspirin (ASA) AdvReac Mild UPSET Verified 11/17/24 09:01 STOMACH Exam Height,Weight and Vital Signs: Height 5 ft 5 in Weight 102.1 kg Pertinent Lab Results Pertinent Lab Results: Laboratory Tests 11/12/24 15:00 WBC 10.3 Hgb 13.4 Hct 39.4 Plt Count 261 Sodium 142 Potassium 3.7 Chloride 107 Carbon Dioxide 29 BUN 15 Creatinine 0.68 Narrative Narrative: EKG 01/2024 NSR @ 76 Low volt QRS Echocardiogram done 09/11/2023 showing EF 60-65%, mild LVH, impaired relaxation, no valve abnormalities. Exercise stress echocardiogram done 11/06/2023 with exercise 6 minutes, report of mild chest tightness, no EKG or echo evidence of ischemia. carotid ultrasound was done on 11/26/2023 showing normal right ICA, minimal, non hemodynamically significant stenosis of the proximal left ICA, 0-49% stenosis. CTA of the head and neck was done 02/19/2024 showing no acute abnormalities Holter 02/2024 Conclusion: 1. Baseline rhythm is normal sinus rhythm with no significant pauses 2. No significant arrhythmias noted 3. Frequent sinus tachycardia noted with 42% of time heart rate about 100 beats per minute 4. Patient reported multiple events with symptoms of chest pressure, lightheadedness correlating with sinus tachycardia Airway Adult Head Mouth w/Numbe Teeth:  1. Missing Assessment and Plan Assessment Anesthesia Assessment: Chart Reviewed Final Anesthetic Review Family History of Problems with Anesthesia: No History of Problems with Anesthesia: No Documented by User: Tahir Werner MD 11/26/24 07:11 [facility] Past Medical History Medical History At high risk for breast cancer Atypical ductal hyperplasia of left breast Migraines Dysphagia Hx of flexible sigmoidoscopy Internal derangement of right shoulder Lump of left breast Chronic constipation Rotator cuff impingement syndrome of left shoulder Colitis Rotator cuff impingement syndrome Lateral epicondylitis of both elbows IBS (irritable bowel syndrome) Tendinopathy of left rotator cuff History of TIA (transient ischemic attack) Hypercholesterolemia Vitamin D deficiency Multinodular thyroid Pancreatic cyst Thyroid nodule GERD (gastroesophageal reflux disease) Hypertension Asthma Kidney stones Fibromyalgia Allergic rhinitis Sciatic nerve pain Ovarian cyst Hypothyroidism Family History Family History Father Family history of high blood pressure History of high cholesterol Mother History of diabetes mellitus Family history of high blood pressure Family history of asthma History of fibromyalgia Liver disease Maternal Grandfather Colon cancer Family/Other Breast cancer Maternal Aunt Breast cancer Family/Other Breast cancer Surgical History Surgical History History of carpal tunnel release (09/25/24) History of arthroscopic surgery of shoulder Hx of eye surgery History of breast lump/mass excision Hx of hemorrhoidectomy Hx of tubal ligation History of esophagogastroduodenoscopy (EGD) History of colonoscopy (~11/16/19) H/O: hysterectomy History of thyroidectomy (~11/2018) History of kidney surgery Hx of bilateral breast reduction surgery Hx of appendectomy History of cholecystectomy (~2003) H/O lithotripsy (04/30/24) Social History Social History Household Members: Spouse Household Members Other:: daughter Housing: Apartment Are you a primary hospice home care coordinator to a significant other at home: No Do you presently have visiting nurse or other home services: No Alcohol intake: never Patient Tobacco Use Status: Former Tobacco user Tobacco use type: Cigarette Years Smoked: 15 e-Cigarette/Vaping Use: Never Used Second Hand Smoke Exposure: Yes Substance Use Type: Marijuana Have you been hit, kicked, punched, or otherwise hurt by someone within the past year? If so, by whom?: No Are you DNR?: No Advance Directives: No Advance Directives Information Provided: Yes service: No Current occupational status: disabled Current occupation: right handed Sexual orientation: Straight/Heterosexual Gender identity: Female Cognitive needs: No Hearing needs: No Vision needs: Yes Meds Allergies Allergy/AdvReac Type Severity Reaction Status Date / Time pineapple (PINEAPPLE) Allergy Severe ANAPHYLAXIS Verified 11/17/24 09:01 adhesive tape Allergy Intermediate Blister Verified 11/17/24 09:01 Iodinated Contrast Media (IV Allergy Intermediate SOB,RASH Verified 11/17/24 09:01 Dye, Iodine Containing) levofloxacin (From Levaquin) Allergy Intermediate swelling/ra Verified 11/17/24 09:01 sh oxycodone (From Percocet) Allergy Intermediate rash/SOB Verified 11/17/24 09:01 aspirin (ASA) AdvReac Mild UPSET Verified 11/17/24 09:01 STOMACH Exam Airway Mallampati Class: I TM Dist: >3cm Neck ROM: Full Adult Head Mouth w/Numbe Teeth:  1. Missing Loose/Missing/Broken Teeth: Yes Heart: RRR Lungs: CTAB vesicular Assessment and Plan Assessment Anesthesia Assessment: Anesthesia Plan Discussed Final Anesthetic Review NPO: Yes ASA Class: II and III Final Preanesthetic Review: No Changes in Pt Med Stat, Meds/Allgs Chart Reviewed, Consent Obtained/Reviewed and Anes Risks/Benef Reviewed Patient Risk: Low Procedure Risk: Low Anesthetic Plan Anesthetic Plan: GA Disposition: Standard PACU
--- NOTE | ~2024-11-26 | XR_ITS ---
EXAMINATION: XR ABDOMEN KUB CLINICAL INDICATION: right renal stone COMPARISON: CT abdomen pelvis 09/12/2024 TECHNIQUE: AP view of the abdomen. FINDINGS: There is bowel gas and stool overlying the right kidney pelvis where a radiopaque calculi was seen on the recent CT abdomen exam 09/12/2024. No radiopaque calculus in left kidney. There are surgical clary in upper quadrant from cholecystectomy. There is scattered stool in ascending and transverse colon. There are multiple phleboliths in left pelvis. No gross bony abnormality seen. XR/XR KUB IMPRESSION: Moderate stool and gas overlying the right kidney restricting kidney stone evaluation. Previous CT visualized radiopaque calculi mid to lower pole right kidney is not visualized on the present exam. Electronically signed by: David Baez MD 11/26/2024 07:25 AM EDT
[2024-11-26 06:29] VITALS: BP 151/101; PULSE 100; RESP 18; TEMP 36.6; O2SAT 97; BMI 37.5
[2024-11-26] MEDS: Lactated Ringers 1,000 ML 100 ML IVCONT (06:54)
--- NOTE | 2024-11-26 07:37 | MHC.SHP ---
Pre-Procedural Eval Section A - 24 Hr Update-Section A only Date of Service: 11/26/24 The patient is an INPATIENT: No The patient has been examined within 24 hours of the surgical procedure. The History & Physical has been completed within 30 days and I have reviewed it.: Yes Section B - Complete if H&P > 30 days Chief Complaint: Calculus of kidney, right Allergies: Allergies Allergy/AdvReac Type Severity Reaction Status Date / Time pineapple (PINEAPPLE) Allergy Severe ANAPHYLAXIS Verified 11/17/24 09:01 adhesive tape Allergy Intermediate Blister Verified 11/17/24 09:01 Iodinated Contrast Media (IV Allergy Intermediate SOB,RASH Verified 11/17/24 09:01 Dye, Iodine Containing) levofloxacin (From Levaquin) Allergy Intermediate swelling/ra Verified 11/17/24 09:01 sh oxycodone (From Percocet) Allergy Intermediate rash/SOB Verified 11/17/24 09:01 aspirin (ASA) AdvReac Mild UPSET Verified 11/17/24 09:01 STOMACH Plan Diagnosis/Plan: Unchanged I have reviewed the history and physical and performed a pertinent physical examination on my patient. No changes have occurred unless specified. Right ESWL. Discussed risks to include but not limited to, blood in the urine, bruising to the skin, kidney hematoma, possible need for another procedure if a stone fragment obstructs the ureter while passing, possible need to repeat procedure if stone is not completely fragmented. Time Spent With Patient Time: Total time managing care of this patient today ____ minutes.
--- NOTE | 2024-11-26 07:38 | W.PM.OPN ---
Operative Note Operative Note Date of Service: 11/26/24 Narrative: PreOperative Diagnosis:? ? Right Renal stone Post Operative Diagnosis:?Right? Renal stone Procedure:?Right? ESWL Surgeon:?Dr Blanca Lujan Anesthesia:? General Indications for procedure: The patient understands there is a risk of bruising or hematoma to the kidney, infection, and stone migration following the procedure and subsequent intervention may be required.? - Imaging 6x7 mm stone Procedure: After informed consent was verified the patient was brought to the operating room and placed in a supine position.? Anesthesia was performed per protocol. Safety pause time-out was performed. Imaging was displayed in the room and laterality confirmed. ESWL was performed.?The stone was visualized on ultrasound.? Shockwave lithotripsy was performed, with a maximum rate of 120 hertz. A total of 2500 shocks to a maximum of power of 18. Good fragmentation of the stone was appreciated. The patient tolerated the procedure well and was transferred to the recovery area upon completion. Complications: None
[2024-11-26 08:29] VITALS: BP 179/104; PULSE 77; RESP 22; TEMP 36.4; O2SAT 90
[2024-11-26 08:34] VITALS: BP 173/96; PULSE 75; RESP 21; O2SAT 88
[2024-11-26 08:39] VITALS: BP 159/95; PULSE 67; RESP 18; O2SAT 90
[2024-11-26 08:44] VITALS: BP 170/96; PULSE 69; RESP 19; O2SAT 96
[2024-11-26 09:00] VITALS: O2SAT 96
== END 2024-11-26 09:21 | disposition home or self-care (01) ==
PROVIDERS: PCP Physician Assistant; Visit Provider Urology
PROC: (CPT 50590; principal; 2024-11-26 07:30)
DX: N20.0 Calculus of kidney (principal); I10 Essential (primary) hypertension; J45.50 Severe persistent asthma, uncomplicated; G47.33 Obstructive sleep apnea (adult) (pediatric); Z86.73 Personal history of transient ischemic attack (TIA), and cerebral infarction without residual deficits; Z79.899 Other long term (current) drug therapy; Z88.5 Allergy status to narcotic agent; Z88.6 Allergy status to analgesic agent; Z88.1 Allergy status to other antibiotic agents; Z91.041 Radiographic dye allergy status; Z91.018 Allergy to other foods
CPT/HCPCS: 50590; 74018; J0690; J1100; J1938; J2003; J2405; J2704; J3010

== ENCOUNTER → 2024-11-26 06:13 | Outpatient (BNV) | payer OTHER, SELFPAY | PROVIDERS: PCP Physician Assistant; Visit Provider Urology | DX: N20.0 Calculus of kidney (principal) | CPT/HCPCS: 50590 ==

== ENCOUNTER → 2024-12-17 07:46 | Outpatient (REF) | payer OTHER, SELFPAY ==
--- NOTE | ~2024-12-17 | NM_ITS ---
EXAMINATION: VT RADIONUCLIDE SOLID FOOD GASTRIC EMPTYING 4-HOUR STUDY CLINICAL INFORMATION: R68.81 - Early satiety COMPARISON: There are no prior studies available for comparison. TECHNIQUE: A standard meal consisting of 4 oz of Egg Beaters brand tagged with 1.0 mCi Tc-99m Sulfur Colloid, 6 oz water and 2 slices of toast with jelly was administered orally to the patient. Images were obtained using a dual head gamma camera in the anterior and posterior projections over of the stomach immediately post ingestion and at hourly intervals up to 4 hours post ingestion. The anterior and posterior counts at each time interval were averaged using the geometric mean and expressed as percentage of the immediate post ingestion counts. FINDINGS: There is visualization of activity in the stomach immediately post ingestion. As the study progresses, there is clearance of activity from the stomach and visualization of progressively increasing small bowel activity. By the end of the study, there is almost no retention noted in the stomach. Retention in the stomach at each time interval was: 1 hour 77% (normal 37%-90%) 2 hours 53% (normal 30%-60%) 3 hours 23% 4 hours 16% (normal 0%-10%) VT/VT gastric emptying study IMPRESSION: Mildly delayed gastric emptying. For solid meal, rapid gastric emptying is less than 30% at 60 minutes. Delayed gastric emptying criteria is more than 60% remaining at 120 minutes or more than 10% at 240 minutes. The 4-hour value is the best discriminator of a normal or abnormal result). Gastric emptying study grading per JNMT Consensus Recommendations in 2008 (https://tech.snmjournals.org/content/36/1/44) Grade 1 (mild retention): 11-20% at 4h Grade 2 (moderate retention): 21-35% at 4h Grade 3 (severe retention): 36-50% at 4h Grade 4 (very severe retention): >50% retention at 4h Electronically signed by: Rainer Munson MD 12/17/2024 12:48 PM EDT
--- OUTSIDE RECORDS SUMMARY | 2024-12-17 07:48 | XMS_ITS | Clinical Summary ---
Author Organization [facility] Address [address] [place] [id number] Phone Care Team Providers Care Iron Miner Blasting Name Role Phone Unavailable Primary Care Provider [...] It is not the complete legal health record.[facility]
--- OUTSIDE RECORDS SUMMARY | 2024-12-17 07:48 | XMS_ITS | Clinical Summary ---
Author Organization [facility] Address [address] [place] [address], [place] [address] Care Team Providers Care Gunner'S Mate Name Role Phone Naomi Bains MD Primary [...] 2021 Influenza Vaccine (#1) 2024 Insurance [employer] [place] [id number] [facility] [place] [id number] [facility] [place] [phone] Care Teams Gunner'S Mate Relationship Specialty Start Date End Date Naomi Bains MD [address] [place] [id number] PCP - General 03/08/20
== END ==
LOC: HO.NUCMED 07:46
PROVIDERS: PCP Physician Assistant; Visit Provider Internal Medicine Gastroenterology
DX: R68.81 Early satiety (principal)
CPT/HCPCS: 78264; A9541

== ENCOUNTER → 2024-12-17 07:47 | Outpatient (BNV) | payer OTHER, SELFPAY | PROVIDERS: PCP Physician Assistant; Visit Provider Radiology Diagnostic Radiology | DX: R68.81 Early satiety (principal) | CPT/HCPCS: 78264 ==

== ENCOUNTER 2024-12-22 08:52 | Outpatient (AMB) | payer OTHER, SELFPAY ==
[2024-12-22 09:00] VITALS: BP 160/104; PULSE 88; O2SAT 97
--- NOTE | 2024-12-22 09:00 | MHC.OFFVIS ---
Vital Signs 12/22/24 09:00 Weight 222 lb BP 160/104 H Blood Pressure Location Rt brachial Position Sitting Pulse 88 Pulse Source Pulse Oximeter Pulse Oximetry (%) 97 Oxygen Delivery Method Room Air Intake Visit Reasons: asthma Allergies pineapple (PINEAPPLE) Allergy (Severe, Verified 11/17/24 09:01) ANAPHYLAXIS adhesive tape Allergy (Intermediate, Verified 11/17/24 09:01) Blister Iodinated Contrast Media (IV Dye, Iodine Containing) Allergy (Intermediate, Verified 11/17/24 09:01) SOB,RASH levofloxacin (From Levaquin) Allergy (Intermediate, Verified 11/17/24 09:01) swelling/rash oxycodone (From Percocet) Allergy (Intermediate, Verified 11/17/24 09:01) rash/SOB aspirin (ASA) Adverse Reaction (Mild, Verified 11/17/24 09:01) UPSET STOMACH HPI HPI asthma: Details: 54-year-old lady with underlying severe persistent allergic asthma and environmental allergies. She has been using Xolair, Symbicort, duo nebs, and albuterol MDI with good control of her symptoms. Her sleep study has been delayed and is still pending. She does complain of approximately one-week history of nonproductive cough that appears to be related to an upper respiratory infection. [facility] Medical History At high risk for breast cancer Atypical ductal hyperplasia of left breast Migraines Dysphagia Hx of flexible sigmoidoscopy Internal derangement of right shoulder Lump of left breast Chronic constipation Rotator cuff impingement syndrome of left shoulder Colitis Rotator cuff impingement syndrome Lateral epicondylitis of both elbows IBS (irritable bowel syndrome) Tendinopathy of left rotator cuff History of TIA (transient ischemic attack) Hypercholesterolemia Vitamin D deficiency Multinodular thyroid Pancreatic cyst Thyroid nodule GERD (gastroesophageal reflux disease) Hypertension Asthma Kidney stones Fibromyalgia Allergic rhinitis Sciatic nerve pain Ovarian cyst Hypothyroidism Surgical History History of carpal tunnel release (09/25/24) History of arthroscopic surgery of shoulder Hx of eye surgery History of breast lump/mass excision Hx of hemorrhoidectomy Hx of tubal ligation History of esophagogastroduodenoscopy (EGD) History of colonoscopy (~11/16/19) H/O: hysterectomy History of thyroidectomy (~11/2018) History of kidney surgery Hx of bilateral breast reduction surgery Hx of appendectomy History of cholecystectomy (~2003) H/O lithotripsy (04/30/24) Family History Father Family history of high blood pressure History of high cholesterol Mother History of diabetes mellitus Family history of high blood pressure Family history of asthma History of fibromyalgia Liver disease Maternal Grandfather Colon cancer Family/Other Breast cancer Maternal Aunt Breast cancer Family/Other Breast cancer Social History Household Members: Spouse Household Members Other:: daughter Housing: Apartment Are you a primary career information specialist to a significant other at home: No Do you presently have visiting nurse or other home services: No Alcohol intake: never Patient Tobacco Use Status: Former Tobacco user Tobacco use type: Cigarette Years Smoked: 15 e-Cigarette/Vaping Use: Never Used Second Hand Smoke Exposure: Yes Substance Use Type: Marijuana service: No Current occupational status: disabled Current occupation: right handed Sexual orientation: Straight/Heterosexual Gender identity: Female Cognitive needs: No Hearing needs: No Vision needs: Yes Female Reproductive History Menstrual Age of Menarche: 10 Review of Systems Const Denies daytime sleepiness, Denies excessive sweating, Denies fatigue, Denies fever(s), Denies lethargy, Denies malaise, Denies night sweats, Denies snoring and Denies weight loss Eyes Denies blurry vision and Denies itchy eyes ENT Denies nasal congestion, Denies post nasal drip, Denies sinus pain, Denies sinus pressure and Denies other ( Thrush) Card Denies chest pain, Denies pedal edema, Denies dyspnea, Denies orthopnea and Denies paroxysmal nocturnal dyspnea Resp Reports cough, Denies hemoptysis, Denies excessive phlegm production, Denies dyspnea, Denies snoring and Denies wheezing GI Denies abdominal pain and Denies heartburn Musc Denies myalgias, Denies arthralgias and Denies joint swelling Skin/Breast Denies rash Neuro Denies memory loss and Denies seizure-like activity Psych Denies abnormal sleep pattern, Denies anxiety and Denies memory loss Endo Denies excessive sweating, Denies fatigue and Denies heat intolerance Chuy/Lymph Denies easy bruising Aller/Immun Denies itchy eyes, Denies seasonal rhinorrhea and Denies wheezing Physical Exam Vital Signs: Last Vital Signs Pulse 88 12/22/24 09:00 BP 160/104 H 12/22/24 09:00 Pulse Ox 97 12/22/24 09:00 Oxygen Delivery Method Room Air 12/22/24 09:00 Const General: no acute distress and alert Nutritional Appearance: not obese Orientation/consciousness: Other orientation findings ( oriented) HEENT Head: Yes atraumatic Eyes General: appearance normal, both eyes and all related structures Sclerae: sclerae normal EOM: EOMs intact bilaterally Neck Neck: Yes supple Lymphatic: no lymphadenopathy noted Resp Effort & Inspection: normal respiratory effort and no use of accessory muscles Auscultation: clear to auscultation bilaterally Cardio Rate: regular rate Rhythm: regular rhythm Heart sounds: no gallops, no murmurs and no rubs Skin General skin exam: other ( warm) Extrem General: No clubbing, No cyanosis and No edema Assessment & Plan Assessment & Plan (1) Severe persistent asthma: Code(s): J45.50 - Severe persistent asthma, uncomplicated Category: Medical Qualifiers: Asthma complication type: with acute exacerbation Qualified Code(s): J45.51 - Severe persistent asthma with (acute) exacerbation Plan: Well controlled on current regimen of Xolair, Symbicort, and albuterol MDI/nebs. Continue current regimen. (2) JULISA (obstructive sleep apnea): Code(s): G47.33 - Obstructive sleep apnea (adult) (pediatric) Category: Medical Plan: Sleep study is still pending. (3) Environmental allergies: Code(s): Z91.09 - Other allergy status, other than to drugs and biological substances Category: Medical Plan: Well controlled on Xolair nasal ipratropium. Continue current regimen. Coding Level of Care Code Est Pt Level 4 (91965) Complex EM visit Add On G2211 Diagnoses Severe persistent asthma with acute exacerbation J45.51 Asthma complication type: with acute exacerbation JULISA (obstructive sleep apnea) G47.33 Environmental allergies Z91.09
--- OUTSIDE RECORDS SUMMARY | 2024-12-22 09:31 | XMS_ITS | Clinical Summary ---
Author Organization [facility] Address [address] [place] [phone] Phone Care Team Providers Care Radiator Specialist Name Role Phone Unavailable Primary Care Provider [...] It is not the complete legal health record.[facility]
== END 2024-12-22 09:17 | disposition home or self-care (01) ==
LOC: HO.HPS 08:53
PROVIDERS: PCP Internal Medicine; Visit Provider Internal Medicine Pulmonary Disease
DX: J45.51 Severe persistent asthma with (acute) exacerbation (principal); G47.33 Obstructive sleep apnea (adult) (pediatric); Z91.09 Other allergy status, other than to drugs and biological substances
CPT/HCPCS: 99214

== ENCOUNTER → 2024-12-22 08:52 | Outpatient (BNVA) | payer OTHER, SELFPAY | PROVIDERS: PCP Internal Medicine; Visit Provider Internal Medicine Pulmonary Disease | DX: J45.51 Severe persistent asthma with (acute) exacerbation (principal); G47.33 Obstructive sleep apnea (adult) (pediatric); Z91.09 Other allergy status, other than to drugs and biological substances | CPT/HCPCS: 99212 ==

== ENCOUNTER → 2024-12-23 10:29 | Outpatient (BNV) | payer OTHER, SELFPAY | PROVIDERS: PCP Physician Assistant; Visit Provider Internal Medicine | DX: N63.21 Unspecified lump in the left breast, upper outer quadrant (principal) | CPT/HCPCS: 77049 ==

== ENCOUNTER 2024-12-23 10:30 | Outpatient (REF) | payer OTHER, SELFPAY ==
--- NOTE | ~2024-12-23 | MR_ITS ---
EXAMINATION: MR BREAST WITHOUT AND WITH CONTRAST, BILATERAL CLINICAL INFORMATION: Left upper outer quadrant palpable lump with benign mammogram and ultrasound. COMPARISON: Comparison is made with relevant prior imaging. TECHNIQUE: MR imaging of the breast was performed using T1, T2 and fat saturated techniques. Dynamic multiphase imaging was also performed after the administration of intravenous gadolinium contrast agent. Computer generated 3D reconstruction and enhancement kinetic analysis was ulitized by the radiologist in the interpretation of this examination. FINDINGS: Breast composition: Heterogeneous fibroglandular breast tissue Background parenchymal enhancement: Moderate LEFT BREAST: There is an area of architectural distortion in the upper outer breast Measuring 40 mm anterior to posterior by 31 mm superior to inferior by 10 mm transverse this area could represent postsurgical changes of reduction mammoplasty however it is asymmetric from the contralateral side. This area correlates with the area the patient's palpable lump. This area is best seen on sagittal images series #23 images 1 84-1 96. Axial series 109 for images 69-78. No other suspicious enhancing masses or areas of non mass enhancement. No axillary or internal mammary adenopathy. RIGHT BREAST: No suspicious enhancing masses or areas of non mass enhancement. No axillary or internal mammary adenopathy. Limited views of the chest and abdomen are unremarkable. MR/MR breast BI wo/w con IMPRESSION: Right: Negative. Left: Area of architectural distortion the upper outer quadrant 4 to 6 cm from the nipple which correlates with the area the patient's palpable lump. While this area could represent post surgical changes from reduction mammoplasty this area is asymmetric from the right side and new from prior MRI 2012. Recommend MRI guided core needle biopsy at this time for confirmation. ASSESSMENT: LEFT BREAST: BI-RADS 4-Suspicious RIGHT BREAST: BI-RADS 1-Negative RECOMMENDATIONS: MRI guided core needle biopsy left upper outer breast. Yearly screening mammography. Electronically signed by: Ariane Sims DO 12/23/2024 05:50 PM EDT RP
--- OUTSIDE RECORDS SUMMARY | 2024-12-23 13:09 | XMS_ITS | Clinical Summary ---
Author Organization [facility] Address [address] [place] [address], [place] [address] Care Team Providers Care Inspecting And Testing Lead Hand Name Role Phone Naomi Bains MD Primary [...] Vaccine (#1) 2024 [facility] [place] [id number] [facility] Medicaid [facility] Medicaid Care Teams Inspecting And Testing Lead Hand Relationship Specialty Start Date End Date Naomi Bains MD [address] [place] [phone] PCP - General 03/08/20
== END 2024-12-23 10:31 | disposition home or self-care (01) ==
LOC: HO.MRI 10:30
PROVIDERS: PCP Physician Assistant; Visit Provider Surgery
DX: N60.92 Unspecified benign mammary dysplasia of left breast (principal); Z91.89 Other specified personal risk factors, not elsewhere classified
CPT/HCPCS: 77049; A9585

== ENCOUNTER 2024-12-31 08:27 | Outpatient (AMB) | payer OTHER, SELFPAY ==
--- NOTE | 2024-12-31 08:32 | A.OFFVIS_ITS ---
Vital Signs 12/31/24 08:35 Height 5 ft 5 in Weight 224 lb 13.944 oz BMI 37.4 BP 132/78 Blood Pressure Location Rt brachial Position Sitting Pulse 76 Pulse Source Pulse Oximeter Pulse Oximetry (%) 95 Oxygen Delivery Method Room Air Intake Visit Reasons: Post-surgical hypothyroidism- pt Intake Note: Patient presents here today for Post-surgical Hypothyroidism follow-up after completion of work-up. Patient of DR Irina Beckford MD. Knockdown Worker Required: No Accompanied by: Self / Same As Patient Allergies pineapple (PINEAPPLE) Allergy (Severe, Verified 12/31/24 08:36) ANAPHYLAXIS adhesive tape Allergy (Intermediate, Verified 12/31/24 08:36) Blister Iodinated Contrast Media (IV Dye, Iodine Containing) Allergy (Intermediate, Verified 12/31/24 08:36) SOB,RASH levofloxacin (From Levaquin) Allergy (Intermediate, Verified 12/31/24 08:36) swelling/rash oxycodone (From Percocet) Allergy (Intermediate, Verified 12/31/24 08:36) rash/SOB aspirin (ASA) Adverse Reaction (Mild, Verified 12/31/24 08:36) UPSET STOMACH Medication List - Last Reconciled 12/31/24 by Ana Rivas MD amlodipine 10 mg PO DAILY atorvastatin (Lipitor) 10 mg PO DAILY Bifidobacterium longum (Align (B.longum)) 1 capsule orally daily; 30 days budesonide-formoterol 160-4.5 mcg/actuation (Symbicort) 2 puffs inhalation BID cholecalciferol (vitamin D3) (Vitamin D3) 50 mcg PO DAILY cyclobenzaprine 10 mg PO BEDTIME 15 days diclofenac sodium 50 mg PO DAILY 30 days diphenhydramine HCl (Benadryl Allergy) 25 mg orally one tablet this evening and one tablet tomorrow am; docusate sodium 100 mg PO BID famotidine 20 mg PO BEDTIME PRN hydrochlorothiazide 25 mg PO DAILY hydrocodone-acetaminophen 5-325 mg 1 tab PO Q8H PRN ipratropium bromide 2 sprays intranasal TID 30 days ipratropium-albuterol 0.5 mg-3 mg(2.5 mg base)/3 mL 3 mL inhalation Q4-6H PRN levothyroxine 200 mcg PO DAILY lisinopril 40 mg PO DAILY 90 days lorazepam 1 mg PO ONCE PRN metoprolol tartrate 100 mg PO BID 90 days mupirocin 2% 1 appl topical BID 30 days omalizumab (Xolair) 300 mg (2 mL) subcut Q2W omeprazole 40 mg (2 x 20 mg) PO DAILY ondansetron 4 mg PO Q8H PRN 30 days pyridoxine (vitamin B6) 100 mg PO DAILY tamsulosin (Flomax) 0.4 mg PO BEDTIME tramadol 50 mg PO Q8H PRN Ventolin HFA 90 mcg/actuation (albuterol sulfate) 2 puffs inhalation Q4-6H PRN 30 days NS vonoprazan (Voquezna) 20 mg PO DAILY 8 weeks HPI Comments Details: 53 YO Female with PMHx HTN, breast cancer in remission who is seen in F/U for postsurgical hypothyroidism after she underwent a total thyroidectomy 12/04/2018 for a multinodular thyroid. Previously seen by Dr. Beckford on 07/22/24. This is my first tinme seen this patient HPI from prior visits Surgery was uncomplicated, but the L inferior parathyroid gland did need to be re-implanted. 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 Interval history LT4 to 225 mcg around 2 months ago She reports being consistent with taking her medication, although she forgets 1- 2x/week Takes the medication fasting, separate from food and other meds energy: bad. Sleep poorly, can't fall sleep gi: reports diarrhea/constipation- possible IBS per GI Hair/nails: hair falling a lot Dry: skin Odynophagia/Dysphagia: yes Physical exam General: Well appearing. NAD. Not Cushingoid or Acromegalic Eyes: No conjunctival injection, not lid lag or proptosis CV: RRR, no murmur. No edema. Resp:Lungs clear to auscultation bilaterally Extremities/Neuro: No weakness or tremor of outstretched hands Laboratory Tests 07/22/24 09/12/24 11/17/24 09:38 08:10 09:46 TSH 22.65 H 52.36 H 41.41 H Free T4 0.75 0.44 L < 0.42 L PFSH Medical History At high risk for breast cancer Atypical ductal hyperplasia of left breast Migraines Dysphagia Hx of flexible sigmoidoscopy Internal derangement of right shoulder Lump of left breast Chronic constipation Rotator cuff impingement syndrome of left shoulder Colitis Rotator cuff impingement syndrome Lateral epicondylitis of both elbows IBS (irritable bowel syndrome) Tendinopathy of left rotator cuff History of TIA (transient ischemic attack) Hypercholesterolemia Vitamin D deficiency Multinodular thyroid Pancreatic cyst Thyroid nodule GERD (gastroesophageal reflux disease) Hypertension Asthma Kidney stones Fibromyalgia Allergic rhinitis Sciatic nerve pain Ovarian cyst Hypothyroidism Surgical History History of carpal tunnel release (09/25/24) History of arthroscopic surgery of shoulder Hx of eye surgery History of breast lump/mass excision Hx of hemorrhoidectomy Hx of tubal ligation History of esophagogastroduodenoscopy (EGD) History of colonoscopy (~11/16/19) H/O: hysterectomy History of thyroidectomy (~11/2018) History of kidney surgery Hx of bilateral breast reduction surgery Hx of appendectomy History of cholecystectomy (~2003) H/O lithotripsy (04/30/24) Family History Father Family history of high blood pressure History of high cholesterol Mother History of diabetes mellitus Family history of high blood pressure Family history of asthma History of fibromyalgia Liver disease Maternal Grandfather Colon cancer Family/Other Breast cancer Maternal Aunt Breast cancer Family/Other Breast cancer Social History Household Members: Spouse Household Members Other:: daughter Housing: Apartment Are you a primary resident care director to a significant other at home: No Do you presently have visiting nurse or other home services: No Alcohol intake: never Patient Tobacco Use Status: Former Tobacco user Tobacco use type: Cigarette Years Smoked: 15 e-Cigarette/Vaping Use: Never Used Second Hand Smoke Exposure: Yes Substance Use Type: Marijuana service: No Current occupational status: disabled Current occupation: right handed Sexual orientation: Straight/Heterosexual Gender identity: Female Cognitive needs: No Hearing needs: No Vision needs: Yes Female Reproductive History Menstrual Age of Menarche: 10 Physical Exam Vital Signs: Last Vital Signs Pulse 76 12/31/24 08:35 BP 132/78 12/31/24 08:35 Pulse Ox 95 12/31/24 08:35 Oxygen Delivery Method Room Air 12/31/24 08:35 BMI result Body Mass Index 37.4 Assessment & Plan Assessment & Plan (1) Post-surgical hypothyroidism: Code(s): E89.0 - Postprocedural hypothyroidism Category: Medical Plan: 53-year-old female with postsurgical hypothyroidism who had been out of her medication for 4 months, now back on levothyroxine 175 mcg capsule daily. Reports improved symptoms.. She has not tolerated the levothyroxine tablets in the past, due to worsening acid reflux with a history of gastritis and she could not tolerate taking the tablets. She has a history of persistence GI issues, including diarrhea/constipation, recently diagnosed by her GI doctor with IBS with constipation and diarrhea, which we suspect is the reason why she is having absorption issues and requiring a higher dose of levothyroxine. We think that changing the formulation from tablets/capsules to oral solution might improve absorption and decrease the required levothyroxine dose. Was spent with the patient that levothyroxine is a long acting medication, and overall what is important is the 7 days cumulative levothyroxine dose. Plan: Change levothyroxine 225 mcg oral tablets to 200 mcg oral solution Repeat TSH free T4 in 6 weeks She is advised that in case of missing those 1 day, she can double the dose the next day, and similarly if she is having significant GI distress (nausea, vomiting or diarrhea), she may skip the dose that day and the ball of the next day. -follow up in 3 months Plan 30 minutes spent reviewing previous records, labs, imaging, education and do cumenting in the chart Orders: Orders TSH reflex Free T4 6 Weeks E89.0 - Postprocedural hypothyroidism Free T4 (Free Thyroxine) 6 Weeks E89.0 - Postprocedural hypothyroidism Medications: New levothyroxine Take 1 ml (200mcg) of levothyroxine daily, fasting, by at least 1 hour from other meds or food 200 mcg PO DAILY 30 mL 3RF E89.0 - Postprocedural hypothyroidism Discontinued Tirosint (levothyroxine) Take 200 mcg capsule along with 25 mcg capsule to amount for 225 mcg daily Brand name only, no substitution allowed [id number] Discontinued Reason: Doctor's Order 200 mcg PO DAILY 90 caps 2RF NS Tirosint (levothyroxine) Take 200 mcg capsule along with 25 mcg capsule daily to account for 225 mcg daily Brand name only No substitution allowed GENA 0 Discontinued Reason: Doctor's Order 25 mcg PO DAILY 90 caps 2RF NS Coding Level of Care Code Est Pt Level 4 (30171) Diagnoses Post-surgical hypothyroidism E89.0
[2024-12-31 08:35] VITALS: BP 132/78; PULSE 76; O2SAT 95; BMI 37.4
--- OUTSIDE RECORDS SUMMARY | 2024-12-31 08:39 | XMS_ITS | Clinical Summary ---
Author Organization [facility] Address [address] [place] [phone] Phone Care Team Providers Care Wall Covering Installer Name Role Phone Unavailable Primary Care Provider [...] It is not the complete legal health record.[facility]
== END 2024-12-31 09:07 | disposition home or self-care (01) ==
LOC: HO.ENCR 08:28
PROVIDERS: PCP Physician Assistant; Visit Provider Student in an Organized Health Care Education/Training Program
DX: E89.0 Postprocedural hypothyroidism (principal)
CPT/HCPCS: 99214

== ENCOUNTER → 2024-12-31 08:27 | Outpatient (BNVA) | payer OTHER, SELFPAY | PROVIDERS: PCP Physician Assistant; Visit Provider Student in an Organized Health Care Education/Training Program | DX: E89.0 Postprocedural hypothyroidism (principal); K58.2 Mixed irritable bowel syndrome; Z79.899 Other long term (current) drug therapy | CPT/HCPCS: 99212 ==

== ENCOUNTER 2025-01-05 09:26 | Outpatient (AMB) | payer OTHER, SELFPAY ==
[2025-01-05 09:32] VITALS: BP 140/90; BMI 37.6
--- NOTE | 2025-01-05 09:32 | HO.NEPHOV ---
Vital Signs 01/05/25 09:32 Height 5 ft 5 in Weight 226 lb BMI 37.6 BP 140/90 H Blood Pressure Location Rt brachial Position Sitting Intake Visit Reasons: 6 MO- Confirmed Cloud Architect Required: No Accompanied by: Self / Same As Patient Allergies pineapple (PINEAPPLE) Allergy (Severe, Verified 01/05/25 09:35) ANAPHYLAXIS adhesive tape Allergy (Intermediate, Verified 01/05/25 09:35) Blister Iodinated Contrast Media (IV Dye, Iodine Containing) Allergy (Intermediate, Verified 01/05/25 09:35) SOB,RASH levofloxacin (From Levaquin) Allergy (Intermediate, Verified 01/05/25 09:35) swelling/rash oxycodone (From Percocet) Allergy (Intermediate, Verified 01/05/25 09:35) rash/SOB aspirin (ASA) Adverse Reaction (Mild, Verified 01/05/25 09:35) UPSET STOMACH Medication List - Last Reconciled 01/05/25 by Contreras Deutsch MD amlodipine 10 mg PO DAILY atorvastatin (Lipitor) 10 mg PO DAILY Bifidobacterium longum (Align (B.longum)) 1 capsule orally daily; 30 days budesonide-formoterol 160-4.5 mcg/actuation (Symbicort) 2 puffs inhalation BID cholecalciferol (vitamin D3) (Vitamin D3) 50 mcg PO DAILY cyclobenzaprine 10 mg PO BEDTIME 15 days diclofenac sodium 50 mg PO DAILY 30 days diphenhydramine HCl (Benadryl Allergy) 25 mg orally one tablet this evening and one tablet tomorrow am; docusate sodium 100 mg PO BID famotidine 20 mg PO BEDTIME PRN hydrochlorothiazide 25 mg PO DAILY hydrocodone-acetaminophen 5-325 mg 1 tab PO Q8H PRN ipratropium bromide 2 sprays intranasal TID 30 days ipratropium-albuterol 0.5 mg-3 mg(2.5 mg base)/3 mL 3 mL inhalation Q4-6H PRN levothyroxine 200 mcg PO DAILY lisinopril 40 mg PO DAILY 90 days lorazepam 1 mg PO ONCE PRN metoprolol tartrate 100 mg PO BID 90 days mupirocin 2% 1 appl topical BID 30 days omalizumab (Xolair) 300 mg (2 mL) subcut Q2W omeprazole 40 mg (2 x 20 mg) PO DAILY ondansetron 4 mg PO Q8H PRN 30 days pyridoxine (vitamin B6) 100 mg PO DAILY tamsulosin (Flomax) 0.4 mg PO BEDTIME tramadol 50 mg PO Q8H PRN Ventolin HFA 90 mcg/actuation (albuterol sulfate) 2 puffs inhalation Q4-6H PRN 30 days NS vonoprazan (Voquezna) 20 mg PO DAILY 8 weeks HPI Comments Details: Ivonne is a middle aged woman with a history of renal stones. She is multiple medical problems including migraine. She has been on Topamax for quite some time. Recently she had imaging studies which showed 5 mm stone on the right kidney and and a 3 mm stone in the left kidney. There was mild left-sided hydronephrosis She has been followed by urologist as well She complains of back pain. She has some burning while urinating. No hematuria. She has not passed any kidney stones. No fever no rash. No edema. 01/21/24 ;c/o back pain on and off ;NO urinary symptoms ; follow up in Feb 2024 with USG 07/07/24 Still with back pain ; s/p ESWL in April 2024 Says she is not taking Topiramate anymore 01/05/25 The patient is a 54-year-old female presenting with follow-up for renal stones and hypertension management. The patient has a history of HTN,currently managing hypertension with medications including amlodipine, hydrochlorothiazide, and lisinopril. She reports her blood pressure is slightly elevated today, despite adherence to a low-sodium diet and medication regimen. Recently, the patient underwent an MRI of the breast, which led to the removal of a lump and subsequent pathology revealing atypical cells. Further imaging and a biopsy are planned due to persistent findings on the same side of the breast. The patient has a history of kidney stones, which she has passed recently after lithotripsy treatment. [facility] Medical History At high risk for breast cancer Atypical ductal hyperplasia of left breast Migraines Dysphagia Hx of flexible sigmoidoscopy Internal derangement of right shoulder Lump of left breast Chronic constipation Rotator cuff impingement syndrome of left shoulder Colitis Rotator cuff impingement syndrome Lateral epicondylitis of both elbows IBS (irritable bowel syndrome) Tendinopathy of left rotator cuff History of TIA (transient ischemic attack) Hypercholesterolemia Vitamin D deficiency Multinodular thyroid Pancreatic cyst Thyroid nodule GERD (gastroesophageal reflux disease) Hypertension Asthma Kidney stones Fibromyalgia Allergic rhinitis Sciatic nerve pain Ovarian cyst Hypothyroidism Surgical History History of carpal tunnel release (09/25/24) History of arthroscopic surgery of shoulder Hx of eye surgery History of breast lump/mass excision Hx of hemorrhoidectomy Hx of tubal ligation History of esophagogastroduodenoscopy (EGD) History of colonoscopy (~11/16/19) H/O: hysterectomy History of thyroidectomy (~11/2018) History of kidney surgery Hx of bilateral breast reduction surgery Hx of appendectomy History of cholecystectomy (~2003) H/O lithotripsy (04/30/24) Family History Father Family history of high blood pressure History of high cholesterol Mother History of diabetes mellitus Family history of high blood pressure Family history of asthma History of fibromyalgia Liver disease Maternal Grandfather Colon cancer Family/Other Breast cancer Maternal Aunt Breast cancer Family/Other Breast cancer Social History Household Members: Spouse Household Members Other:: daughter Housing: Apartment Are you a primary senior care provider to a significant other at home: No Do you presently have visiting nurse or other home services: No Alcohol intake: never Patient Tobacco Use Status: Former Tobacco user Tobacco use type: Cigarette Years Smoked: 15 e-Cigarette/Vaping Use: Never Used Second Hand Smoke Exposure: Yes Substance Use Type: Marijuana service: No Current occupational status: disabled Current occupation: right handed Sexual orientation: Straight/Heterosexual Gender identity: Female Cognitive needs: No Hearing needs: No Vision needs: Yes Female Reproductive History Menstrual Age of Menarche: 10 Physical Exam Vital Signs: Last Vital Signs BP 140/90 H 01/05/25 09:32 BMI result Body Mass Index 37.6 Results Reviewed Nephrology Results: Hgb, (12.0-16.0) 14.5 g/dl 12/29/24 WBC, (4.8-10.8) 10.1 X10*3/uL 12/29/24 Plt Count, (160-400) 290 X10*3/uL 12/29/24 Sodium, (135-145) 140 mmol/L 12/29/24 Potassium, (3.3-5.1) 3.7 mmol/L 12/29/24 Chloride, (96-108) 106 mmol/L 12/29/24 Carbon Dioxide, (22-29) 26 mmol/L 12/29/24 BUN, (9-16) 14 mg/dL 12/29/24 Creatinine, (0.5-1.4) 0.67 mg/dL 12/29/24 Calcium, (8.4-10.2) 9.3 mg/dL 12/29/24 Renal US 06/04/24 Assessment & Plan Assessment & Plan (1) Kidney stones: Code(s): N20.0 - Calculus of kidney Category: Medical (2) Hypertension: Code(s): I10 - Essential (primary) hypertension Category: Medical Qualifiers: Hypertension type: essential hypertension Qualified Code(s): I10 - Essential (primary) hypertension Plan Middle aged woman with a history of migraine who has been on Topamax has had multiple renal stones. Topamax could be a contributing factor by inhibiting carbonic anhydrase and can precipitate forming stones. Discontinued Topamax. Stay on low-sodium diet. Increase p.o. fluid intake to maintain urine output of 2 L. Increase citrate ingestion. Decrease Oxalate intake- (Gave instructions) She could take Tylenol p.r.n. for back pain. Mild left hydro on sonogram in April 2023 REpeat USG in May 2024 shows mild fullness follow up sonogram in Sep was unremarkable s/p ESWL in Nov 2024 Follow up with HTN Meds reviewed Discussed weight loss Stay on low salt diet Coding Level of Care Code Est Pt Level 4 (01537) Diagnoses Kidney stones N20.0 Essential hypertension I10 Hypertension type: essential hypertension
--- OUTSIDE RECORDS SUMMARY | 2025-01-05 10:25 | XMS_ITS | Clinical Summary ---
Author Organization [facility] Address [address] [place] [phone] Phone Care Team Providers Care Door To Door Salesperson Name Role Phone Unavailable Primary Care Provider [...] It is not the complete legal health record.[facility]
--- OUTSIDE RECORDS SUMMARY | 2025-01-05 10:25 | XMS_ITS | Clinical Summary ---
Author Organization [facility] Address [address] [place] [address], [place] [address] Care Team Providers Care Resaw Carriage Operator Name Role Phone Naomi Bains MD [...] (#1) 2024 [place] [id number] [facility] Medicaid [facility] Medicaid Care Teams Resaw Carriage Operator Relationship Specialty Start Date End Date Naomi Bains MD [address] [place] [phone] PCP - General 03/08/20
== END 2025-01-05 09:49 | disposition home or self-care (01) ==
LOC: HO.HKA 09:26
PROVIDERS: PCP Physician Assistant; Visit Provider Internal Medicine Hypertension Specialist
DX: N20.0 Calculus of kidney (principal); I10 Essential (primary) hypertension
CPT/HCPCS: 99214

== ENCOUNTER → 2025-01-05 09:26 | Outpatient (BNVA) | payer OTHER, SELFPAY | PROVIDERS: PCP Physician Assistant; Visit Provider Internal Medicine Hypertension Specialist | DX: I10 Essential (primary) hypertension (principal); N20.0 Calculus of kidney; Z87.891 Personal history of nicotine dependence | CPT/HCPCS: 99212 ==

== ENCOUNTER 2025-01-08 08:16 | Outpatient (REF) | payer OTHER, SELFPAY ==
--- NOTE | ~2025-01-08 | XR_ITS ---
EXAMINATION: XR ABDOMEN KUB CLINICAL INDICATION: N20.0 - Calculus of kidney COMPARISON: X-ray 11/26/2024 TECHNIQUE: 2 AP views of the abdomen. FINDINGS: Nonspecific nonobstructive bowel gas pattern. Small-moderate volume stool. Status postcholecystectomy, with surgical clips. Surgical clips projected over the lower abdomen. The previously seen lobulated mineral density in the right mid abdomen is not visualized in today's study. No definite renal calculi identified by x-ray. Overlying bowel gas stool limiting evaluation. Redemonstrated phleboliths in the pelvis. No gross pneumoperitoneum on the supine views. Bilateral hemidiaphragms are not included in the [id number]. XR/XR KUB IMPRESSION: No definite nephrolithiasis is seen. Bowel gas and stool limiting evaluation. Electronically signed by: Abdiaziz Garnett MD 01/09/2025 07:32 AM [facility] [place]
--- NOTE | ~2025-01-08 | US_ITS ---
CLINICAL HISTORY: N20.0 - Calculus of kidney US Renal Comparison: 06/04/2024 Findings: Right kidney normal size and echotexture, 12.1 cm length. Left kidney normal size and echotexture, 12.6 cm length. Minimal hydronephrosis of bilateral kidney. Normal color Doppler IMPRESSION: 1. Minimal bilateral hydronephrosis. This document has been electronically signed by: Rolando Martínez MD on 01/09/2025 11:35:30
--- OUTSIDE RECORDS SUMMARY | 2025-01-08 08:33 | XMS_ITS | Clinical Summary ---
Author Organization [facility] Address [address] [place] [address] Phone Care Team Providers Care Power Saw Mechanic Name Role Phone Unavailable Primary Care Provider [...] It is not the complete legal health record.[facility]
--- OUTSIDE RECORDS SUMMARY | 2025-01-08 08:33 | XMS_ITS | Clinical Summary ---
Author Organization [facility] Address [address] [place] [address], [place] [address] Care Team Providers Care Vice President Commercial Bank Name Role Phone Naomi Bains MD Primary [...] 2021 Influenza Vaccine (#1) 2024 Insurance [facility] [id number] [facility] Medicaid [facility] Medicaid Care Teams Vice President Commercial [employer] Relationship Specialty Start Date End Date Naomi Bains MD [address] [place] [phone] PCP - General 03/08/20
== END 2025-01-08 08:17 | disposition home or self-care (01) ==
LOC: HO.US 08:16
PROVIDERS: PCP Physician Assistant; Visit Provider Urology
DX: N20.0 Calculus of kidney (principal)
CPT/HCPCS: 74018; 76775

== ENCOUNTER 2025-01-09 07:32 | Outpatient (AMB) | payer OTHER, SELFPAY ==
--- NOTE | 2025-01-09 07:35 | MHC.OFFVIS ---
Vital Signs 01/09/25 07:38 Height 5 ft 5 in Weight 224 lb BMI 37.3 BP 123/77 Blood Pressure Location Lt brachial Position Sitting Intake Visit Reasons: 3 month f/u Intake Note: Patient follow up for Early satiety and GES results. Patient cc: Abdominal pain with bloating, acid reflux, chronic constipation and some discomfort swallowing. Hospice/Home Health Aide Required: No Accompanied by: Self / Same As Patient Allergies pineapple (PINEAPPLE) Allergy (Severe, Verified 01/09/25 07:34) ANAPHYLAXIS adhesive tape Allergy (Intermediate, Verified 01/09/25 07:34) Blister Iodinated Contrast Media (IV Dye, Iodine Containing) Allergy (Intermediate, Verified 01/09/25 07:34) SOB,RASH levofloxacin (From Levaquin) Allergy (Intermediate, Verified 01/09/25 07:34) swelling/rash oxycodone (From Percocet) Allergy (Intermediate, Verified 01/09/25 07:34) rash/SOB aspirin (ASA) Adverse Reaction (Mild, Verified 01/09/25 07:34) UPSET STOMACH Medication List - Last Reconciled 01/09/25 by Sky Horton MD amlodipine 10 mg PO DAILY atorvastatin (Lipitor) 10 mg PO DAILY Bifidobacterium longum (Align (B.longum)) 1 capsule orally daily; 30 days budesonide-formoterol 160-4.5 mcg/actuation (Symbicort) 2 puffs inhalation BID cholecalciferol (vitamin D3) (Vitamin D3) 50 mcg PO DAILY cyclobenzaprine 10 mg PO BEDTIME 15 days diclofenac sodium 50 mg PO DAILY 30 days diphenhydramine HCl (Benadryl Allergy) 25 mg orally one tablet this evening and one tablet tomorrow am; docusate sodium 100 mg PO BID famotidine 20 mg PO BEDTIME PRN hydrochlorothiazide 25 mg PO DAILY ipratropium bromide 2 sprays intranasal TID 30 days ipratropium-albuterol 0.5 mg-3 mg(2.5 mg base)/3 mL 3 mL inhalation Q4-6H PRN levothyroxine 200 mcg PO DAILY lisinopril 40 mg PO DAILY 90 days lorazepam 1 mg PO ONCE PRN metoprolol tartrate 100 mg PO BID 90 days mupirocin 2% 1 appl topical BID 30 days omalizumab (Xolair) 300 mg (2 mL) subcut Q2W omeprazole 40 mg (2 x 20 mg) PO DAILY ondansetron 4 mg PO Q8H PRN 30 days pyridoxine (vitamin B6) 100 mg PO DAILY tamsulosin (Flomax) 0.4 mg PO BEDTIME Ventolin HFA 90 mcg/actuation (albuterol sulfate) 2 puffs inhalation Q4-6H PRN 30 days NS vonoprazan (Voquezna) 20 mg PO DAILY 8 weeks HPI HPI 3 month f/u: Details: GI Clinic visit for this 54-year-old female for evaluation of diarrhea and abdominal bloating Pt had severe watery diarrhea which lasted for several weeks after her thyroid surgery. Pt was seen at [facility] ED on 12/18/22 with worsening abd pain and labs showed an elevated lipase of 118 TODAY'S VISIT: Patient reports Abdominal pain with bloating, acid reflux, chronic constipation and some discomfort swallowing. GES results reviewed Complains of constipation - no BM for the past week Stool are very hard and has to strain stool is so, so hard Denies change in diet and has been drinking 10 bottles of water in a day EGD and colon results were reviewed. Notes stabbing pains in the throat and upper abdomen simultaneously since she had the EGD, Notes hoarseness Has to use the bathroom 15 or 20 min after eating. Has HAs during a BM and feels dizzy and BROWNE lasts 2-3 hours Has diarrhea alternating with constipation alternating with mushy stools. Has diarrhea 50% of the time and constipation 50% of the time. Notes LUQ (stabbing and burning) with a visible lump - not related to eating Pain improves with SL hyoscyamine. Notes HB in the am - has to take her thyroid medication first and wait 2 hrs and then takes the rest of her medication. Complains of dysphagia to solids and liquids and even her saliva. PAST VISITS: Having BROWNE - gets pounding HAs when she has acid reflux. Had a 30 day heart monitor. Lost her paternal aunt a month ago - (had a stroke and a heart attack last year and was bedridden). Also had stomach issues and a feeding tube) Pt is not feeling well for the past year. Has bad diarrhea 4 - 5 times - watery stool followed by soft stool and then watery stool again. Takes Gatorade and pedialyte. Had abd pain after she had ketchup. Has nasty burps and whole mouth barajas when they come up. Taking Omeprazole twice a day for GERD Epigastric pain radiating to LUQ and back. PAST VISITS: EGD and colon results were reviewed. Not feeling good - stomach has been hurting more and more. Continues to have diarrhea 5-6 times a day - has diarrhea when she goes to pee Every time she eats, she has to go to the bathroom Noted difficulty swallowing while drinking a smoothie. Poop is sarah - coffee grain material in the poop on toilet paper - green Had a lot of pain that day. Has gained weight - attributes to thyroid issues. Has to see the nurse every 2 weeks to have her blood pressure checked. PAST VISITS: Not good, stomach hurts, intermittent watery diarrhea which is yellow in color Watery diarrhea for a few days and then constipation Has diarrhea 4 days per week (5 times a day) and constipation for the rest of the week Has not had a normal BM in the past several months Takes soups when she has the diarrhea and avoids taking solids. Continues to have constant nausea, bloating and burping. PAST VISITS: Denies any change in symptoms Constantly burping associated with regurgitation of liquids and feels like she is drowning Taking Omeprazole and is working a little bit. Hardly eat since has nausea and abdominal pain when she eats Horrible nausea Has diarrhea alternating with constipation. Denies having a normal BM in years Unable to sleep at night due to regurgitation. Sleeping side ways with the pillow elevated. Patient cc: abdominal pain/bloating, GERD with burning sensation,between diarrhea and constipation, water is coming with burps and she can not breath when that happened to her, also she is not eating well due the abdominal pain/loosing weight. Nauseas and Vomit, acid reflex with burning sensation and some swallowing problems Loosing weight too fast, loosing hair, cant keep anything in her stomach. Unable to eat without vomiting or diarrhea. Constant abdominal pain. Has diarrhea alternating with constipation. No BM x 3 days Advised GFD. Pt states she tried a GFD in the past ? for 1-2 years and willing to try it again [facility]: 11/15 REVIEWED. ? Stool studies were negative for C Diff, calprotectin was normal and stool fat was elevated ? Stool electrolytes could not be performed since stool was formed ? Serum gastrin was elevated and normal on repeat testing after holding Omeprazole. ?IMAGING STUDIES: 03/16/22 BARIUM SWALLOW SHOWED: -Spontaneous gastroesophageal reflux to the level mid thoracicesophagus. -Bridging anterior osteophytes mid to lower cervical spine. Swellingfunction unremarkable. -No stricture, ulceration, or hiatal hernia. 01/[address] SCAN SHOWED:? 2 mm small radiopaque calculi nonobstructive lower pole right kidney? and mid pole left kidney. There are extrarenal kidney pelvises seen.? Mild constipation without obstruction. No evidence of panniculitis or diverticulitis. Small hiatal hernia.? Fatty lesion anterior body/tail of pancreas junction is stable. 02/15/2018:? ABD MRI SHOWED:Status post cholecystectomy.? No MRI evidence of intra or extrahepatic biliary obstruction, filling defects or stones.Pancreatic metrics incised are normal, no pancreatic mass found ENDOSCOPIC STUDIES: 11/22/23 EGD AND COLON SHOWED: Endoscopy Findings: Esophagus: GE junction at 32 cm, diaphragm hiatus at 35 cm, consistent with 3 cm sliding hiatal hernia, erosive esophagitis noted, LA grade A --esophageal inlet patch noted Stomach: Patchy erythema. Biopsies were obtained. Grade 2 flap valve on retroflexed examination of the cardia. Duodenum: Normal bulb and descending duodenum, bx taken Colonoscopy Findings: internal hemorrhoids with skin tags Plan: Await Pathology results Repeat Colonoscopy in 1 year due to areas of fair prep or earlier if clinically indicated High fiber diet leaflet avoid straining at stool, epsom salts and sitz bath, anusol supps or cream reflux precautions if H pylori pos then treat amyloids, IGG4 staining and mast cells was negative 12/22/22 EGD SHOWED: Endoscopy Findings:LARYNX: Changes suggestive of LPRD ESOPHAGUS: Hiatal hernia STOMACH: Diffuse gastritis DUODENUM: Two 2-3 mm superficial ulcers in the bulb and normal descending duodenum. Plan: Above findings were reviewed with the patient and Hiatal Hernia and PUD handouts were given in the discharge area [facility] Medical History At high risk for breast cancer Atypical ductal hyperplasia of left breast Migraines Dysphagia Hx of flexible sigmoidoscopy Internal derangement of right shoulder Lump of left breast Chronic constipation Rotator cuff impingement syndrome of left shoulder Colitis Rotator cuff impingement syndrome Lateral epicondylitis of both elbows IBS (irritable bowel syndrome) Tendinopathy of left rotator cuff History of TIA (transient ischemic attack) Hypercholesterolemia Vitamin D deficiency Multinodular thyroid Pancreatic cyst Thyroid nodule GERD (gastroesophageal reflux disease) Hypertension Asthma Kidney stones Fibromyalgia Allergic rhinitis Sciatic nerve pain Ovarian cyst Hypothyroidism Surgical History History of carpal tunnel release (09/25/24) History of arthroscopic surgery of shoulder Hx of eye surgery History of breast lump/mass excision Hx of hemorrhoidectomy Hx of tubal ligation History of esophagogastroduodenoscopy (EGD) History of colonoscopy (~11/16/19) H/O: hysterectomy History of thyroidectomy (~11/2018) History of kidney surgery Hx of bilateral breast reduction surgery Hx of appendectomy History of cholecystectomy (~2003) H/O lithotripsy (04/30/24) Family History Father Family history of high blood pressure History of high cholesterol Mother History of diabetes mellitus Family history of high blood pressure Family history of asthma History of fibromyalgia Liver disease Maternal Grandfather Colon cancer Family/Other Breast cancer Maternal Aunt Breast cancer Family/Other Breast cancer Social History Household Members: Spouse Household Members Other:: daughter Housing: Apartment Are you a primary critical care physician assistant to a significant other at home: No Do you presently have visiting nurse or other home services: No Alcohol intake: never Patient Tobacco Use Status: Former Tobacco user Tobacco use type: Cigarette Years Smoked: 15 e-Cigarette/Vaping Use: Never Used Second Hand Smoke Exposure: Yes Substance Use Type: Marijuana service: No Current occupational status: disabled Current occupation: right handed Sexual orientation: Straight/Heterosexual Gender identity: Female Cognitive needs: No Hearing needs: No Vision needs: Yes Female Reproductive History Menstrual Age of Menarche: 10 Review of Systems Const All systems reviewed & are unremarkable except as noted in HPI and below Physical Exam Vital Signs: Last Vital Signs BP 123/77 01/09/25 07:38 BMI result Body Mass Index 37.3 Const General: no acute distress and anxious Nutritional Appearance: obese Orientation/consciousness: patient oriented x3 Limitations: no limitations HEENT Head: Yes normal to inspection Ears: hearing grossly normal bilaterally Eyes Sclerae: sclerae normal Pupils: Equal, round and reactive pupils present Neck Neck: Yes normal visual inspection Chest Chest palpation & inspection: normal inspection of the chest Resp Effort & Inspection: normal respiratory effort Auscultation: clear to auscultation bilaterally Cardio Palpation: normal PMI Rate: regular rate Rhythm: regular rhythm Heart sounds: S1 normal heart sound present, S2 normal heart sound present and no murmurs GI Palpation (GI): Soft to palpation, nontender and No hepatosplenomegaly present Auscultation: normal bowel sounds Rectal Exam - Female: deferred Skin General skin exam: no rashes or lesions noted Neuro General: patient oriented x3, gait normal and moves all extremities Cranial nerves: Yes Equal, round and reactive pupils present Psych Appearance: grossly normal Mental Status: mental status grossly normal Assessment & Plan Assessment & Plan (1) GERD (gastroesophageal reflux disease): Code(s): K21.9 - Gastro-esophageal reflux disease without esophagitis Category: Medical (2) Esophageal spasm: Code(s): K22.4 - Dyskinesia of esophagus Category: Medical (3) Pancreatic cyst: Comment: 8 mm cystic lesion in the pancreas - stable since 2013. Plan is to continue to follow with imaging every 2 years. If size increases to > 1 cms,she will need further evaluation with EUS/MRCP. 02/[address] scan showed Fatty lesion anterior body/tail of pancreas junction is stable. Code(s): K86.2 - Cyst of pancreas Category: Medical (4) Small intestinal bacterial overgrowth: Code(s): K63.8219 - Small intestinal bacterial overgrowth, unspecified Category: Medical (5) Chronic diarrhea: Code(s): K52.9 - Noninfective gastroenteritis and colitis, unspecified Category: Medical (6) Intermittent constipation: Code(s): K59.09 - Other constipation Category: Medical (7) Abdominal pain: Code(s): R10.9 - Unspecified abdominal pain Category: Medical Plan 54 YF with htn, fibromyalgia, asthma, obesity, migraine BROWNE with long history of abdominal pain associated with diarrhea and bloating, constipation alternating with diarrhea with symptoms suggestive of outlet delay. Abdominal pain is likely due to IBS with constipation and diarrhea. Patient notes partial improvement in symptoms with senna, she has not used a suppository or enema in the past.? She tried dicyclomine in the past and was not helpful for abdominal pain. Patient had a colonoscopy on 11/18/19? for evaluation of rectal bleeding which revealed diverticulosis and no polyps.? Random biopsies obtained from the colon were negative for inflammation. 08/2020 Anorectal manometry with balloon expulsion testing at [facility] showed: IMPRESSIONS: Borderline anal hypertension and borderline anal hypocontractility (overall anal sphincter strength lower than average for gender) Abnormal balloon expulsion with normal manometric pattern of rectoanal coordination normal rectal propulsive force and normal anal relaxation with push) This is considered an inconclusive finding that can also be seen in normal controls according to the Wu classification. Mild rectal hypersensitivity suggestive of chronic constipation She complains of constipation x 2-3 days followed by soft/watery stools lasting for half a day. Patient was advised to take Miralax every other day for constipation and take Rifaximin x 14 days for suspected SIBO. Takes Miralax intermittently Pt was advised to go on a clear liquid diet and take Mag Citrate to clean out her colon. Then start taking Linzess for constipation. 01/30/22 - pt was advised stool studies, start a probiotic and increase sucralfate to 3-4 times daily 03/16/22 Pt was switched from Omeprazole to Pantoprazole 40 mg twice daily and started on Amitriptyline 25 mg at bedtime. 04/28/22 Amitriptyline dose was increased to 50 mg at bedtime Pt's wt gain is likely related to elevated TSH levels - repeat TSH planned in [address] Humphrey 11/30/22 Pt complains of left sided abd pain, bloating and worsening GERD symptoms after she was advised to take the Pantoprazole later in the day and stop sucralfate due to suspected drug interaction with Levothyroxine. Pt was advised to increase pantoprazole to 40 mg twice daily and amitriptyline to 75 mg at bedtime She will be scheduled for an EGD (last EGD in 2018 showed a small hiatal hernia and gastritis - no HP on bx) - scheduled on 12/22/22. 12/21/22 Pt seen with worsening upper abdominal pain, nausea, vomiting and unable to tolerate PO food. Pt had an elevated lipase on 12/18/22 Pt advised to return to the ED for repeat labs, lipase and a CT scan with IV contrast. She will need to be admitted if lipase remains elevated for bowel rest and IVF Repeat lipase was normal. ABD CT SCAN SHOWED: PANCREAS: Edematous appearing pancreas with peripancreatic stranding. This appears more pronounced than the 08/08/2020 examination. No peripancreatic fluid collections. No dilatation of the main pancreatic duct. 12/22/22 EGD was performed in findings as noted above. Order placed for MRCP for FU of pancreatitis Of note pt is status post lap macy and had a normal triglyceride level a few months ago. 05/03/23 Lab and MRI results reviewed. Vaguely recall being treated with steroids in the past (? 2006). Complains of nausea and postprandial vomiting. Has been loosing weight. IgG4 level was elevated at 166.8 Additional lab, urine and stool test were ordered and not done yet - pt advised to complete ADDENDUM: 05/17/23 Pt called and lab results reviewed: Having watery stools for the past two weeks with bowel accidents Notes post prandial diarrhea which is very smelly. Stool appears greasy and sometime pale with white dots. No one is sick at home. Having 1 meal a day (rice, beans, chicken, eggs and toast) and keeps loosing weight. Started on antibiotics for suspected SIBO and has been taking it without improvement in symptoms. Pt with long hx of Abd pain, diarrhea alternating with constipation initially diagnosed with IBS Enlarged pancreas on past CT and MRI showed a normal pancreas Elevated Ig G4 levels without other clinical signs of Ig G4 related disease 06/01/[address] Alegre for a 2nd opinion and additional labs were ordered and pt scheduled for EGD and colon 06/14/23 Loosing weight too fast, loosing hair, cant keep anything in her stomach. Unable to eat without vomiting or diarrhea. Constant abdominal pain. Has diarrhea alternating with constipation. No BM x 3 days Advised GFD - states she tried a GFD in the past ? for 1-2 years and willing to try it again. 08/02/23 Constantly burping associated with regurgitation of liquids and feels like she is drowning Taking Omeprazole and is working a little bit. Hardly eat since has nausea and abdominal pain when she eats Ref to Hem Onc for evaluation of elevated Ig A levels 04/17/24 [place] of antibiotics for suspected SIBO Going to [place] in April (GS is graduating from the [employer]) 08/14/24 LUQ (stabbing and burning) with a visible lump - not related to eating and diarrhea alternating with constipation alternating with mushy stools. Pt advised to schedule an upper endoscopy (GERD, dysphagia & abd pain) and colonoscopy (sub-optimal prep on past colonoscopy). 10/30/24 EGD and colon results were reviewed. Notes stabbing pains in the throat and upper abdomen simultaneously since she had the EGD, Notes hoarseness Pt advised to take a probiotic daily and schedule a gastric emptying study. 11/2024 GES SHOWED: 1 hour 77% (normal 37%-90%) 2 hours 53% (normal 30%-60%) 3 hours 23% 4 hours 16% (normal 0%-10%) IMPRESSION: Mildly delayed gastric emptying. 01/09/25 Gastroparesis and worsening constipation is likely exacerbated by thyroid dysfunction - switched to liquid levothyroxine and awaiting insurance approval. Start Metoclopramide 10 mg three times daily before meals for gastroparesis Linzess 145 mg Q am for constipation, continue MiraLax once a day and take a Fleet enema p.r.n. FU in 4 months - scheduled 05/14/25 Medications: New bisacodyl (Fleet Bisacodyl) 10 mg (30 mL) AL DAILY PRN 370 mL 1RF constipation 30 days linaclotide (Linzess) 145 mcg PO QAM 30 caps 3RF 30 days K59.09 - Other constipation metoclopramide HCl 10 mg PO .Q 8 hrly 90 tabs 3RF nausea and vomiting 30 days Coding Level of Care Code Est Pt Level 4 (09402) Diagnoses GERD (gastroesophageal reflux disease) K21.9 Esophageal spasm K22.4 Pancreatic cyst K86.2 Small intestinal bacterial overgrowth K63.8219 Chronic diarrhea K52.9 Intermittent constipation K59.09 Abdominal pain R10.9 Time Spent (min) 25
--- OUTSIDE RECORDS SUMMARY | 2025-01-09 07:36 | XMS_ITS | Clinical Summary ---
Author Organization [facility] Address [address] [place] [id number] Phone Care Team Providers Care Athlete Marketing Agent Name Role Phone Unavailable Primary Care Provider [...]
--- OUTSIDE RECORDS SUMMARY | 2025-01-09 07:36 | XMS_ITS | Clinical Summary ---
Author Organization [facility] Facility Address [address] [place] [address], [place] [address] Care Team Providers Care Cath Laboratory Technician Name Role Phone Naomi Bains MD [...] Vaccine (#1) 2024 [facility] [place] [id number] [facility] Medicaid [facility] Medicaid Care Teams Cath Laboratory Technician Relationship Specialty Start Date End Date Naomi Bains MD [address] [place] [id number] PCP - General 03/08/20
[2025-01-09 07:38] VITALS: BP 123/77; BMI 37.3
== END 2025-01-09 08:34 | disposition home or self-care (01) ==
LOC: HO.HGI 07:33
PROVIDERS: PCP Internal Medicine; Visit Provider Internal Medicine Gastroenterology
DX: K21.9 Gastro-esophageal reflux disease without esophagitis (principal); K22.4 Dyskinesia of esophagus; K86.2 Cyst of pancreas; K63.8219 Small intestinal bacterial overgrowth, unspecified; K52.9 Noninfective gastroenteritis and colitis, unspecified; K59.09 Other constipation; R10.9 Unspecified abdominal pain
CPT/HCPCS: 99214

== ENCOUNTER → 2025-01-09 07:32 | Outpatient (BNVA) | payer OTHER, SELFPAY | PROVIDERS: PCP Internal Medicine; Visit Provider Internal Medicine Gastroenterology | DX: R68.81 Early satiety (principal); K21.9 Gastro-esophageal reflux disease without esophagitis; K22.4 Dyskinesia of esophagus; K86.2 Cyst of pancreas; K63.8219 Small intestinal bacterial overgrowth, unspecified; K52.9 Noninfective gastroenteritis and colitis, unspecified; K59.09 Other constipation; R10.9 Unspecified abdominal pain | CPT/HCPCS: 99212 ==

== ENCOUNTER 2025-01-12 11:21 | Outpatient (AMB) | payer OTHER, SELFPAY ==
--- NOTE | 2025-01-12 11:41 | MHC.OFFVIS ---
Intake Visit Reasons: ESWL follow up, US/KUB Intake Note: Patient is present today for ESWL follow up/US/KUB 01/08 Renal US 01/08 KUB Urology Medication: Vitamin B6 Antibiotic Allergies: Levofloxacin Blood Thinners: None Linotype Machinist Required: No Accompanied by: Self / Same As Patient Allergies pineapple (PINEAPPLE) Allergy (Severe, Verified 01/12/25 11:42) ANAPHYLAXIS adhesive tape Allergy (Intermediate, Verified 01/12/25 11:42) Blister Iodinated Contrast Media (IV Dye, Iodine Containing) Allergy (Intermediate, Verified 01/12/25 11:42) SOB,RASH levofloxacin (From Levaquin) Allergy (Intermediate, Verified 01/12/25 11:42) swelling/rash oxycodone (From Percocet) Allergy (Intermediate, Verified 01/12/25 11:42) rash/SOB aspirin (ASA) Adverse Reaction (Mild, Verified 01/12/25 11:42) UPSET STOMACH Medication List - Last Reconciled 01/12/25 by Blanca Lujan MD amlodipine 10 mg PO DAILY atorvastatin (Lipitor) 10 mg PO DAILY Bifidobacterium longum (Align (B.longum)) 1 capsule orally daily; 30 days bisacodyl (Fleet Bisacodyl) 10 mg (30 mL) AK DAILY PRN 30 days budesonide-formoterol 160-4.5 mcg/actuation (Symbicort) 2 puffs inhalation BID cholecalciferol (vitamin D3) (Vitamin D3) 50 mcg PO DAILY cyclobenzaprine 10 mg PO BEDTIME 15 days diclofenac sodium 50 mg PO DAILY 30 days diphenhydramine HCl (Benadryl Allergy) 25 mg orally one tablet this evening and one tablet tomorrow am; docusate sodium 100 mg PO BID famotidine 20 mg PO BEDTIME PRN hydrochlorothiazide 25 mg PO DAILY ipratropium bromide 2 sprays intranasal TID 30 days ipratropium-albuterol 0.5 mg-3 mg(2.5 mg base)/3 mL 3 mL inhalation Q4-6H PRN levothyroxine 200 mcg PO DAILY linaclotide (Linzess) 145 mcg PO QAM 30 days lisinopril 40 mg PO DAILY 90 days lorazepam 1 mg PO ONCE PRN metoclopramide HCl 10 mg PO .Q 8 hrly 30 days metoprolol tartrate 100 mg PO BID 90 days mupirocin 2% 1 appl topical BID 30 days omalizumab (Xolair) 300 mg (2 mL) subcut Q2W omeprazole 40 mg (2 x 20 mg) PO DAILY ondansetron 4 mg PO Q8H PRN 30 days pyridoxine (vitamin B6) 100 mg PO DAILY tamsulosin (Flomax) 0.4 mg PO BEDTIME Ventolin HFA 90 mcg/actuation (albuterol sulfate) 2 puffs inhalation Q4-6H PRN 30 days NS vonoprazan (Voquezna) 20 mg PO DAILY 8 weeks HPI Comments Details: 01/12/25--status post right kidney stone ESWL on 11/26/2024. Urinalysis today is negative for bladder leukocytes the patient is in vitamin B6. History of Present Illness The patient is a 54-year-old female presenting with follow-up after right kidney stone treatment with extracorporeal shock wave lithotripsy (ESWL). The procedure was performed on 11/26/24 for a 7 mm stone. A renal ultrasound and KUB performed on 01/08/25 showed no renal calculi, indicating a successful outcome of the ESWL. The patient has been advised to continue dietary management, including increased water intake, reduced sodium, and the addition of lemon to water to prevent recurrence. The patient is currently on vitamin B6. Results - Renal ultrasound and KUB on 01/08/25: No renal calculi noted - Urinalysis: Negative for blood or leukocytes Plan 1. Right Kidney Stone Status Post Extracorporeal Shock Wave Lithotripsy (Eswl) - Follow-up renal ultrasound in 9 months to monitor for recurrence - Continue dietary management: Increase water intake, reduce sodium, add lemon to water - Send stone fragments for analysis 09/22/24-- - The patient is a 54-year-old female presenting with nephrolithiasis and associated discomfort. - A 5 mm stone was identified in the right kidney via CT scan, which was not visible on the previous ultrasound. - The patient reports ongoing discomfort on the right side. - 24 hr urine Calcium excretion was within normal limits, but oxalate levels were slightly elevated at 41 mg, above the normal range of 20-40 mg. - The patient has been advised to monitor dietary intake of oxalate-rich foods and to consider vitamin B6 supplementation to manage oxalate levels. Results - CT scan: 5 mm stone in the right kidney Plan - Plan to set up ESWLithotripsy for the right kidney - Encourage increased fluid intake to reach 2 to 2.5 liters daily to aid in stone prevention. - Advise dietary modifications to reduce oxalate intake, including limiting nuts, green leafy vegetables, and dark chocolate. - Prescribe vitamin B6 to help manage oxalate levels, with the option to purchase [id number] if not covered by insurance. 08/22/24--Discussed 24 hour urine results collected:03/31/24 Total volume 1.49 L, Calcium 162 mg; Oxalate 41 mg, Citrate 1028 mg, Sodium 131. Instructed on importance of fluid intake. History of Present Illness - The patient is a 53-year-old female presenting with nephrolithiasis. - She has a history of nephrolithiasis with a recent 24-hour urine collection showing normal calcium but elevated oxalate levels, likely due to dietary intake. - She experiences right-sided flank pain and hematuria - A renal ultrasound in May indicated mild fullness of the renal pelvis without renal stones. - discussed plan for CT scan to check for ureteral stones. Results - Labs: 24-hour urine collection in March showed normal urine calcium levels and slightly elevated urine oxalate levels, urine volume less than 2 L. - Imaging: Ultrasound in May showed mild fullness of the right renal pelvis. Discussion Notes I discussed with the patient the results of her 24-hour urine collection, which showed normal calcium levels but elevated oxalate levels, likely due to dietary factors. I advised her to continue increasing her fluid intake and to be mindful of her diet. We also reviewed her ultrasound results, which showed mild fullness of the renal pelvis but no stones. Given her symptoms of right-sided flank pain and hematuria, I recommended a CT scan to check for ureteral stones. We will follow up with a telehealth appointment to review the CT scan and urine results. 06/13/24-- s/p ESWL--04/30/24 for approximately 9x9mm left lower pole stone renal US 06/04/24-- no renal calculi Discussion Notes We discussed the post-procedural state, confirming that the ultrasound results, no renal stones visualized. I explained she might still experience symptoms such as mild hematuria. We plan for a 24-hour urine collection to determine any modifications needed in her diet to prevent future stones. During her follow-up, it is important to bring in any stones she might pass for further analysis. We also discussed the possibility that some stones might still be in the bladder, continuing her symptoms. I will see her again in about 10 weeks for re-evaluation and to plan further management based on additional data from the urine collection and stone analysis. We reviewed the urine collection process, including [employer] pickup services and written documentation requirements at length to ensure compliance. 03/03/24--Gloria is being followed for kidney stones. She had left ESWL on 04/04/2023. LV 05/31/23 --she was referred to Nephrology Renal US 10/22/23-- RIGHT KIDNEY: No focal parenchymal lesions or hydronephrosis. 1.0 cm lower pole nonobstructive calculus. LEFT KIDNEY: mild lower pole caliectasis versus a parapelvic cyst which appears similar to prior. 7 mm nonobstructing calculus in the mid kidney. 05/31/2023--Gloria is being followed for kidney stones. She had left ESWL on 04/04/2023. She presents for telehealth visit. Video attempted. The patient states she still gets intermittent pain in the left kidney area. She also states her urine appears dark and she thinks it may have blood. The patient is concerned as to her continuing to make kidney stones. She states she is being evaluated for a pancreatic problem. I have discussed recent renal ultrasound and CT scan results. Renal ultrasound 05/14/2023--3 mm left kidney stone, 5mm right kidney stone. CT scan 05/10/2023 bilateral punctate stones largest 4 mm right kidney. Plan discussed will start vitamin B6 100 mg daily, refer to nephrology for workup due to kidney stones. In regards to her complains regarding her urine I will have the nurses reach out to her to have her leave a urine specimen at the lab so that I can evaluate this. We will monitor kidneys renal ultrasound in 6 months. 03/07/2023--Gloria is a 52-year-old female who is here for evaluation for kidney stones. The patient states that she has had history of kidney stones and has had prior kidney stone treatments including shockwave lithotripsy. Past Medical history includes asthma, she is followed by Pulmonary, history of thyroid cancer status post thyroid removal, bowel condition. The patient complains of left kidney pain, denies blood in the urine. I have reviewed chart, imagin12/21/22-CTAP--left kidney stones and right punctate kidney stone 02/12/23- Renal US --Left kidney stones 4-5 mm I have discussed diet modification to increase fluids, low sodium and low oxalate diet, diet sheet provided. Discussed Left ESWL--risks to include but not limited to, blood in the urine, bruising to the skin, kidney hematoma, possible need for another procedure if a stone fragment obstructs the ureter while passing, possible need to repeat procedure if stone is not completely fragmented. UA- negative. Plan:Left ESWL. Needs pulmonary clearance prior 05/31/2023--Plan discussed will start vitamin B6 100 mg daily, refer to nephrology for workup due to kidney stones. In regards to her complains regarding her urine I will have the nurses reach out to her to have her leave a urine specimen at the lab so that I can evaluate this. We will monitor kidneys renal ultrasound in 6 months. [facility] Medical History At high risk for breast cancer Atypical ductal hyperplasia of left breast Migraines Dysphagia Hx of flexible sigmoidoscopy Internal derangement of right shoulder Lump of left breast Chronic constipation Rotator cuff impingement syndrome of left shoulder Colitis Rotator cuff impingement syndrome Lateral epicondylitis of both elbows IBS (irritable bowel syndrome) Tendinopathy of left rotator cuff History of TIA (transient ischemic attack) Hypercholesterolemia Vitamin D deficiency Multinodular thyroid Pancreatic cyst Thyroid nodule GERD (gastroesophageal reflux disease) Hypertension Asthma Kidney stones Fibromyalgia Allergic rhinitis Sciatic nerve pain Ovarian cyst Hypothyroidism Surgical History History of carpal tunnel release (09/25/24) History of arthroscopic surgery of shoulder Hx of eye surgery History of breast lump/mass excision Hx of hemorrhoidectomy Hx of tubal ligation History of esophagogastroduodenoscopy (EGD) History of colonoscopy (~11/16/19) H/O: hysterectomy History of thyroidectomy (~11/2018) History of kidney surgery Hx of bilateral breast reduction surgery Hx of appendectomy History of cholecystectomy (~2003) H/O lithotripsy (04/30/24) Family History Father Family history of high blood pressure History of high cholesterol Mother History of diabetes mellitus Family history of high blood pressure Family history of asthma History of fibromyalgia Liver disease Maternal Grandfather Colon cancer Family/Other Breast cancer Maternal Aunt Breast cancer Family/Other Breast cancer Social History Household Members: Spouse Household Members Other:: daughter Housing: Apartment Are you a primary resident care spec to a significant other at home: No Do you presently have visiting nurse or other home services: No Alcohol intake: never Patient Tobacco Use Status: Former Tobacco user Tobacco use type: Cigarette Years Smoked: 15 e-Cigarette/Vaping Use: Never Used Second Hand Smoke Exposure: Yes Substance Use Type: Marijuana service: No Current occupational status: disabled Current occupation: right handed Sexual orientation: Straight/Heterosexual Gender identity: Female Cognitive needs: No Hearing needs: No Vision needs: Yes Female Reproductive History Menstrual Age of Menarche: 10 Review of Systems Const All systems reviewed & are unremarkable except as noted in HPI and below Reports no additional complaints Eyes Reports no additional complaints ENT Reports no additional complaints Card Reports no additional complaints Resp Reports no additional complaints GI Reports no additional complaints Reports as per HPI Musc Reports no additional complaints Skin/Breast Reports system reviewed and no additional complaints, except as documented Neuro Reports no additional complaints Psych Reports no additional complaints Endo Reports no additional complaints Chuy/Lymph Reports no additional complaints Aller/Immun Reports no additional complaints Results Reviewed Results Reviewed: Date of Service: 01/08/25 CLINICAL HISTORY: N20.0 - Calculus of kidney US Renal Comparison: 06/04/2024 Findings: Right kidney normal size and echotexture, 12.1 cm length. Left kidney normal size and echotexture, 12.6 cm length. Minimal hydronephrosis of bilateral kidney. Normal color Doppler IMPRESSION: 1. Minimal bilateral hydronephrosis. ----- Date of Service: 01/08/25 XR ABDOMEN KUB CLINICAL INDICATION: N20.0 - Calculus of kidney COMPARISON: X-ray 11/26/2024 TECHNIQUE: 2 AP views of the abdomen. FINDINGS: Nonspecific nonobstructive bowel gas pattern. Small-moderate volume stool. Status postcholecystectomy, with surgical clips. Surgical clips projected over the lower abdomen. The previously seen lobulated mineral density in the right mid abdomen is not visualized in today's study. No definite renal calculi identified by x-ray. Overlying bowel gas stool limiting evaluation. Redemonstrated phleboliths in the pelvis. No gross pneumoperitoneum on the supine views. Bilateral hemidiaphragms are not included in the [id number]. IMPRESSION: No definite nephrolithiasis is seen. Bowel gas and stool limiting evaluation. ------ Date of Service: 09/12/24 EXAMINATION: CT ABDOMEN PELVIS WITHOUT IV CONTRAST HISTORY: N13.30 - Unspecified hydronephrosis COMPARISON: Comparison is made with prior examinations dated 05/10/2023 and 12/21/2022. TECHNIQUE: CT scan of the abdomen and pelvis was performed without contrast using standard departmental protocol. Coronal and sagittal reformatted images were generated and reviewed. Oral contrast material was not administered per department protocol. This CT exam was performed with one or more of the following dose reduction techniques: automated exposure control, adjustment of the mA and/or kV according to patient size, use of iterative reconstruction technique. DLP: 712 mGy-cm FINDINGS: LOWER CHEST: The visualized lung bases are clear. There is no pleural effusion. CARDIOVASCULATURE: The heart is normal in size. There is no pericardial effusion. LIVER: The liver is normal in size and contour. The liver has an unremarkable unenhanced appearance. GALLBLADDER / BILE DUCTS: The gallbladder is surgically absent. There is no intra or extrahepatic biliary ductal dilatation. SPLEEN: The spleen is normal in size and has an unremarkable unenhanced appearance. PANCREAS: The pancreas has an unremarkable unenhanced appearance. ADRENAL GLANDS: Unremarkable. KIDNEYS/RETROPERITONEUM: There is a nonobstructing 5 mm calculus at the lower pole of the right kidney. There are probable punctate nonobstructing calculi in the interpolar region of the left kidney. There are extrarenal pelves bilaterally. Findings are similar in appearance to the prior studies. There is no hydronephrosis or hydroureter. No ureteral calculi are identified. LYMPH NODES: No retroperitoneal lymphadenopathy is identified in the abdomen or pelvis. VASCULATURE: The abdominal aorta is normal in caliber. MESENTERY/PERITONEUM: No free fluid. No masses. There is no free intraperitoneal gas. STOMACH: There is a small hiatal hernia. There is a large amount of debris in the stomach. SMALL BOWEL: The small bowel is normal in caliber. COLON: The colon is unremarkable. APPENDIX: The appendix is surgically absent. URINARY BLADDER/PELVIC ORGANS: The urinary bladder is unremarkable. The patient is status post hysterectomy. BONES / SOFT TISSUES: No suspicious bony or soft tissue abnormalities. IMPRESSION: Bilateral nephrolithiasis as described. Bilateral extrarenal pelves without evidence of hydronephrosis or ureteral obstruction. Date of Service: 06/04/24 EXAMINATION: US KIDNEY BILATERAL HISTORY: N20.0 - Calculus of kidney TECHNIQUE: Real-time grayscale ultrasound imaging of the kidneys was performed and images were reviewed. COMPARISON: Comparison is made with the prior examination dated 10/22/2023. FINDINGS: Right kidney: The right kidney measures 12.9 x 6.3 x 5.4 cm. Renal parenchymal echotexture and thickness are normal. There are no masses. There is fullness of the renal pelvis without hydronephrosis. No calculi are identified. Left Kidney: The left kidney measures 13.4 x 6.6 x 5.6 cm. Renal parenchymal echotexture and thickness are normal. There are no masses. Again seen is mild hydronephrosis. No calculi are identified. Imaging of the urinary bladder demonstrates bilateral ureteral jets. IMPRESSION: Mild fullness of the right renal pelvis. Mild left hydronephrosis. No calculi are identified. Date of Service: 10/22/23 US BILATERAL KIDNEYS CLINICAL INFORMATION: Calculus of kidney. COMPARISON: Renal ultrasound 05/14/2023 TECHNIQUE: Real-time imaging of the kidneys. FINDINGS: RIGHT KIDNEY: 12.9 x 5.8 x 7.1 cm (SAG x AP x TRV). The kidney is normal in size, contour, and echogenicity. Renal cortical thickness is normal. No focal parenchymal lesions or hydronephrosis. 1.0 cm lower pole nonobstructive calculus. LEFT KIDNEY: 12.2 x 6.1 x 5.0 cm (SAG x AP x TRV). The kidney is normal in size, contour, and echogenicity. Renal cortical thickness is normal. There is mild lower pole caliectasis versus a parapelvic cyst which appears similar to prior. 7 mm nonobstructing calculus in the mid kidney. IMPRESSION: Nonobstructing bilateral renal calculi. Mild left lower pole caliectasis versus a parapelvic cyst appears similar to prior. Date of Service: 05/14/23 EXAMINATION: US RETROPERITONEAL LIMITED (RENAL ONLY) CLINICAL INFORMATION: Calculus of kidney. COMPARISON: CT abdomen and pelvis 05/10/2023. X-ray KUB 04/04/2023. Renal ultrasound 02/12/2023 and 08/08/2020. MRI abdomen 02/14/2018. TECHNIQUE: Real-time imaging of the kidneys. FINDINGS: RIGHT KIDNEY: 12.6 x 4.8 x 5.7 cm (SAG x AP x TRV). The kidney is normal in size, contour, and echogenicity. Renal cortical thickness is normal. No focal parenchymal lesions. Nonobstructing 5 mm stone. LEFT KIDNEY: 11.7 x 5.7 x 4.7 cm (SAG x AP x TRV). The kidney is normal in size, contour, and echogenicity. Renal cortical thickness is normal. No focal parenchymal lesions. Mild hydronephrosis. No proximal obstructing stone. Nonobstructing 3 mm stone is noted. IMPRESSION: * Mild left hydronephrosis. No proximal obstructing stone. * Bilateral nonobstructing nephrolithiasis. Date of Service: 05/10/23 EXAMINATION: CT ABDOMEN AND PELVIS WITHOUT CONTRAST CLINICAL INFORMATION: Abdominal pain and distention. COMPARISON: None available. TECHNIQUE: Multidetector volumetric imaging was performed from the superior aspect of the liver through the pubic symphysis. Sagittal and coronal reformatted images were obtained on the technologist's workstation. This CT examination was performed using dose optimization techniques as appropriate, variously including the following: *Automated exposure control *Adjustment of mA and/or kV according to patient size (this includes techniques or standardized protocols for targeted exams where dose is matched to indication/reason for exam; i.e. extremities or head) *Use of iterative reconstruction technique DLP: 862 mGy-cm FINDINGS: LUNG BASES: The visualized lung bases are unremarkable. LIVER, GALLBLADDER, AND BILIARY TREE: The liver is normal in size, shape, and attenuation. No focal hepatic lesion or biliary ductal dilatation is present. There has been a prior cholecystectomy. PANCREAS: Unremarkable. SPLEEN: Unremarkable. ADRENAL GLANDS: Unremarkable. KIDNEYS AND URETERS: The kidneys are normal in size, shape, and attenuation. There are scattered bilateral renal calculi measuring up to 5 mm lower pole right kidney. There is no hydronephrosis. BLADDER: Unremarkable. GASTROINTESTINAL TRACT: There is a small hiatal hernia. The large and small bowel are within normal limits. The appendix is not seen. ABDOMINAL WALL: No significant hernia is appreciated. LYMPH NODES: Normal. VASCULAR: Unremarkable. PELVIC VISCERA: Unremarkable. OSSEOUS STRUCTURES: There is diffuse thoracolumbar disc degenerative change with prominent posterior osteophytes of the lower thoracic spine with spinal canal narrowing at multiple levels.. IMPRESSION: 1. No acute intra-abdominal abnormality. 2. Bilateral nonobstructing renal calculi. 3. Diffuse thoracolumbar disc degenerative change with prominent posterior osteophytes of the lower thoracic spine with spinal canal narrowing at multiple levels. Assessment & Plan Assessment & Plan (1) History of kidney stones: Code(s): Z87.442 - Personal history of urinary calculi Category: Medical Plan Plan 1. Right Kidney Stone Status Post Extracorporeal Shock Wave Lithotripsy (Eswl) - Follow-up renal ultrasound in 9 months to monitor for recurrence - Continue dietary management: Increase water intake, reduce sodium, add lemon to water - Send stone fragments for analysis Orders: Orders US renal BI 9 Months Z87.442 - Personal history of urinary calculi AMB Urinalysis Automated Today N20.0 - Calculus of kidney, R10.2 - Pelvic and perineal pain Medications: Refilled pyridoxine (vitamin B6) 100 mg PO DAILY 90 tabs 3RF Patient Instructions: The patient had an opportunity to ask questions regarding treatment plan. The patient expressed understanding and agreement with the above treatment plan. The patient is aware they should contact our office by phone for worsening of their current condition or the appearance of new symptoms. Compliance is encouraged with any medications and followup testing that is ordered. It is a privilege to be allowed the opportunity to participate in the urologic care of your patient. If you have any questions or concerns regarding treatment for the above conditions please do not hesitate to contact me. The office telephone contact is [phone]. This note is constructed in part using voice recognition software. While every effort has been made to ensure accuracy software quality manager errors may have been included. Yours sincerely, Blanca Lujan MD Scribe Plan - Not visible on output: Patient was informed and verbally consented to the use of an ambient scribe for clinic note documentation during this visit. Coding Level of Care Code Global (97619) Diagnoses History of kidney stones Z87.442
== END 2025-01-12 12:11 | disposition home or self-care (01) ==
LOC: HO.HUSH 11:21
PROVIDERS: PCP Physician Assistant; Visit Provider Urology
DX: N20.0 Calculus of kidney (principal); R10.2 Pelvic and perineal pain; Z87.442 Personal history of urinary calculi
CPT/HCPCS: 99024

== ENCOUNTER 2025-01-12 11:21 | Outpatient (REF) | payer OTHER, SELFPAY | END 2025-01-12 11:22 | disposition home or self-care (01) | LOC: HO.LNP 11:21 | PROVIDERS: PCP Physician Assistant; Visit Provider Urology | DX: N20.0 Calculus of kidney (principal); R10.20 Pelvic and perineal pain unspecified side; Z87.442 Personal history of urinary calculi | CPT/HCPCS: 81003; 82365; 88300; 99212 ==

== ENCOUNTER → 2025-01-15 08:12 | Outpatient (BNV) | payer OTHER, SELFPAY | PROVIDERS: PCP Physician Assistant; Visit Provider Internal Medicine | DX: N63.21 Unspecified lump in the left breast, upper outer quadrant (principal) | CPT/HCPCS: 19085; 77065 ==

== ENCOUNTER 2025-01-15 08:16 | Outpatient (REF) | payer OTHER, SELFPAY ==
--- NOTE | ~2025-01-15 | MR_ITS ---
EXAMINATION: MR GUIDED VACUUM-ASSISTED CORE BIOPSY BREAST, LEFT MM DIGITAL MAMMOGRAPHY POST BIOPSY, LEFT CLINICAL INFORMATION: History of recent bilateral reduction mammoplasty. Left breast palpable lump from many years in the upper outer quadrant. Findings recent MRI which are asymmetric in the upper outer left breast with enhancing nonmass enhancement and distortion.. COMPARISON: Priors on PACS. TECHNIQUE/PROCEDURE: The procedure was explained to the patient including discussion of risks and benefits and written informed consent was obtained. A preprocedural timeout was performed to confirm patient identity with multiple identifiers including site and side of procedure to be performed. Patient understood. Opportunity was given for questions. Patient signed consent form. Biopsy is performed under MRI guidance using breast surface coil. Imaging is performed without and with use of Gadavist gadolinium contrast. [employer] introducer localization system is used with grid. LESION: Architectural distortion in the upper outer quadrant asymmetric from the contralateral side.. LOCAL ANESTHESIA: 10 mL 1% lidocaine; 10 mL 1% lidocaine with epinephrine. NEEDLE: [employer] 9-gauge vacuum assisted core biopsy device. APPROACH: Lateral. CORES: 12. CLIP: Stoplight shaped. POSTPROCEDURE UNILATERAL DIGITAL MAMMOGRAM: Mammography is performed using digital mammography in CC and MLO views. There are scattered areas of fibroglandular density (ACR BI-RADS breast composition Category b). The clip marker is in position. No gross hematoma. The patient tolerated the procedure well. No immediate complications. Home instructions reviewed with the patient. Final pathology results are pending. MR/MR guided breast biopsy LT IMPRESSION: 1. Status post MRI guided vacuum-assisted core biopsy left breast with clip placement. 2. Final pathology results pending. An addendum report will be issued. Electronically signed by: Ariane Sims DO 01/15/2025 12:14 PM EVAN
--- OUTSIDE RECORDS SUMMARY | 2025-01-15 08:49 | XMS_ITS | Clinical Summary ---
Author Organization [facility] Facility Address [address] [place] [address], [place] [address] Care Team Providers Care Electric Repair Supervisor Name Role Phone Naomi Bains MD Primary [...] 2021 Influenza Vaccine (#1) 2024 Insurance [place] [id number] [facility] Medicaid [facility] Medicaid Care Teams Electric Repair Supervisor Relationship Specialty Start Date End Date Naomi Bains MD [address] [place] [id number] PCP - General 03/08/20
--- OUTSIDE RECORDS SUMMARY | 2025-01-15 08:49 | XMS_ITS | Clinical Summary ---
Author Organization [facility] Address [address] [place] [phone] Phone Care Team Providers Care Crepe Sole Wire Brusher Name Role Phone Unavailable Primary Care Provider [...] It is not the complete legal health record.[facility]
[2025-01-15] MEDS: Lidocaine HCl 1%/Epi 1:100,000 10 ML VIAL SUBCUT (10:46)
[2025-01-15] MEDS: Lidocaine HCl 1 % MPF 30 ML VIAL SUBCUT (10:48)
== END 2025-01-15 08:17 | disposition home or self-care (01) ==
LOC: HO.MRI 08:16
PROVIDERS: PCP Physician Assistant; Visit Provider Surgery
DX: N63.21 Unspecified lump in the left breast, upper outer quadrant (principal); R92.8 Other abnormal and inconclusive findings on diagnostic imaging of breast
CPT/HCPCS: 19085; 77061; 77065; 88305; 88341; 88342; 88360; A4648; A9585; J2003; J2004

== ENCOUNTER 2025-01-27 08:43 | Outpatient (REF) | payer OTHER, SELFPAY ==
--- NOTE | ~2025-01-27 | MM_ITS ---
EXAMINATION: DXA BONE DENSITY AXIAL HISTORY: Osteopenia TECHNIQUE: [employer] Dual energy absorptiometry (DEXA) of the lumbar spine, total left hip, and femoral neck was performed. COMPARISON: There are no prior studies for comparison. FINDINGS: The bone mineral density of the lumbar spine is 1.196 g/cm2, corresponding to a T-score of 0.1, and a Z-score of -0.4. This is indicative of normal bone mineral density. The bone mineral density of the left total hip is 0.975 g/cm2, corresponding to a T-score of -0.3, and a Z-score of -0.5. This is indicative of normal bone mineral density. The bone mineral density of the left femoral neck is 0.931 g/cm2, corresponding to a T-score of -0.8, and a Z-score of -0.6. This is indicative of normal bone mineral density. FRACTURE RISK: The FRAX index suggests a risk of major osteoporotic fracture of 2.3%, and of hip fracture 0.1%. MM/XR DEXA axial skeleton IMPRESSION: Based on bone mineral density, and according to World Health Organization (WHO) criteria, the diagnosis is consistent with normal bone mineral density. Statistically, 68% of repeat scans fall within 1 SD (+/- 0.010 g/cm2 for AP spine L1-L4) and 1 SD (+/- 0.012 g/cm2 for femur total) FRAX is a trademark of the [employer]'s [facility] [employer] Disease, a World Health Organization (WHO) Collaborating Center. Electronically signed by: Rainer Munson MD 01/27/2025 09:09 AM [facility]
--- OUTSIDE RECORDS SUMMARY | 2025-01-27 08:52 | XMS_ITS | Clinical Summary ---
Author Organization [facility] Facility Address [address] [place] [address], [place] [address] Care Team Providers Care Casing Fluid Tender Name Role Phone Naomi Bains MD [...] [facility] [place] [id number] [facility] Medicaid [facility] Medicaid Care Teams Casing Fluid Tender Relationship Specialty Start Date End Date Naomi Bains MD [address] [place] [phone] PCP - General 03/08/20
--- OUTSIDE RECORDS SUMMARY | 2025-01-27 08:52 | XMS_ITS | Clinical Summary ---
Author Organization [facility] Address [address] [place] [phone] Phone Care Team Providers Care Tech Writer Name Role Phone Unavailable Primary Care Provider [...] It is not the complete legal health record.[facility]
== END 2025-01-27 08:44 | disposition home or self-care (01) ==
LOC: HO.MAMMO 08:43
PROVIDERS: PCP Physician Assistant; Visit Provider Internal Medicine Medical Oncology
DX: M85.88 Other specified disorders of bone density and structure, other site (principal)
CPT/HCPCS: 77080

== ENCOUNTER → 2025-01-27 08:44 | Outpatient (BNV) | payer OTHER, SELFPAY | PROVIDERS: PCP Physician Assistant; Visit Provider Radiology Diagnostic Radiology | DX: E28.39 Other primary ovarian failure (principal) | CPT/HCPCS: 77080 ==

== ENCOUNTER 2025-02-06 09:44 | Outpatient (AMB) | payer OTHER, SELFPAY ==
--- NOTE | 2025-02-06 09:48 | MHC.OFFVIS ---
Vital Signs 02/06/25 09:52 Height 5 ft 5 in Weight 210 lb BMI 34.9 Respiration 16 Intake Visit Reasons: MRI results Intake Note: Patient is seen in office for 3 month follow up visit & breast MRI biopsy results. Pt c/o: left breast is sore, some minor discomfort MRI Bx:01/15/25 F/up sched:05/15/24 Nail Technician Required: No Accompanied by: Self / Same As Patient Allergies pineapple (PINEAPPLE) Allergy (Severe, Verified 01/12/25 11:42) ANAPHYLAXIS adhesive tape Allergy (Intermediate, Verified 01/12/25 11:42) Blister Iodinated Contrast Media (IV Dye, Iodine Containing) Allergy (Intermediate, Verified 01/12/25 11:42) SOB,RASH levofloxacin (From Levaquin) Allergy (Intermediate, Verified 01/12/25 11:42) swelling/rash oxycodone (From Percocet) Allergy (Intermediate, Verified 01/12/25 11:42) rash/SOB aspirin (ASA) Adverse Reaction (Mild, Verified 01/12/25 11:42) UPSET STOMACH Medication List - Last Reconciled 02/06/25 by Jeffrey Raines MD amlodipine 10 mg PO DAILY atorvastatin (Lipitor) 10 mg PO DAILY Bifidobacterium longum (Align (B.longum)) 1 capsule orally daily; 30 days bisacodyl (Fleet Bisacodyl) 10 mg (30 mL) SD DAILY PRN 30 days budesonide-formoterol 160-4.5 mcg/actuation (Symbicort) 2 puffs inhalation BID cholecalciferol (vitamin D3) (Vitamin D3) 50 mcg PO DAILY cyclobenzaprine 10 mg PO BEDTIME 15 days diclofenac sodium 50 mg PO DAILY 30 days diphenhydramine HCl (Benadryl Allergy) 25 mg orally one tablet this evening and one tablet tomorrow am; docusate sodium 100 mg PO BID famotidine 20 mg PO BEDTIME PRN hydrochlorothiazide 25 mg PO DAILY ipratropium bromide 2 sprays intranasal TID 30 days ipratropium-albuterol 0.5 mg-3 mg(2.5 mg base)/3 mL 3 mL inhalation Q4-6H PRN levothyroxine 200 mcg PO DAILY linaclotide (Linzess) 145 mcg PO QAM 30 days lisinopril 40 mg PO DAILY 90 days lorazepam 1 mg PO ONCE PRN metoclopramide HCl 10 mg PO .Q 8 hrly 30 days metoprolol tartrate 100 mg PO BID 90 days mupirocin 2% 1 appl topical BID 30 days omalizumab (Xolair) 300 mg (2 mL) subcut Q2W omeprazole 40 mg (2 x 20 mg) PO DAILY ondansetron 4 mg PO Q8H PRN 30 days pyridoxine (vitamin B6) 100 mg PO DAILY tamsulosin (Flomax) 0.4 mg PO BEDTIME Ventolin HFA 90 mcg/actuation (albuterol sulfate) 2 puffs inhalation Q4-6H PRN 30 days NS vonoprazan (Voquezna) 20 mg PO DAILY 8 weeks HPI Comments Details: 54-year-old female patient found to have a palpable mass in the left breast at the 03:00 location with the associated pain. Subsequent mammogram and ultrasound performed on 06/26/2024 revealed bilateral reduction mammoplasty changes with no significant mass or abnormal calcification or other abnormalities in the right breast. On the left side a BB marker in the left upper outer breast posterior depth without underlying abnormality the site of palpable lumps. A targeted ultrasound in the area of the palpable lump demonstrated a previously seen hypoechoic oval solid mass versus complicated cyst in his who o'clock position approximately 12 cm from the nipple measuring 5 x 6 x 2 mm without significant change since 12/13/2020. Patient underwent bilateral reduction mammoplasties in 2008. She developed a wound separation in the right breast without infection. Because of the persistent palpable lump on clinical breast examination, the decision was made to proceed to excision of the palpable lump of the left breast performed on 10/29/2024. Subsequent pathology revealed a small focus of atypical ductal hyperplasia small focus completely excised. There was also fibrocystic change with the usual ductal hyperplasia, apocrine metaplasia, duct ectasia, fibroadenomatous changes, focal columnar cell changes, and dense hyalinized stromal fibrosis. There was no evidence of malignancy. The patient tolerated the procedure well and reports mild discomfort at the incision site. She is 8 para 4 menarche age 10, 1st at 18. Family history is significant for a maternal aunt with breast cancer as well as a niece. Her Tyrer-Cuzick remaining lifetime risk of breast cancer was calculated at 29.3%, placing her at high risk for breast cancer. She returns today following MR guided biopsy of the left breast at the upper outer quadrant on 01/15/2025. Pathology revealed atypical lobular hyperplasia, focal with marked stromal fibrosis with focal pseudoangiomatous stromal hyperplasia, chronic inflammation, focal calcifications associated with benign breast tissue and fat necrosis. [facility] Medical History Atypical lobular hyperplasia of left breast At high risk for breast cancer Atypical ductal hyperplasia of left breast Migraines Dysphagia Hx of flexible sigmoidoscopy Internal derangement of right shoulder Lump of left breast Chronic constipation Rotator cuff impingement syndrome of left shoulder Colitis Rotator cuff impingement syndrome Lateral epicondylitis of both elbows IBS (irritable bowel syndrome) Tendinopathy of left rotator cuff History of TIA (transient ischemic attack) Hypercholesterolemia Vitamin D deficiency Multinodular thyroid Pancreatic cyst Thyroid nodule GERD (gastroesophageal reflux disease) Hypertension Asthma Kidney stones Fibromyalgia Allergic rhinitis Sciatic nerve pain Ovarian cyst Hypothyroidism Surgical History History of carpal tunnel release (09/25/24) History of arthroscopic surgery of shoulder Hx of eye surgery History of breast lump/mass excision Hx of hemorrhoidectomy Hx of tubal ligation History of esophagogastroduodenoscopy (EGD) History of colonoscopy (~11/16/19) H/O: hysterectomy History of thyroidectomy (~11/2018) History of kidney surgery Hx of bilateral breast reduction surgery Hx of appendectomy History of cholecystectomy (~2003) H/O lithotripsy (04/30/24) Family History Father Family history of high blood pressure History of high cholesterol Mother History of diabetes mellitus Family history of high blood pressure Family history of asthma History of fibromyalgia Liver disease Maternal Grandfather Colon cancer Family/Other Breast cancer Maternal Aunt Breast cancer Family/Other Breast cancer Social History Household Members: Spouse Household Members Other:: daughter Housing: Apartment Are you a primary animal care worker to a significant other at home: No Do you presently have visiting nurse or other home services: No Alcohol intake: never Patient Tobacco Use Status: Former Tobacco user Tobacco use type: Cigarette Years Smoked: 15 e-Cigarette/Vaping Use: Never Used Second Hand Smoke Exposure: Yes Substance Use Type: Marijuana service: No Current occupational status: disabled Current occupation: right handed Sexual orientation: Straight/Heterosexual Gender identity: Female Cognitive needs: No Hearing needs: No Vision needs: Yes Female Reproductive History Menstrual Age of Menarche: 10 Review of Systems Const All systems reviewed & are unremarkable except as noted in HPI and below Physical Exam Exam Exam: Exam deferred Vital Signs: Last Vital Signs Resp 16 02/06/25 09:52 BMI result Body Mass Index 34.9 Assessment & Plan Assessment & Plan (1) Atypical lobular hyperplasia of left breast: Code(s): N60.92 - Unspecified benign mammary dysplasia of left breast Category: Medical Plan Patient returns with a prior history of atypical ductal hyperplasia of the left breast now returning with a new focus of atypical lobular hyperplasia in the left breast noted on breast MRI guided core biopsy. She tolerated the biopsy well and denies any ongoing breast symptoms. I recommended a wider excision to assure complete removal of this ALH focus. After discussion of the procedure, risks, and alternatives, she consents to a left breast lumpectomy with localizer. Orders: Referrals General Surgery Procedure Notification N60.92 - Unspecified benign mammary dysplasia of left breast Coding Level of Care Code Est Pt Level 4 (50707) Diagnoses Atypical lobular hyperplasia of left breast N60.92
[2025-02-06 09:52] VITALS: RESP 16; BMI 34.9
== END 2025-02-06 10:02 | disposition home or self-care (01) ==
LOC: HO.HGS 09:45
PROVIDERS: PCP Physician Assistant; Visit Provider Surgery
DX: N60.92 Unspecified benign mammary dysplasia of left breast (principal)
CPT/HCPCS: 99214

== ENCOUNTER → 2025-02-06 09:44 | Outpatient (BNVA) | payer OTHER, SELFPAY | PROVIDERS: PCP Physician Assistant; Visit Provider Surgery | DX: N60.92 Unspecified benign mammary dysplasia of left breast (principal); Z80.3 Family history of malignant neoplasm of breast | CPT/HCPCS: 99212 ==

== ENCOUNTER 2025-02-13 08:19 | Outpatient (AMB) | payer OTHER, SELFPAY ==
[2025-02-13 08:26] VITALS: BMI 37.8
--- NOTE | 2025-02-13 08:26 | MHC.OFFVIS ---
Vital Signs 02/13/25 08:26 Height 5 ft 5 in Weight 227 lb BMI 37.8 Intake Visit Reasons: OV-Rt CTR 09/25/24 Intake Note: Gloria is a 54 year old right hand dominant male who presents today for a post operative appointment s/p Right Carpal Tunnel Release 09/25/24. Patient reports that she is having numbness at the incision. Patient reports that she is doing well overall. She has concerns of pressure at the incision site while her Blood Pressure is being taken. She explains that her hand feels like it is going to pop when they inflate the cuff and then once it is removed she has an intense tingling sensation in the right hand for at least two hours after. Allergies pineapple (PINEAPPLE) Allergy (Severe, Verified 02/10/25 11:24) ANAPHYLAXIS adhesive tape Allergy (Intermediate, Verified 02/10/25 11:24) Blister Iodinated Contrast Media (IV Dye, Iodine Containing) Allergy (Intermediate, Verified 02/10/25 11:24) SOB,RASH levofloxacin (From Levaquin) Allergy (Intermediate, Verified 02/10/25 11:24) swelling/rash oxycodone (From Percocet) Allergy (Intermediate, Verified 02/10/25 11:24) rash/SOB aspirin (ASA) Adverse Reaction (Mild, Verified 02/10/25 11:24) UPSET STOMACH HPI HPI OV-Rt CTR 09/25/24: Details: Gloria is a 54 year old right hand dominant male who presents today for a post operative appointment s/p Right Carpal Tunnel Release 09/25/24. Patient reports that she is having numbness at the incision. Patient reports that she is doing well overall. She has concerns of pressure at the incision site while her Blood Pressure is being taken. She explains that her hand feels like it is going to pop when they inflate the cuff and then once it is removed she has an intense tingling sensation in the right hand for at least two hours after. [facility] Medical History Atypical lobular hyperplasia of left breast At high risk for breast cancer Atypical ductal hyperplasia of left breast Migraines Dysphagia Hx of flexible sigmoidoscopy Internal derangement of right shoulder Lump of left breast Chronic constipation Rotator cuff impingement syndrome of left shoulder Colitis Rotator cuff impingement syndrome Lateral epicondylitis of both elbows IBS (irritable bowel syndrome) Tendinopathy of left rotator cuff History of TIA (transient ischemic attack) Hypercholesterolemia Vitamin D deficiency Multinodular thyroid Pancreatic cyst Thyroid nodule GERD (gastroesophageal reflux disease) Hypertension Asthma Kidney stones Fibromyalgia Allergic rhinitis Sciatic nerve pain Ovarian cyst Hypothyroidism Surgical History History of carpal tunnel release (09/25/24) History of arthroscopic surgery of shoulder Hx of eye surgery History of breast lump/mass excision Hx of hemorrhoidectomy Hx of tubal ligation History of esophagogastroduodenoscopy (EGD) History of colonoscopy (~11/16/19) H/O: hysterectomy History of thyroidectomy (~11/2018) History of kidney surgery Hx of bilateral breast reduction surgery Hx of appendectomy History of cholecystectomy (~2003) H/O lithotripsy (04/30/24) Family History Father Family history of high blood pressure History of high cholesterol Mother History of diabetes mellitus Family history of high blood pressure Family history of asthma History of fibromyalgia Liver disease Maternal Grandfather Colon cancer Family/Other Breast cancer Maternal Aunt Breast cancer Family/Other Breast cancer Social History Household Members: Spouse Household Members Other:: daughter Housing: Apartment Are you a primary child care supervisor to a significant other at home: No Do you presently have visiting nurse or other home services: No Alcohol intake: never Patient Tobacco Use Status: Former Tobacco user Tobacco use type: Cigarette Years Smoked: 15 e-Cigarette/Vaping Use: Never Used Second Hand Smoke Exposure: Yes Substance Use Type: Marijuana service: No Current occupational status: disabled Current occupation: right handed Sexual orientation: Straight/Heterosexual Gender identity: Female Cognitive needs: No Hearing needs: No Vision needs: Yes Female Reproductive History Menstrual Age of Menarche: 10 Physical Exam Vital Signs: BMI result Body Mass Index 37.8 Extrem Other: Neuro: Normal sensation in the median nerve distribution of the right hand. Normal sensation to all other digits in the right hand today. Normal sensation in the tips of all digits of the left hand today. No thenar or intrinsic wasting. Good APB muscle firing and good finger cross. Vascular: Capillary refill brisk. ROM: Patient can make a fist and extend all their digits. Skin: Well approximated and well healing incision site noted on the volar right wrist No lacerations or abrasions noted. General: No ecchymosis. No erythema or evidence of infection. Assessment & Plan Assessment & Plan (1) Right carpal tunnel syndrome: Code(s): G56.01 - Carpal tunnel syndrome, right upper limb Category: Medical Plan 1. Status post right carpal tunnel release DOS 09/25/2024 Patient appears to be recovering well postoperatively Patient is educated about the typical recovery course Patient appears to be recovering very well, and requires no further acute follow-up with us postoperatively Patient is educated and worrisome signs and symptoms, and should call us if they experience any of these, including but not limited to redness, swelling, increased pain, and discharge Patient understands this and is amenable to this plan Coding Level of Care Code Est Pt Level 3 (15040) Diagnoses Right carpal tunnel syndrome G56.01
--- OUTSIDE RECORDS SUMMARY | 2025-02-13 08:26 | XMS_ITS | Clinical Summary ---
Author Organization [facility] Facility Address [address] [place] [address], [place] [address] Care Team Providers Care Sales Representative [employer] Name Role Phone Naomi Bains MD Primary [...] Insurance [facility] [place] [id number] [facility] Medicaid [facility] Medicaid Care Teams Sales Representative [employer] Supp[employer] Relationship Specialty Start Date End Date Naomi Bains MD [address] [place] [phone] PCP - General 03/08/20
--- OUTSIDE RECORDS SUMMARY | 2025-02-13 08:26 | XMS_ITS | Clinical Summary ---
Author Organization [facility] Address [address] [place] [phone] Phone Care Team Providers Care Printing Press Machine Operator Name Role Phone Unavailable Primary Care [...] is not the complete legal health record.[facility]
== END 2025-02-13 08:47 | disposition home or self-care (01) ==
LOC: HO.HOS 08:20
PROVIDERS: PCP Physician Assistant
DX: G56.01 Carpal tunnel syndrome, right upper limb (principal)
CPT/HCPCS: 99213

== ENCOUNTER → 2025-02-13 08:19 | Outpatient (BNVA) | payer OTHER, SELFPAY | PROVIDERS: PCP Physician Assistant | DX: R00.2 Palpitations (principal); H54.7 Unspecified visual loss; Z86.73 Personal history of transient ischemic attack (TIA), and cerebral infarction without residual deficits; I10 Essential (primary) hypertension; R07.2 Precordial pain; E89.0 Postprocedural hypothyroidism; G56.01 Carpal tunnel syndrome, right upper limb | CPT/HCPCS: 99212 ==

== ENCOUNTER 2025-02-13 09:01 | Outpatient (AMB) | payer OTHER, SELFPAY ==
--- NOTE | 2025-02-13 09:26 | MHC.OFFVIS ---
Vital Signs 02/13/25 09:29 Height 5 ft 5 in Weight 229 lb 4.492 oz BMI 38.2 BP 130/90 H Blood Pressure Location Lt brachial Position Sitting Pulse 90 Pulse Source Pulse Oximeter Intake Visit Reasons: 6m follow up Intake Note: 6 mth f/up Trading Floor Operator Required: No Accompanied by: Self / Same As Patient Allergies pineapple (PINEAPPLE) Allergy (Severe, Verified 02/10/25 11:24) ANAPHYLAXIS adhesive tape Allergy (Intermediate, Verified 02/10/25 11:24) Blister Iodinated Contrast Media (IV Dye, Iodine Containing) Allergy (Intermediate, Verified 02/10/25 11:24) SOB,RASH levofloxacin (From Levaquin) Allergy (Intermediate, Verified 02/10/25 11:24) swelling/rash oxycodone (From Percocet) Allergy (Intermediate, Verified 02/10/25 11:24) rash/SOB aspirin (ASA) Adverse Reaction (Mild, Verified 02/10/25 11:24) UPSET STOMACH Medication List - Last Reconciled 02/13/25 by YOSSI Jones amlodipine 10 mg PO DAILY atorvastatin (Lipitor) 10 mg PO DAILY Bifidobacterium longum (Align (B.longum)) 1 capsule orally daily; 30 days bisacodyl (Fleet Bisacodyl) 10 mg (30 mL) RI DAILY PRN 30 days budesonide-formoterol 160-4.5 mcg/actuation (Symbicort) 2 puffs inhalation BID cholecalciferol (vitamin D3) (Vitamin D3) 50 mcg PO DAILY cyclobenzaprine 10 mg PO BEDTIME 15 days diclofenac sodium 50 mg PO DAILY 30 days diphenhydramine HCl (Benadryl Allergy) 25 mg orally one tablet this evening and one tablet tomorrow am; docusate sodium 100 mg PO BID famotidine 20 mg PO BEDTIME PRN hydrochlorothiazide 25 mg PO DAILY ipratropium bromide 2 sprays intranasal TID 30 days ipratropium-albuterol 0.5 mg-3 mg(2.5 mg base)/3 mL 3 mL inhalation Q4-6H PRN levothyroxine 200 mcg PO DAILY linaclotide (Linzess) 145 mcg PO QAM 30 days lisinopril 40 mg PO DAILY 90 days lorazepam 1 mg PO ONCE PRN metoclopramide HCl 10 mg PO .Q 8 hrly 30 days metoprolol tartrate 100 mg PO BID 90 days mupirocin 2% 1 appl topical BID 30 days omalizumab (Xolair) 300 mg (2 mL) subcut Q2W omeprazole 40 mg (2 x 20 mg) PO DAILY ondansetron 4 mg PO Q8H PRN 30 days pyridoxine (vitamin B6) 100 mg PO DAILY tamsulosin (Flomax) 0.4 mg PO BEDTIME Ventolin HFA 90 mcg/actuation (albuterol sulfate) 2 puffs inhalation Q4-6H PRN 30 days NS vonoprazan (Voquezna) 20 mg PO DAILY 8 weeks HPI HPI 6m follow up: Details: Gloria is a 54-year-old female with past medical history of obesity, hypertension, hyperlipidemia who has undergone evaluation for chest discomfort and heart palpitations without significant findings who previously reported episodes of brief vision loss and blurred vision. She did undergo a carotid ultrasound and CTA of the head and neck without acute findings. She now presents for follow up. Today she reports issues with daily heart palpitations over the past four months, occurring 2-3 times per day. The episodes feel like a fast, irregular heartbeat that can last from 30 minutes to an hour and are not always associated with stress. During one prolonged episode, she experienced a funny feeling and tingling on her left side and considered going to the emergency room but she layed down and relaxed and her symptoms improved. The patient reports current medical issues, including an upcoming breast surgery for a new finding discovered on an MRI biopsy, which appeared larger and deeper than a previously excised lesion from October. She has a history of breast cancer years ago. Additionally, the patient has an uncontrolled thyroid condition. She says she is currently out of her thyroid medication due to an authorization issue.She has seen Dr Bruner for her vision issues and no diagnosis has been identified as of yet. Her current medications include metoprolol 100 mg twice daily, amlodipine, lisinopril, and atorvastatin. HPI Comments Details: History of Present Illness The patient is a 54 year old female presenting for a follow-up visit for chest discomfort and heart palpitations. She reports new-onset daily palpitations over the past four months, occurring 2-3 times per day. The episodes feel like a fast, irregular heartbeat that can last from 30 minutes to an hour and are not always associated with stress. During one prolonged episode, she experienced a funny feeling and tingling on her left side and considered going to the emergency room. The patient reports a complex medical history, including an upcoming breast surgery for a new finding discovered on an MRI biopsy, which appeared larger and deeper than a previously excised lesion from October. She has a history of breast cancer years ago that resulted in a mastectomy. Additionally, the patient has an uncontrolled thyroid condition contributing to ongoing and worsening vision issues, including blurry vision. She is currently out of her thyroid medication due to an authorization issue. Other comorbidities include fibromyalgia, hypertension, left shoulder issues, a history of carpal tunnel surgery, and new-onset mild leg swelling. Her current medications include metoprolol 100 mg twice daily, amlodipine, lisinopril, and atorvastatin. Past Cardiac History - Hypertension, treated with amlodipine and lisinopril. - Palpitations, previously investigated with a heart monitor that did not document an arrhythmia. - Prior cardiac and carotid testing for vision issues was normal. Results - Previous heart and carotid artery testing was unremarkable. - Prior cardiac monitoring did not capture atrial fibrillation. - Recent breast MRI biopsy revealed a new, deeper lesion. [facility] Medical History Atypical lobular hyperplasia of left breast At high risk for breast cancer Atypical ductal hyperplasia of left breast Migraines Dysphagia Hx of flexible sigmoidoscopy Internal derangement of right shoulder Lump of left breast Chronic constipation Rotator cuff impingement syndrome of left shoulder Colitis Rotator cuff impingement syndrome Lateral epicondylitis of both elbows IBS (irritable bowel syndrome) Tendinopathy of left rotator cuff History of TIA (transient ischemic attack) Hypercholesterolemia Vitamin D deficiency Multinodular thyroid Pancreatic cyst Thyroid nodule GERD (gastroesophageal reflux disease) Hypertension Asthma Kidney stones Fibromyalgia Allergic rhinitis Sciatic nerve pain Ovarian cyst Hypothyroidism Surgical History History of carpal tunnel release (09/25/24) History of arthroscopic surgery of shoulder Hx of eye surgery History of breast lump/mass excision Hx of hemorrhoidectomy Hx of tubal ligation History of esophagogastroduodenoscopy (EGD) History of colonoscopy (~11/16/19) H/O: hysterectomy History of thyroidectomy (~11/2018) History of kidney surgery Hx of bilateral breast reduction surgery Hx of appendectomy History of cholecystectomy (~2003) H/O lithotripsy (04/30/24) Family History Father Family history of high blood pressure History of high cholesterol Mother History of diabetes mellitus Family history of high blood pressure Family history of asthma History of fibromyalgia Liver disease Maternal Grandfather Colon cancer Family/Other Breast cancer Maternal Aunt Breast cancer Family/Other Breast cancer Social History Household Members: Spouse Household Members Other:: daughter Housing: Apartment Are you a primary home health care social worker to a significant other at home: No Do you presently have visiting nurse or other home services: No Alcohol intake: never Patient Tobacco Use Status: Former Tobacco user Tobacco use type: Cigarette Years Smoked: 15 e-Cigarette/Vaping Use: Never Used Second Hand Smoke Exposure: Yes Substance Use Type: Marijuana service: No Current occupational status: disabled Current occupation: right handed Sexual orientation: Straight/Heterosexual Gender identity: Female Cognitive needs: No Hearing needs: No Vision needs: Yes Female Reproductive History Menstrual Age of Menarche: 10 Review of Systems Const All systems reviewed & are unremarkable except as noted in HPI and below Denies chills, Denies fatigue, Denies fever(s), Denies frequent falls, Denies weakness, Denies weight gain and Denies weight loss ENT Denies dizziness Card Denies chest pain, Reports rapid heart rate, Denies leg edema, Denies lightheadedness, Reports palpitations, Denies dyspnea and Denies dyspnea on exertion Resp Denies cough, Denies dyspnea and Denies dyspnea on exertion GI Denies hematochezia Musc Details: fibromylagia, left shoulder discomfort Denies abnormal gait, Denies muscle weakness, Denies numbness, Denies radiating pain into limb and Denies tingling Neuro Denies abnormal gait, Denies dizziness, Denies frequent falls, Denies numbness, Denies tingling and Denies weakness Endo Denies fatigue and Reports palpitations Physical Exam Vital Signs: Last Vital Signs Pulse 90 02/13/25 09:29 BP 130/90 H 02/13/25 09:29 BMI result Body Mass Index 38.2 Const General: cooperative, healthy appearing, comfortable and no acute distress Orientation/consciousness: patient oriented x3 Neck Neck: Yes normal visual inspection and Yes no JVD Resp Effort & Inspection: normal respiratory effort Auscultation: clear to auscultation bilaterally, no rales, no rhonchi and no wheezes Cardio Rate: regular rate Rhythm: regular rhythm Heart sounds: S1 normal heart sound present, S2 normal heart sound present, no gallops, no murmurs and no rubs Neuro General: patient oriented x3 Extrem General: Yes normal to inspection, No no pedal edema and No calf tenderness Psych Appearance: grossly normal Mental Status: mental status grossly normal Speech and movement: Normal speech and movement present Assessment & Plan Assessment & Plan (1) Palpitations: Code(s): R00.2 - Palpitations Category: Medical Plan: Current Reports of intermittent heart palpitations, like her heart is beating fast and irregular. She has been on metoprolol at 100 mg b.i.d. and continues to report symptoms. Holter monitor done on 12/04/2023 for 5 days showed sinus rhythm with average heart rate 93, no significant ectopy seen. Cardiac event monitor 03/10/2024, worn for 14.5 days showed sinus rhythm with frequent sinus tachycardia, average rate 86 beats per minute, no significant arrhythmia. Pulse regular on exam today, clinically in SR. Will recheck holter to assess for arrythmia. There has been no evidence of atrial fibrillation or any other significant arrhythmia. Reviewed good hydration, getting adequate rest, limiting caffeine and anxiety control. (2) Alteration in vision: Code(s): H54.7 - Unspecified visual loss Category: Medical Plan: Reports of brief vision changes, since 10/2023 without known diagnosis. A carotid ultrasound was done on 11/26/2023 showing normal right ICA, minimal, non hemodynamically significant stenosis of the proximal left ICA, 0-49% stenosis. A CTA of the head and neck was done 02/19/2024 showing no acute abnormalities. A cardiac event monitor showed no PAF. Checking holter for current report of palpitations. Continue to follow with Dr Bruner. (3) History of TIA (transient ischemic attack): [place] [facility] [place]-no residual Code(s): Z86.73 - Personal history of transient ischemic attack (TIA), and cerebral infarction without residual deficits Category: Medical Plan: As above (4) Precordial chest pain: Code(s): R07.2 - Precordial pain Category: Medical Plan: Prior Reports of Atypical sounding chest discomfort. Cardiac testing with Echocardiogram done 09/11/2023 showing EF 60-65%, mild LVH, impaired relaxation, no valve abnormalities. Exercise stress echocardiogram done 11/06/2023 with exercise 6 minutes, report of mild chest tightness, no EKG or echo evidence of ischemia. Her EKGs have not shown any signs of ischemia. She has issues with fibromyalgia which may be contributing to periodic precordial chest pain. (5) Hypertension: Code(s): I10 - Essential (primary) hypertension Category: Medical Qualifiers: Hypertension type: essential hypertension Qualified Code(s): I10 - Essential (primary) hypertension Plan: Blood pressure goal less than 130/80. Adequately controlled at this time. Labs 02/10/2025 show potassium 4.1, creatinine 0.69. Continue metoprolol, amlodipine, lisinopril, hydrochlorothiazide. (6) Hypothyroidism: Code(s): E03.9 - Hypothyroidism, unspecified Category: Medical Qualifiers: Hypothyroidism type: postoperative Qualified Code(s): E89.0 - Postprocedural hypothyroidism Plan: Patient tells me she has a history of thyroidectomy. TSH has been elevated as she had been without her medication due to reported prior authorization issues. Instructed to follow with endocrinology. Plan I discussed with the patient my concern that her symptoms of frequent, irregular, and rapid heartbeats could represent atrial fibrillation (AFib), especially given the new daily occurrence. I explained that while her previous monitor was unrevealing, her current symptoms warrant a new investigation. We reviewed the risks of AFib, primarily the increased risk of stroke, and the different treatment paths: if it's AFib, she will need blood thinners, whereas a rapid but normal rhythm may not require medication changes. I have ordered a Holter monitor to capture the rhythm, and Centralized Scheduling will contact her to arrange this. We will discuss the results by phone. I also advised her that the mild leg swelling she is experiencing can be a side effect of amlodipine and recommended salt restriction. I advised her to proceed to the ER for any symptoms concerning for a stroke. We will follow up in the office in six months. Orders: Orders ECG 3 day holter monitor Today R00.2 - Palpitations Patient Instructions: - A new heart monitor test (Holter monitor) has been ordered to figure out the cause of your heart palpitations. The scheduling department will call you to set up this test. - If you ever feel like you are having a stroke, go to the nearest emergency room right away. - To help with the swelling in your legs, try to avoid extra salt in your food. - Continue to take all your current medications as prescribed, including Metoprolol, Amlodipine, Lisinopril, and Atorvastatin. - We will call you with the results of your heart monitor test. - Your next follow-up appointment in the office will be in six months. Patient was informed and verbally consented to the use of an ambient scribe for clinic note documentation during this visit. Visit time spent on chart review, interview, assessment, orders, documentation. Coding Level of Care Code Est Pt Level 4 (10956) Add On Problem Visit Only Diagnoses Palpitations R00.2 Alteration in vision H54.7 History of TIA (transient ischemic attack) Z86.73 Precordial chest pain R07.2 Essential hypertension I10 Hypertension type: essential hypertension Postoperative hypothyroidism E89.0 Hypothyroidism type: postoperative Time Spent (min) 30
--- OUTSIDE RECORDS SUMMARY | 2025-02-13 09:27 | XMS_ITS | Encounter Summary ---
Author Organization [facility] Prior to 12/28/2023 Address [address] [place] [address] Care Team Providers Care Dramatic Critic Name Role Phone Tommy Smith MD Primary Care Provider Joanne vailable Reason for Visit * Reason Comments E-prescribe Rx Request Encounter Details Date Type Department Care Team Description 01/14/2019 Refill Pulmonology - [place] [address] [facility] [address] [place] [phone] Wil Vargas PA-C [address] [facility] [address] [place] [phone] E-prescribe Rx Request Social History Tobacco Use [...] MED LIST AND IS IDENTIFIED BELOW): {MED LIST:40772) Med name: benzonatate (TESSALON) 200 MG capsule Dosage: 200 mg # of tablets: 30 Local pharmacy with request for 30 -day supply Instructions: Take 1 Cap by mouth 3 times daily as needed for Cough for up to 30 days. Did you check the pharmacy information above?: YES Patients current insurance carrier: Payor: [employer] FFS / Plan: [employer] / Product Type: MEDICAID RISK documented in this encounter Plan of Treatment Not on file documented as of this encounter Visit Diagnoses Diagnosis Moderate persistent asthma without complication Unspecified asthma Cough Allergic rhinitis, unspecified seasonality, unspecified trigger documented in this encounter Care Teams Dramatic Critic Relationship Specialty Start Date End Date Tommy Smith MD PCP - General Internal Medicine 06/28/18 documented as of this encounter
--- OUTSIDE RECORDS SUMMARY | 2025-02-13 09:27 | XMS_ITS | Encounter Summary ---
Author Organization [facility] Prior to 12/28/[facility]23 Address [address] [place] [address] Care Team Providers Care Helminthology Teacher Name Role Phone Tommy Smith MD Primary Care Provider Joanne vailable Reason for Visit * Reason Onset Date Comments APPOINTMENT 11/03/2020 Encounter Details Date Type Department Care Team Description 11/03/2020 Telephone Pulmonology [address] [place] [phone] Tommy Smith MD APPOINTMENT Social History Tobacco [...] she is now seeing another DrAntonia [place] so does not wish to schedule an appointment here. documented in this encounter Plan of Treatment Not on file documented as of this encounter Visit Diagnoses Not on filedocumented in this encounter Care Teams Helminthology Teacher Relationship Specialty Start Date End Date Tommy Smith MD PCP - General Internal Medicine 5/3/19 documented as of this encounter
--- OUTSIDE RECORDS SUMMARY | 2025-02-13 09:27 | XMS_ITS | Encounter Summary ---
[facility] to [facility]28[facility]23 Address [address] [place] [address] Care Team Providers Care Teacher Tutor Name Role Phone Tommy Smith MD Primary Care Provider Joanne vailable Reason for Visit * Reason Comments E-prescribe Rx Request Encounter Details Date Type Department Care Team Description 09/14/2020 Refill Pulmonology - [place] [address] [facility] [address] [place] [phone] Nguyen Morrison MD [address] [place] [phone] E-prescribe Rx Request Social History Tobacco Use [...] trigger documented in this encounter Care Teams Teacher Tutor Relationship Specialty Start Date End Date Tommy Smith MD PCP - General Internal Medicine 06/28/18 documented as of this encounter
--- OUTSIDE RECORDS SUMMARY | 2025-02-13 09:27 | XMS_ITS | Encounter Summary ---
Author Organization [facility] Prior to 12/28/2023 Address [address] [place] [address] Care Team Providers Care Motor Adjuster Name Role Phone Tommy Smith MD Primary Care Provider Joanne vailable Reason for Visit * Reason Onset Date Comments APPOINTMENT 02/05/2019 Encounter Details Date Type Department Care Team Description 02/05/2019 Telephone Internal Medicine - [address], [address] [place] [address] Tommy Smith MD APPOINTMENT Social History Tobacco [...] time. Patient thought appt was with Percy Vargas.Cynthia.A. She was unaware he left. documented in this encounter Plan of Treatment Not on file documented as of this encounter Visit Diagnoses Not on filedocumented in this encounter Care Teams Motor Adjuster Relationship Specialty Start Date End Date Tommy Smith MD PCP - General Internal Medicine 06/28/18 documented as of this encounter
--- OUTSIDE RECORDS SUMMARY | 2025-02-13 09:27 | XMS_ITS | Encounter Summary ---
Author Organization [facility] [facility] Prior to 12/28/2023 Address [address] [place] [address] Care Team Providers Care College Or University Business Manager Name Role Phone Tommy Smith MD Primary Care Provider Joanne vailable Reason for Visit * Reason Comments E-prescribe Rx Request Encounter Details Date Type Department Care Team Description 10/07/2020 Refill Pulmonology - [place] [address] [facility] [address] [place] [phone] Nguyen Morrison MD [address] [place] [phone] E-prescribe Rx Request Social History Tobacco Use [...] trigger documented in this encounter Care Teams College Or University Business Manager Relationship Specialty Start Date End Date Tommy Smith MD PCP - General Internal Medicine 06/28/18 documented as of this encounter
--- OUTSIDE RECORDS SUMMARY | 2025-02-13 09:27 | XMS_ITS | Encounter Summary ---
[facility] Organization [facility] 12[facility]28/[facility]23 Address [address] [place] [address] Care Team Providers Care Garment Inspector Name Role Phone Tommy Smith MD Primary Care Provider Joanne vailable Reason for Visit * Reason Comments E-prescribe Rx Request Encounter Details Date Type Department Care Team Description 08/11/2019 Refill Pulmonology - [place] [address] [facility] [address] [place] [phone] Wil Vargas PA-C [address] [facility] [address] [place] [phone] E-prescribe Rx Request Social History Tobacco Use [...] NO Patients current insurance carrier is: Payor: [employer] FFS / Plan: [employer] / Product Type: MEDICAID RISK * Telephone [...] trigger documented in this encounter Care Teams Garment Inspector Relationship Specialty Start Date End Date Tommy Smith MD PCP - General Internal Medicine 06/28/18 documented as of this encounter
[2025-02-13 09:29] VITALS: BP 130/90; PULSE 90; BMI 38.2
== END 2025-02-13 10:00 | disposition home or self-care (01) ==
LOC: HO.HCS 09:02
PROVIDERS: PCP Internal Medicine; Visit Provider Nurse Practitioner Family
DX: R00.2 Palpitations (principal); H54.7 Unspecified visual loss; Z86.73 Personal history of transient ischemic attack (TIA), and cerebral infarction without residual deficits; R07.2 Precordial pain; I10 Essential (primary) hypertension; E89.0 Postprocedural hypothyroidism
CPT/HCPCS: 99214